=== PATIENT | female | born 1965 | race Caucasian/White ===

== ENCOUNTER 2022-10-06 09:27 | Outpatient (OUT) | payer MEDICARE, MEDICAID, SELFPAY ==
[2022-10-06 10:27] LABS: Bilirubin Urine NEGATIVE (NEGATIVE); Blood Urine NEGATIVE (NEGATIVE); Clarity Urine CLEAR (CLEAR); Color Urine LT. YELLOW (YELLOW); Glucose Urine UA >=1000 mg/dL (NEGATIVE); Ketones Urine NEGATIVE (NEGATIVE); Leukocyte Esterase Urine NEGATIVE (NEGATIVE); Nitrite Urine NEGATIVE (NEGATIVE); Protein Urine NEGATIVE (NEG/TRACE); Urobilinogen Urine 0.2 EU/dL (0.2-1.0)
[2022-10-06 11:05] LABS: RBC Urine 0-2 #/HPF (0-2); WBC Urine 0-2 #/HPF (NONE SEEN)
[2022-10-06 11:06] LABS: Bacteria Urine TRACE #/HPF (NONE SEEN); Cast Seen? NONE SEEN #/LPF (NONE SEEN); Crystals Seen? None Seen #/HPF (None Seen); Mucus Urine NONE SEEN (NONE SEEN); Squamous Epithelial Cell Urine FEW #/LPF (NONE/RARE); Urine Culture Indicated NO
[2022-10-06 11:13] LABS: Microalbumin Urine Random <1.3 mg/dL (<=30.0)
[2022-10-06 12:05] LABS: Alanine Aminotransferase 36 U/L (14-59); Albumin Globulin Ratio 0.9; Albumin Level 3.3 g/dL (3.4-5.0); Alkaline Phosphatase 181 U/L (46-116); Anion Gap 7.9; Aspartate Amino Transferase 15 U/L (15-37); BUN Creatinine Ratio 11.2; Bilirubin Total 0.3 mg/dL (0.2-1.0); Calcium 8.8 mg/dL (8.5-10.1); Carbon Dioxide 32.8 mmol/L (21.0-32.0); Chloride 97 mmol/L (98-107); Cholesterol 89 mg/dL (<=200); Estimated GFR (African America >60 (>=60); Estimated GFR (Non-African Ame 53 (>=60); Globulin 3.7 g/dL; Glucose 234 mg/dL (74-106); HDL Cholesterol 30 mg/dL (40-60); Potassium 3.7 mmol/L (3.5-5.1); Sodium 134 mmol/L (136-145); Triglycerides 194 mg/dL (<=150); VLDL CHOLESTEROL 38.8 mg/dL
[2022-10-06 12:08] LABS: Estimated Average Glucose 160 mg/dL; Glycohemoglobin A1C 7.2 % (4.5-6.2)
== END 2022-10-06 09:28 | disposition home or self-care (01) ==
LOC: LAB 09:36
PROVIDERS: PCP Nurse Practitioner; Visit Provider Nurse Practitioner
DX: E11.9 Type 2 diabetes mellitus without complications (principal)
CPT/HCPCS: 36415; 80053; 80061; 81001; 82043; 83036

== ENCOUNTER 2022-11-19 10:32 | Outpatient (OUT) | payer MEDICARE, MEDICAID, SELFPAY ==
--- NOTE | 2022-11-19 10:37 | MM_ITS ---
Patient: ELMER ELLIS Exam Date: 11/19/2022 : 1965 Gender:F Ordering : CARLO Borrego [employer] Admission #: [id number] Family : Order #: [id number] CLICK HERE TO VIEW EXAM RADIOLOGY REPORT PROCEDURE: MM TOMOSYNTHESIS SCREENING BI COMPARISON: MG MAMM SHEEBA DIAG W CAD DIG, 04/13/2013. INDICATIONS: Screening Calculator Name NCI Breast Cancer Risk Assessment Tool 5 Year Breast Cancer Risk 1.00% Lifetime Breast Cancer Risk 6.50% Personal Breast Cancer No Personal Ovarian Cancer No Treatments None Family Cancers Sister with lung cancer at age 48. LOCATION: [facility] BREAST COMPOSITION: Scattered areas fibroglandular density. FINDINGS: DIAGNOSTIC CATEGORY 2--BENIGN FINDING: RIGHT BREAST: No significant suspicious finding. Scattered benign-appearing calcifications are present. No significant change has occurred. LEFT BREAST: No significant suspicious finding. Scattered benign-appearing calcifications are present. No significant change has occurred. RECOMMENDATIONS: ROUTINE MAMMOGRAM AND CLINICAL EVALUATION IN 12 MONTHS. PLEASE NOTE: A NORMAL MAMMOGRAM DOES NOT EXCLUDE THE POSSIBILITY OF BREAST CANCER. A CLINICALLY SUSPICIOUS PALPABLE LUMP SHOULD BE BIOPSIED. Dictated by: Vishal Ashton M.D. on 11/19/2022 at 13:08 Approved by: Vishal Ashton M.D. on 11/19/2022 at 13:10
== END 2022-11-19 10:33 | disposition home or self-care (01) ==
PROVIDERS: PCP Nurse Practitioner; Visit Provider Nurse Practitioner
DX: Z12.31 Encounter for screening mammogram for malignant neoplasm of breast (principal); Z80.1 Family history of malignant neoplasm of trachea, bronchus and lung
CPT/HCPCS: 77063; 77067

== ENCOUNTER 2023-01-10 10:23 | Outpatient (OUT) | payer MEDICARE, MEDICAID, SELFPAY ==
[2023-01-10 10:56] LABS: Estimated Average Glucose 192 mg/dL; Glycohemoglobin A1C 8.3 % (4.5-6.2)
== END 2023-01-10 10:24 | disposition home or self-care (01) ==
LOC: LAB 10:25
PROVIDERS: PCP Nurse Practitioner; Visit Provider Nurse Practitioner
DX: E11.69 Type 2 diabetes mellitus with other specified complication (principal)
CPT/HCPCS: 36415; 83036

== ENCOUNTER 2023-07-10 15:52 | Emergency (ER) | payer MEDICARE, MEDICAID, SELFPAY ==
[2023-07-10 15:59] VITALS: BP 119/81; PULSE 72; TEMP 36.8; O2SAT 97; BMI 44.6
--- NOTE | 2023-07-10 16:24 | XR_ITS ---
The [address] [address] Patient Name: ELEMR ELLIS MRN: [id number] date: 1965 Sex: F Assigned Patient Location: ER Current Patient Location: ER Accession/Order Number: [id number] Exam Date: 07/10/2023 16:30 Report Date: 07/10/2023 17:32 At the request of: THEE MIKE Procedure: XR ankle RT min 3V EXAM: XR ankle RT min 3V HISTORY: pain COMPARISON: None. TECHNIQUE: AP, oblique, lateral x-ray right ankle FINDINGS: No fracture noted. Symmetric mortise. Mild degenerative spurring around the ankle, prominent posterior and plantar calcaneal spurs. Subcutaneous edema. No definite joint effusion. Multiple joint spurring in the mid foot. XR/XR ankle RT min 3V IMPRESSION: Diffuse edema. Degenerative changes. No evidence of fracture Electronically authenticated by: AFSHAN HOWARD Date: 07/10/2023 17:32
--- OUTSIDE RECORDS SUMMARY | 2023-07-10 16:29 | XMS_ITS | CCD ---
Author Organization [facility] Care Team Providers Care Compounding Scaler Name Role Phone Dawit Ba Primary Care Physician Kittanning Sr., Dawit Aviles Primary Care Provider Kittanning Sr., Dawit Stefan Primary Care Provider SWANZEY SR[facility] HOUSE SR, DAWIT [facility] Care Unavai labLILLY Lennon Attending Unavailable TONY, LILLY Attending Unavailable SWANZEY SR, DAWIT [facility] Primary Care Unavai lable SWANZEY SR, [facility] Care Unavai labLILLY Lennon Attending Unavailable MD Jluis ROBLEDO Attending Unavailable Kittanning, Dawit Hong Referring Unavail able MD Jluis ROBLEDO Attending Unavailable Kittanning Sr., Dawit Aviles Primary Care Provider Mejia, DO Pastor Primary Care Provider DO Bebo Sims Attending Provider MEJIA, DR PASTOR Attending Unavailable SWANZEY, DR PASTOR Consulting Unavailable SWANZEY, DR PASTOR Primary Care Unavailable SWANZEY, DR PASTOR Admitting Unavailable SWANZEY, DR PASTOR Attending Unavailable SWANZEY, DR DAWIT Brunner Unavailable SWANZEY, DR PASTOR Primary Care Unavailable SWANZEY, DR PASTOR Admitting Unavailable SWANZEY, DR PASTOR Primary Care Unavailable VENKAT ., DR KING Attending Unavailable VENKAT ., DR KING Consulting Unavailable VENKAT ., DR KING Admitting Unavailable MARIO, DR MICHOACANO Jcainto Consulting Unavailable SWANZEY, DR PASTRO Attending Unavailable HOUSE, DR PASTOR Primary Care Unavailable SWANZEY, DR PASTOR Admitting Unavailable MALIK NI Attending Unavailable MOSAL, MALIK Attending Unavailable Ludin Blanchard MD Primary Care Provider Salima M[place] OR GLACIER GUIDE, Jenny Unavailable DO Dawit Ba Referring Provider [phone] CJ Brown Attending Provider Jenny Borrego Primary Care Provider [phone] Jenny Borrego Attending Provider [phone] House Sr., Dawit US Primary Care Prov ider House Sr., Dawit US Primary Care Provider LEX PICKENS Attending Unavailable HOUSE SR, DAWIT Hong Primary Care Unavailable LEX PICKENS Referring Unavailable HOUSE SR, DAWIT Hong Primary Care Unavailable LEX PICKENS Attending Unavailable HOUSE SR, DAWIT Hong Primary Care Unavailable LEX PICKENS Referring Unavailable HOUSE SR, DAWIT Hong Primary Care Unavailable JENNY BORREGO Attending Unavailable APLING, WALESKA Mccray Attending Unavailable APLING, WALESKA Mccray Attending Unavailable APLING, WALESKA B Referring Unavailable APLING, WALESKA B Referring Unavailable JENNY BORREGO Attending Unavailable SALIMA, JENNY Attending Unavailable Joanne Brown Attending Unavail able Jenny Borrego Primary Care Unavailable Dawit Ba Referring Unavailable Joanne Brown Admitting Unavail able Allergies Allergy Classification Reported Allergen(s) Allergy Type Date of Onset Reaction(s) Facility (1 source) Gluten Drug allergy (disorder) [facility] (1 source) Wheat preparation Drug Allergy [facility] (1 source) Misc-Food; Translations: [Misc-Food] Food allergy (disorder) [facility] Medications Current Medications Medication Drug Class(es) Dates Sig (Normalized) Sig (Original) acetaminophen 325 mg / HYDROcodone bitartrate 5 mg oral tablet (18 sources) Opioid Agonist take 1 tablet by tyrese th every eight hours as needed HYDROcodone-Acetami nophen 5-300 mg tab Take 1 tablet by mouth every 8 hours as needed for pain. 0 Active take 1-2 tablets by mouth once daily at bedtime as needed HYDROcodone-acetaminophen (NORCO) 5-325 mg per tablet hydrocodone 5 mg-acetaminophen 325 mg tablet TAKE 1 TO 2 TABLETS BY MOUTH EVERY DAY AT BEDTIME NEEDED 0 Active Comment on above: hydrocodone 5 mg-roxanne taminophen 325 mg tablet TAKE 1 TO 2 TABLETS BY MOUTH EVERY DAY AT BEDTIME NEEDED Take 1 tablet by tyrese th every 8 hours as needed for pain. amoxicillin 875 mg / clavulanate 125 mg oral tablet (1 source) Penicillin-class Antibacterial Start: 04-05-19 End: 04-15-19 take 1 tablet by mouth in the morning amoxicillin-clavu lanate (Augmentin) 875-125 MG tablet Indications: Acute non-recurrent sinusitis of other sinus Take 1 tablet (875 mg) by mouth in the morning and 1 tablet (875 mg) before bedtime. Do all this for 10 days. Take with food. 20 tablet 0 04/05/2023 04/15/2023 Active aspirin 81 mg delayed release oral tablet (6 sources) Platelet Aggregation Inhibitor, Nonsteroidal Anti-inflammatory Drug Start: 07-28-19 take 1 mg by mouth once daily aspirin 81 mg Oral EC Tab mg tab(s), Oral, Daily, Refills(s) 0 Start Date: 07/27/21 Status: Ordered Start: 07-27-2021 take 1 mg by mouth once daily aspirin 81 mg Oral EC Tab mg tab(s), Oral, Daily, Refills(s) 0 Start Date: 07/27/21 Status: Ordered ASPIRIN 81 MG ch ewable tablet Aspir-81 0 Active atorvastatin 80 mg oral tablet (17 sources) HMG-CoA Reductase Inhibitor Start: 07-26-2021 take 1 tablet by mouth once daily atorvastatin (LIPITOR) 80 mg tablet Take 80 mg by mouth once daily. 0 07/26/2021 Active Comment on above: Take 80 mg by mouth once daily. Centrum Silver (2 sources) Start: 07-27-2021 Centrum Silver Oral, Daily, Refill(s) 0 Start Date: 07/27/21 Status: Ordered cholecalciferol 0.125 mg oral tablet (9 sources) Vitamin D Start: 07-27-2021 cholecalciferol (VITAMIN D3) 5,000 unit tab Vitamin D3 Refills(s) 0 Start Date: 07/27/21 Status: Ordered 0 07/27/2021 Active Comment on above: Vitamin D3 Refills(s ) 0 Start Date: 07/27/21 Status: Ordered cilostazol 100 mg oral tablet (4 sources) Phosphodiesterase 3 Inhibitor take 1 tablet by mouth twice daily cilostazol (Pletal) 100 MG tablet TAKE 1 TABLET BY MOUTH TWICE A DAY DIRECTED Oral for 90 0 Active clopidogrel 75 mg oral tablet (18 sources) P2Y12 Platelet Inhibitor Start: 07-27-2021 End: 06-22-2023 take 1 tablet by mouth once daily clopidogrel (PLAVIX) 75 mg tablet clopidogrel 75 mg tablet TAKE 1 TABLET BY MOUTH EVERY DAY 0 07/27/2021 Active Comment on above: clopidogrel 75 mg ta blet TAKE 1 TABLET BY MOUTH EVERY DAY Continuous Blood Gluc Sensor (FreeStyle Joelle 2 Sensor) misc (4 sources) Start: 09-23-2022 Continuous Blood Gluc Sensor (FreeStyle Joelle 2 Sensor) [facility]LOOD SUGAR 4 TIMES DAILY 0 09/23/2022 Active dapagliflozin 10 mg oral tablet (4 sources) Sodium-Glucose Cotransporter 2 Inhibitor Start: 02-25-2023 take 1 tablet by mouth in the morning dapagliflozin (Farxiga) 10 MG Indications: Type 2 diabetes mellitus with diabetic neuropathy, with long-term current use of insulin (CMS/HCC) Take 1 tablet (10 mg) by mouth in the morning. 30 tablet 2 02/25/2023 Active diclofenac potassium 50 mg oral tablet (6 sources) Nonsteroidal Anti-inflammatory Drug Start: 06-02-2022 take 50 mg by mouth twice daily Diclofenac Potassium Active 50 MG PO Twice daily June 01, 2022 11:00pm Diclofenac 18 MG capsule Diclofenac 0 Active DULoxetine 60 mg delayed release oral capsule (19 sources) Serotonin and Norepinephrine Reuptake Inhibitor Start: 03-01-2023 take 1 capsule by mouth once daily in the morning DULoxetine (Cymbalta) [address] capsule Indications: Type 2 diabetes mellitus with diabetic neuropathy, unspecified (CMS/HCC) , Diabetic neuropathy, painful (CMS/HCC) , Anxiety and depression (CMS/HCC) Take 1 capsule (30 mg) by mouth in the morning. Total dose is 90mg daily. 90 capsule 1 03/01/2023 Active Start: 07-27-2021 End: 05-30-2023 take 1 capsule by mouth once daily DULoxetine (CYMBALTA) 60 mg capsule duloxetine 60 mg capsule,delayed release TAKE 1 CAPSULE BY MOUTH EVERY DAY 0 07/27/2021 Active Comment on above: duloxetine 60 mg cap tammy,delayed release TAKE 1 CAPSULE BY MOUTH EVERY DAY duloxetine 60 mg Cap-DR (2 sources) Start: 06-06-20 22 take 1 mg by mouth once daily duloxetine 60 mg Cap-DR mg, Oral, Daily, Refills(s) 0 Start Date: 07/27/21 Status: Ordered esomeprazole mag/glycerin (ESOMEP-EZS ORAL) (9 sources) esomeprazole mag/glycerin (ESOMEP-EZS ORAL) Take by mouth. 0 Active Comment on above: Take by mouth. ferrous sulfate 325 mg oral tablet (6 sources) Start: 06-03-19 take 325 mg by mouth once daily Ferrous Sulfate Active 325 MG PO Daily June 01, 2022 11:00pm Luz (13 sources) Histamine-1 Receptor Antagonist Start: 07-28-19 Luz Oral, Refills(s) 0 Start Date: 07/27/21 Status: Ordered take 1 tablet by tyrese th once daily fexofenadine (LUZ) 180 mg tablet fexofenadine 180 mg tablet TAKE 1 TABLET BY MOUTH EVERY DAY 0 Active End: 03-24-2023 fexofenadine (Luz Allerg y) 60 MG tablet Luz 0 03/24/2023 Discontinued (Therapy completed) Comment on above: fexofenadine 180 mg tablet TAKE 1 TABLET BY MOUTH EVERY DAY furosemide 40 mg oral tablet (17 sources) Loop Diuretic Start: 2 furosemide (LASIX) 40 mg tablet furosemide 40 mg tablet TAKE 1 AND 1/2 TABLETS BY MOUTH DAILY 0 07/27/2021 Active Comment on above: furosemide 40 mg tab let TAKE 1 AND 1/2 TABLETS BY MOUTH DAILY gabapentin 800 mg oral tablet (17 sources) Anti-epileptic Agent Start: 4 End: 4 take 1 tablet by mouth every eight hours gabapentin (Neurontin) 800 MG tablet Indications: Type 2 diabetes mellitus with diabetic neuropathy, unspecified (CMS/HCC) , Diabetic neuropathy, painful (CMS/HCC) Take 1 tablet (800 mg) by mouth every 8 (eight) hours 270 tablet 1 03/01/2023 05/30/2023 Active Start: 06-02-2022 take 600 mg by mouth twice fercho ly Gabapentin Active 600 MG PO Twice daily June 01, 2022 11:00pm Start: 08-25-2021 take 2 capsules by out twice daily gabapentin (NEURONTIN) 300 mg capsule Take 600 mg by mouth twice daily. 0 08/25/2021 Active Start: 07-27-2021 take 1 capsule by mo [facility] twice daily gabapentin 300 mg Cap 300 mg = 1 cap(s), Oral, BID, # 60 cap(s), Refills(s) 0 Start Date: 07/27/21 Status: Ordered Comment on above: Take 600 mg by mouth twice daily. Humalog 75/25 Injection-Insulin (1 source) Start: 07-27-2021 Humalog 75/25 Injection-Insuli n unit(s), SubCutaneous, BIDAC, Refills(s) 0 Start Date: 07/27/21 Status: Ordered Insulin Aspart Prot & Aspart (NOVOLOG 70/30 FLEXPEN RELION SC) (4 sources) inject 75 [IU] by subcutaneous injection in the morning Insulin Aspart Prot & Aspart (NOVOLOG 70/30 FLEXPEN RELION SC) Inject 75 Units under the skin in the morning and 75 Units before bedtime. 0 Active 3 ml insulin aspart protamine, human 70 unt/ml / insulin aspart, human 30 unt/ml pen injector (2 sources) Insulin Analog Start: 06-02-2022 Insulin Asp Prt-Insulin Aspart (Novolog Mix 70-30flexpen U-100) 100 unit/mL (70-30) insulin pen Active 70 UNIT SUBCUT Twice daily June 01, 2022 11:00pm insulin lispro 25 unt/ml / insulin lispro protamine, human 75 unt/ml injectable suspension (12 sources) Insulin Analog Start: 07-27-2021 End: 03-24-2023 insulin 75/25 lispro protamine/lispro units/mL (HUMALOG MIX 75-25,U-100,INSU LN) 100 units/mL susp as directed. 0 07/27/2021 Active Start: 07-27-2021 Humalog 75/25 Injection-Insulin unit(s), SubCutaneous, BIDAC, Refills(s) 0 Start Date: 07/27/21 Status: Ordered Comment on above: as directed. metFORMIN hydrochloride 1000 mg oral tablet (11 sources) Biguanide Start: take 1 tablet by mouth twice daily metFORMIN (GLUCOPHAGE) 1,000 mg tablet Take 1,000 mg by mouth twice daily. 0 09/13/2021 Active Comment on above: Take 1,000 mg by tyrese th twice daily. methocarbamol 500 mg oral tablet (15 sources) Muscle Relaxant Start: take 500 mg by mouth twice daily Methocarbamol Active 500 MG PO Twice daily June 01, 2022 11:00pm Start: 07-27-2021 take 1 mg by mouth f our times daily Robaxin 500 mg Tab mg tab(s), Oral, QID, Refills(s) 0 Start Date: 07/27/21 Status: Ordered End: 03-24-2023 methocarbamol (Robaxin) 500 MG tablet 1 (one) time each day at the same time. 0 03/24/2023 Discontinued (Therapy completed) Comment on above: Take 500 mg by mouth four times daily. 24 hr metoprolol succinate 25 mg extended release oral tablet (20 sources) beta-Adrenergic Zhao Start: 01-19-2023 take 1 tablet by mouth every twenty-four hours in the morning metoprolol succinate XL (Toprol-XL) 25 MG 24 hr tablet Take 25 mg by mouth in the morning. 0 01/19/2023 Active Start: 07-27-2021 End: 06-16-2022 take 1 tablet by mouth once daily metoprolol succinate ER (TOPROL XL) 25 mg 24 hr tablet metoprolol succinate ER 25 mg tablet,extended release 24 hr TAKE 1 TABLET BY MOUTH DAILY (ALONG WITH THE 50MG TABLET FOR 75 MG TOTAL DAILY) 0 07/27/2021 Active Start: 07-27-2021 take 1 tablet by tyrese once daily metoprolol succinate ER (TOPROL XL) 50 mg 24 hr tablet metoprolol succinate ER 50 mg tablet,extended release 24 hr TAKE 1 TABLET BY MOUTH EVERY DAY 0 07/27/2021 Active Start: 07-27-2021 take 1 tablet by tyrese th once daily metoprolol succinate ER (TOPROL XL) 50 mg 24 hr tablet metoprolol succinate ER 50 mg tablet,extended release 24 hr TAKE 1 TABLET BY MOUTH EVERY DAY 0 07/27/2021 Active Start: 07-27-2021 take 1 tablet by tyrese th once daily metoprolol succinate ER (TOPROL XL) 25 mg 24 hr tablet metoprolol succinate ER 25 mg tablet,extended release 24 hr TAKE 1 TABLET BY MOUTH DAILY (ALONG WITH THE 50MG TABLET FOR 75 MG TOTAL DAILY) 0 07/27/2021 Active End: 03-24-2023 take 1 tablet by mouth in the morning metoprolol tartrate (Lopressor) 50 MG tablet Take 50 mg by mouth in the morning. 0 03/24/2023 Discontinued (Therapy completed) Comment on above: metoprolol succinate ER 25 mg tablet,extended release 24 hr TAKE 1 TABLET BY MOUTH DAILY (ALONG WITH THE 50MG TABLET FOR 75 MG TOTAL DAILY) metoprolol succinate ER 50 mg tablet,extended release 24 hr TAKE 1 TABLET BY MOUTH EVERY DAY Multiple Vitamins-Minerals (Centrum Silver 50+Women) tablet (4 sources) Multiple Vitamins-Minerals (Centrum Silver 50+Women) tablet Orally 0 Active odnjmcwk-tyc-aqex-FA- lutein (CENTRUM SILVER WOMEN) 8 mg iron-400 mcg-300 mcg tab (9 sources) zbtdtpfu-mmx-jgx n-FA -lutein (CENTRUM SILVER WOMEN) 8 mg iron-400 mcg-300 mcg tab MV with Tmd-Illiypzi-Onpnfl (CENTRUM SILVER) 0.4 mg-300 mcg- 250 mcg tab (9 sources) Start: 07-28-19 22 MV with Onq-Zvcnaovh-Fodsfu (CENTRUM SILVER) 0.4 mg-300 mcg- 250 mcg tab Take by mouth. 0 07/27/2021 Active Comment on above: Take by mouth. pantoprazole 40 mg delayed release oral tablet (5 sources) Proton Pump Inhibitor Start: 06-17-19 23 take 40 mg by mouth once daily Pantoprazole Active 40 MG PO Daily June 15, 2022 11:00pm rivaroxaban 10 mg oral tablet (17 sources) Factor Xa Inhibitor Start: 07-28-19 22 rivaroxaban (XARELTO) 10 mg tablet Xarelto 10 mg tablet 0 07/27/2021 Active Comment on above: Xarelto 10 mg tablet Vitamin D3 (2 sources) Start: 07-28-19 22 Vitamin D3 Refills(s) 0 Start Date: 07/27/21 Status: Ordered Completed/Discontinued Medications Medication Drug Class(es) Dates Sig (Normalized) Sig (Original) acetaminophen 300 mg / codeine phosphate 30 mg oral tablet (2 sources) Opioid Agonist End: 03-24-2023 acetaminophen-codein e (TYLENOL/CODEINE #3) 300-30 MG tablet every 6 (six) hours. 0 03/24/2023 Discontinued (Therapy completed) fluconazole 150 mg oral tablet (2 sources) Azole Antifungal Start: 02-15-2023 End: 03-24-2023 fluconazole (Diflucan) 150 MG tablet Indications: Antibiotic-induced yeast infection One time dose , then repeat again in 3 days 2 tablet 0 02/15/2023 03/24/2023 Discontinued (Therapy completed) insulin isophane, human 70 unt/ml / insulin, regular, human 30 unt/ml injectable suspension (2 sources) Insulin End: 03-24-2023 insulin NPH-insulin regular (HumuLIN 70/30) (70-30) 100 UNIT/ML injection Subcutaneous 0 03/24/2023 Discontinued (Therapy completed) iv contrast (will be provided with radiology test) (4 sources) Start: 10-16-2022 End: 10-17-2022 iv contrast (will be provided with radiology test) Indications: Renal mass, right CT kidney wow Inject, intravenously, once for 1 dose.No IV access, insert saline lock prior to the beginning of sedation, infusion, injection of imaging exam. Discontinue saline lock post exam. If Pt. has a central line or IVAD, may access for administration according to line specific nursing protocol. Once exam is complete flush line and de-access according to line specific nursing protocol in the CT contrast administration guidelines link. 1 Each 0 10/16/2022 10/17/2022 Start: 10-16-2022 End: 10-17-2022 iv contrast (will be provide d with radiology test) Indications: Renal mass, right CT kidney wow Inject, intravenously, once for 1 dose.No IV access, insert saline lock prior to the beginning of sedation, infusion, injection of imaging exam. Discontinue saline lock post exam. If Pt. has a central line or IVAD, may access for administration according to line specific nursing protocol. Once exam is complete flush line and de-access according to line specific nursing protocol in the CT contrast administration guidelines link. 1 Each 0 10/16/2022 10/17/2022 Active Start: 04-09-2022 End: 04-10-2022 iv contrast (will be provide d with radiology test) CT kidney wow Inject, intravenously, once for 1 dose.No IV access, insert saline lock prior to the beginning of sedation, infusion, injection of imaging exam. Discontinue saline lock post exam. If Pt. has a central line or IVAD, may access for administration according to line specific nursing protocol. Once exam is complete flush line and de-access according to line specific nursing protocol in the CT contrast administration guidelines link. 1 Each 0 04/09/2022 04/10/2022 Start: 03-16-2022 End: 03-17-2022 iv contrast (will be provide d with radiology test) CT kidney wow Inject, intravenously, once for 1 dose.No IV access, insert saline lock prior to the beginning of sedation, infusion, injection of imaging exam. Discontinue saline lock post exam. If Pt. has a central line or IVAD, may access for administration according to line specific nursing protocol. Once exam is complete flush line and de-access according to line specific nursing protocol in the CT contrast administration guidelines link. 1 Each 0 03/16/2022 03/17/2022 Comment on above: CT kidney wow Inject , intravenously, once for 1 dose.No IV access, insert saline lock prior to the beginning of sedation, infusion, injection of imaging exam. Discontinue saline lock post exam. If Pt. has a central line or IVAD, may access for administration according to line specific nursing protocol. Once exam is complete flush line and de-access according to line specific nursing protocol in the CT contrast administration guidelines link. sucralfate 1000 mg oral tablet (4 sources) Aluminum Complex Start: 06-03-19 23 End: 03-24-19 24 take 1 g by mouth at bedtime Sucralfate Discontinued 1 GM PO before meals and at bedtime June 01, 2022 11:00pm June 16, 2022 8:43am Problems Active Problems Problem Classification Problem Date Documented Da te Episodic/Chronic Allergic reactions (4 sources) Allergic condition; Translations: [Allergy, unspecified, initial encounter] Onset: 3 02-02-2023 Episodic Anxiety disorders (4 sources) Mixed anxiety and depressive disorder; Translations: [Anxiety disorder, unspecified] Onset: 3 02-02-2023 Chronic Biliary tract disease (6 sources) Gallstone; Translations: [Calculus of gallbladder without cholecystitis without obstruction] Onset: 3 07-27-2021 Episodic Cancer of kidney and renal pelvis (6 sources) Malignant tumor of kidney; Translations: [Malignant neoplasm of unspecified kidney, except renal pelvis] Onset: 3 03-24-2023 Chronic Chronic obstructive pulmonary disease and bronchiectasis (8 sources) Chronic bronchitis; Translations: [Unspecified chronic bronchitis] Onset: 3 02-02-2023 Chronic Coagulation and hemorrhagic disorders (11 sources) Factor V Leiden mutation; Translations: [Activated protein C resistance] Onset: 3 Chronic Coronary atherosclerosis and other heart disease (20 sources) Coronary arteriosclerosis; Translations: [Atherosclerotic heart disease of [place] coronary artery without angina pectoris] Onset: 0 Chronic Deficiency and other anemia (1 source) Iron deficiency anemia secondary to blood loss (chronic); Translations: [Iron deficiency anemia secondary to blood loss (chronic)] Onset: 4 Chronic Deficiency and other anemia (1 source) Iron deficiency anemia; Translations: [Iron deficiency anemia, unspecified] 03-09-2023 Episodic Deficiency and other anemia (2 sources) Iron deficiency anemia, unspecified; Translations: [Iron deficiency anemia, unspecified] Onset: 4 04-13-2023 Episodic Diabetes mellitus with complications (20 sources) Type 2 diabetes mellitus with diabetic neuropathy, unspecified; Translations: [Type 2 diabetes mellitus] Onset: 3 Resolved: 4 Chronic Diabetes mellitus without complication (12 sources) Diabetes mellitus; Translations: [Type 2 diabetes mellitus] Onset: 3 07-27-2021 Chronic Disorders of lipid metabolism (10 sources) Mixed hyperlipidemia; Translations: [Hypertriglyceridemia] Onset: 0 Chronic Fluid and electrolyte disorders (1 source) Other disorders of electrolyte and fluid balance, not elsewhere classified; Translations: [OTHER D/O ELECTROLYTE AND FL BAL NEC] Onset: 3 Episodic Fracture of lower limb (4 sources) Closed fracture of left ankle; Translations: [Other fracture of left lower leg, initial encounter for closed fracture] Onset: 2 Episodic Gastrointestinal hemorrhage (2 sources) Gastrointestinal hemorrhage, unspecified; Translations: [Gastrointestinal hemorrhage, unspecified] Onset: 3 Episodic Genitourinary symptoms and ill-defined conditions (8 sources) Retention of urine; Translations: [Retention of urine, unspecified] Onset: 2 Episodic Joint disorders and dislocations; trauma-related (8 sources) Chondromalacia of left patella; Translations: [Chondromalacia patellae, left knee] Onset: 3 10-05-2022 Chronic Joint disorders and dislocations; trauma-related (4 sources) Derangement of right knee; Translations: [Unspecified internal derangement of right knee] Onset: 3 10-05-2022 Chronic Mood disorders (2 sources) Depressive disorder 07-27-2021 Chronic Mycoses (4 sources) Candidiasis of vagina; Translations: [Yeast infection of the vagina] Onset: 3 02-02-2023 Episodic Noninfectious gastroenteritis (4 sources) Noninfective gastroenteritis and colitis, unspecified; Translations: [NONINFECTIVE GE AND COLITIS UNS] Onset: 3 Episodic Osteoarthritis (18 sources) Arthritis; Translations: [Arthritis of left acromioclavicular joint] Onset: 3 07-27-2021 Chronic Osteoporosis (4 sources) Osteoporosis; Translations: [Age-related osteoporosis without current pathological fracture] Onset: 3 02-02-2023 Chronic Other circulatory disease (4 sources) H/O: varicose veins; Translations: [Personal history of other diseases of the circulatory system] Onset: 3 02-02-2023 Episodic Other diseases of kidney and ureters (12 sources) Disorder of kidney and/or ureter; Translations: [Other specified disorders of kidney and ureter] Onset: 2 Chronic Other diseases of kidney and ureters (20 sources) Renal mass; Translations: [Other specified disorders of kidney and ureter] Onset: 3 03-05-2022 Chronic Other diseases of kidney and ureters (6 sources) Other specified disorders of kidney and ureter; Translations: [OTHER SPEC DISORDERS KIDNEY URETER] Onset: 2 Chronic Other gastrointestinal disorders (4 sources) Intestinal malabsorption; Translations: [Intestinal malabsorption, unspecified] Onset: 3 10-05-2022 Chronic Other lower respiratory disease (4 sources) Chronic cough; Translations: [Chronic cough] Onset: 3 02-02-2023 Episodic Other nervous system disorders (4 sources) Neuropathy; Translations: [Polyneuropathy, unspecified] Onset: 3 02-02-2023 Chronic Other nutritional; endocrine; and metabolic disorders (9 sources) Morbid obesity; Translations: [Morbid (severe) obesity due to excess calories] Onset: 3 Chronic Other nutritional; endocrine; and metabolic disorders (2 sources) Morbid (severe) obesity due to excess calories; Translations: [Morbid (severe) obesity due to excess calories] Onset: 3 Chronic Other nutritional; endocrine; and metabolic disorders (4 sources) Severe obesity; Translations: [Morbid (severe) obesity due to excess calories] Onset: 3 02-02-2023 Chronic Other screening for suspected conditions (not mental disorders or infectious disease) (9 sources) Patient encounter status; Translations: [Encounter for screening for other disorder] Onset: 3 10-15-2022 Episodic Other upper respiratory infections (2 sources) Acute sinusitis; Translations: [Other acute sinusitis] Onset: 4 04-05-2023 Episodic Peripheral and visceral atherosclerosis (6 sources) Peripheral vascular disease, unspecified; Translations: [Intermittent claudication] Onset: 0 Chronic Residual codes; unclassified (4 sources) Obstructive sleep apnea syndrome; Translations: [Obstructive sleep apnea (adult) (pediatric)] Onset: 3 02-02-2023 Chronic Residual codes; unclassified (1 source) Family history of malignant neoplasm of kidney; Translations: [Family history of malignant neoplasm of kidney] 10-16-2022 Episodic Residual codes; unclassified (4 sources) Family history of malignant neoplasm of lung; Translations: [Family history of malignant neoplasm of trachea, bronchus and lung] Onset: 3 02-02-2023 Episodic Spondylosis; intervertebral disc disorders; other back problems (1 source) Other intervertebral disc degeneration, lumbosacral region; Translations: [OTH IV DISC DEGEN LUMBOSACRAL RGN] Onset: 2 Chronic Spondylosis; intervertebral disc disorders; other back problems (4 sources) Chronic back pain ; Translations: [Dorsalgia, unspecified] Onset: 3 02-02-2023 Episodic Substance-related disorders (14 sources) Smoker; Translations: [Nicotine dependence, unspecified, uncomplicated] Onset: Resolved: 10-09-2020 Chronic Comment on above: Added secondary to d ocumentation in Social History. Past or Other Problems Problem Classification Problem Date Documented Da te Episodic/Chronic Cancer of kidney and renal pelvis (4 sources) History of malignant neoplasm of retroperitoneum; Translations: [Personal history of other malignant neoplasm of kidney] Onset: 02-02-2023 Resolved: 03-24-2023 03-24-2023 Episodic Cardiac dysrhythmias (4 sources) Intermittent palpitations; Translations: [Palpitations] Onset: 04-27-2019 02-02-2023 Episodic Deficiency and other anemia (4 sources) Anemia; Translations: [Anemia, unspecified] Onset: 10-05-2022 02-02-2023 Episodic Mood disorders (4 sources) Mood disorders Onset: 03-24-2023 03-24-2023 Other diseases of kidney and ureters (4 sources) Kidney disease; Translations: [Disorder of kidney and ureter, unspecified] Onset: 04-19-2022 02-02-2023 Episodic Other lower respiratory disease (4 sources) Dyspnea on exertion; Translations: [Other forms of dyspnea] Onset: 04-27-2019 02-02-2023 Episodic Other upper respiratory infections (4 sources) Sinusitis; Translations: [Chronic sinusitis, unspecified] Onset: 02-02-2023 Resolved: 03-24-2023 03-24-2023 Chronic Phlebitis; thrombophlebitis and thromboembolism (6 sources) Personal history of other venous thrombosis and embolism; Translations: [H/O: Deep vein thrombosis] Onset: 04-27-2019 Episodic Pneumonia (except that caused by tuberculosis or sexually transmitted disease) (4 sources) Pneumonia; Translations: [Pneumonia, unspecified organism] Onset: 02-02-2023 Resolved: 03-24-2023 03-24-2023 Episodic Residual codes; unclassified (6 sources) Tobacco user; Translations: [Tobacco use] Onset: 04-19-2022 03-24-2023 Episodic Results Test Name Value Interpretation Reference Range Facility Complete Blood Count Auto Di ffon 07-07-2023 Basophils (Bld) [#/Vol] 0.1 10*3/uL Normal 0.0-0.2 [facility] Comment on above: Result Comment: PERF ORMED BY: [place] [address] PATHOLOGIST KAIAWHINA KURA KAUPAPA MAORI YU ACOSTA M.D. Performed By: #### C MP, FE and TIBC, CBC, JAQUELINE, [id number] #### [address] #### EPO, METH #### [facility] , Basophils/100 WBC (Bld) 0.6 % Normal . [facility] Comment on above: Performed By: #### C MP, FE and TIBC, CBC, JAQUELINE, [id number] #### [address] #### EPO, METH #### [facility] , Eosinophils (Bld) [#/Vol] 0.2 10*3/uL Normal 0.0-0.45 [facility] Comment on above: Performed By: #### C MP, FE and TIBC, CBC, JAQUELINE, [id number] #### [address] #### EPO, METH #### [facility] , Eosinophils/100 WBC (Bld) 1.8 % Normal . [facility] Comment on above: Performed By: #### C MP, FE and TIBC, CBC, JAQUELINE, [id number] #### [address] #### EPO, METH #### [facility] , Erythrocyte distribution width (RBC) [Ratio] 14.8 % Normal 11.9-15.3 [facility] Comment on above: Performed By: #### C MP, FE and TIBC, CBC, JAQUELINE, [id number] #### [place] [address] [place] #### EPO, METH #### [facility] , Hematocrit (Bld) [Volume fraction] 43.6 % Normal 34.0-46.4 [facility] Comment on above: Performed By: #### C MP, FE and TIBC, CBC, JAQUELINE, [id number] #### [place] [address] [place] #### EPO, METH #### [facility] , Hemoglobin (Bld) [Mass/Vol] 14.4 g/dL Normal 11.8-15.4 [facility] Comment on above: Performed By: #### C MP, FE and TIBC, CBC, JAQUELINE, [id number] #### [address] #### EPO, METH #### [facility] , Lymphocytes (Bld) [#/Vol] 2.7 10*3/uL Normal 1.00-4.8 [facility] Comment on above: Performed By: #### C MP, FE and TIBC, CBC, JAQUELINE, [id number] #### [place] [address] [place] #### EPO, METH #### [facility] , Lymphocytes/100 WBC (Bld) 24.7 % Normal . [facility] Comment on above: Performed By: #### C MP, FE and TIBC, CBC, JAQUELINE, [id number] #### [place] [address] [place] #### EPO, METH #### [facility] , MCH (RBC) [Entitic mass] 30.5 pg Normal 24.7-34.3 [facility] Comment on above: Performed By: #### C MP, FE and TIBC, CBC, JAQUELINE, [id number] #### [place] [address] [place] #### EPO, METH #### [facility] , MCV (RBC) [Entitic vol] 92.1 fL Normal 80-100 [facility] Comment on above: Performed By: #### C MP, FE and TIBC, CBC, JAQUELINE, [id number] #### [address] #### EPO, METH #### [facility] , Mean Corpuscular HGB Conc 33.1 g/dL Normal 32.0-35.0 [facility] Comment on above: Performed By: #### C MP, FE and TIBC, CBC, JAQUELINE, [id number] #### [address] #### EPO, METH #### [facility] , Monocytes (Bld) [#/Vol] 0.6 10*3/uL Normal 0.0-0.8 [facility] Comment on above: Performed By: #### C MP, FE and TIBC, CBC, JAQUELINE, [id number] #### [place] [address] [place] #### EPO, METH #### [facility] , Monocytes/100 WBC (Bld) 5.3 % Normal . [facility] Comment on above: Performed By: #### C MP, FE and TIBC, CBC, JAQUELINE, [id number] #### [address] #### EPO, METH #### [facility] , Neutrophils (Bld) [#/Vol] 7.5 10*3/uL Normal 1.8-7.7 [facility] Comment on above: Performed By: #### C MP, FE and TIBC, CBC, JAQUELINE, [id number] #### [place] [address] [place] #### EPO, METH #### [facility] , Neutrophils/100 WBC (Bld) 67.6 % Normal . [facility] Comment on above: Performed By: #### C MP, FE and TIBC, CBC, JAQUELINE, [id number] #### [address] #### EPO, METH #### [facility] , NRBC% 0.1 /100{WBC} Normal 0-0.5 [facility] Comment on above: Performed By: #### C MP, FE and TIBC, CBC, JAQUELINE, [id number] #### [place] [address] [place] #### EPO, METH #### [facility] , Platelet mean volume (Bld) [Entitic vol] 9.7 fL Normal 6.3-10.7 [facility] Comment on above: Performed By: #### C MP, FE and TIBC, CBC, JAQUELINE, [id number] #### [address] #### EPO, METH #### [facility] , Platelets (Bld) [#/Vol] 169 10*3/uL Normal 150-450 [facility] Comment on above: Performed By: #### C MP, FE and TIBC, CBC, JAQUELINE, [id number] #### [address] #### EPO, METH #### [facility] , RBC (Bld) [#/Vol] 4.73 10*6/uL Normal 3.60-5.00 [facility] Comment on above: Performed By: #### C MP, FE and TIBC, CBC, JAQUELINE, [id number] #### [place] [address] [place] #### EPO, METH #### [facility] , WBC (Bld) [#/Vol] 11.0 10*3/uL Normal 3.8-11.6 [facility] Comment on above: Performed By: #### C MP, FE and TIBC, CBC, JAQUELINE, [id number] #### [address] #### EPO, METH #### [facility] , Comprehensive Metabolic Pane mikki 07-07-2023 Albumin [Mass/Vol] 3.8 g/dL Normal 3.5-5.7 [facility] Comment on above: Performed By: #### C MP, FE and TIBC, CBC, JAQUELINE, [id number] #### [place] [address] [place] #### EPO, METH #### [facility] , Albumin/Globulin [Mass ratio] 1.4 {ratio} Normal [facility] Comment on above: Performed By: #### C MP, FE and TIBC, CBC, JAQUELINE, [id number] #### [address] #### EPO, METH #### [facility] , ALP [Catalytic activity/Vol] 167 U/L High 34-104 [facility] Comment on above: Performed By: #### C MP, FE and TIBC, CBC, JAQUELINE, [id number] #### [address] #### EPO, METH #### [facility] , ALT [Catalytic activity/Vol] 21 U/L Normal 7-52 [facility] Comment on above: Performed By: #### C MP, FE and TIBC, CBC, JAQUELINE, [id number] #### [place] [address] [place] #### EPO, METH #### [facility] , Anion gap [Moles/Vol] 13.5 mmol/L Normal 6.0-15.0 [facility] Comment on above: Performed By: #### C MP, FE and TIBC, CBC, JAQUELINE, [id number] #### [place] [address] [place] #### EPO, METH #### [facility] , AST [Catalytic activity/Vol] 15 U/L Normal 13-39 [facility] Comment on above: Performed By: #### C MP, FE and TIBC, CBC, JAQUELINE, [id number] #### [place] [address] [place] #### EPO, METH #### [facility] , Bilirubin [Mass/Vol] 0.4 mg/dL Normal 0.3-1.0 [facility] Comment on above: Performed By: #### C MP, FE and TIBC, CBC, JAQUELINE, [id number] #### [facility] [address] [place] [address] [place] #### EPO, METH #### [facility] , Calcium [Mass/Vol] 8.6 mg/dL Normal 8.6-10.3 [facility] Comment on above: Performed By: #### C MP, FE and TIBC, CBC, JAQUELINE, [id number] #### [place] [address] [place] #### EPO, METH #### [facility] , Chloride [Moles/Vol] 102 mmol/L Normal 98-107 [facility] Comment on above: Performed By: #### C MP, FE and TIBC, CBC, JAQUELINE, [id number] #### [facility] [address] [place] [address] [place] #### EPO, METH #### [facility] , CO2 [Moles/Vol] 26.8 mmol/L Normal 21.0-31.0 [facility] Comment on above: Performed By: #### C MP, FE and TIBC, CBC, JAQUELINE, [id number] #### [place] [address] [place] #### EPO, METH #### [facility] , Creatinine [Mass/Vol] 1.18 mg/dL Normal 0.60-1.20 [facility] Comment on above: Performed By: #### C MP, FE and TIBC, CBC, JAQUELINE, [id number] #### [place] [address] [place] #### EPO, METH #### [facility] , Creatinine Clr Calc Pharmacy 65.67 Normal [facility] Comment on above: Performed By: #### C MP, FE and TIBC, CBC, JAQUELINE, [id number] #### [place] [address] [place] #### EPO, METH #### [facility] , GFR/1.73 sq M.predicted MDRD (S/P/Bld) [Vol rate/Area] 53.873 mL/min/{1.73_m2} Normal [facility] Comment on above: Performed By: #### C MP, FE and TIBC, CBC, JAQUELINE, [id number] #### [place] [address] [place] #### EPO, METH #### [facility] , Globulin (S) [Mass/Vol] 2.8 g/dL Normal [facility] Comment on above: Performed By: #### C MP, FE and TIBC, CBC, JAQUELINE, [id number] #### [place] [address] [place] #### EPO, METH #### [facility] , Glucose [Mass/Vol] 215 mg/dL High 70-100 [facility] Comment on above: Result Comment: [place] Glucose Reference Range is dependent on time and content of last meal. Glucose of more than 200 mg/dL in a nonstressed, ambulatory subject supports the diagnosis of Diabetes Mellitus. ADA recommended reference range Performed By: #### C MP, FE and TIBC, CBC, JAQUELINE, [id number] #### [place] [address] [place] #### EPO, METH #### [facility] , Potassium [Moles/Vol] 4.3 mmol/L Normal 3.5-5.1 [facility] Comment on above: Performed By: #### C MP, FE and TIBC, CBC, JAQUELINE, [id number] #### [address] #### EPO, METH #### [facility] , Protein [Mass/Vol] 6.6 g/dL Normal 6.4-8.9 [facility] Comment on above: Performed By: #### C MP, FE and TIBC, CBC, JAQUELINE, [id number] #### [place] [address] [place] #### EPO, METH #### [facility] , Sodium [Moles/Vol] 138 mmol/L Normal 136-145 [facility] Comment on above: Performed By: #### C MP, FE and TIBC, CBC, JAQUELINE, [id number] #### [place] [address] [place] #### EPO, METH #### [facility] , Urea nitrogen [Mass/Vol] 21 mg/dL Normal 7-25 [facility] Comment on above: Performed By: #### C MP, FE and TIBC, CBC, JAQUELINE, [id number] #### [place] [address] [place] #### EPO, METH #### [facility] , Ferritinon 07-07-2023 Ferritin [Mass/Vol] 154.7 ng/mL Normal 11.0-306.8 [facility] Comment on above: Performed By: #### C MP, FE and TIBC, CBC, JAQUELINE, [id number] #### [place] [address] [place] #### EPO, METH #### [facility] , Iron and TIBC Profileon 06-21 % Iron Saturation 33.9 % Normal 20-50 [facility] Comment on above: Performed By: #### C MP, FE and TIBC, CBC, JAQUELINE, [id number] #### [place] [address] [place] #### EPO, METH #### [facility] , Iron [Mass/Vol] 84 ug/dL Normal 50-212 [facility] Comment on above: Performed By: #### C MP, FE and TIBC, CBC, JAQUELINE, [id number] #### [place] [address] [place] #### EPO, METH #### [facility] , Total Iron Binding Capacity 248 ug/dL Low 255-450 [facility] Comment on above: Performed By: #### C MP, FE and TIBC, CBC, JAQUELINE, [id number] #### [place] [address] [place] #### EPO, METH #### [facility] , Transferrin [Mass/Vol] 177 mg/dL Low 203-362 [facility] Comment on above: Performed By: #### C MP, FE and TIBC, CBC, JAQUELINE, [id number] #### [place] [address] [place] #### EPO, METH #### [facility] , Vit. B12/Folate Profileon Cobalamin (Vitamin B12) [Mass/Vol] 493 pg/mL Normal 180-914 [facility] Comment on above: Performed By: #### C MP, FE and TIBC, CBC, JAQUELINE, [id number] #### [place] [address] [place] #### EPO, METH #### [facility] , Folate 30.0 ng/mL Normal >5.9 [facility] Comment on above: Result Comment: Sherry te reference range: >5.9 ng/ml The WHO technical consultation on folate and vitamin b12 deficiencies has determined that folate concentrations less than 4 ng/ml are considered deficient. PERFORMED BY: [facility] [address] [place] [address] PATHOLOGIST KAIAWHINA KURA KAUPAPA MAORI YU ACOSTA M.D. Performed By: #### C MP, FE and TIBC, CBC, JAQUELINE, [id number] #### [place] [address] [place] #### EPO, METH #### [facility] , CREATININE BLDon 05-17-2023 Creatinine [Mass/Vol] 1.19 mg/dL High 0.58-0.96 [facility] Comment on above: Order Comment: Speci men Type: BLOOD SPECIMEN Ordering Facility: [facility] Address: [address] [place] [address] Performed By: #### C RET1 #### [facility] CLIA [id number] [address] [place] [address] Creatinine and Glomerular filtration rate.predicted panel (S/P/Bld) 53 mL/min/1.73m??? Low >=60 [facility] Comment on above: Order Comment: Speci men Type: BLOOD SPECIMEN Ordering Facility: [facility] Address: [address] [place] [address] Result Comment: Terri mated Glomerular Filtration Rate (eGFR) is calculated using the 2020 CKD-EPI creatinine equation. This equation utilizes serum creatinine, sex, and age as parameters. The creatinine assay has traceable calibration to isotope dilution-mass spectrometry. Refer to KDIGO guidelines for clinical interpretation. In patients with unstable renal function, e.g. those with acute kidney injury, the eGFR may not accurately reflect actual GFR. Performed By: #### C RET1 #### [facility] CLIA [id number] [address] [place], [place] [id number] CT KIDNEY WO/W IVCONon 05-16 CT KIDNEY WO/W IVCON * * *Final Report* * * DATE OF EXAM: May 17 2023 2:01PM [facility] 0546 - CT KIDNEY WO/W IVCON / PROCEDURE REASON: multiple diagnoses * * * * Physician Interpretation * * * * RESULT: EXAMINATION: CT ABDOMEN (KIDNEY) WITHOUT AND WITH IV CONTRAST CLINICAL HISTORY: Follow-up renal mass TECHNIQUE: Spiral imaging in three phases through the kidneys and including the abdomen was performed utilizing IV contrast only. No oral contrast was given. Arterial phase MIP, and nephrographic phase oblique coronal and sagittal reformations were created from thin-slice images under physician supervision on the imaging modality workstation. MQ: [id number] Contrast: IV: 120 ml of Omnipaque 350 Oral Contrast: None CT Radiation dose: Integrated dose-length product (DLP) for this visit = 3069 mGy*cm. CT Dose Reduction Employed: Automated exposure control(AEC) and iterative recon COMPARISON: CT abdomen 10/07/2022 and 04/05/2022 RESULT: Renal findings RIGHT kidney and vasculature: Right kidney and ureter: No nephrolithiasis or hydronephrosis. Again seen is a heterogeneously enhancing solid mass arising from the medial right renal upper pole, measuring 3 x 3.7 cm on series 6, image 58 (previously 3 x 3.4 cm at a similar location). No new renal masses. Right renal vasculature: There are 3 right renal arteries, all of which are patent. There are 2 right renal veins, both which are patent. Right adrenal: Normal, no nodules or thickening LEFT kidney and vasculature: Left kidney and ureter: No nephrolithiasis or hydronephrosis. No suspicious renal mass. Left renal vasculature: There are 2 left renal arteries, both of which are patent. Single patent preaortic left renal vein. Left adrenal: Normal, no nodules or thickening Retroperitoneal lymphadenopathy and IVC involvement: No retroperitoneal lymphadenopathy. Patent inferior vena cava. Abdomen: Liver: Normal liver morphology. No suspicious hepatic mass.. Biliary: No bile duct dilation. The gallbladder is absent. Spleen: No mass. No splenomegaly. Pancreas: No mass or duct dilation. GI tract: Imaged bowel loops are normal in caliber. Lymph nodes (other): No abdominal lymphadenopathy. Mesentery/Peritoneum: No ascites or mass. Retroperitoneum: No mass. Vasculature (other): - Abdominal aorta: No aneurysm. - Celiac and SMA: Patent without stenosis. - Portal venous system (SMV, splenic vein, portal vein and branches): Patent. - Hepatic veins: Patent. - IVC: Patent IVC without thrombus. Bones/Soft Tissues: Degenerative changes involve the lumbar spine. No destructive lytic or blastic osseous abnormality. Lower thorax: Unremarkable. Airplane Mechanic Apprentice (topogram) images: No additional findings. IMPRESSION: 1. Since 10/07/2022, continued mild increase in size of a 3.7 cm right renal neoplasm (previously 3.4 cm). 2. Patent renal veins and inferior vena cava. No abdominal metastatic disease. Transcribe Date/Time: May 17 2023 2:49P Dictated by: TARSHA UTRK MD This examination was interpreted and the report reviewed and electronically signed by: TARSHA TURK MD on May 17 2023 4:15PM EST Thank you for allowing us to participate in the care of your patient. Should there be any questions regarding this interpretation, please call [phone]. If you are unable to reach us at the number above, please feel free to contact [facility] at [phone]. [id number] Normal [facility] ELMER ELLIS ([id number]) 1965 F Date Time Provider Department 04/28/23 [facility] During your visit today, we recorded the following information about you: Josie Leong RN 04/28/2023 12:16 PM Signed Please sign pended Cre for upcoming CT. Pt needs updated lab before CT can be done Thank You! Josie Leong RN Allergies As of Date: 04/28/2023 (No Known Allergies) Date Reviewed: 10/15/2022 Reviewed by: Agnie Mcclellan APRN.WIG COMBER - Fully Assessed Reason for Visit: Orders [681] Primary Visit Diagnosis:Renal mass [N28.89] Order(s):CREATININE BLD [SQCRET] Order #: [id number] FUTURE Prescriptions as of 04/28/2023 - DULoxetine (CYMBALTA) 60 mg capsule duloxetine 60 mg capsule,delayed release TAKE 1 CAPSULE BY MOUTH EVERY DAY - atorvastatin (LIPITOR) 80 mg tablet Take 80 mg by mouth once daily. - fexofenadine (LUZ) 180 mg tablet fexofenadine 180 mg tablet TAKE 1 TABLET BY MOUTH EVERY DAY - gabapentin (NEURONTIN) 300 mg capsule Take 600 mg by mouth twice daily. - MV with Tyw-Spcgzzae-Yjnbhw (CENTRUM SILVER) 0.4 mg-300 mcg- 250 mcg tab Take by mouth. - insulin 75/25 lispro protamine/lispro units/mL (HUMALOG MIX 75-25,U-100,INSULN) 100 units/mL susp as directed. - HYDROcodone-acetaminophen (NORCO) 5-325 mg per tablet hydrocodone 5 mg-acetaminophen 325 mg tablet TAKE 1 TO 2 TABLETS BY MOUTH EVERY DAY AT BEDTIME NEEDED - dqomztrl-fug-tpah-FA-lutein (CENTRUM SILVER WOMEN) 8 mg iron-400 mcg-300 mcg tab - furosemide (LASIX) 40 mg tablet furosemide 40 mg tablet TAKE 1 AND 1/2 TABLETS BY MOUTH DAILY - clopidogrel (PLAVIX) 75 mg tablet clopidogrel 75 mg tablet TAKE 1 TABLET BY MOUTH EVERY DAY - metoprolol succinate ER (TOPROL XL) 25 mg 24 hr tablet metoprolol succinate ER 25 mg tablet,extended release 24 hr TAKE 1 TABLET BY MOUTH DAILY (ALONG WITH THE 50MG TABLET FOR 75 MG TOTAL DAILY) - metoprolol succinate ER (TOPROL XL) 50 mg 24 hr tablet metoprolol succinate ER 50 mg tablet,extended release 24 hr TAKE 1 TABLET BY MOUTH EVERY DAY - rivaroxaban (XARELTO) 10 mg tablet Xarelto 10 mg tablet - metFORMIN (GLUCOPHAGE) 1,000 mg tablet Take 1,000 mg by mouth twice daily. - cholecalciferol (VITAMIN D3) 5,000 unit tab Vitamin D3 Refills(s) 0 Start Date: 07/27/21 Status: Ordered - HYDROcodone-Acetaminophen 5-300 mg tab Take 1 tablet by mouth every 8 hours as needed for pain. - methocarbamol (ROBAXIN) 500 mg tablet Take 500 mg by mouth four times daily. - esomeprazole mag/glycerin (ESOMEP-EZS ORAL) Take by mouth. Problem List As Of Date 04/28/2023 Noted Resolved Renal mass [N28.89] 04/19/2022 Renal mass, right [N28.89] 04/19/2022 Factor V Leiden (HCC) [D68.51] 04/19/2022 Coronary artery disease involving [place] [facility] *04/19/2022 Smoker [F17.200] 04/19/2022 Morbid obesity (HCC) [E66.01] 04/19/2022 Other specified disorders of kidney and ureter *04/19/2022 Encounter Status:Closed by ANGIE MCCLELLAN on 04/28/23 Normal [facility] A1C with Estimated Average Nito quintanilla 04-13-2023 Glucose [Mass/Vol] 189 mg/dL Normal [facility] Comment on above: Result Comment: PERF ORMED BY: [place] [address] PATHOLOGIST KAIAWHINA KURA [place]AUPAPA MAORI YU ACOSTA M.D. Performed By: #### C MP, FE and TIBC, CBC, JAQUELINE, [id number] #### [address] #### EPO, METH #### [facility] , HbA1c (Bld) [Mass fraction] 8.2 % High 4.3-5.6 [facility] Comment on above: Result Comment: Incr eased risk for diabetes: 5.7 - 6.4 diabetes: >6.4 glycemic control for adults with diabetes: <7.0 Performed By: #### C MP, FE and TIBC, CBC, JAQUELINE, [id number] #### [address] #### EPO, METH #### [facility] , Alanine aminotransferase [En zymatic activity/volume] in Serum or PlasmaOrdered By: Lilly Christianson on 04-13-2023 ALT [Catalytic activity/Vol] 40 U/L [facility] Albumin [Mass/volume] in Ser um or Plasma by Bromocresol green (BCG) dye binding methoOrdered By: Lilly Christianson on 04-13-2023 Albumin BCG dye [Mass/Vol] 3.9 g/dL 3.5-5.7 [facility] Alkaline phosphatase [Enzyma tic activity/volume] in Serum or PlasmaOrdered By: Lilly Christianson on 04-13-2023 ALP [Catalytic activity/Vol] 182 U/L 34-104 [facility] Aspartate aminotransferase [ Enzymatic activity/volume] in Serum or PlasmaOrdered By: Lilly Christianson on 04-13-2023 AST [Catalytic activity/Vol] 22 U/L 13-39 [facility] Basophils Auto (Bld) [#/Vol] Ordered By: Lilly Christianson on 04-13-2023 Basophils (Bld) [#/Vol] 0.1 10*3/uL 0.0-0.2 [facility] Basophils/100 WBC Auto (Bld) Ordered By: Lilly Christianson on 04-13-2023 Basophils/100 WBC (Bld) 0.9 % . [facility] Bilirubin.total [Mass/volume ] in Serum or PlasmaOrdered By: Lilly Christianson on 04-13-2023 Bilirubin [Mass/Vol] 0.3 mg/dL 0.3-1.0 [facility] Calcium [Mass/volume] in Ser um or PlasmaOrdered By: Lilly Christianson on 04-13-2023 Calcium [Mass/Vol] 8.9 mg/dL 8.6-10.3 [facility] Carbon dioxide, total [Moles /volume] in Serum or PlasmaOrdered By: Lilly Christianson on 04-13-2023 CO2 [Moles/Vol] 30.8 mmol/L 21.0-31.0 [facility] Chloride [Moles/volume] in S jigar or PlasmaOrdered By: Lilly Christianson on 04-13-2023 Chloride [Moles/Vol] 100 mmol/L 98-107 [facility] Complete Blood Count Auto Di ffon 04-13-2023 Basophils (Bld) [#/Vol] 0.1 10*3/uL Normal 0.0-0.2 [facility] Comment on above: Result Comment: PERF ORMED BY: [facility] [address] [place] [address] PATHOLOGIST KAIAWHINA KURA KAUPAPA MAORI YU ACOSTA M.D. Performed By: #### C MP, FE and TIBC, CBC, JAQUELINE, [id number] #### [address] #### EPO, METH #### [facility] , Basophils/100 WBC (Bld) 0.9 % Normal . [facility] Comment on above: Performed By: #### C MP, FE and TIBC, CBC, JAQUELINE, [id number] #### [address] #### EPO, METH #### [facility] , Eosinophils (Bld) [#/Vol] 0.3 10*3/uL Normal 0.0-0.45 [facility] Comment on above: Performed By: #### C MP, FE and TIBC, CBC, JAQUELINE, [id number] #### [address] #### EPO, METH #### [facility] , Eosinophils/100 WBC (Bld) 2.9 % Normal . [facility] Comment on above: Performed By: #### C MP, FE and TIBC, CBC, JAQUELINE, [id number] #### [address] #### EPO, METH #### [facility] , Erythrocyte distribution width (RBC) [Ratio] 15.6 % High 11.9-15.3 [facility] Comment on above: Performed By: #### C MP, FE and TIBC, CBC, JAQUELINE, [id number] #### [place] [address] [place] #### EPO, METH #### [facility] , Hematocrit (Bld) [Volume fraction] 44.7 % Normal 34.0-46.4 [facility] Comment on above: Performed By: #### C MP, FE and TIBC, CBC, JAQUELINE, [id number] #### [address] #### EPO, METH #### [facility] , Hemoglobin (Bld) [Mass/Vol] 14.8 g/dL Normal 11.8-15.4 [facility] Comment on above: Performed By: #### C MP, FE and TIBC, CBC, JAQUELINE, [id number] #### [place] [address] [place] #### EPO, METH #### [facility] , Lymphocytes (Bld) [#/Vol] 2.6 10*3/uL Normal 1.00-4.8 [facility] Comment on above: Performed By: #### C MP, FE and TIBC, CBC, JAQUELINE, [id number] #### [address] #### EPO, METH #### [facility] , Lymphocytes/100 WBC (Bld) 23.8 % Normal . [facility] Comment on above: Performed By: #### C MP, FE and TIBC, CBC, JAQUELINE, [id number] #### [address] #### EPO, METH #### [facility] , MCH (RBC) [Entitic mass] 30.1 pg Normal 24.7-34.3 [facility] Comment on above: Performed By: #### C MP, FE and TIBC, CBC, JAQUELINE, [id number] #### [place] [address] [place] #### EPO, METH #### [facility] , MCV (RBC) [Entitic vol] 90.9 fL Normal 80-100 [facility] Comment on above: Performed By: #### C MP, FE and TIBC, CBC, JAQUELINE, [id number] #### [place] [address] [place] #### EPO, METH #### [facility] , Mean Corpuscular HGB Conc 33.1 g/dL Normal 32.0-35.0 [facility] Comment on above: Performed By: #### C MP, FE and TIBC, CBC, JAQUELINE, [id number] #### [place] [address] [place] #### EPO, METH #### [facility] , Monocytes (Bld) [#/Vol] 0.8 10*3/uL Normal 0.0-0.8 [facility] Comment on above: Performed By: #### C MP, FE and TIBC, CBC, JAQUELINE, [id number] #### [address] #### EPO, METH #### [facility] , Monocytes/100 WBC (Bld) 7.4 % Normal . [facility] Comment on above: Performed By: #### C MP, FE and TIBC, CBC, JAQUELINE, [id number] #### [place] [address] [place] #### EPO, METH #### [facility] , Neutrophils (Bld) [#/Vol] 7.1 10*3/uL Normal 1.8-7.7 [facility] Comment on above: Performed By: #### C MP, FE and TIBC, CBC, JAQUELINE, [id number] #### [place] [address] [place] #### EPO, METH #### [facility] , Neutrophils/100 WBC (Bld) 65.0 % Normal . [facility] Comment on above: Performed By: #### C MP, FE and TIBC, CBC, JAQUELINE, [id number] #### [place] [address] [place] #### EPO, METH #### [facility] , NRBC% 0.1 /100{WBC} Normal 0-0.5 [facility] Comment on above: Performed By: #### C MP, FE and TIBC, CBC, JAQUELINE, [id number] #### [address] #### EPO, METH #### [facility] , Platelet mean volume (Bld) [Entitic vol] 9.4 fL Normal 6.3-10.7 [facility] Comment on above: Performed By: #### C MP, FE and TIBC, CBC, JAQUELINE, [id number] #### [address] #### EPO, METH #### [facility] , Platelets (Bld) [#/Vol] 187 10*3/uL Normal 150-450 [facility] Comment on above: Performed By: #### C MP, FE and TIBC, CBC, JAQUELINE, [id number] #### [address] #### EPO, METH #### [facility] , RBC (Bld) [#/Vol] 4.91 10*6/uL Normal 3.60-5.00 [facility] Comment on above: Performed By: #### C MP, FE and TIBC, CBC, JAQUELINE, [id number] #### [place] [address] [place] #### EPO, METH #### [facility] , WBC (Bld) [#/Vol] 10.9 10*3/uL Normal 3.8-11.6 [facility] Comment on above: Performed By: #### C MP, FE and TIBC, CBC, JAQUELINE, [id number] #### [place] [address] [place] #### EPO, METH #### [facility] , Comprehensive Metabolic Pane mikki 04-13-2023 Albumin [Mass/Vol] 3.9 g/dL Normal 3.5-5.7 [facility] Comment on above: Performed By: #### C MP, FE and TIBC, CBC, JAQUELINE, [id number] #### [address] #### EPO, METH #### [facility] , Albumin/Globulin [Mass ratio] 1.5 {ratio} Normal [facility] Comment on above: Performed By: #### C MP, FE and TIBC, CBC, JAQUELINE, [id number] #### [place] [address] [place] #### EPO, METH #### [facility] , ALP [Catalytic activity/Vol] 182 U/L High 34-104 [facility] Comment on above: Performed By: #### C MP, FE and TIBC, CBC, JAQUELINE, [id number] #### [address] #### EPO, METH #### [facility] , ALT [Catalytic activity/Vol] 40 U/L Normal 7-52 [facility] Comment on above: Performed By: #### C MP, FE and TIBC, CBC, JAQUELINE, [id number] #### [place] [address] [place] #### EPO, METH #### [facility] , Anion gap [Moles/Vol] 12.0 mmol/L Normal 6.0-15.0 [facility] Comment on above: Performed By: #### C MP, FE and TIBC, CBC, JAQUELINE, [id number] #### [place] [address] [place] #### EPO, METH #### [facility] , AST [Catalytic activity/Vol] 22 U/L Normal 13-39 [facility] Comment on above: Performed By: #### C MP, FE and TIBC, CBC, JAQUELINE, [id number] #### [address] #### EPO, METH #### [facility] , Bilirubin [Mass/Vol] 0.3 mg/dL Normal 0.3-1.0 [facility] Comment on above: Performed By: #### C MP, FE and TIBC, CBC, JAQUELINE, [id number] #### [place] [address] [place] #### EPO, METH #### [facility] , Calcium [Mass/Vol] 8.9 mg/dL Normal 8.6-10.3 [facility] Comment on above: Performed By: #### C MP, FE and TIBC, CBC, JAQUELINE, [id number] #### [address] #### EPO, METH #### [facility] , Chloride [Moles/Vol] 100 mmol/L Normal 98-107 [facility] Comment on above: Performed By: #### C MP, FE and TIBC, CBC, JAQUELINE, [id number] #### [address] #### EPO, METH #### [facility] , CO2 [Moles/Vol] 30.8 mmol/L Normal 21.0-31.0 [facility] Comment on above: Performed By: #### C MP, FE and TIBC, CBC, JAQUELINE, [id number] #### [address] #### EPO, METH #### [facility] , Creatinine [Mass/Vol] 1.32 mg/dL High 0.60-1.20 [facility] Comment on above: Performed By: #### C MP, FE and TIBC, CBC, JAQUELINE, [id number] #### [address] #### EPO, METH #### [facility] , Creatinine Clr Calc Pharmacy 58.71 Normal [facility] Comment on above: Performed By: #### C MP, FE and TIBC, CBC, JAQUELINE, [id number] #### [place] [address] [place] #### EPO, METH #### [facility] , GFR/1.73 sq M.predicted MDRD (S/P/Bld) [Vol rate/Area] 47.091 mL/min/{1.73_m2} Normal [facility] Comment on above: Performed By: #### C MP, FE and TIBC, CBC, JAQUELINE, [id number] #### [place] [address] [place] #### EPO, METH #### [facility] , Globulin (S) [Mass/Vol] 2.6 g/dL Normal [facility] Comment on above: Performed By: #### C MP, FE and TIBC, CBC, JAQUELINE, [id number] #### [place] [address] [place] #### EPO, METH #### [facility] , Glucose [Mass/Vol] 242 mg/dL High 70-100 [facility] Comment on above: Result Comment: [facility] Glucose Reference Range is dependent on time and content of last meal. Glucose of more than 200 mg/dL in a nonstressed, ambulatory subject supports the diagnosis of Diabetes Mellitus. ADA recommended reference range Performed By: #### C MP, FE and TIBC, CBC, JAQUELINE, [id number] #### [place] [address] [place] #### EPO, METH #### [facility] , Potassium [Moles/Vol] 4.8 mmol/L Normal 3.5-5.1 [facility] Comment on above: Performed By: #### C MP, FE and TIBC, CBC, JAQUELINE, [id number] #### [facility] [address] [place] [address] [place] #### EPO, METH #### [facility] , Protein [Mass/Vol] 6.5 g/dL Normal 6.4-8.9 [facility] Comment on above: Performed By: #### C MP, FE and TIBC, CBC, JAQUELINE, [id number] #### [facility] [address] [place] [address] [place] #### EPO, METH #### [facility] , Sodium [Moles/Vol] 138 mmol/L Normal 136-145 [facility] Comment on above: Performed By: #### C MP, FE and TIBC, CBC, JAQUELINE, [id number] #### [place] [address] [place] #### EPO, METH #### [facility] , Urea nitrogen [Mass/Vol] 19 mg/dL Normal 7-25 [facility] Comment on above: Performed By: #### C MP, FE and TIBC, CBC, JAQUELINE, [id number] #### [facility] [address] [place] [address] [place] #### EPO, METH #### [facility] , Creatinine [Mass/volume] in Serum or PlasmaOrdered By: Lilly Christianson on 04-13-2023 Creatinine [Mass/Vol] 1.32 mg/dL 0.60-1.20 [facility] Eosinophils Auto (Bld) [#/Vo l]Ordered By: Lilly Christianson on 04-13-2023 Eosinophils (Bld) [#/Vol] 0.3 10*3/uL 0.0-0.45 [facility] Eosinophils/100 WBC Auto (Bl d)Ordered By: Lilly Christianson on 04-13-2023 Eosinophils/100 WBC (Bld) 2.9 % . [facility] Erythrocyte distribution wid th Auto (RBC) [Ratio]Ordered By: Lilly Christianson on 04-13-2023 Erythrocyte distribution width (RBC) [Ratio] 15.6 % 11.9-15.3 [facility] Erythropoetin (EPO), Serumon 04-13-2023 Erythropoetin (EPO), Serum 29.5 m[iU]/mL High 2.6-18.5 [facility] Comment on above: Result Comment: [employer] DxI 800 Immunoassay System Values obtained with different assay methods or kits cannot be used interchangeably. Results cannot be interpreted as absolute evidence of the presence or absence of malignant disease. Performed at: [facility] [employer] [id number] Paper Colorer: Hieu Willams PhD, Phone: [phone] PERFORMED BY: [place] [address] PATHOLOGIST KAIAWHINA KURA KAUPAPA MAORI YU ACOSTA M.D. Performed By: #### C MP, FE and TIBC, CBC, JAQUELINE, [id number] #### [address] #### EPO, METH #### [facility] , Ferritinon 04-13-2023 Ferritin [Mass/Vol] 102.5 ng/mL Normal 11.0-306.8 [facility] Comment on above: Performed By: #### C MP, FE and TIBC, CBC, JAQUELINE, [id number] #### [address] #### EPO, METH #### [facility] , Ferritin [Mass/volume] in Se rum or PlasmaOrdered By: Lilly Christianson on 04-13-2023 Ferritin [Mass/Vol] 102.5 ng/mL 11.0-306.8 [facility] Folate [Mass/volume] in Seru m or PlasmaOrdered By: Lilly Christianson on 04-13-2023 Folate [Mass/Vol] 4.7 ng/mL >5.9 [facility] Comment on above: Folate reference ran ge: >5.9 ng/mlThe WHO technical consultation on folate and vitamin [id number] has determined that folate concentrations lessthan 4 ng/ml are considered deficient. Globulin Calc (S) [Mass/Vol] Ordered By: Lilly Christianson on 04-13-2023 Globulin (S) [Mass/Vol] 2.6 g/dL [facility] Glucose [Mass/volume] in Ser um or PlasmaOrdered By: Lilly Christianson on 04-13-2023 Glucose [Mass/Vol] 242 mg/dL 70-100 [facility] Comment on above: ADA recommended refe rence rangeRandom Glucose Reference Range is dependent on time and content of last meal. Glucose of more than 200 mg/dL in a nonstressed, ambulatory subject supports the diagnosis of Diabetes Mellitus. Hematocrit Auto (Bld) [Volum e fraction]Ordered By: Lilly Christianson on 04-13-2023 Hematocrit (Bld) [Volume fraction] 44.7 % 34.0-46.4 [facility] Hemoglobin [Mass/volume] in BloodOrdered By: Lilly Christianson on 04-13-2023 Hemoglobin (Bld) [Mass/Vol] 14.8 g/dL 11.8-15.4 [facility] Iron [Mass/volume] in Serum or PlasmaOrdered By: Lilly Christianson on 04-13-2023 Iron [Mass/Vol] 129 ug/dL 50-212 [facility] Iron and TIBC Profileon 03-25 % Iron Saturation 50.0 % Normal 20-50 [facility] Comment on above: Performed By: #### C MP, FE and TIBC, CBC, JAQUELINE, [id number] #### [facility] [address] [place] [address] [place] #### EPO, METH #### [facility] , Iron [Mass/Vol] 129 ug/dL Normal 50-212 [facility] Comment on above: Performed By: #### C MP, FE and TIBC, CBC, JAQUELINE, [id number] #### [facility] [address] [place] [address] [place] #### EPO, METH #### [facility] , Total Iron Binding Capacity 258 ug/dL Normal 255-450 [facility] Comment on above: Performed By: #### C MP, FE and TIBC, CBC, JAQUELINE, [id number] #### [facility] [address] [place] [address] [place] #### EPO, METH #### [facility] , Transferrin [Mass/Vol] 184 mg/dL Low 203-362 [facility] Comment on above: Performed By: #### C MP, FE and TIBC, CBC, JAQUELINE, [id number] #### [facility] [address] [place] [address] [place] #### EPO, METH #### [facility] , Iron binding capacity [Mass/ volume] in Serum or PlasmaOrdered By: Lilly Christianson on 04-13-2023 Iron binding capacity [Mass/Vol] 258 ug/dL 255-450 [facility] Iron saturation [Mass Fracti on] in Serum or PlasmaOrdered By: Lilly Christianson on 04-13-2023 Iron saturation [Mass fraction] 50.0 % 20-50 [facility] Leukocytes [#/volume] correc nikki for nucleated erythrocytes in Blood by Automated counOrdered By: Lilly Christianson on 04-13-2023 WBC corrected for nucl RBC Auto (Bld) [#/Vol] 10.9 10*3/uL 3.8-11.6 [facility] Lymphocytes Auto (Bld) [#/Vo l]Ordered By: Lilly Christianson on 04-13-2023 Lymphocytes (Bld) [#/Vol] 2.6 10*3/uL 1.00-4.8 [facility] Lymphocytes/100 WBC Auto (Bl d)Ordered By: Lilly Christianson on 04-13-2023 Lymphocytes/100 WBC (Bld) 23.8 % . [facility] MCH Auto (RBC) [Entitic mass ]Ordered By: Lilly Christianson on 04-13-2023 MCH (RBC) [Entitic mass] 30.1 pg 24.7-34.3 [facility] MCHC Auto (RBC) [Mass/Vol]Or dered By: Lilly Christianson on 04-13-2023 MCHC (RBC) [Mass/Vol] 33.1 g/dL 32.0-35.0 [facility] MCV Auto (RBC) [Entitic vol] Ordered By: Lilly Christianson on 04-13-2023 MCV (RBC) [Entitic vol] 90.9 fL 80-100 [facility] Methylmalonic Acidon 024 Methylmalonic Acid 321 Normal 0-378 [facility] Comment on above: Result Comment: This test was developed and its performance characteristics determined by [facility]. It has not been cleared or approved by the Food and Drug Administration. Performed at: [facility] [id number] Paper Colorer: Amara Coyne MD, Phone: [phone] Performed By: #### C MP, FE and TIBC, CBC, JAQUELINE, [id number] #### [address] #### EPO, METH #### [facility] , Monocytes Auto (Bld) [#/Vol] Ordered By: Lilly Christianson on 04-13-2023 Monocytes (Bld) [#/Vol] 0.8 10*3/uL 0.0-0.8 [facility] Monocytes/100 WBC Auto (Bld) Ordered By: Lilly Christianson on 04-13-2023 Monocytes/100 WBC (Bld) 7.4 % . [facility] Neutrophils Auto (Bld) [#/Vo l]Ordered By: Lilly Christianson on 04-13-2023 Neutrophils (Bld) [#/Vol] 7.1 10*3/uL 1.8-7.7 [facility] Neutrophils/100 WBC Auto (Bl d)Ordered By: Lilly Christianson on 04-13-2023 Neutrophils/100 WBC (Bld) 65.0 % . [facility] No Panel InformationOrdered By: Lilly Christianson on 04-13-2023 Estimated GFR (CKD-EPI) 47.091 mL/Min [facility] Creatinine Clearance (Chem 58.71 [facility] Nucleated erythrocytes [Pres ence] in Blood by Automated countOrdered By: Lilly Christianson on 04-13-2023 Nucleated RBC Auto Ql (Bld) 0.1 /100{WBC} 0-0.5 [facility] Platelet mean volume Auto (B ld) [Entitic vol]Ordered By: Lilly Christianson on 04-13-2023 Platelet mean volume (Bld) [Entitic vol] 9.4 fL 6.3-10.7 [facility] Platelets Auto (Bld) [#/Vol] Ordered By: Lilly Christianson on 04-13-2023 Platelets (Bld) [#/Vol] 187 10*3/uL 150-450 [facility] Potassium [Moles/volume] in Serum or PlasmaOrdered By: Lilly Christianson on 04-13-2023 Potassium [Moles/Vol] 4.8 mmol/L 3.5-5.1 [facility] Protein [Mass/volume] in Ser um or PlasmaOrdered By: Lilly Christianson on 04-13-2023 Protein [Mass/Vol] 6.5 g/dL 6.4-8.9 [facility] RBC Auto (Bld) [#/Vol]Ordere d By: Lilly Christianson on 04-13-2023 RBC (Bld) [#/Vol] 4.91 10*6/uL 3.60-5.00 [facility] Serum or plasma albumin/glob ulin mass ratioOrdered By: Lilly Christianson on 04-13-2023 Albumin/Globulin [Mass ratio] 1.5 {ratio} [facility] Serum or plasma anion gap de terminationOrdered By: Lilly Christianson on 04-13-2023 Anion gap [Moles/Vol] 12.0 mmol/L 6.0-15.0 [facility] Sodium [Moles/volume] in Ser um or PlasmaOrdered By: Lilly Christianson on 04-13-2023 Sodium [Moles/Vol] 138 mmol/L 136-145 [facility] Transferrin [Mass/volume] in Serum or PlasmaOrdered By: Lilly Christianson on 04-13-2023 Transferrin [Mass/Vol] 184 mg/dL 203-362 [facility] Urea nitrogen [Mass/volume] in Serum or PlasmaOrdered By: Lilly Christianson on 04-13-2023 Urea nitrogen [Mass/Vol] 19 mg/dL 7-25 [facility] Vit. B12/Folate Profileon Cobalamin (Vitamin B12) [Mass/Vol] pg/mL High 180-914 [facility] Comment on above: Performed By: #### C MP, FE and TIBC, CBC, JAQUELINE, [id number] #### [address] #### EPO, METH #### [facility] , Folate 4.7 ng/mL Low >5.9 [facility] Comment on above: Result Comment: Sherry te reference range: >5.9 ng/ml The WHO technical consultation on folate and vitamin b12 deficiencies has determined that folate concentrations less than 4 ng/ml are considered deficient. PERFORMED BY: [place] [address] PATHOLOGIST KAIAWHINA KURA KAUPAPA MAORI YU ACOSTA M.D. Performed By: #### C MP, FE and TIBC, CBC, JAQUELINE, [id number] #### [place] [address] [place] #### EPO, METH #### [facility] , Vitamin B12 ser/plasOrdered By: Lilly Christianson on 04-13-2023 Cobalamin (Vitamin B12) [Mass/Vol] pg/mL 180-914 [facility] WBC Auto (Bld) [#/Vol]Ordere d By: Lilly Christianson on 04-13-2023 WBC (Bld) [#/Vol] 10.9 10*3/uL 3.8-11.6 [facility] Complete Blood Count Auto Di ffon 01-17-2023 Basophils (Bld) [#/Vol] 0.1 10*3/uL Normal 0.0-0.2 [facility] Comment on above: Result Comment: PERF ORMED BY: [address] [address] PATHOLOGIST KAIAWHINA KURA KAUPAPA MAORI YU ACOSTA M.D. Performed By: #### M ETH, EPO #### [facility] , #### [id number], CBC, JAQUELINE, CMP, FE and TIBC #### [address] Basophils/100 WBC (Bld) 0.7 % Normal . [facility] Comment on above: Performed By: #### M ETH, EPO #### [facility] , #### [id number], CBC, JQAUELINE, CMP, FE and TIBC #### [address] Eosinophils (Bld) [#/Vol] 0.2 10*3/uL Normal 0.0-0.45 [facility] Comment on above: Performed By: #### M ETH, EPO #### [facility] , #### [id number], CBC, JAQUELINE, CMP, FE and TIBC #### [address] Eosinophils/100 WBC (Bld) 2.3 % Normal . [facility] Comment on above: Performed By: #### M ETH, EPO #### [facility] , #### [id number], CBC, JAQUELINE, CMP, FE and TIBC #### [address] Erythrocyte distribution width (RBC) [Ratio] 14.8 % Normal 11.9-15.3 [facility] Comment on above: Performed By: #### M ETH, EPO #### [facility] , #### [id number], CBC, JAQUELINE, CMP, FE and TIBC #### [address] Hematocrit (Bld) [Volume fraction] 42.8 % Normal 34.0-46.4 [facility] Comment on above: Performed By: #### M ETH, EPO #### [facility] , #### [id number], CBC, JAQUELINE, CMP, FE and TIBC #### [address] Hemoglobin (Bld) [Mass/Vol] 14.2 g/dL Normal 11.8-15.4 [facility] Comment on above: Performed By: #### M ETH, EPO #### [facility] , #### [id number], CBC, JAQUELINE, CMP, FE and TIBC #### [address] Lymphocytes (Bld) [#/Vol] 2.8 10*3/uL Normal 1.00-4.8 [facility] Comment on above: Performed By: #### M ETH, EPO #### [facility] , #### [id number], CBC, JAQUELINE, CMP, FE and TIBC #### [address] Lymphocytes/100 WBC (Bld) 28.0 % Normal . [facility] Comment on above: Performed By: #### M ETH, EPO #### [facility] , #### [id number], CBC, JAQUELINE, CMP, FE and TIBC #### [address] MCH (RBC) [Entitic mass] 30.3 pg Normal 24.7-34.3 [facility] Comment on above: Performed By: #### M ETH, EPO #### [facility] , #### [id number], CBC, JAQUELINE, CMP, FE and TIBC #### [address] MCV (RBC) [Entitic vol] 90.9 fL Normal 80-100 [facility] Comment on above: Performed By: #### M ETH, EPO #### [facility] , #### [id number], CBC, JAQUELINE, CMP, FE and TIBC #### [address] Mean Corpuscular HGB Conc 33.3 g/dL Normal 32.0-35.0 [facility] Comment on above: Performed By: #### M ETH, EPO #### [facility] , #### [id number], CBC, JAQUELINE, CMP, FE and TIBC #### [address] Monocytes (Bld) [#/Vol] 0.8 10*3/uL Normal 0.0-0.8 [facility] Comment on above: Performed By: #### M ETH, EPO #### [facility] , #### [id number], CBC, JAQUELINE, CMP, FE and TIBC #### [address] Monocytes/100 WBC (Bld) 8.3 % Normal . [facility] Comment on above: Performed By: #### M ETH, EPO #### [facility] , #### [id number], CBC, JAQUELINE, CMP, FE and TIBC #### [address] Neutrophils (Bld) [#/Vol] 6.1 10*3/uL Normal 1.8-7.7 [facility] Comment on above: Performed By: #### M ETH, EPO #### [facility] , #### [id number], CBC, JAQUELINE, CMP, FE and TIBC #### [place] [address] [place] Neutrophils/100 WBC (Bld) 60.7 % Normal . [facility] [facility] Comment on above: Performed By: #### M ETH, EPO #### [facility] , #### [id number], CBC, JAQUELINE, CMP, FE and TIBC #### [address] NRBC% 0.1 /100{WBC} Normal 0-0.5 [facility] Comment on above: Performed By: #### M ETH, EPO #### [facility] , #### [id number], CBC, JAQUELINE, CMP, FE and TIBC #### [address] Platelet mean volume (Bld) [Entitic vol] 9.0 fL Normal 6.3-10.7 [facility] Comment on above: Performed By: #### M ETH, EPO #### [facility] , #### [id number], CBC, JAQUELINE, CMP, FE and TIBC #### [address] Platelets (Bld) [#/Vol] 194 10*3/uL Normal 150-450 [facility] Comment on above: Performed By: #### M ETH, EPO #### [facility] , #### [id number], CBC, JAQUELINE, CMP, FE and TIBC #### [address] RBC (Bld) [#/Vol] 4.70 10*6/uL Normal 3.60-5.00 [facility] Comment on above: Performed By: #### M ETH, EPO #### [facility] , #### [id number], CBC, JAQUELINE, CMP, FE and TIBC #### [address] WBC (Bld) [#/Vol] 10.0 10*3/uL Normal 3.8-11.6 [facility] Comment on above: Performed By: #### M ETH, EPO #### [facility] , #### [id number], CBC, JAQUELINE, CMP, FE and TIBC #### [address] Comprehensive Metabolic Pane [facility] 01-17-2023 Albumin [Mass/Vol] 3.9 g/dL Normal 3.5-5.7 [facility] Comment on above: Performed By: #### M ETH, EPO #### [facility] , #### [id number], CBC, JAQUELINE, CMP, FE and TIBC #### [address] Albumin/Globulin [Mass ratio] 1.4 {ratio} Normal [facility] Comment on above: Performed By: #### M ETH, EPO #### [facility] , #### [id number], CBC, JAQUELINE, CMP, FE and TIBC #### [address] ALP [Catalytic activity/Vol] 147 U/L High 34-104 [facility] Comment on above: Performed By: #### M ETH, EPO #### [facility] , #### [id number], CBC, JAQUELINE, CMP, FE and TIBC #### [address] ALT [Catalytic activity/Vol] 19 U/L Normal 7-52 [facility] Comment on above: Performed By: #### M ETH, EPO #### [facility] , #### [id number], CBC, JAQUELINE, CMP, FE and TIBC #### [facility] [address] [place] [address] Anion gap [Moles/Vol] 11.1 mmol/L Normal 6.0-15.0 [facility] Comment on above: Performed By: #### M ETH, EPO #### [facility] , #### [id number], CBC, JAQUELINE, CMP, FE and TIBC #### [address] AST [Catalytic activity/Vol] 13 U/L Normal 13-39 [facility] Comment on above: Performed By: #### M ETH, EPO #### [facility] , #### [id number], CBC, JAQUELINE, CMP, FE and TIBC #### [address] Bilirubin [Mass/Vol] 0.4 mg/dL Normal 0.3-1.0 [facility] Comment on above: Performed By: #### M ETH, EPO #### [facility] , #### [id number], CBC, JAQUELINE, CMP, FE and TIBC #### [address] Calcium [Mass/Vol] 8.8 mg/dL Normal 8.6-10.3 [facility] Comment on above: Performed By: #### M ETH, EPO #### [facility] , #### [id number], CBC, JAQUELINE, CMP, FE and TIBC #### [address] Chloride [Moles/Vol] 102 mmol/L Normal 98-107 [facility] Comment on above: Performed By: #### M ETH, EPO #### [facility] , #### [id number], CBC, JAQUELINE, CMP, FE and TIBC #### [address] CO2 [Moles/Vol] 30.1 mmol/L Normal 21.0-31.0 [facility] Comment on above: Performed By: #### M ETH, EPO #### [facility] , #### [id number], CBC, JAQUELINE, CMP, FE and TIBC #### [facility] [address] [place] [address] Creatinine [Mass/Vol] 1.10 mg/dL Normal 0.60-1.20 [facility] Comment on above: Performed By: #### M ETH, EPO #### [facility] , #### [id number], CBC, JAQUELINE, CMP, FE and TIBC #### [facility] [address] Creatinine Clr Calc Pharmacy 70.45 Normal [facility] Comment on above: Performed By: #### M ETH, EPO #### [facility] , #### [id number], CBC, JAQUELINE, CMP, FE and TIBC #### [place] [address] [place] GFR/1.73 sq M.predicted MDRD (S/P/Bld) [Vol rate/Area] 58.608 mL/min/{1.73_m2} Normal [facility] Comment on above: Performed By: #### M ETH, EPO #### [facility] , #### [id number], CBC, JAQUELINE, CMP, FE and TIBC #### [address] Globulin (S) [Mass/Vol] 2.8 g/dL Normal [facility] Comment on above: Performed By: #### M ETH, EPO #### [facility] , #### [id number], CBC, JAQUELINE, CMP, FE and TIBC #### [address] Glucose [Mass/Vol] 132 mg/dL High 70-100 [facility] Comment on above: Result Comment: [place] Glucose Reference Range is dependent on time and content of last meal. Glucose of more than 200 mg/dL in a nonstressed, ambulatory subject supports the diagnosis of Diabetes Mellitus. ADA recommended reference range Performed By: #### M ETH, EPO #### [facility] , #### [id number], CBC, JAQUELINE, CMP, FE and TIBC #### [address] Potassium [Moles/Vol] 4.2 mmol/L Normal 3.5-5.1 [facility] Comment on above: Performed By: #### M ETH, EPO #### [facility] , #### [id number], CBC, JAQUELINE, CMP, FE and TIBC #### [address] Protein [Mass/Vol] 6.7 g/dL Normal 6.4-8.9 [facility] Comment on above: Performed By: #### M ETH, EPO #### [facility] , #### [id number], CBC, JAQUELINE, CMP, FE and TIBC #### [address] Sodium [Moles/Vol] 139 mmol/L Normal 136-145 [facility] Comment on above: Performed By: #### M ETH, EPO #### [facility] , #### [id number], CBC, JAQUELINE, CMP, FE and TIBC #### [address] Urea nitrogen [Mass/Vol] 15 mg/dL Normal 7-25 [facility] Comment on above: Performed By: #### M ETH, EPO #### [facility] , #### [id number], CBC, JAQUELINE, CMP, FE and TIBC #### [address] Erythropoetin (EPO), Serumon 01-17-2023 Erythropoetin (EPO), Serum 23.0 m[iU]/mL High 2.6-18.5 [facility] Comment on above: Result Comment: [employer] DxI 800 Immunoassay System Values obtained with different assay methods or kits cannot be used interchangeably. Results cannot be interpreted as absolute evidence of the presence or absence of malignant disease. Performed at: [address] [id number] Paper Colorer: Hieu Willams PhD, Phone: [phone] PERFORMED BY: [place] [address] PATHOLOGIST KAIAWHINA KURA [place]AUP[place] MAORI YU ACOSTA M.D. Performed By: #### C MP, FE and TIBC, CBC, JAQUELINE, [id number] #### [address] #### EPO, METH #### [facility] , Ferritinon 01-17-2023 Ferritin [Mass/Vol] 68.6 ng/mL Normal 11.0-306.8 [facility] Comment on above: Performed By: #### C MP, FE and TIBC, CBC, JAQUELINE, [id number] #### [address] #### EPO, METH #### [facility] , Iron and TIBC Profileon 12-23 % Iron Saturation 45.9 % Normal 20-50 [facility] Comment on above: Performed By: #### M ETH, EPO #### [facility] , #### [id number], CBC, JAQUELINE, CMP, FE and TIBC #### [address] Iron [Mass/Vol] 129 ug/dL Normal 50-212 [facility] Comment on above: Performed By: #### M ETH, EPO #### [facility] , #### [id number], CBC, JAQUELINE, CMP, FE and TIBC #### [address] Total Iron Binding Capacity 281 ug/dL Normal 255-450 [facility] Comment on above: Performed By: #### M ETH, EPO #### [facility] , #### [id number], CBC, JAQUELINE, CMP, FE and TIBC #### [address] Transferrin [Mass/Vol] 201 mg/dL Low 203-362 [facility] Comment on above: Performed By: #### M ETH, EPO #### [facility] , #### [id number], CBC, JAQUELINE, CMP, FE and TIBC #### [facility] [address] Methylmalonic Acidon 023 Methylmalonic Acid 224 Normal 0-378 [facility] Comment on above: Result Comment: This test was developed and its performance characteristics determined by [facility]. It has not been cleared or approved by the Food and Drug Administration. Performed at: [address] [id number] Paper Colorer: Amara Coyne MD, Phone: [phone] Performed By: #### C MP, FE and TIBC, CBC, JAQUELINE, [id number] #### [facility] [address] [place] [address] #### EPO, METH #### [facility] , Serum or plasma erythropoiet in (EPO) measurement (units/volume)Ordered By: Lilly Christianson on 01-17-2023 Erythropoietin (EPO) Qn 23.0 mIU/mL 2.6-18.5 [facility] Comment on above: [employer] DxI 800 Immunoassay SystemValues obtained with different assay methods or kits cannotbe used interchangeably. Results cannot be interpreted asabsolute evidence of the presence or absence of malignantdisease.Performed at: [address] [id number] Director: Hieu Willams PhD, Phone: [phone] Serum or plasma methylmalona te measurement (moles/volume)Ordered By: Lilly Christianson on 01-17-2023 Methylmalonate [Moles/Vol] 224 nmol/L 0-378 [facility] Comment on above: This test was develo ped and its performance characteristicsdetermined by [employer]. It has not been cleared orapproved by the Food and Drug Administration.Performed at: [address] [id number] Director: Amara Coyne MD, Phone: [phone] Vit. B12/Folate Profileon Cobalamin (Vitamin B12) [Mass/Vol] 490 pg/mL Normal 180-914 [facility] Comment on above: Performed By: #### C MP, FE and TIBC, CBC, JAQUELINE, [id number] #### [address] #### EPO, METH #### [facility] , Folate 6.8 ng/mL Normal >5.9 [facility] Comment on above: Result Comment: Sherry te reference range: >5.9 ng/ml The WHO technical consultation on folate and vitamin b12 deficiencies has determined that folate concentrations less than 4 ng/ml are considered deficient. PERFORMED BY: [place] [address] PATHOLOGIST KAIAWHINA KURA [place] MAORI YU ACOSTA M.D. Performed By: #### C MP, FE and TIBC, CBC, JAQUELINE, [id number] #### [address] #### EPO, METH #### [facility] , Complete Blood Count Auto Di ffon 10-22-2022 Basophils (Bld) [#/Vol] 0.1 10*3/uL Normal 0.0-0.2 [facility] Comment on above: Result Comment: PERF ORMED BY: [place] [address] PATHOLOGIST KAIAWHINA KURA [place] MAORI YU ACOSTA M.D. Performed By: #### C MP, FE and TIBC, CBC, JAQUELINE, [id number] #### [address] #### EPO, METH #### [facility] , Basophils/100 WBC (Bld) 0.7 % Normal . [facility] Comment on above: Performed By: #### C MP, FE and TIBC, CBC, JAQUELINE, [id number] #### [address] #### EPO, METH #### [facility] , Eosinophils (Bld) [#/Vol] 0.4 10*3/uL Normal 0.0-0.45 [facility] Comment on above: Performed By: #### C MP, FE and TIBC, CBC, JAQUELINE, [id number] #### [address] #### EPO, METH #### [facility] , Eosinophils/100 WBC (Bld) 3.4 % Normal . [facility] Comment on above: Performed By: #### C MP, FE and TIBC, CBC, JAQUELINE, [id number] #### [place] [address] [place] #### EPO, METH #### [facility] , Erythrocyte distribution width (RBC) [Ratio] 15.8 % High 11.9-15.3 [facility] Comment on above: Performed By: #### C MP, FE and TIBC, CBC, JAQUELINE, [id number] #### [address] #### EPO, METH #### [facility] , Hematocrit (Bld) [Volume fraction] 39.3 % Normal 34.0-46.4 [facility] Comment on above: Performed By: #### C MP, FE and TIBC, CBC, JAQUELINE, [id number] #### [place] [address] [place] #### EPO, METH #### [facility] , Hemoglobin (Bld) [Mass/Vol] 12.8 g/dL Normal 11.8-15.4 [facility] Comment on above: Performed By: #### C MP, FE and TIBC, CBC, JAQUELINE, [id number] #### [place] [address] [place] #### EPO, METH #### [facility] , Lymphocytes (Bld) [#/Vol] 3.2 10*3/uL Normal 1.00-4.8 [facility] Comment on above: Performed By: #### C MP, FE and TIBC, CBC, JAQUELINE, [id number] #### [address] #### EPO, METH #### [facility] , Lymphocytes/100 WBC (Bld) 25.9 % Normal . [facility] Comment on above: Performed By: #### C MP, FE and TIBC, CBC, JAQUELINE, [id number] #### [address] #### EPO, METH #### [facility] , MCH (RBC) [Entitic mass] 29.5 pg Normal 24.7-34.3 [facility] Comment on above: Performed By: #### C MP, FE and TIBC, CBC, JAQUELINE, [id number] #### [address] #### EPO, METH #### [facility] , MCV (RBC) [Entitic vol] 90.6 fL Normal 80-100 [facility] Comment on above: Performed By: #### C MP, FE and TIBC, CBC, JAQUELINE, [id number] #### [address] #### EPO, METH #### [facility] , Mean Corpuscular HGB Conc 32.6 g/dL Normal 32.0-35.0 [facility] Comment on above: Performed By: #### C MP, FE and TIBC, CBC, JAQUELINE, [id number] #### [place] [address] [place] #### EPO, METH #### [facility] , Monocytes (Bld) [#/Vol] 0.9 10*3/uL High 0.0-0.8 [facility] Comment on above: Performed By: #### C MP, FE and TIBC, CBC, JAQUELINE, [id number] #### [address] #### EPO, METH #### [facility] , Monocytes/100 WBC (Bld) 7.1 % Normal . [facility] Comment on above: Performed By: #### C MP, FE and TIBC, CBC, JAQUELINE, [id number] #### [place] [address] [place] #### EPO, METH #### [facility] , Neutrophils (Bld) [#/Vol] 7.9 10*3/uL High 1.8-7.7 [facility] Comment on above: Performed By: #### C MP, FE and TIBC, CBC, JAQUELINE, [id number] #### [address] #### EPO, METH #### [facility] , Neutrophils/100 WBC (Bld) 62.9 % Normal . [facility] Comment on above: Performed By: #### C MP, FE and TIBC, CBC, JAQUELINE, [id number] #### [address] #### EPO, METH #### [facility] , NRBC% 0.1 /100{WBC} Normal 0-0.5 [facility] Comment on above: Performed By: #### C MP, FE and TIBC, CBC, JAQUELINE, [id number] #### [address] #### EPO, METH #### [facility] , Platelet mean volume (Bld) [Entitic vol] 10.4 fL Normal 6.3-10.7 [facility] Comment on above: Performed By: #### C MP, FE and TIBC, CBC, JAQUELINE, [id number] #### [place] [address] [place] #### EPO, METH #### [facility] , Platelets (Bld) [#/Vol] 199 10*3/uL Normal 150-450 [facility] Comment on above: Performed By: #### C MP, FE and TIBC, CBC, JAQUELINE, [id number] #### [place] [address] [place] #### EPO, METH #### [facility] , RBC (Bld) [#/Vol] 4.34 10*6/uL Normal 3.60-5.00 [facility] Comment on above: Performed By: #### C MP, FE and TIBC, CBC, JAQUELINE, [id number] #### [address] #### EPO, METH #### [facility] , WBC (Bld) [#/Vol] 12.5 10*3/uL High 3.8-11.6 [facility] Comment on above: Performed By: #### C MP, FE and TIBC, CBC, JAQUELINE, [id number] #### [place] [address] [place] #### EPO, METH #### [facility] , Comprehensive Metabolic Pane mikki 10-22-2022 Albumin [Mass/Vol] 3.9 g/dL Normal 3.5-5.7 [facility] Comment on above: Performed By: #### C MP, FE and TIBC, CBC, JAQUELINE, [id number] #### [place] [address] [place] #### EPO, METH #### [facility] , Albumin/Globulin [Mass ratio] 1.5 {ratio} Normal [facility] Comment on above: Performed By: #### C MP, FE and TIBC, CBC, JAQUELINE, [id number] #### [place] [address] [place] #### EPO, METH #### [facility] , ALP [Catalytic activity/Vol] 161 U/L High 34-104 [facility] Comment on above: Performed By: #### C MP, FE and TIBC, CBC, JAQUELINE, [id number] #### [place] [address] [place] #### EPO, METH #### [facility] , ALT [Catalytic activity/Vol] 16 U/L Normal 7-52 [facility] Comment on above: Performed By: #### C MP, FE and TIBC, CBC, JAQUELINE, [id number] #### [address] #### EPO, METH #### [facility] , Anion gap [Moles/Vol] 13.9 mmol/L Normal 6.0-15.0 [facility] Comment on above: Performed By: #### C MP, FE and TIBC, CBC, JAQUELINE, [id number] #### [place] [address] [place] #### EPO, METH #### [facility] , AST [Catalytic activity/Vol] 13 U/L Normal 13-39 [facility] Comment on above: Performed By: #### C MP, FE and TIBC, CBC, JAQUELINE, [id number] #### [place] [address] [place] #### EPO, METH #### [facility] , Bilirubin [Mass/Vol] 0.3 mg/dL Normal 0.3-1.0 [facility] Comment on above: Performed By: #### C MP, FE and TIBC, CBC, JAQUELINE, [id number] #### [place] [address] [place] #### EPO, METH #### [facility] , Calcium [Mass/Vol] 8.9 mg/dL Normal 8.6-10.3 [facility] Comment on above: Performed By: #### C MP, FE and TIBC, CBC, JAQUELINE, [id number] #### [place] [address] [place] #### EPO, METH #### [facility] , Chloride [Moles/Vol] 100 mmol/L Normal 98-107 [facility] Comment on above: Performed By: #### C MP, FE and TIBC, CBC, JAQUELINE, [id number] #### [place] [address] [place] #### EPO, METH #### [facility] , CO2 [Moles/Vol] 28.4 mmol/L Normal 21.0-31.0 [facility] Comment on above: Performed By: #### C MP, FE and TIBC, CBC, JAQUELINE, [id number] #### [place] [address] [place] #### EPO, METH #### [facility] , Creatinine [Mass/Vol] 1.40 mg/dL High 0.60-1.20 [facility] Comment on above: Performed By: #### C MP, FE and TIBC, CBC, JAQUELINE, [id number] #### [place] [address] [place] #### EPO, METH #### [facility] , Creatinine Clr Calc Pharmacy 56.02 Normal [facility] Comment on above: Performed By: #### C MP, FE and TIBC, CBC, JAQUELINE, [id number] #### [place] [address] [place] #### EPO, METH #### [facility] , GFR/1.73 sq M.predicted MDRD (S/P/Bld) [Vol rate/Area] 44.155 mL/min/{1.73_m2} Normal [facility] Comment on above: Performed By: #### C MP, FE and TIBC, CBC, JAQUELINE, [id number] #### [place] [address] [place] #### EPO, METH #### [facility] , Globulin (S) [Mass/Vol] 2.6 g/dL Normal [facility] Comment on above: Performed By: #### C MP, FE and TIBC, CBC, JAQUELINE, [id number] #### [place] [address] [place] #### EPO, METH #### [facility] , Glucose [Mass/Vol] 281 mg/dL High 70-100 [facility] Comment on above: Result Comment: [facility] Glucose Reference Range is dependent on time and content of last meal. Glucose of more than 200 mg/dL in a nonstressed, ambulatory subject supports the diagnosis of Diabetes Mellitus. ADA recommended reference range Performed By: #### C MP, FE and TIBC, CBC, JAQUELINE, [id number] #### [place] [address] [place] #### EPO, METH #### [facility] , Potassium [Moles/Vol] 4.3 mmol/L Normal 3.5-5.1 [facility] Comment on above: Performed By: #### C MP, FE and TIBC, CBC, JAQUELINE, [id number] #### [place] [address] [place] #### EPO, METH #### [facility] , Protein [Mass/Vol] 6.5 g/dL Normal 6.4-8.9 [facility] Comment on above: Performed By: #### C MP, FE and TIBC, CBC, JAQUELINE, [id number] #### [place] [address] [place] #### EPO, METH #### [facility] , Sodium [Moles/Vol] 138 mmol/L Normal 136-145 [facility] Comment on above: Performed By: #### C MP, FE and TIBC, CBC, JAQUELINE, [id number] #### [place] [address] [place] #### EPO, METH #### [facility] , Urea nitrogen [Mass/Vol] 17 mg/dL Normal 7-25 [facility] Comment on above: Performed By: #### C MP, FE and TIBC, CBC, JAQUELINE, [id number] #### [address] #### EPO, METH #### [facility] , Erythropoetin (EPO), Serumon 10-22-2022 Erythropoetin (EPO), Serum 31.7 m[iU]/mL High 2.6-18.5 [facility] Comment on above: Result Comment: [employer] DxI 800 Immunoassay System Values obtained with different assay methods or kits cannot be used interchangeably. Results cannot be interpreted as absolute evidence of the presence or absence of malignant disease. Performed at: [facility] [id number] Paper Colorer: Hieu Willams PhD, Phone: [phone] PERFORMED BY: [place] [address] PATHOLOGIST KAIAWHINA KURA [place] MAORI YU ACOSTA M.D. Performed By: #### C MP, FE and TIBC, CBC, JAQUELINE, [id number] #### [address] #### EPO, METH #### [facility] , Ferritinon 10-22-2022 Ferritin [Mass/Vol] 82.9 ng/mL Normal 11.0-306.8 [facility] Comment on above: Performed By: #### C MP, FE and TIBC, CBC, JAQUELINE, [id number] #### [address] #### EPO, METH #### [facility] , Iron and TIBC Profileon 09- 1-2022 % Iron Saturation 34.3 % Normal 20-50 [facility] Comment on above: Performed By: #### C MP, FE and TIBC, CBC, JAQUELINE, [id number] #### [place] [address] [place] #### EPO, METH #### [facility] , Iron [Mass/Vol] 94 ug/dL Normal 50-212 [facility] Comment on above: Performed By: #### C MP, FE and TIBC, CBC, JAQUELINE, [id number] #### [place] [address] [place] #### EPO, METH #### [facility] , Total Iron Binding Capacity 274 ug/dL Normal 255-450 [facility] Comment on above: Performed By: #### C MP, FE and TIBC, CBC, JAQUELINE, [id number] #### [place] [address] [place] #### EPO, METH #### [facility] , Transferrin [Mass/Vol] 196 mg/dL Low 203-362 [facility] Comment on above: Performed By: #### C MP, FE and TIBC, CBC, JAQUELINE, [id number] #### [place] [address] [place] #### EPO, METH #### [facility] , Methylmalonic Acidon 023 Methylmalonic Acid 270 Normal 0-378 [facility] Comment on above: Result Comment: This test was developed and its performance characteristics determined by [employer]. It has not been cleared or approved by the Food and Drug Administration. Performed at: [address] [id number] Paper Colorer: Amara Coyne MD, Phone: [phone] Performed By: #### C MP, FE and TIBC, CBC, JAQUELINE, [id number] #### [place] [address] [place] #### EPO, METH #### [facility] , Vit. B12/Folate Profileon Cobalamin (Vitamin B12) [Mass/Vol] pg/mL High 180-914 [facility] Comment on above: Performed By: #### C MP, FE and TIBC, CBC, JAQUELINE, [id number] #### [place] [address] [place] #### EPO, METH #### [facility] , Folate 5.7 ng/mL Low >5.9 [facility] Comment on above: Result Comment: Sherry te reference range: >5.9 ng/ml The WHO technical consultation on folate and vitamin b12 deficiencies has determined that folate concentrations less than 4 ng/ml are considered deficient. PERFORMED BY: [address] [place] [address] PATHOLOGIST KAIAWHINA KURA [place]AUP[place]A MAORI YU ACOSTA M.D. Performed By: #### C MP, FE and TIBC, CBC, JAQUELINE, [id number] #### [place] [address] [place] #### EPO, METH #### [facility] , CREATININE BLDon 10-07-2022 Creatinine [Mass/Vol] 1.06 mg/dL High 0.58-0.96 [facility] Comment on above: Order Comment: Speci men Type: BLOOD SPECIMEN Ordering Facility: [facility] Address: [address] [place] [address] Performed By: #### C RET1 #### [facility] CLIA [id number] [address] [place] [address] Creatinine and Glomerular filtration rate.predicted panel (S/P/Bld) 62 mL/min/1.73m??? Normal >=60 [facility] Comment on above: Order Comment: Speci men Type: BLOOD SPECIMEN Ordering Facility: [facility] Address: [address] [place] [address] Result Comment: Terri mated Glomerular Filtration Rate (eGFR) is calculated using the 2020 CKD-EPI creatinine equation. This equation utilizes serum creatinine, sex, and age as parameters. The creatinine assay has traceable calibration to isotope dilution-mass spectrometry. Refer to KDIGO guidelines for clinical interpretation. In patients with unstable renal function, e.g. those with acute kidney injury, the eGFR may not accurately reflect actual GFR. Performed By: #### C RET1 #### [facility] CLIA [id number] [address] [place] [id number] KIDNEY WO/W IVCONon 10-07 CT KIDNEY WO/W IVCON * * *Final Report* * * DATE OF EXAM: Oct 07 2022 11:27AM [facility] 0546 - CT KIDNEY WO/W IVCON / PROCEDURE REASON: Other specified disorders of kidney and ureter * * * * Physician Interpretation * * * * RESULT: EXAMINATION: CT ABDOMEN (KIDNEY) WITHOUT AND WITH IV CONTRAST CLINICAL HISTORY: RIGHT renal mass on active surveillance. TECHNIQUE: Spiral imaging in three phases through the kidneys and including the abdomen was performed utilizing IV contrast only. No oral contrast was given. Arterial phase MIP, and nephrographic phase oblique coronal and sagittal reformations were created from thin-slice images under physician supervision on the imaging modality workstation. MQ: [id number] Contrast: IV: 120 ml of Omnipaque 300 Oral Contrast: None CT Radiation dose: Integrated dose-length product (DLP) for this visit = 3147 mGy*cm. CT Dose Reduction Employed: mAs-kVp adjusted based on patient size-age COMPARISON: 04/05/2022, 02/01/2022, 06/15/2021. RESULT: RIGHT kidney and vasculature: Right kidney and ureter: 3.3 cm (7:53) medial upper pole enhancing neoplasm, 3.0 cm on the oldest study from 06/15/2021. No other change in the appearance. No other parenchymal mass, calculus or hydronephrosis. Right renal vasculature: Patent; 2 arteries, with a small caliber upper pole polar artery arising just above the main and 2 veins in a superior inferior configuration, both without thrombus.. LEFT kidney and vasculature: Left kidney and ureter: No mass, calculus or hydronephrosis. Left renal vasculature: Patent; 2 arteries, with a small caliber upper pole polar artery arising just above the main and conventional LEFT renal vein without thrombus. Retroperitoneal lymphadenopathy and IVC involvement: A few shotty para-aortic lymphadenopathy. No lymphadenopathy. No IVC tumor thrombus. Abdomen: Liver: No mass. Biliary: No bile duct dilation. Gallbladder is absent. Spleen: No mass. No splenomegaly. Pancreas: No mass or duct dilation. Adrenal glands: No mass. GI tract: No dilation or wall thickening. Lymph nodes (other): No abdominal lymphadenopathy. Mesentery/Peritoneum: No ascites or mass. Retroperitoneum: No mass. Vasculature (other): - Abdominal aorta and iliac arteries: Atherosclerotic calcifications of the aorta. No aneurysm. - Celiac and SMA: Patent. - Portal venous system: Patent: - Hepatic veins: Patent. Bones/Soft Tissues: Degenerative changes and mild convex LEFT scoliosis. Lower thorax: No pulmonary parenchymal nodule or pleural effusion. Airplane Mechanic Apprentice (topogram) images: No additional findings. IMPRESSION: 3.3 cm RIGHT upper pole renal neoplasm minimally increased from 3.0 cm the May 2021 study. No advanced disease; no lymphadenopathy, renal vein involvement or adrenal involvement. Transcribe Date/Time: Oct 07 2022 12:15P Dictated by: ANJEL POSEY MD This examination was interpreted and the report reviewed and electronically signed by: ANJEL POSEY MD on Oct 07 2022 12:25PM EST Thank you for allowing us to participate in the care of your patient. Should there be any questions regarding this interpretation, please call [phone]. If you are unable to reach us at the number above, please feel free to contact [facility] at [phone]. [id number] Normal [facility] Office Visiton 08-04-2022 Follow-up visit [id number] Sarah Ellis 1965 F Date Provider Department Center 08/04/2022 Hans-MALIK NI Family History Problem Relation Age of Onset Diabetes Mother Heart attack Mother Other Mother Coronary artery disease Mother Diabetes Father Coronary artery disease Father Heart attack Maternal Grandfather Family Status - Relation Status Age at Mother Father Maternal Grandfather Level of Service:28771 NE OFFICE/OUTPATIENT ESTABLISHED LOW MDM 20-29 MIN Reason for Visit and Comments: Coronary Artery Disease [187] Peripheral artery disease [Other] Normal [facility] Complete Blood Count Auto Di ffon 07-28-2022 Basophils (Bld) [#/Vol] 0.0 10*3/uL Normal 0.0-0.2 [facility] Comment on above: Result Comment: PERF ORMED BY: [place] [address] PATHOLOGIST KAIAWHINA KURA KAUPAPA MAORI YU ACOSTA M.D. Performed By: #### C MP, FE and TIBC, CBC, JAQUELINE, [id number] #### [address] #### EPO, METH #### [facility] , Basophils/100 WBC (Bld) 0.5 % Normal . [facility] Comment on above: Performed By: #### C MP, FE and TIBC, CBC, JAQUELINE, [id number] #### [address] #### EPO, METH #### [facility] , Eosinophils (Bld) [#/Vol] 0.3 10*3/uL Normal 0.0-0.45 [facility] Comment on above: Performed By: #### C MP, FE and TIBC, CBC, JAQUELINE, [id number] #### [address] #### EPO, METH #### [facility] , Eosinophils/100 WBC (Bld) 3.0 % Normal . [facility] Comment on above: Performed By: #### C MP, FE and TIBC, CBC, JAQUELINE, [id number] #### [place] [address] [place] #### EPO, METH #### [facility] , Erythrocyte distribution width (RBC) [Ratio] 21.2 % High 11.9-15.3 [facility] Comment on above: Performed By: #### C MP, FE and TIBC, CBC, JAQUELINE, [id number] #### [place] [address] [place] #### EPO, METH #### [facility] , Hematocrit (Bld) [Volume fraction] 36.9 % Normal 34.0-46.4 [facility] Comment on above: Performed By: #### C MP, FE and TIBC, CBC, JAQUELINE, [id number] #### [place] [address] [place] #### EPO, METH #### [facility] , Hemoglobin (Bld) [Mass/Vol] 12.1 g/dL Normal 11.8-15.4 [facility] Comment on above: Performed By: #### C MP, FE and TIBC, CBC, JAQUELINE, [id number] #### [address] #### EPO, METH #### [facility] , Lymphocytes (Bld) [#/Vol] 2.6 10*3/uL Normal 1.00-4.8 [facility] Comment on above: Performed By: #### C MP, FE and TIBC, CBC, JAQUELINE, [id number] #### [place] [address] [place] #### EPO, METH #### [facility] , Lymphocytes/100 WBC (Bld) 29.5 % Normal . [facility] Comment on above: Performed By: #### C MP, FE and TIBC, CBC, JAQUELINE, [id number] #### [place] [address] [place] #### EPO, METH #### [facility] , MCH (RBC) [Entitic mass] 26.7 pg Normal 24.7-34.3 [facility] Comment on above: Performed By: #### C MP, FE and TIBC, CBC, JAQEULINE, [id number] #### [place] [address] [place] #### EPO, METH #### [facility] , MCV (RBC) [Entitic vol] 81.1 fL Normal 80-100 [facility] Comment on above: Performed By: #### C MP, FE and TIBC, CBC, JAQUELINE, [id number] #### [place] [address] [place] #### EPO, METH #### [facility] , Mean Corpuscular HGB Conc 32.9 g/dL Normal 32.0-35.0 [facility] Comment on above: Performed By: #### C MP, FE and TIBC, CBC, JAQUELINE, [id number] #### [address] #### EPO, METH #### [facility] , Monocytes (Bld) [#/Vol] 0.5 10*3/uL Normal 0.0-0.8 [facility] Comment on above: Performed By: #### C MP, FE and TIBC, CBC, JAQUELINE, [id number] #### [place] [address] [place] #### EPO, METH #### [facility] , Monocytes/100 WBC (Bld) 6.2 % Normal . [facility] Comment on above: Performed By: #### C MP, FE and TIBC, CBC, JAQUELINE, [id number] #### [place] [address] [place] #### EPO, METH #### [facility] , Neutrophils (Bld) [#/Vol] 5.3 10*3/uL Normal 1.8-7.7 [facility] Comment on above: Performed By: #### C MP, FE and TIBC, CBC, JAQUELINE, [id number] #### [place] [address] [place] #### EPO, METH #### [facility] , Neutrophils/100 WBC (Bld) 60.8 % Normal . [facility] Comment on above: Performed By: #### C MP, FE and TIBC, CBC, JAQUELINE, [id number] #### [address] #### EPO, METH #### [facility] , NRBC% 0.1 /100{WBC} Normal 0-0.5 [facility] Comment on above: Performed By: #### C MP, FE and TIBC, CBC, JAQUELINE, [id number] #### [place] [address] [place] #### EPO, METH #### [facility] , Platelet mean volume (Bld) [Entitic vol] 9.1 fL Normal 6.3-10.7 [facility] Comment on above: Performed By: #### C MP, FE and TIBC, CBC, JAQUELINE, [id number] #### [address] #### EPO, METH #### [facility] , Platelets (Bld) [#/Vol] 166 10*3/uL Normal 150-450 [facility] Comment on above: Performed By: #### C MP, FE and TIBC, CBC, JAQUELINE, [id number] #### [place] [address] [place] #### EPO, METH #### [facility] , RBC (Bld) [#/Vol] 4.55 10*6/uL Normal 3.60-5.00 [facility] Comment on above: Performed By: #### C MP, FE and TIBC, CBC, JAQUELINE, [id number] #### [place] [address] [place] #### EPO, METH #### [facility] , WBC (Bld) [#/Vol] 8.7 10*3/uL Normal 3.8-11.6 [facility] Comment on above: Performed By: #### C MP, FE and TIBC, CBC, JAQUELINE, [id number] #### [place] [address] [place] #### EPO, METH #### [facility] , Comprehensive Metabolic Pane mikki 07-28-2022 Albumin [Mass/Vol] 3.9 g/dL Normal 3.5-5.7 [facility] Comment on above: Performed By: #### C MP, FE and TIBC, CBC, JAQUELINE, [id number] #### [address] #### EPO, METH #### [facility] , Albumin/Globulin [Mass ratio] 1.7 {ratio} Normal [facility] Comment on above: Performed By: #### C MP, FE and TIBC, CBC, JAQUELINE, [id number] #### [place] [address] [place] #### EPO, METH #### [facility] , ALP [Catalytic activity/Vol] 116 U/L High 34-104 [facility] Comment on above: Performed By: #### C MP, FE and TIBC, CBC, JAQUELINE, [id number] #### [address] #### EPO, METH #### [facility] , ALT [Catalytic activity/Vol] 14 U/L Normal 7-52 [facility] Comment on above: Performed By: #### C MP, FE and TIBC, CBC, JAQUELINE, [id number] #### [place] [address] [place] #### EPO, METH #### [facility] , Anion gap [Moles/Vol] 12.4 mmol/L Normal 6.0-15.0 [facility] Comment on above: Performed By: #### C MP, FE and TIBC, CBC, JAQUELINE, [id number] #### [address] #### EPO, METH #### [facility] , AST [Catalytic activity/Vol] 10 U/L Low 13-39 [facility] Comment on above: Performed By: #### C MP, FE and TIBC, CBC, JAQUELINE, [id number] #### [place] [address] [place] #### EPO, METH #### [facility] , Bilirubin [Mass/Vol] 0.3 mg/dL Normal 0.3-1.0 [facility] Comment on above: Performed By: #### C MP, FE and TIBC, CBC, JAQUELINE, [id number] #### [address] #### EPO, METH #### [facility] , Calcium [Mass/Vol] 8.2 mg/dL Low 8.6-10.3 [facility] Comment on above: Performed By: #### C MP, FE and TIBC, CBC, JAQUELINE, [id number] #### [place] [address] [place] #### EPO, METH #### [facility] , Chloride [Moles/Vol] 103 mmol/L Normal 98-107 [facility] Comment on above: Performed By: #### C MP, FE and TIBC, CBC, JAQUELINE, [id number] #### [place] [address] [place] #### EPO, METH #### [facility] , CO2 [Moles/Vol] 27.6 mmol/L Normal 21.0-31.0 [facility] Comment on above: Performed By: #### C MP, FE and TIBC, CBC, JAQUELINE, [id number] #### [place] [address] [place] #### EPO, METH #### [facility] , Creatinine [Mass/Vol] 0.95 mg/dL Normal 0.60-1.20 [facility] Comment on above: Performed By: #### C MP, FE and TIBC, CBC, JAQUELINE, [id number] #### [place] [address] [place] #### EPO, METH #### [facility] , Creatinine Clr Calc Pharmacy 83.90 Normal [facility] Comment on above: Performed By: #### C MP, FE and TIBC, CBC, JAQUELINE, [id number] #### [address] #### EPO, METH #### [facility] , GFR/1.73 sq M.predicted MDRD (S/P/Bld) [Vol rate/Area] mL/min/{1.73_m2} Normal [facility] Comment on above: Performed By: #### C MP, FE and TIBC, CBC, JAQUELINE, [id number] #### [place] [address] [place] #### EPO, METH #### [facility] , Globulin (S) [Mass/Vol] 2.3 g/dL Normal [facility] Comment on above: Performed By: #### C MP, FE and TIBC, CBC, JAQUELINE, [id number] #### [place] [address] [place] #### EPO, METH #### [facility] , Glucose [Mass/Vol] 224 mg/dL High 70-100 [facility] Comment on above: Result Comment: [place] Glucose Reference Range is dependent on time and content of last meal. Glucose of more than 200 mg/dL in a nonstressed, ambulatory subject supports the diagnosis of Diabetes Mellitus. ADA recommended reference range Performed By: #### C MP, FE and TIBC, CBC, JAQUELINE, [id number] #### [place] [address] [place] #### EPO, METH #### [facility] , Potassium [Moles/Vol] 4.0 mmol/L Normal 3.5-5.1 [facility] Comment on above: Performed By: #### C MP, FE and TIBC, CBC, JAQUELINE, [id number] #### [place] [address] [place] #### EPO, METH #### [facility] , Protein [Mass/Vol] 6.2 g/dL Low 6.4-8.9 [facility] Comment on above: Performed By: #### C MP, FE and TIBC, CBC, JAQUELINE, [id number] #### [address] #### EPO, METH #### [facility] , Sodium [Moles/Vol] 139 mmol/L Normal 136-145 [facility] Comment on above: Performed By: #### C MP, FE and TIBC, CBC, JAQUELINE, [id number] #### [place] [address] [place] #### EPO, METH #### [facility] , Urea nitrogen [Mass/Vol] 15 mg/dL Normal 7-25 [facility] Comment on above: Performed By: #### C MP, FE and TIBC, CBC, JAQUELINE, [id number] #### [place] [address] [place] #### EPO, METH #### [facility] , Ferritinon 07-28-2022 Ferritin [Mass/Vol] 110.1 ng/mL Normal 11.0-306.8 [facility] Comment on above: Result Comment: PERF ORMED BY: [place] [address] PATHOLOGIST KAIAWHINA KURA KAUPAPA MAORI YU ACOSTA M.D. Performed By: #### C MP, FE and TIBC, CBC, JAQUELINE, [id number] #### [place] [address] [place] #### EPO, METH #### [facility] , Iron and TIBC Profileon % Iron Saturation 26.7 % Normal 20-50 [facility] Comment on above: Performed By: #### C MP, FE and TIBC, CBC, JAQUELINE, [id number] #### [facility] [address] [place] [address] [place] #### EPO, METH #### [facility] , Iron [Mass/Vol] 70 ug/dL Normal 50-212 [facility] Comment on above: Performed By: #### C MP, FE and TIBC, CBC, JAQUELINE, [id number] #### [place] [address] [place] #### EPO, METH #### [facility] , Total Iron Binding Capacity 262 ug/dL Normal 255-450 [facility] Comment on above: Performed By: #### C MP, FE and TIBC, CBC, JAQUELINE, [id number] #### [place] [address] [place] #### EPO, METH #### [facility] , Transferrin [Mass/Vol] 187 mg/dL Low 203-362 [facility] Comment on above: Performed By: #### C MP, FE and TIBC, CBC, JAQUELINE, [id number] #### [place] [address] [place] #### EPO, METH #### [facility] , C. DIFF PCRon 06-18-2022 C. DIFFICILE PCR Negative Normal NEGATIVE [facility] Comment on above: Performed By: #### C DIFPOC #### [facility] [address] [place] [address] [address] Naz Crouch Albumin [Mass/volume] in Ser um or PlasmaOrdered By: Joanne Brown on 06-16-2022 Albumin [Mass/Vol] 3.3 g/dL 2.9-4.4 [facility] IgA [Mass/volume] in Serum o r PlasmaOrdered By: Joanne Kevin on 06-16-2022 IgA [Mass/Vol] 224 mg/dL 87-352 [facility] IgG [Mass/volume] in Serum o r PlasmaOrdered By: Joanne Kevin on 06-16-2022 IgG [Mass/Vol] 1023 mg/dL [phone] [facility] IgM [Mass/volume] in Serum o r PlasmaOrdered By: Joanne Kevin on 06-16-2022 IgM [Mass/Vol] 50 mg/dL 26-217 [facility] Comment on above: Performed at: [facility] [place] [id number] Director: Hieu Willams PhD, Phone: [phone] Immunoglobulin light chains. kappa.free [Mass/volume] in SerumOrdered By: Joanne Brown on 06-16-2022 Immunoglobulin light chains.kappa.free (S) [Mass/Vol] 47.9 mg/L 3.3-19.4 [facility] Immunoglobulin light chains. kappa.free/Immunoglobulin light chains.lambda.free [MassOrdered By: Joanne Kevin on 06-16-2022 Immunoglobulin light chains.kappa.free/Immu noglobulin light chains.lambda.free (S) [Mass ratio] 1.89 0.26-1.65 [facility] Immunoglobulin light chains. lambda.free [Mass/volume] in Serum or PlasmaOrdered By: Joanne Kevin on 06-16-2022 Immunoglobulin light chains.lambda.free [Mass/Vol] 25.3 mg/L 5.7-26.3 [facility] No Panel InformationOrdered By: Joanne Kevin on 06-16-2022 Protein Electrophoresis M-Anam Not observed g/dL Not Observed [facility] Protein Electrophoresis Note See comment . [facility] Comment on above: Protein electrophore sis scan will follow via computer,mail, or mix house tender delivery.Performed at: [facility] [address] [id number] Director: Hieu Willams PhD, Phone: [phone] Serum Immunofixation See comment . [facility] Comment on above: No monoclonality det ected. Protein [Mass/volume] in Ser um or PlasmaOrdered By: Joanne Brown on 06-16-2022 Protein [Mass/Vol] 6.4 g/dL 6.0-8.5 [facility] Serum globulin measurement ( mass/volume)Ordered By: Joanne Brown on 06-16-2022 Globulin (S) [Mass/Vol] 3.1 g/dL 2.2-3.9 [facility] Serum or plasma albumin/glob ulin mass ratioOrdered By: Joanne Brown on 06-16-2022 Albumin/Globulin [Mass ratio] 1.1 {ratio} 0.7-1.7 [facility] Serum or plasma alpha 1 glob ulin measurement by electrophoresis (mass/volume)Ordered By: Joanne Brown on 06-16-2022 Alpha 1 globulin Elph [Mass/Vol] 0.3 g/dL 0.0-0.4 [facility] Serum or plasma alpha 2 glob ulin measurement by electrophoresis (mass/volume)Ordered By: Joanne Brown on 06-16-2022 Alpha 2 globulin Elph [Mass/Vol] 1.0 g/dL 0.4-1.0 [facility] Serum or plasma beta globuli n measurement by electrophoresis (mass/volume)Ordered By: Joanne Brown on 06-16-2022 Beta globulin Elph [Mass/Vol] 1.0 g/dL 0.7-1.3 [facility] Serum or plasma gamma globul in measurement by electrophoresis (mass/volume)Ordered By: Joanne Brown on 06-16-2022 Gamma globulin Elph [Mass/Vol] 0.9 g/dL 0.4-1.8 [facility] Glucose Glucometer (BldC) [M ass/Vol]Ordered By: Bebo Sims on 06-02-2022 Glucose [Mass/Vol] 118 mg/dL [facility] Comment on above: Random Glucose Refer ence Range is dependent on time and content of last meal. Glucose of more than 200 mg/dL in a nonstressed, ambulatory subject supports the diagnosis of Diabetes Mellitus. Office Visiton 05-31-2022 Follow-up visit [id number] Sarah Ellis 1965 F Date Provider Department Center 05/31/2022 MALIK CLAUDIO [facility] Family History Problem Relation Age of Onset Diabetes Mother Heart attack Mother Other Mother Coronary artery disease Mother Diabetes Father Coronary artery disease Father Heart attack Maternal Grandfather Family Status - Relation Status Age at Mother Father Maternal Grandfather Level of Service:[id number] NE OFFICE/OUTPATIENT ESTABLISHED MOD MDM 30-39 MIN Reason for Visit and Comments: Coronary Artery Disease [187] Peripheral Vascular Disease [458] Normal [facility] CBC AUTO DIFFon 04-22-2022 BASO # 0.1 103/ul Normal 0.0-0.1 [facility] Comment on above: Performed By: #### C BC #### [facility] [address] [address] [address] Naz Crouch Basophils/100 WBC (Bld) 0.8 % Normal 0.2-2.0 [facility] Comment on above: Performed By: #### C BC #### [facility] [address] [address] [address] Naz Crouch EO # 0.3 103/ul Normal 0.0-0.7 [facility] Comment on above: Performed By: #### C BC #### [facility] [address] [address] [address] Naz Crouch Eosinophils/100 WBC (Bld) 2.2 % Normal 0.9-7.0 [facility] Comment on above: Performed By: #### C BC #### [facility] [address] [address] [address] Naz Crouch Erythrocyte distribution width (RBC) [Ratio] 20.0 % Critically high 11.0-15.0 [facility] Comment on above: Performed By: #### C BC #### [facility] [address] [address] [address] Naz Crouch Hematocrit (Bld) [Volume fraction] 27.6 % Critically low 36.0-48.0 [facility] Comment on above: Performed By: #### C BC #### [facility] [address] [address] [address] Naz Crouch Hemoglobin (Bld) [Mass/Vol] 7.3 g/dL Critically low 12.0-16.0 [facility] Comment on above: Performed By: #### C BC #### [facility] [address] [address] [address] Naz Crouch IG # 0.09 10e3/ul Critically high 0.00-0.03 [facility] Comment on above: Performed By: #### C BC #### [facility] [address] [place] [address] Dr. Naz Crouch IG % 0.7 % Critically high 0.0-0.5 [facility] Comment on above: Performed By: #### C BC #### [facility] [address] [place] [address] Dr. Naz Crouch LYMPH # 2.3 103/ul Normal 1.2-3.8 [facility] Comment on above: Performed By: #### C BC #### [facility] [address] [place] [address] Dr. Naz Crouch Lymphocytes/100 WBC (Bld) 17.8 % Critically low 20.5-60.0 [facility] Comment on above: Performed By: #### C BC #### [facility] [address] [place] [address] Dr. Naz Crouch MANUAL DIFF REQ NO Normal [facility] Comment on above: Performed By: #### C BC #### [facility] [address] [place] [address] Dr. Naz Crouch MCH (RBC) [Entitic mass] 18.3 pg Critically low 26.7-34.0 [facility] Comment on above: Performed By: #### C BC #### [facility] [address] [place] [address] Dr. Nza Crouch MCHC (RBC) [Mass/Vol] 26.4 g/dL Critically low 29.9-35.2 [facility] Comment on above: Performed By: #### C BC #### [facility] [address] [address] [address] Naz Crouch MCV (RBC) [Entitic vol] 69.2 fL Critically low 81.0-99.0 [facility] Comment on above: Performed By: #### C BC #### [facility] [address] [address] [address] Naz Crouch MONO # 0.8 103/ul Normal 0.3-0.8 [facility] Comment on above: Performed By: #### C BC #### [facility] [address] [address] [address] Naz Crouch Monocytes/100 WBC (Bld) 6.5 % Normal 1.7-12.0 [facility] Comment on above: Performed By: #### C BC #### [facility] [address] [place] [address] Dr. Naz Crouch NEUT # 9.3 103/ul Critically high 1.4-6.5 [facility] Comment on above: Performed By: #### C BC #### [facility] [address] [place] [address] Dr. Naz Crouch Neutrophils/100 WBC (Bld) 72.0 % Normal 43.0-75.0 [facility] Comment on above: Performed By: #### C BC #### [facility] [address] [place] [address] Dr. Naz Crouch Platelet mean volume (Bld) [Entitic vol] 9.4 fL Critically low 9.5-13.5 [facility] Comment on above: Performed By: #### C BC #### [facility] [address] [place] [address] Dr. Naz Crouch PLT 318 103/ul Normal 150-450 [facility] Comment on above: Performed By: #### C BC #### [facility] [address] [place] [address] Dr. Naz Crouch RBC 3.99 106/ul Critically low 4.20-5.40 [facility] Comment on above: Performed By: #### C BC #### [facility] [address] [place] [address] Dr. Naz Crouch WBC 13.0 103/ul Critically high 4.0-11.0 [facility] Comment on above: Performed By: #### C BC #### [facility] [address] [place] [address] Dr. Naz Crouch GLYCOHEMOGLOBIN A1Con 2022 ADA RECOMMENDATION SEE BELOW Normal [facility] Comment on above: Result Comment: ADA RECOMMENDED LIMIT 4.0 - 6.0 ADA THERAPEUTIC TARGET < 7.0 ACTION SUGGESTED > 7.0 Performed By: #### A 1C #### [facility] [address] [place] [address] Dr. Naz Crouch Glucose [Mass/Vol] 192 mg/dL Normal [facility] Comment on above: Performed By: #### A 1C #### [facility] [address] [place] [address] Dr. Naz Crouch HbA1c (Bld) [Mass fraction] 8.3 % Critically high 4.5-6.2 [facility] Comment on above: Performed By: #### A 1C #### [facility] [address] [place] [address] Dr. Naz Crouch MICROALBUMIN, RAND URon mALB 4.7 mg/L Normal <=30.0 [facility] Comment on above: Performed By: #### M ALBR #### [facility] [address] [place] [address] Dr. Naz Crouch PROF 14(COMP METB)on 023 Albumin [Mass/Vol] 3.1 g/dL Critically low 3.4-5.0 [facility] Comment on above: Performed By: #### C MP, T4, TSH #### [facility] [address] [place] [address] Dr. Naz Crouch Albumin/Globulin [Mass ratio] 0.8 {ratio} Normal [facility] Comment on above: Performed By: #### C MP, T4, TSH #### [facility] [address] [place] [address] Dr. Naz Crouch ALP [Catalytic activity/Vol] 176 U/L Critically high 46-116 [facility] Comment on above: Performed By: #### C MP, T4, TSH #### [facility] [address] [place] [address] Dr. Naz Crouch ALT [Catalytic activity/Vol] 18 U/L Normal 14-59 [facility] Comment on above: Performed By: #### C MP, T4, TSH #### [facility] [address] [place] [address] Dr. Naz Crouch Anion gap [Moles/Vol] 12.9 mmol/L Normal [facility] Comment on above: Performed By: #### C MP, T4, TSH #### [facility] [address] [place] [address] Dr. Naz Crouch AST [Catalytic activity/Vol] 12 U/L Critically low 15-37 [facility] Comment on above: Performed By: #### C MP, T4, TSH #### [facility] [address] [place] [address] Dr. Naz Crouch Bilirubin [Mass/Vol] 0.2 mg/dL Normal 0.2-1.0 [facility] Comment on above: Performed By: #### C MP, T4, TSH #### [facility] [address] [place] [address] Dr. Naz Crouch Calcium [Mass/Vol] 8.8 mg/dL Normal 8.5-10.1 [facility] Comment on above: Performed By: #### C MP, T4, TSH #### [facility] [address] [place] [address] Dr. Naz Crouch Chloride [Moles/Vol] 104 mmol/L Normal 98-107 [facility] Comment on above: Performed By: #### C MP, T4, TSH #### [facility] [address] [place] [address] Dr. Naz Crouch CO2 [Moles/Vol] 27.5 mmol/L Normal 21.0-32.0 [facility] Comment on above: Performed By: #### C MP, T4, TSH #### [facility] [address] [address] [address] Naz Crouch Creatinine [Mass/Vol] 0.89 mg/dL Normal 0.55-1.02 [facility] Comment on above: Performed By: #### C MP, T4, TSH #### [facility] [address] [place] [address] Dr. Naz Crouch EGFR-AF JORDANIAN >60 Normal >=60 [facility] Comment on above: Performed By: #### C MP, T4, TSH #### [facility] [address] [place] [address] Dr. Naz Crouch EGFR-NON AF JORDANIAN >60 Normal >=60 [facility] Comment on above: Performed By: #### C MP, T4, TSH #### [facility] [address] [place] [address] Dr. Naz Crouch Globulin (S) [Mass/Vol] 3.9 g/dL Normal [facility] Comment on above: Performed By: #### C MP, T4, TSH #### [facility] [address] [place] [address] Dr. Naz Crouch Glucose [Mass/Vol] 206 mg/dL Critically high 74-106 [facility] Comment on above: Performed By: #### C MP, T4, TSH #### [facility] [address] [place] [address] Dr. Naz Crouch Potassium [Moles/Vol] 4.4 mmol/L Normal 3.5-5.1 [facility] Comment on above: Performed By: #### C MP, T4, TSH #### [facility] [address] [place] [address] Dr. Naz Crouch Protein [Mass/Vol] 7.0 g/dL Normal 6.4-8.2 [facility] Comment on above: Performed By: #### C MP, T4, TSH #### [facility] [address] [place] [address] Dr. Naz Crouch Sodium [Moles/Vol] 140 mmol/L Normal 136-145 [facility] Comment on above: Performed By: #### C MP, T4, TSH #### [facility] [address] [address] [address] Naz Crouch Urea nitrogen [Mass/Vol] 15.0 mg/dL Normal 7.0-18.0 [facility] Comment on above: Performed By: #### C MP, T4, TSH #### [facility] [address] [address] [address] Naz Crouch Urea nitrogen/Creatinine [Mass ratio] 16.9 mg/mg Normal [facility] Comment on above: Performed By: #### C MP, T4, TSH #### [facility] [address] [address] [address] Naz Crouch T4on 04-22-2022 T4 [Mass/Vol] 4.60 ug/dL Critically low 4.80-13.90 [facility] Comment on above: Performed By: #### C MP, T4, TSH #### [facility] [address] [address] [address] Naz Crouch TSHon 04-22-2022 TSH 2.208 uIU/mL Normal 0.358-3.74 0 [facility] Comment on above: Performed By: #### C MP, T4, TSH #### [facility] [address] [address] [address] KIDNEY WO/W IVCONon 04-05 [facility] XR CHEST 2V FRONTAL/LATon [facility] Ambulatory Visit Summaryon 0 03-05-2022 Ambulatory Visit Summary ELMER ELLIS :1965 Visit Date:03/05/2022 Ambulatory Visit Instructions Your Diagnosis Right renal mass Incomplete bladder emptying Tests Performed Urnls Dip Stick Auto w/o Microscopy POC 23490 Your Care Team Attending Physician - VENKAT ASWYER, Jluis Jacinto Primary Care Physician - Dawit Ba DO This Is Your Medications List Contact prescribing physician if questions or concerns aspirin (aspirin 81 mg Oral EC Tab) atorvastatin (atorvastatin 80 mg Tab) cholecalciferol (Vitamin D3) clopidogrel (Plavix 75 mg Tab) duloxetine (duloxetine 60 mg Cap-DR) fexofenadine (Luz) furosemide (furosemide 40 mg Tab) gabapentin (gabapentin 300 mg Cap) insulin lispro-insulin lispro protamine (Humalog 75/25 Injection-Insulin) methocarbamol (Robaxin 500 mg Tab) metoprolol (metoprolol 25 mg ER Tab) metoprolol (metoprolol 50 mg ER Tab) multivitamin with minerals (Centrum Silver) rivaroxaban (Xarelto 10 mg oral tablet) Procedures Performed Abdominal hysterectomy, Appendectomy, Bilateral tubal ligation, Cholecystectomy. Discharge Vitals Height 163 cm Height 64 in Weight 116 kg Weight 255.2 lb BMI 43.66 What to do next You Need to Schedule the Following Appointments Follow Up with VENKAT SAWYER, RAPHAEL Jimenez When: Where: [address] [place], [place] [address]- Someone Will Contact You Regarding These Appointments [facility] External Ambulatory Referral, Urology, [facility]. Renal mass, possible R partial nephrectomy., 03/05/22 11:07:00 EST Medications What How Much When Instructions Unchanged aspirin (aspirin 81 mg Oral EC Tab) By Mouth Every day Contact prescribing physician if questions or concerns Unchanged atorvastatin (atorvastatin 80 mg Tab) 1 Tablets By Mouth Every day Contact prescribing physician if questions or concerns Unchanged cholecalciferol (Vitamin D3) Contact prescribing physician if questions or concerns Unchanged clopidogrel (Plavix 75 mg Tab) By Mouth Every day Contact prescribing physician if questions or concerns Unchanged duloxetine (duloxetine 60 mg Cap-DR) By Mouth Every day Contact prescribing physician if questions or concerns Unchanged fexofenadine (Luz) By Mouth Contact prescribing physician if questions or concerns Unchanged furosemide (furosemide 40 mg Tab) By Mouth Every day Contact prescribing physician if questions or concerns Unchanged gabapentin (gabapentin 300 mg Cap) 1 Capsules By Mouth 2 times a day Contact prescribing physician if questions or concerns Unchanged insulin lispro-insulin lispro protamine (Humalog 75/ 25 Injection-Insulin) Subcutaneous Twice a day (before meals) Contact prescribing physician if questions or concerns Unchanged methocarbamol (Robaxin 500 mg Tab) By Mouth 4 times a day Contact prescribing physician if questions or concerns Unchanged metoprolol (metoprolol 25 mg ER Tab) By Mouth Every day Contact prescribing physician if questions or concerns Unchanged metoprolol (metoprolol 50 mg ER Tab) By Mouth Every day Contact prescribing physician if questions or concerns Unchanged multivitamin with minerals (Centrum Silver) By Mouth Every day Contact prescribing physician if questions or concerns Unchanged rivaroxaban (Xarelto 10 mg oral tablet) By Mouth Every day Contact prescribing physician if questions or concerns Test Results Urnls Dip Stick Auto w/o Microscopy POC 89900 (03/05/2022) Bilirubin Urine Dipstick - 1+ Small Blood Urine Dipstick - Negative Glucose Urine Dipstick - 2+ 500 mg/dl Ketones Urine Dipstick - Trace - 5 mg/dl Leukocytes Urine Dipstick - Negative Nitrite Urine Dipstick - Negative Protein Urine Dipstick - 2+ (100 mg/dl) Specific [place] Urine Dipstick - >=1.030 Urine Appearance Urine Dipstick - Clear Urine Color Urine Dipstick - Yellow Urobilinogen Urine Dipstick - Normal 0.2-1 EU/dl pH Urine Dipstick - 5.5 Allergies No Known Allergies Problems Ongoing - Any problem that you are currently receiving treatment for. Arthritis Depression Diabetes Gallstone Incomplete bladder emptying Right renal mass Smoker Education Materials Renal Mass A renal mass is a growth in the kidney. A renal mass may be found while performing an MRI, CT scan, or ultrasound for other problems of the abdomen. Certain types of cancers, infections, or injuries can cause a renal mass. A renal mass that is cancerous (malignant) may grow or spread quickly. Others are harmless (benign). What are common types of renal masses? Renal masses include: ? Tumors. These may be cancerous (malignant) or noncancerous (benign). ? The most common type of kidney cancer is renal cell carcinoma. ? The most common benign tumors of the kidney include renal adenomas, oncocytomas, and angiomyolipoma (AML). ? Cysts. These are fluid-filled sacs that form on or in the kidney. ? It is not always known what causes a cyst to develop in or on the (more content not included)... Normal [facility] Patient Educationon 03-05-19 23 Patient Education Urology Renal Mass A renal mass is a growth in the kidney. A renal mass may be found while performing an MRI, CT scan, or ultrasound for other problems of the abdomen. Certain types of cancers, infections, or injuries can cause a renal mass. A renal mass that is cancerous (malignant) may grow or spread quickly. Others are harmless (benign). What are common types of renal masses? Renal masses include: ? Tumors. These may be cancerous (malignant) or noncancerous (benign). ? The most common type of kidney cancer is renal cell carcinoma. ? The most common benign tumors of the kidney include renal adenomas, oncocytomas, and angiomyolipoma (AML). ? Cysts. These are fluid-filled sacs that form on or in the kidney. ? It is not always known what causes a cyst to develop in or on the kidney. ? Most kidney cysts do not cause symptoms and do not need to be treated. What type of testing might I need? Your health care provider may recommend that you have tests to diagnose the cause of your renal mass. The following tests may be done if a renal mass is found: ? Physical exam. ? Blood tests. ? Urine tests. ? Imaging tests, such as ultrasound, CT scan, or MRI. ? Biopsy. This is a small sample that is removed from the renal mass and tested in a lab. The exact tests and how often they are done will depend on: ? The size and appearance of the renal mass. ? Risk factors or medical conditions that increase your risk for problems. ? Any symptoms associated with the renal mass, or concerns that you have about it. Tests and physical exams may be done once, or they may be done regularly for a period of time. Tests and exams that are done regularly will help monitor whether the mass is growing and beginning to cause problems. What are common treatments for renal masses? Treatment is not always needed for this condition. Your health care provider may recommend careful monitoring (watchful waiting) and regular tests and exams. Treatment will depend on the cause of the mass. Follow these instructions at home: What you need to do at home will depend on the cause of the mass. Follow the instructions that your health care provider gives to you. In general: ? Take [id number] and prescription medicines only as told by your health care provider. ? If you are prescribed an antibiotic medicine, take it as told by your health care provider. Do not stop taking the antibiotic even if you start to feel better. ? Follow any restrictions that are given to you by your health care provider. ? Keep all follow-up visits as told by your health care provider. This is important. ? You may need to see your health care provider once or twice a year to have CT scans and ultrasounds done. These tests will show if your renal mass has changed or grown bigger. Contact a health care provider if you: ? Have pain in the side or back (flank pain). ? Have a fever. ? Feel full soon after eating. ? Have pain or swelling in the abdomen. ? Lose weight. Get help right away if: ? Your pain gets worse. ? There is blood in your urine. ? You cannot urinate. ? You have chest pain. ? You have trouble breathing. Summary ? A renal mass is a growth in the kidney. It may be cancerous (malignant) and grow or spread quickly, or it may be harmless (benign). ? Renal masses may be found while performing an MRI, CT scan, or ultrasound for other problems of the abdomen. ? Your health care provider may recommend that you have tests to diagnose the cause of your renal mass. This may include a physical exam, blood tests, urine tests, imaging, or a biopsy. ? Treatment is not always needed for this condition. Careful monitoring (watchful waiting) may be recommended. This information is not intended to replace advice given to you by your health care provider. Make sure you discuss any questions you have with your health care provider. Document Released: 09/04/2014 Document Revised: 03/16/2018 Document Reviewed: 03/16/2018 [facility] Patient Education ? 2020 Dónde. Normal [facility] Urology Office/Clinic Noteon 03-05-2022 Urology Office/Clinic Note Chief Complaint 6m CT HPI Staff 6m CT due to Rt Renal Mass. Additional DX: Nocturia & Incomplete Bladder Emptying. No Urology medications. CT done 02/01/22 Still having to push on stomach/squeeze it in to empty bladder. Loss of bladder control when coughing. Wears a pad. Changes a couple times during the day. Denies flank pain, Denies pain/burning and visible blood in urine. History of Present Illness Tests reviewed: reviewed UA and CT scan. I have reviewed the previous health record information and history for this patient from Dr. Robledo. I have reviewed and verified the staff HPI to be accurate for this encounter. There have been no associated fever, chills, flank pain, or blood in the urine. Denies any urinary infections since last encounter. Review of Systems PHQ Score Initial Depression Screen Score: 0 ROS - Provider Constitutional: denies weight loss, denies hot flashes. Eyes: denies eye problems. Gastrointestinal: denies nausea, denies vomiting. Cardiovascular: denies chest pain or angina. Integumentary: no dryness Musculoskeletal: denies musculoskeletal symptoms. ENMT: denies otolaryngeal symptoms. Respiratory: no shortness of breath. Heme/Lymph: denies easy bleeding tendency, denies easy bruising tendency. Psychiatric: no confusion, no anxiety. Genitourinary: denies vaginal discharge, denies incontinence, denies dysuria, denies hematuria, denies urinary frequency, denies amenorrhea, denies menorrhagia, denies abnormal bleeding, denies pelvic pain, denies genital sores, and denies decreased libido. Physical Exam Vitals & Measurements HT: 64 in HT: 163 cm WT: 116 kg WT: 255.2 lb BMI: 43.66 General Appearance: alert , no acute distress, well nourished, well developed female. Genitourinary: bladder nonpalpable, no flank pain. Assessment/Plan 1. Right renal mass (N28.89: Other specified disorders of kidney and ureter) CT scan done 04/26/21 and 06/15/21 shows 2.5 x 2.8 cm mass. Patient had presented to ER due to abdomen pain and they were checking for pancreatitis, and by doing CT scan renal mass was found incidentally. Patient had Cholecystectomy surgery in 1984 and was cut open for this surgery. Repeat CT scan done 02/01/22 - heterogeneous early enhancing right renal mass measuring 2.9 x 2.6 x 2.6 cm. Explained to the pt. that the mass has grown and I recommend a referral to tertiary care for possible R partial nephrectomy. External referral placed to [facility]. Pt. understands her use of tobacco increases her risk of cancer. Follow up with our office after surgery. All questions/concerns were discussed. Pt. to call the office if sheencounters any issues prior. Pt. acknowledges understanding. 2. Incomplete bladder emptying (R33.9: Retention of urine, unspecified) Pt. has to push on her bladder to fully empty. She was advised to lean forward and press on bladder to facilitate emptying. Denies any infections. UA today neg. #3. Proteinuria UA today shows 100mg of protein. Follow-up With When Contact Information VENKAT SAWYER, Jluis Jacinto, URL [facility] [place] [place] [address]- Additional Instructions: Referral for renal mass Patient Education Renal Mass I, Sophy Simmons, personally scribed for Dr. Robledo on 03/05/2022 11:09:15. . Documentation recorded by the isabelleibSophy gallardo, accurately reflects the services(s) I performed and decisions made by me. Authenticated by Dr. Robledo on 03/05/2022 11:17:19. Problem List/Past Medical History Ongoing Arthritis Depression Diabetes Gallstone Incomplete bladder emptying Right renal mass Smoker Historical No qualifying data Procedure/Surgical History Abdominal hysterectomy, Appendectomy, Bilateral tubal ligation, Cholecystectomy. Medications Luz, Oral aspirin 81 mg Oral EC Tab, Oral, Daily atorvastatin 80 mg Tab, 80 mg= 1 tab(s), Oral, Daily Centrum Silver, Oral, Daily duloxetine 60 mg Cap-DR, Oral, Daily furosemide 40 mg Tab, Oral, Daily gabapentin 300 mg Cap, 300 mg= 1 cap(s), Oral, BID Humalog 75/25 Injection-Insulin, SubCutaneous, BIDAC metoprolol 25 mg ER Tab, Oral, Daily metoprolol 50 mg ER Tab, Oral, Daily Plavix 75 mg Tab, Oral, Daily Robaxin 500 mg Tab, Oral, QID Vitamin D3 Xarelto 10 mg oral tablet, Oral, Daily Allergies No Known Allergies Social History Alcohol Substance Abuse Tobacco 10 or more cigarettes (1/2 pack or more)/day in last 30 days Tobacco Use:. Cigarettes, 03/05/2022 Family History Arthritis: Mother. Cancer: Sister. Diabetes clinic: Mother and Father. Hypertension: Father. Kidney stone: Sister. Immunizations Vaccine Date Status influenza virus vaccine, inactivated 12/18/2021 Recorded influenza virus vaccine, inactivated 02/25/2021 Recorded SARS-CoV-2 (COVID-19) mRNA BNT-162b2 vax 02/25/2021 Recorded influenza virus vaccine, inactivated 11/21/2020 Recorde (more content not included)... Normal [facility] Comment on above: Result Comment: Elec tronically Signed By: Jluis ROBLEDO MD\.br\Date and Time Signed: 03/05/22 11:17 EST\.br\Electronically Co-Signed By: Sophy Simmons.br\Date and Time Co-Signed: 03/05/22 11:10 EST\.br\Electronically Co-Signed By: Sophy Simmons\christie\Date and Time Co-Signed: 03/05/22 11:11 EST Lab Reportson 02-05-2022 Lab Reports [id number]#[id number]:127 Normal [facility] RAD - CT Reporton 02-05-2022 RAD - CT Report [id number]:127 Normal [facility] RAD - CT Report [id number]:127 Normal [facility] CT ABD/PELV W CONon 02-03-20 CT ABD/PELV W CON EXAMINATION: CT ABD/ PELV W CON HISTORY: Renal mass ; right renal neoplasm for 6 months COMPARISON: CT abdomen pelvis 06/15/2021 TECHNIQUE: Axial, Coronal, and Sagittal images were obtained without and/or with IV contrast as indicated by examination type. Dose reduction techniques were achieved by using automated exposure control and/or adjustment of mA and/or kV according to patient size and/or use of iterative reconstruction technique. FINDINGS: LUNG BASES: No visible pulmonary or pleural disease. LIVER: No enlargement, atrophy, suspicious density, or significant focal lesion. BILIARY: Cholecystectomy. PANCREAS: No lesion, fluid collection, or abnormal duct dilatation. SPLEEN: No enlargement or focal lesion. ADRENALS: No mass or enlargement. KIDNEYS: No mass, obstruction, or calcification. BOWEL/MESENTERY: Heterogeneous early enhancing right renal mass, 2.9 x 2.6 x 2.6 cm. AORTA/VASCULAR: No aneurysm or dissection. RETROPERITONEUM: No mass or adenopathy. LYMPH NODES: No adenopathy. URINARY BLADDER: No visible focal wall thickening, lesion, or calculus. PELVIC ORGANS: Hysterectomy. ABDOMINAL WALL: No mass or hernia. BONES: L5-S1 marked degenerative disc disease. No bony lesion or fracture. OTHER: Negative. IMPRESSION: 1. Heterogeneous, enhancing right renal mass which continues to increase increased slowly in size, now maximum 2.9 cm in diameter, favoring renal cell carcinoma. 2. No evidence of metastatic disease. 3. Marked degenerative disc disease L5-S1. Electronically authenticated by: MICHOACANO MARTIN Date: 2022-02-02 08:28 Normal [facility] Reminderson 02-02-2022 Reminders - From: Tahmina Hanson To: EU - Recalls Robledo; Sent: 07/29/2021 07:40:04 EDT Show up: 12/22/2021 07:40:00 EDT Subject: Ct scan Reminder/Recall Pt needs Ct scan ABD/Pelvis with contrast prior to Jan appt will send order to [facility]. [facility] never received her order will re fax to [facility] nothing at [facility] yet and unable to get ahold of CS pt will call to schedule she doesnt have insurance. CT done 02/01/2022 at [facility] will drop results into pt's chart has f/u 03/01/2022 Normal [facility] CREATININEon 02-01-2022 Creatinine [Mass/Vol] 1.00 mg/dL Normal 0.55-1.02 [facility] Comment on above: Performed By: #### C SERGEY #### [facility] [address] [place] [address] Dr. Naz Crouch EGFR-AF JORDANIAN >60 Normal >=60 [facility] Comment on above: Performed By: #### C SERGEY #### [facility] [address] [address] [address] Naz Crouch EGFR-NON AF JORDANIAN 57 mL/min/1.73m2 Critically low >=60 [facility] Comment on above: Performed By: #### C SERGEY #### [facility] [address] [id number] Dr. Naz Crouch Physician Orderon 01-11-2022 Physician Order [id number] Normal [facility] CNOVon 11-09-2021 CNOV Office Visit (AGPOB1 ) ELMER ELLIS ([id number]) 1965 F Date Time Provider Department 11/09/21 1:45 PM LILLY TONY During your visit today, we recorded the following information about you: Respiration Weight Height 18/minute 120.7 kg 1.626 m Lilly Tony MD 11/09/2021 2:14 PM Signed ORTHOPAEDIC OFFICE NOTE CHIEF COMPLAINT: Follow-up left ankle fracture HISTORY OF PRESENT ILLNESS: Elmer Ellis is a 56 year old female who presents for Follow-up evaluation of left ankle fracture sustained on 09/12/2021. Overall the patient is doing well. For the most part she is pain-free. She is transition her self to weightbearing as tolerated using a walker boot. She is not requiring any assistive device. She denies current fevers chills nausea vomiting weight loss fatigue or malaise. Reviewed nursing note and current pain scale. History reviewed. No pertinent past medical history. History reviewed. No pertinent surgical history. History reviewed. No pertinent family history. Social History Tobacco Use Smoking status: Every Day Types: Cigarettes Smokeless tobacco: Never Substance Use Topics Alcohol use: Not Currently Drug use: Yes Types: Marijuana MEDICATIONS: Current Outpatient Medications Medication Sig DULoxetine (CYMBALTA) 60 mg capsule duloxetine 60 mg capsule,delayed release TAKE 1 CAPSULE BY MOUTH EVERY DAY atorvastatin (LIPITOR) 80 mg tablet Take 80 mg by mouth once daily. fexofenadine (LUZ) 180 mg tablet fexofenadine 180 mg tablet TAKE 1 TABLET BY MOUTH EVERY DAY gabapentin (NEURONTIN) 300 mg capsule Take 600 mg by mouth twice daily. MV with Ply-Gfjiruim-Ybquzq (CENTRUM SILVER) 0.4 mg-300 mcg- 250 mcg tab Take by mouth. insulin 75/25 lispro protamine/lispro units/mL (HUMALOG MIX 75-25,U-100,INSULN) 100 units/mL susp as directed. HYDROcodone-acetaminophen (NORCO) 5-325 mg per tablet hydrocodone 5 mg-acetaminophen 325 mg tablet TAKE 1 TO 2 TABLETS BY MOUTH EVERY DAY AT BEDTIME NEEDED pnfhrccm-blx-xrbk-FA-lutein (CENTRUM SILVER WOMEN) 8 mg iron-400 mcg-300 mcg tab furosemide (LASIX) 40 mg tablet furosemide 40 mg tablet TAKE 1 AND 1/2 TABLETS BY MOUTH DAILY clopidogrel (PLAVIX) 75 mg tablet clopidogrel 75 mg tablet TAKE 1 TABLET BY MOUTH EVERY DAY metoprolol succinate ER (TOPROL XL) 25 mg 24 hr tablet metoprolol succinate ER 25 mg tablet,extended release 24 hr TAKE 1 TABLET BY MOUTH DAILY (ALONG WITH THE 50MG TABLET FOR 75 MG TOTAL DAILY) metoprolol succinate ER (TOPROL XL) 50 mg 24 hr tablet metoprolol succinate ER 50 mg tablet,extended release 24 hr TAKE 1 TABLET BY MOUTH EVERY DAY rivaroxaban (XARELTO) 10 mg tablet Xarelto 10 mg tablet metFORMIN (GLUCOPHAGE) 1,000 mg tablet Take 1,000 mg by mouth twice daily. cholecalciferol (VITAMIN D3) 5,000 unit tab Vitamin D3 Refills(s) 0 Start Date: 07/27/21 Status: Ordered HYDROcodone-Acetaminophen 5-300 mg tab Take 1 tablet by mouth every 8 hours as needed for pain. methocarbamol (ROBAXIN) 500 mg tablet Take 500 mg by mouth four times daily. esomeprazole mag/glycerin (ESOMEP-EZS ORAL) Take by mouth. No current facility-administered medications for this visit. ALLERGIES: ALLERGIES No Known Allergies PHYSICAL EXAMINATION: Resp 18 Ht 5' 4 (1.63m) Wt 266 lb 3.2 oz (120.7kg) BMI 45.67 kg/(m2). General Appearance: Well appearing, alert, in no acute distress, well-hydrated, well nourished. and Obese Skin: Skin color, texture, turgor normal, no suspicious rashes or lesions. Psych: Patient is alert and oriented to person, time and place. Mood and affect are normal. Respiratory: Breathing is symmetric and unlabored Gait: The patient was examined in a wheelchair today. Extremities: Left lower extremity is examined. Skin is intact without erythema or surgical scar. There is mild swelling.Tenderness is resolved. Range of motion of the ankle is relatively pain-free. Lymphatic: There is no palpable lymphadenopathy Peripheral Pulses: Normal. Neurologic: Bilateral lower extremities were examined. There is 5/5 strength with hip flexion, knee extension, dorsiflexion, EHL, plantar flexion. Sensation intact in all nerve dermatomes IMAGES: Physician office building radiographs, 11/09/2021. AP, lateral mortise views of the left ankle were obtained and reviewed. Nondisplaced fracture of the medial malleolus is difficult to appreciate on this exam. The talus is well-seated underneath the plafond. There is no destructive lesion appreciable. Soft tissues otherwise unremarkable. Plan ASSESSMENT AND PLAN: 1. Closed fracture of left ankle, initial encounter - ICD9: 824.8, ICD10: S82.892A Functional Plan: Patient is a 56-year-old female presenting for follow-up evaluation of left ankle fracture sustained on 09/12/2021. Overall she is doing well. For the most part she is pain-free. She has been ambula (more content not included)... Normal [facility]13-20[facility] ELMER ELLIS ([id number]) 1965 F Date Time Provider Department 10/13/21 LILLY TONY During your visit today, we recorded the following information about you: Filomena Madrigal 10/13/2021 11:24 AM Signed Received voicemail from patient stating she is having worsening pain in her L foot after transitioning to a walking boot yesterday. Called patient who stated that she is having 10/10 pain inside her L heel. Patient took her boot off which makes the pain even worse, it also worsens when she elevates. Patient denies any swelling or bruising, cannot bear any weight. Patient has taken 1 Van Dyne about an hour ago and said it is not helping the pain at all. Advised I would send message to and call patient once direction is received. Patient understood and had no further questions. Filomena Madrigal October 13, 2021 11:23 AM Allergies As of Date: 10/13/2021 (No Known Allergies) Date Reviewed: 10/12/2021 Reviewed by: Felicia Valle MA - Fully Assessed Reason for Visit: Patient Update [1234] Prescriptions as of 10/13/2021 - DULoxetine (CYMBALTA) 60 mg capsule duloxetine 60 mg capsule,delayed release TAKE 1 CAPSULE BY MOUTH EVERY DAY - atorvastatin (LIPITOR) 80 mg tablet Take 80 mg by mouth once daily. - fexofenadine (LUZ) 180 mg tablet fexofenadine 180 mg tablet TAKE 1 TABLET BY MOUTH EVERY DAY - gabapentin (NEURONTIN) 300 mg capsule Take 600 mg by mouth twice daily. - MV with Bdx-Pmwtxzqf-Lhqlos (CENTRUM SILVER) 0.4 mg-300 mcg- 250 mcg tab Take by mouth. - insulin 75/25 lispro protamine/lispro units/mL (HUMALOG MIX 75-25,U-100,INSULN) 100 units/mL susp as directed. - HYDROcodone-acetaminophen (NORCO) 5-325 mg per tablet hydrocodone 5 mg-acetaminophen 325 mg tablet TAKE 1 TO 2 TABLETS BY MOUTH EVERY DAY AT BEDTIME NEEDED - fepoaiox-vig-mrhh-FA-lutein (CENTRUM SILVER WOMEN) 8 mg iron-400 mcg-300 mcg tab - furosemide (LASIX) 40 mg tablet furosemide 40 mg tablet TAKE 1 AND 1/2 TABLETS BY MOUTH DAILY - clopidogrel (PLAVIX) 75 mg tablet clopidogrel 75 mg tablet TAKE 1 TABLET BY MOUTH EVERY DAY - metoprolol succinate ER (TOPROL XL) 25 mg 24 hr tablet metoprolol succinate ER 25 mg tablet,extended release 24 hr TAKE 1 TABLET BY MOUTH DAILY (ALONG WITH THE 50MG TABLET FOR 75 MG TOTAL DAILY) - metoprolol succinate ER (TOPROL XL) 50 mg 24 hr tablet metoprolol succinate ER 50 mg tablet,extended release 24 hr TAKE 1 TABLET BY MOUTH EVERY DAY - rivaroxaban (XARELTO) 10 mg tablet Xarelto 10 mg tablet - metFORMIN (GLUCOPHAGE) 1,000 mg tablet Take 1,000 mg by mouth twice daily. - cholecalciferol (VITAMIN D3) 5,000 unit tab Vitamin D3 Refills(s) 0 Start Date: 07/27/21 Status: Ordered - HYDROcodone-Acetaminophen 5-300 mg tab Take 1 tablet by mouth every 8 hours as needed for pain. - methocarbamol (ROBAXIN) 500 mg tablet Take 500 mg by mouth four times daily. - esomeprazole mag/glycerin (ESOMEP-EZS ORAL) Take by mouth. Problem List As Of Date: 10/13/2021 (None) Encounter Status:Closed by FILOMENA MADRIGAL on 10/13/21 Normal [facility] CNOVon 10-12-2021 CNOV Office Visit (AGPOB1 ) ELMER ELLIS ([id number]) 1965 F Date Time Provider Department 10/12/21 1:15 PM LILLY TONY AGPOB1 During your visit today, we recorded the following information about you: Respiration Weight Height 20/minute 117.9 kg 1.626 m Lilly Tony MD 10/19/2021 12:03 AM Signed ORTHOPAEDIC OFFICE NOTE CHIEF COMPLAINT: Follow-up left ankle fracture HISTORY OF PRESENT ILLNESS: Elmer Ellis is a 55 year old female who presents for Follow-up evaluation of left ankle fracture sustained on 09/12/2021. Overall patient is doing well. She has been compliant with nonweightbearing. She is not having any pain. She has been ambulating with the assistance of a wheelchair. She denies current fevers chills nausea vomiting weight loss fatigue or malaise. Reviewed nursing note and current pain scale. History reviewed. No pertinent past medical history. History reviewed. No pertinent surgical history. History reviewed. No pertinent family history. Social History Tobacco Use Smoking status: Every Day Types: Cigarettes Smokeless tobacco: Never Substance Use Topics Alcohol use: Not Currently Drug use: Yes Types: Marijuana MEDICATIONS: Current Outpatient Medications Medication Sig DULoxetine (CYMBALTA) 60 mg capsule duloxetine 60 mg capsule,delayed release TAKE 1 CAPSULE BY MOUTH EVERY DAY atorvastatin (LIPITOR) 80 mg tablet Take 80 mg by mouth once daily. fexofenadine (LUZ) 180 mg tablet fexofenadine 180 mg tablet TAKE 1 TABLET BY MOUTH EVERY DAY gabapentin (NEURONTIN) 300 mg capsule Take 600 mg by mouth twice daily. MV with Vdo-Ijovcifp-Fclkmy (CENTRUM SILVER) 0.4 mg-300 mcg- 250 mcg tab Take by mouth. insulin 75/25 lispro protamine/lispro units/mL (HUMALOG MIX 75-25,U-100,INSULN) 100 units/mL susp as directed. HYDROcodone-acetaminophen (NORCO) 5-325 mg per tablet hydrocodone 5 mg-acetaminophen 325 mg tablet TAKE 1 TO 2 TABLETS BY MOUTH EVERY DAY AT BEDTIME NEEDED zrycbojg-gdd-yfwg-FA-lutein (CENTRUM SILVER WOMEN) 8 mg iron-400 mcg-300 mcg tab furosemide (LASIX) 40 mg tablet furosemide 40 mg tablet TAKE 1 AND 1/2 TABLETS BY MOUTH DAILY clopidogrel (PLAVIX) 75 mg tablet clopidogrel 75 mg tablet TAKE 1 TABLET BY MOUTH EVERY DAY metoprolol succinate ER (TOPROL XL) 25 mg 24 hr tablet metoprolol succinate ER 25 mg tablet,extended release 24 hr TAKE 1 TABLET BY MOUTH DAILY (ALONG WITH THE 50MG TABLET FOR 75 MG TOTAL DAILY) metoprolol succinate ER (TOPROL XL) 50 mg 24 hr tablet metoprolol succinate ER 50 mg tablet,extended release 24 hr TAKE 1 TABLET BY MOUTH EVERY DAY rivaroxaban (XARELTO) 10 mg tablet Xarelto 10 mg tablet metFORMIN (GLUCOPHAGE) 1,000 mg tablet Take 1,000 mg by mouth twice daily. cholecalciferol (VITAMIN D3) 5,000 unit tab Vitamin D3 Refills(s) 0 Start Date: 07/27/21 Status: Ordered HYDROcodone-Acetaminophen 5-300 mg tab Take 1 tablet by mouth every 8 hours as needed for pain. methocarbamol (ROBAXIN) 500 mg tablet Take 500 mg by mouth four times daily. esomeprazole mag/glycerin (ESOMEP-EZS ORAL) Take by mouth. No current facility-administered medications for this visit. ALLERGIES: ALLERGIES No Known Allergies PHYSICAL EXAMINATION: Resp 20 Ht 5' 4 (1.63m) Wt 260 lb (117.9kg) BMI 44.61 kg/(m2). General Appearance: Well appearing, alert, in no acute distress, well-hydrated, well nourished. and Obese Skin: Skin color, texture, turgor normal, no suspicious rashes or lesions. Psych: Patient is alert and oriented to person, time and place. Mood and affect are normal. Respiratory: Breathing is symmetric and unlabored Gait: The patient was examined in a wheelchair today. Extremities: Left lower extremity is examined. Skin is intact without erythema or surgical scar. There is mild swelling and tenderness at the ankle. There is also tenderness near the knee. There is no palpable mass. Gentle range of motion of the ankle is mildly painful for the patient. Lymphatic: There is no palpable lymphadenopathy Peripheral Pulses: Normal. Neurologic: Bilateral lower extremities were examined. There is 5/5 strength with hip flexion, knee extension, dorsiflexion, EHL, plantar flexion. Sensation intact in all nerve dermatomes IMAGES: Physician office building radiographs, 10/12/2021. AP, lateral and mortise views of the left ankle were obtained and reviewed. These demonstrate nondisplaced medial malleolus fracture. Overall alignment is stable. The talus is well centered near the plafond. There is no destructive lesion appreciable. Soft tissues otherwise unremarkable. Overall stable appearing follow-up radiographs. Plan ASSESSMENT AND PLAN: 1. Closed fracture of left ankle, initial encounter - ICD9: 824.8, ICD10: S82.892A Functional Plan: Patient is a 55-year-old female present follow-up evaluation of left ankle fracture sustaine (more content not included)... Normal [facility] CNOVon 09-21-2021 CNOV Office Visit (AGPOB1 ) ELMER ELLIS ([id number]) 1965 F Date Time Provider Department 09/21/21 3:00 PM LILLY TONY During your visit today, we recorded the following information about you: Respiration Weight Height 22/minute 118.1 kg 1.626 m Lilly Tony MD 09/22/2021 11:59 AM Signed ORTHOPAEDIC OFFICE NOTE CHIEF COMPLAINT: Left ankle pain HISTORY OF PRESENT ILLNESS: Elmer M Rheacaio is a 55 year old female who presents for Evaluation of left ankle pain. Patient states that she fell 1 week ago from standing. She was unable to ambulate and presented to the emergency room. She was found to have a left ankle fracture and placed in a splint. Since that time she is had consistent pain that rates around 5/10 in intensity. She has been using a wheelchair to assist with ambulation and has been compliant with nonweightbearing status. She will occasionally take Van Dyne for pain relief which is effective. She is also supplemented with qypb-cxj-iqofjmi pain medications. Her medical history significant for Beatties, coronary artery disease, diabetes and associated lower extremity neuropathy, DVT requiring Plavix and Xarelto for anticoagulation. She does think she has a clotting disorder but does not seem a iso coordinator. She also has kidney cancer that is being monitored. She endorses smoking 1 pack of cigarettes per day. She also uses marijuana which is helpful with pain control. She is on disability for chronic back and knee pain. She denies current fevers chills nausea vomiting weight loss fatigue or malaise. Reviewed nursing note and current pain scale. History reviewed. No pertinent past medical history. History reviewed. No pertinent surgical history. History reviewed. No pertinent family history. Social History Tobacco Use - Smoking status: Current Every Day Smoker Types: Cigarettes - Smokeless tobacco: Never Used Substance Use Topics - Alcohol use: Not Currently - Drug use: Yes Types: Marijuana MEDICATIONS: Current Outpatient Medications Medication Sig - DULoxetine (CYMBALTA) 60 mg capsule duloxetine 60 mg capsule,delayed release TAKE 1 CAPSULE BY MOUTH EVERY DAY - atorvastatin (LIPITOR) 80 mg tablet Take 80 mg by mouth once daily. - fexofenadine (LUZ) 180 mg tablet fexofenadine 180 mg tablet TAKE 1 TABLET BY MOUTH EVERY DAY - gabapentin (NEURONTIN) 300 mg capsule Take 600 mg by mouth twice daily. - MV with Lxf-Rablptnh-Bvftcn (CENTRUM SILVER) 0.4 mg-300 mcg- 250 mcg tab Take by mouth. - insulin 75/25 lispro protamine/lispro units/mL (HUMALOG MIX 75-25,U-100,INSULN) 100 units/mL susp as directed. - HYDROcodone-acetaminophen (NORCO) 5-325 mg per tablet hydrocodone 5 mg-acetaminophen 325 mg tablet TAKE 1 TO 2 TABLETS BY MOUTH EVERY DAY AT BEDTIME NEEDED - jwevmblh-cye-gpaw-FA-lutein (CENTRUM SILVER WOMEN) 8 mg iron-400 mcg-300 mcg tab - furosemide (LASIX) 40 mg tablet furosemide 40 mg tablet TAKE 1 AND 1/2 TABLETS BY MOUTH DAILY - clopidogrel (PLAVIX) 75 mg tablet clopidogrel 75 mg tablet TAKE 1 TABLET BY MOUTH EVERY DAY - metoprolol succinate ER (TOPROL XL) 25 mg 24 hr tablet metoprolol succinate ER 25 mg tablet,extended release 24 hr TAKE 1 TABLET BY MOUTH DAILY (ALONG WITH THE 50MG TABLET FOR 75 MG TOTAL DAILY) - metoprolol succinate ER (TOPROL XL) 50 mg 24 hr tablet metoprolol succinate ER 50 mg tablet,extended release 24 hr TAKE 1 TABLET BY MOUTH EVERY DAY - rivaroxaban (XARELTO) 10 mg tablet Xarelto 10 mg tablet - metFORMIN (GLUCOPHAGE) 1,000 mg tablet Take 1,000 mg by mouth twice daily. - cholecalciferol (VITAMIN D-3) 5,000 unit tab Vitamin D3 Refills(s) 0 Start Date: 07/27/21 Status: Ordered - HYDROcodone-Acetaminophen 5-300 mg tab Take 1 tablet by mouth every 8 hours as needed for pain. - methocarbamol (ROBAXIN) 500 mg tablet Take 500 mg by mouth four times daily. - esomeprazole mag/glycerin (ESOMEP-EZS ORAL) Take by mouth. - HYDROcodone-acetaminophen (NORCO) 5-325 mg per tablet Take 1 tablet by mouth every 8 hours as needed for pain for up to 7 days. No current facility-administered medications for this visit. ALLERGIES: ALLERGIES No Known Allergies PHYSICAL EXAMINATION: Resp 22 Ht 5' 4 (1.63m) Wt 260 lb 6.4 oz (118.1kg) BMI 44.68 kg/(m2). General Appearance: Well appearing, alert, in no acute distress, well-hydrated, well nourished. and Obese Skin: Skin color, texture, turgor normal, no suspicious rashes or lesions. Psych: Patient is alert and oriented to person, time and place. Mood and affect are normal. Respiratory: Breathing is symmetric and unlabored Gait: The patient was examined in a wheelchair today. Extremities: Left lower extremity is examined. Skin is intact without erythema or surgical scar. There is moderate swelling present at the ankle. There is associated tenderness palpation along the lateral med (more content not included)... Normal [facility]valdo 09-16-[address] [facility] Telephone (AGPOB1) ELMER ELLIS ([id number]) 1965 F Date Time Provider Department 09/16/21 AIDEN LEDEZMA During your visit today, we recorded the following information about you: Jared Alcantar [place] [facility] 09/16/2021 9:05 AM Signed ----- Message from Peggy Saxena sent at 09/15/2021 4:27 PM EDT ----- Regarding: Orthopedics / Open Ankle: Fracture Broken / Recent ED Visit Contact: Patient has been identified by name and Date of (Y/N): y Patient: Elmer Ellis Date of : 1965 Previous Provider Seen: n/a Body Part(s) Identified: Left Ankle Diagnosis/Reason For Visit: Left Ankle /knee / Fell Pain Reason for the call/escalation: Medial malleolar fracture Closed fracture of proximal end of left fibula, unspecified fracture morphology, initial encounter If reason for call/escalation is discharge from ED/ER or Hospital, which facility was the patient seen at: [facility] / 09.12.2021 Was an appointment scheduled (Y/N): n Person calling if other than patient: n Return call to if other than patient: n Best contact number: [phone] Thank you, Peggy Saxena September 15, 2021 4:27 PM Filomena Madrigal 09/16/2021 10:18 AM Signed Called and spoke to patient regarding L ankle fracture OS 09/12/21. Patient was seen at [facility] ED after falling she fell in the shower. Patient injurred L knee and L ankle, only ankle if broken. Patient was splinted and is now using a wheelchair. Scheduled with Dr. Tony 09/21/21 3:00pm POB. Patient agreeable to appointment date, time and location. Filomena Madrigal September 16, 2021 10:18 AM Allergies As of Date: 09/16/2021 (No Known Allergies) Date Reviewed: 09/12/2021 Reviewed by: Joi Mariscal RN - Fully Assessed Reason for Visit: ER F/U [41] Problem List As Of Date: 09/16/2021 (None) Encounter Status:Closed by ERIKA PERSONAL INJURY SPECIALIST JARED GARCIA on 09/16/21 [facility] 09-12-2021 [facility] HNO ID: [id number] Author: RT Herman(R) Service: Radiology Author Type: Technologist Type: Allied Health Filed: 09/12/2021 2:39 PM Note Text: Radiology Service Progress Note PATIENT NAME: Elmer Ellis DATE OF SERVICE: September 12, 2021 TIME: 2:38 PM PATIENT IDENTITY VERIFICATION COMPLETED USING TWO (2) IDENTIFIERS: Name and Date of confirmed by patient verbally and Name and Date of confirmed by identification band. FALL SCREENING: Has the patient had 2 falls in the last year or 1 fall with injury or currently using an Ambulatory Assistive Device (Walker, Cane, Wheelchair, Crutches, etc.)? Emergency Room Patient: Screened in ED PATIENT GENDER DATA: Female. status: : No status: NO. PATIENT RELEVANT IMPLANT DATA REVIEWED: Not Applicable RADIOLOGY DEPARTMENT: General X-ray: Exam(s) Completed: Lower Extremity X-Ray(s): Ankle, Left STRESS VIEW PERIPHERAL IV DATA: Not applicable SIGNED BY: RT Herman(R) September 12, 2021 2:38 PM [facility] HNO ID: [id number] Author: RT Alexandra(R) Service: Radiology Author Type: Technologist Type: Allied Health Filed: 09/12/2021 12:21 PM Note Text: Radiology Service Progress Note PATIENT NAME: Elmer Ellis DATE OF SERVICE: September 12, 2021 TIME: 12:21 PM PATIENT IDENTITY VERIFICATION COMPLETED USING TWO (2) IDENTIFIERS: Name and Date of confirmed by patient verbally and Name and Date of confirmed by identification band. FALL SCREENING: Has the patient had 2 falls in the last year or 1 fall with injury or currently using an Ambulatory Assistive Device (Walker, Cane, Wheelchair, Crutches, etc.)? Emergency Room Patient: Screened in ED PATIENT GENDER DATA: Female. status: : No status: NO. PATIENT RELEVANT IMPLANT DATA REVIEWED: Not Applicable RADIOLOGY DEPARTMENT: General X-ray: Exam(s) Completed: Lower Extremity X-Ray(s): Knee, AP / LAT Left, Ankle, Left and Foot, Left PERIPHERAL IV DATA: Not applicable SIGNED BY: RT Alexandra(R) September 12, 2021 12:21 PM Normal [facility] CONSULTon 09-12-2021 CONSULT HNO ID: [id number] Author: Stoney Bauer MD Service: Orthopaedic Surgery Author Type: Resident Type: Consults Filed: 09/12/2021 11:43 PM Note Text: Attestation signed by Lilly Tony MD at 09/13/2021 6:54 PM Lilly Tony M.D. Attending Staff, Department of Orthopedic Surgery [facility] Orthopaedic Surgery Consultation Note Reason for Consultation: Left Maisonneuve injury Consulted Physician: Lilly Tony MD Date: September 12, 2021 Time: 2:43 PM History of Present Illness 55 year old female being evaluated today regarding left Maisonneuve injury. Patient was in her hotel room when she fell twisting her left ankle. She had immediate pain to her left ankle. She was able to get herself off the ground and drive herself to the hospital for evaluation. She endorse pain to the left ankle and left proximal fibula. She denies any numbness or tingling to her left foot. Denies any N/V/F/C. In the ED, imaging revealed a left proximal fibula fracture with medial clear space widening with gravity stress views. Ortho was consulted for evaluation. Review of Systems 10-point ROS negative except as in HPI. History No past medical history on file. No past surgical history on file. There are no preventive care reminders to display for this patient. A review of the patient's history was completed and is otherwise non-contributory to the patient's presenting condition. Medications No prescriptions on file. Allergies Patient has no known allergies. Family History No family history on file. Social History Employer And Job Title: None on file Years Of Education Completed: Not specified Marital Status: Social History Tobacco Use - Smoking status: Not on file - Smokeless tobacco: Not on file Substance Use Topics - Alcohol use: Not on file - Drug use: Not on file Physical Examination Vitals BP (!) 108/49 Pulse 87 Temp 36.6 ?C (97.9 ?F) (Oral) Resp 16 Ht 162.6 cm (5' 4 ) Wt 114.8 kg (253 lb) SpO2 96% BMI 43.43 kg/m? General AANDO. NAD. Cooperative throughout entire interview. Appropriate mood and affect. Left Lower Extremity Alignment normal. No gross deformities. Swelling about left ankle No ecchymosis or erythema. No open wounds or lacerations. TTP to proximal fibula and medial ankle. Mild TTP to lateral ankle SILT Pepper/Sa/DP/SP/T. Motor intact EHL/DF/PF. DP/PT pulses palpable; BCR all digits. Compartments soft and compressible Physical examination otherwise non-contributory to consultation. Labs No results for input(s): NA, K, CHLOR, CO2, BUN, CREAT, GLUC, ANION, CA, MG, P, ALB, AST, ALT, ALKPHOS, TBILI, DBILI, PHOSINTL, WBC, HB, HCT, PLT, LACT, INR, PH, PCO2, PO2, BE, HCO3 in the last 72 hours. Invalid input(s): LISDBC Imaging XR of left tib/fib, ankle, foot: demonstrates a short oblique proximal fibula fracture with medial clear space widening >5mm indicating an unstable Maisonneuve injury; nondisplaced fracture of the distal medial malleolus tip Assessment Elmer M Yeckley is a 55 year old female left Maisonneuve injury Plan 1. Management per ED 2. Pain control. 3. Weight-bearing status: NWB LLE 4. Dressing(s): splint to LLE - keep clean, dry, intact 5. Antibiotic(s): None 6. Imaging: stress view left ankle - completed 7. No plan for orthopedic surgery intervention at this time. Patient [place] 1[place]5 hours [place]. She asked if she can follow up with her orthopedic surgeon back home. She was told that is fine, however if she wants to follow with Dr. Tony, his contact information will be in her discharge work. 8. Follow up within 1 week 9. Discussed with Dr. Toyn who agrees with the above recommendations. Stoney Bauer MD September 12, 2021 11:43 PM [facility] ED NOTEon 09-12-2021 ED NOTE HNO ID: [id number] Author: Joi Mariscal RN Service: Emergency Medicine Author Type: Registered Nurse Type: ED Notes Filed: 09/12/2021 11:13 AM Note Text: X-ray notified pt ready for imaging. [facility] ED PROV NOTEon 09-12-2021 ED PROV NOTE HNO ID: [id number] Author: Alexander Velázquez APRN.CNP Service: Emergency Medicine Author Type: Nurse Practitioner Type: ED Provider Notes Filed: 09/13/2021 10:13 AM Note Text: ED Provider Note Patient Name: Elmer Ellis : 1965 SERVICE DATE: 09/12/21 History Patient presents with: Fall: Pt comes in through triage stating that she slipped and fell this am in the shower and is now having L ankle and L knee pain, pt denies hitting her head, -LOC, pt is on plavix and xarelto. Pt states she has had previous L knee surgery. Pt is able to bear some weight but states it is very painful. HPI 55-year-old comes in with complaints of left knee and left ankle and foot pain discomfort. States that she has had previous left knee surgery ended up slipping in the shower developing increased pain discomfort. It is painful bearing weight she is having some difficulty with ambulation. She has no other associated symptoms or concerns at this time. No past medical history on file. No past surgical history on file. No family history on file. Social History Tobacco Use - Smoking status: Not on file - Smokeless tobacco: Not on file Substance and Sexual Activity - Alcohol use: Not on file - Drug use: Not on file - Sexual activity: Not on file ALLERGIES No Known Allergies Review of Systems Constitutional: Negative for chills, fatigue and fever. HENT: Negative. Respiratory: Negative for cough, shortness of breath and wheezing. Cardiovascular: Negative for chest pain, palpitations and leg swelling. Gastrointestinal: Negative for abdominal pain, diarrhea, nausea and vomiting. Genitourinary: Negative. Musculoskeletal: Negative for back pain. Left ankle knee and foot pain Neurological: Negative. Hematological: Negative. Psychiatric/Behavioral: Negative. Physical Exam Vitals [09/12/21 1108] BP Pulse Temp Temp src Resp SpO2 Weight Height (!) 108/49 87 36.6 ?C (97.9 ?F) Oral 16 96 % 114.8 kg (253 lb) 1.626 m (5' 4 ) Physical Exam Vitals and nursing note reviewed. Constitutional: General: She is not in acute distress. Appearance: She is obese. She is not ill-appearing or toxic-appearing. HENT: Head: Normocephalic and atraumatic. Nose: Nose normal. Mouth/Throat: Mouth: Mucous membranes are moist. Eyes: Pupils: Pupils are equal, round, and reactive to light. Cardiovascular: Rate and Rhythm: Normal rate and regular rhythm. Pulses: Normal pulses. Heart sounds: Normal heart sounds. Pulmonary: Effort: Pulmonary effort is normal. Breath sounds: Normal breath sounds. Abdominal: General: Abdomen is flat. Musculoskeletal: General: Swelling and tenderness present. No deformity. Normal range of motion. Cervical back: Normal range of motion. Comments: Tenderness to foot along with medial mal and proximal fibula no crepitus no deformity Neurological: Mental Status: She is alert. Diagnostic Testing ED Labs Ordered and Reviewed - No data to display Procedures ED Course / Clinical Impression Clinical Impressions as of 09/13/21 1013 Medial malleolar fracture Closed fracture of proximal end of left fibula, unspecified fracture morphology, initial encounter MDM / Disposition / Plan MDM 55-year-old comes in with complaints of of left knee ankle and foot pain. She ended up having a fall slipped in the shower denies any her head denies any loss of consciousness. She is having increased pain discomfort on ambulation and weightbearing. She denies any other associated symptoms or concerns at this time. Physical examination of the patient does reveal tenderness to the medial malleolus with no crepitus no deformity. She also does have proximal fibula tenderness to the lateral aspect of her knee no instability no crepitus no deformity. She does have increased swelling noted to her knee and ankle. She also has tenderness to the medial aspect of her metatarsal first second on left foot no deformities are noted. X-rays were completed here in the emergency department. X-rays do reveal a proximal fibular fracture medial malleoli are fracture and proximal phalanx head fracture of the left foot. Given this patient will be splinted per protocol will need to follow-up with orthopedics. Orthopedics at bedside evaluating patient. More imaging completed they completed splinting at bedside. Patient plan will be for ambulation protocol for safety with walker since pt does not feel compfortable with crutches. If she passes will be discharged home on short term pain medication and follow up with her physical education specialist that she already has seen previous. Patient in no acute distress vitals are stable. RETURN PRECAUTIONS Patient discharged from the Emergency Department. I do not feel that the patient's evaluation reveals any acute reason for admission at this time. I instructed them to either follow up with their primary care physicia (more content not included)... [facility] XR ANKLE 1V LTon 09-12-2021 XR ANKLE 1V LT * * *Final Report* * * DATE OF EXAM: Sep 12 2021 2:38PM [id number] - XR ANKLE 1V LT / PROCEDURE REASON: Fracture, ankle * * * * Physician Interpretation * * * * EXAM TITLE: XR ANKLE 1V LT DATE: 09/12/2021 2:45 PM INDICATION: Follow-up for fracture COMPARISON: Earlier today FINDINGS: Portable stress AP view of the left ankle is obtained. Again, there is a nondisplaced fracture at the medial malleolus which appears relatively stable. Fracture fragment and joint alignment is otherwise stable. IMPRESSION: See above. Chain Carrier: LILLY Transcribe Date/Time: Sep 12 2021 2:45P Dictated by : KEN MCKEON MD This examination was interpreted and the report reviewed and electronically signed by: KEN MCKEON MD on Sep 12 2021 2:46PM EST [id number] [facility] XR ANKLE 3V AP/LAT/OBL LTon 09-12-2021 XR ANKLE 3V AP/LAT/OBL LT * * *Final Report* * * DATE OF EXAM: Sep 12 2021 12:22PM [id number] - XR ANKLE 3V AP/LAT/OBL LT / PROCEDURE REASON: Ankle pain, no prior imaging * * * * Physician Interpretation * * * * EXAMINATION: XR FOOT 3V AP/LAT/OBL LT, XR KNEE 2V AP/LAT LT, XR ANKLE 3V AP/LAT/OBL LT CLINICAL HISTORY: Pain, trauma Technique: XR FOOT 3V AP/LAT/OBL LT, XR KNEE 2V AP/LAT LT, XR ANKLE 3V AP/LAT/OBL LT --3 views of the left foot, 2 views of the left knee and 3 views of the left ankle Comparison: None RESULT: Left foot: There is an acute fracture minimally displaced fracture in the lateral aspect of the first proximal phalangeal head. There is possible intra-articular extension. No dislocation. Calcaneal spur. Left knee: There is a mildly displaced vertical fracture in the left proximal fibular. Moderate knee joint effusion. No dislocation. Mild degenerative changes. Left ankle: There is a nondisplaced medial malleolus fracture. Ankle mortise is maintained. Overlying soft tissue swelling. IMPRESSION: Left medial malleolus fracture. Left proximal fibular fracture. Left foot first proximal phalangeal head fracture. Chain Carrier: PSCB Transcribe Date/Time: Sep 12 2021 12:54P Dictated by : MOE SINGH MD This examination was interpreted and the report reviewed and electronically signed by: MOE SINGH MD on Sep 12 2021 1:00PM EST [id number] [facility] XR FOOT 3V AP/LAT/OBL LTon 0 09-12-2021 XR FOOT 3V AP/LAT/OBL LT * * *Final Report* * * DATE OF EXAM: Sep 12 2021 12:22PM [id number] - XR FOOT 3V AP/LAT/OBL LT / PROCEDURE REASON: Foot trauma, no prior imaging (Age >= 6y) * * * * Physician Interpretation * * * * EXAMINATION: XR FOOT 3V AP/LAT/OBL LT, XR KNEE 2V AP/LAT LT, XR ANKLE 3V AP/LAT/OBL LT CLINICAL HISTORY: Pain, trauma Technique: XR FOOT 3V AP/LAT/OBL LT, XR KNEE 2V AP/LAT LT, XR ANKLE 3V AP/LAT/OBL LT --3 views of the left foot, 2 views of the left knee and 3 views of the left ankle Comparison: None RESULT: Left foot: There is an acute fracture minimally displaced fracture in the lateral aspect of the first proximal phalangeal head. There is possible intra-articular extension. No dislocation. Calcaneal spur. Left knee: There is a mildly displaced vertical fracture in the left proximal fibular. Moderate knee joint effusion. No dislocation. Mild degenerative changes. Left ankle: There is a nondisplaced medial malleolus fracture. Ankle mortise is maintained. Overlying soft tissue swelling. IMPRESSION: Left medial malleolus fracture. Left proximal fibular fracture. Left foot first proximal phalangeal head fracture. Chain Carrier: LILLY Transcribe Date/Time: Sep 12 2021 12:54P Dictated by : MOE SINGH MD This examination was interpreted and the report reviewed and electronically signed by: MOE SINGH MD on Sep 12 2021 1:00PM EST [id number] [facility] XR KNEE 2V AP/LAT LTon 09-12 XR KNEE 2V AP/LAT LT * * *Final Report* * * DATE OF EXAM: Sep 12 2021 12:22PM [id number] - XR KNEE 2V AP/LAT LT / PROCEDURE REASON: Joint pain, knee * * * * Physician Interpretation * * * * EXAMINATION: XR FOOT 3V AP/LAT/OBL LT, XR KNEE 2V AP/LAT LT, XR ANKLE 3V AP/LAT/OBL LT CLINICAL HISTORY: Pain, trauma Technique: XR FOOT 3V AP/LAT/OBL LT, XR KNEE 2V AP/LAT LT, XR ANKLE 3V AP/LAT/OBL LT --3 views of the left foot, 2 views of the left knee and 3 views of the left ankle Comparison: None RESULT: Left foot: There is an acute fracture minimally displaced fracture in the lateral aspect of the first proximal phalangeal head. There is possible intra-articular extension. No dislocation. Calcaneal spur. Left knee: There is a mildly displaced vertical fracture in the left proximal fibular. Moderate knee joint effusion. No dislocation. Mild degenerative changes. Left ankle: There is a nondisplaced medial malleolus fracture. Ankle mortise is maintained. Overlying soft tissue swelling. IMPRESSION: Left medial malleolus fracture. Left proximal fibular fracture. Left foot first proximal phalangeal head fracture. Chain [facility] Transcribe Date/Time: Sep 12 2021 12:54P Dictated by : MOE SINGH MD This examination was interpreted and the report reviewed and electronically signed by: MOE SINGH MD on Sep 12 2021 1:00PM EST [id number] [facility] XR TIBIA FIBULA 2V AP/LAT LT on 09-12-2021 XR TIBIA FIBULA 2V AP/LAT LT * * *Final Report* * * DATE OF EXAM: Sep 12 2021 3:22PM [id number] - XR TIBIA FIBULA 2V AP/LAT LT / PROCEDURE REASON: Fracture, tib/fib * * * * Physician Interpretation * * * * EXAMINATION: XR TIBIA FIBULA 2V AP/LAT LT HISTORY: L ANKLE FX Fracture, tib/fib. TECHNIQUE: XR TIBIA FIBULA 2V AP/LAT LT Laterality: LEFT Number of different views (projections): 2 M: XB_1 COMPARISON: X-ray examination of the left ankle in the performed earlier today. RESULT: Examination limited, due to overlying plaster. Again demonstrated is acute minimally displaced oblique fracture involving the proximal fibula. Previously demonstrated nondisplaced medial malleolus fracture not well-visualized, likely due to technique. Again noted is diffuse a fight at Achilles tendon insertion site and prominent plantar spur. Degenerative changes involving the medial lateral tibiofemoral joint again noted. No other significant abnormality. IMPRESSION: Examination limited, due to overlying plaster. No significant interval change regarding proximal fibular fracture. No dislocation. Chain Carrier: [facility] Transcribe Date/Time: Sep 12 2021 3:23P Dictated by : NIMCO GREEN MD This examination was interpreted and the report reviewed and electronically signed by: NIMCO GREEN MD on Sep 12 2021 3:27PM EST [id number] [facility] Formson 07-29-2021 Forms [id number]:127 [facility] Physician Referralon 022 Physician Referral [id number]:127 [facility] RAD - CT Reporton 07-29-2021 RAD - CT Report [id number]:127 [facility] Ambulatory Visit Summaryon 0 07-27-2021 Ambulatory Visit Summary ELMER ELLIS Asif :1965 Visit Date:07/27/2021 Ambulatory Visit Instructions Your Diagnosis Right renal mass Nocturia Incomplete emptying of bladder Your Care Team Attending Physician - Jluis ROBLEDO MD Primary Care Physician - Dawit Ba DO Referring Physician - Dawit Ba DO This Is Your Medications List Contact prescribing physician if questions or concerns aspirin (aspirin 81 mg Oral EC Tab) atorvastatin (atorvastatin 80 mg Tab) cholecalciferol (Vitamin D3) clopidogrel (Plavix 75 mg Tab) duloxetine (duloxetine 60 mg Cap-DR) fexofenadine (Luz) furosemide (furosemide 40 mg Tab) gabapentin (gabapentin 300 mg Cap) insulin lispro-insulin lispro protamine (Humalog 75/25 Injection-Insulin) methocarbamol (Robaxin 500 mg Tab) metoprolol (metoprolol 25 mg ER Tab) metoprolol (metoprolol 50 mg ER Tab) multivitamin with minerals (Centrum Silver) rivaroxaban (Xarelto 10 mg oral tablet) Procedures Performed Abdominal hysterectomy, Appendectomy, Bilateral tubal ligation, Cholecystectomy. Discharge Vitals Heart Rate (Peripheral) 89 Blood Pressure 120/73 Height 163 cm Height 163.0 cm Weight 116.6 kg Weight 116.6 kg BMI 43.89 What to do next You Need to Schedule the Following Appointments Follow Up with VENKAT SAWYER, Jluis Jacinto, URL When: In 6 months 01/26/2022 EST Comments: [address] scan Where: [facility] [address] [place] [address] [id number] Medications What How Much When Instructions Unchanged aspirin (aspirin 81 mg Oral EC Tab) By Mouth Every day Contact prescribing physician if questions or concerns Unchanged atorvastatin (atorvastatin 80 mg Tab) 1 Tablets By Mouth Every day Contact prescribing physician if questions or concerns Unchanged cholecalciferol (Vitamin D3) Contact prescribing physician if questions or concerns Unchanged clopidogrel (Plavix 75 mg Tab) By Mouth Every day Contact prescribing physician if questions or concerns Unchanged duloxetine (duloxetine 60 mg Cap-DR) By Mouth Every day Contact prescribing physician if questions or concerns Unchanged fexofenadine (Luz) By Mouth Contact prescribing physician if questions or concerns Unchanged furosemide (furosemide 40 mg Tab) By Mouth Every day Contact prescribing physician if questions or concerns Unchanged gabapentin (gabapentin 300 mg Cap) 1 Capsules By Mouth 2 times a day Contact prescribing physician if questions or concerns Unchanged insulin lispro-insulin lispro protamine (Humalog 75/ 25 Injection-Insulin) Subcutaneous Twice a day (before meals) Contact prescribing physician if questions or concerns Unchanged methocarbamol (Robaxin 500 mg Tab) By Mouth 4 times a day Contact prescribing physician if questions or concerns Unchanged metoprolol (metoprolol 25 mg ER Tab) By Mouth Every day Contact prescribing physician if questions or concerns Unchanged metoprolol (metoprolol 50 mg ER Tab) By Mouth Every day Contact prescribing physician if questions or concerns Unchanged multivitamin with minerals (Centrum Silver) By Mouth Every day Contact prescribing physician if questions or concerns Unchanged rivaroxaban (Xarelto 10 mg oral tablet) By Mouth Every day Contact prescribing physician if questions or concerns Allergies No Known Allergies Problems Ongoing - Any problem that you are currently receiving treatment for. Arthritis Depression Diabetes Gallstone Smoker Education Materials Calorie Counting for Weight Loss Calories are units of energy. Your body needs a certain amount of calories from food to keep you going throughout the day. When you eat more calories than your body needs, your body stores the extra calories as fat. When you eat fewer calories than your body needs, your body bradley fat to get the energy it needs. Calorie counting means keeping track of how many calories you eat and drink each day. Calorie counting can be helpful if you need to lose weight. If you make sure to eat fewer calories than your body needs, you should lose weight. Ask your health care provider what a healthy weight is for you. For calorie counting to work, you will need to eat the right number of calories in a day in order to lose a healthy amount of weight per week. A dietitian can help you determine how many calories you need in a day and will give you suggestions on how to reach your calorie goal. ? A healthy amount of weight to lose per week is usually 1?2 lb (0.5?0.9 kg). This usually means that your daily calorie intake should be reduced by 500?750 calories. ? Eating 1,200 ? 1,500 calories per day can help most women lose weight. ? Eating 1,500 ? 1,800 calories per day can help most men lose weight. What is my plan? My goal is to have calories per day. If I have this many calories per day, I should lose around pounds per week. What do I need to know about calorie (more content not included)... [facility] Patient Educationon 07-28-19 Patient Education Nutrition Calorie Counting for Weight Loss Calories are units of energy. Your body needs a certain amount of calories from food to keep you going throughout the day. When you eat more calories than your body needs, your body stores the extra calories as fat. When you eat fewer calories than your body needs, your body bradley fat to get the energy it needs. Calorie counting means keeping track of how many calories you eat and drink each day. Calorie counting can be helpful if you need to lose weight. If you make sure to eat fewer calories than your body needs, you should lose weight. Ask your health care provider what a healthy weight is for you. For calorie counting to work, you will need to eat the right number of calories in a day in order to lose a healthy amount of weight per week. A dietitian can help you determine how many calories you need in a day and will give you suggestions on how to reach your calorie goal. ? A healthy amount of weight to lose per week is usually 1?2 lb (0.5?0.9 kg). This usually means that your daily calorie intake should be reduced by 500?750 calories. ? Eating 1,200 ? 1,500 calories per day can help most women lose weight. ? Eating 1,500 ? 1,800 calories per day can help most men lose weight. What is my plan? My goal is to have calories per day. If I have this many calories per day, I should lose around pounds per week. What do I need to know about calorie counting? In order to meet your daily calorie goal, you will need to: ? Find out how many calories are in each food you would like to eat. Try to do this before you eat. ? Decide how much of the food you plan to eat. ? Write down what you ate and how many calories it had. Doing this is called keeping a food log. To successfully lose weight, it is important to balance calorie counting with a healthy lifestyle that includes regular activity. Aim for 150 minutes of moderate exercise (such as walking) or 75 minutes of vigorous exercise (such as running) each week. Where do I find calorie information? The number of calories in a food can be found on a Nutrition Facts label. If a food does not have a Nutrition Facts label, try to look up the calories online or ask your dietitian for help. Remember that calories are listed per serving. If you choose to have more than one serving of a food, you will have to multiply the calories per serving by the amount of servings you plan to eat. For example, the label on a package of bread might say that a serving size is 1 slice and that there are 90 calories in a serving. If you eat 1 slice, you will have eaten 90 calories. If you eat 2 slices, you will have eaten 180 calories. How do I keep a food log? Immediately after each meal, record the following information in your food log: ? What you ate. Don't forget to include toppings, sauces, and other extras on the food. ? How much you ate. This can be measured in cups, ounces, or number of items. ? How many calories each food and drink had. ? The total number of calories in the meal. Keep your food log near you, such as in a small notebook in your pocket, or use a mobile jersey or website. Some programs will calculate calories for you and show you how many calories you have left for the day to meet your goal. What are some calorie counting tips? ? Use your calories on foods and drinks that will fill you up and not leave you hungry: ? Some examples of foods that fill you up are nuts and nut butters, vegetables, lean proteins, and high-fiber foods like whole grains. High-fiber foods are foods with more than 5 g fiber per serving. ? Drinks such as sodas, specialty coffee drinks, alcohol, and juices have a lot of calories, yet do not fill you up. ? Eat nutritious foods and avoid empty calories. Empty calories are calories you get from foods or beverages that do not have many vitamins or protein, such as candy, sweets, and soda. It is better to have a nutritious high-calorie food (such as an avocado) than a food with few nutrients (such as a bag of chips). ? Know how many calories are in the foods you eat most often. This will help you calculate calorie counts faster. ? Pay attention to calories in drinks. Low-calorie drinks include water and unsweetened drinks. ? Pay attention to nutrition labels for low fat or fat free foods. These foods sometimes have the same amount of calories or more calories than the full fat versions. They also often have added sugar, starch, or salt, to make up for flavor that was removed with the fat. ? Find a way of tracking calories that works for you. Get creative. Try different apps or programs if writing down calories does not work for you. What are some portion control tips? ? Know how many calories are in a serving. This will help you know how many servings of a certain food you can have. ? Use a measuring cup to measure serving sizes. You could (more content not included)... [facility] Urology Office/Clinic Noteon 07-27-2021 Urology Office/Clinic Note Chief Complaint new pt referred for renal mass HPI Staff Elmer is a 55yr old new pt referred for Renal mass. Pt had CT of ABD/pel done at [facility] on 06/15/21. pt says she feels like she has to push on her stomach when urinating for all of it to come out along with a hesitant stream. pt says she has no personal or family Hx of kidney stones. pt was unable to give urine sample. Dysuria: _denies Incomplete bladder emptying: _yes Hematuria: _denies visibly Frequency: _denies Urgency: _yes, has to go right away Nocturia: _1x Stream: _hesitant Leaking: _denies Post void dripping: _denies Wearing pads/ Depends: _pads, changes prn Urge incontinence: _denies Stress incontinence: _yes when coughing Incontinence without Sensory Awareness: _denies Abdominal pain: _denies Flank pain: _denies Sexual complaints: _ History of Present Illness I have reviewed and verified the staff HPI to be accurate for this encounter. Review of Systems PHQ Score Initial Depression Screen Score: 0 ROS - Provider Constitutional: denies weight loss, denies hot flashes. Eyes: mild eye problems. Wears Glasses Gastrointestinal: denies nausea, denies vomiting. Cardiovascular: denies chest pain or angina. Integumentary: no dryness Musculoskeletal: denies musculoskeletal symptoms. ENMT: denies otolaryngeal symptoms. Respiratory: no shortness of breath. Heme/Lymph: denies easy bleeding tendency, denies easy bruising tendency. Psychiatric: no confusion, no anxiety. Genitourinary: denies vaginal discharge, denies incontinence, denies dysuria, denies hematuria, denies urinary frequency, denies amenorrhea, denies menorrhagia, denies abnormal bleeding, denies pelvic pain, denies genital sores, and denies decreased libido. Physical Exam Vitals & Measurements HR: 89(Peripheral) BP: 120/73 HT: 163 cm HT: 163.0 cm WT: 116.6 kg WT: 116.6 kg BMI: 43.89 General Appearance: alert , no acute distress, well nourished, well developed female. Head: normocephalic . Eyes: normal orbit and globe. ENMT: normal examination of external ears. Chest: Lungs CTA, respirations non labored . Cardiovascular: regular rate and rhythm. Abdomen: soft, non distended, no tenderness, no mass or organomegaly, no hernia. Genitourinary: bladder nonpalpable, no flank tenderness. Lymph Nodes: unremarkable palpation of the cervical area. Skin: warm, dry, no bruising. Psychiatric: cooperative, affect appropriate for age, normal judgement, euthymic mood. Assessment/Plan 1. Right renal mass (N28.89: Other specified disorders of kidney and ureter) Ct scan done 04/26/21 and 06/15/21 shows 2.5 x 2.8 cm mass. Patient had presented to ER due to abdomen pain and they were checking for pancreatitis, and by doing Ct scan renal mass was found incidentally. Patient had Cholecystectomy surgery in 1984 and was cut open for this surgery. Patient had 2 sisters and aunt and uncles who passed from Small cell carcinoma. Ct scan is suspicious for carcinoma since it takes up the dye on Ct scan. Discussed watchful waiting, vs surgery. If renal mass gets bigger pt will be required to have surgery to remove the mass in the future. Discussed waiting [address] scan to monitor the mass. All questions and concerns were addressed and discussed. Patient to acknowledges understanding and will call with any issues prior to next appt. 2. Nocturia (R35.1: Nocturia) mild, 1 time 3. Incomplete emptying of bladder (R33.9: Retention of urine, unspecified) She has to push on her bladder to empty out. She was advised to lean forward and press on bladder to facilitate emptying. Denies any infections. I have reviewed the previous health history and record for this patient with Dr. Robledo. f/u in [address] scan w contrast Follow-up With When Contact Information VENKAT SAWEYR, RAPHAEL Jimenez In 6 months 01/26/2022 [facility] [address], [place] [address] [phone] Additional Instructions: [address] scan Patient Education Renal Mass Calorie Counting for Weight Loss Tahmina Grant, personally scribed for Dr. Robledo on 07/27/2021 10:20:46. . Documentation recorded by the scribesisi, accurately reflects the services(s) I performed and decisions made by me. Authenticated by Dr. Robledo on 07/27/2021 10:25:58. Problem List/Past Medical History Ongoing Arthritis Depression Diabetes Gallstone Smoker Historical No qualifying data Procedure/Surgical History Abdominal hysterectomy, Appendectomy, Bilateral tubal ligation, Cholecystectomy. Medications Luz, Oral aspirin 81 mg Oral EC Tab, Oral, Daily atorvastatin 80 mg Tab, 80 mg= 1 tab(s), Oral, Daily Centrum Silver, Oral, Daily duloxetine 60 mg Cap-DR, Oral, Daily furosemide 40 mg Tab, Oral, Daily gabapentin 300 mg Cap, 300 mg= 1 cap(s), Oral, BID Humalog 75/25 Injection-Insulin, SubCutaneous, BIDAC (more content not included)... Normal [facility] Comment on above: Result Comment: Elec tronically Signed By: Jluis ROBLEDO MD\.br\Date and Time Signed: 07/27/21 10:26 EDT\.br\Electronically Co-Signed By: Tahmina Hanson\.br\Date and Time Co-Signed: 07/27/21 10:21 EDT GLUCOSE METERon 12-16-2020 Glucose [Mass/Vol] 216 mg/dL High 70-99 [facility] Comment on above: Result Comment: Fast ing GLUCOSE reference range has been updated per (ADA) [place] [employer]'s recommendation. 05/16/2018 Physician notified Performed By: #### L [id number] #### Test performed at: [place] [address] Glucose [Mass/Vol] 273 mg/dL High 70-99 [facility] Comment on above: Result Comment: Fast ing GLUCOSE reference range has been updated per (ADA) [place] [employer]'s recommendation. 05/16/2018 Physician notified Performed By: #### L [id number] #### Test performed at: [place] [id number] OPERATIVE REPORTon OPERATIVE REPORT NAME: BRIAN ELLIS MR#: [id number] SURGEON: Malik Encarnacion DO DATE OF SURGERY: 12/16/2020 OPERATIVE REPORT PREOPERATIVE DIAGNOSIS: Lumbar radiculopathy. POSTOPERATIVE DIAGNOSIS: Lumbar radiculopathy. ANESTHESIA: Local. PROCEDURE PERFORMED: Left L5-S1 transforaminal epidural steroid injection under fluoroscopic guidance. DESCRIPTION OF PROCEDURE: The patient was wheeled to the OR, placed in the prone position on the OR table; and subsequently the lumbar spine was draped in a sterile fashion. Then, under fluoroscopy, the left L5-S1 level neural foramen was well visualized in the oblique view. Under live fluoroscopy, a 5- inch needle was advanced into the left L5-S1 level neural foramen. Then, in the lateral view, the 5-inch needle was advanced with no CSF or heme ascertained, followed by administration of 2 mL of lidocaine and 40 mg of Depo- Medrol administered into the left L5-S1 neural foramen with no resistance. The 5-inch needle, under fluoroscopy, was then retracted. The patient was wheeled to the recovery room in stable condition with no complications, including no lower extremity weakness or lower extremity paresthesias. The patient was discharged home and instructed to follow up in 2 weeks. MALIK ENCARNACION, [id number]/[id number] E/S: Malik Encarnacion DO 12/24/20 1255 Electronically Signed [facility] PT NAME: ELMER ELLIS MR#: [id number] [address] [place] [address] ACCT: [id number] : 65 OPERATIVE REPORT Normal [facility] MRI LUMBAR SP W & WO CONTRAS Ton 11-12-2020 MRI LUMBAR SP W & WO CONTRAST STUDY: MRI LUMBAR SP W WO CONTRAST; 11/12/2020 11:18 am INDICATION: LUMBAR POST-LAMINECTOMY SYNDROME. COMPARISON: Lumbar radiographs dated 09/02/2020 and MRI lumbar spine dated 10/31/2019. ACCESSION NUMBER(S): [id number] ORDERING CLINICIAN: Farhan Celeste TECHNIQUE: Multiplanar multisequence MR imaging of the lumbar spine performed prior to and following administration of 13 mL Gadavist intravenous contrast. Sagittal T1, T2, STIR, axial T1 and T2 weighted images of the lumbar spine were acquired. Postcontrast sagittal and axial T1 imaging obtained. FINDINGS: Segmentation: Normal. Conus: The lower thoracic cord appears unremarkable. The conus terminates at the L1-L2 interspace level. Cauda equina are unremarkable. No abnormal enhancement. Epidural fluid: None. Alignment: Unchanged rotatory levoscoliosis. Vertebral bodies: Minimal chronic anterior wedging of T12. Minimal multilevel Schmorl's node deformities. Marrow signal: No abnormal marrow edema or enhancement. Intervertebral discs: Moderate degenerative disc height loss at L5-S1. Additional mild disc height loss at L2-L3. Degenerative change: T12-L1: Unremarkable. L1-2: Mild noncompressive disc bulge. L2-3: Mild to moderate disc bulge with mild hypertrophic endplate spurring along the rightward aspect. Slightly prominent epidural fat. No spinal canal stenosis. Mild right and minimal left neural foraminal narrowing. L3-4: Mild bilateral facet arthropathy. Mild to moderate disc bulge. No spinal canal stenosis. Mild bilateral, right greater than left, neural foraminal narrowing. L4-5: Evidence of prior left hemilaminectomy and likely partial facetectomy. Component of enhancing granulation tissue overlying the laminectomy bed and dorsal left epidural space. There is also a component of enhancing granulation tissue within the left subarticular region and surrounding the left L5 nerve root inferiorly. Moderate disc bulge, eccentric to the left, with hypertrophic endplate spurring along the left lateral aspect. No spinal canal stenosis. Enhancing granulation tissue within the right L4 neural foramen with similar appearing mild to moderate left and mild right neural foraminal narrowing. L5-S1: Prior left hemilaminectomy and partial facetectomy with enhancing granulation tissue. There is a component of epidural lipomatosis with mild circumferential narrowing of the thecal sac. Small to moderate-sized central disc protrusion component. Mild right and moderate left neural foraminal narrowing. Soft tissues: Fatty atrophy of the posterior paraspinal musculature, greater on the left. IMPRESSION: Similar MR appearance of the lumbar spine. Postoperative change corresponding to left hemilaminectomy at L4-L5 and L5-S1 with enhancing granulation tissue components within the left subarticular regions. There is no significant spinal canal stenosis. Moderate left neural foraminal narrowing at L5-S1 and mild to moderate left neural foraminal narrowing at L4-L5 with enhancing granulation tissue components is again evident. Normal [facility] MRI LOW EXT ANY JNT WO CON L Ton 10-29-2020 MRI LOW EXT ANY JNT WO CON LT STUDY: MRI LOW EXT ANY JNT WO CON LT; ; 10/29/2020 11:42 am INDICATION: LEFT HIP PAIN. COMPARISON: None. ACCESSION NUMBER(S): [id number] ORDERING CLINICIAN: Farhan Celeste TECHNIQUE: MR imaging of the pelvis and left hip was obtained without administration of intravenous contrast medium. FINDINGS: There is no fracture. There is no marrow replacing lesion. Mild degenerative change the hips bilaterally with cartilage loss and osteophytosis. Mild degenerative change the pubic symphysis as well. The SI joints are unremarkable. There is no hip joint effusion, erosions or subchondral edema. There is mild hamstring tendinosis bilaterally. Otherwise the tendons origins and insertions about the hips are intact. There is no tenosynovitis. There is no muscle edema. There is no atrophy. There is no fluid collection. Limited evaluation of the internal os of the pelvis does not demonstrate a focal abnormality. Note is made that the study is not tailored for evaluation of the internal organs of the pelvis however IMPRESSION: Mild bilateral hip degenerative changes. Mild bilateral hamstring tendinosis. No acute abnormality seen Normal [facility] LUMB SP COMP W FLEX/EXT 6 VW Son 09-02-2020 LUMB SP COMP W FLEX/EXT 6 VWS STUDY: LUMB SP COMP W FLEX/EXT 6 VWS ; 09/02/2020 11:01 am INDICATION: PAIN. COMPARISON: 10/17/2019 ACCESSION NUMBER(S): [id number] ORDERING CLINICIAN: Farhan Celeste FINDINGS: No acute fracture or subluxation of the lumbar spine. Moderate levoscoliosis. Moderate multilevel disc height loss with scattered endplate sclerosis and osteophyte formation. Severe multilevel facet arthropathy with spinous process changes of Baastrup's disease. No pars defects identified. No instability on flexion or extension. There is increased disc height and vacuum phenomenon L5-S1 extension compared to flexion. Atherosclerosis is present. IMPRESSION: Severe degenerative changes of the lumbar spine without instability. Normal [facility] MRA HEAD WO CONTRASTon 07-26 MRA HEAD WO CONTRAST [facility] Department of Radiology [address] [place] [address] Patient Name: ELMER ELLIS : 1965 Sex: F Age: Race: White Pt. Location: 30 Patient Status: D Ordered Date: 06/17/2020 10:35:00 AM Completed Date: 07/26/2020 10:58 AM Requesting Provider: MALIK NI V Attending Provider: MALIK NI V Report Copy To: Signs & Symptoms: H93.A3 Pulsatile tinnitus, bilateral I10 History: [place] X1 Stent, R Leg, [facility] April 2020 [place] auth# [id number] 06/25/20-08/09/20 *ER Comments: evaluate Exam: MRA HEAD WO CONTRAST CLINICAL INFORMATION: Pulsatile tinnitus, bilateral. TECHNIQUE/PROCEDURE: MR angiography of the head was performed without intravenous contrast. In addition, MIP and/or 3-D reformatted images were constructed under concurrent physician supervision on an independent workstation for evaluation of the cerebral arteries to better define anatomy and possible pathology. COMPARISON: MRI brain same day FINDINGS: The visualized portions of the vertebral arteries are unremarkable. Dominant right vertebral artery. Inferior cerebellar arteries are patent without aneurysm. Basilar artery is patent. Posterior cerebral arteries are patent. Persistent circulation on the right. No aneurysm or filling defects in the posterior cerebral arteries. Visualized portions of the internal carotid arteries are unremarkable. Carotid terminus is within normal limits. Middle cerebral arteries are patent without aneurysm or filling defect. Anterior cerebral arteries are patent without aneurysm or filling defect. The anterior communicating artery is unremarkable. Vascular loops are seen adjacent to the internal auditory canals, but do not appear to reside within the internal auditory canals given the limitations of a large ziblc-an-xicw imaging. IMPRESSION: * No aneurysm, thrombus or hemodynamically significant stenosis in the cerebral arteries. Electronically signed: Sharona Carrillo M.D.. Transcribed by: [email or web address], User Resident: Electronically Signed by: SHARONA CARRILLO @ 07/29/2020 08:07 AM [place] [facility] Comment on above: Order Comment: evalu ate MRI BRAIN WO CONTRASTon 06-0 MRI BRAIN WO CONTRAST [facility] Department of Radiology [address] [place] [address] Patient Name: ELMER ELLIS : 1965 Sex: F Age: Race: White Pt. Location: 30 Patient Status: D Ordered Date: 06/17/2020 10:35:00 AM Completed Date: 07/26/2020 10:58 AM Requesting Provider: MALIK NI V Attending Provider: MALIK NI V Report Copy To: Signs & Symptoms: H93.A3 Pulsatile tinnitus, bilateral I10 History: Chrissy X1 Stent, R Leg, [facility] April 2020 [place] AUTH # [id number] 06/24/2020-08/08/2020 [id number] / Comments: evaluate Exam: MRI BRAIN WO CONTRAST CLINICAL INFORMATION: Pulsatile tinnitus, bilateral. TECHNIQUE/PROCEDURE: Multiplanar, multisequence MR imaging of the brain was performed without intravenous contrast. COMPARISON: No relevant prior studies available. FINDINGS: Study is compromised by motion artifact. No mass effect or midline shift. The ventricular system is normal in size and configuration. Periventricular and subcortical white matter changes, mild burden, which is nonspecific. Corpus callosum, optic chiasm and pituitary gland are unremarkable. No cerebellar tonsillar herniation. No suspicious for foci of susceptibility. No infarct. Soft tissues in the skull base and surrounding the calvarium are negative for acute or suspicious pathology. No osseous lesions are identified. Normal flow voids in the anterior and posterior circulation as well as the dural venous sinuses. Large jfawn-fw-zewp evaluation of the internal auditory canals is negative for mass. IMPRESSION: * No acute intracranial findings. * Scattered, mild burden of nonspecific T2 weighted/FLAIR hyperintensities. Differential diagnosis includes sequelae of chronic small vessel ischemic disease, Lyme disease, vasculitis, chronic migraines, among others. Electronically signed: Sharona Carrillo M.D.. Transcribed by: [email or web address], User Resident: Electronically Signed by: SHARONA CARRILLO @ 07/29/2020 07:57 AM Normal [facility] Comment on above: Order Comment: evalu ate Vital Signs Date Time Vital Sign Value Performing Clinician Facility 03-24-2023 16:45-0500 Body height 162.6 cm Jenny Marinoaries [facility] Work Phone: [facility] 03-24-2023 16:45-0500 Body mass index (BMI) [Ratio] 45.93 kg/m2 Jenny Borrego [employer] [employer] Work Phone: [facility] 03-24-2023 16:45-0500 Body temperature 97.11 [degF] Jenny Borrego [employer] [employer] Work Phone: [facility] 03-24-2023 16:45-0500 Body weight 121.38 kg Jenny Borrego [employer] [employer] Work Phone: [facility] 03-24-2023 16:45-0500 Diastolic blood pressure 70 mm[Hg] Jenny Borrego [employer] [employer] Work Phone: [facility] 03-24-2023 16:45-0500 Heart rate 76 /min Jenny Marinoernestomeron [employer] [employer] Work Phone: [facility] 03-24-2023 16:45-0500 Respiratory rate 20 /min Jenny Borrego [employer] [employer] Work Phone: [facility] 03-24-2023 16:45-0500 SaO2% (BldA) [Mass fraction] 97 % Jenny Marinoaries [employer] [employer] Work Phone: [facility] 03-24-2023 16:45-0500 Systolic blood pressure 112 mm[Hg] Jenny Mylesdanilo [facility] [employer] Work Phone: [facility] 10-15-2022 12:17-0400 Body weight 117.03 kg Lex Pickens MD Work Phone: [facility] 07-30-2022 09:06-0400 Body temperature 97.8 [degF] DO Dawit House Work Phone: [facility] 07-30-2022 09:06-0400 Body weight 115.66 kg DO Dawit House Work Phone: [facility] 07-30-2022 09:06-0400 Diastolic blood pressure 72 mm[Hg] DO Dawit House Work Phone: [facility] 07-30-2022 09:06-0400 Heart rate 82 /min DO Dawit House Work Phone: [facility] 07-30-2022 09:06-0400 Respiratory rate 16 /min DO Dawit House Work Phone: [facility] 07-30-2022 09:06-0400 SaO2% (BldA) [Mass fraction] 97 % DO Dawit House Work Phone: [facility] 07-30-2022 09:06-0400 Systolic blood pressure 128 mm[Hg] DO Dawit House Work Phone: [facility] 06-16-2022 09:38-0400 Body height 162.56 cm DO Dawit House Work Phone: [facility] 06-02-2022 15:31-0400 Diastolic blood pressure 66 mm[Hg] DO Dawit House Work Phone: [facility] 06-02-2022 15:31-0400 Heart rate 81 /min DO Dawit House Work Phone: [facility] 06-02-2022 15:31-0400 Respiratory rate 18 /min DO Dawit House Work Phone: [facility] 06-02-2022 15:31-0400 SaO2% (BldA) [Mass fraction] 96 % DO Dawit Ba Work Phone: [facility] 06-02-2022 15:31-0400 Systolic blood pressure 114 mm[Hg] DO Dawit Ba Work Phone: [facility] 06-02-2022 15:01-0400 Inhaled oxygen flow rate 8 L/min DO Dawit Ba Work Phone: [facility] 06-02-2022 12:09-0400 Body height 162.56 cm DO Dawit Ba Work Phone: [facility] 06-02-2022 12:09-0400 Body temperature 98.7 [degF] DO Dawit Ba Work Phone: [facility] 06-02-2022 12:09-0400 Body weight 117.93 kg DO Dawit Ba Work Phone: [facility] 03-16-2022 13:36-0500 Body height 162.6 cm Lex Pickens MD Work Phone: [facility] 03-16-2022 13:36-0500 Body weight 120.2 kg Lex Pickens MD Work Phone: [facility] 03-16-2022 13:36-0500 Diastolic blood pressure 80 mm[Hg] Lex Pickens MD Work Phone: [facility] 03-16-2022 13:36-0500 Heart rate 87 /min Lex Pickens MD Work Phone: [facility] 03-16-2022 13:36-0500 Systolic blood pressure 128 mm[Hg] Lex Pickens MD Work Phone: [facility] 10-12-2021 12:53-0400 Body height 162.6 cm Lilly Tony MD Work Phone: [facility] 10-12-2021 12:53-0400 Body weight 117.94 kg Lilly Tony MD Work Phone: [facility] 10-12-2021 12:53-0400 Respiratory rate 20 /min Lilly Tony MD Work Phone: [facility] 07-27-2021 09:31-0400 Blood Pressure Location Jluis ROBLEDO [facility] 07-27-2021 09:31-0400 Diastolic blood pressure 73 mm[Hg] Jluis ROBLEDO [facility] 07-27-2021 09:31-0400 Heart rate 89 /min Jluis ROBLEDO [facility] 07-27-2021 09:31-0400 Systolic blood pressure 120 mm[Hg] Jluis ROBLEDO [facility] Encounters Encounter Date Encounter Type Care Provider Facility Start: 07-07-2023 ambulatory Joanne Lopezindia Facility:[facility] Start: 06-23-2023 End: 06-23-2023 ambulatory JENNY SALIMA Not Available Start: 06-15-2023 End: 06-15-2023 [facility] Lex Pickens MD Work Phone: Urology Comment on above: Other specified diso rders of kidney and ureter (Primary Dx); Renal mass; Morbid obesity (HCC); Type 2 diabetes mellitus with diabetic neuropathy, with long-term current use of insulin (HCC) Start: 05-17-2023 End: 05-17-2023 ambulatory LEX PICKENS Facility:[facility] Start: 05-02-2023 End: 05-03-2023 ambulatory WALESKA VASQUEZ Not Available Start: 04-28-2023 Telephone encounter Angie marin APRN.CNP Work Phone: Hematology/Oncology Comment on above: Orders Start: 04-13-2023 End: 04-13-2023 ambulatory DO Dawit Ba Work Phone: [facility] Work Phone: Start: 04-13-2023 End: 04-13-2023 Patient encounter procedure DO Dawit Ba Work Phone: [facility] [place] Work Phone: Start: 04-13-2023 Registered Recurring DO Maverick s House Work Phone: [facility] Work Phone: Start: 04-05-2023 Refill Jenny Salima [employer] Work Phone: [facility] Comment on above: Acute non-recurrent sinusitis of other sinus (Primary Dx) Start: 03-24-2023 End: 03-24-2023 Assay of hemosiderin, quant Jenny Salima [employer] [employer] Work Phone: [facility] Start: 03-24-2023 End: 03-24-2023 Patient encounter procedure Jenny Shamekahernestoz [employer] [employer] Work Phone: [facility] Comment on above: Encounter for annual wellness visit (AWV) in Medicare patient (Primary Dx); Type 2 diabetes mellitus with diabetic neuropathy, with long-term current use of insulin (CMS/HCC); CAD in [place] artery (CMS/HCC); Tobacco user; Malignant neoplasm of kidney, unspecified laterality (CMS/HCC); Type 2 diabetes mellitus with insulin therapy (CMS/HCC); Routine general medical examination at health care facility Start: 03-24-2023 End: 03-24-2023 Refill Jenny Aichholz [employer] [employer] Work Phone: [facility] Comment on above: CAD in [place] artery (CMS/HCC) (Primary Dx) Start: 02-02-2023 End: 02-03-2023 ambulatory WALESKA Mccray APLING Not Available Start: 10-15-2022 End: 10-15-2022 [facility] Lex Pickens MD Work Phone: Urology Comment on above: Renal mass, right (P rimary Dx); Family history of renal cancer; Morbid obesity (HCC); Current every day smoker; Other specified disorders of kidney and ureter Start: 10-15-2022 End: 10-15-2022 ambulatory LEX PICKENS Facility:[facility] Start: 10-07-2022 End: 10-07-2022 ambulatory LXE PICKENS Facility:[facility] Start: 08-04-2022 End: 08-04-2022 ambulatory [facility] Start: 06-18-2022 End: 06-19-[address] DAWIT BA Facility: Start: 06-02-2022 End: 06-02-2022 Admission to same day surgery center DO Dawit Kittanning Work Phone: [facility] [place] Start: 06-02-2022 End: 06-02-2022 ambulatory DO Dawit Ba Work Phone: [facility] Work Phone: Start: 05-31-2022 End: 05-31-2022 ambulatory [facility] Start: 04-22-2022 End: 04-23-[address] DAWIT BA Facility: Start: 04-09-2022 End: 04-10-2022 [facility] Lex Pickens MD Work Phone: Urology Comment on above: Other specified diso rders of kidney and ureter (Primary Dx) Start: 03-19-2022 Telephone encounter Joi Austin RN R ad[facility] Comment on above: Orders (CT) Start: 03-16-2022 End: 03-16-2022 Patient encounter procedure Lex Pickens MD Work Phone: Urology Comment on above: Renal mass, right (P rimary Dx); Factor V Leiden (HCC); Coronary artery disease involving [place] heart without angina pectoris, unspecified vessel or lesion type; Smoker; Morbid obesity (HCC); Other specified disorders of kidney and ureter; Renal mass Start: 03-05-2022 End: 03-06-2022 ambulatory MD Jluis ROBLEDO Facility:[facility] Start: 03-05-2022 End: 03-05-2022 Patient encounter procedure Jluis ROBLEDO [facility] Start: 02-01-2022 End: 02-02-[address] DAWIT BA Facility: Start: 11-09-2021 End: 11-09-2021 ambulatory DAWIT BA SR Facility:[facility] Start: 10-13-2021 Telephone encounter Lilly pruitt MD Work Phone: [facility] Comment on above: Patient Update Start: 10-12-2021 End: 10-12-2021 ambulatory DAWIT BA Facility:[facility] Start: 10-12-2021 End: 10-12-2021 Patient encounter procedure Lilly Tony MD Work Phone: [facility] Comment on above: Closed fracture of l eft ankle, initial encounter (Primary Dx) Start: 09-21-2021 End: 09-21-2021 ambulatory LILLY TONY Facility:[facility] Start: 09-16-2021 Telephone encounter Ag Orth Work Phone: [facility] Comment on above: ER F/U Start: 09-12-2021 End: 09-12-2021 Emergency department patient visit DAWIT BA Facility:[facility] Start: 09-03-[address] DAWIT BA Facili ty:[facility] Start: 07-27-2021 End: 07-28-2021 ambulatory MD Jluis ROBLEDO Facility:[facility] Start: 07-27-2021 End: 07-27-2021 Patient encounter procedure Jluis ROBLEDO [facility] Start: 06-24-2021 ambulatory MD Jluis ROBLEDO Facil ity:[facility] Procedures Date Procedure Procedure Detail Performing Clinician Start: 11-19-2022 Mammography Jenny beckett [employer] Work Phone: Start: 06-02-2022 Esophagogastroduodenoscopy DO Dawit Ba Work Phone: Start: 06-02-2022 Colonoscopy Jenny beckett NP Work Phone: Abdominal hysterectomy Tatiana ROBLEDO Appendectomy Jluis ROBLEDO Bilateral tubal ligation Elayne ROBLEDO Cholecystectomy Jluis LAU Plan of Treatment Date Care Activity Detail Author Start: 06-02-2032 Screening for malign ant neoplasm of colon [facility] Start: 07-28-2025 Diabetes Screening Diabetes Screenin g [facility] Start: 03-24-2024 Medicare Annual Well ness (AWV) Medicare Annual Wellness (AWV) [facility] Start: 11-20-2023 Screening for malign ant neoplasm of breast Mammogram [facility] Start: 10-20-2023 Glaucoma screening Diabetes: R etinopathy Screening [facility] Start: 10-12-2023 Hemoglobin A1c measurement HbA1C [facility] Start: 09-28-2023 Urine screening for protein Diabetes: Urine Protein Screening [facility] Start: 06-23-2023 End: 06-23-2023 Patient encounter procedure 06/23/2023 10:30 AM EDT Office Visit [facility] [address] [place] [address] Jenny Brorego, ZELALEM [address] [place] [address] [facility] Start: 05-17-2023 End: 08-16-2023 CREATININE BLD CREATININE BLD Lab Routine Renal mass Expected: 05/17/2023 (Approximate), Expires: 08/16/2023 [facility] Work Phone: Comment on above: Expected: 05/17/2023 (Approximate), Expires: 08/16/2023 Start: 04-22-2023 End: 03-24-2024 Hemoglobin A1c measurement Hemoglobin A1c Lab Routine Type 2 diabetes mellitus with diabetic neuropathy, with long-term current use of insulin ([facility]) Expected: 04/22/2023 (Approximate), Expires: 03/24/2024 [facility] Work Phone: Comment on above: Expected: 04/22/2023 (Approximate), Expires: 03/24/2024 Start: 04-13-2023 Erythropoietin (EPO) [Units/volume] in Serum or Plasma [facility] Start: 04-13-2023 End: 04-13-2023 [facility] Start: 04-12-2023 Hemoglobin A1c measurement Diabetes: Hemoglobin A1C [facility] Start: 03-16-2023 [facility] Start: 02-21-2023 Behavioral Health Screening Behavioral Health Screening [facility] Start: 02-21-2023 Depression Assessment Depression Ass essment [facility] Start: 02-11-2023 [facility] Start: 01-26-2023 Shingrix Vaccine (2 of 2) Shingrix Vaccine (2 of 2) [facility] Start: 12-20-2022 [facility] Start: 10-22-2022 Covid-19 Vaccine ( season) Covid-19 Vaccine ( season) [facility] Start: 10-22-2022 Influenza vaccination C [facility] Start: 10-07-2022 End: 05-09-2023 Ct abdomen w/o & w/contrast material CT KIDNEY WO/W IVCON Radiology Routine Other specified disorders of kidney and ureter Expected: 10/07/2022, Expires: 05/09/2023 [facility] Work Phone: Comment on above: Expected: 10/07/2022 , Expires: 05/09/2023 Start: 07-26-2022 [facility] Start: 07-06-2022 [facility] Start: 07-01-2022 [facility] Start: 06-23-2022 End: 06-23-2022 [facility] Start: 06-23-2022 End: 06-23-2022 [facility] Start: 06-23-2022 [facility] Start: 06-02-2022 [facility] Start: 06-02-2022 [facility] Start: 04-05-2022 End: 06-05-2022 CREATININE BLD CREATININE BLD Lab Routine Renal mass Expected: 04/05/2022, Expires: 06/05/2022 [facility] Work Phone: Comment on above: Expected: 04/05/2022 , Expires: 06/05/2022 Start: 02-21-2022 DEPRESSION ASSESSMENT DEPRESSION ASS ESSMENT [facility] Start: 10-22-2021 Influenza vaccination INFLUENZA (#1) [facility] Start: 06-25-2021 COVID-19 VACCINE (4 - Booster for Pfizer series) COVID-19 VACCINE (4 - Booster for Pfizer series) [facility] Start: 04-22-2021 COVID-19 VACCINE (4 - Booster for Pfizer series) COVID-19 VACCINE (4 - Booster for Pfizer series) [facility] Start: 04-22-2021 COVID-19 VACCINE (4 - Pfizer series) COVID-19 VACCINE (4 - Pfizer series) [facility] Start: 07-23-2017 Pneumococcal vaccination Pneum ococcal Vaccine (2 of 2 - PCV) [facility] Start: 11-06-2015 SHINGRIX VACCINE (1 of 2) SHINGRIX VACCINE (1 of 2) [facility] Start: 2010 COLOGUARD (FIT-DNA) COLOGUARD (FIT-D NA) [facility] Start: 2010 Colonoscopy COLONOSCOPY [facility] Start: 2010 COLORECTAL CANCER SCREENING COLORECTAL CANCER SCREENING [facility] Start: [address] COLONOGRAPHY [facility] Start: 2010 DIABETES SCREEN DIABETES SCREEN [facility] Start: 2010 FECAL OCCULT BLOOD FECAL OCCULT BLOO D [facility] Start: 2010 Lipid panel Lipid Screening [facility] Start: 2010 LIPID SCREEN LIPID SCREEN [facility] Start: 2010 Screening for malign ant neoplasm of colon [facility] Start: 2010 SIGMOIDOSCOPY SIGMOIDOSCOPY [facility] Start: 2005 Mammography MAMMOGRAM [facility] Start: 2005 Screening for malign ant neoplasm of breast Mammogram Screening [facility] Start: 11-06-1995 HPV TESTING HPV TESTING [facility] Start: 11-06-1995 Screening for malign ant neoplasm of cervix [facility] Start: 1986 PAP TESTING PAP TESTING [facility] Start: 1986 Screening for malign ant neoplasm of cervix [facility] Start: 1984 Hepatitis B Vaccine (1 of 3 - 19+ 3-dose series) Hepatitis B Vaccine (1 of 3 - 19+ 3-dose series) [facility] Start: 1984 Urine microalbumin profile [facility] Start: 11-06-1983 ANNUAL PCP TEAM RADIO TESTER ABIOLA DISEASE VISIT ANNUAL PCP TEAM CHRONIC DISEASE VISIT [facility] Start: 11-06-1983 Hepatitis B surface antibody level LDL CHOLESTEROL [facility] Start: 11-06-1983 HEPATITIS C SCREENING HEPATITIS C [facility] Start: 11-06-1983 Hepatitis C screening Hepatitis C [facility] Start: 11-06-1983 HIV SCREENING HIV SCREENING [facility] Start: 11-06-1983 HIV screening HIV Screening [facility] Start: 1977 Adult depression screening assessment DEPRESSION SCREENING [facility] Start: 11-06-1975 Diabetic foot examination Diabetic Foot Exam [facility] Start: 11-06-1975 Glaucoma screening Dilated Retinal E xam [facility] Start: 11-06-1975 Hepatitis B screening Urine Albumin:Creatinine Ratio [facility] Start: 11-06-1971 PNEUMOCOCCAL (1 - PCV) PNEUMOCOCCAL (1 - PCV) [facility] Start: 1965 HEPATITIS B (1 of 3 - 3-dose series) HEPATITIS B (1 of 3 - 3-dose series) [facility] Start: 1965 Hepatitis B Vaccine (1 of 3 - 3-dose series) Hepatitis B Vaccine (1 of 3 - 3-dose series) [facility] Start: 1965 Screening for malign ant neoplasm of colon [facility] metabo lic 2000 panel - Serum or Plasma [facility] End: 07-14-2024 CT Abdomen W contrast IV CT ABDOMEN W IVCON Radiology Routine Other specified disorders of kidney and ureter 1 Occurrences starting 06/15/2023 until 07/14/2024 [facility] Work Phone: Comment on above: 1 Occurrences starti ng 06/15/2023 until 07/14/2024 End: 11-15-2023 Ct abdomen w/o & w/contrast material CT KIDNEY WO/W IVCON Radiology Routine Renal mass, right Other specified disorders of kidney and ureter 1 Occurrences starting 10/16/2022 until 11/15/2023 [facility] Work Phone: Comment on above: 1 Occurrences starti ng 10/16/2022 until 11/15/2023 Erythropoietin (EPO) [Units/volume] in Serum or Plasma [facility] Glucose measurement estimated from glycated hemoglobin [facility] Methylmalonate [Moles/volume] in Serum or Plasma [facility] URINALYSIS, REFLEX MICROSCOPIC URINALYSIS, REFLEX MICROSCOPIC Lab Routine Screening for genitourinary condition Ordered: 10/15/2022 [facility] Work Phone: Comment on above: Ordered: 10/15/2022 XR ANKLE GENERAL 3V AP/LAT/OBL LEFT XR ANKLE GENERAL 3V AP/LAT/OBL LEFT Radiology Routine Closed fracture of left ankle, initial encounter Ordered: 10/12/2021 [facility] Work Phone: Comment on above: Ordered: 10/12/2021 [facility] Immunizations Immunization Date Immunization Notes Care Provider [facility] 12-01-2022 influenza, injectabl e, quadrivalent, preservative free Jenny Aichholz [employer] Work Phone: [facility] 12-01-2022 zoster vaccine recombinant Jenny Aichholz [employer] Work Phone: [facility] 12-18-2021 influenza virus vacc ine, unspecified formulation Jluis ROBLEDO [facility] 12-18-2021 Influenza, injectabl e, Madin Rafaela Canine Kidney, preservative free, quadrivalent Jenny Aichholz [employer] Work Phone: [facility] 02-25-2021 influenza virus vacc ine, unspecified formulation Jluis ROBLEDO [facility] 02-25-2021 influenza, injectabl e, quadrivalent, preservative free Jenny Aichholz [employer] Work Phone: [facility] 02-25-2021 SARS-CoV-2 (COVID-19 ) mRNA [id number] vax Jluis ROBLEDO [facility] 11-21-2020 influenza virus vacc ine, unspecified formulation Jluis ROBLEDO [facility] 11-12-2020 influenza virus vacc ine, unspecified formulation Jluis ROBLEDO [facility] 06-19-2020 SARS-CoV-2 mRNA (tozinameran 5y-11y) vaccine Jluis ROBLEDO [facility] 05-29-2020 SARS-CoV-2 mRNA (tozinameran 5y-11y) vaccine Jluis ROBLEDO [facility] 10-17-2018 influenza virus vacc ine, unspecified formulation Jluis ROBLEDO [facility] 10-17-2018 influenza, injectabl e, quadrivalent, preservative free Jenny Salima [employer] Work Phone: [facility] 11-23-2017 influenza virus vacc ine, unspecified formulation Jluis ROBLEDO [facility] 11-23-2017 influenza, injectabl e, quadrivalent, preservative free Jenny Salima [employer] Work Phone: [facility] 10-20-2017 influenza virus vacc ine, unspecified formulation Jluis ROBLEDO [facility] 10-20-2017 influenza, injectabl e, quadrivalent, preservative free Jenny Aichholz [employer] Work Phone: [facility] 11-22-2016 influenza virus vacc ine, unspecified formulation Jluis ROBLEDO [facility] 11-22-2016 influenza, injectabl e, quadrivalent, preservative free Jenny Aichholz [employer] Work Phone: [facility] 11-06-2016 influenza virus vacc ine, unspecified formulation Jluis ROBLEDO [facility] 11-06-2016 influenza, injectabl e, quadrivalent, preservative free Jenny Aichholz [employer] Work Phone: [facility] 07-23-2016 pneumococcal polysaccharide vaccine, 23 valent Jluis ROBLEDO [facility] Payers Date Payer Category Payer Medicaid MEDICAID [facility] MEDICAID [id number] 2022-Present [phone] [address] [place] [address] Medicaid [id number] 2022 Private Health Insurance [id number] 2019 Medicare MEDICARE MEDICAR E A AND B [id number] 2019-Present [phone] [address] [address] [place] [address] Medicare [id number] 2019 Medicare [id number] 2019 Private Health Insurance [facility] CHOICE PLUS [id number] 2019-Present [phone] [address] [place] [address] O [id number] 2019 Private Health Insurance [facility] CHOICE PLUS [id number] 2019-Present [phone] [address] [place] [address] HMO [id number] 2019 Unknown [id number] 1965 Unknown [id number] [id number]. 727 1965 Unknown [id number] 2.16.840.1.621050.3.579.2. 727 1965 Unknown [id number] 2.16.840.1.449086.3.579.2. 727 1965 Unknown [id number] 2.16.840.1.799906.3.579.2. 593 1965 Unknown [id number] 2.16.840.1.600219.3.579.2. 593 1965 Unknown [id number] 2.16.840.1.537312.3.579.2. 593 1965 Unknown [id number] 2.16.840.1.427922.3.579.2. 593 1965 Unknown [id number] 2.16.840.1.557828.3.579.2. 1259 1965 Unknown [id number] 2.16.840.1.738603.3.579.2. 1259 1965 Unknown [id number] 2.16.840.1.176677.3.579.2. 1259 1965 Unknown [id number] 2.16.840.1.113607.3.579.2. 1259 1965 Unknown [id number] 2.16.840.1.355718.3.579.2. 1259 1965 Unknown [id number] 2.16.840.1.041236.3.579.2. 1259 1965 Unknown [id number] 2.16.840.1.301832.3.579.2. 1259 1959 Medicaid [id number] 1959 Medicare [id number] 1959 Private Health Insurance [id number] 1959 Self-pay [id number] Medicare [id number] Unknown Lj BC/BS [id number] Unknown [id number]. 531 Social History Date Type Detail Facility Start: 07-27-2021 End: 03-05-2022 Tobacco smoking status Heavy tobacco smoker (finding) [facility] Start: 10-15-2022 End: 03-24-2023 Sex Assigned At Female [facility] Tobacco smoking stat NHIS Tobacco smoking consumption unknown [facility] Start: 1965 Sex Assigned At Not on file C [facility] Start: 09-02-2021 End: 10-12-2021 Exposure to SARS-CoV-2 (event) Not sure [facility] Start: 10-12-2021 End: 01-10-2023 Tobacco smoking status KYIS Smokes tobacco daily [facility] History of tobacco use Cigarette Smoker C [facility] Start: 10-12-2021 End: 01-10-2023 Tobacco use and exposure Smokeless tobacco non-user [facility] Start: 10-12-2021 End: 10-15-2022 Alcohol intake Ex-drinker (finding) [facility] Start: 06-02-2022 End: 07-30-2022 Tobacco smoking status NHIS Smoker (finding) [facility] Start: 1965 Sex Assigned At Female F [facility] Start: 10-15-2022 End: 03-24-2023 History of Social function [facility] National Score (1-10 0), lower number is lower risk 63 [facility] Within the last year , have you been afraid of your partner or ex-partner? No [facility] Are you now , , , , never or living with a partner? [facility] How often to you hav e a drink containing alcohol? Never [facility] How hard is it for y ou to pay for the very basics like food, housing, medical care, and heating Not very hard [facility] Do you feel stress - tense, restless, nervous, or anxious, or unable to sleep at night because your mind is troubled all the time - these days [OSQ] Very much [facility] (I/We) worried wheth er (my/our) food would run out before (I/we) got money to buy more. Never true [facility] Start: 01-10-2023 Tobacco Comment 11-20 cigarettes/day [facility] Start: 02-02-2023 Alcohol Comment Caffeine: coffee,soda/pop: 10cups daily [facility] Medical Equipment Procedure Code Equipment Code Equipment Origin al Text Equipment Identifier Dates USE TWICE DAILY [id number] Start: 02-12-2023 Goals Date Patient Goal Desired Activity /State Functional Status Date Assessment Result Facility 03-05-2022 Functional Status N/A [facility] Clinical Notes 07-27-2021 to 06-15-2023 Lex Pickens MD - 06/15/2023 11:00 AM EDTTelephone Encounter - Josie Leong RN - 04/28/2023 12:15 PM Robert Borrego NP - 03/24/2023 7:10 PM Robert Borrego NP - 03/24/2023 7:07 PM EST Note Date & Type Note Facility 06-15-2023 Note HNO ID: [id number] Author: LEX PICKENS MD Service: ? Author Type: Physician Type: Progress Notes Filed: 06/15/2023 12:22 Note Text: VIRTUAL VISIT PROGRESS NOTE This is a virtual visit using [employer] Video Visit. It required patient-provider interaction for the medical decision making as documented below. I have communicated my name and active licensure. The patient's identity and physical location were verified at the time of this visit. Either the patient or their legal operations representative has been informed of the risks and benefits of -- and alternatives to -- treatment through a remote evaluation and consents to proceed with the evaluation remotely. Persons Present: patient Chief Complaint/Reason: renal mass Clinic note from 10/15/2022 copied and updated. HPI: Elmer Ellis is a 57 year old female with right renal mass who presents for follow up. Initially discovered in 05/2021 upon work up for gastritis. Last seen via virtual visit 10/15/22. Encouraged weight loss and smoking cessation. Plan for continued surveillance of mass with CT kidney in [address] KIDNEY WO/W IVCON 05/17/2023 IMPRESSION: 1. Since 10/07/2022, continued mild increase in size of a 3.7 cm right renal neoplasm (previously 3.4 cm). 2. Patent renal veins and inferior vena cava. No abdominal metastatic disease. Interval Hx: I measured R renal mass Past Surgical History: Open cholecystectomy (1984), MAURICE/BSO for endometriosis (1991), spinal surgery, knee surgery Past Medical History: DMII, Factor V Leiden with provoked DVT after knee surgery (2016), CAD, PAD; HLD, morbid obesity Radiation History: none Anticoagulation: Xarelto, plavix Social History: current smoker (I PPD x >30 years) ; no ETOH or drug use, disabled Family History: Sister x2 - Lung Cancer; she recently discovered maternal aunt and maternal had kidney cancer - both had nephrectomy Data Reviewed: Most recent labs and imaging results. Labs: Creatinine Date Value Ref Range Status 05/17/2023 1.19 (H) 0.58 - 0.96 mg/dL Final 10/07/2022 1.06 (H) 0.58 - 0.96 mg/dL Final 04/05/2022 0.91 0.58 - 0.96 mg/dL Final Creatinine 02/01/2022- 1.00 mg/dL 06/15/2021- 1.01 mg/dL 04/28/2021- 0.82 mg/dL Imaging: CT KIDNEY WO/W IVCON 10/07/2022 IMPRESSION: 3.3 cm RIGHT upper pole renal neoplasm minimally increased from 3.0 cm the May 2021 study. No advanced disease; no lymphadenopathy, renal vein involvement or adrenal involvement. CT KIDNEY WO/W IVCON 04/05/2022 IMPRESSION: 1. A 3.3 cm heterogeneously enhancing mass within the medial right renal upper pole is unchanged since 02/01/2022, and remains compatible with a solid renal neoplasm. 2. There is unchanged abutment of the right renal hilar vasculature by the aforementioned right renal mass. The right renal vein and inferior vena cava are patent. 3. No evidence of metastatic disease within the abdomen. CT ABD/PEL: 02/02/2022 1. Heterogeneous, enhancing right renal mass which continues to increase increased slowly in size, now maximum 2.9 cm in diameter, favoring renal cell carcinoma. 2. No evidence of metastatic disease. 3. Marked degenerative disc disease L5-S1. HISTORY REVIEWED (electronic chart updated): No past medical history on file. No past surgical history on file. No family history on file. Social History Tobacco Use Smoking status: Every Day Types: Cigarettes Smokeless tobacco: Never Substance Use Topics Alcohol use: Not Currently Drug use: Yes Types: Marijuana Current Outpatient Medications Medication Sig DULoxetine (CYMBALTA) 60 mg capsule duloxetine 60 mg capsule,delayed release TAKE 1 CAPSULE BY MOUTH EVERY DAY atorvastatin (LIPITOR) 80 mg tablet Take 80 mg by mouth once daily. fexofenadine (LUZ) 180 mg tablet fexofenadine 180 mg tablet TAKE 1 TABLET BY MOUTH EVERY DAY gabapentin (NEURONTIN) 300 mg capsule Take 600 mg by mouth twice daily. MV with Lve-Ntnfvdwi-Lymffu (CENTRUM SILVER) 0.4 mg-300 mcg- 250 mcg tab Take by mouth. (Patient not taking: Reported on 03/16/2022) insulin 75/25 lispro protamine/lispro units/mL (HUMALOG MIX 75-25,U-100,INSULN) 100 units/mL susp as directed. HYDROcodone-acetaminophen (NORCO) 5-325 mg per tablet hydrocodone 5 mg-acetaminophen 325 mg tablet TAKE 1 TO 2 TABLETS BY MOUTH EVERY DAY AT BEDTIME NEEDED fuedblls-ntj-oofj-FA-lutein (CENTRUM SILVER WOMEN) 8 mg iron-400 mcg-300 mcg tab furosemide (LASIX) 40 mg tablet furosemide 40 mg tablet TAKE 1 AND 1/2 TABLETS BY MOUTH DAILY clopidogrel (PLAVIX) 75 mg tablet clopidogrel 75 mg tablet TAKE 1 TABLET BY MOUTH EVERY DAY metoprolol succinate ER (TOPROL XL) 25 mg 24 hr tablet metoprolol succinate ER 25 mg tablet,extended release 24 hr TAKE 1 TABLET BY MOUTH DAILY (ALONG WITH THE 50MG TABLET FOR 75 MG TOTAL DAILY) metoprolol succinate ER (TOPROL XL) 50 mg 24 hr tablet metoprolol succinate ER 50 mg tablet,extended release 24 hr (more content not included)... [facility] 06-15-2023 History of Presen t illness Narrative VIRTUAL VISIT PROGRESS NOTE This is a virtual visit using [employer] Video Visit. It required patient-provider interaction for the medical decision making as documented below. I have communicated my name and active licensure. The patient's identity and physical location were verified at the time of this visit. Either the patient or their legal operations representative has been informed of the risks and benefits of -- and alternatives to -- treatment through a remote evaluation and consents to proceed with the evaluation remotely. Persons Present: patient Chief Complaint/Reason: renal mass Clinic note from 10/15/2022 copied and updated. HPI: Elmer Ellis is a 57 year old female with right renal mass who presents for follow up. Initially discovered in 05/2021 upon work up for gastritis. Last seen via virtual visit 10/15/22. Encouraged weight loss and smoking cessation. Plan for continued surveillance of mass with CT kidney in [address] KIDNEY WO/W IVCON 05/17/2023 IMPRESSION: 1. Since 10/07/2022, continued mild increase in size of a 3.7 cm right renal neoplasm (previously 3.4 cm). 2. Patent renal veins and inferior vena cava. No abdominal metastatic disease. Interval Hx: I measured R renal mass Past Surgical History: Open cholecystectomy (1984), MAURICE/BSO for endometriosis (1991), spinal surgery, knee surgery Past Medical History: DMII, Factor V Leiden with provoked DVT after knee surgery (2017), CAD, PAD; HLD, morbid obesity Radiation History: none Anticoagulation: Xarelto, plavix Social History: current smoker (I PPD x >30 years) ; no ETOH or drug use, disabled Family History: Sister x2 - Lung Cancer; she recently discovered maternal aunt and maternal had kidney cancer - both had nephrectomy Data Reviewed: Most recent labs and imaging results. Labs: Creatinine Date Value Ref Range Status 05/17/2023 1.19 (H) 0.58 - 0.96 mg/dL Final 10/07/2022 1.06 (H) 0.58 - 0.96 mg/dL Final 04/05/2022 0.91 0.58 - 0.96 mg/dL Final Creatinine 02/01/2022- 1.00 mg/dL 06/15/2021- 1.01 mg/dL 04/28/2021- 0.82 mg/dL Imaging: CT KIDNEY WO/W IVCON 10/07/2022 IMPRESSION: 3.3 cm RIGHT upper pole renal neoplasm minimally increased from 3.0 cm the May 2021 study. No advanced disease; no lymphadenopathy, renal vein involvement or adrenal involvement. CT KIDNEY WO/W IVCON 04/05/2022 IMPRESSION: 1. A 3.3 cm heterogeneously enhancing mass within the medial right renal upper pole is unchanged since 02/01/2022, and remains compatible with a solid renal neoplasm. 2. There is unchanged abutment of the right renal hilar vasculature by the aforementioned right renal mass. The right renal vein and inferior vena cava are patent. 3. No evidence of metastatic disease within the abdomen. CT ABD/PEL: 02/02/2022 1. Heterogeneous, enhancing right renal mass which continues to increase increased slowly in size, now maximum 2.9 cm in diameter, favoring renal cell carcinoma. 2. No evidence of metastatic disease. 3. Marked degenerative disc disease L5-S1. HISTORY REVIEWED (electronic chart updated): No past medical history on file. No past surgical history on file. No family history on file. Social History Tobacco Use Smoking status: Every Day Types: Cigarettes Smokeless tobacco: Never Substance Use Topics Alcohol use: Not Currently Drug use: Yes Types: Marijuana Current Outpatient Medications Medication Sig DULoxetine (CYMBALTA) 60 mg capsule duloxetine 60 mg capsule,delayed release TAKE 1 CAPSULE BY MOUTH EVERY DAY atorvastatin (LIPITOR) 80 mg tablet Take 80 mg by mouth once daily. fexofenadine (LUZ) 180 mg tablet fexofenadine 180 mg tablet TAKE 1 TABLET BY MOUTH EVERY DAY gabapentin (NEURONTIN) 300 mg capsule Take 600 mg by mouth twice daily. MV with Cxv-Elwnwvry-Dtjuay (CENTRUM SILVER) 0.4 mg-300 mcg- 250 mcg tab Take by mouth. (Patient not taking: Reported on 03/16/2022) insulin 75/25 lispro protamine/lispro units/mL (HUMALOG MIX 75-25,U-100,INSULN) 100 units/mL susp as directed. HYDROcodone-acetaminophen (NORCO) 5-325 mg per tablet hydrocodone 5 mg-acetaminophen 325 mg tablet TAKE 1 TO 2 TABLETS BY MOUTH EVERY DAY AT BEDTIME NEEDED rbyrrcza-qql-heha-FA-lutein (CENTRUM SILVER WOMEN) 8 mg iron-400 mcg-300 mcg tab furosemide (LASIX) 40 mg tablet furosemide 40 mg tablet TAKE 1 AND 1/2 TABLETS BY MOUTH DAILY clopidogrel (PLAVIX) 75 mg tablet clopidogrel 75 mg tablet TAKE 1 TABLET BY MOUTH EVERY DAY metoprolol succinate ER (TOPROL XL) 25 mg 24 hr tablet metoprolol succinate ER 25 mg tablet,extended release 24 hr TAKE 1 TABLET BY MOUTH DAILY (ALONG WITH THE 50MG TABLET FOR 75 MG TOTAL DAILY) metoprolol succinate ER (TOPROL XL) 50 mg 24 hr tablet metoprolol succinate ER 50 mg tablet,extended release 24 hr TAKE 1 TABLET BY MOUTH EVERY DAY rivaroxaban (XARELTO) 10 mg tablet Xarelto 10 mg tablet metFORMIN (GLUCOPHAGE) 1,000 mg tablet Take 1,000 mg by mouth twice daily. cholecalciferol (VITAMIN D3) 5,000 unit tab Vitamin D3 Refills(s) 0 Start Date: 07/27/21 Status: Ordered (Patient not taking: Reported on 03/16/2022) HYDROcodone-Acetaminophen 5-300 mg tab Take 1 tablet by mouth every 8 hours as needed for pain. methocarbamol (ROBAXIN) 500 mg tablet Take 500 mg by mouth four times daily. esomeprazole mag/glycerin (ESOMEP-EZS ORAL) Take by mouth. No current facility-administered medications for this visit. ALLERGIES No Known Allergies REVIEW OF SYSTEMS: GENERAL: feeling well without fatigue, no recent change in weight PHYSICAL EXAMINATION: VIDEO EXAM: (if completed, performed via video enabled technology) No exam performed ASSESSMENT: R renal mass essentially unchanged by my measurement in 14 mths. Still 3.5cm. Pt. with mult comorbididties PLAN: Cont. A.S. with CT abd with IV contrast in 9 months There are no Patient Instructions on file for this visit. I spent a total of 20 minutes on the date of the service which included preparing to see the patient, [id number] patient care, and counseling and educating the patient/family/caregiver Lex Pickens MD documented in this encounter [facility] 05-17-2023 Note HNO ID: [id number] Author: FRANCO LACY RT(R) Service: Radiology Author Type: Technologist Type: Progress Notes Filed: 05/17/2023 14:00 Note Text: Radiology Service Progress Note PATIENT NAME: Elmer Ellis DATE OF SERVICE: May 17, 2023 TIME: 2:00 PM PATIENT IDENTITY VERIFICATION COMPLETED USING TWO (2) IDENTIFIERS: Name and Date of confirmed by patient verbally. FALL SCREENING: Has the patient had 2 falls in the last year or 1 fall with injury or currently using an Ambulatory Assistive Device (Walker, Cane, Wheelchair, Crutches, etc.)? No PATIENT GENDER DATA: Female. status: : No status: NO. PATIENT RELEVANT IMPLANT DATA REVIEWED: Not Applicable PATIENT PRESENTS WITH AN IMPLANTABLE OR ATTACHED WOOD FLOOR REFINISHER: No RADIOLOGY DEPARTMENT: CT; Exam(s) Completed: Kidney PERIPHERAL IV DATA: Site assessment: Clean,Dry and Intact, Site disposition Discontinued 20g right forearm SIGNED BY: RT José Miguel(R) May 17, 2023 2:00 PM [facility] 05-17-2023 Note HNO ID: [id number] Author: JOI GREENE RN Service: ? Author Type: Registered Nurse Type: Progress Notes Filed: 05/17/2023 14:04 Note Text: Radiology Service Progress Note DATE OF SERVICE: May 17, 2023 TIME: 2:02 PM PATIENT WEIGHT: 266LBS PATIENT IDENTITY VERIFICATION COMPLETED USING TWO (2) STANDARD IDENTIFIERS: Name and Date of confirmed by patient verbally. FALL SCREENING: Has the patient had 2 falls in the last year or 1 fall with injury or currently using an Ambulatory Assistive Device (Walker, Cane, Wheelchair, Crutches, etc.)? No PATIENT GENDER DATA: Female. status: : No status: NO. ALLERGIES: Reviewed and unchanged CONTRAST ALLERGY: No EXAM: CT -CONTRAST INDUCED NEPHROPATHY RISK FACTORS: Not applicable CREATININE: Creatinine Date Value Ref Range Status 05/17/2023 1.19 (H) 0.58 - 0.96 mg/dL Final 10/07/2022 1.06 (H) 0.58 - 0.96 mg/dL Final 04/05/2022 0.91 0.58 - 0.96 mg/dL Final Estimated Glomerular Filtration Rate Date Value Ref Range Status 05/17/2023 53 (L) >=60 mL/min/1.73m? Final Comment: Estimated Glomerular Filtration Rate (eGFR) is calculated using the 2020 CKD-EPI creatinine equation. This equation utilizes serum creatinine, sex, and age as parameters. The creatinine assay has traceable calibration to isotope dilution-mass spectrometry. Refer to KDIGO guidelines for clinical interpretation. In patients with unstable renal function, e.g. those with acute kidney injury, the eGFR may not accurately reflect actual GFR. P.O.C.T. RESULTS: POC done: Yes, See Lab Tab May 17, 2023 TREATMENT: No Hydration needed. IV SITE: Ambulatory: A peripheral IV was started in the Right forearm with a Angio cath: 20 gauge. IV SITE APPEARANCE: Clean,Dry and Intact SIGNATURE: Joi Greene RN PATIENT NAME: Elmer Ellis DATE: May 17, 2023 TIME: 2:02 PM [facility] 04-28-2023 Miscellaneous Notes Please sign pended Cre for upcoming CT. Pt needs updated lab before CT can be done Thank You! Josie Leong RN documented in this encounter [facility] 03-24-2023 History of Presen t illness Narrative Associated Problem(s): Encounter for annual wellness visit (AWV) in Medicare patient Reviewed Ht/Wt/BMI Recommend eye exam yearly Recommend dental exams twice a year Balance work/leisure activities Exercises is recommended most days of the week (appropriate as chronic conditions allow) Follow up yearly and prn Associated Problem(s): Type 2 diabetes mellitus with insulin therapy ([facility]) Check blood sugars daily, notify if <70 or >200. Take medications (pills or insulin) as directed. Monitor for s/s of hypoglycemia (sweaty, dizziness, nausea, vomiting, or shakiness). Watch for increase in thirst, urination, or appetite. Inspect feet frequently monitoring for open wounds , and also recommend yearly eye exam. Pt should attempt to remain as physically active as chronic conditions allow, as well as trying to follow a diet low in carbohydrates, and simple sugars. Check A1c test later in March Associated Problem(s): Cancer of kidney ([facility]) Continue with specialty for monitoring Associated Problem(s): CAD in [place] artery ([facility]) No acute angina symptoms Cont current meds Goal: control BP, diabetes, lipids, and QUIT smoking Associated Problem(s): Tobacco user Recommend quitting, pt declines Refill Pletal and plavix Images from the original note were not included. Elmer Ellis is a 57 y.o. female presents with chief complaint of No chief complaint on file. HPI: Diabetes She presents for her follow-up diabetic visit. She has type 2 diabetes mellitus. Onset time: years. Her disease course has been stable. Hypoglycemia symptoms include dizziness. Pertinent negatives for hypoglycemia include no headaches, nervousness/anxiousness, seizures or tremors. Associated symptoms include foot paresthesias. Pertinent negatives for diabetes include no chest pain, no fatigue, no polydipsia, no polyphagia, no polyuria and no visual change. There are no hypoglycemic complications. Symptoms are stable. Diabetic complications include heart disease and peripheral neuropathy. Risk factors for coronary artery disease include diabetes mellitus, dyslipidemia, obesity, hypertension, sedentary lifestyle and tobacco exposure. Current diabetic treatment includes oral agent (dual therapy) and insulin injections. She is compliant with treatment all of the time. Her weight is stable. When asked about meal planning, she reported none. She has not had a previous visit with a dietitian. She rarely participates in exercise. Her overall blood glucose range is 180-200 mg/dl. An ROXANNE inhibitor/angiotensin II receptor zhao is being taken. She does not see a hi low truck driver.Eye exam is current. Hypertension This is a chronic problem. The current episode started more than 1 year ago. The problem is unchanged. The problem is controlled. Pertinent negatives include no chest pain, headaches, palpitations or shortness of breath. There are no associated agents to hypertension. Risk factors for coronary artery disease include dyslipidemia, diabetes mellitus, obesity, sedentary lifestyle and smoking/tobacco exposure. Past treatments include diuretics and beta blockers. The current treatment provides significant improvement. SUBJECTIVE: MEDICATIONS: Current Outpatient Medications Medication Instructions ASPIRIN 81 MG chewable tablet Aspir-81 atorvastatin (Lipitor) 80 MG tablet 1 tablet Orally at bedtime B-D UF III MINI PEN NEEDLES 31G X 5 MM mis USE TWICE DAILY cilostazol (Pletal) 100 MG tablet TAKE 1 TABLET BY MOUTH TWICE A DAY DIRECTED Oral for 90 clopidogrel (Plavix) 75 MG tablet Every 24 hours Continuous Blood Gluc Sensor (FreeStyle Joelle 2 Sensor) [facility] USE TO TEST BLOOD SUGAR 4 TIMES DAILY dapagliflozin (FARXIGA) 10 mg, Oral, Daily Diclofenac 18 MG capsule Diclofenac DULoxetine (CYMBALTA) 60 mg, Oral, Daily DULoxetine (CYMBALTA) 30 mg, Oral, Daily, Total dose is 90mg daily ferrous sulfate 325 (65 Fe) MG tablet Every 24 hours furosemide (Lasix) 40 MG tablet Every 24 hours gabapentin (NEURONTIN) 800 mg, Oral, Every 8 hours Insulin Aspart Prot & Aspart (NOVOLOG 70/30 FLEXPEN RELION SC) 75 Units, Subcutaneous, 2 times daily metoprolol succinate XL (Toprol-XL) 50 MG 24 hr tablet Every 24 hours metoprolol succinate XL (TOPROL-XL) 25 mg, Oral, Every morning Multiple Vitamins-Minerals (Centrum Silver 50+Women) tablet Orally pantoprazole (ProtoNix) 40 MG EC tablet Every 24 hours rivaroxaban (Xarelto) 10 MG tablet Every 24 hours ALLERGIES: No Known Allergies REVIEW OF SYMPTOMS: Review of Systems Constitutional: Negative for appetite change, chills, fatigue and fever. HENT: Negative for congestion, ear pain and sore throat. Eyes: Negative for pain, discharge, redness and visual disturbance. Respiratory: Positive for cough and wheezing. Negative for shortness of breath. Cardiovascular: Negative for chest pain, palpitations and leg swelling. Gastrointestinal: Negative for abdominal pain, blood in stool, constipation, diarrhea, nausea and vomiting. Genitourinary: Negative for difficulty urinating, dysuria and frequency. Musculoskeletal: Positive for arthralgias. Negative for back pain, joint swelling and myalgias. Skin: Negative for rash and wound. Neurological: Positive for dizziness. Negative for tremors, seizures, syncope and headaches. Psychiatric/Behavioral: Negative for behavioral problems, self-injury and suicidal ideas. The patient is not nervous/anxious. Hematological: Does not bruise/bleed easily. Endocrine: Negative for polydipsia, polyphagia and polyuria. Allergic/Immunologic: Negative for environmental allergies and food allergies. 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 ([facility]) Diabetic neuropathy, painful ([facility]) Factor V Leiden ([facility]) Factor 5 Leiden deficiency Family history of cancer High cholesterol ([facility]) History of DVT (deep vein thrombosis) history of DVT no PE History of kidney cancer History of pancreatitis History of pneumonia History of varicose veins Intermittent claudication ([facility]) Kidney problem spot on kidney Mucopurulent chronic bronchitis ([facility]) Neuropathy ELENA (obstructive sleep apnea) Osteoporosis ([facility]) Pneumonia Sinusitis Tobacco user Type 2 diabetes mellitus with insulin therapy ([facility]) 03/24/2023 Past Surgical History: Procedure Laterality Date APPENDECTOMY BACK SURGERY 2016 x3 BACK SURGERY 2018 laser BACK SURGERY 2019 CHOLECYSTECTOMY 1985 COLONOSCOPY 06/02/2022 /egd HEART CATH HYSTERECTOMY 1992 KNEE SURGERY Left 08/17/2017 medial meniscectomy and chondromal[address] cummins LEG SURGERY Right 04/2020 stent MR ANGIOGRAM HEAD WO IV CONTRAST 07/29/2020 MR ANGIOGRAM HEAD WO IV CONTRAST family history includes Cancer in her sibling; Diabetes in her father, maternal grandmother, mother, paternal grandmother, and sibling; Family HX of lung cancer in an other family member; Heart disease in her maternal grandmother, paternal grandfather, and paternal grandmother; Hypertension in her father and mother; Stroke in her father and maternal grandfather. OBJECTIVE: Visit Vitals BP 112/70 (BP Location: Right arm, Patient Position: Sitting, BP Cuff Size: Adult) Pulse 76 Temp 97.1 F (Temporal) Resp 20 Ht 5' 4 Wt 267 lb 9.6 oz SpO2 97% BMI 45.93 kg/m Smoking Status Every Day BSA 2.34 m Physical Exam Vitals reviewed. Constitutional: General: She is not in acute distress. Appearance: Normal appearance. HENT: Head: Normocephalic and atraumatic. Right Ear: External ear normal. Left Ear: External ear normal. Nose: Nose normal. Mouth/Throat: Mouth: Mucous membranes are moist. Eyes: Extraocular Movements: Extraocular movements intact. Conjunctiva/sclera: Conjunctivae normal. Neck: Vascular: No carotid bruit. Cardiovascular: Rate and Rhythm: Normal rate and regular rhythm. Pulses: Normal pulses. Heart sounds: Normal heart sounds. Pulmonary: Effort: Pulmonary effort is normal. Breath sounds: Wheezing and rhonchi present. Comments: Clears with cough, moist cough Abdominal: General: Bowel sounds are normal. There is no distension. Palpations: Abdomen is soft. There is no mass. Tenderness: There is no abdominal tenderness. Musculoskeletal: General: Normal range of motion. Cervical back: Neck supple. Lymphadenopathy: Cervical: No cervical adenopathy. Skin: General: Skin is warm and dry. Capillary Refill: Capillary refill takes 2 to 3 seconds. Findings: No rash. Neurological: General: No focal deficit present. Mental Status: She is alert and oriented to person, place, and time. Psychiatric: Mood and Affect: Mood normal. Behavior: Behavior normal. Thought Content: Thought content normal. Judgment: Judgment normal. ASSESSMENT AND PLAN: No follow-ups on file. Problem List Items Addressed This Visit CAD in [place] artery ([facility]) No acute angina symptoms Cont current meds Goal: control BP, diabetes, lipids, and QUIT smoking Tobacco user Recommend quitting, pt declines Cancer of kidney ([facility]) Continue with specialty for monitoring Type 2 diabetes mellitus with diabetic neuropathy, with long-term current use of insulin ([facility]) Relevant Orders Hemoglobin A1c Type 2 diabetes mellitus with insulin therapy ([facility]) Check blood sugars daily, notify if <70 or >200. Take medications (pills or insulin) as directed. Monitor for s/s of hypoglycemia (sweaty, dizziness, nausea, vomiting, or shakiness). Watch for increase in thirst, urination, or appetite. Inspect feet frequently monitoring for open wounds , and also recommend yearly eye exam. Pt should attempt to remain as physically active as chronic conditions allow, as well as trying to follow a diet low in carbohydrates, and simple sugars. Check A1c test later in March Encounter for annual wellness visit (AWV) in Medicare patient - Primary Reviewed Ht/Wt/BMI Recommend eye exam yearly Recommend dental exams twice a year Balance work/leisure activities Exercises is recommended most days of the week (appropriate as chronic conditions allow) Follow up yearly and prn Images from the original note were not included. Subjective : Chief Complaint: Elmer Ellis is an 57 y.o. female here for an annual wellness visit. I have reviewed and reconciled the medication list with the patient today. Current Outpatient Medications Medication Sig Dispense Refill atorvastatin (Lipitor) 80 MG tablet 1 tablet Orally at bedtime B-D UF III MINI PEN NEEDLES 31G X 5 MM misc USE TWICE DAILY cilostazol (Pletal) 100 MG tablet TAKE 1 TABLET BY MOUTH TWICE A DAY DIRECTED Oral for 90 clopidogrel (Plavix) 75 MG tablet 1 (one) time each day at the same time. Continuous Blood Gluc Sensor (FreeStyle Joelle 2 Sensor) mis USE TO TEST BLOOD SUGAR 4 TIMES DAILY dapagliflozin (Farxiga) 10 MG Take 1 tablet (10 mg) by mouth in the morning. 30 tablet 2 Diclofenac 18 MG capsule Diclofenac DULoxetine (Cymbalta) [address] capsule Take 1 capsule (30 mg) by mouth in the morning. Total dose is 90mg daily. 90 capsule 1 DULoxetine (Cymbalta) [address] capsule Take 1 capsule (60 mg) by mouth in the morning. 90 capsule 1 ferrous sulfate 325 (65 Fe) MG tablet 1 (one) time each day at the same time. furosemide (Lasix) 40 MG tablet 1 (one) time each day at the same time. gabapentin (Neurontin) 800 MG tablet Take 1 tablet (800 mg) by mouth every 8 (eight) hours 270 tablet 1 Insulin Aspart Prot & Aspart (NOVOLOG 70/30 FLEXPEN RELION SC) Inject 75 Units under the skin in the morning and 75 Units before bedtime. metoprolol succinate XL (Toprol-XL) 25 MG 24 hr tablet Take 25 mg by mouth in the morning. metoprolol succinate XL (Toprol-XL) 50 MG 24 hr tablet 1 (one) time each day at the same time. pantoprazole (ProtoNix) 40 MG EC tablet 1 (one) time each day at the same time. rivaroxaban (Xarelto) 10 MG tablet 1 (one) time each day at the same time. ASPIRIN 81 MG chewable tablet Aspir-81 Multiple Vitamins-Minerals (Centrum Silver 50+Women) tablet Orally No current facility-administered medications for this visit. Review of Systems Constitutional: Negative for appetite change, chills and fever. HENT: Negative for congestion, ear pain and sore throat. Eyes: Negative for pain, discharge, redness and visual disturbance. Respiratory: Positive for cough, shortness of breath and wheezing. Cardiovascular: Negative for chest pain, palpitations and leg swelling. Gastrointestinal: Negative for abdominal pain, blood in stool, constipation, diarrhea, nausea and vomiting. Genitourinary: Negative for difficulty urinating, dysuria and frequency. Musculoskeletal: Positive for arthralgias. Negative for back pain, joint swelling and myalgias. Skin: Negative for rash and wound. Neurological: Negative for dizziness, tremors, seizures, syncope and headaches. Psychiatric/Behavioral: Negative for behavioral problems, self-injury and suicidal ideas. The patient is not nervous/anxious. Hematological: Does not bruise/bleed easily. Endocrine: Negative for polydipsia, polyphagia and polyuria. Allergic/Immunologic: Negative for environmental allergies and food allergies. List of current healthcare providers: Patient Care Team: Ludin Blanchard MD as PCP - General (Family Medicine) Jenny Borrego NP as Nurse Practitioner (Family Medicine) Medicare Annual Visit Over the past 2 weeks, how often have you been bothered by any of the following problems? Little interest or pleasure in doing things: Several days Feeling down, depressed, or hopeless: Several days Patient Health Questionnaire-2 Score: 2 Over the past 2 weeks, how often have you been bothered by any of the following problems? Trouble falling or staying asleep, or sleeping too much: Several days Feeling tired or having little energy: Several days Poor appetite or overeating: Not at all Feeling bad about yourself - or that you are a failure or have let yourself or your family down: Not at all Trouble concentrating on things, such as reading the newspaper or watching television: Not at all Moving or speaking so slowly that other people could have noticed? Or the opposite - being so fidgety or restless that you have been moving around a lot more than usual.: Not at all Thoughts that you would be better off or hurting yourself in some way: Not at all Patient Health Questionnaire-9 Score: 4 Chavez Fall Risk History of Falling, Immediate or Within 3 Months: Yes Secondary Diagnosis: Yes Ambulatory Aid: Walks without aid/bedrest/nurse assist Intravenous Therapy/Heparin Lock: No Gait/Transferring: Normal/bedrest/immobile Mental Status: Oriented to own ability Chavez Fall Risk Score: 40 Health Risk Assessment Form Do you need help eating, bathing, using the toilet, dressing, or getting around your home?: No Can you prepare your own meals?: No Can you do your own housework without help?: No Can you shop for groceries or clothes without help?: No Do you exercise for about 20 minutes 3 or more days a week?: No How confident are you that you can control and manage most of your health problems?: Very confident Can you mange your money, credit cards and accounts, pay bills and taxes?: Yes Vision Screening: Yes, 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 Hearing Screening: Not done Cognitive Screening Self Assessment: No overt cognitive deficiency is apparent by direct observation Three Word Registration: Delmar Mays, Chair Clock Drawing: Normal Clock - 2 Three Word Recall: All 3 words correct - 3 Pain Assessment Pain Score: 0 - No pain Advance Care Planning Do you have a living will?: No Do you have a medical power of commonwealth attorney?: No Objective : BP 112/70 (BP Location: Right arm, Patient Position: Sitting, BP Cuff Size: Adult) Pulse 76 Temp 97.1 F (Temporal) Resp 20 Ht 5' 4 Wt 267 lb 9.6 oz SpO2 97% BMI 45.93 kg/m No results found. Physical Exam Constitutional: General: She is not in acute distress. Appearance: Normal appearance. HENT: Head: Normocephalic and atraumatic. Right Ear: External ear normal. Left Ear: External ear normal. Nose: Nose normal. Mouth/Throat: Mouth: Mucous membranes are moist. Eyes: Extraocular Movements: Extraocular movements intact. Conjunctiva/sclera: Conjunctivae normal. Neck: Vascular: No carotid bruit. Cardiovascular: Rate and Rhythm: Normal rate and regular rhythm. Pulses: Normal pulses. Heart sounds: Normal heart sounds. Pulmonary: Effort: Pulmonary effort is normal. Breath sounds: Wheezing and rhonchi present. Comments: Clears with cough, moist cough Abdominal: General: Bowel sounds are normal. There is no distension. Palpations: Abdomen is soft. There is no mass. Tenderness: There is no abdominal tenderness. Musculoskeletal: General: Normal range of motion. Cervical back: Normal range of motion and neck supple. Lymphadenopathy: Cervical: No cervical adenopathy. Skin: General: Skin is warm and dry. Capillary Refill: Capillary refill takes 2 to 3 seconds. Findings: No rash. Neurological: General: No focal deficit present. Mental Status: She is alert and oriented to person, place, and time. Psychiatric: Mood and Affect: Mood normal. Behavior: Behavior normal. Thought Content: Thought content normal. Judgment: Judgment normal. Assessment/Plan : The following health maintenance schedule was reviewed with the patient and provided in printed form in the after visit summary: Health Maintenance Topic Date Due Diabetes: Hemoglobin A1C 04/12/2023 Diabetes: Urine Protein Screening 09/28/2023 Diabetes: Retinopathy Screening 10/20/2023 Mammogram 11/20/2023 Medicare Annual Wellness (AWV) 03/24/2024 Colorectal Cancer Screening 06/02/2032 Influenza Vaccine Completed Cervical Cancer Screening Discontinued Advance Care Planning N/A Orders Placed This Encounter Procedures Hemoglobin A1c Standing Status: Future Standing Expiration Date: 03/24/2024 Order Specific Question: Print requisition? Answer: No Electronically signed by Jenny Borrego NP on March 24, 2023 documented in this encounter [facility] 10-15-2022 Note Patient Outreach (UR OLMN) ELMER ELLIS ([id number]) 1965 F Date Time Provider Department 10/15/22 LEX PICKENS During your visit today, we recorded the following information about you: Allergies As of Date: 10/15/2022 (No Known Allergies) Date Reviewed: 10/15/2022 Reviewed by: Angie Mcclellan APRN.WIG COMBER - Fully Assessed Visit Diagnosis:Screening for genitourinary condition [Z13.89] Order(s):URINALYSIS, REFLEX MICROSCOPIC [[id number]] Order #: [id number] Prescriptions as of 10/18/2022 - DULoxetine (CYMBALTA) 60 mg capsule duloxetine 60 mg capsule,delayed release TAKE 1 CAPSULE BY MOUTH EVERY DAY - atorvastatin (LIPITOR) 80 mg tablet Take 80 mg by mouth once daily. - fexofenadine (LUZ) 180 mg tablet fexofenadine 180 mg tablet TAKE 1 TABLET BY MOUTH EVERY DAY - gabapentin (NEURONTIN) 300 mg capsule Take 600 mg by mouth twice daily. - MV with Eiz-Qwttwwii-Wtwbpn (CENTRUM SILVER) 0.4 mg-300 mcg- 250 mcg tab Take by mouth. - insulin 75/25 lispro protamine/lispro units/mL (HUMALOG MIX 75-25,U-100,INSULN) 100 units/mL susp as directed. - HYDROcodone-acetaminophen (NORCO) 5-325 mg per tablet hydrocodone 5 mg-acetaminophen 325 mg tablet TAKE 1 TO 2 TABLETS BY MOUTH EVERY DAY AT BEDTIME NEEDED - wsvglthp-nly-kywr-FA-lutein (CENTRUM SILVER WOMEN) 8 mg iron-400 mcg-300 mcg tab - furosemide (LASIX) 40 mg tablet furosemide 40 mg tablet TAKE 1 AND 1/2 TABLETS BY MOUTH DAILY - clopidogrel (PLAVIX) 75 mg tablet clopidogrel 75 mg tablet TAKE 1 TABLET BY MOUTH EVERY DAY - metoprolol succinate ER (TOPROL XL) 25 mg 24 hr tablet metoprolol succinate ER 25 mg tablet,extended release 24 hr TAKE 1 TABLET BY MOUTH DAILY (ALONG WITH THE 50MG TABLET FOR 75 MG TOTAL DAILY) - metoprolol succinate ER (TOPROL XL) 50 mg 24 hr tablet metoprolol succinate ER 50 mg tablet,extended release 24 hr TAKE 1 TABLET BY MOUTH EVERY DAY - rivaroxaban (XARELTO) 10 mg tablet Xarelto 10 mg tablet - metFORMIN (GLUCOPHAGE) 1,000 mg tablet Take 1,000 mg by mouth twice daily. - cholecalciferol (VITAMIN D3) 5,000 unit tab Vitamin D3 Refills(s) 0 Start Date: 07/27/21 Status: Ordered - HYDROcodone-Acetaminophen 5-300 mg tab Take 1 tablet by mouth every 8 hours as needed for pain. - methocarbamol (ROBAXIN) 500 mg tablet Take 500 mg by mouth four times daily. - esomeprazole mag/glycerin (ESOMEP-EZS ORAL) Take by mouth. Problem List As Of Date 10/15/2022 Noted Resolved Renal mass [N28.89] 04/19/2022 Renal mass, right [N28.89] 04/19/2022 Factor V Leiden (HCC) [D68.51] 04/19/2022 Coronary artery disease involving [place] [facility] *04/19/2022 Smoker [F17.200] 04/19/2022 Morbid obesity (HCC) [E66.01] 04/19/2022 Other specified disorders of kidney and ureter *04/19/2022 Encounter Status:Closed by DAWNA ROSADO on 10/18/22 [facility] 10-15-2022 Note HNO ID: [id number] Author: Angie Mcclellan APRN.CARLO Service: ? Author Type: Nurse Practitioner Type: Progress Notes Filed: 10/16/2022 9:14 AM Note Text: VIRTUAL VISIT PROGRESS NOTE This is a virtual visit using Properati video visit. It required patient-provider interaction for the medical decision making as documented below. I have communicated my name and active licensure. The patient's identity and physical location were verified at the time of this visit. Either the patient or their legal operations representative has been informed of the risks and benefits of -- and alternatives to -- treatment through a remote evaluation and consents to proceed with the evaluation remotely. Persons Present: patient Chief Complaint/Reason: follow up Clinic note from 03/16/2022 copied and updated. HPI: Elmer Ellis is a 56 year old female with right renal mass who presents for follow up. Initially discovered in 05/2021 upon work up for gastritis. Mass measures 3.2cm x 3.0cm x 3.2cm on CT 02/01/22. It is located upper pole at the hilar lip. Posterior. Last seen via telephone visit 04/09/22. Given minimal growth, plan to continue with CT kidney in [address] KIDNEY WO/W IVCON 10/07/2022 IMPRESSION: 3.3 cm RIGHT upper pole renal neoplasm minimally increased from 3.0 cm the May 2021 study. No advanced disease; no lymphadenopathy, renal vein involvement or adrenal involvement. Interval Hx: Overall, doing well. Had GI bleed in 05/2031- had endoscopy and colonoscopy, unable to find bleed per patient. She states she was given IV iron and stopped her Plavix. She states her Hgb has been trending upward and is now taking daily Iron. SOB on exertion has improved since Hgb has risen. Taking daily Xarelto (10 mg at night). No flank pain or hematuria. No unintentional weight loss- has intentionally lost 7 lbs since last OV. Still smoking cigarettes- 1 PPD. Past Surgical History: Open cholecystectomy (1984), MAURICE/BSO for endometriosis (1991), spinal surgery, knee surgery Past Medical History: DMII, Factor V Leiden with provoked DVT after knee surgery (2016), CAD, PAD; HLD, morbid obesity Radiation History: none Anticoagulation: Xarelto, plavix Social History: current smoker (I PPD x >30 years) ; no ETOH or drug use, disabled Family History: Sister x2 - Lung Cancer; she recently discovered maternal aunt and maternal had kidney cancer - both had nephrectomy Data Reviewed: Most recent labs and imaging results. Labs: Creatinine Date Value Ref Range Status 10/07/2022 1.06 (H) 0.58 - 0.96 mg/dL Final 04/05/2022 0.91 0.58 - 0.96 mg/dL Final Creatinine 02/01/2022- 1.00 mg/dL 06/15/2021- 1.01 mg/dL 04/28/2021- 0.82 mg/dL Imaging: CT KIDNEY WO/W IVCON 04/05/2022 IMPRESSION: 1. A 3.3 cm heterogeneously enhancing mass within the medial right renal upper pole is unchanged since 02/01/2022, and remains compatible with a solid renal neoplasm. 2. There is unchanged abutment of the right renal hilar vasculature by the aforementioned right renal mass. The right renal vein and inferior vena cava are patent. 3. No evidence of metastatic disease within the abdomen. CT ABD/PEL: 02/02/2022 1. Heterogeneous, enhancing right renal mass which continues to increase increased slowly in size, now maximum 2.9 cm in diameter, favoring renal cell carcinoma. 2. No evidence of metastatic disease. 3. Marked degenerative disc disease L5-S1. HISTORY REVIEWED (electronic chart updated): No past medical history on file. No past surgical history on file. No family history on file. Social History Tobacco Use Smoking status: Every Day Types: Cigarettes Smokeless tobacco: Never Substance Use Topics Alcohol use: Not Currently Drug use: Yes Types: Marijuana Current Outpatient Medications Medication Sig DULoxetine (CYMBALTA) 60 mg capsule duloxetine 60 mg capsule,delayed release TAKE 1 CAPSULE BY MOUTH EVERY DAY atorvastatin (LIPITOR) 80 mg tablet Take 80 mg by mouth once daily. fexofenadine (LUZ) 180 mg tablet fexofenadine 180 mg tablet TAKE 1 TABLET BY MOUTH EVERY DAY gabapentin (NEURONTIN) 300 mg capsule Take 600 mg by mouth twice daily. MV with Kex-Qmgrivzi-Ilplyx (CENTRUM SILVER) 0.4 mg-300 mcg- 250 mcg tab Take by mouth. (Patient not taking: Reported on 03/16/2022) insulin 75/25 lispro protamine/lispro units/mL (HUMALOG MIX 75-25,U-100,INSULN) 100 units/mL susp as directed. HYDROcodone-acetaminophen (NORCO) 5-325 mg per tablet hydrocodone 5 mg-acetaminophen 325 mg tablet TAKE 1 TO 2 TABLETS BY MOUTH EVERY DAY AT BEDTIME NEEDED pwlkqsjo-voe-jvav-FA-lutein (CENTRUM SILVER WOMEN) 8 mg iron-400 mcg-300 mcg tab furosemide (LASIX) 40 mg tablet furosemide 40 mg tablet TAKE 1 AND 1/2 TABLETS BY MOUTH DAILY clopidogrel (PLAVIX) 75 mg tablet clopidogrel 75 mg tablet TAKE 1 TABLET BY MOUTH EVERY DAY metoprolol succinate ER (TOPROL XL) 25 mg 24 hr tablet met (more content not included)... [facility] 10-15-2022 History of Presen t illness Narrative VIRTUAL VISIT PROGRESS NOTE This is a virtual visit using Properati video visit. It required patient-provider interaction for the medical decision making as documented below. I have communicated my name and active licensure. The patient's identity and physical location were verified at the time of this visit. Either the patient or their legal operations representative has been informed of the risks and benefits of -- and alternatives to -- treatment through a remote evaluation and consents to proceed with the evaluation remotely. Persons Present: patient Chief Complaint/Reason: follow up Clinic note from 03/16/2022 copied and updated. HPI: Elmer Ellis is a 56 year old female with right renal mass who presents for follow up. Initially discovered in 05/2021 upon work up for gastritis. Mass measures 3.2cm x 3.0cm x 3.2cm on CT 02/01/22. It is located upper pole at the hilar lip. Posterior. Last seen via telephone visit 04/09/22. Given minimal growth, plan to continue with CT kidney in [address] KIDNEY WO/W IVCON 10/07/2022 IMPRESSION: 3.3 cm RIGHT upper pole renal neoplasm minimally increased from 3.0 cm the May 2021 study. No advanced disease; no lymphadenopathy, renal vein involvement or adrenal involvement. Interval Hx: Overall, doing well. Had GI bleed in 05/2031- had endoscopy and colonoscopy, unable to find bleed per patient. She states she was given IV iron and stopped her Plavix. She states her Hgb has been trending upward and is now taking daily Iron. SOB on exertion has improved since Hgb has risen. Taking daily Xarelto (10 mg at night). No flank pain or hematuria. No unintentional weight loss- has intentionally lost 7 lbs since last OV. Still smoking cigarettes- 1 PPD. Past Surgical History: Open cholecystectomy (1984), MAURICE/BSO for endometriosis (1991), spinal surgery, knee surgery Past Medical History: DMII, Factor V Leiden with provoked DVT after knee surgery (2016), CAD, PAD; HLD, morbid obesity Radiation History: none Anticoagulation: Xarelto, plavix Social History: current smoker (I PPD x >30 years) ; no ETOH or drug use, disabled Family History: Sister x2 - Lung Cancer; she recently discovered maternal aunt and maternal had kidney cancer - both had nephrectomy Data Reviewed: Most recent labs and imaging results. Labs: Creatinine Date Value Ref Range Status 10/07/2022 1.06 (H) 0.58 - 0.96 mg/dL Final 04/05/2022 0.91 0.58 - 0.96 mg/dL Final Creatinine 02/01/2022- 1.00 mg/dL 06/15/2021- 1.01 mg/dL 04/28/2021- 0.82 mg/dL Imaging: CT KIDNEY WO/W IVCON 04/05/2022 IMPRESSION: 1. A 3.3 cm heterogeneously enhancing mass within the medial right renal upper pole is unchanged since 02/01/2022, and remains compatible with a solid renal neoplasm. 2. There is unchanged abutment of the right renal hilar vasculature by the aforementioned right renal mass. The right renal vein and inferior vena cava are patent. 3. No evidence of metastatic disease within the abdomen. CT ABD/PEL: 02/02/2022 1. Heterogeneous, enhancing right renal mass which continues to increase increased slowly in size, now maximum 2.9 cm in diameter, favoring renal cell carcinoma. 2. No evidence of metastatic disease. 3. Marked degenerative disc disease L5-S1. HISTORY REVIEWED (electronic chart updated): No past medical history on file. No past surgical history on file. No family history on file. Social History Tobacco Use Smoking status: Every Day Types: Cigarettes Smokeless tobacco: Never Substance Use Topics Alcohol use: Not Currently Drug use: Yes Types: Marijuana Current Outpatient Medications Medication Sig DULoxetine (CYMBALTA) 60 mg capsule duloxetine 60 mg capsule,delayed release TAKE 1 CAPSULE BY MOUTH EVERY DAY atorvastatin (LIPITOR) 80 mg tablet Take 80 mg by mouth once daily. fexofenadine (LUZ) 180 mg tablet fexofenadine 180 mg tablet TAKE 1 TABLET BY MOUTH EVERY DAY gabapentin (NEURONTIN) 300 mg capsule Take 600 mg by mouth twice daily. MV with Ipd-Hzxonhgv-Rxkuvs (CENTRUM SILVER) 0.4 mg-300 mcg- 250 mcg tab Take by mouth. (Patient not taking: Reported on 03/16/2022) insulin 75/25 lispro protamine/lispro units/mL (HUMALOG MIX 75-25,U-100,INSULN) 100 units/mL susp as directed. HYDROcodone-acetaminophen (NORCO) 5-325 mg per tablet hydrocodone 5 mg-acetaminophen 325 mg tablet TAKE 1 TO 2 TABLETS BY MOUTH EVERY DAY AT BEDTIME NEEDED yixvpzzq-gnc-rtft-FA-lutein (CENTRUM SILVER WOMEN) 8 mg iron-400 mcg-300 mcg tab furosemide (LASIX) 40 mg tablet furosemide 40 mg tablet TAKE 1 AND 1/2 TABLETS BY MOUTH DAILY clopidogrel (PLAVIX) 75 mg tablet clopidogrel 75 mg tablet TAKE 1 TABLET BY MOUTH EVERY DAY metoprolol succinate ER (TOPROL XL) 25 mg 24 hr tablet metoprolol succinate ER 25 mg tablet,extended release 24 hr TAKE 1 TABLET BY MOUTH DAILY (ALONG WITH THE 50MG TABLET FOR 75 MG TOTAL DAILY) metoprolol succinate ER (TOPROL XL) 50 mg 24 hr tablet metoprolol succinate ER 50 mg tablet,extended release 24 hr TAKE 1 TABLET BY MOUTH EVERY DAY rivaroxaban (XARELTO) 10 mg tablet Xarelto 10 mg tablet metFORMIN (GLUCOPHAGE) 1,000 mg tablet Take 1,000 mg by mouth twice daily. cholecalciferol (VITAMIN D3) 5,000 unit tab Vitamin D3 Refills(s) 0 Start Date: 07/27/21 Status: Ordered (Patient not taking: Reported on 03/16/2022) HYDROcodone-Acetaminophen 5-300 mg tab Take 1 tablet by mouth every 8 hours as needed for pain. methocarbamol (ROBAXIN) 500 mg tablet Take 500 mg by mouth four times daily. esomeprazole mag/glycerin (ESOMEP-EZS ORAL) Take by mouth. No current facility-administered medications for this visit. ALLERGIES No Known Allergies REVIEW OF SYSTEMS: GENERAL: improving energy GI: no abdominal pain : no hematuria PHYSICAL EXAMINATION: VIDEO EXAM: (if completed, performed via video enabled technology) GENERAL: alert and appropriate, in no distress, well-hydrated, well nourished, and happy, smiling, interactive RESPIRATORY: breathing non-labored CHEST: equal chest rise with normal respiratory effort ASSESSMENT: (N28.89) Renal mass, right (primary encounter diagnosis) (Z80.51) Family history of renal cancer (E66.01) Morbid obesity (HCC) (F17.200) Current every day smoker 56 year old female with multiple medical co-morbidities with 3.3 cm right renal mass Stable on recent CT kidney with minimal growth since it was initially discovered- reviewed by Dr. Pickens who recommended continued surveillance at this time Hx of Factor V Leiden- on xarelto Every day smoker BMI 44.29 PLAN: -Encourage weight loss -Encourage smoking cessation -Follow up virtual visit in [address] kidney checked prior to visit Discussed with Dr. Pickens. There are no Patient Instructions on file for this visit. I spent a total of 30 minutes on the date of the service which included preparing to see the patient, [id number] patient care, completing clinical documentation, counseling and educating the patient/family/caregiver, and ordering medications, tests, or procedures Angie Mcclellan APRN.CNP documented in this encounter [facility] 10-07-2022 Note HNO ID: [id number] Author: Christel Hua RT(R) Service: ? Author Type: Technologist Type: Progress Notes Filed: 10/07/2022 10:33 AM Note Text: Radiology Service Progress Note PATIENT NAME: Elmer Ellis DATE OF SERVICE: October 07, 2022 TIME: 10:33 AM PATIENT IDENTITY VERIFICATION COMPLETED USING TWO (2) IDENTIFIERS: Name and Date of confirmed by patient verbally. FALL SCREENING: Has the patient had 2 falls in the last year or 1 fall with injury or currently using an Ambulatory Assistive Device (Walker, Cane, Wheelchair, Crutches, etc.)? No PATIENT GENDER DATA: Female. status: : No status: NO. PATIENT RELEVANT IMPLANT DATA REVIEWED: Not Applicable RADIOLOGY DEPARTMENT: CT; Exam(s) Completed: Kidney PERIPHERAL IV DATA: Not applicable SIGNED BY: Christel Hua, RT(R) October 07, 2022 10:33 AM [facility] 08-04-2022 Note [place] [facility] Subjective Elmer Ellis is a 56 y.o. year old female patient being seen for Coronary Artery Disease and Peripheral artery disease Patient Active Problem List Diagnosis Coronary atherosclerosis Dyspnea on exertion Factor V Leiden (CMS/HCC) Hypertriglyceridemia History of deep vein thrombosis Intermittent claudication (CMS/HCC) Tobacco dependence syndrome Smoker Renal mass Other specified disorders of kidney and ureter Morbid obesity (CMS/HCC) Intermittent palpitations Family History Problem Relation Name Age of Onset Diabetes Mother Heart attack Mother Other (epilepsy) Mother Coronary artery disease Mother Diabetes Father Coronary artery disease Father Heart attack Maternal Grandfather Social History Tobacco Use Smoking status: Every Day Packs/day: 1.00 Types: Cigarettes Smokeless tobacco: Never Substance Use Topics Alcohol use: Not Currently HPI Elmer is seen in follow-up. She is a 56-year-old woman with history of morbid obesity, diabetes and smoking. She has coronary artery disease. This was diagnosed when she presented with the dyspnea on exertion and underwent an outpatient stress test which showed possible anterior wall reversible ischemia. She then underwent cardiac catheterization on 01/15/2019. I have reviewed the cardiac angiography films and those showed mild left coronary system disease with moderate proximal to mid RCA disease. It was decided to manage her medically at that time. She has prior history of left DVT post knee surgery and she is on Xarelto for that. She reports that Dr. Ba told her that she will need to be on lifelong anticoagulation due to Factor V Leyden. At her prior visit with [facility] Niyah Pop on 04/27/2019 she was complaining of significant lower extremity claudication. ABIs were checked and those showed reduction in right lower extremity perfusion at rest and reduction of both lower extremity perfusion with exercise. She was started on cilostazol 100 mg twice daily but continued to have significant claudication in both legs more so on the right. After visit of 04/16/2020 I proceeded with lower extremity angiography on 04/22/2020. She was found to have high-grade stenosis in the right mid SFA to which she underwent a Zilver PTX drug-eluting stent. She was then placed on dual antiplatelet therapy with aspirin and Plavix. Pletal was stopped. She is also on Xarelto 10 mg daily due to her prior history of DVT. She reports that she has been doing much better with no claudication in the right lower extremity. recently she was discovered to have hemoglobin of 7.3 and GI bleeding [melena]. She underwent endoscopy with no significant findings. She was treated with intravenous iron. Her hemoglobin improved. After last visit with me in May 2022 I told her to stop Plavix. She continues to be on Xarelto 10 mg daily. She is taking furosemide 40 mg daily. She denies chest pain. She has no significant shortness of breath on exertion. She has mild lower extremity edema. Review of Systems Cardiovascular: Positive for leg swelling. All other systems reviewed and are negative. Objective Visit Vitals BP 114/70 (BP Location: Left arm, Patient Position: Sitting) Pulse 78 SpO2 97% Smoking Status Every Day Physical Exam Constitutional: Appearance: She is well-developed. She is obese. She is not ill-appearing. HENT: Head: Normocephalic and atraumatic. Nose: Nose normal. Eyes: General: No scleral icterus. Pupils: Pupils are equal, round, and reactive to light. Neck: Thyroid: No thyromegaly. Vascular: No JVD. Cardiovascular: Rate and Rhythm: Normal rate and regular rhythm. Pulses: Radial pulses are 2+ on the right side and 2+ on the left side. Heart sounds: Normal heart sounds. No murmur heard. No friction rub. No gallop. Pulmonary: Effort: Pulmonary effort is normal. No respiratory distress. Breath sounds: Normal breath sounds. No wheezing or rales. Chest: Chest wall: No tenderness. Abdominal: General: Bowel sounds are normal. There is no distension. Palpations: Abdomen is soft. Tenderness: There is no abdominal tenderness. Musculoskeletal: General: No swelling. Cervical back: Neck supple. Right lower le+ Pitting Edema present. Left lower le+ Pitting Edema present. Skin: General: Skin is warm and dry. Neurological: General: No focal deficit present. Mental Status: She is alert and oriented to person, place, and time. Psychiatric: Mood and Affect: Mood normal. Behavior: Behavior is cooperative. Judgment: Judgment normal. Allergies No Known Allergies Medications Current Outpatient Medications: atorvastatin (Lipitor) 80 mg tablet, TAKE 1 TABLET BY MOUTH EVERY DAY, Disp: 90 tablet, Rfl: 3 ferrous sulfate 325 (65 Fe) MG tablet, Take 1 tablet by mouth in the morning., Disp: , Rfl: furosemide (Lasix) 40 mg table (more content not included)... [facility] 05-31-2022 Note [place] [facility] Subjective Elmer Ellis is a 56 y.o. year old female patient being seen for Coronary Artery Disease and Peripheral Vascular Disease She had labs last month and HGB was 7.3. She is scheduled on Tuesday for EGD and colonoscopy. Needs to hold Plavix 5 days prior and Xarelto 2 days prior. Denies chest pain. SOB w/ exertion and LE edema remain unchanged. Patient Active Problem List Diagnosis Coronary atherosclerosis Dyspnea on exertion Factor V Leiden (CMS/HCC) Hypertriglyceridemia History of deep vein thrombosis Intermittent claudication (CMS/HCC) Tobacco dependence syndrome Smoker Renal mass Other specified disorders of kidney and ureter Morbid obesity (CMS/HCC) Intermittent palpitations Family History Problem Relation Name Age of Onset Diabetes Mother Heart attack Mother Other (epilepsy) Mother Coronary artery disease Mother Diabetes Father Coronary artery disease Father Heart attack Maternal Grandfather Social History Tobacco Use Smoking status: Every Day Packs/day: 1.00 Types: Cigarettes Smokeless tobacco: Never Substance Use Topics Alcohol use: Not Currently HPI Elmer is seen in follow-up. She is a 56-year-old woman with history of morbid obesity, diabetes and smoking. She has coronary artery disease. This was diagnosed when she presented with the dyspnea on exertion and underwent an outpatient stress test which showed possible anterior wall reversible ischemia. She then underwent cardiac catheterization on 01/15/2019. I have reviewed the cardiac angiography films and those showed mild left coronary system disease with moderate proximal to mid RCA disease. It was decided to manage her medically at that time. She has prior history of left DVT post knee surgery and she is on Xarelto for that. She reports that Dr. Ba told her that she will need to be on lifelong anticoagulation due to Factor V [place]. At her prior visit with ZELALEM Pop on 04/27/2019 she was complaining of significant lower extremity claudication. ABIs were checked and those showed reduction in right lower extremity perfusion at rest and reduction of both lower extremity perfusion with exercise. She was started on cilostazol 100 mg twice daily but continued to have significant claudication in both legs more so on the right. After visit of 04/16/2020 I proceeded with lower extremity angiography on 04/22/2020. She was found to have high-grade stenosis in the right mid SFA to which she underwent a Zilver PTX drug-eluting stent. She was then placed on dual antiplatelet therapy with aspirin and Plavix. Pletal was stopped. She is also on Xarelto 10 mg daily due to her prior history of DVT. She reports that she has been doing much better with less claudication in the right lower extremity than before. recently she was discovered to have hemoglobin of 7.3 and GI bleeding [melena]. She will be undergoing upper and lower endoscopies. She was instructed to hold Plavix 5 days prior to the procedure and Xarelto 2 days prior to the procedure. She denies chest pain. She has mild shortness of breath on exertion and bilateral lower extremity edema. Review of Systems Constitutional: Positive for malaise/fatigue. Cardiovascular: Positive for dyspnea on exertion and leg swelling. Musculoskeletal: Positive for back pain. Neurological: Positive for light-headedness. All other systems reviewed and are negative. Objective Visit Vitals BP 134/74 (BP Location: Left arm, Patient Position: Sitting) Pulse 79 Ht 1.626 m (5' 4 ) Wt 120 kg (265 lb) SpO2 97% BMI 45.49 kg/m??? Smoking Status Every Day BSA 2.33 m??? Physical Exam Constitutional: Appearance: She is well-developed. She is not ill-appearing. HENT: Head: Normocephalic and atraumatic. Nose: Nose normal. Eyes: General: No scleral icterus. Pupils: Pupils are equal, round, and reactive to light. Neck: Thyroid: No thyromegaly. Vascular: No JVD. Cardiovascular: Rate and Rhythm: Normal rate and regular rhythm. Pulses: Radial pulses are 2+ on the right side and 2+ on the left side. Heart sounds: Normal heart sounds. No murmur heard. No friction rub. No gallop. Pulmonary: Effort: Pulmonary effort is normal. No respiratory distress. Breath sounds: Normal breath sounds. No wheezing or rales. Chest: Chest wall: No tenderness. Abdominal: General: Bowel sounds are normal. There is no distension. Palpations: Abdomen is soft. Tenderness: There is no abdominal tenderness. Musculoskeletal: General: No swelling. Cervical back: Neck supple. Right lower le+ Pitting Edema present. Left lower le+ Pitting Edema present. Skin: General: Skin is warm and dry. Neurological: General: No focal deficit present. Mental Status: She is alert and oriented to person, place, and time. Psychiatric: Mood and Affect: Mood normal. 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 [facility] 04-09-2022 History of Presen t illness Narrative Images from the original note were not included. TELEPHONE VISIT PROGRESS NOTE This is a virtual visit using telephone It required patient-provider interaction for the medical decision making as documented below. Persons Present: patient Chief Complaint/Reason: Renal mass Clinic note from 03/16/2022 copied and updated. HPI: Elmer Ellis is a 56 year old who presents for right renal mass. First discovered 05/2021 on w/units for gastritis. Mass measures 3.2cm x 3.0cm x 3.2cm on CT 02/01/22. It is located upper pole at the hilar lip. Posterior. I has grown ~3mm since 05/2021. There is no specific adrenal nodule. There is no renal vein or IVC thrombus. There is no specific retroperitoneal adenopathy. There is no obvious solid organ metastasis RENAL Nephrometry Score 8p Last office visit on 03/16/2022. Plan for CT kidney to get better assessment of size. Interval Hx: No changes in her health No weight loss No hematuria Endorses intermittent mucoid diarrhea - she reports he last colonoscopy was 10 years ago, I encouraged her to follow up with her GI doctor and consider repeat surveillance colonoscopy Data Reviewed: Most recent labs and imaging results. Labs Creatinine Date Value Ref Range Status 04/05/2022 0.91 0.58 - 0.96 mg/dL Final Creatinine 02/01/2022- 1.00 mg/dL 06/15/2021- 1.01 mg/dL 04/28/2021- 0.82 mg/dL Imaging CT Kidney: 04/06/2022 IMPRESSION: 1. A 3.3 cm heterogeneously enhancing mass within the medial right renal upper pole is unchanged since 02/01/2022, and remains compatible with a solid renal neoplasm. 2. There is unchanged abutment of the right renal hilar vasculature by the aforementioned right renal mass. The right renal vein and inferior vena cava are patent. 3. No evidence of metastatic disease within the abdomen. CXR: 04/05/2022 IMPRESSION: No evidence for active cardiopulmonary disease. US kidney: 05/28/2021 HISTORY REVIEWED (electronic chart updated): No past medical history on file. No past surgical history on file. No family history on file. Social History Tobacco Use Smoking status: Every Day Types: Cigarettes Smokeless tobacco: Never Substance Use Topics Alcohol use: Not Currently Drug use: Yes Types: Marijuana Current Outpatient Medications Medication Sig DULoxetine (CYMBALTA) 60 mg capsule duloxetine 60 mg capsule,delayed release TAKE 1 CAPSULE BY MOUTH EVERY DAY atorvastatin (LIPITOR) 80 mg tablet Take 80 mg by mouth once daily. fexofenadine (LUZ) 180 mg tablet fexofenadine 180 mg tablet TAKE 1 TABLET BY MOUTH EVERY DAY gabapentin (NEURONTIN) 300 mg capsule Take 600 mg by mouth twice daily. MV with Evd-Yvepvzha-Flvdbs (CENTRUM SILVER) 0.4 mg-300 mcg- 250 mcg tab Take by mouth. (Patient not taking: Reported on 03/16/2022) insulin 75/25 lispro protamine/lispro units/mL (HUMALOG MIX 75-25,U-100,INSULN) 100 units/mL susp as directed. HYDROcodone-acetaminophen (NORCO) 5-325 mg per tablet hydrocodone 5 mg-acetaminophen 325 mg tablet TAKE 1 TO 2 TABLETS BY MOUTH EVERY DAY AT BEDTIME NEEDED nqthlgbq-aux-cyfr-FA-lutein (CENTRUM SILVER WOMEN) 8 mg iron-400 mcg-300 mcg tab furosemide (LASIX) 40 mg tablet furosemide 40 mg tablet TAKE 1 AND 1/2 TABLETS BY MOUTH DAILY clopidogrel (PLAVIX) 75 mg tablet clopidogrel 75 mg tablet TAKE 1 TABLET BY MOUTH EVERY DAY metoprolol succinate ER (TOPROL XL) 25 mg 24 hr tablet metoprolol succinate ER 25 mg tablet,extended release 24 hr TAKE 1 TABLET BY MOUTH DAILY (ALONG WITH THE 50MG TABLET FOR 75 MG TOTAL DAILY) metoprolol succinate ER (TOPROL XL) 50 mg 24 hr tablet metoprolol succinate ER 50 mg tablet,extended release 24 hr TAKE 1 TABLET BY MOUTH EVERY DAY rivaroxaban (XARELTO) 10 mg tablet Xarelto 10 mg tablet metFORMIN (GLUCOPHAGE) 1,000 mg tablet Take 1,000 mg by mouth twice daily. cholecalciferol (VITAMIN D3) 5,000 unit tab Vitamin D3 Refills(s) 0 Start Date: 07/27/21 Status: Ordered (Patient not taking: Reported on 03/16/2022) HYDROcodone-Acetaminophen 5-300 mg tab Take 1 tablet by mouth every 8 hours as needed for pain. methocarbamol (ROBAXIN) 500 mg tablet Take 500 mg by mouth four times daily. esomeprazole mag/glycerin (ESOMEP-EZS ORAL) Take by mouth. No current facility-administered medications for this visit. ALLERGIES No Known Allergies REVIEW OF SYSTEMS: GENERAL: feeling well without fatigue, no recent change in weight RESPIRATORY: no cough, no wheezing or shortness of breath CARDIOVASCULAR: no chest pain, no palpitations GI: Diarrhea : urination is normal MUSCULOSKELETAL: denies any painful or swollen joints, no muscle aches PHYSICAL EXAMINATION: VIDEO EXAM: (if completed, performed via video enabled technology) No exam performed ASSESSMENT: 56F with growing right renal mass. N28.89 Renal mass, right (primary encounter diagnosis) Comment: Discussed that treatment mainstay is partial nephrectomy vs radical nephrectomy due to complex tumor location. Pt would need to be cleared for surgery as with many comorbidities. Ablation may be an option, but proximity to hilum may preclude this as well. -Given minimal growth will continue with CT in 6 months during which she was encouraged to lose weight and begin optimizing herself for possible nephrectomy -Virtual visit with me at least one day later D68.51 Factor V Leiden (HCC) Comment: Will need to stop Xarelto. Will get approval from prescribing physician. I25.10 Coronary artery disease involving [place] heart without angina pectoris, unspecified vessel or lesion type Comment: Will need cardiology clearance. F17.200 Smoker Comment: Smoking cessation counseling done today. Discussed link between smoking and RCC. E66.01 Morbid obesity (HCC) Comment: Weight loss counseling done today. Discussed link between obesity and RCC. There are no Patient Instructions on file for this visit. I spent a total of 5 minutes on the date of the service which included preparing to see the patient, completing clinical documentation, obtaining and/or reviewing separately obtained history, and counseling and educating the patient/family/caregiver Scribe Attestation: By signing my name below, I, Jody Alcala, attest that this documentation has been prepared under the direction and in the presence of Dr. Lex Pickens MD. Electronically signed: Saad Abad, April 09, 2022 12:26 PM I, Lex Pickens MD, personally performed the services described in this documentation. All medical record entries made by the scribe were at my direction and in my presence. I have reviewed the chart and discharge instructions (if applicable) and agree that the record reflects my personal performance and is accurate and complete. Lex Pickens MD documented in this encounter [facility] 03-19-2022 Miscellaneous Notes Please sign pending Cre order for upcoming CT with contrast on 04/05/22. Thank you. Joi Austin RN documented in this encounter [facility] 03-16-2022 History of Presen t illness Narrative Referring Provider: Self Chief Complaint: right renal mass. JULIEN Ellis is a 56 year old female who presents for right renal mass. First discovered 05/2021 on w/units for gastritis. Mass measures 3.2cm x 3.0cm x 3.2cm on CT 02/01/22. It is located upper pole at the hilar lip. Posterior. I has grown ~3mm since 05/2021. There is no specific adrenal nodule. There is no renal vein or IVC thrombus. There is no specific retroperitoneal adenopathy. There is no obvious solid organ metastasis RENAL Nephrometry Score 8p Past Surgical History: Open cholecystectomy (1984), MAURICE/BSO for endometriosis (1991), spinal surgery, knee surgery Past Medical History: DMII, Factor V Leiden with provoked DVT after knee surgery (2017), CAD, HLD, morbid obesity Radiation History: none Anticoagulation: Xarelto, plavix Social History: 30 pack year smoking history, disabled Family History: Sister x2 - Lung Cancer ECO Poor functional status Renal Function: Cr 1.0 Interval Hx : Has trouble walking long distances and upstairs due to sciatica and orthopedic issues. LABS Creatinine 02/01/2022- 1.00 mg/dL 06/15/2021- 1.01 mg/dL 04/28/2021- 0.82 mg/dL IMAGING CT ABD/PEL: 02/02/2022 1. Heterogeneous, enhancing right renal mass which continues to increase increased slowly in size, now maximum 2.9 cm in diameter, favoring renal cell carcinoma. 2. No evidence of metastatic disease. 3. Marked degenerative disc disease L5-S1. CT ABD/PEL: 05/26/2021 LUNG BASES: Unremarkable. ABDOMINAL SOLID ORGANS: The liver shows no focal mass lesions. Previous lesion within the liver is not identified currently. Cholecystectomy changes are noted. Normal appearing pancreas with no inflammatory changes. Normal adrenal glands. No mass lesions are seen The pancreas shows no focal mass or inflammatory changes. No ductal dilitation. The spleen is intact. The kidneys show normal size contour and axis. No kidney stones or associated hydronephrosis. Redemonstrated is a right renal mass 2.5 x 2.8 cm. The Hounsfield units without contrast measure 54. Hounsfield units postcontrast 84 showing moderate enhancement. Persistent poorly of contrast during delayed images noted with normal ureters bilaterally. STOMACH AND BOWEL: The stomach is unremarkable. Small bowel loops visualized are normal caliber. The colon in the abdomen are unremarkable. PERITONEUM AND RETROPERITONEUM: There is no abdominal lymphadenopathy. There is no pneumoperitoneum or abdominal ascites. There are no retroperitoneal abnormalities. VASCULAR STRUCTURES: The abdominal aorta is unremarkable without aneurysm. The inferior vena cava is unremarkable. The mesenteric vessels and portal veinous structures are grossly patent. OSSEOUS STRUCTURES: There are no significant osseous abnormalities seen. IMPRESSION: 1. Stable appearing right renal mass suspicious for renal cell carcinoma.. 2. Evidence of cholecystectomy CT ABD/PEL: 04/26/2021 IMPRESSION: Suspected increase in size of a right renal cortical lesion/mass Areas of hypodensity in the right hepatic lobe. Consider nonemergent rmultiphasic pre and postcontrast CT exam for further evaluation REVIEW OF SYSTEMS: GENERAL: Negative for fevers, chills, or night sweats. HEENT: Negative for sudden vision or hearing changes. RESPIRATORY: +cough, SOB CARDIAC: Negative for chest pain, palpitations, murmurs, or syncopal episodes. GASTROINTESTINAL: Negative for diarrhea, constipation, abdominal pain and poor appetite. GENITOURINARY: See HPI. MUSCULOSKELETAL: Negative Bone Aches/pain NEUROLOGIC: Negative for dizziness, headache, weakness or numbness. HEMATOLOGIC: Negative for bleeding or easy bruising. SKIN: Negative for rashes or other skin changes. No past medical history on file. No family history on file. Social History Tobacco Use Smoking status: Every Day Types: Cigarettes Smokeless tobacco: Never Substance Use Topics Alcohol use: Not Currently Drug use: Yes Types: Marijuana PHYSICAL EXAMINATION: General appearance: Well appearing, alert, in no acute distress, and well-hydrated, well nourished Back: no pain to palpation over spine or costovertebral angles, reflexes are 2+ and symmetric, motor and sensory appear to be normal Lungs: Cough Heart: RRR Abdomen: Normal abdominal exam, Abdomen soft, non-tender. Bowel sounds normal. No masses, organomegaly, well healed incisions Extremities: WNL Musculoskeletal: Spine range of motion normal. Muscular strength intact, No joint swelling, deformity, or tenderness Assessment 56F with growing right renal mass. N28.89 Renal mass, right (primary encounter diagnosis) Comment: Discussed that treatment mainstay is partial nephrectomy vs radical nephrectomy due to complex tumor location. Pt would need to be cleared for surgery as with many comorbidities. Ablation may be an option, but proximity to hilum may preclude this as well. Will get proper renal mass protocol CT to get better assessment of size. If reliably growing, then will consider biopsy prior to surgery as pt is poor surgical candidate. D68.51 Factor V Leiden (HCC) Comment: Will need to stop Xarelto. Will get approval from prescribing physician. I25.10 Coronary artery disease involving [place] heart without angina pectoris, unspecified vessel or lesion type Comment: Will need cardiology clearance. F17.200 Smoker Comment: Smoking cessation counseling done today. Discussed link between smoking and RCC. E66.01 Morbid obesity (HCC) Comment: Weight loss counseling done today. Discussed link between obesity and RCC. Isabelleibe Attestation: By signing my name below, Jody Grant, attest that this documentation has been prepared under the direction and in the presence of Dr. Lex Pickens MD. Electronically signed: Saad Abad, March 16, 2022 3:05 PM Lex Grant MD, personally performed the services described in this documentation. All medical record entries made by the saad were at my direction and in my presence. I have reviewed the chart and discharge instructions (if applicable) and agree that the record reflects my personal performance and is accurate and complete. Lex Pickens MD documented in this encounter [facility] 03-05-2022 Hospital Discharg e instructions Patient Education 03/05/2022 11:04:20 Renal Mass Renal Mass A renal mass is a growth in the kidney. A renal mass may be found while performing an MRI, CT scan, or ultrasound for other problems of the abdomen. Certain types of cancers, infections, or injuries can cause a renal mass. A renal mass that is cancerous (malignant) may grow or spread quickly. Others are harmless (benign). What are common types of renal masses? Renal masses include: Tumors. These may be cancerous (malignant) or noncancerous (benign). ?The most common type of kidney cancer is renal cell carcinoma. ?The most common benign tumors of the kidney include renal adenomas, oncocytomas, and angiomyolipoma (AML). Cysts. These are fluid-filled sacs that form on or in the kidney. ?It is not always known what causes a cyst to develop in or on the kidney. ?Most kidney cysts do not cause symptoms and do not need to be treated. What type of testing might I need? Your health care provider may recommend that you have tests to diagnose the cause of your renal mass. The following tests may be done if a renal mass is found: Physical exam. Blood tests. Urine tests. Imaging tests, such as ultrasound, CT scan, or MRI. Biopsy. This is a small sample that is removed from the renal mass and tested in a lab. The exact tests and how often they are done will depend on: The size and appearance of the renal mass. Risk factors or medical conditions that increase your risk for problems. Any symptoms associated with the renal mass, or concerns that you have about it. Tests and physical exams may be done once, or they may be done regularly for a period of time. Tests and exams that are done regularly will help monitor whether the mass is growing and beginning to cause problems. What are common treatments for renal masses? Treatment is not always needed for this condition. Your health care provider may recommend careful monitoring (watchful waiting) and regular tests and exams. Treatment will depend on the cause of the mass. Follow these instructions at home: What you need to do at home will depend on the cause of the mass. Follow the instructions that your health care provider gives to you. In general: Take ifwm-hhu-ihblgcl and prescription medicines only as told by your health care provider. If you are prescribed an antibiotic medicine, take it as told by your health care provider. Do not stop taking the antibiotic even if you start to feel better. Follow any restrictions that are given to you by your health care provider. Keep all follow-up visits as told by your health care provider. This is important. ?You may need to see your health care provider once or twice a year to have CT scans and ultrasounds done. These tests will show if your renal mass has changed or grown bigger. Contact a health care provider if you: Have pain in the side or back (flank pain). Have a fever. Feel full soon after eating. Have pain or swelling in the abdomen. Lose weight. Get help right away if: Your pain gets worse. There is blood in your urine. You cannot urinate. You have chest pain. You have trouble breathing. Summary A renal mass is a growth in the kidney. It may be cancerous (malignant) and grow or spread quickly, or it may be harmless (benign). Renal masses may be found while performing an MRI, CT scan, or ultrasound for other problems of the abdomen. Your health care provider may recommend that you have tests to diagnose the cause of your renal mass. This may include a physical exam, blood tests, urine tests, imaging, or a biopsy. Treatment is not always needed for this condition. Careful monitoring (watchful waiting) may be recommended. This information is not intended to replace advice given to you by your health care provider. Make sure you discuss any questions you have with your health care provider. Document Released: 09/04/2014 Document Revised: 03/16/2018 Document Reviewed: 03/16/2018 [employer] Patient Education 2020 [employer] Follow Up Care 07/27/2021 10:19:10 With:VENKAT SAWYER, Jluis Jacinto, URL Address: [address] [place] [address] [place] [address]- When: Unknown [facility] 11-09-2021 Note HNO ID: [id number] Author: Lilly Tony MD Service: ? Author Type: Physician Type: Progress Notes Filed: 11/09/2021 2:14 PM Note Text: ORTHOPAEDIC OFFICE NOTE CHIEF COMPLAINT: Follow-up left ankle fracture HISTORY OF PRESENT ILLNESS: Elmer Ellis is a 56 year old female who presents for Follow-up evaluation of left ankle fracture sustained on 09/12/2021. Overall the patient is doing well. For the most part she is pain-free. She is transition her self to weightbearing as tolerated using a walker boot. She is not requiring any assistive device. She denies current fevers chills nausea vomiting weight loss fatigue or malaise. Reviewed nursing note and current pain scale. History reviewed. No pertinent past medical history. History reviewed. No pertinent surgical history. History reviewed. No pertinent family history. Social History Tobacco Use Smoking status: Every Day Types: Cigarettes Smokeless tobacco: Never Substance Use Topics Alcohol use: Not Currently Drug use: Yes Types: Marijuana MEDICATIONS: Current Outpatient Medications Medication Sig DULoxetine (CYMBALTA) 60 mg capsule duloxetine 60 mg capsule,delayed release TAKE 1 CAPSULE BY MOUTH EVERY DAY atorvastatin (LIPITOR) 80 mg tablet Take 80 mg by mouth once daily. fexofenadine (LUZ) 180 mg tablet fexofenadine 180 mg tablet TAKE 1 TABLET BY MOUTH EVERY DAY gabapentin (NEURONTIN) 300 mg capsule Take 600 mg by mouth twice daily. MV with Ubq-Hxjkjdhm-Bhproq (CENTRUM SILVER) 0.4 mg-300 mcg- 250 mcg tab Take by mouth. insulin 75/25 lispro protamine/lispro units/mL (HUMALOG MIX 75-25,U-100,INSULN) 100 units/mL susp as directed. HYDROcodone-acetaminophen (NORCO) 5-325 mg per tablet hydrocodone 5 mg-acetaminophen 325 mg tablet TAKE 1 TO 2 TABLETS BY MOUTH EVERY DAY AT BEDTIME NEEDED ikkpmdzz-mkv-qjcz-FA-lutein (CENTRUM SILVER WOMEN) 8 mg iron-400 mcg-300 mcg tab furosemide (LASIX) 40 mg tablet furosemide 40 mg tablet TAKE 1 AND 1/2 TABLETS BY MOUTH DAILY clopidogrel (PLAVIX) 75 mg tablet clopidogrel 75 mg tablet TAKE 1 TABLET BY MOUTH EVERY DAY metoprolol succinate ER (TOPROL XL) 25 mg 24 hr tablet metoprolol succinate ER 25 mg tablet,extended release 24 hr TAKE 1 TABLET BY MOUTH DAILY (ALONG WITH THE 50MG TABLET FOR 75 MG TOTAL DAILY) metoprolol succinate ER (TOPROL XL) 50 mg 24 hr tablet metoprolol succinate ER 50 mg tablet,extended release 24 hr TAKE 1 TABLET BY MOUTH EVERY DAY rivaroxaban (XARELTO) 10 mg tablet Xarelto 10 mg tablet metFORMIN (GLUCOPHAGE) 1,000 mg tablet Take 1,000 mg by mouth twice daily. cholecalciferol (VITAMIN D3) 5,000 unit tab Vitamin D3 Refills(s) 0 Start Date: 07/27/21 Status: Ordered HYDROcodone-Acetaminophen 5-300 mg tab Take 1 tablet by mouth every 8 hours as needed for pain. methocarbamol (ROBAXIN) 500 mg tablet Take 500 mg by mouth four times daily. esomeprazole mag/glycerin (ESOMEP-EZS ORAL) Take by mouth. No current facility-administered medications for this visit. ALLERGIES: ALLERGIES No Known Allergies PHYSICAL EXAMINATION: Resp 18 Ht 5' 4 (1.63m) Wt 266 lb 3.2 oz (120.7kg) BMI 45.67 kg/(m2). General Appearance: Well appearing, alert, in no acute distress, well-hydrated, well nourished. and Obese Skin: Skin color, texture, turgor normal, no suspicious rashes or lesions. Psych: Patient is alert and oriented to person, time and place. Mood and affect are normal. Respiratory: Breathing is symmetric and unlabored Gait: The patient was examined in a wheelchair today. Extremities: Left lower extremity is examined. Skin is intact without erythema or surgical scar. There is mild swelling.Tenderness is resolved. Range of motion of the ankle is relatively pain-free. Lymphatic: There is no palpable lymphadenopathy Peripheral Pulses: Normal. Neurologic: Bilateral lower extremities were examined. There is 5/5 strength with hip flexion, knee extension, dorsiflexion, EHL, plantar flexion. Sensation intact in all nerve dermatomes IMAGES: Physician office building radiographs, 11/09/2021. AP, lateral mortise views of the left ankle were obtained and reviewed. Nondisplaced fracture of the medial malleolus is difficult to appreciate on this exam. The talus is well-seated underneath the plafond. There is no destructive lesion appreciable. Soft tissues otherwise unremarkable. Plan ASSESSMENT AND PLAN: 1. Closed fracture of left ankle, initial encounter - ICD9: 824.8, ICD10: S82.892A Functional Plan: Patient is a 56-year-old female presenting for follow-up evaluation of left ankle fracture sustained on 09/12/2021. Overall she is doing well. For the most part she is pain-free. She has been ambulating independently in a walker boot without issue. Radiographs today are stable. I discussed this with her at length. She can transition her self out of the walker boot to normal supportive shoe. She can continue with activity without re (more content not included)... [facility] 10-19-2021 Note HNO ID: [id number] Author: Lilly Tony MD Service: ? Author Type: Physician Type: Progress Notes Filed: 10/19/2021 12:03 AM Note Text: ORTHOPAEDIC OFFICE NOTE CHIEF COMPLAINT: Follow-up left ankle fracture HISTORY OF PRESENT ILLNESS: Elmer Ellis is a 55 year old female who presents for Follow-up evaluation of left ankle fracture sustained on 09/12/2021. Overall patient is doing well. She has been compliant with nonweightbearing. She is not having any pain. She has been ambulating with the assistance of a wheelchair. She denies current fevers chills nausea vomiting weight loss fatigue or malaise. Reviewed nursing note and current pain scale. History reviewed. No pertinent past medical history. History reviewed. No pertinent surgical history. History reviewed. No pertinent family history. Social History Tobacco Use Smoking status: Every Day Types: Cigarettes Smokeless tobacco: Never Substance Use Topics Alcohol use: Not Currently Drug use: Yes Types: Marijuana MEDICATIONS: Current Outpatient Medications Medication Sig DULoxetine (CYMBALTA) 60 mg capsule duloxetine 60 mg capsule,delayed release TAKE 1 CAPSULE BY MOUTH EVERY DAY atorvastatin (LIPITOR) 80 mg tablet Take 80 mg by mouth once daily. fexofenadine (LUZ) 180 mg tablet fexofenadine 180 mg tablet TAKE 1 TABLET BY MOUTH EVERY DAY gabapentin (NEURONTIN) 300 mg capsule Take 600 mg by mouth twice daily. MV with Ktz-Gmqnpekf-Pmrjez (CENTRUM SILVER) 0.4 mg-300 mcg- 250 mcg tab Take by mouth. insulin 75/25 lispro protamine/lispro units/mL (HUMALOG MIX 75-25,U-100,INSULN) 100 units/mL susp as directed. HYDROcodone-acetaminophen (NORCO) 5-325 mg per tablet hydrocodone 5 mg-acetaminophen 325 mg tablet TAKE 1 TO 2 TABLETS BY MOUTH EVERY DAY AT BEDTIME NEEDED ygskeslx-yyv-csdr-FA-lutein (CENTRUM SILVER WOMEN) 8 mg iron-400 mcg-300 mcg tab furosemide (LASIX) 40 mg tablet furosemide 40 mg tablet TAKE 1 AND 1/2 TABLETS BY MOUTH DAILY clopidogrel (PLAVIX) 75 mg tablet clopidogrel 75 mg tablet TAKE 1 TABLET BY MOUTH EVERY DAY metoprolol succinate ER (TOPROL XL) 25 mg 24 hr tablet metoprolol succinate ER 25 mg tablet,extended release 24 hr TAKE 1 TABLET BY MOUTH DAILY (ALONG WITH THE 50MG TABLET FOR 75 MG TOTAL DAILY) metoprolol succinate ER (TOPROL XL) 50 mg 24 hr tablet metoprolol succinate ER 50 mg tablet,extended release 24 hr TAKE 1 TABLET BY MOUTH EVERY DAY rivaroxaban (XARELTO) 10 mg tablet Xarelto 10 mg tablet metFORMIN (GLUCOPHAGE) 1,000 mg tablet Take 1,000 mg by mouth twice daily. cholecalciferol (VITAMIN D3) 5,000 unit tab Vitamin D3 Refills(s) 0 Start Date: 07/27/21 Status: Ordered HYDROcodone-Acetaminophen 5-300 mg tab Take 1 tablet by mouth every 8 hours as needed for pain. methocarbamol (ROBAXIN) 500 mg tablet Take 500 mg by mouth four times daily. esomeprazole mag/glycerin (ESOMEP-EZS ORAL) Take by mouth. No current facility-administered medications for this visit. ALLERGIES: ALLERGIES No Known Allergies PHYSICAL EXAMINATION: Resp 20 Ht 5' 4 (1.63m) Wt 260 lb (117.9kg) BMI 44.61 kg/(m2). General Appearance: Well appearing, alert, in no acute distress, well-hydrated, well nourished. and Obese Skin: Skin color, texture, turgor normal, no suspicious rashes or lesions. Psych: Patient is alert and oriented to person, time and place. Mood and affect are normal. Respiratory: Breathing is symmetric and unlabored Gait: The patient was examined in a wheelchair today. Extremities: Left lower extremity is examined. Skin is intact without erythema or surgical scar. There is mild swelling and tenderness at the ankle. There is also tenderness near the knee. There is no palpable mass. Gentle range of motion of the ankle is mildly painful for the patient. Lymphatic: There is no palpable lymphadenopathy Peripheral Pulses: Normal. Neurologic: Bilateral lower extremities were examined. There is 5/5 strength with hip flexion, knee extension, dorsiflexion, EHL, plantar flexion. Sensation intact in all nerve dermatomes IMAGES: Physician office building radiographs, 10/12/2021. AP, lateral and mortise views of the left ankle were obtained and reviewed. These demonstrate nondisplaced medial malleolus fracture. Overall alignment is stable. The talus is well centered near the plafond. There is no destructive lesion appreciable. Soft tissues otherwise unremarkable. Overall stable appearing follow-up radiographs. Plan ASSESSMENT AND PLAN: 1. Closed fracture of left ankle, initial encounter - ICD9: 824.8, ICD10: S82.892A Functional Plan: Patient is a 55-year-old female present follow-up evaluation of left ankle fracture sustained on 09/12/2021. Overall patient is doing well. For most part she is pain-free. Radiographs are stable. I discussed this with her at length. I will transition her to a walker boot. She is to remain nonweightbearing left lower extremity. S (more content not included)... [facility] 10-18-2021 History of Presen t illness Narrative ORTHOPAEDIC OFFICE NOTE CHIEF COMPLAINT: Follow-up left ankle fracture HISTORY OF PRESENT ILLNESS: Elmer Ellis is a 55 year old female who presents for Follow-up evaluation of left ankle fracture sustained on 09/12/2021. Overall patient is doing well. She has been compliant with nonweightbearing. She is not having any pain. She has been ambulating with the assistance of a wheelchair. She denies current fevers chills nausea vomiting weight loss fatigue or malaise. Reviewed nursing note and current pain scale. History reviewed. No pertinent past medical history. History reviewed. No pertinent surgical history. History reviewed. No pertinent family history. Social History Tobacco Use Smoking status: Every Day Types: Cigarettes Smokeless tobacco: Never Substance Use Topics Alcohol use: Not Currently Drug use: Yes Types: Marijuana MEDICATIONS: Current Outpatient Medications Medication Sig DULoxetine (CYMBALTA) 60 mg capsule duloxetine 60 mg capsule,delayed release TAKE 1 CAPSULE BY MOUTH EVERY DAY atorvastatin (LIPITOR) 80 mg tablet Take 80 mg by mouth once daily. fexofenadine (LUZ) 180 mg tablet fexofenadine 180 mg tablet TAKE 1 TABLET BY MOUTH EVERY DAY gabapentin (NEURONTIN) 300 mg capsule Take 600 mg by mouth twice daily. MV with Mpx-Flniybce-Dxwqin (CENTRUM SILVER) 0.4 mg-300 mcg- 250 mcg tab Take by mouth. insulin 75/25 lispro protamine/lispro units/mL (HUMALOG MIX 75-25,U-100,INSULN) 100 units/mL susp as directed. HYDROcodone-acetaminophen (NORCO) 5-325 mg per tablet hydrocodone 5 mg-acetaminophen 325 mg tablet TAKE 1 TO 2 TABLETS BY MOUTH EVERY DAY AT BEDTIME NEEDED uniihbdj-ezw-gdhm-FA-lutein (CENTRUM SILVER WOMEN) 8 mg iron-400 mcg-300 mcg tab furosemide (LASIX) 40 mg tablet furosemide 40 mg tablet TAKE 1 AND 1/2 TABLETS BY MOUTH DAILY clopidogrel (PLAVIX) 75 mg tablet clopidogrel 75 mg tablet TAKE 1 TABLET BY MOUTH EVERY DAY metoprolol succinate ER (TOPROL XL) 25 mg 24 hr tablet metoprolol succinate ER 25 mg tablet,extended release 24 hr TAKE 1 TABLET BY MOUTH DAILY (ALONG WITH THE 50MG TABLET FOR 75 MG TOTAL DAILY) metoprolol succinate ER (TOPROL XL) 50 mg 24 hr tablet metoprolol succinate ER 50 mg tablet,extended release 24 hr TAKE 1 TABLET BY MOUTH EVERY DAY rivaroxaban (XARELTO) 10 mg tablet Xarelto 10 mg tablet metFORMIN (GLUCOPHAGE) 1,000 mg tablet Take 1,000 mg by mouth twice daily. cholecalciferol (VITAMIN D3) 5,000 unit tab Vitamin D3 Refills(s) 0 Start Date: 07/27/21 Status: Ordered HYDROcodone-Acetaminophen 5-300 mg tab Take 1 tablet by mouth every 8 hours as needed for pain. methocarbamol (ROBAXIN) 500 mg tablet Take 500 mg by mouth four times daily. esomeprazole mag/glycerin (ESOMEP-EZS ORAL) Take by mouth. No current facility-administered medications for this visit. ALLERGIES: ALLERGIES No Known Allergies PHYSICAL EXAMINATION: Resp 20 Ht 5' 4 (1.63m) Wt 260 lb (117.9kg) BMI 44.61 kg/(m^2). General Appearance: Well appearing, alert, in no acute distress, well-hydrated, well nourished. and Obese Skin: Skin color, texture, turgor normal, no suspicious rashes or lesions. Psych: Patient is alert and oriented to person, time and place. Mood and affect are normal. Respiratory: Breathing is symmetric and unlabored Gait: The patient was examined in a wheelchair today. Extremities: Left lower extremity is examined. Skin is intact without erythema or surgical scar. There is mild swelling and tenderness at the ankle. There is also tenderness near the knee. There is no palpable mass. Gentle range of motion of the ankle is mildly painful for the patient. Lymphatic: There is no palpable lymphadenopathy Peripheral Pulses: Normal. Neurologic: Bilateral lower extremities were examined. There is 5/5 strength with hip flexion, knee extension, dorsiflexion, EHL, plantar flexion. Sensation intact in all nerve dermatomes IMAGES: Physician office building radiographs, 10/12/2021. AP, lateral and mortise views of the left ankle were obtained and reviewed. These demonstrate nondisplaced medial malleolus fracture. Overall alignment is stable. The talus is well centered near the plafond. There is no destructive lesion appreciable. Soft tissues otherwise unremarkable. Overall stable appearing follow-up radiographs. Plan ASSESSMENT AND PLAN: 1. Closed fracture of left ankle, initial encounter - ICD9: 824.8, ICD10: S82.892A Functional Plan: Patient is a 55-year-old female present follow-up evaluation of left ankle fracture sustained on 09/12/2021. Overall patient is doing well. For most part she is pain-free. Radiographs are stable. I discussed this with her at length. I will transition her to a walker boot. She is to remain nonweightbearing left lower extremity. She can come out of the walker boot several times a day to begin working on gentle range of motion exercises. I will see her back in 4 weeks for repeat evaluation and radiographs less issue should arise sooner. All of her questions were answered satisfactorily. She expressed understanding of and agreement with the treatment plan. Medical Decision Making: Problems: Moderate: Acute complicated injury Data: Unique test result(s) reviewed: 1 Unique test(s) ordered: 1 Risk: Low: Low risk from testing/treatment Medical Decision Making Level: 3 - Low Return in about 4 weeks (around 11/09/2021). Lilly Tony MD documented in this encounter [facility] 10-13-2021 Miscellaneous Notes Received voicemail from patient stating she is having worsening pain in her L foot after transitioning to a walking boot yesterday. Called patient who stated that she is having 10/10 pain inside her L heel. Patient took her boot off which makes the pain even worse, it also worsens when she elevates. Patient denies any swelling or bruising, cannot bear any weight. Patient has taken 1 [employer] about an hour ago and said it is not helping the pain at all. Advised I would send message to and call patient once direction is received. Patient understood and had no further questions. Filomena Madrigal October 13, 2021 11:23 AM documented in this encounter [facility] 09-22-2021 Note HNO ID: [id number] Author: Lilly Tony MD Service: ? Author Type: Physician Type: Progress Notes Filed: 09/22/2021 11:59 AM Note Text: ORTHOPAEDIC OFFICE NOTE CHIEF COMPLAINT: Left ankle pain HISTORY OF PRESENT ILLNESS: Elmer Ellis is a 55 year old female who presents for Evaluation of left ankle pain. Patient states that she fell 1 week ago from standing. She was unable to ambulate and presented to the emergency room. She was found to have a left ankle fracture and placed in a splint. Since that time she is had consistent pain that rates around 5/10 in intensity. She has been using a wheelchair to assist with ambulation and has been compliant with nonweightbearing status. She will occasionally take [place] [employer] for pain relief which is effective. She is also supplemented with fssn-nmq-pmivvbq pain medications. Her medical history significant for Beatties, coronary artery disease, diabetes and associated lower extremity neuropathy, DVT requiring Plavix and Xarelto for anticoagulation. She does think she has a clotting disorder but does not seem a iso coordinator. She also has kidney cancer that is being monitored. She endorses smoking 1 pack of cigarettes per day. She also uses marijuana which is helpful with pain control. She is on disability for chronic back and knee pain. She denies current fevers chills nausea vomiting weight loss fatigue or malaise. Reviewed nursing note and current pain scale. History reviewed. No pertinent past medical history. History reviewed. No pertinent surgical history. History reviewed. No pertinent family history. Social History Tobacco Use - Smoking status: Current Every Day Smoker Types: Cigarettes - Smokeless tobacco: Never Used Substance Use Topics - Alcohol use: Not Currently - Drug use: Yes Types: Marijuana MEDICATIONS: Current Outpatient Medications Medication Sig - DULoxetine (CYMBALTA) 60 mg capsule duloxetine 60 mg capsule,delayed release TAKE 1 CAPSULE BY MOUTH EVERY DAY - atorvastatin (LIPITOR) 80 mg tablet Take 80 mg by mouth once daily. - fexofenadine (LUZ) 180 mg tablet fexofenadine 180 mg tablet TAKE 1 TABLET BY MOUTH EVERY DAY - gabapentin (NEURONTIN) 300 mg capsule Take 600 mg by mouth twice daily. - MV with Cyg-Vzzhhfrd-Conxor (CENTRUM SILVER) 0.4 mg-300 mcg- 250 mcg tab Take by mouth. - insulin 75/25 lispro protamine/lispro units/mL (HUMALOG MIX 75-25,U-100,INSULN) 100 units/mL susp as directed. - HYDROcodone-acetaminophen (NORCO) 5-325 mg per tablet hydrocodone 5 mg-acetaminophen 325 mg tablet TAKE 1 TO 2 TABLETS BY MOUTH EVERY DAY AT BEDTIME NEEDED - hqhbgrem-qxn-hfce-FA-lutein (CENTRUM SILVER WOMEN) 8 mg iron-400 mcg-300 mcg tab - furosemide (LASIX) 40 mg tablet furosemide 40 mg tablet TAKE 1 AND 1/2 TABLETS BY MOUTH DAILY - clopidogrel (PLAVIX) 75 mg tablet clopidogrel 75 mg tablet TAKE 1 TABLET BY MOUTH EVERY DAY - metoprolol succinate ER (TOPROL XL) 25 mg 24 hr tablet metoprolol succinate ER 25 mg tablet,extended release 24 hr TAKE 1 TABLET BY MOUTH DAILY (ALONG WITH THE 50MG TABLET FOR 75 MG TOTAL DAILY) - metoprolol succinate ER (TOPROL XL) 50 mg 24 hr tablet metoprolol succinate ER 50 mg tablet,extended release 24 hr TAKE 1 TABLET BY MOUTH EVERY DAY - rivaroxaban (XARELTO) 10 mg tablet Xarelto 10 mg tablet - metFORMIN (GLUCOPHAGE) 1,000 mg tablet Take 1,000 mg by mouth twice daily. - cholecalciferol (VITAMIN D-3) 5,000 unit tab Vitamin D3 Refills(s) 0 Start Date: 07/27/21 Status: Ordered - HYDROcodone-Acetaminophen 5-300 mg tab Take 1 tablet by mouth every 8 hours as needed for pain. - methocarbamol (ROBAXIN) 500 mg tablet Take 500 mg by mouth four times daily. - esomeprazole mag/glycerin (ESOMEP-EZS ORAL) Take by mouth. - HYDROcodone-acetaminophen (NORCO) 5-325 mg per tablet Take 1 tablet by mouth every 8 hours as needed for pain for up to 7 days. No current facility-administered medications for this visit. ALLERGIES: ALLERGIES No Known Allergies PHYSICAL EXAMINATION: Resp 22 Ht 5' 4 (1.63m) Wt 260 lb 6.4 oz (118.1kg) BMI 44.68 kg/(m2). General Appearance: Well appearing, alert, in no acute distress, well-hydrated, well nourished. and Obese Skin: Skin color, texture, turgor normal, no suspicious rashes or lesions. Psych: Patient is alert and oriented to person, time and place. Mood and affect are normal. Respiratory: Breathing is symmetric and unlabored Gait: The patient was examined in a wheelchair today. Extremities: Left lower extremity is examined. Skin is intact without erythema or surgical scar. There is moderate swelling present at the ankle. There is associated tenderness palpation along the lateral medial aspect of the ankle. There is also tenderness near the knee. There is no palpable mass. Gentle range of motion of the ankle is moderately painful for the patient. Lymphatic: There is no palpable lymphadenopathy Peripheral Pulses (more content not included)... [facility] 09-16-2021 Miscellaneous Notes Called and spoke to patient regarding L ankle fracture OS 09/12/21. Patient was seen at [facility] ED after falling she fell in the shower. Patient injurred L knee and L ankle, only ankle if broken. Patient was splinted and is now using a wheelchair. Scheduled with Dr. Tony 09/21/21 3:00pm POB. Patient agreeable to appointment date, time and location. Filomena Madrigal September 16, 2021 10:18 AM ----- Message from Peggy Saxena sent at 09/15/2021 4:27 PM EDT ----- Regarding: Orthopedics / Open Ankle: Fracture Broken / Recent ED Visit Contact: Patient has been identified by name and Date of (Y/N): y Patient: Elmer Ellis Date of : 1965 Previous Provider Seen: n/a Body Part(s) Identified: Left Ankle Diagnosis/Reason For Visit: Left Ankle /knee / Fell Pain Reason for the call/escalation: Medial malleolar fracture Closed fracture of proximal end of left fibula, unspecified fracture morphology, initial encounter If reason for call/escalation is discharge from ED/ER or Hospital, which facility was the patient seen at: [facility] / 09.12.2021 Was an appointment scheduled (Y/N): n Person calling if other than patient: n Return call to if other than patient: n Best contact number: [phone] Thank you, Peggy Saxena September 15, 2021 4:27 PM documented in this encounter [facility] 07-27-2021 Hospital Discharg e instructions Patient Education 07/27/2021 10:20:06 Renal Mass Renal Mass A renal mass is a growth in the kidney. A renal mass may be found while performing an MRI, CT scan, or ultrasound for other problems of the abdomen. Certain types of cancers, infections, or injuries can cause a renal mass. A renal mass that is cancerous (malignant) may grow or spread quickly. Others are harmless (benign). What are common types of renal masses? Renal masses include: Tumors. These may be cancerous (malignant) or noncancerous (benign). ?The most common type of kidney cancer is renal cell carcinoma. ?The most common benign tumors of the kidney include renal adenomas, oncocytomas, and angiomyolipoma (AML). Cysts. These are fluid-filled sacs that form on or in the kidney. ?It is not always known what causes a cyst to develop in or on the kidney. ?Most kidney cysts do not cause symptoms and do not need to be treated. What type of testing might I need? Your health care provider may recommend that you have tests to diagnose the cause of your renal mass. The following tests may be done if a renal mass is found: Physical exam. Blood tests. Urine tests. Imaging tests, such as ultrasound, CT scan, or MRI. Biopsy. This is a small sample that is removed from the renal mass and tested in a lab. The exact tests and how often they are done will depend on: The size and appearance of the renal mass. Risk factors or medical conditions that increase your risk for problems. Any symptoms associated with the renal mass, or concerns that you have about it. Tests and physical exams may be done once, or they may be done regularly for a period of time. Tests and exams that are done regularly will help monitor whether the mass is growing and beginning to cause problems. What are common treatments for renal masses? Treatment is not always needed for this condition. Your health care provider may recommend careful monitoring (watchful waiting) and regular tests and exams. Treatment will depend on the cause of the mass. Follow these instructions at home: What you need to do at home will depend on the cause of the mass. Follow the instructions that your health care provider gives to you. In general: Take kttw-ugi-ahueqic and prescription medicines only as told by your health care provider. If you are prescribed an antibiotic medicine, take it as told by your health care provider. Do not stop taking the antibiotic even if you start to feel better. Follow any restrictions that are given to you by your health care provider. Keep all follow-up visits as told by your health care provider. This is important. ?You may need to see your health care provider once or twice a year to have CT scans and ultrasounds done. These tests will show if your renal mass has changed or grown bigger. Contact a health care provider if you: Have pain in the side or back (flank pain). Have a fever. Feel full soon after eating. Have pain or swelling in the abdomen. Lose weight. Get help right away if: Your pain gets worse. There is blood in your urine. You cannot urinate. You have chest pain. You have trouble breathing. Summary A renal mass is a growth in the kidney. It may be cancerous (malignant) and grow or spread quickly, or it may be harmless (benign). Renal masses may be found while performing an MRI, CT scan, or ultrasound for other problems of the abdomen. Your health care provider may recommend that you have tests to diagnose the cause of your renal mass. This may include a physical exam, blood tests, urine tests, imaging, or a biopsy. Treatment is not always needed for this condition. Careful monitoring (watchful waiting) may be recommended. This information is not intended to replace advice given to you by your health care provider. Make sure you discuss any questions you have with your health care provider. Document Released: 09/04/2014 Document Revised: 03/16/2018 Document Reviewed: 03/16/2018 [employer] Patient Education 2020 [employer]. 07/27/2021 10:06:53 Calorie Counting for Weight Loss Calorie Counting for Weight Loss Calories are units of energy. Your body needs a certain amount of calories from food to keep you going throughout the day. When you eat more calories than your body needs, your body stores the extra calories as fat. When you eat fewer calories than your body needs, your body bradley fat to get the energy it needs. Calorie counting means keeping track of how many calories you eat and drink each day. Calorie counting can be helpful if you need to lose weight. If you make sure to eat fewer calories than your body needs, you should lose weight. Ask your health care provider what a healthy weight is for you. For calorie counting to work, you will need to eat the right number of calories in a day in order to lose a healthy amount of weight per week. A dietitian can help you determine how many calories you need in a day and will give you suggestions on how to reach your calorie goal. A healthy amount of weight to lose per week is usually 1 2 lb (0.5 0.9 kg). This usually means that your daily calorie intake should be reduced by 500 750 calories. Eating 1,200 1,500 calories per day can help most women lose weight. Eating 1,500 1,800 calories per day can help most men lose weight. What is my plan? My goal is to have calories per day. If I have this many calories per day, I should lose around pounds per week. What do I need to know about calorie counting? In order to meet your daily calorie goal, you will need to: Find out how many calories are in each food you would like to eat. Try to do this before you eat. Decide how much of the food you plan to eat. Write down what you ate and how many calories it had. Doing this is called keeping a food log. To successfully lose weight, it is important to balance calorie counting with a healthy lifestyle that includes regular activity. Aim for 150 minutes of moderate exercise (such as walking) or 75 minutes of vigorous exercise (such as running) each week. Where do I find calorie information? The number of calories in a food can be found on a Nutrition Facts label. If a food does not have a Nutrition Facts label, try to look up the calories online or ask your dietitian for help. Remember that calories are listed per serving. If you choose to have more than one serving of a food, you will have to multiply the calories per serving by the amount of servings you plan to eat. For example, the label on a package of bread might say that a serving size is 1 slice and that there are 90 calories in a serving. If you eat 1 slice, you will have eaten 90 calories. If you eat 2 slices, you will have eaten 180 calories. How do I keep a food log? Immediately after each meal, record the following information in your food log: What you ate. Don't forget to include toppings, sauces, and other extras on the food. How much you ate. This can be measured in cups, ounces, or number of items. How many calories each food and drink had. The total number of calories in the meal. Keep your food log near you, such as in a small notebook in your pocket, or use a mobile jersey or website. Some programs will calculate calories for you and show you how many calories you have left for the day to meet your goal. What are some calorie counting tips? Use your calories on foods and drinks that will fill you up and not leave you hungry: ?Some examples of foods that fill you up are nuts and nut butters, vegetables, lean proteins, and high-fiber foods like whole grains. High-fiber foods are foods with more than 5 g fiber per serving. ?Drinks such as sodas, specialty coffee drinks, alcohol, and juices have a lot of calories, yet do not fill you up. Eat nutritious foods and avoid empty calories. Empty calories are calories you get from foods or beverages that do not have many vitamins or protein, such as candy, sweets, and soda. It is better to have a nutritious high-calorie food (such as an avocado) than a food with few nutrients (such as a bag of chips). Know how many calories are in the foods you eat most often. This will help you calculate calorie counts faster. Pay attention to calories in drinks. Low-calorie drinks include water and unsweetened drinks. Pay attention to nutrition labels for low fat or fat free foods. These foods sometimes have the same amount of calories or more calories than the full fat versions. They also often have added sugar, starch, or salt, to make up for flavor that was removed with the fat. Find a way of tracking calories that works for you. Get creative. Try different apps or programs if writing down calories does not work for you. What are some portion control tips? Know how many calories are in a serving. This will help you know how many servings of a certain food you can have. Use a measuring cup to measure serving sizes. You could also try weighing out portions on a kitchen scale. With time, you will be able to estimate serving sizes for some foods. Take some time to put servings of different foods on your favorite plates, bowls, and cups so you know what a serving looks like. Try not to eat straight from a bag or box. Doing this can lead to overeating. Put the amount you would like to eat in a cup or on a plate to make sure you are eating the right portion. Use smaller plates, glasses, and bowls to prevent overeating. Try not to multitask (for example, watch TV or use your computer) while eating. If it is time to eat, sit down at a table and enjoy your food. This will help you to know when you are full. It will also help you to be aware of what you are eating and how much you are eating. What are tips for following this plan? Reading food labels Check the calorie count compared to the serving size. The serving size may be smaller than what you are used to eating. Check the source of the calories. Make sure the food you are eating is high in vitamins and protein and low in saturated and trans fats. Shopping Read nutrition labels while you shop. This will help you make healthy decisions before you decide to purchase your food. Make a grocery list and stick to it. Cooking Try to cook your favorite foods in a healthier way. For example, try baking instead of frying. Use low-fat dairy products. Meal planning Use more fruits and vegetables. Half of your plate should be fruits and vegetables. Include lean proteins like poultry and fish. How do I count calories when eating out? Ask for smaller portion sizes. Consider sharing an entree and sides instead of getting your own entree. If you get your own entree, eat only half. Ask for a box at the beginning of your meal and put the rest of your entree in it so you are not tempted to eat it. If calories are listed on the menu, choose the lower calorie options. Choose dishes that include vegetables, fruits, whole grains, low-fat dairy products, and lean protein. Choose items that are boiled, broiled, grilled, or steamed. Stay away from items that are buttered, battered, fried, or served with cream sauce. Items labeled crispy are usually fried, unless stated otherwise. Choose water, low-fat milk, unsweetened iced tea, or other drinks without added sugar. If you want an alcoholic beverage, choose a lower calorie option such as a glass of wine or light beer. Ask for dressings, sauces, and syrups on the side. These are usually high in calories, so you should limit the amount you eat. If you want a salad, choose a garden salad and ask for grilled meats. Avoid extra toppings like ojeda, cheese, or fried items. Ask for the dressing on the side, or ask for olive oil and vinegar or lemon to use as dressing. Estimate how many servings of a food you are given. For example, a serving of cooked rice is cup or about the size of half a baseball. Knowing serving sizes will help you be aware of how much food you are eating at restaurants. The list below tells you how big or small some common portion sizes are based on everyday objects: ?1 oz 4 stacked dice. ?3 oz 1 deck of cards. ?1 tsp 1 . ?1 Tbsp a ping-pong ball. ?2 Tbsp 1 ping-pong ball. ? cup baseball. ?1 cup 1 baseball. Summary Calorie counting means keeping track of how many calories you eat and drink each day. If you eat fewer calories than your body needs, you should lose weight. A healthy amount of weight to lose per week is usually 1 2 lb (0.5 0.9 kg). This usually means reducing your daily calorie intake by 500 750 calories. The number of calories in a food can be found on a Nutrition Facts label. If a food does not have a Nutrition Facts label, try to look up the calories online or ask your dietitian for help. Use your calories on foods and drinks that will fill you up, and not on foods and drinks that will leave you hungry. Use smaller plates, glasses, and bowls to prevent overeating. This information is not intended to replace advice given to you by your health care provider. Make sure you discuss any questions you have with your health care provider. Document Released: 02/07/2006 Document Revised: 10/27/2018 Document Reviewed: 01/07/2017 [employer] Patient Education [employer] ([employer]). Follow Up Care 06/24/2021 14:48:04 With:VENKAT SAWYER, Jluis Jacinto, URL Address: [facility] [address], [place] [address]- [phone] When:01/26/2022 Comments:[address] scan [facility] Evaluation + Plan note Future Appointments Appointment Date:02/01/2022 11:15:00 AM Scheduled Provider:Jluis ROBLEDO MD Location:[facility] Appointment Type:URO Office Visit Diagnostic Tests PendingBUN 07/27/21Creatinine 07/27/21 [facility] Evaluation + Plan note [facility] Evaluation note Diagnosis Closed fracture of left ankle, initial encounter- Primary [facility] Diagnosis Renal mass- Primary Unspecified disorder of kidney and ureter documented in this encounter [facility] note* Diagnosis Renal mass, right- Primary Unspecified disorder of kidney and ureter Factor V Leiden (HCC) Primary hypercoagulable state Coronary artery disease involving [place] heart without angina pectoris, unspecified vessel or lesion type Smoker Tobacco use disorder Morbid obesity (HCC) Morbid obesity 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 mass Unspecified disorder of kidney and ureter [facility] Diagnosis Other specified disorders of kidney and ureter- Primary [facility] Phone: Evaluation note* Diagnosis Renal mass, right- Primary Unspecified disorder of kidney and ureter Family history of renal cancer Family history of malignant neoplasm of kidney Morbid obesity (HCC) Morbid obesity Current every day smoker Tobacco use disorder Other specified disorders of kidney and ureter [facility] Diagnosis Screening for genitourinary condition Screening for other and unspecified genitourinary condition [facility] Diagnosis Encounter for annual wellness visit (AWV) in Medicare patient- Primary Type 2 diabetes mellitus with diabetic neuropathy, with long-term current use of insulin (CMS/HCC) CAD in [place] artery ([facility]/HCC) Tobacco user Tobacco use disorder Malignant neoplasm of kidney, unspecified laterality ([facility]/HCC) Type 2 diabetes mellitus with insulin therapy ([facility]/HCC) Routine general medical examination at health care facility Routine general medical examination at a health care facility [facility] CAD in [place] artery (CMS/HCC)- Primary documented in this encounter [facility]* Diagnosis Acute non-recurrent sinusitis of other sinus- Primary [facility] Diagnosis Onset Date Resolution Status Iron deficiency anemia acute [facility] Work Phone: Evaluation note* Diagnosis Renal mass- Primary Unspecified disorder of kidney and ureter [facility] Diagnosis Other specified disorders of kidney and ureter- Primary Renal mass Unspecified disorder of kidney and ureter Morbid obesity (HCC) Morbid obesity Type 2 diabetes mellitus with diabetic neuropathy, with long-term current use of insulin (HCC) [facility] Narrative No data available for this section [facility] progress note No data available for this section [facility] reason for referral (narrative)* Diagnostic Procedure Only (Routine) - Pending Review Specialty Diagnoses / Procedures Referred By Contac t Referred To Contact XR IMAGING Diagnoses Closed fracture of left ankle, initial encounter Procedures XR ANKLE GENERAL 3V AP/LAT/OBL LEFT RADEX ANKLE COMPLETE MINIMUM 3 VIEWS Lilly Tony MD [address] [address] Xr Imaging Referral ID Status Reason Start Date Expiration Date Visits Requested Visits Authorized [id number] Pending Review Auto-Generat ed Referral 10/12/2021 11/11/2022 1 1 [facility] for referral (narrative) Referred by: VENKAT SAWYER, Jluis Jacinto [facility] Summary Purpose Family History No Family History Records Found Relationship Condition Age at Onset Recorded Date/T moi Not Specified Myocardial infarction Unknown Diabetes mellitus Unknown Hypertension Unknown sister Malignant neoplasm of lung Unknown father Diabetes mellitus Unknown Transient ischemic attack Unknown Advance Directives No Advanced Directives Records FoundDocuments on File Type Date Recorded 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 Advance Directive(s) 09/12/2021 2:13 PM Advance Directive Response Recorded Date/ Time Advance Directives No October 3:55pm Advance Directive Response Recorded Date/ Time Advance Directives No October 2:55pm Reason for Referral Specialty Diagnoses / Procedures Referred By April valdez Referred To Contact CT IMAGING Diagnoses Renal mass, right Other specified disorders of kidney and ureter Procedures CT KIDNEY WO/W IVCON CT ABDOMEN W & W/O CONTRAST Lex Pickens MD [address] [address] [address] Imaging [place] [address] Referral ID Status Reason Start Date Expiration Date Visits Requested Visits Authorized [id number] Pending Review Auto-Generat ed Referral 10/16/2022 11/15/2023 1 1 Specialty Diagnoses / Procedures Referred By April valdez Referred To Contact CT IMAGING Diagnoses Other specified disorders of kidney and ureter Procedures CT KIDNEY WO/W IVCON CT ABDOMEN W & W/O CONTRAST Judson Quiroga MD [address] [place] [address] Ct Imaging Referral ID Status Reason Start Date Expiration Date V isits Requested Visits Authorized [id number] Closed Auto-Generate d Referral 03/16/2022 04/15/2023 1 1 Chief Complaint and Reason for Visit Chief Complaint Anemia, Lower Hemogl obin Chief Complaint Anemia E11.40 Z79.4 Reason for Visit Iron deficiency anem ia Additional Source Comments INFORMATION SOURCE (unrecogn ized section and content) DATE CREATED AUTHOR [place] [facility] DATE CREATED AUTHOR AUTHOR'S ORGANIZ ATION 07/25/2021 [facility] DATE CREATED AUTHOR AUTHOR'S ORGANIZ ATION 11/22/2021 [facility] DATE CREATED AUTHOR AUTHOR'S ORGANIZ ATION 03/05/2022 [facility] DATE CREATED AUTHOR AUTHOR'S ORGANIZ ATION 06/25/2022 [facility] DATE CREATED AUTHOR AUTHOR'S ORGANIZ ATION 08/05/2022 [facility] DATE CREATED AUTHOR AUTHOR'S ORGANIZ ATION 06/16/2023 [facility] DATE CREATED AUTHOR AUTHOR'S ORGANIZ ATION 06/24/2023 [facility] DATE CREATED AUTHOR AUTHOR'S ORGANIZ ATION 07/08/2023 [facility] Source Comments (unrecognize d section and content) In the event this informatio n is protected by the Federal Confidentiality of Alcohol and Drug Abuse Patient Records regulations: The Federal rules restrict any use of the information to criminally investigate or prosecute any alcohol or drug abuse patient.[facility] the event this information is protected by the Federal Confidentiality of Alcohol and Drug Abuse Patient Records regulations: The Federal rules restrict any use of the information to criminally investigate or prosecute any alcohol or drug abuse patient.[facility] Hospital[facility] the event this information is protected by the Federal Confidentiality of Alcohol and Drug Abuse Patient Records regulations: The Federal rules restrict any use of the information to criminally investigate or prosecute any alcohol or drug abuse patient.[facility] Hospital[facility] the event this information is protected by the Federal Confidentiality of Alcohol and Drug Abuse Patient Records regulations: The Federal rules restrict any use of the information to criminally investigate or prosecute any alcohol or drug abuse patient.[facility] Hospital[facility] the event this information is protected by the Federal Confidentiality of Alcohol and Drug Abuse Patient Records regulations: The Federal rules restrict any use of the information to criminally investigate or prosecute any alcohol or drug abuse patient.[facility] Hospital[facility] the event this information is protected by the Federal Confidentiality of Alcohol and Drug Abuse Patient Records regulations: The Federal rules restrict any use of the information to criminally investigate or prosecute any alcohol or drug abuse patient.[facility] HospitalIn the event this information is protected by the Federal Confidentiality of Alcohol and Drug Abuse Patient Records regulations: The Federal rules restrict any use of the information to criminally investigate or prosecute any alcohol or drug abuse patient.[facility] Hospital[facility] the event this information is protected by the Federal Confidentiality of Alcohol and Drug Abuse Patient Records regulations: The Federal rules restrict any use of the information to criminally investigate or prosecute any alcohol or drug abuse patient.[facility] Hospital[facility] the event this information is protected by the Federal Confidentiality of Alcohol and Drug Abuse Patient Records regulations: The Federal rules restrict any use of the information to criminally investigate or prosecute any alcohol or drug abuse patient.[facility] HospitalIn the event this information is protected by the Federal Confidentiality of Alcohol and Drug Abuse Patient Records regulations: The Federal rules restrict any use of the information to criminally investigate or prosecute any alcohol or drug abuse patient.[facility] Reason for Visit (unrecogniz ed section and content) Reason Comments ER F/U Reason Comments Patient Update Reason Comments Established Patient Follow Up Reason Comments Orders CT Reason Comments Consult Reason Comments Follow Up Reason Comments Orders Care Teams (unrecognized sec tion and content) Compounding Scaler Relationship Specialty Start Date End Date Dawit Ba SrDavey PCP - General Family Practice 10/24/14 Compounding Scaler Relationship Specialty Start Date End Date Dawit Ba SrDavey PCP - General Family Practice 10/24/14 Compounding Scaler Relationship Specialty Start Date End Date Dawit Ba SrDavey PCP - General Family Practice 10/24/14 Compounding Scaler Relationship Specialty Start Date End Date Dawit Ba SrDavey PCP - General Family Medicine 10/24/14 Compounding Scaler Relationship Specialty Start Date End Date Dawit Ba SrDavey PCP - General Family Medicine 10/24/14 Compounding Scaler Relationship Specialty Start Date End Date Dawit Ba SrDavey PCP - General Family Medicine 10/24/14 Team Status: Active Member Role Status Dates Dawit Ba , DO Primary Care Provider Active Team Status: Inactive Member Role Status Dates Dawit Ba , DO Primary Care Provider Active Bebo Sims , DO Attending Provider Active Compounding Scaler Relationship Specialty Start Date End Date Mejia Dawit Aviles SrDavey PCP - General Family Medicine 10/24/14 Compounding Scaler Relationship Specialty Start Date End Date Dawit Ba Sr. PCP - General Family Medicine 10/24/14 Compounding Scaler Relationship Specialty Start Date End Date Ludin Blanchard MD PCP - General Family Medicine 10/06/22 Jenny Borrego NP [address] [place] [address] Nurse Practitioner Family Medicine 12/27/22 Compounding Scaler Relationship Specialty Start Date End Date Ludin Blanchard MD PCP - General Family Medicine 10/06/22 Jenny Borrego NP [address] [place] [phone] Nurse Practitioner Family Medicine 12/27/22 Compounding Scaler Relationship Specialty Start Date End Date Ludin Blanchard MD PCP - General Family Medicine 10/06/22 Jenny Borrego NP [address] [place] [phone] Nurse Practitioner Family Medicine 12/27/22 Team Status: Active Member Role Status Dates Jenny Borrego Primary Care Provider Active Team Status: Active Member Role Status Dates Dawit Ba DO Referring Provider Active Sta rt: April 13, 2023 Joanne Brown APRN Attending Provider Active Start: March Jenny Borrego Primary Care Provider Active Sta rt: April 13, 2023 Team Status: Inactive Member Role Status Dates Jenny Ortiz Salima Primary Care Provide r, Attending Provider Active Start: April 13, 2023 End: April 13, 2023 Compounding Scaler Relationship Specialty Start Date End Date Dawit Ba Sr., DO PCP - General Family Medicine 10/24/14 Compounding Scaler Relationship Specialty Start Date End Date Dawit Ba Sr., PCP - General Family Medicine 10/24/14 FOR RECORDS PERTAINING TO PATIENTS WHO ARE OR HAVE BEEN ENROLLED IN A CHEMICAL DEPENDENCY/SUBSTANCEABUSE PROGRAM, SOME INFORMATION MAY BE OMITTED. This clinical summary was aggregated from multiple sources. Caution should be exercised in using it in the provision of clinical care. This summary normalizes information from multiple sources, and as a consequence, information in this document may materially change the coding, format and clinical context of patient data. In addition, data may be omitted in some cases. CLINICAL DECISIONS SHOULD BE BASED ON THE PRIMARY CLINICAL RECORDS. [facility] [employer], [facility]. provides no warranty or guarantee of the accuracy or completeness of information in this document.
[2023-07-10 16:36] LABS: Basophils Absolute Auto 0.1 10^3/uL (0.0-0.1); Basophils Percent Auto 0.9 % (0.2-2.0); Eosinophils Absolute Auto 0.2 10^3/uL (0.0-0.7); Hematocrit 44.9 % (36.0-48.0); Hemoglobin 14.4 g/dL (12.0-16.0); Immature Granulocytes Abs Auto 0.15 10^3/uL (0.00-0.03); Immature Granulocytes Pct Auto 1.5 % (0.0-0.5); Lymphocytes Absolute Auto 2.9 10^3/uL (1.2-3.8); Lymphocytes Percent Auto 28.6 % (20.5-60.0); Mean Corpuscular HGB Conc 32.1 g/dL (29.9-35.2); Mean Corpuscular Hemoglobin 30.1 pg (26.7-34.0); Mean Corpuscular Volume 93.7 fL (81.0-99.0); Mean Platelet Volume 11.5 fL (9.5-13.5); Monocytes Absolute Auto 0.7 10^3/uL (0.3-0.8); Monocytes Percent Auto 7.2 % (1.7-12.0); Neutrophils Percent Auto 59.8 % (43.0-75.0); Platelet Count 182 10^3/uL (150-450); Red Blood Count 4.79 10^6/uL (4.20-5.40); Red Cell Distribution Width 13.4 % (11.0-15.0)
[2023-07-10 16:46] LABS: Alanine Aminotransferase 26 U/L (14-59); Albumin Globulin Ratio 0.8; Albumin Level 3.1 g/dL (3.4-5.0); Alkaline Phosphatase 204 U/L (46-116); Aspartate Amino Transferase 9 U/L (15-37); BUN Creatinine Ratio 15.6; Bilirubin Total 0.3 mg/dL (0.2-1.0); Calcium 8.9 mg/dL (8.5-10.1); Carbon Dioxide 30.1 mmol/L (21.0-32.0); Chloride 101 mmol/L (98-107); D Dimer 0.31 mg/L FEU (<=0.59); Estimated GFR (African America 55 (>=60); Estimated GFR (Non-African Ame 45 (>=60); Glucose 256 mg/dL (74-106); Potassium 4.1 mmol/L (3.5-5.1); Sodium 139 mmol/L (136-145); Total Protein 7.1 g/dL (6.4-8.2)
[2023-07-10 16:50] LABS: INR 0.97; Prothrombin Time 10.3 sec (9.0-11.6)
[2023-07-10 17:00] VITALS: BP 101/43; PULSE 68; O2SAT 95
--- NOTE | 2023-07-10 17:49 | ED_ITS ---
HPI - Extremity Problem General Chief complaint: Extremity Injury, Lower Stated complaint: Lower Extremity Pain Time Seen by Provider: 07/10/23 16:01 Source: patient Mode of arrival: walk-in Limitations: no limitations History of Present Illness HPI Narrative: The patient presented to us with a posterior foot pain that been going on at least for the last 3 days, she mentioned that she have a history of DVT and she was concerned about the, she is actively still taking her anticoagulation, the patient also mentioned that the pain goes up to her calf area, but it feels mostly behind her right foot Related Data Home Medications ?Medication ?Instructions ?Recorded ?Confirmed atorvastatin 80 mg tablet 80 mg PO DAILY 07/10/23 07/10/23 cetirizine 10 mg tablet (Allergy 10 mg PO DAILY 07/10/23 07/10/23 Relief (cetirizine)) clopidogrel 75 mg tablet 75 mg PO DAILY 07/10/23 07/10/23 dapagliflozin propanediol 10 mg 10 mg PO DAILY 07/10/23 07/10/23 tablet (Farxiga) duloxetine 30 mg capsule,delayed 30 mg PO .hs 07/10/23 07/10/23 release duloxetine 60 mg capsule,delayed 60 mg PO .am 07/10/23 07/10/23 release ferrous sulfate 325 mg (65 mg 325 mg PO DAILY 07/10/23 07/10/23 iron) tablet fluticasone propionate 50 1 spray intranasal Q12H 07/10/23 07/10/23 mcg/actuation nasal spray,suspension folic acid 1 mg tablet 1 mg PO DAILY 07/10/23 07/10/23 furosemide 40 mg tablet 40 mg PO .am 07/10/23 07/10/23 insulin aspar prot-insulin aspart 1 unit subcut ACHS 07/10/23 07/10/23 100 unit/mL (70-30) subcutaneous pen (Novolog Mix 70-30FlexPen U-100) metformin 1,000 mg tablet mg 07/10/23 methocarbamol 500 mg tablet 500 mg PO BID 07/10/23 07/10/23 metoprolol succinate 50 mg 50 mg PO DAILY 07/10/23 07/10/23 tablet,extended release 24 hr pantoprazole 40 mg tablet,delayed 40 mg PO DAILY 07/10/23 07/10/23 release pregabalin 100 mg capsule 100 mg PO Q8H 07/10/23 07/10/23 rivaroxaban 10 mg tablet (Xarelto) 10 mg PO Q24H 07/10/23 07/10/23 Allergies Allergy/AdvReac Type Severity Reaction Status Date / Time No Known Drug Allergies Allergy Verified 07/10/23 15:59 Review of Systems ROS Status of ROS 10 or more systems reviewed and unremark able except as noted in history and below Exam Narrative Exam Narrative: Nurses notes and vital signs reviewed and patient is not hypoxic. General: Well-appearing and in no apparent distress. Skin: Warm, dry, no pallor noted. No rash. Head: Normocephalic, atraumatic. Neck: Supple, non-tender. Eye: Pupils are equal, round and EOMI. No scleral icterus. Ears, Nose, Mouth, and Throat: TM are clear, no nasal mucosal hypertrophy. Oral mucosa is moist, no posterior oropharynx erythema, uvula is mid-line Cardiovascular: Regular Rate and Rhythm without murmur, gallop or rub. Respiratory: No accessory muscle use or respiratory distress. Lungs are clear to auscultation, no wheezing, rales or rhonchi Chest Wall: no tenderness Back: No midline thoracic or lumbar vertebral tenderness. No CVA tenderness Musculoskeletal: normal ROM, no calf or popliteal tenderness, , the patient have tenderness upon palpation of the Achilles area on the right side she is still able to ambulate with pain GI: Abdomen is soft, non-distended. Normal bowel sounds. No masses appreciated. No tenderness to palpation. No rebound, guarding, or rigidity noted. Neurological: A&O x4. No cranial nerve dysfunction observed. No truncal ataxia. Moves all extremities. Sensation intact. Psychiatric: Cooperative and interactive. Normal mood and affect. Constitutional Vital Signs, click to edit/add: Last Vital Signs Temp 98.3 F 07/10/23 15:59 Pulse 68 07/10/23 17:00 Resp 18 07/10/23 17:00 BP 101/43 L 07/10/23 17:00 Pulse Ox 95 07/10/23 17:00 O2 Del Method Room Air 07/10/23 15:59 Course Vital Signs Vital signs: Vital Signs Temperature 98.3 F 07/10/23 15:59 Pulse Rate 72 07/10/23 15:59 Respiratory Rate 18 07/10/23 15:59 Blood Pressure 119/81 07/10/23 15:59 Pulse Oximetry 97 07/10/23 15:59 Oxygen Delivery Method Room Air 07/10/23 15:59 Temperature 98.3 F 07/10/23 15:59 Pulse Rate 68 07/10/23 17:00 Respiratory Rate 18 07/10/23 17:00 Blood Pressure 101/43 L 07/10/23 17:00 Pulse Oximetry 95 07/10/23 17:00 Oxygen Delivery Method Room Air 07/10/23 15:59 MDM - Extremity (Nontraumatic) MDM Narrative Medical decision making narrative: Right now the patient had a CBC chemistry as well as D-dimer to rule out DVT and the D-dimer is not positive The patient had an x-ray that shows generalized swelling Right now the patient will be provided with a walking boot and referred to podiatry as outpatient. Elevation and rest The patient is to follow up with primary care physician in next 2-3 days or to return to the emergency department should any of the signs or symptoms worsen or new symptoms develop. The patient agrees with the following Diagnosis and Treatment plan and the patient will be discharged home. Lab Data Labs: Lab Results 07/10/23 Range/Units 16:22 WBC 10.0 (4.0-11.0) 10^3/uL RBC 4.79 (4.20-5.40) 10^6/uL Hgb 14.4 (12.0-16.0) g/dL Hct 44.9 (36.0-48.0) % MCV 93.7 (81.0-99.0) fL MCH 30.1 (26.7-34.0) pg MCHC 32.1 (29.9-35.2) g/dL RDW 13.4 (11.0-15.0) % Plt Count 182 (150-450) 10^3/uL MPV 11.5 (9.5-13.5) fL Neut % (Auto) 59.8 (43.0-75.0) % Lymph % (Auto) 28.6 (20.5-60.0) % [place] % (Auto) 7.2 (1.7-12.0) % Eos % (Auto) 2.0 (0.9-7.0) % Baso % (Auto) 0.9 (0.2-2.0) % Neut # (Auto) 6.0 (1.4-6.5) 10^3/uL Lymph # (Auto) 2.9 (1.2-3.8) 10^3/uL [place] # (Auto) 0.7 (0.3-0.8) 10^3/uL Eos # (Auto) 0.2 (0.0-0.7) 10^3/uL Baso # (Auto) 0.1 (0.0-0.1) 10^3/uL Abs Immat Gran (auto) 0.15 H (0.00-0.03) 10^3/uL Imm/Tot Granulo (auto) 1.5 H (0.0-0.5) % PT 10.3 (9.0-11.6) sec INR 0.97 D-Dimer 0.31 (<=0.59) mg/L FEU Sodium 139 (136-145) mmol/L Potassium 4.1 (3.5-5.1) mmol/L Chloride 101 (98-107) mmol/L Carbon Dioxide 30.1 (21.0-32.0) mmol/L Anion Gap 12.0 BUN 19.0 H (7.0-18.0) mg/dL Creatinine 1.22 H (0.55-1.02) mg/dL Est GFR ( Amer) 55 L (>=60) Est GFR (Non-Af Amer) 45 L (>=60) BUN/Creatinine Ratio 15.6 Glucose 256 H (74-106) mg/dL Calcium 8.9 (8.5-10.1) mg/dL Total Bilirubin 0.3 (0.2-1.0) mg/dL AST 9 L (15-37) U/L ALT 26 (14-59) U/L Alkaline Phosphatase 204 H (46-116) U/L Total Protein 7.1 (6.4-8.2) g/dL Albumin 3.1 L (3.4-5.0) g/dL Globulin 4.0 g/dL Albumin/Globulin Ratio 0.8 Discharge Plan Discharge Stand Alone Forms: Portal Instructions Chief Complaint: Extremity Injury, Lower Clinical Impression: Achilles bursitis Qualifiers: Laterality: right Qualified Code(s): M76.61 - Achilles tendinitis, right leg Patient Disposition: Home, Self-Care Time of Disposition Decision: 17:50 Condition: Good Prescriptions / Home Meds: No Action atorvastatin 80 mg tablet 80 mg PO DAILY cetirizine [Allergy Relief (cetirizine)] 10 mg tablet 10 mg PO DAILY clopidogrel 75 mg tablet 75 mg PO DAILY dapagliflozin propanediol [Farxiga] 10 mg tablet 10 mg PO DAILY duloxetine 30 mg capsule,delayed release(DR/EC) 30 mg PO .hs duloxetine 60 mg capsule,delayed release(DR/EC) 60 mg PO .am ferrous sulfate 325 mg (65 mg iron) tablet 325 mg PO DAILY fluticasone propionate 50 mcg/actuation spray,suspension 1 spray INTRANASAL Q12H folic acid 1 mg tablet 1 mg PO DAILY furosemide 40 mg tablet 40 mg PO .am metformin 1,000 mg tablet insulin asp prt-insulin aspart [Novolog Mix 70-30FlexPen U-100] 100 unit/mL (70-30) insulin pen 1 unit SUBCUT ACHS Rx Instructions: sliding scale methocarbamol 500 mg tablet 500 mg PO BID pregabalin 100 mg capsule 100 mg PO Q8H Xarelto 10 mg tablet 10 mg PO Q24H pantoprazole 40 mg tablet,delayed release (DR/EC) 40 mg PO DAILY metoprolol succinate 50 mg tablet extended release 24 hr 50 mg PO DAILY Print Language: [place] Instructions: Achilles Tendinitis (ED) Referrals: Jenny Borrego NP [Primary Care Provider] - 1 week Krzysztof Galicia DPM [Physician] - 1 week
[2023-07-10 18:07] VITALS: BP 126/72; PULSE 74; O2SAT 99
== END 2023-07-10 18:08 | disposition home or self-care (01) ==
PROVIDERS: Emergency Provider Emergency Medicine; PCP Nurse Practitioner
DX: M76.61 Achilles tendinitis, right leg (principal); Z79.899 Other long term (current) drug therapy; Z79.84 Long term (current) use of oral hypoglycemic drugs; Z79.4 Long term (current) use of insulin; Z86.718 Personal history of other venous thrombosis and embolism
CPT/HCPCS: 36415; 73610; 80053; 85025; 85378; 85610; 99284

== ENCOUNTER 2023-09-08 11:30 | Outpatient (OUT) | payer MEDICARE, MEDICAID, SELFPAY ==
--- NOTE | 2023-09-08 | VEIN_ITS ---
The [address] [address] Patient Name: ELMER ELLIS MRN: [id number] date: 1965 Sex: F Assigned Patient Location: Current Patient Location: Accession/Order Number: [id number] Exam Date: 09/08/2023 11:30 Report Date: 09/12/2023 13:32 At the request of: MALIK NI Procedure: VC Ankle Brachial Index EXAM: VC Ankle Brachial Index HISTORY: I73.9 COMPARISON: None. FINDINGS: Segmental pressures presented as follows (right, left) in mmHg. Brachial: 124, 126 DPA: 100, 134 SUPERVISOR PUBLICATIONS: 85, 134 1st Toe: 57, 144 [place]: 0.79, 1.06 TBI: 0.45, 1.14 The [place] demonstrates mild arterial disease on the right, normal on the left The TBI demonstrates moderate ischemia on the right, normal on the left VEIN/VC Ankle Brachial Index IMPRESSION: [place] demonstrates mild right arterial disease, normal left Electronically authenticated by: GIL CHAN Date: 09/12/2023 13:32
--- OUTSIDE RECORDS SUMMARY | 2023-09-08 11:49 | XMS_ITS | CCD ---
Author Organization [facility] InformFormerly [facility] Care Team Providers Care Rn Cardiovascular Name Role Phone Dawit Ba Primary Care Physician [place] Sr., Dawit Aviles Primary Care Provider [place] Sr., Dawit Aviles Primary Care Provider ANDOVER SR, DAWIT AVILES Primary Care Unavai lable HOUSE SR, DAWIT MADI Primary Care Unavai lable LILLY TONY Attending Unavailable TONY, LILLY Attending Unavailable HOUSE SR, DAWIT [facility] Care Unavai lable HOUSE SR, DAWIT [facility] Care UnavaLILLY Phan Attending Unavailable MD Jluis ROBLEDO Attending Unavailable House, Dawit Hong Referring Unavail able MD Jluis ROBLEDO Attending Unavailable [place] Sr., Dawit Aviles Primary Care Provider DO Dawit Ba Primary Care Provider [phone] DO Bebo Sims Attending Provider HOUSE, DR PRITCHETT Attending Unavailable ANDOVER, DR PRITCHETT Consulting Unavailable ANDOVER, DR PRITCHETT Primary Care Unavailable ANDOVER, DR PRITCHETT Admitting Unavailable ANDOVER, DR PRITCHETT Attending Unavailable HOUSE, DR PRITCHETT Consulting Unavailable ANDOVER, DR PRITCHETT Primary Care Unavailable HOUSE, DR PRITCHETT Admitting Unavailable HOUSE, DR PRITCHETT Primary Care Unavailable VENKAT ., DR KING Attending Unavailable ROBLEDO ., DR KING Consulting Unavailable ROBLEDO ., DR KING Admitting Unavailable [facility], DR MICHOACANO Jacinto Consulting Unavailable ANDOVER, DR PRITCHETT Attending Unavailable HOUSE, DR PRITCHETT Primary Care Unavailable ANDOVER, DR PRITCHETT Admitting Unavailable Ludin Blanchard MD Primary Care Provider Salima SHEET METAL ERECTOR, Jenny Unavailable DO Dawit Ba Referring Provider [phone] CJ Brown Attending Provider Jenny Borrego Primary Care Provider [phone] Jenny Borrego Attending Provider House Sr., Dawit US Primary Care Prov [...] WALESKA Mccray Attending Unavailable APLING, WALESKA Mccray Referring Unavailable AICHHOLJuany, JENNY Attending Unavailable DATLISETTE Attending Unavailable APLING, WALESKA Mccray Referring Unavailable BELLAHHOLJuany, JENNY Attending Unavailable Joanne Brown Attending Unavail able Jenny Borrego Primary Care Unavailable Dawit Ba Referring Unavailable Joanne Brown Admitting Unavail able MALIK NI Attending Unavailable Allergies Allergy Classification Reported Allergen(s) Allergy Type Date of Onset Reaction(s) Facility (1 source) Gluten Drug allergy (disorder) [facility] (1 source) Wheat preparation Drug Allergy [facility] (1 source) Misc-Food; Translations: [Misc-Food] Food allergy (disorder) [facility] Medications Current Medications Medication Drug Class(es) [...] Gluc Sensor (FreeStyle Joelle 2 Sensor) misc USE TO TEST BLOOD SUGAR 4 TIMES [...] duloxetine 60 mg Cap-DR (2 sources) Start: 07-28-19 take 1 mg by mouth once daily duloxetine 60 mg Cap-DR mg, Oral, Daily, Refills(s) 0 Start Date: 07/27/21 Status: Ordered esomeprazole mag/glycerin (ESOMEP-EZS ORAL) (9 sources) esomeprazole mag/glycerin (ESOMEP-EZS ORAL) Take by mouth. 0 Active Comment on above: Take by mouth. ferrous sulfate 325 mg oral tablet (6 sources) Start: 06-03-19 23 take 325 mg by mouth once daily Ferrous Sulfate Active 325 MG PO Daily June 01, 2022 11:00pm Luz (13 sources) Histamine-1 Receptor Antagonist Start: 07-28-19 22 Luz Oral, Refills(s) 0 Start Date: 07/27/21 [...] 11:00pm Start: 08-25-2021 take 2 capsules by m out twice daily gabapentin (NEURONTIN) 300 mg capsule Take 600 mg by mouth twice daily. 0 08/25/2021 Active Start: 07-27-2021 take 1 capsule by mo [facility] twice daily gabapentin 300 mg Cap 300 [...] mg oral tablet (11 sources) Biguanide Start: 2 take 1 tablet by mouth twice daily metFORMIN (GLUCOPHAGE) 1,000 mg tablet Take 1,000 mg by mouth twice daily. 0 09/13/2021 Active Comment on above: Take 1,000 mg by [facility] twice daily. methocarbamol 500 mg oral tablet [...] (Centrum Silver 50+Women) tablet Orally 0 Active tezgsdax-xfn-pnfg-FA- lutein (CENTRUM SILVER WOMEN) 8 mg iron-400 mcg-300 mcg tab (9 sources) uwgbyhhc-esh-uvh n-FA -lutein (CENTRUM SILVER WOMEN) 8 mg iron-400 mcg-300 mcg tab MV with Iut-Hqlvnmsf-Sysdbi (CENTRUM SILVER) 0.4 mg-300 mcg- 250 mcg tab (9 sources) Start: 07-28-19 22 MV with Mth-Ftdscyrs-Pzczok (CENTRUM SILVER) 0.4 mg-300 mcg- 250 mcg [...] (17 sources) Factor Xa Inhibitor Start: 07-28-19 rivaroxaban (XARELTO) 10 mg tablet Xarelto 10 mg tablet 0 07/27/2021 Active Comment on above: Xarelto 10 mg tablet Vitamin D3 (2 sources) Start: 07-28-19 Vitamin D3 Refills(s) 0 Start Date: 07/27/21 [...] tablet (4 sources) Aluminum Complex Start: 06-03-19 End: 03-24-19 24 take 1 g by [...] Coronary arteriosclerosis; Translations: [Atherosclerotic heart disease of [place] coronary artery without angina pectoris] Onset: 0 Chronic Deficiency and other anemia (1 source) Iron deficiency anemia secondary to blood loss (chronic); Translations: [Iron deficiency anemia secondary to blood loss (chronic)] Onset: 4 Chronic Deficiency and other anemia (1 source) Iron deficiency anemia; Translations: [Iron deficiency anemia, unspecified] 03-09-2023 Episodic Deficiency and other anemia (1 source) Iron deficiency anemia, unspecified; Translations: [Iron deficiency anemia, unspecified] 04-13-2023 Episodic Diabetes mellitus with complications (20 sources) Type 2 diabetes mellitus with diabetic neuropathy, unspecified; Translations: [Type 2 diabetes mellitus] Onset: 3 Resolved: 4 Chronic Diabetes mellitus without complication (12 sources) Diabetes mellitus; Translations: [Type 2 diabetes mellitus] Onset: 3 07-27-2021 Chronic Disorders of lipid metabolism (10 sources) Hypertriglyceridemia; Translations: [Pure hyperglyceridemia] Onset: 0 02-02-2023 Chronic Fluid and electrolyte disorders (1 source) Other disorders of electrolyte and fluid balance, not elsewhere classified; Translations: [OTHER D/O ELECTROLYTE AND FL BAL NEC] Onset: 3 Episodic Fracture of lower limb (4 sources) Closed fracture of left ankle; Translations: [Other fracture of left lower leg, initial encounter for closed fracture] Onset: 2 Episodic Genitourinary symptoms and ill-defined conditions (8 [...] [Chronic cough] Onset: 3 02-02-2023 Episodic Other lower respiratory disease (2 sources) Shortness of breath; Translations: [Shortness of breath] Onset: 4 Episodic Other nervous system disorders (4 sources) Neuropathy; Translations: [Polyneuropathy, unspecified] Onset: 3 02-02-2023 Chronic Other nutritional; endocrine; and metabolic disorders (9 sources) Morbid obesity; Translations: [Morbid (severe) obesity due to excess calories] Onset: 3 Chronic Other nutritional; endocrine; and metabolic disorders (4 sources) Severe obesity; Translations: [Morbid (severe) obesity due to excess calories] Onset: 3 02-02-2023 Chronic Other nutritional; endocrine; and metabolic disorders (2 sources) Morbid (severe) obesity due to excess calories; Translations: [Morbid (severe) obesity due to excess calories] Onset: 3 Chronic Other screening for suspected conditions (not mental disorders or infectious disease) (9 sources) Patient encounter status; Translations: [Encounter for screening for other disorder] Onset: 3 10-15-2022 Episodic Other upper respiratory infections (2 sources) Acute sinusitis; Translations: [Other acute sinusitis] Onset: 4 04-05-2023 Episodic Peripheral and visceral atherosclerosis (6 sources) Intermittent claudication; Translations: [Peripheral vascular disease, unspecified] Onset: 0 02-02-2023 Chronic Phlebitis; thrombophlebitis and thromboembolism (6 sources) H/O: Deep vein thrombosis; Translations: [Personal history of other venous thrombosis and embolism] Onset: 0 02-02-2023 Episodic Residual codes; unclassified (4 sources) Obstructive sleep [...] bronchus and lung] Onset: 3 02-02-2023 Episodic Residual codes; unclassified (2 sources) Localized edema; Translations: [Localized edema] Onset: 4 Episodic Spondylosis; intervertebral disc disorders; other back problems (1 source) Other intervertebral disc degeneration, lumbosacral region; Translations: [OTH IV DISC DEGEN LUMBOSACRAL RGN] Onset: 2 Chronic Spondylosis; intervertebral disc disorders; other back problems (4 sources) Chronic back pain ; Translations: [Dorsalgia, unspecified] Onset: 3 02-02-2023 Episodic Substance-related disorders (14 sources) Smoker; Translations: [Nicotine dependence, unspecified, uncomplicated] Onset: 3 Resolved: 4 10-09-2020 Chronic Comment on above: Added secondary [...] unspecified] Onset: 02-02-2023 Resolved: 03-24-2023 03-24-2023 Chronic Pneumonia (except that caused by tuberculosis or sexually transmitted disease) (4 sources) Pneumonia; Translations: [Pneumonia, unspecified organism] Onset: 02-02-2023 Resolved: 03-24-2023 03-24-2023 Episodic Residual codes; unclassified (6 sources) Tobacco user; Translations: [Tobacco use] Onset: 04-19-2022 03-24-2023 Episodic Results Test Name Value Interpretation Reference Range Facility Office Visiton 08-18-2023 Follow-up visit [id number] Sarah Ellis 1965 F Date Provider Department Center 08/18/2023 MALIK CLAUDIO Family History Problem Relation Age of Onset Diabetes Mother Heart attack Mother Other Mother Coronary artery disease Mother Diabetes Father Coronary artery disease Father Heart attack Maternal Grandfather Family Status - Relation Status Age at Mother Father Maternal Grandfather Level of Service:59364 [place] OFFICE/OUTPATIENT ESTABLISHED MOD MDM 30 MIN Normal [facility] Complete Blood Count Auto Di ffon 07-07-2023 Basophils (Bld) [#/Vol] 0.1 10*3/uL Normal 0.0-0.2 [facility] Comment on above: Result Comment: PERF ORMED BY: [place] [address] PATHOLOGIST BOATBUILDER WOOD YU ACOSTA M.D. Performed By: #### C BC, CMP, FE and TIBC, JAQUELINE, [id number] #### [address] #### METH, EPO #### [facility] , Basophils/100 WBC (Bld) 0.6 % Normal . [facility] Comment on above: Performed By: #### C BC, CMP, FE and TIBC, JAQUELINE, [id number] #### [address] #### METH, EPO #### [facility] , Eosinophils (Bld) [#/Vol] 0.2 10*3/uL Normal 0.0-0.45 [facility] Comment on above: Performed By: #### C BC, CMP, FE and TIBC, JAQUELINE, [id number] #### [address] #### METH, EPO #### [facility] , Eosinophils/100 WBC (Bld) 1.8 % Normal . [facility] Comment on above: Performed By: #### C BC, CMP, FE and TIBC, JAQUELINE, [id number] #### [address] #### METH, EPO #### [facility] , Erythrocyte distribution width (RBC) [Ratio] 14.8 % Normal 11.9-15.3 [facility] Comment on above: Performed By: #### C BC, CMP, FE and TIBC, JAQUELINE, [id number] #### [address] #### METH, EPO #### [facility] , Hematocrit (Bld) [Volume fraction] 43.6 % Normal 34.0-46.4 [facility] Comment on above: Performed By: #### C BC, CMP, FE and TIBC, JAQUELINE, [id number] #### [place] [address] [place] #### METH, EPO #### [facility] , Hemoglobin (Bld) [Mass/Vol] 14.4 g/dL Normal 11.8-15.4 [facility] Comment on above: Performed By: #### C BC, CMP, FE and TIBC, JAQUELINE, [id number] #### [address] #### METH, EPO #### [facility] , Lymphocytes (Bld) [#/Vol] 2.7 10*3/uL Normal 1.00-4.8 [facility] Comment on above: Performed By: #### C BC, CMP, FE and TIBC, JAQUELINE, [id number] #### [place] [address] [place] #### METH, EPO #### [facility] , Lymphocytes/100 WBC (Bld) 24.7 % Normal . [facility] Comment on above: Performed By: #### C BC, CMP, FE and TIBC, JAQUELINE, [id number] #### [place] [address] [place] #### METH, EPO #### [facility] , MCH (RBC) [Entitic mass] 30.5 pg Normal 24.7-34.3 [facility] Comment on above: Performed By: #### C BC, CMP, FE and TIBC, JAQUELINE, [id number] #### [place] [address] [place] #### METH, EPO #### [facility] , MCV (RBC) [Entitic vol] 92.1 fL Normal 80-100 [facility] Comment on above: Performed By: #### C BC, CMP, FE and TIBC, JAQUELINE, [id number] #### [address] #### METH, EPO #### [facility] , Mean Corpuscular HGB Conc 33.1 g/dL Normal 32.0-35.0 [facility] Comment on above: Performed By: #### C BC, CMP, FE and TIBC, JAQUELINE, [id number] #### [place] [address] [place] #### METH, EPO #### [facility] , Monocytes (Bld) [#/Vol] 0.6 10*3/uL Normal 0.0-0.8 [facility] Comment on above: Performed By: #### C BC, CMP, FE and TIBC, JAQUELINE, [id number] #### [place] [address] [place] #### METH, EPO #### [facility] , Monocytes/100 WBC (Bld) 5.3 % Normal . [facility] Comment on above: Performed By: #### C BC, CMP, FE and TIBC, JAQUELINE, [id number] #### [place] [address] [place] #### METH, EPO #### [facility] , Neutrophils (Bld) [#/Vol] 7.5 10*3/uL Normal 1.8-7.7 [facility] Comment on above: Performed By: #### C BC, CMP, FE and TIBC, JAQUELINE, [id number] #### [address] #### METH, EPO #### [facility] , Neutrophils/100 WBC (Bld) 67.6 % Normal . [facility] Comment on above: Performed By: #### C BC, CMP, FE and TIBC, JAQUELINE, [id number] #### [place] [address] [place] #### METH, EPO #### [facility] , NRBC% 0.1 /100{WBC} Normal 0-0.5 [facility] Comment on above: Performed By: #### C BC, CMP, FE and TIBC, JAQUELINE, [id number] #### [address] #### METH, EPO #### [facility] , Platelet mean volume (Bld) [Entitic vol] 9.7 fL Normal 6.3-10.7 [facility] Comment on above: Performed By: #### C BC, CMP, FE and TIBC, JAQUELINE, [id number] #### [place] [address] [place] #### METH, EPO #### [facility] , Platelets (Bld) [#/Vol] 169 10*3/uL Normal 150-450 [facility] Comment on above: Performed By: #### C BC, CMP, FE and TIBC, JAQUELINE, [id number] #### [place] [address] [place] #### METH, EPO #### [facility] , RBC (Bld) [#/Vol] 4.73 10*6/uL Normal 3.60-5.00 [facility] Comment on above: Performed By: #### C BC, CMP, FE and TIBC, JAQUELINE, [id number] #### [place] [address] [place] #### METH, EPO #### [facility] , WBC (Bld) [#/Vol] 11.0 10*3/uL Normal 3.8-11.6 [facility] Comment on above: Performed By: #### C BC, CMP, FE and TIBC, JAQUELINE, [id number] #### [address] #### METH, EPO #### [facility] , Comprehensive Metabolic Pane mikki 07-07-2023 Albumin [Mass/Vol] 3.8 g/dL Normal 3.5-5.7 [facility] Comment on above: Performed By: #### C BC, CMP, FE and TIBC, JAQUELINE, [id number] #### [place] [address] [place] #### METH, EPO #### [facility] , Albumin/Globulin [Mass ratio] 1.4 {ratio} Normal [facility] Comment on above: Performed By: #### C BC, CMP, FE and TIBC, JAQUELINE, [id number] #### [place] [address] [place] #### METH, EPO #### [facility] , ALP [Catalytic activity/Vol] 167 U/L High 34-104 [facility] Comment on above: Performed By: #### C BC, CMP, FE and TIBC, JAQUELINE, [id number] #### [place] [address] [place] #### METH, EPO #### [facility] , ALT [Catalytic activity/Vol] 21 U/L Normal 7-52 [facility] Comment on above: Performed By: #### C BC, CMP, FE and TIBC, JAQUELINE, [id number] #### [place] [address] [place] #### METH, EPO #### [facility] , Anion gap [Moles/Vol] 13.5 mmol/L Normal 6.0-15.0 [facility] Comment on above: Performed By: #### C BC, CMP, FE and TIBC, JAQUELINE, [id number] #### [place] [address] [place] #### METH, EPO #### [facility] , AST [Catalytic activity/Vol] 15 U/L Normal 13-39 [facility] Comment on above: Performed By: #### C BC, CMP, FE and TIBC, JAQUELINE, [id number] #### [place] [address] [place] #### METH, EPO #### [facility] , Bilirubin [Mass/Vol] 0.4 mg/dL Normal 0.3-1.0 [facility] Comment on above: Performed By: #### C BC, CMP, FE and TIBC, JAQUELINE, [id number] #### [place] [address] [place] #### METH, EPO #### [facility] , Calcium [Mass/Vol] 8.6 mg/dL Normal 8.6-10.3 [facility] Comment on above: Performed By: #### C BC, CMP, FE and TIBC, JAQUELINE, [id number] #### [place] [address] [place] #### METH, EPO #### [facility] , Chloride [Moles/Vol] 102 mmol/L Normal 98-107 [facility] Comment on above: Performed By: #### C BC, CMP, FE and TIBC, JAQUELINE, [id number] #### [place] [address] [place] #### METH, EPO #### [facility] , CO2 [Moles/Vol] 26.8 mmol/L Normal 21.0-31.0 [facility] Comment on above: Performed By: #### C BC, CMP, FE and TIBC, JAQUELINE, [id number] #### [place] [address] [place] #### METH, EPO #### [facility] , Creatinine [Mass/Vol] 1.18 mg/dL Normal 0.60-1.20 [facility] Comment on above: Performed By: #### C BC, CMP, FE and TIBC, JAQUELINE, [id number] #### [place] [address] [place] #### METH, EPO #### [facility] , Creatinine Clr Calc Pharmacy 65.67 Normal [facility] Comment on above: Performed By: #### C BC, CMP, FE and TIBC, JAQUELINE, [id number] #### [place] [address] [place] #### METH, EPO #### [facility] , GFR/1.73 sq M.predicted MDRD (S/P/Bld) [Vol rate/Area] 53.873 mL/min/{1.73_m2} Normal [facility] Comment on above: Performed By: #### C BC, CMP, FE and TIBC, JAQUELINE, [id number] #### [place] [address] [place] #### METH, EPO #### [facility] , Globulin (S) [Mass/Vol] 2.8 g/dL Normal [facility] Comment on above: Performed By: #### C BC, CMP, FE and TIBC, JAQUELINE, [id number] #### [facility] [address] [place] [address] [place] #### METH, EPO #### [facility] , Glucose [Mass/Vol] 215 mg/dL High 70-100 [facility] Comment on above: Result Comment: [place] Glucose Reference Range is dependent on time and content of last meal. Glucose of more than 200 mg/dL in a nonstressed, ambulatory subject supports the diagnosis of Diabetes Mellitus. ADA recommended reference range Performed By: #### C BC, CMP, FE and TIBC, JAQUELINE, [id number] #### [place] [address] [place] #### METH, EPO #### [facility] , Potassium [Moles/Vol] 4.3 mmol/L Normal 3.5-5.1 [facility] Comment on above: Performed By: #### C BC, CMP, FE and TIBC, JAQUELINE, [id number] #### [place] [address] [place] #### METH, EPO #### [facility] , Protein [Mass/Vol] 6.6 g/dL Normal 6.4-8.9 [facility] Comment on above: Performed By: #### C BC, CMP, FE and TIBC, JAQUELINE, [id number] #### [place] [address] [place] #### METH, EPO #### [facility] , Sodium [Moles/Vol] 138 mmol/L Normal 136-145 [facility] Comment on above: Performed By: #### C BC, CMP, FE and TIBC, JAQUELINE, [id number] #### [place] [address] [place] #### METH, EPO #### [facility] , Urea nitrogen [Mass/Vol] 21 mg/dL Normal 7-25 [facility] Comment on above: Performed By: #### C BC, CMP, FE and TIBC, JAQUELINE, [id number] #### [place] [address] [place] #### METH, EPO #### [facility] , Erythropoetin (EPO), Serumon 07-07-2023 Erythropoetin (EPO), Serum 23.3 m[iU]/mL High 2.6-18.5 [facility] Comment on above: Result Comment: LOFTY UniCel DxI 800 Immunoassay System Values obtained with different assay methods or kits cannot be used interchangeably. Results cannot be interpreted as absolute evidence of the presence or absence of malignant disease. Performed at: [address] [id number] Microbiology Supervisor: Hieu Willams PhD, Phone: [phone] PERFORMED BY: [place] [address] PATHOLOGIST BOATBUILDER WOOD YU ACOSTA M.D. Performed By: #### C BC, CMP, FE and TIBC, JAQUELINE, [id number] #### [address] #### METH, EPO #### [facility] , Ferritinon 07-07-2023 Ferritin [Mass/Vol] 154.7 ng/mL Normal 11.0-306.8 [facility] Comment on above: Performed By: #### C BC, CMP, FE and TIBC, JAQUELINE, [id number] #### [address] #### METH, EPO #### [facility] , Iron and TIBC Profileon 06-21 % Iron Saturation 33.9 % Normal 20-50 [facility] Comment on above: Performed By: #### C BC, CMP, FE and TIBC, JAQUELINE, [id number] #### [address] #### METH, EPO #### [facility] , Iron [Mass/Vol] 84 ug/dL Normal 50-212 [facility] Comment on above: Performed By: #### C BC, CMP, FE and TIBC, JAQUELINE, [id number] #### [place] [address] [place] #### METH, EPO #### [facility] , Total Iron Binding Capacity 248 ug/dL Low 255-450 [facility] Comment on above: Performed By: #### C BC, CMP, FE and TIBC, JAQUELINE, [id number] #### [place] [address] [place] #### METH, EPO #### [facility] , Transferrin [Mass/Vol] 177 mg/dL Low 203-362 [facility] Comment on above: Performed By: #### C BC, CMP, FE and TIBC, JAQUELINE, [id number] #### [address] #### METH, EPO #### [facility] , Methylmalonic Acidon 024 Methylmalonic Acid 202 Normal 0-378 [facility] Comment on above: Result Comment: This test was developed and its performance characteristics determined by [facility]. It has not been cleared or approved by the Food and Drug Administration. Performed at: [address] [id number] Microbiology Supervisor: Amara Coyne MD, Phone: [phone] Performed By: #### C BC, CMP, FE and TIBC, JAQUELINE, [id number] #### [place] [address] [place] #### METH, EPO #### [facility] , Vit. B12/Folate Profileon Cobalamin (Vitamin B12) [Mass/Vol] 493 pg/mL Normal 180-914 [facility] Comment on above: Performed By: #### C BC, CMP, FE and TIBC, JAQUELINE, [id number] #### [place] [address] [place] #### METH, EPO #### [facility] , Folate 30.0 ng/mL Normal >5.9 [facility] Comment on above: Result Comment: Sherry te reference range: >5.9 ng/ml The WHO technical consultation on folate and vitamin b12 deficiencies has determined that folate concentrations less than 4 ng/ml are considered deficient. PERFORMED BY: [facility] [address] [place] [address] PATHOLOGIST BOATBUILDER WOOD YU ACOSTA M.D. Performed By: #### C BC, CMP, FE and TIBC, JAQUELINE, [id number] #### [facility] [address] [place] [address] [place] #### METH, EPO #### [facility] , CREATININE BLDon 05-17-2023 Creatinine [Mass/Vol] 1.19 mg/dL High 0.58-0.96 [facility] Comment on above: Order Comment: Speci men Type: BLOOD SPECIMEN Ordering Facility: [facility] Address: [address] [place] [address] Performed By: #### C RET1 #### [facility] CLIA [id number] [address] [place] [address] Creatinine and Glomerular filtration rate.predicted panel (S/P/Bld) 53 mL/min/1.73m??? Low >=60 [facility] Comment on above: Order Comment: Speci men Type: BLOOD SPECIMEN Ordering Facility: [facility] Address: [address] [place] [address] Result Comment: Terri mated Glomerular Filtration Rate [...] GFR. Performed By: #### C RET1 #### [facility] CLIA [id number] [address] [place] [address] CT KIDNEY WO/W IVCONon 05-16 CT KIDNEY WO/W IVCON * * *Final Report* * * DATE OF EXAM: May 17 2023 2:01PM [facility] 0546 - CT KIDNEY WO/W [...] or blastic osseous abnormality. Lower thorax: Unremarkable. Technical Administrative Assistant (topogram) images: No additional findings. IMPRESSION: 1. Since 10/07/2022, continued mild increase in size of a 3.7 cm right renal neoplasm (previously 3.4 cm). 2. Patent renal veins and inferior vena cava. No abdominal metastatic disease. Transcribe Date/Time: May 17 2023 2:49P Dictated by: TARSHA TURK MD This examination was interpreted and the report reviewed and electronically signed by: TARSHA TURK MD on May 17 2023 4:15PM EST Thank you for allowing us to participate in the care of your patient. Should there be any questions regarding this interpretation, please call [phone]. If you are unable to reach us at the number above, please feel free to contact [facility] eRadiology at [phone]. [id number] Normal [facility] CNPNon 04-28-2023 CNPN Telephone (HEMTSA) ELMER ELLIS ([id number]) 1965 F Date Time Provider Department 04/28/23 ANGIE MCCLELLAN HEMTSA During your visit today, we recorded the following information about you: Josie Leong RN 04/28/2023 12:16 PM Signed Please sign pended Cre for upcoming CT. Pt needs updated lab before CT can be done Thank You! Josie Leong RN Allergies As of Date: 04/28/2023 (No Known Allergies) Date Reviewed: 10/15/2022 Reviewed by: Angie Mcclellan, POWER GENERATION TURBINE ROOM OPERATOR.MARKETING PROPOSAL SPECIALIST - Fully Assessed Reason for Visit: Orders [681] Primary Visit Diagnosis:Renal mass [N28.89] Order(s):CREATININE BLD [SQCRET] Order #: [id number] FUTURE Prescriptions as of 04/28/2023 - DULoxetine [...] by mouth twice daily. - MV with Vby-Zhkcrbjk-Wacqjk (CENTRUM SILVER) 0.4 mg-300 mcg- 250 mcg tab Take by mouth. - insulin 75/25 lispro protamine/lispro units/mL (HUMALOG MIX 75-25,U-100,INSULN) 100 units/mL susp as directed. - HYDROcodone-acetaminophen (NORCO) 5-325 mg per tablet hydrocodone 5 mg-acetaminophen 325 mg tablet TAKE 1 TO 2 TABLETS BY MOUTH EVERY DAY AT BEDTIME NEEDED - mazwrkor-tgw-bkuj-FA-lutein (CENTRUM SILVER WOMEN) 8 mg iron-400 mcg-300 [...] (HCC) [D68.51] 04/19/2022 Coronary artery disease involving [place] heart *04/19/2022 Smoker [F17.200] 04/19/2022 Morbid obesity (HCC) [E66.01] 04/19/2022 Other specified disorders of kidney and ureter *04/19/2022 Encounter Status:Closed by ANGIE MCCLELLAN on 04/28/23 Normal [facility] A1C with Estimated Average G dwight 04-13-2023 Glucose [Mass/Vol] 189 mg/dL Normal [facility] Comment on above: Result Comment: PERF ORMED BY: [place] [address] PATHOLOGIST BOATBUILDER WOOD YU ACOSTA M.D. Performed By: #### C BC, CMP, FE and TIBC, JAQUELINE, [id number] #### [address] #### METH, EPO #### [facility] , HbA1c (Bld) [Mass fraction] 8.2 % High 4.3-5.6 [facility] Comment on above: Result Comment: Incr eased risk for diabetes: 5.7 - 6.4 diabetes: >6.4 glycemic control for adults with diabetes: <7.0 Performed By: #### C BC, CMP, FE and TIBC, JAQUELINE, [id number] #### [address] #### METH, EPO #### [facility] , Alanine aminotransferase [En zymatic activity/volume] in Serum or PlasmaOrdered By: Lilly Christianson on 04-13-2023 ALT [Catalytic activity/Vol] 40 U/L Normal 7- [facility] Comment on above: Performed By: #### C BC, CMP, FE and TIBC, JAQUELINE, [id number] #### [facility] [address] [place] [address] [place] #### METH, EPO #### [facility] , Albumin [Mass/volume] in Ser um or Plasma by Bromocresol green (BCG) dye binding methoOrdered By: Lilly Christianson on 04-13-2023 Albumin BCG dye [Mass/Vol] 3.9 g/dL 3.5-5.7 [facility] Alkaline phosphatase [Enzyma tic activity/volume] in Serum or PlasmaOrdered By: Lilly Christianson on 04-13-2023 ALP [Catalytic activity/Vol] 182 U/L High 34-104 [facility] Comment on above: Performed By: #### C BC, CMP, FE and TIBC, JAQUELINE, [id number] #### [facility] [address] [place] [address] [place] #### METH, EPO #### [facility] , Aspartate aminotransferase [ Enzymatic activity/volume] in Serum or PlasmaOrdered By: Lilly Christianson on 04-13-2023 AST [Catalytic activity/Vol] 22 U/L Normal 13-39 [facility] Comment on above: Performed By: #### C BC, CMP, FE and TIBC, JAQUELINE, [id number] #### [facility] [address] [place] [address] [place] #### METH, EPO #### [facility] , Automated basophil %Ordered By: Lilly Christianson on 04-13-2023 Basophils/100 WBC (Bld) 0.9 % Normal . [facility] Comment on above: Performed By: #### C BC, CMP, FE and TIBC, JAQUELINE, [id number] #### [facility] [address] [place] [address] [place] #### METH, EPO #### [facility] , Automated basophil countOrde red By: Lilly Christianson on 04-13-2023 Basophils (Bld) [#/Vol] 0.1 10*3/uL Normal 0.0-0.2 [facility] Comment on above: Result Comment: PERF ORMED BY: [place] [address] PATHOLOGIST BOATBUILDER [employer]OD YU ACOSTA M.D. Performed By: #### C BC, CMP, FE and TIBC, JAQUELINE, [id number] #### [address] #### METH, EPO #### [facility] , Automated blood monocyte cou ntOrdered By: Lilly Christianson on 04-13-2023 Monocytes (Bld) [#/Vol] 0.8 10*3/uL Normal 0.0-0.8 [facility] Comment on above: Performed By: #### C BC, CMP, FE and TIBC, JAQUELINE, [id number] #### [place] [address] [place] #### METH, EPO #### [facility] , Automated eosinophil %Ordere d By: Lilly Christianson on 04-13-2023 Eosinophils/100 WBC (Bld) 2.9 % Normal . [facility] Comment on above: Performed By: #### C BC, CMP, FE and TIBC, JAQUELINE, [id number] #### [place] [address] [place] #### METH, EPO #### [facility] , Automated eosinophil countOr dered By: Lilly Christianson on 04-13-2023 Eosinophils (Bld) [#/Vol] 0.3 10*3/uL Normal 0.0-0.45 [facility] Comment on above: Performed By: #### C BC, CMP, FE and TIBC, JAQUELINE, [id number] #### [place] [address] [place] #### METH, EPO #### [facility] , Automated monocyte %Ordered By: Lilly Christianson on 04-13-2023 Monocytes/100 WBC (Bld) 7.4 % Normal . [facility] Comment on above: Performed By: #### C BC, CMP, FE and TIBC, JAQUELINE, [id number] #### [address] #### METH, EPO #### [facility] , Automated neutrophil %Ordere d By: Lilly Christianson on 04-13-2023 Neutrophils/100 WBC (Bld) 65.0 % Normal . [facility] Comment on above: Performed By: #### C BC, CMP, FE and TIBC, JAQUELINE, [id number] #### [address] #### METH, EPO #### [facility] , Bilirubin.total [Mass/volume ] in Serum or PlasmaOrdered By: Lilly Christianson on 04-13-2023 Bilirubin [Mass/Vol] 0.3 mg/dL Normal 0.3-1.0 [facility] Comment on above: Performed By: #### C BC, CMP, FE and TIBC, JAQUELINE, [id number] #### [place] [address] [place] #### METH, EPO #### [facility] , Calcium [Mass/volume] in Ser um or PlasmaOrdered By: Lilly Christianson on 04-13-2023 Calcium [Mass/Vol] 8.9 mg/dL Normal 8.6-10.3 [facility] Comment on above: Performed By: #### C BC, CMP, FE and TIBC, JAQUELINE, [id number] #### [place] [address] [place] #### METH, EPO #### [facility] , Carbon dioxide, total [Moles /volume] in Serum or PlasmaOrdered By: Lilly Christianson on 04-13-2023 CO2 [Moles/Vol] 30.8 mmol/L Normal 21.0-31.0 [facility] Comment on above: Performed By: #### C BC, CMP, FE and TIBC, JAQUELINE, [id number] #### [place] [address] [place] #### METH, EPO #### [facility] , Chloride [Moles/volume] in S jigar or PlasmaOrdered By: Lilly Christianson on 04-13-2023 Chloride [Moles/Vol] 100 mmol/L Normal 98-107 [facility] Comment on above: Performed By: #### C BC, CMP, FE and TIBC, JAQUELINE, [id number] #### [address] #### METH, EPO #### [facility] , Complete Blood Count Auto Di ffon 04-13-2023 Mean Corpuscular HGB Conc 33.1 g/dL Normal 32.0-35.0 [facility] Comment on above: Performed By: #### C BC, CMP, FE and TIBC, JAQUELINE, [id number] #### [place] [address] [place] #### METH, EPO #### [facility] , NRBC% 0.1 /100{WBC} Normal 0-0.5 [facility] Comment on above: Performed By: #### C BC, CMP, FE and TIBC, JAQUELINE, [id number] #### [place] [address] [place] #### METH, EPO #### [facility] , Comprehensive Metabolic Pane mikki 04-13-2023 Albumin [Mass/Vol] 3.9 g/dL Normal 3.5-5.7 [facility] Comment on above: Performed By: #### C BC, CMP, FE and TIBC, JAQUELINE, [id number] #### [place] [address] [place] #### METH, EPO #### [facility] , Creatinine Clr Calc Pharmacy 58.71 Normal [facility] Comment on above: Performed By: #### C BC, CMP, FE and TIBC, JAQUELINE, [id number] #### [place] [address] [place] #### METH, EPO #### [facility] , GFR/1.73 sq M.predicted MDRD (S/P/Bld) [Vol rate/Area] 47.091 mL/min/{1.73_m2} Normal [facility] Comment on above: Performed By: #### C BC, CMP, FE and TIBC, JAQUELINE, [id number] #### [address] #### METH, EPO #### [facility] , Creatinine [Mass/volume] in Serum or PlasmaOrdered By: Lilly Christianson on 04-13-2023 Creatinine [Mass/Vol] 1.32 mg/dL High 0.60-1.20 [facility] Comment on above: Performed By: #### C BC, CMP, FE and TIBC, JAQUELINE, [id number] #### [place] [address] [place] #### METH, EPO #### [facility] , Erythrocyte distribution wid th [Ratio] by Automated countOrdered By: Lilly Christianson on 04-13-2023 Erythrocyte distribution width (RBC) [Ratio] 15.6 % High 11.9-15.3 [facility] Comment on above: Performed By: #### C BC, CMP, FE and TIBC, JAQUELINE, [id number] #### [place] [address] [place] #### METH, EPO #### [facility] , Erythrocytes [#/volume] in B lood by Automated countOrdered By: Lilly Christianson on 02-21-2024 RBC (Bld) [#/Vol] 4.91 10*6/uL Normal 3.60-5.00 [facility] Comment on above: Performed By: #### C BC, CMP, FE and TIBC, JAQUELINE, [id number] #### [address] #### METH, EPO #### [facility] , Erythropoetin (EPO), Serumon 04-13-2023 Erythropoetin (EPO), Serum 29.5 m[iU]/mL High 2.6-18.5 [facility] Comment on above: Result Comment: [employer]-Mobile DxI 800 Immunoassay System Values obtained with different assay methods or kits cannot be used interchangeably. Results cannot be interpreted as absolute evidence of the presence or absence of malignant disease. Performed at: [address] [id number] Microbiology Supervisor: Hieu Willams PhD, Phone: [phone] PERFORMED BY: [place] [address] PATHOLOGIST BOATBUILDER [employer] YU ACOSTA M.D. Performed By: #### C BC, CMP, FE and TIBC, JAQUELINE, [id number] #### [address] #### METH, EPO #### [facility] , Ferritin [Mass/volume] in Se rum or PlasmaOrdered By: Lilly Christianson on 04-13-2023 Ferritin [Mass/Vol] 102.5 ng/mL Normal 11.0-306.8 [facility] Comment on above: Performed By: #### C BC, CMP, FE and TIBC, JAQUELINE, [id number] #### [place] [address] [place] #### METH, EPO #### [facility] , Folate [Mass/volume] in Seru m or PlasmaOrdered By: Lilly Christianson on 04-13-2023 Folate [Mass/Vol] 4.7 ng/mL >5.9 [facility] Comment on above: Folate reference ran ge: >5.9 ng/mlThe WHO technical consultation on folate and vitamin [id number] has determined that folate concentrations lessthan 4 ng/ml are considered deficient. Glucose [Mass/volume] in Ser um or PlasmaOrdered By: Lilly Christianson on 04-13-2023 Glucose [Mass/Vol] 242 mg/dL High 70-100 [facility] Comment on above: ADA recommended refe rence rangeRandom Glucose Reference Range is dependent on time and content of last meal. Glucose of more than 200 mg/dL in a nonstressed, ambulatory subject supports the diagnosis of Diabetes Mellitus. Result Comment: [place] om Glucose Reference Range is dependent on time and content of last meal. Glucose of more than 200 mg/dL in a nonstressed, ambulatory subject supports the diagnosis of Diabetes Mellitus. ADA recommended reference range Performed By: #### C BC, CMP, FE and TIBC, JAQUELINE, [id number] #### [place] [address] [place] #### METH, EPO #### [facility] , Hematocrit [Volume Fraction] of Blood by Automated countOrdered By: Lilly Christianson on 04-13-2023 Hematocrit (Bld) [Volume fraction] 44.7 % Normal 34.0-46.4 [facility] Comment on above: Performed By: #### C BC, CMP, FE and TIBC, JAQUELINE, [id number] #### [place] [address] [place] #### METH, EPO #### [facility] , Hemoglobin [Mass/volume] in BloodOrdered By: Lilly Christianson on 04-13-2023 Hemoglobin (Bld) [Mass/Vol] 14.8 g/dL Normal 11.8-15.4 [facility] Comment on above: Performed By: #### C BC, CMP, FE and TIBC, JAQUELINE, [id number] #### [place] [address] [place] #### METH, EPO #### [facility] , Iron [Mass/volume] in Serum or PlasmaOrdered By: Lilly Christianson on 04-13-2023 Iron [Mass/Vol] 129 ug/dL Normal 50-212 [facility] Comment on above: Performed By: #### C BC, CMP, FE and TIBC, JAQUELINE, [id number] #### [facility] [address] [place] [address] [place] #### METH, EPO #### [facility] , Iron and TIBC Profileon 03-25 % Iron Saturation 50.0 % Normal 20-50 [facility] Comment on above: Performed By: #### C BC, CMP, FE and TIBC, JAQUELINE, [id number] #### [facility] [address] [place] [address] [place] #### METH, EPO #### [facility] , Total Iron Binding Capacity 258 ug/dL Normal 255-450 [facility] Comment on above: Performed By: #### C BC, CMP, FE and TIBC, JAQUELINE, [id number] #### [facility] [address] [place] [address] [place] #### METH, EPO #### [facility] , Iron binding capacity [Mass/ volume] in Serum or PlasmaOrdered By: Lilly Christianson on 04-13-2023 Iron binding capacity [Mass/Vol] 258 ug/dL 255-450 [facility] Iron saturation [Mass Fracti on] in Serum or PlasmaOrdered By: Lilly Christianson on 04-13-2023 Iron saturation [Mass fraction] 50.0 % 20-50 [facility] Leukocytes [#/volume] correc nikki for nucleated erythrocytes in Blood by Automated counOrdered By: Lilly Christianson on 04-13-2023 WBC corrected for nucl RBC Auto (Bld) [#/Vol] 10.9 10*3/uL 3.8-11.6 [facility] Leukocytes [#/volume] in Blo od by Automated countOrdered By: Lilly Christianson on 04-13-2023 WBC (Bld) [#/Vol] 10.9 10*3/uL Normal 3.8-11.6 [facility] Comment on above: Performed By: #### C BC, CMP, FE and TIBC, JAQUELINE, [id number] #### [place] [address] [place] #### METH, EPO #### [facility] , Lymphocytes [#/volume] in Bl ood by Automated countOrdered By: Lilly Christianson on 04-13-2023 Lymphocytes (Bld) [#/Vol] 2.6 10*3/uL Normal 1.00-4.8 [facility] Comment on above: Performed By: #### C BC, CMP, FE and TIBC, JAQUELINE, [id number] #### [place] [address] [place] #### METH, EPO #### [facility] , Lymphocytes/100 leukocytes i n Blood by Automated countOrdered By: Lilly Christianson on 04-13-2023 Lymphocytes/100 WBC (Bld) 23.8 % Normal . [facility] Comment on above: Performed By: #### C BC, CMP, FE and TIBC, JAQUELINE, [id number] #### [place] [address] [place] #### METH, EPO #### [facility] , MCH [Entitic mass] by Automa nikki countOrdered By: Lilly Christianson on 04-13-2023 MCH (RBC) [Entitic mass] 30.1 pg Normal 24.7-34.3 [facility] Comment on above: Performed By: #### C BC, CMP, FE and TIBC, JAQUELINE, [id number] #### [place] [address] [place] #### METH, EPO #### [facility] , MCHC Auto (RBC) [Mass/Vol]Or dered By: Lilly Christianson on 04-13-2023 MCHC (RBC) [Mass/Vol] 33.1 g/dL 32.0-35.0 [facility] MCV [Entitic volume] by Auto mated countOrdered By: Lilly Christianson on 04-13-2023 MCV (RBC) [Entitic vol] 90.9 fL Normal 80-100 [facility] Comment on above: Performed By: #### C BC, CMP, FE and TIBC, JAQUELINE, [id number] #### [facility] [address] [place] [address] [place] #### METH, EPO #### [facility] , Methylmalonic Acidon 024 Methylmalonic Acid 321 Normal 0-378 [facility] Comment on above: Result Comment: This test was developed and its performance characteristics determined by [employer]. It has not been cleared or approved by the Food and Drug Administration. Performed at: [address] [id number] Microbiology Supervisor: Amara Coyne MD, Phone: [phone] Performed By: #### C BC, CMP, FE and TIBC, JAQUELINE, [id number] #### [facility] [address] [place] [address] [place] #### METH, EPO #### [facility] , Neutrophils [#/volume] in Bl ood by Automated countOrdered By: Lilly Christianson on 04-13-2023 Neutrophils (Bld) [#/Vol] 7.1 10*3/uL Normal 1.8-7.7 [facility] Comment on above: Performed By: #### C BC, CMP, FE and TIBC, JAQUELINE, [id number] #### [facility] [address] [place] [address] [place] #### METH, EPO #### [facility] , No Panel InformationOrdered By: Lilly Christianson on 04-13-2023 Estimated GFR (CKD-EPI) 47.091 mL/Min [facility] Creatinine Clearance (Chem 58.71 [facility] Nucleated erythrocytes [Pres ence] in Blood by Automated countOrdered By: Lilly Christianson on 04-13-2023 Nucleated RBC Auto Ql (Bld) 0.1 /100{WBC} 0-0.5 [facility] Platelet mean volume [Entiti c volume] in Blood by Automated countOrdered By: Lilly Christianson on 04-13-2023 Platelet mean volume (Bld) [Entitic vol] 9.4 fL Normal 6.3-10.7 [facility] Comment on above: Performed By: #### C BC, CMP, FE and TIBC, JAQUELINE, [id number] #### [address] #### METH, EPO #### [facility] , Platelets [#/volume] in Bloo d by Automated countOrdered By: Lilly Christianson on 04-13-2023 Platelets (Bld) [#/Vol] 187 10*3/uL Normal 150-450 [facility] Comment on above: Performed By: #### C BC, CMP, FE and TIBC, JAQUELINE, [id number] #### [place] [address] [place] #### METH, EPO #### [facility] , Potassium [Moles/volume] in Serum or PlasmaOrdered By: Lilly Christianson on 04-13-2023 Potassium [Moles/Vol] 4.8 mmol/L Normal 3.5-5.1 [facility] Comment on above: Performed By: #### C BC, CMP, FE and TIBC, JAQUELINE, [id number] #### [place] [address] [place] #### METH, EPO #### [facility] , Protein [Mass/volume] in Ser um or PlasmaOrdered By: Lilly Christianson on 04-13-2023 Protein [Mass/Vol] 6.5 g/dL Normal 6.4-8.9 [facility] Comment on above: Performed By: #### C BC, CMP, FE and TIBC, JAQUELINE, [id number] #### [place] [address] [place] #### METH, EPO #### [facility] , Serum globulin measurement b y calculation (mass/volume)Ordered By: Lilly Christianson on 04-13-2023 Globulin (S) [Mass/Vol] 2.6 g/dL [facility] Comment on above: Performed By: #### C BC, CMP, FE and TIBC, JAQUELINE, [id number] #### [place] [address] [place] #### METH, EPO #### [facility] , Serum or plasma albumin/glob ulin mass ratioOrdered By: Lilly Christianson on 04-13-2023 Albumin/Globulin [Mass ratio] 1.5 {ratio} [facility] Comment on above: Performed By: #### C BC, CMP, FE and TIBC, JAQUELINE, [id number] #### [place] [address] [place] #### METH, EPO #### [facility] , Serum or plasma anion gap de terminationOrdered By: Lilly Christianson on 04-13-2023 Anion gap [Moles/Vol] 12.0 mmol/L Normal 6.0-15.0 [facility] Comment on above: Performed By: #### C BC, CMP, FE and TIBC, JAQUELINE, [id number] #### [place] [address] [place] #### METH, EPO #### [facility] , Sodium [Moles/volume] in Ser um or PlasmaOrdered By: Lilly Christianson on 04-13-2023 Sodium [Moles/Vol] 138 mmol/L Normal 136-145 [facility] Comment on above: Performed By: #### C BC, CMP, FE and TIBC, JAQUELINE, [id number] #### [place] [address] [place] #### METH, EPO #### [facility] , Transferrin [Mass/volume] in Serum or PlasmaOrdered By: Lilly Christianson on 04-13-2023 Transferrin [Mass/Vol] 184 mg/dL Low 203-362 [facility] Comment on above: Performed By: #### C BC, CMP, FE and TIBC, JAQUELINE, [id number] #### [facility] [address] [place] [address] [place] #### METH, EPO #### [facility] , Urea nitrogen [Mass/volume] in Serum or PlasmaOrdered By: Lilly Christianson on 04-13-2023 Urea nitrogen [Mass/Vol] 19 mg/dL Normal 7-25 [facility] Comment on above: Performed By: #### C BC, CMP, FE and TIBC, JAQUELINE, [id number] #### [facility] [address] [place] [address] #### METH, EPO #### [facility] , Vit. B12/Folate Profileon Folate 4.7 ng/mL Low >5.9 [facility] Comment on above: Result Comment: Sherry te reference range: >5.9 ng/ml The WHO technical consultation on folate and vitamin b12 deficiencies has determined that folate concentrations less than 4 ng/ml are considered deficient. PERFORMED BY: [place] [address] PATHOLOGIST BOATBUILDER [employer] YU ACOSTA M.D. Performed By: #### C BC, CMP, FE and TIBC, JAQUELINE, [id number] #### [facility] [address] [place] [address] [place] #### METH, EPO #### [facility] , Vitamin B12 ser/plasOrdered By: Lilly Christianson on 04-13-2023 Cobalamin (Vitamin B12) [Mass/Vol] pg/mL High 180-914 [facility] Comment on above: Performed By: #### C BC, CMP, FE and TIBC, JAQUELINE, [id number] #### [address] #### METH, EPO #### [facility] , Complete Blood Count Auto Di ffon 01-17-2023 Basophils (Bld) [#/Vol] 0.1 10*3/uL Normal 0.0-0.2 [facility] Comment on above: Result Comment: PERF ORMED BY: [place] [address] PATHOLOGIST BOATBUIL[employer] YU ACOSTA M.D. Performed By: #### C BC, CMP, FE and TIBC, JAQUELINE, [id number] #### [address] #### METH, EPO #### [facility] , Basophils/100 WBC (Bld) 0.7 % Normal . [facility] Comment on above: Performed By: #### C BC, CMP, FE and TIBC, JAQUELINE, [id number] #### [address] #### METH, EPO #### [facility] , Eosinophils (Bld) [#/Vol] 0.2 10*3/uL Normal 0.0-0.45 [facility] Comment on above: Performed By: #### C BC, CMP, FE and TIBC, JAQUELINE, [id number] #### [place] [address] [place] #### METH, EPO #### [facility] , Eosinophils/100 WBC (Bld) 2.3 % Normal . [facility] Comment on above: Performed By: #### C BC, CMP, FE and TIBC, JAQUELINE, [id number] #### [address] #### METH, EPO #### [facility] , Erythrocyte distribution width (RBC) [Ratio] 14.8 % Normal 11.9-15.3 [facility] Comment on above: Performed By: #### C BC, CMP, FE and TIBC, JAQUELINE, [id number] #### [place] [address] [place] #### METH, EPO #### [facility] , Hematocrit (Bld) [Volume fraction] 42.8 % Normal 34.0-46.4 [facility] Comment on above: Performed By: #### C BC, CMP, FE and TIBC, JAQUELINE, [id number] #### [address] #### METH, EPO #### [facility] , Hemoglobin (Bld) [Mass/Vol] 14.2 g/dL Normal 11.8-15.4 [facility] Comment on above: Performed By: #### C BC, CMP, FE and TIBC, JAQUELINE, [id number] #### [address] #### METH, EPO #### [facility] , Lymphocytes (Bld) [#/Vol] 2.8 10*3/uL Normal 1.00-4.8 [facility] Comment on above: Performed By: #### C BC, CMP, FE and TIBC, JAQUELINE, [id number] #### [place] [address] [place] #### METH, EPO #### [facility] , Lymphocytes/100 WBC (Bld) 28.0 % Normal . [facility] Comment on above: Performed By: #### C BC, CMP, FE and TIBC, JAQUELINE, [id number] #### [place] [address] [place] #### METH, EPO #### [facility] , MCH (RBC) [Entitic mass] 30.3 pg Normal 24.7-34.3 [facility] Comment on above: Performed By: #### C BC, CMP, FE and TIBC, JAQUELINE, [id number] #### [place] [address] [place] #### METH, EPO #### [facility] , MCV (RBC) [Entitic vol] 90.9 fL Normal 80-100 [facility] Comment on above: Performed By: #### C BC, CMP, FE and TIBC, JAQUELINE, [id number] #### [place] [address] [place] #### METH, EPO #### [facility] , Mean Corpuscular HGB Conc 33.3 g/dL Normal 32.0-35.0 [facility] Comment on above: Performed By: #### C BC, CMP, FE and TIBC, JAQUELINE, [id number] #### [place] [address] [place] #### METH, EPO #### [facility] , Monocytes (Bld) [#/Vol] 0.8 10*3/uL Normal 0.0-0.8 [facility] Comment on above: Performed By: #### C BC, CMP, FE and TIBC, JAQUELINE, [id number] #### [place] [address] [place] #### METH, EPO #### [facility] , Monocytes/100 WBC (Bld) 8.3 % Normal . [facility] Comment on above: Performed By: #### C BC, CMP, FE and TIBC, JAQUELINE, [id number] #### [place] [address] [place] #### METH, EPO #### [facility] , Neutrophils (Bld) [#/Vol] 6.1 10*3/uL Normal 1.8-7.7 [facility] Comment on above: Performed By: #### C BC, CMP, FE and TIBC, JAQUELINE, [id number] #### [place] [address] [place] #### METH, EPO #### [facility] , Neutrophils/100 WBC (Bld) 60.7 % Normal . [facility] Comment on above: Performed By: #### C BC, CMP, FE and TIBC, JAQUELINE, [id number] #### [place] [address] [place] #### METH, EPO #### [facility] , NRBC% 0.1 /100{WBC} Normal 0-0.5 [facility] Comment on above: Performed By: #### C BC, CMP, FE and TIBC, JAQUELINE, [id number] #### [address] #### METH, EPO #### [facility] , Platelet mean volume (Bld) [Entitic vol] 9.0 fL Normal 6.3-10.7 [facility] Comment on above: Performed By: #### C BC, CMP, FE and TIBC, JAQUELINE, [id number] #### [place] [address] [place] #### METH, EPO #### [facility] , Platelets (Bld) [#/Vol] 194 10*3/uL Normal 150-450 [facility] Comment on above: Performed By: #### C BC, CMP, FE and TIBC, JAQUELINE, [id number] #### [place] [address] [place] #### METH, EPO #### [facility] , RBC (Bld) [#/Vol] 4.70 10*6/uL Normal 3.60-5.00 [facility] Comment on above: Performed By: #### C BC, CMP, FE and TIBC, JAQUELINE, [id number] #### [place] [address] [place] #### METH, EPO #### [facility] , WBC (Bld) [#/Vol] 10.0 10*3/uL Normal 3.8-11.6 [facility] Comment on above: Performed By: #### C BC, CMP, FE and TIBC, JAQUELINE, [id number] #### [place] [address] [place] #### METH, EPO #### [facility] , Comprehensive Metabolic Pane mikki 01-17-2023 Albumin [Mass/Vol] 3.9 g/dL Normal 3.5-5.7 [facility] Comment on above: Performed By: #### C BC, CMP, FE and TIBC, JAQUELINE, [id number] #### [address] #### METH, EPO #### [facility] , Albumin/Globulin [Mass ratio] 1.4 {ratio} Normal [facility] Comment on above: Performed By: #### C BC, CMP, FE and TIBC, JAQUELINE, [id number] #### [place] [address] [place] #### METH, EPO #### [facility] , ALP [Catalytic activity/Vol] 147 U/L High 34-104 [facility] Comment on above: Performed By: #### C BC, CMP, FE and TIBC, JAQUELINE, [id number] #### [place] [address] [place] #### METH, EPO #### [facility] , ALT [Catalytic activity/Vol] 19 U/L Normal 7-52 [facility] Comment on above: Performed By: #### C BC, CMP, FE and TIBC, JAQUELINE, [id number] #### [place] [address] [place] #### METH, EPO #### [facility] , Anion gap [Moles/Vol] 11.1 mmol/L Normal 6.0-15.0 [facility] Comment on above: Performed By: #### C BC, CMP, FE and TIBC, JAQUELINE, [id number] #### [address] #### METH, EPO #### [facility] , AST [Catalytic activity/Vol] 13 U/L Normal 13-39 [facility] Comment on above: Performed By: #### C BC, CMP, FE and TIBC, JAQUELINE, [id number] #### [place] [address] [place] #### METH, EPO #### [facility] , Bilirubin [Mass/Vol] 0.4 mg/dL Normal 0.3-1.0 [facility] Comment on above: Performed By: #### C BC, CMP, FE and TIBC, JAQUELINE, [id number] #### [place] [address] [place] #### METH, EPO #### [facility] , Calcium [Mass/Vol] 8.8 mg/dL Normal 8.6-10.3 [facility] Comment on above: Performed By: #### C BC, CMP, FE and TIBC, JAQUELINE, [id number] #### [place] [address] [place] #### METH, EPO #### [facility] , Chloride [Moles/Vol] 102 mmol/L Normal 98-107 [facility] Comment on above: Performed By: #### C BC, CMP, FE and TIBC, JAQUELINE, [id number] #### [place] [address] [place] #### METH, EPO #### [facility] , CO2 [Moles/Vol] 30.1 mmol/L Normal 21.0-31.0 [facility] Comment on above: Performed By: #### C BC, CMP, FE and TIBC, JAQUELINE, [id number] #### [place] [address] [place] #### METH, EPO #### [facility] , Creatinine [Mass/Vol] 1.10 mg/dL Normal 0.60-1.20 [facility] Comment on above: Performed By: #### C BC, CMP, FE and TIBC, JAQUELINE, [id number] #### [place] [address] [place] #### METH, EPO #### [facility] , Creatinine Clr Calc Pharmacy 70.45 Normal [facility] Comment on above: Performed By: #### C BC, CMP, FE and TIBC, JAQUELINE, [id number] #### [place] [address] [place] #### METH, EPO #### [facility] , GFR/1.73 sq M.predicted MDRD (S/P/Bld) [Vol rate/Area] 58.608 mL/min/{1.73_m2} Normal [facility] Comment on above: Performed By: #### C BC, CMP, FE and TIBC, JAQUELINE, [id number] #### [place] [address] [place] #### METH, EPO #### [facility] , Globulin (S) [Mass/Vol] 2.8 g/dL Normal [facility] Comment on above: Performed By: #### C BC, CMP, FE and TIBC, JAQUELINE, [id number] #### [place] [address] [place] #### METH, EPO #### [facility] , Glucose [Mass/Vol] 132 mg/dL High 70-100 [facility] Comment on above: Result Comment: [place] Glucose Reference Range is dependent on time and content of last meal. Glucose of more than 200 mg/dL in a nonstressed, ambulatory subject supports the diagnosis of Diabetes Mellitus. ADA recommended reference range Performed By: #### C BC, CMP, FE and TIBC, JAQUELINE, [id number] #### [place] [address] [place] #### METH, EPO #### [facility] , Potassium [Moles/Vol] 4.2 mmol/L Normal 3.5-5.1 [facility] Comment on above: Performed By: #### C BC, CMP, FE and TIBC, JAQUELINE, [id number] #### [address] #### METH, EPO #### [facility] , Protein [Mass/Vol] 6.7 g/dL Normal 6.4-8.9 [facility] Comment on above: Performed By: #### C BC, CMP, FE and TIBC, JAQUELINE, [id number] #### [place] [address] [place] #### METH, EPO #### [facility] , Sodium [Moles/Vol] 139 mmol/L Normal 136-145 [facility] Comment on above: Performed By: #### C BC, CMP, FE and TIBC, JAQUELINE, [id number] #### [address] #### METH, EPO #### [facility] , Urea nitrogen [Mass/Vol] 15 mg/dL Normal 7-25 [facility] Comment on above: Performed By: #### C BC, CMP, FE and TIBC, JAQUELINE, [id number] #### [place] [address] [place] #### METH, EPO #### [facility] , Erythropoetin (EPO), Serumon 01-17-2023 Erythropoetin (EPO), Serum 23.0 m[iU]/mL High 2.6-18.5 [facility] Comment on above: Result Comment: [employer] Uni[employer]el DxI 800 Immunoassay System Values obtained with different assay methods or kits cannot be used interchangeably. Results cannot be interpreted as absolute evidence of the presence or absence of malignant disease. Performed at: [address] [id number] Microbiology Supervisor: Hieu Willams PhD, Phone: [phone] PERFORMED BY: [place] [address] PATHOLOGIST [employer] ACOSTA M.D. Performed By: #### C BC, CMP, FE and TIBC, JAQUELINE, [id number] #### [address] #### METH, EPO #### [facility] , Ferritinon 01-17-2023 Ferritin [Mass/Vol] 68.6 ng/mL Normal 11.0-306.8 [facility] Comment on above: Performed By: #### C BC, CMP, FE and TIBC, JAQUELINE, [id number] #### [address] #### METH, EPO #### [facility] , Iron and TIBC Profileon 12-23 % Iron Saturation 45.9 % Normal 20-50 [facility] Comment on above: Performed By: #### C BC, CMP, FE and TIBC, JAQUELINE, [id number] #### [place] [address] [place] #### METH, EPO #### [facility] , Iron [Mass/Vol] 129 ug/dL Normal 50-212 [facility] Comment on above: Performed By: #### C BC, CMP, FE and TIBC, JAQUELINE, [id number] #### [place] [address] [place] #### METH, EPO #### [facility] , Total Iron Binding Capacity 281 ug/dL Normal 255-450 [facility] Comment on above: Performed By: #### C BC, CMP, FE and TIBC, JAQUELINE, [id number] #### [facility] [address] [place] [address] [place] #### METH, EPO #### [facility] , Transferrin [Mass/Vol] 201 mg/dL Low 203-362 [facility] Comment on above: Performed By: #### C BC, CMP, FE and TIBC, JAQUELINE, [id number] #### [facility] [address] [place] [address] [place] #### METH, EPO #### [facility] , Methylmalonic Acidon 023 Methylmalonic Acid 224 Normal 0-378 [facility] Comment on above: Result Comment: This test was developed and its performance characteristics determined by [employer]. It has not been cleared or approved by the Food and Drug Administration. Performed at: [address] [id number] Microbiology Supervisor: Amara Coyne MD, Phone: [phone] Performed By: #### C BC, CMP, FE and TIBC, JAQUELINE, [id number] #### [place] [address] [place] #### METH, EPO #### [facility] , Serum or plasma erythropoiet in (EPO) measurement (units/volume)Ordered By: Lilly Christianson on 01-17-2023 Erythropoietin (EPO) Qn 23.0 mIU/mL 2.6-18.5 [facility] Comment on above: [employer] UniC el DxI 800 Immunoassay SystemValues obtained with different assay methods or kits cannotbe used interchangeably. Results cannot be interpreted asabsolute evidence of the presence or absence of malignantdisease.Performed at: [address] [id number] Director: Hieu Willams PhD, Phone: [phone] Serum or plasma methylmalona te measurement (moles/volume)Ordered By: Lilly Christianson on 01-17-2023 Methylmalonate [Moles/Vol] 224 nmol/L 0-378 [facility] Comment on above: This test was develo ped and its performance characteristicsdetermined by [facility]. It has not been cleared orapproved by the Food and Drug Administration.Performed at: [address] [id number] Director: Amara Coyne MD, Phone: [phone] Vit. B12/Folate Profileon Cobalamin (Vitamin B12) [Mass/Vol] 490 pg/mL Normal 180-914 [facility] Comment on above: Performed By: #### C BC, CMP, FE and TIBC, JAQUELINE, [id number] #### [address] #### METH, EPO #### [facility] , Folate 6.8 ng/mL Normal >5.9 [facility] Comment on above: Result Comment: Sherry te reference range: >5.9 ng/ml The WHO technical consultation on folate and vitamin b12 deficiencies has determined that folate concentrations less than 4 ng/ml are considered deficient. PERFORMED BY: [place] [address] PATHOLOGIST [employer]COSTA M.D. Performed By: #### C BC, CMP, FE and TIBC, JAQUELINE, [id number] #### [address] #### METH, EPO #### [facility] , Complete Blood Count Auto Di ffon 10-22-2022 Basophils (Bld) [#/Vol] 0.1 10*3/uL Normal 0.0-0.2 [facility] Comment on above: Result Comment: PERF ORMED BY: [place] [address] PATHOLOGIST [employer] ACOSTA M.D. Performed By: #### C BC, CMP, FE and TIBC, JAQUELINE, [id number] #### [address] [place] [address] [place] #### METH, EPO #### [facility] , Basophils/100 WBC (Bld) 0.7 % Normal . [facility] Comment on above: Performed By: #### C BC, CMP, FE and TIBC, JAQUELINE, [id number] #### [address] #### METH, EPO #### [facility] , Eosinophils (Bld) [#/Vol] 0.4 10*3/uL Normal 0.0-0.45 [facility] Comment on above: Performed By: #### C BC, CMP, FE and TIBC, JAQUELINE, [id number] #### [address] #### METH, EPO #### [facility] , Eosinophils/100 WBC (Bld) 3.4 % Normal . [facility] Comment on above: Performed By: #### C BC, CMP, FE and TIBC, JAQUELINE, [id number] #### [place] [address] [place] #### METH, EPO #### [facility] , Erythrocyte distribution width (RBC) [Ratio] 15.8 % High 11.9-15.3 [facility] Comment on above: Performed By: #### C BC, CMP, FE and TIBC, JAQUELINE, [id number] #### [place] [address] [place] #### METH, EPO #### [facility] , Hematocrit (Bld) [Volume fraction] 39.3 % Normal 34.0-46.4 [facility] Comment on above: Performed By: #### C BC, CMP, FE and TIBC, JAQUELINE, [id number] #### [place] [address] [place] #### METH, EPO #### [facility] , Hemoglobin (Bld) [Mass/Vol] 12.8 g/dL Normal 11.8-15.4 [facility] Comment on above: Performed By: #### C BC, CMP, FE and TIBC, JAQUELINE, [id number] #### [place] [address] [place] #### METH, EPO #### [facility] , Lymphocytes (Bld) [#/Vol] 3.2 10*3/uL Normal 1.00-4.8 [facility] Comment on above: Performed By: #### C BC, CMP, FE and TIBC, JAQUELINE, [id number] #### [place] [address] [place] #### METH, EPO #### [facility] , Lymphocytes/100 WBC (Bld) 25.9 % Normal . [facility] Comment on above: Performed By: #### C BC, CMP, FE and TIBC, JAQUELINE, [id number] #### [place] [address] [place] #### METH, EPO #### [facility] , MCH (RBC) [Entitic mass] 29.5 pg Normal 24.7-34.3 [facility] Comment on above: Performed By: #### C BC, CMP, FE and TIBC, JAQUELINE, [id number] #### [place] [address] [place] #### METH, EPO #### [facility] , MCV (RBC) [Entitic vol] 90.6 fL Normal 80-100 [facility] Comment on above: Performed By: #### C BC, CMP, FE and TIBC, JAQUELINE, [id number] #### [place] [address] [place] #### METH, EPO #### [facility] , Mean Corpuscular HGB Conc 32.6 g/dL Normal 32.0-35.0 [facility] Comment on above: Performed By: #### C BC, CMP, FE and TIBC, JAQUELINE, [id number] #### [address] #### METH, EPO #### [facility] , Monocytes (Bld) [#/Vol] 0.9 10*3/uL High 0.0-0.8 [facility] Comment on above: Performed By: #### C BC, CMP, FE and TIBC, JAQUELINE, [id number] #### [address] #### METH, EPO #### [facility] , Monocytes/100 WBC (Bld) 7.1 % Normal . [facility] Comment on above: Performed By: #### C BC, CMP, FE and TIBC, JAQUELINE, [id number] #### [place] [address] [place] #### METH, EPO #### [facility] , Neutrophils (Bld) [#/Vol] 7.9 10*3/uL High 1.8-7.7 [facility] Comment on above: Performed By: #### C BC, CMP, FE and TIBC, JAQUELINE, [id number] #### [address] #### METH, EPO #### [facility] , Neutrophils/100 WBC (Bld) 62.9 % Normal . [facility] Comment on above: Performed By: #### C BC, CMP, FE and TIBC, JAQUELINE, [id number] #### [place] [address] [place] #### METH, EPO #### [facility] , NRBC% 0.1 /100{WBC} Normal 0-0.5 [facility] Comment on above: Performed By: #### C BC, CMP, FE and TIBC, JAQUELINE, [id number] #### [place] [address] [place] #### METH, EPO #### [facility] , Platelet mean volume (Bld) [Entitic vol] 10.4 fL Normal 6.3-10.7 [facility] Comment on above: Performed By: #### C BC, CMP, FE and TIBC, JAQUELINE, [id number] #### [place] [address] [place] #### METH, EPO #### [facility] , Platelets (Bld) [#/Vol] 199 10*3/uL Normal 150-450 [facility] Comment on above: Performed By: #### C BC, CMP, FE and TIBC, JAQUELINE, [id number] #### [address] #### METH, EPO #### [facility] , RBC (Bld) [#/Vol] 4.34 10*6/uL Normal 3.60-5.00 [facility] Comment on above: Performed By: #### C BC, CMP, FE and TIBC, JAQUELINE, [id number] #### [address] #### METH, EPO #### [facility] , WBC (Bld) [#/Vol] 12.5 10*3/uL High 3.8-11.6 [facility] Comment on above: Performed By: #### C BC, CMP, FE and TIBC, JAQUELINE, [id number] #### [place] [address] [place] #### METH, EPO #### [facility] , Comprehensive Metabolic Pane mikki 10-22-2022 Albumin [Mass/Vol] 3.9 g/dL Normal 3.5-5.7 [facility] Comment on above: Performed By: #### C BC, CMP, FE and TIBC, JAQUELINE, [id number] #### [place] [address] [place] #### METH, EPO #### [facility] , Albumin/Globulin [Mass ratio] 1.5 {ratio} Normal [facility] Comment on above: Performed By: #### C BC, CMP, FE and TIBC, JAQUELINE, [id number] #### [facility] [address] [place] [address] [place] #### METH, EPO #### [facility] , ALP [Catalytic activity/Vol] 161 U/L High 34-104 [facility] Comment on above: Performed By: #### C BC, CMP, FE and TIBC, JAQUELINE, [id number] #### [place] [address] [place] #### METH, EPO #### [facility] , ALT [Catalytic activity/Vol] 16 U/L Normal 7-52 [facility] Comment on above: Performed By: #### C BC, CMP, FE and TIBC, JAQUELINE, [id number] #### [place] [address] [place] #### METH, EPO #### [facility] , Anion gap [Moles/Vol] 13.9 mmol/L Normal 6.0-15.0 [facility] Comment on above: Performed By: #### C BC, CMP, FE and TIBC, JAQUELINE, [id number] #### [place] [address] [place] #### METH, EPO #### [facility] , AST [Catalytic activity/Vol] 13 U/L Normal 13-39 [facility] Comment on above: Performed By: #### C BC, CMP, FE and TIBC, JAQUELINE, [id number] #### [place] [address] [place] #### METH, EPO #### [facility] , Bilirubin [Mass/Vol] 0.3 mg/dL Normal 0.3-1.0 [facility] Comment on above: Performed By: #### C BC, CMP, FE and TIBC, JAQUELINE, [id number] #### [place] [address] [place] #### METH, EPO #### [facility] , Calcium [Mass/Vol] 8.9 mg/dL Normal 8.6-10.3 [facility] Comment on above: Performed By: #### C BC, CMP, FE and TIBC, JAQUELINE, [id number] #### [place] [address] [place] #### METH, EPO #### [facility] , Chloride [Moles/Vol] 100 mmol/L Normal 98-107 [facility] Comment on above: Performed By: #### C BC, CMP, FE and TIBC, JAQUELINE, [id number] #### [place] [address] [place] #### METH, EPO #### [facility] , CO2 [Moles/Vol] 28.4 mmol/L Normal 21.0-31.0 [facility] Comment on above: Performed By: #### C BC, CMP, FE and TIBC, JAQUELINE, [id number] #### [place] [address] [place] #### METH, EPO #### [facility] , Creatinine [Mass/Vol] 1.40 mg/dL High 0.60-1.20 [facility] Comment on above: Performed By: #### C BC, CMP, FE and TIBC, JAQUELINE, [id number] #### [place] [address] [place] #### METH, EPO #### [facility] , Creatinine Clr Calc Pharmacy 56.02 Normal [facility] Comment on above: Performed By: #### C BC, CMP, FE and TIBC, JAQUELINE, [id number] #### [place] [address] [place] #### METH, EPO #### [facility] , GFR/1.73 sq M.predicted MDRD (S/P/Bld) [Vol rate/Area] 44.155 mL/min/{1.73_m2} Normal [facility] Comment on above: Performed By: #### C BC, CMP, FE and TIBC, JAQUELINE, [id number] #### [place] [address] [place] #### METH, EPO #### [facility] , Globulin (S) [Mass/Vol] 2.6 g/dL Normal [facility] Comment on above: Performed By: #### C BC, CMP, FE and TIBC, JAQUELINE, [id number] #### [place] [address] [place] #### METH, EPO #### [facility] , Glucose [Mass/Vol] 281 mg/dL High 70-100 [facility] Comment on above: Result Comment: [facility] Glucose Reference Range is dependent on time and content of last meal. Glucose of more than 200 mg/dL in a nonstressed, ambulatory subject supports the diagnosis of Diabetes Mellitus. ADA recommended reference range Performed By: #### C BC, CMP, FE and TIBC, JAQUELINE, [id number] #### [place] [address] [place] #### METH, EPO #### [facility] , Potassium [Moles/Vol] 4.3 mmol/L Normal 3.5-5.1 [facility] Comment on above: Performed By: #### C BC, CMP, FE and TIBC, JAQUELINE, [id number] #### [place] [address] [place] #### METH, EPO #### [facility] , Protein [Mass/Vol] 6.5 g/dL Normal 6.4-8.9 [facility] Comment on above: Performed By: #### C BC, CMP, FE and TIBC, JAQUELINE, [id number] #### [place] [address] [place] #### METH, EPO #### [facility] , Sodium [Moles/Vol] 138 mmol/L Normal 136-145 [facility] Comment on above: Performed By: #### C BC, CMP, FE and TIBC, JAQUELINE, [id number] #### [place] [address] [place] #### METH, EPO #### [facility] , Urea nitrogen [Mass/Vol] 17 mg/dL Normal 7-25 [facility] Comment on above: Performed By: #### C BC, CMP, FE and TIBC, JAQUELINE, [id number] #### [place] [address] [place] #### METH, EPO #### [facility] , Erythropoetin (EPO), Serumon 10-22-2022 Erythropoetin (EPO), Serum 31.7 m[iU]/mL High 2.6-18.5 [facility] Comment on above: Result Comment: [employer] DxI 800 Immunoassay System Values obtained with different assay methods or kits cannot be used interchangeably. Results cannot be interpreted as absolute evidence of the presence or absence of malignant disease. Performed at: [facility] [id number] Microbiology Supervisor: Hieu Willams PhD, Phone: [phone] PERFORMED BY: [place] [address] PATHOLOGIST BOATBUILDER WOOD YU ACOSTA M.D. Performed By: #### C BC, CMP, FE and TIBC, JAQUELINE, [id number] #### [place] [address] [place] #### METH, EPO #### [facility] , Ferritinon 10-22-2022 Ferritin [Mass/Vol] 82.9 ng/mL Normal 11.0-306.8 [facility] Comment on above: Performed By: #### C BC, CMP, FE and TIBC, JAQUELINE, [id number] #### [address] #### METH, EPO #### [facility] , Iron and TIBC Profileon % Iron Saturation 34.3 % Normal 20-50 [facility] Comment on above: Performed By: #### C BC, CMP, FE and TIBC, JAQUELINE, [id number] #### [place] [address] [place] #### METH, EPO #### [facility] , Iron [Mass/Vol] 94 ug/dL Normal 50-212 [facility] Comment on above: Performed By: #### C BC, CMP, FE and TIBC, JAQUELINE, [id number] #### [place] [address] [place] #### METH, EPO #### [facility] , Total Iron Binding Capacity 274 ug/dL Normal 255-450 [facility] Comment on above: Performed By: #### C BC, CMP, FE and TIBC, JAQUELINE, [id number] #### [place] [address] [place] #### METH, EPO #### [facility] , Transferrin [Mass/Vol] 196 mg/dL Low 203-362 [facility] Comment on above: Performed By: #### C BC, CMP, FE and TIBC, JAQUELINE, [id number] #### [place] [address] [place] #### METH, EPO #### [facility] , Methylmalonic Acidon 023 Methylmalonic Acid 270 Normal 0-378 [facility] Comment on above: Result Comment: This test was developed and its performance characteristics determined by [facility]. It has not been cleared or approved by the Food and Drug Administration. Performed at: [address] [id number] Microbiology Supervisor: Amara Coyne MD, Phone: [phone] Performed By: #### C BC, CMP, FE and TIBC, JAQUELINE, [id number] #### [place] [address] [place] #### METH, EPO #### [facility] , Vit. B12/Folate Profileon Cobalamin (Vitamin B12) [Mass/Vol] pg/mL High 180-914 [facility] Comment on above: Performed By: #### C BC, CMP, FE and TIBC, JAQUELINE, [id number] #### [address] #### METH, EPO #### [facility] , Folate 5.7 ng/mL Low >5.9 [facility] Comment on above: Result Comment: Sherry te reference range: >5.9 ng/ml The WHO technical consultation on folate and vitamin b12 deficiencies has determined that folate concentrations less than 4 ng/ml are considered deficient. PERFORMED BY: [place] [address] PATHOLOGIST [employer]ATBUILDER [employer] YU ACOSTA M.D. Performed By: #### C BC, CMP, FE and TIBC, JAQUELINE, [id number] #### [address] #### METH, EPO #### [facility] , CREATININE BLDon 10-07-2022 Creatinine [Mass/Vol] 1.06 mg/dL High 0.58-0.96 [facility] Comment on above: Order Comment: Speci men Type: BLOOD SPECIMEN Ordering Facility: [facility] Address: [address] [place] [address] [place] [address] Performed By: #### C RET1 #### [facility] CLIA [id number] [address] [place] [address] Creatinine and Glomerular filtration rate.predicted panel (S/P/Bld) 62 mL/min/1.73m??? Normal >=60 [facility] Comment on above: Order Comment: Speci men Type: BLOOD SPECIMEN Ordering Facility: [facility] Address: [address] [place] [address] [place] [address] Result Comment: Terri mated Glomerular Filtration Rate [...] GFR. Performed By: #### C RET1 #### [facility] CLIA [id number] [address] [place] [address] KIDNEY WO/W IVCONon 10-07 CT KIDNEY WO/W IVCON * * *Final Report* * * DATE OF EXAM: Oct 07 2022 11:27AM [facility] 0546 - CT KIDNEY WO/W [...] No pulmonary parenchymal nodule or pleural effusion. Technical Administrative Assistant (topogram) images: No additional findings. IMPRESSION: 3.3 [...] any questions regarding this interpretation, please call [phone]. If you are unable to reach us at the number above, please feel free to contact [facility] e[facility]iology at [phone]. [id number] Normal [facility] C. DIFF PCRon 06-18-2022 C. DIFFICILE PCR Negative Normal NEGATIVE [facility] Comment on above: Performed By: #### [facility] #### [facility] [address] [address] [address] Naz Crouch Albumin [Mass/volume] in Ser um or PlasmaOrdered By: Joanne Brown on 06-16-2022 Albumin [Mass/Vol] 3.3 g/dL 2.9-4.4 [facility] IgA [Mass/volume] in Serum o r PlasmaOrdered By: Joanne Brown on 06-16-2022 IgA [Mass/Vol] 224 mg/dL 87-352 [facility] IgG [Mass/volume] in Serum o r PlasmaOrdered By: Joanne Brown on 06-16-2022 IgG [Mass/Vol] 1023 mg/dL 586-1602 [facility] IgM [Mass/volume] in Serum o r PlasmaOrdered By: Joanne Brown on 06-16-2022 IgM [Mass/Vol] 50 mg/dL 26-217 [facility] Comment on above: Performed at: [facility] [place] [id number] Director: Hieu Willams PhD, Phone: [phone] Immunoglobulin light chains. kappa.free [Mass/volume] in SerumOrdered By: Joanne Brown on 06-16-2022 Immunoglobulin light chains.kappa.free (S) [Mass/Vol] 47.9 mg/L 3.3-19.4 [facility] Immunoglobulin light chains. kappa.free/Immunoglobulin light chains.lambda.free [MassOrdered By: Joanne Brown on 06-16-2022 Immunoglobulin light chains.kappa.free/Immu noglobulin light chains.lambda.free (S) [Mass ratio] 1.89 0.26-1.65 [facility] Immunoglobulin light chains. lambda.free [Mass/volume] in Serum or PlasmaOrdered By: Joanne Brown on 06-16-2022 Immunoglobulin light chains.lambda.free [Mass/Vol] 25.3 mg/L 5.7-26.3 [facility] No Panel InformationOrdered By: Joanne Brown on 06-16-2022 Protein Electrophoresis M-Anam Not observed g/dL Not Observed [facility] Protein Electrophoresis Note See comment . [facility] Comment on above: Protein electrophore sis scan will follow via computer,mail, or manager wellness delivery.Performed at: [facility] [id number] Director: Hieu Willams PhD, Phone: [phone] Serum Immunofixation See comment . [facility] Comment on above: No monoclonality det ected. Protein [Mass/volume] in Ser um or PlasmaOrdered By: Joanne Brown on 06-16-2022 Protein [Mass/Vol] 6.4 g/dL 6.0-8.5 [facility] Serum globulin measurement ( mass/volume)Ordered By: Joanne Brown on 06-16-2022 Globulin (S) [Mass/Vol] 3.1 g/dL 2.2-3.9 [facility] Serum or plasma albumin/glob ulin mass ratioOrdered By: Joanne Brown on 06-16-2022 Albumin/Globulin [Mass ratio] 1.1 {ratio} 0.7-1.7 [facility] Serum or plasma alpha 1 glob ulin measurement by electrophoresis (mass/volume)Ordered By: Joanne Brown on 06-16-2022 Alpha 1 globulin Elph [Mass/Vol] 0.3 g/dL 0.0-0.4 [facility] Serum or plasma alpha 2 glob ulin measurement by electrophoresis (mass/volume)Ordered By: Joanne Brown on 06-16-2022 Alpha 2 globulin Elph [Mass/Vol] 1.0 g/dL 0.4-1.0 [facility] Serum or plasma beta globuli n measurement by electrophoresis (mass/volume)Ordered By: Joanne Brown on 06-16-2022 Beta globulin Elph [Mass/Vol] 1.0 g/dL 0.7-1.3 [facility] Serum or plasma gamma globul in measurement by electrophoresis (mass/volume)Ordered By: Joanne Brown on 06-16-2022 Gamma globulin Elph [Mass/Vol] 0.9 g/dL 0.4-1.8 [facility] Glucose Glucometer (BldC) [M ass/Vol]Ordered By: Bebo Sims on 06-02-2022 Glucose [Mass/Vol] 118 mg/dL [facility] Comment on above: Random Glucose Refer ence Range is dependent on time and content of last meal. Glucose of more than 200 mg/dL in a nonstressed, ambulatory subject supports the diagnosis of Diabetes Mellitus. CBC AUTO DIFFon 04-22-2022 BASO # 0.1 103/ul Normal 0.0-0.1 [facility] Comment on above: Performed By: #### C BC #### [facility] [address] [address] [address] Naz Crouch Basophils/100 WBC (Bld) 0.8 % Normal 0.2-2.0 [facility] Comment on above: Performed By: #### C BC #### [facility] [address] [address] [address] Naz Crouch EO # 0.3 103/ul Normal 0.0-0.7 [facility] Comment on above: Performed By: #### C BC #### [facility] [address] [address] [address] Naz Crouch Eosinophils/100 WBC (Bld) 2.2 % Normal 0.9-7.0 [facility] Comment on above: Performed By: #### C BC #### [facility] [address] [address] [address] Naz Crouch Erythrocyte distribution width (RBC) [Ratio] 20.0 % Critically high 11.0-15.0 [facility] Comment on above: Performed By: #### C BC #### [facility] [address] [address] [address] Naz Crouch Hematocrit (Bld) [Volume fraction] 27.6 % Critically low 36.0-48.0 [facility] Comment on above: Performed By: #### C BC #### [facility] [address] [address] [address] Naz Crouch Hemoglobin (Bld) [Mass/Vol] 7.3 g/dL Critically low 12.0-16.0 [facility] Comment on above: Performed By: #### C BC #### [facility] [address] [address] [address] Naz Crouch IG # 0.09 10e3/ul Critically high 0.00-0.03 [facility] Comment on above: Performed By: #### C BC #### [facility] [address] [address] [address] Naz Crouch IG % 0.7 % Critically high 0.0-0.5 [facility] Comment on above: Performed By: #### C BC #### [facility] [address] [place] [address] Dr. Naz Crouch LYMPH # 2.3 103/ul Normal 1.2-3.8 [facility] Comment on above: Performed By: #### C BC #### [facility] [address] [place] [address] Dr. Naz Crouch Lymphocytes/100 WBC (Bld) 17.8 % Critically low 20.5-60.0 [facility] Comment on above: Performed By: #### C BC #### [facility] [address] [place] [address] Dr. Naz Crouch MANUAL DIFF REQ NO Normal [facility] Comment on above: Performed By: #### C BC #### [facility] [address] [place] [address] Dr. Naz Crouch MCH (RBC) [Entitic mass] 18.3 pg Critically low 26.7-34.0 [facility] Comment on above: Performed By: #### C BC #### [facility] [address] [place] [address] Dr. Naz Crouch MCHC (RBC) [Mass/Vol] 26.4 g/dL Critically low 29.9-35.2 [facility] Comment on above: Performed By: #### C BC #### [facility] [address] [place] [address] Dr. Naz Crouch MCV (RBC) [Entitic vol] 69.2 fL Critically low 81.0-99.0 [facility] Comment on above: Performed By: #### C BC #### [facility] [address] [place] [address] Dr. Naz Crouch MONO # 0.8 103/ul Normal 0.3-0.8 [facility] Comment on above: Performed By: #### C BC #### [facility] [address] [place] [address] Dr. Naz Crouch Monocytes/100 WBC (Bld) 6.5 % Normal 1.7-12.0 [facility] Comment on above: Performed By: #### C BC #### [facility] [address] [place] [address] Dr. Naz Crouch NEUT # 9.3 103/ul Critically high 1.4-6.5 [facility] Comment on above: Performed By: #### C BC #### [facility] [address] [place] [address] Dr. Naz Crouch Neutrophils/100 WBC (Bld) 72.0 % Normal 43.0-75.0 [facility] Comment on above: Performed By: #### C BC #### [facility] [address] [place] [address] Dr. Naz Crouch Platelet mean volume (Bld) [Entitic vol] 9.4 fL Critically low 9.5-13.5 [facility] Comment on above: Performed By: #### C BC #### [facility] [address] [place] [address] Dr. Naz Crouch PLT 318 103/ul Normal 150-450 [facility] Comment on above: Performed By: #### C BC #### [facility] [address] [place] [address] Dr. Naz Crouch RBC 3.99 106/ul Critically low 4.20-5.40 [facility] Comment on above: Performed By: #### C BC #### [facility] [address] [place] [address] Dr. Naz Crouch WBC 13.0 103/ul Critically high 4.0-11.0 [facility] Comment on above: Performed By: #### C BC #### [facility] [address] [place] [address] Dr. Naz Crouch GLYCOHEMOGLOBIN A1Con 2022 ADA RECOMMENDATION SEE BELOW Normal [facility] Comment on above: Result Comment: ADA RECOMMENDED LIMIT 4.0 - 6.0 ADA THERAPEUTIC TARGET < 7.0 ACTION SUGGESTED > 7.0 Performed By: #### A 1C #### [facility] [address] [place] [address] Dr. Naz Crouch Glucose [Mass/Vol] 192 mg/dL Normal [facility] Comment on above: Performed By: #### A 1C #### [facility] [address] [place] [address] Dr. Naz Crouch HbA1c (Bld) [Mass fraction] 8.3 % Critically high 4.5-6.2 [facility] Comment on above: Performed By: #### A 1C #### [facility] [address] [place] [address] Dr. Naz Crouch MICROALBUMIN, RAND URon - mALB 4.7 mg/L Normal <=30.0 [facility] Comment on above: Performed By: #### M ALBR #### [facility] [address] [place] [address] Dr. Naz Crouch PROF 14(COMP METB)on 023 Albumin [Mass/Vol] 3.1 g/dL Critically low 3.4-5.0 Th e [facility] Comment on above: Performed By: #### C MP, T4, TSH #### [facility] [address] [place] [address] Dr. Naz Crouch Albumin/Globulin [Mass ratio] 0.8 {ratio} Normal [facility] Comment on above: Performed By: #### C MP, T4, TSH #### [facility] [address] [place] [address] Dr. Naz Crouch ALP [Catalytic activity/Vol] 176 U/L Critically high 46-116 [facility] Comment on above: Performed By: #### C MP, T4, TSH #### [facility] [address] [place] [address] Dr. Naz Crouch ALT [Catalytic activity/Vol] 18 U/L Normal 14-59 [facility] Comment on above: Performed By: #### C MP, T4, TSH #### [facility] [address] [address] [address] Naz Crouch Anion gap [Moles/Vol] 12.9 mmol/L Normal Th e [facility] Comment on above: Performed By: #### C MP, T4, TSH #### [facility] [address] [address] [address] Naz Crouch AST [Catalytic activity/Vol] 12 U/L Critically low 15-37 [facility] Comment on above: Performed By: #### C MP, T4, TSH #### [facility] [address] [address] [address] Naz Crouch Bilirubin [Mass/Vol] 0.2 mg/dL Normal 0.2-1.0 [facility] Comment on above: Performed By: #### C MP, T4, TSH #### [facility] [address] [place] [address] Dr. Naz Crouch Calcium [Mass/Vol] 8.8 mg/dL Normal 8.5-10.1 [facility] Comment on above: Performed By: #### C MP, T4, TSH #### [facility] [address] [place] [address] Dr. Naz Crouch Chloride [Moles/Vol] 104 mmol/L Normal 98-107 [facility] Comment on above: Performed By: #### C MP, T4, TSH #### [facility] [address] [place] [address] Dr. Naz Crouch CO2 [Moles/Vol] 27.5 mmol/L Normal 21.0-32.0 [facility] Comment on above: Performed By: #### C MP, T4, TSH #### [facility] [address] [place] [address] Dr. Naz Crouch Creatinine [Mass/Vol] 0.89 mg/dL Normal 0.55-1.02 [facility] Comment on above: Performed By: #### C MP, T4, TSH #### [facility] [address] [place] [address] Dr. Naz Crouch EGFR-AF SUDANESE >60 Normal >=60 [facility] Comment on above: Performed By: #### C MP, T4, TSH #### [facility] [address] [place] [address] Dr. Naz Crouch EGFR-NON AF SUDANESE >60 Normal >=60 [facility] Comment on above: Performed By: #### C MP, T4, TSH #### [facility] [address] [place] [address] Dr. Naz Crouch Globulin (S) [Mass/Vol] 3.9 g/dL Normal [facility] Comment on above: Performed By: #### C MP, T4, TSH #### [facility] [address] [place] [address] Dr. Naz Crouch Glucose [Mass/Vol] 206 mg/dL Critically high 74-106 [facility] [place] Comment on above: Performed By: #### C MP, T4, TSH #### [facility] [address] [place] [address] Dr. Naz Crouch Potassium [Moles/Vol] 4.4 mmol/L Normal 3.5-5.1 [facility] Comment on above: Performed By: #### C MP, T4, TSH #### [facility] [address] [place] [address] Dr. Naz Crouch Protein [Mass/Vol] 7.0 g/dL Normal 6.4-8.2 [facility] Comment on above: Performed By: #### C MP, T4, TSH #### [facility] [address] [place] [address] Dr. Naz Crouch Sodium [Moles/Vol] 140 mmol/L Normal 136-145 [facility] Comment on above: Performed By: #### C MP, T4, TSH #### [facility] [address] [place] [address] Dr. Naz Crouch Urea nitrogen [Mass/Vol] 15.0 mg/dL Normal 7.0-18.0 [facility] Comment on above: Performed By: #### C MP, T4, TSH #### [facility] [address] [place], [place] [id number] Dr. Naz Crouch Urea nitrogen/Creatinine [Mass ratio] 16.9 mg/mg Normal [facility] Comment on above: Performed By: #### C MP, T4, TSH #### [facility] [address] [address] [address] Naz Crouch T4on 04-22-2022 T4 [Mass/Vol] 4.60 ug/dL Critically low 4.80-13.90 [facility] Comment on above: Performed By: #### C MP, T4, TSH #### [facility] [address] [address] [address] Naz Crouch TSHon 04-22-2022 TSH 2.208 uIU/mL Normal 0.358-3.74 0 [facility] Comment on above: Performed By: #### C MP, T4, TSH #### [facility] [address] [address] [address] KIDNEY WO/W IVCONon 04-05 [facility] XR CHEST 2V FRONTAL/LATon [facility] Ambulatory Visit Summaryon 0 03-05-2022 Ambulatory Visit Summary ELMER ELLIS :1965 Visit Date:03/05/2022 Ambulatory Visit Instructions Your Diagnosis Right renal mass Incomplete bladder emptying Tests Performed Urnls Dip Stick Auto w/o Microscopy POC 65941 Your Care Team Attending Physician - Jluis [...] with VENKAT SAWYER, RAPHAEL Jimenez When: Where: [address] [place] [address]- Someone Will Contact You Regarding These Appointments [facility] External Ambulatory Referral, Urology, [facility]. Renal mass, [...] Urnls Dip Stick Auto w/o Microscopy POC 05176 (03/05/2022) Bilirubin Urine Dipstick - 1+ Small Blood Urine Dipstick - Negative Glucose Urine Dipstick - 2+ 500 mg/dl Ketones Urine Dipstick - Trace - 5 mg/dl Leukocytes Urine Dipstick - Negative Nitrite Urine Dipstick - Negative Protein Urine Dipstick - 2+ (100 mg/dl) Specific [place] Urine Dipstick - >=1.030 Urine Appearance Urine [...] on the (more content not included)... Normal [facility] Patient Educationon 03-05-19 23 Patient Education Urology [...] gives to you. In general: ? Take crny-utj-ssmrsix and prescription medicines only as told by [...] 09/04/2014 Document Revised: 03/16/2018 Document Reviewed: 03/16/2018 Method Patient Education ? 2019 Strap. [facility] Urology Office/Clinic Noteon 03-05-2022 Urology Office/Clinic Note [...] R partial nephrectomy. External referral placed to [facility]. Pt. understands her use of tobacco increases [...] Contact Information VENKAT SAWYER, Jluis Jacinto, URL [address] [place] [address]- Additional Instructions: Referral for renal mass Patient Education Renal Mass I, Sophy Simmons, personally scribed for Dr. Robledo on 03/05/2022 11:09:15. . Documentation recorded by the scribe, Sophy Simmons, accurately reflects the services(s) I performed and [...] 11/21/2020 Recorde (more content not included)... Normal [facility] Comment on above: Result Comment: Elec tronically Signed By: Jluis ROBLEDO MD\.br\Date and Time Signed: 03/05/22 11:17 EST\.br\Electronically Co-Signed By: Sophy Simmons\.br\Date and Time Co-Signed: 03/05/22 11:10 EST\.br\Electronically Co-Signed By: Sophy Simmons\.br\Date and Time Co-Signed: 03/05/22 11:11 EST Lab Reportson 02-05-2022 Lab Reports [id number]:127 Normal [facility] RAD - CT Reporton 02-05-[address] - [address] Report [id number]:127 Normal [facility] RAD - CT Report [id number]:[address] [facility] [address] ABD/PELV W CONon 02-03-20 CT ABD/PELV [...] by: MICHOACANO MARTIN Date: 2022-02-02 08:28 Normal [facility] Reminderson 02-02-2022 Reminders - From: Tahmina Hanson To: EU - Recalls Venkat; Sent: 07/29/2021 07:40:04 EDT Show up: 12/22/2021 07:40:00 EDT Subject: Ct scan Reminder/Recall Pt needs Ct scan ABD/Pelvis with contrast prior to Dec appt will send order to [facility]. [facility] never received her order will re fax to [facility] nothing at [facility] yet and unable to get ahold of CS pt will call to schedule she doesnt have insurance. CT done 02/01/2022 at [facility] will drop results into pt's chart has f/u 03/01/2022 Normal [facility] CREATININEon 02-01-2022 Creatinine [Mass/Vol] 1.00 mg/dL Normal 0.55-1.02 [facility] Comment on above: Performed By: #### C SERGEY #### [facility] [address] [place] [address] Dr. Naz Crouch EGFR-AF SUDANESE >60 Normal >=60 [facility] Comment on above: Performed By: #### C SERGEY #### [facility] [address] [address] [address] Naz Crouch EGFR-NON AF SUDANESE 57 mL/min/1.73m2 Critically low >=60 [facility] Comment on above: Performed By: #### C SERGEY #### [facility] Laboratory [address] [place] [address] Dr. Naz Crouch Physician Orderon 01-11-2022 Physician Order [id number]:127 [facility] CNOVon 11-09-2021 CNOV Office Visit (AGPOB1 ) ELMER ELLIS ([id number]) 1965 F Date Time Provider Department 9/19/22 1:45 PM LILLY TONYPOB1 During your visit today, we recorded the [...] mg by mouth twice daily. MV with Tyn-Ivpghmch-Inbanj (CENTRUM SILVER) 0.4 mg-300 mcg- 250 mcg tab Take by mouth. insulin 75/25 lispro protamine/lispro units/mL (HUMALOG MIX 75-25,U-100,INSULN) 100 units/mL susp as directed. HYDROcodone-acetaminophen (NORCO) 5-325 mg per tablet hydrocodone 5 mg-acetaminophen 325 mg tablet TAKE 1 TO 2 TABLETS BY MOUTH EVERY DAY AT BEDTIME NEEDED dyfhkfzq-phj-mtji-FA-lutein (CENTRUM SILVER WOMEN) 8 mg iron-400 mcg-300 [...] been ambula (more content not included)... Normal [facility] CNPNon 10-13-2021 CNPN Telephone (AGPOB1) ELMER ELLIS ([id number]) 1965 F Date Time Provider Department 10/13/21 LILLY TONY JAZMÍNB1 During your visit today, we recorded the [...] bear any weight. Patient has taken 1 Beaumont about an hour ago and said it [...] by mouth twice daily. - MV with Hzt-Liityqbi-Lvsflk (CENTRUM SILVER) 0.4 mg-300 mcg- 250 mcg tab Take by mouth. - insulin 75/25 lispro protamine/lispro units/mL (HUMALOG MIX 75-25,U-100,INSULN) 100 units/mL susp as directed. - HYDROcodone-acetaminophen (NORCO) 5-325 mg per tablet hydrocodone 5 mg-acetaminophen 325 mg tablet TAKE 1 TO 2 TABLETS BY MOUTH EVERY DAY AT BEDTIME NEEDED - mrfpndqg-eks-ejrl-FA-lutein (CENTRUM SILVER WOMEN) 8 mg iron-400 mcg-300 [...] Encounter Status:Closed by FILOMENA MADRIGAL on 10/13/21 [facility] CNOVon 10-12-2021 CNOV Office Visit (AGPOB1 ) ELMER ELLIS ([id number]) 1965 F Date Time Provider Department 10/12/21 1:15 PM LILLY TONY During your visit today, [...] mg by mouth twice daily. MV with Cgy-Cgwfxcqo-Okwqvs (CENTRUM SILVER) 0.4 mg-300 mcg- 250 mcg tab Take by mouth. insulin 75/25 lispro protamine/lispro units/mL (HUMALOG MIX 75-25,U-100,INSULN) 100 units/mL susp as directed. HYDROcodone-acetaminophen (NORCO) 5-325 mg per tablet hydrocodone 5 mg-acetaminophen 325 mg tablet TAKE 1 TO 2 TABLETS BY MOUTH EVERY DAY AT BEDTIME NEEDED goljugkd-fda-tbqz-FA-lutein (CENTRUM SILVER WOMEN) 8 mg iron-400 mcg-300 [...] fracture sustaine (more content not included)... Normal [facility] CNOVon 09-21-2021 CNOV Office Visit (AGPOB1 ) ELMER ELLIS ([id number]) 1965 F Date Time Provider Department 09/21/21 3:00 PM LILLY TONY AGJAZMÍNB1 During your visit today, we recorded the following information about you: Respiration Weight Height 22/minute 118.1 kg 1.626 m Lilly Tony MD 09/22/2021 11:59 AM Signed ORTHOPAEDIC OFFICE NOTE CHIEF COMPLAINT: Left ankle pain HISTORY OF PRESENT ILLNESS: Elmer Gold Zaira is a 55 year old female who [...] with nonweightbearing status. She will occasionally take Beaumont for pain relief which is effective. She is also supplemented with lmok-sjb-horqbul pain medications. Her medical history significant for Beatties, coronary artery disease, diabetes and associated lower extremity neuropathy, DVT requiring Plavix and Xarelto for anticoagulation. 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 She also has kidney cancer that is [...] by mouth twice daily. - MV with Zcx-Obraiimv-Pqjydz (CENTRUM SILVER) 0.4 mg-300 mcg- 250 mcg tab Take by mouth. - insulin 75/25 lispro protamine/lispro units/mL (HUMALOG MIX 75-25,U-100,INSULN) 100 units/mL susp as directed. - HYDROcodone-acetaminophen (NORCO) 5-325 mg per tablet hydrocodone 5 mg-acetaminophen 325 mg tablet TAKE 1 TO 2 TABLETS BY MOUTH EVERY DAY AT BEDTIME NEEDED - ofmfdqge-nsb-eejc-FA-lutein (CENTRUM SILVER WOMEN) 8 mg iron-400 mcg-300 [...] lateral med (more content not included)... Normal [facility] Osvaldo 09-16-2021 CORBY Telephone (AGPOB1) YECKLEY,ELMER M ([id number]) 1965 F Date Time Provider Department 09/16/21 [place] [address] During your visit today, we recorded the following information about you: Jared Alcantar Senior Counsel [facility] 09/16/2021 9:05 AM Signed ----- Message from [...] which facility was the patient seen at: [facility] / 09.12.2021 Was an appointment scheduled (Y/N): n Person calling if other than patient: n Return call to if other than patient: n Best contact number: [phone] Thank you, Peggy Saxena September 15, 2021 4:27 PM Filomena Madrigal 09/16/2021 10:18 AM Signed Called and spoke to patient regarding L ankle fracture OS 09/12/21. Patient was seen at [facility] ED after falling she fell in [...] Date: 09/16/2021 (None) Encounter Status:Closed by ERIKA REHABILITATION TECH JARED GARCIA on 09/16/21 [facility] 09-12-20[facility] HNO ID: [id number] Author: RT Herman(R) Service: Radiology Author Type: [...] RT Herman(R) September 12, 2021 2:38 PM [facility] HNO ID: [id number] Author: RT Alexandra(R) Service: Radiology Author Type: [...] Alexandra(R) September 12, 2021 12:21 PM Normal [facility] CONSULTon 09-12-2021 CONSULT HNO ID: [id number] Author: Stoney Bauer MD Service: Orthopaedic Surgery Author Type: Resident Type: Consults Filed: 09/12/2021 11:43 PM Note Text: Attestation signed by Lilly Tony MD at 09/13/2021 6:54 PM Lilly Tony M.D. Attending Staff, Department of Orthopedic Surgery [facility] Orthopaedic Surgery Consultation Note Reason for Consultation: [...] in the last 72 hours. Invalid input(s): [facility] Imaging XR of left tib/fib, ankle, foot: demonstrates a short oblique proximal fibula fracture with medial clear space widening >5mm indicating an unstable Maisonneuve injury; nondisplaced fracture of the distal medial malleolus tip Assessment Elmer Ellis is a 55 year old female left [...] within 1 week 9. Discussed with Dr. Tony who agrees with the above recommendations. Stoney Bauer MD September 12, 2021 11:43 PM [facility] ED NOTEon 09-12-2021 ED NOTE HNO ID: [id number] Author: Joi Mariscal RN Service: Emergency Medicine Author Type: Registered Nurse Type: ED Notes Filed: 09/12/2021 11:13 AM Note Text: X-ray notified pt ready for imaging. Normal [facility] ED PROV NOTEon 09-12-2021 ED PROV NOTE HNO ID: [id number] Author: Alexander Velázquez APRN.CNP Service: Emergency Medicine [...] pain medication and follow up with her public transit specialist that she already has seen previous. Patient in no acute distress vitals are stable. RETURN PRECAUTIONS Patient discharged from the Emergency Department. I do not feel that the patient's evaluation reveals any acute reason for admission at this time. I instructed them to either follow up with their primary care physicia (more content not included)... Normal [facility] XR ANKLE 1V LTon 09-12-2021 XR ANKLE [...] alignment is otherwise stable. IMPRESSION: See above. Ammunition Components Inspector: PSCB Transcribe Date/Time: Sep 12 2021 2:45P Dictated by : KEN MCKEON MD This examination was interpreted and the report reviewed and electronically signed by: KEN MCKEON MD on Sep 12 2021 2:46PM EST [id number] Normal [facility] XR ANKLE 3V AP/LAT/OBL LTon 09-12-2021 XR [...] Left foot first proximal phalangeal head fracture. Ammunition Components Inspector: PSCB Transcribe Date/Time: Sep 12 2021 12:54P Dictated by : MOE SINGH MD This examination was interpreted and the report reviewed and electronically signed by: MOE SINGH MD on Sep 12 2021 1:00PM EST [id number] Normal [facility] XR FOOT 3V AP/LAT/OBL LTon 0 09-12-2021 [...] Left foot first proximal phalangeal head fracture. Ammunition Components Inspector: PSCB Transcribe Date/Time: Sep 12 2021 12:54P Dictated by : MOE SINGH MD This examination was interpreted and the report reviewed and electronically signed by: MOE SINGH MD on Sep 12 2021 1:00PM EST [id number] Normal [facility] XR KNEE 2V AP/LAT LTon 09-12 XR KNEE 2V AP/LAT LT * * *Final Report* * * DATE OF EXAM: Sep 12 2021 12:22PM AKX [id number] - XR KNEE 2V AP/LAT LT [...] Left foot first proximal phalangeal head fracture. Ammunition Components Inspector: LILLY Transcribe Date/Time: Sep 12 2021 12:54P Dictated by : MOE SINGH MD This examination was interpreted and the report reviewed and electronically signed by: MOE SINGH MD on Sep 12 2021 1:00PM EST [id number] Normal [facility] XR TIBIA FIBULA 2V AP/LAT LT on [...] change regarding proximal fibular fracture. No dislocation. Ammunition Components Inspector: [facility] Transcribe Date/Time: Sep 12 2021 3:23P Dictated by : NIMCO GREEN MD This examination was interpreted and the report reviewed and electronically signed by: NIMCO GREEN MD on Sep 12 2021 3:27PM EST [id number] Normal [facility] Formson 07-29-2021 Forms [id number]:127 [facility] Physician Referralon 022 Physician Referral [id number]:127 [facility] RAD - CT Reporton 07-29-2021 RAD - CT Report [id number]:127 [facility] Ambulatory Visit Summaryon 0 07-27-2021 Ambulatory Visit Summary ELMER ELLIS :1965 Visit Date:07/27/2021 Ambulatory Visit Instructions Your [...] Ct scan Where: [facility] [address] , [place] [address]- [phone] Medications What How Much When Instructions Unchanged [...] about calorie (more content not included)... [facility] Patient Educationon 07-28-19 22 Patient Education Nutrition Calorie Counting for Weight [...] You could (more content not included)... [facility] Urology Office/Clinic Noteon 07-27-2021 Urology Office/Clinic Note Chief Complaint new pt referred for renal mass HPI Staff Elmer is a 55yr old new pt referred for Renal mass. Pt had CT of ABD/pel done at [facility] on 06/15/21. pt says she feels like [...] contrast Follow-up With When Contact Information VENKAT SAWYER, Jluis Jacinto, URL In 6 months 01/26/2022 [facility] [address], [place] [phone] Additional Instructions: [address] scan Patient Education Renal Mass Calorie Counting for Weight Loss ITahmina, personally scribed for Dr. Robledo on 07/27/2021 10:20:46. . Documentation recorded by the isabelleibsisi gallardo, accurately reflects the services(s) I performed [...] SubCutaneous, BIDAC (more content not included)... [facility] Comment on above: Result Comment: Elec tronically Signed By: VENKAT SAWYER, Jluis Jacinto\.br\Date and Time Signed: 07/27/21 10:26 EDT\.br\Electronically Co-Signed By: Tahmina Hanson\.br\Date and Time Co-Signed: 07/27/21 10:21 EDT GLUCOSE METERon 12-16-2020 Glucose [Mass/Vol] 216 mg/dL High 70-99 [facility] Comment on above: Result Comment: Fast ing GLUCOSE reference range has been updated per (ADA) [place] [employer]'s recommendation. 05/16/2018 Physician notified Performed By: #### L [id number] #### Test performed at: [address] [address] Glucose [Mass/Vol] 273 mg/dL High 70-99 [facility] Comment on above: Result Comment: Fast ing GLUCOSE reference range has been updated per (ADA) [place] [employer]'s recommendation. 05/16/2018 Physician notified Performed By: #### L [id number] #### Test performed at: [place] [address] OPERATIVE REPORTon OPERATIVE REPORT NAME: BRIAN ELLIS MR#: [id number] SURGEON: Malik Encarnacion DO DATE OF SURGERY: [...] to follow up in 2 weeks. MALIK ENCARNACION DO GF/MODL/[id number] E/S: Malik Encarnacion DO 12/24/20 1255 Electronically Signed [facility] PT NAME: ELMER ELLIS MR#: [id number] [address] [place] [address] ACCT: [id number] : 65 OPERATIVE REPORT Normal [facility] MRI LUMBAR SP W & WO CONTRAS Ton 11-12-2020 MRI LUMBAR SP W & WO CONTRAST STUDY: MRI LUMBAR SP W WO CONTRAST; 11/12/2020 11:18 am INDICATION: LUMBAR POST-LAMINECTOMY SYNDROME. COMPARISON: Lumbar radiographs dated 09/02/2020 and MRI lumbar spine dated 10/31/2019. ACCESSION NUMBER(S): [id number] ORDERING CLINICIAN: Farhan Celeste TECHNIQUE: Multiplanar multisequence [...] granulation tissue components is again evident. Normal [facility] MRI LOW EXT ANY JNT WO CON L Ton 10-29-2020 MRI LOW EXT ANY JNT WO CON LT STUDY: MRI LOW EXT ANY JNT WO CON LT; ; 10/29/2020 11:42 am INDICATION: LEFT HIP PAIN. COMPARISON: None. ACCESSION NUMBER(S): [id number] ORDERING CLINICIAN: Farhan Celeste TECHNIQUE: MR imaging [...] hamstring tendinosis. No acute abnormality seen Normal [facility] LUMB SP COMP W FLEX/EXT 6 VW Son 09-02-2020 LUMB SP COMP W FLEX/EXT 6 VWS STUDY: LUMB SP COMP W FLEX/EXT 6 VWS ; 09/02/2020 11:01 am INDICATION: PAIN. COMPARISON: 10/17/2019 ACCESSION NUMBER(S): [id number] ORDERING CLINICIAN: Farhan Celeste FINDINGS: No acute [...] of the lumbar spine without instability. Normal [facility] MRA HEAD WO CONTRASTon 07-26 MRA HEAD WO CONTRAST [facility] Department of Radiology [address] [place] [id number] Patient Name: ELMER ELLIS : 1965 Sex: F Age: Race: White Pt. Location: Patient Status: D Ordered Date: 06/17/2020 10:35:00 AM Completed Date: 07/26/2020 10:58 AM Requesting Provider: MALIK NI V Attending Provider: MALIK NI V Report Copy To: Signs & Symptoms: H93.A3 Pulsatile tinnitus, bilateral I10 History: Chrissy X1 Stent, R Leg, [facility] April 2020 [facility] auth# [id number] 06/25/20-08/09/20 *ER Comments: evaluate Exam: MRA HEAD [...] canals given the limitations of a large jzdwv-wz-wujq imaging. IMPRESSION: * No aneurysm, thrombus or hemodynamically significant stenosis in the cerebral arteries. Electronically signed: Sharona Carrillo M.D.. Transcribed by: [email or web address], User Resident: Electronically Signed by: SHARONA CARRILLO @ 07/29/2020 08:07 AM Normal [facility] Comment on above: Order Comment: evalu ate MRI BRAIN WO CONTRASTon - MRI BRAIN WO CONTRAST [facility] Department of Radiology [address] [place] [id number] Patient Name: ELMER ELLIS : 1965 Sex: F Age: Race: White Pt. Location: 30 Patient Status: D Ordered Date: 06/17/2020 10:35:00 AM Completed Date: 07/26/2020 10:58 AM Requesting Provider: MALIK NI V Attending Provider: MALIK NI V Report Copy To: Signs & Symptoms: H93.A3 Pulsatile tinnitus, bilateral I10 History: [employer] X1 Stent, R Leg, [facility] April 2020 [facility] AUTH # [id number] 06/24/2020-08/08/2020 [id number] / Comments: evaluate Exam: MRI BRAIN WO [...] well as the dural venous sinuses. Large gidwf-ik-sjci evaluation of the internal auditory canals is negative for mass. IMPRESSION: * No acute intracranial findings. * Scattered, mild burden of nonspecific T2 weighted/FLAIR hyperintensities. Differential diagnosis includes sequelae of chronic small vessel ischemic disease, Lyme disease, vasculitis, chronic migraines, among others. Electronically signed: Sharona Carrillo M.D.. Transcribed by: [email or web address], User Resident: Electronically Signed by: SHARONA CARRILLO @ 07/29/2020 07:57 AM Normal [facility] Comment on above: Order Comment: evalu ate Vital Signs Date Time Vital Sign Value Performing Clinician Facility 03-24-2023 16:45-0500 Body height 162.6 cm Jenny Salima SHEET METAL ERECTOR Work Phone: [facility] 03-24-2023 16:45-0500 Body mass index (BMI) [Ratio] 45.93 kg/m2 Jenny Salima SHEET METAL ERECTOR Work Phone: [facility] 03-24-2023 16:45-0500 Body temperature 97.11 [degF] Jenny Salima SHEET METAL ERECTOR Work Phone: [facility] 03-24-2023 16:45-0500 Body weight 121.38 kg Jenny Gaylez SHEET METAL ERECTOR Work Phone: [facility] 03-24-2023 16:45-0500 Diastolic blood pressure 70 mm[Hg] Jenny Gaylez SHEET METAL ERECTOR Work Phone: [facility] 03-24-2023 16:45-0500 Heart rate 76 /min Jenny Gaylez SHEET METAL ERECTOR Work Phone: [facility] 03-24-2023 16:45-0500 Respiratory rate 20 /min Jenny Gaylez SHEET METAL ERECTOR Work Phone: [facility] 03-24-2023 16:45-0500 SaO2% (BldA) [Mass fraction] 97 % Jenny Salima SHEET METAL ERECTOR Work Phone: [facility] 03-24-2023 16:45-0500 Systolic blood pressure 112 mm[Hg] Jenny Salima SHEET METAL ERECTOR Work Phone: [facility] 10-15-2022 12:17-0400 Body weight 117.03 kg Lex Pickens MD Work Phone: [facility] 07-30-2022 09:06-0400 Body temperature 97.8 [degF] DO Dawit House Work Phone: [facility] 07-30-2022 09:06-0400 Body weight 115.66 kg DO Dawit House Work Phone: [facility] 07-30-2022 09:06-0400 Diastolic blood pressure 72 mm[Hg] DO Dawit House Work Phone: [facility] 07-30-2022 09:06-0400 Heart rate 82 /min DO Dawit House Work Phone: [facility] 07-30-2022 09:06-0400 Respiratory rate 16 /min DO Dawit House Work Phone: [facility] 07-30-2022 09:06-0400 SaO2% (BldA) [Mass fraction] 97 % DO Dawit House Work Phone: [facility] 07-30-2022 09:06-0400 Systolic blood pressure 128 mm[Hg] DO Dawit House Work Phone: [facility] 06-16-2022 09:38-0400 Body height 162.56 cm DO Dawit House Work Phone: [facility] 06-02-2022 15:31-0400 Diastolic blood pressure 66 mm[Hg] DO Dawit House Work Phone: [facility] 06-02-2022 15:31-0400 Heart rate 81 /min DO Dawit House Work Phone: [facility] 06-02-2022 15:31-0400 Respiratory rate 18 /min DO Dawit House Work Phone: [facility] 06-02-2022 15:31-0400 SaO2% (BldA) [Mass fraction] 96 % DO Dawit House Work Phone: [facility] 06-02-2022 15:31-0400 Systolic blood pressure 114 mm[Hg] DO Dawit House Work Phone: [facility] 06-02-2022 15:01-0400 Inhaled oxygen flow rate 8 L/min DO Dawit House Work Phone: [facility] 06-02-2022 12:090400 Body height 162.56 cm DO Dawit Ba Work Phone: [facility] 06-02-2022 12:09-0400 Body temperature 98.7 [degF] DO Dawit Ba Work Phone: [facility] 06-02-2022 12:09040 Body weight 117.93 kg DO Dawit Ba Work Phone: [facility] 03-16-2022 13:36-0500 Body height 162.6 cm Lex Pickens MD Work Phone: [facility] 03-16-2022 13:36-0500 Body weight 120.2 kg Lex Pickens MD Work Phone: [facility] 03-16-2022 13:36-0500 Diastolic blood pressure 80 mm[Hg] Lex Pickens MD Work Phone: [facility] 03-16-2022 13:36-0500 Heart rate 87 /min Lex Pickens MD Work Phone: [facility] 03-16-2022 13:36-0500 Systolic blood pressure 128 mm[Hg] Lex Pickens MD Work Phone: [facility] 10-12-2021 12:53-0400 Body height 162.6 cm Lilly Tony MD Work Phone: [facility] 10-12-2021 12:53-0400 Body weight 117.94 kg Lilly Tony MD Work Phone: [facility] 10-12-2021 12:53-0400 Respiratory rate 20 /min Lilly Tony MD Work Phone: [facility] 07-27-2021 09:31-0400 Blood Pressure Location Jluis VENKAT [facility] 07-27-2021 09:31-0400 Diastolic blood pressure 73 mm[Hg] Jluis ROBLEDO [facility] 07-27-2021 09:31-0400 Heart rate 89 /min Jluis ROBLEDO [facility] 07-27-2021 09:31-0400 Systolic blood pressure 120 mm[Hg] Jluis ROBLEDO [facility] Encounters Encounter Date Encounter Type Care Provider Facility Start: 08-18-2023 End: 08-18-2023 ambulatory [facility] Start: 08-08-2023 ambulatory Joanne Brown Facility:[facility] Start: 07-12-2023 End: 07-12-2023 ambulatory LISETTE CUMMINS Not Available Start: 06-23-2023 End: 06-23-2023 ambulatory JENNY BORREGO Not Available Start: 06-15-2023 End: 06-15-2023 [facility] Lex Pickens MD Work Phone: Urology Comment on above: Other specified diso rders of kidney and ureter (Primary Dx); Renal mass; Morbid obesity (HCC); Type 2 diabetes mellitus with diabetic neuropathy, with long-term current use of insulin (HCC) Start: 05-17-2023 End: 05-17-2023 ambulatory LEX PICKENS Facility:[facility] Start: 05-02-2023 End: 05-03-2023 ambulatory WALESKA VASQUEZ Not Available Start: 04-28-2023 Telephone encounter Angie marin APRN.CNP Work Phone: Hematology/Oncology Comment on above: Orders Start: 04-13-2023 End: 04-13-2023 ambulatory DO Dawit Ba Work Phone: [facility] Work Phone: Start: 04-13-2023 End: 04-13-2023 Patient encounter procedure DO Dawit Ba Work Phone: [facility] [place] Work Phone: Start: 04-13-2023 Registered Recurring DO Maverick Ba Work Phone: [facility] Work Phone: Start: 04-05-2023 Refill Jenny Aichholz SHEET METAL ERECTOR Work Phone: [facility] Comment on above: Acute non-recurrent sinusitis of other sinus (Primary Dx) Start: 03-24-2023 End: 03-24-2023 Assay of hemosiderin, quant Jenny Aichholz SHEET METAL ERECTOR Work Phone: [facility] Start: 03-24-2023 End: 03-24-2023 Patient encounter procedure Jenny Aichholz SHEET METAL ERECTOR Work Phone: [facility] Comment on above: Encounter for annual wellness visit (AWV) in Medicare patient (Primary Dx); Type 2 diabetes mellitus with diabetic neuropathy, with long-term current use of insulin (CMS/HCC); CAD in [place] artery (CMS/HCC); Tobacco user; Malignant neoplasm of kidney, unspecified laterality (CMS/HCC); Type 2 diabetes mellitus with insulin therapy (CMS/HCC); Routine general medical examination at health care facility Start: 03-24-2023 End: 03-24-2023 Refill Jenny Aichholz SHEET METAL ERECTOR Work Phone: [facility] Comment on above: CAD in [place] artery (CMS/HCC) (Primary Dx) Start: 02-02-2023 End: 02-03-2023 ambulatory WALESKA Mccray APLING Not Available Start: 10-15-2022 End: 10-15-2022 [facility] Lex Pickens MD Work Phone: Urology Comment on above: Renal mass, right (P rimary Dx); Family history of renal cancer; Morbid obesity (HCC); Current every day smoker; Other specified disorders of kidney and ureter Start: 10-15-2022 End: 10-15-2022 ambulatory LEX PICKENS Facility:[facility] Start: 10-07-2022 End: 10-07-2022 ambulatory LEX PICKENS Facility:[facility] Start: 06-18-2022 End: 06-19-[address] DAWIT BA Facility: Start: 06-02-2022 End: 06-02-2022 Admission to same day surgery center DO Dawit Ba Work Phone: [facility] [place] Start: 06-02-2022 End: 06-02-2022 ambulatory DO Dawit Ba Work Phone: [facility] Work Phone: Start: 04-22-2022 End: 04-23-[address] DAWIT BA Facility: Start: 04-09-2022 End: 04-10-2022 [facility] Lex Pickens MD Work Phone: Urology Comment [...] V Leiden (HCC); Coronary artery disease involving [place] heart without angina pectoris, unspecified vessel or lesion type; Smoker; Morbid obesity (HCC); Other specified disorders of kidney and ureter; Renal mass Start: 03-05-2022 End: 03-06-2022 ambulatory MD Jluis ROBLEDO Facility:[facility] Start: 03-05-2022 End: 03-05-2022 Patient encounter procedure Jluis ROBLEDO [facility] Start: 02-01-2022 End: 02-02-[address] DAWIT BA Facility: Start: 11-09-2021 End: 11-09-2021 ambulatory DAWIT BA SR Facility:[facility] Start: 10-13-2021 Telephone encounter Lilly pruitt MD Work Phone: [facility] Comment on above: Patient Update Start: 10-12-2021 End: 10-12-2021 ambulatory DAWIT MADI BA SR Facility:[facility] Start: 10-12-2021 End: 10-12-2021 Patient encounter procedure Lilly Tony MD Work Phone: [facility] Comment on above: Closed fracture of l eft ankle, initial encounter (Primary Dx) Start: 09-21-2021 End: 09-21-2021 ambulatory LILLY TONY Facility:[facility] Start: 09-16-2021 Telephone encounter Ag Orth Work Phone: [facility] Comment on above: ER F/U Start: 09-12-2021 End: 09-12-2021 Emergency department patient visit DAWIT BA Facility:[facility] Start: 09-03-[address] DAWIT BA Facili ty:[facility] Start: 07-27-2021 End: 07-28-2021 ambulatory MD Jluis ROBLEDO Facility:[facility] [place] Start: 07-27-2021 End: 07-27-2021 Patient encounter procedure Jluis ROBLEDO [facility] [place] Start: 06-24-2021 ambulatory MD Jluis ROBLEDO Facil ity:[facility] [place] Procedures Date Procedure Procedure Detail Performing Clinician Start: 11-19-2022 Mammography Jenny beckett SHEET [employer]OR Work Phone: Start: 06-02-2022 Esophagogastroduodenoscopy DO Dawit Ba Work Phone: Start: 06-02-2022 Colonoscopy Jenny beckett SHEET [employer] E[employer]OR Work Phone: Abdominal hysterectomy Tatiana ROBLEDO Appendectomy Jluis ROBLEDO Bilateral tubal ligation Elayne ROBLEDO Cholecystectomy Jluis COXE RS Plan of Treatment Date Care Activity Detail Author Start: 06-02-2032 Screening for malign ant neoplasm of colon [facility] Start: 07-28-2025 Diabetes Screening Diabetes Screenin g [facility] Start: 03-24-2024 Medicare Annual Well ness (AWV) Medicare Annual Wellness (AWV) [facility] Start: 11-20-2023 Screening for malign ant neoplasm of breast Mammogram [facility] Start: 10-20-2023 Glaucoma screening Diabetes: R etinopathy Screening [facility] Start: 10-12-2023 Hemoglobin A1c measurement HbA1C [facility] Start: 09-28-2023 Urine screening for protein Diabetes: Urine Protein Screening [facility] Start: 06-23-2023 End: 06-23-2023 Patient encounter procedure 06/23/2023 10:30 AM EDT Office Visit [facility] [address] [place] [address] Jenny Borrego, ZELALEM [address] [place] [address] [facility] Start: 05-17-2023 End: 08-16-2023 CREATININE BLD CREATININE BLD Lab Routine Renal mass Expected: 05/17/2023 (Approximate), Expires: 08/16/2023 [facility] Work Phone: Comment on above: Expected: 05/17/2023 (Approximate), Expires: 08/16/2023 Start: 04-22-2023 End: 03-24-2024 Hemoglobin A1c measurement Hemoglobin A1c Lab Routine Type 2 diabetes mellitus with diabetic neuropathy, with long-term current use of insulin ([facility]) Expected: 04/22/2023 (Approximate), Expires: 03/24/2024 [facility] Work Phone: Comment on above: Expected: 04/22/2023 (Approximate), Expires: 03/24/2024 Start: 04-13-2023 Erythropoietin (EPO) [Units/volume] in Serum or Plasma [facility] Start: 04-13-2023 End: 04-13-2023 [facility] Start: 04-12-2023 Hemoglobin A1c measurement Diabetes: Hemoglobin A1C [facility] Start: 03-16-2023 [facility] Start: 02-21-2023 Behavioral Health Screening Behavioral Health Screening [facility] Start: 02-21-2023 Depression Assessment Depression Ass [facility] Start: 02-11-2023 [facility] Start: 01-26-2023 Shingrix Vaccine (2 of 2) Shingrix Vaccine (2 of 2) [facility] Start: 12-20-2022 [facility] Start: 10-22-2022 Covid-19 Vaccine () Covid-19 Vaccine () [facility] Start: 10-22-2022 Influenza vaccination C [facility] Start: 10-07-2022 End: 05-09-2023 Ct abdomen w/o & w/contrast material CT KIDNEY WO/W IVCON Radiology Routine Other specified disorders of kidney and ureter Expected: 10/07/2022, Expires: 05/09/2023 [facility] Work Phone: Comment on above: Expected: 10/07/2022 , Expires: 05/09/2023 Start: 07-26-2022 [facility] Start: 07-06-2022 [facility] Start: 07-01-2022 [facility] Start: 06-23-2022 End: 06-23-2022 [facility] Start: 06-23-2022 End: 06-23-2022 [facility] Start: 06-23-2022 [facility] Start: 06-02-2022 [facility] Start: 06-02-2022 [facility] Start: 04-05-2022 End: 06-05-2022 CREATININE BLD CREATININE BLD Lab Routine Renal mass Expected: 04/05/2022, Expires: 06/05/2022 [facility] Work Phone: Comment on above: Expected: 04/05/2022 , Expires: 06/05/2022 Start: 01-01-2023 DEPRESSION ASSESSMENT DEPRESSION ASS ESSMENT [facility] Start: 10-22-2021 Influenza vaccination INFLUENZA (#1) [facility] Start: 06-25-2021 COVID-19 VACCINE (4 - Booster for Pfizer series) COVID-19 VACCINE (4 - Booster for Pfizer series) [facility] Start: 04-22-2021 COVID-19 VACCINE (4 - Booster for Pfizer series) COVID-19 VACCINE (4 - Booster for Pfizer series) [facility] Start: 04-22-2021 COVID-19 VACCINE (4 - Pfizer series) COVID-19 VACCINE (4 - Pfizer series) [facility] Start: 07-23-2017 Pneumococcal vaccination Pneum ococcal Vaccine (2 of 2 - PCV) [facility] Start: 11-06-2015 SHINGRIX VACCINE (1 of 2) SHINGRIX VACCINE (1 of 2) [facility] Start: 2010 COLOGUARD (FIT-DNA) COLOGUARD (FIT-D NA) [facility] Start: 2010 Colonoscopy COLONOSCOPY [facility] Start: 2010 COLORECTAL CANCER SCREENING COLORECTAL CANCER SCREENING [facility] Start: [address] COLONOGRAPHY [facility] Start: 2010 DIABETES SCREEN DIABETES SCREEN [facility] Start: 2010 FECAL OCCULT BLOOD FECAL OCCULT BLOO D [facility] Start: 2010 Lipid panel Lipid Screening [facility] Start: 2010 LIPID SCREEN LIPID SCREEN [facility] Start: 2010 Screening for malign ant neoplasm of colon [facility] Start: 2010 SIGMOIDOSCOPY SIGMOIDOSCOPY [facility] Start: 2005 Mammography MAMMOGRAM [facility] Start: 2005 Screening for malign ant neoplasm of breast Mammogram Screening [facility] Start: 11-06-1995 HPV TESTING HPV TESTING [facility] Start: 11-06-1995 Screening for malign ant neoplasm of cervix [facility] Start: 1986 PAP TESTING PAP TESTING [facility] Start: 1986 Screening for malign ant neoplasm of cervix [facility] Start: 1984 Hepatitis B Vaccine (1 of 3 - 19+ 3-dose series) Hepatitis B Vaccine (1 of 3 - 19+ 3-dose series) [facility] Start: 09-15-1985 Urine microalbumin profile [facility] Start: 11-06-1983 ANNUAL PCP TEAM RADIO STATION OPERATOR ABIOLA DISEASE VISIT ANNUAL PCP TEAM CHRONIC DISEASE VISIT [facility] Start: 11-06-1983 Hepatitis B surface antibody level LDL CHOLESTEROL [facility] Start: 11-06-1983 HEPATITIS C SCREENING HEPATITIS C [facility] Start: 11-06-1983 Hepatitis C screening Hepatitis C [facility] Start: 11-06-1983 HIV SCREENING HIV SCREENING [facility] Start: 11-06-1983 HIV screening HIV Screening [facility] Start: 1977 Adult depression screening assessment DEPRESSION SCREENING [facility] Start: 11-06-1975 Diabetic foot examination Diabetic Foot Exam [facility] Start: 11-06-1975 Glaucoma screening Dilated Retinal E xam [facility] Start: 11-06-1975 Hepatitis B screening Urine Albumin:Creatinine Ratio [facility] Start: 11-06-1971 PNEUMOCOCCAL (1 - PCV) PNEUMOCOCCAL (1 - PCV) [facility] Start: 1965 HEPATITIS B (1 of 3 - 3-dose series) HEPATITIS B (1 of 3 - 3-dose series) [facility] Start: 1965 Hepatitis B Vaccine (1 of 3 - 3-dose series) Hepatitis B Vaccine (1 of 3 - 3-dose series) [facility] Start: 1965 Screening for malign ant neoplasm of colon [facility] metabo lic 2000 panel - Serum or Plasma [facility] End: 07-14-2024 CT Abdomen W contrast IV CT ABDOMEN W IVCON Radiology Routine Other specified disorders of kidney and ureter 1 Occurrences starting 06/15/2023 until 07/14/2024 [facility] Work Phone: Comment on above: 1 Occurrences starti ng 06/15/2023 until 07/14/2024 End: 11-15-2023 Ct abdomen w/o & w/contrast material CT KIDNEY WO/W IVCON Radiology Routine Renal mass, right Other specified disorders of kidney and ureter 1 Occurrences starting 10/16/2022 until 11/15/2023 [facility] Work Phone: Comment on above: 1 Occurrences starti ng 10/16/2022 until 11/15/2023 Erythropoietin (EPO) [Units/volume] in Serum or Plasma [facility] Glucose measurement estimated from glycated hemoglobin [facility] Methylmalonate [Moles/volume] in Serum or Plasma [facility] URINALYSIS, REFLEX MICROSCOPIC URINALYSIS, REFLEX MICROSCOPIC Lab Routine Screening for genitourinary condition Ordered: 10/15/2022 [facility] Work Phone: Comment on above: Ordered: 10/15/2022 XR ANKLE GENERAL 3V AP/LAT/OBL LEFT XR ANKLE GENERAL 3V AP/LAT/OBL LEFT Radiology Routine Closed fracture of left ankle, initial encounter Ordered: 10/12/2021 [facility] Work Phone: Comment on above: Ordered: 10/12/2021 [facility] Immunizations Immunization Date Immunization Notes Care Provider S[facility] 12-01-2022 influenza, injectabl e, quadrivalent, preservative free Jenny Aichholz SHEET [employer] E[employer]OR Work Phone: [facility] 12-01-2022 zoster vaccine recombinant Jenny Aichholz SHEET MET[employer] ERECTOR Work Phone: [facility] 12-18-2021 influenza virus vacc ine, unspecified formulation Jluis ROBLEDO [facility] 12-18-2021 Influenza, injectabl e, Madin Sag[facility] Canine Kidney, preservative free, quadrivalent Jenny Aichholz SHEET METAL ERECTOR Work Phone: [facility] 02-25-2021 influenza virus vacc ine, unspecified formulation Jluis ROBLEDO [facility] 02-25-2021 influenza, injectabl e, quadrivalent, preservative free Jenny Aichholz SHEET METAL ERECTOR Work Phone: [facility] 02-25-2021 SARS-CoV-2 (COVID-19 ) mRNA [id number] vax Jluis ROBLEDO [facility] 11-21-2020 influenza virus vacc ine, unspecified formulation Jluis ROBLEDO [facility] 11-12-2020 influenza virus vacc ine, unspecified formulation Jluis ROBLEDO [facility] 06-19-2020 SARS-CoV-2 mRNA (tozinameran 5y-11y) vaccine Jluis ROBLEDO [facility] 05-29-2020 SARS-CoV-2 mRNA (tozinameran 5y-11y) vaccine Jluis ROBLEDO [facility] 10-17-2018 influenza virus vacc ine, unspecified formulation Jluis ROBLEDO [facility] 10-17-2018 influenza, injectabl e, quadrivalent, preservative free Jenny Aichholz SHEET METAL ERECTOR Work Phone: [facility] 11-23-2017 influenza virus vacc ine, unspecified formulation Jluis ROBLEDO [facility] 11-23-2017 influenza, injectabl e, quadrivalent, preservative free Jenny Aichholz SHEET METAL ERECTOR Work Phone: [facility] 10-20-2017 influenza virus vacc ine, unspecified formulation Jluis ROBLEDO [facility] 10-20-2017 influenza, injectabl e, quadrivalent, preservative free Jenny Aichholz SHEET METAL ERECTOR Work Phone: [facility] 11-22-2016 influenza virus vacc ine, unspecified formulation Jluis ROBLEDO [facility] 11-22-2016 influenza, injectabl e, quadrivalent, preservative free Jenny Aichholz SHEET METAL ERECTOR Work Phone: [facility] 11-06-2016 influenza virus vacc ine, unspecified formulation Jluis ROBLEDO [facility] 11-06-2016 influenza, injectabl e, quadrivalent, preservative free Jenny Aichholz SHEET METAL ERECTOR Work Phone: [facility] 07-23-2016 pneumococcal polysaccharide vaccine, 23 valent Jluis ROBLEDO [facility] Payers Date Payer Category Payer Medicaid MEDICAID [facility] MEDICAID [id number] 2022-Present [phone] [address] [place] [address] Medicaid [id number] 2022 Private Health Insurance [id number] 2019 Medicare MEDICARE MEDICAR E A AND B [id number] 2019-Present [phone] [address] [address] [place] [address] Medicare [id number] 2019 Medicare [id number] 2019 Private Health Insurance [employer] [id number] 2019-Present [phone] [address] [place] [address] O [id number] 2019 Private Health Insurance [employer] [id number] 2019-Present [phone] [address] [place] [address] O [id number] 2019 Unknown [id number] 1965 Unknown [id number] 2.16.840.1.129785.3.579.2. 727 1965 Unknown [id number] 2.16.840.1.190871.3.579.2. 727 1965 Unknown [id number] 2.16.840.1.699108.3.579.2. 727 1965 Unknown [id number] 2.16.840.1.422240.3.579.2. 593 1965 Unknown [id number] 2.16.840.1.167904.3.579.2. 593 1965 Unknown [id number] 2.16.840.1.473623.3.579.2. 593 1965 Unknown [id number] 2.16.840.1.337334.3.579.2. 593 1965 Unknown [id number] 2.16.840.1.556389.3.579.2. 1259 1965 Unknown [id number] 2.16.840.1.109738.3.579.2. 1259 1965 Unknown [id number] 2.16.840.1.186602.3.579.2. 1259 1965 Unknown [id number] 2.16.840.1.741027.3.579.2. 1259 1965 Unknown [id number] 2.16.840.1.384543.3.579.2. 1259 1965 Unknown [id number] 2.16.840.1.387172.3.579.2. 1258 1965 Unknown [id number] 2.16.840.1.834663.3.579.2. 1259 1965 Unknown [id number] 2.16.840.1.861819.3.579.2. 1259 1959 Medicaid [id number] 1959 Medicare [id number] 1959 Private Health Insurance [id number] 1959 Self-pay [id number] Medicare [id number] Unknown Lj BC/BS [id number] Unknown [id number]. 531 Social History Date Type Detail Facility Start: 07-27-2021 End: 03-05-2022 Tobacco smoking status Heavy tobacco smoker (finding) [facility] Start: 10-15-2022 End: 03-24-2023 Sex Assigned At Female [facility] Tobacco smoking stat NHIS Tobacco smoking consumption unknown [facility] Start: 1965 Sex Assigned At Not on file [facility] Start: 09-02-2021 End: 10-12-2021 Exposure to SARS-CoV-2 (event) Not sure [facility] Start: 10-12-2021 End: 01-10-2023 Tobacco smoking status NHIS Smokes tobacco daily [facility] History of tobacco use Cigarette Smoker C [facility] Start: 10-12-2021 End: 01-10-2023 Tobacco use and exposure Smokeless tobacco non-user [facility] Start: 10-12-2021 End: 10-15-2022 Alcohol intake Ex-drinker (finding) [facility] Start: 06-02-2022 End: 07-30-2022 Tobacco smoking status NHIS Smoker (finding) [facility] Start: 1965 Sex Assigned At Female F [facility] Start: 10-15-2022 End: 03-24-2023 History of Social function [facility] National Score (1-10 0), lower number is lower risk 63 [facility] Within the last year , have you [...] Text Equipment Identifier Dates USE TWICE DAILY [id number] Start: 02-12-2023 Goals Date Patient Goal Desired Activity /State Functional Status Date Assessment Result Facility 03-05-2022 Functional Status N/A [facility] Clinical Notes 07-27-2021 to 08-18-2023 Lex Pickens MD - 06/15/2023 11:00 AM EDTTelephone Encounter - Josie Leong RN - 04/28/2023 12:15 PM Robert Borrego NP - 03/24/2023 7:10 PM Robert Borrego NP - 03/24/2023 7:07 PM EST Note Date & Type Note Facility 08-18-2023 Note [facility] Subjective Elmer Ellis is a 57 y.o. year old female patient being seen for 1 year follow up CAD, PAD, hx of DVT, and hyperlipidemia. Denies chest pain and palpitations. C/o LE edema. Gets lightheaded with coughing spells, and continues to smoke 1 PPD. Says her JORDAN is unchanged. Patient Active Problem List Diagnosis Coronary atherosclerosis Dyspnea on exertion Factor V Leiden (CMS/HCC) Hypertriglyceridemia History of deep vein thrombosis Intermittent claudication ([facility]/HCC) Tobacco dependence syndrome Smoker Renal mass Other specified disorders of kidney and ureter Morbid obesity ([facility]/HCC) Intermittent palpitations Abnormal PFT Abnormal stress test Anemia Anxiety and depression Arthritis Arthritis of left acromioclavicular joint Bilateral lower extremity edema Cancer of kidney ([facility]/HCC) Chondromalacia of left patella Chronic back pain Chronic bronchitis ([facility]/HCC) Chronic cough 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 ([facility]) Diabetic neuropathy, painful ([facility]) Encounter for annual wellness visit (AWV) in Medicare patient Environmental and seasonal allergies Family history of lung cancer Gallstone Gastroesophageal reflux disease without esophagitis History of varicose veins Incomplete bladder emptying Internal derangement of left knee Internal derangement of right knee Intestinal malabsorption, unspecified Iron deficiency anemia Lumbosacral plexus lesion Mucopurulent chronic bronchitis ([facility]) Neuropathy ELENA (obstructive sleep apnea) Osteoporosis Other acute sinusitis Yeast infection of the vagina Family History Problem Relation Name Age of Onset Diabetes Mother Heart attack Mother Other (epilepsy) Mother Coronary artery disease Mother Diabetes Father Coronary artery disease Father Heart attack Maternal Grandfather Social History Tobacco Use Smoking status: Every Day Packs/day: 1 Types: Cigarettes Smokeless tobacco: Never Substance Use Topics Alcohol use: Not Currently HPI Elmer is seen in follow-up. She is a 57-year-old woman with history of morbid obesity, diabetes [...] due to her prior history of DVT. Previously she was discovered to have hemoglobin of 7.3 and GI bleeding [melena]. She underwent endoscopy with no significant findings. She was treated with intravenous iron. Her hemoglobin improved. After visit with me in May 2022 I told her to stop Plavix. She continues to be on Xarelto 10 mg daily. She is taking furosemide 40 mg daily. She denies chest pain. She has been having shortness of breath with exertion NYHA class II symptoms. In addition she has been having worsening lower extremity edema. She also complains of claudication in both legs and she feels that the calfs are very tight with walking and she has to stop. No palpitations and no dizziness or lightheadedness. Review of Systems Cardiovascular: Positive for claudication and leg swelling. Respiratory: Positive for cough. All other systems reviewed and are negative. Objective Visit Vitals BP 118/66 (BP Location: Left arm, Patient Position: Sitting) Pulse 81 Ht 1.626 m (5' 4 ) Wt 124 kg (273 lb) SpO2 94% BMI 46.86 kg/m??? Smoking Status Every Day BSA 2.37 m??? Physical Exam Constitutional: Appearance: She is well-developed. She is obese. She is not ill-appearing. HENT: Head: Normocephalic and atraumatic. Nose: Nose normal. Eyes: General: No scleral icterus. Pupils: Pupils are equal, r (more content not included)... [facility] 06-15-2023 Note HNO ID: [id number] Author: LEX PICKENS MD Service: ? Author Type: Physician Type: Progress Notes Filed: 06/15/2023 12:22 Note Text: VIRTUAL VISIT PROGRESS NOTE This is a virtual visit using [employer] Video Visit. It required patient-provider interaction for the medical decision making as documented below. I have communicated my name and active licensure. The patient's identity and physical location were verified at the time of this visit. Either the patient or their legal data entry representative has been informed of the risks [...] mg by mouth twice daily. MV with Qkc-Zvhaqrbo-Uvmnoi (CENTRUM SILVER) 0.4 mg-300 mcg- 250 mcg tab Take by mouth. (Patient not taking: Reported on 03/16/2022) insulin 75/25 lispro protamine/lispro units/mL (HUMALOG MIX 75-25,U-100,INSULN) 100 units/mL susp as directed. HYDROcodone-acetaminophen (NORCO) 5-325 mg per tablet hydrocodone 5 mg-acetaminophen 325 mg tablet TAKE 1 TO 2 TABLETS BY MOUTH EVERY DAY AT BEDTIME NEEDED jmjqqbud-ykd-cwup-FA-lutein (CENTRUM SILVER WOMEN) 8 mg iron-400 mcg-300 [...] release 24 hr (more content not included)... [facility] 06-15-2023 History of Present illness Narrative VIRTUAL VISIT PROGRESS NOTE This is a virtual visit using [employer] Video Visit. It required patient-provider interaction for the medical decision making as documented below. I have communicated my name and active licensure. The patient's identity and physical location were verified at the time of this visit. Either the patient or their legal data entry representative has been informed of the risks [...] mg by mouth twice daily. MV with Jcl-Xwoozlen-Kmohog (CENTRUM SILVER) 0.4 mg-300 mcg- 250 mcg tab Take by mouth. (Patient not taking: Reported on 03/16/2022) insulin 75/25 lispro protamine/lispro units/mL (HUMALOG MIX 75-25,U-100,INSULN) 100 units/mL susp as directed. HYDROcodone-acetaminophen (NORCO) 5-325 mg per tablet hydrocodone 5 mg-acetaminophen 325 mg tablet TAKE 1 TO 2 TABLETS BY MOUTH EVERY DAY AT BEDTIME NEEDED gadhwbwj-epm-ecoy-FA-lutein (CENTRUM SILVER WOMEN) 8 mg iron-400 mcg-300 [...] which included preparing to see the patient, nsjm-rd-vtty patient care, and counseling and educating the patient/family/caregiver Lex Pickens MD documented in this encounter [facility] 05-17-2023 Note HNO ID: [id number] Author: FRANCO LACY RT(R) Service: Radiology Author [...] PATIENT PRESENTS WITH AN IMPLANTABLE OR ATTACHED ANDROID DEVELOPER: No RADIOLOGY DEPARTMENT: CT; Exam(s) Completed: Kidney PERIPHERAL IV DATA: Site assessment: Clean,Dry and Intact, Site disposition Discontinued 20g right forearm SIGNED BY: RT José Miguel(R) May 17, 2023 2:00 PM [facility] 05-17-2023 Note HNO ID: [id number] Author: JOI GREENE RN Service: ? Author [...] DATE: May 17, 2023 TIME: 2:02 PM [facility] 04-28-2023 Miscellaneous Notes Please sign pended Cre for upcoming CT. Pt needs updated lab before CT can be done Thank You! Josie Leong RN documented in this encounter [facility] 03-24-2023 History of Present illness Narrative Associated Problem(s): Encounter for annual wellness visit (AWV) in Medicare patient Reviewed Ht/Wt/BMI Recommend eye exam yearly Recommend dental exams twice a year Balance work/leisure activities Exercises is recommended most days of the week (appropriate as chronic conditions allow) Follow up yearly and prn Associated Problem(s): Type 2 diabetes mellitus with insulin therapy ([facility]) Check blood sugars daily, notify if <70 [...] in March Associated Problem(s): Cancer of kidney ([facility]) Continue with specialty for monitoring Associated Problem(s): CAD in [place] artery ([facility]) No acute angina symptoms Cont current meds [...] being taken. She does not see a jackscrew man.Eye exam is current. Hypertension This is a [...] Blood Gluc Sensor (FreeStyle Joelle 2 Sensor) [facility] USE TO TEST BLOOD SUGAR 4 TIMES [...] stress test Allergies Anemia Anxiety and depression ([facility]) Arthritis CAD in [place] artery ([facility]) Cancer of kidney ([facility]) Chronic back pain Chronic bronchitis ([facility]) Chronic cough Cigarette nicotine dependence Cough Diabetes mellitus type 2 in obese ([facility]) 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 ([facility]) Diabetic neuropathy, painful ([facility]) Factor V Leiden ([facility]) Factor 5 Leiden deficiency Family history of cancer High cholesterol ([facility]) History of DVT (deep vein thrombosis) history of DVT no PE History of kidney cancer History of pancreatitis History of pneumonia History of varicose veins Intermittent claudication ([facility]) Kidney problem spot on kidney Mucopurulent chronic bronchitis ([facility]) Neuropathy ELENA (obstructive sleep apnea) Osteoporosis ([facility]) Pneumonia Sinusitis Tobacco user Type 2 diabetes mellitus with insulin therapy ([facility]) 03/24/2023 Past Surgical History: Procedure Laterality Date [...] List Items Addressed This Visit CAD in [place] artery (CMS/HCC) No acute angina symptoms Cont current meds Goal: control BP, diabetes, lipids, and QUIT smoking Tobacco user Recommend quitting, pt declines Cancer of kidney ([facility]) Continue with specialty for monitoring Type 2 diabetes mellitus with diabetic neuropathy, with long-term current use of insulin ([facility]) Relevant Orders Hemoglobin A1c Type 2 diabetes mellitus with insulin therapy ([facility]) Check blood sugars daily, notify if <70 [...] MINI PEN NEEDLES 31G X 5 MM [facility] USE TWICE DAILY cilostazol (Pletal) 100 MG tablet TAKE 1 TABLET BY MOUTH TWICE A DAY DIRECTED Oral for 90 clopidogrel (Plavix) 75 MG tablet 1 (one) time each day at the same time. Continuous Blood Gluc Sensor (FreeStyle Joelle 2 Sensor) [facility] USE TO TEST BLOOD SUGAR 4 TIMES [...] Yes Vision Screening: Yes, patient sees regular wharf tender/watershed coordinator Hearing Screening: Not done Cognitive Screening Self Assessment: No overt cognitive deficiency is apparent by direct observation Three Word Registration: Banana, [place], Chair Clock Drawing: Normal Clock - 2 Three Word Recall: All 3 words correct - 3 Pain Assessment Pain Score: 0 - No pain Advance Care Planning Do you have a living will?: No Do you have a medical power of real estate attorney?: No Objective : BP 112/70 (BP [...] March 24, 2023 documented in this encounter [facility] 10-15-2022 Note Patient Outreach (UR OLMN) ELMER ELLIS ([id number]) 1965 F Date Time Provider Department 10/15/22 LEX PICKENS During your visit today, we recorded the following information about you: Allergies As of Date: 10/15/2022 (No Known Allergies) Date Reviewed: 10/15/2022 Reviewed by: Angie Mcclellan APRN.MARKETING PROPOSAL SPECIALIST - Fully Assessed Visit Diagnosis:Screening for genitourinary condition [Z13.89] Order(s):URINALYSIS, REFLEX MICROSCOPIC [BCP4755] Order #: [id number] Prescriptions as of 10/18/2022 - DULoxetine (CYMBALTA) [...] by mouth twice daily. - MV with Isy-Knvnriyc-Kylrtq (CENTRUM SILVER) 0.4 mg-300 mcg- 250 mcg tab Take by mouth. - insulin 75/25 lispro protamine/lispro units/mL (HUMALOG MIX 75-25,U-100,INSULN) 100 units/mL susp as directed. - HYDROcodone-acetaminophen (NORCO) 5-325 mg per tablet hydrocodone 5 mg-acetaminophen 325 mg tablet TAKE 1 TO 2 TABLETS BY MOUTH EVERY DAY AT BEDTIME NEEDED - drfquipn-kxc-tpkz-FA-lutein (CENTRUM SILVER WOMEN) 8 mg iron-400 mcg-300 [...] (HCC) [D68.51] 04/19/2022 Coronary artery disease involving [place] heart *04/19/2022 Smoker [F17.200] 04/19/2022 Morbid obesity (HCC) [E66.01] 04/19/2022 Other specified disorders of kidney and ureter *04/19/2022 Encounter Status:Closed by [employer] ConcardUSER on 10/18/22 [facility] 10-15-2022 Note HNO ID: [id number] Author: Angie Mcclellan APRN.MARKETING PROPOSAL SPECIALIST Service: ? Author Type: Nurse Practitioner Type: Progress Notes Filed: 10/16/2022 9:14 AM Note Text: VIRTUAL VISIT PROGRESS NOTE This is a virtual visit using Rostima video visit. It required patient-provider interaction for the medical decision making as documented below. I have communicated my name and active licensure. The patient's identity and physical location were verified at the time of this visit. Either the patient or their legal data entry representative has been informed of the risks [...] mg by mouth twice daily. MV with Kni-Qgqlkufx-Dxtoel (CENTRUM SILVER) 0.4 mg-300 mcg- 250 mcg tab Take by mouth. (Patient not taking: Reported on 03/16/2022) insulin 75/25 lispro protamine/lispro units/mL (HUMALOG MIX 75-25,U-100,INSULN) 100 units/mL susp as directed. HYDROcodone-acetaminophen (NORCO) 5-325 mg per tablet hydrocodone 5 mg-acetaminophen 325 mg tablet TAKE 1 TO 2 TABLETS BY MOUTH EVERY DAY AT BEDTIME NEEDED qmcbfcps-eyt-gplq-FA-lutein (CENTRUM SILVER WOMEN) 8 mg iron-400 mcg-300 mcg tab furosemide (LASIX) 40 mg tablet furosemide 40 mg tablet TAKE 1 AND 1/2 TABLETS BY MOUTH DAILY clopidogrel (PLAVIX) 75 mg tablet clopidogrel 75 mg tablet TAKE 1 TABLET BY MOUTH EVERY DAY metoprolol succinate ER (TOPROL XL) 25 mg 24 hr tablet met (more content not included)... [facility] 10-15-2022 History of Present illness Narrative VIRTUAL VISIT PROGRESS NOTE This is a virtual visit using Rostima video visit. It required patient-provider interaction for the medical decision making as documented below. I have communicated my name and active licensure. The patient's identity and physical location were verified at the time of this visit. Either the patient or their legal data entry representative has been informed of the risks [...] mg by mouth twice daily. MV with Tlo-Eldkrtvw-Uwxhld (CENTRUM SILVER) 0.4 mg-300 mcg- 250 mcg tab Take by mouth. (Patient not taking: Reported on 03/16/2022) insulin 75/25 lispro protamine/lispro units/mL (HUMALOG MIX 75-25,U-100,INSULN) 100 units/mL susp as directed. HYDROcodone-acetaminophen (NORCO) 5-325 mg per tablet hydrocodone 5 mg-acetaminophen 325 mg tablet TAKE 1 TO 2 TABLETS BY MOUTH EVERY DAY AT BEDTIME NEEDED jhmguyny-ljs-ctdd-FA-lutein (CENTRUM SILVER WOMEN) 8 mg iron-400 mcg-300 [...] which included preparing to see the patient, enef-cq-fznj patient care, completing clinical documentation, counseling and educating the patient/family/caregiver, and ordering medications, tests, or procedures Angie Mcclellan APRN.MARKETING PROPOSAL SPECIALIST documented in this encounter [facility] 10-07-2022 Note HNO ID: [id number] Author: Christel Hua RT([place]) Service: ? Author Type: Technologist Type: Progress [...] IV DATA: Not applicable SIGNED BY: RT Luan(R) October 07, 2022 10:33 AM [facility] 04-09-2022 History of Present illness Narrative Images from the original note [...] mg by mouth twice daily. MV with Vvb-Xygematm-Udentu (CENTRUM SILVER) 0.4 mg-300 mcg- 250 mcg tab Take by mouth. (Patient not taking: Reported on 03/16/2022) insulin 75/25 lispro protamine/lispro units/mL (HUMALOG MIX 75-25,U-100,INSULN) 100 units/mL susp as directed. HYDROcodone-acetaminophen (NORCO) 5-325 mg per tablet hydrocodone 5 mg-acetaminophen 325 mg tablet TAKE 1 TO 2 TABLETS BY MOUTH EVERY DAY AT BEDTIME NEEDED jwagpwdx-wjf-zoyn-FA-lutein (CENTRUM SILVER WOMEN) 8 mg iron-400 mcg-300 [...] prescribing physician. I25.10 Coronary artery disease involving [place] heart without angina pectoris, unspecified vessel or [...] Scribe Attestation: By signing my name below, Jody Grant, attest that this documentation has been prepared under the direction and in the presence of Dr. Lex Pickens MD. Electronically signed: Saad Abad, April 09, 2022 12:26 PM Lex Grant MD, personally performed the services described in this documentation. All medical record entries made by the scribe were at my direction and in my presence. I have reviewed the chart and discharge instructions (if applicable) and agree that the record reflects my personal performance and is accurate and complete. Lex Pickens MD documented in this encounter [facility] 03-19-2022 Miscellaneous Notes Please sign pending Cre order for upcoming CT with contrast on 04/05/22. Thank you. Joi Austin RN documented in this encounter [facility] 03-16-2022 History of Present illness Narrative Referring Provider: Self Chief Complaint: [...] provoked DVT after knee surgery (2016), CAD, HLD, morbid obesity Radiation History: none [...] prescribing physician. I25.10 Coronary artery disease involving [place] heart without angina pectoris, unspecified vessel or lesion type Comment: Will need cardiology clearance. F17.200 Smoker Comment: Smoking cessation counseling done today. Discussed link between smoking and RCC. E66.01 Morbid obesity (HCC) Comment: Weight loss counseling done today. Discussed link between obesity and RCC. Isabelleibe Attestation: By signing my name below, IJody, attest that this documentation has been prepared under the direction and in the presence of Dr. Lex Pickens MD. Electronically signed: Saad Abad, March 16, 2022 3:05 PM ILex MD, personally performed the services described in this documentation. All medical record entries made by the isabelleibsami were at my direction and in my presence. I have reviewed the chart and discharge instructions (if applicable) and agree that the record reflects my personal performance and is accurate and complete. Lex Pickens MD documented in this encounter [facility] 03-05-2022 Hospital Discharge instructions Patient Education 03/05/2022 11:04:20 Renal Mass [...] provider gives to you. In general: Take idjz-zgq-bsglyvf and prescription medicines only as told by [...] 09/04/2014 Document Revised: 03/16/2018 Document Reviewed: 03/16/2018 Method Patient Education 2020 Strap. Follow Up Care 07/27/2021 10:19:10 With:VENKAT SAWYER, Jluis Jacinto, URL Address: [address] [place] [address]- When: Unknown [facility] 11-09-2021 Note HNO ID: [id number] Author: Lilly Tony MD Service: ? Author [...] mg by mouth twice daily. MV with Nmr-Bjfqwfxz-Lajqrn (CENTRUM SILVER) 0.4 mg-300 mcg- 250 mcg tab Take by mouth. insulin 75/25 lispro protamine/lispro units/mL (HUMALOG MIX 75-25,U-100,INSULN) 100 units/mL susp as directed. HYDROcodone-acetaminophen (NORCO) 5-325 mg per tablet hydrocodone 5 mg-acetaminophen 325 mg tablet TAKE 1 TO 2 TABLETS BY MOUTH EVERY DAY AT BEDTIME NEEDED xpfwktqc-scz-ccdq-FA-lutein (CENTRUM SILVER WOMEN) 8 mg iron-400 mcg-300 [...] activity without re (more content not included)... [facility] 10-19-2021 Note HNO ID: [id number] Author: Lilly Tony MD Service: ? Author [...] mg by mouth twice daily. MV with Xbf-Frekjsoy-Ppicat (CENTRUM SILVER) 0.4 mg-300 mcg- 250 mcg tab Take by mouth. insulin 75/25 lispro protamine/lispro units/mL (HUMALOG MIX 75-25,U-100,INSULN) 100 units/mL susp as directed. HYDROcodone-acetaminophen (NORCO) 5-325 mg per tablet hydrocodone 5 mg-acetaminophen 325 mg tablet TAKE 1 TO 2 TABLETS BY MOUTH EVERY DAY AT BEDTIME NEEDED jddjpqya-puz-kvwx-FA-lutein (CENTRUM SILVER WOMEN) 8 mg iron-400 mcg-300 [...] lower extremity. S (more content not included)... [facility] 10-18-2021 History of Present illness Narrative ORTHOPAEDIC OFFICE NOTE CHIEF COMPLAINT: [...] mg by mouth twice daily. MV with Mqh-Mtvarcsa-Rmwwmy (CENTRUM SILVER) 0.4 mg-300 mcg- 250 mcg tab Take by mouth. insulin 75/25 lispro protamine/lispro units/mL (HUMALOG MIX 75-25,U-100,INSULN) 100 units/mL susp as directed. HYDROcodone-acetaminophen (NORCO) 5-325 mg per tablet hydrocodone 5 mg-acetaminophen 325 mg tablet TAKE 1 TO 2 TABLETS BY MOUTH EVERY DAY AT BEDTIME NEEDED hhbdpasm-pim-zuht-FA-lutein (CENTRUM SILVER WOMEN) 8 mg iron-400 mcg-300 [...] Lilly Tony MD documented in this encounter [facility] 10-13-2021 Miscellaneous Notes Received voicemail from patient [...] bear any weight. Patient has taken 1 Beaum[place] about an hour ago and said it is not helping the pain at all. Advised I would send message to and call patient once direction is received. Patient understood and had no further questions. Filomena Madrigal October 13, 2021 11:23 AM documented in this encounter [facility] 09-22-2021 Note HNO ID: [id number] Author: Lilly Tony MD Service: ? Author [...] with nonweightbearing status. She will occasionally take [place]um[place] for pain relief which is effective. She is also supplemented with mgwc-zyr-tcofboa pain medications. Her medical history significant for Beatties, coronary artery disease, diabetes and associated lower extremity neuropathy, DVT requiring Plavix and Xarelto for anticoagulation. 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 She also has kidney cancer that is [...] by mouth twice daily. - MV with Emy-Fhtxdtlg-Obdfcf (CENTRUM SILVER) 0.4 mg-300 mcg- 250 mcg tab Take by mouth. - insulin 75/25 lispro protamine/lispro units/mL (HUMALOG MIX 75-25,U-100,INSULN) 100 units/mL susp as directed. - HYDROcodone-acetaminophen (NORCO) 5-325 mg per tablet hydrocodone 5 mg-acetaminophen 325 mg tablet TAKE 1 TO 2 TABLETS BY MOUTH EVERY DAY AT BEDTIME NEEDED - dvyzoyye-mip-fcix-FA-lutein (CENTRUM SILVER WOMEN) 8 mg iron-400 mcg-300 [...] lymphadenopathy Peripheral Pulses (more content not included)... [facility] 09-16-2021 Miscellaneous Notes Called and spoke to patient regarding L ankle fracture OS 09/12/21. Patient was seen at [facility] ED after falling she fell in [...] which facility was the patient seen at: - [facility] / 09.12.2021 Was an appointment scheduled (Y/N): n Person calling if other than patient: n Return call to if other than patient: n Best contact number: [phone] Thank you, Peggy Wigginsno September 15, 2021 4:27 PM documented in this encounter [facility] 07-27-2021 Hospital Discharge instructions Patient Education 07/27/2021 10:20:06 Renal Mass [...] provider gives to you. In general: Take lujl-jdy-overuhu and prescription medicines only as told by [...] 09/04/2014 Document Revised: 03/16/2018 Document Reviewed: 03/16/2018 Method Patient Education 2020 Strap. 07/27/2021 10:06:53 Calorie Counting for Weight Loss [...] 02/07/2006 Document Revised: 10/27/2018 Document Reviewed: 01/07/2017 Method Patient Education Tryouts. Follow Up Care 06/24/2021 14:48:04 With:VENKAT SAWYER, Jluis Jacinto, URL Address: [facility] [address], [place] [address]- [phone] When:01/26/2022 Comments:[address] scan [facility] Evaluation + Plan note Future Appointments Appointment Date:02/01/2022 11:15:00 AM Scheduled Provider:Jluis ROBLEDO MD Location:[facility] Appointment Type:URO Office Visit Diagnostic Tests PendingBUN 07/27/21Creatinine 07/27/21 [facility] Evaluation + Plan note [facility] Evaluation note Diagnosis Closed fracture of left ankle, initial encounter- Primary [facility] Diagnosis Renal mass- Primary Unspecified disorder of kidney and ureter [facility] Diagnosis Renal mass, right- Primary Unspecified disorder of kidney and ureter Factor V Leiden (HCC) Primary hypercoagulable state Coronary artery disease involving [place] heart without angina pectoris, unspecified vessel or lesion type Smoker Tobacco use disorder Morbid obesity (HCC) Morbid obesity 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 mass Unspecified disorder of kidney and ureter [facility] Diagnosis Other specified disorders of kidney and ureter- Primary [facility] noteNo assessment [facility] Work Phone: Evaluation note* Diagnosis Renal mass, right- Primary Unspecified disorder of kidney and ureter Family history of renal cancer Family history of malignant neoplasm of kidney Morbid obesity (HCC) Morbid obesity Current every day smoker Tobacco use disorder Other specified disorders of kidney and ureter [facility]* Diagnosis Screening for genitourinary condition Screening for other and unspecified genitourinary condition [facility] Diagnosis Encounter for annual wellness visit (AWV) in Medicare patient- Primary Type 2 diabetes mellitus with diabetic neuropathy, with long-term current use of insulin (CMS/HCC) CAD in [place] artery (CMS/HCC) Tobacco user Tobacco use disorder Malignant neoplasm of kidney, unspecified laterality (CMS/HCC) Type 2 diabetes mellitus with insulin therapy ([facility]/HCC) Routine general medical examination at health care facility Routine general medical examination at a health care facility documented in this encounter [facility]* Diagnosis CAD in [place] artery (CMS/HCC)- Primary documented in this encounter [facility]* Diagnosis Acute non-recurrent sinusitis of other sinus- Primary documented in this encounter [facility]* Diagnosis Onset Date Resolution Status Iron deficiency anemia acute [facility] Work Phone: Evaluation note* Diagnosis Renal mass- Primary Unspecified disorder of kidney and ureter [facility]* Diagnosis Other specified disorders of kidney and ureter- Primary Renal mass Unspecified disorder of kidney and ureter Morbid obesity (HCC) Morbid obesity Type 2 diabetes mellitus with diabetic neuropathy, with long-term current use of insulin ([facility]) [facility] Narrative No data available for this section [facility] progress note No data available for this section [facility] reason for referral (narrative)* Diagnostic Procedure Only (Routine) - Pending Review Specialty Diagnoses / Procedures Referred By Contac t Referred To Contact XR IMAGING Diagnoses Closed fracture of left ankle, initial encounter Procedures XR ANKLE GENERAL 3V AP/LAT/OBL LEFT RADEX ANKLE COMPLETE MINIMUM 3 VIEWS Lilly Tony MD [address] [address] Xr Imaging Referral ID Status Reason Start Date Expiration Date Visits Requested Visits Authorized [id number] Pending Review Auto-Generat ed Referral 10/12/2021 11/11/2022 1 1 [facility] for referral (narrative) Referred by: VENKAT SAWYER, Jluis Jacinto [facility] Summary Purpose Family History No Family History Records Found Relationship Condition Age at Onset Recorded Date/T moi Not Specified Myocardial infarction Unknown Diabetes mellitus Unknown Hypertension Unknown sister Malignant neoplasm of lung Unknown father Diabetes mellitus Unknown Transient ischemic attack Unknown Advance Directives No Advanced Directives Records FoundDocuments on File Type Date Recorded Patient [place] Rider Expl anation Advance Directive(s) 09/12/2021 2:13 PM [...] W & W/O CONTRAST Lex Pickens [facility] [address] [facility] [id number] [facility] [place] [address] Referral ID Status Reason Start Date Expiration Date Visits Requested Visits Authorized [id number] Pending Review Auto-Generat ed Referral 10/16/2022 11/15/2023 1 1 Specialty Diagnoses / Procedures Referred By April valdez Referred To Contact CT IMAGING Diagnoses Other specified disorders of kidney and ureter Procedures CT KIDNEY WO/W IVCON CT ABDOMEN W & W/O CONTRAST Judson Quiroga MD [address] [id number] Imaging Referral ID Status Reason Start Date Expiration Date V isits Requested Visits Authorized [id number] Closed Auto-Generate d Referral 03/16/2022 04/15/2023 1 1 Chief Complaint and Reason for Visit Chief Complaint Anemia, Lower Hemogl obin Chief Complaint Anemia E11.40 Z79.4 Reason for Visit Iron deficiency anem ia Additional Source Comments INFORMATION SOURCE (unrecogn ized section and content) DATE CREATED AUTHOR 12/25/2020 [facility] DATE CREATED AUTHOR AUTHOR'S ORGANIZ ATION 07/25/2021 [facility] DATE CREATED AUTHOR AUTHOR'S ORGANIZ ATION 11/22/2021 [facility] DATE CREATED AUTHOR AUTHOR'S ORGANIZ ATION 03/05/2022 [facility] DATE CREATED AUTHOR AUTHOR'S ORGANIZ ATION 06/25/2022 [facility] DATE CREATED AUTHOR AUTHOR'S ORGANIZ ATION 06/16/2023 [facility] DATE CREATED AUTHOR AUTHOR'S ORGANIZ ATION 07/14/2023 [facility] DATE CREATED AUTHOR AUTHOR'S ORGANIZ ATION 08/08/2023 [facility] DATE CREATED AUTHOR AUTHOR'S ORGANIZ ATION 08/19/2023 [facility] Source Comments (unrecognize d section and content) In the event this informatio n is protected by the Federal Confidentiality of Alcohol and Drug Abuse Patient Records regulations: The Federal rules restrict any use of the information to criminally investigate or prosecute any alcohol or drug abuse patient.[facility] Center[facility] the event this information is protected by the Federal Confidentiality of Alcohol and Drug Abuse Patient Records regulations: The Federal rules restrict any use of the information to criminally investigate or prosecute any alcohol or drug abuse patient.[facility] Center[facility] the event this information is protected by the Federal Confidentiality of Alcohol and Drug Abuse Patient Records regulations: The Federal rules restrict any use of the information to criminally investigate or prosecute any alcohol or drug abuse patient.[facility] CenterIn the event this information is protected by the Federal Confidentiality of Alcohol and Drug Abuse Patient Records regulations: The Federal rules restrict any use of the information to criminally investigate or prosecute any alcohol or drug abuse patient.[facility] Center[facility] the event this information is protected by the Federal Confidentiality of Alcohol and Drug Abuse Patient Records regulations: The Federal rules restrict any use of the information to criminally investigate or prosecute any alcohol or drug abuse patient.[facility] CenterIn the event this information is protected by the Federal Confidentiality of Alcohol and Drug Abuse Patient Records regulations: The Federal rules restrict any use of the information to criminally investigate or prosecute any alcohol or drug abuse patient.[facility] CenterIn the event this information is protected by the Federal Confidentiality of Alcohol and Drug Abuse Patient Records regulations: The Federal rules restrict any use of the information to criminally investigate or prosecute any alcohol or drug abuse patient.[facility] CenterIn the event this information is protected by the Federal Confidentiality of Alcohol and Drug Abuse Patient Records regulations: The Federal rules restrict any use of the information to criminally investigate or prosecute any alcohol or drug abuse patient.[facility] CenterIn the event this information is protected by the Federal Confidentiality of Alcohol and Drug Abuse Patient Records regulations: The Federal rules restrict any use of the information to criminally investigate or prosecute any alcohol or drug abuse patient.[facility] CenterIn the event this information is protected by the Federal Confidentiality of Alcohol and Drug Abuse Patient Records regulations: The Federal rules restrict any use of the information to criminally investigate or prosecute any alcohol or drug abuse patient.[facility] Reason for Visit (unrecogniz ed section and content) Reason Comments ER F/U Reason Comments Patient Update Reason Comments Established Patient Follow Up Reason Comments Orders CT Reason Comments Consult Reason Comments Follow Up Reason Comments Orders Care Teams (unrecognized sec tion and content) Rn Cardiovascular Relationship Specialty Start Date End Date Dawit Ba Sr. PCP - General Family Practice 10/24/14 Rn Cardiovascular Relationship Specialty Start Date End Date Dawit Ba Sr. PCP - General Family Practice 10/24/14 Rn Cardiovascular Relationship Specialty Start Date End Date Dawit Ba Sr. PCP - General Family Practice 10/24/14 Rn Cardiovascular Relationship Specialty Start Date End Date Dawit Ba Sr. PCP - General Family Medicine 10/24/14 Rn Cardiovascular Relationship Specialty Start Date End Date Dawit Ba Sr. PCP - General Family Medicine 10/24/14 Rn Cardiovascular Relationship Specialty Start Date End Date Dawit Ba Sr. PCP - General Family Medicine 10/24/14 Team Status: Active Member Role Status Dates Dawit Ba , Primary Care Provider Active Team Status: Inactive Member Role Status Dates Dawit Ba , Primary Care Provider Active Bebo Sims DO Attending Provider Active Rn Cardiovascular Relationship Specialty Start Date End Date Dawit Ba Sr. PCP - General Family Medicine 10/24/14 Rn Cardiovascular Relationship Specialty Start Date End Date Dawit Ba Sr. PCP - General Family Medicine 10/24/14 Rn Cardiovascular Relationship Specialty Start Date End Date Ludin Blanchard MD PCP - General Family Medicine 10/06/22 Jenny Borrego NP [address] [place] [phone] Nurse Practitioner [facility] Medicine 12/27/22 Rn Cardiovascular Relationship Specialty Start Date End Date Ludin Blanchard MD PCP - General Family Medicine 10/06/22 Jenny Borrego NP [address] [place] [phone] Nurse Practitioner Family Medicine 12/27/22 Rn Cardiovascular Relationship Specialty Start Date End Date Ludin Blanchard MD PCP - General Family Medicine 10/06/22 Jenny Borrego NP [address] [place] [id number] Nurse Practitioner [facility] 12/27/22 Team Status: Active Member Role Status Dates Jenny Borrego Primary Care Provider Active Team Status: Active Member Role Status Dates Dawit Ba DO Referring Provider Active Sta rt: April 13, 2023 Joanne Brown APRN Attending Provider Active Start: March Jenny Borrego Primary Care Provider Active Sta rt: April 13, 2023 Team Status: Inactive Member Role Status Dates Jenny Borrego Primary Care Provide r, Attending Provider Active Start: April 13, 2023 End: April 13, 2023 Rn Cardiovascular Relationship Specialty Start Date End Date Dawit Ba Sr., PCP - General Family Medicine 10/24/14 Rn Cardiovascular Relationship Specialty Start Date End Date Dawit Ba Sr., DO PCP - General Family Medicine 10/24/14 FOR [...] BE BASED ON THE PRIMARY CLINICAL RECORDS. [facility] [employer] [facility]. provides no warranty or guarantee of the accuracy or completeness of information in this document.
== END 2023-09-08 11:31 | disposition home or self-care (01) ==
LOC: VC 11:30
PROVIDERS: PCP Nurse Practitioner; Visit Provider Internal Medicine Interventional Cardiology
DX: I73.9 Peripheral vascular disease, unspecified (principal)
CPT/HCPCS: 93922

== ENCOUNTER 2023-09-15 07:24 | Outpatient (OUT) | payer MEDICARE, MEDICAID, SELFPAY ==
--- OUTSIDE RECORDS SUMMARY | 2023-09-15 07:28 | XMS_ITS | CCD ---
Author Organization [facility] Care Team Providers Care Mathematics Department Chair Name Role Phone Dawit Ba Primary Care Physician [place] Sr., Dawit Aviles Primary Care Provider [place] Sr., Dawit Aviles Primary Care Provider SEABECK SR, DAWIT AVILES Primary Care Unavai lable HOUSE SR, DAWIT MADI Primary Care Unavai lable LILLY TONY Attending Unavailable TONY, LILLY Attending Unavailable HOUSE SR, DAWIT [facility] Care Unavai lable HOUSE SR, DAWIT [facility] Care UnavaLILLY Phan Attending Unavailable MD Jluis ROBLEDO Attending Unavailable House, Dawit Hong Referring Unavail able MD Jluis ROBLEDO Attending Unavailable [place] Sr., Dawit Aviles Primary Care Provider DO Dawit Ba Primary Care Provider DO Bebo Sims Attending Provider HOUSE, DR PRITCHETT Attending Unavailable SEABECK, DR PRITCHETT Consulting Unavailable SEABECK, DR PRITCHETT Primary Care Unavailable SEABECK, DR PRITCHETT Admitting Unavailable SEAB[place]K, DR PRITCHETT Attending Unavailable HOUSE, DR PRITCHETT Consulting Unavailable SEABECK, DR PRITCHETT Primary Care Unavailable HOUSE, DR PRITCHETT Admitting Unavailable HOUSE, DR PRITCHETT Primary Care Unavailable VENKAT ., DR KING Attending Unavailable ROBLEDO ., DR KING Consulting Unavailable ROBLEDO ., DR KING Admitting [facility]available [facility] DR MICHOACANO Jacinto Consulting Unavailable SEABECK, DR PRITCHETT Attending Unavailable HOUSE, DR PRITCHETT Primary Care Unavailable [place]K, DR PRITCHETT Admitting Unavailable Ludin Blanchard MD Primary Care Provider Salima WINDERMAN, Jenny Unavailable DO Dawit Ba Referring Provider [phone] CJ Brown Attending Provider Jenny Borrego Primary Care Provider [phone] Jenny Borrego Attending Provider [phone] Dawit [place] Primary Care Prov [...] (1 source) Gluten Drug allergy (disorder) [facility] (1 source) Wheat preparation Drug Allergy [facility] (1 source) Misc-Food; Translations: [Misc-Food] Food allergy (disorder) [facility] Medications Current Medications Medication Drug [...] EVERY DAY Continuous Blood Gluc Sensor (FreeStyle Jeolle 2 Sensor) misc (4 sources) Start: 09-23-2022 [...] Start: 07-27-2021 take 1 capsule by mo [facility] twice daily gabapentin 300 mg Cap 300 [...] Comment on above: Take 1,[address] [facility] twice daily. methocarbamol 500 mg oral tablet [...] (Centrum Silver 50+Women) tablet Orally 0 Active safynzpb-dbl-zvlr-FA- lutein (CENTRUM SILVER WOMEN) 8 mg iron-400 mcg-300 mcg tab (9 sources) lftlnevj-rxt-esk n-FA -lutein (CENTRUM SILVER WOMEN) 8 mg iron-400 mcg-300 mcg tab MV with Zip-Lwkfztdm-Cfyijk (CENTRUM SILVER) 0.4 mg-300 mcg- 250 mcg tab (9 sources) Start: 07-28-19 22 MV with Xht-Misakdbp-Pqjshx (CENTRUM SILVER) 0.4 mg-300 mcg- 250 mcg [...] Coronary arteriosclerosis; Translations: [Atherosclerotic heart disease of hamilton coronary artery without angina pectoris] Onset: 0 [...] Range Facility Office Visiton 08-18-2023 Follow-up visit [id number] Sarah Ellis 1965 F Date Provider Department Center 08/18/2023 MALIK CLAUDIO Family History Problem Relation Age of Onset Diabetes Mother Heart attack Mother Other Mother Coronary artery disease Mother Diabetes Father Coronary artery disease Father Heart attack Maternal Grandfather Family Status - Relation Status Age at Mother Father Maternal Grandfather Level of Service:13676 [place] OFFICE/OUTPATIENT ESTABLISHED MOD MDM 30 MIN Normal [facility] Complete Blood Count Auto Di ffon 07-07-2023 Basophils (Bld) [#/Vol] 0.1 10*3/uL Normal 0.0-0.2 [facility] Comment on above: Result Comment: PERF ORMED BY: [place] [address] PATHOLOGIST SWEATBAND CUTTING MACHINE OPERATOR YU ACOSTA M.D. Performed By: #### C BC, CMP, FE and TIBC, JAQUELINE, [id number] #### [address] #### METH, EPO #### [facility] , Basophils/100 WBC (Bld) 0.6 % Normal . [facility] Comment on above: Performed By: #### C BC, CMP, FE and TIBC, JAQUELINE, [id number] #### [address] #### METH, EPO #### [facility] , Eosinophils (Bld) [#/Vol] 0.2 10*3/uL Normal 0.0-0.45 [facility] Comment on above: Performed By: #### C BC, CMP, FE and TIBC, JAQUELINE, [id number] #### [address] #### METH, EPO #### [facility] , Eosinophils/100 WBC (Bld) 1.8 % Normal . [facility] Comment on above: Performed By: #### C BC, CMP, FE and TIBC, JAQUELINE, [id number] #### [address] #### METH, EPO #### [facility] , Erythrocyte distribution width (RBC) [Ratio] 14.8 % Normal 11.9-15.3 [facility] Comment on above: Performed By: #### C BC, CMP, FE and TIBC, JAQUELINE, [id number] #### [address] #### METH, EPO #### [facility] , Hematocrit (Bld) [Volume fraction] 43.6 % Normal 34.0-46.4 [facility] Comment on above: Performed By: #### C BC, CMP, FE and TIBC, JAQUELINE, [id number] #### [place] [address] [place] #### METH, EPO #### [facility] , Hemoglobin (Bld) [Mass/Vol] 14.4 g/dL Normal 11.8-15.4 [facility] Comment on above: Performed By: #### C BC, CMP, FE and TIBC, JAQUELINE, [id number] #### [address] #### METH, EPO #### [facility] , Lymphocytes (Bld) [#/Vol] 2.7 10*3/uL Normal 1.00-4.8 [facility] Comment on above: Performed By: #### C BC, CMP, FE and TIBC, JAQUELINE, [id number] #### [place] [address] [place] #### METH, EPO #### [facility] , Lymphocytes/100 WBC (Bld) 24.7 % Normal . [facility] Comment on above: Performed By: #### C BC, CMP, FE and TIBC, JAQUELINE, [id number] #### [place] [address] [place] #### METH, EPO #### [facility] , MCH (RBC) [Entitic mass] 30.5 pg Normal 24.7-34.3 [facility] Comment on above: Performed By: #### C BC, CMP, FE and TIBC, JAQUELINE, [id number] #### [place] [address] [place] #### METH, EPO #### [facility] , MCV (RBC) [Entitic vol] 92.1 fL Normal 80-100 [facility] Comment on above: Performed By: #### C BC, CMP, FE and TIBC, JAQUELINE, [id number] #### [address] #### METH, EPO #### [facility] , Mean Corpuscular HGB Conc 33.1 g/dL Normal 32.0-35.0 [facility] Comment on above: Performed By: #### C BC, CMP, FE and TIBC, JAQUELINE, [id number] #### [place] [address] [place] #### METH, EPO #### [facility] , Monocytes (Bld) [#/Vol] 0.6 10*3/uL Normal 0.0-0.8 [facility] Comment on above: Performed By: #### C BC, CMP, FE and TIBC, JAQUELINE, [id number] #### [place] [address] [place] #### METH, EPO #### [facility] , Monocytes/100 WBC (Bld) 5.3 % Normal . [facility] Comment on above: Performed By: #### C BC, CMP, FE and TIBC, JAQUELINE, [id number] #### [place] [address] [place] #### METH, EPO #### [facility] , Neutrophils (Bld) [#/Vol] 7.5 10*3/uL Normal 1.8-7.7 [facility] Comment on above: Performed By: #### C BC, CMP, FE and TIBC, JAQUELINE, [id number] #### [address] #### METH, EPO #### [facility] , Neutrophils/100 WBC (Bld) 67.6 % Normal . [facility] Comment on above: Performed By: #### C BC, CMP, FE and TIBC, JAQUELINE, [id number] #### [place] [address] [place] #### METH, EPO #### [facility] , NRBC% 0.1 /100{WBC} Normal 0-0.5 [facility] Comment on above: Performed By: #### C BC, CMP, FE and TIBC, JAQUELINE, [id number] #### [address] #### METH, EPO #### [facility] , Platelet mean volume (Bld) [Entitic vol] 9.7 fL Normal 6.3-10.7 [facility] Comment on above: Performed By: #### C BC, CMP, FE and TIBC, JAQUELINE, [id number] #### [place] [address] [place] #### METH, EPO #### [facility] , Platelets (Bld) [#/Vol] 169 10*3/uL Normal 150-450 [facility] Comment on above: Performed By: #### C BC, CMP, FE and TIBC, JAQUELINE, [id number] #### [place] [address] [place] #### METH, EPO #### [facility] , RBC (Bld) [#/Vol] 4.73 10*6/uL Normal 3.60-5.00 [facility] Comment on above: Performed By: #### C BC, CMP, FE and TIBC, JAQUELINE, [id number] #### [place] [address] [place] #### METH, EPO #### [facility] , WBC (Bld) [#/Vol] 11.0 10*3/uL Normal 3.8-11.6 [facility] Comment on above: Performed By: #### C BC, CMP, FE and TIBC, JAQUELINE, [id number] #### [address] #### METH, EPO #### [facility] , Comprehensive Metabolic Pane mikki 07-07-2023 Albumin [Mass/Vol] 3.8 g/dL Normal 3.5-5.7 [facility] Comment on above: Performed By: #### C BC, CMP, FE and TIBC, JAQUELINE, [id number] #### [place] [address] [place] #### METH, EPO #### [facility] , Albumin/Globulin [Mass ratio] 1.4 {ratio} Normal [facility] Comment on above: Performed By: #### C BC, CMP, FE and TIBC, JAQUELINE, [id number] #### [place] [address] [place] #### METH, EPO #### [facility] , ALP [Catalytic activity/Vol] 167 U/L High 34-104 [facility] Comment on above: Performed By: #### C BC, CMP, FE and TIBC, JAQUELINE, [id number] #### [place] [address] [place] #### METH, EPO #### [facility] , ALT [Catalytic activity/Vol] 21 U/L Normal 7-52 [facility] Comment on above: Performed By: #### C BC, CMP, FE and TIBC, JAQUELINE, [id number] #### [place] [address] [place] #### METH, EPO #### [facility] , Anion gap [Moles/Vol] 13.5 mmol/L Normal 6.0-15.0 [facility] Comment on above: Performed By: #### C BC, CMP, FE and TIBC, JAQUELINE, [id number] #### [place] [address] [place] #### METH, EPO #### [facility] , AST [Catalytic activity/Vol] 15 U/L Normal 13-39 [facility] Comment on above: Performed By: #### C BC, CMP, FE and TIBC, JAQUELINE, [id number] #### [place] [address] [place] #### METH, EPO #### [facility] , Bilirubin [Mass/Vol] 0.4 mg/dL Normal 0.3-1.0 [facility] Comment on above: Performed By: #### C BC, CMP, FE and TIBC, JAQUELINE, [id number] #### [place] [address] [place] #### METH, EPO #### [facility] , Calcium [Mass/Vol] 8.6 mg/dL Normal 8.6-10.3 [facility] Comment on above: Performed By: #### C BC, CMP, FE and TIBC, JAQUELINE, [id number] #### [place] [address] [place] #### METH, EPO #### [facility] , Chloride [Moles/Vol] 102 mmol/L Normal 98-107 [facility] Comment on above: Performed By: #### C BC, CMP, FE and TIBC, JAQUELINE, [id number] #### [place] [address] [place] #### METH, EPO #### [facility] , CO2 [Moles/Vol] 26.8 mmol/L Normal 21.0-31.0 [facility] Comment on above: Performed By: #### C BC, CMP, FE and TIBC, JAQUELINE, [id number] #### [place] [address] [place] #### METH, EPO #### [facility] , Creatinine [Mass/Vol] 1.18 mg/dL Normal 0.60-1.20 [facility] Comment on above: Performed By: #### C BC, CMP, FE and TIBC, JAQUELINE, [id number] #### [place] [address] [place] #### METH, EPO #### [facility] , Creatinine Clr Calc Pharmacy 65.67 Normal [facility] Comment on above: Performed By: #### C BC, CMP, FE and TIBC, JAQUELINE, [id number] #### [place] [address] [place] #### METH, EPO #### [facility] , GFR/1.73 sq M.predicted MDRD (S/P/Bld) [Vol rate/Area] 53.873 mL/min/{1.73_m2} Normal [facility] Comment on above: Performed By: #### C BC, CMP, FE and TIBC, JAQUELINE, [id number] #### [place] [address] [place] #### METH, EPO #### [facility] , Globulin (S) [Mass/Vol] 2.8 g/dL Normal [facility] Comment on above: Performed By: #### C BC, CMP, FE and TIBC, JAQUELINE, [id number] #### [facility] [address] [place] [address] [place] #### METH, EPO #### [facility] , Glucose [Mass/Vol] 215 mg/dL High 70-100 [facility] Comment on above: Result Comment: [place] Glucose Reference Range is dependent on time and content of last meal. Glucose of more than 200 mg/dL in a nonstressed, ambulatory subject supports the diagnosis of Diabetes Mellitus. ADA recommended reference range Performed By: #### C BC, CMP, FE and TIBC, JAQUELINE, [id number] #### [place] [address] [place] #### METH, EPO #### [facility] , Potassium [Moles/Vol] 4.3 mmol/L Normal 3.5-5.1 [facility] Comment on above: Performed By: #### C BC, CMP, FE and TIBC, JAQUELINE, [id number] #### [place] [address] [place] #### METH, EPO #### [facility] , Protein [Mass/Vol] 6.6 g/dL Normal 6.4-8.9 [facility] Comment on above: Performed By: #### C BC, CMP, FE and TIBC, JAQUELINE, [id number] #### [place] [address] [place] #### METH, EPO #### [facility] , Sodium [Moles/Vol] 138 mmol/L Normal 136-145 [facility] Comment on above: Performed By: #### C BC, CMP, FE and TIBC, JAQUELINE, [id number] #### [place] [address] [place] #### METH, EPO #### [facility] , Urea nitrogen [Mass/Vol] 21 mg/dL Normal 7-25 [facility] Comment on above: Performed By: #### C BC, CMP, FE and TIBC, JAQUELINE, [id number] #### [place] [address] [place] #### METH, EPO #### [facility] , Erythropoetin (EPO), Serumon 07-07-2023 Erythropoetin (EPO), Serum 23.3 m[iU]/mL High 2.6-18.5 [facility] Comment on above: Result Comment: [employer] UniCel DxI 800 Immunoassay System Values obtained with different assay methods or kits cannot be used interchangeably. Results cannot be interpreted as absolute evidence of the presence or absence of malignant disease. Performed at: [address] [id number] [place] B[place]: Hieu Willams PhD, Phone: [phone] PERFORMED BY: [place] [address] PATHOLOGIST SWEATBAND CUTTING MACHINE OPERATOR YU ACOSTA M.D. Performed By: #### C BC, CMP, FE and TIBC, JAQUELINE, [id number] #### [address] #### METH, EPO #### [facility] , Ferritinon 07-07-2023 Ferritin [Mass/Vol] 154.7 ng/mL Normal 11.0-306.8 [facility] Comment on above: Performed By: #### C BC, CMP, FE and TIBC, JAQUELINE, [id number] #### [address] #### METH, EPO #### [facility] , Iron and TIBC Profileon 06-21 % Iron Saturation 33.9 % Normal 20-50 [facility] Comment on above: Performed By: #### C BC, CMP, FE and TIBC, JAQUELINE, [id number] #### [address] #### METH, EPO #### [facility] , Iron [Mass/Vol] 84 ug/dL Normal 50-212 [facility] Comment on above: Performed By: #### C BC, CMP, FE and TIBC, JAQUELINE, [id number] #### [place] [address] [place] #### METH, EPO #### [facility] , Total Iron Binding Capacity 248 ug/dL Low 255-450 [facility] Comment on above: Performed By: #### C BC, CMP, FE and TIBC, JAQUELINE, [id number] #### [place] [address] [place] #### METH, EPO #### [facility] , Transferrin [Mass/Vol] 177 mg/dL Low 203-362 [facility] Comment on above: Performed By: #### C BC, CMP, FE and TIBC, JAQUELINE, [id number] #### [address] #### METH, EPO #### [facility] , Methylmalonic Acidon 024 Methylmalonic Acid 202 Normal 0-378 [facility] Comment on above: Result Comment: This test was developed and its performance characteristics determined by [facility]. It has not been cleared or approved by the Food and Drug Administration. Performed at: [address] [id number] [place]: Amara Coyne MD, Phone: [phone] Performed By: #### C BC, CMP, FE and TIBC, JAQUELINE, [id number] #### [place] [address] [place] #### METH, EPO #### [facility] , Vit. B12/Folate Profileon Cobalamin (Vitamin B12) [Mass/Vol] 493 pg/mL Normal 180-914 [facility] Comment on above: Performed By: #### C BC, CMP, FE and TIBC, JAQUELINE, [id number] #### [place] [address] [place] #### METH, EPO #### [facility] , Folate 30.0 ng/mL Normal >5.9 [facility] Comment on above: Result Comment: Sherry te reference range: >5.9 ng/ml The WHO technical consultation on folate and vitamin b12 deficiencies has determined that folate concentrations less than 4 ng/ml are considered deficient. PERFORMED BY: [facility] [address] [facility] [place] [address] PATHOLOGIST SWEATBAND CUTTING MACHINE OPERATOR YU ACOSTA M.D. Performed By: #### C BC, CMP, FE and TIBC, JAQUELINE, [id number] #### [facility] [address] [place] [address] [place] #### METH, EPO #### [facility] , CREATININE BLDon 05-17-2023 Creatinine [Mass/Vol] 1.19 mg/dL High 0.58-0.96 [facility] Comment on above: Order Comment: Speci men Type: BLOOD SPECIMEN Ordering Facility: [facility] Address: [address] [place] [address] Performed By: #### C RET1 #### [facility] CLIA [id number] [address] [place] [address] Creatinine and Glomerular filtration rate.predicted panel (S/P/Bld) 53 mL/min/1.73m??? Low >=60 [facility] Comment on above: Order Comment: Speci men Type: BLOOD SPECIMEN Ordering Facility: [facility] Address: [address] [place] [address] Result Comment: Terri mated Glomerular Filtration Rate [...] GFR. Performed By: #### C RET1 #### [facility] CLIA [id number] [address] [place] [address] CT KIDNEY WO/W IVCONon 05-16 CT KIDNEY WO/W IVCON * * *Final Report* * * DATE OF EXAM: May 17 2023 2:01PM [facility] 0546 - CT KIDNEY WO/W [...] or blastic osseous abnormality. Lower thorax: Unremarkable. Equipment Installer (topogram) images: No additional findings. IMPRESSION: 1. [...] any questions regarding this interpretation, please call [phone]. If you are unable to reach us at the number above, please feel free to contact [facility] at [phone]. [id number] Normal [facility] CNPNon 04-28-2023 CNPN Telephone (HEMTSA) ELMER ELLIS ([id number]) 1965 F Date Time Provider Department 04/28/23 [...] Date Reviewed: 10/15/2022 Reviewed by: Angie Mcclellan, ELECTRICAL ENGINEERING DESIGNER.FLATWORK PRESSER - Fully Assessed Reason for Visit: Orders [681] Primary Visit Diagnosis:Renal mass [N28.89] Order(s):CREATININE BLD [SQCRET] Order #: [id number] FUTURE Prescriptions as of 04/28/2023 - DULoxetine [...] by mouth twice daily. - MV with Ieo-Boymioeg-Safbcn (CENTRUM SILVER) 0.4 mg-300 mcg- 250 mcg tab Take by mouth. - insulin 75/25 lispro protamine/lispro units/mL (HUMALOG MIX 75-25,U-100,INSULN) 100 units/mL susp as directed. - HYDROcodone-acetaminophen (NORCO) 5-325 mg per tablet hydrocodone 5 mg-acetaminophen 325 mg tablet TAKE 1 TO 2 TABLETS BY MOUTH EVERY DAY AT BEDTIME NEEDED - vgkbxael-chk-gacy-FA-lutein (CENTRUM SILVER WOMEN) 8 mg iron-400 mcg-300 [...] (HCC) [D68.51] 04/19/2022 Coronary artery disease involving hamilton heart *04/19/2022 Smoker [F17.200] 04/19/2022 Morbid obesity (HCC) [E66.01] 04/19/2022 Other specified disorders of kidney and ureter *04/19/2022 Encounter Status:Closed by ANGIE MCCLELLAN on 04/28/23 Normal [facility] A1C with Estimated Average G dwight 04-13-2023 Glucose [Mass/Vol] 189 mg/dL Normal [facility] Comment on above: Result Comment: PERF ORMED BY: [place] [address] PATHOLOGIST SWEATBAND CUTTING MACHINE OPERATOR YU ACOSTA M.D. Performed By: #### C BC, CMP, FE and TIBC, JAQUELINE, [id number] #### [address] #### METH, EPO #### [facility] , HbA1c (Bld) [Mass fraction] 8.2 % High 4.3-5.6 [facility] Comment on above: Result Comment: Incr eased risk for diabetes: 5.7 - 6.4 diabetes: >6.4 glycemic control for adults with diabetes: <7.0 Performed By: #### C BC, CMP, FE and TIBC, JAQUELINE, [id number] #### [address] #### METH, EPO #### [facility] , Alanine aminotransferase [En zymatic activity/volume] in Serum or PlasmaOrdered By: Lilly Christianson on 04-13-2023 ALT [Catalytic activity/Vol] 40 U/L Normal 7- [facility] Comment on above: Performed By: #### C BC, CMP, FE and TIBC, JAQUELINE, [id number] #### [facility] [address] [place] [address] [place] #### METH, EPO #### [facility] , Albumin [Mass/volume] in Ser um or Plasma by Bromocresol green (BCG) dye binding methoOrdered By: Lilly Christianson on 04-13-2023 Albumin BCG dye [Mass/Vol] 3.9 g/dL 3.5-5.7 [facility] Alkaline phosphatase [Enzyma tic activity/volume] in Serum or PlasmaOrdered By: Lilly Christianson on 04-13-2023 ALP [Catalytic activity/Vol] 182 U/L High 34-104 [facility] Comment on above: Performed By: #### C BC, CMP, FE and TIBC, JAQUELINE, [id number] #### [facility] [address] [place] [address] [place] #### METH, EPO #### [facility] , Aspartate aminotransferase [ Enzymatic activity/volume] in Serum or PlasmaOrdered By: Lilly Christianson on 04-13-2023 AST [Catalytic activity/Vol] 22 U/L Normal 13-39 [facility] Comment on above: Performed By: #### C BC, CMP, FE and TIBC, JAQUELINE, [id number] #### [facility] [address] [place] [address] [place] #### METH, EPO #### [facility] , Automated basophil %Ordered By: Lilly Christianson on 04-13-2023 Basophils/100 WBC (Bld) 0.9 % Normal . [facility] Comment on above: Performed By: #### C BC, CMP, FE and TIBC, JAQUELINE, [id number] #### [facility] [address] [place] [address] [place] #### METH, EPO #### [facility] , Automated basophil countOrde red By: Lilly Christianson on 04-13-2023 Basophils (Bld) [#/Vol] 0.1 10*3/uL Normal 0.0-0.2 [facility] Comment on above: Result Comment: PERF ORMED BY: [place] [address] PATHOLOGIST SWEATBAND CUTTING MACHINE OPERATOR YU ACOSTA M.D. Performed By: #### C BC, CMP, FE and TIBC, JAQUELINE, [id number] #### [address] #### METH, EPO #### [facility] , Automated blood monocyte cou ntOrdered By: Lilly Christianson on 04-13-2023 Monocytes (Bld) [#/Vol] 0.8 10*3/uL Normal 0.0-0.8 [facility] Comment on above: Performed By: #### C BC, CMP, FE and TIBC, JAQUELINE, [id number] #### [place] [address] [place] #### METH, EPO #### [facility] , Automated eosinophil %Ordere d By: Lilly Christianson on 04-13-2023 Eosinophils/100 WBC (Bld) 2.9 % Normal . [facility] Comment on above: Performed By: #### C BC, CMP, FE and TIBC, JAQUELINE, [id number] #### [place] [address] [place] #### METH, EPO #### [facility] , Automated eosinophil countOr dered By: Lilly Christianson on 04-13-2023 Eosinophils (Bld) [#/Vol] 0.3 10*3/uL Normal 0.0-0.45 [facility] Comment on above: Performed By: #### C BC, CMP, FE and TIBC, JAQUELINE, [id number] #### [place] [address] [place] #### METH, EPO #### [facility] , Automated monocyte %Ordered By: Lilly Christianson on 04-13-2023 Monocytes/100 WBC (Bld) 7.4 % Normal . [facility] Comment on above: Performed By: #### C BC, CMP, FE and TIBC, JAQUELINE, [id number] #### [address] #### METH, EPO #### [facility] , Automated neutrophil %Ordere d By: Lilly Christianson on 04-13-2023 Neutrophils/100 WBC (Bld) 65.0 % Normal . [facility] Comment on above: Performed By: #### C BC, CMP, FE and TIBC, JAQUELINE, [id number] #### [address] #### METH, EPO #### [facility] , Bilirubin.total [Mass/volume ] in Serum or PlasmaOrdered By: Lilly Christianson on 04-13-2023 Bilirubin [Mass/Vol] 0.3 mg/dL Normal 0.3-1.0 [facility] Comment on above: Performed By: #### C BC, CMP, FE and TIBC, JAQUELINE, [id number] #### [place] [address] [place] #### METH, EPO #### [facility] , Calcium [Mass/volume] in Ser um or PlasmaOrdered By: Lilly Christianson on 04-13-2023 Calcium [Mass/Vol] 8.9 mg/dL Normal 8.6-10.3 [facility] Comment on above: Performed By: #### C BC, CMP, FE and TIBC, JAQUELINE, [id number] #### [place] [address] [place] #### METH, EPO #### [facility] , Carbon dioxide, total [Moles /volume] in Serum or PlasmaOrdered By: Lilly Christianson on 04-13-2023 CO2 [Moles/Vol] 30.8 mmol/L Normal 21.0-31.0 [facility] Comment on above: Performed By: #### C BC, CMP, FE and TIBC, JAQUELINE, [id number] #### [place] [address] [place] #### METH, EPO #### [facility] , Chloride [Moles/volume] in S jigar or PlasmaOrdered By: Lilly Christianson on 04-13-2023 Chloride [Moles/Vol] 100 mmol/L Normal 98-107 [facility] Comment on above: Performed By: #### C BC, CMP, FE and TIBC, JAQUELINE, [id number] #### [address] #### METH, EPO #### [facility] , Complete Blood Count Auto Di ffon 04-13-2023 Mean Corpuscular HGB Conc 33.1 g/dL Normal 32.0-35.0 [facility] Comment on above: Performed By: #### C BC, CMP, FE and TIBC, JAQUELINE, [id number] #### [place] [address] [place] #### METH, EPO #### [facility] , NRBC% 0.1 /100{WBC} Normal 0-0.5 [facility] Comment on above: Performed By: #### C BC, CMP, FE and TIBC, JAQUELINE, [id number] #### [place] [address] [place] #### METH, EPO #### [facility] , Comprehensive Metabolic Pane mikki 04-13-2023 Albumin [Mass/Vol] 3.9 g/dL Normal 3.5-5.7 [facility] Comment on above: Performed By: #### C BC, CMP, FE and TIBC, JAQUELINE, [id number] #### [place] [address] [place] #### METH, EPO #### [facility] , Creatinine Clr Calc Pharmacy 58.71 Normal [facility] Comment on above: Performed By: #### C BC, CMP, FE and TIBC, JAQUELINE, [id number] #### [place] [address] [place] #### METH, EPO #### [facility] , GFR/1.73 sq M.predicted MDRD (S/P/Bld) [Vol rate/Area] 47.091 mL/min/{1.73_m2} Normal [facility] Comment on above: Performed By: #### C BC, CMP, FE and TIBC, JAQUELINE, [id number] #### [address] #### METH, EPO #### [facility] , Creatinine [Mass/volume] in Serum or PlasmaOrdered By: Lilly Christianson on 04-13-2023 Creatinine [Mass/Vol] 1.32 mg/dL High 0.60-1.20 [facility] Comment on above: Performed By: #### C BC, CMP, FE and TIBC, JAQUELINE, [id number] #### [place] [address] [place] #### METH, EPO #### [facility] , Erythrocyte distribution wid th [Ratio] by Automated countOrdered By: Lilly Christianson on 04-13-2023 Erythrocyte distribution width (RBC) [Ratio] 15.6 % High 11.9-15.3 [facility] Comment on above: Performed By: #### C BC, CMP, FE and TIBC, JAQUELINE, [id number] #### [place] [address] [place] #### METH, EPO #### [facility] , Erythrocytes [#/volume] in B lood by Automated countOrdered By: Lilly Christianson on 02-21-2024 RBC (Bld) [#/Vol] 4.91 10*6/uL Normal 3.60-5.[address] [facility] Comment on above: Performed By: #### C BC, CMP, FE and TIBC, JAQUELINE, [id number] #### [address] #### METH, EPO #### [facility] , Erythropoetin (EPO), Serumon 04-13-2023 Erythropoetin (EPO), Serum 29.5 m[iU]/mL High 2.6-18.5 [facility] Comment on above: Result Comment: [employer] DxI 800 Immunoassay System Values obtained with different assay methods or kits cannot be used interchangeably. Results cannot be interpreted as absolute evidence of the presence or absence of malignant disease. Performed at: [address] [id number] [place]: Hieu Willams PhD, Phone: [phone] PERFORMED BY: [place] [address] PATHOLOGIST [employer]WE[employer] CUTTING MACHINE OPERATOR YU ACOSTA M.D. Performed By: #### C BC, CMP, FE and TIBC, JAQUELINE, [id number] #### [address] #### METH, EPO #### [facility] , Ferritin [Mass/volume] in Se rum or PlasmaOrdered By: Lilly Christianson on 04-13-2023 Ferritin [Mass/Vol] 102.5 ng/mL Normal 11.0-306.8 [facility] Comment on above: Performed By: #### C BC, CMP, FE and TIBC, JAQUELINE, [id number] #### [place] [address] [place] #### METH, EPO #### [facility] , Folate [Mass/volume] in Seru m or PlasmaOrdered By: Lilly Christianson on 04-13-2023 Folate [Mass/Vol] 4.7 ng/mL >5.9 [facility] Comment on above: Folate reference ran ge: >5.9 ng/mlThe WHO technical consultation on folate and vitamin [id number] has determined that folate concentrations lessthan 4 ng/ml are considered deficient. Glucose [Mass/volume] in Ser um or PlasmaOrdered By: Lilly Christianson on 04-13-2023 Glucose [Mass/Vol] 242 mg/dL High 70-100 [facility] Comment on above: ADA recommended refe rence rangeRandom Glucose Reference Range is dependent on time and content of last meal. Glucose of more than 200 mg/dL in a nonstressed, ambulatory subject supports the diagnosis of Diabetes Mellitus. Result Comment: [place] Glucose Reference Range is dependent on time and content of last meal. Glucose of more than 200 mg/dL in a nonstressed, ambulatory subject supports the diagnosis of Diabetes Mellitus. ADA recommended reference range Performed By: #### C BC, CMP, FE and TIBC, JAQUELINE, [id number] #### [place] [address] [place] #### METH, EPO #### [facility] , Hematocrit [Volume Fraction] of Blood by Automated countOrdered By: Lilly Christianson on 04-13-2023 Hematocrit (Bld) [Volume fraction] 44.7 % Normal 34.0-46.4 [facility] Comment on above: Performed By: #### C BC, CMP, FE and TIBC, JAQUELINE, [id number] #### [place] [address] [place] #### METH, EPO #### [facility] , Hemoglobin [Mass/volume] in BloodOrdered By: Lilly Christianson on 04-13-2023 Hemoglobin (Bld) [Mass/Vol] 14.8 g/dL Normal 11.8-15.4 [facility] Comment on above: Performed By: #### C BC, CMP, FE and TIBC, JAQUELINE, [id number] #### [place] [address] [place] #### METH, EPO #### [facility] , Iron [Mass/volume] in Serum or PlasmaOrdered By: Lilly Christianson on 04-13-2023 Iron [Mass/Vol] 129 ug/dL Normal 50-212 [facility] Comment on above: Performed By: #### C BC, CMP, FE and TIBC, JAQUELINE, [id number] #### [facility] [address] [place] [address] [place] #### METH, EPO #### [facility] , Iron and TIBC Profileon 03-25 % Iron Saturation 50.0 % Normal 20-50 [facility] Comment on above: Performed By: #### C BC, CMP, FE and TIBC, JAQUELINE, [id number] #### [facility] [address] [place] [address] [place] #### METH, EPO #### [facility] , Total Iron Binding Capacity 258 ug/dL Normal 255-450 [facility] Comment on above: Performed By: #### C BC, CMP, FE and TIBC, JAQUELINE, [id number] #### [facility] [address] [place] [address] [place] #### METH, EPO #### [facility] , Iron binding capacity [Mass/ volume] in Serum or PlasmaOrdered By: Lilly Christianson on 04-13-2023 Iron binding capacity [Mass/Vol] 258 ug/dL 255-450 [facility] Iron saturation [Mass Fracti on] in Serum or PlasmaOrdered By: Lilly Christianson on 04-13-2023 Iron saturation [Mass fraction] 50.0 % 20-50 [facility] Leukocytes [#/volume] correc nikki for nucleated erythrocytes in Blood by Automated counOrdered By: Lilly Christianson on 04-13-2023 WBC corrected for nucl RBC Auto (Bld) [#/Vol] 10.9 10*3/uL 3.8-11.6 [facility] Leukocytes [#/volume] in Blo od by Automated countOrdered By: Lilly Christianson on 04-13-2023 WBC (Bld) [#/Vol] 10.9 10*3/uL Normal 3.8-11.[address] [facility] Comment on above: Performed By: #### C BC, CMP, FE and TIBC, JAQUELINE, [id number] #### [place] [address] [place] #### METH, EPO #### [facility] , Lymphocytes [#/volume] in Bl ood by Automated countOrdered By: Lilly Christianson on 04-13-2023 Lymphocytes (Bld) [#/Vol] 2.6 10*3/uL Normal 1.00-4.8 [facility] Comment on above: Performed By: #### C BC, CMP, FE and TIBC, JAQUELINE, [id number] #### [place] [address] [place] #### METH, EPO #### [facility] , Lymphocytes/100 leukocytes i n Blood by Automated countOrdered By: Lilly Christianson on 04-13-2023 Lymphocytes/100 WBC (Bld) 23.8 % Normal . [facility] Comment on above: Performed By: #### C BC, CMP, FE and TIBC, JAQUELINE, [id number] #### [place] [address] [place] #### METH, EPO #### [facility] , MCH [Entitic mass] by Automa nikki countOrdered By: Lilly Christianson on 04-13-2023 MCH (RBC) [Entitic mass] 30.1 pg Normal 24.7-34.3 [facility] Comment on above: Performed By: #### C BC, CMP, FE and TIBC, JAQUELINE, [id number] #### [place] [address] [place] #### METH, EPO #### [facility] , MCHC Auto (RBC) [Mass/Vol]Or dered By: Lilly Christianson on 04-13-2023 MCHC (RBC) [Mass/Vol] 33.1 g/dL 32.0-35.0 [facility] MCV [Entitic volume] by Auto mated countOrdered By: Lilly Christianson on 04-13-2023 MCV (RBC) [Entitic vol] 90.9 fL Normal 80-100 [facility] Comment on above: Performed By: #### C BC, CMP, FE and TIBC, JAQUELINE, [id number] #### [facility] [address] [place] [address] [place] #### METH, EPO #### [facility] , Methylmalonic Acidon 024 Methylmalonic Acid 321 Normal 0-378 [facility] Comment on above: Result Comment: This test was developed and its performance characteristics determined by [employer]. It has not been cleared or approved by the Food and Drug Administration. Performed at: [address] [id number] [place]: Amara Coyne MD, Phone: [phone] Performed By: #### C BC, CMP, FE and TIBC, JAQUELINE, [id number] #### [facility] [address] [place] [address] [place] #### METH, EPO #### [facility] , Neutrophils [#/volume] in Bl ood by Automated countOrdered By: Lilly Christianson on 04-13-2023 Neutrophils (Bld) [#/Vol] 7.1 10*3/uL Normal 1.8-7.7 [facility] Comment on above: Performed By: #### C BC, CMP, FE and TIBC, JAQUELINE, [id number] #### [facility] [address] [place] [address] [place] #### METH, EPO #### [facility] , No Panel InformationOrdered By: Lilly Christianson on 04-13-2023 Estimated GFR (CKD-EPI) 47.091 mL/Min [facility] Creatinine Clearance (Chem 58.71 [facility] Nucleated erythrocytes [Pres ence] in Blood by Automated countOrdered By: Lilly Christianson on 04-13-2023 Nucleated RBC Auto Ql (Bld) 0.1 /100{WBC} 0-0.5 [facility] Platelet mean volume [Entiti c volume] in Blood by Automated countOrdered By: Lilly Christianson on 04-13-2023 Platelet mean volume (Bld) [Entitic vol] 9.4 fL Normal 6.3-10.7 [facility] Comment on above: Performed By: #### C BC, CMP, FE and TIBC, JAQUELINE, [id number] #### [address] #### METH, EPO #### [facility] , Platelets [#/volume] in Bloo d by Automated countOrdered By: Lilly Christianson on 04-13-2023 Platelets (Bld) [#/Vol] 187 10*3/uL Normal 150-450 [facility] Comment on above: Performed By: #### C BC, CMP, FE and TIBC, JAQUELINE, [id number] #### [place] [address] [place] #### METH, EPO #### [facility] , Potassium [Moles/volume] in Serum or PlasmaOrdered By: Lilly Christianson on 04-13-2023 Potassium [Moles/Vol] 4.8 mmol/L Normal 3.5-5.1 [facility] Comment on above: Performed By: #### C BC, CMP, FE and TIBC, JAQUELINE, [id number] #### [place] [address] [place] #### METH, EPO #### [facility] , Protein [Mass/volume] in Ser um or PlasmaOrdered By: Lilly Christianson on 04-13-2023 Protein [Mass/Vol] 6.5 g/dL Normal 6.4-8.9 [facility] Comment on above: Performed By: #### C BC, CMP, FE and TIBC, JAQUELINE, [id number] #### [place] [address] [place] #### METH, EPO #### [facility] , Serum globulin measurement b y calculation (mass/volume)Ordered By: Lilly Christianson on 04-13-2023 Globulin (S) [Mass/Vol] 2.6 g/dL [facility] Comment on above: Performed By: #### C BC, CMP, FE and TIBC, JAQUELINE, [id number] #### [place] [address] [place] #### METH, EPO #### [facility] , Serum or plasma albumin/glob ulin mass ratioOrdered By: Lilly Christianson on 04-13-2023 Albumin/Globulin [Mass ratio] 1.5 {ratio} [facility] Comment on above: Performed By: #### C BC, CMP, FE and TIBC, JAQUELINE, [id number] #### [place] [address] [place] #### METH, EPO #### [facility] , Serum or plasma anion gap de terminationOrdered By: Lilly Christianson on 04-13-2023 Anion gap [Moles/Vol] 12.0 mmol/L Normal 6.0-15.0 [facility] Comment on above: Performed By: #### C BC, CMP, FE and TIBC, JAQUELINE, [id number] #### [place] [address] [place] #### METH, EPO #### [facility] , Sodium [Moles/volume] in Ser um or PlasmaOrdered By: Lilly Christianson on 04-13-2023 Sodium [Moles/Vol] 138 mmol/L Normal 136-145 [facility] Comment on above: Performed By: #### C BC, CMP, FE and TIBC, JAQUELINE, [id number] #### [place] [address] [place] #### METH, EPO #### [facility] , Transferrin [Mass/volume] in Serum or PlasmaOrdered By: Lilly Christianson on 04-13-2023 Transferrin [Mass/Vol] 184 mg/dL Low 203-362 [facility] Comment on above: Performed By: #### C BC, CMP, FE and TIBC, JAQUELINE, [id number] #### [facility] [address] [place] [address] [place] #### METH, EPO #### [facility] , Urea nitrogen [Mass/volume] in Serum or PlasmaOrdered By: Lilly Christianson on 04-13-2023 Urea nitrogen [Mass/Vol] 19 mg/dL Normal 7-25 [facility] Comment on above: Performed By: #### C BC, CMP, FE and TIBC, JAQUELINE, [id number] #### [facility] [address] [place] [address] #### METH, EPO #### [facility] , Vit. B12/Folate Profileon Folate 4.7 ng/mL Low >5.9 [facility] Comment on above: Result Comment: Sherry te reference range: >5.9 ng/ml The WHO technical consultation on folate and vitamin b12 deficiencies has determined that folate concentrations less than 4 ng/ml are considered deficient. PERFORMED BY: [place] [address] PATHOLOGIST [employer] CUTTING MACHINE OPERATOR YU ACOSTA M.D. Performed By: #### C BC, CMP, FE and TIBC, JAQUELINE, [id number] #### [facility] [address] [place] [address] [place] #### METH, EPO #### [facility] , Vitamin B12 ser/plasOrdered By: Lilly Christianson on 04-13-2023 Cobalamin (Vitamin B12) [Mass/Vol] pg/mL High 180-914 [facility] Comment on above: Performed By: #### C BC, CMP, FE and TIBC, JAQUELINE, [id number] #### [address] #### METH, EPO #### [facility] , Complete Blood Count Auto Di ffon 01-17-2023 Basophils (Bld) [#/Vol] 0.1 10*3/uL Normal 0.0-0.2 [facility] Comment on above: Result Comment: PERF ORMED BY: [place] [address] PATHOLOGIST [employer]WE[employer] CUTTING MACHINE OPERATOR YU ACOSTA M.D. Performed By: #### C BC, CMP, FE and TIBC, JAQUELINE, [id number] #### [address] #### METH, EPO #### [facility] , Basophils/100 WBC (Bld) 0.7 % Normal . [facility] Comment on above: Performed By: #### C BC, CMP, FE and TIBC, JAQUELINE, [id number] #### [address] #### METH, EPO #### [facility] , Eosinophils (Bld) [#/Vol] 0.2 10*3/uL Normal 0.0-0.45 [facility] Comment on above: Performed By: #### C BC, CMP, FE and TIBC, JAQUELINE, [id number] #### [place] [address] [place] #### METH, EPO #### [facility] , Eosinophils/100 WBC (Bld) 2.3 % Normal . [facility] Comment on above: Performed By: #### C BC, CMP, FE and TIBC, JAQUELINE, [id number] #### [address] #### METH, EPO #### [facility] , Erythrocyte distribution width (RBC) [Ratio] 14.8 % Normal 11.9-15.3 [facility] Comment on above: Performed By: #### C BC, CMP, FE and TIBC, JAQUELINE, [id number] #### [place] [address] [place] #### METH, EPO #### [facility] , Hematocrit (Bld) [Volume fraction] 42.8 % Normal 34.0-46.4 [facility] Comment on above: Performed By: #### C BC, CMP, FE and TIBC, JAQUELINE, [id number] #### [address] #### METH, EPO #### [facility] , Hemoglobin (Bld) [Mass/Vol] 14.2 g/dL Normal 11.8-15.4 [facility] Comment on above: Performed By: #### C BC, CMP, FE and TIBC, JAQUELINE, [id number] #### [address] #### METH, EPO #### [facility] , Lymphocytes (Bld) [#/Vol] 2.8 10*3/uL Normal 1.00-4.8 [facility] Comment on above: Performed By: #### C BC, CMP, FE and TIBC, JAQUELINE, [id number] #### [place] [address] [place] #### METH, EPO #### [facility] , Lymphocytes/100 WBC (Bld) 28.0 % Normal . [facility] Comment on above: Performed By: #### C BC, CMP, FE and TIBC, JAQUELINE, [id number] #### [place] [address] [place] #### METH, EPO #### [facility] , MCH (RBC) [Entitic mass] 30.3 pg Normal 24.7-34.3 [facility] Comment on above: Performed By: #### C BC, CMP, FE and TIBC, JAQUELINE, [id number] #### [place] [address] [place] #### METH, EPO #### [facility] , MCV (RBC) [Entitic vol] 90.9 fL Normal 80-100 [facility] Comment on above: Performed By: #### C BC, CMP, FE and TIBC, JAQUELINE, [id number] #### [place] [address] [place] #### METH, EPO #### [facility] , Mean Corpuscular HGB Conc 33.3 g/dL Normal 32.0-35.0 [facility] Comment on above: Performed By: #### C BC, CMP, FE and TIBC, JAQUELINE, [id number] #### [place] [address] [place] #### METH, EPO #### [facility] , Monocytes (Bld) [#/Vol] 0.8 10*3/uL Normal 0.0-0.8 [facility] Comment on above: Performed By: #### C BC, CMP, FE and TIBC, JAQUELINE, [id number] #### [place] [address] [place] #### METH, EPO #### [facility] , Monocytes/100 WBC (Bld) 8.3 % Normal . [facility] Comment on above: Performed By: #### C BC, CMP, FE and TIBC, JAQUELINE, [id number] #### [place] [address] [place] #### METH, EPO #### [facility] , Neutrophils (Bld) [#/Vol] 6.1 10*3/uL Normal 1.8-7.7 [facility] Comment on above: Performed By: #### C BC, CMP, FE and TIBC, JAQUELINE, [id number] #### [place] [address] [place] #### METH, EPO #### [facility] , Neutrophils/100 WBC (Bld) 60.7 % Normal . [facility] Comment on above: Performed By: #### C BC, CMP, FE and TIBC, JAQUELINE, [id number] #### [place] [address] [place] #### METH, EPO #### [facility] , NRBC% 0.1 /100{WBC} Normal 0-0.5 [facility] Comment on above: Performed By: #### C BC, CMP, FE and TIBC, JAQUELINE, [id number] #### [address] #### METH, EPO #### [facility] , Platelet mean volume (Bld) [Entitic vol] 9.0 fL Normal 6.3-10.7 [facility] Comment on above: Performed By: #### C BC, CMP, FE and TIBC, JAQUELINE, [id number] #### [place] [address] [place] #### METH, EPO #### [facility] , Platelets (Bld) [#/Vol] 194 10*3/uL Normal 150-450 [facility] Comment on above: Performed By: #### C BC, CMP, FE and TIBC, JAQUELINE, [id number] #### [place] [address] [place] #### METH, EPO #### [facility] , RBC (Bld) [#/Vol] 4.70 10*6/uL Normal 3.60-5.00 [facility] Comment on above: Performed By: #### C BC, CMP, FE and TIBC, JAQUELINE, [id number] #### [place] [address] [place] #### METH, EPO #### [facility] , WBC (Bld) [#/Vol] 10.0 10*3/uL Normal 3.8-11.6 [facility] Comment on above: Performed By: #### C BC, CMP, FE and TIBC, JAQUELINE, [id number] #### [place] [address] [place] #### METH, EPO #### [facility] , Comprehensive Metabolic Pane mikki 01-17-2023 Albumin [Mass/Vol] 3.9 g/dL Normal 3.5-5.7 [facility] Comment on above: Performed By: #### C BC, CMP, FE and TIBC, JAQUELINE, [id number] #### [address] #### METH, EPO #### [facility] , Albumin/Globulin [Mass ratio] 1.4 {ratio} Normal [facility] Comment on above: Performed By: #### C BC, CMP, FE and TIBC, JAQUELINE, [id number] #### [place] [address] [place] #### METH, EPO #### [facility] , ALP [Catalytic activity/Vol] 147 U/L High 34-104 [facility] Comment on above: Performed By: #### C BC, CMP, FE and TIBC, JAQUELINE, [id number] #### [place] [address] [place] #### METH, EPO #### [facility] , ALT [Catalytic activity/Vol] 19 U/L Normal 7-52 [facility] Comment on above: Performed By: #### C BC, CMP, FE and TIBC, JAQUELINE, [id number] #### [place] [address] [place] #### METH, EPO #### [facility] , Anion gap [Moles/Vol] 11.1 mmol/L Normal 6.0-15.0 [facility] Comment on above: Performed By: #### C BC, CMP, FE and TIBC, JAQUELINE, [id number] #### [address] #### METH, EPO #### [facility] , AST [Catalytic activity/Vol] 13 U/L Normal 13-39 [facility] Comment on above: Performed By: #### C BC, CMP, FE and TIBC, JAQUELINE, [id number] #### [place] [address] [place] #### METH, EPO #### [facility] , Bilirubin [Mass/Vol] 0.4 mg/dL Normal 0.3-1.0 [facility] Comment on above: Performed By: #### C BC, CMP, FE and TIBC, JAQUELINE, [id number] #### [place] [address] [place] #### METH, EPO #### [facility] , Calcium [Mass/Vol] 8.8 mg/dL Normal 8.6-10.3 [facility] Comment on above: Performed By: #### C BC, CMP, FE and TIBC, JAQUELINE, [id number] #### [place] [address] [place] #### METH, EPO #### [facility] , Chloride [Moles/Vol] 102 mmol/L Normal 98-107 [facility] Comment on above: Performed By: #### C BC, CMP, FE and TIBC, JAQUELINE, [id number] #### [place] [address] [place] #### METH, EPO #### [facility] , CO2 [Moles/Vol] 30.1 mmol/L Normal 21.0-31.0 [facility] Comment on above: Performed By: #### C BC, CMP, FE and TIBC, JAQUELINE, [id number] #### [place] [address] [place] #### METH, EPO #### [facility] , Creatinine [Mass/Vol] 1.10 mg/dL Normal 0.60-1.20 [facility] Comment on above: Performed By: #### C BC, CMP, FE and TIBC, JAQUELINE, [id number] #### [place] [address] [place] #### METH, EPO #### [facility] , Creatinine Clr Calc Pharmacy 70.45 Normal [facility] Comment on above: Performed By: #### C BC, CMP, FE and TIBC, JAQUELINE, [id number] #### [place] [address] [place] #### METH, EPO #### [facility] , GFR/1.73 sq M.predicted MDRD (S/P/Bld) [Vol rate/Area] 58.608 mL/min/{1.73_m2} Normal [facility] Comment on above: Performed By: #### C BC, CMP, FE and TIBC, JAQUELINE, [id number] #### [place] [address] [place] #### METH, EPO #### [facility] , Globulin (S) [Mass/Vol] 2.8 g/dL Normal [facility] Comment on above: Performed By: #### C BC, CMP, FE and TIBC, JAQUELINE, [id number] #### [place] [address] [place] #### METH, EPO #### [facility] , Glucose [Mass/Vol] 132 mg/dL High 70-100 [facility] Comment on above: Result Comment: [place] Glucose Reference Range is dependent on time and content of last meal. Glucose of more than 200 mg/dL in a nonstressed, ambulatory subject supports the diagnosis of Diabetes Mellitus. ADA recommended reference range Performed By: #### C BC, CMP, FE and TIBC, JQAUELINE, [id number] #### [place] [address] [place] #### METH, EPO #### [facility] , Potassium [Moles/Vol] 4.2 mmol/L Normal 3.5-5.1 [facility] Comment on above: Performed By: #### C BC, CMP, FE and TIBC, JAQUELINE, [id number] #### [address] #### METH, EPO #### [facility] , Protein [Mass/Vol] 6.7 g/dL Normal 6.4-8.9 [facility] Comment on above: Performed By: #### C BC, CMP, FE and TIBC, JAQUELINE, [id number] #### [place] [address] [place] #### METH, EPO #### [facility] , Sodium [Moles/Vol] 139 mmol/L Normal 136-145 [facility] Comment on above: Performed By: #### C BC, CMP, FE and TIBC, JAQUELINE, [id number] #### [address] #### METH, EPO #### [facility] , Urea nitrogen [Mass/Vol] 15 mg/dL Normal 7-25 [facility] Comment on above: Performed By: #### C BC, CMP, FE and TIBC, JAQUELINE, [id number] #### [place] [address] [place] #### METH, EPO #### [facility] , Erythropoetin (EPO), Serumon 01-17-2023 Erythropoetin (EPO), Serum 23.0 m[iU]/mL High 2.6-18.5 [facility] Comment on above: Result Comment: [address] Uni[employer]el DxI 800 Immunoassay System Values obtained with different assay methods or kits cannot be used interchangeably. Results cannot be interpreted as absolute evidence of the presence or absence of malignant disease. Performed at: [address] [id number] Cott[place] Blower: Hieu Willams PhD, Phone: [phone] PERFORMED BY: [place] [address] PATHOLOGIST SWEATBAND CUTTING MACHINE OPERATOR YU ACOSTA M.D. Performed By: #### C BC, CMP, FE and TIBC, JAQUELINE, [id number] #### [address] #### METH, EPO #### [facility] , Ferritinon 01-17-2023 Ferritin [Mass/Vol] 68.6 ng/mL Normal 11.0-306.8 [facility] Comment on above: Performed By: #### C BC, CMP, FE and TIBC, JAQUELINE, [id number] #### [address] #### METH, EPO #### [facility] , Iron and TIBC Profileon 12-23 % Iron Saturation 45.9 % Normal 20-50 [facility] Comment on above: Performed By: #### C BC, CMP, FE and TIBC, JAQUELINE, [id number] #### [place] [address] [place] #### METH, EPO #### [facility] , Iron [Mass/Vol] 129 ug/dL Normal 50-212 [facility] Comment on above: Performed By: #### C BC, CMP, FE and TIBC, JAQUELINE, [id number] #### [place] [address] [place] #### METH, EPO #### [facility] , Total Iron Binding Capacity 281 ug/dL Normal 255-450 [facility] Comment on above: Performed By: #### C BC, CMP, FE and TIBC, JAQUELINE, [id number] #### [facility] [address] [place] [address] [place] #### METH, EPO #### [facility] , Transferrin [Mass/Vol] 201 mg/dL Low 203-362 [facility] Comment on above: Performed By: #### C BC, CMP, FE and TIBC, JAQUELINE, [id number] #### [facility] [address] [place] [address] [place] #### METH, EPO #### [facility] , Methylmalonic Acidon 023 Methylmalonic Acid 224 Normal 0-378 [facility] Comment on above: Result Comment: This test was developed and its performance characteristics determined by [employer]. It has not been cleared or approved by the Food and Drug Administration. Performed at: [address] [id number] [place] Blower: Amara Coyne MD, Phone: [phone] Performed By: #### C BC, CMP, FE and TIBC, JAQUELINE, [id number] #### [place] [address] [place] #### METH, EPO #### [facility] , Serum or plasma erythropoiet in (EPO) measurement (units/volume)Ordered By: Lilly Christianson on 01-17-2023 Erythropoietin (EPO) Qn 23.0 mIU/mL 2.6-18.5 [facility] Comment on above: [employer] Uni[employer] el DxI 800 Immunoassay SystemValues obtained with different assay methods or kits cannotbe used interchangeably. Results cannot be interpreted asabsolute evidence of the presence or absence of malignantdisease.Performed at: [address] [id number] Director: Hieu Willams PhD, Phone: [phone] Serum or plasma methylmalona te measurement (moles/volume)Ordered By: Lilly Christianson on 01-17-2023 Methylmalonate [Moles/Vol] 224 nmol/L 0-378 [facility] Comment on above: This test was develo ped and its performance characteristicsdetermined by [facility]. It has not been cleared orapproved by the Food and Drug Administration.Performed at: [address] [id number] Director: Amara Coyne MD, Phone: [phone] Vit. B12/Folate Profileon Cobalamin (Vitamin B12) [Mass/Vol] 490 pg/mL Normal 180-914 [facility] Comment on above: Performed By: #### C BC, CMP, FE and TIBC, JAQUELINE, [id number] #### [address] #### METH, EPO #### [facility] , Folate 6.8 ng/mL Normal >5.9 [facility] Comment on above: Result Comment: Sherry te reference range: >5.9 ng/ml The WHO technical consultation on folate and vitamin b12 deficiencies has determined that folate concentrations less than 4 ng/ml are considered deficient. PERFORMED BY: [place] [address] PATHOLOGIST SWEATBAND CUTTING MACHINE OPERATOR YU ACOSTA M.D. Performed By: #### C BC, CMP, FE and TIBC, JAQUELINE, [id number] #### [address] #### METH, EPO #### [facility] , Complete Blood Count Auto Di ffon 10-22-2022 Basophils (Bld) [#/Vol] 0.1 10*3/uL Normal 0.0-0.2 [facility] Comment on above: Result Comment: PERF ORMED BY: [place] [address] PATHOLOGIST SWEATBAND CUTTING MACHINE OPERATOR YU ACOSTA M.D. Performed By: #### C BC, CMP, FE and TIBC, JAQUELINE, [id number] #### [address] [place] [address] [place] #### METH, EPO #### [facility] , Basophils/100 WBC (Bld) 0.7 % Normal . [facility] Comment on above: Performed By: #### C BC, CMP, FE and TIBC, JAQUELINE, [id number] #### [address] #### METH, EPO #### [facility] , Eosinophils (Bld) [#/Vol] 0.4 10*3/uL Normal 0.0-0.45 [facility] Comment on above: Performed By: #### C BC, CMP, FE and TIBC, JAQUELINE, [id number] #### [address] #### METH, EPO #### [facility] , Eosinophils/100 WBC (Bld) 3.4 % Normal . [facility] Comment on above: Performed By: #### C BC, CMP, FE and TIBC, JAQUELINE, [id number] #### [place] [address] [place] #### METH, EPO #### [facility] , Erythrocyte distribution width (RBC) [Ratio] 15.8 % High 11.9-15.3 [facility] Comment on above: Performed By: #### C BC, CMP, FE and TIBC, JAQUELINE, [id number] #### [place] [address] [place] #### METH, EPO #### [facility] , Hematocrit (Bld) [Volume fraction] 39.3 % Normal 34.0-46.4 [facility] Comment on above: Performed By: #### C BC, CMP, FE and TIBC, JAQUELINE, [id number] #### [place] [address] [place] #### METH, EPO #### [facility] , Hemoglobin (Bld) [Mass/Vol] 12.8 g/dL Normal 11.8-15.4 [facility] Comment on above: Performed By: #### C BC, CMP, FE and TIBC, JAQUELINE, [id number] #### [place] [address] [place] #### METH, EPO #### [facility] , Lymphocytes (Bld) [#/Vol] 3.2 10*3/uL Normal 1.00-4.8 [facility] Comment on above: Performed By: #### C BC, CMP, FE and TIBC, JAQUELINE, [id number] #### [place] [address] [place] #### METH, EPO #### [facility] , Lymphocytes/100 WBC (Bld) 25.9 % Normal . [facility] Comment on above: Performed By: #### C BC, CMP, FE and TIBC, JAQUELINE, [id number] #### [place] [address] [place] #### METH, EPO #### [facility] , MCH (RBC) [Entitic mass] 29.5 pg Normal 24.7-34.3 [facility] Comment on above: Performed By: #### C BC, CMP, FE and TIBC, JAQUELINE, [id number] #### [place] [address] [place] #### METH, EPO #### [facility] , MCV (RBC) [Entitic vol] 90.6 fL Normal 80-100 [facility] Comment on above: Performed By: #### C BC, CMP, FE and TIBC, JAQUELINE, [id number] #### [place] [address] [place] #### METH, EPO #### [facility] , Mean Corpuscular HGB Conc 32.6 g/dL Normal 32.0-35.0 [facility] Comment on above: Performed By: #### C BC, CMP, FE and TIBC, JAQUELINE, [id number] #### [address] #### METH, EPO #### [facility] , Monocytes (Bld) [#/Vol] 0.9 10*3/uL High 0.0-0.8 [facility] Comment on above: Performed By: #### C BC, CMP, FE and TIBC, JAQUELINE, [id number] #### [address] #### METH, EPO #### [facility] , Monocytes/100 WBC (Bld) 7.1 % Normal . [facility] Comment on above: Performed By: #### C BC, CMP, FE and TIBC, JAQUELINE, [id number] #### [place] [address] [place] #### METH, EPO #### [facility] , Neutrophils (Bld) [#/Vol] 7.9 10*3/uL High 1.8-7.7 [facility] Comment on above: Performed By: #### C BC, CMP, FE and TIBC, JAQUELINE, [id number] #### [address] #### METH, EPO #### [facility] , Neutrophils/100 WBC (Bld) 62.9 % Normal . [facility] Comment on above: Performed By: #### C BC, CMP, FE and TIBC, JAQUELINE, [id number] #### [place] [address] [place] #### METH, EPO #### [facility] , NRBC% 0.1 /100{WBC} Normal 0-0.5 [facility] Comment on above: Performed By: #### C BC, CMP, FE and TIBC, JAQUELINE, [id number] #### [place] [address] [place] #### METH, EPO #### [facility] , Platelet mean volume (Bld) [Entitic vol] 10.4 fL Normal 6.3-10.7 [facility] Comment on above: Performed By: #### C BC, CMP, FE and TIBC, JAQUELINE, [id number] #### [place] [address] [place] #### METH, EPO #### [facility] , Platelets (Bld) [#/Vol] 199 10*3/uL Normal 150-450 [facility] Comment on above: Performed By: #### C BC, CMP, FE and TIBC, JAQUELINE, [id number] #### [address] #### METH, EPO #### [facility] , RBC (Bld) [#/Vol] 4.34 10*6/uL Normal 3.60-5.00 [facility] Comment on above: Performed By: #### C BC, CMP, FE and TIBC, JAQUELINE, [id number] #### [address] #### METH, EPO #### [facility] , WBC (Bld) [#/Vol] 12.5 10*3/uL High 3.8-11.6 [facility] Comment on above: Performed By: #### C BC, CMP, FE and TIBC, JAQUELINE, [id number] #### [place] [address] [place] #### METH, EPO #### [facility] , Comprehensive Metabolic Pane mikki 10-22-2022 Albumin [Mass/Vol] 3.9 g/dL Normal 3.5-5.7 [facility] Comment on above: Performed By: #### C BC, CMP, FE and TIBC, JAQUELINE, [id number] #### [place] [address] [place] #### METH, EPO #### [facility] , Albumin/Globulin [Mass ratio] 1.5 {ratio} Normal [facility] Comment on above: Performed By: #### C BC, CMP, FE and TIBC, JAQUELINE, [id number] #### [facility] [address] [place] [address] [place] #### METH, EPO #### [facility] , ALP [Catalytic activity/Vol] 161 U/L High 34-104 [facility] Comment on above: Performed By: #### C BC, CMP, FE and TIBC, JAQUELINE, [id number] #### [place] [address] [place] #### METH, EPO #### [facility] , ALT [Catalytic activity/Vol] 16 U/L Normal 7-52 [facility] Comment on above: Performed By: #### C BC, CMP, FE and TIBC, JAQUELINE, [id number] #### [place] [address] [place] #### METH, EPO #### [facility] , Anion gap [Moles/Vol] 13.9 mmol/L Normal 6.0-15.0 [facility] Comment on above: Performed By: #### C BC, CMP, FE and TIBC, JAQUELINE, [id number] #### [place] [address] [place] #### METH, EPO #### [facility] , AST [Catalytic activity/Vol] 13 U/L Normal 13-39 [facility] Comment on above: Performed By: #### C BC, CMP, FE and TIBC, JAQUELINE, [id number] #### [place] [address] [place] #### METH, EPO #### [facility] , Bilirubin [Mass/Vol] 0.3 mg/dL Normal 0.3-1.0 [facility] Comment on above: Performed By: #### C BC, CMP, FE and TIBC, JAQUELINE, [id number] #### [place] [address] [place] #### METH, EPO #### [facility] , Calcium [Mass/Vol] 8.9 mg/dL Normal 8.6-10.3 [facility] Comment on above: Performed By: #### C BC, CMP, FE and TIBC, JAQUELINE, [id number] #### [place] [address] [place] #### METH, EPO #### [facility] , Chloride [Moles/Vol] 100 mmol/L Normal 98-107 [facility] Comment on above: Performed By: #### C BC, CMP, FE and TIBC, JAQUELINE, [id number] #### [place] [address] [place] #### METH, EPO #### [facility] , CO2 [Moles/Vol] 28.4 mmol/L Normal 21.0-31.0 [facility] Comment on above: Performed By: #### C BC, CMP, FE and TIBC, JAQUELINE, [id number] #### [place] [address] [place] #### METH, EPO #### [facility] , Creatinine [Mass/Vol] 1.40 mg/dL High 0.60-1.20 [facility] Comment on above: Performed By: #### C BC, CMP, FE and TIBC, JAQUELINE, [id number] #### [place] [address] [place] #### METH, EPO #### [facility] , Creatinine Clr Calc Pharmacy 56.02 Normal [facility] Comment on above: Performed By: #### C BC, CMP, FE and TIBC, JAQUELINE, [id number] #### [place] [address] [place] #### METH, EPO #### [facility] , GFR/1.73 sq M.predicted MDRD (S/P/Bld) [Vol rate/Area] 44.155 mL/min/{1.73_m2} Normal [facility] Comment on above: Performed By: #### C BC, CMP, FE and TIBC, JAQUELINE, [id number] #### [place] [address] [place] #### METH, EPO #### [facility] , Globulin (S) [Mass/Vol] 2.6 g/dL Normal [facility] Comment on above: Performed By: #### C BC, CMP, FE and TIBC, JAQUELINE, [id number] #### [place] [address] [place] #### METH, EPO #### [facility] , Glucose [Mass/Vol] 281 mg/dL High 70-100 [facility] Comment on above: Result Comment: [facility] Glucose Reference Range is dependent on time and content of last meal. Glucose of more than 200 mg/dL in a nonstressed, ambulatory subject supports the diagnosis of Diabetes Mellitus. ADA recommended reference range Performed By: #### C BC, CMP, FE and TIBC, JAQUELINE, [id number] #### [place] [address] [place] #### METH, EPO #### [facility] , Potassium [Moles/Vol] 4.3 mmol/L Normal 3.5-5.1 [facility] Comment on above: Performed By: #### C BC, CMP, FE and TIBC, JAQUELINE, [id number] #### [place] [address] [place] #### METH, EPO #### [facility] , Protein [Mass/Vol] 6.5 g/dL Normal 6.4-8.9 [facility] Comment on above: Performed By: #### C BC, CMP, FE and TIBC, JAQUELINE, [id number] #### [place] [address] [place] #### METH, EPO #### [facility] , Sodium [Moles/Vol] 138 mmol/L Normal 136-145 [facility] Comment on above: Performed By: #### C BC, CMP, FE and TIBC, JAQUELINE, [id number] #### [place] [address] [place] #### METH, EPO #### [facility] , Urea nitrogen [Mass/Vol] 17 mg/dL Normal 7-25 [facility] Comment on above: Performed By: #### C BC, CMP, FE and TIBC, JAQUELINE, [id number] #### [place] [address] [place] #### METH, EPO #### [facility] , Erythropoetin (EPO), Serumon 10-22-2022 Erythropoetin (EPO), Serum 31.7 m[iU]/mL High 2.6-18.5 [facility] Comment on above: Result Comment: [employer] Uni[employer]el DxI 800 Immunoassay System Values obtained with different assay methods or kits cannot be used interchangeably. Results cannot be interpreted as absolute evidence of the presence or absence of malignant disease. Performed at: [facility] [id number] [place] Blower: Hieu Willams PhD, Phone: [phone] PERFORMED BY: [place] [address] PATHOLOGIST SWEATBAND CUTTING MACHINE OPERATOR YU ACOSTA M.D. Performed By: #### C BC, CMP, FE and TIBC, JAQUELINE, [id number] #### [place] [address] [place] #### METH, EPO #### [facility] , Ferritinon 10-22-2022 Ferritin [Mass/Vol] 82.9 ng/mL Normal 11.0-306.8 [facility] Comment on above: Performed By: #### C BC, CMP, FE and TIBC, JAQUELINE, [id number] #### [address] #### METH, EPO #### [facility] , Iron and TIBC Profileon % Iron Saturation 34.3 % Normal 20-50 [facility] Comment on above: Performed By: #### C BC, CMP, FE and TIBC, JAQUELINE, [id number] #### [place] [address] [place] #### METH, EPO #### [facility] , Iron [Mass/Vol] 94 ug/dL Normal 50-212 [facility] Comment on above: Performed By: #### C BC, CMP, FE and TIBC, JAQUELINE, [id number] #### [place] [address] [place] #### METH, EPO #### [facility] , Total Iron Binding Capacity 274 ug/dL Normal 255-450 [facility] Comment on above: Performed By: #### C BC, CMP, FE and TIBC, JAQUELINE, [id number] #### [place] [address] [place] #### METH, EPO #### [facility] , Transferrin [Mass/Vol] 196 mg/dL Low 203-362 [facility] Comment on above: Performed By: #### C BC, CMP, FE and TIBC, JAQUELINE, [id number] #### [place] [address] [place] #### METH, EPO #### [facility] , Methylmalonic Acidon 023 Methylmalonic Acid 270 Normal 0-378 [facility] Comment on above: Result Comment: This test was developed and its performance characteristics determined by [facility]. It has not been cleared or approved by the Food and Drug Administration. Performed at: [address] [id number] [place] Blower: Amara Coyne MD, Phone: [phone] Performed By: #### C BC, CMP, FE and TIBC, JAQUELINE, [id number] #### [place] [address] [place] #### METH, EPO #### [facility] , Vit. B12/Folate Profileon Cobalamin (Vitamin B12) [Mass/Vol] pg/mL High 180-914 [facility] Comment on above: Performed By: #### C BC, CMP, FE and TIBC, JAQUELINE, [id number] #### [address] #### METH, EPO #### [facility] , Folate 5.7 ng/mL Low >5.9 [facility] Comment on above: Result Comment: Sherry te reference range: >5.9 ng/ml The WHO technical consultation on folate and vitamin b12 deficiencies has determined that folate concentrations less than 4 ng/ml are considered deficient. PERFORMED BY: [place] [address] PATHOLOGIST SWEATBAND CUTTING MACHINE OPERATOR YU ACOSTA M.D. Performed By: #### C BC, CMP, FE and TIBC, JAQUELINE, [id number] #### [address] #### METH, EPO #### [facility] , CREATININE BLDon 10-07-2022 Creatinine [Mass/Vol] 1.06 mg/dL High 0.58-0.96 [facility] Comment on above: Order Comment: Speci men Type: BLOOD SPECIMEN Ordering Facility: [facility] Address: [address] [place] [address] [place] [address] Performed By: #### C RET1 #### [facility] CLIA [id number] [address] [place] [address] Creatinine and Glomerular filtration rate.predicted panel (S/P/Bld) 62 mL/min/1.73m??? Normal >=60 [facility] Comment on above: Order Comment: Speci men Type: BLOOD SPECIMEN Ordering Facility: [facility] Address: [address] [place] [address] [place] [address] Result Comment: Terri mated Glomerular Filtration Rate [...] GFR. Performed By: #### C RET1 #### [facility] CLIA [id number] [address] [place] [id number] KIDNEY WO/W IVCONon 10-07 CT KIDNEY WO/W IVCON * * *Final Report* * * DATE OF EXAM: Oct 07 2022 11:27AM [facility] 0546 - CT KIDNEY WO/W [...] No pulmonary parenchymal nodule or pleural effusion. Equipment Installer (topogram) images: No additional findings. IMPRESSION: 3.3 [...] any questions regarding this interpretation, please call [phone]. If you are unable to reach us at the number above, please feel free to contact [facility] at [phone]. [id number] Normal [facility] C. DIFF PCRon 06-18-2022 C. DIFFICILE PCR Negative Normal NEGATIVE [facility] Comment on above: Performed By: #### [facility] #### [facility] [address] [address] [address] Naz Crouch Albumin [Mass/volume] in Ser um or PlasmaOrdered By: Joanne Brown on 06-16-2022 Albumin [Mass/Vol] 3.3 g/dL 2.9-4.4 [facility] IgA [Mass/volume] in Serum o r PlasmaOrdered By: Joanne Brown on 06-16-2022 IgA [Mass/Vol] 224 mg/dL 87-352 [facility] IgG [Mass/volume] in Serum o r PlasmaOrdered By: Joanne Brown on 06-16-2022 IgG [Mass/Vol] 1023 mg/dL [phone] [facility] IgM [Mass/volume] in Serum o r PlasmaOrdered By: Joanne Brown on 06-16-2022 IgM [Mass/Vol] 50 mg/dL 26-217 [facility] Comment on above: Performed at: [facility] [address] [id number] Director: Hieu Willams PhD, Phone: [phone] Immunoglobulin light chains. kappa.free [Mass/volume] in SerumOrdered By: Joanne Brown on 06-16-2022 Immunoglobulin light chains.kappa.free (S) [Mass/Vol] 47.9 mg/L 3.3-19.4 [facility] Immunoglobulin light chains. kappa.free/Immunoglobulin light chains.lambda.free [MassOrdered By: Joanne Brown on 06-16-2022 Immunoglobulin light chains.kappa.free/Immu noglobulin light chains.lambda.free (S) [Mass ratio] 1.89 0.26-1.65 [facility] Immunoglobulin light chains. lambda.free [Mass/volume] in Serum or PlasmaOrdered By: Joanne Brown on 06-16-2022 Immunoglobulin light chains.lambda.free [Mass/Vol] 25.3 mg/L 5.7-26.3 [facility] No Panel InformationOrdered By: Joanne Brown on 06-16-2022 Protein Electrophoresis M-Anam Not observed g/dL Not Observed [facility] Protein Electrophoresis Note See comment . [facility] Comment on above: Protein electrophore sis scan will follow via computer,mail, or board winder delivery.Performed at: [employer] [id number] Director: Hieu Willams PhD, Phone: [phone] Serum Immunofixation See comment . [facility] Comment on above: No monoclonality det ected. Protein [Mass/volume] in Ser um or PlasmaOrdered By: Joanne Brown on 06-16-2022 Protein [Mass/Vol] 6.4 g/dL 6.0-8.5 [facility] Serum globulin measurement ( mass/volume)Ordered By: Joanne Brown on 06-16-2022 Globulin (S) [Mass/Vol] 3.1 g/dL 2.2-3.9 [facility] Serum or plasma albumin/glob ulin mass ratioOrdered By: Joanne Brown on 06-16-2022 Albumin/Globulin [Mass ratio] 1.1 {ratio} 0.7-1.7 [facility] Serum or plasma alpha 1 glob ulin measurement by electrophoresis (mass/volume)Ordered By: Joanne Brown on 06-16-2022 Alpha 1 globulin Elph [Mass/Vol] 0.3 g/dL 0.0-0.4 [facility] Serum or plasma alpha 2 glob ulin measurement by electrophoresis (mass/volume)Ordered By: Joanne Brown on 06-16-2022 Alpha 2 globulin Elph [Mass/Vol] 1.0 g/dL 0.4-1.0 [facility] Serum or plasma beta globuli n measurement by electrophoresis (mass/volume)Ordered By: Joanne Brown on 06-16-2022 Beta globulin Elph [Mass/Vol] 1.0 g/dL 0.7-1.3 [facility] Serum or plasma gamma globul in measurement by electrophoresis (mass/volume)Ordered By: Joanne Brown on 06-16-2022 Gamma globulin Elph [Mass/Vol] 0.9 g/dL 0.4-1.8 [facility] Glucose Glucometer (BldC) [M ass/Vol]Ordered By: Bebo Sims on 06-02-2022 Glucose [Mass/Vol] 118 mg/dL [facility] Comment on above: Random Glucose Refer ence Range is dependent on time and content of last meal. Glucose of more than 200 mg/dL in a nonstressed, ambulatory subject supports the diagnosis of Diabetes Mellitus. CBC AUTO DIFFon 04-22-2022 BASO # 0.1 103/ul Normal 0.0-0.1 [facility] Comment on above: Performed By: #### C BC #### [facility] [address] [address] [address] Naz Crouch Basophils/100 WBC (Bld) 0.8 % Normal 0.2-2.0 [facility] Comment on above: Performed By: #### C BC #### [facility] [address] [address] [address] Naz Crouch EO # 0.3 103/ul Normal 0.0-0.7 [facility] Comment on above: Performed By: #### C BC #### [facility] [address] [address] [address] Naz Coruch Eosinophils/100 WBC (Bld) 2.2 % Normal 0.9-7.0 [facility] Comment on above: Performed By: #### C BC #### [facility] [address] [address] [address] Naz Crouch Erythrocyte distribution width (RBC) [Ratio] 20.0 % Critically high 11.0-15.0 [facility] Comment on above: Performed By: #### C BC #### [facility] [address] [address] [address] Naz Crouch Hematocrit (Bld) [Volume fraction] 27.6 % Critically low 36.0-48.0 [facility] Comment on above: Performed By: #### C BC #### [facility] [address] [address] [address] Naz Crouch Hemoglobin (Bld) [Mass/Vol] 7.3 g/dL Critically low 12.0-16.0 [facility] Comment on above: Performed By: #### C BC #### [facility] [address] [address] [address] Naz Crouch IG # 0.09 10e3/ul Critically high 0.00-0.03 [facility] Comment on above: Performed By: #### C BC #### [facility] [address] [address] [address] Naz Crouch IG % 0.7 % Critically high 0.0-0.5 [facility] Comment on above: Performed By: #### C BC #### [facility] [address] [place] [address] Dr. Naz Crouch LYMPH # 2.3 103/ul Normal 1.2-3.8 [facility] Comment on above: Performed By: #### C BC #### [facility] [address] [place] [address] Dr. Naz Crouch Lymphocytes/100 WBC (Bld) 17.8 % Critically low 20.5-60.0 [facility] Comment on above: Performed By: #### C BC #### [facility] [address] [place] [address] Dr. Naz Crouch MANUAL DIFF REQ NO Normal [facility] Comment on above: Performed By: #### C BC #### [facility] [address] [place] [address] Dr. Naz Crouch MCH (RBC) [Entitic mass] 18.3 pg Critically low 26.7-34.0 [facility] Comment on above: Performed By: #### C BC #### [facility] [address] [place] [address] Dr. Naz Crouch MCHC (RBC) [Mass/Vol] 26.4 g/dL Critically low 29.9-35.2 [facility] Comment on above: Performed By: #### C BC #### [facility] [address] [place] [address] Dr. Naz Crouch MCV (RBC) [Entitic vol] 69.2 fL Critically low 81.0-99.0 [facility] Comment on above: Performed By: #### C BC #### [facility] [address] [place] [address] Dr. Naz Crouch MONO # 0.8 103/ul Normal 0.3-0.8 [facility] Comment on above: Performed By: #### C BC #### [facility] [address] [place] [address] Dr. Naz Crouch Monocytes/100 WBC (Bld) 6.5 % Normal 1.7-12.0 [facility] Comment on above: Performed By: #### C BC #### [facility] [address] [place] [address] Dr. Naz Crouch NEUT # 9.3 103/ul Critically high 1.4-6.5 [facility] Comment on above: Performed By: #### C BC #### [facility] [address] [place] [address] Dr. Naz Crouch Neutrophils/100 WBC (Bld) 72.0 % Normal 43.0-75.0 [facility] Comment on above: Performed By: #### C BC #### [facility] [address] [place] [address] Dr. Naz Crouch Platelet mean volume (Bld) [Entitic vol] 9.4 fL Critically low 9.5-13.5 [facility] Comment on above: Performed By: #### C BC #### [facility] [address] [place] [address] Dr. Naz Crouch PLT 318 103/ul Normal 150-450 [facility] Comment on above: Performed By: #### C BC #### [facility] [address] [place] [address] Dr. Naz Crouch RBC 3.99 106/ul Critically low 4.20-5.40 [facility] Comment on above: Performed By: #### C BC #### [facility] [address] [place] [address] Dr. Naz Crouch WBC 13.0 103/ul Critically high 4.0-11.0 [facility] Comment on above: Performed By: #### C BC #### [facility] [address] [place] [address] Dr. Naz Crouch GLYCOHEMOGLOBIN A1Con 2022 ADA RECOMMENDATION SEE BELOW Normal [facility] Comment on above: Result Comment: ADA RECOMMENDED LIMIT 4.0 - 6.0 ADA THERAPEUTIC TARGET < 7.0 ACTION SUGGESTED > 7.0 Performed By: #### A 1C #### [facility] [address] [place] [address] Dr. Naz Crouch Glucose [Mass/Vol] 192 mg/dL Normal [facility] Comment on above: Performed By: #### A 1C #### [facility] [address] [place] [address] Dr. Naz Crouch HbA1c (Bld) [Mass fraction] 8.3 % Critically high 4.5-6.2 [facility] Comment on above: Performed By: #### A 1C #### [facility] [address] [place] [address] Dr. Naz Crouch MICROALBUMIN, RAND URon - mALB 4.7 mg/L Normal <=30.0 [facility] Comment on above: Performed By: #### M ALBR #### [facility] [address] [place] [address] Dr. Naz Crouch PROF 14(COMP METB)on 023 Albumin [Mass/Vol] 3.1 g/dL Critically low 3.4-5.0 Th e [facility] Comment on above: Performed By: #### C MP, T4, TSH #### [facility] [address] [place] [address] Dr. Naz Crouch Albumin/Globulin [Mass ratio] 0.8 {ratio} Normal [facility] Comment on above: Performed By: #### C MP, T4, TSH #### [facility] [address] [place] [address] Dr. Naz Crouch ALP [Catalytic activity/Vol] 176 U/L Critically high 46-116 [facility] Comment on above: Performed By: #### C MP, T4, TSH #### [facility] [address] [place] [address] Dr. Naz Crouch ALT [Catalytic activity/Vol] 18 U/L Normal 14-59 [facility] Comment on above: Performed By: #### C MP, T4, TSH #### [facility] [address] [address] [address] Naz Crouch Anion gap [Moles/Vol] 12.9 mmol/L Normal Th e [facility] Comment on above: Performed By: #### C MP, T4, TSH #### [facility] [address] [address] [address] Naz Crouch AST [Catalytic activity/Vol] 12 U/L Critically low 15-37 [facility] Comment on above: Performed By: #### C MP, T4, TSH #### [facility] [address] [address] [address] Naz Crouch Bilirubin [Mass/Vol] 0.2 mg/dL Normal 0.2-1.0 [facility] Comment on above: Performed By: #### C MP, T4, TSH #### [facility] [address] [place] [address] Dr. Naz Crouch Calcium [Mass/Vol] 8.8 mg/dL Normal 8.5-10.1 [facility] Comment on above: Performed By: #### C MP, T4, TSH #### [facility] [address] [place] [address] Dr. Naz Crouch Chloride [Moles/Vol] 104 mmol/L Normal 98-107 [facility] Comment on above: Performed By: #### C MP, T4, TSH #### [facility] [address] [place] [address] Dr. Naz Crouch CO2 [Moles/Vol] 27.5 mmol/L Normal 21.0-32.0 [facility] Comment on above: Performed By: #### C MP, T4, TSH #### [facility] [address] [place] [address] Dr. Naz Crouch Creatinine [Mass/Vol] 0.89 mg/dL Normal 0.55-1.02 [facility] Comment on above: Performed By: #### C MP, T4, TSH #### [facility] [address] [place] [address] Dr. Naz Crouch EGFR-AF NAMIBIAN >60 Normal >=60 [facility] Comment on above: Performed By: #### C MP, T4, TSH #### [facility] [address] [place] [address] Dr. Naz Crouch EGFR-NON AF NAMIBIAN >60 Normal >=60 [facility] Comment on above: Performed By: #### C MP, T4, TSH #### [facility] [address] [place] [address] Dr. Naz Crouch Globulin (S) [Mass/Vol] 3.9 g/dL Normal [facility] Comment on above: Performed By: #### C MP, T4, TSH #### [facility] [address] [place] [address] Dr. Naz Crouch Glucose [Mass/Vol] 206 mg/dL Critically high 74-106 [facility] Comment on above: Performed By: #### C MP, T4, TSH #### [facility] [address] [place] [address] Dr. Naz Crouch Potassium [Moles/Vol] 4.4 mmol/L Normal 3.5-5.1 [facility] Comment on above: Performed By: #### C MP, T4, TSH #### [facility] [address] [place] [address] Dr. Naz Crouch Protein [Mass/Vol] 7.0 g/dL Normal 6.4-8.2 [facility] Comment on above: Performed By: #### C MP, T4, TSH #### [facility] [address] [place] [address] Dr. Naz Crouch Sodium [Moles/Vol] 140 mmol/L Normal 136-145 [facility] Comment on above: Performed By: #### C MP, T4, TSH #### [facility] [address] [place] [address] Dr. Naz Crouch Urea nitrogen [Mass/Vol] 15.0 mg/dL Normal 7.0-18.0 [facility] Comment on above: Performed By: #### C MP, T4, TSH #### [facility] [address] [place], [place] [address] Dr. Naz Crouch Urea nitrogen/Creatinine [Mass ratio] 16.9 mg/mg Normal [facility] Comment on above: Performed By: #### C MP, T4, TSH #### [facility] [address] [address] [address] Naz Crouch T4on 04-22-2022 T4 [Mass/Vol] 4.60 ug/dL Critically low 4.80-13.90 [facility] Comment on above: Performed By: #### C MP, T4, TSH #### [facility] [address] [address] [address] Naz Crouch TSHon 04-22-2022 TSH 2.208 uIU/mL Normal 0.358-3.74 0 [facility] Comment on above: Performed By: #### C MP, T4, TSH #### [facility] [address] [address] [address] KIDNEY WO/W IVCONon 04-05 [facility] XR CHEST 2V FRONTAL/LATon [facility] Ambulatory Visit Summaryon 0 03-05-2022 Ambulatory Visit Summary ELMER ELLIS :1965 Visit Date:03/05/2022 Ambulatory Visit Instructions Your Diagnosis Right renal mass Incomplete bladder emptying Tests Performed Urnls Dip Stick Auto w/o Microscopy POC 59710 Your Care Team Attending Physician - Jluis [...] VENKAT SAWYER, RAPHAEL Jimenez When: Where: [address] [place] [address]- Someone Will Contact You Regarding These Appointments [facility]erral, [place], [facility]. Renal mass, [...] Urnls Dip Stick Auto w/o Microscopy POC 77816 (03/05/2022) Bilirubin Urine Dipstick - 1+ Small Blood Urine Dipstick - Negative Glucose Urine Dipstick - 2+ 500 mg/dl Ketones Urine Dipstick - Trace - 5 mg/dl Leukocytes Urine Dipstick - Negative Nitrite Urine Dipstick - Negative Protein Urine Dipstick - 2+ (100 mg/dl) Specific [place] Urine Dipstick - >=1.030 Urine Appearance Urine [...] on the (more content not included)... Normal [facility] Patient Educationon 03-05-19 23 Patient [...] gives to you. In general: ? Take rwuj-wtq-kuclfpm and prescription medicines only as told by [...] 09/04/2014 Document Revised: 03/16/2018 Document Reviewed: 03/16/2018 SMRxT Patient Education ? 2019 [place]. [facility] Urology Office/Clinic Noteon 03-05-2022 Urology [...] R partial nephrectomy. External referral placed to [facility]. Pt. understands her use of tobacco increases [...] Contact Information VENKAT SAWYER, Jluis Jacinto, URL [address] [place] [address]- Additional Instructions: Referral for renal mass Patient [...] 11/21/2020 Recorde (more content not included)... Normal [facility] Comment on above: Result Comment: Elec tronically Signed By: Jluis ROBLEDO MD\.br\Date and Time Signed: 03/05/22 11:17 EST\.br\Electronically Co-Signed By: Sophy Simmons\.br\Date and Time Co-Signed: 03/05/22 11:10 EST\.br\Electronically Co-Signed By: Sophy Simmons\.br\Date and Time Co-Signed: 03/05/22 11:11 EST Lab Reportson 02-05-2022 Lab Reports [id number]:127 Normal [facility] RAD - CT Reporton 02-05-2022 RAD - CT Report [id number]#1.00CD:127 Normal [facility] RAD - CT Report [id number]#1.00CD:127 Normal [facility] CT ABD/PELV W CONon 02-03-20 [...] by: MICHOACANO MARTIN Date: 2022-02-02 08:28 Normal [facility] Reminderson 02-02-2022 Reminders - From: Tahmina Hanson To: EU - Recalls Venkat; Sent: 07/29/2021 07:40:04 EDT Show up: 12/22/2021 07:40:00 EDT Subject: Ct scan Reminder/Recall Pt needs Ct scan ABD/Pelvis with contrast prior to Dec appt will send order to [facility]. [facility] never received her order will re fax to [facility] nothing at [facility] yet and unable to get ahold of CS pt will call to schedule she doesnt have insurance. CT done 02/01/2022 at [facility] will drop results into pt's chart has f/u 03/01/2022 Normal [facility] CREATININEon 02-01-2022 Creatinine [Mass/Vol] 1.00 mg/dL Normal 0.55-1.02 [facility] Comment on above: Performed By: #### C SERGEY #### [facility] [address] [place] [address] Dr. Naz Crouch EGFR-AF NAMIBIAN >60 Normal >=60 [facility] Comment on above: Performed By: #### C SERGEY #### [facility] [address] [address] [address] Naz Crouch EGFR-NON AF NAMIBIAN 57 mL/min/1.73m2 Critically low >=60 [facility] Comment on above: Performed By: #### C SERGEY #### [facility] [address] [place] [address] Dr. Naz Crouch Physician Orderon 01-11-2022 Physician Order [id number]:127 Normal [facility] CNOVon 11-09-2021 CNOV Office Visit (AGPOB1 ) ELMER ELLIS ([id number]) 1965 F Date Time Provider Department 9/19/22 [...] mg by mouth twice daily. MV with Fhf-Glwhxzps-Owntgb (CENTRUM SILVER) 0.4 mg-300 mcg- 250 mcg tab Take by mouth. insulin 75/25 lispro protamine/lispro units/mL (HUMALOG MIX 75-25,U-100,INSULN) 100 units/mL susp as directed. HYDROcodone-acetaminophen (NORCO) 5-325 mg per tablet hydrocodone 5 mg-acetaminophen 325 mg tablet TAKE 1 TO 2 TABLETS BY MOUTH EVERY DAY AT BEDTIME NEEDED qliaovme-rdq-kaay-FA-lutein (CENTRUM SILVER WOMEN) 8 mg iron-400 mcg-300 [...] Normal [facility] CNPNon 10-13-2021 CNPN Telephone (AGPOB1) ELMER ELLIS ([id number]) 1965 F Date Time Provider Department 10/13/21 [...] bear any weight. Patient has taken 1 [place] about an hour ago and said it [...] by mouth twice daily. - MV with Rje-Cbjztvnr-Rgypyj (CENTRUM SILVER) 0.4 mg-300 mcg- 250 mcg tab Take by mouth. - insulin 75/25 lispro protamine/lispro units/mL (HUMALOG MIX 75-25,U-100,INSULN) 100 units/mL susp as directed. - HYDROcodone-acetaminophen (NORCO) 5-325 mg per tablet hydrocodone 5 mg-acetaminophen 325 mg tablet TAKE 1 TO 2 TABLETS BY MOUTH EVERY DAY AT BEDTIME NEEDED - ywcmvcxr-hor-jffc-FA-lutein (CENTRUM SILVER WOMEN) 8 mg iron-400 mcg-300 [...] Encounter Status:Closed by FILOMENA MADRIGAL on 10/13/21 [facility] CNOVon 10-12-2021 CNOV Office Visit (AGPOB1 ) ELMER ELLIS ([id number]) 1965 F Date Time Provider Department 10/12/21 [...] mg by mouth twice daily. MV with Tsv-Tvaptqjk-Eccedf (CENTRUM SILVER) 0.4 mg-300 mcg- 250 mcg tab Take by mouth. insulin 75/25 lispro protamine/lispro units/mL (HUMALOG MIX 75-25,U-100,INSULN) 100 units/mL susp as directed. HYDROcodone-acetaminophen (NORCO) 5-325 mg per tablet hydrocodone 5 mg-acetaminophen 325 mg tablet TAKE 1 TO 2 TABLETS BY MOUTH EVERY DAY AT BEDTIME NEEDED afnguvik-ftq-kezh-FA-lutein (CENTRUM SILVER WOMEN) 8 mg iron-400 mcg-300 [...] sustaine (more content not included)... Normal [facility] CNOVon 09-21-2021 CNOV Office Visit (AGPOB1 ) ELMER ELLIS ([id number]) 1965 F Date Time Provider Department 09/21/21 [...] with nonweightbearing status. She will occasionally take Ellington for pain relief which is effective. She is also supplemented with aflr-icg-gpbunlq pain medications. Her medical history significant for Beatties, coronary artery disease, diabetes and associated lower extremity neuropathy, DVT requiring Plavix and Xarelto for anticoagulation. 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 She also has kidney cancer that is [...] by mouth twice daily. - MV with Spy-Edkpwlzj-Mucmiv (CENTRUM SILVER) 0.4 mg-300 mcg- 250 mcg tab Take by mouth. - insulin 75/25 lispro protamine/lispro units/mL (HUMALOG MIX 75-25,U-100,INSULN) 100 units/mL susp as directed. - HYDROcodone-acetaminophen (NORCO) 5-325 mg per tablet hydrocodone 5 mg-acetaminophen 325 mg tablet TAKE 1 TO 2 TABLETS BY MOUTH EVERY DAY AT BEDTIME NEEDED - nssckkyw-vmu-fvqo-FA-lutein (CENTRUM SILVER WOMEN) 8 mg iron-400 mcg-300 [...] med (more content not included)... Normal [facility] Osvaldo 09-16-2021 CORBY Telephone (AGPOB1) YECKLEY,ELMER M ([id number]) 1965 F Date Time Provider Department 09/16/21 [address] [address] During your visit today, we recorded the following information about you: Jared Alcantar [employer] [facility] 09/16/2021 9:05 AM Signed ----- Message from [...] facility was the patient seen at: [facility] / 09.12.2021 Was an appointment scheduled (Y/N): n Person calling if other than patient: n Return call to if other than patient: n Best contact number: [phone] Thank you, Peggy Saxena September 15, 2021 4:27 PM Filomena Madrigal 09/16/2021 10:18 AM Signed Called and spoke to patient regarding L ankle fracture OS 09/12/21. Patient was seen at [facility] ED after falling she fell in [...] Date: 09/16/2021 (None) Encounter Status:Closed by [facility] [employer]UC[employer] SPECIALIST JARED GARCIA on 09/16/21 [facility] HNO ID: [id number] Author: RT Herman(R) Service: Radiology Author Type: [...] RT Herman(R) September 12, 2021 2:38 PM [facility] HNO ID: [id number] Author: RT Alexandra(R) Service: Radiology Author Type: [...] September 12, 2021 12:21 PM Normal [facility] CONSULTon 09-12-2021 CONSULT HNO ID: [id number] Author: Stoney Bauer MD Service: Orthopaedic Surgery Author Type: Resident Type: Consults Filed: 09/12/2021 11:43 PM Note Text: Attestation signed by Lilly Tony MD at 09/13/2021 6:54 PM Lilly Tony M.D. Attending Staff, Department of Orthopedic Surgery [facility] Orthopaedic Surgery Consultation Note Reason for Consultation: [...] in the last 72 hours. Invalid input(s): [facility] Imaging XR of left tib/fib, ankle, foot: [...] September 12, 2021 11:43 PM Normal [facility] ED NOTEon 09-12-2021 ED NOTE HNO ID: [id number] Author: Joi Mariscal RN Service: Emergency Medicine Author Type: Registered Nurse Type: ED Notes Filed: 09/12/2021 11:13 AM Note Text: X-ray notified pt ready for imaging. Normal [facility] ED PROV NOTEon 09-12-2021 ED PROV NOTE HNO ID: [id number] Author: Alexander Velázquez APRN.CNP Service: Emergency Medicine [...] pain medication and follow up with her consumer marketing specialist that she already has seen previous. Patient in no acute distress vitals are stable. RETURN PRECAUTIONS Patient discharged from the Emergency Department. I do not feel that the patient's evaluation reveals any acute reason for admission at this time. I instructed them to either follow up with their primary care physicia (more content not included)... Normal [facility] XR ANKLE 1V LTon [...] alignment is otherwise stable. IMPRESSION: See above. Oven Roaster: PSCB Transcribe Date/Time: Sep 12 2021 2:45P Dictated by : KEN MCKEON MD This examination was interpreted and the report reviewed and electronically signed by: KEN MCKEON MD on Sep 12 2021 2:46PM EST [id number] Normal [facility] XR ANKLE 3V AP/LAT/OBL [...] Left foot first proximal phalangeal head fracture. Oven Roaster: PSCB Transcribe Date/Time: Sep 12 2021 12:54P Dictated by : MOE SINGH MD This examination was interpreted and the report reviewed and electronically signed by: MOE SINGH MD on Sep 12 2021 1:00PM EST [id number] Normal [facility] XR FOOT 3V AP/LAT/OBL [...] Left foot first proximal phalangeal head fracture. Oven Roaster: PSCB Transcribe Date/Time: Sep 12 2021 12:54P Dictated by : MOE SINGH MD This examination was interpreted and the report reviewed and electronically signed by: MOE SINGH MD on Sep 12 2021 1:00PM EST [id number] Normal [facility] XR KNEE 2V AP/LAT [...] Left foot first proximal phalangeal head fracture. Oven Roaster: LILLY Transcribe Date/Time: Sep 12 2021 12:54P Dictated by : MOE SINGH MD This examination was interpreted and the report reviewed and electronically signed by: MOE SINGH MD on Sep 12 2021 1:00PM EST [id number] Normal [facility] XR TIBIA FIBULA 2V [...] change regarding proximal fibular fracture. No dislocation. Oven Roaster: [facility] Transcribe Date/Time: Sep 12 2021 3:23P Dictated by : NIMCO GREEN MD This examination was interpreted and the report reviewed and electronically signed by: NIMCO GREEN MD on Sep 12 2021 3:27PM EST [id number] Normal [facility] Formson 07-29-2021 Forms [id number]:127 Normal [facility] Physician Referralon 022 Physician Referral [id number]:127 Normal [facility] RAD - CT Reporton 07-29-2021 RAD - CT Report [id number]:127 Normal [facility] Ambulatory Visit Summaryon 0 07-27-2021 [...] [facility] [address] , [place] [address] [phone] Medications What How Much When Instructions Unchanged [...] about calorie (more content not included)... Normal [facility] Patient Educationon 07-28-19 22 Patient [...] You could (more content not included)... Normal [facility] Urology Office/Clinic Noteon 07-27-2021 Urology Office/Clinic Note Chief Complaint new pt referred for renal mass HPI Staff Elmer is a 55yr old new pt referred for Renal mass. Pt had CT of ABD/pel done at [facility] on 06/15/21. pt says she feels [...] Jluis Jacinto, URL In 6 months 01/26/2022 [facility] [address] Dr, [place] [address]- [phone] Additional Instructions: [address] [...] SubCutaneous, BIDAC (more content not included)... Normal [facility] Comment on above: Result Comment: Elec tronically Signed By: VENKAT SAWYER, Jluis Jacinto\.br\Date and Time Signed: 07/27/21 10:26 EDT\.br\Electronically Co-Signed By: Tahmina Hanson\.br\Date and Time Co-Signed: 07/27/21 10:21 EDT GLUCOSE METERon 12-16-2020 Glucose [Mass/Vol] 216 mg/dL High 70-99 [facility] Comment on above: Result Comment: Fast ing GLUCOSE reference range has been updated per (ADA) [place] [employer]'s recommendation. 05/16/2018 Physician notified Performed By: #### L 500.83143 #### Test performed at: [address] [address] Glucose [Mass/Vol] 273 mg/dL High 70-99 [facility] Comment on above: Result Comment: Fast ing GLUCOSE reference range has been updated per (ADA) [place] [employer]'s recommendation. 05/16/2018 Physician notified Performed By: #### L 500.50539 #### Test performed at: [place] [address] OPERATIVE REPORTon OPERATIVE REPORT NAME: BRIAN ELLIS MR#: [id number] SURGEON: Malik Encarnacion DO DATE OF SURGERY: [...] up in 2 weeks. MALIK ENCARNACION DO GF/MODL/[id number] E/S: Malik Encarnacion DO 12/24/20 1255 Electronically Signed [facility] PT NAME: ELMER ELLIS MR#: [id number] [address] [place] [address] ACCT: [id number] : 65 OPERATIVE REPORT Normal [facility] MRI LUMBAR SP W & WO CONTRAS Ton 11-12-2020 MRI LUMBAR SP W & WO CONTRAST STUDY: MRI LUMBAR SP W WO CONTRAST; 11/12/2020 11:18 am INDICATION: LUMBAR POST-LAMINECTOMY SYNDROME. COMPARISON: Lumbar radiographs dated 09/02/2020 and MRI lumbar spine dated 10/31/2019. ACCESSION NUMBER(S): [id number] ORDERING CLINICIAN: Farhan Celeste TECHNIQUE: Multiplanar multisequence [...] granulation tissue components is again evident. Normal [facility] MRI LOW EXT ANY JNT WO CON L Ton 10-29-2020 MRI LOW EXT ANY JNT WO CON LT STUDY: MRI LOW EXT ANY JNT WO CON LT; ; 10/29/2020 11:42 am INDICATION: LEFT HIP PAIN. COMPARISON: None. ACCESSION NUMBER(S): [id number] ORDERING CLINICIAN: Farhan Celeste TECHNIQUE: MR imaging [...] hamstring tendinosis. No acute abnormality seen Normal [facility] LUMB SP COMP W FLEX/EXT 6 VW Son 09-02-2020 LUMB SP COMP W FLEX/EXT 6 VWS STUDY: LUMB SP COMP W FLEX/EXT 6 VWS ; 09/02/2020 11:01 am INDICATION: PAIN. COMPARISON: 10/17/2019 ACCESSION NUMBER(S): [id number] ORDERING CLINICIAN: Farhan Celeste FINDINGS: No acute [...] of the lumbar spine without instability. Normal [facility] MRA HEAD WO CONTRASTon 07-26 MRA HEAD WO CONTRAST [facility] Department of Radiology [address] [place] [id number] Patient Name: ELMER ELLIS : 1965 Sex: F Age: Race: White Pt. Location: Patient Status: D Ordered Date: 06/17/2020 10:35:00 AM Completed Date: 07/26/2020 10:58 AM Requesting Provider: MALIK NI V Attending Provider: MALIK NI V Report Copy To: Signs & Symptoms: H93.A3 Pulsatile tinnitus, bilateral I10 History: Chrissy X1 Stent, R Leg, [facility] April 2020 [facility] auth# [id number] 06/25/20-08/09/20 *ER Comments: evaluate Exam: MRA HEAD [...] canals given the limitations of a large wijiy-tt-haet imaging. IMPRESSION: * No aneurysm, thrombus or hemodynamically significant stenosis in the cerebral arteries. Electronically signed: Sharona Carrillo M.D.. Transcribed by: [email or web address], User Resident: Electronically Signed by: SHARONA CARRILLO @ 07/29/2020 08:07 AM Normal [facility] Comment on above: Order Comment: evalu ate MRI BRAIN WO CONTRASTon - MRI BRAIN WO CONTRAST [facility] Department of Radiology [address] [place] [phone] Patient Name: ELMER ELLIS : 1965 Sex: F Age: Race: White Pt. Location: 30 Patient Status: D Ordered Date: 06/17/2020 10:35:00 AM Completed Date: 07/26/2020 10:58 AM Requesting Provider: MALIK NI V Attending Provider: MALIK NI V Report Copy To: Signs & Symptoms: H93.A3 Pulsatile tinnitus, bilateral I10 History: [place] X1 Stent, R Leg, [facility] April 2020 [facility] AUTH # [id number] 06/24/2020-08/08/2020 [id number] / Comments: evaluate Exam: MRI BRAIN WO [...] well as the dural venous sinuses. Large qbmbv-sn-qavp evaluation of the internal auditory canals is negative for mass. IMPRESSION: * No acute intracranial findings. * Scattered, mild burden of nonspecific T2 weighted/FLAIR hyperintensities. Differential diagnosis includes sequelae of chronic small vessel ischemic disease, Lyme disease, vasculitis, chronic migraines, among others. Electronically signed: Sharona Carrillo M.D.. Transcribed by: [email or web address], User Resident: Electronically Signed by: SHARONA CARRILLO @ 07/29/2020 07:57 AM Normal [facility] Comment on above: Order Comment: evalu ate Vital Signs Date Time Vital Sign Value Performing Clinician Facility 03-24-2023 16:45-0500 Body height 162.6 cm Jenny Salima [place] Work Phone: [facility] 03-24-2023 16:45-0500 Body mass index (BMI) [Ratio] 45.93 kg/m2 Jenny Salima [place] Work Phone: [facility] 03-24-2023 16:45-0500 Body temperature 97.11 [degF] Jenny Salima [place] Work Phone: [facility] 03-24-2023 16:45-0500 Body weight 121.38 kg Jenny Gaylez [place] Work Phone: [facility] 03-24-2023 16:45-0500 Diastolic blood pressure 70 mm[Hg] Jenny Gaylez [place] Work Phone: [facility] 03-24-2023 16:45-0500 Heart rate 76 /min Jenny Gaylez [place] Work Phone: [facility] 03-24-2023 16:45-0500 Respiratory rate 20 /min Jenny Gaylez [place] Work Phone: [facility] 03-24-2023 16:45-0500 SaO2% (BldA) [Mass fraction] 97 % Jenny Salima [place] Work Phone: [facility] 03-24-2023 16:45-0500 Systolic blood pressure 112 mm[Hg] Jenny Salima [place] Work Phone: [facility] 10-15-2022 12:17-0400 Body weight 117.03 kg Lex Pickens MD Work Phone: [facility] 07-30-2022 09:06-0400 Body temperature 97.8 [degF] DO Dawit House Work Phone: [facility] 07-30-2022 09:06-0400 Body weight 115.66 kg DO Dawit House Work Phone: [facility] 07-30-2022 09:06-0400 Diastolic blood pressure 72 mm[Hg] DO Dawit House Work Phone: [facility] 07-30-2022 09:06-0400 Heart rate 82 /min DO Dawit House Work Phone: [facility] 07-30-2022 09:06-0400 Respiratory rate 16 /min DO Dawit House Work Phone: [facility] 07-30-2022 09:06-0400 SaO2% (BldA) [Mass fraction] 97 % DO Dawit House Work Phone: [facility] 07-30-2022 09:06-0400 Systolic blood pressure 128 mm[Hg] DO Dawit House Work Phone: [facility] 06-16-2022 09:38-0400 Body height 162.56 cm DO Dawit House Work Phone: [facility] 06-02-2022 15:31-0400 Diastolic blood pressure 66 mm[Hg] DO Dawit House Work Phone: [facility] 06-02-2022 15:31-0400 Heart rate 81 /min DO Dawit House Work Phone: [facility] 06-02-2022 15:31-0400 Respiratory rate 18 /min DO Dawit House Work Phone: [facility] 06-02-2022 15:31-0400 SaO2% (BldA) [Mass fraction] 96 % DO Dawit House Work Phone: [facility] 06-02-2022 15:31-0400 Systolic blood pressure 114 mm[Hg] DO Dawit House Work Phone: [facility] 06-02-2022 15:01-0400 Inhaled oxygen flow rate 8 L/min DO Dawit House Work Phone: [facility] 06-02-2022 12:090400 Body height 162.56 cm DO Dawit Ba Work Phone: [facility] 06-02-2022 12:09-0400 Body temperature 98.7 [degF] DO Dawit Ba Work Phone: [facility] 06-02-2022 12:09040 Body weight 117.93 kg DO Dawit Ba Work Phone: [facility] 03-16-2022 13:36-0500 Body height 162.6 cm Lex Pickens MD Work Phone: [facility] 03-16-2022 13:36-0500 Body weight 120.2 kg Lex Pickens MD Work Phone: [facility] 03-16-2022 13:36-0500 Diastolic blood pressure 80 mm[Hg] Lex Pickens MD Work Phone: [facility] 03-16-2022 13:36-0500 Heart rate 87 /min Lex Pickens MD Work Phone: [facility] 03-16-2022 13:36-0500 Systolic blood pressure 128 mm[Hg] Lex Pickens MD Work Phone: [facility] 10-12-2021 12:53-0400 Body height 162.6 cm Lilly Tony MD Work Phone: [facility] 10-12-2021 12:53-0400 Body weight 117.94 kg Lilly Tony MD Work Phone: [facility] 10-12-2021 12:53-0400 Respiratory rate 20 /min Lilly Tony MD Work Phone: [facility] 07-27-2021 09:31-0400 Blood Pressure Location Jluis VENKAT [facility] 07-27-2021 09:31-0400 Diastolic blood pressure 73 mm[Hg] Jluis ROBLEDO [facility] 07-27-2021 09:31-0400 Heart rate 89 /min Jluis ROBLEDO [facility] 07-27-2021 09:31-0400 Systolic blood pressure 120 mm[Hg] Jluis ROBLEDO [facility] Encounters Encounter Date Encounter Type Care Provider Facility Start: 08-18-2023 End: 08-18-2023 ambulatory [facility] Start: 08-08-2023 ambulatory Joanne Brown Facility:[facility] Start: 07-12-2023 End: 07-12-2023 ambulatory LISETTE CUMMINS Not Available Start: 06-23-2023 End: 06-23-2023 ambulatory JENNY BORREGO Not Available Start: 06-15-2023 End: 06-15-2023 [facility] Lex Pickens MD Work Phone: Urology Comment on above: Other specified diso rders of kidney and ureter (Primary Dx); Renal mass; Morbid obesity (HCC); Type 2 diabetes mellitus with diabetic neuropathy, with long-term current use of insulin (HCC) Start: 05-17-2023 End: 05-17-2023 ambulatory LEX PICKENS Facility:[facility] Start: 05-02-2023 End: 05-03-2023 ambulatory WALESKA VASQUEZ Not Available Start: 04-28-2023 Telephone encounter Angie marin APRN.CNP Work Phone: Hematology/Oncology Comment on above: Orders Start: 04-13-2023 End: 04-13-2023 ambulatory DO Dawit Ba Work Phone: [facility] Work Phone: Start: 04-13-2023 End: 04-13-2023 Patient encounter procedure DO Dawit Ba Work Phone: [facility] [place] Work Phone: Start: 04-13-2023 Registered Recurring DO Maverick Ba Work Phone: [facility] Work Phone: Start: 04-05-2023 Refill Jenny Aichholz [place] Work Phone: [facility] Comment on above: Acute non-recurrent sinusitis of other sinus (Primary Dx) Start: 03-24-2023 End: 03-24-2023 Assay of hemosiderin, quant Jenny Aichholz [place] Work Phone: [facility] Start: 03-24-2023 End: 03-24-2023 Patient encounter procedure Jenny Aichholz [place] Work Phone: [facility] Comment on above: Encounter for annual wellness visit (AWV) in Medicare patient (Primary Dx); Type 2 diabetes mellitus with diabetic neuropathy, with long-term current use of insulin (CMS/HCC); 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 (CMS/HCC); Tobacco user; Malignant neoplasm of kidney, unspecified laterality (CMS/HCC); Type 2 diabetes mellitus with insulin therapy (CMS/HCC); Routine general medical examination at health care facility Start: 03-24-2023 End: 03-24-2023 Refill Jenny Aichholz [place] Work Phone: [facility] Comment on above: 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 (CMS/HCC) (Primary Dx) Start: 02-02-2023 End: 02-03-2023 ambulatory WALESKA Mccray APLING Not Available Start: 10-15-2022 End: 10-15-2022 [facility] Lex Pickens MD Work Phone: Urology Comment on above: Renal mass, right (P rimary Dx); Family history of renal cancer; Morbid obesity (HCC); Current every day smoker; Other specified disorders of kidney and ureter Start: 10-15-2022 End: 10-15-2022 ambulatory LEX PICKENS Facility:[facility] Start: 10-07-2022 End: 10-07-2022 ambulatory LEX PICKENS Facility:[facility] Start: 06-18-2022 End: 06-19-[address] DAWIT BA Facility: Start: 06-02-2022 End: 06-02-2022 Admission to same day surgery center DO Dawit Ba Work Phone: [facility] [place] Start: 06-02-2022 End: 06-02-2022 ambulatory DO Dawit Ba Work Phone: [facility] Work Phone: Start: 04-22-2022 End: 04-23-[address] DAWIT BA Facility: Start: 04-09-2022 End: 04-10-2022 [facility] Lex Pickens MD Work Phone: Urology Comment [...] V Leiden (HCC); Coronary artery disease involving hamilton heart without angina pectoris, unspecified vessel or lesion type; Smoker; Morbid obesity (HCC); Other specified disorders of kidney and ureter; Renal mass Start: 03-05-2022 End: 03-06-2022 ambulatory MD Jluis ROBLEDO Facility:[facility] Start: 03-05-2022 End: 03-05-2022 Patient encounter procedure Jluis ROBLEDO [facility] Start: 02-01-2022 End: 02-02-[address] DAWIT BA Facility: Start: 11-09-2021 End: 11-09-2021 ambulatory DAWIT BA SR Facility:[facility] Start: 10-13-2021 Telephone encounter Lilly pruitt MD Work Phone: [facility] Comment on above: Patient Update Start: 10-12-2021 End: 10-12-2021 ambulatory DAWIT MADI BA SR Facility:[facility] Start: 10-12-2021 End: 10-12-2021 Patient encounter procedure Lilly Tony MD Work Phone: [facility] Comment on above: Closed fracture of l eft ankle, initial encounter (Primary Dx) Start: 09-21-2021 End: 09-21-2021 ambulatory LILLY TONY Facility:[facility] Start: 09-16-2021 Telephone encounter Ag Orth Work Phone: [facility] Comment on above: ER F/U Start: 09-12-2021 End: 09-12-2021 Emergency department patient visit DAWIT BA Facility:[facility] Start: 09-03-[address] DAWIT BA Facili ty:[facility] Start: 07-27-2021 End: 07-28-2021 ambulatory MD Jluis ROBLEDO Facility:[facility] Start: 07-27-2021 End: 07-27-2021 Patient encounter procedure Jluis ROBLEDO [facility] Start: 06-24-2021 ambulatory MD Jluis ROBLEDO Facil ity:[facility] Procedures Date Procedure Procedure Detail Performing Clinician Start: 11-19-2022 Mammography Jenny beckett [place] Work Phone: Start: 06-02-2022 Esophagogastroduodenoscopy DO Dawit Ba Work Phone: Start: 06-02-2022 Colonoscopy Jenny beckett [place] Work Phone: Abdominal hysterectomy Tatiana ROBLEDO Appendectomy Jlius ROBLEDO Bilateral tubal ligation Elayne ROBLEDO Cholecystectomy Jluis COXE RS Plan of Treatment Date Care Activity Detail Author Start: 06-02-2032 Screening for malign ant neoplasm of colon [facility] Start: 07-28-2025 Diabetes Screening Diabetes Screenin g [facility] Start: 03-24-2024 Medicare Annual Well ness (AWV) Medicare Annual Wellness (AWV) [facility] Start: 11-20-2023 Screening for malign ant neoplasm of breast Mammogram [facility] Start: 10-20-2023 Glaucoma screening Diabetes: R etinopathy Screening [facility] Start: 10-12-2023 Hemoglobin A1c measurement HbA1C [facility] Start: 09-28-2023 Urine screening for protein Diabetes: Urine Protein Screening [facility] Start: 06-23-2023 End: 06-23-2023 Patient encounter procedure 06/23/2023 10:30 AM EDT Office Visit [facility] [address] [place] [address] Jenny Borrego, ZELALEM [address] [place] [address] [facility] Start: 05-17-2023 End: 08-16-2023 CREATININE BLD CREATININE BLD Lab Routine Renal mass Expected: 05/17/2023 (Approximate), Expires: 08/16/2023 [facility] Work Phone: Comment on above: Expected: 05/17/2023 (Approximate), Expires: 08/16/2023 Start: 04-22-2023 End: 03-24-2024 Hemoglobin A1c measurement Hemoglobin A1c Lab Routine Type 2 diabetes mellitus with diabetic neuropathy, with long-term current use of insulin ([facility]) Expected: 04/22/2023 (Approximate), Expires: 03/24/2024 [facility] Work Phone: Comment on above: Expected: 04/22/2023 (Approximate), Expires: 03/24/2024 Start: 04-13-2023 Erythropoietin (EPO) [Units/volume] in Serum or Plasma [facility] Start: 04-13-2023 End: 04-13-2023 [facility] Start: 04-12-2023 Hemoglobin A1c measurement Diabetes: Hemoglobin A1C [facility] Start: 03-16-2023 [facility] Start: 02-21-2023 Behavioral Health Screening Behavioral Health Screening [facility] Start: 02-21-2023 Depression Assessment Depression Ass [facility] Start: 02-11-2023 [facility] Start: 01-26-2023 Shingrix Vaccine (2 of 2) Shingrix Vaccine (2 of 2) [facility] Start: 12-20-2022 [facility] Start: 10-22-2022 Covid-19 Vaccine () Covid-19 Vaccine () [facility] Start: 10-22-2022 Influenza vaccination C [facility] Start: 10-07-2022 End: 05-09-2023 Ct abdomen w/o & w/contrast material CT KIDNEY WO/W IVCON Radiology Routine Other specified disorders of kidney and ureter Expected: 10/07/2022, Expires: 05/09/2023 [facility] Work Phone: Comment on above: Expected: 10/07/2022 , Expires: 05/09/2023 Start: 07-26-2022 [facility] Start: 07-06-2022 [facility] Start: 07-01-2022 [facility] Start: 06-23-2022 End: 06-23-2022 [facility] Start: 06-23-2022 End: 06-23-2022 [facility] Start: 06-23-2022 [facility] Start: 06-02-2022 [facility] Start: 06-02-2022 [facility] Start: 04-05-2022 End: 06-05-2022 CREATININE BLD CREATININE BLD Lab Routine Renal mass Expected: 04/05/2022, Expires: 06/05/2022 [facility] Work Phone: Comment on above: Expected: 04/05/2022 , Expires: 06/05/2022 Start: 01-01-2023 DEPRESSION ASSESSMENT DEPRESSION ASS ESSMENT [facility] Start: 10-22-2021 Influenza vaccination INFLUENZA (#1) [facility] Start: 06-25-2021 COVID-19 VACCINE (4 - Booster for Pfizer series) COVID-19 VACCINE (4 - Booster for Pfizer series) [facility] Start: 04-22-2021 COVID-19 VACCINE (4 - Booster for Pfizer series) COVID-19 VACCINE (4 - Booster for Pfizer series) [facility] Start: 04-22-2021 COVID-19 VACCINE (4 - Pfizer series) COVID-19 VACCINE (4 - Pfizer series) [facility] Start: 07-23-2017 Pneumococcal vaccination Pneum ococcal Vaccine (2 of 2 - PCV) [facility] Start: 11-06-2015 SHINGRIX VACCINE (1 of 2) SHINGRIX VACCINE (1 of 2) [facility] Start: 2010 COLOGUARD (FIT-DNA) COLOGUARD (FIT-D NA) [facility] Start: 2010 Colonoscopy COLONOSCOPY [facility] Start: 2010 COLORECTAL CANCER SCREENING COLORECTAL CANCER SCREENING [facility] Start: [address] COLONOGRAPHY [facility] Start: 2010 DIABETES SCREEN DIABETES SCREEN [facility] Start: 2010 FECAL OCCULT BLOOD FECAL OCCULT BLOO D [facility] Start: 2010 Lipid panel Lipid Screening [facility] Start: 2010 LIPID SCREEN LIPID SCREEN [facility] Start: 2010 Screening for malign ant neoplasm of colon [facility] Start: 2010 SIGMOIDOSCOPY SIGMOIDOSCOPY [facility] Start: 2005 Mammography MAMMOGRAM [facility] Start: 2005 Screening for malign ant neoplasm of breast Mammogram Screening [facility] Start: 11-06-1995 HPV TESTING HPV TESTING [facility] Start: 11-06-1995 Screening for malign ant neoplasm of cervix [facility] Start: 1986 PAP TESTING PAP TESTING [facility] Start: 1986 Screening for malign ant neoplasm of cervix [facility] Start: 1984 Hepatitis B Vaccine (1 of 3 - 19+ 3-dose series) Hepatitis B Vaccine (1 of 3 - 19+ 3-dose series) [facility] Start: 09-15-1985 Urine microalbumin profile [facility] Start: 11-06-1983 ANNUAL PCP TEAM SUB ACUTE CARE NURSE ABIOLA DISEASE VISIT ANNUAL PCP TEAM CHRONIC DISEASE VISIT [facility] Start: 11-06-1983 Hepatitis B surface antibody level LDL CHOLESTEROL [facility] Start: 11-06-1983 HEPATITIS C SCREENING HEPATITIS C [facility] Start: 11-06-1983 Hepatitis C screening Hepatitis C [facility] Start: 11-06-1983 HIV SCREENING HIV SCREENING [facility] Start: 11-06-1983 HIV screening HIV Screening [facility] Start: 1977 Adult depression screening assessment DEPRESSION SCREENING [facility] Start: 11-06-1975 Diabetic foot examination Diabetic Foot Exam [facility] Start: 11-06-1975 Glaucoma screening Dilated Retinal E xam [facility] Start: 11-06-1975 Hepatitis B screening Urine Albumin:Creatinine Ratio [facility] Start: 11-06-1971 PNEUMOCOCCAL (1 - PCV) PNEUMOCOCCAL (1 - PCV) [facility] Start: 1965 HEPATITIS B (1 of 3 - 3-dose series) HEPATITIS B (1 of 3 - 3-dose series) [facility] Start: 1965 Hepatitis B Vaccine (1 of 3 - 3-dose series) Hepatitis B Vaccine (1 of 3 - 3-dose series) [facility] Start: 1965 Screening for malign ant neoplasm of colon [facility] metabo lic 2000 panel - Serum or Plasma [facility] End: 07-14-2024 CT Abdomen W contrast IV CT ABDOMEN W IVCON Radiology Routine Other specified disorders of kidney and ureter 1 Occurrences starting 06/15/2023 until 07/14/2024 [facility] Work Phone: Comment on above: 1 Occurrences starti ng 06/15/2023 until 07/14/2024 End: 11-15-2023 Ct abdomen w/o & w/contrast material CT KIDNEY WO/W IVCON Radiology Routine Renal mass, right Other specified disorders of kidney and ureter 1 Occurrences starting 10/16/2022 until 11/15/2023 [facility] Work Phone: Comment on above: 1 Occurrences starti ng 10/16/2022 until 11/15/2023 Erythropoietin (EPO) [Units/volume] in Serum or Plasma [facility] Glucose measurement estimated from glycated hemoglobin [facility] Methylmalonate [Moles/volume] in Serum or Plasma [facility] URINALYSIS, REFLEX MICROSCOPIC URINALYSIS, REFLEX MICROSCOPIC Lab Routine Screening for genitourinary condition Ordered: 10/15/2022 [facility] Work Phone: Comment on above: Ordered: 10/15/2022 XR ANKLE GENERAL 3V AP/LAT/OBL LEFT XR ANKLE GENERAL 3V AP/LAT/OBL LEFT Radiology Routine Closed fracture of left ankle, initial encounter Ordered: 10/12/2021 [facility] Work Phone: Comment on above: Ordered: 10/12/2021 [facility] Immunizations Immunization Date Immunization Notes Care Provider [facility] 12-01-2022 influenza, injectabl e, quadrivalent, preservative free Jenny Aichholz WINDERMAN Work Phone: [facility] 12-01-2022 zoster vaccine recombinant Jenny Aichholz WINDERMAN Work Phone: [facility] 12-18-2021 influenza virus vacc ine, unspecified formulation Jluis ROBLEDO [facility] 12-18-2021 Influenza, injectabl e, Madin [place] Canine Kidney, preservative free, quadrivalent Jenny Aichholz WINDERMAN Work Phone: [facility] 02-25-2021 influenza virus vacc ine, unspecified formulation Jluis ROBLEDO [facility] 02-25-2021 influenza, injectabl e, quadrivalent, preservative free Jenny Aichholz WINDERMAN Work Phone: [facility] 02-25-2021 SARS-CoV-2 (COVID-19 ) mRNA BNT-162b2 vax Jluis ROBLEDO [facility] 11-21-2020 influenza virus vacc ine, unspecified formulation Jluis ROBLEDO [facility] 11-12-2020 influenza virus vacc ine, unspecified formulation Jluis ROBLEDO [facility] 06-19-2020 SARS-CoV-2 mRNA (tozinameran 5y-11y) vaccine Jlius ROBLEDO [facility] 05-29-2020 SARS-CoV-2 mRNA (tozinameran 5y-11y) vaccine Jluis ROBLEDO [facility] 10-17-2018 influenza virus vacc ine, unspecified formulation Jluis ROBLEDO [facility] 10-17-2018 influenza, injectabl e, quadrivalent, preservative free Jenny Aichholz WINDERMAN Work Phone: [facility] 11-23-2017 influenza virus vacc ine, unspecified formulation Jluis ROBLEDO [facility] 11-23-2017 influenza, injectabl e, quadrivalent, preservative free Jenny Aichholz WINDERMAN Work Phone: [facility] 10-20-2017 influenza virus vacc ine, unspecified formulation Jluis ROBLEDO [facility] 10-20-2017 influenza, injectabl e, quadrivalent, preservative free Jenny Aichholz WINDERMAN Work Phone: [facility] 11-22-2016 influenza virus vacc ine, unspecified formulation Jluis ROBLEDO [facility] 11-22-2016 influenza, injectabl e, quadrivalent, preservative free Jenny Aichholz WINDERMAN Work Phone: [facility] 11-06-2016 influenza virus vacc ine, unspecified formulation Jluis ROBLEDO [facility] 11-06-2016 influenza, injectabl e, quadrivalent, preservative free Jenny Aichholz WINDERMAN Work Phone: [facility] 07-23-2016 pneumococcal polysaccharide vaccine, 23 valent Jluis ROBLEDO [facility] Payers Date Payer Category Payer Medicaid MEDICAID [facility] MEDICAID [id number] 2022-Present [phone] [address] [place] [address] Medicaid [id number] 2022 Private Health Insurance [id number] 2019 Medicare MEDICARE MEDICAR E A AND B [id number] 2019-Present [phone] [address] [address] [place] [address] Medicare [id number] 2019 Medicare [id number] 2019 Private Health Insurance [facility] CHOICE PLUS [id number] 2019-Present [phone] [address] [place] [address] O [id number] 2019 Private Health Insurance [facility] CHOICE PLUS [id number] 2019-Present [phone] [address] [place] [address] O [id number] 2019 Unknown [id number] 1965 Unknown [id number] 2.16.840.1.197419.3.579.2. 727 1965 Unknown [id number] 2.16.840.1.952483.3.579.2. 727 1965 Unknown [id number] 2.16.840.1.653854.3.579.2. 727 1965 Unknown [id number] 2.16.840.1.105478.3.579.2. 593 1965 Unknown [id number] 2.16.840.1.026393.3.579.2. 593 1965 Unknown [id number] 2.16.840.1.169564.3.579.2. 593 1965 Unknown [id number] 2.16.840.1.571171.3.579.2. 593 1965 Unknown [id number] 2.16.840.1.051169.3.579.2. 1259 1965 Unknown [id number] 2.16.840.1.857388.3.579.2. 1259 1965 Unknown [id number] 2.16.840.1.652852.3.579.2. 1259 1965 Unknown [id number] 2.16.840.1.161658.3.579.2. 1259 1965 Unknown [id number] 2.16.840.1.322518.3.579.2. 1259 1965 Unknown [id number] 2.16.840.1.339065.3.579.2. 1258 1965 Unknown [id number] 2.16.840.1.843584.3.579.2. 1259 1965 Unknown [id number] 2.16.840.1.037285.3.579.2. 1259 1959 Medicaid [id number] 1959 Medicare [id number] 1959 Private Health Insurance [id number] 1959 Self-pay [id number] Medicare [id number] Unknown Lj BC/BS [id number] Unknown [id number] [id number]. 531 Social History Date Type Detail Facility Start: 07-27-2021 End: 03-05-2022 Tobacco smoking status Heavy tobacco smoker (finding) [facility] Start: 10-15-2022 End: 03-24-2023 Sex Assigned At Female [facility] Tobacco smoking stat NHIS Tobacco smoking consumption unknown [facility] Start: 1965 Sex Assigned At Not on file [facility] Start: 09-02-2021 End: 10-12-2021 Exposure to SARS-CoV-2 (event) Not sure [facility] Start: 10-12-2021 End: 01-10-2023 Tobacco smoking status NHIS Smokes tobacco daily [facility] History of tobacco use Cigarette Smoker C [facility] Start: 10-12-2021 End: 01-10-2023 Tobacco use and exposure Smokeless tobacco non-user [facility] Start: 10-12-2021 End: 10-15-2022 Alcohol intake Ex-drinker (finding) [facility] Start: 06-02-2022 End: 07-30-2022 Tobacco smoking status NHIS Smoker (finding) [facility] Start: 1965 Sex Assigned At Female F [facility] Start: 10-15-2022 End: 03-24-2023 History of Social function [facility] National Score (1-10 0), lower number is lower risk 63 [facility] Within the last year , have you [...] Text Equipment Identifier Dates USE TWICE DAILY [id number] Start: 02-12-2023 Goals Date Patient Goal Desired Activity /State Functional Status Date Assessment Result Facility 03-05-2022 Functional Status N/A [facility] Clinical Notes 07-27-2021 to 08-18-2023 Lex Pickens MD - 06/15/2023 11:00 AM EDTTelephone Encounter - Josie Leong RN - 04/28/2023 12:15 PM Robert Borrego NP - 03/24/2023 7:10 PM Robert Borrego NP - 03/24/2023 7:07 PM EST Note Date & Type Note Facility 08-18-2023 Note [facility] Subjective Elmer Ellis is a 57 [...] History of deep vein thrombosis Intermittent claudication ([facility]/HCC) Tobacco dependence syndrome Smoker Renal mass Other specified disorders of kidney and ureter Morbid obesity ([facility]/HCC) Intermittent palpitations Abnormal PFT Abnormal stress test Anemia Anxiety and depression Arthritis Arthritis of left acromioclavicular joint Bilateral lower extremity edema Cancer of kidney ([facility]/HCC) Chondromalacia of left patella Chronic back pain Chronic bronchitis ([facility]/HCC) Chronic cough 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 ([facility]) Diabetic neuropathy, painful ([facility]) Encounter for annual wellness visit (AWV) in Medicare patient Environmental and seasonal allergies Family history of lung cancer Gallstone Gastroesophageal reflux disease without esophagitis History of varicose veins Incomplete bladder emptying Internal derangement of left knee Internal derangement of right knee Intestinal malabsorption, unspecified Iron deficiency anemia Lumbosacral plexus lesion Mucopurulent chronic bronchitis ([facility]) Neuropathy ELENA (obstructive sleep apnea) Osteoporosis Other [...] are equal, r (more content not included)... [facility] 06-15-2023 Note HNO ID: [id number] Author: LEX PICKENS MD Service: ? Author Type: Physician Type: Progress Notes Filed: 06/15/2023 12:22 Note Text: VIRTUAL VISIT PROGRESS NOTE This is a virtual visit using [employer] Video Visit. It required patient-provider interaction for the medical decision making as documented below. I have communicated my name and active licensure. The patient's identity and physical location were verified at the time of this visit. Either the patient or their legal claim representative has been informed of the risks [...] mg by mouth twice daily. MV with Vbx-Mgcsstgn-Ikqzba (CENTRUM SILVER) 0.4 mg-300 mcg- 250 mcg tab Take by mouth. (Patient not taking: Reported on 03/16/2022) insulin 75/25 lispro protamine/lispro units/mL (HUMALOG MIX 75-25,U-100,INSULN) 100 units/mL susp as directed. HYDROcodone-acetaminophen (NORCO) 5-325 mg per tablet hydrocodone 5 mg-acetaminophen 325 mg tablet TAKE 1 TO 2 TABLETS BY MOUTH EVERY DAY AT BEDTIME NEEDED nuecfzbz-rkp-fuof-FA-lutein (CENTRUM SILVER WOMEN) 8 mg iron-400 mcg-300 [...] release 24 hr (more content not included)... [facility] 06-15-2023 History of Present illness Narrative VIRTUAL VISIT PROGRESS NOTE This is a virtual visit using [employer] Video Visit. It required patient-provider interaction for the medical decision making as documented below. I have communicated my name and active licensure. The patient's identity and physical location were verified at the time of this visit. Either the patient or their legal claim representative has been informed of the risks [...] mg by mouth twice daily. MV with Kwe-Llrtgbpw-Aqlacn (CENTRUM SILVER) 0.4 mg-300 mcg- 250 mcg tab Take by mouth. (Patient not taking: Reported on 03/16/2022) insulin 75/25 lispro protamine/lispro units/mL (HUMALOG MIX 75-25,U-100,INSULN) 100 units/mL susp as directed. HYDROcodone-acetaminophen (NORCO) 5-325 mg per tablet hydrocodone 5 mg-acetaminophen 325 mg tablet TAKE 1 TO 2 TABLETS BY MOUTH EVERY DAY AT BEDTIME NEEDED zikywzhg-kau-alpn-FA-lutein (CENTRUM SILVER WOMEN) 8 mg iron-400 mcg-300 [...] which included preparing to see the patient, rmrl-lc-tctd patient care, and counseling and educating the patient/family/caregiver Lex Pickens MD documented in this encounter [facility] 05-17-2023 Note HNO ID: [id number] Author: FRANCO LACY RT(R) Service: Radiology Author [...] PATIENT PRESENTS WITH AN IMPLANTABLE OR ATTACHED VESSEL LINER: No RADIOLOGY DEPARTMENT: CT; Exam(s) Completed: Kidney PERIPHERAL IV DATA: Site assessment: Clean,Dry and Intact, Site disposition Discontinued 20g right forearm SIGNED BY: RT José Miguel(R) May 17, 2023 2:00 PM [facility] 05-17-2023 Note HNO ID: [id number] Author: JOI GREENE RN Service: ? Author [...] DATE: May 17, 2023 TIME: 2:02 PM [facility] 04-28-2023 Miscellaneous Notes Please sign pended Cre for upcoming CT. Pt needs updated lab before CT can be done Thank You! Josie Leong RN documented in this encounter [facility] 03-24-2023 History of Present illness Narrative Associated Problem(s): Encounter for annual wellness visit (AWV) in Medicare patient Reviewed Ht/Wt/BMI Recommend eye exam yearly Recommend dental exams twice a year Balance work/leisure activities Exercises is recommended most days of the week (appropriate as chronic conditions allow) Follow up yearly and prn Associated Problem(s): Type 2 diabetes mellitus with insulin therapy ([facility]) Check blood sugars daily, notify if <70 [...] in March Associated Problem(s): Cancer of kidney ([facility]) Continue with specialty for monitoring Associated Problem(s): 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 She does not see a outreach educator.Eye exam is current. 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 ([facility] Cancer of kidney ([facility]) Chronic back pain Chronic bronchitis ([facility]) Chronic cough Cigarette nicotine dependence Cough Diabetes mellitus type 2 in obese ([facility]) 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 ([facility]) Diabetic neuropathy, painful ([facility]) Factor V Leiden ([facility]) Factor 5 Leiden deficiency Family history of cancer High cholesterol ([facility]) History of DVT (deep vein thrombosis) history of DVT no PE History of kidney cancer History of pancreatitis History of pneumonia History of varicose veins Intermittent claudication ([facility]) Kidney problem spot on kidney Mucopurulent chronic bronchitis ([facility]) Neuropathy ELENA (obstructive sleep apnea) Osteoporosis ([facility]) Pneumonia Sinusitis Tobacco user Type 2 diabetes mellitus with insulin therapy ([facility]) 03/24/2023 Past Surgical History: Procedure Laterality Date [...] List Items Addressed This Visit 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 (CMS/HCC) No acute angina symptoms Cont current meds Goal: control BP, diabetes, lipids, and QUIT smoking Tobacco user Recommend quitting, pt declines Cancer of kidney ([facility]) Continue with specialty for monitoring Type 2 diabetes mellitus with diabetic neuropathy, with long-term current use of insulin ([facility]) Relevant Orders Hemoglobin A1c Type 2 diabetes mellitus with insulin therapy ([facility]) Check blood sugars daily, notify if <70 [...] MINI PEN NEEDLES 31G X 5 MM [facility] USE TWICE DAILY cilostazol (Pletal) 100 MG tablet TAKE 1 TABLET BY MOUTH TWICE A DAY DIRECTED Oral for 90 clopidogrel (Plavix) 75 MG tablet 1 (one) time each day at the same time. Continuous Blood Gluc Sensor (FreeStyle Joelle 2 Sensor) [facility] USE TO TEST BLOOD SUGAR 4 TIMES [...] Yes Vision Screening: Yes, patient sees regular instructional systems design consultant/ems instructor Hearing Screening: Not done Cognitive Screening Self Assessment: No overt cognitive deficiency is apparent by direct observation Three Word Registration: Banana, [place], Chair Clock Drawing: Normal Clock - 2 Three Word Recall: All 3 words correct - 3 Pain Assessment Pain Score: 0 - No pain Advance Care Planning Do you have a living will?: No Do you have a medical power of auto inspection specialist?: No Objective : BP 112/70 (BP Location: [...] March 24, 2023 documented in this encounter [facility] 10-15-2022 Note Patient Outreach (UR OLMN) ELMER ELLIS ([id number]) 1965 F Date Time Provider Department 10/15/22 LEX PICKENS During your visit today, we recorded the following information about you: Allergies As of Date: 10/15/2022 (No Known Allergies) Date Reviewed: 10/15/2022 Reviewed by: Angie Mcclellan APRN.FLATWORK PRESSER - Fully Assessed Visit Diagnosis:Screening for genitourinary condition [Z13.89] Order(s):URINALYSIS, REFLEX MICROSCOPIC [[id number]] Order #: [id number] Prescriptions as of 10/18/2022 - DULoxetine (CYMBALTA) [...] by mouth twice daily. - MV with Mve-Fhrinxjx-Aemttc (CENTRUM SILVER) 0.4 mg-300 mcg- 250 mcg tab Take by mouth. - insulin 75/25 lispro protamine/lispro units/mL (HUMALOG MIX 75-25,U-100,INSULN) 100 units/mL susp as directed. - HYDROcodone-acetaminophen (NORCO) 5-325 mg per tablet hydrocodone 5 mg-acetaminophen 325 mg tablet TAKE 1 TO 2 TABLETS BY MOUTH EVERY DAY AT BEDTIME NEEDED - bgtfgftq-mxp-zluc-FA-lutein (CENTRUM SILVER WOMEN) 8 mg iron-400 mcg-300 [...] (HCC) [D68.51] 04/19/2022 Coronary artery disease involving hamilton heart *04/19/2022 Smoker [F17.200] 04/19/2022 Morbid obesity (HCC) [E66.01] 04/19/2022 Other specified disorders of kidney and ureter *04/19/2022 Encounter Status:Closed by [employer] on 10/18/22 [facility] 10-15-2022 Note HNO ID: [id number] Author: Angie Mcclellan APRN.FLATWORK PRESSER Service: ? Author Type: Nurse Practitioner Type: Progress Notes Filed: 10/16/2022 9:14 AM Note Text: VIRTUAL VISIT PROGRESS NOTE This is a virtual visit using [employer] video visit. It required patient-provider interaction for the medical decision making as documented below. I have communicated my name and active licensure. The patient's identity and physical location were verified at the time of this visit. Either the patient or their legal claim representative has been informed of the risks [...] PPD. Past Surgical History: Open cholecystectomy (1984), MARUICE/BSO for endometriosis (1991), spinal surgery, knee surgery [...] mg by mouth twice daily. MV with Dcv-Dbuenbty-Bpincm (CENTRUM SILVER) 0.4 mg-300 mcg- 250 mcg tab Take by mouth. (Patient not taking: Reported on 03/16/2022) insulin 75/25 lispro protamine/lispro units/mL (HUMALOG MIX 75-25,U-100,INSULN) 100 units/mL susp as directed. HYDROcodone-acetaminophen (NORCO) 5-325 mg per tablet hydrocodone 5 mg-acetaminophen 325 mg tablet TAKE 1 TO 2 TABLETS BY MOUTH EVERY DAY AT BEDTIME NEEDED hqktptei-crr-thim-FA-lutein (CENTRUM SILVER WOMEN) 8 mg iron-400 mcg-300 mcg tab furosemide (LASIX) 40 mg tablet furosemide 40 mg tablet TAKE 1 AND 1/2 TABLETS BY MOUTH DAILY clopidogrel (PLAVIX) 75 mg tablet clopidogrel 75 mg tablet TAKE 1 TABLET BY MOUTH EVERY DAY metoprolol succinate ER (TOPROL XL) 25 mg 24 hr tablet met (more content not included)... [facility] 10-15-2022 History of Present illness Narrative VIRTUAL VISIT PROGRESS NOTE This is a virtual visit using [employer] video visit. It required patient-provider interaction for the medical decision making as documented below. I have communicated my name and active licensure. The patient's identity and physical location were verified at the time of this visit. Either the patient or their legal claim representative has been informed of the risks [...] mg by mouth twice daily. MV with Tog-Uyjyxvab-Nocmqh (CENTRUM SILVER) 0.4 mg-300 mcg- 250 mcg tab Take by mouth. (Patient not taking: Reported on 03/16/2022) insulin 75/25 lispro protamine/lispro units/mL (HUMALOG MIX 75-25,U-100,INSULN) 100 units/mL susp as directed. HYDROcodone-acetaminophen (NORCO) 5-325 mg per tablet hydrocodone 5 mg-acetaminophen 325 mg tablet TAKE 1 TO 2 TABLETS BY MOUTH EVERY DAY AT BEDTIME NEEDED blqrcihf-nuj-sxdg-FA-lutein (CENTRUM SILVER WOMEN) 8 mg iron-400 mcg-300 [...] which included preparing to see the patient, dqmo-kq-sswe patient care, completing clinical documentation, counseling and educating the patient/family/caregiver, and ordering medications, tests, or procedures Angie Mcclellan APRN.FLATWORK PRESSER documented in this encounter [facility] 10-07-2022 Note HNO ID: [id number] Author: Christel Hua RT([place]) Service: ? Author [...] RT Luan(R) October 07, 2022 10:33 AM [facility] 04-09-2022 History of Present illness Narrative Images [...] mg by mouth twice daily. MV with Eyb-Frpplhqg-Miqfxw (CENTRUM SILVER) 0.4 mg-300 mcg- 250 mcg tab Take by mouth. (Patient not taking: Reported on 03/16/2022) insulin 75/25 lispro protamine/lispro units/mL (HUMALOG MIX 75-25,U-100,INSULN) 100 units/mL susp as directed. HYDROcodone-acetaminophen (NORCO) 5-325 mg per tablet hydrocodone 5 mg-acetaminophen 325 mg tablet TAKE 1 TO 2 TABLETS BY MOUTH EVERY DAY AT BEDTIME NEEDED elmtieoe-hty-lkls-FA-lutein (CENTRUM SILVER WOMEN) 8 mg iron-400 mcg-300 [...] prescribing physician. I25.10 Coronary artery disease involving hamilton heart without angina pectoris, unspecified vessel or [...] Lex Pickens MD documented in this encounter [facility] 03-19-2022 Miscellaneous Notes Please sign pending Cre order for upcoming CT with contrast on 04/05/22. Thank you. Joi Austin RN documented in this encounter [facility] 03-16-2022 History of Present illness Narrative Referring [...] prescribing physician. I25.10 Coronary artery disease involving hamilton heart without angina pectoris, unspecified vessel or [...] Lex Pickens MD documented in this encounter [facility] 03-05-2022 Hospital Discharge instructions Patient Education 03/05/2022 [...] provider gives to you. In general: Take eoxy-qcf-vamefnd and prescription medicines only as told by [...] 09/04/2014 Document Revised: 03/16/2018 Document Reviewed: 03/16/2018 SMRxT Patient Education 2020 [employer]. Follow Up Care 07/27/2021 10:19:10 With:VENKAT SAWYER, Jluis Jacinto, URL Address: [address] [place] [address]- When: Unknown [facility] 11-09-2021 Note HNO ID: [id number] Author: Lilly Tony MD Service: ? Author [...] mg by mouth twice daily. MV with Kuo-Vvcccgiw-Dzgwxq (CENTRUM SILVER) 0.4 mg-300 mcg- 250 mcg tab Take by mouth. insulin 75/25 lispro protamine/lispro units/mL (HUMALOG MIX 75-25,U-100,INSULN) 100 units/mL susp as directed. HYDROcodone-acetaminophen (NORCO) 5-325 mg per tablet hydrocodone 5 mg-acetaminophen 325 mg tablet TAKE 1 TO 2 TABLETS BY MOUTH EVERY DAY AT BEDTIME NEEDED ujbepkdl-cmb-zlbz-FA-lutein (CENTRUM SILVER WOMEN) 8 mg iron-400 mcg-300 [...] activity without re (more content not included)... [facility] 10-19-2021 Note HNO ID: [id number] Author: Lilly Tony MD Service: ? Author [...] mg by mouth twice daily. MV with Bpu-Tqyikahx-Jzjmuq (CENTRUM SILVER) 0.4 mg-300 mcg- 250 mcg tab Take by mouth. insulin 75/25 lispro protamine/lispro units/mL (HUMALOG MIX 75-25,U-100,INSULN) 100 units/mL susp as directed. HYDROcodone-acetaminophen (NORCO) 5-325 mg per tablet hydrocodone 5 mg-acetaminophen 325 mg tablet TAKE 1 TO 2 TABLETS BY MOUTH EVERY DAY AT BEDTIME NEEDED gkleslxu-slf-eyub-FA-lutein (CENTRUM SILVER WOMEN) 8 mg iron-400 mcg-300 [...] extremity. S (more content not included)... [facility] 10-18-2021 History of Present illness Narrative ORTHOPAEDIC [...] mg by mouth twice daily. MV with Jke-Gqgbuoek-Gimhgh (CENTRUM SILVER) 0.4 mg-300 mcg- 250 mcg tab Take by mouth. insulin 75/25 lispro protamine/lispro units/mL (HUMALOG MIX 75-25,U-100,INSULN) 100 units/mL susp as directed. HYDROcodone-acetaminophen (NORCO) 5-325 mg per tablet hydrocodone 5 mg-acetaminophen 325 mg tablet TAKE 1 TO 2 TABLETS BY MOUTH EVERY DAY AT BEDTIME NEEDED hxqyepnd-pdj-kxqs-FA-lutein (CENTRUM SILVER WOMEN) 8 mg iron-400 mcg-300 [...] Lilly Tony MD documented in this encounter [facility] 10-13-2021 Miscellaneous Notes Received voicemail from patient [...] bear any weight. Patient has taken 1 Ellington about an hour ago and said it is not helping the pain at all. Advised I would send message to and call patient once direction is received. Patient understood and had no further questions. Filomena Madrigal October 13, 2021 11:23 AM documented in this encounter [facility] 09-22-2021 Note HNO ID: [id number] Author: Lilly Tony MD Service: ? Author [...] with nonweightbearing status. She will occasionally take Ellington for pain relief which is effective. She is also supplemented with fbsx-xsx-nndmutb pain medications. Her medical history significant for Beatties, coronary artery disease, diabetes and associated lower extremity neuropathy, DVT requiring Plavix and Xarelto for anticoagulation. 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 She also has kidney cancer that is [...] by mouth twice daily. - MV with Nle-Joycouab-Ixykij (CENTRUM SILVER) 0.4 mg-300 mcg- 250 mcg tab Take by mouth. - insulin 75/25 lispro protamine/lispro units/mL (HUMALOG MIX 75-25,U-100,INSULN) 100 units/mL susp as directed. - HYDROcodone-acetaminophen (NORCO) 5-325 mg per tablet hydrocodone 5 mg-acetaminophen 325 mg tablet TAKE 1 TO 2 TABLETS BY MOUTH EVERY DAY AT BEDTIME NEEDED - hjkfdggo-aqd-eekz-FA-lutein (CENTRUM SILVER WOMEN) 8 mg iron-400 mcg-300 [...] Peripheral Pulses (more content not included)... [facility] 09-16-2021 Miscellaneous Notes Called and spoke to patient regarding L ankle fracture OS 09/12/21. Patient was seen at [facility] ED after falling she fell in [...] facility was the patient seen at: - [place] / 09.12.2021 Was an appointment scheduled (Y/N): n Person calling if other than patient: n Return call to if other than patient: n Best contact number: [phone] Thank you, Peggy Wigginsno September 15, 2021 4:27 PM documented in this encounter [facility] 07-27-2021 Hospital Discharge instructions Patient Education 07/27/2021 [...] provider gives to you. In general: Take etji-ukk-rrrxzzg and prescription medicines only as told by [...] 09/04/2014 Document Revised: 03/16/2018 Document Reviewed: 03/16/2018 SMRxT Patient Education 2020 [employer]. 07/27/2021 10:06:53 Calorie Counting for Weight Loss [...] 02/07/2006 Document Revised: 10/27/2018 Document Reviewed: 01/07/2017 SMRxT Patient Education [employer]. Follow Up Care 06/24/2021 14:48:04 With:VENKAT SAWYER, Jluis Jacinto, URL Address: [facility] [address], [place] [address]- [phone] When:01/26/2022 Comments:[address] scan [facility] Evaluation + Plan note Future Appointments Appointment Date:02/01/2022 11:15:00 AM Scheduled Provider:Jluis ROBLEDO MD Location:[facility] Appointment Type:URO Office Visit Diagnostic Tests PendingBUN 07/27/21Creatinine 07/27/21 [facility] Evaluation + Plan note [facility] Evaluation note Diagnosis Closed fracture of left ankle, initial encounter- Primary [facility] Diagnosis Renal mass- Primary Unspecified disorder of kidney and ureter [facility] Diagnosis Renal mass, right- Primary Unspecified disorder of kidney and ureter Factor V Leiden (HCC) Primary hypercoagulable state Coronary artery disease involving hamilton heart without angina pectoris, unspecified vessel or lesion type Smoker Tobacco use disorder Morbid obesity (HCC) Morbid obesity 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 mass Unspecified disorder of kidney and ureter [facility] Diagnosis Other specified disorders of kidney and ureter- Primary [facility] Work Phone: Evaluation note* Diagnosis Renal mass, right- Primary Unspecified disorder of kidney and ureter Family history of renal cancer Family history of malignant neoplasm of kidney Morbid obesity (HCC) Morbid obesity Current every day smoker Tobacco use disorder Other specified disorders of kidney and ureter [facility] Diagnosis Screening for genitourinary condition Screening for other and unspecified genitourinary condition [facility] Diagnosis Encounter for annual wellness visit (AWV) in Medicare patient- Primary Type 2 diabetes mellitus with diabetic neuropathy, with long-term current use of insulin (CMS/HCC) 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 (CMS/HCC) Tobacco user Tobacco use disorder Malignant neoplasm of kidney, unspecified laterality (CMS/HCC) Type 2 diabetes mellitus with insulin therapy ([facility]/HCC) Routine general medical examination at health care facility Routine general medical examination at a health care facility documented in this encounter [facility] HealthcareEvaluation note* Diagnosis 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 (CMS/HCC)- Primary documented in this encounter [facility] HealthcareEvaluation note* Diagnosis Acute non-recurrent sinusitis of other sinus- Primary documented in this encounter [facility] HealthcareEvaluation note* Diagnosis Onset Date Resolution Status Iron deficiency anemia acute [facility] Work Phone: Evaluation note* Diagnosis Renal mass- Primary Unspecified disorder of kidney and ureter [facility]* Diagnosis Other specified disorders of kidney and ureter- Primary Renal mass Unspecified disorder of kidney and ureter Morbid obesity (HCC) Morbid obesity Type 2 diabetes mellitus with diabetic neuropathy, with long-term current use of insulin ([facility]) documented in this encounter [facility] Narrative No data available for this section [facility] progress note No data available for this section [facility] reason for referral (narrative)* Diagnostic Procedure Only (Routine) - Pending Review Specialty Diagnoses / Procedures Referred By Contac t Referred To Contact XR IMAGING Diagnoses Closed fracture of left ankle, initial encounter Procedures XR ANKLE GENERAL 3V AP/LAT/OBL LEFT RADEX ANKLE COMPLETE MINIMUM 3 VIEWS Lilly Tony MD [address] [address] Xr Imaging Referral ID Status Reason Start Date Expiration Date Visits Requested Visits Authorized [id number] Pending Review Auto-Generat ed Referral 10/12/2021 11/11/2022 1 1 [facility] for referral (narrative) Referred by: VENKAT SAWYER, Jluis Jacinto [facility] Summary Purpose Family History No Family History Records Found Relationship Condition Age at Onset Recorded Date/T moi Not Specified Myocardial infarction Unknown Diabetes mellitus Unknown Hypertension Unknown sister Malignant neoplasm of lung Unknown father Diabetes mellitus Unknown Transient ischemic attack Unknown Advance Directives No Advanced Directives Records FoundDocuments on File Type Date Recorded 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 Lead 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 anation Advance Directive(s) 09/12/2021 2:13 PM [...] W & W/O CONTRAST Lex Pickens MD [id number] [facility] [place] [address] Referral ID Status Reason Start Date Expiration Date Visits Requested Visits Authorized [id number] Pending Review Auto-Generat ed Referral 10/16/2022 11/15/2023 1 1 Specialty Diagnoses / Procedures Referred By April valdez Referred To Contact CT IMAGING Diagnoses Other specified disorders of kidney and ureter Procedures CT KIDNEY WO/W IVCON CT ABDOMEN W & W/O CONTRAST Judson Quiroga MD [id number] Referral ID Status Reason Start Date Expiration Date V isits Requested Visits Authorized [id number] Closed Auto-Generate d Referral 03/16/2022 04/15/2023 1 1 Chief Complaint and Reason for Visit Chief Complaint Anemia, Lower Hemogl obin Chief Complaint Anemia E11.40 Z79.4 Reason for Visit Iron deficiency anem ia Additional Source Comments INFORMATION SOURCE (unrecogn ized section and content) DATE CREATED AUTHOR 12/25/2020 [facility] DATE CREATED AUTHOR AUTHOR'S ORGANIZ ATION 07/25/2021 [facility] DATE CREATED AUTHOR AUTHOR'S ORGANIZ ATION 11/22/2021 [facility] DATE CREATED AUTHOR AUTHOR'S ORGANIZ ATION 03/05/2022 [facility] DATE CREATED AUTHOR AUTHOR'S ORGANIZ ATION 06/25/2022 [facility] DATE CREATED AUTHOR AUTHOR'S ORGANIZ ATION 06/16/2023 [facility] DATE CREATED AUTHOR AUTHOR'S ORGANIZ ATION 07/14/2023 [facility] DATE CREATED AUTHOR AUTHOR'S ORGANIZ ATION 08/08/2023 [facility] DATE CREATED AUTHOR AUTHOR'S ORGANIZ ATION 08/19/2023 [facility] Source Comments (unrecognize d section and content) In the event this informatio n is protected by the Federal Confidentiality of Alcohol and Drug Abuse Patient Records regulations: The Federal rules restrict any use of the information to criminally investigate or prosecute any alcohol or drug abuse patient.[facility] the event this information is protected by the Federal Confidentiality of Alcohol and Drug Abuse Patient Records regulations: The Federal rules restrict any use of the information to criminally investigate or prosecute any alcohol or drug abuse patient.[facility] the event this information is protected by the Federal Confidentiality of Alcohol and Drug Abuse Patient Records regulations: The Federal rules restrict any use of the information to criminally investigate or prosecute any alcohol or drug abuse patient.[facility] the event this information is protected by the Federal Confidentiality of Alcohol and Drug Abuse Patient Records regulations: The Federal rules restrict any use of the information to criminally investigate or prosecute any alcohol or drug abuse patient.[facility] the event this information is protected by the Federal Confidentiality of Alcohol and Drug Abuse Patient Records regulations: The Federal rules restrict any use of the information to criminally investigate or prosecute any alcohol or drug abuse patient.[facility] the event this information is protected by the Federal Confidentiality of Alcohol and Drug Abuse Patient Records regulations: The Federal rules restrict any use of the information to criminally investigate or prosecute any alcohol or drug abuse patient.[facility] the event this information is protected by the Federal Confidentiality of Alcohol and Drug Abuse Patient Records regulations: The Federal rules restrict any use of the information to criminally investigate or prosecute any alcohol or drug abuse patient.[facility] the event this information is protected by the Federal Confidentiality of Alcohol and Drug Abuse Patient Records regulations: The Federal rules restrict any use of the information to criminally investigate or prosecute any alcohol or drug abuse patient.[facility] the event this information is protected by the Federal Confidentiality of Alcohol and Drug Abuse Patient Records regulations: The Federal rules restrict any use of the information to criminally investigate or prosecute any alcohol or drug abuse patient.[facility] the event this information is protected by the Federal Confidentiality of Alcohol and Drug Abuse Patient Records regulations: The Federal rules restrict any use of the information to criminally investigate or prosecute any alcohol or drug abuse patient.[facility] Reason for Visit (unrecogniz ed section and content) Reason Comments ER F/U Reason Comments Patient Update Reason Comments Established Patient Follow Up Reason Comments Orders CT Reason Comments Consult Reason Comments Follow Up Reason Comments Orders Care Teams (unrecognized sec tion and content) Mathematics Department Chair Relationship Specialty Start Date End Date Dawit Ba Sr. PCP - General Family Practice 10/24/14 Mathematics Department Chair Relationship Specialty Start Date End Date Dawit Ba Sr. PCP - General Family Practice 10/24/14 Mathematics Department Chair Relationship Specialty Start Date End Date Dawit Ba Sr. PCP - General Family Practice 10/24/14 Mathematics Department Chair Relationship Specialty Start Date End Date Dawit Ba Sr. PCP - General Family Medicine 10/24/14 Mathematics Department Chair Relationship Specialty Start Date End Date Dawit Ba Sr. PCP - General Family Medicine 10/24/14 Mathematics Department Chair Relationship Specialty Start Date End Date Dawit Ba Sr. PCP - General Family Medicine 10/24/14 Team Status: Active Member Role Status Dates Dawit Ba , Primary Care Provider Active Team Status: Inactive Member Role Status Dates Dawit Ba , Primary Care Provider Active Bebo Sims DO Attending Provider Active Mathematics Department Chair Relationship Specialty Start Date End Date Dawit Ba Sr. PCP - General Family Medicine 10/24/14 Mathematics Department Chair Relationship Specialty Start Date End Date Dawit Ba Sr. PCP - General Family Medicine 10/24/14 Mathematics Department Chair Relationship Specialty Start Date End Date Ludin Blanchard MD PCP - General Family Medicine 10/06/22 Jenny Borrego NP [address] [place] [address] Nurse Practitioner [facility] Medicine 12/27/22 Mathematics Department Chair Relationship Specialty Start Date End Date Ludin Blanchard MD PCP - General Family Medicine 10/06/22 eJnny Borrego NP [address] [place] [address] Nurse Practitioner Family Medicine 12/27/22 Mathematics Department Chair Relationship Specialty Start Date End Date Ludin Blanchard MD PCP - General Family Medicine 10/06/22 Jenny Borrego NP [address] [place] [id number] Nurse Practitioner [facility] 12/27/22 Team Status: Active Member Role Status [...] April 13, 2023 End: April 13, 2023 Mathematics Department Chair Relationship Specialty Start Date End Date Dawit Ba Sr., PCP - General Family Medicine 10/24/14 Mathematics Department Chair Relationship Specialty Start Date End Date Dawit [...] BE BASED ON THE PRIMARY CLINICAL RECORDS. [facility] [employer] [facility]. provides no warranty or guarantee of the accuracy or completeness of information in this document.
--- NOTE | 2023-09-15 08:00 | CA_ITS ---
Patient Name: ELMER ELLIS MR#: [id number] : 1965 Exam Date: 09/15/2023 Ordering Doctor: DR MALIK NI M.D. ECHOCARDIOGRAM REPORT PROCEDURE: CA ECHO DOPPLER COMPLETE INDICATIONS: Dyspnea, edema, diabetes, smoker COMPARISON: None. DESCRIPTION: COMPLETE ECHOCARDIOGRAM Real-time transthoracic echocardiography with 2D, M-mode, spectral and color flow Doppler performed. QUALITY: Technical quality was adequate. LEFT VENTRICLE: Normal chamber size. Normal left ventricular wall thickness. LV EF: Global left ventricular systolic function is normal; visually estimated ejection fraction is 55 to 60%. Unable to assess regional wall motion abnormalities. Consider contrast study for better delineation of endocardial borders. DIASTOLIC: Normal diastolic function. ATRIAL SEPTUM: Inadequately seen. LEFT ATRIUM: Normal chamber size. RIGHT ATRIUM: Normal chamber size. RIGHT VENTRICLE: Normal chamber size. Normal right ventricular systolic function. TRICUSPID VALVE: Normal mobility and thickness. No stenosis with no regurgitation. MITRAL VALVE: Normal mobility and thickness. No evidence of mitral valve stenosis. There is no mitral annular calcification. Trivial mitral regurgitation. AORTIC VALVE: Normal trileaflet appearance. No visible sclerosis. Normal leaflet mobility. No evidence of aortic valve stenosis. No aortic regurgitation. AORTIC ROOT: Normal diameter and appearance. Ascending aorta is normal in size. PULMONIC VALVE: Normal thickness and mobility. No stenosis. No regurgitation. PERICARDIUM: Anterior free space; trivial effusion versus fat pad IVC: Not well visualized. CONCLUSION: 1. Global left ventricular systolic function is normal; visually estimated ejection fraction is 55 to 60% 2. Normal right ventricular size and systolic function 3. Normal diastolic function 4. The left atrium is normal in size 5. Valves are poorly seen; no significant valvular abnormalities 6. Anterior free space; trivial effusion versus fat pad Adult Echocardiography Procedure Report Left Ventricle LVEDD (3.7 - 5.6 cm): 4.41 cm LVESD (2.2 - 4.0 cm): 3.02 cm LVIVS thickness (0.6 - 1.2 cm): 1.01 cm LVPW thickness (0.5 - 1.0 cm): 0.98 cm E - e': 8.31 LVOT Max Gradient: 1.63 mm[Hg] LVOT Area (cm2): 0.64 m/s Peak Velocity (LVOT): 0.64 m/s Mean Velocity (LVOT): 0.41 m/s LVOT Diameter 2.12 cm Left Atrium LA Volume Index (2D A2C): 24.48 ml/m2 Left Atrium Systolic Dimension: 3.90 cm Mitral Valve MV E to A Ratio: 1.08 Mitral Valve A-Wave Peak Velocity: 0.69 m/s Mitral Valve E-Wave Peak Velocity: 0.74 m/s Right Ventricle Aorta AO Root Diam: 3.01 cm Ascending Ao Diam: 2.71 cm Aortic Valve AoV Area (Peak Chris): 1.81 cm2, 1.81 cm2 AoV Area (VTI): 2.01 cm2, 2.01 cm2 Peak Velocity(Antegrade Flow): 1.24 m/s Peak Gradient(Antegrade Flow): 6.14 mm[Hg] Mean Velocity(Antegrade Flow): 0.84 m/s Mean Gradient(Antegrade Flow): 3.15 mm[Hg] Velocity Time Integral: 27.83 cm Tricuspid Valve Pulmonic Valve Mean Gradient: 1.79 mm[Hg] Mean Velocity: 0.63 m/s Peak Velocity: 0.87 m/s, 0.95 m/s Peak Gradient: 3.62 mm[Hg], 3.05 mm[Hg] Right Atrium Right Atrium Systolic Pressure: 42.53 ml, 42.53 ml Dictated by: Jose Alberto Hyde M.D. on 09/15/2023 at 13:20 Approved by: Jose Alberto Hyde M.D. on 09/15/2023 at 13:26
--- NOTE | 2023-09-15 08:40 | NM_ITS ---
Patient Name: ELMER ELLIS MR#: [id number] : 1965 Exam Date: 09/15/2023 Ordering Doctor: DR MALIK NI M.D. RADIOLOGY REPORT PROCEDURE: NM MONIK PERF SPECT REST STR COMPARISON: None. INDICATIONS: CORONARY ARTERY DISEASE, DYSPNEA TECHNIQUE: Exam Description: Stress/Rest two day protocol gated SPECT Rest Imagin.9 mCi Tc-99m Cardiolite IV on 09/15/2023 Stress Imaging 25.8 mCi Tc-99m Cardiolite IV on 09/19/2023 Exercise Protocol: 0.4 mg Lexiscan given IV Heart Rate (bpm): Rest: 77 Max: 91 PMHR: 55 Blood Pressure: Rest: 110/62 Max: 114/60 Symptoms: Rest and peak stress ECG findings were pending and the exercise portion of the study was pending per attending physician Dr. CHAVIS . For more details please see separate cardiac stress test report. FINDINGS: QUALITY OF STUDY: Excellent. PERFUSION DEFECT: LOCATION: [place]. SIZE: Small (1-2 segments). SEVERITY: Mild. TYPE: Persistent. WALL MOTION: Normal. LV SIZE: Normal. 84 mL. TID / TCD: None; 1.0 LVEF: Normal. Calculated EF 68%. SUMMARY: Myocardial perfusion imaging study has ABNORMAL findings. CONCLUSION: 1. No acute or reversible ischemia. 2. Small fixed perfusion defect versus attenuation artifact at the apex. 3. Normal left ventricle volume, wall motion, and ejection fraction. Dictated by: Vishal Ashton M.D. on 09/19/2023 at 16:37 Approved by: Vishal Ashton M.D. on 09/19/2023 at 16:41
== END 2023-09-15 07:25 | disposition home or self-care (01) ==
PROVIDERS: PCP Nurse Practitioner; Visit Provider Internal Medicine Interventional Cardiology
DX: I25.10 Atherosclerotic heart disease of native coronary artery without angina pectoris (principal); R06.02 Shortness of breath; R60.0 Localized edema
CPT/HCPCS: 78452; 93306; A9500

== ENCOUNTER 2023-09-15 07:25 | Outpatient (OUT) | payer MEDICARE, MEDICAID, SELFPAY ==
--- OUTSIDE RECORDS SUMMARY | 2023-09-15 07:30 | XMS_ITS | CCD ---
Author Organization [facility] hospital [facility] Care Team Providers Care Principal Technologist Name Role Phone Dawit Ba Primary Care Physician [place] Sr., Dawit Aviles Primary Care Provider [place] Sr., Dawit Aviles Primary Care Provider GIVEN SR, DAWIT AVILES Primary Care Unavai lable HOUSE SR, DAWIT MADI Primary Care Unavai lable LILLY TONY Attending Unavailable TONY, LILLY Attending Unavailable HOUSE SR, DAWIT [facility] Care Unavai lable HOUSE SR, DAWIT [facility] Care UnavaLILLY Phan Attending Unavailable MD Jluis ROBLEDO Attending Unavailable House, Dawit Hong Referring Unavail able MD Jluis ROBLEDO Attending Unavailable [place] Sr., Dawit Aviles Primary Care Provider DO Dawit Ba Primary Care Provider DO Bebo Sims Attending Provider [phone] HOUSE, DR PRITCHETT Attending Unavailable GIVEN, DR PRITCHETT Consulting Unavailable GIVEN, DR PRITCHETT Primary Care Unavailable GIVEN, DR PRITCHETT Admitting Unavailable GIVEN, DR PRITCHETT Attending Unavailable HOUSE, DR PRITCHETT Consulting Unavailable GIVEN, DR PRITCHETT Primary Care Unavailable HOUSE, DR PRITCHETT Admitting Unavailable HOUSE, DR PRITCHETT Primary Care Unavailable VENKAT ., DR KING Attending Unavailable ROBLEDO ., DR KING Consulting Unavailable ROBLEDO ., DR KING Admitting Unavailable [facility] MIC[facility]ANO Jacinto Consulting Unavailable GIVEN, DR PRITCHETT Attending Unavailable HOUSE, DR PRITCHETT Primary Care Unavailable GIVEN, DR PRITCHETT Admitting Unavailable Ludin Blanchard MD Primary Care Provider Salima SET UP OPERATOR, Jenny Unavailable DO Dawit Ba Referring Provider CJ Brown Attending Provider Jenny Borrego Primary Care Provider Jenny Borrego Attending Provider House Sr., Dawit [...] SR, DAWIT Hong Primary Care Unavailable JENNY OBRREGO Attending Unavailable APLING, WALESKA Mccray Attending Unavailable [...] (1 source) Gluten Drug allergy (disorder) [facility] (1 source) Wheat preparation Drug Allergy [facility] (1 source) Misc-Food; Translations: [Misc-Food] Food allergy (disorder) [facility] Medications Current Medications Medication Drug [...] Start: 07-27-2021 take 1 capsule by [facility] twice daily gabapentin 300 mg Cap 300 [...] Comment on above: Take 1,000 mg by [facility] twice daily. methocarbamol 500 mg oral tablet [...] (Centrum Silver 50+Women) tablet Orally 0 Active gkgxonrc-xlb-eynh-FA- lutein (CENTRUM SILVER WOMEN) 8 mg iron-400 mcg-300 mcg tab (9 sources) krfolhhb-axx-vkd n-FA -lutein (CENTRUM SILVER WOMEN) 8 mg iron-400 mcg-300 mcg tab MV with Isk-Uhgbcrnm-Fcqlhs (CENTRUM SILVER) 0.4 mg-300 mcg- 250 mcg tab (9 sources) Start: 07-28-19 22 MV with Itw-Orfngkcu-Jfenim (CENTRUM SILVER) 0.4 mg-300 mcg- 250 mcg [...] Coronary arteriosclerosis; Translations: [Atherosclerotic heart disease of [place] coronary artery without angina pectoris] Onset: 0 [...] Range Facility Office Visiton 08-18-2023 Follow-up visit [id number] Sarah Ellis 1965 F Date Provider Department Center 08/18/2023 MALIK CLAUDIO Family History Problem Relation Age of Onset Diabetes Mother Heart attack Mother Other Mother Coronary artery disease Mother Diabetes Father Coronary artery disease Father Heart attack Maternal Grandfather Family Status - Relation Status Age at Mother Father Maternal Grandfather Level of Service:97204 ID OFFICE/OUTPATIENT ESTABLISHED MOD MDM 30 MIN Normal [facility] Complete Blood Count Auto Di ffon 07-07-2023 Basophils (Bld) [#/Vol] 0.1 10*3/uL Normal 0.0-0.2 [facility] Comment on above: Result Comment: PERF ORMED BY: [place] [address] PATHOLOGIST FOOD CONSULTANT YU ACOSTA M.D. Performed By: #### C BC, CMP, FE and TIBC, JAQUELINE, [id number] #### [address] #### METH, EPO #### [facility] , Basophils/100 WBC (Bld) 0.6 % Normal . [facility] Comment on above: Performed By: #### C BC, CMP, FE and TIBC, JAQUELINE, [id number] #### [address] #### METH, EPO #### [facility] , Eosinophils (Bld) [#/Vol] 0.2 10*3/uL Normal 0.0-0.45 [facility] Comment on above: Performed By: #### C BC, CMP, FE and TIBC, JAQUELINE, [id number] #### [address] #### METH, EPO #### [facility] , Eosinophils/100 WBC (Bld) 1.8 % Normal . [facility] Comment on above: Performed By: #### C BC, CMP, FE and TIBC, JAQUELINE, [id number] #### [address] #### METH, EPO #### [facility] , Erythrocyte distribution width (RBC) [Ratio] 14.8 % Normal 11.9-15.3 [facility] Comment on above: Performed By: #### C BC, CMP, FE and TIBC, JAQUELINE, [id number] #### [address] #### METH, EPO #### [facility] , Hematocrit (Bld) [Volume fraction] 43.6 % Normal 34.0-46.4 [facility] Comment on above: Performed By: #### C BC, CMP, FE and TIBC, JAQUELINE, [id number] #### [place] [address] [place] #### METH, EPO #### [facility] , Hemoglobin (Bld) [Mass/Vol] 14.4 g/dL Normal 11.8-15.4 [facility] Comment on above: Performed By: #### C BC, CMP, FE and TIBC, JAQUELINE, [id number] #### [address] #### METH, EPO #### [facility] , Lymphocytes (Bld) [#/Vol] 2.7 10*3/uL Normal 1.00-4.8 [facility] Comment on above: Performed By: #### C BC, CMP, FE and TIBC, JAQUELINE, [id number] #### [place] [address] [place] #### METH, EPO #### [facility] , Lymphocytes/100 WBC (Bld) 24.7 % Normal . [facility] Comment on above: Performed By: #### C BC, CMP, FE and TIBC, JAQULEINE, [id number] #### [place] [address] [place] #### METH, EPO #### [facility] , MCH (RBC) [Entitic mass] 30.5 pg Normal 24.7-34.3 [facility] Comment on above: Performed By: #### C BC, CMP, FE and TIBC, JAQUELINE, [id number] #### [place] [address] [place] #### METH, EPO #### [facility] , MCV (RBC) [Entitic vol] 92.1 fL Normal 80-100 [facility] Comment on above: Performed By: #### C BC, CMP, FE and TIBC, JAQUELINE, [id number] #### [address] #### METH, EPO #### [facility] , Mean Corpuscular HGB Conc 33.1 g/dL Normal 32.0-35.0 [facility] Comment on above: Performed By: #### C BC, CMP, FE and TIBC, JAQUELINE, [id number] #### [place] [address] [place] #### METH, EPO #### [facility] , Monocytes (Bld) [#/Vol] 0.6 10*3/uL Normal 0.0-0.8 [facility] Comment on above: Performed By: #### C BC, CMP, FE and TIBC, JAQUELINE, [id number] #### [place] [address] [place] #### METH, EPO #### [facility] , Monocytes/100 WBC (Bld) 5.3 % Normal . [facility] Comment on above: Performed By: #### C BC, CMP, FE and TIBC, JAQUELINE, [id number] #### [place] [address] [place] #### METH, EPO #### [facility] , Neutrophils (Bld) [#/Vol] 7.5 10*3/uL Normal 1.8-7.7 [facility] Comment on above: Performed By: #### C BC, CMP, FE and TIBC, JAQUELINE, [id number] #### [address] #### METH, EPO #### [facility] , Neutrophils/100 WBC (Bld) 67.6 % Normal . [facility] Comment on above: Performed By: #### C BC, CMP, FE and TIBC, JAQUELINE, [id number] #### [place] [address] [place] #### METH, EPO #### [facility] , NRBC% 0.1 /100{WBC} Normal 0-0.5 [facility] Comment on above: Performed By: #### C BC, CMP, FE and TIBC, JAQUELNIE, [id number] #### [address] #### METH, EPO #### [facility] , Platelet mean volume (Bld) [Entitic vol] 9.7 fL Normal 6.3-10.7 [facility] Comment on above: Performed By: #### C BC, CMP, FE and TIBC, JAQUELINE, [id number] #### [place] [address] [place] #### METH, EPO #### [facility] , Platelets (Bld) [#/Vol] 169 10*3/uL Normal 150-450 [facility] Comment on above: Performed By: #### C BC, CMP, FE and TIBC, JAQUELINE, [id number] #### [place] [address] [place] #### METH, EPO #### [facility] , RBC (Bld) [#/Vol] 4.73 10*6/uL Normal 3.60-5.00 [facility] Comment on above: Performed By: #### C BC, CMP, FE and TIBC, JAQUELINE, [id number] #### [place] [address] [place] #### METH, EPO #### [facility] , WBC (Bld) [#/Vol] 11.0 10*3/uL Normal 3.8-11.6 [facility] Comment on above: Performed By: #### C BC, CMP, FE and TIBC, JAQUELINE, [id number] #### [address] #### METH, EPO #### [facility] , Comprehensive Metabolic Pane mikki 07-07-2023 Albumin [Mass/Vol] 3.8 g/dL Normal 3.5-5.7 [facility] Comment on above: Performed By: #### C BC, CMP, FE and TIBC, JAQUELINE, [id number] #### [place] [address] [place] #### METH, EPO #### [facility] , Albumin/Globulin [Mass ratio] 1.4 {ratio} Normal [facility] Comment on above: Performed By: #### C BC, CMP, FE and TIBC, JAQUELINE, [id number] #### [place] [address] [place] #### METH, EPO #### [facility] , ALP [Catalytic activity/Vol] 167 U/L High 34-104 [facility] Comment on above: Performed By: #### C BC, CMP, FE and TIBC, JAQUELINE, [id number] #### [place] [address] [place] #### METH, EPO #### [facility] , ALT [Catalytic activity/Vol] 21 U/L Normal 7-52 [facility] Comment on above: Performed By: #### C BC, CMP, FE and TIBC, JAQUELINE, [id number] #### [place] [address] [place] #### METH, EPO #### [facility] , Anion gap [Moles/Vol] 13.5 mmol/L Normal 6.0-15.0 [facility] Comment on above: Performed By: #### C BC, CMP, FE and TIBC, JAQUELINE, [id number] #### [place] [address] [place] #### METH, EPO #### [facility] , AST [Catalytic activity/Vol] 15 U/L Normal 13-39 [facility] Comment on above: Performed By: #### C BC, CMP, FE and TIBC, JAQUELINE, [id number] #### [place] [address] [place] #### METH, EPO #### [facility] , Bilirubin [Mass/Vol] 0.4 mg/dL Normal 0.3-1.0 [facility] Comment on above: Performed By: #### C BC, CMP, FE and TIBC, JAQUELINE, [id number] #### [place] [address] [place] #### METH, EPO #### [facility] , Calcium [Mass/Vol] 8.6 mg/dL Normal 8.6-10.3 [facility] Comment on above: Performed By: #### C BC, CMP, FE and TIBC, JAQUELINE, [id number] #### [place] [address] [place] #### METH, EPO #### [facility] , Chloride [Moles/Vol] 102 mmol/L Normal 98-107 [facility] Comment on above: Performed By: #### C BC, CMP, FE and TIBC, JAQUELINE, [id number] #### [place] [address] [place] #### METH, EPO #### [facility] , CO2 [Moles/Vol] 26.8 mmol/L Normal 21.0-31.0 [facility] Comment on above: Performed By: #### C BC, CMP, FE and TIBC, JAQUELINE, [id number] #### [place] [address] [place] #### METH, EPO #### [facility] , Creatinine [Mass/Vol] 1.18 mg/dL Normal 0.60-1.20 [facility] Comment on above: Performed By: #### C BC, CMP, FE and TIBC, JAQUELINE, [id number] #### [place] [address] [place] #### METH, EPO #### [facility] , Creatinine Clr Calc Pharmacy 65.67 Normal [facility] Comment on above: Performed By: #### C BC, CMP, FE and TIBC, JAQUELINE, [id number] #### [place] [address] [place] #### METH, EPO #### [facility] , GFR/1.73 sq M.predicted MDRD (S/P/Bld) [Vol rate/Area] 53.873 mL/min/{1.73_m2} Normal [facility] Comment on above: Performed By: #### C BC, CMP, FE and TIBC, JAQUELINE, [id number] #### [place] [address] [place] #### METH, EPO #### [facility] , Globulin (S) [Mass/Vol] 2.8 g/dL Normal [facility] Comment on above: Performed By: #### C BC, CMP, FE and TIBC, JAQUELINE, [id number] #### [facility] [address] [place] [address] [place] #### METH, EPO #### [facility] , Glucose [Mass/Vol] 215 mg/dL High 70-100 [facility] Comment on above: Result Comment: [place] Glucose Reference Range is dependent on time and content of last meal. Glucose of more than 200 mg/dL in a nonstressed, ambulatory subject supports the diagnosis of Diabetes Mellitus. ADA recommended reference range Performed By: #### C BC, CMP, FE and TIBC, JAQUELINE, [id number] #### [place] [address] [place] #### METH, EPO #### [facility] , Potassium [Moles/Vol] 4.3 mmol/L Normal 3.5-5.1 [facility] Comment on above: Performed By: #### C BC, CMP, FE and TIBC, JAQUELINE, [id number] #### [place] [address] [place] #### METH, EPO #### [facility] , Protein [Mass/Vol] 6.6 g/dL Normal 6.4-8.9 [facility] Comment on above: Performed By: #### C BC, CMP, FE and TIBC, JAQUELINE, [id number] #### [place] [address] [place] #### METH, EPO #### [facility] , Sodium [Moles/Vol] 138 mmol/L Normal 136-145 [facility] Comment on above: Performed By: #### C BC, CMP, FE and TIBC, JAQUELINE, [id number] #### [place] [address] [place] #### METH, EPO #### [facility] , Urea nitrogen [Mass/Vol] 21 mg/dL Normal 7-25 [facility] Comment on above: Performed By: #### C BC, CMP, FE and TIBC, JAQUELINE, [id number] #### [place] [address] [place] #### METH, EPO #### [facility] , Erythropoetin (EPO), Serumon 07-07-2023 Erythropoetin (EPO), Serum 23.3 m[iU]/mL High 2.6-18.5 [facility] Comment on above: Result Comment: Andela UniCel DxI 800 Immunoassay System Values obtained with different assay methods or kits cannot be used interchangeably. Results cannot be interpreted as absolute evidence of the presence or absence of malignant disease. Performed at: [address] [id number] Osteopathic Neurologist: Hieu Willams PhD, Phone: [phone] PERFORMED BY: [place] [address] PATHOLOGIST FOOD CONSULTANT YU ACOSTA M.D. Performed By: #### C BC, CMP, FE and TIBC, JAQUELINE, [id number] #### [address] #### METH, EPO #### [facility] , Ferritinon 07-07-2023 Ferritin [Mass/Vol] 154.7 ng/mL Normal 11.0-306.8 [facility] Comment on above: Performed By: #### C BC, CMP, FE and TIBC, JAQUELINE, [id number] #### [address] #### METH, EPO #### [facility] , Iron and TIBC Profileon 06-21 % Iron Saturation 33.9 % Normal 20-50 [facility] Comment on above: Performed By: #### C BC, CMP, FE and TIBC, JAQUELINE, [id number] #### [address] #### METH, EPO #### [facility] , Iron [Mass/Vol] 84 ug/dL Normal 50-212 [facility] Comment on above: Performed By: #### C BC, CMP, FE and TIBC, JAQUELINE, [id number] #### [place] [address] [place] #### METH, EPO #### [facility] , Total Iron Binding Capacity 248 ug/dL Low 255-450 [facility] Comment on above: Performed By: #### C BC, CMP, FE and TIBC, JAQUELINE, [id number] #### [place] [address] [place] #### METH, EPO #### [facility] , Transferrin [Mass/Vol] 177 mg/dL Low 203-362 [facility] Comment on above: Performed By: #### C BC, CMP, FE and TIBC, JAQUELINE, [id number] #### [address] #### METH, EPO #### [facility] , Methylmalonic Acidon 024 Methylmalonic Acid 202 Normal 0-378 [facility] Comment on above: Result Comment: This test was developed and its performance characteristics determined by [facility]. It has not been cleared or approved by the Food and Drug Administration. Performed at: [address] [id number] Osteopathic Neurologist: Amara Coyne MD, Phone: [phone] Performed By: #### C BC, CMP, FE and TIBC, JAQUELINE, [id number] #### [place] [address] [place] #### METH, EPO #### [facility] , Vit. B12/Folate Profileon Cobalamin (Vitamin B12) [Mass/Vol] 493 pg/mL Normal 180-914 [facility] Comment on above: Performed By: #### C BC, CMP, FE and TIBC, JAQUELINE, [id number] #### [place] [address] [place] #### METH, EPO #### [facility] , Folate 30.0 ng/mL Normal >5.9 [facility] Comment on above: Result Comment: Sherry te reference range: >5.9 ng/ml The WHO technical consultation on folate and vitamin b12 deficiencies has determined that folate concentrations less than 4 ng/ml are considered deficient. PERFORMED BY: [facility] [address] [facility] [place] [address] PATHOLOGIST FOOD CONSULTANT YU ACOSTA M.D. Performed By: #### C BC, CMP, FE and TIBC, JAQUELINE, [id number] #### [facility] [address] [place] [address] [place] #### METH, EPO #### [facility] , CREATININE BLDon 05-17-2023 Creatinine [Mass/Vol] 1.19 mg/dL High 0.58-0.96 [facility] Comment on above: Order Comment: Speci men Type: BLOOD SPECIMEN Ordering Facility: [facility] Address: [address] [place] [address] Performed By: #### C RET1 #### [facility] CLIA [id number] [address] [place] [address] Creatinine and Glomerular filtration rate.predicted panel (S/P/Bld) 53 mL/min/1.73m??? Low >=60 [facility] Comment on above: Order Comment: Speci men Type: BLOOD SPECIMEN Ordering Facility: [facility] Address: [address] [place] [address] Result Comment: Terri mated Glomerular Filtration Rate [...] GFR. Performed By: #### C RET1 #### [facility] CLIA [id number] [address] [place] [address] CT KIDNEY WO/W IVCONon 05-16 CT KIDNEY WO/W IVCON * * *Final Report* * * DATE OF EXAM: May 17 2023 2:01PM [facility] 0546 - CT KIDNEY WO/W [...] or blastic osseous abnormality. Lower thorax: Unremarkable. Dental Amalgam Processor (topogram) images: No additional findings. IMPRESSION: 1. [...] any questions regarding this interpretation, please call [phone]. If you are unable to reach us at the number above, please feel free to contact [facility] at [phone]. [id number] Normal [facility] CNPNon 04-28-2023 CNPN Telephone (HEMTSA) ELMER ELLIS ([id number]) 1965 F Date Time Provider Department 04/28/23 [...] Date Reviewed: 10/15/2022 Reviewed by: Angie Mcclellan, ASSOCIATE PROFESSOR OF BIOSTATISTICS.PLATE CUTTER - Fully Assessed Reason for Visit: Orders [681] Primary Visit Diagnosis:Renal mass [N28.89] Order(s):CREATININE BLD [SQCRET] Order #: [id number] FUTURE Prescriptions as of 04/28/2023 - DULoxetine [...] by mouth twice daily. - MV with Yod-Poxffzem-Rxewoi (CENTRUM SILVER) 0.4 mg-300 mcg- 250 mcg tab Take by mouth. - insulin 75/25 lispro protamine/lispro units/mL (HUMALOG MIX 75-25,U-100,INSULN) 100 units/mL susp as directed. - HYDROcodone-acetaminophen (NORCO) 5-325 mg per tablet hydrocodone 5 mg-acetaminophen 325 mg tablet TAKE 1 TO 2 TABLETS BY MOUTH EVERY DAY AT BEDTIME NEEDED - xtdykoco-yzq-famk-FA-lutein (CENTRUM SILVER WOMEN) 8 mg iron-400 mcg-300 [...] (HCC) [D68.51] 04/19/2022 Coronary artery disease involving [place] heart *04/19/2022 Smoker [F17.200] 04/19/2022 Morbid obesity (HCC) [E66.01] 04/19/2022 Other specified disorders of kidney and ureter *04/19/2022 Encounter Status:Closed by ANGIE MCCLELLAN on 04/28/23 Normal [facility] A1C with Estimated Average G dwight 04-13-2023 Glucose [Mass/Vol] 189 mg/dL Normal [facility] Comment on above: Result Comment: PERF ORMED BY: [place] [address] PATHOLOGIST FOOD CONSULTANT YU ACOSTA M.D. Performed By: #### C BC, CMP, FE and TIBC, JAQUELINE, [id number] #### [address] #### METH, EPO #### [facility] , HbA1c (Bld) [Mass fraction] 8.2 % High 4.3-5.6 [facility] Comment on above: Result Comment: Incr eased risk for diabetes: 5.7 - 6.4 diabetes: >6.4 glycemic control for adults with diabetes: <7.0 Performed By: #### C BC, CMP, FE and TIBC, JAQUELINE, [id number] #### [address] #### METH, EPO #### [facility] , Alanine aminotransferase [En zymatic activity/volume] in Serum or PlasmaOrdered By: Lilly Christianson on 04-13-2023 ALT [Catalytic activity/Vol] 40 U/L Normal 7- [facility] Comment on above: Performed By: #### C BC, CMP, FE and TIBC, JAQUELINE, [id number] #### [facility] [address] [place] [address] [place] #### METH, EPO #### [facility] , Albumin [Mass/volume] in Ser um or Plasma by Bromocresol green (BCG) dye binding methoOrdered By: Lilly Christianson on 04-13-2023 Albumin BCG dye [Mass/Vol] 3.9 g/dL 3.5-5.7 [facility] Alkaline phosphatase [Enzyma tic activity/volume] in Serum or PlasmaOrdered By: Lilly Christianson on 04-13-2023 ALP [Catalytic activity/Vol] 182 U/L High 34-104 [facility] Comment on above: Performed By: #### C BC, CMP, FE and TIBC, JAQUELINE, [id number] #### [facility] [address] [place] [address] [place] #### METH, EPO #### [facility] , Aspartate aminotransferase [ Enzymatic activity/volume] in Serum or PlasmaOrdered By: Lilly Christianson on 04-13-2023 AST [Catalytic activity/Vol] 22 U/L Normal 13-39 [facility] Comment on above: Performed By: #### C BC, CMP, FE and TIBC, JAQUELINE, [id number] #### [facility] [address] [place] [address] [place] #### METH, EPO #### [facility] , Automated basophil %Ordered By: Lilly Christianson on 04-13-2023 Basophils/100 WBC (Bld) 0.9 % Normal . [facility] Comment on above: Performed By: #### C BC, CMP, FE and TIBC, JAQUELINE, [id number] #### [facility] [address] [place] [address] [place] #### METH, EPO #### [facility] , Automated basophil countOrde red By: Lilly Christianson on 04-13-2023 Basophils (Bld) [#/Vol] 0.1 10*3/uL Normal 0.0-0.2 [facility] Comment on above: Result Comment: PERF ORMED BY: [place] [address] PATHOLOGIST FOOD CONSULTANT YU ACOSTA M.D. Performed By: #### C BC, CMP, FE and TIBC, JAQUELINE, [id number] #### [address] #### METH, EPO #### [facility] , Automated blood monocyte cou ntOrdered By: Lilly Christianson on 04-13-2023 Monocytes (Bld) [#/Vol] 0.8 10*3/uL Normal 0.0-0.8 [facility] Comment on above: Performed By: #### C BC, CMP, FE and TIBC, JAQUELINE, [id number] #### [place] [address] [place] #### METH, EPO #### [facility] , Automated eosinophil %Ordere d By: Lilly Christianson on 04-13-2023 Eosinophils/100 WBC (Bld) 2.9 % Normal . [facility] Comment on above: Performed By: #### C BC, CMP, FE and TIBC, JAQUELINE, [id number] #### [place] [address] [place] #### METH, EPO #### [facility] , Automated eosinophil countOr dered By: Lilly Christianson on 04-13-2023 Eosinophils (Bld) [#/Vol] 0.3 10*3/uL Normal 0.0-0.45 [facility] Comment on above: Performed By: #### C BC, CMP, FE and TIBC, JAQUELINE, [id number] #### [place] [address] [place] #### METH, EPO #### [facility] , Automated monocyte %Ordered By: Lilly Christianson on 04-13-2023 Monocytes/100 WBC (Bld) 7.4 % Normal . [facility] Comment on above: Performed By: #### C BC, CMP, FE and TIBC, JAQUELINE, [id number] #### [address] #### METH, EPO #### [facility] , Automated neutrophil %Ordere d By: Lilly Christianson on 04-13-2023 Neutrophils/100 WBC (Bld) 65.0 % Normal . [facility] Comment on above: Performed By: #### C BC, CMP, FE and TIBC, JAQUELINE, [id number] #### [address] #### METH, EPO #### [facility] , Bilirubin.total [Mass/volume ] in Serum or PlasmaOrdered By: Lilly Christianson on 04-13-2023 Bilirubin [Mass/Vol] 0.3 mg/dL Normal 0.3-1.0 [facility] Comment on above: Performed By: #### C BC, CMP, FE and TIBC, JAQUELINE, [id number] #### [place] [address] [place] #### METH, EPO #### [facility] , Calcium [Mass/volume] in Ser um or PlasmaOrdered By: Lilly Christianson on 04-13-2023 Calcium [Mass/Vol] 8.9 mg/dL Normal 8.6-10.3 [facility] Comment on above: Performed By: #### C BC, CMP, FE and TIBC, JAQUELINE, [id number] #### [place] [address] [place] #### METH, EPO #### [facility] , Carbon dioxide, total [Moles /volume] in Serum or PlasmaOrdered By: Lilly Christianson on 04-13-2023 CO2 [Moles/Vol] 30.8 mmol/L Normal 21.0-31.0 [facility] Comment on above: Performed By: #### C BC, CMP, FE and TIBC, JAQUELINE, [id number] #### [place] [address] [place] #### METH, EPO #### [facility] , Chloride [Moles/volume] in S jigar or PlasmaOrdered By: Lilly Christianson on 04-13-2023 Chloride [Moles/Vol] 100 mmol/L Normal 98-107 [facility] Comment on above: Performed By: #### C BC, CMP, FE and TIBC, JAQUELINE, [id number] #### [address] #### METH, EPO #### [facility] , Complete Blood Count Auto Di ffon 04-13-2023 Mean Corpuscular HGB Conc 33.1 g/dL Normal 32.0-35.0 [facility] Comment on above: Performed By: #### C BC, CMP, FE and TIBC, JAQUELINE, [id number] #### [place] [address] [place] #### METH, EPO #### [facility] , NRBC% 0.1 /100{WBC} Normal 0-0.5 [facility] Comment on above: Performed By: #### C BC, CMP, FE and TIBC, JAQUELINE, [id number] #### [place] [address] [place] #### METH, EPO #### [facility] , Comprehensive Metabolic Pane mikki 04-13-2023 Albumin [Mass/Vol] 3.9 g/dL Normal 3.5-5.7 [facility] Comment on above: Performed By: #### C BC, CMP, FE and TIBC, JAQUELINE, [id number] #### [place] [address] [place] #### METH, EPO #### [facility] , Creatinine Clr Calc Pharmacy 58.71 Normal [facility] Comment on above: Performed By: #### C BC, CMP, FE and TIBC, JAQUELINE, [id number] #### [place] [address] [place] #### METH, EPO #### [facility] , GFR/1.73 sq M.predicted MDRD (S/P/Bld) [Vol rate/Area] 47.091 mL/min/{1.73_m2} Normal [facility] Comment on above: Performed By: #### C BC, CMP, FE and TIBC, JAQUELINE, [id number] #### [address] #### METH, EPO #### [facility] , Creatinine [Mass/volume] in Serum or PlasmaOrdered By: Lilly Christianson on 04-13-2023 Creatinine [Mass/Vol] 1.32 mg/dL High 0.60-1.20 [facility] Comment on above: Performed By: #### C BC, CMP, FE and TIBC, JAQUELINE, [id number] #### [place] [address] [place] #### METH, EPO #### [facility] , Erythrocyte distribution wid th [Ratio] by Automated countOrdered By: Lilly Christianson on 04-13-2023 Erythrocyte distribution width (RBC) [Ratio] 15.6 % High 11.9-15.3 [facility] Comment on above: Performed By: #### C BC, CMP, FE and TIBC, JAQUELINE, [id number] #### [place] [address] [place] #### METH, EPO #### [facility] , Erythrocytes [#/volume] in B lood by Automated countOrdered By: Lilly Christianson on 02-21-2024 RBC (Bld) [#/Vol] 4.91 10*6/uL Normal 3.60-5.00 [facility] Comment on above: Performed By: #### C BC, CMP, FE and TIBC, JAQUELINE, [id number] #### [address] #### METH, EPO #### [facility] , Erythropoetin (EPO), Serumon 04-13-2023 Erythropoetin (EPO), Serum 29.5 m[iU]/mL High 2.6-18.5 [facility] Comment on above: Result Comment: [employer]I 800 Immunoassay System Values obtained with different assay methods or kits cannot be used interchangeably. Results cannot be interpreted as absolute evidence of the presence or absence of malignant disease. Performed at: [address] [id number] Osteopathic Neurologist: Hieu Willams PhD, Phone: [phone] PERFORMED BY: [place] [address] PATHOLOGIST FOOD CONSULTANT YU ACOSTA M.D. Performed By: #### C BC, CMP, FE and TIBC, JAQUELINE, [id number] #### [address] #### METH, EPO #### [facility] , Ferritin [Mass/volume] in Se rum or PlasmaOrdered By: Lilly Christianson on 04-13-2023 Ferritin [Mass/Vol] 102.5 ng/mL Normal 11.0-306.8 [facility] Comment on above: Performed By: #### C BC, CMP, FE and TIBC, JAQUELINE, [id number] #### [place] [address] [place] #### METH, EPO #### [facility] , Folate [Mass/volume] in Seru m or PlasmaOrdered By: Lilly Christianson on 04-13-2023 Folate [Mass/Vol] 4.7 ng/mL >5.9 [facility] Comment on above: Folate reference ran ge: >5.9 ng/mlThe WHO technical consultation on folate and vitamin [id number] has determined that folate concentrations lessthan 4 ng/ml are considered deficient. Glucose [Mass/volume] in Ser um or PlasmaOrdered By: Lilly Christianson on 04-13-2023 Glucose [Mass/Vol] 242 mg/dL High 70-100 [facility] Comment on above: ADA recommended refe rence rangeRandom Glucose Reference Range is dependent on time and content of last meal. Glucose of more than 200 mg/dL in a nonstressed, ambulatory subject supports the diagnosis of Diabetes Mellitus. Result Comment: [place] om Glucose Reference Range is dependent on time and content of last meal. Glucose of more than 200 mg/dL in a nonstressed, ambulatory subject supports the diagnosis of Diabetes Mellitus. ADA recommended reference range Performed By: #### C BC, CMP, FE and TIBC, JAQUELINE, [id number] #### [place] [address] [place] #### METH, EPO #### [facility] , Hematocrit [Volume Fraction] of Blood by Automated countOrdered By: Lilly Christianson on 04-13-2023 Hematocrit (Bld) [Volume fraction] 44.7 % Normal 34.0-46.4 [facility] Comment on above: Performed By: #### C BC, CMP, FE and TIBC, JAQUELINE, [id number] #### [place] [address] [place] #### METH, EPO #### [facility] , Hemoglobin [Mass/volume] in BloodOrdered By: Lilly Christianson on 04-13-2023 Hemoglobin (Bld) [Mass/Vol] 14.8 g/dL Normal 11.8-15.4 [facility] Comment on above: Performed By: #### C BC, CMP, FE and TIBC, JAQUELINE, [id number] #### [place] [address] [place] #### METH, EPO #### [facility] , Iron [Mass/volume] in Serum or PlasmaOrdered By: Lilly Christianson on 04-13-2023 Iron [Mass/Vol] 129 ug/dL Normal 50-212 [facility] Comment on above: Performed By: #### C BC, CMP, FE and TIBC, JAQUELINE, [id number] #### [facility] [address] [place] [address] [place] #### METH, EPO #### [facility] , Iron and TIBC Profileon 03-25 % Iron Saturation 50.0 % Normal 20-50 [facility] Comment on above: Performed By: #### C BC, CMP, FE and TIBC, JAQUELINE, [id number] #### [facility] [address] [place] [address] [place] #### METH, EPO #### [facility] , Total Iron Binding Capacity 258 ug/dL Normal 255-450 [facility] Comment on above: Performed By: #### C BC, CMP, FE and TIBC, JAQUELINE, [id number] #### [facility] [address] [place] [address] [place] #### METH, EPO #### [facility] , Iron binding capacity [Mass/ volume] in Serum or PlasmaOrdered By: Lilly Christianson on 04-13-2023 Iron binding capacity [Mass/Vol] 258 ug/dL 255-450 [facility] Iron saturation [Mass Fracti on] in Serum or PlasmaOrdered By: Lilly Christianson on 04-13-2023 Iron saturation [Mass fraction] 50.0 % 20-50 [facility] Leukocytes [#/volume] correc nikki for nucleated erythrocytes in Blood by Automated counOrdered By: Lilly Christianson on 04-13-2023 WBC corrected for nucl RBC Auto (Bld) [#/Vol] 10.9 10*3/uL 3.8-11.6 [facility] Leukocytes [#/volume] in Blo od by Automated countOrdered By: Lilly Christianson on 04-13-2023 WBC (Bld) [#/Vol] 10.9 10*3/uL Normal 3.8-11.6 [facility] Comment on above: Performed By: #### C BC, CMP, FE and TIBC, JAQUELINE, [id number] #### [place] [address] [place] #### METH, EPO #### [facility] , Lymphocytes [#/volume] in Bl ood by Automated countOrdered By: Lilly Christianson on 04-13-2023 Lymphocytes (Bld) [#/Vol] 2.6 10*3/uL Normal 1.00-4.8 [facility] Comment on above: Performed By: #### C BC, CMP, FE and TIBC, JAQUELINE, [id number] #### [place] [address] [place] #### METH, EPO #### [facility] , Lymphocytes/100 leukocytes i n Blood by Automated countOrdered By: Lilly Christianson on 04-13-2023 Lymphocytes/100 WBC (Bld) 23.8 % Normal . [facility] Comment on above: Performed By: #### C BC, CMP, FE and TIBC, JAQUELINE, [id number] #### [place] [address] [place] #### METH, EPO #### [facility] , MCH [Entitic mass] by Automa nikki countOrdered By: Lilly Christianson on 04-13-2023 MCH (RBC) [Entitic mass] 30.1 pg Normal 24.7-34.3 [facility] Comment on above: Performed By: #### C BC, CMP, FE and TIBC, JAQUELINE, [id number] #### [place] [address] [place] #### METH, EPO #### [facility] , MCHC Auto (RBC) [Mass/Vol]Or dered By: Lilly Christianson on 04-13-2023 MCHC (RBC) [Mass/Vol] 33.1 g/dL 32.0-35.0 [facility] MCV [Entitic volume] by Auto mated countOrdered By: Lilly Christianson on 04-13-2023 MCV (RBC) [Entitic vol] 90.9 fL Normal 80-100 [facility] Comment on above: Performed By: #### C BC, CMP, FE and TIBC, JAQUELINE, [id number] #### [facility] [address] [place] [address] [place] #### METH, EPO #### [facility] , Methylmalonic Acidon 024 Methylmalonic Acid 321 Normal 0-378 [facility] Comment on above: Result Comment: This test was developed and its performance characteristics determined by [facility]. It has not been cleared or approved by the Food and Drug Administration. Performed at: [address] [id number] Osteopathic Neurologist: Amara Coyne MD, Phone: [phone] Performed By: #### C BC, CMP, FE and TIBC, JAQUELINE, [id number] #### [facility] [address] [place] [address] [place] #### METH, EPO #### [facility] , Neutrophils [#/volume] in Bl ood by Automated countOrdered By: Lilly Christianson on 04-13-2023 Neutrophils (Bld) [#/Vol] 7.1 10*3/uL Normal 1.8-7.7 [facility] Comment on above: Performed By: #### C BC, CMP, FE and TIBC, JAQUELINE, [id number] #### [facility] [address] [place] [address] [place] #### METH, EPO #### [facility] , No Panel InformationOrdered By: Lilly Christianson on 04-13-2023 Estimated GFR (CKD-EPI) 47.091 mL/Min [facility] Creatinine Clearance (Chem 58.71 [facility] Nucleated erythrocytes [Pres ence] in Blood by Automated countOrdered By: Lilly Christianson on 04-13-2023 Nucleated RBC Auto Ql (Bld) 0.1 /100{WBC} 0-0.5 [facility] Platelet mean volume [Entiti c volume] in Blood by Automated countOrdered By: Lilly Christianson on 04-13-2023 Platelet mean volume (Bld) [Entitic vol] 9.4 fL Normal 6.3-10.7 [facility] Comment on above: Performed By: #### C BC, CMP, FE and TIBC, JAQUELINE, [id number] #### [address] #### METH, EPO #### [facility] , Platelets [#/volume] in Bloo d by Automated countOrdered By: Lilly Christianson on 04-13-2023 Platelets (Bld) [#/Vol] 187 10*3/uL Normal 150-450 [facility] Comment on above: Performed By: #### C BC, CMP, FE and TIBC, JAQUELINE, [id number] #### [place] [address] [place] #### METH, EPO #### [facility] , Potassium [Moles/volume] in Serum or PlasmaOrdered By: Lilly Christianson on 04-13-2023 Potassium [Moles/Vol] 4.8 mmol/L Normal 3.5-5.1 [facility] Comment on above: Performed By: #### C BC, CMP, FE and TIBC, JAQUELINE, [id number] #### [place] [address] [place] #### METH, EPO #### [facility] , Protein [Mass/volume] in Ser um or PlasmaOrdered By: Lilly Christianson on 04-13-2023 Protein [Mass/Vol] 6.5 g/dL Normal 6.4-8.9 [facility] Comment on above: Performed By: #### C BC, CMP, FE and TIBC, JAQUELINE, [id number] #### [place] [address] [place] #### METH, EPO #### [facility] , Serum globulin measurement b y calculation (mass/volume)Ordered By: Lilly Christianson on 04-13-2023 Globulin (S) [Mass/Vol] 2.6 g/dL [facility] Comment on above: Performed By: #### C BC, CMP, FE and TIBC, JAQUELINE, [id number] #### [place] [address] [place] #### METH, EPO #### [facility] , Serum or plasma albumin/glob ulin mass ratioOrdered By: Lilly Christianson on 04-13-2023 Albumin/Globulin [Mass ratio] 1.5 {ratio} [facility] Comment on above: Performed By: #### C BC, CMP, FE and TIBC, JAQUELINE, [id number] #### [place] [address] [place] #### METH, EPO #### [facility] , Serum or plasma anion gap de terminationOrdered By: Lilly Christianson on 04-13-2023 Anion gap [Moles/Vol] 12.0 mmol/L Normal 6.0-15.0 [facility] Comment on above: Performed By: #### C BC, CMP, FE and TIBC, JAQUELINE, [id number] #### [place] [address] [place] #### METH, EPO #### [facility] , Sodium [Moles/volume] in Ser um or PlasmaOrdered By: Lilly Christianson on 04-13-2023 Sodium [Moles/Vol] 138 mmol/L Normal 136-145 [facility] Comment on above: Performed By: #### C BC, CMP, FE and TIBC, JAQUELINE, [id number] #### [place] [address] [place] #### METH, EPO #### [facility] , Transferrin [Mass/volume] in Serum or PlasmaOrdered By: Lilly Christianson on 04-13-2023 Transferrin [Mass/Vol] 184 mg/dL Low 203-362 [facility] Comment on above: Performed By: #### C BC, CMP, FE and TIBC, JAQUELINE, [id number] #### [facility] [address] [place] [address] [place] #### METH, EPO #### [facility] , Urea nitrogen [Mass/volume] in Serum or PlasmaOrdered By: Lilly Christianson on 04-13-2023 Urea nitrogen [Mass/Vol] 19 mg/dL Normal 7-25 [facility] Comment on above: Performed By: #### C BC, CMP, FE and TIBC, JAQUELINE, [id number] #### [facility] [address] [place] [address] #### METH, EPO #### [facility] , Vit. B12/Folate Profileon Folate 4.7 ng/mL Low >5.9 [facility] Comment on above: Result Comment: [place] reference range: >5.9 ng/ml The WHO technical consultation on folate and vitamin b12 deficiencies has determined that folate concentrations less than 4 ng/ml are considered deficient. PERFORMED BY: [place] [address] PATHOLOGIST FOOD CONSULTANT YU ACOSTA M.D. Performed By: #### C BC, CMP, FE and TIBC, JAQUELINE, [id number] #### [facility] [address] [place] [address] [place] #### METH, EPO #### [facility] , Vitamin B12 ser/plasOrdered By: Lilly Christianson on 04-13-2023 Cobalamin (Vitamin B12) [Mass/Vol] pg/mL High 180-914 [facility] Comment on above: Performed By: #### C BC, CMP, FE and TIBC, JAQUELINE, [id number] #### [address] #### METH, EPO #### [facility] , Complete Blood Count Auto Di ffon 01-17-2023 Basophils (Bld) [#/Vol] 0.1 10*3/uL Normal 0.0-0.2 [facility] Comment on above: Result Comment: PERF ORMED BY: [place] [address] PATHOLOGIST FOOD CONSULTANT YU ACOSTA M.D. Performed By: #### C BC, CMP, FE and TIBC, JAQUELINE, [id number] #### [address] #### METH, EPO #### [facility] , Basophils/100 WBC (Bld) 0.7 % Normal . [facility] Comment on above: Performed By: #### C BC, CMP, FE and TIBC, JAQUELINE, [id number] #### [address] #### METH, EPO #### [facility] , Eosinophils (Bld) [#/Vol] 0.2 10*3/uL Normal 0.0-0.45 [facility] Comment on above: Performed By: #### C BC, CMP, FE and TIBC, JAQUELINE, [id number] #### [place] [address] [place] #### METH, EPO #### [facility] , Eosinophils/100 WBC (Bld) 2.3 % Normal . [facility] Comment on above: Performed By: #### C BC, CMP, FE and TIBC, JAQUELINE, [id number] #### [address] #### METH, EPO #### [facility] , Erythrocyte distribution width (RBC) [Ratio] 14.8 % Normal 11.9-15.3 [facility] Comment on above: Performed By: #### C BC, CMP, FE and TIBC, JAQUELINE, [id number] #### [place] [address] [place] #### METH, EPO #### [facility] , Hematocrit (Bld) [Volume fraction] 42.8 % Normal 34.0-46.4 [facility] Comment on above: Performed By: #### C BC, CMP, FE and TIBC, JAQUELINE, [id number] #### [address] #### METH, EPO #### [facility] , Hemoglobin (Bld) [Mass/Vol] 14.2 g/dL Normal 11.8-15.4 [facility] Comment on above: Performed By: #### C BC, CMP, FE and TIBC, JAQUELINE, [id number] #### [address] #### METH, EPO #### [facility] , Lymphocytes (Bld) [#/Vol] 2.8 10*3/uL Normal 1.00-4.8 [facility] Comment on above: Performed By: #### C BC, CMP, FE and TIBC, JAQUELINE, [id number] #### [place] [address] [place] #### METH, EPO #### [facility] , Lymphocytes/100 WBC (Bld) 28.0 % Normal . [facility] Comment on above: Performed By: #### C BC, CMP, FE and TIBC, JAQUELINE, [id number] #### [place] [address] [place] #### METH, EPO #### [facility] , MCH (RBC) [Entitic mass] 30.3 pg Normal 24.7-34.3 [facility] Comment on above: Performed By: #### C BC, CMP, FE and TIBC, JAQUELINE, [id number] #### [place] [address] [place] #### METH, EPO #### [facility] , MCV (RBC) [Entitic vol] 90.9 fL Normal 80-100 [facility] Comment on above: Performed By: #### C BC, CMP, FE and TIBC, JAQUELINE, [id number] #### [place] [address] [place] #### METH, EPO #### [facility] , Mean Corpuscular HGB Conc 33.3 g/dL Normal 32.0-35.0 [facility] Comment on above: Performed By: #### C BC, CMP, FE and TIBC, JAQUELINE, [id number] #### [place] [address] [place] #### METH, EPO #### [facility] , Monocytes (Bld) [#/Vol] 0.8 10*3/uL Normal 0.0-0.8 [facility] Comment on above: Performed By: #### C BC, CMP, FE and TIBC, JAQUELINE, [id number] #### [place] [address] [place] #### METH, EPO #### [facility] , Monocytes/100 WBC (Bld) 8.3 % Normal . [facility] Comment on above: Performed By: #### C BC, CMP, FE and TIBC, JAQUELINE, [id number] #### [place] [address] [place] #### METH, EPO #### [facility] , Neutrophils (Bld) [#/Vol] 6.1 10*3/uL Normal 1.8-7.7 [facility] Comment on above: Performed By: #### C BC, CMP, FE and TIBC, JAQUELINE, [id number] #### [place] [address] [place] #### METH, EPO #### [facility] , Neutrophils/100 WBC (Bld) 60.7 % Normal . [facility] Comment on above: Performed By: #### C BC, CMP, FE and TIBC, JAQUELINE, [id number] #### [place] [address] [place] #### METH, EPO #### [facility] , NRBC% 0.1 /100{WBC} Normal 0-0.5 [facility] Comment on above: Performed By: #### C BC, CMP, FE and TIBC, JAQUELINE, [id number] #### [address] #### METH, EPO #### [facility] , Platelet mean volume (Bld) [Entitic vol] 9.0 fL Normal 6.3-10.7 [facility] Comment on above: Performed By: #### C BC, CMP, FE and TIBC, JAQUELINE, [id number] #### [place] [address] [place] #### METH, EPO #### [facility] , Platelets (Bld) [#/Vol] 194 10*3/uL Normal 150-450 [facility] Comment on above: Performed By: #### C BC, CMP, FE and TIBC, JAQUELINE, [id number] #### [place] [address] [place] #### METH, EPO #### [facility] , RBC (Bld) [#/Vol] 4.70 10*6/uL Normal 3.60-5.00 [facility] Comment on above: Performed By: #### C BC, CMP, FE and TIBC, JAQUELINE, [id number] #### [place] [address] [place] #### METH, EPO #### [facility] , WBC (Bld) [#/Vol] 10.0 10*3/uL Normal 3.8-11.6 [facility] Comment on above: Performed By: #### C BC, CMP, FE and TIBC, JAQUELINE, [id number] #### [place] [address] [place] #### METH, EPO #### [facility] , Comprehensive Metabolic Pane mikki 01-17-2023 Albumin [Mass/Vol] 3.9 g/dL Normal 3.5-5.7 [facility] Comment on above: Performed By: #### C BC, CMP, FE and TIBC, JAQUELINE, [id number] #### [address] #### METH, EPO #### [facility] , Albumin/Globulin [Mass ratio] 1.4 {ratio} Normal [facility] Comment on above: Performed By: #### C BC, CMP, FE and TIBC, JAQUELINE, [id number] #### [place] [address] [place] #### METH, EPO #### [facility] , ALP [Catalytic activity/Vol] 147 U/L High 34-104 [facility] Comment on above: Performed By: #### C BC, CMP, FE and TIBC, JAQUELINE, [id number] #### [place] [address] [place] #### METH, EPO #### [facility] , ALT [Catalytic activity/Vol] 19 U/L Normal 7-52 [facility] Comment on above: Performed By: #### C BC, CMP, FE and TIBC, JAQUELINE, [id number] #### [place] [address] [place] #### METH, EPO #### [facility] , Anion gap [Moles/Vol] 11.1 mmol/L Normal 6.0-15.0 [facility] Comment on above: Performed By: #### C BC, CMP, FE and TIBC, JAQUELINE, [id number] #### [address] #### METH, EPO #### [facility] , AST [Catalytic activity/Vol] 13 U/L Normal 13-39 [facility] Comment on above: Performed By: #### C BC, CMP, FE and TIBC, JAQUELINE, [id number] #### [place] [address] [place] #### METH, EPO #### [facility] , Bilirubin [Mass/Vol] 0.4 mg/dL Normal 0.3-1.0 [facility] Comment on above: Performed By: #### C BC, CMP, FE and TIBC, JAQUELINE, [id number] #### [place] [address] [place] #### METH, EPO #### [facility] , Calcium [Mass/Vol] 8.8 mg/dL Normal 8.6-10.3 [facility] Comment on above: Performed By: #### C BC, CMP, FE and TIBC, JAQUELINE, [id number] #### [place] [address] [place] #### METH, EPO #### [facility] , Chloride [Moles/Vol] 102 mmol/L Normal 98-107 [facility] Comment on above: Performed By: #### C BC, CMP, FE and TIBC, JAQUELINE, [id number] #### [place] [address] [place] #### METH, EPO #### [facility] , CO2 [Moles/Vol] 30.1 mmol/L Normal 21.0-31.0 [facility] Comment on above: Performed By: #### C BC, CMP, FE and TIBC, JAQUELINE, [id number] #### [place] [address] [place] #### METH, EPO #### [facility] , Creatinine [Mass/Vol] 1.10 mg/dL Normal 0.60-1.20 [facility] Comment on above: Performed By: #### C BC, CMP, FE and TIBC, JAQUELINE, [id number] #### [place] [address] [place] #### METH, EPO #### [facility] , Creatinine Clr Calc Pharmacy 70.45 Normal [facility] Comment on above: Performed By: #### C BC, CMP, FE and TIBC, JAQUELINE, [id number] #### [place] [address] [place] #### METH, EPO #### [facility] , GFR/1.73 sq M.predicted MDRD (S/P/Bld) [Vol rate/Area] 58.608 mL/min/{1.73_m2} Normal [facility] Comment on above: Performed By: #### C BC, CMP, FE and TIBC, JAQUELINE, [id number] #### [place] [address] [place] #### METH, EPO #### [facility] , Globulin (S) [Mass/Vol] 2.8 g/dL Normal [facility] Comment on above: Performed By: #### C BC, CMP, FE and TIBC, JAQUELINE, [id number] #### [place] [address] [place] #### METH, EPO #### [facility] , Glucose [Mass/Vol] 132 mg/dL High 70-100 [facility] Comment on above: Result Comment: [place] Glucose Reference Range is dependent on time and content of last meal. Glucose of more than 200 mg/dL in a nonstressed, ambulatory subject supports the diagnosis of Diabetes Mellitus. ADA recommended reference range Performed By: #### C BC, CMP, FE and TIBC, JAQUELINE, [id number] #### [place] [address] [place] #### METH, EPO #### [facility] , Potassium [Moles/Vol] 4.2 mmol/L Normal 3.5-5.1 [facility] Comment on above: Performed By: #### C BC, CMP, FE and TIBC, JAQUELINE, [id number] #### [address] #### METH, EPO #### [facility] , Protein [Mass/Vol] 6.7 g/dL Normal 6.4-8.9 [facility] Comment on above: Performed By: #### C BC, CMP, FE and TIBC, JAQUELINE, [id number] #### [place] [address] [place] #### METH, EPO #### [facility] , Sodium [Moles/Vol] 139 mmol/L Normal 136-145 [facility] Comment on above: Performed By: #### C BC, CMP, FE and TIBC, JAQUELINE, [id number] #### [address] #### METH, EPO #### [facility] , Urea nitrogen [Mass/Vol] 15 mg/dL Normal 7-25 [facility] Comment on above: Performed By: #### C BC, CMP, FE and TIBC, JAQUELINE, [id number] #### [place] [address] [place] #### METH, EPO #### [facility] , Erythropoetin (EPO), Serumon 01-17-2023 Erythropoetin (EPO), Serum 23.0 m[iU]/mL High 2.6-18.5 [facility] Comment on above: Result Comment: [employer] UniCel DxI 800 Immunoassay System Values obtained with different assay methods or kits cannot be used interchangeably. Results cannot be interpreted as absolute evidence of the presence or absence of malignant disease. Performed at: [address] [id number] Osteopathic Neurologist: Hieu Willams PhD, Phone: [phone] PERFORMED BY: [place] [address] PATHOLOGIST FOOD CONSULTANT YU ACOSTA M.D. Performed By: #### C BC, CMP, FE and TIBC, JAQUELINE, [id number] #### [address] #### METH, EPO #### [facility] , Ferritinon 01-17-2023 Ferritin [Mass/Vol] 68.6 ng/mL Normal 11.0-306.8 [facility] Comment on above: Performed By: #### C BC, CMP, FE and TIBC, JAQUELINE, [id number] #### [address] #### METH, EPO #### [facility] , Iron and TIBC Profileon 12-23 % Iron Saturation 45.9 % Normal 20-50 [facility] Comment on above: Performed By: #### C BC, CMP, FE and TIBC, JAQUELINE, [id number] #### [place] [address] [place] #### METH, EPO #### [facility] , Iron [Mass/Vol] 129 ug/dL Normal 50-212 [facility] Comment on above: Performed By: #### C BC, CMP, FE and TIBC, JAQUELINE, [id number] #### [place] [address] [place] #### METH, EPO #### [facility] , Total Iron Binding Capacity 281 ug/dL Normal 255-450 [facility] Comment on above: Performed By: #### C BC, CMP, FE and TIBC, JAQUELINE, [id number] #### [facility] [address] [place] [address] [place] #### METH, EPO #### [facility] , Transferrin [Mass/Vol] 201 mg/dL Low 203-362 [facility] Comment on above: Performed By: #### C BC, CMP, FE and TIBC, JAQUELINE, [id number] #### [facility] [address] [place] [address] [place] #### METH, EPO #### [facility] , Methylmalonic Acidon 023 Methylmalonic Acid 224 Normal 0-378 [facility] Comment on above: Result Comment: This test was developed and its performance characteristics determined by [facility]. It has not been cleared or approved by the Food and Drug Administration. Performed at: [address] [id number] Osteopathic Neurologist: Amara Coyne MD, Phone: [phone] Performed By: #### C BC, CMP, FE and TIBC, JAQUELINE, [id number] #### [place] [address] [place] #### METH, EPO #### [facility] , Serum or plasma erythropoiet in (EPO) measurement (units/volume)Ordered By: Lilly Christianson on 01-17-2023 Erythropoietin (EPO) Qn 23.0 mIU/mL 2.6-18.5 [facility] Comment on above: [employer] UniC el DxI 800 Immunoassay SystemValues obtained with different assay methods or kits cannotbe used interchangeably. Results cannot be interpreted asabsolute evidence of the presence or absence of malignantdisease.Performed at: [address] [id number] Director: Hieu Willams PhD, Phone: [phone] Serum or plasma methylmalona te measurement (moles/volume)Ordered By: Lilly Christianson on 01-17-2023 Methylmalonate [Moles/Vol] 224 nmol/L 0-378 [facility] Comment on above: This test was develo ped and its performance characteristicsdetermined by [facility]. It has not been cleared orapproved by the Food and Drug Administration.Performed at: [address] [id number] Director: Amara Coyne MD, Phone: [phone] Vit. B12/Folate Profileon Cobalamin (Vitamin B12) [Mass/Vol] 490 pg/mL Normal 180-914 [facility] Comment on above: Performed By: #### C BC, CMP, FE and TIBC, JAQUELINE, [id number] #### [address] #### METH, EPO #### [facility] , Folate 6.8 ng/mL Normal >5.9 [facility] Comment on above: Result Comment: Sherry te reference range: >5.9 ng/ml The WHO technical consultation on folate and vitamin b12 deficiencies has determined that folate concentrations less than 4 ng/ml are considered deficient. PERFORMED BY: [place] [address] PATHOLOGIST FOOD CONSULTANT YU ACOSTA M.D. Performed By: #### C BC, CMP, FE and TIBC, JAQUELINE, [id number] #### [address] #### METH, EPO #### [facility] , Complete Blood Count Auto Di ffon 10-22-2022 Basophils (Bld) [#/Vol] 0.1 10*3/uL Normal 0.0-0.2 [facility] Comment on above: Result Comment: PERF ORMED BY: [place] [address] PATHOLOGIST FOOD CONSULTANT YU ACOSTA M.D. Performed By: #### C BC, CMP, FE and TIBC, JAQUELINE, [id number] #### [address] [place] [address] [place] #### METH, EPO #### [facility] , Basophils/100 WBC (Bld) 0.7 % Normal . [facility] Comment on above: Performed By: #### C BC, CMP, FE and TIBC, JAQUELINE, [id number] #### [address] #### METH, EPO #### [facility] , Eosinophils (Bld) [#/Vol] 0.4 10*3/uL Normal 0.0-0.45 [facility] Comment on above: Performed By: #### C BC, CMP, FE and TIBC, JAQUELINE, [id number] #### [address] #### METH, EPO #### [facility] , Eosinophils/100 WBC (Bld) 3.4 % Normal . [facility] Comment on above: Performed By: #### C BC, CMP, FE and TIBC, JAQUELINE, [id number] #### [place] [address] [place] #### METH, EPO #### [facility] , Erythrocyte distribution width (RBC) [Ratio] 15.8 % High 11.9-15.3 [facility] Comment on above: Performed By: #### C BC, CMP, FE and TIBC, JAQUELINE, [id number] #### [place] [address] [place] #### METH, EPO #### [facility] , Hematocrit (Bld) [Volume fraction] 39.3 % Normal 34.0-46.4 [facility] Comment on above: Performed By: #### C BC, CMP, FE and TIBC, JAQUELINE, [id number] #### [place] [address] [place] #### METH, EPO #### [facility] , Hemoglobin (Bld) [Mass/Vol] 12.8 g/dL Normal 11.8-15.4 [facility] Comment on above: Performed By: #### C BC, CMP, FE and TIBC, JAQUELINE, [id number] #### [place] [address] [place] #### METH, EPO #### [facility] , Lymphocytes (Bld) [#/Vol] 3.2 10*3/uL Normal 1.00-4.8 [facility] Comment on above: Performed By: #### C BC, CMP, FE and TIBC, JAQUELINE, [id number] #### [place] [address] [place] #### METH, EPO #### [facility] , Lymphocytes/100 WBC (Bld) 25.9 % Normal . [facility] Comment on above: Performed By: #### C BC, CMP, FE and TIBC, JAQUELINE, [id number] #### [place] [address] [place] #### METH, EPO #### [facility] , MCH (RBC) [Entitic mass] 29.5 pg Normal 24.7-34.3 [facility] Comment on above: Performed By: #### C BC, CMP, FE and TIBC, JAQUELINE, [id number] #### [place] [address] [place] #### METH, EPO #### [facility] , MCV (RBC) [Entitic vol] 90.6 fL Normal 80-100 [facility] Comment on above: Performed By: #### C BC, CMP, FE and TIBC, JAQUELINE, [id number] #### [place] [address] [place] #### METH, EPO #### [facility] , Mean Corpuscular HGB Conc 32.6 g/dL Normal 32.0-35.0 [facility] Comment on above: Performed By: #### C BC, CMP, FE and TIBC, JAQUELINE, [id number] #### [address] #### METH, EPO #### [facility] , Monocytes (Bld) [#/Vol] 0.9 10*3/uL High 0.0-0.8 [facility] Comment on above: Performed By: #### C BC, CMP, FE and TIBC, JAQUELINE, [id number] #### [address] #### METH, EPO #### [facility] , Monocytes/100 WBC (Bld) 7.1 % Normal . [facility] Comment on above: Performed By: #### C BC, CMP, FE and TIBC, JAQUELINE, [id number] #### [place] [address] [place] #### METH, EPO #### [facility] , Neutrophils (Bld) [#/Vol] 7.9 10*3/uL High 1.8-7.7 [facility] Comment on above: Performed By: #### C BC, CMP, FE and TIBC, JAQUELINE, [id number] #### [address] #### METH, EPO #### [facility] , Neutrophils/100 WBC (Bld) 62.9 % Normal . [facility] Comment on above: Performed By: #### C BC, CMP, FE and TIBC, JAQUELINE, [id number] #### [place] [address] [place] #### METH, EPO #### [facility] , NRBC% 0.1 /100{WBC} Normal 0-0.5 [facility] Comment on above: Performed By: #### C BC, CMP, FE and TIBC, JAQUELINE, [id number] #### [place] [address] [place] #### METH, EPO #### [facility] , Platelet mean volume (Bld) [Entitic vol] 10.4 fL Normal 6.3-10.7 [facility] Comment on above: Performed By: #### C BC, CMP, FE and TIBC, JAQUELINE, [id number] #### [place] [address] [place] #### METH, EPO #### [facility] , Platelets (Bld) [#/Vol] 199 10*3/uL Normal 150-450 [facility] Comment on above: Performed By: #### C BC, CMP, FE and TIBC, JAQUELINE, [id number] #### [address] #### METH, EPO #### [facility] , RBC (Bld) [#/Vol] 4.34 10*6/uL Normal 3.60-5.00 [facility] Comment on above: Performed By: #### C BC, CMP, FE and TIBC, JAQUELINE, [id number] #### [address] #### METH, EPO #### [facility] , WBC (Bld) [#/Vol] 12.5 10*3/uL High 3.8-11.6 [facility] Comment on above: Performed By: #### C BC, CMP, FE and TIBC, JAQUELINE, [id number] #### [place] [address] [place] #### METH, EPO #### [facility] , Comprehensive Metabolic Pane mikki 10-22-2022 Albumin [Mass/Vol] 3.9 g/dL Normal 3.5-5.7 [facility] Comment on above: Performed By: #### C BC, CMP, FE and TIBC, JAQUELINE, [id number] #### [place] [address] [place] #### METH, EPO #### [facility] , Albumin/Globulin [Mass ratio] 1.5 {ratio} Normal [facility] Comment on above: Performed By: #### C BC, CMP, FE and TIBC, JAQUELINE, [id number] #### [facility] [address] [place] [address] [place] #### METH, EPO #### [facility] , ALP [Catalytic activity/Vol] 161 U/L High 34-104 [facility] Comment on above: Performed By: #### C BC, CMP, FE and TIBC, JAQUELINE, [id number] #### [place] [address] [place] #### METH, EPO #### [facility] , ALT [Catalytic activity/Vol] 16 U/L Normal 7-52 [facility] Comment on above: Performed By: #### C BC, CMP, FE and TIBC, JAQUELINE, [id number] #### [place] [address] [place] #### METH, EPO #### [facility] , Anion gap [Moles/Vol] 13.9 mmol/L Normal 6.0-15.0 [facility] Comment on above: Performed By: #### C BC, CMP, FE and TIBC, JAQUELINE, [id number] #### [place] [address] [place] #### METH, EPO #### [facility] , AST [Catalytic activity/Vol] 13 U/L Normal 13-39 [facility] Comment on above: Performed By: #### C BC, CMP, FE and TIBC, JAQUELINE, [id number] #### [place] [address] [place] #### METH, EPO #### [facility] , Bilirubin [Mass/Vol] 0.3 mg/dL Normal 0.3-1.0 [facility] Comment on above: Performed By: #### C BC, CMP, FE and TIBC, JAQUELINE, [id number] #### [place] [address] [place] #### METH, EPO #### [facility] , Calcium [Mass/Vol] 8.9 mg/dL Normal 8.6-10.3 [facility] Comment on above: Performed By: #### C BC, CMP, FE and TIBC, JAQUELINE, [id number] #### [place] [address] [place] #### METH, EPO #### [facility] , Chloride [Moles/Vol] 100 mmol/L Normal 98-107 [facility] Comment on above: Performed By: #### C BC, CMP, FE and TIBC, JAQUELINE, [id number] #### [place] [address] [place] #### METH, EPO #### [facility] , CO2 [Moles/Vol] 28.4 mmol/L Normal 21.0-31.0 [facility] Comment on above: Performed By: #### C BC, CMP, FE and TIBC, JAQUELINE, [id number] #### [place] [address] [place] #### METH, EPO #### [facility] , Creatinine [Mass/Vol] 1.40 mg/dL High 0.60-1.20 [facility] Comment on above: Performed By: #### C BC, CMP, FE and TIBC, JAQUELINE, [id number] #### [place] [address] [place] #### METH, EPO #### [facility] , Creatinine Clr Calc Pharmacy 56.02 Normal [facility] Comment on above: Performed By: #### C BC, CMP, FE and TIBC, JAQUELINE, [id number] #### [place] [address] [place] #### METH, EPO #### [facility] , GFR/1.73 sq M.predicted MDRD (S/P/Bld) [Vol rate/Area] 44.155 mL/min/{1.73_m2} Normal [facility] Comment on above: Performed By: #### C BC, CMP, FE and TIBC, JAQUELINE, [id number] #### [place] [address] [place] #### METH, EPO #### [facility] , Globulin (S) [Mass/Vol] 2.6 g/dL Normal [facility] Comment on above: Performed By: #### C BC, CMP, FE and TIBC, JAQUELINE, [id number] #### [place] [address] [place] #### METH, EPO #### [facility] , Glucose [Mass/Vol] 281 mg/dL High 70-100 [facility] Comment on above: Result Comment: [facility] Glucose Reference Range is dependent on time and content of last meal. Glucose of more than 200 mg/dL in a nonstressed, ambulatory subject supports the diagnosis of Diabetes Mellitus. ADA recommended reference range Performed By: #### C BC, CMP, FE and TIBC, JAQUELINE, [id number] #### [place] [address] [place] #### METH, EPO #### [facility] , Potassium [Moles/Vol] 4.3 mmol/L Normal 3.5-5.1 [facility] Comment on above: Performed By: #### C BC, CMP, FE and TIBC, JAQUELINE, [id number] #### [place] [address] [place] #### METH, EPO #### [facility] , Protein [Mass/Vol] 6.5 g/dL Normal 6.4-8.9 [facility] Comment on above: Performed By: #### C BC, CMP, FE and TIBC, JAQUELINE, [id number] #### [place] [address] [place] #### METH, EPO #### [facility] , Sodium [Moles/Vol] 138 mmol/L Normal 136-145 [facility] Comment on above: Performed By: #### C BC, CMP, FE and TIBC, JAQUELINE, [id number] #### [place] [address] [place] #### METH, EPO #### [facility] , Urea nitrogen [Mass/Vol] 17 mg/dL Normal 7-25 [facility] Comment on above: Performed By: #### C BC, CMP, FE and TIBC, JAQUELINE, [id number] #### [place] [address] [place] #### METH, EPO #### [facility] , Erythropoetin (EPO), Serumon 10-22-2022 Erythropoetin (EPO), Serum 31.7 m[iU]/mL High 2.6-18.5 [facility] Comment on above: Result Comment: [employer] UniCel DxI 800 Immunoassay System Values obtained with different assay methods or kits cannot be used interchangeably. Results cannot be interpreted as absolute evidence of the presence or absence of malignant disease. Performed at: [facility] [id number] Osteopathic Neurologist: Hieu Willams PhD, Phone: [phone] PERFORMED BY: [place] [address] PATHOLOGIST FOOD CONSULTANT YU ACOSTA M.D. Performed By: #### C BC, CMP, FE and TIBC, JAQUELINE, [id number] #### [place] [address] [place] #### METH, EPO #### [facility] , Ferritinon 10-22-2022 Ferritin [Mass/Vol] 82.9 ng/mL Normal 11.0-306.8 [facility] Comment on above: Performed By: #### C BC, CMP, FE and TIBC, JAQUELINE, [id number] #### [address] #### METH, EPO #### [facility] , Iron and TIBC Profileon % Iron Saturation 34.3 % Normal 20-50 [facility] Comment on above: Performed By: #### C BC, CMP, FE and TIBC, JAQUELINE, [id number] #### [place] [address] [place] #### METH, EPO #### [facility] , Iron [Mass/Vol] 94 ug/dL Normal 50-212 [facility] Comment on above: Performed By: #### C BC, CMP, FE and TIBC, JAQUELINE, [id number] #### [place] [address] [place] #### METH, EPO #### [facility] , Total Iron Binding Capacity 274 ug/dL Normal 255-450 [facility] Comment on above: Performed By: #### C BC, CMP, FE and TIBC, JAQUELINE, [id number] #### [place] [address] [place] #### METH, EPO #### [facility] , Transferrin [Mass/Vol] 196 mg/dL Low 203-362 [facility] Comment on above: Performed By: #### C BC, CMP, FE and TIBC, JAQUELINE, [id number] #### [place] [address] [place] #### METH, EPO #### [facility] , Methylmalonic Acidon 023 Methylmalonic Acid 270 Normal 0-378 [facility] Comment on above: Result Comment: This test was developed and its performance characteristics determined by [facility]. It has not been cleared or approved by the Food and Drug Administration. Performed at: [address] [id number] Osteopathic Neurologist: Amara Coyne MD, Phone: [phone] Performed By: #### C BC, CMP, FE and TIBC, JAQUELINE, [id number] #### [place] [address] [place] #### METH, EPO #### [facility] , Vit. B12/Folate Profileon Cobalamin (Vitamin B12) [Mass/Vol] pg/mL High 180-914 [facility] Comment on above: Performed By: #### C BC, CMP, FE and TIBC, JAQUELINE, [id number] #### [address] #### METH, EPO #### [facility] , Folate 5.7 ng/mL Low >5.9 [facility] Comment on above: Result Comment: Sherry te reference range: >5.9 ng/ml The WHO technical consultation on folate and vitamin b12 deficiencies has determined that folate concentrations less than 4 ng/ml are considered deficient. PERFORMED BY: [place] [address] PATHOLOGIST FOOD CONSULTANT YU ACOSTA M.D. Performed By: #### C BC, CMP, FE and TIBC, JAQUELINE, [id number] #### [address] #### METH, EPO #### [facility] , CREATININE BLDon 10-07-2022 Creatinine [Mass/Vol] 1.06 mg/dL High 0.58-0.96 [facility] Comment on above: Order Comment: Speci men Type: BLOOD SPECIMEN Ordering Facility: [facility] Address: [address] [place] [address] [place] [address] Performed By: #### C RET1 #### [facility] CLIA [id number] [address] [place] [address] Creatinine and Glomerular filtration rate.predicted panel (S/P/Bld) 62 mL/min/1.73m??? Normal >=60 [facility] Comment on above: Order Comment: Speci men Type: BLOOD SPECIMEN Ordering Facility: [facility] Address: [address] [place] [address] [place] [address] Result Comment: Terri mated Glomerular Filtration Rate [...] GFR. Performed By: #### C RET1 #### [facility] CLIA [id number] [address] [place] [address] KIDNEY WO/W IVCONon 10-07 CT KIDNEY WO/W IVCON * * *Final Report* * * DATE OF EXAM: Oct 07 2022 11:27AM [facility] 0546 - CT KIDNEY WO/W [...] No pulmonary parenchymal nodule or pleural effusion. Dental [employer] (topogram) images: No additional findings. IMPRESSION: 3.3 [...] any questions regarding this interpretation, please call [phone]. If you are unable to reach us at the number above, please feel free to contact [facility] at [phone]. [id number] Normal [facility] C. DIFF PCRon 06-18-2022 C. DIFFICILE PCR Negative Normal NEGATIVE [facility] Comment on above: Performed By: #### [facility] #### [facility] [address] [address] [address] Naz Crouch Albumin [Mass/volume] in Ser um or PlasmaOrdered By: Joanne Brown on 06-16-2022 Albumin [Mass/Vol] 3.3 g/dL 2.9-4.4 [facility] IgA [Mass/volume] in Serum o r PlasmaOrdered By: Joanne Brown on 06-16-2022 IgA [Mass/Vol] 224 mg/dL 87-352 [facility] IgG [Mass/volume] in Serum o r PlasmaOrdered By: Joanne Brown on 06-16-2022 IgG [Mass/Vol] 1023 mg/dL [phone] [facility] IgM [Mass/volume] in Serum o r PlasmaOrdered By: Joanne Brown on 06-16-2022 IgM [Mass/Vol] 50 mg/dL 26-217 [facility] Comment on above: Performed at: [facility] [employer] [place] [id number] Director: Hieu Willams PhD, Phone: [phone] Immunoglobulin light chains. kappa.free [Mass/volume] in SerumOrdered By: Joanne Brown on 06-16-2022 Immunoglobulin light chains.kappa.free (S) [Mass/Vol] 47.9 mg/L 3.3-19.4 [facility] Immunoglobulin light chains. kappa.free/Immunoglobulin light chains.lambda.free [MassOrdered By: Joanne Brown on 06-16-2022 Immunoglobulin light chains.kappa.free/Immu noglobulin light chains.lambda.free (S) [Mass ratio] 1.89 0.26-1.65 [facility] Immunoglobulin light chains. lambda.free [Mass/volume] in Serum or PlasmaOrdered By: Joanne Brown on 06-16-2022 Immunoglobulin light chains.lambda.free [Mass/Vol] 25.3 mg/L 5.7-26.3 [facility] No Panel InformationOrdered By: Joanne Brown on 06-16-2022 Protein Electrophoresis M-Anam Not observed g/dL Not Observed [facility] Protein Electrophoresis Note See comment . [facility] Comment on above: Protein electrophore sis scan will follow via computer,mail, or babcock tester delivery.Performed at: [facility] [id number] Director: Hieu Willams PhD, Phone: [phone] Serum Immunofixation See comment . [facility] Comment on above: No monoclonality det ected. Protein [Mass/volume] in Ser um or PlasmaOrdered By: Joanne Brown on 06-16-2022 Protein [Mass/Vol] 6.4 g/dL 6.0-8.5 [facility] Serum globulin measurement ( mass/volume)Ordered By: Joanne Brown on 06-16-2022 Globulin (S) [Mass/Vol] 3.1 g/dL 2.2-3.9 [facility] Serum or plasma albumin/glob ulin mass ratioOrdered By: Joanne Brown on 06-16-2022 Albumin/Globulin [Mass ratio] 1.1 {ratio} 0.7-1.7 [facility] Serum or plasma alpha 1 glob ulin measurement by electrophoresis (mass/volume)Ordered By: Joanne Brown on 06-16-2022 Alpha 1 globulin Elph [Mass/Vol] 0.3 g/dL 0.0-0.4 [facility] Serum or plasma alpha 2 glob ulin measurement by electrophoresis (mass/volume)Ordered By: Joanne Brown on 06-16-2022 Alpha 2 globulin Elph [Mass/Vol] 1.0 g/dL 0.4-1.0 [facility] Serum or plasma beta globuli n measurement by electrophoresis (mass/volume)Ordered By: Joanne Brown on 06-16-2022 Beta globulin Elph [Mass/Vol] 1.0 g/dL 0.7-1.3 [facility] Serum or plasma gamma globul in measurement by electrophoresis (mass/volume)Ordered By: Joanne Brown on 06-16-2022 Gamma globulin Elph [Mass/Vol] 0.9 g/dL 0.4-1.8 [facility] Glucose Glucometer (BldC) [M ass/Vol]Ordered By: Bebo Sims on 06-02-2022 Glucose [Mass/Vol] 118 mg/dL [facility] Comment on above: Random Glucose Refer ence Range is dependent on time and content of last meal. Glucose of more than 200 mg/dL in a nonstressed, ambulatory subject supports the diagnosis of Diabetes Mellitus. CBC AUTO DIFFon 04-22-2022 BASO # 0.1 103/ul Normal 0.0-0.1 [facility] Comment on above: Performed By: #### C BC #### [facility] [address] [address] [address] Naz Crouch Basophils/100 WBC (Bld) 0.8 % Normal 0.2-2.0 [facility] Comment on above: Performed By: #### C BC #### [facility] [address] [address] [address] Naz Crouch EO # 0.3 103/ul Normal 0.0-0.7 [facility] Comment on above: Performed By: #### C BC #### [facility] [address] [address] [address] Naz Crouch Eosinophils/100 WBC (Bld) 2.2 % Normal 0.9-7.0 [facility] Comment on above: Performed By: #### C BC #### [facility] [address] [address] [address] Naz Crouch Erythrocyte distribution width (RBC) [Ratio] 20.0 % Critically high 11.0-15.0 [facility] Comment on above: Performed By: #### C BC #### [facility] [address] [place] [address] Dr. Naz Crouch Hematocrit (Bld) [Volume fraction] 27.6 % Critically low 36.0-48.0 [facility] Comment on above: Performed By: #### C BC #### [facility] [address] [address] [address] Naz Crouch Hemoglobin (Bld) [Mass/Vol] 7.3 g/dL Critically low 12.0-16.0 [facility] Comment on above: Performed By: #### C BC #### [facility] [address] [address] [address] Naz Crouch IG # 0.09 10e3/ul Critically high 0.00-0.03 [facility] Comment on above: Performed By: #### C BC #### [facility] [address] [address] [address] Nza Crouch IG % 0.7 % Critically high 0.0-0.5 [facility] Comment on above: Performed By: #### C BC #### [facility] [address] [place] [address] Dr. Naz Crouch LYMPH # 2.3 103/ul Normal 1.2-3.8 [facility] Comment on above: Performed By: #### C BC #### [facility] [address] [place] [address] Dr. Naz Crouch Lymphocytes/100 WBC (Bld) 17.8 % Critically low 20.5-60.0 [facility] Comment on above: Performed By: #### C BC #### [facility] [address] [place] [address] Dr. Naz Crouch MANUAL DIFF REQ NO Normal [facility] Comment on above: Performed By: #### C BC #### [facility] [address] [place] [address] Dr. Naz Crouch MCH (RBC) [Entitic mass] 18.3 pg Critically low 26.7-34.0 [facility] Comment on above: Performed By: #### C BC #### [facility] [address] [place] [address] Dr. Nza Crouch MCHC (RBC) [Mass/Vol] 26.4 g/dL Critically low 29.9-35.2 [facility] Comment on above: Performed By: #### C BC #### [facility] [address] [place] [address] Dr. Naz Crouch MCV (RBC) [Entitic vol] 69.2 fL Critically low 81.0-99.0 [facility] Comment on above: Performed By: #### C BC #### [facility] [address] [place] [address] Dr. Naz Crouch MONO # 0.8 103/ul Normal 0.3-0.8 [facility] Comment on above: Performed By: #### C BC #### [facility] [address] [place] [address] Dr. Naz Crouch Monocytes/100 WBC (Bld) 6.5 % Normal 1.7-12.0 [facility] Comment on above: Performed By: #### C BC #### [facility] [address] [place] [address] Dr. Naz Crouch NEUT # 9.3 103/ul Critically high 1.4-6.5 [facility] Comment on above: Performed By: #### C BC #### [facility] [address] [place] [address] Dr. Naz Crouch Neutrophils/100 WBC (Bld) 72.0 % Normal 43.0-75.0 [facility] Comment on above: Performed By: #### C BC #### [facility] [address] [place] [address] Dr. Naz Crouch Platelet mean volume (Bld) [Entitic vol] 9.4 fL Critically low 9.5-13.5 [facility] Comment on above: Performed By: #### C BC #### [facility] [address] [place] [address] Dr. Naz Crouch PLT 318 103/ul Normal 150-450 [facility] Comment on above: Performed By: #### C BC #### [facility] [address] [place] [address] Dr. Naz Crouch RBC 3.99 106/ul Critically low 4.20-5.40 [facility] Comment on above: Performed By: #### C BC #### [facility] [address] [place] [address] Dr. Naz Crouch WBC 13.0 103/ul Critically high 4.0-11.0 [facility] Comment on above: Performed By: #### C BC #### [facility] [address] [place] [address] Dr. Naz Crouch GLYCOHEMOGLOBIN A1Con 2022 ADA RECOMMENDATION SEE BELOW Normal [facility] Comment on above: Result Comment: ADA RECOMMENDED LIMIT 4.0 - 6.0 ADA THERAPEUTIC TARGET < 7.0 ACTION SUGGESTED > 7.0 Performed By: #### A 1C #### [facility] [address] [place] [address] Dr. Naz Crouch Glucose [Mass/Vol] 192 mg/dL Normal [facility] Comment on above: Performed By: #### A 1C #### [facility] [address] [place] [address] Dr. Naz Crouch HbA1c (Bld) [Mass fraction] 8.3 % Critically high 4.5-6.2 [facility] Comment on above: Performed By: #### A 1C #### [facility] [address] [place] [address] Dr. Naz Crouch MICROALBUMIN, RAND URon - mALB 4.7 mg/L Normal <=30.0 [facility] Comment on above: Performed By: #### M ALBR #### [facility] [address] [place] [address] Dr. Naz Crouch PROF 14(COMP METB)on 023 Albumin [Mass/Vol] 3.1 g/dL Critically low 3.4-5.0 [facility] Comment on above: Performed By: #### C MP, T4, TSH #### [facility] [address] [place] [address] Dr. Naz Crouch Albumin/Globulin [Mass ratio] 0.8 {ratio} Normal [facility] Comment on above: Performed By: #### C MP, T4, TSH #### [facility] [address] [place] [address] Dr. Naz Crouch ALP [Catalytic activity/Vol] 176 U/L Critically high 46-116 [facility] Comment on above: Performed By: #### C MP, T4, TSH #### [facility] [address] [place] [address] Dr. Naz Crouch ALT [Catalytic activity/Vol] 18 U/L Normal 14-59 [facility] Comment on above: Performed By: #### C MP, T4, TSH #### [facility] [address] [address] [address] Naz Crouch Anion gap [Moles/Vol] 12.9 mmol/L Normal [facility] Comment on above: Performed By: #### C MP, T4, TSH #### [facility] [address] [address] [address] Naz Crouch AST [Catalytic activity/Vol] 12 U/L Critically low 15-37 [facility] Comment on above: Performed By: #### C MP, T4, TSH #### [facility] [address] [address] [address] Naz Crouch Bilirubin [Mass/Vol] 0.2 mg/dL Normal 0.2-1.0 [facility] Comment on above: Performed By: #### C MP, T4, TSH #### [facility] [address] [place] [address] Dr. Naz Crouch Calcium [Mass/Vol] 8.8 mg/dL Normal 8.5-10.1 [facility] Comment on above: Performed By: #### C MP, T4, TSH #### [facility] [address] [place] [address] Dr. Naz Crouch Chloride [Moles/Vol] 104 mmol/L Normal 98-107 [facility] Comment on above: Performed By: #### C MP, T4, TSH #### [facility] [address] [place] [address] Dr. Naz Crouch CO2 [Moles/Vol] 27.5 mmol/L Normal 21.0-32.0 [facility] Comment on above: Performed By: #### C MP, T4, TSH #### [facility] [address] [place] [address] Dr. Naz Crouch Creatinine [Mass/Vol] 0.89 mg/dL Normal 0.55-1.02 [facility] Comment on above: Performed By: #### C MP, T4, TSH #### [facility] [address] [place] [address] Dr. Naz Crouch EGFR-AF SAUDI ARABIAN >60 Normal >=60 [facility] Comment on above: Performed By: #### C MP, T4, TSH #### [facility] [address] [place] [address] Dr. Naz Crouch EGFR-NON AF SAUDI ARABIAN >60 Normal >=60 [facility] Comment on above: Performed By: #### C MP, T4, TSH #### [facility] [address] [place] [address] Dr. Naz Crouch Globulin (S) [Mass/Vol] 3.9 g/dL Normal [facility] Comment on above: Performed By: #### C MP, T4, TSH #### [facility] [address] [place] [address] Dr. Naz Crouch Glucose [Mass/Vol] 206 mg/dL Critically high 74-106 T [facility] Comment on above: Performed By: #### C MP, T4, TSH #### [facility] [address] [place] [address] Dr. Naz Crouch Potassium [Moles/Vol] 4.4 mmol/L Normal 3.5-5.1 [facility] Comment on above: Performed By: #### C MP, T4, TSH #### [facility] [address] [place] [address] Dr. Naz Crouch Protein [Mass/Vol] 7.0 g/dL Normal 6.4-8.2 [facility] Comment on above: Performed By: #### C MP, T4, TSH #### [facility] [address] [place] [address] Dr. Naz Crouch Sodium [Moles/Vol] 140 mmol/L Normal 136-145 [facility] Comment on above: Performed By: #### C MP, T4, TSH #### [facility] [address] [place] [address] Dr. Naz Crouch Urea nitrogen [Mass/Vol] 15.0 mg/dL Normal 7.0-18.0 [facility] Comment on above: Performed By: #### C MP, T4, TSH #### [facility] [address] [place], [place] [address] Dr. Naz Crouch Urea nitrogen/Creatinine [Mass ratio] 16.9 mg/mg Normal [facility] Comment on above: Performed By: #### C MP, T4, TSH #### [facility] [address] [address] [address] Naz Crouch T4on 04-22-2022 T4 [Mass/Vol] 4.60 ug/dL Critically low 4.80-13.90 [facility] Comment on above: Performed By: #### C MP, T4, TSH #### [facility] [address] [address] [address] Naz Crouch TSHon 04-22-2022 TSH 2.208 uIU/mL Normal 0.358-3.74 0 [facility] Comment on above: Performed By: #### C MP, T4, TSH #### [facility] [address] [address] [address] KIDNEY WO/W IVCONon 04-05 [facility] XR CHEST 2V FRONTAL/LATon [facility] Ambulatory Visit Summaryon 0 03-05-2022 Ambulatory Visit Summary ELMER ELLIS :1965 Visit Date:03/05/2022 Ambulatory Visit Instructions Your Diagnosis Right renal mass Incomplete bladder emptying Tests Performed Urnls Dip Stick Auto w/o Microscopy POC 68573 Your Care Team Attending Physician - Jluis [...] VENKAT SAWYER, RAPHAEL Jimenez When: Where: [address] [place] [address]- Someone Will Contact You Regarding These Appointments [...] Urnls Dip Stick Auto w/o Microscopy POC 33028 (03/05/2022) Bilirubin Urine Dipstick - 1+ Small Blood Urine Dipstick - Negative Glucose Urine Dipstick - 2+ 500 mg/dl Ketones Urine Dipstick - Trace - 5 mg/dl Leukocytes Urine Dipstick - Negative Nitrite Urine Dipstick - Negative Protein Urine Dipstick - 2+ (100 mg/dl) Specific [place] Urine Dipstick - >=1.030 Urine Appearance Urine [...] on the (more content not included)... Normal [facility] Patient Educationon 03-05-19 23 Patient [...] gives to you. In general: ? Take yiqn-acl-fvhszse and prescription medicines only as told by [...] 09/04/2014 Document Revised: 03/16/2018 Document Reviewed: 03/16/2018 [email or web address] Patient Education ? 2019 [employer]. [facility] Urology Office/Clinic Noteon 03-05-2022 Urology Office/Clinic Note [...] placed to [facility]. Pt. understands her use of tobacco increases [...] Contact Information VENKAT SAWYER, Jluis Jacinto, URL [address] [place] [address]- Additional Instructions: Referral for renal mass Patient [...] 11/21/2020 Recorde (more content not included)... Normal [facility] Comment on above: Result Comment: Elec tronically Signed By: Jluis ROBLEDO MD\.br\Date and Time Signed: 03/05/22 11:17 EST\.br\Electronically Co-Signed By: Sophy Simmons\.br\Date and Time Co-Signed: 03/05/22 11:10 EST\.br\Electronically Co-Signed By: Sophy Simmons\.br\Date and Time Co-Signed: 03/05/22 11:11 EST Lab Reportson 02-05-2022 Lab Reports [id number]#1.00CD:127 Normal [facility] RAD - CT Reporton 02-05-2022 RAD - CT Report [id number]#1.00CD:127 Normal [facility] RAD - CT Report [id number]#1.00CD:127 Normal [facility] CT ABD/PELV W CONon 02-03-20 [...] by: MICHOACANO MARTIN Date: 2022-02-02 08:28 Normal [facility] Reminderson 02-02-2022 Reminders - From: Tahmina Hanson To: EU - Recalls Venkat; Sent: 07/29/2021 07:40:04 EDT Show up: 12/22/2021 07:40:00 EDT Subject: Ct scan Reminder/Recall Pt needs Ct scan ABD/Pelvis with contrast prior to Dec appt will send order to [facility] never received her order will re fax to [facility] nothing at [facility] yet and unable to get ahold of CS pt will call to schedule she doesnt have insurance. CT done 02/01/2022 at [facility] will drop results into pt's chart has f/u 03/01/2022 Normal [facility] CREATININEon 02-01-2022 Creatinine [Mass/Vol] 1.00 mg/dL Normal 0.55-1.02 [facility] Comment on above: Performed By: #### C SERGEY #### [facility] [address] [place] [address] Dr. aNz Crouch EGFR-AF SAUDI ARABIAN >60 Normal >=60 [facility] Comment on above: Performed By: #### C SERGEY #### [facility] [address] [address] [address] Naz Crouch EGFR-NON AF SAUDI ARABIAN 57 mL/min/1.73m2 Critically low >=60 [facility] Comment on above: Performed By: #### C SERGEY #### [facility] [address] [place] [address] Dr. Naz Crouch Physician Orderon 01-11-2022 Physician Order [id number]#1.00CD:127 Normal [facility] CNOVon 11-09-2021 CNOV Office Visit (AGPOB1 ) ELMER ELLIS ([id number]) 1965 F Date Time Provider Department 9/19/22 [...] mg by mouth twice daily. MV with Qvs-Kqmlwozf-Iezomo (CENTRUM SILVER) 0.4 mg-300 mcg- 250 mcg tab Take by mouth. insulin 75/25 lispro protamine/lispro units/mL (HUMALOG MIX 75-25,U-100,INSULN) 100 units/mL susp as directed. HYDROcodone-acetaminophen (NORCO) 5-325 mg per tablet hydrocodone 5 mg-acetaminophen 325 mg tablet TAKE 1 TO 2 TABLETS BY MOUTH EVERY DAY AT BEDTIME NEEDED vzbfyimd-lpw-ikml-FA-lutein (CENTRUM SILVER WOMEN) 8 mg iron-400 mcg-300 [...] been ambula (more content not included)... Normal [facility] CNPNon 10-13-2021 CNPN Telephone (AGPOB1) ELMER ELLIS ([id number]) 1965 F Date Time Provider Department 10/13/21 [...] bear any weight. Patient has taken 1 [place] about an hour ago and said it [...] by mouth twice daily. - MV with Ajg-Kqrunngn-Nqxtwq (CENTRUM SILVER) 0.4 mg-300 mcg- 250 mcg tab Take by mouth. - insulin 75/25 lispro protamine/lispro units/mL (HUMALOG MIX 75-25,U-100,INSULN) 100 units/mL susp as directed. - HYDROcodone-acetaminophen (NORCO) 5-325 mg per tablet hydrocodone 5 mg-acetaminophen 325 mg tablet TAKE 1 TO 2 TABLETS BY MOUTH EVERY DAY AT BEDTIME NEEDED - zegchzhl-uxu-vucr-FA-lutein (CENTRUM SILVER WOMEN) 8 mg iron-400 mcg-300 [...] Encounter Status:Closed by FILOMENA MADRIGAL on 10/13/21 [facility] CNOVon 10-12-2021 CNOV Office Visit (AGPOB1 ) ELMER ELLIS ([id number]) 1965 F Date Time Provider Department 10/12/21 [...] mg by mouth twice daily. MV with Tah-Kokncryu-Gkhbhm (CENTRUM SILVER) 0.4 mg-300 mcg- 250 mcg tab Take by mouth. insulin 75/25 lispro protamine/lispro units/mL (HUMALOG MIX 75-25,U-100,INSULN) 100 units/mL susp as directed. HYDROcodone-acetaminophen (NORCO) 5-325 mg per tablet hydrocodone 5 mg-acetaminophen 325 mg tablet TAKE 1 TO 2 TABLETS BY MOUTH EVERY DAY AT BEDTIME NEEDED uoivfimb-kbx-vlca-FA-lutein (CENTRUM SILVER WOMEN) 8 mg iron-400 mcg-300 [...] fracture sustaine (more content not included)... Normal [facility] CNOVon 09-21-2021 CNOV Office Visit (AGPOB1 ) ELMER ELLIS ([id number]) 1965 F Date Time Provider Department 09/21/21 [...] with nonweightbearing status. She will occasionally take [place] for pain relief which is effective. She is also supplemented with nggu-skb-eiqklqo pain medications. Her medical history significant for Beatties, coronary artery disease, diabetes and associated lower extremity neuropathy, DVT requiring Plavix and Xarelto for anticoagulation. She does think she has a clotting disorder but does not seem a rib knitter. She also has kidney cancer that is [...] by mouth twice daily. - MV with Sbi-Ouzceiyh-Fvbrcb (CENTRUM SILVER) 0.4 mg-300 mcg- 250 mcg tab Take by mouth. - insulin 75/25 lispro protamine/lispro units/mL (HUMALOG MIX 75-25,U-100,INSULN) 100 units/mL susp as directed. - HYDROcodone-acetaminophen (NORCO) 5-325 mg per tablet hydrocodone 5 mg-acetaminophen 325 mg tablet TAKE 1 TO 2 TABLETS BY MOUTH EVERY DAY AT BEDTIME NEEDED - yetanlxg-iwb-qzhr-FA-lutein (CENTRUM SILVER WOMEN) 8 mg iron-400 mcg-300 [...] lateral med (more content not included)... Normal [facility] Osvaldo 09-16-2021 CORBY Telephone (AGPOB1) YECKLEY,ELMER M ([id number]) 1965 F Date Time Provider Department 09/16/21 [address] [place] [address] During your visit today, we recorded the following information about you: Jared Alcantar [place] [facility] 09/16/2021 9:05 AM Signed ----- [...] which facility was the patient seen at: [facility] / 09.12.2021 Was an appointment scheduled (Y/N): n Person calling if other than patient: n Return call to if other than patient: n Best contact number: [phone] Thank you, Peggy Saxena September 15, 2021 4:27 PM Filomen[facility] Madrigal 09/16/2021 10:18 AM Signed Called and spoke to patient regarding L ankle fracture OS 09/12/21. Patient was seen at [facility] ED after falling she fell in [...] Date: 09/16/2021 (None) Encounter Status:Closed by ERIKA HVAC DESIGN MECHANICAL ENGINEER JARED GARCIA on 09[facility]16/21 [facility] HNO ID: [id number] Author: RT Herman(R) Service: Radiology Author Type: [...] RT Herman(R) September 12, 2021 2:38 PM [facility] HNO ID: [id number] Author: RT Alexandra(R) Service: Radiology Author Type: [...] Alexandra(R) September 12, 2021 12:[address] [facility] CONSULTon 09-12-2021 CONSULT HNO ID: [id number] Author: Stoney Bauer MD Service: Orthopaedic Surgery Author Type: Resident Type: Consults Filed: 09/12/2021 11:43 PM Note Text: Attestation signed by Lilly Tony MD at 09/13/2021 6:54 PM Lilly Tony M.D. Attending Staff, Department of Orthopedic Surgery [facility] Orthopaedic Surgery Consultation Note Reason for [...] in the last 72 hours. Invalid input(s): [facility] Imaging XR of left tib/fib, ankle, foot: [...] MD September 12, 2021 11:[address] [facility] ED NOTEon 09-12-2021 ED NOTE HNO ID: [id number] Author: Joi Mariscal RN Service: Emergency Medicine Author Type: Registered Nurse Type: ED Notes Filed: 09/12/2021 11:13 AM Note Text: X-ray notified pt ready for imaging. Normal [facility] ED PROV NOTEon 09-12-2021 ED PROV NOTE HNO ID: [id number] Author: Alexander Velázquez APRN.CNP Service: Emergency Medicine [...] pain medication and follow up with her retail specialist that she already has seen previous. Patient in no acute distress vitals are stable. RETURN PRECAUTIONS Patient discharged from the Emergency Department. I do not feel that the patient's evaluation reveals any acute reason for admission at this time. I instructed them to either follow up with their primary care physicia (more content not included)... Normal [facility] XR ANKLE 1V LTon 09-12-2021 [...] alignment is otherwise stable. IMPRESSION: See above. Farm Rancher: PSCB Transcribe Date/Time: Sep 12 2021 2:45P Dictated by : KEN MCKEON MD This examination was interpreted and the report reviewed and electronically signed by: KEN MCKEON MD on Sep 12 2021 2:46PM EST [id number] Normal [facility] XR ANKLE 3V AP/LAT/OBL LTon [...] Left foot first proximal phalangeal head fracture. Farm Rancher: PSCB Transcribe Date/Time: Sep 12 2021 12:54P Dictated by : MOE SINGH MD This examination was interpreted and the report reviewed and electronically signed by: MOE SINGH MD on Sep 12 2021 1:00PM EST [id number] Normal [facility] XR FOOT 3V AP/LAT/OBL LTon [...] Left foot first proximal phalangeal head fracture. Farm Rancher: PSCB Transcribe Date/Time: Sep 12 2021 12:54P Dictated by : MOE SINGH MD This examination was interpreted and the report reviewed and electronically signed by: MOE SINGH MD on Sep 12 2021 1:00PM EST [id number] Normal [facility] XR KNEE 2V AP/LAT LTon [...] Left foot first proximal phalangeal head fracture. Farm Rancher: LILLY Transcribe Date/Time: Sep 12 2021 12:54P Dictated by : MOE SINGH MD This examination was interpreted and the report reviewed and electronically signed by: MOE SINGH MD on Sep 12 2021 1:00PM EST [id number] Normal [facility] XR TIBIA FIBULA 2V AP/LAT [...] change regarding proximal fibular fracture. No dislocation. Farm Rancher: [facility] Transcribe Date/Time: Sep 12 2021 3:23P Dictated by : NIMCO GREEN MD This examination was interpreted and the report reviewed and electronically signed by: NIMCO GREEN MD on Sep 12 2021 3:27PM EST [id number] Normal [facility] Formson 07-29-2021 Forms [id number]#[id number]:127 Normal [facility] Physician Referralon 022 Physician Referral [id number]#[id number]:127 Normal [facility] RAD - CT Reporton 07-29-2021 RAD - CT Report [id number]#[id number]:127 Normal [facility] Ambulatory Visit Summaryon 0 07-27-2021 [...] [facility] [address] , [place] [address]- [phone] Medications What How Much When Instructions Unchanged [...] about calorie (more content not included)... Normal [facility] Patient Educationon 07-28-19 22 Patient Education Nutrition [...] You could (more content not included)... Normal [facility] Urology Office/Clinic Noteon 07-27-2021 Urology Office/Clinic Note Chief Complaint new pt referred for renal mass HPI Staff Elmer is a 55yr old new pt referred for Renal mass. Pt had CT of ABD/pel done at [facility] on 06/15/21. pt says she feels like [...] Jluis Jacinto, URL In 6 months 01/26/2022 [facility] [address], [place] [address] [phone] Additional Instructions: [address] [...] SubCutaneous, BIDAC (more content not included)... Normal [facility] Comment on above: Result Comment: Elec tronically Signed By: VENKAT SAWYER, Jluis Jacinto\.br\Date and Time Signed: 07/27/21 10:26 EDT\.br\Electronically Co-Signed By: Tahmina Hanson\.br\Date and Time Co-Signed: 07/27/21 10:21 EDT GLUCOSE METERon 12-16-2020 Glucose [Mass/Vol] 216 mg/dL High 70-99 [facility] Comment on above: Result Comment: Fast ing GLUCOSE reference range has been updated per (ADA) [place] [employer]'s recommendation. 05/16/2018 Physician notified Performed By: #### L 500.34204 #### Test performed at: [address] [address] Glucose [Mass/Vol] 273 mg/dL High 70-99 [facility] Comment on above: Result Comment: Fast ing GLUCOSE reference range has been updated per (ADA) [place] [employer]'s recommendation. 05/16/2018 Physician notified Performed By: #### L 500.96053 #### Test performed at: [place] [address] OPERATIVE REPORTon OPERATIVE REPORT NAME: BRIAN ELLIS MR#: [id number] SURGEON: Malik Encarnacion DO DATE OF SURGERY: [...] up in 2 weeks. MALIK ENCARNACION DO GF/MODL/[id number] E/S: Malik Encarnacion DO 12/24/20 1255 Electronically Signed [facility] PT NAME: ELMER ELLIS MR#: [id number] [place] [address] ACCT: [id number] : 65 OPERATIVE REPORT Normal [facility] MRI LUMBAR SP W & WO CONTRAS Ton 11-12-2020 MRI LUMBAR SP W & WO CONTRAST STUDY: MRI LUMBAR SP W WO CONTRAST; 11/12/2020 11:18 am INDICATION: LUMBAR POST-LAMINECTOMY SYNDROME. COMPARISON: Lumbar radiographs dated 09/02/2020 and MRI lumbar spine dated 10/31/2019. ACCESSION NUMBER(S): [id number] ORDERING CLINICIAN: Farhan Celeste TECHNIQUE: Multiplanar multisequence [...] granulation tissue components is again evident. Normal [facility] MRI LOW EXT ANY JNT WO CON L Ton 10-29-2020 MRI LOW EXT ANY JNT WO CON LT STUDY: MRI LOW EXT ANY JNT WO CON LT; ; 10/29/2020 11:42 am INDICATION: LEFT HIP PAIN. COMPARISON: None. ACCESSION NUMBER(S): [id number] ORDERING CLINICIAN: Farhan Celeste TECHNIQUE: MR imaging [...] hamstring tendinosis. No acute abnormality seen Normal [facility] LUMB SP COMP W FLEX/EXT 6 VW Son 09-02-2020 LUMB SP COMP W FLEX/EXT 6 VWS STUDY: LUMB SP COMP W FLEX/EXT 6 VWS ; 09/02/2020 11:01 am INDICATION: PAIN. COMPARISON: 10/17/2019 ACCESSION NUMBER(S): [id number] ORDERING CLINICIAN: Farhan Celeste FINDINGS: No acute [...] of the lumbar spine without instability. Normal [facility] MRA HEAD WO CONTRASTon 07-26 MRA HEAD WO CONTRAST [facility] Department of Radiology [address] [place] [id number] Patient Name: ELMER ELLIS : 1965 Sex: F Age: Race: White Pt. Location: Patient Status: D Ordered Date: 06/17/2020 10:35:00 AM Completed Date: 07/26/2020 10:58 AM Requesting Provider: MALIK NI V Attending Provider: MALIK NI V Report Copy To: Signs & Symptoms: H93.A3 Pulsatile tinnitus, bilateral I10 History: Chriss[place] X1 Stent, R Leg, [facility] April 2020 [facility] auth# [id number] 06/25/20-08/09/20 *ER Comments: evaluate Exam: MRA HEAD [...] canals given the limitations of a large sewgk-rk-ffoj imaging. IMPRESSION: * No aneurysm, thrombus or hemodynamically significant stenosis in the cerebral arteries. Electronically signed: Sharona Carrillo M.D.. Transcribed by: [email or web address], User Resident: Electronically Signed by: SHARONA CARRILLO @ 07/29/2020 08:07 AM Normal [facility] Comment on above: Order Comment: evalu ate MRI BRAIN WO CONTRASTon - MRI BRAIN WO CONTRAST [facility] Department of Radiology [address] [place] [phone] Patient Name: ELMER ELLIS : 1965 Sex: F Age: Race: White Pt. Location: 30 Patient Status: D Ordered Date: 06/17/2020 10:35:00 AM Completed Date: 07/26/2020 10:58 AM Requesting Provider: MALIK NI V Attending Provider: MALIK NI V Report Copy To: Signs & Symptoms: H93.A3 Pulsatile tinnitus, bilateral I10 History: [place] X1 Stent, R Leg, [facility] April 2020 [facility] AUTH # [id number] 06/24/2020-08/08/2020 [id number] / Comments: evaluate Exam: MRI BRAIN WO [...] well as the dural venous sinuses. Large acaku-lb-wzwv evaluation of the internal auditory canals is negative for mass. IMPRESSION: * No acute intracranial findings. * Scattered, mild burden of nonspecific T2 weighted/FLAIR hyperintensities. Differential diagnosis includes sequelae of chronic small vessel ischemic disease, Lyme disease, vasculitis, chronic migraines, among others. Electronically signed: Sharona Carrillo M.D.. Transcribed by: [email or web address], User Resident: Electronically Signed by: SHARONA CARRILLO @ 07/29/2020 07:57 AM Normal [facility] Comment on above: Order Comment: evalu ate Vital Signs Date Time Vital Sign Value Performing Clinician Facility 03-24-2023 16:45-0500 Body height 162.6 cm Jenny Salima SET UP OPERATOR Work Phone: [facility] 03-24-2023 16:45-0500 Body mass index (BMI) [Ratio] 45.93 kg/m2 Jenny Salima SET UP OPERATOR Work Phone: [facility] 03-24-2023 16:45-0500 Body temperature 97.11 [degF] Jenny Salima SET UP OPERATOR Work Phone: [facility] 03-24-2023 16:45-0500 Body weight 121.38 kg Jenny Gaylez SET UP OPERATOR Work Phone: [facility] 03-24-2023 16:45-0500 Diastolic blood pressure 70 mm[Hg] Jenny Gaylez SET UP OPERATOR Work Phone: [facility] 03-24-2023 16:45-0500 Heart rate 76 /min Jenny Gaylez SET UP OPERATOR Work Phone: [facility] 03-24-2023 16:45-0500 Respiratory rate 20 /min Jenny Gaylez SET UP OPERATOR Work Phone: [facility] 03-24-2023 16:45-0500 SaO2% (BldA) [Mass fraction] 97 % Jenny Salima SET UP OPERATOR Work Phone: [facility] 03-24-2023 16:45-0500 Systolic blood pressure 112 mm[Hg] Jenny Salima SET UP OPERATOR Work Phone: [facility] 10-15-2022 12:17-0400 Body weight 117.03 kg Lex Pickens MD Work Phone: [facility] 07-30-2022 09:06-0400 Body temperature 97.8 [degF] DO Dawit House Work Phone: [facility] 07-30-2022 09:06-0400 Body weight 115.66 kg DO Dawit House Work Phone: [facility] 07-30-2022 09:06-0400 Diastolic blood pressure 72 mm[Hg] DO Dawit House Work Phone: [facility] 07-30-2022 09:06-0400 Heart rate 82 /min DO Dawit House Work Phone: [facility] 07-30-2022 09:06-0400 Respiratory rate 16 /min DO Dawit House Work Phone: [facility] 07-30-2022 09:06-0400 SaO2% (BldA) [Mass fraction] 97 % DO Dawit House Work Phone: [facility] 07-30-2022 09:06-0400 Systolic blood pressure 128 mm[Hg] DO Dawit House Work Phone: [facility] 06-16-2022 09:38-0400 Body height 162.56 cm DO Dawit House Work Phone: [facility] 06-02-2022 15:31-0400 Diastolic blood pressure 66 mm[Hg] DO Dawit House Work Phone: [facility] 06-02-2022 15:31-0400 Heart rate 81 /min DO Dawit House Work Phone: [facility] 06-02-2022 15:31-0400 Respiratory rate 18 /min DO Dawit House Work Phone: [facility] 06-02-2022 15:31-0400 SaO2% (BldA) [Mass fraction] 96 % DO Dawit House Work Phone: [facility] 06-02-2022 15:31-0400 Systolic blood pressure 114 mm[Hg] DO Dawit House Work Phone: [facility] 06-02-2022 15:01-0400 Inhaled oxygen flow rate 8 L/min DO Dawit House Work Phone: [facility] 06-02-2022 12:090400 Body height 162.56 cm DO Dawit Ba Work Phone: [facility] 06-02-2022 12:09-0400 Body temperature 98.7 [degF] DO Dawit Ba Work Phone: [facility] 06-02-2022 12:09040 Body weight 117.93 kg DO Dawit Ba Work Phone: [facility] 03-16-2022 13:36-0500 Body height 162.6 cm Lex Pickens MD Work Phone: [facility] 03-16-2022 13:36-0500 Body weight 120.2 kg Lex Pickens MD Work Phone: [facility] 03-16-2022 13:36-0500 Diastolic blood pressure 80 mm[Hg] Lex Pickens MD Work Phone: [facility] 03-16-2022 13:36-0500 Heart rate 87 /min Lex Pickens MD Work Phone: [facility] 03-16-2022 13:36-0500 Systolic blood pressure 128 mm[Hg] Lex Pickens MD Work Phone: [facility] 10-12-2021 12:53-0400 Body height 162.6 cm Lilly Tony MD Work Phone: [facility] 10-12-2021 12:53-0400 Body weight 117.94 kg Lilly Tony MD Work Phone: [facility] 10-12-2021 12:53-0400 Respiratory rate 20 /min Lilly Tony MD Work Phone: [facility] 07-27-2021 09:31-0400 Blood Pressure Location Jluis VENKAT [facility] 07-27-2021 09:31-0400 Diastolic blood pressure 73 mm[Hg] Jluis ROBLEDO [facility] 07-27-2021 09:31-0400 Heart rate 89 /min Jluis ROBLEDO [facility] 07-27-2021 09:31-0400 Systolic blood pressure 120 mm[Hg] Jluis ROBLEDO [facility] Encounters Encounter Date Encounter Type Care Provider Facility Start: 08-18-2023 End: 08-18-2023 ambulatory [facility] Start: 08-08-2023 ambulatory Joanne Brown Facility:[facility] Start: 07-12-2023 End: 07-12-2023 ambulatory LISETTE CUMMINS Not Available Start: 06-23-2023 End: 06-23-2023 ambulatory JENNY BORREGO Not Available Start: 06-15-2023 End: 06-15-2023 [facility] Lex Pickens MD Work Phone: Urology Comment on above: Other specified diso rders of kidney and ureter (Primary Dx); Renal mass; Morbid obesity (HCC); Type 2 diabetes mellitus with diabetic neuropathy, with long-term current use of insulin (HCC) Start: 05-17-2023 End: 05-17-2023 ambulatory LEX PICKENS Facility:[facility] Start: 05-02-2023 End: 05-03-2023 ambulatory WALESKA VASQUEZ Not Available Start: 04-28-2023 Telephone encounter Angie marin APRN.CNP Work Phone: Hematology/Oncology Comment on above: Orders Start: 04-13-2023 End: 04-13-2023 ambulatory DO Dawit Ba Work Phone: [facility] Work Phone: Start: 04-13-2023 End: 04-13-2023 Patient encounter procedure DO Dawit Ba Work Phone: [facility] [place] Work Phone: Start: 04-13-2023 Registered Recurring DO Maverick Ba Work Phone: [facility] Work Phone: Start: 04-05-2023 Refill Jenny Aichholz SET UP OPERATOR Work Phone: [facility] Comment on above: Acute non-recurrent sinusitis of other sinus (Primary Dx) Start: 03-24-2023 End: 03-24-2023 Assay of hemosiderin, quant Jenny Aichholz SET UP OPERATOR Work Phone: [facility] Start: 03-24-2023 End: 03-24-2023 Patient encounter procedure Jenny Aichholz SET UP OPERATOR Work Phone: [facility] Comment on above: Encounter for annual wellness visit (AWV) in Medicare patient (Primary Dx); Type 2 diabetes mellitus with diabetic neuropathy, with long-term current use of insulin (CMS/HCC); CAD in [place] artery (CMS/HCC); Tobacco user; Malignant neoplasm of kidney, unspecified laterality (CMS/HCC); Type 2 diabetes mellitus with insulin therapy (CMS/HCC); Routine general medical examination at health care facility Start: 03-24-2023 End: 03-24-2023 Refill Jenny Aichholz SET UP OPERATOR Work Phone: [facility] Comment on above: CAD in [place] artery (CMS/HCC) (Primary Dx) Start: 02-02-2023 End: 02-03-2023 ambulatory WALESKA Mccray APLING Not Available Start: 10-15-2022 End: 10-15-2022 [facility] Lxe Pickens MD Work Phone: Urology Comment on above: Renal mass, right (P rimary Dx); Family history of renal cancer; Morbid obesity (HCC); Current every day smoker; Other specified disorders of kidney and ureter Start: 10-15-2022 End: 10-15-2022 ambulatory LEX PICKENS Facility:[facility] Start: 10-07-2022 End: 10-07-2022 ambulatory LEX PICKENS Facility:[facility] Start: 06-18-2022 End: 06-19-[address] DAWIT BA Facility: Start: 06-02-2022 End: 06-02-2022 Admission to same day surgery center DO Dawit Ba Work Phone: [facility] [place] Start: 06-02-2022 End: 06-02-2022 ambulatory DO Dawit Ba Work Phone: [facility] Work Phone: Start: 04-22-2022 End: 04-23-[address] DAWIT BA Facility: Start: 04-09-2022 End: 04-10-2022 [facility] Lex Pickens MD Work Phone: Urology Comment on above: Other specified diso rders of kidney and ureter (Primary Dx) Start: 03-19-2022 Telephone encounter Joi uAstin RN R adiology Pet CT Comment on above: Orders (CT) Start: 03-16-2022 End: 03-16-2022 Patient encounter procedure Lex Pickens MD Work Phone: Urology Comment on above: Renal mass, right (P rimary Dx); Factor V Leiden (HCC); Coronary artery disease involving [place] heart without angina pectoris, unspecified vessel or lesion type; Smoker; Morbid obesity (HCC); Other specified disorders of kidney and ureter; Renal mass Start: 03-05-2022 End: 03-06-2022 ambulatory MD Jluis ROBLEDO Facility:[facility] Start: 03-05-2022 End: 03-05-2022 Patient encounter procedure Jluis ROBLEDO [facility] Start: 02-01-2022 End: 02-02-[address] DAWIT BA Facility: Start: 11-09-2021 End: 11-09-2021 ambulatory DAWIT BA SR Facility:[facility] Start: 10-13-2021 Telephone encounter Lilly pruitt MD Work Phone: [facility] Comment on above: Patient Update Start: 10-12-2021 End: 10-12-2021 ambulatory DAWIT MADI BA SR Facility:[facility] Start: 10-12-2021 End: 10-12-2021 Patient encounter procedure Lilly Tony MD Work Phone: [facility] Comment on above: Closed fracture of l eft ankle, initial encounter (Primary Dx) Start: 09-21-2021 End: 09-21-2021 ambulatory LILLY TONY Facility:[facility] Start: 09-16-2021 Telephone encounter Ag Orth Work Phone: [facility] Comment on above: ER F/U Start: 09-12-2021 End: 09-12-2021 Emergency department patient visit DAWIT BA Facility:[facility] Start: 09-03-[address] DAWIT BA Facili ty:[facility] Start: 07-27-2021 End: 07-28-2021 ambulatory MD Jluis ROBLEDO Facility:[facility] Start: 07-27-2021 End: 07-27-2021 Patient encounter procedure Jluis ROBLEDO [facility] Start: 06-24-2021 ambulatory MD Jluis ROBLEDO Facil ity:[facility] Procedures Date Procedure Procedure Detail Performing Clinician Start: 11-19-2022 Mammography Jenny beckett SET UP OPERATOR Work Phone: Start: 06-02-2022 Esophagogastroduodenoscopy DO Dawit Ba Work Phone: Start: 06-02-2022 Colonoscopy Jenny beckett SET UP OPERATOR Work Phone: Abdominal hysterectomy Tatiana ROBLEDO Appendectomy Jluis ROBLEDO Bilateral tubal ligation Elayne ROBLEDO Cholecystectomy Jluis COXE RS Plan of Treatment Date Care Activity Detail Author Start: 06-02-2032 Screening for malign ant neoplasm of colon [facility] Start: 07-28-2025 Diabetes Screening Diabetes Screenin g [facility] Start: 03-24-2024 Medicare Annual Well ness (AWV) Medicare Annual Wellness (AWV) [facility] Start: 11-20-2023 Screening for malign ant neoplasm of breast Mammogram [facility] Start: 10-20-2023 Glaucoma screening Diabetes: R etinopathy Screening [facility] Start: 10-12-2023 Hemoglobin A1c measurement HbA1C [facility] Start: 09-28-2023 Urine screening for protein Diabetes: Urine Protein Screening [facility] Start: 06-23-2023 End: 06-23-2023 Patient encounter procedure 06/23/2023 10:30 AM EDT Office Visit [facility] [address] [place] [address] Jenny Borrego, ZELALEM [address] [place] [address] [facility] Start: 05-17-2023 End: 08-16-2023 CREATININE BLD CREATININE BLD Lab Routine Renal mass Expected: 05/17/2023 (Approximate), Expires: 08/16/2023 [facility] Work Phone: Comment on above: Expected: 05/17/2023 (Approximate), Expires: 08/16/2023 Start: 04-22-2023 End: 03-24-2024 Hemoglobin A1c measurement Hemoglobin A1c Lab Routine Type 2 diabetes mellitus with diabetic neuropathy, with long-term current use of insulin ([facility]) Expected: 04/22/2023 (Approximate), Expires: 03/24/2024 [facility] Work Phone: Comment on above: Expected: 04/22/2023 (Approximate), Expires: 03/24/2024 Start: 04-13-2023 Erythropoietin (EPO) [Units/volume] in Serum or Plasma [facility] Start: 04-13-2023 End: 04-13-2023 [facility] Start: 04-12-2023 Hemoglobin A1c measurement Diabetes: Hemoglobin A1C [facility] Start: 03-16-2023 [facility] Start: 02-21-2023 Behavioral Health Screening Behavioral Health Screening [facility] Start: 02-21-2023 Depression Assessment Depression Ass [facility] Start: 02-11-2023 [facility] Start: 01-26-2023 Shingrix Vaccine (2 of 2) Shingrix Vaccine (2 of 2) [facility] Start: 12-20-2022 [facility] Start: 10-22-2022 Covid-19 Vaccine () Covid-19 Vaccine () [facility] Start: 10-22-2022 Influenza vaccination C [facility] Start: 10-07-2022 End: 05-09-2023 Ct abdomen w/o & w/contrast material CT KIDNEY WO/W IVCON Radiology Routine Other specified disorders of kidney and ureter Expected: 10/07/2022, Expires: 05/09/2023 [facility] Work Phone: Comment on above: Expected: 10/07/2022 , Expires: 05/09/2023 Start: 07-26-2022 [facility] Start: 07-06-2022 [facility] Start: 07-01-2022 [facility] Start: 06-23-2022 End: 06-23-2022 [facility] Start: 06-23-2022 End: 06-23-2022 [facility] Start: 06-23-2022 [facility] Start: 06-02-2022 [facility] Start: 06-02-2022 [facility] Start: 04-05-2022 End: 06-05-2022 CREATININE BLD CREATININE BLD Lab Routine Renal mass Expected: 04/05/2022, Expires: 06/05/2022 [facility] Work Phone: Comment on above: Expected: 04/05/2022 , Expires: 06/05/2022 Start: 01-01-2023 DEPRESSION ASSESSMENT DEPRESSION ASS ESSMENT [facility] Start: 10-22-2021 Influenza vaccination INFLUENZA (#1) [facility] Start: 06-25-2021 COVID-19 VACCINE (4 - Booster for Pfizer series) COVID-19 VACCINE (4 - Booster for Pfizer series) [facility] Start: 04-22-2021 COVID-19 VACCINE (4 - Booster for Pfizer series) COVID-19 VACCINE (4 - Booster for Pfizer series) [facility] Start: 04-22-2021 COVID-19 VACCINE (4 - Pfizer series) COVID-19 VACCINE (4 - Pfizer series) [facility] Start: 07-23-2017 Pneumococcal vaccination Pneum ococcal Vaccine (2 of 2 - PCV) [facility] Start: 11-06-2015 SHINGRIX VACCINE (1 of 2) SHINGRIX VACCINE (1 of 2) [facility] Start: 2010 COLOGUARD (FIT-DNA) COLOGUARD (FIT-D NA) [facility] Start: 2010 Colonoscopy COLONOSCOPY [facility] Start: 2010 COLORECTAL CANCER SCREENING COLORECTAL CANCER SCREENING [facility] Start: [address] COLONOGRAPHY [facility] Start: 2010 DIABETES SCREEN DIABETES SCREEN [facility] Start: 2010 FECAL OCCULT BLOOD FECAL OCCULT BLOO D [facility] Start: 2010 Lipid panel Lipid Screening [facility] Start: 2010 LIPID SCREEN LIPID SCREEN [facility] Start: 2010 Screening for malign ant neoplasm of colon [facility] Start: [address] [facility] Start: 2005 Mammography MAMMOGRAM [facility] Start: 2005 Screening for malign ant neoplasm of breast Mammogram Screening [facility] Start: 11-06-1995 HPV TESTING HPV TESTING [facility] Start: 11-06-1995 Screening for malign ant neoplasm of cervix [facility] Start: 1986 PAP TESTING PAP TESTING [facility] Start: 1986 Screening for malign ant neoplasm of cervix [facility] Start: 1984 Hepatitis B Vaccine (1 of 3 - 19+ 3-dose series) Hepatitis B Vaccine (1 of 3 - 19+ 3-dose series) [facility] Start: 09-15-1985 Urine microalbumin profile [facility] Start: 11-06-1983 ANNUAL PCP TEAM GEOLOGIST ABIOLA DISEASE VISIT ANNUAL PCP TEAM CHRONIC DISEASE VISIT [facility] Start: 11-06-1983 Hepatitis B surface antibody level LDL CHOLESTEROL [facility] Start: 11-06-1983 HEPATITIS C SCREENING HEPATITIS C [facility] Start: 11-06-1983 Hepatitis C screening Hepatitis C [facility] Start: 11-06-1983 HIV SCREENING HIV SCREENING [facility] Start: 11-06-1983 HIV screening HIV Screening [facility] Start: 1977 Adult depression screening assessment DEPRESSION SCREENING [facility] Start: 11-06-1975 Diabetic foot examination Diabetic Foot Exam [facility] Start: 11-06-1975 Glaucoma screening Dilated Retinal E xam [facility] Start: 11-06-1975 Hepatitis B screening Urine Albumin:Creatinine Ratio [facility] Start: 11-06-1971 PNEUMOCOCCAL (1 - PCV) PNEUMOCOCCAL (1 - PCV) [facility] Start: 1965 HEPATITIS B (1 of 3 - 3-dose series) HEPATITIS B (1 of 3 - 3-dose series) [facility] Start: 1965 Hepatitis B Vaccine (1 of 3 - 3-dose series) Hepatitis B Vaccine (1 of 3 - 3-dose series) [facility] Start: 1965 Screening for malign ant neoplasm of colon [facility] metabo lic 2000 panel - Serum or Plasma [facility] End: 07-14-2024 CT Abdomen W contrast [...] Erythropoietin (EPO) [Units/volume] in Serum or Plasma [facility] Glucose measurement estimated from glycated hemoglobin [facility] Methylmalonate [Moles/volume] in Serum or Plasma [facility] URINALYSIS, REFLEX MICROSCOPIC URINALYSIS, REFLEX MICROSCOPIC Lab Routine Screening for genitourinary condition Ordered: 10/15/2022 [facility] Work Phone: Comment on above: Ordered: 10/15/2022 XR ANKLE GENERAL 3V AP/LAT/OBL LEFT XR ANKLE GENERAL 3V AP/LAT/OBL LEFT Radiology Routine Closed fracture of left ankle, initial encounter Ordered: 10/12/2021 [facility] Work Phone: Comment on above: Ordered: 10/12/2021 [facility] Immunizations Immunization Date Immunization Notes Care Provider Suki [facility] 12-01-2022 influenza, injectabl e, quadrivalent, preservative free Jenny Aichholz SET UP OPERATOR Work Phone: [facility] 12-01-2022 zoster vaccine recombinant Jenny Aichholz SET UP OPERATOR Work Phone: [facility] 12-18-2021 influenza virus vacc ine, unspecified formulation Jluis ROBLEDO [facility] 12-18-2021 Influenza, injectabl e, [place] Canine Kidney, preservative free, quadrivalent Jenny Aichholz SET UP OPERATOR Work Phone: [facility] 02-25-2021 influenza virus vacc ine, unspecified formulation Jluis ROBLEDO [facility] 02-25-2021 influenza, injectabl e, quadrivalent, preservative free Jenny Aichholz SET UP OPERATOR Work Phone: [facility] 02-25-2021 SARS-CoV-2 (COVID-19 ) mRNA BNT-162b2 vax Jluis ROBLEDO [facility] 11-21-2020 influenza virus vacc ine, unspecified formulation Jluis ROBLEDO [facility] 11-12-2020 influenza virus vacc ine, unspecified formulation Jluis ROBLEDO [facility] 06-19-2020 SARS-CoV-2 mRNA (tozinameran 5y-11y) vaccine Jluis ROBLEDO [facility] 05-29-2020 SARS-CoV-2 mRNA (tozinameran 5y-11y) vaccine Jluis ROBLEDO [facility] 10-17-2018 influenza virus vacc ine, unspecified formulation Jluis ROBLEDO [facility] 10-17-2018 influenza, injectabl e, quadrivalent, preservative free Jenny Aichholz SET UP OPERATOR Work Phone: [facility] 11-23-2017 influenza virus vacc ine, unspecified formulation Jluis ROBLEDO [facility] 11-23-2017 influenza, injectabl e, quadrivalent, preservative free Jenny Aichholz SET UP OPERATOR Work Phone: [facility] 10-20-2017 influenza virus vacc ine, unspecified formulation Jluis ROBLEDO [facility] 10-20-2017 influenza, injectabl e, quadrivalent, preservative free Jenny Aichholz SET UP OPERATOR Work Phone: [facility] 11-22-2016 influenza virus vacc ine, unspecified formulation Jluis ROBLEDO [facility] 11-22-2016 influenza, injectabl e, quadrivalent, preservative free Jenny Aichholz SET UP OPERATOR Work Phone: [facility] 11-06-2016 influenza virus vacc ine, unspecified formulation Jluis ROBLEDO [facility] 11-06-2016 influenza, injectabl e, quadrivalent, preservative free Jenny Aichholz SET UP OPERATOR Work Phone: [facility] 07-23-2016 pneumococcal polysaccharide vaccine, 23 valent Jluis ROBLEDO [facility] Payers Date Payer Category Payer Medicaid MEDICAID [facility] MEDICAID [id number] 2022-Present [phone] [address] [place] [address] Medicaid [id number] 2022 Private Health Insurance [id number] 2019 Medicare MEDICARE MEDICAR E A AND B [id number] 2019-Present [phone] [address] [address] [place] [address] Medicare [id number] 2019 Medicare [id number] 2019 Private Health Insurance [facility] CHOICE PLUS [id number] 2019-Present [phone] [address] [place] [address] O [id number]. [id number] 2019 Private Health Insurance [facility] CHOICE PLUS [id number] 2019-Present [phone] [address] [place] [address] O [id number]. [id number] 2019 Unknown [id number] 1965 Unknown [id number] 2.16.840.1.794390.3.579.2. 727 1965 Unknown [id number] 2.16.840.1.768518.3.579.2. 727 1965 Unknown [id number] 2.16.840.1.363394.3.579.2. 727 1965 Unknown [id number] 2.16.840.1.475483.3.579.2. 593 1965 Unknown [id number] 2.16.840.1.483385.3.579.2. 593 1965 Unknown [id number] 2.16.840.1.999685.3.579.2. 593 1965 Unknown [id number] 2.16.840.1.258808.3.579.2. 593 1965 Unknown [id number] 2.16.840.1.362326.3.579.2. 1259 1965 Unknown [id number] 2.16.840.1.852682.3.579.2. 1259 1965 Unknown [id number] 2.16.840.1.327726.3.579.2. 1259 1965 Unknown [id number] 2.16.840.1.272368.3.579.2. 1259 1965 Unknown [id number] 2.16.840.1.726138.3.579.2. 1259 1965 Unknown [id number] 2.16.840.1.206073.3.579.2. 1258 1965 Unknown [id number] 2.16.840.1.169093.3.579.2. 1259 1965 Unknown [id number] 2.16.840.1.714034.3.579.2. 1259 1959 Medicaid [id number] 1959 Medicare [id number] 1959 Private Health Insurance [id number] 1959 Self-pay [id number] Medicare [id number] Unknown Lj BC/BS [id number] Unknown [id number] [id number]. 531 Social History Date Type Detail Facility Start: 07-27-2021 End: 03-05-2022 Tobacco smoking status Heavy tobacco smoker (finding) [facility] Start: 10-15-2022 End: 03-24-2023 Sex Assigned At Female [facility] Tobacco smoking stat NHIS Tobacco smoking consumption unknown [facility] Start: 1965 Sex Assigned At Not on file C [facility] Start: 09-02-2021 End: 10-12-2021 Exposure to SARS-CoV-2 (event) Not sure [facility] Start: 10-12-2021 End: 01-10-2023 Tobacco smoking status NHIS Smokes tobacco daily [facility] History of tobacco use Cigarette Smoker C [facility] Start: 10-12-2021 End: 01-10-2023 Tobacco use and exposure Smokeless tobacco non-user [facility] Start: 10-12-2021 End: 10-15-2022 Alcohol intake Ex-drinker (finding) [facility] Start: 06-02-2022 End: 07-30-2022 Tobacco smoking status NHIS Smoker (finding) [facility] Start: 1965 Sex Assigned At Female F [facility] Start: 10-15-2022 End: 03-24-2023 History of Social function [facility] National Score (1-10 0), lower number is lower risk 63 [facility] Within the last year , have you [...] Text Equipment Identifier Dates USE TWICE DAILY [id number] Start: 02-12-2023 Goals Date Patient Goal Desired Activity /State Functional Status Date Assessment Result Facility 03-05-2022 Functional Status N/A [facility] Clinical Notes 07-27-2021 to 08-18-2023 Lex Pickens MD - 06/15/2023 11:00 AM EDTTelephone Encounter - Josie Leong RN - 04/28/2023 12:15 PM Robert Borrego NP - 03/24/2023 7:10 PM Robert Borrego NP - 03/24/2023 7:07 PM EST Note Date & Type Note Facility 08-18-2023 Note [facility] Subjective Elmer Ellis is a [...] with retinopathy of both eyes ([facility]) Diabetic neuropathy, painful ([facility]) Encounter for annual wellness visit (AWV) in Medicare patient Environmental and seasonal allergies Family history of lung cancer Gallstone Gastroesophageal reflux disease without esophagitis History of varicose veins Incomplete bladder emptying Internal derangement of left knee Internal derangement of right knee Intestinal malabsorption, unspecified Iron deficiency anemia Lumbosacral plexus lesion Mucopurulent chronic bronchitis ([facility]) Neuropathy ELENA (obstructive sleep apnea) Osteoporosis Other [...] are equal, r (more content not included)... [facility] 06-15-2023 Note HNO ID: [id number] Author: LEX PICKENS MD Service: ? Author Type: Physician Type: Progress Notes Filed: 06/15/2023 12:22 Note Text: VIRTUAL VISIT PROGRESS NOTE This is a virtual visit using Arcariosom Video Visit. It required patient-provider interaction for the medical decision making as documented below. I have communicated my name and active licensure. The patient's identity and physical location were verified at the time of this visit. Either the patient or their legal customer service representative teller has been informed of the risks and [...] mg by mouth twice daily. MV with Yst-Mpumhmml-Cuelwb (CENTRUM SILVER) 0.4 mg-300 mcg- 250 mcg tab Take by mouth. (Patient not taking: Reported on 03/16/2022) insulin 75/25 lispro protamine/lispro units/mL (HUMALOG MIX 75-25,U-100,INSULN) 100 units/mL susp as directed. HYDROcodone-acetaminophen (NORCO) 5-325 mg per tablet hydrocodone 5 mg-acetaminophen 325 mg tablet TAKE 1 TO 2 TABLETS BY MOUTH EVERY DAY AT BEDTIME NEEDED bsnwkgzu-elq-pdfi-FA-lutein (CENTRUM SILVER WOMEN) 8 mg iron-400 mcg-300 [...] release 24 hr (more content not included)... [facility] 06-15-2023 History of Present illness Narrative VIRTUAL VISIT PROGRESS NOTE This is a virtual visit using Arcariosom Video Visit. It required patient-provider interaction for the medical decision making as documented below. I have communicated my name and active licensure. The patient's identity and physical location were verified at the time of this visit. Either the patient or their legal customer service representative teller has been informed of the risks and [...] mg by mouth twice daily. MV with Fwo-Crdcocje-Fzfwxh (CENTRUM SILVER) 0.4 mg-300 mcg- 250 mcg tab Take by mouth. (Patient not taking: Reported on 03/16/2022) insulin 75/25 lispro protamine/lispro units/mL (HUMALOG MIX 75-25,U-100,INSULN) 100 units/mL susp as directed. HYDROcodone-acetaminophen (NORCO) 5-325 mg per tablet hydrocodone 5 mg-acetaminophen 325 mg tablet TAKE 1 TO 2 TABLETS BY MOUTH EVERY DAY AT BEDTIME NEEDED ttgblvny-nto-bqmd-FA-lutein (CENTRUM SILVER WOMEN) 8 mg iron-400 mcg-300 [...] which included preparing to see the patient, ufnv-tz-chlt patient care, and counseling and educating the patient/family/caregiver Lex Pickens MD documented in this encounter [facility] 05-17-2023 Note HNO ID: [id number] Author: FRANCO LACY RT(R) Service: Radiology Author [...] PATIENT PRESENTS WITH AN IMPLANTABLE OR ATTACHED EMERY GRINDER: No RADIOLOGY DEPARTMENT: CT; Exam(s) Completed: Kidney PERIPHERAL IV DATA: Site assessment: Clean,Dry and Intact, Site disposition Discontinued 20g right forearm SIGNED BY: RT José Miguel(R) May 17, 2023 2:00 PM [facility] 05-17-2023 Note HNO ID: [id number] Author: JOI GREENE RN Service: ? Author [...] DATE: May 17, 2023 TIME: 2:02 PM [facility] 04-28-2023 Miscellaneous Notes Please sign pended Cre for upcoming CT. Pt needs updated lab before CT can be done Thank You! Josie Leong RN documented in this encounter [facility] 03-24-2023 History of Present illness Narrative Associated Problem(s): Encounter for annual wellness visit (AWV) in Medicare patient Reviewed Ht/Wt/BMI Recommend eye exam yearly Recommend dental exams twice a year Balance work/leisure activities Exercises is recommended most days of the week (appropriate as chronic conditions allow) Follow up yearly and prn Associated Problem(s): Type 2 diabetes mellitus with insulin therapy ([facility]) Check blood sugars daily, notify if <70 [...] Associated Problem(s): Cancer of kidney ([facility]) Continue with specialty for monitoring Associated Problem(s): CAD in [place] artery ([facility]) No acute angina symptoms Cont current meds [...] being taken. She does not see a material control supervisor.Eye exam is current. Hypertension This is a [...] Blood Gluc Sensor (FreeStyle Joelle 2 Sensor) [facility] USE TO TEST BLOOD SUGAR 4 TIMES [...] Allergies Anemia Anxiety and depression ([facility]) Arthritis CAD in [place] artery ([facility]) Cancer of kidney ([facility]) Chronic back pain Chronic bronchitis ([facility]) Chronic cough Cigarette nicotine dependence Cough Diabetes mellitus type 2 in obese ([facility]) 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 ([facility]) Diabetic neuropathy, painful ([facility]) Factor V Leiden ([facility]) Factor 5 Leiden deficiency Family history of cancer High cholesterol ([facility]) History of DVT (deep vein thrombosis) history of DVT no PE History of kidney cancer History of pancreatitis History of pneumonia History of varicose veins Intermittent claudication ([facility]) Kidney problem spot on kidney Mucopurulent chronic bronchitis ([facility]) Neuropathy ELENA (obstructive sleep apnea) Osteoporosis ([facility]) Pneumonia Sinusitis Tobacco user Type 2 diabetes mellitus with insulin therapy ([facility]) 03/24/2023 Past Surgical History: Procedure Laterality Date [...] List Items Addressed This Visit CAD in [place] artery (CMS/HCC) No acute angina symptoms Cont current meds Goal: control BP, diabetes, lipids, and QUIT smoking Tobacco user Recommend quitting, pt declines Cancer of kidney ([facility]) Continue with specialty for monitoring Type 2 diabetes mellitus with diabetic neuropathy, with long-term current use of insulin ([facility]) Relevant Orders Hemoglobin A1c Type 2 diabetes mellitus with insulin therapy ([facility]) Check blood sugars daily, notify if <70 [...] MINI PEN NEEDLES 31G X 5 MM [facility] USE TWICE DAILY cilostazol (Pletal) 100 MG tablet TAKE 1 TABLET BY MOUTH TWICE A DAY DIRECTED Oral for 90 clopidogrel (Plavix) 75 MG tablet 1 (one) time each day at the same time. Continuous Blood Gluc Sensor (FreeStyle Joelle 2 Sensor) [facility] USE TO TEST BLOOD SUGAR 4 TIMES [...] Yes Vision Screening: Yes, patient sees regular veterinarian laboratory animal care/web search evaluator Hearing Screening: Not done Cognitive Screening Self Assessment: No overt cognitive deficiency is apparent by direct observation Three Word Registration: Banana, [place], Chair Clock Drawing: Normal Clock - 2 Three Word Recall: All 3 words correct - 3 Pain Assessment Pain Score: 0 - No pain Advance Care Planning Do you have a living will?: No Do you have a medical power of community health advisor?: No Objective : BP 112/70 (BP Location: [...] March 24, 2023 documented in this encounter [facility] 10-15-2022 Note Patient Outreach (UR OLMN) ELMER ELLIS ([id number]) 1965 F Date Time Provider Department 10/15/22 LEX PICKENS During your visit today, we recorded the following information about you: Allergies As of Date: 10/15/2022 (No Known Allergies) Date Reviewed: 10/15/2022 Reviewed by: Angie Mcclellan APRN.PLATE CUTTER - Fully Assessed Visit Diagnosis:Screening for genitourinary condition [Z13.89] Order(s):URINALYSIS, REFLEX MICROSCOPIC [YTP0971] Order #: [id number] Prescriptions as of 10/18/2022 - DULoxetine (CYMBALTA) [...] by mouth twice daily. - MV with Nrl-Jrdfhzmu-Hbicfq (CENTRUM SILVER) 0.4 mg-300 mcg- 250 mcg tab Take by mouth. - insulin 75/25 lispro protamine/lispro units/mL (HUMALOG MIX 75-25,U-100,INSULN) 100 units/mL susp as directed. - HYDROcodone-acetaminophen (NORCO) 5-325 mg per tablet hydrocodone 5 mg-acetaminophen 325 mg tablet TAKE 1 TO 2 TABLETS BY MOUTH EVERY DAY AT BEDTIME NEEDED - uabyazuc-wju-omuh-FA-lutein (CENTRUM SILVER WOMEN) 8 mg iron-400 mcg-300 [...] (HCC) [D68.51] 04/19/2022 Coronary artery disease involving [place] heart *04/19/2022 Smoker [F17.200] 04/19/2022 Morbid obesity (HCC) [E66.01] 04/19/2022 Other specified disorders of kidney and ureter *04/19/2022 Encounter Status:Closed by LanternCRM LetaoUSER on 10/18/22 [facility] 10-15-2022 Note HNO ID: [id number] Author: Angie Mcclellan APRN.PLATE CUTTER Service: ? Author Type: Nurse Practitioner Type: Progress Notes Filed: 10/16/2022 9:14 AM Note Text: VIRTUAL VISIT PROGRESS NOTE This is a virtual visit using PsomasFMG video visit. It required patient-provider interaction for the medical decision making as documented below. I have communicated my name and active licensure. The patient's identity and physical location were verified at the time of this visit. Either the patient or their legal customer service representative teller has been informed of the risks and [...] mg by mouth twice daily. MV with Ima-Xzicvtlk-Zpbiny (CENTRUM SILVER) 0.4 mg-300 mcg- 250 mcg tab Take by mouth. (Patient not taking: Reported on 03/16/2022) insulin 75/25 lispro protamine/lispro units/mL (HUMALOG MIX 75-25,U-100,INSULN) 100 units/mL susp as directed. HYDROcodone-acetaminophen (NORCO) 5-325 mg per tablet hydrocodone 5 mg-acetaminophen 325 mg tablet TAKE 1 TO 2 TABLETS BY MOUTH EVERY DAY AT BEDTIME NEEDED sbtvamar-qpn-pdfu-FA-lutein (CENTRUM SILVER WOMEN) 8 mg iron-400 mcg-300 mcg tab furosemide (LASIX) 40 mg tablet furosemide 40 mg tablet TAKE 1 AND 1/2 TABLETS BY MOUTH DAILY clopidogrel (PLAVIX) 75 mg tablet clopidogrel 75 mg tablet TAKE 1 TABLET BY MOUTH EVERY DAY metoprolol succinate ER (TOPROL XL) 25 mg 24 hr tablet met (more content not included)... [facility] 10-15-2022 History of Present illness Narrative VIRTUAL VISIT PROGRESS NOTE This is a virtual visit using PsomasFMG video visit. It required patient-provider interaction for the medical decision making as documented below. I have communicated my name and active licensure. The patient's identity and physical location were verified at the time of this visit. Either the patient or their legal customer service representative teller has been informed of the risks and [...] mg by mouth twice daily. MV with Yxi-Wztfdavk-Uvziru (CENTRUM SILVER) 0.4 mg-300 mcg- 250 mcg tab Take by mouth. (Patient not taking: Reported on 03/16/2022) insulin 75/25 lispro protamine/lispro units/mL (HUMALOG MIX 75-25,U-100,INSULN) 100 units/mL susp as directed. HYDROcodone-acetaminophen (NORCO) 5-325 mg per tablet hydrocodone 5 mg-acetaminophen 325 mg tablet TAKE 1 TO 2 TABLETS BY MOUTH EVERY DAY AT BEDTIME NEEDED fbprvhme-uym-qcpl-FA-lutein (CENTRUM SILVER WOMEN) 8 mg iron-400 mcg-300 [...] which included preparing to see the patient, rqya-dg-drdr patient care, completing clinical documentation, counseling and educating the patient/family/caregiver, and ordering medications, tests, or procedures Angie Mcclellan APRN.PLATE CUTTER documented in this encounter [facility] 10-07-2022 Note HNO ID: [id number] Author: Christel Hua RT([place]) Service: ? Author [...] RT Luan(R) October 07, 2022 10:33 AM [facility] 04-09-2022 History of Present illness Narrative [...] mg by mouth twice daily. MV with Qnu-Wnhpugjf-Jflimf (CENTRUM SILVER) 0.4 mg-300 mcg- 250 mcg tab Take by mouth. (Patient not taking: Reported on 03/16/2022) insulin 75/25 lispro protamine/lispro units/mL (HUMALOG MIX 75-25,U-100,INSULN) 100 units/mL susp as directed. HYDROcodone-acetaminophen (NORCO) 5-325 mg per tablet hydrocodone 5 mg-acetaminophen 325 mg tablet TAKE 1 TO 2 TABLETS BY MOUTH EVERY DAY AT BEDTIME NEEDED qfuidvva-tsx-onyh-FA-lutein (CENTRUM SILVER WOMEN) 8 mg iron-400 mcg-300 [...] prescribing physician. I25.10 Coronary artery disease involving [place] heart without angina pectoris, unspecified vessel or [...] this encounter [facility] 03-19-2022 Miscellaneous Notes Please sign pending Cre order for upcoming CT with contrast on 04/05/22. Thank you. Joi Austin RN documented in this encounter [facility] 03-16-2022 History of Present illness Narrative Referring [...] prescribing physician. I25.10 Coronary artery disease involving [place] heart without angina pectoris, unspecified vessel or [...] this encounter [facility] 03-05-2022 Hospital Discharge instructions Patient Education 03/05/2022 [...] provider gives to you. In general: Take noap-lws-ywybqzr and prescription medicines only as told by [...] 09/04/2014 Document Revised: 03/16/2018 Document Reviewed: 03/16/2018 [email or web address] Patient Education 2020 [employer]. Follow Up Care 07/27/2021 10:19:10 With:VENKAT SAWYER, Jluis Jacinto, URL Address: [address] [place] [address]- When: Unknown [facility] 11-09-2021 Note HNO ID: [id number] Author: Lilly Tony MD Service: ? Author [...] mg by mouth twice daily. MV with Itf-Mandjegi-Qylihj (CENTRUM SILVER) 0.4 mg-300 mcg- 250 mcg tab Take by mouth. insulin 75/25 lispro protamine/lispro units/mL (HUMALOG MIX 75-25,U-100,INSULN) 100 units/mL susp as directed. HYDROcodone-acetaminophen (NORCO) 5-325 mg per tablet hydrocodone 5 mg-acetaminophen 325 mg tablet TAKE 1 TO 2 TABLETS BY MOUTH EVERY DAY AT BEDTIME NEEDED qopqiuqx-zta-onfj-FA-lutein (CENTRUM SILVER WOMEN) 8 mg iron-400 mcg-300 [...] activity without re (more content not included)... [facility] 10-19-2021 Note HNO ID: [id number] Author: Lilly Tony MD Service: ? Author [...] mg by mouth twice daily. MV with Csk-Ofxdtoaf-Vpuctq (CENTRUM SILVER) 0.4 mg-300 mcg- 250 mcg tab Take by mouth. insulin 75/25 lispro protamine/lispro units/mL (HUMALOG MIX 75-25,U-100,INSULN) 100 units/mL susp as directed. HYDROcodone-acetaminophen (NORCO) 5-325 mg per tablet hydrocodone 5 mg-acetaminophen 325 mg tablet TAKE 1 TO 2 TABLETS BY MOUTH EVERY DAY AT BEDTIME NEEDED uwdskykw-oeq-cffp-FA-lutein (CENTRUM SILVER WOMEN) 8 mg iron-400 mcg-300 [...] lower extremity. S (more content not included)... [facility] 10-18-2021 History of Present illness [...] mg by mouth twice daily. MV with Wpt-Sfxeoozn-Cscgrt (CENTRUM SILVER) 0.4 mg-300 mcg- 250 mcg tab Take by mouth. insulin 75/25 lispro protamine/lispro units/mL (HUMALOG MIX 75-25,U-100,INSULN) 100 units/mL susp as directed. HYDROcodone-acetaminophen (NORCO) 5-325 mg per tablet hydrocodone 5 mg-acetaminophen 325 mg tablet TAKE 1 TO 2 TABLETS BY MOUTH EVERY DAY AT BEDTIME NEEDED ykbpehgn-dix-bxdx-FA-lutein (CENTRUM SILVER WOMEN) 8 mg iron-400 mcg-300 [...] this encounter [facility] 10-13-2021 Miscellaneous Notes Received voicemail from patient [...] bear any weight. Patient has taken 1 [place] about an hour ago and said it is not helping the pain at all. Advised I would send message to and call patient once direction is received. Patient understood and had no further questions. Filomena Madrigal October 13, 2021 11:23 AM documented in this encounter [facility] 09-22-2021 Note HNO ID: [id number] Author: Lilly Tony MD Service: ? Author [...] with nonweightbearing status. She will occasionally take [place] for pain relief which is effective. She is also supplemented with yvxe-xvz-bopmjej pain medications. Her medical history significant for [place], coronary artery disease, diabetes and associated lower extremity neuropathy, DVT requiring Plavix and Xarelto for anticoagulation. She does think she has a clotting disorder but does not seem a rib knitter. She also has kidney cancer that is [...] by mouth twice daily. - MV with Kdt-Grkenocm-Frtqgw (CENTRUM SILVER) 0.4 mg-300 mcg- 250 mcg tab Take by mouth. - insulin 75/25 lispro protamine/lispro units/mL (HUMALOG MIX 75-25,U-100,INSULN) 100 units/mL susp as directed. - HYDROcodone-acetaminophen (NORCO) 5-325 mg per tablet hydrocodone 5 mg-acetaminophen 325 mg tablet TAKE 1 TO 2 TABLETS BY MOUTH EVERY DAY AT BEDTIME NEEDED - hhqfemap-tww-czwl-FA-lutein (CENTRUM SILVER WOMEN) 8 mg iron-400 mcg-300 [...] lymphadenopathy Peripheral Pulses (more content not included)... [facility] 09-16-2021 Miscellaneous Notes Called and spoke to patient regarding L ankle fracture OS 09/12/21. Patient was seen at [facility] ED after falling she fell in [...] facility was the patient seen at: - [facility] / 09.12.2021 Was an appointment scheduled (Y/N): n Person calling if other than patient: n Return call to if other than patient: n Best contact number: [phone] Thank you, Peggy Wigginsno September 15, 2021 4:27 PM documented in this encounter [facility] 07-27-2021 Hospital Discharge instructions Patient Education 07/27/2021 [...] provider gives to you. In general: Take dzss-ruj-gbnbzcc and prescription medicines only as told by [...] 09/04/2014 Document Revised: 03/16/2018 Document Reviewed: 03/16/2018 [email or web address] Patient Education 2020 [employer]. 07/27/2021 10:06:53 Calorie Counting for Weight Loss [...] 02/07/2006 Document Revised: 10/27/2018 Document Reviewed: 01/07/2017 [email or web address] Patient Education [employer]™. Follow Up Care 06/24/2021 14:48:04 With:VENKAT SAWYER, Jluis Jacinto, URL Address: [facility] [address] [address], [place] [address]- [phone] When:01/26/2022 Comments:[address] scan [facility] Evaluation + Plan note Future Appointments Appointment Date:02/01/2022 11:15:00 AM Scheduled Provider:Jluis ROBLEDO MD Location:[facility] Appointment Type:URO Office Visit Diagnostic Tests PendingBUN 07/27/21Creatinine 07/27/21 [facility] Evaluation + Plan note [facility] Evaluation note Diagnosis Closed fracture of left ankle, initial encounter- Primary [facility] Diagnosis Renal mass- Primary Unspecified disorder of kidney and ureter [facility] Diagnosis Renal mass, right- Primary Unspecified disorder of kidney and ureter Factor V Leiden (HCC) Primary hypercoagulable state Coronary artery disease involving [place] heart without angina pectoris, unspecified vessel or lesion type Smoker Tobacco use disorder Morbid obesity (HCC) Morbid obesity 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 mass Unspecified disorder of kidney and ureter [facility] Diagnosis Other specified disorders of kidney and ureter- Primary [facility] this [facility] noteNo assessment information [facility] Work Phone: Evaluation note* Diagnosis Renal mass, right- Primary Unspecified disorder of kidney and ureter Family history of renal cancer Family history of malignant neoplasm of kidney Morbid obesity (HCC) Morbid obesity Current every day smoker Tobacco use disorder Other specified disorders of kidney and ureter [facility] [place]* Diagnosis Screening for genitourinary condition Screening for other and unspecified genitourinary condition documented [facility]* Diagnosis Encounter for annual wellness visit (AWV) in Medicare patient- Primary Type 2 diabetes mellitus with diabetic neuropathy, with long-term current use of insulin (CMS/HCC) CAD in [place] artery (CMS/HCC) Tobacco user Tobacco use disorder Malignant neoplasm of kidney, unspecified laterality (CMS/HCC) Type 2 diabetes mellitus with insulin therapy ([facility]/HCC) Routine general medical examination at health care facility Routine general medical examination at a health care facility documented in this encounter [facility] Healthcare[facility]* Diagnosis CAD in [place] artery (CMS/HCC)- Primary documented in this encounter [facility] HealthcareEvaluation note* Diagnosis Acute non-recurrent sinusitis of other sinus- Primary documented in this encounter [facility] HealthcareEvaluation note* Diagnosis Onset Date Resolution Status Iron deficiency anemia acute [facility] Work Phone: Evaluation note* Diagnosis Renal mass- Primary Unspecified disorder of kidney and ureter documented [facility] this encounter [facility] [place] [facility]* Diagnosis Other specified disorders of kidney and ureter- Primary Renal mass Unspecified disorder of kidney and ureter Morbid obesity (HCC) Morbid obesity Type 2 diabetes mellitus with diabetic neuropathy, with long-term current use of insulin ([facility]) [facility] Narrative No data available for this section [facility] progress note No data available for this section [facility] reason for referral (narrative)* Diagnostic Procedure Only (Routine) - Pending Review Specialty Diagnoses / Procedures Referred By Contac t Referred To Contact XR IMAGING Diagnoses Closed fracture of left ankle, initial encounter Procedures XR ANKLE GENERAL 3V AP/LAT/OBL LEFT RADEX ANKLE COMPLETE MINIMUM 3 VIEWS Lilly Tony MD [address] [address] Xr Imaging Referral ID Status Reason Start Date Expiration Date Visits Requested Visits Authorized [id number] Pending Review Auto-Generat ed Referral 10/12/2021 11/11/2022 1 1 [facility] for referral (narrative) Referred by: VENKAT SAWYER, Jluis Jacinto [facility] [place] Summary Purpose Family History No Family History Records Found Relationship Condition Age at Onset Recorded Date/T moi Not Specified Myocardial infarction Unknown Diabetes mellitus Unknown Hypertension Unknown sister Malignant neoplasm of lung Unknown father Diabetes mellitus Unknown Transient ischemic attack Unknown Advance Directives No Advanced Directives Records FoundDocuments on File Type Date Recorded 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 Advance Directive(s) 09/12/2021 2:13 PM [...] W & W/O CONTRAST Lex Pickens MD [id number] [facility] [place] [address] Referral ID Status Reason Start Date Expiration Date Visits Requested Visits Authorized [id number] Pending Review Auto-Generat ed Referral 10/16/2022 11/15/2023 1 1 Specialty Diagnoses / Procedures Referred By April valdez Referred To Contact CT IMAGING Diagnoses Other specified disorders of kidney and ureter Procedures CT KIDNEY WO/W IVCON CT ABDOMEN W & W/O CONTRAST Judson Quiroga MD [id number] [facility] Referral ID Status Reason Start Date Expiration Date V isits Requested Visits Authorized [id number] Closed Auto-Generate d Referral 03/16/2022 04/15/2023 1 1 Chief Complaint and Reason for Visit Chief Complaint Anemia, Lower Hemogl obin Chief Complaint Anemia E11.40 Z79.4 Reason for Visit Iron deficiency anem ia Additional Source Comments INFORMATION SOURCE (unrecogn ized section and content) DATE CREATED AUTHOR 12/25/2020 [facility] DATE CREATED AUTHOR AUTHOR'S ORGANIZ ATION 07/25/2021 [facility] DATE CREATED AUTHOR AUTHOR'S ORGANIZ ATION 11/22/2021 [facility] DATE CREATED AUTHOR AUTHOR'S ORGANIZ ATION 03/05/2022 [facility] DATE CREATED AUTHOR AUTHOR'S ORGANIZ ATION 06/25/2022 [facility] DATE CREATED AUTHOR AUTHOR'S ORGANIZ ATION 06/16/2023 [facility] DATE CREATED AUTHOR AUTHOR'S ORGANIZ ATION 07/14/2023 [facility] DATE CREATED AUTHOR AUTHOR'S ORGANIZ ATION 08/08/2023 [facility] DATE CREATED AUTHOR AUTHOR'S ORGANIZ ATION 08/19/2023 [facility] Source Comments (unrecognize d section and content) In the event this informatio n is protected by the Federal Confidentiality of Alcohol and Drug Abuse Patient Records regulations: The Federal rules restrict any use of the information to criminally investigate or prosecute any alcohol or drug abuse patient.[facility] the event this information is protected by the Federal Confidentiality of Alcohol and Drug Abuse Patient Records regulations: The Federal rules restrict any use of the information to criminally investigate or prosecute any alcohol or drug abuse patient.[facility] the event this information is protected by the Federal Confidentiality of Alcohol and Drug Abuse Patient Records regulations: The Federal rules restrict any use of the information to criminally investigate or prosecute any alcohol or drug abuse patient.[facility] the event this information is protected by the Federal Confidentiality of Alcohol and Drug Abuse Patient Records regulations: The Federal rules restrict any use of the information to criminally investigate or prosecute any alcohol or drug abuse patient.[facility] the event this information is protected by the Federal Confidentiality of Alcohol and Drug Abuse Patient Records regulations: The Federal rules restrict any use of the information to criminally investigate or prosecute any alcohol or drug abuse patient.[facility] the event this information is protected by the Federal Confidentiality of Alcohol and Drug Abuse Patient Records regulations: The Federal rules restrict any use of the information to criminally investigate or prosecute any alcohol or drug abuse patient.[facility] the event this information is protected by the Federal Confidentiality of Alcohol and Drug Abuse Patient Records regulations: The Federal rules restrict any use of the information to criminally investigate or prosecute any alcohol or drug abuse patient.[facility] the event this information is protected by the Federal Confidentiality of Alcohol and Drug Abuse Patient Records regulations: The Federal rules restrict any use of the information to criminally investigate or prosecute any alcohol or drug abuse patient.[facility] the event this information is protected by the Federal Confidentiality of Alcohol and Drug Abuse Patient Records regulations: The Federal rules restrict any use of the information to criminally investigate or prosecute any alcohol or drug abuse patient.[facility] the event this information is protected by the Federal Confidentiality of Alcohol and Drug Abuse Patient Records regulations: The Federal rules restrict any use of the information to criminally investigate or prosecute any alcohol or drug abuse patient.[facility] Reason for Visit (unrecogniz ed section and content) Reason Comments ER F/U Reason Comments Patient Update Reason Comments Established Patient Follow Up Reason Comments Orders CT Reason Comments Consult Reason Comments Follow Up Reason Comments Orders Care Teams (unrecognized sec tion and content) Principal Technologist Relationship Specialty Start Date End Date Dawit Ba Sr. PCP - General Family Practice 10/24/14 Principal Technologist Relationship Specialty Start Date End Date Dawit Ba Sr. PCP - General Family Practice 10/24/14 Principal Technologist Relationship Specialty Start Date End Date Dawit Ba Sr. PCP - General Family Practice 10/24/14 Principal Technologist Relationship Specialty Start Date End Date Dawit Ba Sr. PCP - General Family Medicine 10/24/14 Principal Technologist Relationship Specialty Start Date End Date Dawit Ba Sr. PCP - General Family Medicine 10/24/14 Principal Technologist Relationship Specialty Start Date End Date Dawit Ba Sr. PCP - General Family Medicine 10/24/14 Team Status: Active Member Role Status Dates Dawit Ba , Primary Care Provider Active Team Status: Inactive Member Role Status Dates Dawit Ba , Primary Care Provider Active Bebo Sims DO Attending Provider Active Principal Technologist Relationship Specialty Start Date End Date Dawit Ba Sr. PCP - General Family Medicine 10/24/14 Principal Technologist Relationship Specialty Start Date End Date Dawit Ba Sr. PCP - General Family Medicine 10/24/14 Principal Technologist Relationship Specialty Start Date End Date Ludin Blanchard MD PCP - General Family Medicine 10/06/22 Jenny Borrego NP [address] [place] [address] Nurse Practitioner [facility] Medicine 12/27/22 Principal Technologist Relationship Specialty Start Date End Date Ludin Blanchard MD PCP - General Family Medicine 10/06/22 Jenny Borrego NP [address] [place] [address] Nurse Practitioner Family Medicine 12/27/22 Principal Technologist Relationship Specialty Start Date End Date Ludin Blanchard MD PCP - General Family Medicine 10/06/22 Jenny Borrego NP [address] [place] [phone] Nurse Practitioner [facility] 12/27/22 Team Status: Active Member Role Status [...] April 13, 2023 End: April 13, 2023 Principal Technologist Relationship Specialty Start Date End Date Dawit Ba Sr., PCP - General Family Medicine 10/24/14 Principal Technologist Relationship Specialty Start Date End Date Dawit [...] BE BASED ON THE PRIMARY CLINICAL RECORDS. [facility] [employer] [facility]. provides no warranty or guarantee of the accuracy or completeness of information in this document.
[2023-09-15 08:44] LABS: Estimated Average Glucose 183 mg/dL
[2023-09-15 09:21] LABS: Alanine Aminotransferase 28 U/L (14-59); Albumin Globulin Ratio 0.9; Albumin Level 3.3 g/dL (3.4-5.0); Alkaline Phosphatase 208 U/L (46-116); Anion Gap 12.8; Aspartate Amino Transferase 13 U/L (15-37); BUN Creatinine Ratio 12.4; Bilirubin Total 0.3 mg/dL (0.2-1.0); Calcium 8.8 mg/dL (8.5-10.1); Carbon Dioxide 27.7 mmol/L (21.0-32.0); Chloride 104 mmol/L (98-107); Chol HDL Ratio 3.2; Cholesterol 93 mg/dL (<=200); Estimated GFR (African America 52 (>=60); Estimated GFR (Non-African Ame 43 (>=60); Globulin 3.8 g/dL; Glucose 262 mg/dL (74-106); HDL Cholesterol 29 mg/dL (40-60); Potassium 4.5 mmol/L (3.5-5.1); Sodium 140 mmol/L (136-145); Total Protein 7.1 g/dL (6.4-8.2); Triglycerides 238 mg/dL (<=150); VLDL CHOLESTEROL 47.6 mg/dL
[2023-09-15 10:53] LABS: Bilirubin Urine NEGATIVE (NEGATIVE); Blood Urine NEGATIVE (NEGATIVE); Clarity Urine CLEAR (CLEAR); Color Urine LT. YELLOW (YELLOW); Glucose Urine UA >=1000 mg/dL (NEGATIVE); Ketones Urine NEGATIVE (NEGATIVE); Leukocyte Esterase Urine NEGATIVE (NEGATIVE); Nitrite Urine NEGATIVE (NEGATIVE); Protein Urine NEGATIVE (NEG/TRACE); Urobilinogen Urine 0.2 EU/dL (0.2-1.0)
[2023-09-15 10:56] LABS: Urine Microscopic Indicated NO
[2023-09-15 11:26] LABS: Creatinine Urine Random 55.42 mg/dL (20.00-300.00); Microalbumin Urine Random <1.3 mg/dL (<=30.0)
[2023-09-15 18:39] LABS: Gamma Glutamyl Transpeptidase 65 U/L (8-55)
== END 2023-09-15 07:26 | disposition home or self-care (01) ==
LOC: LAB 07:27
PROVIDERS: PCP Nurse Practitioner; Visit Provider Nurse Practitioner
DX: I25.10 Atherosclerotic heart disease of native coronary artery without angina pectoris (principal); E11.40 Type 2 diabetes mellitus with diabetic neuropathy, unspecified; Z79.4 Long term (current) use of insulin; K21.9 Gastro-esophageal reflux disease without esophagitis; E78.1 Pure hyperglyceridemia; R74.8 Abnormal levels of other serum enzymes
CPT/HCPCS: 36415; 80053; 80061; 81003; 82043; 82570; 82977; 83036

== ENCOUNTER 2023-09-19 11:53 | Outpatient (OUT) | payer MEDICARE, SELFPAY ==
--- NOTE | 2023-09-19 | PCN_ITS ---
CARDIAC STRESS TEST Requesting Physician: Elvis Benavides M.D. Procedure Date: 09/19/2023 PERFORMING PROVIDER: Jose Crowell M.D. INDICATION: Dyspnea, dyspnea on exertion, atherosclerotic heart disease. STRESS TEST PROTOCOL: Lexiscan myocardial perfusion imaging. Resting heart rate: 77 Max heart rate: 91 Resting blood pressure: 110/62 Max blood pressure: 114/60 CONCLUSION: 1. Resting EKG demonstrates normal sinus rhythm with low voltage QRS. 2. There were no definite EKG changes meeting the criteria of ischemia post Lexiscan infusion. 3. Please refer to separately interpreted and reported myocardial perfusion imaging report. [facility]
--- OUTSIDE RECORDS SUMMARY | 2023-09-19 12:03 | XMS_ITS | CCD ---
Author Organization [facility] Care Team Providers Care Loom Changeover Operator Name Role Phone Dawit Ba Primary Care Physician Morris Sr., Dawit Aviles Primary Care Provider Morris Sr., Dawit Aviles Primary Care Provider GOODFIELD SR, DAWIT AVILES Primary Care Unavai lable HOUSE SR, DAWIT MADI Primary Care Unavai lable LILLY TONY Attending Unavailable TONY, LILLY Attending Unavailable HOUSE SR, DAWIT [facility] Care Unavai lable HOUSE SR, DAWIT [facility] Care UnavaLILLY Phan Attending Unavailable MD Jluis ROBLEDO Attending Unavailable House, Dawit Hong Referring Unavail able MD Jluis ROBLEDO Attending Unavailable Morris Sr., Dawit Aviles Primary Care Provider DO Dawit Ba Primary Care Provider [phone] DO Bebo Sims Attending Provider HOUSE, DR PRITCHETT Attending Unavailable GOODFIELD, DR PRITCHETT Consulting Unavailable GOODFIELD, DR PRITCHETT Primary Care Unavailable GOODFIELD, DR PRITCHETT Admitting Unavailable GOODFIELD, DR PRITCHETT Attending Unavailable HOUSE, DR PRITCHETT Consulting Unavailable GOODFIELD, DR PRITCHETT Primary Care Unavailable HOUSE, DR PRITCHETT Admitting Unavailable HOUSE, DR PRITCHETT Primary Care Unavailable VENKAT ., DR KING Attending Unavailable ROBLEDO ., DR KING Consulting Unavailable ROBLEDO ., DR KING Admitting [facility]available [facility] MICHOACANO Jacinto Consulting Unavailable GOODFIELD, DR PRITCHETT Attending Unavailable HOUSE, DR PRITCHETT Primary Care Unavailable GOODFIELD, DR PRITCHETT Admitting Unavailable Ludin Blanchard MD Primary Care Provider Salima TAX ADVISOR, Jenny Unavailable DO Dawit Ba Referring Provider CJ Brown Attending Provider Jenny Borrego Primary Care Provider [phone] Jenny Borrego Attending Provider House Sr., Dawit [...] (1 source) Gluten Drug allergy (disorder) [facility] Rep[facility] (1 source) Wheat preparation Drug Allergy [facility] (1 source) Misc-Food; Translations: [Misc-Food] Food allergy (disorder) [facility] Medications Current Medications Medication Drug Class(es) [...] Start: 07-27-2021 take 1 capsule by mo [facility] twice daily gabapentin 300 mg Cap [...] Comment on above: Take 1,000 mg by [facility] twice daily. methocarbamol 500 mg oral tablet [...] (Centrum Silver 50+Women) tablet Orally 0 Active etzlbdqr-jar-xrqq-FA- lutein (CENTRUM SILVER WOMEN) 8 mg iron-400 mcg-300 mcg tab (9 sources) epbghovj-szv-nxy n-FA -lutein (CENTRUM SILVER WOMEN) 8 mg iron-400 mcg-300 mcg tab MV with Tff-Tkabtzkg-Lhvmpo (CENTRUM SILVER) 0.4 mg-300 mcg- 250 mcg tab (9 sources) Start: 07-28-19 22 MV with Tsm-Abebitwo-Wdefyt (CENTRUM SILVER) 0.4 mg-300 mcg- 250 mcg [...] Coronary arteriosclerosis; Translations: [Atherosclerotic heart disease of douglas coronary artery without angina pectoris] Onset: 0 [...] Range Facility Office Visiton 08-18-2023 Follow-up visit [id number] Sarah Ellis 1965 F Date Provider Department Center 08/18/2023 MALIK CLAUDIO Family History Problem Relation Age of Onset Diabetes Mother Heart attack Mother Other Mother Coronary artery disease Mother Diabetes Father Coronary artery disease Father Heart attack Maternal Grandfather Family Status - Relation Status Age at Mother Father Maternal Grandfather Level of Service:26560 UT OFFICE/OUTPATIENT ESTABLISHED MOD MDM 30 MIN Normal [facility] Complete Blood Count Auto Di ffon 07-07-2023 Basophils (Bld) [#/Vol] 0.1 10*3/uL Normal 0.0-0.2 [facility] Comment on above: Result Comment: PERF ORMED BY: [place] [address] PATHOLOGIST EDITORIAL SPECIALIST YU ACOSTA M.D. Performed By: #### C BC, CMP, FE and TIBC, JAQUELINE, [id number] #### [address] #### METH, EPO #### [facility] , Basophils/100 WBC (Bld) 0.6 % Normal . [facility] Comment on above: Performed By: #### C BC, CMP, FE and TIBC, JAQUELINE, [id number] #### [address] #### METH, EPO #### [facility] , Eosinophils (Bld) [#/Vol] 0.2 10*3/uL Normal 0.0-0.45 [facility] Comment on above: Performed By: #### C BC, CMP, FE and TIBC, JAQUELINE, [id number] #### [address] #### METH, EPO #### [facility] , Eosinophils/100 WBC (Bld) 1.8 % Normal . [facility] Comment on above: Performed By: #### C BC, CMP, FE and TIBC, JAQUELINE, [id number] #### [address] #### METH, EPO #### [facility] , Erythrocyte distribution width (RBC) [Ratio] 14.8 % Normal 11.9-15.3 [facility] Comment on above: Performed By: #### C BC, CMP, FE and TIBC, JAQUELINE, [id number] #### [address] #### METH, EPO #### [facility] , Hematocrit (Bld) [Volume fraction] 43.6 % Normal 34.0-46.4 [facility] Comment on above: Performed By: #### C BC, CMP, FE and TIBC, JAQUELINE, [id number] #### [place] [address] [place] #### METH, EPO #### [facility] , Hemoglobin (Bld) [Mass/Vol] 14.4 g/dL Normal 11.8-15.4 [facility] Comment on above: Performed By: #### C BC, CMP, FE and TIBC, JAQUELINE, [id number] #### [address] #### METH, EPO #### [facility] , Lymphocytes (Bld) [#/Vol] 2.7 10*3/uL Normal 1.00-4.8 [facility] Comment on above: Performed By: #### C BC, CMP, FE and TIBC, JAQUELINE, [id number] #### [place] [address] [place] #### METH, EPO #### [facility] , Lymphocytes/100 WBC (Bld) 24.7 % Normal . [facility] Comment on above: Performed By: #### C BC, CMP, FE and TIBC, JAQUELINE, [id number] #### [place] [address] [place] #### METH, EPO #### [facility] , MCH (RBC) [Entitic mass] 30.5 pg Normal 24.7-34.3 [facility] Comment on above: Performed By: #### C BC, CMP, FE and TIBC, JAQUELINE, [id number] #### [place] [address] [place] #### METH, EPO #### [facility] , MCV (RBC) [Entitic vol] 92.1 fL Normal 80-100 [facility] Comment on above: Performed By: #### C BC, CMP, FE and TIBC, JAQUELINE, [id number] #### [address] #### METH, EPO #### [facility] , Mean Corpuscular HGB Conc 33.1 g/dL Normal 32.0-35.0 [facility] Comment on above: Performed By: #### C BC, CMP, FE and TIBC, JAQUELINE, [id number] #### [place] [address] [place] #### METH, EPO #### [facility] , Monocytes (Bld) [#/Vol] 0.6 10*3/uL Normal 0.0-0.8 [facility] Comment on above: Performed By: #### C BC, CMP, FE and TIBC, JAQUELINE, [id number] #### [place] [address] [place] #### METH, EPO #### [facility] , Monocytes/100 WBC (Bld) 5.3 % Normal . [facility] Comment on above: Performed By: #### C BC, CMP, FE and TIBC, JAQUELINE, [id number] #### [place] [address] [place] #### METH, EPO #### [facility] , Neutrophils (Bld) [#/Vol] 7.5 10*3/uL Normal 1.8-7.7 [facility] Comment on above: Performed By: #### C BC, CMP, FE and TIBC, JAQUELINE, [id number] #### [address] #### METH, EPO #### [facility] , Neutrophils/100 WBC (Bld) 67.6 % Normal . [facility] Comment on above: Performed By: #### C BC, CMP, FE and TIBC, JAQUELINE, [id number] #### [place] [address] [place] #### METH, EPO #### [facility] , NRBC% 0.1 /100{WBC} Normal 0-0.5 [facility] Comment on above: Performed By: #### C BC, CMP, FE and TIBC, JAQUELINE, [id number] #### [address] #### METH, EPO #### [facility] , Platelet mean volume (Bld) [Entitic vol] 9.7 fL Normal 6.3-10.7 [facility] Comment on above: Performed By: #### C BC, CMP, FE and TIBC, JAQUELINE, [id number] #### [place] [address] [place] #### METH, EPO #### [facility] , Platelets (Bld) [#/Vol] 169 10*3/uL Normal 150-450 [facility] Comment on above: Performed By: #### C BC, CMP, FE and TIBC, JAQUELINE, [id number] #### [place] [address] [place] #### METH, EPO #### [facility] , RBC (Bld) [#/Vol] 4.73 10*6/uL Normal 3.60-5.00 [facility] Comment on above: Performed By: #### C BC, CMP, FE and TIBC, JAQUELINE, [id number] #### [place] [address] [place] #### METH, EPO #### [facility] , WBC (Bld) [#/Vol] 11.0 10*3/uL Normal 3.8-11.6 [facility] Comment on above: Performed By: #### C BC, CMP, FE and TIBC, JAQUELINE, [id number] #### [address] #### METH, EPO #### [facility] , Comprehensive Metabolic Pane mikki 07-07-2023 Albumin [Mass/Vol] 3.8 g/dL Normal 3.5-5.7 [facility] Comment on above: Performed By: #### C BC, CMP, FE and TIBC, JAQUELINE, [id number] #### [place] [address] [place] #### METH, EPO #### [facility] , Albumin/Globulin [Mass ratio] 1.4 {ratio} Normal [facility] Comment on above: Performed By: #### C BC, CMP, FE and TIBC, JAQUELINE, [id number] #### [place] [address] [place] #### METH, EPO #### [facility] , ALP [Catalytic activity/Vol] 167 U/L High 34-104 [facility] Comment on above: Performed By: #### C BC, CMP, FE and TIBC, JAQUELINE, [id number] #### [place] [address] [place] #### METH, EPO #### [facility] , ALT [Catalytic activity/Vol] 21 U/L Normal 7-52 [facility] Comment on above: Performed By: #### C BC, CMP, FE and TIBC, JAQUELINE, [id number] #### [place] [address] [place] #### METH, EPO #### [facility] , Anion gap [Moles/Vol] 13.5 mmol/L Normal 6.0-15.0 [facility] Comment on above: Performed By: #### C BC, CMP, FE and TIBC, JAQUELINE, [id number] #### [place] [address] [place] #### METH, EPO #### [facility] , AST [Catalytic activity/Vol] 15 U/L Normal 13-39 [facility] Comment on above: Performed By: #### C BC, CMP, FE and TIBC, JAQUELINE, [id number] #### [place] [address] [place] #### METH, EPO #### [facility] , Bilirubin [Mass/Vol] 0.4 mg/dL Normal 0.3-1.0 [facility] Comment on above: Performed By: #### C BC, CMP, FE and TIBC, JAQUELINE, [id number] #### [place] [address] [place] #### METH, EPO #### [facility] , Calcium [Mass/Vol] 8.6 mg/dL Normal 8.6-10.3 [facility] Comment on above: Performed By: #### C BC, CMP, FE and TIBC, JAQUELINE, [id number] #### [place] [address] [place] #### METH, EPO #### [facility] , Chloride [Moles/Vol] 102 mmol/L Normal 98-107 [facility] Comment on above: Performed By: #### C BC, CMP, FE and TIBC, JAQUELINE, [id number] #### [place] [address] [place] #### METH, EPO #### [facility] , CO2 [Moles/Vol] 26.8 mmol/L Normal 21.0-31.0 [facility] Comment on above: Performed By: #### C BC, CMP, FE and TIBC, JAQUELINE, [id number] #### [place] [address] [place] #### METH, EPO #### [facility] , Creatinine [Mass/Vol] 1.18 mg/dL Normal 0.60-1.20 [facility] Comment on above: Performed By: #### C BC, CMP, FE and TIBC, JAQUELINE, [id number] #### [place] [address] [place] #### METH, EPO #### [facility] , Creatinine Clr Calc Pharmacy 65.67 Normal [facility] Comment on above: Performed By: #### C BC, CMP, FE and TIBC, JAQUELINE, [id number] #### [place] [address] [place] #### METH, EPO #### [facility] , GFR/1.73 sq M.predicted MDRD (S/P/Bld) [Vol rate/Area] 53.873 mL/min/{1.73_m2} Normal [facility] Comment on above: Performed By: #### C BC, CMP, FE and TIBC, JAQUELINE, [id number] #### [place] [address] [place] #### METH, EPO #### [facility] , Globulin (S) [Mass/Vol] 2.8 g/dL Normal [facility] Comment on above: Performed By: #### C BC, CMP, FE and TIBC, JAQUELINE, [id number] #### [facility] [address] [place] [address] [place] #### METH, EPO #### [facility] , Glucose [Mass/Vol] 215 mg/dL High 70-100 [facility] Comment on above: Result Comment: [place] Glucose Reference Range is dependent on time and content of last meal. Glucose of more than 200 mg/dL in a nonstressed, ambulatory subject supports the diagnosis of Diabetes Mellitus. ADA recommended reference range Performed By: #### C BC, CMP, FE and TIBC, JAQUELINE, [id number] #### [place] [address] [place] #### METH, EPO #### [facility] , Potassium [Moles/Vol] 4.3 mmol/L Normal 3.5-5.1 [facility] Comment on above: Performed By: #### C BC, CMP, FE and TIBC, JAQUELINE, [id number] #### [place] [address] [place] #### METH, EPO #### [facility] , Protein [Mass/Vol] 6.6 g/dL Normal 6.4-8.9 [facility] Comment on above: Performed By: #### C BC, CMP, FE and TIBC, JAQUELINE, [id number] #### [place] [address] [place] #### METH, EPO #### [facility] , Sodium [Moles/Vol] 138 mmol/L Normal 136-145 [facility] Comment on above: Performed By: #### C BC, CMP, FE and TIBC, JAQUELINE, [id number] #### [place] [address] [place] #### METH, EPO #### [facility] , Urea nitrogen [Mass/Vol] 21 mg/dL Normal 7-25 [facility] Comment on above: Performed By: #### C BC, CMP, FE and TIBC, JAQUELINE, [id number] #### [place] [address] [place] #### METH, EPO #### [facility] , Erythropoetin (EPO), Serumon 07-07-2023 Erythropoetin (EPO), Serum 23.3 m[iU]/mL High 2.6-18.5 [facility] Comment on above: Result Comment: [place] UniCel DxI 800 Immunoassay System Values obtained with different assay methods or kits cannot be used interchangeably. Results cannot be interpreted as absolute evidence of the presence or absence of malignant disease. Performed at: [address] [id number] Weights And Measures Sealer: Hieu Willams PhD, Phone: [phone] PERFORMED BY: [place] [address] PATHOLOGIST EDITORIAL SPECIALIST YU ACOSTA M.D. Performed By: #### C BC, CMP, FE and TIBC, JAQUELINE, [id number] #### [address] #### METH, EPO #### [facility] , Ferritinon 07-07-2023 Ferritin [Mass/Vol] 154.7 ng/mL Normal 11.0-306.8 [facility] Comment on above: Performed By: #### C BC, CMP, FE and TIBC, JAQUELINE, [id number] #### [address] #### METH, EPO #### [facility] , Iron and TIBC Profileon 06-21 % Iron Saturation 33.9 % Normal 20-50 [facility] Comment on above: Performed By: #### C BC, CMP, FE and TIBC, JAQUELINE, [id number] #### [address] #### METH, EPO #### [facility] , Iron [Mass/Vol] 84 ug/dL Normal 50-212 [facility] Comment on above: Performed By: #### C BC, CMP, FE and TIBC, JAQUELINE, [id number] #### [place] [address] [place] #### METH, EPO #### [facility] , Total Iron Binding Capacity 248 ug/dL Low 255-450 [facility] Comment on above: Performed By: #### C BC, CMP, FE and TIBC, JAQUELINE, [id number] #### [place] [address] [place] #### METH, EPO #### [facility] , Transferrin [Mass/Vol] 177 mg/dL Low 203-362 [facility] Comment on above: Performed By: #### C BC, CMP, FE and TIBC, JAQUELINE, [id number] #### [address] #### METH, EPO #### [facility] , Methylmalonic Acidon 024 Methylmalonic Acid 202 Normal 0-378 [facility] Comment on above: Result Comment: This test was developed and its performance characteristics determined by [facility]. It has not been cleared or approved by the Food and Drug Administration. Performed at: [address] [id number] Weights And Measures Sealer: Amara Coyne MD, Phone: [phone] Performed By: #### C BC, CMP, FE and TIBC, JAQUELINE, [id number] #### [place] [address] [place] #### METH, EPO #### [facility] , Vit. B12/Folate Profileon Cobalamin (Vitamin B12) [Mass/Vol] 493 pg/mL Normal 180-914 [facility] Comment on above: Performed By: #### C BC, CMP, FE and TIBC, JAQUELINE, [id number] #### [place] [address] [place] #### METH, EPO #### [facility] , Folate 30.0 ng/mL Normal >5.9 [facility] Comment on above: Result Comment: Sherry te reference range: >5.9 ng/ml The WHO technical consultation on folate and vitamin b12 deficiencies has determined that folate concentrations less than 4 ng/ml are considered deficient. PERFORMED BY: [facility] [address] [place] [address] PATHOLOGIST EDITORIAL SPECIALIST YU ACOSTA M.D. Performed By: #### C BC, CMP, FE and TIBC, JAQUELINE, [id number] #### [facility] [address] [place] [address] [place] #### METH, EPO #### [facility] , CREATININE BLDon 05-17-2023 Creatinine [Mass/Vol] 1.19 mg/dL High 0.58-0.96 [facility] Comment on above: Order Comment: Speci men Type: BLOOD SPECIMEN Ordering Facility: [facility] Address: [address] [place] [address] Performed By: #### C RET1 #### [facility] CLIA [id number] [address] [place] [address] Creatinine and Glomerular filtration rate.predicted panel (S/P/Bld) 53 mL/min/1.73m??? Low >=60 [facility] Comment on above: Order Comment: Speci men Type: BLOOD SPECIMEN Ordering Facility: [facility] Address: [address] [place] [address] Result Comment: Terri mated Glomerular Filtration Rate [...] GFR. Performed By: #### C RET1 #### [facility] CLIA [id number] [address] [place] [address] CT KIDNEY WO/W IVCONon 05-16 CT KIDNEY WO/W IVCON * * *Final Report* * * DATE OF EXAM: May 17 2023 2:01PM [facility] 0546 - CT KIDNEY WO/W [...] or blastic osseous abnormality. Lower thorax: Unremarkable. Regional Sales Manager (topogram) images: No additional findings. IMPRESSION: 1. [...] any questions regarding this interpretation, please call [phone]. If you are unable to reach us at the number above, please feel free to contact [facility] at [phone]. [id number] Normal [facility] CNPNon 04-28-2023 CNPN Telephone (HEMTSA) ELMER ELLIS ([id number]) 1965 F Date Time Provider Department 04/28/23 [...] Date Reviewed: 10/15/2022 Reviewed by: Angie Mcclellan, UI APPLICATION DEVELOPER.SENIOR CARE PROVIDER - Fully Assessed Reason for Visit: Orders [681] Primary Visit Diagnosis:Renal mass [N28.89] Order(s):CREATININE BLD [SQCRET] Order #: [id number] FUTURE Prescriptions as of 04/28/2023 - DULoxetine [...] by mouth twice daily. - MV with Sks-Kxljcudu-Vwahlz (CENTRUM SILVER) 0.4 mg-300 mcg- 250 mcg tab Take by mouth. - insulin 75/25 lispro protamine/lispro units/mL (HUMALOG MIX 75-25,U-100,INSULN) 100 units/mL susp as directed. - HYDROcodone-acetaminophen (NORCO) 5-325 mg per tablet hydrocodone 5 mg-acetaminophen 325 mg tablet TAKE 1 TO 2 TABLETS BY MOUTH EVERY DAY AT BEDTIME NEEDED - pjtugxnu-sdm-hrki-FA-lutein (CENTRUM SILVER WOMEN) 8 mg iron-400 mcg-300 [...] (HCC) [D68.51] 04/19/2022 Coronary artery disease involving douglas heart *04/19/2022 Smoker [F17.200] 04/19/2022 Morbid obesity (HCC) [E66.01] 04/19/2022 Other specified disorders of kidney and ureter *04/19/2022 Encounter Status:Closed by ANGIE MCCLELLAN on 04/28/23 Normal [facility] A1C with Estimated Average G dwight 04-13-2023 Glucose [Mass/Vol] 189 mg/dL Normal [facility] Comment on above: Result Comment: PERF ORMED BY: [place] [address] PATHOLOGIST EDITORIAL SPECIALIST YU ACOSTA M.D. Performed By: #### C BC, CMP, FE and TIBC, JAQUELINE, [id number] #### [address] #### METH, EPO #### [facility] , HbA1c (Bld) [Mass fraction] 8.2 % High 4.3-5.6 [facility] Comment on above: Result Comment: Incr eased risk for diabetes: 5.7 - 6.4 diabetes: >6.4 glycemic control for adults with diabetes: <7.0 Performed By: #### C BC, CMP, FE and TIBC, JAQUELINE, [id number] #### [address] #### METH, EPO #### [facility] , Alanine aminotransferase [En zymatic activity/volume] in Serum or PlasmaOrdered By: Lilly Christianson on 04-13-2023 ALT [Catalytic activity/Vol] 40 U/L Normal 7- [facility] Comment on above: Performed By: #### C BC, CMP, FE and TIBC, JAQUELINE, [id number] #### [facility] [address] [place] [address] [place] #### METH, EPO #### [facility] , Albumin [Mass/volume] in Ser um or Plasma by Bromocresol green (BCG) dye binding methoOrdered By: Lilly Christianson on 04-13-2023 Albumin BCG dye [Mass/Vol] 3.9 g/dL 3.5-5.7 [facility] Alkaline phosphatase [Enzyma tic activity/volume] in Serum or PlasmaOrdered By: Lilly Christianson on 04-13-2023 ALP [Catalytic activity/Vol] 182 U/L High 34-104 [facility] Comment on above: Performed By: #### C BC, CMP, FE and TIBC, JAQUELINE, [id number] #### [facility] [address] [place] [address] [place] #### METH, EPO #### [facility] , Aspartate aminotransferase [ Enzymatic activity/volume] in Serum or PlasmaOrdered By: Lilly Christianson on 04-13-2023 AST [Catalytic activity/Vol] 22 U/L Normal 13-39 [facility] Comment on above: Performed By: #### C BC, CMP, FE and TIBC, JAQUELINE, [id number] #### [facility] [address] [place] [address] [place] #### METH, EPO #### [facility] , Automated basophil %Ordered By: Lilly Christianson on 04-13-2023 Basophils/100 WBC (Bld) 0.9 % Normal . [facility] Comment on above: Performed By: #### C BC, CMP, FE and TIBC, JAQUELINE, [id number] #### [facility] [address] [place] [address] [place] #### METH, EPO #### [facility] , Automated basophil countOrde red By: Lilly Christianson on 04-13-2023 Basophils (Bld) [#/Vol] 0.1 10*3/uL Normal 0.0-0.2 [facility] Comment on above: Result Comment: PERF ORMED BY: [place] [address] PATHOLOGIST EDITORIAL SPECIALIST YU ACOSTA M.D. Performed By: #### C BC, CMP, FE and TIBC, JAQUELINE, [id number] #### [address] #### METH, EPO #### [facility] , Automated blood monocyte cou ntOrdered By: Lilly Christianson on 04-13-2023 Monocytes (Bld) [#/Vol] 0.8 10*3/uL Normal 0.0-0.8 [facility] Comment on above: Performed By: #### C BC, CMP, FE and TIBC, JAQUELINE, [id number] #### [place] [address] [place] #### METH, EPO #### [facility] , Automated eosinophil %Ordere d By: Lilly Christianson on 04-13-2023 Eosinophils/100 WBC (Bld) 2.9 % Normal . [facility] Comment on above: Performed By: #### C BC, CMP, FE and TIBC, JAQUELINE, [id number] #### [place] [address] [place] #### METH, EPO #### [facility] , Automated eosinophil countOr dered By: Lilly Christianson on 04-13-2023 Eosinophils (Bld) [#/Vol] 0.3 10*3/uL Normal 0.0-0.45 [facility] Comment on above: Performed By: #### C BC, CMP, FE and TIBC, JAQUELINE, [id number] #### [place] [address] [place] #### METH, EPO #### [facility] , Automated monocyte %Ordered By: Lilly Christianson on 04-13-2023 Monocytes/100 WBC (Bld) 7.4 % Normal . [facility] Comment on above: Performed By: #### C BC, CMP, FE and TIBC, JAQUELINE, [id number] #### [address] #### METH, EPO #### [facility] , Automated neutrophil %Ordere d By: Lilly Christianson on 04-13-2023 Neutrophils/100 WBC (Bld) 65.0 % Normal . [facility] Comment on above: Performed By: #### C BC, CMP, FE and TIBC, JAQUELINE, [id number] #### [address] #### METH, EPO #### [facility] , Bilirubin.total [Mass/volume ] in Serum or PlasmaOrdered By: Lilly Christianson on 04-13-2023 Bilirubin [Mass/Vol] 0.3 mg/dL Normal 0.3-1.0 [facility] Comment on above: Performed By: #### C BC, CMP, FE and TIBC, JAQUELINE, [id number] #### [place] [address] [place] #### METH, EPO #### [facility] , Calcium [Mass/volume] in Ser um or PlasmaOrdered By: Lilly Christianson on 04-13-2023 Calcium [Mass/Vol] 8.9 mg/dL Normal 8.6-10.3 [facility] Comment on above: Performed By: #### C BC, CMP, FE and TIBC, JAQUELINE, [id number] #### [place] [address] [place] #### METH, EPO #### [facility] , Carbon dioxide, total [Moles /volume] in Serum or PlasmaOrdered By: Lilly Christianson on 04-13-2023 CO2 [Moles/Vol] 30.8 mmol/L Normal 21.0-31.0 [facility] Comment on above: Performed By: #### C BC, CMP, FE and TIBC, JAQUELINE, [id number] #### [place] [address] [place] #### METH, EPO #### [facility] , Chloride [Moles/volume] in S jigar or PlasmaOrdered By: Lilly Christianson on 04-13-2023 Chloride [Moles/Vol] 100 mmol/L Normal 98-107 [facility] Comment on above: Performed By: #### C BC, CMP, FE and TIBC, JAQUELINE, [id number] #### [address] #### METH, EPO #### [facility] , Complete Blood Count Auto Di ffon 04-13-2023 Mean Corpuscular HGB Conc 33.1 g/dL Normal 32.0-35.0 [facility] Comment on above: Performed By: #### C BC, CMP, FE and TIBC, JAQUELINE, [id number] #### [place] [address] [place] #### METH, EPO #### [facility] , NRBC% 0.1 /100{WBC} Normal 0-0.5 [facility] Comment on above: Performed By: #### C BC, CMP, FE and TIBC, JAQUELINE, [id number] #### [place] [address] [place] #### METH, EPO #### [facility] , Comprehensive Metabolic Pane mikki 04-13-2023 Albumin [Mass/Vol] 3.9 g/dL Normal 3.5-5.7 [facility] Comment on above: Performed By: #### C BC, CMP, FE and TIBC, JAQUELINE, [id number] #### [place] [address] [place] #### METH, EPO #### [facility] , Creatinine Clr Calc Pharmacy 58.71 Normal [facility] Comment on above: Performed By: #### C BC, CMP, FE and TIBC, JAQUELINE, [id number] #### [place] [address] [place] #### METH, EPO #### [facility] , GFR/1.73 sq M.predicted MDRD (S/P/Bld) [Vol rate/Area] 47.091 mL/min/{1.73_m2} Normal [facility] Comment on above: Performed By: #### C BC, CMP, FE and TIBC, JAQUELINE, [id number] #### [address] #### METH, EPO #### [facility] , Creatinine [Mass/volume] in Serum or PlasmaOrdered By: Lilly Christianson on 04-13-2023 Creatinine [Mass/Vol] 1.32 mg/dL High 0.60-1.20 [facility] Comment on above: Performed By: #### C BC, CMP, FE and TIBC, JAQUELINE, [id number] #### [place] [address] [place] #### METH, EPO #### [facility] , Erythrocyte distribution wid th [Ratio] by Automated countOrdered By: Lilly Christianson on 04-13-2023 Erythrocyte distribution width (RBC) [Ratio] 15.6 % High 11.9-15.3 [facility] Comment on above: Performed By: #### C BC, CMP, FE and TIBC, JAQUELINE, [id number] #### [place] [address] [place] #### METH, EPO #### [facility] , Erythrocytes [#/volume] in B lood by Automated countOrdered By: Lilly Christianson on 02-21-2024 RBC (Bld) [#/Vol] 4.91 10*6/uL Normal 3.60-5.00 [facility] Comment on above: Performed By: #### C BC, CMP, FE and TIBC, JAQUELINE, [id number] #### [address] #### METH, EPO #### [facility] , Erythropoetin (EPO), Serumon 04-13-2023 Erythropoetin (EPO), Serum 29.5 m[iU]/mL High 2.6-18.5 [facility] Comment on above: Result Comment: [employer] DxI 800 Immunoassay System Values obtained with different assay methods or kits cannot be used interchangeably. Results cannot be interpreted as absolute evidence of the presence or absence of malignant disease. Performed at: [address] [id number] [employer]ights And Measures Sealer: Hieu Willams PhD, Phone: [phone] PERFORMED BY: [place] [address] PATHOLOGIST EDITORIAL SPECIALIST YU ACOSTA M.D. Performed By: #### C BC, CMP, FE and TIBC, JAQUELINE, [id number] #### [address] #### METH, EPO #### [facility] , Ferritin [Mass/volume] in Se rum or PlasmaOrdered By: Lilly Christianson on 04-13-2023 Ferritin [Mass/Vol] 102.5 ng/mL Normal 11.0-306.8 [facility] Comment on above: Performed By: #### C BC, CMP, FE and TIBC, JAQUELINE, [id number] #### [place] [address] [place] #### METH, EPO #### [facility] , Folate [Mass/volume] in Seru m or PlasmaOrdered By: Lilly Christianson on 04-13-2023 Folate [Mass/Vol] 4.7 ng/mL >5.9 [place] Comment on above: Folate reference ran ge: >5.9 ng/mlThe WHO technical consultation on folate and vitamin [id number] has determined that folate concentrations lessthan 4 ng/ml are considered deficient. Glucose [Mass/volume] in Ser um or PlasmaOrdered By: iLlly Christianson on 04-13-2023 Glucose [Mass/Vol] 242 mg/dL High 70-100 [facility] Comment on above: ADA recommended refe rence rangeRandom Glucose Reference Range is dependent on time and content of last meal. Glucose of more than 200 mg/dL in a nonstressed, ambulatory subject supports the diagnosis of Diabetes Mellitus. Result Comment: [place] om Glucose Reference Range is dependent on time and content of last meal. Glucose of more than 200 mg/dL in a nonstressed, ambulatory subject supports the diagnosis of Diabetes Mellitus. ADA recommended reference range Performed By: #### C BC, CMP, FE and TIBC, JAQUELINE, [id number] #### [place] [address] [place] #### METH, EPO #### [facility] , Hematocrit [Volume Fraction] of Blood by Automated countOrdered By: Lilly Christianson on 04-13-2023 Hematocrit (Bld) [Volume fraction] 44.7 % Normal 34.0-46.4 [facility] Comment on above: Performed By: #### C BC, CMP, FE and TIBC, JAQUELINE, [id number] #### [place] [address] [place] #### METH, EPO #### [facility] , Hemoglobin [Mass/volume] in BloodOrdered By: Lilyl Christianson on 04-13-2023 Hemoglobin (Bld) [Mass/Vol] 14.8 g/dL Normal 11.8-15.4 [facility] Comment on above: Performed By: #### C BC, CMP, FE and TIBC, JAQUELINE, [id number] #### [place] [address] [place] #### METH, EPO #### [facility] , Iron [Mass/volume] in Serum or PlasmaOrdered By: Lilly Christianson on 04-13-2023 Iron [Mass/Vol] 129 ug/dL Normal 50-212 [facility] Comment on above: Performed By: #### C BC, CMP, FE and TIBC, JAQUELINE, [id number] #### [facility] [address] [place] [address] [place] #### METH, EPO #### [facility] , Iron and TIBC Profileon 03-25 % Iron Saturation 50.0 % Normal 20-50 [facility] Comment on above: Performed By: #### C BC, CMP, FE and TIBC, JAQUELINE, [id number] #### [facility] [address] [place] [address] [place] #### METH, EPO #### [facility] , Total Iron Binding Capacity 258 ug/dL Normal 255-450 [facility] Comment on above: Performed By: #### C BC, CMP, FE and TIBC, JAQUELINE, [id number] #### [facility] [address] [place] [address] [place] #### METH, EPO #### [facility] , Iron binding capacity [Mass/ volume] in Serum or PlasmaOrdered By: Lilly Christianson on 04-13-2023 Iron binding capacity [Mass/Vol] 258 ug/dL 255-450 [facility] Iron saturation [Mass Fracti on] in Serum or PlasmaOrdered By: Lilly Christianson on 04-13-2023 Iron saturation [Mass fraction] 50.0 % 20-50 [facility] Leukocytes [#/volume] correc nikki for nucleated erythrocytes in Blood by Automated counOrdered By: Lilly Christianson on 04-13-2023 WBC corrected for nucl RBC Auto (Bld) [#/Vol] 10.9 10*3/uL 3.8-11.6 [facility] Leukocytes [#/volume] in Blo od by Automated countOrdered By: Lilly Christianson on 04-13-2023 WBC (Bld) [#/Vol] 10.9 10*3/uL Normal 3.8-11.6 [facility] Comment on above: Performed By: #### C BC, CMP, FE and TIBC, JAQUELINE, [id number] #### [place] [address] [place] #### METH, EPO #### [facility] , Lymphocytes [#/volume] in Bl ood by Automated countOrdered By: Lilly Christianson on 04-13-2023 Lymphocytes (Bld) [#/Vol] 2.6 10*3/uL Normal 1.00-4.8 [facility] Comment on above: Performed By: #### C BC, CMP, FE and TIBC, JAQUELINE, [id number] #### [place] [address] [place] #### METH, EPO #### [facility] , Lymphocytes/100 leukocytes i n Blood by Automated countOrdered By: Lilly Christianson on 04-13-2023 Lymphocytes/100 WBC (Bld) 23.8 % Normal . [facility] Comment on above: Performed By: #### C BC, CMP, FE and TIBC, JAQUELINE, [id number] #### [place] [address] [place] #### METH, EPO #### [facility] , MCH [Entitic mass] by Automa nikki countOrdered By: Lilly Christianson on 04-13-2023 MCH (RBC) [Entitic mass] 30.1 pg Normal 24.7-34.3 [facility] Comment on above: Performed By: #### C BC, CMP, FE and TIBC, JAQUELINE, [id number] #### [place] [address] [place] #### METH, EPO #### [facility] , MCHC Auto (RBC) [Mass/Vol]Or dered By: Lilly Christianson on 04-13-2023 MCHC (RBC) [Mass/Vol] 33.1 g/dL 32.0-35.0 [facility] MCV [Entitic volume] by Auto mated countOrdered By: Lilly Christianson on 04-13-2023 MCV (RBC) [Entitic vol] 90.9 fL Normal 80-100 [facility] Comment on above: Performed By: #### C BC, CMP, FE and TIBC, JAQUELINE, [id number] #### [facility] [address] [place] [address] [place] #### METH, EPO #### [facility] , Methylmalonic Acidon 024 Methylmalonic Acid 321 Normal 0-378 [facility] Comment on above: Result Comment: This test was developed and its performance characteristics determined by [facility]. It has not been cleared or approved by the Food and Drug Administration. Performed at: [address] [id number] Weights And Measures Sealer: Amara Coyne MD, Phone: [phone] Performed By: #### C BC, CMP, FE and TIBC, JAQUELINE, [id number] #### [facility] [address] [place] [address] [place] #### METH, EPO #### [facility] , Neutrophils [#/volume] in Bl ood by Automated countOrdered By: Lilly Christianson on 04-13-2023 Neutrophils (Bld) [#/Vol] 7.1 10*3/uL Normal 1.8-7.7 [facility] Comment on above: Performed By: #### C BC, CMP, FE and TIBC, JAQUELINE, [id number] #### [facility] [address] [place] [address] [place] #### METH, EPO #### [facility] , No Panel InformationOrdered By: Lilly Christianson on 04-13-2023 Estimated GFR (CKD-EPI) 47.091 mL/Min [facility] Creatinine Clearance (Chem 58.71 [facility] Nucleated erythrocytes [Pres ence] in Blood by Automated countOrdered By: Lilly Christianson on 04-13-2023 Nucleated RBC Auto Ql (Bld) 0.1 /100{WBC} 0-0.5 [facility] Platelet mean volume [Entiti c volume] in Blood by Automated countOrdered By: Lilly Christianson on 04-13-2023 Platelet mean volume (Bld) [Entitic vol] 9.4 fL Normal 6.3-10.7 [facility] Comment on above: Performed By: #### C BC, CMP, FE and TIBC, JAQUELINE, [id number] #### [address] #### METH, EPO #### [facility] , Platelets [#/volume] in Bloo d by Automated countOrdered By: Lilly Christianson on 04-13-2023 Platelets (Bld) [#/Vol] 187 10*3/uL Normal 150-450 [facility] Comment on above: Performed By: #### C BC, CMP, FE and TIBC, JAQUELINE, [id number] #### [place] [address] [place] #### METH, EPO #### [facility] , Potassium [Moles/volume] in Serum or PlasmaOrdered By: Lilly Christianson on 04-13-2023 Potassium [Moles/Vol] 4.8 mmol/L Normal 3.5-5.1 [facility] Comment on above: Performed By: #### C BC, CMP, FE and TIBC, JAQUELINE, [id number] #### [place] [address] [place] #### METH, EPO #### [facility] , Protein [Mass/volume] in Ser um or PlasmaOrdered By: Lilly Christianson on 04-13-2023 Protein [Mass/Vol] 6.5 g/dL Normal 6.4-8.9 [facility] Comment on above: Performed By: #### C BC, CMP, FE and TIBC, JAQUELINE, [id number] #### [place] [address] [place] #### METH, EPO #### [facility] , Serum globulin measurement b y calculation (mass/volume)Ordered By: Lilly Christianson on 04-13-2023 Globulin (S) [Mass/Vol] 2.6 g/dL [facility] Comment on above: Performed By: #### C BC, CMP, FE and TIBC, JAQUELINE, [id number] #### [place] [address] [place] #### METH, EPO #### [facility] , Serum or plasma albumin/glob ulin mass ratioOrdered By: Lilly Christianson on 04-13-2023 Albumin/Globulin [Mass ratio] 1.5 {ratio} [facility] Comment on above: Performed By: #### C BC, CMP, FE and TIBC, JAQUELINE, [id number] #### [place] [address] [place] #### METH, EPO #### [facility] , Serum or plasma anion gap de terminationOrdered By: Lilly Christianson on 04-13-2023 Anion gap [Moles/Vol] 12.0 mmol/L Normal 6.0-15.0 [facility] Comment on above: Performed By: #### C BC, CMP, FE and TIBC, JAQUELINE, [id number] #### [place] [address] [place] #### METH, EPO #### [facility] , Sodium [Moles/volume] in Ser um or PlasmaOrdered By: Lilly Christianson on 04-13-2023 Sodium [Moles/Vol] 138 mmol/L Normal 136-145 [facility] Comment on above: Performed By: #### C BC, CMP, FE and TIBC, JAQUELINE, [id number] #### [place] [address] [place] #### METH, EPO #### [facility] , Transferrin [Mass/volume] in Serum or PlasmaOrdered By: Lilly Christianson on 04-13-2023 Transferrin [Mass/Vol] 184 mg/dL Low 203-362 [facility] Comment on above: Performed By: #### C BC, CMP, FE and TIBC, JAQUELINE, [id number] #### [facility] [address] [place] [address] [place] #### METH, EPO #### [facility] , Urea nitrogen [Mass/volume] in Serum or PlasmaOrdered By: Lilly Christianson on 04-13-2023 Urea nitrogen [Mass/Vol] 19 mg/dL Normal 7-25 [facility] Comment on above: Performed By: #### C BC, CMP, FE and TIBC, JAQUELINE, [id number] #### [facility] [address] [place] [address] #### METH, EPO #### [facility] , Vit. B12/Folate Profileon Folate 4.7 ng/mL Low >5.9 [facility] Comment on above: Result Comment: Sherry te reference range: >5.9 ng/ml The WHO technical consultation on folate and vitamin b12 deficiencies has determined that folate concentrations less than 4 ng/ml are considered deficient. PERFORMED BY: [place] [address] PATHOLOGIST EDITORIAL SPECIALIST YU ACOSTA M.D. Performed By: #### C BC, CMP, FE and TIBC, JAQUELINE, [id number] #### [facility] [address] [place] [address] [place] #### METH, EPO #### [facility] , Vitamin B12 ser/plasOrdered By: Lilly Christianson on 04-13-2023 Cobalamin (Vitamin B12) [Mass/Vol] pg/mL High 180-914 [facility] Comment on above: Performed By: #### C BC, CMP, FE and TIBC, JAQUELINE, [id number] #### [address] #### METH, EPO #### [facility] , Complete Blood Count Auto Di ffon 01-17-2023 Basophils (Bld) [#/Vol] 0.1 10*3/uL Normal 0.0-0.2 [facility] Comment on above: Result Comment: PERF ORMED BY: [place] [address] PATHOLOGIST EDITORIAL SPECIALIST YU ACOSTA M.D. Performed By: #### C BC, CMP, FE and TIBC, JAQUELINE, [id number] #### [address] #### METH, EPO #### [facility] , Basophils/100 WBC (Bld) 0.7 % Normal . [facility] Comment on above: Performed By: #### C BC, CMP, FE and TIBC, JAQUELINE, [id number] #### [address] #### METH, EPO #### [facility] , Eosinophils (Bld) [#/Vol] 0.2 10*3/uL Normal 0.0-0.45 [facility] Comment on above: Performed By: #### C BC, CMP, FE and TIBC, JAQUELINE, [id number] #### [place] [address] [place] #### METH, EPO #### [facility] , Eosinophils/100 WBC (Bld) 2.3 % Normal . [facility] Comment on above: Performed By: #### C BC, CMP, FE and TIBC, JAQUELINE, [id number] #### [address] #### METH, EPO #### [facility] , Erythrocyte distribution width (RBC) [Ratio] 14.8 % Normal 11.9-15.3 [facility] Comment on above: Performed By: #### C BC, CMP, FE and TIBC, JAQUELINE, [id number] #### [place] [address] [place] #### METH, EPO #### [facility] , Hematocrit (Bld) [Volume fraction] 42.8 % Normal 34.0-46.4 [facility] Comment on above: Performed By: #### C BC, CMP, FE and TIBC, JAQUELINE, [id number] #### [address] #### METH, EPO #### [facility] , Hemoglobin (Bld) [Mass/Vol] 14.2 g/dL Normal 11.8-15.4 [facility] Comment on above: Performed By: #### C BC, CMP, FE and TIBC, JAQUELINE, [id number] #### [address] #### METH, EPO #### [facility] , Lymphocytes (Bld) [#/Vol] 2.8 10*3/uL Normal 1.00-4.8 [facility] Comment on above: Performed By: #### C BC, CMP, FE and TIBC, JAQUELINE, [id number] #### [place] [address] [place] #### METH, EPO #### [facility] , Lymphocytes/100 WBC (Bld) 28.0 % Normal . [facility] Comment on above: Performed By: #### C BC, CMP, FE and TIBC, JAQUELINE, [id number] #### [place] [address] [place] #### METH, EPO #### [facility] , MCH (RBC) [Entitic mass] 30.3 pg Normal 24.7-34.3 [facility] Comment on above: Performed By: #### C BC, CMP, FE and TIBC, JAQUELINE, [id number] #### [place] [address] [place] #### METH, EPO #### [facility] , MCV (RBC) [Entitic vol] 90.9 fL Normal 80-100 [facility] Comment on above: Performed By: #### C BC, CMP, FE and TIBC, JAQUELINE, [id number] #### [place] [address] [place] #### METH, EPO #### [facility] , Mean Corpuscular HGB Conc 33.3 g/dL Normal 32.0-35.0 [facility] Comment on above: Performed By: #### C BC, CMP, FE and TIBC, JAQUELINE, [id number] #### [place] [address] [place] #### METH, EPO #### [facility] , Monocytes (Bld) [#/Vol] 0.8 10*3/uL Normal 0.0-0.8 [facility] Comment on above: Performed By: #### C BC, CMP, FE and TIBC, JAQUELINE, [id number] #### [place] [address] [place] #### METH, EPO #### [facility] , Monocytes/100 WBC (Bld) 8.3 % Normal . [facility] Comment on above: Performed By: #### C BC, CMP, FE and TIBC, JAQUELINE, [id number] #### [place] [address] [place] #### METH, EPO #### [facility] , Neutrophils (Bld) [#/Vol] 6.1 10*3/uL Normal 1.8-7.7 [facility] Comment on above: Performed By: #### C BC, CMP, FE and TIBC, JAQUELINE, [id number] #### [place] [address] [place] #### METH, EPO #### [facility] , Neutrophils/100 WBC (Bld) 60.7 % Normal . [facility] Comment on above: Performed By: #### C BC, CMP, FE and TIBC, JAQUELINE, [id number] #### [place] [address] [place] #### METH, EPO #### [facility] , NRBC% 0.1 /100{WBC} Normal 0-0.5 [facility] Comment on above: Performed By: #### C BC, CMP, FE and TIBC, JAQUELINE, [id number] #### [address] #### METH, EPO #### [facility] , Platelet mean volume (Bld) [Entitic vol] 9.0 fL Normal 6.3-10.7 [facility] Comment on above: Performed By: #### C BC, CMP, FE and TIBC, JAQUELINE, [id number] #### [place] [address] [place] #### METH, EPO #### [facility] , Platelets (Bld) [#/Vol] 194 10*3/uL Normal 150-450 [facility] Comment on above: Performed By: #### C BC, CMP, FE and TIBC, JAQUELINE, [id number] #### [place] [address] [place] #### METH, EPO #### [facility] , RBC (Bld) [#/Vol] 4.70 10*6/uL Normal 3.60-5.00 [facility] Comment on above: Performed By: #### C BC, CMP, FE and TIBC, JAQUELINE, [id number] #### [place] [address] [place] #### METH, EPO #### [facility] , WBC (Bld) [#/Vol] 10.0 10*3/uL Normal 3.8-11.6 [facility] Comment on above: Performed By: #### C BC, CMP, FE and TIBC, JAQUELINE, [id number] #### [place] [address] [place] #### METH, EPO #### [facility] , Comprehensive Metabolic Pane mikki 01-17-2023 Albumin [Mass/Vol] 3.9 g/dL Normal 3.5-5.7 [facility] Comment on above: Performed By: #### C BC, CMP, FE and TIBC, JAUQELINE, [id number] #### [address] #### METH, EPO #### [facility] , Albumin/Globulin [Mass ratio] 1.4 {ratio} Normal [facility] Comment on above: Performed By: #### C BC, CMP, FE and TIBC, JAQUELINE, [id number] #### [place] [address] [place] #### METH, EPO #### [facility] , ALP [Catalytic activity/Vol] 147 U/L High 34-104 [facility] Comment on above: Performed By: #### C BC, CMP, FE and TIBC, JAQUELINE, [id number] #### [place] [address] [place] #### METH, EPO #### [facility] , ALT [Catalytic activity/Vol] 19 U/L Normal 7-52 [facility] Comment on above: Performed By: #### C BC, CMP, FE and TIBC, JAQUELINE, [id number] #### [place] [address] [place] #### METH, EPO #### [facility] , Anion gap [Moles/Vol] 11.1 mmol/L Normal 6.0-15.0 [facility] Comment on above: Performed By: #### C BC, CMP, FE and TIBC, JAQUELINE, [id number] #### [address] #### METH, EPO #### [facility] , AST [Catalytic activity/Vol] 13 U/L Normal 13-39 [facility] Comment on above: Performed By: #### C BC, CMP, FE and TIBC, JAQUELINE, [id number] #### [place] [address] [place] #### METH, EPO #### [facility] , Bilirubin [Mass/Vol] 0.4 mg/dL Normal 0.3-1.0 [facility] Comment on above: Performed By: #### C BC, CMP, FE and TIBC, JAQUELINE, [id number] #### [place] [address] [place] #### METH, EPO #### [facility] , Calcium [Mass/Vol] 8.8 mg/dL Normal 8.6-10.3 [facility] Comment on above: Performed By: #### C BC, CMP, FE and TIBC, JAQUELINE, [id number] #### [place] [address] [place] #### METH, EPO #### [facility] , Chloride [Moles/Vol] 102 mmol/L Normal 98-107 [facility] Comment on above: Performed By: #### C BC, CMP, FE and TIBC, JAQUELINE, [id number] #### [place] [address] [place] #### METH, EPO #### [facility] , CO2 [Moles/Vol] 30.1 mmol/L Normal 21.0-31.0 [facility] Comment on above: Performed By: #### C BC, CMP, FE and TIBC, JAQUELINE, [id number] #### [place] [address] [place] #### METH, EPO #### [facility] , Creatinine [Mass/Vol] 1.10 mg/dL Normal 0.60-1.20 [facility] Comment on above: Performed By: #### C BC, CMP, FE and TIBC, JAQUELINE, [id number] #### [place] [address] [place] #### METH, EPO #### [facility] , Creatinine Clr Calc Pharmacy 70.45 Normal [facility] Comment on above: Performed By: #### C BC, CMP, FE and TIBC, JAQUELINE, [id number] #### [place] [address] [place] #### METH, EPO #### [facility] , GFR/1.73 sq M.predicted MDRD (S/P/Bld) [Vol rate/Area] 58.608 mL/min/{1.73_m2} Normal [facility] Comment on above: Performed By: #### C BC, CMP, FE and TIBC, JAQUELINE, [id number] #### [place] [address] [place] #### METH, EPO #### [facility] , Globulin (S) [Mass/Vol] 2.8 g/dL Normal [facility] Comment on above: Performed By: #### C BC, CMP, FE and TIBC, JAQUELINE, [id number] #### [place] [address] [place] #### METH, EPO #### [facility] , Glucose [Mass/Vol] 132 mg/dL High 70-100 [facility] Comment on above: Result Comment: [place] Glucose Reference Range is dependent on time and content of last meal. Glucose of more than 200 mg/dL in a nonstressed, ambulatory subject supports the diagnosis of Diabetes Mellitus. ADA recommended reference range Performed By: #### C BC, CMP, FE and TIBC, JAQUELINE, [id number] #### [place] [address] [place] #### METH, EPO #### [facility] , Potassium [Moles/Vol] 4.2 mmol/L Normal 3.5-5.1 [facility] Comment on above: Performed By: #### C BC, CMP, FE and TIBC, JAQUELINE, [id number] #### [address] #### METH, EPO #### [facility] , Protein [Mass/Vol] 6.7 g/dL Normal 6.4-8.9 [facility] Comment on above: Performed By: #### C BC, CMP, FE and TIBC, JAQUELINE, [id number] #### [place] [address] [place] #### METH, EPO #### [facility] , Sodium [Moles/Vol] 139 mmol/L Normal 136-145 [facility] Comment on above: Performed By: #### C BC, CMP, FE and TIBC, JAQUELINE, [id number] #### [address] #### METH, EPO #### [facility] , Urea nitrogen [Mass/Vol] 15 mg/dL Normal 7-25 [facility] Comment on above: Performed By: #### C BC, CMP, FE and TIBC, JAQUELINE, [id number] #### [place] [address] [place] #### METH, EPO #### [facility] , Erythropoetin (EPO), Serumon 01-17-2023 Erythropoetin (EPO), Serum 23.0 m[iU]/mL High 2.6-18.5 [facility] Comment on above: Result Comment: [employer] UniCel DxI 800 Immunoassay System Values obtained with different assay methods or kits cannot be used interchangeably. Results cannot be interpreted as absolute evidence of the presence or absence of malignant disease. Performed at: [address] [id number] Weights And Measures Sealer: Hieu Willams PhD, Phone: [phone] PERFORMED BY: [place] [address] PATHOLOGIST EDITORIAL SPECIALIST YU ACOSTA M.D. Performed By: #### C BC, CMP, FE and TIBC, JAQUELINE, [id number] #### [address] #### METH, EPO #### [facility] , Ferritinon 01-17-2023 Ferritin [Mass/Vol] 68.6 ng/mL Normal 11.0-306.8 [facility] Comment on above: Performed By: #### C BC, CMP, FE and TIBC, JAQUELINE, [id number] #### [address] #### METH, EPO #### [facility] , Iron and TIBC Profileon 12-23 % Iron Saturation 45.9 % Normal 20-50 [facility] Comment on above: Performed By: #### C BC, CMP, FE and TIBC, JAQUELINE, [id number] #### [place] [address] [place] #### METH, EPO #### [facility] , Iron [Mass/Vol] 129 ug/dL Normal 50-212 [facility] Comment on above: Performed By: #### C BC, CMP, FE and TIBC, JAQUELINE, [id number] #### [place] [address] [place] #### METH, EPO #### [facility] , Total Iron Binding Capacity 281 ug/dL Normal 255-450 [facility] Comment on above: Performed By: #### C BC, CMP, FE and TIBC, JAQUELINE, [id number] #### [facility] [address] [place] [address] [place] #### METH, EPO #### [facility] , Transferrin [Mass/Vol] 201 mg/dL Low 203-362 [facility] Comment on above: Performed By: #### C BC, CMP, FE and TIBC, JAQUELINE, [id number] #### [facility] [address] [place] [address] [place] #### METH, EPO #### [facility] , Methylmalonic Acidon 023 Methylmalonic Acid 224 Normal 0-378 [facility] Comment on above: Result Comment: This test was developed and its performance characteristics determined by [facility]. It has not been cleared or approved by the Food and Drug Administration. Performed at: [address] [id number] Weights And Measures Sealer: Amara Coyne MD, Phone: [phone] Performed By: #### C BC, CMP, FE and TIBC, JAQUELINE, [id number] #### [place] [address] [place] #### METH, EPO #### [facility] , Serum or plasma erythropoiet in (EPO) measurement (units/volume)Ordered By: Lilly Christianson on 01-17-2023 Erythropoietin (EPO) Qn 23.0 mIU/mL 2.6-18.5 [facility] Comment on above: [employer] UniC el DxI 800 Immunoassay SystemValues obtained with different assay methods or kits cannotbe used interchangeably. Results cannot be interpreted asabsolute evidence of the presence or absence of malignantdisease.Performed at: [address] [id number] Director: Hieu Willams PhD, Phone: [phone] Serum or plasma methylmalona te measurement (moles/volume)Ordered By: Lilly Christianson on 01-17-2023 Methylmalonate [Moles/Vol] 224 nmol/L 0-378 [facility] Comment on above: This test was develo ped and its performance characteristicsdetermined by [facility]. It has not been cleared orapproved by the Food and Drug Administration.Performed at: [address] [id number] Director: Amara Coyne MD, Phone: [phone] Vit. B12/Folate Profileon Cobalamin (Vitamin B12) [Mass/Vol] 490 pg/mL Normal 180-914 [facility] Comment on above: Performed By: #### C BC, CMP, FE and TIBC, JAQUELINE, [id number] #### [address] #### METH, EPO #### [facility] , Folate 6.8 ng/mL Normal >5.9 [facility] Comment on above: Result Comment: Sherry te reference range: >5.9 ng/ml The WHO technical consultation on folate and vitamin b12 deficiencies has determined that folate concentrations less than 4 ng/ml are considered deficient. PERFORMED BY: [place] [address] PATHOLOGIST EDITORIAL SPECIALIST YU ACOSTA M.D. Performed By: #### C BC, CMP, FE and TIBC, JAQUELINE, [id number] #### [address] #### METH, EPO #### [facility] , Complete Blood Count Auto Di ffon 10-22-2022 Basophils (Bld) [#/Vol] 0.1 10*3/uL Normal 0.0-0.2 [facility] Comment on above: Result Comment: PERF ORMED BY: [place] [address] PATHOLOGIST EDITORIAL SPECIALIST YU ACOSTA M.D. Performed By: #### C BC, CMP, FE and TIBC, JAQUELINE, [id number] #### [address] [place] [address] [place] #### METH, EPO #### [facility] , Basophils/100 WBC (Bld) 0.7 % Normal . [facility] Comment on above: Performed By: #### C BC, CMP, FE and TIBC, JAQUELINE, [id number] #### [address] #### METH, EPO #### [facility] , Eosinophils (Bld) [#/Vol] 0.4 10*3/uL Normal 0.0-0.45 [facility] Comment on above: Performed By: #### C BC, CMP, FE and TIBC, JAQUELINE, [id number] #### [address] #### METH, EPO #### [facility] , Eosinophils/100 WBC (Bld) 3.4 % Normal . [facility] Comment on above: Performed By: #### C BC, CMP, FE and TIBC, JAQUELINE, [id number] #### [place] [address] [place] #### METH, EPO #### [facility] , Erythrocyte distribution width (RBC) [Ratio] 15.8 % High 11.9-15.3 [facility] Comment on above: Performed By: #### C BC, CMP, FE and TIBC, JAQUELINE, [id number] #### [place] [address] [place] #### METH, EPO #### [facility] , Hematocrit (Bld) [Volume fraction] 39.3 % Normal 34.0-46.4 [facility] Comment on above: Performed By: #### C BC, CMP, FE and TIBC, JAQUELINE, [id number] #### [place] [address] [place] #### METH, EPO #### [facility] , Hemoglobin (Bld) [Mass/Vol] 12.8 g/dL Normal 11.8-15.4 [facility] Comment on above: Performed By: #### C BC, CMP, FE and TIBC, JAQUELINE, [id number] #### [place] [address] [place] #### METH, EPO #### [facility] , Lymphocytes (Bld) [#/Vol] 3.2 10*3/uL Normal 1.00-4.8 [facility] Comment on above: Performed By: #### C BC, CMP, FE and TIBC, JAQUELINE, [id number] #### [place] [address] [place] #### METH, EPO #### [facility] , Lymphocytes/100 WBC (Bld) 25.9 % Normal . [facility] Comment on above: Performed By: #### C BC, CMP, FE and TIBC, JAQUELINE, [id number] #### [place] [address] [place] #### METH, EPO #### [facility] , MCH (RBC) [Entitic mass] 29.5 pg Normal 24.7-34.3 [facility] Comment on above: Performed By: #### C BC, CMP, FE and TIBC, JAQUELINE, [id number] #### [place] [address] [place] #### METH, EPO #### [facility] , MCV (RBC) [Entitic vol] 90.6 fL Normal 80-100 [facility] Comment on above: Performed By: #### C BC, CMP, FE and TIBC, JAQUELINE, [id number] #### [place] [address] [place] #### METH, EPO #### [facility] , Mean Corpuscular HGB Conc 32.6 g/dL Normal 32.0-35.0 [facility] Comment on above: Performed By: #### C BC, CMP, FE and TIBC, JAQUELINE, [id number] #### [address] #### METH, EPO #### [facility] , Monocytes (Bld) [#/Vol] 0.9 10*3/uL High 0.0-0.8 [facility] Comment on above: Performed By: #### C BC, CMP, FE and TIBC, JAQUELINE, [id number] #### [address] #### METH, EPO #### [facility] , Monocytes/100 WBC (Bld) 7.1 % Normal . [facility] Comment on above: Performed By: #### C BC, CMP, FE and TIBC, JAQUELINE, [id number] #### [place] [address] [place] #### METH, EPO #### [facility] , Neutrophils (Bld) [#/Vol] 7.9 10*3/uL High 1.8-7.7 [facility] Comment on above: Performed By: #### C BC, CMP, FE and TIBC, JAQUELINE, [id number] #### [address] #### METH, EPO #### [facility] , Neutrophils/100 WBC (Bld) 62.9 % Normal . [facility] Comment on above: Performed By: #### C BC, CMP, FE and TIBC, JAQUELINE, [id number] #### [place] [address] [place] #### METH, EPO #### [facility] , NRBC% 0.1 /100{WBC} Normal 0-0.5 [facility] Comment on above: Performed By: #### C BC, CMP, FE and TIBC, JAQUELINE, [id number] #### [place] [address] [place] #### METH, EPO #### [facility] , Platelet mean volume (Bld) [Entitic vol] 10.4 fL Normal 6.3-10.7 [facility] Comment on above: Performed By: #### C BC, CMP, FE and TIBC, JAQUELINE, [id number] #### [place] [address] [place] #### METH, EPO #### [facility] , Platelets (Bld) [#/Vol] 199 10*3/uL Normal 150-450 [facility] Comment on above: Performed By: #### C BC, CMP, FE and TIBC, JAQUELINE, [id number] #### [address] #### METH, EPO #### [facility] , RBC (Bld) [#/Vol] 4.34 10*6/uL Normal 3.60-5.00 [facility] Comment on above: Performed By: #### C BC, CMP, FE and TIBC, JAQUELINE, [id number] #### [address] #### METH, EPO #### [facility] , WBC (Bld) [#/Vol] 12.5 10*3/uL High 3.8-11.6 [facility] Comment on above: Performed By: #### C BC, CMP, FE and TIBC, JAQUELINE, [id number] #### [place] [address] [place] #### METH, EPO #### [facility] , Comprehensive Metabolic Pane mikki 10-22-2022 Albumin [Mass/Vol] 3.9 g/dL Normal 3.5-5.7 [facility] Comment on above: Performed By: #### C BC, CMP, FE and TIBC, JAQUELINE, [id number] #### [place] [address] [place] #### METH, EPO #### [facility] , Albumin/Globulin [Mass ratio] 1.5 {ratio} Normal [facility] Comment on above: Performed By: #### C BC, CMP, FE and TIBC, JAQUELINE, [id number] #### [facility] [address] [place] [address] [place] #### METH, EPO #### [facility] , ALP [Catalytic activity/Vol] 161 U/L High 34-104 [facility] Comment on above: Performed By: #### C BC, CMP, FE and TIBC, JAQUELINE, [id number] #### [place] [address] [place] #### METH, EPO #### [facility] , ALT [Catalytic activity/Vol] 16 U/L Normal 7-52 [facility] Comment on above: Performed By: #### C BC, CMP, FE and TIBC, JAQUELINE, [id number] #### [place] [address] [place] #### METH, EPO #### [facility] , Anion gap [Moles/Vol] 13.9 mmol/L Normal 6.0-15.0 [facility] Comment on above: Performed By: #### C BC, CMP, FE and TIBC, JAQUELINE, [id number] #### [place] [address] [place] #### METH, EPO #### [facility] , AST [Catalytic activity/Vol] 13 U/L Normal 13-39 [facility] Comment on above: Performed By: #### C BC, CMP, FE and TIBC, JAQUELINE, [id number] #### [place] [address] [place] #### METH, EPO #### [facility] , Bilirubin [Mass/Vol] 0.3 mg/dL Normal 0.3-1.0 [facility] Comment on above: Performed By: #### C BC, CMP, FE and TIBC, JAQUELINE, [id number] #### [place] [address] [place] #### METH, EPO #### [facility] , Calcium [Mass/Vol] 8.9 mg/dL Normal 8.6-10.3 [facility] Comment on above: Performed By: #### C BC, CMP, FE and TIBC, JAQUELINE, [id number] #### [place] [address] [place] #### METH, EPO #### [facility] , Chloride [Moles/Vol] 100 mmol/L Normal 98-107 [facility] Comment on above: Performed By: #### C BC, CMP, FE and TIBC, JAQUELINE, [id number] #### [place] [address] [place] #### METH, EPO #### [facility] , CO2 [Moles/Vol] 28.4 mmol/L Normal 21.0-31.0 [facility] Comment on above: Performed By: #### C BC, CMP, FE and TIBC, JAQUELINE, [id number] #### [place] [address] [place] #### METH, EPO #### [facility] , Creatinine [Mass/Vol] 1.40 mg/dL High 0.60-1.20 [facility] Comment on above: Performed By: #### C BC, CMP, FE and TIBC, JAQUELINE, [id number] #### [place] [address] [place] #### METH, EPO #### [facility] , Creatinine Clr Calc Pharmacy 56.02 Normal [facility] Comment on above: Performed By: #### C BC, CMP, FE and TIBC, JAQUELINE, [id number] #### [place] [address] [place] #### METH, EPO #### [facility] , GFR/1.73 sq M.predicted MDRD (S/P/Bld) [Vol rate/Area] 44.155 mL/min/{1.73_m2} Normal [facility] Comment on above: Performed By: #### C BC, CMP, FE and TIBC, JAQUELINE, [id number] #### [place] [address] [place] #### METH, EPO #### [facility] , Globulin (S) [Mass/Vol] 2.6 g/dL Normal [facility] Comment on above: Performed By: #### C BC, CMP, FE and TIBC, JAQUELINE, [id number] #### [place] [address] [place] #### METH, EPO #### [facility] , Glucose [Mass/Vol] 281 mg/dL High 70-100 [facility] Comment on above: Result Comment: [place] Glucose Reference Range is dependent on time and content of last meal. Glucose of more than 200 mg/dL in a nonstressed, ambulatory subject supports the diagnosis of Diabetes Mellitus. ADA recommended reference range Performed By: #### C BC, CMP, FE and TIBC, JAQUELINE, [id number] #### [place] [address] [place] #### METH, EPO #### [facility] , Potassium [Moles/Vol] 4.3 mmol/L Normal 3.5-5.1 [facility] Comment on above: Performed By: #### C BC, CMP, FE and TIBC, JAQUELINE, [id number] #### [place] [address] [place] #### METH, EPO #### [facility] , Protein [Mass/Vol] 6.5 g/dL Normal 6.4-8.9 [facility] Comment on above: Performed By: #### C BC, CMP, FE and TIBC, JAQUELINE, [id number] #### [place] [address] [place] #### METH, EPO #### [facility] , Sodium [Moles/Vol] 138 mmol/L Normal 136-145 [facility] Comment on above: Performed By: #### C BC, CMP, FE and TIBC, JAQUELINE, [id number] #### [place] [address] [place] #### METH, EPO #### [facility] , Urea nitrogen [Mass/Vol] 17 mg/dL Normal 7-25 [facility] Comment on above: Performed By: #### C BC, CMP, FE and TIBC, JAQUELINE, [id number] #### [place] [address] [place] #### METH, EPO #### [facility] , Erythropoetin (EPO), Serumon 10-22-2022 Erythropoetin (EPO), Serum 31.7 m[iU]/mL High 2.6-18.5 [facility] Comment on above: Result Comment: [place] UniCel DxI 800 Immunoassay System Values obtained with different assay methods or kits cannot be used interchangeably. Results cannot be interpreted as absolute evidence of the presence or absence of malignant disease. Performed at: [facility] [id number] Weights And Measures Sealer: Hieu Willams PhD, Phone: [phone] PERFORMED BY: [place] [address] PATHOLOGIST EDITORIAL SPECIALIST YU ACOSTA M.D. Performed By: #### C BC, CMP, FE and TIBC, JAQUELINE, [id number] #### [place] [address] [place] #### METH, EPO #### [facility] , Ferritinon 10-22-2022 Ferritin [Mass/Vol] 82.9 ng/mL Normal 11.0-306.8 [facility] Comment on above: Performed By: #### C BC, CMP, FE and TIBC, JAQUELINE, [id number] #### [address] #### METH, EPO #### [facility] , Iron and TIBC Profileon % Iron Saturation 34.3 % Normal 20-50 [facility] Comment on above: Performed By: #### C BC, CMP, FE and TIBC, JAQUELINE, [id number] #### [place] [address] [place] #### METH, EPO #### [facility] , Iron [Mass/Vol] 94 ug/dL Normal 50-212 [facility] Comment on above: Performed By: #### C BC, CMP, FE and TIBC, JAQUELINE, [id number] #### [place] [address] [place] #### METH, EPO #### [facility] , Total Iron Binding Capacity 274 ug/dL Normal 255-450 [facility] Comment on above: Performed By: #### C BC, CMP, FE and TIBC, JAQUELINE, [id number] #### [place] [address] [place] #### METH, EPO #### [facility] , Transferrin [Mass/Vol] 196 mg/dL Low 203-362 [facility] Comment on above: Performed By: #### C BC, CMP, FE and TIBC, JAQUELINE, [id number] #### [place] [address] [place] #### METH, EPO #### [facility] , Methylmalonic Acidon 023 Methylmalonic Acid 270 Normal 0-378 [facility] Comment on above: Result Comment: This test was developed and its performance characteristics determined by [facility]. It has not been cleared or approved by the Food and Drug Administration. Performed at: [address] [id number] Weights And Measures Sealer: Amara Coyne MD, Phone: [phone] Performed By: #### C BC, CMP, FE and TIBC, JAQUELINE, [id number] #### [place] [address] [place] #### METH, EPO #### [facility] , Vit. B12/Folate Profileon Cobalamin (Vitamin B12) [Mass/Vol] pg/mL High 180-914 [facility] Comment on above: Performed By: #### C BC, CMP, FE and TIBC, JAQUELINE, [id number] #### [address] #### METH, EPO #### [facility] , Folate 5.7 ng/mL Low >5.9 [facility] Comment on above: Result Comment: Sherry te reference range: >5.9 ng/ml The WHO technical consultation on folate and vitamin b12 deficiencies has determined that folate concentrations less than 4 ng/ml are considered deficient. PERFORMED BY: [place] [address] PATHOLOGIST EDITORIAL SPECIALIST YU ACOSTA M.D. Performed By: #### C BC, CMP, FE and TIBC, JAQUELINE, [id number] #### [address] #### METH, EPO #### [facility] , CREATININE BLDon 10-07-2022 Creatinine [Mass/Vol] 1.06 mg/dL High 0.58-0.96 [facility] Comment on above: Order Comment: Speci men Type: BLOOD SPECIMEN Ordering Facility: [facility] Address: [address] [place] [address] [place] [address] Performed By: #### C RET1 #### [facility] CLIA [id number] [address] [place] [address] Creatinine and Glomerular filtration rate.predicted panel (S/P/Bld) 62 mL/min/1.73m??? Normal >=60 [facility] Comment on above: Order Comment: Speci men Type: BLOOD SPECIMEN Ordering Facility: [facility] Address: [address] [place] [address] [place] [address] Result Comment: Terri mated Glomerular Filtration Rate [...] GFR. Performed By: #### C RET1 #### [facility] CLIA [id number] [address] [place] [address] KIDNEY WO/W IVCONon 10-07 CT KIDNEY WO/W IVCON * * *Final Report* * * DATE OF EXAM: Oct 07 2022 11:27AM [facility] 0546 - CT KIDNEY WO/W [...] No pulmonary parenchymal nodule or pleural effusion. Regional Sales Manager (topogram) images: No additional findings. IMPRESSION: 3.3 [...] any questions regarding this interpretation, please call [phone]. If you are unable to reach us at the number above, please feel free to contact [facility] at [phone]. [id number] Normal [facility] C. DIFF PCRon 06-18-2022 C. DIFFICILE PCR Negative Normal NEGATIVE [facility] Comment on above: Performed By: #### [facility] #### [facility] [address] [address] [address] Naz Crouch Albumin [Mass/volume] in Ser um or PlasmaOrdered By: Joanne Brown on 06-16-2022 Albumin [Mass/Vol] 3.3 g/dL 2.9-4.4 [facility] IgA [Mass/volume] in Serum o r PlasmaOrdered By: Joanne Brown on 06-16-2022 IgA [Mass/Vol] 224 mg/dL 87-352 [facility] IgG [Mass/volume] in Serum o r PlasmaOrdered By: Joanne Brown on 06-16-2022 IgG [Mass/Vol] 1023 mg/dL [phone] [facility] IgM [Mass/volume] in Serum o r PlasmaOrdered By: Joanne Brown on 06-16-2022 IgM [Mass/Vol] 50 mg/dL 26-217 [facility] Comment on above: Performed at: [facility] [employer] [place] [id number] Director: Hieu Willams PhD, Phone: [phone] Immunoglobulin light chains. kappa.free [Mass/volume] in SerumOrdered By: Joanne Brown on 06-16-2022 Immunoglobulin light chains.kappa.free (S) [Mass/Vol] 47.9 mg/L 3.3-19.4 [facility] Immunoglobulin light chains. kappa.free/Immunoglobulin light chains.lambda.free [MassOrdered By: Joanne Brown on 06-16-2022 Immunoglobulin light chains.kappa.free/Immu noglobulin light chains.lambda.free (S) [Mass ratio] 1.89 0.26-1.65 [facility] Immunoglobulin light chains. lambda.free [Mass/volume] in Serum or PlasmaOrdered By: Joanne Brown on 06-16-2022 Immunoglobulin light chains.lambda.free [Mass/Vol] 25.3 mg/L 5.7-26.3 [facility] No Panel InformationOrdered By: Joanne Brown on 06-16-2022 Protein Electrophoresis M-Anam Not observed g/dL Not Observed [facility] Protein Electrophoresis Note See comment . [facility] Comment on above: Protein electrophore sis scan will follow via computer,mail, or ballistics tester delivery.Performed at: [facility] [id number] Director: Hieu Willams PhD, Phone: [phone] Serum Immunofixation See comment . [facility] Comment on above: No monoclonality det ected. Protein [Mass/volume] in Ser um or PlasmaOrdered By: Joanne Brown on 06-16-2022 Protein [Mass/Vol] 6.4 g/dL 6.0-8.5 [facility] Serum globulin measurement ( mass/volume)Ordered By: Joanne Brown on 06-16-2022 Globulin (S) [Mass/Vol] 3.1 g/dL 2.2-3.9 [facility] Serum or plasma albumin/glob ulin mass ratioOrdered By: Joanne Brown on 06-16-2022 Albumin/Globulin [Mass ratio] 1.1 {ratio} 0.7-1.7 [facility] Serum or plasma alpha 1 glob ulin measurement by electrophoresis (mass/volume)Ordered By: Joanne Brown on 06-16-2022 Alpha 1 globulin Elph [Mass/Vol] 0.3 g/dL 0.0-0.4 [facility] Serum or plasma alpha 2 glob ulin measurement by electrophoresis (mass/volume)Ordered By: Joanne Brown on 06-16-2022 Alpha 2 globulin Elph [Mass/Vol] 1.0 g/dL 0.4-1.0 [facility] Serum or plasma beta globuli n measurement by electrophoresis (mass/volume)Ordered By: Joanne Brown on 06-16-2022 Beta globulin Elph [Mass/Vol] 1.0 g/dL 0.7-1.3 [facility] Serum or plasma gamma globul in measurement by electrophoresis (mass/volume)Ordered By: Joanne Brown on 06-16-2022 Gamma globulin Elph [Mass/Vol] 0.9 g/dL 0.4-1.8 [facility] Glucose Glucometer (BldC) [M ass/Vol]Ordered By: Bebo Sims on 06-02-2022 Glucose [Mass/Vol] 118 mg/dL [facility] Comment on above: Random Glucose Refer ence Range is dependent on time and content of last meal. Glucose of more than 200 mg/dL in a nonstressed, ambulatory subject supports the diagnosis of Diabetes Mellitus. CBC AUTO DIFFon 04-22-2022 BASO # 0.1 103/ul Normal 0.0-0.1 [facility] Comment on above: Performed By: #### C BC #### [facility] [address] [address] [address] Naz Cruoch Basophils/100 WBC (Bld) 0.8 % Normal 0.2-2.0 [facility] Comment on above: Performed By: #### C BC #### [facility] [address] [address] [address] Naz Crouch EO # 0.3 103/ul Normal 0.0-0.7 [facility] Comment on above: Performed By: #### C BC #### [facility] [address] [address] [address] Naz Crouch Eosinophils/100 WBC (Bld) 2.2 % Normal 0.9-7.0 [facility] Comment on above: Performed By: #### C BC #### [facility] [address] [address] [address] Naz Crouch Erythrocyte distribution width (RBC) [Ratio] 20.0 % Critically high 11.0-15.0 [facility] Comment on above: Performed By: #### C BC #### [facility] [address] [address] [address] Naz Crouch Hematocrit (Bld) [Volume fraction] 27.6 % Critically low 36.0-48.0 [facility] Comment on above: Performed By: #### C BC #### [facility] [address] [address] [address] Naz Crouch Hemoglobin (Bld) [Mass/Vol] 7.3 g/dL Critically low 12.0-16.0 [facility] Comment on above: Performed By: #### C BC #### [facility] [address] [address] [address] Naz Crouch IG # 0.09 10e3/ul Critically high 0.00-0.03 [facility] Comment on above: Performed By: #### C BC #### [facility] [address] [address] [address] Naz Crouch IG % 0.7 % Critically high 0.0-0.5 [facility] Comment on above: Performed By: #### C BC #### [facility] [address] [place] [address] Dr. Naz Crouch LYMPH # 2.3 103/ul Normal 1.2-3.8 [facility] Comment on above: Performed By: #### C BC #### [facility] [address] [place] [address] Dr. Naz Crouch Lymphocytes/100 WBC (Bld) 17.8 % Critically low 20.5-60.0 [facility] Comment on above: Performed By: #### C BC #### [facility] [address] [place] [address] Dr. Naz Crouch MANUAL DIFF REQ NO Normal [facility] Comment on above: Performed By: #### C BC #### [facility] [address] [place] [address] Dr. Naz Crouch MCH (RBC) [Entitic mass] 18.3 pg Critically low 26.7-34.0 [facility] Comment on above: Performed By: #### C BC #### [facility] [address] [place] [address] Dr. Naz Crouch MCHC (RBC) [Mass/Vol] 26.4 g/dL Critically low 29.9-35.2 [facility] Comment on above: Performed By: #### C BC #### [facility] [address] [place] [address] Dr. Naz Crouch MCV (RBC) [Entitic vol] 69.2 fL Critically low 81.0-99.0 [facility] Comment on above: Performed By: #### C BC #### [facility] [address] [place] [address] Dr. Naz Crouch MONO # 0.8 103/ul Normal 0.3-0.8 [facility] Comment on above: Performed By: #### C BC #### [facility] [address] [place] [address] Dr. Naz Crouch Monocytes/100 WBC (Bld) 6.5 % Normal 1.7-12.0 [facility] Comment on above: Performed By: #### C BC #### [facility] [address] [place] [address] Dr. Naz Crouch NEUT # 9.3 103/ul Critically high 1.4-6.5 [facility] Comment on above: Performed By: #### C BC #### [facility] [address] [place] [address] Dr. Naz Crouch Neutrophils/100 WBC (Bld) 72.0 % Normal 43.0-75.0 [facility] Comment on above: Performed By: #### C BC #### [facility] [address] [place] [address] Dr. Naz Crouch Platelet mean volume (Bld) [Entitic vol] 9.4 fL Critically low 9.5-13.5 [facility] Comment on above: Performed By: #### C BC #### [facility] [address] [place] [address] Dr. Naz Crouch PLT 318 103/ul Normal 150-450 [facility] Comment on above: Performed By: #### C BC #### [facility] [address] [place] [address] Dr. Naz Crouch RBC 3.99 106/ul Critically low 4.20-5.40 [facility] Comment on above: Performed By: #### C BC #### [facility] [address] [place] [address] Dr. Naz Crouch WBC 13.0 103/ul Critically high 4.0-11.0 [facility] Comment on above: Performed By: #### C BC #### [facility] [address] [place] [address] Dr. Naz Crouch GLYCOHEMOGLOBIN A1Con 2022 ADA RECOMMENDATION SEE BELOW Normal [facility] Comment on above: Result Comment: ADA RECOMMENDED LIMIT 4.0 - 6.0 ADA THERAPEUTIC TARGET < 7.0 ACTION SUGGESTED > 7.0 Performed By: #### A 1C #### [facility] [address] [place] [address] Dr. Naz Crouch Glucose [Mass/Vol] 192 mg/dL Normal [facility] Comment on above: Performed By: #### A 1C #### [facility] [address] [place] [address] Dr. Naz Crouch HbA1c (Bld) [Mass fraction] 8.3 % Critically high 4.5-6.2 [facility] Comment on above: Performed By: #### A 1C #### [facility] [address] [place] [address] Dr. Naz Crouch MICROALBUMIN, RAND URon - mALB 4.7 mg/L Normal <=30.0 [facility] Comment on above: Performed By: #### M ALBR #### [facility] [address] [place] [address] Dr. Naz Crouch PROF 14(COMP METB)on 023 Albumin [Mass/Vol] 3.1 g/dL Critically low 3.4-5.0 [facility] Comment on above: Performed By: #### C MP, T4, TSH #### [facility] [address] [place] [address] Dr. Naz Crouch Albumin/Globulin [Mass ratio] 0.8 {ratio} Normal [facility] Comment on above: Performed By: #### C MP, T4, TSH #### [facility] [address] [place] [address] Dr. Naz Crouch ALP [Catalytic activity/Vol] 176 U/L Critically high 46-116 [facility] Comment on above: Performed By: #### C MP, T4, TSH #### [facility] [address] [place] [address] Dr. Naz Crouch ALT [Catalytic activity/Vol] 18 U/L Normal 14-59 [facility] Comment on above: Performed By: #### C MP, T4, TSH #### [facility] [address] [address] [address] Naz Crouch Anion gap [Moles/Vol] 12.9 mmol/L Normal [facility] Comment on above: Performed By: #### C MP, T4, TSH #### [facility] [address] [address] [address] Naz Crouch AST [Catalytic activity/Vol] 12 U/L Critically low 15-37 [facility] Comment on above: Performed By: #### C MP, T4, TSH #### [facility] [address] [address] [address] Naz Crouch Bilirubin [Mass/Vol] 0.2 mg/dL Normal 0.2-1.0 [facility] Comment on above: Performed By: #### C MP, T4, TSH #### [facility] [address] [place] [address] Dr. Naz Crouch Calcium [Mass/Vol] 8.8 mg/dL Normal 8.5-10.1 [facility] Comment on above: Performed By: #### C MP, T4, TSH #### [facility] [address] [place] [address] Dr. Naz Crouch Chloride [Moles/Vol] 104 mmol/L Normal 98-107 [facility] Comment on above: Performed By: #### C MP, T4, TSH #### [facility] [address] [place] [address] Dr. Naz Crouch CO2 [Moles/Vol] 27.5 mmol/L Normal 21.0-32.0 [facility] Comment on above: Performed By: #### C MP, T4, TSH #### [facility] [address] [place] [address] Dr. Naz Crouch Creatinine [Mass/Vol] 0.89 mg/dL Normal 0.55-1.02 [facility] Comment on above: Performed By: #### C MP, T4, TSH #### [facility] [address] [place] [address] Dr. Naz Crouch EGFR-AF CITIZEN [place] >60 Normal >=60 [facility] Comment on above: Performed By: #### C MP, T4, TSH #### [facility] [address] [place] [address] Dr. Naz Crouch EGFR-NON AF CITIZEN OF [place] >60 Normal >=60 [facility] Comment on above: Performed By: #### C MP, T4, TSH #### [facility] [address] [place] [address] Dr. Naz Crouch Globulin (S) [Mass/Vol] 3.9 g/dL Normal [facility] Comment on above: Performed By: #### C MP, T4, TSH #### [facility] [address] [place] [address] Dr. Naz Crouch Glucose [Mass/Vol] 206 mg/dL Critically high 74-106 T [facility] Comment on above: Performed By: #### C MP, T4, TSH #### [facility] [address] [place] [address] Dr. Naz Crouch Potassium [Moles/Vol] 4.4 mmol/L Normal 3.5-5.1 [facility] Comment on above: Performed By: #### C MP, T4, TSH #### [facility] [address] [place] [address] Dr. Naz Crouch Protein [Mass/Vol] 7.0 g/dL Normal 6.4-8.2 [facility] Comment on above: Performed By: #### C MP, T4, TSH #### [facility] [address] [place] [address] Dr. Naz Crouch Sodium [Moles/Vol] 140 mmol/L Normal 136-145 [facility] Comment on above: Performed By: #### C MP, T4, TSH #### [facility] [address] [place] [address] Dr. Naz Crouch Urea nitrogen [Mass/Vol] 15.0 mg/dL Normal 7.0-18.0 [facility] Comment on above: Performed By: #### C MP, T4, TSH #### [facility] [address] [place], [place] [address] Dr. Naz Crouch Urea nitrogen/Creatinine [Mass ratio] 16.9 mg/mg Normal [facility] Comment on above: Performed By: #### C MP, T4, TSH #### [facility] [address] [address] [address] Naz Crouch T4on 04-22-2022 T4 [Mass/Vol] 4.60 ug/dL Critically low 4.80-13.90 [facility] Comment on above: Performed By: #### C MP, T4, TSH #### [facility] [address] [address] [address] Naz Crouch TSHon 04-22-2022 TSH 2.208 uIU/mL Normal 0.358-3.74 0 [facility] Comment on above: Performed By: #### C MP, T4, TSH #### [facility] [address] [address] [address] KIDNEY WO/W IVCONon 04-05 [facility] XR CHEST 2V FRONTAL/LATon [facility] Ambulatory Visit Summaryon 0 03-05-2022 Ambulatory Visit Summary ELMER ELLIS :1965 Visit Date:03/05/2022 Ambulatory Visit Instructions Your Diagnosis Right renal mass Incomplete bladder emptying Tests Performed Urnls Dip Stick Auto w/o Microscopy POC 12986 Your Care Team Attending Physician - Jluis [...] VENKAT SAWYER, RAPHAEL Jimenez When: Where: [address] [place] [address]- Someone Will Contact You Regarding These Appointments [facility] External Ambulatory Referral, Urology, [facility]. Renal mass, [...] Urnls Dip Stick Auto w/o Microscopy POC 49513 (03/05/2022) Bilirubin Urine Dipstick - 1+ Small Blood Urine Dipstick - Negative Glucose Urine Dipstick - 2+ 500 mg/dl Ketones Urine Dipstick - Trace - 5 mg/dl Leukocytes Urine Dipstick - Negative Nitrite Urine Dipstick - Negative Protein Urine Dipstick - 2+ (100 mg/dl) Specific Worth Urine Dipstick - >=1.030 Urine Appearance Urine [...] on the (more content not included)... Normal [facility] Patient Educationon 03-05-19 23 Patient Education [...] gives to you. In general: ? Take rdbc-xvo-xozuxgj and prescription medicines only as told by [...] 09/04/2014 Document Revised: 03/16/2018 Document Reviewed: 03/16/2018 [employer] Patient Education ? 2019 [employer]. [facility] Urology Office/Clinic Noteon 03-05-2022 Urology Office/Clinic [...] R partial nephrectomy. External referral placed to [facility]. Pt. understands her use of tobacco [...] Contact Information VENKAT SAWYER, Jluis Jacinto, URL [address] [place] [address]- Additional Instructions: Referral for renal mass Patient Education Renal Mass I, Sophy Simmons, personally scribed for Dr. Robledo on 03/05/2022 11:09:15. . Documentation recorded by the scribe, Sohpy Simmons, accurately reflects the services(s) I performed [...] 11/21/2020 Recorde (more content not included)... Normal [facility] Comment on above: Result Comment: Elec tronically Signed By: Jluis ROBLEDO MD\.br\Date and Time Signed: 03/05/22 11:17 EST\.br\Electronically Co-Signed By: Sophy Simmons\.br\Date and Time Co-Signed: 03/05/22 11:10 EST\.br\Electronically Co-Signed By: Sophy Simmons\.br\Date and Time Co-Signed: 03/05/22 11:11 EST Lab Reportson 02-05-2022 Lab Reports [id number]:127 Normal [facility] RAD - CT Reporton 02-05-2022 RAD - CT Report [id number]#1.00CD:127 Normal [facility] RAD - CT Report [id number]#1.00CD:[address] [facility] [address] ABD/PELV W CONon 02-03-20 CT [...] by: MICHOACANO MARTIN Date: 2022-02-02 08:28 Normal [facility] Reminderson 02-02-2022 Reminders - From: Tahmina Hanson To: EU - Recalls Venkat; Sent: 07/29/2021 07:40:04 EDT Show up: 12/22/2021 07:40:00 EDT Subject: Ct scan Reminder/Recall Pt needs Ct scan ABD/Pelvis with contrast prior to Dec appt will send order to [facility]. [facility] never received her order will re fax to [facility] nothing at [facility] yet and unable to get ahold of CS pt will call to schedule she doesnt have insurance. CT done 02/01/2022 at [facility] will drop results into pt's chart has f/u 03/01/2022 Normal [facility] CREATININEon 02-01-2022 Creatinine [Mass/Vol] 1.00 mg/dL Normal 0.55-1.02 [facility] Comment on above: Performed By: #### C SERGEY #### [facility] [address] [place] [address] Dr. Naz Crouch EGFR-AF [place]IZ[place] >60 Normal >=60 [facility] Comment on above: Performed By: #### C SERGEY #### [facility] [address] [address] [address] Naz Crouch EGFR-NON AF CITIZEN [place] 57 mL/min/1.73m2 Critically low >=60 [facility] Comment on above: Performed By: #### C SERGEY #### [facility] [address] [place] [address] Dr. Naz Crouch Physician Orderon 01-11-2022 Physician Order [id number]:127 [facility] CNOVon 11-09-2021 CNOV Office Visit (AGPOB1 ) ELMER ELLIS ([id number]) 1965 F Date Time Provider Department 9/19/22 [...] mg by mouth twice daily. MV with Wjw-Ylikokpy-Supppt (CENTRUM SILVER) 0.4 mg-300 mcg- 250 mcg tab Take by mouth. insulin 75/25 lispro protamine/lispro units/mL (HUMALOG MIX 75-25,U-100,INSULN) 100 units/mL susp as directed. HYDROcodone-acetaminophen (NORCO) 5-325 mg per tablet hydrocodone 5 mg-acetaminophen 325 mg tablet TAKE 1 TO 2 TABLETS BY MOUTH EVERY DAY AT BEDTIME NEEDED qpqncchz-sgj-jvnc-FA-lutein (CENTRUM SILVER WOMEN) 8 mg iron-400 mcg-300 [...] been ambula (more content not included)... Normal [facility] CNPNon 10-13-2021 CNPN Telephone (AGPOB1) ELMER ELLIS ([id number]) 1965 F Date Time Provider Department 10/13/21 [...] bear any weight. Patient has taken 1 Berlin about an hour ago and said it [...] by mouth twice daily. - MV with Cgg-Ljeuyaut-Rtkmkq (CENTRUM SILVER) 0.4 mg-300 mcg- 250 mcg tab Take by mouth. - insulin 75/25 lispro protamine/lispro units/mL (HUMALOG MIX 75-25,U-100,INSULN) 100 units/mL susp as directed. - HYDROcodone-acetaminophen (NORCO) 5-325 mg per tablet hydrocodone 5 mg-acetaminophen 325 mg tablet TAKE 1 TO 2 TABLETS BY MOUTH EVERY DAY AT BEDTIME NEEDED - wodurjmt-mqj-sogs-FA-lutein (CENTRUM SILVER WOMEN) 8 mg iron-400 mcg-300 [...] Encounter Status:Closed by FILOMENA MADRIGAL on 10/13/21 [facility] CNOVon 10-12-2021 CNOV Office Visit (AGPOB1 ) ELMER ELLIS ([id number]) 1965 F Date Time Provider Department 10/12/21 [...] mg by mouth twice daily. MV with Djz-Mazxbqjb-Cwfjwd (CENTRUM SILVER) 0.4 mg-300 mcg- 250 mcg tab Take by mouth. insulin 75/25 lispro protamine/lispro units/mL (HUMALOG MIX 75-25,U-100,INSULN) 100 units/mL susp as directed. HYDROcodone-acetaminophen (NORCO) 5-325 mg per tablet hydrocodone 5 mg-acetaminophen 325 mg tablet TAKE 1 TO 2 TABLETS BY MOUTH EVERY DAY AT BEDTIME NEEDED uiaecihp-ecm-xrzw-FA-lutein (CENTRUM SILVER WOMEN) 8 mg iron-400 mcg-300 [...] fracture sustaine (more content not included)... Normal [facility] CNOVon 09-21-2021 CNOV Office Visit (AGPOB1 ) ELMER ELLSI ([id number]) 1965 F Date Time Provider Department 09/21/21 [...] with nonweightbearing status. She will occasionally take Berlin for pain relief which is effective. She is also supplemented with cxve-ope-vvclass pain medications. Her medical history significant for Beatties, coronary artery disease, diabetes and associated lower extremity neuropathy, DVT requiring Plavix and Xarelto for anticoagulation. 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 She also has kidney cancer that is [...] by mouth twice daily. - MV with Acm-Pavtxalm-Adlgkw (CENTRUM SILVER) 0.4 mg-300 mcg- 250 mcg tab Take by mouth. - insulin 75/25 lispro protamine/lispro units/mL (HUMALOG MIX 75-25,U-100,INSULN) 100 units/mL susp as directed. - HYDROcodone-acetaminophen (NORCO) 5-325 mg per tablet hydrocodone 5 mg-acetaminophen 325 mg tablet TAKE 1 TO 2 TABLETS BY MOUTH EVERY DAY AT BEDTIME NEEDED - lkalsvcw-mve-hhwj-FA-lutein (CENTRUM SILVER WOMEN) 8 mg iron-400 mcg-300 [...] lateral med (more content not included)... Normal [facility] Osvaldo 09-16-2021 CORBY Telephone (AGPOB1) YECKLEY,ELMER M ([id number]) 1965 F Date Time Provider Department 09/16/21 [address] [address] During your visit today, we recorded the following information about you: Jared Alcantar J2Ee Engineer [facility] 09/16/2021 9:05 AM Signed ----- [...] which facility was the patient seen at: [facility] / 09.12.2021 Was an appointment scheduled (Y/N): n Person calling if other than patient: n Return call to if other than patient: n Best contact number: [phone] Thank you, Peggy Saxena September 15, 2021 4:27 PM Filomena Madrigal 09/16/2021 10:18 AM Signed Called and spoke to patient regarding L ankle fracture OS 09/12/21. Patient was seen at [facility] ED after falling she fell in the [...] Date: 09/16/2021 (None) Encounter Status:Closed by ERIKA PEANUT ROASTER JARED GARCIA on 09/16/21 [facility] HNO ID: [id number] Author: RT Herman(R) Service: Radiology Author Type: [...] RT Herman(R) September 12, 2021 2:38 PM [facility] HNO ID: [id number] Author: RT Alexandra(R) Service: Radiology Author Type: [...] Alexandra(R) September 12, 2021 12:21 PM [facility] CONSULTon 09-12-2021 CONSULT HNO ID: [id number] Author: Stoney Bauer MD Service: Orthopaedic Surgery Author Type: Resident Type: Consults Filed: 09/12/2021 11:43 PM Note Text: Attestation signed by Lilly Tony MD at 09/13/2021 6:54 PM Lilly Tony M.D. Attending Staff, Department of Orthopedic Surgery [facility] Orthopaedic Surgery Consultation Note Reason for [...] in the last 72 hours. Invalid input(s): [facility] Imaging XR of left tib/fib, ankle, foot: [...] MD September 12, 2021 11:43 PM [facility] ED NOTEon 09-12-2021 ED NOTE HNO ID: [id number] Author: Joi Mariscal RN Service: Emergency Medicine Author Type: Registered Nurse Type: ED Notes Filed: 09/12/2021 11:13 AM Note Text: X-ray notified pt ready for imaging. Normal [facility] ED PROV NOTEon 09-12-2021 ED PROV NOTE HNO ID: [id number] Author: Alexander Velázquez APRN.CNP Service: Emergency Medicine [...] pain medication and follow up with her aquarium specialist that she already has seen previous. Patient in no acute distress vitals are stable. RETURN PRECAUTIONS Patient discharged from the Emergency Department. I do not feel that the patient's evaluation reveals any acute reason for admission at this time. I instructed them to either follow up with their primary care physicia (more content not included)... [facility] XR ANKLE 1V LTon 09-12-2021 [...] alignment is otherwise stable. IMPRESSION: See above. Echo Tech: PSCB Transcribe Date/Time: Sep 12 2021 2:45P Dictated by : KEN MCKEON MD This examination was interpreted and the report reviewed and electronically signed by: KEN MCKEON MD on Sep 12 2021 2:46PM EST [id number] Normal [facility] XR ANKLE 3V AP/LAT/OBL LTon [...] Left foot first proximal phalangeal head fracture. Echo Tech: PSCB Transcribe Date/Time: Sep 12 2021 12:54P Dictated by : MOE SINGH MD This examination was interpreted and the report reviewed and electronically signed by: MOE SINGH MD on Sep 12 2021 1:00PM EST [id number] [facility] XR FOOT 3V AP/LAT/OBL LTon [...] Left foot first proximal phalangeal head fracture. Echo Tech: PSCB Transcribe Date/Time: Sep 12 2021 12:54P Dictated by : MOE SINGH MD This examination was interpreted and the report reviewed and electronically signed by: MOE SINGH MD on Sep 12 2021 1:00PM EST [id number] Normal [facility] XR KNEE 2V AP/LAT LTon [...] Left foot first proximal phalangeal head fracture. Echo Tech: LILLY Transcribe Date/Time: Sep 12 2021 12:54P Dictated by : MOE SINGH MD This examination was interpreted and the report reviewed and electronically signed by: MOE SINGH MD on Sep 12 2021 1:00PM EST [id number] Normal [facility] XR TIBIA FIBULA 2V AP/LAT [...] change regarding proximal fibular fracture. No dislocation. Echo Tech: [facility] Transcribe Date/Time: Sep 12 2021 3:23P Dictated by : NIMCO GREEN MD This examination was interpreted and the report reviewed and electronically signed by: NIMCO GREEN MD on Sep 12 2021 3:27PM EST [id number] Normal [facility] Formson 07-29-2021 Forms [id number]:127 [facility] Physician Referralon 022 Physician Referral [id number]:127 [facility] RAD - CT Reporton 07-29-2021 RAD - CT Report [id number]:127 [facility] Ambulatory Visit Summaryon 0 07-27-2021 Ambulatory Visit Summary ELMER ELLIS :1965 Visit Date:07/27/2021 Ambulatory Visit Instructions Your Diagnosis Right renal mass Nocturia Incomplete emptying of bladder Your Care Team Attending Physician - Jluis ROBLEDO MD Primary Care Physician - Dawit aB DO Referring Physician - Dawit Ba DO [...] [facility] [address] , [place] [phone] Medications What How Much When Instructions Unchanged [...] about calorie (more content not included)... Normal [facility] Patient Educationon 07-28-19 22 Patient Education [...] You could (more content not included)... Normal [facility] Urology Office/Clinic Noteon 07-27-2021 Urology Office/Clinic Note Chief Complaint new pt referred for renal mass HPI Staff Elmer is a 55yr old new pt referred for Renal mass. Pt had CT of ABD/pel done at [facility] on 06/15/21. pt says she feels [...] Jluis Jacinto, URL In 6 months 01/26/2022 [facility] [address], [place] [address]- [phone] Additional Instructions: [address] [...] SubCutaneous, BIDAC (more content not included)... [facility] Comment on above: Result Comment: Elec tronically Signed By: VENKAT SAWYER, Jluis Jacinto\.br\Date and Time Signed: 07/27/21 10:26 EDT\.br\Electronically Co-Signed By: Tahmina Hanson\.br\Date and Time Co-Signed: 07/27/21 10:21 EDT GLUCOSE METERon 12-16-2020 Glucose [Mass/Vol] 216 mg/dL High 70-99 [facility] Comment on above: Result Comment: Fast ing GLUCOSE reference range has been updated per (ADA) [place] [employer]'s recommendation. 05/16/2018 Physician notified Performed By: #### L 500.97080 #### Test performed at: [address] [address] Glucose [Mass/Vol] 273 mg/dL High 70-99 [facility] Comment on above: Result Comment: Fast ing GLUCOSE reference range has been updated per (ADA) [place] [employer]'s recommendation. 05/16/2018 Physician notified Performed By: #### L 500.10969 #### Test performed at: [place] [address] OPERATIVE REPORTon OPERATIVE REPORT NAME: BRIAN ELLIS MR#: [id number] SURGEON: Malik Encarnacion DO DATE OF SURGERY: [...] up in 2 weeks. MALIK ENCARNACION DO GF/MODL/[id number] E/S: Malik Encarnacion DO 12/24/[address] [facility] PT NAME: ELMER ELLIS MR#: [id number] [address] [place] [address] ACCT: [id number] : 65 OPERATIVE REPORT Normal [facility] MRI LUMBAR SP W & WO CONTRAS Ton 11-12-2020 MRI LUMBAR SP W & WO CONTRAST STUDY: MRI LUMBAR SP W WO CONTRAST; 11/12/2020 11:18 am INDICATION: LUMBAR POST-LAMINECTOMY SYNDROME. COMPARISON: Lumbar radiographs dated 09/02/2020 and MRI lumbar spine dated 10/31/2019. ACCESSION NUMBER(S): [id number] ORDERING CLINICIAN: Farhan Celeste TECHNIQUE: Multiplanar multisequence [...] granulation tissue components is again evident. Normal [facility] MRI LOW EXT ANY JNT WO CON L Ton 10-29-2020 MRI LOW EXT ANY JNT WO CON LT STUDY: MRI LOW EXT ANY JNT WO CON LT; ; 10/29/2020 11:42 am INDICATION: LEFT HIP PAIN. COMPARISON: None. ACCESSION NUMBER(S): [id number] ORDERING CLINICIAN: Farhan Celeste TECHNIQUE: MR imaging [...] hamstring tendinosis. No acute abnormality seen Normal [facility] LUMB SP COMP W FLEX/EXT 6 VW Son 09-02-2020 LUMB SP COMP W FLEX/EXT 6 VWS STUDY: LUMB SP COMP W FLEX/EXT 6 VWS ; 09/02/2020 11:01 am INDICATION: PAIN. COMPARISON: 10/17/2019 ACCESSION NUMBER(S): [id number] ORDERING CLINICIAN: Farhan Celeste FINDINGS: No acute [...] of the lumbar spine without instability. Normal [facility] MRA HEAD WO CONTRASTon 07-26 MRA HEAD WO CONTRAST [facility] Department of Radiology [address] [place] [id number] Patient Name: ELMER ELLIS : 1965 Sex: F Age: Race: White Pt. Location: Patient Status: D Ordered Date: 06/17/2020 10:35:00 AM Completed Date: 07/26/2020 10:58 AM Requesting Provider: MALIK NI V Attending Provider: MALIK NI V Report Copy To: Signs & Symptoms: H93.A3 Pulsatile tinnitus, bilateral I10 History: Chrissy X1 Stent, R Leg, [facility] April [address] [facility] auth# [id number] 06/25/20-08/09/20 *ER Comments: evaluate Exam: MRA HEAD [...] canals given the limitations of a large lpnmi-px-hrut imaging. IMPRESSION: * No aneurysm, thrombus or hemodynamically significant stenosis in the cerebral arteries. Electronically signed: Sharona Carrillo M.D.. Transcribed by: [email or web address], User Resident: Electronically Signed by: SHARONA CARRILLO @ 07/29/2020 08:07 AM Normal [facility] Comment on above: Order Comment: evalu ate MRI BRAIN WO CONTRASTon - MRI BRAIN WO CONTRAST [facility] Department of Radiology [address] [place] [id number] Patient Name: ELMER ELLIS : 1965 Sex: F Age: Race: White Pt. Location: 30 Patient Status: D Ordered Date: 06/17/2020 10:35:00 AM Completed Date: 07/26/2020 10:58 AM Requesting Provider: MALIK NI V Attending Provider: MALIK NI V Report Copy To: Signs & Symptoms: H93.A3 Pulsatile tinnitus, bilateral I10 History: [place] X1 Stent, R Leg, [facility] April [address] [facility] AUTH # [id number] 06/24/2020-08/08/2020 [id number] / Comments: evaluate Exam: MRI BRAIN WO [...] well as the dural venous sinuses. Large whyrh-sw-izlx evaluation of the internal auditory canals is negative for mass. IMPRESSION: * No acute intracranial findings. * Scattered, mild burden of nonspecific T2 weighted/FLAIR hyperintensities. Differential diagnosis includes sequelae of chronic small vessel ischemic disease, Lyme disease, vasculitis, chronic migraines, among others. Electronically signed: Sharona Carrillo M.D.. Transcribed by: [email or web address], User Resident: Electronically Signed by: SHARONA CARRILLO @ 07/29/2020 07:57 AM Normal [facility] Comment on above: Order Comment: evalu ate Vital Signs Date Time Vital Sign Value Performing Clinician Facility 03-24-2023 16:45-0500 Body height 162.6 cm Jenny Salima TAX ADVISOR Work Phone: [facility] 03-24-2023 16:45-0500 Body mass index (BMI) [Ratio] 45.93 kg/m2 Jenny Salima TAX ADVISOR Work Phone: [facility] 03-24-2023 16:45-0500 Body temperature 97.11 [degF] Jenny Salima TAX ADVISOR Work Phone: [facility] 03-24-2023 16:45-0500 Body weight 121.38 kg Jenny Gaylez TAX ADVISOR Work Phone: [facility] 03-24-2023 16:45-0500 Diastolic blood pressure 70 mm[Hg] Jenny Gaylez TAX ADVISOR Work Phone: [facility] 03-24-2023 16:45-0500 Heart rate 76 /min Jenny Gaylez TAX ADVISOR Work Phone: [facility] 03-24-2023 16:45-0500 Respiratory rate 20 /min Jenny Gaylez TAX ADVISOR Work Phone: [facility] 03-24-2023 16:45-0500 SaO2% (BldA) [Mass fraction] 97 % Jenny Salima TAX ADVISOR Work Phone: [facility] 03-24-2023 16:45-0500 Systolic blood pressure 112 mm[Hg] Jenny Salima TAX ADVISOR Work Phone: [facility] 10-15-2022 12:17-0400 Body weight 117.03 kg Lex Pickens MD Work Phone: [facility] 07-30-2022 09:06-0400 Body temperature 97.8 [degF] DO Dawit House Work Phone: [facility] 07-30-2022 09:06-0400 Body weight 115.66 kg DO Dawit House Work Phone: [facility] 07-30-2022 09:06-0400 Diastolic blood pressure 72 mm[Hg] DO Dawit House Work Phone: [facility] 07-30-2022 09:06-0400 Heart rate 82 /min DO Dawit House Work Phone: [facility] 07-30-2022 09:06-0400 Respiratory rate 16 /min DO Dawit House Work Phone: [facility] 07-30-2022 09:06-0400 SaO2% (BldA) [Mass fraction] 97 % DO Dawit House Work Phone: [facility] 07-30-2022 09:06-0400 Systolic blood pressure 128 mm[Hg] DO Dawit House Work Phone: [facility] 06-16-2022 09:38-0400 Body height 162.56 cm DO Dawit House Work Phone: [facility] 06-02-2022 15:31-0400 Diastolic blood pressure 66 mm[Hg] DO Dawit House Work Phone: [facility] 06-02-2022 15:31-0400 Heart rate 81 /min DO Dawit House Work Phone: [facility] 06-02-2022 15:31-0400 Respiratory rate 18 /min DO Dawit House Work Phone: [facility] 06-02-2022 15:31-0400 SaO2% (BldA) [Mass fraction] 96 % DO Dawit House Work Phone: [facility] 06-02-2022 15:31-0400 Systolic blood pressure 114 mm[Hg] DO Dawit House Work Phone: [facility] 06-02-2022 15:01-0400 Inhaled oxygen flow rate 8 L/min DO Dawit House Work Phone: [facility] 06-02-2022 12:090400 Body height 162.56 cm DO Dawit Ba Work Phone: [facility] 06-02-2022 12:09-0400 Body temperature 98.7 [degF] DO Dawit Ba Work Phone: [facility] 06-02-2022 12:09040 Body weight 117.93 kg DO Dawit Ba Work Phone: [facility] 03-16-2022 13:36-0500 Body height 162.6 cm Lex Pickens MD Work Phone: [facility] 03-16-2022 13:36-0500 Body weight 120.2 kg Lex Pickens MD Work Phone: [facility] 03-16-2022 13:36-0500 Diastolic blood pressure 80 mm[Hg] Lex Pickens MD Work Phone: [facility] 03-16-2022 13:36-0500 Heart rate 87 /min Lex Pickens MD Work Phone: [facility] 03-16-2022 13:36-0500 Systolic blood pressure 128 mm[Hg] Lex Pickens MD Work Phone: [facility] 10-12-2021 12:53-0400 Body height 162.6 cm Lilly Tony MD Work Phone: [facility] 10-12-2021 12:53-0400 Body weight 117.94 kg Lilly Tony MD Work Phone: [facility] 10-12-2021 12:53-0400 Respiratory rate 20 /min Lilly Tony MD Work Phone: [facility] 07-27-2021 09:31-0400 Blood Pressure Location Jluis VENKAT [facility] 07-27-2021 09:31-0400 Diastolic blood pressure 73 mm[Hg] Jluis ROBLEDO [facility] 07-27-2021 09:31-0400 Heart rate 89 /min Jluis ROBLEDO [facility] 07-27-2021 09:31-0400 Systolic blood pressure 120 mm[Hg] Jluis ROBLEDO [facility] Encounters Encounter Date Encounter Type Care Provider Facility Start: 08-18-2023 End: 08-18-2023 ambulatory [facility] Start: 08-08-2023 ambulatory Joanne Brown Facility:[facility] Start: 07-12-2023 End: 07-12-2023 ambulatory LISETTE CUMMINS Not Available Start: 06-23-2023 End: 06-23-2023 ambulatory JENNY BORREGO Not Available Start: 06-15-2023 End: 06-15-2023 [facility] Lex Pickens MD Work Phone: Urology Comment on above: Other specified diso rders of kidney and ureter (Primary Dx); Renal mass; Morbid obesity (HCC); Type 2 diabetes mellitus with diabetic neuropathy, with long-term current use of insulin (HCC) Start: 05-17-2023 End: 05-17-2023 ambulatory LEX PICKENS Facility:[facility] Start: 05-02-2023 End: 05-03-2023 ambulatory WALESKA VASQUEZ Not Available Start: 04-28-2023 Telephone encounter Angie marin APRN.CNP Work Phone: Hematology/Oncology Comment on above: Orders Start: 04-13-2023 End: 04-13-2023 ambulatory DO Dawit Ba Work Phone: [facility] Work Phone: Start: 04-13-2023 End: 04-13-2023 Patient encounter procedure DO Dawit Ba Work Phone: [facility] Work Phone: Start: 04-13-2023 Registered Recurring DO Maverick Ba Work Phone: [facility] Work Phone: Start: 04-05-2023 Refill Jenny Aichholz TAX ADVISOR Work Phone: [facility] Comment on above: Acute non-recurrent sinusitis of other sinus (Primary Dx) Start: 03-24-2023 End: 03-24-2023 Assay of hemosiderin, quant Jenny Aichholz TAX ADVISOR Work Phone: [facility] Start: 03-24-2023 End: 03-24-2023 Patient encounter procedure Jenny Aichholz TAX ADVISOR Work Phone: [facility] Comment on above: Encounter for annual wellness visit (AWV) in Medicare patient (Primary Dx); Type 2 diabetes mellitus with diabetic neuropathy, with long-term current use of insulin (CMS/HCC); 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 (CMS/HCC); Tobacco user; Malignant neoplasm of kidney, unspecified laterality (CMS/HCC); Type 2 diabetes mellitus with insulin therapy (CMS/HCC); Routine general medical examination at health care facility Start: 03-24-2023 End: 03-24-2023 Refill Jenny Aichholz TAX ADVISOR Work Phone: [facility] Comment on above: 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 (CMS/HCC) (Primary Dx) Start: 02-02-2023 End: 02-03-2023 ambulatory WALESKA Mccray APLING Not Available Start: 10-15-2022 End: 10-15-2022 [facility] Lex Pickens MD Work Phone: Urology Comment on above: Renal mass, right (P rimary Dx); Family history of renal cancer; Morbid obesity (HCC); Current every day smoker; Other specified disorders of kidney and ureter Start: 10-15-2022 End: 10-15-2022 ambulatory LEX PICKENS Facility:[facility] Start: 10-07-2022 End: 10-07-2022 ambulatory LEX PICKENS Facility:[facility] Start: 06-18-2022 End: 06-19-[address] DAWIT BA Facility: Start: 06-02-2022 End: 06-02-2022 Admission to same day surgery center DO Dawit Ba Work Phone: [facility] Start: 06-02-2022 End: 06-02-2022 ambulatory DO Dawit Ba Work Phone: [facility] Work Phone: Start: 04-22-2022 End: 04-23-[address] DAWIT BA Facility: Start: 04-09-2022 End: 04-10-2022 [facility] Lex Pickens MD Work Phone: Urology [...] V Leiden (HCC); Coronary artery disease involving douglas heart without angina pectoris, unspecified vessel or lesion type; Smoker; Morbid obesity (HCC); Other specified disorders of kidney and ureter; Renal mass Start: 03-05-2022 End: 03-06-2022 ambulatory MD Jluis ROBLEDO Facility:[facility] Start: 03-05-2022 End: 03-05-2022 Patient encounter procedure Jluis ROBLEDO [facility] Start: 02-01-2022 End: 02-02-[address] DAWIT BA Facility: Start: 11-09-2021 End: 11-09-2021 ambulatory DAWIT BA SR Facility:[facility] Start: 10-13-2021 Telephone encounter Lilly pruitt MD Work Phone: [facility] Comment on above: Patient Update Start: 10-12-2021 End: 10-12-2021 ambulatory DAWIT MADI BA SR Facility:[facility] Start: 10-12-2021 End: 10-12-2021 Patient encounter procedure Lilly Tony MD Work Phone: [facility] Comment on above: Closed fracture of l eft ankle, initial encounter (Primary Dx) Start: 09-21-2021 End: 09-21-2021 ambulatory LILLY TONY Facility:[facility] Start: 09-16-2021 Telephone encounter Ag Orth Work Phone: [facility] Comment on above: ER F/U Start: 09-12-2021 End: 09-12-2021 Emergency department patient visit DAWIT BA Facility:[facility] Start: 09-03-[address] DAWIT BA Facili ty:[facility] Start: 07-27-2021 End: 07-28-2021 ambulatory MD Jluis ROBLEDO Facility:[facility] Start: 07-27-2021 End: 07-27-2021 Patient encounter procedure Jluis ROBLEDO [facility] Start: 06-24-2021 ambulatory MD Jluis ROBLEDO Facil ity:[facility] Procedures Date Procedure Procedure Detail Performing Clinician Start: 11-19-2022 Mammography Jenny beckett TAX ADVISOR Work Phone: Start: 06-02-2022 Esophagogastroduodenoscopy DO Dawit Ba Work Phone: Start: 06-02-2022 Colonoscopy Jenny beckett TAX ADVISOR Work Phone: Abdominal hysterectomy Tatiana ROBLEDO Appendectomy Jluis ROBLEDO Bilateral tubal ligation Elayne ROBLEDO Cholecystectomy Jluis COXE RS Plan of Treatment Date Care Activity Detail Author Start: 06-02-2032 Screening for malign ant neoplasm of colon [facility] Start: 07-28-2025 Diabetes Screening Diabetes Screenin g [facility] Start: 03-24-2024 Medicare Annual Well ness (AWV) Medicare Annual Wellness (AWV) [facility] Start: 11-20-2023 Screening for malign ant neoplasm of breast Mammogram [facility] Start: 10-20-2023 Glaucoma screening Diabetes: R etinopathy Screening [facility] Start: 10-12-2023 Hemoglobin A1c measurement HbA1C [facility] Start: 09-28-2023 Urine screening for protein Diabetes: Urine Protein Screening [facility] Start: 06-23-2023 End: 06-23-2023 Patient encounter procedure 06/23/2023 10:30 AM EDT Office Visit [facility] [address] [place] [address] Jenny Borrego, ZELALEM [address] [place] [address] [facility] Start: 05-17-2023 End: 08-16-2023 CREATININE BLD CREATININE BLD Lab Routine Renal mass Expected: 05/17/2023 (Approximate), Expires: 08/16/2023 [facility] Work Phone: Comment on above: Expected: 05/17/2023 (Approximate), Expires: 08/16/2023 Start: 04-22-2023 End: 03-24-2024 Hemoglobin A1c measurement Hemoglobin A1c Lab Routine Type 2 diabetes mellitus with diabetic neuropathy, with long-term current use of insulin ([facility]) Expected: 04/22/2023 (Approximate), Expires: 03/24/2024 [facility] Work Phone: Comment on above: Expected: 04/22/2023 (Approximate), Expires: 03/24/2024 Start: 04-13-2023 Erythropoietin (EPO) [Units/volume] in Serum or Plasma [facility] Start: 04-13-2023 End: 04-13-2023 [facility] Start: 04-12-2023 Hemoglobin A1c measurement Diabetes: Hemoglobin A1C [facility] Start: 03-16-2023 [facility] Start: 02-21-2023 Behavioral Health Screening Behavioral Health Screening [facility] Start: 02-21-2023 Depression Assessment Depression Ass [facility] Start: 02-11-2023 [facility] Start: 01-26-2023 Shingrix Vaccine (2 of 2) Shingrix Vaccine (2 of 2) [facility] Start: 12-20-2022 [facility] Start: 10-22-2022 Covid-19 Vaccine () Covid-19 Vaccine () [facility] Start: 10-22-2022 Influenza vaccination C [facility] Start: 10-07-2022 End: 05-09-2023 Ct abdomen w/o & w/contrast material CT KIDNEY WO/W IVCON Radiology Routine Other specified disorders of kidney and ureter Expected: 10/07/2022, Expires: 05/09/2023 [facility] Work Phone: Comment on above: Expected: 10/07/2022 , Expires: 05/09/2023 Start: 07-26-2022 [facility] Start: 07-06-2022 [facility] Start: 07-01-2022 [facility] Start: 06-23-2022 End: 06-23-2022 [facility] Start: 06-23-2022 End: 06-23-2022 [facility] Start: 06-23-2022 [facility] Start: 06-02-2022 [facility] Start: 06-02-2022 [facility] Start: 04-05-2022 End: 06-05-2022 CREATININE BLD CREATININE BLD Lab Routine Renal mass Expected: 04/05/2022, Expires: 06/05/2022 [facility] Work Phone: Comment on above: Expected: 04/05/2022 , Expires: 06/05/2022 Start: 01-01-2023 DEPRESSION ASSESSMENT DEPRESSION ASS ESSMENT [facility] Start: 10-22-2021 Influenza vaccination INFLUENZA (#1) [facility] Start: 06-25-2021 COVID-19 VACCINE (4 - Booster for Pfizer series) COVID-19 VACCINE (4 - Booster for Pfizer series) [facility] Start: 04-22-2021 COVID-19 VACCINE (4 - Booster for Pfizer series) COVID-19 VACCINE (4 - Booster for Pfizer series) [facility] Start: 04-22-2021 COVID-19 VACCINE (4 - Pfizer series) COVID-19 VACCINE (4 - Pfizer series) [facility] Start: 07-23-2017 Pneumococcal vaccination Pneum ococcal Vaccine (2 of 2 - PCV) [facility] Start: 11-06-2015 SHINGRIX VACCINE (1 of 2) SHINGRIX VACCINE (1 of 2) [facility] Start: 2010 COLOGUARD (FIT-DNA) COLOGUARD (FIT-D NA) [facility] Start: 2010 Colonoscopy COLONOSCOPY [facility] Start: 2010 COLORECTAL CANCER SCREENING COLORECTAL CANCER SCREENING [facility] Start: [address] COLONOGRAPHY [facility] Start: 2010 DIABETES SCREEN DIABETES SCREEN [facility] Start: 2010 FECAL OCCULT BLOOD FECAL OCCULT BLOO D [facility] Start: 2010 Lipid panel Lipid Screening [facility] Start: 2010 LIPID SCREEN LIPID SCREEN [facility] Start: 2010 Screening for malign ant neoplasm of colon [facility] Start: 2010 SIGMOIDOSCOPY SIGMOIDOSCOPY [facility] Start: 2005 Mammography MAMMOGRAM [facility] Start: 2005 Screening for malign ant neoplasm of breast Mammogram Screening [facility] Start: 11-06-1995 HPV TESTING HPV TESTING [facility] Start: 11-06-1995 Screening for malign ant neoplasm of cervix [facility] Start: 1986 PAP TESTING PAP TESTING [facility] Start: 1986 Screening for malign ant neoplasm of cervix [facility] Start: 1984 Hepatitis B Vaccine (1 of 3 - 19+ 3-dose series) Hepatitis B Vaccine (1 of 3 - 19+ 3-dose series) [facility] Start: 09-15-1985 Urine microalbumin profile [facility] Start: 11-06-1983 ANNUAL PCP TEAM MOLD CAR PUSHER ABIOLA DISEASE VISIT ANNUAL PCP TEAM CHRONIC DISEASE VISIT [facility] Start: 11-06-1983 Hepatitis B surface antibody level LDL CHOLESTEROL [facility] Start: 11-06-1983 HEPATITIS C SCREENING HEPATITIS C [facility] Start: 11-06-1983 Hepatitis C screening Hepatitis C [facility] Start: 11-06-1983 HIV SCREENING HIV SCREENING [facility] Start: 11-06-1983 HIV screening HIV Screening [facility] Start: 1977 Adult depression screening assessment DEPRESSION SCREENING [facility] Start: 11-06-1975 Diabetic foot examination Diabetic Foot Exam [facility] Start: 11-06-1975 Glaucoma screening Dilated Retinal E xam [facility] Start: 11-06-1975 Hepatitis B screening Urine Albumin:Creatinine Ratio [facility] Start: 11-06-1971 PNEUMOCOCCAL (1 - PCV) PNEUMOCOCCAL (1 - PCV) [facility] Start: 1965 HEPATITIS B (1 of 3 - 3-dose series) HEPATITIS B (1 of 3 - 3-dose series) [facility] Start: 1965 Hepatitis B Vaccine (1 of 3 - 3-dose series) Hepatitis B Vaccine (1 of 3 - 3-dose series) [facility] Start: 1965 Screening for malign ant neoplasm of colon [facility] metabo lic 2000 panel - Serum or Plasma [facility] End: 07-14-2024 CT Abdomen W contrast IV CT ABDOMEN W IVCON Radiology Routine Other specified disorders of kidney and ureter 1 Occurrences starting 06/15/2023 until 07/14/2024 [facility] Work Phone: Comment on above: 1 Occurrences starti ng 06/15/2023 until 07/14/2024 End: 11-15-2023 Ct abdomen w/o & w/contrast material CT KIDNEY WO/W IVCON Radiology Routine Renal mass, right Other specified disorders of kidney and ureter 1 Occurrences starting 10/16/2022 until 11/15/2023 [facility] Work Phone: Comment on above: 1 Occurrences starti ng 10/16/2022 until 11/15/2023 Erythropoietin (EPO) [Units/volume] in Serum or Plasma [facility] Glucose measurement estimated from glycated hemoglobin [facility] Methylmalonate [Moles/volume] in Serum or Plasma [facility] URINALYSIS, REFLEX MICROSCOPIC URINALYSIS, REFLEX MICROSCOPIC Lab Routine Screening for genitourinary condition Ordered: 10/15/2022 [facility] Work Phone: Comment on above: Ordered: 10/15/2022 XR ANKLE GENERAL 3V AP/LAT/OBL LEFT XR ANKLE GENERAL 3V AP/LAT/OBL LEFT Radiology Routine Closed fracture of left ankle, initial encounter Ordered: 10/12/2021 [facility] Work Phone: Comment on above: Ordered: 10/12/2021 [facility] Immun[facility] Immunization Date Immunization Notes Care Provider [facility] 12-01-2022 influenza, injectabl e, quadrivalent, preservative free Jenny Aichholz TAX ADVISOR Work Phone: [facility] 12-01-2022 zoster vaccine recombinant Jenny Aichholz TAX ADVISOR Work Phone: [facility] 12-18-2021 influenza virus vacc ine, unspecified formulation Jluis ROBLEDO [facility] 12-18-2021 Influenza, injectabl e, Madin Harrington Canine Kidney, preservative free, quadrivalent Jenny Aichholz TAX ADVISOR Work Phone: [facility] 02-25-2021 influenza virus vacc ine, unspecified formulation Jluis ROBLEDO [facility] 02-25-2021 influenza, injectabl e, quadrivalent, preservative free Jenny Aichholz TAX ADVISOR Work Phone: [facility] 02-25-2021 SARS-CoV-2 (COVID-19 ) mRNA [id number]-[id number] vax Jluis ROBLEDO [facility] 11-21-2020 influenza virus vacc ine, unspecified formulation Jluis ROBLEDO [facility] 11-12-2020 influenza virus vacc ine, unspecified formulation Jluis ROBLEDO [facility] 06-19-2020 SARS-CoV-2 mRNA (tozinameran 5y-11y) vaccine Jluis ROBLEDO [facility] 05-29-2020 SARS-CoV-2 mRNA (tozinameran 5y-11y) vaccine Jluis ROBLEDO [facility] 10-17-2018 influenza virus vacc ine, unspecified formulation Jluis ROBLEDO [facility] 10-17-2018 influenza, injectabl e, quadrivalent, preservative free Jenny Aichholz TAX ADVISOR Work Phone: [facility] 11-23-2017 influenza virus vacc ine, unspecified formulation Jluis ROBLEDO [facility] 11-23-2017 influenza, injectabl e, quadrivalent, preservative free Jenny Aichholz TAX ADVISOR Work Phone: [facility] 10-20-2017 influenza virus vacc ine, unspecified formulation Jluis ROBLEDO [facility] 10-20-2017 influenza, injectabl e, quadrivalent, preservative free Jenny Aichholz TAX ADVISOR Work Phone: [facility] 11-22-2016 influenza virus vacc ine, unspecified formulation Jluis ROBLEDO [facility] 11-22-2016 influenza, injectabl e, quadrivalent, preservative free Jenny Aichholz TAX ADVISOR Work Phone: [facility] 11-06-2016 influenza virus vacc ine, unspecified formulation Jluis ROBLEDO [facility] 11-06-2016 influenza, injectabl e, quadrivalent, preservative free Jenny Aichholz TAX ADVISOR Work Phone: [facility] 07-23-2016 pneumococcal polysaccharide vaccine, 23 valent Jluis ROBLEDO [facility] Payers Date Payer Category Payer Medicaid MEDICAID [facility] MEDICAID [id number] 2022-Present [phone] [address] [place] [address] Medicaid [id number] 2022 Private Health Insurance [id number] 2019 Medicare MEDICARE MEDICAR E A AND B [id number] 2019-Present [phone] [address] [address] [place] [address] Medicare [id number] 2019 Medicare [id number] 2019 Private Health Insurance [facility] CHOICE PLUS [id number] 2019-Present [phone] [address] [place] [address] O [id number] 2019 Private Health Insurance [facility] CHOICE PLUS [id number] 2019-Present [phone] [address] [place] [address] O [id number] 2019 Unknown [id number] 1965 Unknown [id number] 2.16.840.1.099899.3.579.2. 727 1965 Unknown [id number] 2.16.840.1.277846.3.579.2. 727 1965 Unknown [id number] 2.16.840.1.311218.3.579.2. 727 1965 Unknown [id number] 2.16.840.1.757999.3.579.2. 593 1965 Unknown [id number] 2.16.840.1.861758.3.579.2. 593 1965 Unknown [id number] 2.16.840.1.651819.3.579.2. 593 1965 Unknown [id number] 2.16.840.1.158613.3.579.2. 593 1965 Unknown [id number] 2.16.840.1.549783.3.579.2. 1259 1965 Unknown [id number] 2.16.840.1.659463.3.579.2. 1259 1965 Unknown [id number] 2.16.840.1.894183.3.579.2. 1259 1965 Unknown [id number] 2.16.840.1.554758.3.579.2. 1259 1965 Unknown [id number] 2.16.840.1.563950.3.579.2. 1259 1965 Unknown [id number] 2.16.840.1.695046.3.579.2. 1258 1965 Unknown [id number] 2.16.840.1.301473.3.579.2. 1259 1965 Unknown [id number] 2.16.840.1.952770.3.579.2. 1259 1959 Medicaid [id number] 1959 Medicare [id number] 1959 Private Health Insurance [id number] 1959 Self-pay [id number] Medicare [id number] Unknown Lj BC/BS [id number] Unknown [id number] 2.16.840.1.213099.3.579.2. 531 Social History Date Type Detail Facility Start: 07-27-2021 End: 03-05-2022 Tobacco smoking status Heavy tobacco smoker (finding) [facility] Start: 10-15-2022 End: 03-24-2023 Sex Assigned At Female [facility] Tobacco smoking stat NHIS Tobacco smoking consumption unknown [facility] Start: 1965 Sex Assigned At Not on file C [facility] Start: 09-02-2021 End: 10-12-2021 Exposure to SARS-CoV-2 (event) Not sure [facility] Start: 10-12-2021 End: 01-10-2023 Tobacco smoking status NHIS Smokes tobacco daily [facility] History of tobacco use Cigarette Smoker C [facility] Start: 10-12-2021 End: 01-10-2023 Tobacco use and exposure Smokeless tobacco non-user [facility] Start: 10-12-2021 End: 10-15-2022 Alcohol intake Ex-drinker (finding) [facility] Start: 06-02-2022 End: 07-30-2022 Tobacco smoking status NHIS Smoker (finding) [facility] Start: 1965 Sex Assigned At Female F [facility] Start: 10-15-2022 End: 03-24-2023 History of Social function [facility] National Score (1-10 0), lower number is lower risk 63 [facility] Within the last year , have [...] Text Equipment Identifier Dates USE TWICE DAILY [id number] Start: 02-12-2023 Goals Date Patient Goal Desired Activity /State Functional Status Date Assessment Result Facility 03-05-2022 Functional Status N/A [facility] Clinical Notes 07-27-2021 to 08-18-2023 Lex Pickens MD - 06/15/2023 11:00 AM EDTTelephone Encounter - Josie Leong RN - 04/28/2023 12:15 PM Robert Borrego NP - 03/24/2023 7:10 PM Robert Borrego NP - 03/24/2023 7:07 PM EST Note Date & Type Note Facility 08-18-2023 Note [facility] Subjective Elmer Ellis is a 57 [...] History of deep vein thrombosis Intermittent claudication ([facility]/HCC) Tobacco dependence syndrome Smoker Renal mass Other specified disorders of kidney and ureter Morbid obesity ([facility]/HCC) Intermittent palpitations Abnormal PFT Abnormal stress test Anemia Anxiety and depression Arthritis Arthritis of left acromioclavicular joint Bilateral lower extremity edema Cancer of kidney ([facility]/HCC) Chondromalacia of left patella Chronic back pain Chronic bronchitis ([facility]/HCC) Chronic cough 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 ([facility]) Diabetic neuropathy, painful ([facility]) Encounter for annual wellness visit (AWV) in Medicare patient Environmental and seasonal allergies Family history of lung cancer Gallstone Gastroesophageal reflux disease without esophagitis History of varicose veins Incomplete bladder emptying Internal derangement of left knee Internal derangement of right knee Intestinal malabsorption, unspecified Iron deficiency anemia Lumbosacral plexus lesion Mucopurulent chronic bronchitis ([facility]) Neuropathy ELENA (obstructive sleep apnea) Osteoporosis Other [...] Xarelto for that. She reports that Dr. aB told her that she will need to [...] are equal, r (more content not included)... [facility] 06-15-2023 Note HNO ID: [id number] Author: LEX PICKENS MD Service: ? Author Type: Physician Type: Progress Notes Filed: 06/15/2023 12:22 Note Text: VIRTUAL VISIT PROGRESS NOTE This is a virtual visit using [employer]irmed[employer] Video Visit. It required patient-provider interaction for the medical decision making as documented below. I have communicated my name and active licensure. The patient's identity and physical location were verified at the time of this visit. Either the patient or their legal bilingual inside sales representative has been informed of the risks [...] mg by mouth twice daily. MV with Snl-Sgxgkpxf-Wghxlo (CENTRUM SILVER) 0.4 mg-300 mcg- 250 mcg tab Take by mouth. (Patient not taking: Reported on 03/16/2022) insulin 75/25 lispro protamine/lispro units/mL (HUMALOG MIX 75-25,U-100,INSULN) 100 units/mL susp as directed. HYDROcodone-acetaminophen (NORCO) 5-325 mg per tablet hydrocodone 5 mg-acetaminophen 325 mg tablet TAKE 1 TO 2 TABLETS BY MOUTH EVERY DAY AT BEDTIME NEEDED mwedpzqf-gey-gwks-FA-lutein (CENTRUM SILVER WOMEN) 8 mg iron-400 mcg-300 [...] release 24 hr (more content not included)... [facility] 06-15-2023 History of Present illness Narrative VIRTUAL VISIT PROGRESS NOTE This is a virtual visit using [employer]irmed[employer] Video Visit. It required patient-provider interaction for the medical decision making as documented below. I have communicated my name and active licensure. The patient's identity and physical location were verified at the time of this visit. Either the patient or their legal bilingual inside sales representative has been informed of the risks [...] mg by mouth twice daily. MV with Fko-Edsrmlkt-Ivjdal (CENTRUM SILVER) 0.4 mg-300 mcg- 250 mcg tab Take by mouth. (Patient not taking: Reported on 03/16/2022) insulin 75/25 lispro protamine/lispro units/mL (HUMALOG MIX 75-25,U-100,INSULN) 100 units/mL susp as directed. HYDROcodone-acetaminophen (NORCO) 5-325 mg per tablet hydrocodone 5 mg-acetaminophen 325 mg tablet TAKE 1 TO 2 TABLETS BY MOUTH EVERY DAY AT BEDTIME NEEDED bnxrqzxl-osl-ewpq-FA-lutein (CENTRUM SILVER WOMEN) 8 mg iron-400 mcg-300 [...] which included preparing to see the patient, jpuf-dd-hyor patient care, and counseling and educating the patient/family/caregiver Lex Pickens MD documented in this encounter [facility] 05-17-2023 Note HNO ID: [id number] Author: FRANCO LACY RT(R) Service: Radiology Author [...] PATIENT PRESENTS WITH AN IMPLANTABLE OR ATTACHED CUPBOARD BUILDER: No RADIOLOGY DEPARTMENT: CT; Exam(s) Completed: Kidney PERIPHERAL IV DATA: Site assessment: Clean,Dry and Intact, Site disposition Discontinued 20g right forearm SIGNED BY: RT José Miguel(R) May 17, 2023 2:00 PM [facility] 05-17-2023 Note HNO ID: [id number] Author: JOI GREENE RN Service: ? Author [...] SIGNATURE: Joi Greene RN PATIENT NAME: Elmer lElis DATE: May 17, 2023 TIME: 2:02 PM [facility] 04-28-2023 Miscellaneous Notes Please sign pended Cre for upcoming CT. Pt needs updated lab before CT can be done Thank You! Josie Leong RN documented in this encounter [facility] 03-24-2023 History of Present illness Narrative Associated Problem(s): Encounter for annual wellness visit (AWV) in Medicare patient Reviewed Ht/Wt/BMI Recommend eye exam yearly Recommend dental exams twice a year Balance work/leisure activities Exercises is recommended most days of the week (appropriate as chronic conditions allow) Follow up yearly and prn Associated Problem(s): Type 2 diabetes mellitus with insulin therapy ([facility]) Check blood sugars daily, notify if <70 [...] in March Associated Problem(s): Cancer of kidney ([facility]) Continue with specialty for monitoring Associated Problem(s): 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 She does not see a ecd.Eye exam is current. 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 ([facility] Cancer of kidney ([facility]) Chronic back pain Chronic bronchitis ([facility]) Chronic cough Cigarette nicotine dependence Cough Diabetes mellitus type 2 in obese ([facility]) 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 ([facility]) Diabetic neuropathy, painful ([facility]) Factor V Leiden ([facility]) Factor 5 Leiden deficiency Family history of cancer High cholesterol ([facility]) History of DVT (deep vein thrombosis) history of DVT no PE History of kidney cancer History of pancreatitis History of pneumonia History of varicose veins Intermittent claudication ([facility]) Kidney problem spot on kidney Mucopurulent chronic bronchitis ([facility]) Neuropathy ELENA (obstructive sleep apnea) Osteoporosis ([facility]) Pneumonia Sinusitis Tobacco user Type 2 diabetes mellitus with insulin therapy ([facility]) 03/24/2023 Past Surgical History: Procedure Laterality Date [...] List Items Addressed This Visit 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 (CMS/HCC) No acute angina symptoms Cont current meds Goal: control BP, diabetes, lipids, and QUIT smoking Tobacco user Recommend quitting, pt declines Cancer of kidney ([facility]) Continue with specialty for monitoring Type 2 diabetes mellitus with diabetic neuropathy, with long-term current use of insulin ([facility]) Relevant Orders Hemoglobin A1c Type 2 diabetes mellitus with insulin therapy ([facility]) Check blood sugars daily, notify if <70 [...] MINI PEN NEEDLES 31G X 5 MM [facility] [employer] USE TWICE DAILY cilostazol (Pletal) 100 MG tablet TAKE 1 TABLET BY MOUTH TWICE A DAY DIRECTED Oral for 90 clopidogrel (Plavix) 75 MG tablet 1 (one) time each day at the same time. Continuous Blood Gluc Sensor (FreeStyle Joelle 2 Sensor) [facility] USE TO TEST BLOOD SUGAR 4 TIMES [...] Yes Vision Screening: Yes, patient sees regular bobbin cleaner/stacker driver Hearing Screening: Not done Cognitive Screening Self Assessment: No overt cognitive deficiency is apparent by direct observation Three Word Registration: Banana, [place], Chair Clock Drawing: Normal Clock - 2 Three Word Recall: All 3 words correct - 3 Pain Assessment Pain Score: 0 - No pain Advance Care Planning Do you have a living will?: No Do you have a medical power of gastrointestinal technician?: No Objective : BP 112/70 (BP Location: [...] March 24, 2023 documented in this encounter [facility] 10-15-2022 Note Patient Outreach (UR OLMN) ELMER ELLIS ([id number]) 1965 F Date Time Provider Department 10/15/22 LEX PICKENS During your visit today, we recorded the following information about you: Allergies As of Date: 10/15/2022 (No Known Allergies) Date Reviewed: 10/15/2022 Reviewed by: Angie Mcclellan APRN.SENIOR CARE PROVIDER - Fully Assessed Visit Diagnosis:Screening for genitourinary condition [Z13.89] Order(s):URINALYSIS, REFLEX MICROSCOPIC [KPN1980] Order #: [id number] Prescriptions as of 10/18/2022 - DULoxetine (CYMBALTA) [...] by mouth twice daily. - MV with Xqv-Hsbruetr-Bwktek (CENTRUM SILVER) 0.4 mg-300 mcg- 250 mcg tab Take by mouth. - insulin 75/25 lispro protamine/lispro units/mL (HUMALOG MIX 75-25,U-100,INSULN) 100 units/mL susp as directed. - HYDROcodone-acetaminophen (NORCO) 5-325 mg per tablet hydrocodone 5 mg-acetaminophen 325 mg tablet TAKE 1 TO 2 TABLETS BY MOUTH EVERY DAY AT BEDTIME NEEDED - jljnnbai-hrr-ymuz-FA-lutein (CENTRUM SILVER WOMEN) 8 mg iron-400 mcg-300 [...] (HCC) [D68.51] 04/19/2022 Coronary artery disease involving douglas heart *04/19/2022 Smoker [F17.200] 04/19/2022 Morbid obesity (HCC) [E66.01] 04/19/2022 Other specified disorders of kidney and ureter *04/19/2022 Encounter Status:Closed by [employer] GroupUSER on 10/18/22 [facility] 10-15-2022 Note HNO ID: [id number] Author: Angie Mcclellan APRN.SENIOR CARE PROVIDER Service: ? Author Type: Nurse Practitioner Type: Progress Notes Filed: 10/16/2022 9:14 AM Note Text: VIRTUAL VISIT PROGRESS NOTE This is a virtual visit using Return Path video visit. It required patient-provider interaction for the medical decision making as documented below. I have communicated my name and active licensure. The patient's identity and physical location were verified at the time of this visit. Either the patient or their legal bilingual inside sales representative has been informed of the risks [...] mg by mouth twice daily. MV with Wjd-Vlueflzf-Lmpjbm (CENTRUM SILVER) 0.4 mg-300 mcg- 250 mcg tab Take by mouth. (Patient not taking: Reported on 03/16/2022) insulin 75/25 lispro protamine/lispro units/mL (HUMALOG MIX 75-25,U-100,INSULN) 100 units/mL susp as directed. HYDROcodone-acetaminophen (NORCO) 5-325 mg per tablet hydrocodone 5 mg-acetaminophen 325 mg tablet TAKE 1 TO 2 TABLETS BY MOUTH EVERY DAY AT BEDTIME NEEDED galrdnrs-qij-vtpk-FA-lutein (CENTRUM SILVER WOMEN) 8 mg iron-400 mcg-300 mcg tab furosemide (LASIX) 40 mg tablet furosemide 40 mg tablet TAKE 1 AND 1/2 TABLETS BY MOUTH DAILY clopidogrel (PLAVIX) 75 mg tablet clopidogrel 75 mg tablet TAKE 1 TABLET BY MOUTH EVERY DAY metoprolol succinate ER (TOPROL XL) 25 mg 24 hr tablet met (more content not included)... [facility] 10-15-2022 History of Present illness Narrative VIRTUAL VISIT PROGRESS NOTE This is a virtual visit using Return Path video visit. It required patient-provider interaction for the medical decision making as documented below. I have communicated my name and active licensure. The patient's identity and physical location were verified at the time of this visit. Either the patient or their legal bilingual inside sales representative has been informed of the risks [...] mg by mouth twice daily. MV with Lpt-Mdwhapqh-Sreluk (CENTRUM SILVER) 0.4 mg-300 mcg- 250 mcg tab Take by mouth. (Patient not taking: Reported on 03/16/2022) insulin 75/25 lispro protamine/lispro units/mL (HUMALOG MIX 75-25,U-100,INSULN) 100 units/mL susp as directed. HYDROcodone-acetaminophen (NORCO) 5-325 mg per tablet hydrocodone 5 mg-acetaminophen 325 mg tablet TAKE 1 TO 2 TABLETS BY MOUTH EVERY DAY AT BEDTIME NEEDED zpmfvfly-mrz-qioh-FA-lutein (CENTRUM SILVER WOMEN) 8 mg iron-400 mcg-300 [...] which included preparing to see the patient, sjxm-gw-fchs patient care, completing clinical documentation, counseling and educating the patient/family/caregiver, and ordering medications, tests, or procedures Angie Mcclellan APRN.SENIOR CARE PROVIDER documented in this encounter [facility] 10-07-2022 Note HNO ID: [id number] Author: Christel Hua RT([place]) Service: ? Author [...] RT Luan(R) October 07, 2022 10:33 AM [facility] 04-09-2022 History of Present illness Narrative [...] mg by mouth twice daily. MV with Lcc-Pziazyyq-Onqwmn (CENTRUM SILVER) 0.4 mg-300 mcg- 250 mcg tab Take by mouth. (Patient not taking: Reported on 03/16/2022) insulin 75/25 lispro protamine/lispro units/mL (HUMALOG MIX 75-25,U-100,INSULN) 100 units/mL susp as directed. HYDROcodone-acetaminophen (NORCO) 5-325 mg per tablet hydrocodone 5 mg-acetaminophen 325 mg tablet TAKE 1 TO 2 TABLETS BY MOUTH EVERY DAY AT BEDTIME NEEDED kvpatult-hxx-fzbx-FA-lutein (CENTRUM SILVER WOMEN) 8 mg iron-400 mcg-300 [...] prescribing physician. I25.10 Coronary artery disease involving douglas heart without angina pectoris, unspecified vessel or [...] Lex Pickens MD documented in this encounter [facility] 03-19-2022 Miscellaneous Notes Please sign pending Cre order for upcoming CT with contrast on 04/05/22. Thank you. Joi Austin RN documented in this encounter [facility] 03-16-2022 History of Present illness Narrative Referring [...] prescribing physician. I25.10 Coronary artery disease involving douglas heart without angina pectoris, unspecified vessel or [...] Lex Pickens MD documented in this encounter [facility] 03-05-2022 Hospital Discharge instructions Patient Education 03/05/2022 [...] provider gives to you. In general: Take pnpi-njf-vtxrptm and prescription medicines only as told by [...] 09/04/2014 Document Revised: 03/16/2018 Document Reviewed: 03/16/2018 [employer] Patient Education 2020 [employer]. Follow Up Care 07/27/2021 10:19:10 With:VENKAT SAWYER, Jluis Jacinto, URL Address: [address] [place] [address]- When: Unknown [facility] 11-09-2021 Note HNO ID: [id number] Author: Lilly Tony MD Service: ? Author [...] mg by mouth twice daily. MV with Dqm-Sbwyykob-Umymul (CENTRUM SILVER) 0.4 mg-300 mcg- 250 mcg tab Take by mouth. insulin 75/25 lispro protamine/lispro units/mL (HUMALOG MIX 75-25,U-100,INSULN) 100 units/mL susp as directed. HYDROcodone-acetaminophen (NORCO) 5-325 mg per tablet hydrocodone 5 mg-acetaminophen 325 mg tablet TAKE 1 TO 2 TABLETS BY MOUTH EVERY DAY AT BEDTIME NEEDED vrademws-zjn-chmf-FA-lutein (CENTRUM SILVER WOMEN) 8 mg iron-400 mcg-300 [...] activity without re (more content not included)... [facility] 10-19-2021 Note HNO ID: [id number] Author: Lilly Tony MD Service: ? Author [...] mg by mouth twice daily. MV with Cqg-Vaowidcv-Pumtkz (CENTRUM SILVER) 0.4 mg-300 mcg- 250 mcg tab Take by mouth. insulin 75/25 lispro protamine/lispro units/mL (HUMALOG MIX 75-25,U-100,INSULN) 100 units/mL susp as directed. HYDROcodone-acetaminophen (NORCO) 5-325 mg per tablet hydrocodone 5 mg-acetaminophen 325 mg tablet TAKE 1 TO 2 TABLETS BY MOUTH EVERY DAY AT BEDTIME NEEDED ryhdewxe-gpa-riky-FA-lutein (CENTRUM SILVER WOMEN) 8 mg iron-400 mcg-300 [...] lower extremity. S (more content not included)... [facility] 10-18-2021 History of Present illness [...] mg by mouth twice daily. MV with Rte-Crkpczsf-Qqwhpl (CENTRUM SILVER) 0.4 mg-300 mcg- 250 mcg tab Take by mouth. insulin 75/25 lispro protamine/lispro units/mL (HUMALOG MIX 75-25,U-100,INSULN) 100 units/mL susp as directed. HYDROcodone-acetaminophen (NORCO) 5-325 mg per tablet hydrocodone 5 mg-acetaminophen 325 mg tablet TAKE 1 TO 2 TABLETS BY MOUTH EVERY DAY AT BEDTIME NEEDED ohrnelhd-pym-ooha-FA-lutein (CENTRUM SILVER WOMEN) 8 mg iron-400 mcg-300 [...] Lilly Tony MD documented in this encounter [facility] 10-13-2021 Miscellaneous Notes Received voicemail from [...] bear any weight. Patient has taken 1 Berlin about an hour ago and said it is not helping the pain at all. Advised I would send message to and call patient once direction is received. Patient understood and had no further questions. Filomena Madrigal October 13, 2021 11:23 AM documented in this encounter [facility] 09-22-2021 Note HNO ID: [id number] Author: Lilly Tony MD Service: ? Author [...] with nonweightbearing status. She will occasionally take Berlin for pain relief which is effective. She is also supplemented with gkxd-zzr-jdgswpt pain medications. Her medical history significant for Beatties, coronary artery disease, diabetes and associated lower extremity neuropathy, DVT requiring Plavix and Xarelto for anticoagulation. 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 She also has kidney cancer that is [...] by mouth twice daily. - MV with Utj-Mnlmijnd-Homyaf (CENTRUM SILVER) 0.4 mg-300 mcg- 250 mcg tab Take by mouth. - insulin 75/25 lispro protamine/lispro units/mL (HUMALOG MIX 75-25,U-100,INSULN) 100 units/mL susp as directed. - HYDROcodone-acetaminophen (NORCO) 5-325 mg per tablet hydrocodone 5 mg-acetaminophen 325 mg tablet TAKE 1 TO 2 TABLETS BY MOUTH EVERY DAY AT BEDTIME NEEDED - nvkgpdjn-uil-tuzs-FA-lutein (CENTRUM SILVER WOMEN) 8 mg iron-400 mcg-300 [...] lymphadenopathy Peripheral Pulses (more content not included)... [facility] 09-16-2021 Miscellaneous Notes Called and spoke to patient regarding L ankle fracture OS 09/12/21. Patient was seen at [facility] ED after falling she fell in the [...] facility was the patient seen at: - [facility] / 09.12.2021 Was an appointment scheduled (Y/N): n Person calling if other than patient: n Return call to if other than patient: n Best contact number: [phone] Thank you, Peggy Wigginsno September 15, 2021 4:27 PM documented in this encounter [facility] 07-27-2021 Hospital Discharge instructions Patient Education 07/27/2021 [...] provider gives to you. In general: Take wskb-lal-qkwdpro and prescription medicines only as told by [...] 09/04/2014 Document Revised: 03/16/2018 Document Reviewed: 03/16/2018 [employer] Patient Education 2020 [employer]. 07/27/2021 10:06:53 Calorie Counting for Weight Loss [...] 02/07/2006 Document Revised: 10/27/2018 Document Reviewed: 01/07/2017 [employer] Patient Education [employer]. Follow Up Care 06/24/2021 14:48:04 With:VENKAT SAWYER, Jluis Jacinto, URL Address: [facility] [address], [place] [address]- [phone] When:01/26/2022 Comments:[address] scan [facility] Evaluation + Plan note Future Appointments Appointment Date:02/01/2022 11:15:00 AM Scheduled Provider:Jluis ROBLEDO MD Location:[facility] Appointment Type:URO Office Visit Diagnostic Tests PendingBUN 07/27/21Creatinine 07/27/21 [facility] Evaluation + Plan note [facility] Evaluation note Diagnosis Closed fracture of left ankle, initial encounter- Primary [facility] Diagnosis Renal mass- Primary Unspecified disorder of kidney and ureter [facility] Diagnosis Renal mass, right- Primary Unspecified disorder of kidney and ureter Factor V Leiden (HCC) Primary hypercoagulable state Coronary artery disease involving douglas heart without angina pectoris, unspecified vessel or lesion type Smoker Tobacco use disorder Morbid obesity (HCC) Morbid obesity 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 mass Unspecified disorder of kidney and ureter [facility] Diagnosis Other specified disorders of kidney and ureter- Primary [facility] Work Phone: Evaluation note* Diagnosis Renal mass, right- Primary Unspecified disorder of kidney and ureter Family history of renal cancer Family history of malignant neoplasm of kidney Morbid obesity (HCC) Morbid obesity Current every day smoker Tobacco use disorder Other specified disorders of kidney and ureter [facility]* Diagnosis Screening for genitourinary condition Screening for other and unspecified genitourinary condition [facility] Diagnosis Encounter for annual wellness visit (AWV) in Medicare patient- Primary Type 2 diabetes mellitus with diabetic neuropathy, with long-term current use of insulin (CMS/HCC) 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 (CMS/HCC) Tobacco user Tobacco use disorder Malignant neoplasm of kidney, unspecified laterality (CMS/HCC) Type 2 diabetes mellitus with insulin therapy ([facility]/HCC) Routine general medical examination at health care facility Routine general medical examination at a health care facility documented in this encounter [facility]* Diagnosis 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 (CMS/HCC)- Primary documented in this encounter [facility]* Diagnosis Acute non-recurrent sinusitis of other sinus- Primary documented in this encounter [facility]* Diagnosis Onset Date Resolution Status Iron deficiency anemia acute [facility] Work Phone: Evaluation note* Diagnosis Renal mass- Primary Unspecified disorder of kidney and ureter [facility]* Diagnosis Other specified disorders of kidney and ureter- Primary Renal mass Unspecified disorder of kidney and ureter Morbid obesity (HCC) Morbid obesity Type 2 diabetes mellitus with diabetic neuropathy, with long-term current use of insulin ([facility]) [facility] Narrative No data available for this section [facility] progress note No data available for this section [facility] reason for referral (narrative)* Diagnostic Procedure Only (Routine) - Pending Review Specialty Diagnoses / Procedures Referred By Contac t Referred To Contact XR IMAGING Diagnoses Closed fracture of left ankle, initial encounter Procedures XR ANKLE GENERAL 3V AP/LAT/OBL LEFT RADEX ANKLE COMPLETE MINIMUM 3 VIEWS Lilly Tony MD [address] [address] Xr Imaging Referral ID Status Reason Start Date Expiration Date Visits Requested Visits Authorized [id number] Pending Review Auto-Generat ed Referral 10/12/2021 11/11/2022 1 1 [facility] for referral (narrative) Referred by: VENKAT SAWYER, Jluis Jacinto [facility] [place] Summary Purpose Family History No Family History Records Found Relationship Condition Age at Onset Recorded Date/T moi Not Specified Myocardial infarction Unknown Diabetes mellitus Unknown Hypertension Unknown sister Malignant neoplasm of lung Unknown father Diabetes mellitus Unknown Transient ischemic attack Unknown Advance Directives No Advanced Directives Records FoundDocuments on File Type Date Recorded 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 Advance Directive(s) 09/12/2021 2:13 PM [...] W & W/O CONTRAST Lex Pickens MD [id number] [facility] [place] [address] Referral ID Status Reason Start Date Expiration Date Visits Requested Visits Authorized [id number] Pending Review Auto-Generat ed Referral 10/16/2022 11/15/2023 1 1 Specialty Diagnoses / Procedures Referred By April valdez Referred To Contact CT IMAGING Diagnoses Other specified disorders of kidney and ureter Procedures CT KIDNEY WO/W IVCON CT ABDOMEN W & W/O CONTRAST Judson Quiroga MD [id number] Referral ID Status Reason Start Date Expiration Date V isits Requested Visits Authorized [id number] Closed Auto-Generate d Referral 03/16/2022 04/15/2023 1 1 Chief Complaint and Reason for Visit Chief Complaint Anemia, Lower Hemogl obin Chief Complaint Anemia E11.40 Z79.4 Reason for Visit Iron deficiency anem ia Additional Source Comments INFORMATION SOURCE (unrecogn ized section and content) DATE CREATED AUTHOR 12/25/2020 [facility] DATE CREATED AUTHOR AUTHOR'S ORGANIZ ATION 07/25/2021 [facility] DATE CREATED AUTHOR AUTHOR'S ORGANIZ ATION 11/22/2021 [facility] DATE CREATED AUTHOR AUTHOR'S ORGANIZ ATION 03/05/2022 [facility] DATE CREATED AUTHOR AUTHOR'S ORGANIZ ATION 06/25/2022 [facility] DATE CREATED AUTHOR AUTHOR'S ORGANIZ ATION 06/16/2023 [facility] DATE CREATED AUTHOR AUTHOR'S ORGANIZ ATION 07/14/2023 [facility] EP[facility] DATE CREATED AUTHOR AUTHOR'S ORGANIZ ATION 08/08/2023 [facility] DATE CREATED AUTHOR AUTHOR'S ORGANIZ ATION 08/19/2023 [facility] Source Comments (unrecognize d section and content) In the event this informatio n is protected by the Federal Confidentiality of Alcohol and Drug Abuse Patient Records regulations: The Federal rules restrict any use of the information to criminally investigate or prosecute any alcohol or drug abuse patient.[facility] the event this information is protected by the Federal Confidentiality of Alcohol and Drug Abuse Patient Records regulations: The Federal rules restrict any use of the information to criminally investigate or prosecute any alcohol or drug abuse patient.[facility] the event this information is protected by the Federal Confidentiality of Alcohol and Drug Abuse Patient Records regulations: The Federal rules restrict any use of the information to criminally investigate or prosecute any alcohol or drug abuse patient.[facility] the event this information is protected by the Federal Confidentiality of Alcohol and Drug Abuse Patient Records regulations: The Federal rules restrict any use of the information to criminally investigate or prosecute any alcohol or drug abuse patient.[facility] the event this information is protected by the Federal Confidentiality of Alcohol and Drug Abuse Patient Records regulations: The Federal rules restrict any use of the information to criminally investigate or prosecute any alcohol or drug abuse patient.[facility] the event this information is protected by the Federal Confidentiality of Alcohol and Drug Abuse Patient Records regulations: The Federal rules restrict any use of the information to criminally investigate or prosecute any alcohol or drug abuse patient.[facility] the event this information is protected by the Federal Confidentiality of Alcohol and Drug Abuse Patient Records regulations: The Federal rules restrict any use of the information to criminally investigate or prosecute any alcohol or drug abuse patient.[facility] the event this information is protected by the Federal Confidentiality of Alcohol and Drug Abuse Patient Records regulations: The Federal rules restrict any use of the information to criminally investigate or prosecute any alcohol or drug abuse patient.[facility] the event this information is protected by the Federal Confidentiality of Alcohol and Drug Abuse Patient Records regulations: The Federal rules restrict any use of the information to criminally investigate or prosecute any alcohol or drug abuse patient.[facility] the event this information is protected by the Federal Confidentiality of Alcohol and Drug Abuse Patient Records regulations: The Federal rules restrict any use of the information to criminally investigate or prosecute any alcohol or drug abuse patient.[facility] Reason for Visit (unrecogniz ed section and content) Reason Comments ER F/U Reason Comments Patient Update Reason Comments Established Patient Follow Up Reason Comments Orders CT Reason Comments Consult Reason Comments Follow Up Reason Comments Orders Care Teams (unrecognized sec tion and content) Loom Changeover Operator Relationship Specialty Start Date End Date Dawit Ba Sr. PCP - General Family Practice 10/24/14 Loom Changeover Operator Relationship Specialty Start Date End Date Dawit Ba Sr. PCP - General Family Practice 10/24/14 Loom Changeover Operator Relationship Specialty Start Date End Date Dawit Ba Sr. PCP - General Family Practice 10/24/14 Loom Changeover Operator Relationship Specialty Start Date End Date Dawit Ba Sr. PCP - General Family Medicine 10/24/14 Loom Changeover Operator Relationship Specialty Start Date End Date Dawit Ba Sr. PCP - General Family Medicine 10/24/14 Loom Changeover Operator Relationship Specialty Start Date End Date Dawit Ba Sr. PCP - General Family Medicine 10/24/14 Team Status: Active Member Role Status Dates Dawit Ba , Primary Care Provider Active Team Status: Inactive Member Role Status Dates Dawit Ba , Primary Care Provider Active Bebo Sims DO Attending Provider Active Loom Changeover Operator Relationship Specialty Start Date End Date Dawit Ba Sr. PCP - General Family Medicine 10/24/14 Loom Changeover Operator Relationship Specialty Start Date End Date Dawit Ba Sr. PCP - General Family Medicine 10/24/14 Loom Changeover Operator Relationship Specialty Start Date End Date Ludin Blanchard MD PCP - General Family Medicine 10/06/22 Jenny Borrego NP [address] [place] [address] Nurse Practitioner [facility] Medicine 12/27/22 Loom Changeover Operator Relationship Specialty Start Date End Date Ludin Blanchard MD PCP - General Family Medicine 10/06/22 Jenny Borrego NP [address] [place] [address] Nurse Practitioner Family Medicine 12/27/22 Loom Changeover Operator Relationship Specialty Start Date End Date Ludin Blanchard MD PCP - General Family Medicine 10/06/22 Jenny Borrego NP [address] [place] [phone] Nurse Practitioner [facility] 12/27/22 Team Status: Active Member Role Status [...] April 13, 2023 End: April 13, 2023 Loom Changeover Operator Relationship Specialty Start Date End Date Dawit Ba Sr., PCP - General Family Medicine 10/24/14 Loom Changeover Operator Relationship Specialty Start Date End Date Dawit [...] BE BASED ON THE PRIMARY CLINICAL RECORDS. [facility]. provides no warranty or guarantee of the accuracy or completeness of information in this document.
[2023-09-19] MEDS: REGADENOSON 0.4 MG/5 ML SYRINGE IV (12:37)
--- NOTE | 2023-09-19 12:40 | PC.NURSE ---
Nursing Note Cardiac Stress Test Reviewed: Medication, allergies and patient history reviewed. Stress Test: [ x] Patient tolerated stress test well. [ ] Patient unable to tolerate walking on treadmill. Switched to Lexiscan stress test. [ x] No chest pain noted per patient [ ] Chest pain that resolved prior to leaving stress lab. [ ] No dyspnea noted. [x ] Dyspnea that resolved prior to leaving stress lab. [ x] Patient left stress lab asymptomatic and hemodynamically stable. [ ] Patient taken to the Emergency Room due to non-resolving symptoms following stress test. [ ] Patient achieved target heart rate. [ ] Patient unable to achieve target heart rate. [ ] Aminophylline administered as reversal agent to Lexiscan (Regadenoson). [ ] Nitro administered. Nursing Comments: Patient complained of some shortness of breath directly after the administration of the lexiscan but it was resolved prior to leaving the stress lab. Patient did have some dizziness with position change following the test. Patient stated it was not abnormal and this occurs following lexiscan for her and she is a diabetic who was NPO for the test. Patient was taken to the cafeteria by wheelchair but reported feeling improved prior to leaving the stress lab.
== END 2023-09-19 11:54 | disposition home or self-care (01) ==
LOC: CARD 11:53
PROVIDERS: PCP Nurse Practitioner; Visit Provider Internal Medicine Interventional Cardiology
DX: I25.10 Atherosclerotic heart disease of native coronary artery without angina pectoris (principal); R06.02 Shortness of breath
CPT/HCPCS: 93017; J2785

== ENCOUNTER 2023-09-26 09:58 | Outpatient (OUT) | payer MEDICARE, SELFPAY ==
--- NOTE | 2023-09-26 10:08 | US_ITS ---
The [address] [address] Patient Name: ELMER ELLIS MRN: [id number] date: 1965 Sex: F Assigned Patient Location: Current Patient Location: Accession/Order Number: [id number] Exam Date: 09/26/2023 10:10 Report Date: 09/27/2023 08:40 At the request of: BILLIE MURILLO Procedure: US right upper quadrant EXAM: US right upper quadrant HISTORY: . Elevated Alkaline Phosphatase Level R74.8 . COMPARISON: None. TECHNIQUE: Grayscale and color imaging was performed FINDINGS: The body of pancreas appears normal. The head and tail was obscured due to overlying bowel gas. Scanning of the liver demonstrates diffuse increased echogenicity of liver consistent with fatty infiltration of liver. Portions of the liver were obscured due to overlying bowel gas. Color-flow is noted in the portal and hepatic veins. Common bile duct measures 5 mm. Right kidney measures 10.2 x 5.7 x 5.1 cm. Color-flow is noted. No solid renal cortical masses or hydronephrosis was noted. The gallbladder is absent. No fluid is noted in the right upper quadrant US/US right upper quadrant IMPRESSION: 1. Limited exam due to patient's body habitus and overlying bowel gas. 2. The body of the pancreas appears normal. The head and tail was obscured due to overlying bowel gas. 3. Portions of the liver were obscured due to overlying bowel gas. Visualized portions of liver demonstrate increased echogenicity consistent with fatty infiltration of liver. 4. The gallbladder is absent. 5. The remainder the right upper quadrant was unremarkable. Electronically authenticated by: GIL ESQUIVEL Date: 09/27/2023 08:40
== END 2023-09-26 09:59 | disposition home or self-care (01) ==
LOC: US 09:58
PROVIDERS: PCP Nurse Practitioner; Visit Provider Nurse Practitioner
DX: R74.8 Abnormal levels of other serum enzymes (principal)
CPT/HCPCS: 76705

== ENCOUNTER 2023-11-19 19:40 | Emergency (ER) | payer MEDICARE, SELFPAY ==
[2023-11-19 19:43] VITALS: BP 114/40; PULSE 88; TEMP 36.9; O2SAT 98; BMI 46.3
--- OUTSIDE RECORDS SUMMARY | 2023-11-19 19:47 | XMS_ITS | CCD ---
Author Organization [facility] access hospital [facility] Care Team Providers Care Chief Clerk Shelter Name Role Phone Dawit Ba Primary Care Physician [place] Sr., Dawit Aviles Primary Care Provider [place] Sr., Dawit Aviles Primary Care Provider KITTITAS SR, DAWIT AVILES Primary Care Unavai lable HOUSE SR, DAWIT MADI Primary Care Unavai lable LILLY TONY Attending Unavailable TONY, LILLY Attending Unavailable HOUSE SR, DAWIT [facility] Care Unavai lable HOUSE SR, DAWIT [facility] Care UnavaLILLY Phan Attending Unavailable MD Jluis ROBLEDO Attending Unavailable House, Dawit Hong Referring Unavail able MD Jluis ROBLEDO Attending Unavailable [place] Sr., Dawit Aviles Primary Care Provider DO Dawit Ba Primary Care Provider DO Bebo Sims Attending Provider [phone] HOUSE, DR PRITCHETT Attending Unavailable KITTITAS, DR PRITCHETT Consulting Unavailable KITTITAS, DR PRITCHETT Primary Care Unavailable KITTITAS, DR PRITCHETT Admitting Unavailable KITTITAS, DR PRITCHETT Attending Unavailable HOUSE, DR PRITCHETT Consulting Unavailable KITTITAS, DR PRITCHETT Primary Care Unavailable HOUSE, DR PRITCHETT Admitting Unavailable HOUSE, DR PRITCHETT Primary Care Unavailable VENKAT ., DR KING Attending Unavailable ROBLEDO ., DR KING Consulting Unavailable ROBLEDO ., DR KING Admitting [facility]available [facility] DR MICHOACANO Jacinto Consulting Unavailable KITTITAS, DR PRITCHETT Attending Unavailable HOUSE, DR PRITCHETT Primary Care Unavailable KITTITAS, DR PRITCHETT Admitting Unavailable Ludin Blanchard MD Primary Care Provider Salima MICROFILM CLERK, Jenny Unavailable DO Dawit Ba Referring Provider CJ Brown Attending Provider Jenny Borrego Primary Care Provider Jenny Borrego Attending Provider [phone] House Sr., Dawit US Primary Care Prov ider House Sr., Dawit US Primary Care Provider LEX PICKENS Attending Unavailable HOUSE SR, DAWIT Hong Primary Care Unavailable LEX PICKENS Referring Unavailable HOUSE SR, DAWIT Hong Primary Care Unavailable FRIDA, LEX Ortiz Attending Unavailable HOUSE SR, DAWIT Hong Primary Care Unavailable FRIDA, LEX Ortiz Referring Unavailable HOUSE SR, DAWIT Hong Primary Care Unavailable AICHHOLJuany, JENNY Attending Unavailable APLING, WALESKA Mccray Attending Unavailable APLING, WALESKA Mccray Attending Unavailable APLING, WALESKA Mccray Referring Unavailable AICHHOLZ, JENNY Attending Unavailable DATLISETTE Attending Unavailable APLING, WALESKA Mccray Referring Unavailable AICHHOLZ, JENNY Attending Unavailable Dembosrubén, Joanne Crespo Attending Unavail able AicJenny carrasco Primary Care Unavailable Dawit Ba Referring Unavailable DemJoanne osborne Admitting Unavail able MOUKAMALIK COMER Attending Unavailable MOUKARBEL, MALIK Attending Unavailable MOUKARBEL, MALIK Admitting Unavailable MOUKARBEL, MALIK Attending Unavailable Allergies Allergy Classification Reported Allergen(s) Allergy Type Date of Onset Reaction(s) Facility (1 source) Gluten Drug allergy (disorder) [facility] (1 source) Wheat preparation Drug Allergy [facility] (1 source) Misc-Food; Translations: [Misc-Food] Food allergy (disorder) [facility] Medications Current Medications Medication Drug Class(es) Dates Sig (Normalized) Sig (Original) acetaminophen 325 mg / HYDROcodone bitartrate 5 mg oral tablet (20 sources) Opioid Agonist take 1 tablet by tyrese th every eight hours as needed HYDROcodone-Acetami nophen 5-300 mg tab Take 1 tablet by mouth every 8 hours as needed for pain. Active take 1-2 tablets by mouth once daily at bedtime as needed HYDROcodone-acetaminophen (NORCO) 5-325 mg per tablet hydrocodone 5 mg-acetaminophen 325 mg tablet TAKE 1 TO 2 TABLETS BY MOUTH EVERY DAY AT BEDTIME NEEDED Active Comment on above: hydrocodone 5 mg-roxanne [...] 0 Active atorvastatin 80 mg oral tablet (20 sources) HMG-CoA Reductase Inhibitor Start: 07-26-2021 take 1 tablet by mouth once daily atorvastatin (LIPITOR) 80 mg tablet Take 80 mg by mouth once daily. 07/26/2021 Active Comment on above: Take 80 mg by mouth once daily. Centrum Silver (2 sources) Start: 07-27-2021 Centrum Silver Oral, Daily, Refill(s) 0 Start Date: 07/27/21 Status: Ordered cholecalciferol 0.125 mg oral tablet (13 sources) Vitamin D Start: 07-27-2021 cholecalciferol (VITAMIN D3) 5,000 unit tab Vitamin D3 Refills(s) 0 Start Date: 07/27/21 Status: Ordered 07/27/2021 Active Comment on above: Vitamin D3 Refills(s ) 0 Start Date: 07/27/21 Status: Ordered cilostazol 100 mg oral tablet (4 sources) Phosphodiesterase 3 Inhibitor take 1 tablet by mouth twice daily cilostazol (Pletal) 100 MG tablet TAKE 1 TABLET BY MOUTH TWICE A DAY DIRECTED Oral for 90 0 Active clopidogrel 75 mg oral tablet (20 sources) P2Y12 Platelet Inhibitor Start: 07-27-2021 End: 06-22-2023 take 1 tablet by mouth once daily clopidogrel (PLAVIX) 75 mg tablet clopidogrel 75 mg tablet TAKE 1 TABLET BY MOUTH EVERY DAY 07/27/2021 Active Comment on above: clopidogrel 75 [...] DULoxetine 60 mg delayed release oral capsule (20 sources) Serotonin and Norepinephrine Reuptake Inhibitor Start: [...] TAKE 1 CAPSULE BY MOUTH EVERY DAY 07/27/2021 Active Comment on above: duloxetine 60 mg cap tammy,delayed release TAKE 1 CAPSULE BY MOUTH EVERY DAY duloxetine 60 mg Cap-DR (2 sources) Start: 07-28-19 take 1 mg by mouth once daily duloxetine 60 mg Cap-DR mg, Oral, Daily, Refills(s) 0 Start Date: 07/27/21 Status: Ordered esomeprazole mag/glycerin (ESOMEP-EZS ORAL) (13 sources) esomeprazole mag/glycerin (ESOMEP-EZS ORAL) Take by mouth. Active esomeprazole mag /glycerin (ESOMEP-EZS ORAL) Take by mouth. 0 Active Comment on above: Take by mouth. ferrous sulfate 325 mg oral tablet (6 sources) Start: 06-02-2022 take 325 mg by mouth once daily Ferrous Sulfate Active 325 MG PO Daily June 01, 2022 11:00pm Luz (17 sources) Histamine-1 Receptor Antagonist Start: 07-27-2021 Luz Oral, Refills(s) 0 Start Date: 07/27/21 Status: Ordered take 1 tablet by tyrese once daily fexofenadine (LUZ) 180 mg tablet fexofenadine 180 mg tablet TAKE 1 TABLET BY MOUTH EVERY DAY Active End: 03-24-2023 fexofenadine (Luz Allerg y) 60 MG tablet Luz 0 03/24/2023 Discontinued (Therapy completed) Comment on above: fexofenadine 180 mg tablet TAKE 1 TABLET BY MOUTH EVERY DAY furosemide 40 mg oral tablet (20 sources) Loop Diuretic Start: 2 furosemide (LASIX) 40 mg tablet furosemide 40 mg tablet TAKE 1 AND 1/2 TABLETS BY MOUTH DAILY 07/27/2021 Active Comment on above: furosemide 40 mg tab let TAKE 1 AND 1/2 TABLETS BY MOUTH DAILY gabapentin 800 mg oral tablet (20 sources) Anti-epileptic Agent Start: 4 End: 4 [...] Start: 08-25-2021 take 2 capsules by m [facility] twice daily gabapentin (NEURONTIN) 300 mg capsule Take 600 mg by mouth twice daily. 08/25/2021 Active Start: 07-27-2021 take 1 capsule by mo [facility] twice daily gabapentin 300 mg Cap 300 [...] lispro protamine, human 75 unt/ml injectable suspension (16 sources) Insulin Analog Start: 07-27-2021 End: 03-24-2023 insulin 75/25 lispro protamine/lispro units/mL (HUMALOG MIX 75-25,U-100,INSU LN) 100 units/mL susp as directed. 07/27/2021 Active Start: 07-27-2021 Humalog 75/25 Injection-Insulin unit(s), SubCutaneous, BIDAC, Refills(s) 0 Start Date: 07/27/21 Status: Ordered Comment on above: as directed. metFORMIN hydrochloride 1000 mg oral tablet (15 sources) Biguanide Start: take 1 tablet by mouth twice daily metFORMIN (GLUCOPHAGE) 1,000 mg tablet Take 1,000 mg by mouth twice daily. 09/13/2021 Active Comment on above: Take 1,000 mg by tyrese th twice daily. methocarbamol 500 mg oral tablet (19 sources) Muscle Relaxant Start: take 500 mg [...] 50MG TABLET FOR 75 MG TOTAL DAILY) 07/27/2021 Active Start: 07-27-2021 take 1 tablet by tyrese th once daily metoprolol succinate ER (TOPROL XL) 50 mg 24 hr tablet metoprolol succinate ER 50 mg tablet,extended release 24 hr TAKE 1 TABLET BY MOUTH EVERY DAY 07/27/2021 Active Start: 07-27-2021 take 1 tablet [...] (Centrum Silver 50+Women) tablet Orally 0 Active jcxiudyw-bbf-cpjd-FA-lute in (CENTRUM SILVER WOMEN) 8 mg iron-400 mcg-300 mcg tab (13 sources) uxstecbv-qac-svy n-FA-lut ein (CENTRUM SILVER WOMEN) 8 mg iron-400 mcg-300 mcg tab Active oxvuwnyy-fpm-pfe n-FA-lutein (CENTRUM SILVER WOMEN) 8 mg iron-400 mcg-300 mcg tab MV with Lst-Tnhwtlgo-Tulnyv (CENTRUM SILVER) 0.4 mg-300 mcg- 250 mcg tab (13 sources) Start: 07-27-2021 take 1 tablet by mouth once MV with Zsb-Gycxysep-Ypcgot (CENTRUM SILVER) 0.4 mg-300 mcg- 250 mcg tab Take by mouth. 07/27/2021 Active Start: 07-27-2021 MV with Min-Ly copene-Lutein (CENTRUM SILVER) 0.4 mg-300 mcg- 250 mcg tab Take by mouth. 0 07/27/2021 Active Comment on above: Take by mouth. pantoprazole 40 mg delayed release oral tablet (5 sources) Proton Pump Inhibitor Start: 3 take 40 mg by mouth once daily Pantoprazole Active 40 MG PO Daily June 15, 2022 11:00pm rivaroxaban 10 mg oral tablet (20 sources) Factor Xa Inhibitor Start: 2 rivaroxaban (XARELTO) 10 mg tablet Xarelto 10 mg tablet 07/27/2021 Active Comment on above: Xarelto 10 mg tablet Vitamin D3 (2 sources) Start: 2 Vitamin D3 Refills(s) 0 Start Date: 07/27/21 [...] 3 02-02-2023 Chronic Coagulation and hemorrhagic disorders (13 sources) Factor V Leiden mutation; Translations: [Activated protein C resistance] Onset: 3 Chronic Coronary atherosclerosis and other heart disease (20 sources) Coronary arteriosclerosis; Translations: [Atherosclerotic heart disease of [place] coronary artery without angina pectoris] Onset: [...] Episodic Other diseases of kidney and ureters (17 sources) Disorder of kidney and/or ureter; Translations: [...] Chronic Other nutritional; endocrine; and metabolic disorders (11 sources) Morbid obesity; Translations: [Morbid (severe) obesity [...] unspecified] Onset: 3 02-02-2023 Episodic Substance-related disorders (16 sources) Smoker; Translations: [Nicotine dependence, unspecified, uncomplicated] [...] Test Name Value Interpretation Reference Range Facility BASIC METABOLIC PANELon 08 Anion gap [Moles/Vol] 11 mmol/L Normal 7-20 [facility] Comment on above: Performed By: #### L [id number] #### [facility] ([facility]) [address] [place] [address] Calcium [Mass/Vol] 8.8 mg/dL Normal 8.6-10.3 [facility] Comment on above: Performed By: #### L [id number] #### [facility] ([facility]) [address] [place] [address] Chloride [Moles/Vol] 103 mmol/L Normal 98-107 [facility] Comment on above: Performed By: #### L [id number] #### [facility] ([facility]) [address] [place] [address] CO2 [Moles/Vol] 28 mmol/L Normal 21-31 [facility] Comment on above: Performed By: #### L [id number] #### [facility] ([facility]) [address] [place] [address] Creatinine [Mass/Vol] 1.17 mg/dL Normal 0.60-1.20 [facility] Comment on above: Performed By: #### L [id number] #### [facility] ([facility]) [address] [place] [address] GLOMERULAR FILTRATION RATE ML/MIN/1.73 SQ M.PREDICTED 54.4 mL/min/1.73m*2 Low >60.0 [facility] Comment on above: Result Comment: The [facility]???s estimated glomerular filtration rate (eGFR) will no longer include consideration of race in its calculation. The National Kidney Foundation???s eGFR Task Force developed new recommendations for the estimation of the glomerular filtration rate in the [place] They recommend immediate implementation of the new equation refit without the race variable in all laboratories because the calculation does not include race. In addition to not including race in the calculation and reporting, it included diversity in its development, and has acceptable performance characteristics and potential consequences that do not disproportionately affect any one group of individuals. Performed By: #### L [id number] #### [facility] ([facility]) [address] [place] [address] Glucose [Mass/Vol] 169 mg/dL High 70-100 [facility] Comment on above: Performed By: #### L [id number] #### [facility] ([facility]) [address] [place] [address] Potassium [Moles/Vol] 4.4 mmol/L Normal 3.5-5.1 [facility] Comment on above: Performed By: #### L [id number] #### [facility] ([facility]) [address] [place] [address] Sodium [Moles/Vol] 138 mmol/L Normal 136-145 [facility] Comment on above: Performed By: #### L [id number] #### [facility] ([facility]) [address] [place] [address] Urea nitrogen [Mass/Vol] 24 mg/dL Normal 7-25 [facility] Comment on above: Performed By: #### L [id number] #### [facility] ([facility]) [address] [place] [address] UREA NITROGEN/CREATININE (MASS RATIO) IN SER/PLAS 20.5 Normal [facility] Comment on above: Performed By: #### L [id number] #### [facility] ([facility]) [address] [place] [address] CBC WITH AUTO DIFFERENTIALon 10-19-2023 Basophils (Bld) [#/Vol] 0.09 10*3/uL Normal 0.00-0.20 [facility] Comment on above: Performed By: #### L [id number] #### [facility] ([facility]) [address] [place] [address] Basophils/100 WBC (Bld) 0.8 % Normal 0.0-1.0 [facility] Comment on above: Performed By: #### L [id number] #### [facility] ([facility]) [address] [place] [address] Eosinophils (Bld) [#/Vol] 0.25 10*3/uL Normal 0.00-0.50 [facility] Comment on above: Performed By: #### L [id number] #### [facility] ([facility]) [address] [place] [address] Eosinophils/100 WBC (Bld) 2.2 % Normal 0.0-6.0 [facility] Comment on above: Performed By: #### L [id number] #### [facility] ([facility]) [address] [place] [address] Erythrocyte distribution width (RBC) [Ratio] 14.6 % Normal 11.5-15.0 [facility] Comment on above: Performed By: #### L [id number] #### [facility] ([facility]) [address] [place] [address] ERYTHROCYTE MEAN CORPUSCULAR HEMOGLOBIN CONCENTRATION (G/DL) BY AUTOMATED 32.1 g/dL Normal 32.0-35.0 [facility] Comment on above: Performed By: #### L [id number] #### [facility] ([facility]) [address] [place] [address] Hematocrit (Bld) [Volume fraction] 44.2 % Normal 36.0-48.0 [facility] Comment on above: Performed By: #### L [id number] #### [facility] ([facility]) [address] [place] [address] Hemoglobin (Bld) [Mass/Vol] 14.2 g/dL Normal 12.0-15.0 [facility] Comment on above: Performed By: #### L [id number] #### [facility] ([facility]) [address] [place] [address] Immature granulocytes (Bld) [#/Vol] 0.15 10*3/uL Normal 0.00-0.20 [facility] Comment on above: Performed By: #### L [id number] #### [facility] ([facility]) [address] [place] [address] Immature granulocytes/100 WBC (Bld) 1.3 % High 0.0-1.0 [facility] Comment on above: Performed By: #### L [id number] #### [facility] ([facility]) [address] [place] [address] Lymphocytes (Bld) [#/Vol] 2.65 10*3/uL Normal 1.20-4.00 [facility] Comment on above: Performed By: #### L [id number] #### [facility] ([facility]) [address] [place] [address] Lymphocytes/100 WBC (Bld) 22.8 % Normal 20.0-45.0 [facility] Comment on above: Performed By: #### L [id number] #### [facility] ([facility]) [address] [place] [address] MCH (RBC) [Entitic mass] 30.3 pg Normal 27.0-33.0 [facility] Comment on above: Performed By: #### L [id number] #### [facility] ([facility]) [address] [place] [address] MCV (RBC) [Entitic vol] 94.4 fL Normal 82.0-98.0 [facility] Comment on above: Performed By: #### L [id number] #### [facility] ([facility]) [address] [place] [address] Monocytes (Bld) [#/Vol] 0.79 10*3/uL Normal 0.10-1.00 [facility] Comment on above: Performed By: #### L [id number] #### [facility] ([facility]) [address] [place] [address] Monocytes/100 WBC (Bld) 6.8 % Normal 5.0-12.0 [facility] Comment on above: Performed By: #### L [id number] #### [facility] ([facility]) [address] [place] [address] Neutrophils (Bld) [#/Vol] 7.67 10*3/uL High 1.60-7.60 [facility] Comment on above: Performed By: #### L [id number] #### [facility] ([facility]) [address] [place] [address] Neutrophils/100 WBC (Bld) 66.1 % Normal 40.0-72.0 [facility] Comment on above: Performed By: #### L [id number] #### [facility] ([facility]) [address] [place] [address] NRBC (PER 100 WBCS) BY AUTOMATED COUNT 0.0 % Normal 0 [facility] Comment on above: Performed By: #### L [id number] #### [facility] ([facility]) [address] [place] [address] PLATELETS (10*3/UL) IN BLOOD AUTOMATED COUNT 190 10*3/uL Normal 150-400 [facility] Comment on above: Performed By: #### L [id number] #### [facility] ([facility]) [address] [place] [address] RBC (Bld) [#/Vol] 4.68 10*6/uL Normal 3.80-5.00 [facility] Comment on above: Performed By: #### L [id number] #### [facility] ([facility]) [address] [place] [address] WBC (Bld) [#/Vol] 11.60 10*3/uL High 4.00-10.60 [facility] Comment on above: Performed By: #### L [id number] #### [facility]) [address] [place] [address] on 10-19-2023 H&P reviewed. The pa kain was examined and there are no changes to the H&P. Discussed risks, benefits, and alternative therapies with the patient, she understands and willing to proceed with peripheral angiogram and possible intervention. Randy Lala MD PGY-7 Inter[address]ic [facility] NURSNOTEon 10-19-2023 NURSNOTE RN educated pt on d/ c instructions. RN encouraged pt to voice any questions or concerns. Pt verbalizes no questions or concerns at this time. [facility] 09-21-2023 [facility] Cardiology - [facility] Subjective Elmer Ellis is a 57 y.o. year old female patient being seen for follow up stress test, echo, and ALEXANDRIA's. Denies chest pain and SOB, but c/o a lot of lightheadedness/dizziness lately. Denies syncope. Continues to have claudication. Patient Active Problem List Diagnosis Coronary atherosclerosis Dyspnea on exertion Factor V Leiden (CMS/HCC) Hypertriglyceridemia History of deep vein thrombosis Intermittent claudication (CMS/HCC) Tobacco dependence syndrome Smoker Renal mass Other specified disorders of kidney and ureter Morbid obesity (CMS/HCC) Intermittent palpitations Abnormal PFT Abnormal stress test Anemia Anxiety and depression Arthritis Arthritis of left acromioclavicular joint Bilateral lower extremity edema Cancer of kidney (CMS/HCC) Chondromalacia of left patella Chronic back pain Chronic bronchitis (CMS/HCC) Chronic cough 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) Diabetic neuropathy, painful (CMS/HCC) Encounter for annual wellness visit (AWV) in Medicare patient Environmental and seasonal allergies Family history of lung cancer Gallstone Gastroesophageal reflux disease without esophagitis History of varicose veins Incomplete bladder emptying Internal derangement of left knee Internal derangement of right knee Intestinal malabsorption, unspecified Iron deficiency anemia Lumbosacral plexus lesion Mucopurulent chronic bronchitis (CMS/HCC) Neuropathy ELENA (obstructive sleep apnea) Osteoporosis Other acute sinusitis Yeast infection of the vagina Elevated alkaline phosphatase level Family History Problem Relation Name Age of [...] She is taking furosemide 40 mg daily. At most recent visit of 08/18/2023 and to investigate her symptoms of claudication I checked an ALEX[place]RIA. I also investigated shortness of breath with an echo and a stress test. Her echocardiogram and stress test were within normal limits. The ABIs were reduced on the right. Today she reports that she continues to have symptoms of lifestyle limiting claudication both legs but mostly in the right leg. She denies chest pain. She has no significant shortness of breath with exertion. No palpitations and no dizziness or lightheadedness. Review of Systems Cardiovascular: Positive for claudication and leg swelling. Respiratory: Positive for cough. Neurological: Positive for dizziness and light-headedness. All other systems reviewed and are negative. Objective Visit Vitals BP 120/66 (BP Location: Right arm, Patient Position: Sitting) Pulse 76 Ht 1.626 m (5' 4 ) Wt 126 kg (277 lb) SpO2 92% BMI 47.55 kg/m??? Smoking Status Every Day BSA (more content not included)... Normal [facility] Office Visiton 09-21-2023 Follow-up visit [id number] Sarah Ellis 1965 F Date Provider Department Center 09/21/2023 MALIK CLAUDIO SRUTHI Matt Family History Problem Relation Age of Onset Diabetes Mother Heart attack Mother Other Mother Coronary artery disease Mother Diabetes Father Coronary artery disease Father Heart attack Maternal Grandfather Family Status - Relation Status Age at Mother Father Maternal Grandfather Level of Service:85169 [place] OFFICE/OUTPATIENT ESTABLISHED HIGH MDM 40 MIN Normal [facility] Office Visiton 08-18-2023 Follow-up visit [id number] Sarah Ellis 1965 F Date Provider Department Center 08/18/2023 MALIK CLAUDIO SRUTHI Matt Family History Problem Relation Age of Onset Diabetes Mother Heart attack Mother Other Mother Coronary artery disease Mother Diabetes Father Coronary artery disease Father Heart attack Maternal Grandfather Family Status - Relation Status Age at Mother Father Maternal Grandfather Level of Service:54178 [place] OFFICE/OUTPATIENT ESTABLISHED MOD MDM 30 MIN Normal [facility] Complete Blood Count Auto Di ffon 07-07-2023 Basophils (Bld) [#/Vol] 0.1 10*3/uL Normal 0.0-0.2 [facility] Comment on above: Result Comment: PERF ORMED BY: [facility] [address] [place] [address] PATHOLOGIST GAUGE AND WEIGH MACHINE OPERATOR YU ACOSTA M.D. Performed By: #### C BC, CMP, FE and TIBC, JAQUELINE, [id number] #### [address] #### METH, EPO #### [facility] , Basophils/100 WBC (Bld) 0.6 % Normal . [facility] Comment on above: Performed By: #### C BC, CMP, FE and TIBC, JAQUELINE, [id number] #### [place] [address] [place] #### METH, EPO #### [facility] , Eosinophils (Bld) [#/Vol] 0.2 10*3/uL Normal 0.0-0.45 [facility] Comment on above: Performed By: #### C BC, CMP, FE and TIBC, JAQUELINE, [id number] #### [address] #### METH, EPO #### [facility] , Eosinophils/100 WBC (Bld) 1.8 % Normal . [facility] Comment on above: Performed By: #### C BC, CMP, FE and TIBC, JAQUELINE, [id number] #### [address] #### METH, EPO #### [facility] , Erythrocyte distribution width (RBC) [Ratio] 14.8 % Normal 11.9-15.3 [facility] Comment on above: Performed By: #### C BC, CMP, FE and TIBC, JAQUELINE, [id number] #### [address] #### METH, EPO #### [facility] , Hematocrit (Bld) [Volume fraction] 43.6 % Normal 34.0-46.4 [facility] Comment on above: Performed By: #### C BC, CMP, FE and TIBC, JAQUELINE, [id number] #### [place] [address] [place] #### METH, EPO #### [facility] , Hemoglobin (Bld) [Mass/Vol] 14.4 g/dL Normal 11.8-15.4 [facility] Comment on above: Performed By: #### C BC, CMP, FE and TIBC, JAQUELINE, [id number] #### [place] [address] [place] #### METH, EPO #### [facility] , Lymphocytes (Bld) [#/Vol] 2.7 10*3/uL Normal 1.00-4.8 [facility] Comment on above: Performed By: #### C BC, CMP, FE and TIBC, JAQUELINE, [id number] #### [address] #### METH, EPO #### [facility] , Lymphocytes/100 WBC (Bld) 24.7 % Normal . [facility] Comment on above: Performed By: #### C BC, CMP, FE and TIBC, JAQUELINE, [id number] #### [place] [address] [place] #### METH, EPO #### [facility] , MCH (RBC) [Entitic mass] 30.5 pg Normal 24.7-34.3 [facility] Comment on above: Performed By: #### C BC, CMP, FE and TIBC, JAQUELINE, [id number] #### [place] [address] [place] #### METH, EPO #### [facility] , MCV (RBC) [Entitic vol] 92.1 fL Normal 80-100 [facility] Comment on above: Performed By: #### C BC, CMP, FE and TIBC, JAQUELINE, [id number] #### [place] [address] [place] #### METH, EPO #### [facility] , Mean Corpuscular HGB Conc 33.1 g/dL Normal 32.0-35.0 [facility] Comment on above: Performed By: #### C BC, CMP, FE and TIBC, JAQUELINE, [id number] #### [place] [address] [place] #### METH, EPO #### [facility] , Monocytes (Bld) [#/Vol] 0.6 10*3/uL Normal 0.0-0.8 [facility] Comment on above: Performed By: #### C BC, CMP, FE and TIBC, JAQUELINE, [id number] #### [place] [address] [place] #### METH, EPO #### [facility] , Monocytes/100 WBC (Bld) 5.3 % Normal . [facility] Comment on above: Performed By: #### C BC, CMP, FE and TIBC, JAQUELINE, [id number] #### [place] [address] [place] #### METH, EPO #### [facility] , Neutrophils (Bld) [#/Vol] 7.5 10*3/uL Normal 1.8-7.7 [facility] Comment on above: Performed By: #### C BC, CMP, FE and TIBC, JAQUELINE, [id number] #### [place] [address] [place] #### METH, EPO #### [facility] , Neutrophils/100 WBC (Bld) 67.6 % Normal . [facility] Comment on above: Performed By: #### C BC, CMP, FE and TIBC, JAQUELINE, [id number] #### [place] [address] [place] #### METH, EPO #### [facility] , NRBC% 0.1 /100{WBC} Normal 0-0.5 [facility] Comment on above: Performed By: #### C BC, CMP, FE and TIBC, JAQUELINE, [id number] #### [address] #### METH, EPO #### [facility] , Platelet mean volume (Bld) [Entitic vol] 9.7 fL Normal 6.3-10.7 [facility] Comment on above: Performed By: #### C BC, CMP, FE and TIBC, JAQUELINE, [id number] #### [address] #### METH, EPO #### [facility] , Platelets (Bld) [#/Vol] 169 10*3/uL Normal 150-450 [facility] Comment on above: Performed By: #### C BC, CMP, FE and TIBC, JAQUELINE, [id number] #### [place] [address] [place] #### METH, EPO #### [facility] , RBC (Bld) [#/Vol] 4.73 10*6/uL Normal 3.60-5.00 [facility] Comment on above: Performed By: #### C BC, CMP, FE and TIBC, JAQUELINE, [id number] #### [address] #### METH, EPO #### [facility] , WBC (Bld) [#/Vol] 11.0 10*3/uL Normal 3.8-11.6 [facility] Comment on above: Performed By: #### C BC, CMP, FE and TIBC, JAQUELINE, [id number] #### [place] [address] [place] #### METH, EPO #### [facility] , Comprehensive Metabolic Pane mikki 07-07-2023 Albumin [Mass/Vol] 3.8 g/dL Normal 3.5-5.7 [facility] Comment on above: Performed By: #### C BC, CMP, FE and TIBC, JAQUELINE, [id number] #### [address] #### METH, EPO #### [facility] , Albumin/Globulin [Mass ratio] 1.4 {ratio} Normal [facility] Comment on above: Performed By: #### C BC, CMP, FE and TIBC, JAQUELINE, [id number] #### [place] [address] [place] #### METH, EPO #### [facility] , ALP [Catalytic activity/Vol] 167 U/L High 34-104 [facility] Comment on above: Performed By: #### C BC, CMP, FE and TIBC, JAQUELINE, [id number] #### [place] [address] [place] #### METH, EPO #### [facility] , ALT [Catalytic activity/Vol] 21 U/L Normal 7-52 [facility] Comment on above: Performed By: #### C BC, CMP, FE and TIBC, AJQUELINE, [id number] #### [address] #### METH, EPO #### [facility] , Anion gap [Moles/Vol] 13.5 mmol/L Normal 6.0-15.0 [facility] Comment on above: Performed By: #### C BC, CMP, FE and TIBC, JAQUELINE, [id number] #### [place] [address] [place] #### METH, EPO #### [facility] , AST [Catalytic activity/Vol] 15 U/L Normal 13-39 [facility] Comment on above: Performed By: #### C BC, CMP, FE and TIBC, JAQUELINE, [id number] #### [place] [address] [place] #### METH, EPO #### [facility] , Bilirubin [Mass/Vol] 0.4 mg/dL Normal 0.3-1.0 [facility] Comment on above: Performed By: #### C BC, CMP, FE and TIBC, JAQUELINE, [id number] #### [place] [address] [place] #### METH, EPO #### [facility] , Calcium [Mass/Vol] 8.6 mg/dL Normal 8.6-10.3 [facility] Comment on above: Performed By: #### C BC, CMP, FE and TIBC, JAQUELINE, [id number] #### [address] #### METH, EPO #### [facility] , Chloride [Moles/Vol] 102 mmol/L Normal 98-107 [facility] Comment on above: Performed By: #### C BC, CMP, FE and TIBC, JAQUELINE, [id number] #### [place] [address] [place] #### METH, EPO #### [facility] , CO2 [Moles/Vol] 26.8 mmol/L Normal 21.0-31.0 [facility] Comment on above: Performed By: #### C BC, CMP, FE and TIBC, JAQUELINE, [id number] #### [place] [address] [place] #### METH, EPO #### [facility] , Creatinine [Mass/Vol] 1.18 mg/dL Normal 0.60-1.20 [facility] Comment on above: Performed By: #### C BC, CMP, FE and TIBC, JAQUELINE, [id number] #### [place] [address] [place] #### METH, EPO #### [facility] , Creatinine Clr Calc Pharmacy 65.67 Normal [facility] Comment on above: Performed By: #### C BC, CMP, FE and TIBC, JAQUELINE, [id number] #### [place] [address] [place] #### METH, EPO #### [facility] , GFR/1.73 sq M.predicted MDRD (S/P/Bld) [Vol rate/Area] 53.873 mL/min/{1.73_m2} Normal [facility] Comment on above: Performed By: #### C BC, CMP, FE and TIBC, JAQUELINE, [id number] #### [place] [address] [place] #### METH, EPO #### [facility] , Globulin (S) [Mass/Vol] 2.8 g/dL Normal [facility] Comment on above: Performed By: #### C BC, CMP, FE and TIBC, JAQUELINE, [id number] #### [place] [address] [place] #### METH, EPO #### [facility] , Glucose [Mass/Vol] 215 mg/dL High 70-100 [facility] Comment on above: Result Comment: [place] Glucose Reference Range is dependent on time and content of last meal. Glucose of more than 200 mg/dL in a nonstressed, ambulatory subject supports the diagnosis of Diabetes Mellitus. ADA recommended reference range Performed By: #### C BC, CMP, FE and TIBC, JAQUELINE, [id number] #### [place] [address] [place] #### METH, EPO #### [facility] , Potassium [Moles/Vol] 4.3 mmol/L Normal 3.5-5.1 [facility] Comment on above: Performed By: #### C BC, CMP, FE and TIBC, JAQUELINE, [id number] #### [place] [address] [place] #### METH, EPO #### [facility] , Protein [Mass/Vol] 6.6 g/dL Normal 6.4-8.9 [facility] Comment on above: Performed By: #### C BC, CMP, FE and TIBC, JAQUELINE, [id number] #### [address] #### METH, EPO #### [facility] , Sodium [Moles/Vol] 138 mmol/L Normal 136-145 [facility] Comment on above: Performed By: #### C BC, CMP, FE and TIBC, JAQUELINE, [id number] #### [address] #### METH, EPO #### [facility] , Urea nitrogen [Mass/Vol] 21 mg/dL Normal 7-25 [facility] Comment on above: Performed By: #### C BC, CMP, FE and TIBC, JAQUELINE, [id number] #### [address] #### METH, EPO #### [facility] , Erythropoetin (EPO), Serumon 07-07-2023 Erythropoetin (EPO), Serum 23.3 m[iU]/mL High 2.6-18.5 [facility] Comment on above: Result Comment: [employer]ixel DxI 800 Immunoassay System Values obtained with different assay methods or kits cannot be used interchangeably. Results cannot be interpreted as absolute evidence of the presence or absence of malignant disease. Performed at: [facility] [employer] [id number] Virologist: Hieu Willams PhD, Phone: [phone] PERFORMED BY: [place] [address] PATHOLOGIST [employer] WE[employer] MACHINE OPERATOR YU ACOSTA M.D. Performed By: #### C BC, CMP, FE and TIBC, JAQUELINE, [id number] #### [place] [address] [place] #### METH, EPO #### [facility] , Ferritinon 07-07-2023 Ferritin [Mass/Vol] 154.7 ng/mL Normal 11.0-306.8 [facility] Comment on above: Performed By: #### C BC, CMP, FE and TIBC, JAQUELINE, [id number] #### [place] [address] [place] #### METH, EPO #### [facility] , Iron and TIBC Profileon 06-21 % Iron Saturation 33.9 % Normal 20-50 [facility] Comment on above: Performed By: #### C BC, CMP, FE and TIBC, JAQUELINE, [id number] #### [address] #### METH, EPO #### [facility] , Iron [Mass/Vol] 84 ug/dL Normal 50-212 [facility] Comment on above: Performed By: #### C BC, CMP, FE and TIBC, JAQUELINE, [id number] #### [place] [address] [place] #### METH, EPO #### [facility] , Total Iron Binding Capacity 248 ug/dL Low 255-450 [facility] Comment on above: Performed By: #### C BC, CMP, FE and TIBC, JAQUELINE, [id number] #### [place] [address] [place] #### METH, EPO #### [facility] , Transferrin [Mass/Vol] 177 mg/dL Low 203-362 [facility] Comment on above: Performed By: #### C BC, CMP, FE and TIBC, JAQUELINE, [id number] #### [place] [address] [place] #### METH, EPO #### [facility] , Methylmalonic Acidon 024 Methylmalonic Acid 202 Normal 0-378 [facility] Comment on above: Result Comment: This test was developed and its performance characteristics determined by [facility]. It has not been cleared or approved by the Food and Drug Administration. Performed at: [address] [id number] Virologist: Amara Coyne MD, Phone: [phone] Performed By: #### C BC, CMP, FE and TIBC, JAQUELINE, [id number] #### [address] #### METH, EPO #### [facility] , Vit. B12/Folate Profileon Cobalamin (Vitamin B12) [Mass/Vol] 493 pg/mL Normal 180-914 [facility] Comment on above: Performed By: #### C BC, CMP, FE and TIBC, JAQUELINE, [id number] #### [address] #### METH, EPO #### [facility] , Folate 30.0 ng/mL Normal >5.9 [facility] Comment on above: Result Comment: Sherry te reference range: >5.9 ng/ml The WHO technical consultation on folate and vitamin b12 deficiencies has determined that folate concentrations less than 4 ng/ml are considered deficient. PERFORMED BY: [place] [address] PATHOLOGIST [employer] MACHINE OPERATOR YU ACOSTA M.D. Performed By: #### C BC, CMP, FE and TIBC, JAQUELINE, [id number] #### [place] [address] [place] #### METH, EPO #### [facility] , CREATININE BLDon 05-17-2023 Creatinine [Mass/Vol] 1.19 mg/dL High 0.58-0.96 [facility] Comment on above: Order Comment: Speci men Type: BLOOD SPECIMEN Ordering Facility: [facility] Address: [address] [place] [address] Performed By: #### C RET1 #### [facility] CLIA [id number] [address] [place] [address] Creatinine and Glomerular filtration rate.predicted panel (S/P/Bld) 53 mL/min/1.73m??? Low >=60 [facility] Comment on above: Order Comment: Speci men Type: BLOOD SPECIMEN Ordering Facility: [facility] Address: [address] [place] [id number] Result Comment: Terri mated Glomerular Filtration Rate [...] GFR. Performed By: #### C RET1 #### [facility] CLIA [id number] [address] [place] [address] CREATININE BLDOrdered By: Shantelle Mock on 05-17-2023 Creatinine [Mass/Vol] 1.19 mg/dL High 0.58 - 0.96 mg/dL [facility] GFR/1.73 sq M.predicted among non-blacks MDRD (S/P/Bld) [Vol rate/Area] 53 mL/min/{1.73_m2} Low - PINF [facility] Comment on above: Estimated Glomerular Filtration Rate (eGFR) is calculated using the 2020 CKD-EPI creatinine equation. This equation utilizes serum creatinine, sex, and age as parameters. The creatinine assay has traceable calibration to isotope dilution-mass spectrometry. Refer to KDIGO guidelines for clinical interpretation. In patients with unstable renal function, e.g. those with acute kidney injury, the eGFR may not accurately reflect actual GFR. Interpretation and review of laboratory results Abnormal [facility] CT KIDNEY WO/W IVCONon 05-16 CT KIDNEY WO/W IVCON * * *Final Report* * * DATE OF EXAM: May 17 2023 2:01PM [facility] 0546 - CT KIDNEY WO/W IVCON / [...] or blastic osseous abnormality. Lower thorax: Unremarkable. Play Reader (topogram) images: No additional findings. IMPRESSION: 1. [...] any questions regarding this interpretation, please call [phone]. If you are unable to reach us at the number above, please feel free to contact [facility] at [phone]. [id number] Normal [facility] CT Kidney WO and W contrast Gabriela 05-17-2023 IMPRESSION: 1. Since 10/07/2022, continued mild increase [...] any questions regarding this interpretation, please call [phone]. If you are unable to reach us at the number above, please feel free to contact [facility] at [phone]. DIVISION OF RADIOLOGY * * *Final Report* * * DATE OF EXAM: May 17 2023 2:01PM [facility] 0546 - CT KIDNEY WO/W IVCON / [...] or blastic osseous abnormality. Lower thorax: Unremarkable. Play Reader (topogram) images: No additional findings. DIVISION OF RADIOLOGY Provider, [facility] - 05/17/2023 * * *Final Report* * * DATE OF EXAM: May 17 2023 2:01PM [facility] 0546 - CT KIDNEY WO/W IVCON / [...] or blastic osseous abnormality. Lower thorax: Unremarkable. Play Reader (topogram) images: No additional findings. IMPRESSION IMPRESSION: 1. Since 10/07/2022, continued mild increase [...] any questions regarding this interpretation, please call [phone]. If you are unable to reach us at the number above, please feel free to contact [facility] at [phone]. [facility] Radiology Study observation (narrative) [facility] CT Kidney WO and W contrast IVOrdered By: [facility]cf Provider on 05-17-2023 [facility] Osvaldo 04-28-2023 CNPN Telephone (HEMTSA) ELMER ELLIS ([id number]) 1965 F Date Time Provider Department 04/28/23 ANGIE MCCLELLAN During your visit today, we recorded the following information about you: Josie Leong RN 04/28/2023 12:16 PM Signed Please sign pended Cre for upcoming CT. Pt needs updated lab before CT can be done Thank You! Josie Leong RN Allergies As of Date: 04/28/2023 (No Known Allergies) Date Reviewed: 10/15/2022 Reviewed by: Angie Mcclellan APRN.PR SPECIALIST - Fully Assessed Reason for Visit: Orders [681] Primary Visit Diagnosis:Renal mass [N28.89] Order(s):CREATININE BLD [SQCRET] Order #: [id number] FUTURE Prescriptions as of 04/28/2023 - DULoxetine [...] by mouth twice daily. - MV with Zlv-Deyzpzef-Mefeyp (CENTRUM SILVER) 0.4 mg-300 mcg- 250 mcg tab Take by mouth. - insulin 75/25 lispro protamine/lispro units/mL (HUMALOG MIX 75-25,U-100,INSULN) 100 units/mL susp as directed. - HYDROcodone-acetaminophen (NORCO) 5-325 mg per tablet hydrocodone 5 mg-acetaminophen 325 mg tablet TAKE 1 TO 2 TABLETS BY MOUTH EVERY DAY AT BEDTIME NEEDED - qupibkvf-nfr-csms-FA-lutein (CENTRUM SILVER WOMEN) 8 mg iron-400 mcg-300 [...] (HCC) [D68.51] 04/19/2022 Coronary artery disease involving [place] heart *04/19/2022 Smoker [F17.200] 04/19/2022 Morbid obesity (HCC) [E66.01] 04/19/2022 Other specified disorders of kidney and ureter *04/19/2022 Encounter Status:Closed by ANGIE MCCLELLAN on 04/28/23 Normal [facility] A1C with Estimated Average G dwight 04-13-2023 Glucose [Mass/Vol] 189 mg/dL Normal [facility] Comment on above: Result Comment: PERF ORMED BY: [place] [address] PATHOLOGIST GAUGE AND WEIGH MACHINE OPERATOR YU ACOSTA M.D. Performed By: #### C BC, CMP, FE and TIBC, JAQUELINE, [id number] #### [address] #### METH, EPO #### [facility] , HbA1c (Bld) [Mass fraction] 8.2 % High 4.3-5.6 [facility] Comment on above: Result Comment: Incr eased risk for diabetes: 5.7 - 6.4 diabetes: >6.4 glycemic control for adults with diabetes: <7.0 Performed By: #### C BC, CMP, FE and TIBC, JAQUELINE, [id number] #### [address] #### METH, EPO #### [facility] , Alanine aminotransferase [En zymatic activity/volume] in Serum or PlasmaOrdered By: Lilly Christianson on 04-13-2023 ALT [Catalytic activity/Vol] 40 U/L Normal 7-52 [facility] Comment on above: Performed By: #### C BC, CMP, FE and TIBC, JAQUELINE, [id number] #### [facility] [address] [place] [address] [place] #### METH, EPO #### [facility] , Albumin [Mass/volume] in Ser um or Plasma by Bromocresol green (BCG) dye binding methoOrdered By: Lilly Christianson on 04-13-2023 Albumin BCG dye [Mass/Vol] 3.9 g/dL 3.5-5.7 [facility] Alkaline phosphatase [Enzyma tic activity/volume] in Serum or PlasmaOrdered By: Lilly Christianson on 04-13-2023 ALP [Catalytic activity/Vol] 182 U/L High 34-104 [facility] Comment on above: Performed By: #### C BC, CMP, FE and TIBC, JAQUELINE, [id number] #### [place] [address] [place] #### METH, EPO #### [facility] , Aspartate aminotransferase [ Enzymatic activity/volume] in Serum or PlasmaOrdered By: Lilly Christianson on 04-13-2023 AST [Catalytic activity/Vol] 22 U/L Normal 13-39 [facility] Comment on above: Performed By: #### C BC, CMP, FE and TIBC, JAQUELINE, [id number] #### [place] [address] [place] #### METH, EPO #### [facility] , Automated basophil %Ordered By: Lilly Christianson on 04-13-2023 Basophils/100 WBC (Bld) 0.9 % Normal . [facility] Comment on above: Performed By: #### C BC, CMP, FE and TIBC, JAQUELINE, [id number] #### [facility] [address] [place] [address] [place] #### METH, EPO #### [facility] , Automated basophil countOrde red By: Lilly Christianson on 04-13-2023 Basophils (Bld) [#/Vol] 0.1 10*3/uL Normal 0.0-0.2 [facility] Comment on above: Result Comment: PERF ORMED BY: [place] [address] PATHOLOGIST G[employer] AND WEIGH MACHINE OPERATOR YU ACOSTA M.D. Performed By: #### C BC, CMP, FE and TIBC, JAQUELINE, [id number] #### [facility] [address] [place] [address] #### METH, EPO #### [facility] , Automated blood monocyte cou ntOrdered By: Lilly Christianson on 04-13-2023 Monocytes (Bld) [#/Vol] 0.8 10*3/uL Normal 0.0-0.8 [facility] Comment on above: Performed By: #### C BC, CMP, FE and TIBC, JAQUELINE, [id number] #### [facility] [address] [place] [address] #### METH, EPO #### [facility] , Automated eosinophil %Ordere d By: Lilly Christianson on 04-13-2023 Eosinophils/100 WBC (Bld) 2.9 % Normal . [facility] Comment on above: Performed By: #### C BC, CMP, FE and TIBC, JAQUELINE, [id number] #### [facility] [address] [place] [address] [place] #### METH, EPO #### [facility] , Automated eosinophil countOr dered By: Lilly Christianson on 04-13-2023 Eosinophils (Bld) [#/Vol] 0.3 10*3/uL Normal 0.0-0.45 [facility] Comment on above: Performed By: #### C BC, CMP, FE and TIBC, JAQUELINE, [id number] #### [place] [address] [place] #### METH, EPO #### [facility] , Automated monocyte %Ordered By: Lilly Christianson on 04-13-2023 Monocytes/100 WBC (Bld) 7.4 % Normal . [facility] Comment on above: Performed By: #### C BC, CMP, FE and TIBC, JAQUELINE, [id number] #### [place] [address] [place] #### METH, EPO #### [facility] , Automated neutrophil %Ordere d By: Lilly Christianson on 04-13-2023 Neutrophils/100 WBC (Bld) 65.0 % Normal . [facility] Comment on above: Performed By: #### C BC, CMP, FE and TIBC, JAQUELINE, [id number] #### [place] [address] [place] #### METH, EPO #### [facility] , Bilirubin.total [Mass/volume ] in Serum or PlasmaOrdered By: Lilly Christianson on 04-13-2023 Bilirubin [Mass/Vol] 0.3 mg/dL Normal 0.3-1.0 [facility] Comment on above: Performed By: #### C BC, CMP, FE and TIBC, JAQUELINE, [id number] #### [place] [address] [place] #### METH, EPO #### [facility] , Calcium [Mass/volume] in Ser um or PlasmaOrdered By: Lilly Christianson on 04-13-2023 Calcium [Mass/Vol] 8.9 mg/dL Normal 8.6-10.3 [facility] Comment on above: Performed By: #### C BC, CMP, FE and TIBC, JAQUELINE, [id number] #### [place] [address] [place] #### METH, EPO #### [facility] , Carbon dioxide, total [Moles /volume] in Serum or PlasmaOrdered By: Lilly Christianson on 04-13-2023 CO2 [Moles/Vol] 30.8 mmol/L Normal 21.0-31.0 [facility] Comment on above: Performed By: #### C BC, CMP, FE and TIBC, JAQUELINE, [id number] #### [facility] [address] [place] [address] [place] #### METH, EPO #### [facility] , Chloride [Moles/volume] in S jigar or PlasmaOrdered By: Lilly Christianson on 04-13-2023 Chloride [Moles/Vol] 100 mmol/L Normal 98-107 [facility] Comment on above: Performed By: #### C BC, CMP, FE and TIBC, JAQUELINE, [id number] #### [place] [address] [place] #### METH, EPO #### [facility] , Complete Blood Count Auto Di ffon 04-13-2023 Mean Corpuscular HGB Conc 33.1 g/dL Normal 32.0-35.0 [facility] Comment on above: Performed By: #### C BC, CMP, FE and TIBC, JAQUELINE, [id number] #### [place] [address] [place] #### METH, EPO #### [facility] , NRBC% 0.1 /100{WBC} Normal 0-0.5 [facility] Comment on above: Performed By: #### C BC, CMP, FE and TIBC, JAQUELINE, [id number] #### [facility] [address] [place] [address] [place] #### METH, EPO #### [facility] , Comprehensive Metabolic Pane mikki 04-13-2023 Albumin [Mass/Vol] 3.9 g/dL Normal 3.5-5.7 [facility] Comment on above: Performed By: #### C BC, CMP, FE and TIBC, JAQUELINE, [id number] #### [place] [address] [place] #### METH, EPO #### [facility] , Creatinine Clr Calc Pharmacy 58.71 Normal [facility] Comment on above: Performed By: #### C BC, CMP, FE and TIBC, JAQUELINE, [id number] #### [place] [address] [place] #### METH, EPO #### [facility] , GFR/1.73 sq M.predicted MDRD (S/P/Bld) [Vol rate/Area] 47.091 mL/min/{1.73_m2} Normal [facility] Comment on above: Performed By: #### C BC, CMP, FE and TIBC, JAQUELINE, [id number] #### [place] [address] [place] #### METH, EPO #### [facility] , Creatinine [Mass/volume] in Serum or PlasmaOrdered By: Lilly Christianson on 04-13-2023 Creatinine [Mass/Vol] 1.32 mg/dL High 0.60-1.20 [facility] Comment on above: Performed By: #### C BC, CMP, FE and TIBC, JAQUELINE, [id number] #### [place] [address] [place] #### METH, EPO #### [facility] , Erythrocyte distribution wid th [Ratio] by Automated countOrdered By: Lilly Christianson on 04-13-2023 Erythrocyte distribution width (RBC) [Ratio] 15.6 % High 11.9-15.3 [facility] Comment on above: Performed By: #### C BC, CMP, FE and TIBC, JAQUELINE, [id number] #### [place] [address] [place] #### METH, EPO #### [facility] , Erythrocytes [#/volume] in B lood by Automated countOrdered By: Lilly Christianson on 04-13-2023 RBC (Bld) [#/Vol] 4.91 10*6/uL Normal 3.60-5.00 [facility] Comment on above: Performed By: #### C BC, CMP, FE and TIBC, JAQUELINE, [id number] #### [address] #### METH, EPO #### [facility] , Erythropoetin (EPO), Serumon 04-13-2023 Erythropoetin (EPO), Serum 29.5 m[iU]/mL High 2.6-18.5 [facility] Comment on above: Result Comment: Qbixel DxI 800 Immunoassay System Values obtained with different assay methods or kits cannot be used interchangeably. Results cannot be interpreted as absolute evidence of the presence or absence of malignant disease. Performed at: [address] [id number] Virologist: Hieu Willams PhD, Phone: [phone] PERFORMED BY: [place] [address] PATHOLOGIST [employer] WEIGH MACHINE OPERATOR YU ACOSTA M.D. Performed By: #### C BC, CMP, FE and TIBC, JAQUELINE, [id number] #### [place] [address] [place] #### METH, EPO #### [facility] , Ferritin [Mass/volume] in Se rum or PlasmaOrdered By: Lilly Christianson on 04-13-2023 Ferritin [Mass/Vol] 102.5 ng/mL Normal 11.0-306.8 [facility] Comment on above: Performed By: #### C BC, CMP, FE and TIBC, JAQUELINE, [id number] #### [address] #### METH, EPO #### [facility] , Folate [Mass/volume] in Seru m or PlasmaOrdered By: Lilly Christianson on 04-13-2023 Folate [Mass/Vol] 4.7 ng/mL >5.9 [facility] Comment on above: Folate reference ran ge: >5.9 ng/mlThe WHO technical consultation on folate and vitamin [id number] has determined that folate concentrations lessthan 4 ng/ml are considered deficient. Glucose [Mass/volume] in Ser um or PlasmaOrdered By: Lilly Christianson on 04-13-2023 Glucose [Mass/Vol] 242 mg/dL High 70-100 [facility] Comment on above: ADA recommended refe rence rangeRandom Glucose Reference Range is dependent on time and content of last meal. Glucose of more than 200 mg/dL in a nonstressed, ambulatory subject supports the diagnosis of Diabetes Mellitus. Result Comment: [place] om Glucose Reference Range is dependent on time and content of last meal. Glucose of more than 200 mg/dL in a nonstressed, ambulatory subject supports the diagnosis of Diabetes Mellitus. ADA recommended reference range Performed By: #### C BC, CMP, FE and TIBC, JAQUELINE, [id number] #### [facility] [address] [place] [address] [place] #### METH, EPO #### [facility] , Hematocrit [Volume Fraction] of Blood by Automated countOrdered By: Lilly Christianson on 04-13-2023 Hematocrit (Bld) [Volume fraction] 44.7 % Normal 34.0-46.4 [facility] Comment on above: Performed By: #### C BC, CMP, FE and TIBC, JAQUELINE, [id number] #### [facility] [address] [place] [address] [place] #### METH, EPO #### [facility] , Hemoglobin [Mass/volume] in BloodOrdered By: Lilly Christianson on 04-13-2023 Hemoglobin (Bld) [Mass/Vol] 14.8 g/dL Normal 11.8-15.4 [facility] Comment on above: Performed By: #### C BC, CMP, FE and TIBC, JAQUELINE, [id number] #### [facility] [address] [place] [address] [place] #### METH, EPO #### [facility] , Iron [Mass/volume] in Serum or PlasmaOrdered By: Lilly Christianson on 04-13-2023 Iron [Mass/Vol] 129 ug/dL Normal 50-212 [facility] Comment on above: Performed By: #### C BC, CMP, FE and TIBC, JAQUELINE, [id number] #### [facility] [address] [place] [address] [place] #### METH, EPO #### [facility] , Iron and TIBC Profileon 03-25 % Iron Saturation 50.0 % Normal 20-50 [facility] Comment on above: Performed By: #### C BC, CMP, FE and TIBC, JAQUELINE, [id number] #### [facility] [address] [place] [address] [place] #### METH, EPO #### [facility] , Total Iron Binding Capacity 258 ug/dL Normal 255-450 [facility] Comment on above: Performed By: #### C BC, CMP, FE and TIBC, JAQUELINE, [id number] #### [place] [address] [place] #### METH, EPO #### [facility] , Iron binding capacity [Mass/ volume] in Serum or PlasmaOrdered By: Lilly Christianson on 04-13-2023 Iron binding capacity [Mass/Vol] 258 ug/dL 255-450 [facility] Iron saturation [Mass Fracti on] in Serum or PlasmaOrdered By: Lilly Christianson on 04-13-2023 Iron saturation [Mass fraction] 50.0 % 20-50 [facility] Leukocytes [#/volume] correc nikki for nucleated erythrocytes in Blood by Automated counOrdered By: Lilly Christianson on 04-13-2023 WBC corrected for nucl RBC Auto (Bld) [#/Vol] 10.9 10*3/uL 3.8-11.6 [facility] Leukocytes [#/volume] in Blo od by Automated countOrdered By: Lilly Christianson on 04-13-2023 WBC (Bld) [#/Vol] 10.9 10*3/uL Normal 3.8-11.6 [facility] Comment on above: Performed By: #### C BC, CMP, FE and TIBC, JAQUELINE, [id number] #### [place] [address] [place] #### METH, EPO #### [facility] , Lymphocytes [#/volume] in Bl ood by Automated countOrdered By: Lilly Christianson on 04-13-2023 Lymphocytes (Bld) [#/Vol] 2.6 10*3/uL Normal 1.00-4.8 [facility] Comment on above: Performed By: #### C BC, CMP, FE and TIBC, JAQUELINE, [id number] #### [place] [address] [place] #### METH, EPO #### [facility] , Lymphocytes/100 leukocytes i n Blood by Automated countOrdered By: Lilly Christianson on 04-13-2023 Lymphocytes/100 WBC (Bld) 23.8 % Normal . [facility] Comment on above: Performed By: #### C BC, CMP, FE and TIBC, JAQUELINE, [id number] #### [place] [address] [place] #### METH, EPO #### [facility] , MCH [Entitic mass] by Automa nikki countOrdered By: Lilly Christianson on 04-13-2023 MCH (RBC) [Entitic mass] 30.1 pg Normal 24.7-34.3 [facility] Comment on above: Performed By: #### C BC, CMP, FE and TIBC, JAQUELINE, [id number] #### [place] [address] [place] #### METH, EPO #### [facility] , MCHC Auto (RBC) [Mass/Vol]Or dered By: Lilly Christianson on 04-13-2023 MCHC (RBC) [Mass/Vol] 33.1 g/dL 32.0-35.0 [facility] MCV [Entitic volume] by Auto mated countOrdered By: Lilly Christianson on 04-13-2023 MCV (RBC) [Entitic vol] 90.9 fL Normal 80-100 [facility] Comment on above: Performed By: #### C BC, CMP, FE and TIBC, JAQUELINE, [id number] #### [address] #### METH, EPO #### [facility] , Methylmalonic Acidon 024 Methylmalonic Acid 321 Normal 0-378 [facility] Comment on above: Result Comment: This test was developed and its performance characteristics determined by [employer]. It has not been cleared or approved by the Food and Drug Administration. Performed at: [address] [id number] Virologist: Amara Coyne MD, Phone: [phone] Performed By: #### C BC, CMP, FE and TIBC, JAQUELINE, [id number] #### [place] [address] [place] #### METH, EPO #### [facility] , Neutrophils [#/volume] in Bl ood by Automated countOrdered By: Lilly Christianson on 04-13-2023 Neutrophils (Bld) [#/Vol] 7.1 10*3/uL Normal 1.8-7.7 [facility] Comment on above: Performed By: #### C BC, CMP, FE and TIBC, JAQUELINE, [id number] #### [place] [address] [place] #### METH, EPO #### [facility] , No Panel InformationOrdered By: Lilly Christianson on 04-13-2023 Estimated GFR (CKD-EPI) 47.091 mL/Min [facility] Creatinine Clearance (Chem 58.71 [facility] Nucleated erythrocytes [Pres ence] in Blood by Automated countOrdered By: Lilly Christianson on 04-13-2023 Nucleated RBC Auto Ql (Bld) 0.1 /100{WBC} 0-0.5 [facility] Platelet mean volume [Entiti c volume] in Blood by Automated countOrdered By: Lilly Christianson on 04-13-2023 Platelet mean volume (Bld) [Entitic vol] 9.4 fL Normal 6.3-10.7 [facility] Comment on above: Performed By: #### C BC, CMP, FE and TIBC, JAQUELINE, [id number] #### [place] [address] [place] #### METH, EPO #### [facility] , Platelets [#/volume] in Bloo d by Automated countOrdered By: Lilly Christianson on 04-13-2023 Platelets (Bld) [#/Vol] 187 10*3/uL Normal 150-450 [facility] Comment on above: Performed By: #### C BC, CMP, FE and TIBC, JAQUELINE, [id number] #### [facility] [address] [place] [address] [place] #### METH, EPO #### [facility] , Potassium [Moles/volume] in Serum or PlasmaOrdered By: Lilly Christianson on 04-13-2023 Potassium [Moles/Vol] 4.8 mmol/L Normal 3.5-5.1 [facility] Comment on above: Performed By: #### C BC, CMP, FE and TIBC, JAQUELINE, [id number] #### [facility] [address] [place] [address] [place] #### METH, EPO #### [facility] , Protein [Mass/volume] in Ser um or PlasmaOrdered By: Lilly Christianson on 04-13-2023 Protein [Mass/Vol] 6.5 g/dL Normal 6.4-8.9 [facility] Comment on above: Performed By: #### C BC, CMP, FE and TIBC, JAQUELINE, [id number] #### [place] [address] [place] #### METH, EPO #### [facility] , Serum globulin measurement b y calculation (mass/volume)Ordered By: Lilly Christianson on 04-13-2023 Globulin (S) [Mass/Vol] 2.6 g/dL [facility] Comment on above: Performed By: #### C BC, CMP, FE and TIBC, JAQUELINE, [id number] #### [address] #### METH, EPO #### [facility] , Serum or plasma albumin/glob ulin mass ratioOrdered By: Lilly Christianson on 04-13-2023 Albumin/Globulin [Mass ratio] 1.5 {ratio} [facility] Comment on above: Performed By: #### C BC, CMP, FE and TIBC, JAQUELINE, [id number] #### [address] #### METH, EPO #### [facility] , Serum or plasma anion gap de terminationOrdered By: Lilly Christianson on 04-13-2023 Anion gap [Moles/Vol] 12.0 mmol/L Normal 6.0-15.0 [facility] Comment on above: Performed By: #### C BC, CMP, FE and TIBC, JAQUELINE, [id number] #### [place] [address] [place] #### METH, EPO #### [facility] , Sodium [Moles/volume] in Ser um or PlasmaOrdered By: Lilly Christianson on 04-13-2023 Sodium [Moles/Vol] 138 mmol/L Normal 136-145 [facility] Comment on above: Performed By: #### C BC, CMP, FE and TIBC, JAQUELINE, [id number] #### [facility] [address] [place] [address] [place] #### METH, EPO #### [facility] , Transferrin [Mass/volume] in Serum or PlasmaOrdered By: Lilly Christianson on 04-13-2023 Transferrin [Mass/Vol] 184 mg/dL Low 203-362 [facility] Comment on above: Performed By: #### C BC, CMP, FE and TIBC, JAQUELINE, [id number] #### [facility] [address] [place] [address] #### METH, EPO #### [facility] , Urea nitrogen [Mass/volume] in Serum or PlasmaOrdered By: Lilly Christianson on 04-13-2023 Urea nitrogen [Mass/Vol] 19 mg/dL Normal 7-25 [facility] Comment on above: Performed By: #### C BC, CMP, FE and TIBC, JAQUELINE, [id number] #### [address] #### METH, EPO #### [facility] , Vit. B12/Folate Profileon Folate 4.7 ng/mL Low >5.9 [facility] Comment on above: Result Comment: [place]ry te reference range: >5.9 ng/ml The WHO technical consultation on folate and vitamin b12 deficiencies has determined that folate concentrations less than 4 ng/ml are considered deficient. PERFORMED BY: [place] [address] PATHOLOGIST [employer] MACHINE OPERATOR YU ACOSTA M.D. Performed By: #### C BC, CMP, FE and TIBC, JAQUELINE, [id number] #### [place] [address] [place] #### METH, EPO #### [facility] , Vitamin B12 ser/plasOrdered By: Lilly Christianson on 04-13-2023 Cobalamin (Vitamin B12) [Mass/Vol] pg/mL High 180-914 [facility] Comment on above: Performed By: #### C BC, CMP, FE and TIBC, JAQUELINE, [id number] #### [address] #### METH, EPO #### [facility] , Complete Blood Count Auto Di ffon 01-17-2023 Basophils (Bld) [#/Vol] 0.1 10*3/uL Normal 0.0-0.2 [facility] Comment on above: Result Comment: PERF ORMED BY: [place] [address] PATHOLOGIST [employer] WEIGH MACHINE OPERATOR YU ACOSTA M.D. Performed By: #### C BC, CMP, FE and TIBC, JAQUELINE, [id number] #### [address] #### METH, EPO #### [facility] , Basophils/100 WBC (Bld) 0.7 % Normal . [facility] Comment on above: Performed By: #### C BC, CMP, FE and TIBC, JAQUELINE, [id number] #### [address] #### METH, EPO #### [facility] , Eosinophils (Bld) [#/Vol] 0.2 10*3/uL Normal 0.0-0.45 [facility] Comment on above: Performed By: #### C BC, CMP, FE and TIBC, JAQUELINE, [id number] #### [place] [address] [place] #### METH, EPO #### [facility] , Eosinophils/100 WBC (Bld) 2.3 % Normal . [facility] Comment on above: Performed By: #### C BC, CMP, FE and TIBC, JAQUELINE, [id number] #### [facility] [address] [place] [address] [place] #### METH, EPO #### [facility] , Erythrocyte distribution width (RBC) [Ratio] 14.8 % Normal 11.9-15.3 [facility] Comment on above: Performed By: #### C BC, CMP, FE and TIBC, JAQUELINE, [id number] #### [place] [address] [place] #### METH, EPO #### [facility] , Hematocrit (Bld) [Volume fraction] 42.8 % Normal 34.0-46.4 [facility] Comment on above: Performed By: #### C BC, CMP, FE and TIBC, JAQUELINE, [id number] #### [place] [address] [place] #### METH, EPO #### [facility] , Hemoglobin (Bld) [Mass/Vol] 14.2 g/dL Normal 11.8-15.4 [facility] Comment on above: Performed By: #### C BC, CMP, FE and TIBC, JAQUELINE, [id number] #### [place] [address] [place] #### METH, EPO #### [facility] , Lymphocytes (Bld) [#/Vol] 2.8 10*3/uL Normal 1.00-4.8 [facility] Comment on above: Performed By: #### C BC, CMP, FE and TIBC, JAQUELINE, [id number] #### [place] [address] [place] #### METH, EPO #### [facility] , Lymphocytes/100 WBC (Bld) 28.0 % Normal . [facility] Comment on above: Performed By: #### C BC, CMP, FE and TIBC, JAQUELINE, [id number] #### [place] [address] [place] #### METH, EPO #### [facility] , MCH (RBC) [Entitic mass] 30.3 pg Normal 24.7-34.3 [facility] Comment on above: Performed By: #### C BC, CMP, FE and TIBC, JAQUELINE, [id number] #### [place] [address] [place] #### METH, EPO #### [facility] , MCV (RBC) [Entitic vol] 90.9 fL Normal 80-100 [facility] Comment on above: Performed By: #### C BC, CMP, FE and TIBC, JAQUELINE, [id number] #### [place] [address] [place] #### METH, EPO #### [facility] , Mean Corpuscular HGB Conc 33.3 g/dL Normal 32.0-35.0 [facility] Comment on above: Performed By: #### C BC, CMP, FE and TIBC, JAQUELINE, [id number] #### [place] [address] [place] #### METH, EPO #### [facility] , Monocytes (Bld) [#/Vol] 0.8 10*3/uL Normal 0.0-0.8 [facility] Comment on above: Performed By: #### C BC, CMP, FE and TIBC, JAQUELINE, [id number] #### [place] [address] [place] #### METH, EPO #### [facility] , Monocytes/100 WBC (Bld) 8.3 % Normal . [facility] Comment on above: Performed By: #### C BC, CMP, FE and TIBC, JAQUELINE, [id number] #### [place] [address] [place] #### METH, EPO #### [facility] , Neutrophils (Bld) [#/Vol] 6.1 10*3/uL Normal 1.8-7.7 [facility] Comment on above: Performed By: #### C BC, CMP, FE and TIBC, JAQUELINE, [id number] #### [place] [address] [place] #### METH, EPO #### [facility] , Neutrophils/100 WBC (Bld) 60.7 % Normal . [facility] Comment on above: Performed By: #### C BC, CMP, FE and TIBC, JAQUELINE, [id number] #### [place] [address] [place] #### METH, EPO #### [facility] , NRBC% 0.1 /100{WBC} Normal 0-0.5 [facility] Comment on above: Performed By: #### C BC, CMP, FE and TIBC, JAQUELINE, [id number] #### [place] [address] [place] #### METH, EPO #### [facility] , Platelet mean volume (Bld) [Entitic vol] 9.0 fL Normal 6.3-10.7 [facility] Comment on above: Performed By: #### C BC, CMP, FE and TIBC, JAQUELINE, [id number] #### [address] #### METH, EPO #### [facility] , Platelets (Bld) [#/Vol] 194 10*3/uL Normal 150-450 [facility] Comment on above: Performed By: #### C BC, CMP, FE and TIBC, JAQUELINE, [id number] #### [place] [address] [place] #### METH, EPO #### [facility] , RBC (Bld) [#/Vol] 4.70 10*6/uL Normal 3.60-5.00 [facility] Comment on above: Performed By: #### C BC, CMP, FE and TIBC, JAQUELINE, [id number] #### [place] [address] [place] #### METH, EPO #### [facility] , WBC (Bld) [#/Vol] 10.0 10*3/uL Normal 3.8-11.6 [facility] Comment on above: Performed By: #### C BC, CMP, FE and TIBC, JAQUELINE, [id number] #### [place] [address] [place] #### METH, EPO #### [facility] , Comprehensive Metabolic Pane mikki 01-17-2023 Albumin [Mass/Vol] 3.9 g/dL Normal 3.5-5.7 [facility] Comment on above: Performed By: #### C BC, CMP, FE and TIBC, JAQUELINE, [id number] #### [place] [address] [place] #### METH, EPO #### [facility] , Albumin/Globulin [Mass ratio] 1.4 {ratio} Normal [facility] Comment on above: Performed By: #### C BC, CMP, FE and TIBC, JAQUELINE, [id number] #### [place] [address] [place] #### METH, EPO #### [facility] , ALP [Catalytic activity/Vol] 147 U/L High 34-104 [facility] Comment on above: Performed By: #### C BC, CMP, FE and TIBC, JAQUELINE, [id number] #### [place] [address] [place] #### METH, EPO #### [facility] , ALT [Catalytic activity/Vol] 19 U/L Normal 7-52 [facility] Comment on above: Performed By: #### C BC, CMP, FE and TIBC, JAQUELINE, [id number] #### [place] [address] [place] #### METH, EPO #### [facility] , Anion gap [Moles/Vol] 11.1 mmol/L Normal 6.0-15.0 [facility] Comment on above: Performed By: #### C BC, CMP, FE and TIBC, JAQUELINE, [id number] #### [place] [address] [place] #### METH, EPO #### [facility] , AST [Catalytic activity/Vol] 13 U/L Normal 13-39 [facility] Comment on above: Performed By: #### C BC, CMP, FE and TIBC, JAQUELINE, [id number] #### [address] #### METH, EPO #### [facility] , Bilirubin [Mass/Vol] 0.4 mg/dL Normal 0.3-1.0 [facility] Comment on above: Performed By: #### C BC, CMP, FE and TIBC, JAQUELINE, [id number] #### [place] [address] [place] #### METH, EPO #### [facility] , Calcium [Mass/Vol] 8.8 mg/dL Normal 8.6-10.3 [facility] Comment on above: Performed By: #### C BC, CMP, FE and TIBC, JAQUELINE, [id number] #### [place] [address] [place] #### METH, EPO #### [facility] , Chloride [Moles/Vol] 102 mmol/L Normal 98-107 [facility] Comment on above: Performed By: #### C BC, CMP, FE and TIBC, JAQUELINE, [id number] #### [place] [address] [place] #### METH, EPO #### [facility] , CO2 [Moles/Vol] 30.1 mmol/L Normal 21.0-31.0 [facility] Comment on above: Performed By: #### C BC, CMP, FE and TIBC, JAQUELINE, [id number] #### [place] [address] [place] #### METH, EPO #### [facility] , Creatinine [Mass/Vol] 1.10 mg/dL Normal 0.60-1.20 [facility] Comment on above: Performed By: #### C BC, CMP, FE and TIBC, JAQUELINE, [id number] #### [place] [address] [place] #### METH, EPO #### [facility] , Creatinine Clr Calc Pharmacy 70.45 Normal [facility] Comment on above: Performed By: #### C BC, CMP, FE and TIBC, JAQUELINE, [id number] #### [place] [address] [place] #### METH, EPO #### [facility] , GFR/1.73 sq M.predicted MDRD (S/P/Bld) [Vol rate/Area] 58.608 mL/min/{1.73_m2} Normal [facility] Comment on above: Performed By: #### C BC, CMP, FE and TIBC, JAQUELINE, [id number] #### [place] [address] [place] #### METH, EPO #### [facility] , Globulin (S) [Mass/Vol] 2.8 g/dL Normal [facility] Comment on above: Performed By: #### C BC, CMP, FE and TIBC, JAQUELINE, [id number] #### [place] [address] [place] #### METH, EPO #### [facility] , Glucose [Mass/Vol] 132 mg/dL High 70-100 [facility] Comment on above: Result Comment: [place] Glucose Reference Range is dependent on time and content of last meal. Glucose of more than 200 mg/dL in a nonstressed, ambulatory subject supports the diagnosis of Diabetes Mellitus. ADA recommended reference range Performed By: #### C BC, CMP, FE and TIBC, AJQUELINE, [id number] #### [address] #### METH, EPO #### [facility] , Potassium [Moles/Vol] 4.2 mmol/L Normal 3.5-5.1 [facility] Comment on above: Performed By: #### C BC, CMP, FE and TIBC, JAQUELINE, [id number] #### [address] #### METH, EPO #### [facility] , Protein [Mass/Vol] 6.7 g/dL Normal 6.4-8.9 [facility] Comment on above: Performed By: #### C BC, CMP, FE and TIBC, JAQUELINE, [id number] #### [place] [address] [place] #### METH, EPO #### [facility] , Sodium [Moles/Vol] 139 mmol/L Normal 136-145 [facility] Comment on above: Performed By: #### C BC, CMP, FE and TIBC, JAQUELINE, [id number] #### [place] [address] [place] #### METH, EPO #### [facility] , Urea nitrogen [Mass/Vol] 15 mg/dL Normal 7-25 [facility] Comment on above: Performed By: #### C BC, CMP, FE and TIBC, JAQUELINE, [id number] #### [place] [address] [place] #### METH, EPO #### [facility] , Erythropoetin (EPO), Serumon 01-17-2023 Erythropoetin (EPO), Serum 23.0 m[iU]/mL High 2.6-18.5 [facility] Comment on above: Result Comment: [employer] DxI 800 Immunoassay System Values obtained with different assay methods or kits cannot be used interchangeably. Results cannot be interpreted as absolute evidence of the presence or absence of malignant disease. Performed at: [address] [id number] Virologist: Hieu Willams PhD, Phone: [phone] PERFORMED BY: [place] [address] PATHOLOGIST [employer] AND WEIGH MACHINE OPERATOR YU ACOSTA M.D. Performed By: #### C BC, CMP, FE and TIBC, JAQUELINE, [id number] #### [address] #### METH, EPO #### [facility] , Ferritinon 01-17-2023 Ferritin [Mass/Vol] 68.6 ng/mL Normal 11.0-306.8 [facility] Comment on above: Performed By: #### C BC, CMP, FE and TIBC, JAQUELINE, [id number] #### [place] [address] [place] #### METH, EPO #### [facility] , Iron and TIBC Profileon 12-23 % Iron Saturation 45.9 % Normal 20-50 [facility] Comment on above: Performed By: #### C BC, CMP, FE and TIBC, JAQUELINE, [id number] #### [place] [address] [place] #### METH, EPO #### [facility] , Iron [Mass/Vol] 129 ug/dL Normal 50-212 [facility] Comment on above: Performed By: #### C BC, CMP, FE and TIBC, JAQUELINE, [id number] #### [place], [place] [address] [place] #### METH, EPO #### [facility] , Total Iron Binding Capacity 281 ug/dL Normal 255-450 [facility] Comment on above: Performed By: #### C BC, CMP, FE and TIBC, JAQUELINE, [id number] #### [facility] [address] [place] [address] [place] #### METH, EPO #### [facility] , Transferrin [Mass/Vol] 201 mg/dL Low 203-362 [facility] Comment on above: Performed By: #### C BC, CMP, FE and TIBC, JAQUELINE, [id number] #### [facility] [address] [place] [address] [place] #### METH, EPO #### [facility] , Methylmalonic Acidon 023 Methylmalonic Acid 224 Normal 0-378 [facility] Comment on above: Result Comment: This test was developed and its performance characteristics determined by [employer]. It has not been cleared or approved by the Food and Drug Administration. Performed at: [address] [id number] Virologist: Amara Coyne MD, Phone: [phone] Performed By: #### C BC, CMP, FE and TIBC, JAQUELINE, [id number] #### [place] [address] [place] #### METH, EPO #### [facility] , Serum or plasma erythropoiet in (EPO) measurement (units/volume)Ordered By: Lilly Christianson on 01-17-2023 Erythropoietin (EPO) Qn 23.0 mIU/mL 2.6-18.5 [facility] Comment on above: Yaniv Idibon UniC el DxI 800 Immunoassay SystemValues obtained with different assay methods or kits cannotbe used interchangeably. Results cannot be interpreted asabsolute evidence of the presence or absence of malignantdisease.Performed at: [address] [id number] Director: Hieu Willams PhD, Phone: [phone] Serum or plasma methylmalona te measurement (moles/volume)Ordered By: Lilly Christianson on 01-17-2023 Methylmalonate [Moles/Vol] 224 nmol/L 0-378 [facility] Comment on above: This test was develo ped and its performance characteristicsdetermined by [facility]. It has not been cleared orapproved by the Food and Drug Administration.Performed at: [address] [id number] Director: Amara Coyne MD, Phone: [phone] Vit. B12/Folate Profileon Cobalamin (Vitamin B12) [Mass/Vol] 490 pg/mL Normal 180-914 [facility] Comment on above: Performed By: #### C BC, CMP, FE and TIBC, JAQUELINE, [id number] #### [address] #### METH, EPO #### [facility] , Folate 6.8 ng/mL Normal >5.9 [facility] Comment on above: Result Comment: Sherry te reference range: >5.9 ng/ml The WHO technical consultation on folate and vitamin b12 deficiencies has determined that folate concentrations less than 4 ng/ml are considered deficient. PERFORMED BY: [place] [address] PATHOLOGIST GAUGE AND WEIGH MACHINE OPERATOR YU ACOSTA M.D. Performed By: #### C BC, CMP, FE and TIBC, JAQUELINE, [id number] #### [address] #### METH, EPO #### [facility] , Complete Blood Count Auto Di ffon 10-22-2022 Basophils (Bld) [#/Vol] 0.1 10*3/uL Normal 0.0-0.2 [facility] Comment on above: Result Comment: PERF ORMED BY: [place] [address] PATHOLOGIST GAUGE AND WEIGH MACHINE OPERATOR YU ACOSTA M.D. Performed By: #### C BC, CMP, FE and TIBC, JAQUELINE, [id number] #### [place] [address] [place] #### METH, EPO #### [facility] , Basophils/100 WBC (Bld) 0.7 % Normal . [facility] Comment on above: Performed By: #### C BC, CMP, FE and TIBC, JAQUELINE, [id number] #### [place] [address] [place] #### METH, EPO #### [facility] , Eosinophils (Bld) [#/Vol] 0.4 10*3/uL Normal 0.0-0.45 [facility] Comment on above: Performed By: #### C BC, CMP, FE and TIBC, JAQUELINE, [id number] #### [place] [address] [place] #### METH, EPO #### [facility] , Eosinophils/100 WBC (Bld) 3.4 % Normal . [facility] Comment on above: Performed By: #### C BC, CMP, FE and TIBC, JAQUELINE, [id number] #### [place] [address] [place] #### METH, EPO #### [facility] , Erythrocyte distribution width (RBC) [Ratio] 15.8 % High 11.9-15.3 [facility] Comment on above: Performed By: #### C BC, CMP, FE and TIBC, JAQUELINE, [id number] #### [place] [address] [place] #### METH, EPO #### [facility] , Hematocrit (Bld) [Volume fraction] 39.3 % Normal 34.0-46.4 [facility] Comment on above: Performed By: #### C BC, CMP, FE and TIBC, JAQUELINE, [id number] #### [place] [address] [place] #### METH, EPO #### [facility] , Hemoglobin (Bld) [Mass/Vol] 12.8 g/dL Normal 11.8-15.4 [facility] Comment on above: Performed By: #### C BC, CMP, FE and TIBC, JAQUELINE, [id number] #### [place] [address] [place] #### METH, EPO #### [facility] , Lymphocytes (Bld) [#/Vol] 3.2 10*3/uL Normal 1.00-4.8 [facility] Comment on above: Performed By: #### C BC, CMP, FE and TIBC, JAQUELINE, [id number] #### [address] #### METH, EPO #### [facility] , Lymphocytes/100 WBC (Bld) 25.9 % Normal . [facility] Comment on above: Performed By: #### C BC, CMP, FE and TIBC, JAQUELINE, [id number] #### [place] [address] [place] #### METH, EPO #### [facility] , MCH (RBC) [Entitic mass] 29.5 pg Normal 24.7-34.3 [facility] Comment on above: Performed By: #### C BC, CMP, FE and TIBC, JAQUELINE, [id number] #### [place] [address] [place] #### METH, EPO #### [facility] , MCV (RBC) [Entitic vol] 90.6 fL Normal 80-100 [facility] Comment on above: Performed By: #### C BC, CMP, FE and TIBC, JAQUELINE, [id number] #### [place] [address] [place] #### METH, EPO #### [facility] , Mean Corpuscular HGB Conc 32.6 g/dL Normal 32.0-35.0 [facility] Comment on above: Performed By: #### C BC, CMP, FE and TIBC, JAQUELINE, [id number] #### [address] #### METH, EPO #### [facility] , Monocytes (Bld) [#/Vol] 0.9 10*3/uL High 0.0-0.8 [facility] Comment on above: Performed By: #### C BC, CMP, FE and TIBC, JAQUELINE, [id number] #### [place] [address] [place] #### METH, EPO #### [facility] , Monocytes/100 WBC (Bld) 7.1 % Normal . [facility] Comment on above: Performed By: #### C BC, CMP, FE and TIBC, JAQUELINE, [id number] #### [address] #### METH, EPO #### [facility] , Neutrophils (Bld) [#/Vol] 7.9 10*3/uL High 1.8-7.7 [facility] Comment on above: Performed By: #### C BC, CMP, FE and TIBC, JAQUELINE, [id number] #### [place] [address] [place] #### METH, EPO #### [facility] , Neutrophils/100 WBC (Bld) 62.9 % Normal . [facility] Comment on above: Performed By: #### C BC, CMP, FE and TIBC, JAQUELINE, [id number] #### [place] [address] [place] #### METH, EPO #### [facility] , NRBC% 0.1 /100{WBC} Normal 0-0.5 [facility] Comment on above: Performed By: #### C BC, CMP, FE and TIBC, JAQUELINE, [id number] #### [place] [address] [place] #### METH, EPO #### [facility] , Platelet mean volume (Bld) [Entitic vol] 10.4 fL Normal 6.3-10.7 [facility] Comment on above: Performed By: #### C BC, CMP, FE and TIBC, JAQUELINE, [id number] #### [address] #### METH, EPO #### [facility] , Platelets (Bld) [#/Vol] 199 10*3/uL Normal 150-450 [facility] Comment on above: Performed By: #### C BC, CMP, FE and TIBC, JAQUELINE, [id number] #### [address] #### METH, EPO #### [facility] , RBC (Bld) [#/Vol] 4.34 10*6/uL Normal 3.60-5.00 [facility] Comment on above: Performed By: #### C BC, CMP, FE and TIBC, JAQUELINE, [id number] #### [place] [address] [place] #### METH, EPO #### [facility] , WBC (Bld) [#/Vol] 12.5 10*3/uL High 3.8-11.6 [facility] Comment on above: Performed By: #### C BC, CMP, FE and TIBC, JAQUELINE, [id number] #### [address] #### METH, EPO #### [facility] , Comprehensive Metabolic Pane mikki 10-22-2022 Albumin [Mass/Vol] 3.9 g/dL Normal 3.5-5.7 [facility] Comment on above: Performed By: #### C BC, CMP, FE and TIBC, JAQUELINE, [id number] #### [place] [address] [place] #### METH, EPO #### [facility] , Albumin/Globulin [Mass ratio] 1.5 {ratio} Normal [facility] Comment on above: Performed By: #### C BC, CMP, FE and TIBC, JAQUELINE, [id number] #### [place] [address] [place] #### METH, EPO #### [facility] , ALP [Catalytic activity/Vol] 161 U/L High 34-104 [facility] Comment on above: Performed By: #### C BC, CMP, FE and TIBC, JAQUELINE, [id number] #### [place] [address] [place] #### METH, EPO #### [facility] , ALT [Catalytic activity/Vol] 16 U/L Normal 7-52 [facility] Comment on above: Performed By: #### C BC, CMP, FE and TIBC, JAQUELINE, [id number] #### [address] #### METH, EPO #### [facility] , Anion gap [Moles/Vol] 13.9 mmol/L Normal 6.0-15.0 Th e [facility] Comment on above: Performed By: #### C BC, CMP, FE and TIBC, JAQUELINE, [id number] #### [place] [address] [place] #### METH, EPO #### [facility] , AST [Catalytic activity/Vol] 13 U/L Normal 13-39 [facility] Comment on above: Performed By: #### C BC, CMP, FE and TIBC, JAQUELINE, [id number] #### [facility] [address] [place] [address] [place] #### METH, EPO #### [facility] , Bilirubin [Mass/Vol] 0.3 mg/dL Normal 0.3-1.0 [facility] Comment on above: Performed By: #### C BC, CMP, FE and TIBC, JAQUELINE, [id number] #### [facility] [address] [place] [address] [place] #### METH, EPO #### [facility] , Calcium [Mass/Vol] 8.9 mg/dL Normal 8.6-10.3 [facility] Comment on above: Performed By: #### C BC, CMP, FE and TIBC, JAQUELINE, [id number] #### [place] [address] [place] #### METH, EPO #### [facility] , Chloride [Moles/Vol] 100 mmol/L Normal 98-107 [facility] Comment on above: Performed By: #### C BC, CMP, FE and TIBC, JAQUELINE, [id number] #### [place] [address] [place] #### METH, EPO #### [facility] , CO2 [Moles/Vol] 28.4 mmol/L Normal 21.0-31.0 [facility] Comment on above: Performed By: #### C BC, CMP, FE and TIBC, JAQUELINE, [id number] #### [place] [address] [place] #### METH, EPO #### [facility] , Creatinine [Mass/Vol] 1.40 mg/dL High 0.60-1.20 [facility] Comment on above: Performed By: #### C BC, CMP, FE and TIBC, JAQUELINE, [id number] #### [place] [address] [place] #### METH, EPO #### [facility] , Creatinine Clr Calc Pharmacy 56.02 Normal [facility] Comment on above: Performed By: #### C BC, CMP, FE and TIBC, JAQUELINE, [id number] #### [place] [address] [place] #### METH, EPO #### [facility] , GFR/1.73 sq M.predicted MDRD (S/P/Bld) [Vol rate/Area] 44.155 mL/min/{1.73_m2} Normal [facility] Comment on above: Performed By: #### C BC, CMP, FE and TIBC, JAQUELINE, [id number] #### [place] [address] [place] #### METH, EPO #### [facility] , Globulin (S) [Mass/Vol] 2.6 g/dL Normal [facility] Comment on above: Performed By: #### C BC, CMP, FE and TIBC, JAQUELINE, [id number] #### [place] [address] [place] #### METH, EPO #### [facility] , Glucose [Mass/Vol] 281 mg/dL High 70-100 [facility] Comment on above: Result Comment: [place] Glucose Reference Range is dependent on time and content of last meal. Glucose of more than 200 mg/dL in a nonstressed, ambulatory subject supports the diagnosis of Diabetes Mellitus. ADA recommended reference range Performed By: #### C BC, CMP, FE and TIBC, JAQUELINE, [id number] #### [place] [address] [place] #### METH, EPO #### [facility] , Potassium [Moles/Vol] 4.3 mmol/L Normal 3.5-5.1 [facility] Comment on above: Performed By: #### C BC, CMP, FE and TIBC, JAQUELINE, [id number] #### [place] [address] [place] #### METH, EPO #### [facility] , Protein [Mass/Vol] 6.5 g/dL Normal 6.4-8.9 [facility] Comment on above: Performed By: #### C BC, CMP, FE and TIBC, JAQUELINE, [id number] #### [place] [address] [place] #### METH, EPO #### [facility] , Sodium [Moles/Vol] 138 mmol/L Normal 136-145 [facility] Comment on above: Performed By: #### C BC, CMP, FE and TIBC, JAQUELINE, [id number] #### [place] [address] [place] #### METH, EPO #### [facility] , Urea nitrogen [Mass/Vol] 17 mg/dL Normal 7-25 [facility] Comment on above: Performed By: #### C BC, CMP, FE and TIBC, JAQUELINE, [id number] #### [address] #### METH, EPO #### [facility] , Erythropoetin (EPO), Serumon 10-22-2022 Erythropoetin (EPO), Serum 31.7 m[iU]/mL High 2.6-18.5 [facility] Comment on above: Result Comment: [employer] DxI 800 Immunoassay System Values obtained with different assay methods or kits cannot be used interchangeably. Results cannot be interpreted as absolute evidence of the presence or absence of malignant disease. Performed at: [address] [id number] Virologist: Hieu Willams PhD, Phone: [phone] PERFORMED BY: [place] [address] PATHOLOGIST GAUGE AND WEIGH MACHINE OPERATOR YU ACOSTA M.D. Performed By: #### C BC, CMP, FE and TIBC, JAQUELINE, [id number] #### [place] [address] [place] #### METH, EPO #### [facility] , Ferritinon 10-22-2022 Ferritin [Mass/Vol] 82.9 ng/mL Normal 11.0-306.8 [facility] Comment on above: Performed By: #### C BC, CMP, FE and TIBC, JAQUELINE, [id number] #### [place] [address] [place] #### METH, EPO #### [facility] , Iron and TIBC Profileon % Iron Saturation 34.3 % Normal 20-50 [facility] Comment on above: Performed By: #### C BC, CMP, FE and TIBC, JAQUELINE, [id number] #### [place] [address] [place] #### METH, EPO #### [facility] , Iron [Mass/Vol] 94 ug/dL Normal 50-212 [facility] Comment on above: Performed By: #### C BC, CMP, FE and TIBC, JAQUELINE, [id number] #### [address] #### METH, EPO #### [facility] , Total Iron Binding Capacity 274 ug/dL Normal 255-450 [facility] Comment on above: Performed By: #### C BC, CMP, FE and TIBC, JAQUELINE, [id number] #### [place] [address] [place] #### METH, EPO #### [facility] , Transferrin [Mass/Vol] 196 mg/dL Low 203-362 [facility] Comment on above: Performed By: #### C BC, CMP, FE and TIBC, JAQUELINE, [id number] #### [place] [address] [place] #### METH, EPO #### [facility] , Methylmalonic Acidon 023 Methylmalonic Acid 270 Normal 0-378 [facility] Comment on above: Result Comment: This test was developed and its performance characteristics determined by [facility]. It has not been cleared or approved by the Food and Drug Administration. Performed at: [address] [id number] Virologist: Amara Coyne MD, Phone: [phone] Performed By: #### C BC, CMP, FE and TIBC, JAQUELINE, [id number] #### [address] #### METH, EPO #### [facility] , Vit. B12/Folate Profileon Cobalamin (Vitamin B12) [Mass/Vol] pg/mL High 180-914 [facility] Comment on above: Performed By: #### C BC, CMP, FE and TIBC, JAQUELINE, [id number] #### [address] #### METH, EPO #### [facility] , Folate 5.7 ng/mL Low >5.9 [facility] Comment on above: Result Comment: Sherry te reference range: >5.9 ng/ml The WHO technical consultation on folate and vitamin b12 deficiencies has determined that folate concentrations less than 4 ng/ml are considered deficient. PERFORMED BY: [place] [address] PATHOLOGIST GAUGE AND WEIGH MACHINE OPERATOR YU ACOSTA M.D. Performed By: #### C BC, CMP, FE and TIBC, JAQUELINE, [id number] #### [place] [address] [place] #### METH, EPO #### [facility] , CREATININE BLDon 10-07-2022 Creatinine [Mass/Vol] 1.06 mg/dL High 0.58-0.96 [facility] Comment on above: Order Comment: Speci men Type: BLOOD SPECIMEN Ordering Facility: [facility] Address: [address] [place] [address] Performed By: #### C RET1 #### [facility] CLIA [id number] [address] [place] [address] Creatinine and Glomerular filtration rate.predicted panel (S/P/Bld) 62 mL/min/1.73m??? Normal >=60 [facility] Comment on above: Order Comment: Speci men Type: BLOOD SPECIMEN Ordering Facility: [facility] Address: [address] [place] [address] Result Comment: Terri mated Glomerular Filtration Rate [...] GFR. Performed By: #### C RET1 #### [facility] CLIA [id number] [address] [place] [address] CREATININE BLDOrdered By: David Chavis on 10-07-2022 Creatinine [Mass/Vol] 1.06 mg/dL High 0.58 - 0.96 mg/dL [facility] GFR/1.73 sq M.predicted among non-blacks MDRD (S/P/Bld) [Vol rate/Area] 62 mL/min/{1.73_m2} - PINF [facility] Comment on above: Estimated Glomerular Filtration Rate (eGFR) is calculated using the 2020 CKD-EPI creatinine equation. This equation utilizes serum creatinine, sex, and age as parameters. The creatinine assay has traceable calibration to isotope dilution-mass spectrometry. Refer to KDIGO guidelines for clinical interpretation. In patients with unstable renal function, e.g. those with acute kidney injury, the eGFR may not accurately reflect actual GFR. Interpretation and review of laboratory results Abnormal [facility] CT KIDNEY WO/W IVCONon 10-07 CT KIDNEY WO/W IVCON * * *Final Report* * * DATE OF EXAM: Oct 07 2022 11:27AM [facility] 0546 - CT KIDNEY WO/W IVCON / [...] No pulmonary parenchymal nodule or pleural effusion. Play Reader (topogram) images: No additional findings. IMPRESSION: 3.3 [...] any questions regarding this interpretation, please call [phone]. If you are unable to reach us at the number above, please feel free to contact [facility] at [phone]. [id number] Normal [facility] CT Kidney WO and W contrast Gabriela 10-07-2022 IMPRESSION: 3.3 cm RIGHT upper pole renal [...] any questions regarding this interpretation, please call [phone]. If you are unable to reach us at the number above, please feel free to contact [facility] at [phone]. DIVISION OF RADIOLOGY * * *Final Report* * * DATE OF EXAM: Oct 07 2022 11:27AM [facility] 0546 - CT KIDNEY WO/W IVCON / [...] No pulmonary parenchymal nodule or pleural effusion. Play Reader (topogram) images: No additional findings. DIVISION OF RADIOLOGY Provider, [facility] - 10/07/2022 * * *Final Report* * * DATE OF EXAM: Oct 07 2022 11:27AM [facility] 0546 - CT KIDNEY WO/W IVCON / [...] No pulmonary parenchymal nodule or pleural effusion. Play Reader (topogram) images: No additional findings. IMPRESSION IMPRESSION: 3.3 cm RIGHT upper pole renal [...] any questions regarding this interpretation, please call [phone]. If you are unable to reach us at the number above, please feel free to contact [facility] at [phone]. [facility] Rad[facility] Study observation (narrative) [facility] CT Kidney WO and W contrast IVOrdered By: [facility]cf Provider on 10-07-2022 [facility] C. DIFF PCRon 06-18-2022 C. DIFFICILE PCR Negative Normal NEGATIVE [facility] Comment on above: Performed By: #### C DIFPOC #### [facility] [address] [address] [address] Naz Crouch Albumin [Mass/volume] in Ser um or PlasmaOrdered By: Joanne Brown on 06-16-2022 Albumin [Mass/Vol] 3.3 g/dL 2.9-4.4 [facility] IgA [Mass/volume] in Serum o r PlasmaOrdered By: Joanne rBown on 06-16-2022 IgA [Mass/Vol] 224 mg/dL 87-352 [facility] IgG [Mass/volume] in Serum o r PlasmaOrdered By: Joanne Brown on 06-16-2022 IgG [Mass/Vol] 1023 mg/dL [phone] [facility] IgM [Mass/volume] in Serum o r PlasmaOrdered By: Joanne Brown on 06-16-2022 IgM [Mass/Vol] 50 mg/dL 26-217 [facility] Comment on above: Performed at: [facility] [address] [id number] Director: Hieu Willams PhD, Phone: [phone] Immunoglobulin light chains. kappa.free [Mass/volume] in SerumOrdered By: Joanne Brown on 06-16-2022 Immunoglobulin light chains.kappa.free (S) [Mass/Vol] 47.9 mg/L 3.3-19.4 [facility] Immunoglobulin light chains. kappa.free/Immunoglobulin light chains.lambda.free [MassOrdered By: Joanne Brown on 06-16-2022 Immunoglobulin light chains.kappa.free/Immu noglobulin light chains.lambda.free (S) [Mass ratio] 1.89 0.26-1.65 [facility] Immunoglobulin light chains. lambda.free [Mass/volume] in Serum or PlasmaOrdered By: Joanne Brown on 06-16-2022 Immunoglobulin light chains.lambda.free [Mass/Vol] 25.3 mg/L 5.7-26.3 [facility] No Panel InformationOrdered By: Joanne Brown on 06-16-2022 Protein Electrophoresis M-Anam Not observed g/dL Not Observed [facility] Protein Electrophoresis Note See comment . [facility] Comment on above: Protein electrophore sis scan will follow via computer,mail, or cow tester delivery.Performed at: [facility] [facility] [address] [id number] Director: Hieu Willams PhD, Phone: [phone] Serum Immunofixation See comment . [facility] Comment on above: No monoclonality det ected. Protein [Mass/volume] in Ser um or PlasmaOrdered By: Joanne Brown on 06-16-2022 Protein [Mass/Vol] 6.4 g/dL 6.0-8.5 [facility] Serum globulin measurement ( mass/volume)Ordered By: Joanne Brown 06-16-2022 Globulin (S) [Mass/Vol] 3.1 g/dL 2.2-3.9 [facility] Serum or plasma albumin/glob ulin mass ratioOrdered By: Joanne Brown 06-16-2022 Albumin/Globulin [Mass ratio] 1.1 {ratio} 0.7-1.7 [facility] Serum or plasma alpha 1 glob ulin measurement by electrophoresis (mass/volume)Ordered By: Joanne Kevin on 06-16-2022 Alpha 1 globulin Elph [Mass/Vol] 0.3 g/dL 0.0-0.4 [facility] Serum or plasma alpha 2 glob ulin measurement by electrophoresis (mass/volume)Ordered By: Joanne Kevin on 06-16-2022 Alpha 2 globulin Elph [Mass/Vol] 1.0 g/dL 0.4-1.0 [facility] Serum or plasma beta globuli n measurement by electrophoresis (mass/volume)Ordered By: Joanne Kevin on 06-16-2022 Beta globulin Elph [Mass/Vol] 1.0 g/dL 0.7-1.3 [facility] Serum or plasma gamma globul in measurement by electrophoresis (mass/volume)Ordered By: Joanne Kevin on 06-16-2022 Gamma globulin Elph [Mass/Vol] 0.9 g/dL 0.4-1.8 [facility] Glucose Glucometer (BldC) [M ass/Vol]Ordered By: Bebo Sims on 06-02-2022 Glucose [Mass/Vol] 118 mg/dL [facility] Comment on above: Random Glucose Refer ence Range is dependent on time and content of last meal. Glucose of more than 200 mg/dL in a nonstressed, ambulatory subject supports the diagnosis of Diabetes Mellitus. CBC AUTO DIFFon 04-22-2022 BASO # 0.1 103/ul Normal 0.0-0.1 [facility] Comment on above: Performed By: #### C BC #### [facility] [address] [place] [address] Dr. Naz Crouch Basophils/100 WBC (Bld) 0.8 % Normal 0.2-2.0 [facility] Comment on above: Performed By: #### C BC #### [facility] [address] [address] [address] Naz Crouch EO # 0.3 103/ul Normal 0.0-0.7 [facility] Comment on above: Performed By: #### C BC #### [facility] [address] [address] [address] Naz Crouch Eosinophils/100 WBC (Bld) 2.2 % Normal 0.9-7.0 [facility] Comment on above: Performed By: #### C BC #### [facility] [address] [place] [address] Dr. Naz Crouch Erythrocyte distribution width (RBC) [Ratio] 20.0 % Critically high 11.0-15.0 [facility] Comment on above: Performed By: #### C BC #### [facility] [address] [place] [address] Dr. Naz Crouch Hematocrit (Bld) [Volume fraction] 27.6 % Critically low 36.0-48.0 [facility] Comment on above: Performed By: #### C BC #### [facility] [address] [place] [address] Dr. Naz Crouch Hemoglobin (Bld) [Mass/Vol] 7.3 g/dL Critically low 12.0-16.0 [facility] Comment on above: Performed By: #### C BC #### [facility] [address] [place] [address] Dr. Naz Crouch IG # 0.09 10e3/ul Critically high 0.00-0.03 [facility] Comment on above: Performed By: #### C BC #### [facility] [address] [place] [address] Dr. Naz Crouch IG % 0.7 % Critically high 0.0-0.5 [facility] Comment on above: Performed By: #### C BC #### [facility] [address] [place] [address] Dr. Naz Crouch LYMPH # 2.3 103/ul Normal 1.2-3.8 [facility] Comment on above: Performed By: #### C BC #### [facility] [address] [place] [address] Dr. Naz Crouch Lymphocytes/100 WBC (Bld) 17.8 % Critically low 20.5-60.0 [facility] Comment on above: Performed By: #### C BC #### [facility] [address] [place] [address] Dr. Naz Crouch MANUAL DIFF REQ NO Normal [facility] Comment on above: Performed By: #### C BC #### [facility] [address] [place] [address] Dr. Naz Crouch MCH (RBC) [Entitic mass] 18.3 pg Critically low 26.7-34.0 [facility] Comment on above: Performed By: #### C BC #### [facility] [address] [place] [address] Dr. Naz Crouch MCHC (RBC) [Mass/Vol] 26.4 g/dL Critically low 29.9-35.2 [facility] Comment on above: Performed By: #### C BC #### [facility] [address] [place] [address] Dr. Naz Crouch MCV (RBC) [Entitic vol] 69.2 fL Critically low 81.0-99.0 [facility] Comment on above: Performed By: #### C BC #### [facility] [address] [place] [address] Dr. Naz Crouch MONO # 0.8 103/ul Normal 0.3-0.8 [facility] Comment on above: Performed By: #### C BC #### [facility] [address] [place] [address] Dr. Naz Crouch Monocytes/100 WBC (Bld) 6.5 % Normal 1.7-12.0 [facility] Comment on above: Performed By: #### C BC #### [facility] [address] [place] [address] Dr. Naz Crouch NEUT # 9.3 103/ul Critically high 1.4-6.5 [facility] Comment on above: Performed By: #### C BC #### [facility] [address] [place] [address] Dr. Naz Crouch Neutrophils/100 WBC (Bld) 72.0 % Normal 43.0-75.0 [facility] Comment on above: Performed By: #### C BC #### [facility] [address] [place] [address] Dr. Naz Crouch Platelet mean volume (Bld) [Entitic vol] 9.4 fL Critically low 9.5-13.5 [facility] Comment on above: Performed By: #### C BC #### [facility] [address] [place] [address] Dr. Naz Crouch PLT 318 103/ul Normal 150-450 [facility] Comment on above: Performed By: #### C BC #### [facility] [address] [place] [address] Dr. Naz Crouch RBC 3.99 106/ul Critically low 4.20-5.40 [facility] Comment on above: Performed By: #### C BC #### [facility] [address] [place] [address] Dr. Naz Crouch WBC 13.0 103/ul Critically high 4.0-11.0 [facility] Comment on above: Performed By: #### C BC #### [facility] [address] [place] [address] Dr. Naz Crouch GLYCOHEMOGLOBIN A1Con 2022 ADA RECOMMENDATION SEE BELOW Normal [facility] Comment on above: Result Comment: ADA RECOMMENDED LIMIT 4.0 - 6.0 ADA THERAPEUTIC TARGET < 7.0 ACTION SUGGESTED > 7.0 Performed By: #### A 1C #### [facility] [address] [place] [address] Dr. Naz Crouch Glucose [Mass/Vol] 192 mg/dL Normal [facility] Comment on above: Performed By: #### A 1C #### [facility] [address] [place] [address] Dr. Naz Crouch HbA1c (Bld) [Mass fraction] 8.3 % Critically high 4.5-6.2 [facility] Comment on above: Performed By: #### A 1C #### [facility] [address] [place] [address] Dr. Naz Crouch MICROALBUMIN, RAND URon 03- mALB 4.7 mg/L Normal <=30.0 [facility] Comment on above: Performed By: #### M ALBR #### [facility] [address] [address] [address] Naz Crouch PROF 14(COMP METB)on 023 Albumin [Mass/Vol] 3.1 g/dL Critically low 3.4-5.0 [facility] Comment on above: Performed By: #### C MP, T4, TSH #### [facility] [address] [address] [address] Naz Crouch Albumin/Globulin [Mass ratio] 0.8 {ratio} Normal [facility] Comment on above: Performed By: #### C MP, T4, TSH #### [facility] [address] [address] [address] Nza Crouch ALP [Catalytic activity/Vol] 176 U/L Critically high 46-116 [facility] Comment on above: Performed By: #### C MP, T4, TSH #### [facility] [address] [address] [address] Naz Crouch ALT [Catalytic activity/Vol] 18 U/L Normal 14-59 [facility] Comment on above: Performed By: #### C MP, T4, TSH #### [facility] [address] [address] [address] Naz Crouch Anion gap [Moles/Vol] 12.9 mmol/L Normal [facility] Comment on above: Performed By: #### C MP, T4, TSH #### [facility] [address] [address] [address] Naz Crouch AST [Catalytic activity/Vol] 12 U/L Critically low 15-37 [facility] Comment on above: Performed By: #### C MP, T4, TSH #### [facility] [address] [address] [address] Naz Crouch Bilirubin [Mass/Vol] 0.2 mg/dL Normal 0.2-1.0 [facility] Comment on above: Performed By: #### C MP, T4, TSH #### [facility] [address] [address] [address] Naz Crouch Calcium [Mass/Vol] 8.8 mg/dL Normal 8.5-10.1 [facility] Comment on above: Performed By: #### C MP, T4, TSH #### [facility] [address] [address] [address] Naz Crouch Chloride [Moles/Vol] 104 mmol/L Normal 98-107 [facility] Comment on above: Performed By: #### C MP, T4, TSH #### [facility] [address] [address] [address] Naz Crouch CO2 [Moles/Vol] 27.5 mmol/L Normal 21.0-32.0 [facility] Comment on above: Performed By: #### C MP, T4, TSH #### [facility] [address] [place] [address] Dr. Naz Crouch Creatinine [Mass/Vol] 0.89 mg/dL Normal 0.55-1.02 [facility] Comment on above: Performed By: #### C MP, T4, TSH #### [facility] [address] [place] [address] Dr. Naz Crouch EGFR-AF ZAMBIAN >60 Normal >=60 [facility] Comment on above: Performed By: #### C MP, T4, TSH #### [facility] [address] [place] [address] Dr. Naz Crouch EGFR-NON AF ZAMBIAN >60 Normal >=60 [facility] Comment on above: Performed By: #### C MP, T4, TSH #### [facility] [address] [place] [address] Dr. Naz Crouch Globulin (S) [Mass/Vol] 3.9 g/dL Normal [facility] Comment on above: Performed By: #### C MP, T4, TSH #### [facility] [address] [place] [address] Dr. Naz Crouch Glucose [Mass/Vol] 206 mg/dL Critically high 74-106 [facility] Comment on above: Performed By: #### C MP, T4, TSH #### [facility] [address] [place] [address] Dr. Naz Crouch Potassium [Moles/Vol] 4.4 mmol/L Normal 3.5-5.1 [facility] Comment on above: Performed By: #### C MP, T4, TSH #### [facility] [address] [place] [address] Dr. Naz Crouch Protein [Mass/Vol] 7.0 g/dL Normal 6.4-8.2 [facility] Comment on above: Performed By: #### C MP, T4, TSH #### [facility] [address] [place] [address] Dr. Naz Crouch Sodium [Moles/Vol] 140 mmol/L Normal 136-145 [facility] Comment on above: Performed By: #### C MP, T4, TSH #### [facility] [address] [place] [address] Dr. Naz Crouch Urea nitrogen [Mass/Vol] 15.0 mg/dL Normal 7.0-18.0 [facility] Comment on above: Performed By: #### C MP, T4, TSH #### [facility] [address] [place] [address] Dr. Naz Crouch Urea nitrogen/Creatinine [Mass ratio] 16.9 mg/mg Normal [facility] Comment on above: Performed By: #### C MP, T4, TSH #### [facility] [address] [place] [address] Dr. Naz Crouch T4on 04-22-2022 T4 [Mass/Vol] 4.60 ug/dL Critically low 4.80-13.90 [facility] Comment on above: Performed By: #### C MP, T4, TSH #### [facility] [address] [place] [address] Dr. Naz Crouch TSHon 04-22-2022 TSH 2.208 uIU/mL Normal 0.358-3.74 0 [facility] Comment on above: Performed By: #### C MP, T4, TSH #### [facility] [address] [place] [address] Kidney WO and W contrast Gabriela 04-06-2022 IMPRESSION: 1. A 3.3 cm heterogeneously enhancing mass within the medial right renal upper pole is unchanged since 02/01/2022, and remains compatible with a solid renal neoplasm. 2. There is unchanged abutment of the right renal hilar vasculature by the aforementioned right renal mass. The right renal vein and inferior vena cava are patent. 3. No evidence of metastatic disease within the abdomen. Transcribe Date/Time: Apr 06 2022 10:00A Dictated by: TARSHA TURK MD This examination was interpreted and the report reviewed and electronically signed by: TARSHA TURK MD on Apr 06 2022 11:32AM EST Thank you for allowing us to participate in the care of your patient. Should there be any questions regarding this interpretation, please call [phone]. If you are unable to reach us at the number above, please feel free to contact [facility] at [phone]. DIVISION OF RADIOLOGY * * *Final Report* * * DATE OF EXAM: Apr 05 2022 2:16PM [facility] 0546 - CT KIDNEY WO/W IVCON / PROCEDURE REASON: Other specified disorders of kidney and ureter * * * * Physician Interpretation * * * * RESULT: EXAMINATION: CT ABDOMEN (KIDNEY) WITHOUT AND WITH IV CONTRAST CLINICAL HISTORY: Renal mass characterization. TECHNIQUE: Spiral imaging in three phases through [...] dose-length product (DLP) for this visit = 3088 mGy*cm. CT Dose Reduction Employed: mAs-kVp adjusted based on patient size-age COMPARISON: CT abdomen and pelvis 02/01/2022 and 06/15/2021 RESULT: Renal findings RIGHT kidney and vasculature: Right kidney and ureter: Again seen is a 2.6 x 3.3 cm heterogeneously enhancing mass along the medial right renal upper pole (series 11, image 53) (previously 2.6 x 3.3 cm on 02/01/2022). There is unchanged associated abutment of the adjacent renal hilar vasculature. No new or enlarging renal mass is identified. No hydronephrosis. Right renal vasculature: Patent artery and vein. Right adrenal: Normal, no nodules or thickening LEFT kidney and vasculature: Left kidney and ureter: No mass, calculus or hydronephrosis. Left renal vasculature: Patent artery and vein Left adrenal: Normal, no nodules or thickening Retroperitoneal lymphadenopathy and IVC involvement: No retroperitoneal lymphadenopathy. No IVC tumor thrombus. Abdomen: Liver: No mass. Biliary: No bile duct dilation. Gallbladder is absent. Spleen: No mass. No splenomegaly. Pancreas: No mass or duct dilation. GI tract: Imaged bowel loops are normal in caliber. Lymph nodes (other): No abdominal lymphadenopathy. Subcentimeter short axis gastrohepatic ligament and retroperitoneal lymph nodes are unchanged and nonspecific. Mesentery/Peritoneum: No ascites or mass. Retroperitoneum: No mass. Vasculature (other): Vasculature: - Abdominal aorta: Atherosclerotic calcifications without aneurysm. - Celiac and SMA: Patent without stenosis. - Portal venous system (SMV, splenic vein, portal vein and branches): Patent. - Hepatic veins: Patent. - IVC: Patent IVC without thrombus. Bones/Soft Tissues: Degenerative changes involve the lumbar spine. No destructive lytic or blastic osseous abnormality. Lower thorax: Unremarkable. Play Reader (topogram) images: No additional findings. DIVISION OF RADIOLOGY Provider, [facility] - 04/06/2022 * * *Final Report* * * DATE OF EXAM: Apr 05 2022 2:16PM [facility] 0546 - CT KIDNEY WO/W IVCON / PROCEDURE REASON: Other specified disorders of kidney and ureter * * * * Physician Interpretation * * * * RESULT: EXAMINATION: CT ABDOMEN (KIDNEY) WITHOUT AND WITH IV CONTRAST CLINICAL HISTORY: Renal mass characterization. TECHNIQUE: Spiral imaging in three phases through [...] dose-length product (DLP) for this visit = 3088 mGy*cm. CT Dose Reduction Employed: mAs-kVp adjusted based on patient size-age COMPARISON: CT abdomen and pelvis 02/01/2022 and 06/15/2021 RESULT: Renal findings RIGHT kidney and vasculature: Right kidney and ureter: Again seen is a 2.6 x 3.3 cm heterogeneously enhancing mass along the medial right renal upper pole (series 11, image 53) (previously 2.6 x 3.3 cm on 02/01/2022). There is unchanged associated abutment of the adjacent renal hilar vasculature. No new or enlarging renal mass is identified. No hydronephrosis. Right renal vasculature: Patent artery and vein. Right adrenal: Normal, no nodules or thickening LEFT kidney and vasculature: Left kidney and ureter: No mass, calculus or hydronephrosis. Left renal vasculature: Patent artery and vein Left adrenal: Normal, no nodules or thickening Retroperitoneal lymphadenopathy and IVC involvement: No retroperitoneal lymphadenopathy. No IVC tumor thrombus. Abdomen: Liver: No mass. Biliary: No bile duct dilation. Gallbladder is absent. Spleen: No mass. No splenomegaly. Pancreas: No mass or duct dilation. GI tract: Imaged bowel loops are normal in caliber. Lymph nodes (other): No abdominal lymphadenopathy. Subcentimeter short axis gastrohepatic ligament and retroperitoneal lymph nodes are unchanged and nonspecific. Mesentery/Peritoneum: No ascites or mass. Retroperitoneum: No mass. Vasculature (other): Vasculature: - Abdominal aorta: Atherosclerotic calcifications without aneurysm. - Celiac and SMA: Patent without stenosis. - Portal venous system (SMV, splenic vein, portal vein and branches): Patent. - Hepatic veins: Patent. - IVC: Patent IVC without thrombus. Bones/Soft Tissues: Degenerative changes involve the lumbar spine. No destructive lytic or blastic osseous abnormality. Lower thorax: Unremarkable. Play Reader (topogram) images: No additional findings. IMPRESSION IMPRESSION: 1. A 3.3 cm heterogeneously enhancing mass within the medial right renal upper pole is unchanged since 02/01/2022, and remains compatible with a solid renal neoplasm. 2. There is unchanged abutment of the right renal hilar vasculature by the aforementioned right renal mass. The right renal vein and inferior vena cava are patent. 3. No evidence of metastatic disease within the abdomen. Transcribe Date/Time: Apr 06 2022 10:00A Dictated by: TARSHA TURK MD This examination was interpreted and the report reviewed and electronically signed by: TARSHA TURK MD on Apr 06 2022 11:32AM EST Thank you for allowing us to participate in the care of your patient. Should there be any questions regarding this interpretation, please call [phone]. If you are unable to reach us at the number above, please feel free to contact [facility] eRadiology at [phone]. [facility] CT Kidney WO and W contrast IVOrdered By: [facility] Provider on 04-06-2022 [facility] CREATININE BLDOrdered By: Am y White on 04-05-2022 Creatinine [Mass/Vol] 0.91 mg/dL 0.58 - 0.96 mg/dL [facility] GFR/1.73 sq M.predicted among non-blacks MDRD (S/P/Bld) [Vol rate/Area] 74 mL/min/{1.73_m2} - PINF [facility] Comment on above: Estimated Glomerular Filtration Rate (eGFR) is calculated using the 2020 CKD-EPI creatinine equation. This equation utilizes serum creatinine, sex, and age as parameters. The creatinine assay has traceable calibration to isotope dilution-mass spectrometry. Refer to KDIGO guidelines for clinical interpretation. In patients with unstable renal function, e.g. those with acute kidney injury, the eGFR may not accurately reflect actual GFR. Interpretation and review of laboratory results Normal [facility] CT KIDNEY WO/W IVCONon 04-[address] [facility] [address] Kidney WO and W contrast Gabriela 04-05-2022 Radiology Study observation (narrative) [facility] XR CHEST 2V FRONTAL/LATon [facility] XR Chest PA and Lateralon IMPRESSION: No evidence for active cardiopulmonary disease. Transcribe Date/Time: Apr 05 2022 3:39P Dictated by: RAOUL GARNER MD This examination was interpreted and the report reviewed and electronically signed by: RAOUL GARNER MD on Apr 05 2022 3:40PM EST Thank you for allowing us to participate in the care of your patient. Should there be any questions regarding this interpretation, please call [phone]. If you are unable to reach us at the number above, please feel free to contact [facility] at [phone]. DIVISION OF RADIOLOGY * * *Final Report* * * DATE OF EXAM: Apr 05 2022 2:15PM [id number] - XR CHEST 2V FRONTAL/LAT / PROCEDURE REASON: Renal mass, right * * * * Physician Interpretation * * * * RESULT: EXAMINATION: CHEST RADIOGRAPH (2 VIEW FRONTAL & LATERAL) CLINICAL HISTORY: Renal mass, right MQ: XC2_6 EXAM DATE/TIME: 04/05/2022 2:15 PM COMPARISON: No relevant prior studies available. RESULT: Lines, tubes, and devices: None. Lungs and pleura: No consolidation. No lung mass. No pleural effusion. No pneumothorax. Cardiomediastinal silhouette: Normal cardiomediastinal silhouette. Bones and soft tissues: Mild-moderate degenerative change, mild dextroscoliotic curvature of the lumbar spine is appreciated. Surgical clips within the right upper quadrant are noted. DIVISION OF RADIOLOGY Provider, [facility] - 04/05/2022 * * *Final Report* * * DATE OF EXAM: Apr 05 2022 2:15PM [id number] - XR CHEST 2V FRONTAL/LAT / PROCEDURE REASON: Renal mass, right * * * * Physician Interpretation * * * * RESULT: EXAMINATION: CHEST RADIOGRAPH (2 VIEW FRONTAL & LATERAL) CLINICAL HISTORY: Renal mass, right MQ: XC2_6 EXAM DATE/TIME: 04/05/2022 2:15 PM COMPARISON: No relevant prior studies available. RESULT: Lines, tubes, and devices: None. Lungs and pleura: No consolidation. No lung mass. No pleural effusion. No pneumothorax. Cardiomediastinal silhouette: Normal cardiomediastinal silhouette. Bones and soft tissues: Mild-moderate degenerative change, mild dextroscoliotic curvature of the lumbar spine is appreciated. Surgical clips within the right upper quadrant are noted. IMPRESSION IMPRESSION: No evidence for active cardiopulmonary disease. Transcribe Date/Time: Apr 05 2022 3:39P Dictated by: RAOUL GARNER MD This examination was interpreted and the report reviewed and electronically signed by: RAOUL GARNER MD on Apr 05 2022 3:40PM EST Thank you for allowing us to participate in the care of your patient. Should there be any questions regarding this interpretation, please call [phone]. If you are unable to reach us at the number above, please feel free to contact [facility] at [phone]. [facility] Radiology Study observation (narrative) [facility] XR Chest PA and LateralOrder ed By: [facility] Provider on 04-05-2022 [facility] Ambulatory Visit Summaryon 0 03-05-2022 Ambulatory Visit Summary ELMER ELLIS :1965 Visit Date:03/05/2022 Ambulatory Visit Instructions Your Diagnosis Right renal mass Incomplete bladder emptying Tests Performed Urnls Dip Stick Auto w/o Microscopy POC 16916 Your Care Team Attending Physician - Jluis [...] with VENKAT SAWYER, Jluis Jacinto, URL When: Where: [address] [place] [address]- Someone Will Contact You Regarding These Appointments [facility] External Ambulatory Referral, Urology, [facility]. Renal mass, [...] Urnls Dip Stick Auto w/o Microscopy POC 48289 (03/05/2022) Bilirubin Urine Dipstick - 1+ Small Blood Urine Dipstick - Negative Glucose Urine Dipstick - 2+ 500 mg/dl Ketones Urine Dipstick - Trace - 5 mg/dl Leukocytes Urine Dipstick - Negative Nitrite Urine Dipstick - Negative Protein Urine Dipstick - 2+ (100 mg/dl) Specific [place] Urine Dipstick - >=1.030 Urine Appearance Urine [...] on the (more content not included)... Normal [facility] Patient Educationon 03-05-19 Patient Education Urology Renal Mass A renal [...] gives to you. In general: ? Take [id number] and prescription medicines only as told by [...] 09/04/2014 Document Revised: 03/16/2018 Document Reviewed: 03/16/2018 [employer] Patient Education ? 2020 [employer] Normal [facility] Urology Office/Clinic Noteon 01-13-2023 Urology Office/Clinic Note Chief Complaint 6m CT [...] R partial nephrectomy. External referral placed to [facility]. Pt. understands her use of [...] Contact Information VENKAT SAWYER, Jluis Jacinto, URL [address] [place], [place] [id number]- Additional Instructions: Referral for renal mass Patient [...] inactivated 11/21/2020 Recorde (more content not included)... [facility] Comment on above: Result Comment: Elec tronically Signed By: Jluis ROBLEDO MD\.br\Date and Time Signed: 03/05/22 11:17 EST\.br\Electronically Co-Signed By: Sophy Simmons\.br\Date and Time Co-Signed: 03/05/22 11:10 EST\.br\Electronically Co-Signed By: Sophy Simmons\.br\Date and Time Co-Signed: 03/05/22 11:11 EST Lab Reportson 02-05-2022 Lab Reports [id number]:127 [facility] RAD - CT Reporton 02-05-2022 RAD - CT Report [id number]:127 [facility] RAD - CT Report [id number]:[address] [facility] [address] ABD/PELV W CONon 02-03-20 CT [...] by: MICHOACANO MARTIN Date: 2022-02-02 08:28 Normal [facility] Reminderson 02-02-2022 Reminders - From: Tahmina Hanson To: GIOVANNI Robledo; Sent: 07/29/2021 07:40:04 EDT Show up: 12/22/2021 07:40:00 EDT Subject: Ct scan Reminder/Recall Pt needs Ct scan ABD/Pelvis with contrast prior to Jan appt will send order to [facility]. [facility] never received her order will re fax to [facility] nothing at [facility] yet and unable to get ahold of CS pt will call to schedule she doesnt have insurance. CT done 02/01/2022 at [facility] will drop results into pt's chart has f/u 03/01/2022 Normal [facility] CREATININEon 02-01-2022 Creatinine [Mass/Vol] 1.00 mg/dL Normal 0.55-1.02 [facility] Comment on above: Performed By: #### C SERGEY #### [facility] [address] [place] [address] Dr. Naz Crouch EGFR-AF ZAMBIAN >60 Normal >=60 [facility] Comment on above: Performed By: #### C SERGEY #### [facility] [address] [place], [place] [address] Dr. Naz Crouch EGFR-NON AF ZAMBIAN 57 mL/min/1.73m2 Critically low >=60 [facility] Comment on above: Performed By: #### C SERGEY #### [facility] [address] [place], [place] [address] Dr. Naz Crouch Physician Orderon 01-11-2022 Physician Order [id number]:127 Normal [facility] CNOVon 11-09-2021 CNOV Office Visit (AGPOB1 ) ELMER ELLIS ([id number]) 1965 F Date Time Provider Department 11/09/21 [...] mg by mouth twice daily. MV with Evl-Txqlumqb-Ruclhw (CENTRUM SILVER) 0.4 mg-300 mcg- 250 mcg tab Take by mouth. insulin 75/25 lispro protamine/lispro units/mL (HUMALOG MIX 75-25,U-100,INSULN) 100 units/mL susp as directed. HYDROcodone-acetaminophen (NORCO) 5-325 mg per tablet hydrocodone 5 mg-acetaminophen 325 mg tablet TAKE 1 TO 2 TABLETS BY MOUTH EVERY DAY AT BEDTIME NEEDED nrohffxn-fcz-qxsf-FA-lutein (CENTRUM SILVER WOMEN) 8 mg iron-400 mcg-300 [...] been ambula (more content not included)... Normal [facility] Osvaldo 10-13-2021 CNPN Telephone (AGPOB1) ELMER ELLIS ([id number]) 1965 F Date Time Provider Department 10/13/21 LILLY TONY AGPOB1 During your visit today, [...] bear any weight. Patient has taken 1 Junction about an hour ago and said it [...] by mouth twice daily. - MV with Bwp-Xabnioeq-Dvfvod (CENTRUM SILVER) 0.4 mg-300 mcg- 250 mcg tab Take by mouth. - insulin 75/25 lispro protamine/lispro units/mL (HUMALOG MIX 75-25,U-100,INSULN) 100 units/mL susp as directed. - HYDROcodone-acetaminophen (NORCO) 5-325 mg per tablet hydrocodone 5 mg-acetaminophen 325 mg tablet TAKE 1 TO 2 TABLETS BY MOUTH EVERY DAY AT BEDTIME NEEDED - mnbtyywh-arm-jamf-FA-lutein (CENTRUM SILVER WOMEN) 8 mg iron-400 mcg-300 [...] Of Date: 10/13/2021 (None) Encounter Status:Closed by FILOEMNA MADRIGAL on 10/13/21 [facility] CNOVon 10-12-2021 CNOV Office Visit (AGPOB1 ) LEMER ELLIS ([id number]) 1965 F Date Time Provider Department 10/12/21 [...] mg by mouth twice daily. MV with Hkh-Twpgfjzq-Zymisf (CENTRUM SILVER) 0.4 mg-300 mcg- 250 mcg tab Take by mouth. insulin 75/25 lispro protamine/lispro units/mL (HUMALOG MIX 75-25,U-100,INSULN) 100 units/mL susp as directed. HYDROcodone-acetaminophen (NORCO) 5-325 mg per tablet hydrocodone 5 mg-acetaminophen 325 mg tablet TAKE 1 TO 2 TABLETS BY MOUTH EVERY DAY AT BEDTIME NEEDED qvwbxqcy-dbx-kzzc-FA-lutein (CENTRUM SILVER WOMEN) 8 mg iron-400 mcg-300 [...] fracture sustaine (more content not included)... Normal [facility] CNOVon 09-21-2021 CNOV Office Visit (AGPOB1 ) ELMER ELLIS ([id number]) 1965 F Date Time Provider Department 09/21/21 3:00 PM LILLY TONY AGPOB1 During your visit [...] with nonweightbearing status. She will occasionally take Junction for pain relief which is effective. She is also supplemented with tjkm-oqd-ddthwci pain medications. Her medical history significant for Beatties, coronary artery disease, diabetes and associated lower extremity neuropathy, DVT requiring Plavix and Xarelto for anticoagulation. 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 She also has kidney cancer that is [...] by mouth twice daily. - MV with Jkl-Dlgcuswf-Bsguwh (CENTRUM SILVER) 0.4 mg-300 mcg- 250 mcg tab Take by mouth. - insulin 75/25 lispro protamine/lispro units/mL (HUMALOG MIX 75-25,U-100,INSULN) 100 units/mL susp as directed. - HYDROcodone-acetaminophen (NORCO) 5-325 mg per tablet hydrocodone 5 mg-acetaminophen 325 mg tablet TAKE 1 TO 2 TABLETS BY MOUTH EVERY DAY AT BEDTIME NEEDED - rhbwlgzd-dgi-tvhe-FA-lutein (CENTRUM SILVER WOMEN) 8 mg iron-400 mcg-300 [...] lateral med (more content not included)... Normal [facility]20[facility] JOSHUAELMER BALBUENA ([id number]) 1965 F Date Time Provider Department 09/16/21 [facility] AGPOB1 During your visit today, we recorded the following information about you: Jared Alcantar Celestine [facility] 09/16/2021 9:05 AM Signed ----- [...] which facility was the patient seen at: [facility] / 09.12.2021 Was an appointment scheduled (Y/N): n Person calling if other than patient: n Return call to if other than patient: n Best contact number: [phone] Thank you, Peggy Wigginsno September 15, 2021 4:27 PM [facility] 09/16/2021 10:18 AM Signed Called and spoke to patient regarding L ankle fracture OS 09/12/21. Patient was seen at [facility] ED after falling she fell in the shower. Patient injurred L knee and L ankle, only ankle if broken. Patient was splinted and is now using a wheelchair. Scheduled with Dr. Tony 09/21/21 3:00pm POB. Patient agreeable to appointment date, time and location. [facility] September 16, 2021 10:18 AM Allergies As of Date: 09/16/2021 (No Known Allergies) Date Reviewed: 09/12/2021 Reviewed by: Joi Mariscal RN - Fully Assessed Reason for Visit: ER F/U [41] Problem List As Of Date: 09/16/2021 (None) Encounter Status:Closed by [facility] CERTIFIED NURSING ASSISTANT JARED GARCIA on 09/16/21 [facility] 09-12-2021 ALLIED HEALTH HNO ID: [id number] Author: RT Herman([place]) Service: Radiology Author Type: Technologist Type: Allied [...] RT Herman(R) September 12, 2021 2:38 PM [facility] HNO ID: [id number] Author: RT Alexandra(R) Service: Radiology Author Type: [...] RT Alexandra(R) September 12, 2021 12:21 PM [facility] CONSULTon 09-12-2021 CONSULT HNO ID: [id number] Author: Stoney Bauer MD Service: Orthopaedic Surgery Author Type: Resident Type: Consults Filed: 09/12/2021 11:43 PM Note Text: Attestation signed by Lilly Tony MD at 09/13/2021 6:54 PM Lilly Tony M.D. Attending Staff, Department of Orthopedic Surgery [facility] Orthopaedic Surgery Consultation Note Reason for [...] in the last 72 hours. Invalid input(s): [facility] Imaging XR of left tib/fib, ankle, [...] MD September 12, 2021 11:43 PM Normal [facility] ED NOTEon 09-12-2021 ED NOTE HNO ID: [id number] Author: Joi Mariscal RN Service: Emergency Medicine Author Type: Registered Nurse Type: ED Notes Filed: 09/12/2021 11:13 AM Note Text: X-ray notified pt ready for imaging. Normal [facility] ED PROV NOTEon 09-12-2021 ED PROV NOTE HNO ID: [id number] Author: Alexander Velázquez APRN.CARLO Service: Emergency Medicine Author Type: Nurse Practitioner [...] pain medication and follow up with her regional telecommunications specialist that she already has seen previous. Patient in no acute distress vitals are stable. RETURN PRECAUTIONS Patient discharged from the Emergency Department. I do not feel that the patient's evaluation reveals any acute reason for admission at this time. I instructed them to either follow up with their primary care physicia (more content not included)... Normal [facility] XR ANKLE 1V LTon 09-12-2021 XR [...] alignment is otherwise stable. IMPRESSION: See above. Entry Level Drafter: LILLY Transcribe Date/Time: Sep 12 2021 2:45P Dictated by : KEN MCKEON MD This examination was interpreted and the report reviewed and electronically signed by: KEN MCKEON MD on Sep 12 2021 2:46PM EST [id number] Normal [facility] XR ANKLE 3V AP/LAT/OBL LTon 09-12-2021 [...] Left foot first proximal phalangeal head fracture. Entry Level Drafter: LILLY Transcribe Date/Time: Sep 12 2021 12:54P Dictated by : MOE SINGH MD This examination was interpreted and the report reviewed and electronically signed by: MOE SINGH MD on Sep 12 2021 1:00PM EST [id number] Normal [facility] XR FOOT 3V AP/LAT/OBL LTon 0 [...] Left foot first proximal phalangeal head fracture. Entry Level Drafter: LILLY Transcribe Date/Time: Sep 12 2021 12:54P Dictated by : MOE SINGH MD This examination was interpreted and the report reviewed and electronically signed by: MOE SINGH MD on Sep 12 2021 1:00PM EST [id number] Normal [facility] XR KNEE 2V AP/LAT LTon 09-12 [...] Left foot first proximal phalangeal head fracture. Entry Level Drafter: PSCB Transcribe Date/Time: Sep 12 2021 12:54P Dictated by : MOE SINGH MD This examination was interpreted and the report reviewed and electronically signed by: MOE SINGH MD on Sep 12 2021 1:00PM EST [id number] Normal [facility] XR TIBIA FIBULA 2V AP/LAT LT [...] change regarding proximal fibular fracture. No dislocation. Entry Level Drafter: PSCB Transcribe Date/Time: Sep 12 2021 3:23P Dictated by : NIMCO GREEN MD This examination was interpreted and the report reviewed and electronically signed by: NIMCO GREEN MD on Sep 12 2021 3:27PM EST [id number] Normal [facility] Formson 07-29-2021 Forms [id number]:127 Normal [facility] Physician Referralon 022 Physician Referral [id number]:127 Normal [facility] RAD - CT Reporton 07-29-2021 RAD - CT Report [id number]:127 Normal [facility] Ambulatory Visit Summaryon 0 07-27-2021 Ambulatory Visit Summary ELMER ELLIS Asif :1965 Visit Date:07/27/2021 Ambulatory Visit Instructions Your Diagnosis Right renal mass Nocturia Incomplete emptying of bladder Your Care Team Attending Physician - VENKAT SAWYER, Jluis Jacinto Primary Care Physician - Dawit [...] Up with VENKAT SAWYER, RAPHAEL Jimenez When: In 6 months 01/26/2022 EST Comments: [address] scan Where: [facility] [address], [place] [address]- [phone] Medications What How Much When Instructions Unchanged [...] about calorie (more content not included)... Normal [facility] Patient Educationon 07-28-19 Patient Education Nutrition Calorie [...] could (more content not included)... Normal [facility] Urology Office/Clinic Noteon 07-27-2021 Urology Office/Clinic Note Chief Complaint new pt referred for renal mass HPI Staff Elmer is a 55yr old new pt referred for Renal mass. Pt had CT of ABD/pel done at [facility] on 06/15/21. pt says she feels [...] When Contact Information VENKAT SAWYER, Jluis Jacinto, RAPHAEL In 6 months 01/26/2022 EST [facility] [address], [place] [address]- [phone] Additional Instructions: [address] scan Patient Education Renal Mass Calorie Counting for Weight Loss Tahmina Grant, personally scribed for Dr. Robledo on 07/27/2021 10:20:46. . Documentation recorded by the scribe, sisi Hanson, accurately reflects the services(s) I performed and [...] SubCutaneous, BIDAC (more content not included)... Normal [facility] Comment on above: Result Comment: Elec tronically Signed By: VENKAT SAWYER, Jluis Jacinto\.br\Date and Time Signed: 07/27/21 10:26 EDT\.br\Electronically Co-Signed By: Tahmina Hanson\.br\Date and Time Co-Signed: 07/27/21 10:21 EDT GLUCOSE METERon 12-16-2020 Glucose [Mass/Vol] 216 mg/dL High 70-99 [facility] Comment on above: Result Comment: Fast ing GLUCOSE reference range has been updated per (ADA) [employer]'s recommendation. 05/16/2018 Physician notified Performed By: #### L 500.61052 #### Test performed at: [address] [address] Glucose [Mass/Vol] 273 mg/dL High 70-99 [facility] Comment on above: Result Comment: Fast ing GLUCOSE reference range has been updated per (ADA) [employer]'s recommendation. 05/16/2018 Physician notified Performed By: #### L 500.87582 #### Test performed at: [place] [address] OPERATIVE REPORTon OPERATIVE REPORT NAME: BRIAN ELLIS MR#: [id number] SURGEON: Malik Encarnacion DO DATE OF SURGERY: [...] up in 2 weeks. MALIK ENCARNACION DO GF/MODL/[id number] E/S: Malik Encarnacion DO 12/24/20 1255 Electronically Signed [facility] PT NAME: ELMER ELLIS MR#: [id number] [address] [place] [address] ACCT: [id number] : 65 OPERATIVE REPORT Normal [facility] MRI LUMBAR SP W & WO CONTRAS Ton 11-12-2020 MRI LUMBAR SP W & WO CONTRAST STUDY: MRI LUMBAR SP W WO CONTRAST; 11/12/2020 11:18 am INDICATION: LUMBAR POST-LAMINECTOMY SYNDROME. COMPARISON: Lumbar radiographs dated 09/02/2020 and MRI lumbar spine dated 10/31/2019. ACCESSION NUMBER(S): [id number] ORDERING CLINICIAN: Farhan Celeste TECHNIQUE: Multiplanar multisequence [...] granulation tissue components is again evident. Normal [facility] MRI LOW EXT ANY JNT WO CON L Ton 10-29-2020 MRI LOW EXT ANY JNT WO CON LT STUDY: MRI LOW EXT ANY JNT WO CON LT; ; 10/29/2020 11:42 am INDICATION: LEFT HIP PAIN. COMPARISON: None. ACCESSION NUMBER(S): [id number] ORDERING CLINICIAN: Farhan Celeste TECHNIQUE: MR imaging [...] hamstring tendinosis. No acute abnormality seen Normal [facility] LUMB SP COMP W FLEX/EXT 6 VW Son 09-02-2020 LUMB SP COMP W FLEX/EXT 6 VWS STUDY: LUMB SP COMP W FLEX/EXT 6 VWS ; 09/02/2020 11:01 am INDICATION: PAIN. COMPARISON: 10/17/2019 ACCESSION NUMBER(S): [id number] ORDERING CLINICIAN: Farhan Celeste FINDINGS: No acute [...] of the lumbar spine without instability. Normal [facility] MRA HEAD WO CONTRASTon 07-26 MRA HEAD WO CONTRAST [facility] Department of Radiology [address] [place] [phone] Patient Name: ELMER ELLIS : 1965 Sex: F Age: Race: White Pt. Location: 30 Patient Status: D Ordered Date: 06/17/2020 10:35:00 AM Completed Date: 07/26/2020 10:58 AM Requesting Provider: MALIK BENAVIDES V Attending Provider: MALIK BENAVIDES V Report Copy To: Signs & Symptoms: H93.A3 Pulsatile tinnitus, bilateral I10 History: Rupert X1 Stent, R Leg, [facility] April 2020 [facility] auth# [id number] 06/25/20-08/09/20 *ER Comments: evaluate Exam: MRA HEAD [...] canals given the limitations of a large dpbcw-bp-qwck imaging. IMPRESSION: * No aneurysm, thrombus or hemodynamically significant stenosis in the cerebral arteries. Electronically signed: Sharona Carrillo M.D.. Transcribed by: [email or web address], User Resident: Electronically Signed by: SHARONA CARRILLO @ 07/29/2020 08:07 AM Normal [facility] Comment on above: Order Comment: evalu ate MRI BRAIN WO CONTRASTon MRI BRAIN WO CONTRAST [facility] Department of Radiology [address] [place] [phone] Patient Name: ELMER ELLIS : 1965 Sex: F Age: Race: White Pt. Location: Patient Status: D Ordered Date: 06/17/2020 10:35:00 AM Completed Date: 07/26/2020 10:58 AM Requesting Provider: MALIK BENAVIDES V Attending Provider: MALIK BENAVIDES V Report Copy To: Signs & Symptoms: H93.A3 Pulsatile tinnitus, bilateral I10 History: Rupert X1 Stent, R Leg, [facility] April 2020 [facility] AUTH # [id number] 06/24/2020-08/08/2020 [id number] / Comments: evaluate Exam: MRI BRAIN WO [...] well as the dural venous sinuses. Large itqbh-gl-mdpu evaluation of the internal auditory canals is negative for mass. IMPRESSION: * No acute intracranial findings. * Scattered, mild burden of nonspecific T2 weighted/FLAIR hyperintensities. Differential diagnosis includes sequelae of chronic small vessel ischemic disease, Lyme disease, vasculitis, chronic migraines, among others. Electronically signed: Sharona Carrillo M.D.. Transcribed by: [email or web address], User Resident: Electronically Signed by: SHARONA CARRILLO @ 07/29/2020 07:57 AM Normal [facility] Comment on above: Order Comment: evalu ate Vital Signs Date Time Vital Sign Value Performing Clinician Facility 03-24-2023 16:45-0500 Body height 162.6 cm Jenny Borrego MICROFILM CLERK Work Phone: [facility] 03-24-2023 16:45-0500 Body mass index (BMI) [Ratio] 45.93 kg/m2 Jenny Borrego MICROFILM CLERK Work Phone: [facility] 03-24-2023 16:45-0500 Body temperature 97.11 [degF] Jenny Myleshholz MICROFILM CLERK Work Phone: [facility] 03-24-2023 16:45-0500 Body weight 121.38 kg Jenny Shamekahholz MICROFILM CLERK Work Phone: [facility] 03-24-2023 16:45-0500 Diastolic blood pressure 70 mm[Hg] Jenny Aichholz MICROFILM CLERK Work Phone: [facility] 03-24-2023 16:45-0500 Heart rate 76 /min Jenny Aichholz MICROFILM CLERK Work Phone: [facility] 03-24-2023 16:45-0500 Respiratory rate 20 /min Jenny Aichholz MICROFILM CLERK Work Phone: [facility] 03-24-2023 16:45-0500 SaO2% (BldA) [Mass fraction] 97 % Jenny Shamekahernestoz MICROFILM CLERK Work Phone: [facility] 03-24-2023 16:45-0500 Systolic blood pressure 112 mm[Hg] Jenny Shamekascarlettholz MICROFILM CLERK Work Phone: [facility] 10-15-2022 12:17-0400 Body weight 117.03 kg Lex Pickens MD Work Phone: [facility] 07-30-2022 09:06-0400 Body temperature 97.8 [degF] DO Dawit House Work Phone: [facility] 07-30-2022 09:06-0400 Body weight 115.66 kg DO Dawit [facility] Work Phone: [facility] 07-30-2022 09:06-0400 Diastolic blood pressure 72 mm[Hg] DO [facility] Work Phone: [facility] 07-30-2022 09:06-0400 Heart rate 82 /min DO [facility] Work Phone: [facility] 07-30-2022 09:06-0400 Respiratory rate 16 /min DO [facility] Work Phone: [facility] 07-30-2022 09:06-0400 SaO2% (BldA) [Mass fraction] 97 % DO Dawit [facility] Work Phone: [facility] 07-30-2022 09:06-0400 Systolic blood pressure 128 mm[Hg] DO [facility] Work Phone: [facility] 06-16-2022 09:38-0400 Body height 162.56 cm DO [facility] Work Phone: [facility] 06-02-2022 15:31-0400 Diastolic blood pressure 66 mm[Hg] DO [facility] Work Phone: [facility] 06-02-2022 15:31-0400 Heart rate 81 /min DO [facility] Work Phone: [facility] 06-02-2022 15:31-0400 Respiratory rate 18 /min DO Dawit Ba Work Phone: [facility] 06-02-2022 15:31-0400 SaO2% (BldA) [Mass fraction] 96 % DO Dawit Ba Work Phone: [facility] 06-02-2022 15:31-0400 Systolic blood pressure 114 mm[Hg] DO [facility] Work Phone: [facility] 06-02-2022 15:01-0400 Inhaled oxygen flow rate 8 L/min DO Dawit Ba Work Phone: [facility] 06-02-2022 12:09-0400 Body height 162.56 cm DO [facility] Work Phone: [facility] 06-02-2022 12:09-0400 Body temperature 98.7 [degF] DO [facility] Work Phone: [facility] 06-02-2022 12:09-0400 Body weight 117.93 kg DO Dawit [facility] Work Phone: [facility] 03-16-2022 13:36-0500 Body height 162.6 cm Lex Pickens MD Work Phone: [facility] 03-16-2022 13:36-0500 Body weight 120.2 kg Lex Pickens MD Work Phone: [facility] 03-16-2022 13:36-0500 Diastolic blood pressure 80 mm[Hg] Lex Pickens MD Work Phone: [facility] 03-16-2022 13:36-0500 Heart rate 87 /min Lex Pickens MD Work Phone: [facility] 03-16-2022 13:36-0500 Systolic blood pressure 128 mm[Hg] Lex Pickens MD Work Phone: [facility] 10-12-2021 12:53-0400 Body height 162.6 cm Lilly Tony MD Work Phone: [facility] 10-12-2021 12:53-0400 Body weight 117.94 kg Lilly Tony MD Work Phone: [facility] 10-12-2021 12:53-0400 Respiratory rate 20 /min Lilly Tony MD Work Phone: [facility] 07-27-2021 09:31-0400 Blood Pressure Location Jluis ROBLEDO [facility] 07-27-2021 09:31-0400 Diastolic blood pressure 73 mm[Hg] Jluis ORBLEDO [facility] 07-27-2021 09:31-0400 Heart rate 89 /min Jluis ROBLEDO [facility] 07-27-2021 09:31-0400 Systolic blood pressure 120 mm[Hg] Jluis ROBLEDO [facility] Encounters Encounter Date Encounter Type Care Provider Facility Start: 10-19-2023 End: 10-19-2023 ambulatory [facility] Start: 09-21-2023 End: 09-21-2023 ambulatory [facility] Start: 08-18-2023 End: 08-18-2023 ambulatory [facility] Start: 08-08-2023 ambulatory Joanne Brown Facility:[facility] Start: 07-12-2023 End: 07-12-2023 ambulatory LISETTE CUMMINS Not Available Start: 06-23-2023 End: 06-23-2023 ambulatory JENNY BORREGO Not Available Start: 06-15-2023 End: 06-15-2023 [facility] Lex Pickens MD Work Phone: Urology Comment on above: Other specified diso rders of kidney and ureter (Primary Dx); Renal mass; Morbid obesity (HCC); Type 2 diabetes mellitus with diabetic neuropathy, with long-term current use of insulin (HCC) Start: 05-17-2023 End: 05-17-2023 ambulatory LEX PICKENS Facility:[facility] Start: 05-17-2023 End: 05-17-2023 Subsequent hospital visit by physician Arrival Time Radiology Work Phone: Radiology [facility] Comment on above: Renal mass, right [N 28.89] Start: 05-02-2023 End: 05-03-2023 ambulatory WALESKA Mccray APLING Not Available Start: 04-28-2023 Telephone encounter Angie marin APRN.PR SPECIALIST Work Phone: Hematology/Oncology Comment on above: Orders Start: 04-13-2023 End: 04-13-2023 ambulatory DO [facility] Work Phone: [facility] Work Phone: Start: 04-13-2023 End: 04-13-2023 Patient encounter procedure DO Dawit House Work Phone: [facility] [place] Work Phone: Start: 04-13-2023 Registered Recurring DO Ma[facility]ick [facility] Work Phone: [facility] Work Phone: Start: 04-05-2023 Refill Jenny Borrego MICROFILM CLERK Work Phone: [facility] Comment on above: Acute non-recurrent sinusitis of other sinus (Primary Dx) Start: 03-24-2023 End: 03-24-2023 Assay of hemosiderin, quant Jenny Borrego NP Work Phone: [facility] Start: 03-24-2023 End: 03-24-2023 Patient encounter procedure Jenny Borrego NP Work Phone: [facility] Comment on above: Encounter for annual wellness visit (AWV) in Medicare patient (Primary Dx); Type 2 diabetes mellitus with diabetic neuropathy, with long-term current use of insulin (CMS/HCC); CAD in [place] artery (CMS/HCC); Tobacco user; Malignant neoplasm of kidney, unspecified laterality (CMS/HCC); Type 2 diabetes mellitus with insulin therapy (CMS/HCC); Routine general medical examination at health care facility Start: 03-24-2023 End: 03-24-2023 Refill Jenny Borrego MICROFILM CLERK Work Phone: [facility] Comment on above: CAD in [place] artery (CMS/HCC) (Primary Dx) Start: 02-02-2023 End: 02-03-2023 ambulatory WALESKA Mccray APLING Not Available Start: 10-15-2022 End: 10-15-2022 [facility] Lex Pickens MD Work Phone: Urology Comment on above: Renal mass, right (P rimary Dx); Family history of renal cancer; Morbid obesity (HCC); Current every day smoker; Other specified disorders of kidney and ureter Start: 10-15-2022 End: 10-15-2022 ambulatory LEX PICKENS Facility:[facility] Start: 10-07-2022 End: 10-07-2022 ambulatory LEX PICKENS Facility:[facility] Start: 10-07-2022 End: 10-07-2022 Subsequent hospital visit by physician Arrival Time Radiology Work Phone: Radiology Pet CT Comment on above: Other specified diso rders of kidney and ureter [N28.89] Start: 06-18-2022 End: 06-19-[address] DAWIT BA Facility: Start: 06-02-2022 End: 06-02-2022 Admission to same day surgery center DO Dawit Ba Work Phone: [facility] [place] Start: 06-02-2022 End: 06-02-2022 ambulatory Dawit Ba Work Phone: [facility] Work Phone: Start: 04-22-2022 End: 04-23-[address] DAWIT BA Facility: Start: 04-09-2022 End: 04-10-2022 [facility] Lex Pickens MD Work Phone: Urology Comment on above: Other specified diso rders of kidney and ureter (Primary Dx) Start: 04-05-2022 End: 04-05-2022 Subsequent hospital visit by physician Arrival Time Radiology Work Phone: Radiology Pet CT Comment on above: Other specified diso rders of kidney and ureter [N28.89] Renal mass, right [N 28.89] Start: 03-19-2022 Telephone encounter Joi Austin RN R adiology Pet CT Comment on above: Orders (CT) Start: 03-16-2022 End: 03-16-2022 Patient encounter procedure Lex Pickens MD Work Phone: Urology Comment on above: Renal mass, right (P rimary Dx); Factor V Leiden (HCC); Coronary artery disease involving [place] heart without angina pectoris, unspecified vessel or lesion type; Smoker; Morbid obesity (HCC); Other specified disorders of kidney and ureter; Renal mass Start: 03-05-2022 End: 03-06-2022 ambulatory MD Jluis ROBLEDO Facility:[facility] Start: 03-05-2022 End: 03-05-2022 Patient encounter procedure Jluis ROBLEDO [facility] Start: 02-01-2022 End: 02-02-[address] DAWIT BA Facility:[facility] Start: 11-09-2021 End: 11-09-2021 ambulatory DAWIT BA SR Facility:[facility] Start: 10-13-2021 Telephone encounter Lilly pruitt MD Work Phone: [facility] Comment on above: Patient Update Start: 10-12-2021 End: 10-12-2021 ambulatory DAWIT BA SR Facility:[facility] Start: 10-12-2021 End: 10-12-2021 Patient encounter procedure Lilly Tony MD Work Phone: [facility] Comment on above: Closed fracture of l eft ankle, initial encounter (Primary Dx) Start: 09-21-2021 End: 09-21-2021 ambulatory LILLY TONY Facility[facility] Start: 09-16-2021 Telephone encounter Ag Orth Work Phone: [facility] Comment on above: ER F/U Start: 09-12-2021 End: 09-12-2021 Emergency department patient visit DAWIT BA SR Facility:[facility] Start: 09-03-[address] DAWIT BA Facili ty:[facility] Start: 07-27-2021 End: 07-28-2021 ambulatory MD Jluis ROBLEDO Facility:[facility] Start: 07-27-2021 End: 07-27-2021 Patient encounter procedure Jluis ROBLEDO [facility] Start: 06-24-2021 ambulatory MD Jluis ROBLEDO Facil ity:[facility] Procedures Date Procedure Procedure Detail Performing Clinician Start: 05-17-2023 Ct abdomen w/o & w/contrast material Lex Pickens MD Work Phone: Start: 05-17-2023 CREATININE MICHAELD Angie Mcclellan VP CLINICAL RESEARCH.PR SPECIALIST Work Phone: Start: 11-19-2022 Mammography Jenny Borrego MICROFILM CLERK Work Phone: Start: 10-07-2022 Ct abdomen w/o & w/contrast material Lex Pickens MD Work Phone: Start: 10-07-2022 CREATININE BLD Christel Mendoza MD Work Phone: Start: 06-02-2022 Esophagogastroduodenoscopy DO Dawit Nugent use Work Phone: Start: 06-02-2022 Colonoscopy Jenny Salima MICROFILM CLERK Work Phone: Start: 04-05-2022 Ct abdomen w/o & w/contrast material Judson Quiroga MD Work Phone: Start: 04-05-2022 Radiologic exam chest 2 views Judson russell MD Work Phone: Start: 04-05-2022 CREATININE BLD Judson Quiroga MD Work Phone: Abdominal hysterectomy Tatiana ROBLEDO Appendectomy Jluis ROBLEDO Bilateral tubal ligation Elayne ROBLEDO Cholecystectomy Jluis LAU Plan of Treatment Date Care Activity Detail Author Start: 06-02-2032 Screening for malign ant neoplasm of colon [facility] Start: 07-28-2025 Diabetes Screening Diabetes Screenin g [facility] Start: 03-24-2024 Medicare Annual Well ness (AWV) Medicare Annual Wellness (AWV) [facility] Start: 11-20-2023 Screening for malign ant neoplasm of breast Mammogram [facility] Start: 10-23-2023 Covid-19 Vaccine ( season) Covid-19 Vaccine () [facility] Start: 10-23-2023 Covid-19 Vaccine ( season) Covid-19 Vaccine () [facility] Start: 10-23-2023 Influenza vaccination Influenza Vacc ine (#1) [facility] Start: 10-20-2023 Glaucoma screening Diabetes: R etinopathy Screening [facility] Start: 10-12-2023 Hemoglobin A1c measurement HbA1C [facility] Start: 09-28-2023 Urine screening for protein Diabetes: Urine Protein Screening [facility] Start: 06-23-2023 End: 06-23-2023 Patient encounter procedure 06/23/2023 10:30 AM EDT Office Visit [facility] [address] [place] [address] Jenny Borrego, ZELALEM [address] [place] [address] [facility] Start: 05-17-2023 End: 08-16-2023 CREATININE BLD CREATININE BLD Lab Routine Renal mass Expected: 05/17/2023 (Approximate), Expires: 08/16/2023 [facility] Work Phone: Comment on above: Expected: 05/17/2023 (Approximate), Expires: 08/16/2023 Start: 04-22-2023 End: 03-24-2024 Hemoglobin A1c measurement Hemoglobin A1c Lab Routine Type 2 diabetes mellitus with diabetic neuropathy, with long-term current use of insulin ([facility]) Expected: 04/22/2023 (Approximate), Expires: 03/24/2024 [facility] Work Phone: Comment on above: Expected: 04/22/2023 (Approximate), Expires: 03/24/2024 Start: 04-13-2023 Erythropoietin (EPO) [Units/volume] in Serum or Plasma [facility] Start: 04-13-2023 End: 04-13-2023 [facility] Start: 04-12-2023 Hemoglobin A1c measurement Diabetes: Hemoglobin A1C [facility] Start: 03-16-2023 [facility] Start: 02-21-2023 Behavioral Health Screening Behavioral Health Screening [facility] Start: 02-21-2023 Depression Assessment Depression Ass essment [facility] Start: 02-11-2023 [facility] Start: 01-26-2023 Shingrix Vaccine (2 of 2) Shingrix Vaccine (2 of 2) [facility] Start: 12-20-2022 [facility] Start: 10-22-2022 Covid-19 Vaccine ( season) Covid-19 Vaccine ( season) [facility] Start: 10-22-2022 Influenza vaccination C [facility] Start: 10-07-2022 End: 05-09-2023 Ct abdomen w/o & w/contrast material CT KIDNEY WO/W IVCON Radiology Routine Other specified disorders of kidney and ureter Expected: 10/07/2022, Expires: 05/09/2023 [facility] Work Phone: Comment on above: Expected: 10/07/2022 , Expires: 05/09/2023 Start: 07-26-2022 [facility] Start: 07-06-2022 [facility] Start: 07-01-2022 [facility] Start: 06-23-2022 End: 06-23-2022 [facility] Start: 06-23-2022 End: 06-23-2022 [facility] Start: 06-23-2022 [facility] Start: 06-02-2022 [facility] Start: 06-02-2022 [facility] Start: 04-05-2022 End: 06-05-2022 CREATININE BLD CREATININE BLD Lab Routine Renal mass Expected: 04/05/2022, Expires: 06/05/2022 [facility] Work Phone: Comment on above: Expected: 04/05/2022 , Expires: 06/05/2022 Start: 02-21-2022 DEPRESSION ASSESSMENT DEPRESSION ASS ESSMENT [facility] Start: 10-22-2021 Influenza vaccination INFLUENZA (#1) [facility] Start: 06-25-2021 COVID-19 VACCINE (4 - Booster for Pfizer series) COVID-19 VACCINE (4 - Booster for Pfizer series) [facility] Start: 04-22-2021 COVID-19 VACCINE (4 - Booster for Pfizer series) COVID-19 VACCINE (4 - Booster for Pfizer series) [facility] Start: 04-22-2021 COVID-19 VACCINE (4 - Pfizer series) COVID-19 VACCINE (4 - Pfizer series) [facility] Start: 07-23-2017 Pneumococcal vaccination Pneum ococcal Vaccine (2 of 2 - PCV) [facility] Start: 11-06-2015 SHINGRIX VACCINE (1 of 2) SHINGRIX VACCINE (1 of 2) [facility] Start: 2010 COLOGUARD (FIT-DNA) COLOGUARD (FIT-D NA) [facility] Start: 2010 Colonoscopy COLONOSCOPY [facility] Start: 2010 COLORECTAL CANCER SCREENING COLORECTAL CANCER SCREENING [facility] Start: [address] COLONOGRAPHY [facility] Start: 2010 DIABETES SCREEN DIABETES SCREEN [facility] Start: 2010 FECAL OCCULT BLOOD FECAL OCCULT BLOO D [facility] Start: 2010 Lipid panel Lipid Screening [facility] Start: 2010 LIPID SCREEN LIPID SCREEN [facility] Start: 2010 Screening for malign ant neoplasm of colon [facility] Start: 2010 SIGMOIDOSCOPY SIGMOIDOSCOPY [facility] Start: 2005 Mammography MAMMOGRAM [facility] Start: 2005 Screening for malign ant neoplasm of breast Mammogram Screening [facility] Start: 11-06-1995 HPV TESTING HPV TESTING [facility] Start: 11-06-1995 Screening for malign ant neoplasm of cervix [facility] Start: 1986 PAP TESTING PAP TESTING [facility] Start: 1986 Screening for malign ant neoplasm of cervix [facility] Start: 1984 Hepatitis B Vaccine (1 of 3 - 19+ 3-dose series) Hepatitis B Vaccine (1 of 3 - 19+ 3-dose series) [facility] Start: 1984 Urine microalbumin profile [facility] Start: 11-06-1983 ANNUAL PCP TEAM STUCCO PLASTERER ABIOLA DISEASE VISIT ANNUAL PCP TEAM CHRONIC DISEASE VISIT [facility] Start: 11-06-1983 Anxiety Screening Anxiety Screening [facility] Start: 11-06-1983 Depression Screening Depression Scre ening [facility] Start: 11-06-1983 Hepatitis B surface antibody level LDL CHOLESTEROL [facility] Start: 11-06-1983 HEPATITIS C SCREENING HEPATITIS C [facility] Start: 11-06-1983 Hepatitis C screening Hepatitis C [facility] Start: 11-06-1983 HIV SCREENING HIV SCREENING [facility] Start: 11-06-1983 HIV screening HIV Screening [facility] Start: 1977 Adult depression screening assessment DEPRESSION SCREENING [facility] Start: 11-06-1975 Diabetic foot examination Diabetic Foot Exam [facility] Start: 11-06-1975 Glaucoma screening Dilated Retinal E xam [facility] Start: 11-06-1975 Hepatitis B screening Urine Albumin:Creatinine Ratio [facility] Start: 11-06-1971 PNEUMOCOCCAL (1 - PCV) PNEUMOCOCCAL (1 - PCV) [facility] Start: 1965 HEPATITIS B (1 of 3 - 3-dose series) HEPATITIS B (1 of 3 - 3-dose series) [facility] Start: 1965 Hepatitis B Vaccine (1 of 3 - 3-dose series) Hepatitis B Vaccine (1 of 3 - 3-dose series) [facility] Start: 1965 [facility] - [facility] or Plasma [facility] End: 07-14-2024 CT Abdomen W contrast IV CT ABDOMEN W IVCON Radiology Routine Other specified disorders of kidney and ureter 1 Occurrences starting 06/15/2023 until 07/14/2024 [facility] Work Phone: Comment on above: 1 Occurrences starti ng 06/15/2023 until 07/14/2024 End: 11-15-2023 Ct abdomen w/o & w/contrast material CT KIDNEY WO/W IVCON Radiology Routine Renal mass, right Other specified disorders of kidney and ureter 1 Occurrences starting 10/16/2022 until 11/15/2023 [facility] Work Phone: Comment on above: 1 Occurrences starti ng 10/16/2022 until 11/15/2023 Erythropoietin (EPO) [Units/volume] in Serum or Plasma [facility] Glucose measurement estimated from glycated hemoglobin [facility] Methylmalonate [Moles/volume] in Serum or Plasma [facility] URINALYSIS, REFLEX MICROSCOPIC URINALYSIS, REFLEX MICROSCOPIC Lab Routine Screening for genitourinary condition Ordered: 10/15/2022 [facility] Work Phone: Comment on above: Ordered: 10/15/2022 XR ANKLE GENERAL 3V AP/LAT/OBL LEFT XR ANKLE GENERAL 3V AP/LAT/OBL LEFT Radiology Routine Closed fracture of left ankle, initial encounter Ordered: 10/12/2021 [facility] Work Phone: Comment on above: Ordered: 10/12/2021 [facility] Immunizations Immunization Date Immunization Notes Care Provider Suki martin 12-01-2022 influenza, injectabl e, quadrivalent, preservative free Jenny Aichholz MICROFILM CLERK Work Phone: [facility] 12-01-2022 zoster vaccine recombinant Jenny Aichholz MICROFILM CLERK Work Phone: [facility] 12-01-2022 influenza virus vacc ine, unspecified formulation [facility]iology Work Phone: [facility] 12-18-2021 influenza virus vacc ine, unspecified formulation Jluis ROBLEDO [facility] 12-18-2021 Influenza, injectabl e, Madin Rafaela Canine Kidney, preservative free, quadrivalent Jenny Aichholz MICROFILM CLERK Work Phone: [facility] 02-25-2021 influenza virus vacc ine, unspecified formulation Jluis ROBLEDO [facility] 02-25-2021 influenza, injectabl e, quadrivalent, preservative free Jenny Aichholz MICROFILM CLERK Work Phone: [facility] 02-25-2021 SARS-CoV-2 (COVID-19 ) mRNA BNT-162b2 vax Jluis ROBLEDO [facility] 11-21-2020 influenza virus vacc ine, unspecified formulation Jluis ROBLEDO [facility] 11-12-2020 influenza virus vacc ine, unspecified formulation Jluis ROBLEDO [facility] 06-19-2020 SARS-CoV-2 mRNA (tozinameran 5y-11y) vaccine Jluis ROBLEDO [facility] 05-29-2020 SARS-CoV-2 mRNA (tozinameran 5y-11y) vaccine Jluis ROBLEDO [facility] 10-17-2018 influenza virus vacc ine, unspecified formulation Jluis ROBLEDO [facility] 10-17-2018 influenza, injectabl e, quadrivalent, preservative free Jenny Aichholz MICROFILM CLERK Work Phone: [facility] 11-23-2017 influenza virus vacc ine, unspecified formulation Jluiskatarzyna ROBLEDO [facility] 11-23-2017 influenza, injectabl e, quadrivalent, preservative free Jenny Aichholz MICROFILM CLERK Work Phone: [facility] 10-20-2017 influenza virus vacc ine, unspecified formulation Jluis ROBLEDO [facility] 10-20-2017 influenza, injectabl e, quadrivalent, preservative free Jenny Aichholz MICROFILM CLERK Work Phone: [facility] 11-22-2016 influenza virus vacc ine, unspecified formulation Jluiskatarzyna ROBLEDO [facility] 11-22-2016 influenza, injectabl e, quadrivalent, preservative free Jenny Aichholz MICROFILM CLERK Work Phone: [facility] 11-06-2016 influenza virus vacc ine, unspecified formulation Jluiskatarzyna ROBLEDO [facility] 11-06-2016 influenza, injectabl e, quadrivalent, preservative free Jenny Aichholz MICROFILM CLERK Work Phone: [facility] 07-23-2016 pneumococcal polysaccharide vaccine, 23 valent Jluis ROBLEDO [facility] Payers Date Payer Category Payer Medicaid [id number] 2022 Private Health Insurance [id number] 2019 Medicare MEDICARE MEDICAR E A AND B [id number] 2019-Present [phone] [address] [address] [place] [address] Medicare [id number] 2019 Medicare [id number] 2019 Private Health Insurance [facility] PL[facility] [id number] 2019-Present [phone] [address] [place] [address] HMO [id number] 2019 Private Health Insurance [facility] PL[facility] [id number] 2019-Present [phone] [address] [place] [address] HMO [id number] 2019 Unknown [id number] 1965 Unknown [id number] 2.16.840.1.937332.3.579.2. 727 1965 Unknown [id number] 2.16.840.1.727120.3.579.2. 727 1965 Unknown [id number] 2.16.840.1.089922.3.579.2. 727 1965 Unknown [id number] 2.16.840.1.228555.3.579.2. 593 1965 Unknown [id number] 2.16.840.1.330370.3.579.2. 593 1965 Unknown [id number] 2.16.840.1.882336.3.579.2. 593 1965 Unknown [id number] 2.16.840.1.967035.3.579.2. 593 1965 Unknown [id number] 2.16.840.1.178167.3.579.2. 1259 1965 Unknown [id number] 2.16.840.1.201120.3.579.2. 1259 1965 Unknown [id number] 2.16.840.1.071474.3.579.2. 1259 1965 Unknown [id number] 2.16.840.1.668896.3.579.2. 1259 1965 Unknown [id number] 2.16.840.1.573477.3.579.2. 1259 1965 Unknown [id number] 2.16.840.1.143345.3.579.2. 1258 1965 Unknown [id number] 2.16.840.1.922385.3.579.2. 9 1965 Unknown [id number] 2.16.840.1.734162.3.579.2. 1259 1959 Medicaid [id number] 1959 Medicare [id number] 1959 Private Health Insurance [id number] 1959 Self-pay [id number] Medicare [id number] Unknown [place] BC/BS [id number] Unknown [id number]. 531 Social History Date Type Detail Facility Start: 07-27-2021 End: 03-05-2022 Tobacco smoking status Heavy tobacco smoker (finding) [facility] Start: 03-08-2022 End: 10-15-2022 Sex Assigned At Female [facility] Tobacco smoking stat us NHIS Tobacco smoking consumption unknown [facility] Start: 1965 Sex Assigned At Not on file [facility] Start: 09-02-2021 End: 10-12-2021 Exposure to SARS-CoV-2 (event) Not sure [facility] Start: 10-12-2021 End: 01-10-2023 Tobacco smoking status LAIS Smokes tobacco daily [facility] History of tobacco use Cigarette Smoker [facility] Start: 10-12-2021 End: 01-10-2023 Tobacco use and exposure Smokeless tobacco non-user [facility] Start: 10-12-2021 End: 11-09-2021 Alcohol intake Ex-drinker (finding) [facility] Start: 06-02-2022 End: 07-30-2022 Tobacco smoking status NHIS Smoker (finding) [facility] Start: 1965 Sex Assigned At Female [facility] Start: 03-08-2022 End: 10-15-2022 History of Social function [facility] National Score (1-10 0), lower number is lower risk 63 [facility] Within the last year , [...] Text Equipment Identifier Dates USE TWICE DAILY [id number] Start: 02-12-2023 Goals Date Patient Goal Desired Activity /State Functional Status Date Assessment Result Facility 03-05-2022 Functional Status N/A [facility] Clinical Notes 07-27-2021 to 10-19-2023 Lex Pickens MD - 06/15/2023 11:00 AM Brigette Weeks RT(R) - 05/17/2023 1:00 PM Joi Patel RN - 05/17/2023 1:00 PM Otf Borrego NP - 03/24/2023 7:10 PM EST Note Date & Type Note Facility 10-19-2023 Note Patient: Elmer guy Procedure Information Date/Time: 10/19/23 1100 Procedure: Lower extremity angiogram - PC APPROVED Location: [facility] SOCIAL MEDIA EXECUTIVE 2 [facility] / [facility] (Cath) Providers: Malik Benavides MD Clinical information reviewed: Allergies Meds OB Status Physical Exam Airway Mallampati: III TM distance: >3 FB Neck ROM: full Cardiovascular Rhythm: regular Rate: normal Dental Pulmonary Breath sounds clear to auscultation Abdominal Abdomen: soft Bowel sounds: normal Other findings: DP and PT pulses doppler only Anesthesia Plan ASA 3 other (Conscious ) Anesthetic plan and risks discussed with patient. Use of blood products discussed with patient who consented to blood products. Plan discussed with attending. Additional Equipment Requests [facility] 09-21-2023 Note [place] [facility] - [facility] Subjective Elmer Ellis is a 57 y.o. year old female patient being seen for follow up stress test, echo, and ALEXANDRIA's. Denies chest pain and SOB, but c/o a lot of lightheadedness/dizziness lately. Denies syncope. Continues to have claudication. Patient Active Problem List Diagnosis Coronary atherosclerosis Dyspnea on exertion Factor V Leiden (CMS/HCC) Hypertriglyceridemia History of deep vein thrombosis Intermittent claudication (CMS/HCC) Tobacco dependence syndrome Smoker Renal mass Other specified disorders of kidney and ureter Morbid obesity (CMS/HCC) Intermittent palpitations Abnormal PFT Abnormal stress test Anemia Anxiety and depression Arthritis Arthritis of left acromioclavicular joint Bilateral lower extremity edema Cancer of kidney (CMS/HCC) Chondromalacia of left patella Chronic back pain Chronic bronchitis (CMS/HCC) Chronic cough 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) Diabetic neuropathy, painful ([facility]/HCC) Encounter for annual wellness visit (AWV) in Medicare patient Environmental and seasonal allergies Family history of lung cancer Gallstone Gastroesophageal reflux disease without esophagitis History of varicose veins Incomplete bladder emptying Internal derangement of left knee Internal derangement of right knee Intestinal malabsorption, unspecified Iron deficiency anemia Lumbosacral plexus lesion Mucopurulent chronic bronchitis (CMS/HCC) Neuropathy ELENA (obstructive sleep apnea) Osteoporosis Other acute sinusitis Yeast infection of the vagina Elevated alkaline phosphatase level Family History Problem Relation Name Age of [...] V [place]. At her prior visit with MICROFILM CLERK Niyah Pop on 04/27/2019 she was complaining [...] She is taking furosemide 40 mg daily. At most recent visit of 08/18/2023 and to investigate her symptoms of claudication I checked an ALEX[place]RIA. I also investigated shortness of breath with an echo and a stress test. Her echocardiogram and stress test were within normal limits. The ABIs were reduced on the right. Today she reports that she continues to have symptoms of lifestyle limiting claudication both legs but mostly in the right leg. She denies chest pain. She has no significant shortness of breath with exertion. No palpitations and no dizziness or lightheadedness. Review of Systems Cardiovascular: Positive for claudication and leg swelling. Respiratory: Positive for cough. Neurological: Positive for dizziness and light-headedness. All other systems reviewed and are negative. Objective Visit Vitals BP 120/66 (BP Location: Right arm, Patient Position: Sitting) Pulse 76 Ht 1.626 m (5' 4 ) Wt 126 kg (277 lb) SpO2 92% BMI 47.55 kg/m??? Smoking Status Every Day BSA (more content not included)... [facility] 08-18-2023 Note [place] [facility] Subjective Elmer Ellis is a 57 y.o. year old female patient being seen for 1 year follow up CAD, PAD, hx of DVT, and hyperlipidemia. Denies chest pain and palpitations. C/o LE edema. Gets lightheaded with coughing spells, and continues to smoke 1 PPD. Says her JORDAN is unchanged. Patient Active Problem List Diagnosis Coronary atherosclerosis Dyspnea on exertion Factor V Leiden ([facility]/HCC) Hypertriglyceridemia History of deep vein thrombosis Intermittent claudication (CMS/HCC) Tobacco dependence syndrome Smoker Renal mass Other specified disorders of kidney and ureter Morbid obesity (CMS/HCC) Intermittent palpitations Abnormal PFT Abnormal stress test Anemia Anxiety and depression Arthritis Arthritis of left acromioclavicular joint Bilateral lower extremity edema Cancer of kidney (CMS/HCC) Chondromalacia of left patella Chronic back pain Chronic bronchitis (CMS/HCC) Chronic cough 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) Diabetic neuropathy, painful ([facility]/HCC) Encounter for annual wellness visit (AWV) in Medicare patient Environmental and seasonal allergies Family history of lung cancer Gallstone Gastroesophageal reflux disease without esophagitis History of varicose veins Incomplete bladder emptying Internal derangement of left knee Internal derangement of right knee Intestinal malabsorption, unspecified Iron deficiency anemia Lumbosacral plexus lesion Mucopurulent chronic bronchitis (CMS/HCC) Neuropathy ELENA (obstructive sleep apnea) Osteoporosis Other [...] are equal, r (more content not included)... [facility] 06-15-2023 Note HNO ID: [id number] Author: LEX PICKENS MD Service: ? Author Type: Physician Type: Progress Notes Filed: 06/15/2023 12:22 Note Text: VIRTUAL VISIT PROGRESS NOTE This is a virtual visit using [employer] Video Visit. It required patient-provider interaction for the medical decision making as documented below. I have communicated my name and active licensure. The patient's identity and physical location were verified at the time of this visit. Either the patient or their legal bank representative has been informed of the risks [...] mg by mouth twice daily. MV with Nzr-Isgeeeng-Tzinxp (CENTRUM SILVER) 0.4 mg-300 mcg- 250 mcg tab Take by mouth. (Patient not taking: Reported on 03/16/2022) insulin 75/25 lispro protamine/lispro units/mL (HUMALOG MIX 75-25,U-100,INSULN) 100 units/mL susp as directed. HYDROcodone-acetaminophen (NORCO) 5-325 mg per tablet hydrocodone 5 mg-acetaminophen 325 mg tablet TAKE 1 TO 2 TABLETS BY MOUTH EVERY DAY AT BEDTIME NEEDED eurwyyvw-blg-amcj-FA-lutein (CENTRUM SILVER WOMEN) 8 mg iron-400 mcg-300 [...] release 24 hr (more content not included)... [facility] 06-15-2023 History of Present illness Narrative VIRTUAL VISIT PROGRESS NOTE This is a virtual visit using [employer] Video Visit. It required patient-provider interaction for the medical decision making as documented below. I have communicated my name and active licensure. The patient's identity and physical location were verified at the time of this visit. Either the patient or their legal bank representative has been informed of the risks [...] mg by mouth twice daily. MV with Iyv-Qrzrdrnt-Emjteg (CENTRUM SILVER) 0.4 mg-300 mcg- 250 mcg tab Take by mouth. (Patient not taking: Reported on 03/16/2022) insulin 75/25 lispro protamine/lispro units/mL (HUMALOG MIX 75-25,U-100,INSULN) 100 units/mL susp as directed. HYDROcodone-acetaminophen (NORCO) 5-325 mg per tablet hydrocodone 5 mg-acetaminophen 325 mg tablet TAKE 1 TO 2 TABLETS BY MOUTH EVERY DAY AT BEDTIME NEEDED tplydwsb-yox-cjlq-FA-lutein (CENTRUM SILVER WOMEN) 8 mg iron-400 mcg-300 [...] which included preparing to see the patient, xxyv-hx-gfse patient care, and counseling and educating the patient/family/caregiver Lex Pcikens MD documented in this encounter [facility] 05-17-2023 Note HNO ID: [id number] Author: BRIGETTE FORMAN RT(R) Service: Radiology Author Type: Technologist Type: [...] PATIENT PRESENTS WITH AN IMPLANTABLE OR ATTACHED CHEMICAL MACHINE TENDER: No RADIOLOGY DEPARTMENT: CT; Exam(s) Completed: Kidney PERIPHERAL IV DATA: Site assessment: Clean,Dry and Intact, Site disposition Discontinued 20g right forearm SIGNED BY: RT José Miguel(R) May 17, 2023 2:00 PM [facility] 05-17-2023 Note HNO ID: [id number] Author: JOI GREENE RN Service: ? Author [...] DATE: May 17, 2023 TIME: 2:02 PM [facility] 05-17-2023 History of Present illness Narrative Radiology Service Progress Note PATIENT NAME: Elmer [...] PATIENT PRESENTS WITH AN IMPLANTABLE OR ATTACHED CHEMICAL MACHINE TENDER: No RADIOLOGY DEPARTMENT: CT; Exam(s) Completed: Kidney PERIPHERAL IV DATA: Site assessment: Clean,Dry and Intact, Site disposition Discontinued 20g right forearm SIGNED BY: RT José Miguel(R) May 17, 2023 2:00 PM Radiology Service Progress Note DATE OF SERVICE: [...] Ref Range Status 05/17/2023 53 (L) >=60 mL/min/1.73m Final Comment: Estimated Glomerular Filtration Rate (eGFR) [...] DATE: May 17, 2023 TIME: 2:02 PM documented in this encounter [facility] 04-28-2023 Miscellaneous Notes Please sign pended Cre for upcoming CT. Pt needs updated lab before CT can be done Thank You! Josie Leong, RN documented in this encounter [facility] 03-24-2023 History of Present illness Narrative Associated Problem(s): Encounter for annual wellness visit (AWV) in Medicare patient Reviewed Ht/Wt/BMI Recommend eye exam yearly Recommend dental exams twice a year Balance work/leisure activities Exercises is recommended most days of the week (appropriate as chronic conditions allow) Follow up yearly and prn Associated Problem(s): Type 2 diabetes mellitus with insulin therapy ([facility]) Check blood sugars daily, notify if [...] in March Associated Problem(s): Cancer of kidney ([facility]) Continue with specialty for monitoring Associated Problem(s): CAD in [place] artery ([facility]) No acute angina symptoms Cont current [...] being taken. She does not see a pallet assembler.Eye exam is current. 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) Diabetic neuropathy, painful (CMS/HCC) Factor V Leiden (CMS/HCC) Factor 5 Leiden deficiency Family history of cancer High cholesterol (CMS/HCC) History of DVT (deep vein thrombosis) history of DVT no PE History of kidney cancer History of pancreatitis History of pneumonia History of varicose veins Intermittent claudication (CMS/HCC) Kidney problem spot on kidney Mucopurulent chronic bronchitis (CMS/HCC) Neuropathy ELENA (obstructive sleep apnea) Osteoporosis (CMS/HCC) Pneumonia Sinusitis Tobacco user Type 2 diabetes mellitus with insulin therapy (CMS/HCC) 03/24/2023 Past Surgical History: Procedure Laterality Date [...] List Items Addressed This Visit CAD in [place] artery ([facility]) No acute angina symptoms Cont current meds Goal: control BP, diabetes, lipids, and QUIT smoking Tobacco user Recommend quitting, pt declines Cancer of kidney ([facility]) Continue with specialty for monitoring Type 2 diabetes mellitus with diabetic neuropathy, with long-term current use of insulin ([facility]) Relevant Orders Hemoglobin A1c Type 2 diabetes mellitus with insulin therapy ([facility]) Check blood sugars daily, notify if [...] Blood Gluc Sensor (FreeStyle Joelle 2 Sensor) [facility] [place] USE TO TEST BLOOD SUGAR 4 TIMES [...] Yes Vision Screening: Yes, 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 Hearing Screening: Not done Cognitive Screening Self Assessment: No overt cognitive deficiency is apparent by direct observation Three Word Registration: Banana, [place], Chair Clock Drawing: Normal Clock - 2 Three Word Recall: All 3 words correct - 3 Pain Assessment Pain Score: 0 - No pain Advance Care Planning Do you have a living will?: No Do you have a medical power of senior attorney?: No Objective : BP 112/70 (BP [...] March 24, 2023 documented in this encounter [facility] 10-15-2022 Note Patient Outreach (UR OLMN) ELMER ELLIS ([id number]) 1965 F Date Time Provider Department 10/15/22 LEX PICKENS During your visit today, we recorded the following information about you: Allergies As of Date: 10/15/2022 (No Known Allergies) Date Reviewed: 10/15/2022 Reviewed by: Angie Mcclellan APRN.PR SPECIALIST - Fully Assessed Visit Diagnosis:Screening for genitourinary condition [Z13.89] Order(s):URINALYSIS, REFLEX MICROSCOPIC [[id number]] Order #: [id number] Prescriptions as of 10/18/2022 - DULoxetine (CYMBALTA) [...] by mouth twice daily. - MV with Qgz-Fnusifci-Hcnvze (CENTRUM SILVER) 0.4 mg-300 mcg- 250 mcg tab Take by mouth. - insulin 75/25 lispro protamine/lispro units/mL (HUMALOG MIX 75-25,U-100,INSULN) 100 units/mL susp as directed. - HYDROcodone-acetaminophen (NORCO) 5-325 mg per tablet hydrocodone 5 mg-acetaminophen 325 mg tablet TAKE 1 TO 2 TABLETS BY MOUTH EVERY DAY AT BEDTIME NEEDED - syojnafg-oyn-mbbn-FA-lutein (CENTRUM SILVER WOMEN) 8 mg iron-400 mcg-300 [...] (HCC) [D68.51] 04/19/2022 Coronary artery disease involving [place] tribe heart *04/19/2022 Smoker [F17.200] 04/19/2022 Morbid obesity (HCC) [E66.01] 04/19/2022 Other specified disorders of kidney and ureter *04/19/2022 Encounter Status:Closed by [employer] on 10/18/22 [facility] 10-15-2022 Note HNO ID: [id number] Author: Angie Mcclellan APRN.PR SPECIALIST Service: ? Author Type: Nurse Practitioner Type: Progress Notes Filed: 10/16/2022 9:14 AM Note Text: VIRTUAL VISIT PROGRESS NOTE This is a virtual visit using [employer] video visit. It required patient-provider interaction for the medical decision making as documented below. I have communicated my name and active licensure. The patient's identity and physical location were verified at the time of this visit. Either the patient or their legal bank representative has been informed of the risks [...] mg by mouth twice daily. MV with Xad-Ehmkorjb-Rjcrjm (CENTRUM SILVER) 0.4 mg-300 mcg- 250 mcg tab Take by mouth. (Patient not taking: Reported on 03/16/2022) insulin 75/25 lispro protamine/lispro units/mL (HUMALOG MIX 75-25,U-100,INSULN) 100 units/mL susp as directed. HYDROcodone-acetaminophen (NORCO) 5-325 mg per tablet hydrocodone 5 mg-acetaminophen 325 mg tablet TAKE 1 TO 2 TABLETS BY MOUTH EVERY DAY AT BEDTIME NEEDED wpeuofby-rkp-zzys-FA-lutein (CENTRUM SILVER WOMEN) 8 mg iron-400 mcg-300 mcg tab furosemide (LASIX) 40 mg tablet furosemide 40 mg tablet TAKE 1 AND 1/2 TABLETS BY MOUTH DAILY clopidogrel (PLAVIX) 75 mg tablet clopidogrel 75 mg tablet TAKE 1 TABLET BY MOUTH EVERY DAY metoprolol succinate ER (TOPROL XL) 25 mg 24 hr tablet met (more content not included)... [facility] 10-15-2022 History of Present illness Narrative VIRTUAL VISIT PROGRESS NOTE This is a virtual visit using [employer] video visit. It required patient-provider interaction for the medical decision making as documented below. I have communicated my name and active licensure. The patient's identity and physical location were verified at the time of this visit. Either the patient or their legal bank representative has been informed of the risks [...] mg by mouth twice daily. MV with Sig-Fmghsjdv-Vfojac (CENTRUM SILVER) 0.4 mg-300 mcg- 250 mcg tab Take by mouth. (Patient not taking: Reported on 03/16/2022) insulin 75/25 lispro protamine/lispro units/mL (HUMALOG MIX 75-25,U-100,INSULN) 100 units/mL susp as directed. HYDROcodone-acetaminophen (NORCO) 5-325 mg per tablet hydrocodone 5 mg-acetaminophen 325 mg tablet TAKE 1 TO 2 TABLETS BY MOUTH EVERY DAY AT BEDTIME NEEDED atnguxbl-qxy-ximz-FA-lutein (CENTRUM SILVER WOMEN) 8 mg iron-400 mcg-300 [...] which included preparing to see the patient, vigf-va-nmab patient care, completing clinical documentation, counseling and educating the patient/family/caregiver, and ordering medications, tests, or procedures Angie Mcclellan APRN.CARLO documented in this encounter [facility] 10-07-2022 Note HNO ID: [id number] Author: Christel Hua RT([place]) Service: ? Author [...] RT Luan(R) October 07, 2022 10:33 AM [facility] 10-07-2022 History of Present illness Narrative Radiology Service Progress Note PATIENT NAME: Elmer [...] IV DATA: Not applicable SIGNED BY: RT Luan([place]) October 07, 2022 10:33 AM documented in this encounter [facility] 04-09-2022 History of Present illness [...] 80 mg by mouth once daily. fexofenadine (ULZ) 180 mg tablet fexofenadine 180 mg tablet TAKE 1 TABLET BY MOUTH EVERY DAY gabapentin (NEURONTIN) 300 mg capsule Take 600 mg by mouth twice daily. MV with Jgf-Tcnyqbzv-Fvdmwv (CENTRUM SILVER) 0.4 mg-300 mcg- 250 mcg tab Take by mouth. (Patient not taking: Reported on 03/16/2022) insulin 75/25 lispro protamine/lispro units/mL (HUMALOG MIX 75-25,U-100,INSULN) 100 units/mL susp as directed. HYDROcodone-acetaminophen (NORCO) 5-325 mg per tablet hydrocodone 5 mg-acetaminophen 325 mg tablet TAKE 1 TO 2 TABLETS BY MOUTH EVERY DAY AT BEDTIME NEEDED lxyhrzja-rjz-nyjr-FA-lutein (CENTRUM SILVER WOMEN) 8 mg iron-400 mcg-300 [...] prescribing physician. I25.10 Coronary artery disease involving [place] heart without angina pectoris, unspecified vessel [...] Scribe Attestation: By signing my name below, IJody, [...] Lex Pickens MD documented in this encounter [facility] 04-05-2022 History of Present illness Narrative Radiology Service Progress Note PATIENT NAME: Elmer Ellis DATE OF SERVICE: April 05, 2022 TIME: 2:35 PM PATIENT IDENTITY VERIFICATION COMPLETED USING TWO [...] Applicable RADIOLOGY DEPARTMENT: General X-ray: Exam(s) Completed: Chest X-Ray PERIPHERAL IV DATA: Not applicable SIGNED BY: RT Luan(R) April 05, 2022 2:35 PM documented in this encounter [facility] 04-05-2022 History of Present illness Narrative Radiology Service Progress Note DATE OF SERVICE: April 05, 2022 TIME: 1:40 PM PATIENT WEIGHT: 260 LBS PATIENT IDENTITY VERIFICATION COMPLETED USING TWO (2) [...] EXAM: CT -CONTRAST INDUCED NEPHROPATHY RISK FACTORS: Diabetic: Yes. Current medication(s): Metformin. Patient currently has insulin pump?: No. and Known Chronic Kidney Disease (CKD) CREATININE: Creatinine Date Value Ref Range Status 04/05/2022 0.91 0.58 - 0.96 mg/dL Final Estimated Glomerular Filtration Rate Date Value Ref Range Status 04/05/2022 74 >=60 mL/min/1.73m Final Comment: Estimated Glomerular Filtration Rate (eGFR) [...] RESULTS: POC done: Yes, See Lab Tab April 05, 2022 TREATMENT: No Hydration needed. IV SITE: Ambulatory: A peripheral IV was started in the Right antecubital site with a Angio cath: 20 gauge. IV SITE APPEARANCE: Clean,Dry and Intact SIGNATURE: Marbella Trevino RN PATIENT NAME: Elmer Ellis DATE: April 05, 2022 TIME: 1:40 PM Radiology Service Progress Note PATIENT NAME: Elmer Ellis DATE OF SERVICE: April 05, 2022 TIME: 2:32 PM PATIENT IDENTITY VERIFICATION COMPLETED USING TWO [...] assessment: Clean,Dry and Intact, Site disposition Discontinued SIGNED BY: RT Luan(R) April 05, 2022 2:32 PM documented in this encounter [facility] 03-19-2022 Miscellaneous Notes Please sign pending Cre order for upcoming CT with contrast on 04/05/22. Thank you. Joi Austin RN documented in this encounter [facility] 03-16-2022 History of Present illness Narrative Referring Provider: Self Chief Complaint: right renal mass. HPI Elmer Ellis is a 56 year old [...] prescribing physician. I25.10 Coronary artery disease involving [place] heart without angina pectoris, unspecified vessel or lesion type Comment: Will need cardiology clearance. F17.200 Smoker Comment: Smoking cessation counseling done today. Discussed link between smoking and RCC. E66.01 Morbid obesity (HCC) Comment: Weight loss counseling done today. Discussed link between obesity and RCC. Scribe Attestation: By signing my name below, I, Jody Alcala, attest that this documentation has been prepared under the direction and in the presence of Dr. Lex Pickens MD. Electronically signed: Saad Abad, March 16, 2022 3:05 PM I, Lex Pickens MD, personally performed the services described in this documentation. All medical record entries made by the scribe were at my direction and in my presence. I have reviewed the chart and discharge instructions (if applicable) and agree that the record reflects my personal performance and is accurate and complete. Lex Pickens MD documented in this encounter [facility] 03-05-2022 Hospital Discharge instructions Patient [...] provider gives to you. In general: Take elsn-ohw-ghmzwvt and prescription medicines only as told by [...] 09/04/2014 Document Revised: 03/16/2018 Document Reviewed: 03/16/2018 [employer] Patient Education 2020 [employer]. Follow Up Care 07/27/2021 10:19:10 With:VENKAT SAWYER, Jluis Jacinto, URL Address: [address] [place] [id number]- When: Unknown [facility] 11-09-2021 Note HNO ID: [id number] Author: Lilly Tony MD Service: ? Author [...] mg by mouth twice daily. MV with Hre-Bnietcll-Fshnkn (CENTRUM SILVER) 0.4 mg-300 mcg- 250 mcg tab Take by mouth. insulin 75/25 lispro protamine/lispro units/mL (HUMALOG MIX 75-25,U-100,INSULN) 100 units/mL susp as directed. HYDROcodone-acetaminophen (NORCO) 5-325 mg per tablet hydrocodone 5 mg-acetaminophen 325 mg tablet TAKE 1 TO 2 TABLETS BY MOUTH EVERY DAY AT BEDTIME NEEDED snabdcro-hcn-ittj-FA-lutein (CENTRUM SILVER WOMEN) 8 mg iron-400 mcg-300 [...] activity without re (more content not included)... [facility] 10-19-2021 Note HNO ID: [id number] Author: Lilly Tony MD Service: ? Author [...] mg by mouth twice daily. MV with Pdr-Swwfpwvs-Rjpsbx (CENTRUM SILVER) 0.4 mg-300 mcg- 250 mcg tab Take by mouth. insulin 75/25 lispro protamine/lispro units/mL (HUMALOG MIX 75-25,U-100,INSULN) 100 units/mL susp as directed. HYDROcodone-acetaminophen (NORCO) 5-325 mg per tablet hydrocodone 5 mg-acetaminophen 325 mg tablet TAKE 1 TO 2 TABLETS BY MOUTH EVERY DAY AT BEDTIME NEEDED zrbazmuo-tpx-xqmt-FA-lutein (CENTRUM SILVER WOMEN) 8 mg iron-400 mcg-300 [...] lower extremity. S (more content not included)... [facility] 10-18-2021 History of Present illness Narrative [...] mg by mouth twice daily. MV with Qpd-Cflkhlew-Igkoif (CENTRUM SILVER) 0.4 mg-300 mcg- 250 mcg tab Take by mouth. insulin 75/25 lispro protamine/lispro units/mL (HUMALOG MIX 75-25,U-100,INSULN) 100 units/mL susp as directed. HYDROcodone-acetaminophen (NORCO) 5-325 mg per tablet hydrocodone 5 mg-acetaminophen 325 mg tablet TAKE 1 TO 2 TABLETS BY MOUTH EVERY DAY AT BEDTIME NEEDED icklwzhz-ohs-nklr-FA-lutein (CENTRUM SILVER WOMEN) 8 mg iron-400 mcg-300 [...] Lilly Tony MD documented in this encounter [facility] 10-13-2021 Miscellaneous Notes Received voicemail [...] bear any weight. Patient has taken 1 Junction about an hour ago and said it is not helping the pain at all. Advised I would send message to and call patient once direction is received. Patient understood and had no further questions. Filomena Madrigal October 13, 2021 11:23 AM documented in this encounter [facility] 09-22-2021 Note HNO ID: [id number] Author: Lilly Tony MD Service: ? Author [...] with nonweightbearing status. She will occasionally take Junction for pain relief which is effective. She is also supplemented with wedg-fnw-mcmdhwr pain medications. Her medical history significant for Beatties, coronary artery disease, diabetes and associated lower extremity neuropathy, DVT requiring Plavix and Xarelto for anticoagulation. 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 She also has kidney cancer that is [...] by mouth twice daily. - MV with Vsd-Qsdpllnx-Aogkor (CENTRUM SILVER) 0.4 mg-300 mcg- 250 mcg tab Take by mouth. - insulin 75/25 lispro protamine/lispro units/mL (HUMALOG MIX 75-25,U-100,INSULN) 100 units/mL susp as directed. - HYDROcodone-acetaminophen (NORCO) 5-325 mg per tablet hydrocodone 5 mg-acetaminophen 325 mg tablet TAKE 1 TO 2 TABLETS BY MOUTH EVERY DAY AT BEDTIME NEEDED - rawytrzv-arv-pvws-FA-lutein (CENTRUM SILVER WOMEN) 8 mg iron-400 mcg-300 [...] lymphadenopathy Peripheral Pulses (more content not included)... [facility] 09-16-2021 Miscellaneous Notes Called and spoke to patient regarding L ankle fracture OS 09/12/21. Patient was seen at [facility] ED after falling she fell in [...] which facility was the patient seen at: [facility] / 09.12.2021 Was an appointment scheduled (Y/N): n Person calling if other than patient: n Return call to if other than patient: n Best contact number: [phone] Thank you, Peggy Saxena September 15, 2021 4:27 PM documented in this encounter [facility] 07-27-2021 Hospital Discharge instructions Patient [...] provider gives to you. In general: Take tguk-iyu-sigcqhu and prescription medicines only as told by [...] 09/04/2014 Document Revised: 03/16/2018 Document Reviewed: 03/16/2018 [employer] Patient Education 2020 [employer]. 07/27/2021 10:06:53 Calorie Counting for Weight Loss [...] 02/07/2006 Document Revised: 10/27/2018 Document Reviewed: 01/07/2017 [employer] Patient Education 2020 [employer] Follow Up Care 06/24/2021 14:48:04 With:VENKAT SAWYER, Jluis Jacinto, URL Address: [facility] [address] , [place] [phone] When:01/26/2022 Comments:[address] scan [facility] Evaluation + Plan note Future Appointments Appointment Date:02/01/2022 11:15:00 AM Scheduled Provider:Jluis ROBLEDO MD Location:[facility] Appointment Type:URO Office Visit Diagnostic Tests PendingBUN 07/27/21Creatinine 07/27/21 [facility] Evaluation + Plan note [facility] Evaluation note Diagnosis Closed fracture of left ankle, initial encounter- [facility] Renal [facility]- Primary Unspecified disorder of kidney and ureter [facility] Renal mass, right- Primary Unspecified disorder of kidney and ureter Factor V Leiden (HCC) Primary hypercoagulable state Coronary artery disease involving [place] tribe heart without angina pectoris, unspecified vessel or lesion type Smoker Tobacco use disorder Morbid obesity (HCC) Morbid obesity 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 mass Unspecified disorder of kidney and ureter [facility] Other specified disorders of kidney and ureter- Primary [facility] Work Phone: Evaluation note* Diagnosis Renal mass, right- Primary Unspecified disorder of kidney and ureter Family history of renal cancer Family history of malignant neoplasm of kidney Morbid obesity (HCC) Morbid obesity Current every day smoker Tobacco use disorder Other specified disorders of kidney and ureter [facility] Screening for genitourinary condition Screening for other and unspecified genitourinary condition [facility] Diagnosis Encounter for annual wellness visit (AWV) in Medicare patient- Primary Type 2 diabetes mellitus with diabetic neuropathy, with long-term current use of insulin (CMS/HCC) CAD in [place] artery (CMS/HCC) Tobacco user Tobacco use disorder Malignant neoplasm of kidney, unspecified laterality (CMS/HCC) Type 2 diabetes mellitus with insulin therapy (CMS/HCC) Routine general medical examination at health care facility Routine general medical examination at a health care facility documented in this encounter [facility]* Diagnosis CAD in [place] artery (CMS/HCC)- Primary documented in this encounter [facility]* Diagnosis Acute non-recurrent sinusitis of other sinus- Primary documented in this encounter [facility]* Diagnosis Onset Date Resolution Status Iron deficiency anemia acute [facility] Work Phone: Evaluation note* Diagnosis Renal mass- Primary Unspecified disorder of kidney and ureter [facility] Diagnosis Other specified disorders of kidney and ureter- Primary Renal mass Unspecified disorder of kidney and ureter Morbid obesity (HCC) Morbid obesity Type 2 diabetes mellitus with diabetic neuropathy, with long-term current use of insulin (HCC) [facility] Diagnosis Renal mass, right Unspecified disorder of kidney and ureter 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 mass Unspecified disorder of kidney and ureter [facility] Diagnosis 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 mass Unspecified disorder of kidney and ureter [facility] Diagnosis 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 mass Unspecified disorder of kidney and ureter documented in this encounter [facility] note* Diagnosis Renal mass, right Unspecified disorder of kidney and ureter [facility] Narrative No data available for this section [facility] progress note No data available for this section [facility] reason for referral (narrative)* Diagnostic Procedure Only (Routine) - Pending Review Specialty Diagnoses / Procedures Referred By April valdez Referred To Contact XR IMAGING Diagnoses Closed fracture of left ankle, initial encounter Procedures XR ANKLE GENERAL 3V AP/LAT/OBL LEFT RADEX ANKLE COMPLETE MINIMUM 3 VIEWS Lilly Tony MD [address] [address] Xr Imaging Referral ID Status Reason Start Date Expiration Date Visits Requested Visits Authorized [id number] Pending Review Auto-Generat ed Referral 10/12/2021 11/11/2022 1 1 [facility] for referral (narrative) Referred by: Jluis ROBLEDO MD [facility] Michael Summary Purpose Family History Relationship Condition Age at Onset Recorded Date/T moi Not Specified Myocardial infarction Unknown Diabetes mellitus Unknown Hypertension Unknown sister Malignant neoplasm of lung Unknown father Diabetes mellitus Unknown Transient ischemic attack Unknown Advance Directives Documents on File Type Date Recorded 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 Advance Directive(s) 09/12/2021 2:13 PM Advance Directive Response Recorded Date/ Time Advance Directives No October 3:55pm Advance Directive Response Recorded Date/ Time Advance Directives No October 2:55pm Reason for Referral Specialty Diagnoses / Procedures Referred By April t Referred To Contact CT IMAGING Diagnoses Renal mass, right Other specified disorders of kidney and ureter Procedures CT KIDNEY WO/W IVCON CT ABDOMEN W & W/O CONTRAST Lex Pickens MD [address] [place] [address] Ct Imaging [place] [address] Referral ID Status Reason Start Date Expiration Date Visits Requested Visits Authorized [id number] Pending Review Auto-Generat ed Referral 10/16/2022 11/15/2023 1 1 Specialty Diagnoses / Procedures Referred By April valdez Referred To Contact CT IMAGING Diagnoses Other specified disorders of kidney and ureter Procedures CT KIDNEY WO/W IVCON CT ABDOMEN W & W/O CONTRAST Judson Quiroga MD [address] [place] [address] Ct Imaging Referral ID Status Reason Start Date Expiration Date V isits Requested Visits Authorized [id number] Closed Auto-Generate d Referral 03/16/2022 04/15/2023 1 1 Chief Complaint and Reason for Visit Chief Complaint Anemia, Lower Hemogl obin Chief Complaint Anemia E11.40 Z79.4 Reason for Visit Iron deficiency anem ia Additional Source Comments INFORMATION SOURCE (unrecogn ized section and content) DATE CREATED AUTHOR 12/25/2020 [facility] DATE CREATED AUTHOR AUTHOR'S ORGANIZ ATION 07/25/2021 [facility] DATE CREATED AUTHOR AUTHOR'S ORGANIZ ATION 11/22/2021 [facility] DATE CREATED AUTHOR AUTHOR'S ORGANIZ ATION 03/05/2022 [facility] DATE CREATED AUTHOR AUTHOR'S ORGANIZ ATION 06/25/2022 [facility] DATE CREATED AUTHOR AUTHOR'S ORGANIZ ATION 06/16/2023 [facility] DATE CREATED AUTHOR AUTHOR'S ORGANIZ ATION 07/14/2023 [facility] DATE CREATED AUTHOR AUTHOR'S ORGANIZ ATION 08/08/2023 [facility] DATE CREATED AUTHOR AUTHOR'S ORGANIZ ATION 10/21/2023 [facility] Source Comments (unrecognize d section and content) In the event this informatio n is protected by the Federal Confidentiality of Alcohol and Drug Abuse Patient Records regulations: The Federal rules restrict any use of the information to criminally investigate or prosecute any alcohol or drug abuse patient.[facility] the event this information is protected by the Federal Confidentiality of Alcohol and Drug Abuse Patient Records regulations: The Federal rules restrict any use of the information to criminally investigate or prosecute any alcohol or drug abuse patient.[facility] the event this information is protected by the Federal Confidentiality of Alcohol and Drug Abuse Patient Records regulations: The Federal rules restrict any use of the information to criminally investigate or prosecute any alcohol or drug abuse patient.[facility] the event this information is protected by the Federal Confidentiality of Alcohol and Drug Abuse Patient Records regulations: The Federal rules restrict any use of the information to criminally investigate or prosecute any alcohol or drug abuse patient.[facility] the event this information is protected by the Federal Confidentiality of Alcohol and Drug Abuse Patient Records regulations: The Federal rules restrict any use of the information to criminally investigate or prosecute any alcohol or drug abuse patient.[facility] the event this information is protected by the Federal Confidentiality of Alcohol and Drug Abuse Patient Records regulations: The Federal rules restrict any use of the information to criminally investigate or prosecute any alcohol or drug abuse patient.[facility] the event this information is protected by the Federal Confidentiality of Alcohol and Drug Abuse Patient Records regulations: The Federal rules restrict any use of the information to criminally investigate or prosecute any alcohol or drug abuse patient.[facility] the event this information is protected by the Federal Confidentiality of Alcohol and Drug Abuse Patient Records regulations: The Federal rules restrict any use of the information to criminally investigate or prosecute any alcohol or drug abuse patient.[facility] the event this information is protected by the Federal Confidentiality of Alcohol and Drug Abuse Patient Records regulations: The Federal rules restrict any use of the information to criminally investigate or prosecute any alcohol or drug abuse patient.[facility] the event this information is protected by the Federal Confidentiality of Alcohol and Drug Abuse Patient Records regulations: The Federal rules restrict any use of the information to criminally investigate or prosecute any alcohol or drug abuse patient.[facility] the event this information is protected by the Federal Confidentiality of Alcohol and Drug Abuse Patient Records regulations: The Federal rules restrict any use of the information to criminally investigate or prosecute any alcohol or drug abuse patient.[facility] the event this information is protected by the Federal Confidentiality of Alcohol and Drug Abuse Patient Records regulations: The Federal rules restrict any use of the information to criminally investigate or prosecute any alcohol or drug abuse patient.[facility] the event this information is protected by the Federal Confidentiality of Alcohol and Drug Abuse Patient Records regulations: The Federal rules restrict any use of the information to criminally investigate or prosecute any alcohol or drug abuse patient.[facility] the event this information is protected by the Federal Confidentiality of Alcohol and Drug Abuse Patient Records regulations: The Federal rules restrict any use of the information to criminally investigate or prosecute any alcohol or drug abuse patient.[facility] Reason for Visit (unrecogniz ed section and content) Reason Comments ER F/U Reason Comments Patient Update Reason Comments Established Patient Follow Up Reason Comments Orders CT Reason Comments Consult Reason Comments Follow Up Reason Comments Orders Specialty Diagnoses / Procedures Referred By Contac t Referred To Contact CT IMAGING Diagnoses Renal mass, right Other specified disorders of kidney and ureter Procedures CT KIDNEY WO/W IVCON CT ABDOMEN W & W/O CONTRAST Lex Pickens MD [address] [place] [address] Ct Imaging [place] [address] Referral ID Status Reason Start Date Expiration Date V isits Requested Visits Authorized [id number] Closed Auto-Generate d Referral 10/16/2022 11/15/2023 [address] Specialty Diagnoses / Procedures Referred By Contac t Referred To Contact CT IMAGING Diagnoses Other specified disorders of kidney and ureter Procedures CT KIDNEY WO/W IVCON CT ABDOMEN W & W/O CONTRAST Lex Pickens MD [address] [place] [address] Ct Imaging [place] [address] Referral ID Status Reason Start Date Expiration Date V isits Requested Visits Authorized [id number] Closed Auto-Generate d Referral 10/07/2022 05/09/2023 1 1 Specialty Diagnoses / Procedures Referred By Contac t Referred To Contact CT IMAGING Diagnoses Other specified disorders of kidney and ureter Procedures CT KIDNEY WO/W IVCON CT ABDOMEN W & W/O CONTRAST Judson Quiroga MD [address] [place] [address] Ct Imaging [place] [address] Referral ID Status Reason Start Date Expiration Date V isits Requested Visits Authorized [id number] Closed Auto-Generate d Referral 03/16/2022 04/15/2023 1 1 Reason Comments Radio Gen RMP Care Teams (unrecognized sec tion and content) Chief Clerk Shelter Relationship Specialty Start Date End Date Dawit Ba Sr. PCP - General Family Practice 10/24/14 Chief Clerk Shelter Relationship Specialty Start Date End Date Dawit Ba Sr. PCP - General Family Practice 10/24/14 Chief Clerk Shelter Relationship Specialty Start Date End Date Dawit Ba Sr. PCP - General Family Practice 10/24/14 Chief Clerk Shelter Relationship Specialty Start Date End Date Dawit Ba Sr. PCP - General Family Medicine 10/24/14 Chief Clerk Shelter Relationship Specialty Start Date End Date Dawit Ba Sr. PCP - General Family Medicine 10/24/14 Chief Clerk Shelter Relationship Specialty Start Date End Date Dawit Ba Sr. PCP - General Family Medicine 10/24/14 Team Status: Active Member Role Status Dates Dawit Ba , DO Primary Care Provider Active Team Status: Inactive Member Role Status Dates Dawit Ba , DO Primary Care Provider Active Bebo Sims , DO Attending Provider Active Chief Clerk Shelter Relationship Specialty Start Date End Date Dawit Ba Sr. PCP - General Family Medicine 10/24/14 Chief Clerk Shelter Relationship Specialty Start Date End Date Dawit Ba Sr. PCP - General Family Medicine 10/24/14 Chief Clerk Shelter Relationship Specialty Start Date End Date Ludin Blanchard MD PCP - General Family Medicine 10/06/22 Jenny Borrego, MICROFILM CLERK [address] [place] [address] Nurse Practitioner Family Medicine 12/27/22 Chief Clerk Shelter Relationship Specialty Start Date End Date Ludin Blanchard MD PCP - General Family Medicine 10/06/22 Jenny Borrego NP [address] [place] [address] Nurse Practitioner Family Medicine 12/27/22 Chief Clerk Shelter Relationship Specialty Start Date End Date Ludin Blanchard MD PCP - General Family Medicine 10/06/22 Jenny Borrego NP [address] [place] [id number] Nurse Practitioner Family Medicine 12/27/22 Team Status: [...] April 13, 2023 End: April 13, 2023 Chief Clerk Shelter Relationship Specialty Start Date End Date Dawit Ba Sr., PCP - General Family Medicine 10/24/14 Chief Clerk Shelter Relationship Specialty Start Date End Date Dawit Ba Sr., DO PCP - General Family Medicine 10/24/14 Chief Clerk Shelter Relationship Specialty Start Date End Date Dawit Ba Sr., DO PCP - General Family Medicine 10/24/14 Chief Clerk Shelter Relationship Specialty Start Date End Date Dawit Ba Sr., DO PCP - General Family Medicine 10/24/14 Chief Clerk Shelter Relationship Specialty Start Date End Date Dawit Ba Sr., DO PCP - General Family Medicine 10/24/14 Chief Clerk Shelter Relationship Specialty Start Date End Date Dawit [...] BE BASED ON THE PRIMARY CLINICAL RECORDS. [facility]. provides no warranty or guarantee of the accuracy or completeness of information in this document.
--- NOTE | 2023-11-19 19:51 | XR_ITS ---
The [address] [address] Patient Name: ELMER ELLIS MRN: [id number] date: 1965 Sex: F Assigned Patient Location: ER Current Patient Location: ER Accession/Order Number: [id number] Exam Date: 11/19/2023 20:11 Report Date: 11/19/2023 20:49 At the request of: SUNSHINE ORTIZ Procedure: XR ankle RT min 3V EXAM: XR ankle RT min 3V HISTORY: injury COMPARISON: 07/10/2023 TECHNIQUE: AP lateral oblique right ankle x-ray. FINDINGS: No increasing soft tissue edema or swelling. No fracture or healing fracture. Mild degenerative changes around the ankle, normal symmetric mortise. Thick prominent posterior and plantar calcaneal spurs unchanged. Degenerative changes midfoot. XR/XR ankle RT min 3V IMPRESSION: No fracture or healing fracture or other acute abnormality. Degenerative changes. Electronically authenticated by: AFSHAN HOWARD Date: 11/19/2023 20:49
--- NOTE | 2023-11-19 20:04 | ED.GENADUL1 ---
HPI HPI - General Adult General Chief complaint: Extremity Injury, Lower Stated complaint: LOWER RIGHT EXTREMITY PAIN Time Seen by Provider: 11/19/23 19:43 Source: patient Mode of arrival: Wheelchair Limitations: no limitations History of Present Illness HPI narrative: 58-year-old female to the emergency department with recent injury to her right ankle. Patient reports that she went to step up a stair felt a pop and had immediate pain and weakness in her ankle/foot. She reports she has difficulty lifting up and putting down her foot. It is painful whenever she moves. She had an old walking boot which she has been wearing. No other injuries. Related Data Home Medications ?Medication ?Instructions ?Recorded ?Confirmed atorvastatin 80 mg tablet 80 mg PO DAILY 07/10/23 07/10/23 cetirizine 10 mg tablet (Allergy 10 mg PO DAILY 07/10/23 07/10/23 Relief (cetirizine)) clopidogrel 75 mg tablet 75 mg PO DAILY 07/10/23 07/10/23 dapagliflozin propanediol 10 mg 10 mg PO DAILY 07/10/23 07/10/23 tablet (Farxiga) duloxetine 30 mg capsule,delayed 30 mg PO .hs 07/10/23 07/10/23 release duloxetine 60 mg capsule,delayed 60 mg PO .am 07/10/23 07/10/23 release ferrous sulfate 325 mg (65 mg 325 mg PO DAILY 07/10/23 07/10/23 iron) tablet fluticasone propionate 50 1 spray intranasal Q12H 07/10/23 07/10/23 mcg/actuation nasal spray,suspension folic acid 1 mg tablet 1 mg PO DAILY 07/10/23 07/10/23 furosemide 40 mg tablet 40 mg PO .am 07/10/23 07/10/23 insulin aspar prot-insulin aspart 1 unit subcut ACHS 07/10/23 07/10/23 100 unit/mL (70-30) subcutaneous pen (Novolog Mix 70-30FlexPen U-100) metformin 1,000 mg tablet mg 07/10/23 methocarbamol 500 mg tablet 500 mg PO BID 07/10/23 07/10/23 metoprolol succinate 50 mg 50 mg PO DAILY 07/10/23 07/10/23 tablet,extended release 24 hr pantoprazole 40 mg tablet,delayed 40 mg PO DAILY 07/10/23 07/10/23 release pregabalin 100 mg capsule 100 mg PO Q8H 07/10/23 07/10/23 rivaroxaban 10 mg tablet (Xarelto) 10 mg PO Q24H 07/10/23 07/10/23 Previous Rx's ?Medication ?Instructions ?Recorded oxycodone-acetaminophen 5 mg-325 1 tab PO Q6H PRN pain 3 days #12 11/19/23 mg tablet (Percocet) tabs Allergies Allergy/AdvReac Type Severity Reaction Status Date / Time No Known Drug Allergies Allergy Verified 11/19/23 19:47 Opioid HPI Opioid Management Most Recent Opioid Data: Last Pain Scale 6 11/19/23 20:24 Review of Systems ROS Status of ROS 10 or more systems reviewed and unremarkable except as noted in history and below PFSH PFSH Social History Little interest or pleasure in doing things: not at all Feeling down, depressed, or hopeless: not at all Exam Narrative Exam Narrative: VITALS: I have reviewed the triage vital signs. GENERAL: Morbidly obese adult female in no distress NEURO: Alert and oriented. Moves all extremities. Face is symmetric and expressive. EYES: PERRL. No scleral icterus or conjunctival injection. No discharge. HENT: Normocephalic, atraumatic. Hearing is grossly intact. Nares grossly patent and without discharge. Mucous membranes moist. NECK: No JVD. Patient moves neck without restriction. Right lower extremity: DP and PT pulse are intact. Sensation is intact over the lower extremity. Limb is similar color and temperature the contralateral extremity. No edema. There is tenderness over the Achilles on the right. She has increased pain with plantarflexion dorsiflexion weakness with such. Knee and hip within normal limits, no pain with range of motion. SKIN: Warm and dry. Normal turgor. No rash or lesions appreciated. PSYCH: Mood, affect, and interaction is appropriate to the setting. Constitutional Vital Signs, click to edit/add: Last Vital Signs Temp 98.5 F 11/19/23 19:43 Pulse 88 11/19/23 19:43 Resp 20 11/19/23 19:43 BP 114/40 L 11/19/23 19:43 Pulse Ox 98 11/19/23 19:43 O2 Del Method Room Air 11/19/23 19:43 Course Vital Signs Vital signs: Vital Signs Temperature 98.5 F 11/19/23 19:43 Pulse Rate 88 11/19/23 19:43 Respiratory Rate 20 11/19/23 19:43 Blood Pressure 114/40 L 11/19/23 19:43 Pulse Oximetry 98 11/19/23 19:43 Oxygen Delivery Method Room Air 11/19/23 19:43 Temperature 98.5 F 11/19/23 19:43 Pulse Rate 88 11/19/23 19:43 Respiratory Rate 20 11/19/23 19:43 Blood Pressure 114/40 L 11/19/23 19:43 Pulse Oximetry 98 11/19/23 19:43 Oxygen Delivery Method Room Air 11/19/23 19:43 Medical Decision Making MDM Narrative Medical decision making narrative: 58-year-old female to the emergency department chief complaint of injury to right ankle. Vital stable, the patient is afebrile. The right lower extremity is neurovascularly intact. Suspect Achilles tendon injury based on the history and clinical exam. X-rays initiated. Percocet for pain. X-ray negative. Findings were discussed with the patient. High clinical suspicion for Achilles tendon injury. Walking boot. Orthopedic follow-up. Short course of Percocet for her pain. Return precautions were discussed. All questions were answered. The patient was discharged home Medical Records Medical records reviewed: Yes I reviewed the patient's medical records Imaging Data Ankle pain: Radiologist's impression: ITS Impressions Ankle X-Ray 11/19/23 19:51 IMPRESSION: No fracture or healing fracture or other acute abnormality. Degenerative changes. Electronically authenticated by: AFSHAN HOWARD Date: 11/19/2023 20:49 Discharge Plan Discharge Chief Complaint: Extremity Injury, Lower Clinical Impression: Ankle pain Patient Disposition: Home, Self-Care Time of Disposition Decision: 20:07 Condition: Good Mode of Transportation: Private Vehicle Prescriptions / Home Meds: New oxycodone-acetaminophen [Percocet] 5-325 mg tablet 1 tab PO Q6H PRN (Reason: pain) 3 Days Qty: 12 0RF No Action atorvastatin 80 mg tablet 80 mg PO DAILY cetirizine [Allergy Relief (cetirizine)] 10 mg tablet 10 mg PO DAILY clopidogrel 75 mg tablet 75 mg PO DAILY dapagliflozin propanediol [Farxiga] 10 mg tablet 10 mg PO DAILY duloxetine 30 mg capsule,delayed release(DR/EC) 30 mg PO .hs duloxetine 60 mg capsule,delayed release(DR/EC) 60 mg PO .am ferrous sulfate 325 mg (65 mg iron) tablet 325 mg PO DAILY fluticasone propionate 50 mcg/actuation spray,suspension 1 spray INTRANASAL Q12H folic acid 1 mg tablet 1 mg PO DAILY furosemide 40 mg tablet 40 mg PO .am metformin 1,000 mg tablet insulin asp prt-insulin aspart [Novolog Mix 70-30FlexPen U-100] 100 unit/mL (70-30) insulin pen 1 unit SUBCUT ACHS Rx Instructions: sliding scale methocarbamol 500 mg tablet 500 mg PO BID pregabalin 100 mg capsule 100 mg PO Q8H Xarelto 10 mg tablet 10 mg PO Q24H pantoprazole 40 mg tablet,delayed release (DR/EC) 40 mg PO DAILY metoprolol succinate 50 mg tablet extended release 24 hr 50 mg PO DAILY Print Language: Arabic Referrals: Jenny Borrego NP [Primary Care Provider] - 1 week Vishal Yin MD [Physician] - 11/21/23 (Call the office and ask for appointment [facility]. )
[2023-11-19] MEDS: OXYCODONE HCL/ACETAMINOPHEN 5MG/325MG 1 TAB PO (20:24)
== END 2023-11-19 21:15 | disposition home or self-care (01) ==
PROVIDERS: Emergency Provider Student in an Organized Health Care Education/Training Program; PCP Nurse Practitioner
DX: M25.571 Pain in right ankle and joints of right foot (principal); E66.01 Morbid (severe) obesity due to excess calories; Z68.42 Body mass index [BMI] 45.0-49.9, adult
CPT/HCPCS: 73610; 99283

== ENCOUNTER 2024-03-15 10:42 | Outpatient (RCR) | payer MEDICARE, SELFPAY | END 2024-04-14 09:29 | disposition home or self-care (01) | LOC: PT 10:42 | PROVIDERS: PCP Nurse Practitioner; Visit Provider Orthopaedic Surgery | DX: S86.011D Strain of right Achilles tendon, subsequent encounter (principal); M25.561 Pain in right knee | CPT/HCPCS: 97110; 97140; 97161 ==

== ENCOUNTER 2024-05-03 09:45 | Outpatient (OUT) | payer MEDICARE, SELFPAY ==
--- NOTE | 2024-05-03 10:01 | MM_ITS ---
Patient Name: ELMER ELLIS MR#: [id number] : 1965 Exam Date: 05/03/2024 Ordering Doctor: CARLO Borrego CNP RADIOLOGY REPORT PROCEDURE: MM TOMOSYNTHESIS SCREENING BI COMPARISON: MM TOMOSYNTHESIS SCREENING BI, 11/19/2022. MG MAMM SHEEBA DIAG W CAD DIG, 04/13/2013. INDICATIONS: Screening Calculator Name NCI Breast Cancer Risk Assessment Tool 5 Year Breast Cancer Risk 1.10% Lifetime Breast Cancer Risk 6.30% Personal Breast Cancer No Personal Ovarian Cancer No Treatments None Family Cancers Sister with lung cancer at age 48. LOCATION: [facility] BREAST COMPOSITION: There are scattered areas of fibroglandular density. FINDINGS: DIAGNOSTIC CATEGORY 1--NEGATIVE. RIGHT BREAST: No significant suspicious finding. LEFT BREAST: No significant suspicious finding. RECOMMENDATIONS: ROUTINE MAMMOGRAM AND CLINICAL EVALUATION IN 12 MONTHS. PLEASE NOTE: A NORMAL MAMMOGRAM DOES NOT EXCLUDE THE POSSIBILITY OF BREAST CANCER. A CLINICALLY SUSPICIOUS PALPABLE LUMP SHOULD BE BIOPSIED. Dictated by: Vinnie Woody DO on 05/03/2024 at 12:30 Approved by: Vinnie Woody DO on 05/03/2024 at 12:32
--- OUTSIDE RECORDS SUMMARY | 2024-05-03 10:05 | XMS_ITS | CCD ---
Author Organization [facility] Care Team Providers Care 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 Name Role Phone Dawit Ba Primary Care Physician [phone] [place] Sr., Dawit Aviles Primary Care Provider [place] Sr., Dawit Aviles Primary Care Provider [place] SR, DAWIT AVILES Primary Care Unavai lable HOUSE SR, DAWIT STEFAN Primary Care Unavamir lable LILLY TONY Attending Unavailable TONY, LILLY Attending Unavailable HOUSE SR, DAWIT [facility] Care Unavai lable HOUSE SR, DAWIT [facility] Primary Care UnavaLILLY Phan Attending Unavailable MD Jluis ROBLEDO Attending Unavailable House, Dawit Hong Referring Unavail able MD Jluis ROBLEDO Attending Unavailable [place] Sr., Dawit Aviles Primary Care Provider DO Dawit Ba Primary Care Provider [phone] DO Bebo Sims Attending Provider [phone] HOUSE, DR PRITCHETT Attending Unavailable [place], DR PRITCHETT Consulting Unavailable [place], DR PRITCHETT Primary Care Unavailable [place], DR PRITCHETT Admitting Unavailable [place], DR PRITCHETT Attending Unavailable HOUSE, DR PRITCHETT Consulting Unavailable [place], DR PRITCHETT Primary Care Unavailable HOUSE, DR PRITCHETT Admitting Unavailable HOUSE, DR PRITCHETT Primary Care Unavailable VENKAT ., DR KING Attending Unavailable ROBLEDO ., DR KING Consulting Unavailable ROBLEDO ., DR KING Admitting [facility] MICHOACANO Jacinto Consulting Unavailable [place], DR PRITCHETT Attending Unavailable HOUSE, DR PRITCHETT Primary Care Unavailable [place], DR PRITCHETT Admitting Unavailable Ludin Blanchard MD Primary Care Provider Salima CARVING MACHINE OPERATOR, Jenny Unavailable DO Dawit Ba Referring Provider CJ Brown Attending Provider Jenny Borrego Primary Care Provider [phone] Jenny Borrego Attending Provider House Sr., Dawit US Primary Care Prov ider House Sr., DO Dawit Gely Primary Care Provider LEX PICKENS Attending Unavailable HOUSE SR, DAWIT Gely Primary Care Unavailable LEX PICKENS Referring Unavailable HOUSE SR, DAWIT P Primary Care Unavailable FRIDA, LEX Ortiz Attending Unavailable HOUSE SR, DAWIT P Primary Care Unavailable FRIDA, LEX Ortiz Referring Unavailable HOUSE SR, DAWIT Hong Primary Care Unavailable Kevin, Joanne Crespo Attending Unavail able Jenny Borrego Primary Care Unavailable Mejia, Dawit Referring Unavailable Dembosrubén, Joanne Crespo Admitting Unavail able Aichholz CARVING MACHINE OPERATOR, Jenny Unavailable Ludin Blanchard MD Primary Care Provider Dawit Ba DO Primary Care Provider MALIK BENAVIDES Admitting Unavailable MOUKARBEL, MALIK Attending Unavailable MOUKARBEL, MALIK Attending Unavailable MOUKARBEL, MALIK Attending Unavailable MOUKARBEL, MALIK Attending Unavailable JR. ISHAN, MALIK Schultz Attending Unavaila ble AICHHOLJuany, JENNY Attending Unavailable DORI WESLEY Attending Unavailable AICHHOLJuany, JENNY Attending Unavailable SONAM, LISETTE Tijerina Attending Unavailable AICHHOLZ, JENNY Attending Unavailable SONAM, LISETTE Tijerina Attending Unavailable KENDELL VIDES Attending Unavailable AICHHOLJuany, JENNY Referring Unavailable SONAM, LISETTE Tijerina Attending Unavailable AICHHOLZ, JENNY Attending Unavailable MAHOGANYKENDELL Referring Unavailable APLINGDEONNA Attending Unavailable APLING, DEONNA B Referring Unavailable APLING, DEONNA Mccray Referring Unavailable DORI WESLEY Attending Unavailable DORI WESLEY Referring Unavailable JR. BEAL GEORGE C Attending Unavaila DORI Graves Referring Unavailable AICHJENNY AMATO Primary Care Unavailable Allergies Allergy Classification Reported Allergen(s) Allergy Type Date of Onset Reaction(s) Facility (1 source) Gluten Drug allergy (disorder) [facility] (1 source) Wheat preparation Drug Allergy [facility] (1 source) [facility]; Translations: [Brainlike-Food] Food allergy (disorder) [facility] Medications Current Medications Medication Drug [...] food. 20 tablet 0 04/05/2023 04/15/2023 Active apixaban 2.5 mg oral tablet (5 sources) Factor Xa Inhibitor Start: 04-17-19 End: 07-17-19 take 1 tablet by mouth in the morning apixaban (Eliquis) 2.5 MG tablet Indications: Factor V Leiden ([facility]) Take 1 tablet (2.5 mg) by mouth in the morning and 1 tablet (2.5 mg) before bedtime. 180 tablet 1 04/17/2024 07/16/2024 Active aspirin 81 mg delayed release oral tablet (20 sources) Platelet Aggregation Inhibitor, Nonsteroidal Anti-inflammatory Drug [...] Ordered ASPIRIN 81 MG ch ewable tablet - Active atorvastatin 80 mg oral tablet (20 sources) HMG-CoA Reductase Inhibitor Start: 02-21-2024 End: 05-21-2024 take 1 tablet by mouth at bedtime atorvastatin (Lipitor) 80 MG tablet Indications: Hypertriglyceridemia (CMS/HCC) Take 1 tablet (80 mg) by mouth at bedtime 90 tablet 1 02/21/2024 05/21/2024 Active Start: 07-26-2021 End: 02-12-2024 take 1 tablet by mouth at bedtime atorvastatin (Lipitor) 80 MG tablet Indications: Hypertriglyceridemia (CMS/HCC) Take 1 tablet (80 mg) by mouth at bedtime 90 tablet 1 11/14/2023 Active Comment on above: Take 80 mg by mouth once daily. Centrum Silver (2 sources) Start: Centrum Silver Oral, Daily, Refill(s) 0 Start Date: 07/27/21 Status: Ordered cetirizine hydrochloride 10 mg oral tablet (20 sources) Histamine-1 Receptor Antagonist Start: End: take 1 tablet by mouth once daily cetirizine (ZyrTEC) 10 MG tablet Indications: Environmental and seasonal allergies Take 1 tablet (10 mg) by mouth Daily 90 tablet 1 04/17/2024 07/16/2024 Active Start: 10-02-2023 End: 12-31-2023 take 1 tablet by mouth once daily cetirizine (ZyrTEC) 10 MG tablet Indications: Environmental and seasonal allergies TAKE 1 TABLET (10 MG) BY MOUTH DAILY. 90 tablet 1 10/02/2023 12/31/2023 Active cholecalciferol 0.125 mg oral tablet (13 sources) Vitamin D Start: 07-27-2021 cholecalcifero l (VITAMIN D3) 5,000 unit tab Vitamin D3 Refills(s) 0 Start Date: 07/27/21 Status: Ordered 07/27/2021 Active Comment on above: Vitamin D3 Refills(s ) 0 Start Date: 07/27/21 Status: Ordered Continuous Blood Gluc Sensor (FreeStyle Joelle 2 Sensor) misc (20 sources) Start: 09-23-2022 Continuous Blo od Gluc Sensor (FreeStyle Joelle 2 Sensor) misc USE TO TEST BLOOD SUGAR 4 TIMES DAILY 09/23/2022 Active Start: 09-23-2022 Continuous Blo od Gluc Sensor (FreeStyle Joelle 2 Sensor) misc USE TO TEST BLOOD SUGAR 4 TIMES DAILY 0 09/23/2022 Active dapagliflozin 10 mg oral tablet (20 sources) Sodium-Glucose Cotransporter 2 Inhibitor Start: 01-11-2024 End: 07-16-2024 take 1 tablet by mouth in the morning dapagliflozin (Farxiga) 10 MG Indications: Type 2 diabetes mellitus with diabetic neuropathy, with long-term current use of insulin (CMS/HCC) Take 1 tablet (10 mg) by mouth in the morning. 90 tablet 1 04/17/2024 07/16/2024 Active Start: 06-23-2023 take 1 tablet by tyrese th in the morning dapagliflozin (Farxiga) 10 MG Indications: Type 2 diabetes mellitus with diabetic neuropathy, with long-term current use of insulin (CMS/HCC) Take 1 tablet (10 mg) by mouth in the morning. 90 tablet 1 06/23/2023 Active Start: 02-25-2023 take 1 tablet by tyrese th in the morning dapagliflozin (Farxiga) 10 MG Indications: Type 2 diabetes mellitus with diabetic neuropathy, with long-term current use of insulin (CMS/HCC) Take 1 tablet (10 mg) by mouth in the morning. 30 tablet 2 02/25/2023 Active diclofenac potassium 50 mg oral tablet (20 sources) Nonsteroidal Anti-inflammatory Drug Start: 06-02-2022 take 50 mg by mouth twice daily Diclofenac Potassium Active 50 MG PO Twice daily June 01, 2022 11:00pm take 1 tablet by tyrese th three times daily diclofenac (CATAFLAM) 50 mg tablet Take 50 mg by mouth 3 (three) times a day. Active End: 12-14-2023 Diclofenac 18 MG capsule Dic lofenac 12/14/2023 Discontinued (Med list cleanup) DULoxetine 30 mg delayed release oral capsule (20 sources) Serotonin and Norepinephrine Reuptake Inhibitor Start: 06-23-2023 End: 11-23-2023 take 1 capsule by mouth once daily DULoxetine (Cymbalta) [address] capsule Indications: Type 2 diabetes mellitus with diabetic neuropathy, unspecified (CMS/HCC) , Diabetic neuropathy, painful (CMS/HCC) , Anxiety and depression (CMS/HCC) Take 1 capsule (30 mg) by mouth Daily Total dose is 90mg daily 90 capsule 1 11/23/2023 Active Start: 06-23-2023 End: 04-06-2024 take 1 capsule by mouth once daily DULoxetine (Cymbalta) [address] capsule Indications: Type 2 diabetes mellitus with diabetic neuropathy, unspecified (CMS/HCC) , Anxiety and depression (CMS/HCC) Take 1 capsule (60 mg) by mouth Daily 90 capsule 1 11/23/2023 04/06/2024 Discontinued () Start: 03-01-2023 take 1 capsule by [facility] once daily in the morning DULoxetine (Cymbalta) [...] mouth. ferrous sulfate 325 mg oral tablet (20 sources) Start: 08-21-2023 End: 06-09-2024 take 1 tablet by mouth at mealtime ferrous sulfate 325 (65 Fe) MG tablet Indications: Anemia, unspecified Take 1 tablet (325 mg) by mouth in the morning. Take with meals. 90 tablet 1 03/11/2024 06/09/2024 Active Start: 06-02-2022 take 325 mg by mouth once ganesh y Ferrous Sulfate Active 325 MG PO Daily June 01, 2022 11:00pm Luz (17 sources) Histamine-1 Receptor Antagonist Start: 07-27-2021 Luz Oral, Refill s(s) 0 Start Date: 07/27/21 Status: Ordered take 1 tablet by tyrese th once daily fexofenadine (LUZ) 180 mg tablet fexofenadine 180 mg tablet TAKE 1 TABLET BY MOUTH EVERY DAY Active End: 03-24-2023 fexofenadine (Luz Allerg y) 60 MG tablet Luz 0 03/24/2023 Discontinued (Therapy completed) Comment on above: fexofenadine 180 mg tablet TAKE 1 TABLET BY MOUTH EVERY DAY fluticasone propionate 0.05 mg/actuat metered dose nasal spray (20 sources) Corticosteroid Start: 07-19-19 End: 07-17-19 take 2 spray(s) nasal route once daily fluticasone (Flonase) 50 MCG/ACT nasal spray Indications: Environmental and seasonal allergies Administer 2 sprays into each nostril Daily Shake gently. Before first use, prime pump. After use, clean tip and replace cap. 48 g 1 04/17/2024 07/16/2024 Active fluticasone / vilanterol (2 sources) Corticosteroid, beta2-Adrenergic Agonist fluticasone/vilanter o l (BREO ELLIPTA INHL) Inhale. Active folic acid 1 mg oral tablet (20 sources) Start: 06-08-19 take 1 tablet by mouth once daily folic acid (Folvite) 1 MG tablet Take 1,000 mcg by mouth Daily 06/08/2023 Active furosemide 40 mg oral tablet (20 sources) Loop Diuretic Start: 07-28-19 End: 02-18-20 24 take 1 tablet by mouth once daily furosemide (Lasix) 40 MG tablet Indications: Bilateral lower extremity edema Take 1 tablet (40 mg) by mouth Daily 90 tablet 1 11/20/2023 Active Comment on above: furosemide 40 mg tab let TAKE 1 AND 1/2 TABLETS BY MOUTH DAILY gabapentin 800 mg oral tablet (20 sources) Anti-epileptic Agent Start: 03-01-19 End: 05-30-19 take 1 tablet by mouth every eight [...] Start: 08-25-2021 take 2 capsules by m outh twice daily gabapentin (NEURONTIN) 300 mg capsule Take 600 mg by mouth twice daily. 08/25/2021 Active Start: 07-27-2021 take 1 capsule by mo [facility] twice daily gabapentin 300 mg Cap 300 mg = 1 cap(s), Oral, BID, # 60 cap(s), Refills(s) 0 Start Date: 07/27/21 Status: Ordered Comment on above: Take 600 mg by mouth twice daily. Humalog 75/25 Injection-Insulin (1 source) Start: 07-27-2021 Humalog 75/25 Injection-Insulin unit(s), SubCutaneous, BIDAC, Refills(s) 0 Start Date: 07/27/21 Status: Ordered 3 ml insulin aspart protamine, human 70 unt/ml / insulin aspart, human 30 unt/ml pen injector (20 sources) Insulin Analog Start: 05-17-2023 End: 06-09-2024 insulin aspart protamine-insulin aspart (NovoLOG MIX 70/30 FLEXPEN) (70-30) 100 UNIT/ML injection Indications: Type 2 diabetes mellitus without complications (CMS/HCC) Inject 75 Units under the skin in the morning and 75 Units in the evening. Inject with meals. 135 mL 1 03/11/2024 06/09/2024 Active Start: 06-02-2022 Insulin Asp Pr t-Insulin Aspart (Novolog Mix 70-30flexpen U- 100) 100 unit/mL (70-30) insulin pen Active 70 UNIT SUBCUT Twice daily June 01, 2022 11:00pm insulin isophane, human 70 unt/ml / insulin, regular, human 30 unt/ml injectable suspension (4 sources) Insulin End: 03-24-2023 insulin NPH and regular human (HumuLIN 70-30,NovoLIN 70-30) 100 unit/mL (70-30) injection Inject 50 Units under the skin 2 (two) times a day before meals. Active insulin lispro 25 unt/ml / insulin lispro protamine, human 75 unt/ml injectable suspension (16 sources) Insulin Analog Start: 07-27-2021 End: 03-24-2023 insulin 75/25 lispro protamine/lispro units/mL (HUMALOG MIX 75-25,U-100,INSULN) 100 units/mL susp as directed. 07/27/2021 Active Start: 07-27-2021 Humalog 75/25 Injection-Insulin unit(s), SubCutaneous, BIDAC, Refills(s) 0 Start Date: 07/27/21 Status: Ordered Comment on above: as directed. metFORMIN hydrochloride 1000 mg oral tablet (15 sources) Biguanide Start: 2 take 1 tablet by mouth twice daily metFORMIN (GLUCOPHAGE) 1,000 mg tablet Take 1,000 mg by mouth twice daily. 09/13/2021 Active Comment on above: Take 1,000 mg by tyrese th twice daily. methocarbamol 500 mg oral tablet (20 sources) Muscle Relaxant Start: 4 End: 4 take 1 tablet by mouth once methocarbamol (Robaxin) 500 MG tablet Indications: Chronic back pain, unspecified back location, unspecified back pain laterality Take 1 tablet (500 mg) by mouth every 12 (twelve) hours if needed for muscle spasms 60 tablet 3 01/11/2024 Active Start: 09-06-2023 take 1 tablet by mouth once me thocarbamol (Robaxin) 500 MG tablet Indications: Chronic back pain, unspecified back location, unspecified back pain laterality Take 1 tablet (500 mg) by mouth every 12 (twelve) hours if needed for muscle spasms 60 tablet 3 09/06/2023 Active Start: 06-02-2022 take 500 mg by mouth twice daily [...] 25 mg by mouth in the morning. 01/19/2023 Active Start: 07-27-2021 End: 06-16-2022 take [...] TAKE 1 TABLET BY MOUTH EVERY DAY vadfcrru-mncj-SF-calcium &mins (THERAGRAN-M) 9 mg iron-400 mcg tablet (2 sources) asenookr-xxxd-RM -calciu m &mins (THERAGRAN-M) 9 mg iron-400 mcg tablet Take 1 tablet by mouth daily. Active ynjezjgw-xaq-kctr-FA-lute in (CENTRUM SILVER WOMEN) 8 mg iron-400 mcg-300 mcg tab (13 sources) ejsngkan-bfk-rnf n-FA-annel tein (CENTRUM SILVER WOMEN) 8 mg iron-400 mcg-300 mcg tab Active mwnbblny-xkh-hlm n-FA-lutein (CENTRUM SILVER WOMEN) 8 mg iron-400 mcg-300 mcg tab MV with Svp-Dycthrvh-Slvxol (CENTRUM SILVER) 0.4 mg-300 mcg- 250 mcg tab (13 sources) Start: 07-27-2021 take 1 tablet by mouth once MV with Rie-Sesggasx-Nfvgyr (CENTRUM SILVER) 0.4 mg-300 mcg- 250 mcg tab Take by mouth. 07/27/2021 Active Start: 07-27-2021 MV with Min-Ly copene-Lutein (CENTRUM SILVER) 0.4 mg-300 mcg- 250 mcg tab Take by mouth. 0 07/27/2021 Active Comment on above: Take by mouth. omeprazole 20 mg delayed release oral capsule (2 sources) Proton Pump Inhibitor take 1 capsule by mouth once daily omeprazole (PriLOSEC) 20 mg capsule Take 20 mg by mouth daily. Active pantoprazole 40 mg delayed release oral tablet (20 sources) Proton Pump Inhibitor Start: 06-23-19 End: 07-17-19 take 1 tablet by mouth before mealtime pantoprazole (ProtoNix) 40 MG EC tablet Indications: Gastroesophageal reflux disease without esophagitis Take 1 tablet (40 mg) by mouth in the morning. Take before meals. 90 tablet 1 04/17/2024 07/16/2024 Active Start: 06-16-2022 take 40 mg by mouth once daily Pantoprazole Active 40 MG PO Daily June 15, 2022 11:00pm pregabalin 100 mg oral capsule (20 sources) Start: 03-20-2024 End: 06-18-2024 take 1 capsule by mouth every eight hours pregabalin (Lyrica) 100 MG capsule Indications: Type 2 diabetes mellitus with diabetic neuropathy, with long-term current use of insulin (CMS/HCC) Take 1 capsule (100 mg) by mouth every 8 (eight) hours 90 capsule 1 03/20/2024 06/18/2024 Active Start: 06-23-2023 End: 12-10-2023 take 1 capsule by mouth every eight hours pregabalin (Lyrica) 100 MG capsule Indications: Type 2 diabetes mellitus with diabetic neuropathy, with long-term current use of insulin (CMS/HCC) Take 1 capsule (100 mg) by mouth every 8 (eight) hours 90 capsule 2 11/10/2023 Active UNABLE TO FIND (2 sources) UNABLE TO FIND M ed Name: black seed oil BID Active vitamin b12 0.05 mg oral tablet (20 sources) Vitamin B12 take 1 tablet by mouth once daily in the morning cyanocobalamin (Vitamin B-12) 50 MCG tablet Take 50 mcg by mouth in the morning. Pt takes 1000 mg daily. Active Vitamin D3 (2 sources) Start: 07-27-2021 Vitamin D3 Refills(s) 0 Start Date: 07/27/21 Status: Ordered Completed/Discontinued Medications Medication Drug Class(es) Dates Sig (Normalized) Sig (Original) acetaminophen 300 mg / codeine phosphate 30 mg oral tablet (2 sources) Opioid Agonist End: 03-24-2023 acetaminophen-codei ne (TYLENOL/CODEINE #3) 300-30 MG tablet every 6 (six) hours. 0 03/24/2023 Discontinued (Therapy completed) cilostazol 100 mg oral tablet (20 sources) Phosphodiesterase 3 Inhibitor End: 01-16-2024 take 1 tablet by mouth twice daily cilostazol (Pletal) 100 MG tablet TAKE 1 TABLET BY MOUTH TWICE A DAY DIRECTED Oral for 90 01/16/2024 Discontinued (Therapy completed) clopidogrel 75 mg oral tablet (20 sources) P2Y12 Platelet Inhibitor Start: 09-25-2023 End: 06-13-2024 take 1 tablet by mouth once daily clopidogrel (Plavix) 75 MG tablet Indications: Atherosclerotic heart disease of [place] coronary artery without angina pectoris (CMS/HCC) Take 1 tablet (75 mg) by mouth Daily 90 tablet 1 03/15/2024 04/30/2024 Discontinued (Therapy completed) Start: 07-27-2021 End: 06-22-2023 take 1 tablet by mouth once daily clopidogrel (PLAVIX) 75 mg tablet clopidogrel 75 mg tablet TAKE 1 TABLET BY MOUTH EVERY DAY 07/27/2021 Active Comment on above: clopidogrel 75 mg ta blet TAKE 1 TABLET BY MOUTH EVERY DAY fluconazole 150 mg oral tablet (2 sources) Azole Antifungal Start: 02-16-20 End: 03-24-19 fluconazole (Diflucan) 150 MG tablet Indications: Antibiotic-induced yeast infection One time dose , then repeat again in 3 days 2 tablet 0 02/15/2023 03/24/2023 Discontinued (Therapy completed) Insulin Aspart Prot & Aspart (NOVOLOG 70/30 FLEXPEN RELION SC) (20 sources) End: 01-16-20 inject 75 [IU] by subcutaneous injection in the morning Insulin Aspart Prot & Aspart (NOVOLOG 70/30 FLEXPEN RELION SC) Inject 75 Units under the skin in the morning and 75 Units before bedtime. 01/16/2024 Discontinued (Therapy completed) inject 75 [IU] by pepper bcutaneous injection in the morning Insulin Aspart Prot & Aspart (NOVOLOG 70/30 FLEXPEN RELION SC) Inject 75 Units under the skin in the morning and 75 Units before bedtime. Active inject 75 [IU] by pepper bcutaneous injection in the morning Insulin Aspart Prot & Aspart (NOVOLOG 70/30 FLEXPEN RELION SC) Inject 75 Units under the skin in the morning and 75 Units before bedtime. 0 Active iv contrast (will be provide d with radiology test) (4 sources) Start: 10-16-2022 [...] in the CT contrast administration guidelines link. methylPREDNISolone (19 sources) Corticosteroid Start: 02-27-2024 End: 04-17-2024 methylPREDNISolone (Medrol Dospak) 4 MG tablets Indications: Primary osteoarthritis of right knee Follow schedule on package instructions 21 tablet 02/27/2024 04/17/2024 Discontinued (Therapy completed) Start: 02-27-2024 methylPREDNISo lone (Medrol Dospak) 4 MG tablets Indications: Primary osteoarthritis of right knee Follow schedule on package instructions 21 tablet 02/27/2024 Active Start: 12-20-2023 End: 12-20-2023 methylPREDNISolone acetate ( DEPO-Medrol) injection 40 mg Start: 12-20-2023 End: 12-20-2023 40 mg, Intra-articular, Once PRN Procedure, Starting on Tue12/20/23 at 1150, For 1 dose Multiple Vitamins-Minerals (Centrum Silver 50+Women) tablet (20 sources) End: 01-16-2024 Multiple Vitamins-Minerals (Centrum Silver 50+Women) tablet Orally 01/16/2024 Discontinued (Therapy completed) Multiple Vitamin s-Minerals (Centrum Silver 50+Women) tablet Orally Active Multiple Vitamin s-Minerals (Centrum Silver 50+Women) tablet Orally 0 Active rivaroxaban 10 mg oral tablet (20 sources) Factor Xa Inhibitor Start: 02-21-2024 End: 05-21-2024 take 1 tablet by mouth once daily rivaroxaban (Xarelto) 10 MG tablet Indications: Factor V Leiden (CMS/HCC) Take 1 tablet (10 mg) by mouth Daily 90 tablet 1 02/21/2024 04/17/2024 Discontinued (Cost of medication) Start: 07-27-2021 End: 12-11-2023 take 1 tablet by mouth once daily rivaroxaban (Xarelto) 10 MG tablet Indications: Factor V Leiden (CMS/HCC) Take 1 tablet (10 mg) by mouth Daily 90 tablet 1 09/12/2023 Active Comment on above: Xarelto 10 mg tablet sucralfate 1000 mg oral tablet (4 sources) Aluminum Complex Start: 06-02-2022 End: 03-24-2023 take 1 g by mouth at bedtime Sucralfate Discontinued 1 GM PO before meals and at bedtime June 01, 2022 11:00pm June 16, 2022 8:43am Problems Active Problems Problem Classification Problem Date Documented Da te Episodic/Chronic Anxiety disorders (20 sources) Mixed anxiety and depressive disorder; Translations: [Anxiety disorder, unspecified] Onset: 3 02-02-2023 Chronic Cancer of kidney and renal pelvis (20 sources) Malignant tumor of kidney; Translations: [Malignant neoplasm of unspecified kidney, except renal pelvis] Onset: 3 03-24-2023 Chronic Chronic kidney disease (20 sources) Chronic kidney disease stage 3A ; Translations: [Chronic kidney disease, stage 3a (HCC)] Onset: 4 01-16-2024 Chronic Chronic obstructive pulmonary disease and bronchiectasis (20 sources) Chronic bronchitis; Translations: [Unspecified chronic bronchitis] Onset: 3 Resolved: 5 02-02-2023 Chronic Coagulation and hemorrhagic disorders (20 sources) Factor V Leiden mutation; Translations: [Activated protein C resistance] Onset: 3 Chronic Coronary atherosclerosis and other heart disease (20 sources) Coronary arteriosclerosis; Translations: [Atherosclerotic heart disease of [place] coronary artery without angina pectoris] Onset: 0 Resolved: 4 Chronic Deficiency and other anemia (1 [...] Resolved: 4 Chronic Diabetes mellitus without complication (20 sources) Diabetes mellitus; Translations: [Type 2 diabetes mellitus] Onset: 3 07-27-2021 Chronic Disorders of lipid metabolism (20 sources) Hypertriglyceridemia; Translations: [Pure hyperglyceridemia] Onset: 0 Resolved: 5 02-02-2023 Chronic Esophageal disorders (20 sources) Gastroesophageal reflux disease without esophagitis; Translations: [Gastro-esophageal reflux disease without esophagitis] Onset: 4 05-23-2023 Chronic Essential hypertension (20 sources) Essential hypertension; Translations: [Essential (primary) hypertension] Onset: 4 01-16-2024 Chronic Fluid and electrolyte disorders (1 source) Other disorders of electrolyte and fluid balance, not elsewhere classified; Translations: [OTHER D/O ELECTROLYTE AND FL BAL NEC] Onset: 3 Episodic Fracture of lower limb (4 sources) Closed fracture of left ankle; Translations: [Other fracture of left lower leg, initial encounter for closed fracture] Onset: 2 Episodic Joint disorders and dislocations; trauma-related (20 sources) Chondromalacia of left patella; Translations: [Chondromalacia patellae, left knee] Onset: 3 10-05-2022 Chronic Joint disorders and dislocations; trauma-related (20 sources) Derangement of right knee; Translations: [Unspecified internal derangement of right knee] Onset: 3 10-05-2022 Chronic Joint disorders and dislocations; trauma-related (8 sources) Tear of medial meniscus of knee; Translations: [Complex tear of medial meniscus, current injury, right knee, initial encounter] 02-27-2024 Episodic Mood disorders (2 sources) Depressive disorder 07-27-2021 Chronic Noninfectious gastroenteritis (4 sources) Noninfective gastroenteritis and colitis, unspecified; Translations: [NONINFECTIVE GE AND COLITIS UNS] Onset: 3 Episodic Osteoarthritis (20 sources) Arthritis; Translations: [Arthritis of left acromioclavicular joint] Onset: 3 Resolved: 4 07-27-2021 Chronic Osteoporosis (20 sources) Osteoporosis; Translations: [Age-related osteoporosis without current pathological fracture] Onset: 3 02-02-2023 Chronic Other diseases of kidney and ureters (17 [...] URETER] Onset: 2 Chronic Other gastrointestinal disorders (20 sources) Intestinal malabsorption; Translations: [Intestinal malabsorption, unspecified] Onset: 3 10-05-2022 Chronic Other non-traumatic joint disorders (2 sources) Arthritis of right knee 12-20-2023 Chronic Other non-traumatic joint disorders (2 sources) Acute ankle pain; Translations: [Pain in right ankle and joints of right foot] 11-22-2023 Episodic Other non-traumatic joint disorders (8 sources) Pain in right knee; Translations: [Pain in joint, lower leg] 12-20-2023 Episodic Other nutritional; endocrine; and metabolic disorders (11 sources) Morbid obesity; Translations: [Morbid (severe) obesity due to excess calories] Onset: 3 Chronic Other nutritional; endocrine; and metabolic disorders (20 sources) Severe obesity; Translations: [Morbid (severe) obesity due to excess calories] Onset: 3 02-02-2023 Chronic Other nutritional; endocrine; and metabolic disorders (8 sources) Body mass index 40+ - severely obese; Translations: [Body mass index (BMI) 45.0-49.9, adult] Onset: 5 04-17-2024 Chronic Other nutritional; endocrine; and metabolic disorders (2 sources) Morbid (severe) obesity due to excess calories; Translations: [Morbid (severe) obesity due to excess calories] Onset: 3 Chronic Other upper respiratory disease (20 sources) Allergic disposition; Translations: [Other allergic rhinitis] Onset: 4 06-23-2023 Chronic Peripheral and visceral atherosclerosis (20 sources) Intermittent claudication; Translations: [Peripheral vascular disease, unspecified] Onset: 0 Resolved: 4 02-02-2023 Chronic Residual codes; unclassified (20 sources) Obstructive sleep apnea syndrome; Translations: [Obstructive sleep apnea (adult) (pediatric)] Onset: 3 02-02-2023 Chronic Residual codes; unclassified (2 sources) Hypersomnia; Translations: [Hypersomnia, unspecified] 12-14-2023 Chronic Residual codes; unclassified (1 source) Family history of malignant neoplasm of kidney; Translations: [Family history of malignant neoplasm of kidney] 08-26-2023 Episodic Spondylosis; intervertebral disc disorders; other back problems (1 source) Other intervertebral disc degeneration, lumbosacral region; Translations: [OTH IV DISC DEGEN LUMBOSACRAL RGN] Onset: Chronic Sprains and strains (10 sources) Rupture of right Achilles tendon; Translations: [Strain of right Achilles tendon, initial encounter] 11-22-2023 Episodic Past or Other Problems Problem Classification Problem Date Documented Da te Episodic/Chronic Allergic reactions (20 sources) Allergic condition; Translations: [Allergy, unspecified, initial encounter] Onset: 02-02-2023 Resolved: 06-23-2023 02-02-2023 Episodic Biliary tract disease (20 sources) Gallstone; Translations: [Calculus of gallbladder without cholecystitis without obstruction] Onset: 02-02-2023 07-27-2021 Episodic Cancer of kidney and renal pelvis (20 sources) History of malignant neoplasm of retroperitoneum; Translations: [Personal history of other malignant neoplasm of kidney] Onset: 02-02-2023 Resolved: 03-24-2023 03-24-2023 Episodic Cardiac dysrhythmias (20 sources) Intermittent palpitations; Translations: [Palpitations] Onset: 04-27-2019 02-02-2023 Episodic Conditions associated with dizziness or vertigo (20 sources) Dizziness and giddiness; Translations: [Dizziness and giddiness] Onset: 11-24-2023 11-24-2023 Episodic Deficiency and other anemia (20 sources) Anemia; Translations: [Anemia, unspecified] Onset: 10-05-2022 02-02-2023 Episodic Genitourinary symptoms and ill-defined conditions (20 sources) Retention of urine; Translations: [Retention of urine, unspecified] Onset: 07-27-2021 Episodic Mood disorders (20 sources) Mood disorders Onset: 03-24-2023 Resolved: 04-17-2024 03-24-2023 Mycoses (20 sources) Candidiasis of vagina; Translations: [Yeast infection of the vagina] Onset: 02-02-2023 Resolved: 10-20-2023 02-02-2023 Episodic Other circulatory disease (20 sources) H/O: varicose veins; Translations: [Personal history of other diseases of the circulatory system] Onset: 02-02-2023 02-02-2023 Episodic Other diseases of kidney and ureters (20 sources) Kidney disease; Translations: [Disorder of kidney and ureter, unspecified] Onset: 04-19-2022 02-02-2023 Episodic Other liver diseases (20 sources) Alkaline phosphatase raised; Translations: [Abnormal levels of other serum enzymes] Onset: 09-15-2023 09-15-2023 Episodic Other lower respiratory disease (20 sources) Dyspnea on exertion; Translations: [Other forms of dyspnea] Onset: 04-27-2019 02-02-2023 Episodic Other lower respiratory disease (20 sources) Chronic cough; Translations: [Chronic cough] Onset: 02-02-2023 02-02-2023 Episodic Other lower respiratory disease (2 sources) Shortness of breath; Translations: [Shortness of breath] Onset: 08-18-2023 Episodic Other nervous system disorders (20 sources) Neuropathy; Translations: [Polyneuropathy, unspecified] Onset: 02-02-2023 Resolved: 01-16-2024 02-02-2023 Chronic Other nutritional; endocrine; and metabolic disorders (8 sources) Obesity caused by energy imbalance; Translations: [Morbid (severe) obesity due to excess calories] Onset: 04-17-2024 Resolved: 04-17-2024 04-17-2024 Chronic Other screening for suspected conditions (not mental disorders or infectious disease) (20 sources) Patient encounter status; Translations: [Encounter for screening for other disorder] Onset: 02-02-2023 Resolved: 10-20-2023 10-15-2022 Episodic Other upper respiratory infections (20 sources) Sinusitis; Translations: [Chronic sinusitis, unspecified] Onset: 02-02-2023 Resolved: 03-24-2023 03-24-2023 Chronic Other upper respiratory infections (20 sources) Acute sinusitis; Translations: [Other acute sinusitis] Onset: 04-05-2023 04-05-2023 Episodic Phlebitis; thrombophlebitis and thromboembolism (20 sources) H/O: Deep vein thrombosis; Translations: [Personal history of other venous thrombosis and embolism] Onset: 04-27-2019 02-02-2023 Episodic Pneumonia (except that caused by tuberculosis or sexually transmitted disease) (20 sources) Pneumonia; Translations: [Pneumonia, unspecified organism] Onset: 02-02-2023 Resolved: 03-24-2023 03-24-2023 Episodic Residual codes; unclassified (20 sources) Tobacco user; Translations: [Tobacco use] Onset: 04-19-2022 03-24-2023 Episodic Residual codes; unclassified (20 sources) Family history of malignant neoplasm of lung; Translations: [Family history of malignant neoplasm of trachea, bronchus and lung] Onset: 02-02-2023 02-02-2023 Episodic Residual codes; unclassified (20 sources) Bilateral lower limb edema; Translations: [Localized edema] Onset: 06-23-2023 06-23-2023 Episodic Residual codes; unclassified (2 sources) Localized edema; Translations: [Localized edema] Onset: 08-18-2023 Episodic Skin and subcutaneous tissue infections (20 sources) Abscess; Translations: [Cutaneous abscess, unspecified] Onset: 07-22-2023 Resolved: 10-20-2023 10-20-2023 Episodic Spondylosis; intervertebral disc disorders; other back problems (20 sources) Chronic back pain ; Translations: [Dorsalgia, unspecified] Onset: 02-02-2023 02-02-2023 Episodic Substance-related disorders (20 sources) Smoker; Translations: [Nicotine dependence, unspecified, uncomplicated] Onset: 04-19-2022 Resolved: 03-24-2023 10-09-2020 Chronic Comment on above: Added secondary to d ocumentation in Social History. Unclassified (6 sources) Rupture of right Achilles tendon 01-30-2024 Results Test Name Value Interpretation Reference Range Facility CBC AND AUTO DIFFon 20 25 ABSOLUTE BASOPHIL 0.1 X10E9/L Normal 0.0-0.2 [facility] Comment on above: Performed By: #### C BCA #### [facility] ([id number]) [address], [address] [place] [address] ABSOLUTE NEUTROPHIL 7.2 X10E9/L High 1.5-6.6 [facility] Comment on above: Performed By: #### C BCA #### [facility] ([id number]) [address], [address] [place] [address] Basophils/100 WBC (Bld) 0.9 % Normal [facility] Comment on above: Performed By: #### C BCA #### [facility] ([id number]) [address], [address] [place] [address] Eosinophils (Bld) [#/Vol] 0.2 10*3/uL Normal 0.0-0.4 [facility] Comment on above: Performed By: #### C BCA #### [facility] ([id number]) [address], [address] [place] [address] Eosinophils/100 WBC (Bld) 1.6 % Normal [facility] Comment on above: Performed By: #### C BCA #### [facility] ([id number]) [address], [address] [place] [address] Erythrocyte distribution width (RBC) [Ratio] 16.2 % High 11.5-15.0 [facility] Comment on above: Performed By: #### C BCA #### [facility] ([id number]) [address], [address] [place] [address] Hematocrit (Bld) [Volume fraction] 42.6 % Normal 35-47 [facility] Comment on above: Performed By: #### C BCA #### [facility] ([id number]) [address] [address] [place] [address] Hemoglobin (Bld) [Mass/Vol] 14.2 g/dL Normal 11.7-15.5 [facility] Comment on above: Performed By: #### C BCA #### [facility] ([id number]) [address], [address] [place] [address] Lymphocytes (Bld) [#/Vol] 2.3 10*3/uL Normal 1.0-3.5 [facility] Comment on above: Performed By: #### C BCA #### [facility] ([id number]) [address] [place] [address] Lymphocytes/100 WBC (Bld) 22.1 % Normal [facility] Comment on above: Performed By: #### C BCA #### [facility] ([id number]) [address], [address] [place] [address] MCH (RBC) [Entitic mass] 30.1 pg Normal 27-34 [facility] Comment on above: Performed By: #### C BCA #### [facility] ([id number]) [address] [place] [address] MCHC (RBC) [Mass/Vol] 33.4 g/dL Normal 32-36 [facility] Comment on above: Performed By: #### C BCA #### [facility] ([id number]) [address], [address] [place] [address] MCV (RBC) [Entitic vol] 90 fL Normal 80-100 [facility] Comment on above: Performed By: #### C BCA #### [facility] ([id number]) [address] [place] [address] Monocytes (Bld) [#/Vol] 0.8 10*3/uL Normal 0-0.9 [facility] Comment on above: Performed By: #### C BCA #### [facility] ([id number]) [address], [address] [place] [address] Monocytes/100 WBC (Bld) 7.2 % Normal [facility] Comment on above: Performed By: #### C BCA #### [facility] ([id number]) [address], [address] [place] [address] Neutrophils/100 WBC (Bld) 68.2 % Normal [facility] Comment on above: Performed By: #### C BCA #### [facility] ([id number]) [address], [address] [place] [address] Platelet mean volume (Bld) [Entitic vol] 9.7 fL Normal 7-12 [facility] Comment on above: Performed By: #### C BCA #### [facility] ([id number]) [address] [address] Platelets (Bld) [#/Vol] 207 10*3/uL Normal 150-450 [facility] Comment on above: Performed By: #### C BCA #### [facility] ([id number]) [address] [address] RBC COUNT 4.72 X10E12/L Normal 3.80-5.20 [facility] Comment on above: Performed By: #### C BCA #### [facility] ([id number]) [address] [address] WBC (Bld) [#/Vol] 10.6 10*3/uL Normal 4.0-11.0 [facility] Comment on above: Performed By: #### C BCA #### [facility] ([id number]) [address] [address] CBC W Auto Differential pane l (Bld)on 04-30-2024 ABSOLUTE BASOPHIL 0.1 [facility] Comment on above: PERFORMED AT [facility] [address] [place] [address],[place] [address] Basophils/100 WBC (Bld) 0.9 % [facility] Eosinophils (Bld) [#/Vol] 0.2 10*3/uL [facility] Eosinophils/100 WBC (Bld) 1.6 % [facility] Erythrocyte distribution width (RBC) [Ratio] 16.2 % High 11.5 - 15.0 % [facility] Hematocrit (Bld) [Volume fraction] 42.6 % 35 - 47 % [facility] Hemoglobin (Bld) [Mass/Vol] 14.2 g/dL 11.7 - 15.5 g/dL [facility] Interpretation and review of laboratory results Abnormal [facility] Lymphocytes (Bld) [#/Vol] 2.3 10*3/uL [facility] Lymphocytes/100 WBC (Bld) 22.1 % [facility] MCH (RBC) [Entitic mass] 30.1 pg 27 - 34 pg [facility] MCHC (RBC) [Mass/Vol] 33.4 g/dL 32 - 3 6 g/dL [facility] MCV (RBC) [Entitic vol] 90 fL 80 - 100 fL [facility] Monocytes (Bld) [#/Vol] 0.8 10*3/uL [facility] Monocytes/100 WBC (Bld) 7.2 % [facility] Neutrophils (Bld) [#/Vol] 7.2 10*3/uL High [facility] Neutrophils/100 WBC (Bld) 68.2 % [facility] Platelet mean volume (Bld) [Entitic vol] 9.7 fL 7 - 12 fL [facility] Platelets (Bld) [#/Vol] 207 10*3/uL [facility] RBC (Bld) [#/Vol] 4.72 10*6/uL [facility] WBC corrected for nucl RBC Auto (Bld) [#/Vol] 10.6 [facility] COMPREHENSIVE METABOLIC PANE Philipp 04-30-2024 Albumin [Mass/Vol] 3.8 g/dL Normal 3.2-5.3 [facility] Comment on above: Performed By: #### C MP #### [facility] ([id number]) [address], [address] [place] [address] ALP [Catalytic activity/Vol] 137 U/L High 39-130 [facility] Comment on above: Performed By: #### C MP #### [facility] ([id number]) [address] [place] [address] ALT [Catalytic activity/Vol] 16 U/L Normal 0-31 [facility] Comment on above: Performed By: #### C MP #### [facility] ([id number]) [address] [place] [address] Anion gap [Moles/Vol] 7 mmol/L Normal 5-15 [facility] Comment on above: Performed By: #### C MP #### [facility] ([id number]) [address] [place] [address] AST [Catalytic activity/Vol] 12 U/L Normal 0-41 [facility] Comment on above: Performed By: #### C MP #### [facility] ([id number]) [address] [place] [address] Bilirubin [Mass/Vol] 0.3 mg/dL Normal 0.3-1.2 [facility] Comment on above: Performed By: #### C MP #### [facility] ([id number]) [address], [address] [place] [address] Calcium [Mass/Vol] 9.0 mg/dL Normal 8.5-10.5 [facility] Comment on above: Performed By: #### C MP #### [facility] ([id number]) [address] [place] [address] Chloride [Moles/Vol] 103 mmol/L Normal 98-109 [facility] Comment on above: Performed By: #### C MP #### [facility] ([id number]) [address] [place] [address] CO2 [Moles/Vol] 28 mmol/L Normal 22-32 [facility] Comment on above: Performed By: #### C MP #### [facility] ([id number]) [address] [place] [address] Creatinine [Mass/Vol] 1.26 mg/dL High 0.40-1.00 [facility] Comment on above: Result Comment: METH OD TRACEABLE TO IDMS STANDARD Performed By: #### C MP #### [facility] ([id number]) [address] [place] [address] GFR/1.73 sq M.predicted among non-blacks MDRD (S/P/Bld) [Vol rate/Area] 49 mL/min/{1.73_m2} Low >59 [facility] Comment on above: Result Comment: Reported eGFR is based on the CKD-EPI 2020 equation that does not use a race coefficient. Performed By: #### C MP #### [facility] ([id number]) [address] [place] [address] Glucose [Mass/Vol] 88 mg/dL Normal 65-99 [facility] Comment on above: Performed By: #### C MP #### [facility] ([id number]) [address] [address] [place] [address] Potassium [Moles/Vol] 4.7 mmol/L Normal 3.5-5.0 [facility] Comment on above: Performed By: #### C MP #### [facility] ([id number]) [address] [address] [place] [address] Protein [Mass/Vol] 6.9 g/dL Normal 6.0-8.0 [facility] Comment on above: Performed By: #### C MP #### [facility] ([id number]) [address] [place] [address] Sodium [Moles/Vol] 138 mmol/L Normal 134-146 [facility] Comment on above: Performed By: #### C MP #### [facility] ([id number]) [address] [address] [place] [address] Urea nitrogen [Mass/Vol] 18 mg/dL Normal 5-23 [facility] Comment on above: Performed By: #### C MP #### [facility] ([id number]) [address] [address] [place] [address] Office Visiton 04-27-2024 Follow-up visit [id number] Sarah Ellis 1965 F Date Provider Department Center 04/27/2024 MALIK CLAUDIO [facility] Family History Problem Relation Age of Onset Diabetes Mother Heart attack Mother Other Mother Coronary artery disease Mother Diabetes Father Coronary artery disease Father Heart attack Maternal Grandfather Family Status - Relation Status Age at Mother Father Maternal Grandfather Level of Service:[address]142 [place] OFFICE/OUTPATIENT ESTABLISHED MOD MDM 30 MIN Normal [facility] HbA1c (Bld) [Mass fraction]o n 04-17-2024 Interpretation and review of laboratory results Abnormal [facility] Hematology [facility] Cell countson 04-17-2024 HbA1c (Bld) [Mass fraction] 7.40 % [facility] XR Knee - right 1 or 2 Views on 02-27-2024 Imaging Result: 02/27/2024: X-rays AP and lateral of right knee showed varus deformity with medial joint space. There is flattening of the articular surfaces medially to the tibia plateau and femoral condyle. There is marginal osteophytic formation and subchondral sclerosis noted medially and the patellofemoral joint. There is no evidence of fracture or dislocation. Bony structures viewed showed appropriate ossification Impression: Osteoarthritis of the right knee with varus alignment Dori Wesley [employer] [facility] Study observation (narrative) [facility] MR KNEE RIGHT WO IV CONTRAST on 02-21-2024 MR KNEE RIGHT WO IV CONTRAST Exam: MR KNEE RIGHT WO IV CONTRAST History: Knee pain Technique: Multiplanar multisequence MRI of the knee was performed without contrast. Comparison: MRI December 21, 2017 Findings: The examination is significantly degraded secondary to motion artifact. Quadriceps and patellar tendons are intact. Small joint effusion. Anterior and posterior cruciate ligaments are intact. No definitive tear of the medial collateral ligament. Edema is present along the medial collateral ligament. The lateral collateral ligament and popliteus appear intact. There appears to be complex tearing of the body through posterior horn of the medial meniscus. There appears to be complex tearing of the body through anterior horn of the lateral meniscus. These findings are incompletely evaluated secondary to motion degradation. Evaluation of the articular cartilage is precluded secondary to motion artifact. Suspect full-thickness cartilage defects of the patella given subcortical foci of bone marrow edema. Bone marrow edema of the medial femoral condyle and medial tibial plateau also likely secondary to full-thickness cartilage defects. Popliteal fossa structures are intact. No Junior cyst. IMPRESSION: Suspect complex tearing of the body through posterior horn of the medial meniscus and body through anterior horn of the lateral meniscus. Edema along the medial collateral ligament may be reactive to of the medial meniscus tear or due to MCL sprain. ELECTRONICALLY SIGNED BY: Lex Feng DO Normal Not Available MR ANKLE RIGHT WO IV CONTRAS Ton 02-09-2024 MR ANKLE RIGHT WO IV CONTRAST EXAM/TECHNIQUE: MR ANKLE RIGHT WO IV CONTRAST HISTORY: Posterior ankle pain after climbing stairs 3 months ago. Concern for Achilles tendon injury. COMPARISON: Radiographs 11/19/2023. RESULT: Limitations from motion. Cartilage: Mild degenerative changes involving the tibiotalar joint. Mild degenerative changes of the subtalar joint. Degenerative changes in the partially imaged midfoot. Ligaments: Distal tibiofibular limits appear grossly intact. Anterior talofibular ligament appears grossly intact with mild thickening, probably sequela from remote injury. Calcaneofibular ligament and posterior talofibular ligament appear grossly intact. Deltoid ligament and spring ligament grossly intact. Tendons: Severe Achilles tendinosis with diffuse thickening and fairly extensive increased interstitial signal throughout the tendon otherwise appears intact. Enthesophyte at the Achilles insertion. Extensor tendons appear grossly intact. Medial flexor tendons appear grossly intact with fluid at the knot of Eugenio which may be tenosynovitis or physiologic. There appears to be split type tearing involving peroneus brevis in the retromalleolar groove, without significant tendon retraction. Peroneus longus appears intact. Joint Fluid: Physiologic quantity of joint fluid. Bone Marrow: Within limits of motion, no evidence for fracture, marrow replacing process, or osteomyelitis. Areas of probably reactive/degenerative edema signal. Plantar Aponeurosis: Mild thickening at origin, without tear. Sinus Tarsi: Sinus tarsi is within normal limits. Muscle: Mild diffuse fatty infiltration/atrophy. Tarsal Tunnel: Tarsal tunnel is within normal limits. Other: Diffuse subcutaneous edema. IMPRESSION: Severe Achilles tendinosis with diffuse thickening and areas of increased interstitial signal/tearing, otherwise appears intact. Apparent split type tearing involving peroneus brevis. Degenerative changes as discussed. Possible tenosynovitis at the knot of Eugenio. ELECTRONICALLY SIGNED BY: Royal Machado MD Normal Not Available HbA1c (Bld) [Mass fraction]o n 01-16-2024 Interpretation and review of laboratory results Abnormal [facility] 01-16-2024 HbA1c (Bld) [Mass fraction] 8.30 % [facility] No Panel Informationon 12-19 Lisette Cummins, DO 12/20/2023 12:08 PM L Inj/Asp: R knee on 12/20/2023 11:50 AM Indications: pain Details: 21 G needle, anterolateral approach Medications: 40 mg methylPREDNISolone acetate 40 MG/ML Outcome: tolerated well, no immediate complications Procedure, treatment alternatives, risks and benefits explained, specific risks discussed. Consent was given by the patient. [facility] BASIC METABOLIC PANELon 09-22 Anion gap [Moles/Vol] 11 mmol/L Normal 7-20 [facility] Comment on above: Performed By: #### L [id number] #### [facility] ([facility]ER) [address] [place] [address] Calcium [Mass/Vol] 8.8 mg/dL Normal 8.6-10.3 [facility] Comment on above: Performed By: #### L [id number] #### [facility] (BEAKER) [address] [place] [address] Chloride [Moles/Vol] 103 mmol/L Normal 98-[address] [facility] Comment on above: Performed By: #### L [id number] #### [facility] (BEAKER) [address] [place] [address] CO2 [Moles/Vol] 28 mmol/L Normal 21-31 [facility] Comment on above: Performed By: #### L [id number] #### [facility] (BEAKER) [address] [place] [address] Creatinine [Mass/Vol] 1.17 mg/dL Normal 0.60-1.20 [facility] Comment on above: Performed By: #### L [id number] #### [facility] (BEAKER) [address] [place] [address] GLOMERULAR FILTRATION RATE ML/MIN/1.73 SQ M.PREDICTED 54.4 mL/min/1.73m*2 Low >60.0 [facility] Comment on above: Result Comment: [facility]???s estimated glomerular filtration rate (eGFR) will no [...] group of individuals. Performed By: #### L [id number] #### [facility] ([facility]) [address] [place] [address] Glucose [Mass/Vol] 169 mg/dL High 70-100 [facility] Comment on above: Performed By: #### L [id number] #### [facility] ([facility]) [address] [place] [address] Potassium [Moles/Vol] 4.4 mmol/L Normal 3.5-5.1 [facility] Comment on above: Performed By: #### L [id number] #### [facility] ([facility]) [address] [place] [address] Sodium [Moles/Vol] 138 mmol/L Normal 136-145 [facility] Comment on above: Performed By: #### L [id number] #### [facility] ([facility]) [address] [place] [address] Urea nitrogen [Mass/Vol] 24 mg/dL Normal 7-25 [facility] Comment on above: Performed By: #### L [id number] #### [facility] ([facility]) [address] [place] [address] UREA NITROGEN/CREATININE (MASS RATIO) IN SER/PLAS 20.5 Normal [facility] Comment on above: Performed By: #### L [id number] #### [facility] ([facility]) [address] [place] [address] CBC WITH AUTO DIFFERENTIALon 10-19-2023 Basophils (Bld) [#/Vol] 0.09 10*3/uL Normal 0.00-0.20 [facility] Comment on above: Performed By: #### L [id number] #### [facility] (BEAKER) [address] [place] [address] Basophils/100 WBC (Bld) 0.8 % Normal 0.0-1.0 [facility] Comment on above: Performed By: #### L [id number] #### [facility] ([facility]) [address] [place] [address] Eosinophils (Bld) [#/Vol] 0.25 10*3/uL Normal 0.00-0.50 [facility] Comment on above: Performed By: #### L [id number] #### [facility] [address] [place] [address] Eosinophils/100 WBC (Bld) 2.2 % Normal 0.0-6.0 [facility] Comment on above: Performed By: #### L [id number] #### [facility] ([facility]) [address] [place] [address] Erythrocyte distribution width (RBC) [Ratio] 14.6 % Normal 11.5-15.0 [facility] Comment on above: Performed By: #### L [id number] #### [facility] ([facility]) [address] [place] [address] ERYTHROCYTE MEAN CORPUSCULAR HEMOGLOBIN CONCENTRATION (G/DL) BY AUTOMATED 32.1 g/dL Normal 32.0-35.0 [facility] Comment on above: Performed By: #### L [id number] #### [facility] ([facility]) [address] [place] [address] Hematocrit (Bld) [Volume fraction] 44.2 % Normal 36.0-48.0 [facility] Comment on above: Performed By: #### L [id number] #### [facility] (BEAKER) [address] [place] [address] Hemoglobin (Bld) [Mass/Vol] 14.2 g/dL Normal 12.0-15.0 [facility] Comment on above: Performed By: #### L [id number] #### [facility] [address] [place] [address] Immature granulocytes (Bld) [#/Vol] 0.15 10*3/uL Normal 0.00-0.20 [facility] Comment on above: Performed By: #### L [id number] #### [facility] ([facility]) [address] [place] [address] Immature granulocytes/100 WBC (Bld) 1.3 % High 0.0-1.0 [facility] Comment on above: Performed By: #### L [id number] #### [facility] ([facility]) [address] [address] Lymphocytes (Bld) [#/Vol] 2.65 10*3/uL Normal 1.20-4.00 [facility] Comment on above: Performed By: #### L [id number] #### [facility] ([facility]) [address] [place] [address] Lymphocytes/100 WBC (Bld) 22.8 % Normal 20.0-45.0 [facility] Comment on above: Performed By: #### L [id number] #### [facility] [address] [place] [address] MCH (RBC) [Entitic mass] 30.3 pg Normal 27.0-33.0 [facility] Comment on above: Performed By: #### L [id number] #### [facility] (BEAKER) [address] [place] [address] MCV (RBC) [Entitic vol] 94.4 fL Normal 82.0-98.0 [facility] Comment on above: Performed By: #### L [id number] #### [facility] ([facility]AKER) [address] [place] [address] Monocytes (Bld) [#/Vol] 0.79 10*3/uL Normal 0.10-1.00 [facility] Comment on above: Performed By: #### L [id number] #### [facility] [address] [place] [address] Monocytes/100 WBC (Bld) 6.8 % Normal 5.0-12.0 [facility] Comment on above: Performed By: #### L [id number] #### [facility] ([facility]) [address] [place] [address] Neutrophils (Bld) [#/Vol] 7.67 10*3/uL High 1.60-7.60 [facility] Comment on above: Performed By: #### L [id number] #### [facility] ([facility]) [address] [place] [address] Neutrophils/100 WBC (Bld) 66.1 % Normal 40.0-72.0 [facility] Comment on above: Performed By: #### L [id number] #### [facility] ([facility]) [address] [place] [address] NRBC (PER 100 WBCS) BY AUTOMATED COUNT 0.0 % Normal 0 [facility] Comment on above: Performed By: #### L [id number] #### [facility] ([facility]) [address] [place] [address] PLATELETS (10*3/UL) IN BLOOD AUTOMATED COUNT 190 10*3/uL Normal 150-400 [facility] Comment on above: Performed By: #### L [id number] #### [facility] ([facility]) [address] [place] [address] RBC (Bld) [#/Vol] 4.68 10*6/uL Normal 3.80-5.00 [facility] Comment on above: Performed By: #### L [id number] #### [facility] [address] [place] [address] WBC (Bld) [#/Vol] 11.60 10*3/uL High 4.00-10.[address] [facility] Comment on above: Performed By: #### L [id number] #### [facility] ([facility]) [address] [place] [address] on 10-19-2023 H&P reviewed. The pa kain was examined and there are no changes to the H&P. Discussed risks, benefits, and alternative therapies with the patient, she understands and willing to proceed with peripheral angiogram and possible intervention. Randy Lala MD PGY-7 Interventional Marketing Sales Consultant [facility] NURSNOTEon 10-19-2023 NURSNOTE RN educated pt on d/ c instructions. RN encouraged pt to voice any questions or concerns. Pt verbalizes no questions or concerns at this time. [facility] - [facility] Subjective Elmer Ellis is a 57 y.o. year old female patient being seen for follow up stress test, echo, and [place]'s. Denies chest pain and SOB, but c/o a lot of lightheadedness/dizziness lately. Denies syncope. Continues to have claudication. Patient Active Problem List Diagnosis Coronary atherosclerosis Dyspnea on exertion Factor V Leiden ([facility]/HCC) Hypertriglyceridemia History of deep vein thrombosis Intermittent claudication ([facility]/HCC) Tobacco dependence syndrome Smoker Renal mass Other [...] of both eyes (CMS/HCC) Diabetic neuropathy, painful ([facility]) Encounter for annual wellness visit [...] V [place]. At her prior visit with CARVING MACHINE OPERATOR Niyah Pop on 04/27/2019 she was complaining [...] Day BSA (more content not included)... Normal [facility] Office Visiton 09-21-2023 Follow-up visit [id number] Sraah Ellis 1965 F Date Provider Department Center 09/21/2023 MALIK CLAUDIO SRUTHI Matt Family History Problem Relation Age of Onset Diabetes Mother Heart attack Mother Other Mother Coronary artery disease Mother Diabetes Father Coronary artery disease Father Heart attack Maternal Grandfather Family Status - Relation Status Age at Mother Father Maternal Grandfather Level of Service:79826 [place] OFFICE/OUTPATIENT ESTABLISHED HIGH MDM 40 MIN Normal [facility] Office Visiton 08-18-2023 Follow-up visit [id number] Sarah Ellis 1965 F Date Provider Department Center 08/18/2023 MALIK CLAUDIO SRUTHI Matt Family History Problem Relation Age of Onset Diabetes Mother Heart attack Mother Other Mother Coronary artery disease Mother Diabetes Father Coronary artery disease Father Heart attack Maternal Grandfather Family Status - Relation Status Age at Mother Father Maternal Grandfather Level of Service:80930 [place] OFFICE/OUTPATIENT ESTABLISHED MOD MDM 30 MIN Normal [facility] Complete Blood Count Auto Di ffon 07-07-2023 Basophils (Bld) [#/Vol] 0.1 10*3/uL Normal 0.0-0.2 [facility] Comment on above: Result Comment: PERF ORMED BY: [facility] [address] [place] [address] PATHOLOGIST ACADEMIC ADVISOR YU ACOSTA M.D. Performed By: #### C BC, CMP, FE and TIBC, JAQUELINE, [id number] #### [address] #### METH, EPO #### [facility] , Basophils/100 WBC (Bld) 0.6 % Normal . [facility] Comment on above: Performed By: #### C BC, CMP, FE and TIBC, JAQUELINE, [id number] #### [address] #### METH, EPO #### [facility] , Eosinophils (Bld) [#/Vol] 0.2 10*3/uL Normal 0.0-0.45 [facility] Comment on above: Performed By: #### C BC, CMP, FE and TIBC, JAQUELINE, [id number] #### [place] [address] [place] #### METH, EPO #### [facility] , Eosinophils/100 WBC (Bld) 1.8 % Normal . [facility] Comment on above: Performed By: #### C BC, CMP, FE and TIBC, JAQUELINE, [id number] #### [address] #### METH, EPO #### [facility] , Erythrocyte distribution width (RBC) [Ratio] 14.8 % Normal 11.9-15.3 [facility] Comment on above: Performed By: #### C BC, CMP, FE and TIBC, JAQUELINE, [id number] #### [place] [address] [place] #### METH, EPO #### [facility] , Hematocrit (Bld) [Volume fraction] 43.6 % Normal 34.0-46.4 [facility] Comment on above: Performed By: #### C BC, CMP, FE and TIBC, JAQUELINE, [id number] #### [place] [address] [place] #### METH, EPO #### [facility] , Hemoglobin (Bld) [Mass/Vol] 14.4 g/dL Normal 11.8-15.4 [facility] Comment on above: Performed By: #### C BC, CMP, FE and TIBC, JAQUELINE, [id number] #### [place] [address] [place] #### METH, EPO #### [facility] , Lymphocytes (Bld) [#/Vol] 2.7 10*3/uL Normal 1.00-4.8 [facility] Comment on above: Performed By: #### C BC, CMP, FE and TIBC, JAQUELINE, [id number] #### [address] #### METH, EPO #### [facility] , Lymphocytes/100 WBC (Bld) 24.7 % Normal . [facility] Comment on above: Performed By: #### C BC, CMP, FE and TIBC, JAQUELINE, [id number] #### [place] [address] [place] #### METH, EPO #### [facility] , MCH (RBC) [Entitic mass] 30.5 pg Normal 24.7-34.3 [facility] Comment on above: Performed By: #### C BC, CMP, FE and TIBC, JAQUELINE, [id number] #### [place] [address] [place] #### METH, EPO #### [facility] , MCV (RBC) [Entitic vol] 92.1 fL Normal 80-100 [facility] Comment on above: Performed By: #### C BC, CMP, FE and TIBC, JAQUELINE, [id number] #### [place] [address] [place] #### METH, EPO #### [facility] , Mean Corpuscular HGB Conc 33.1 g/dL Normal 32.0-35.0 [facility] Comment on above: Performed By: #### C BC, CMP, FE and TIBC, JAQUELINE, [id number] #### [place] [address] [place] #### METH, EPO #### [facility] , Monocytes (Bld) [#/Vol] 0.6 10*3/uL Normal 0.0-0.8 [facility] Comment on above: Performed By: #### C BC, CMP, FE and TIBC, JAQUELINE, [id number] #### [place] [address] [place] #### METH, EPO #### [facility] , Monocytes/100 WBC (Bld) 5.3 % Normal . [facility] Comment on above: Performed By: #### C BC, CMP, FE and TIBC, JAQUELINE, [id number] #### [place] [address] [place] #### METH, EPO #### [facility] , Neutrophils (Bld) [#/Vol] 7.5 10*3/uL Normal 1.8-7.7 [facility] Comment on above: Performed By: #### C BC, CMP, FE and TIBC, JAQUELINE, [id number] #### [place] [address] [place] #### METH, EPO #### [facility] , Neutrophils/100 WBC (Bld) 67.6 % Normal . [facility] Comment on above: Performed By: #### C BC, CMP, FE and TIBC, JAQUELINE, [id number] #### [place] [address] [place] #### METH, EPO #### [facility] , NRBC% 0.1 /100{WBC} Normal 0-0.5 [facility] Comment on above: Performed By: #### C BC, CMP, FE and TIBC, JAQUELINE, [id number] #### [address] #### METH, EPO #### [facility] , Platelet mean volume (Bld) [Entitic vol] 9.7 fL Normal 6.3-10.7 [facility] Comment on above: Performed By: #### C BC, CMP, FE and TIBC, JAQUELINE, [id number] #### [place] [address] [place] #### METH, EPO #### [facility] , Platelets (Bld) [#/Vol] 169 10*3/uL Normal 150-450 [facility] Comment on above: Performed By: #### C BC, CMP, FE and TIBC, JAQUELINE, [id number] #### [address] #### METH, EPO #### [facility] , RBC (Bld) [#/Vol] 4.73 10*6/uL Normal 3.60-5.00 [facility] Comment on above: Performed By: #### C BC, CMP, FE and TIBC, JAQUELINE, [id number] #### [place] [address] [place] #### METH, EPO #### [facility] , WBC (Bld) [#/Vol] 11.0 10*3/uL Normal 3.8-11.6 [facility] Comment on above: Performed By: #### C BC, CMP, FE and TIBC, JAQUELINE, [id number] #### [place] [address] [place] #### METH, EPO #### [facility] , Comprehensive Metabolic Pane philipp 07-07-2023 Albumin [Mass/Vol] 3.8 g/dL Normal 3.5-5.7 [facility] Comment on above: Performed By: #### C BC, CMP, FE and TIBC, JAQUELINE, [id number] #### [address] #### METH, EPO #### [facility] , Albumin/Globulin [Mass ratio] 1.4 {ratio} Normal [facility] Comment on above: Performed By: #### C BC, CMP, FE and TIBC, JAQUELINE, [id number] #### [place] [address] [place] #### METH, EPO #### [facility] , ALP [Catalytic activity/Vol] 167 U/L High 34-104 [facility] Comment on above: Performed By: #### C BC, CMP, FE and TIBC, JAQUELINE, [id number] #### [place] [address] [place] #### METH, EPO #### [facility] , ALT [Catalytic activity/Vol] 21 U/L Normal 7-52 [facility] Comment on above: Performed By: #### C BC, CMP, FE and TIBC, JAQUELINE, [id number] #### [address] #### METH, EPO #### [facility] , Anion gap [Moles/Vol] 13.5 mmol/L Normal 6.0-15.0 [facility] Comment on above: Performed By: #### C BC, CMP, FE and TIBC, JAQUELINE, [id number] #### [place] [address] [place] #### METH, EPO #### [facility] , AST [Catalytic activity/Vol] 15 U/L Normal 13-39 [facility] Comment on above: Performed By: #### C BC, CMP, FE and TIBC, JAQUELINE, [id number] #### [place] [address] [place] #### METH, EPO #### [facility] , Bilirubin [Mass/Vol] 0.4 mg/dL Normal 0.3-1.0 [facility] Comment on above: Performed By: #### C BC, CMP, FE and TIBC, JAQUELINE, [id number] #### [place] [address] [place] #### METH, EPO #### [facility] , Calcium [Mass/Vol] 8.6 mg/dL Normal 8.6-10.3 [facility] Comment on above: Performed By: #### C BC, CMP, FE and TIBC, JAQUELINE, [id number] #### [place] [address] [place] #### METH, EPO #### [facility] , Chloride [Moles/Vol] 102 mmol/L Normal 98-107 [facility] Comment on above: Performed By: #### C BC, CMP, FE and TIBC, JAQUELINE, [id number] #### [place] [address] [place] #### METH, EPO #### [facility] , CO2 [Moles/Vol] 26.8 mmol/L Normal 21.0-31.0 [facility] Comment on above: Performed By: #### C BC, CMP, FE and TIBC, JAQUELINE, [id number] #### [place] [address] [place] #### METH, EPO #### [facility] , Creatinine [Mass/Vol] 1.18 mg/dL Normal 0.60-1.20 [facility] Comment on above: Performed By: #### C BC, CMP, FE and TIBC, JAQUELINE, [id number] #### [place] [address] [place] #### METH, EPO #### [facility] , Creatinine Clr Calc Pharmacy 65.67 Normal [facility] Comment on above: Performed By: #### C BC, CMP, FE and TIBC, JAQUELINE, [id number] #### [place] [address] [place] #### METH, EPO #### [facility] , GFR/1.73 sq M.predicted MDRD (S/P/Bld) [Vol rate/Area] 53.873 mL/min/{1.73_m2} Normal [facility] Comment on above: Performed By: #### C BC, CMP, FE and TIBC, JAQUELINE, [id number] #### [place] [address] [place] #### METH, EPO #### [facility] , Globulin (S) [Mass/Vol] 2.8 g/dL Normal [facility] Comment on above: Performed By: #### C BC, CMP, FE and TIBC, JAQUELINE, [id number] #### [place] [address] [place] #### METH, EPO #### [facility] , Glucose [Mass/Vol] 215 mg/dL High 70-100 [facility] Comment on above: Result Comment: [place] Glucose Reference Range is dependent on time and content of last meal. Glucose of more than 200 mg/dL in a nonstressed, ambulatory subject supports the diagnosis of Diabetes Mellitus. ADA recommended reference range Performed By: #### C BC, CMP, FE and TIBC, JAQUELINE, [id number] #### [place] [address] [place] #### METH, EPO #### [facility] , Potassium [Moles/Vol] 4.3 mmol/L Normal 3.5-5.1 [facility] Comment on above: Performed By: #### C BC, CMP, FE and TIBC, JAQUELINE, [id number] #### [facility] [address] [place] [address] [place] #### METH, EPO #### [facility] , Protein [Mass/Vol] 6.6 g/dL Normal 6.4-8.9 [facility] Comment on above: Performed By: #### C BC, CMP, FE and TIBC, JAQUELINE, [id number] #### [place] [address] [place] #### METH, EPO #### [facility] , Sodium [Moles/Vol] 138 mmol/L Normal 136-145 [facility] Comment on above: Performed By: #### C BC, CMP, FE and TIBC, JAQUELINE, [id number] #### [place] [address] [place] #### METH, EPO #### [facility] , Urea nitrogen [Mass/Vol] 21 mg/dL Normal 7-25 [facility] Comment on above: Performed By: #### C BC, CMP, FE and TIBC, JAQUELINE, [id number] #### [place] [address] [place] #### METH, EPO #### [facility] , Erythropoetin (EPO), Serumon 07-07-2023 Erythropoetin (EPO), Serum 23.3 m[iU]/mL High 2.6-18.5 [facility] Comment on above: Result Comment: [employer] DxI 800 Immunoassay System Values obtained with different assay methods or kits cannot be used interchangeably. Results cannot be interpreted as absolute evidence of the presence or absence of malignant disease. Performed at: [address] [id number] Poultry Cleaner: Hieu Willams PhD, Phone: [phone] PERFORMED BY: [place] [address] PATHOLOGIST ACADEMIC ADVISOR YU ACOSTA M.D. Performed By: #### C BC, CMP, FE and TIBC, JAQUELINE, [id number] #### [place] [address] [place] #### METH, EPO #### [facility] , Ferritinon 07-07-2023 Ferritin [Mass/Vol] 154.7 ng/mL Normal 11.0-306.8 [facility] Comment on above: Performed By: #### C BC, CMP, FE and TIBC, JAQUELINE, [id number] #### [place] [address] [place] #### METH, EPO #### [facility] , Iron and TIBC Profileon 06-21 % Iron Saturation 33.9 % Normal 20-50 [facility] Comment on above: Performed By: #### C BC, CMP, FE and TIBC, JAQUELINE, [id number] #### [place] [address] [place] #### METH, EPO #### [facility] , Iron [Mass/Vol] 84 ug/dL Normal 50-212 [facility] Comment on above: Performed By: #### C BC, CMP, FE and TIBC, JAQUELINE, [id number] #### [place] [address] [place] #### METH, EPO #### [facility] , Total Iron Binding Capacity 248 ug/dL Low 255-450 [facility] Comment on above: Performed By: #### C BC, CMP, FE and TIBC, JAQUELINE, [id number] #### [place] [address] [place] #### METH, EPO #### [facility] , Transferrin [Mass/Vol] 177 mg/dL Low 203-362 [facility] Comment on above: Performed By: #### C BC, CMP, FE and TIBC, JAQUELINE, [id number] #### [place] [address] [place] #### METH, EPO #### [facility] , Methylmalonic Acidon 024 Methylmalonic Acid 202 Normal 0-378 [facility] Comment on above: Result Comment: This test was developed and its performance characteristics determined by [facility]. It has not been cleared or approved by the Food and Drug Administration. Performed at: [address] [id number] Poultry Cleaner: Amara Coyne MD, Phone: [phone] Performed By: #### C BC, CMP, FE and TIBC, JAQUELINE, [id number] #### [place] [address] [place] #### METH, EPO #### [facility] , Vit. B12/Folate Profileon Cobalamin (Vitamin B12) [Mass/Vol] 493 pg/mL Normal 180-914 [facility] Comment on above: Performed By: #### C BC, CMP, FE and TIBC, JAQUELINE, [id number] #### [address] #### METH, EPO #### [facility] , Folate 30.0 ng/mL Normal >5.9 [facility] Comment on above: Result Comment: Sherry te reference range: >5.9 ng/ml The WHO technical consultation on folate and vitamin b12 deficiencies has determined that folate concentrations less than 4 ng/ml are considered deficient. PERFORMED BY: [place] [address] PATHOLOGIST ACADEMIC ADVISOR YU ACOSTA M.D. Performed By: #### C BC, CMP, FE and TIBC, JAQUELINE, [id number] #### [address] #### METH, EPO #### [facility] , CREATININE BLDon 05-17-2023 Creatinine [Mass/Vol] 1.19 mg/dL High 0.58-0.96 [facility] Comment on above: Order Comment: Speci men Type: BLOOD SPECIMEN Ordering Facility: [facility] Address: [address] [place] [address] Performed By: #### C RET1 #### [facility] CLIA [id number] [address] [place] [address] Creatinine and Glomerular filtration rate.predicted panel (S/P/Bld) 53 mL/min/1.73m??? Low >=60 [facility] Comment on above: Order Comment: Speci men Type: BLOOD SPECIMEN Ordering Facility: [facility] Address: [address] [place] [address] Result Comment: Terri mated Glomerular Filtration Rate [...] GFR. Performed By: #### C RET1 #### [facility] CLIA [id number] [address] [place] [id number] CREATININE BLDOrdered By: Shantelle Mock on 05-17-2023 Creatinine [Mass/Vol] 1.19 mg/dL High 0.58 - 0.96 mg/dL [facility] GFR/1.73 sq M.predicted among non-blacks MDRD (S/P/Bld) [Vol rate/Area] 53 mL/min/{1.73_m2} Low - PINF [facility] Comment on above: Estimated Glomerular Filtration Rate [...] Interpretation and review of laboratory results Abnormal [facility] CT KIDNEY WO/W IVCONon 05-16 CT KIDNEY WO/W IVCON * * *Final Report* * * DATE OF EXAM: May 17 2023 2:01PM [facility] 0546 - CT KIDNEY WO/W [...] or blastic osseous abnormality. Lower thorax: Unremarkable. Assistant Product Manager (topogram) images: No additional findings. IMPRESSION: [...] any questions regarding this interpretation, please call [phone]. If you are unable to reach us at the number above, please feel free to contact [facility] at [phone]. [id number] Normal [facility] CT Kidney WO and W [...] any questions regarding this interpretation, please call [phone]. If you are unable to reach us at the number above, please feel free to contact [facility] eRadiology at [phone]. DIVISION OF RADIOLOGY * * *Final Report* * * DATE OF EXAM: May 17 2023 2:01PM [facility] 0546 - CT KIDNEY WO/W [...] or blastic osseous abnormality. Lower thorax: Unremarkable. Assistant Product Manager (topogram) images: No additional findings. DIVISION OF RADIOLOGY Provider, [facility] 05/17/2023 * * *Final Report* * * DATE OF EXAM: May 17 2023 2:01PM [facility] 0546 - CT KIDNEY WO/W [...] or blastic osseous abnormality. Lower thorax: Unremarkable. Assistant Product Manager (topogram) images: No additional findings. IMPRESSION IMPRESSION: [...] any questions regarding this interpretation, please call [phone]. If you are unable to reach us at the number above, please feel free to contact [facility] eRadiology at [phone]. [facility] Radiology Study observation (narrative) [facility] CT Kidney WO and W contrast IVOrdered By: [facility]cf Provider on 05-17-2023 [facility] Osvaldo 04-28-2023 CORBY Telephone (HEMTSA) ELMER ELLIS ([id number]) 1965 F Date Time Provider Department 04/28/23 ANGIE MCCLELLAN During your visit today, we recorded the following information about you: Josie Leong RN 04/28/2023 12:16 PM Signed Please sign pended Cre for upcoming CT. Pt needs updated lab before CT can be done Thank You! Josie Leong RN Allergies As of Date: 04/28/2023 (No Known Allergies) Date Reviewed: 10/15/2022 Reviewed by: Angie Mcclellan APRN.WEB PROJECT MANAGER - Fully Assessed Reason for Visit: Orders [681] Primary Visit Diagnosis:Renal mass [N28.89] Order(s):CREATININE BLD [SQCRET] Order #: [id number] FUTURE Prescriptions as of 04/28/2023 - DULoxetine [...] by mouth twice daily. - MV with Czd-Zgeaxymc-Nugexq (CENTRUM SILVER) 0.4 mg-300 mcg- 250 mcg tab Take by mouth. - insulin 75/25 lispro protamine/lispro units/mL (HUMALOG MIX 75-25,U-100,INSULN) 100 units/mL susp as directed. - HYDROcodone-acetaminophen (NORCO) 5-325 mg per tablet hydrocodone 5 mg-acetaminophen 325 mg tablet TAKE 1 TO 2 TABLETS BY MOUTH EVERY DAY AT BEDTIME NEEDED - ggfitkow-rrd-qazs-FA-lutein (CENTRUM SILVER WOMEN) 8 mg iron-400 mcg-300 [...] (HCC) [D68.51] 04/19/2022 Coronary artery disease involving [place] heart *04/19/2022 Smoker [F17.200] 04/19/2022 Morbid obesity (HCC) [E66.01] 04/19/2022 Other specified disorders of kidney and ureter *04/19/2022 Encounter Status:Closed by ANGIE MCCLELLAN on 04/28/23 Normal [facility] A1C with Estimated Average G dwight 04-13-2023 Glucose [Mass/Vol] 189 mg/dL Normal [facility] Comment on above: Result Comment: PERF ORMED BY: [place] [address] PATHOLOGIST ACADEMIC ADVISOR YU ACOSTA M.D. Performed By: #### C BC, CMP, FE and TIBC, JAQUELINE, [id number] #### [address] #### METH, EPO #### [facility] , HbA1c (Bld) [Mass fraction] 8.2 % High 4.3-5.6 [facility] Comment on above: Result Comment: Incr eased risk for diabetes: 5.7 - 6.4 diabetes: >6.4 glycemic control for adults with diabetes: <7.0 Performed By: #### C BC, CMP, FE and TIBC, JAQUELINE, [id number] #### [place] [address] [place] #### METH, EPO #### [facility] , Alanine aminotransferase [En zymatic activity/volume] in Serum or PlasmaOrdered By: Lilly Christianson on 04-13-2023 ALT [Catalytic activity/Vol] 40 U/L Normal 7-52 [facility] Comment on above: Performed By: #### C BC, CMP, FE and TIBC, JAQUELINE, [id number] #### [facility] [address] [place] [address] [place] #### METH, EPO #### [facility] , Albumin [Mass/volume] in Ser um or Plasma by Bromocresol green (BCG) dye binding methoOrdered By: Lilly Christianson on 04-13-2023 Albumin BCG dye [Mass/Vol] 3.9 g/dL 3.5-5.7 [facility] Alkaline phosphatase [Enzyma tic activity/volume] in Serum or PlasmaOrdered By: Lilly Christianson on 04-13-2023 ALP [Catalytic activity/Vol] 182 U/L High 34-104 [facility] Comment on above: Performed By: #### C BC, CMP, FE and TIBC, JAQUELINE, [id number] #### [facility] [address] [place] [address] [place] #### METH, EPO #### [facility] , Aspartate aminotransferase [ Enzymatic activity/volume] in Serum or PlasmaOrdered By: Lilly Christianson on 04-13-2023 AST [Catalytic activity/Vol] 22 U/L Normal 13-39 [facility] Comment on above: Performed By: #### C BC, CMP, FE and TIBC, JAQUELINE, [id number] #### [facility] [address] [place] [address] [place] #### METH, EPO #### [facility] , Automated basophil %Ordered By: Lilly Christianson on 04-13-2023 Basophils/100 WBC (Bld) 0.9 % Normal . [facility] Comment on above: Performed By: #### C BC, CMP, FE and TIBC, JAQUELINE, [id number] #### [address] #### METH, EPO #### [facility] , Automated basophil countOrde red By: Lilly Christianson on 04-13-2023 Basophils (Bld) [#/Vol] 0.1 10*3/uL Normal 0.0-0.2 [facility] Comment on above: Result Comment: PERF ORMED BY: [place] [address] PATHOLOGIST ACADEMIC ADVISOR YU ACOSTA M.D. Performed By: #### C BC, CMP, FE and TIBC, JAQUELINE, [id number] #### [address] #### METH, EPO #### [facility] , Automated blood monocyte cou ntOrdered By: Lilly Christianson on 04-13-2023 Monocytes (Bld) [#/Vol] 0.8 10*3/uL Normal 0.0-0.8 [facility] Comment on above: Performed By: #### C BC, CMP, FE and TIBC, JAQUELINE, [id number] #### [address] #### METH, EPO #### [facility] , Automated eosinophil %Ordere d By: Lilly Christianson on 04-13-2023 Eosinophils/100 WBC (Bld) 2.9 % Normal . [facility] Comment on above: Performed By: #### C BC, CMP, FE and TIBC, JAQUELINE, [id number] #### [place] [address] [place] #### METH, EPO #### [facility] , Automated eosinophil countOr dered By: Lilly Christianson on 04-13-2023 Eosinophils (Bld) [#/Vol] 0.3 10*3/uL Normal 0.0-0.45 [facility] Comment on above: Performed By: #### C BC, CMP, FE and TIBC, JAQUELINE, [id number] #### [place] [address] [place] #### METH, EPO #### [facility] , Automated monocyte %Ordered By: Lilly Christianson on 04-13-2023 Monocytes/100 WBC (Bld) 7.4 % Normal . [facility] Comment on above: Performed By: #### C BC, CMP, FE and TIBC, JAQUELINE, [id number] #### [place] [address] [place] #### METH, EPO #### [facility] , Automated neutrophil %Ordere d By: Lilly Christianson on 04-13-2023 Neutrophils/100 WBC (Bld) 65.0 % Normal . [facility] Comment on above: Performed By: #### C BC, CMP, FE and TIBC, JAQUELINE, [id number] #### [place] [address] [place] #### METH, EPO #### [facility] , Bilirubin.total [Mass/volume ] in Serum or PlasmaOrdered By: Lilly Christianson on 04-13-2023 Bilirubin [Mass/Vol] 0.3 mg/dL Normal 0.3-1.0 [facility] Comment on above: Performed By: #### C BC, CMP, FE and TIBC, JAQUELINE, [id number] #### [place] [address] [place] #### METH, EPO #### [facility] , Calcium [Mass/volume] in Ser um or PlasmaOrdered By: Lilly Christianson on 04-13-2023 Calcium [Mass/Vol] 8.9 mg/dL Normal 8.6-10.3 [facility] Comment on above: Performed By: #### C BC, CMP, FE and TIBC, JAQUELINE, [id number] #### [place] [address] [place] #### METH, EPO #### [facility] , Carbon dioxide, total [Moles /volume] in Serum or PlasmaOrdered By: Lilly Christianson on 04-13-2023 CO2 [Moles/Vol] 30.8 mmol/L Normal 21.0-31.0 [facility] Comment on above: Performed By: #### C BC, CMP, FE and TIBC, JAQUELINE, [id number] #### [place] [address] [place] #### METH, EPO #### [facility] , Chloride [Moles/volume] in S jigar or PlasmaOrdered By: Lilly Christianson on 04-13-2023 Chloride [Moles/Vol] 100 mmol/L Normal 98-107 [facility] Comment on above: Performed By: #### C BC, CMP, FE and TIBC, JAQUELINE, [id number] #### [place] [address] [place] #### METH, EPO #### [facility] , Complete Blood Count Auto Di ffon 04-13-2023 Mean Corpuscular HGB Conc 33.1 g/dL Normal 32.0-35.0 [facility] Comment on above: Performed By: #### C BC, CMP, FE and TIBC, JAQUELINE, [id number] #### [place] [address] [place] #### METH, EPO #### [facility] , NRBC% 0.1 /100{WBC} Normal 0-0.5 [facility] Comment on above: Performed By: #### C BC, CMP, FE and TIBC, JAQUELINE, [id number] #### [place] [address] [place] #### METH, EPO #### [facility] , Comprehensive Metabolic Pane philipp 04-13-2023 Albumin [Mass/Vol] 3.9 g/dL Normal 3.5-5.7 [facility] Comment on above: Performed By: #### C BC, CMP, FE and TIBC, JAQUELINE, [id number] #### [place] [address] [place] #### METH, EPO #### [facility] , Creatinine Clr Calc Pharmacy 58.71 Normal [facility] Comment on above: Performed By: #### C BC, CMP, FE and TIBC, JAQUELINE, [id number] #### [place] [address] [place] #### METH, EPO #### [facility] , GFR/1.73 sq M.predicted MDRD (S/P/Bld) [Vol rate/Area] 47.091 mL/min/{1.73_m2} Normal [facility] Comment on above: Performed By: #### C BC, CMP, FE and TIBC, JAQUELINE, [id number] #### [place] [address] [place] #### METH, EPO #### [facility] , Creatinine [Mass/volume] in Serum or PlasmaOrdered By: Lilly Christianson on 04-13-2023 Creatinine [Mass/Vol] 1.32 mg/dL High 0.60-1.20 [facility] Comment on above: Performed By: #### C BC, CMP, FE and TIBC, JAQUELINE, [id number] #### [place] [address] [place] #### METH, EPO #### [facility] , Erythrocyte distribution wid th [Ratio] by Automated countOrdered By: Lilly Christianson on 04-13-2023 Erythrocyte distribution width (RBC) [Ratio] 15.6 % High 11.9-15.3 [facility] Comment on above: Performed By: #### C BC, CMP, FE and TIBC, JAQUELINE, [id number] #### [place] [address] [place] #### METH, EPO #### [facility] , Erythrocytes [#/volume] in B lood by Automated countOrdered By: Lilly Christianson on 04-13-2023 RBC (Bld) [#/Vol] 4.91 10*6/uL Normal 3.60-5.00 [facility] Comment on above: Performed By: #### C BC, CMP, FE and TIBC, JAQUELINE, [id number] #### [address] #### METH, EPO #### [facility] , Erythropoetin (EPO), Serumon 04-13-2023 Erythropoetin (EPO), Serum 29.5 m[iU]/mL High 2.6-18.5 [facility] Comment on above: Result Comment: GlycoVaxyn DxI 800 Immunoassay System Values obtained with different assay methods or kits cannot be used interchangeably. Results cannot be interpreted as absolute evidence of the presence or absence of malignant disease. Performed at: [facility] [id number] Poultry Cleaner: Hieu Willams PhD, Phone: [phone] PERFORMED BY: [place] [address] PATHOLOGIST ACADEMIC ADVISOR YU ACOSTA M.D. Performed By: #### C BC, CMP, FE and TIBC, JAQUELINE, [id number] #### [address] #### METH, EPO #### [facility] , Ferritin [Mass/volume] in Se rum or PlasmaOrdered By: Lilly Christianson on 04-13-2023 Ferritin [Mass/Vol] 102.5 ng/mL Normal 11.0-306.8 [facility] Comment on above: Performed By: #### C BC, CMP, FE and TIBC, JAQUELINE, [id number] #### [address] #### METH, EPO #### [facility] , Folate [Mass/volume] in Seru m or PlasmaOrdered By: Lilly Christianson on 04-13-2023 Folate [Mass/Vol] 4.7 ng/mL >5.9 [facility] Comment on above: Folate reference ran ge: >5.9 ng/mlThe WHO technical consultation on folate and vitamin [id number] has determined that folate concentrations lessthan 4 ng/ml are considered deficient. Glucose [Mass/volume] in Ser um or PlasmaOrdered By: Lilly Christianson on 04-13-2023 Glucose [Mass/Vol] 242 mg/dL High 70-100 [facility] Comment on above: ADA recommended refe rence rangeRandom Glucose Reference Range is dependent on time and content of last meal. Glucose of more than 200 mg/dL in a nonstressed, ambulatory subject supports the diagnosis of Diabetes Mellitus. Result Comment: [place] om Glucose Reference Range is dependent on time and content of last meal. Glucose of more than 200 mg/dL in a nonstressed, ambulatory subject supports the diagnosis of Diabetes Mellitus. ADA recommended reference range Performed By: #### C BC, CMP, FE and TIBC, JAQUELINE, [id number] #### [facility] [address] [place] [address] #### METH, EPO #### [facility] , Hematocrit [Volume Fraction] of Blood by Automated countOrdered By: Lilly Christianson on 04-13-2023 Hematocrit (Bld) [Volume fraction] 44.7 % Normal 34.0-46.4 [facility] Comment on above: Performed By: #### C BC, CMP, FE and TIBC, JAQUELINE, [id number] #### [facility] [address] [place] [address] [place] #### METH, EPO #### [facility] , Hemoglobin [Mass/volume] in BloodOrdered By: Lilly Christianson on 04-13-2023 Hemoglobin (Bld) [Mass/Vol] 14.8 g/dL Normal 11.8-15.4 [facility] Comment on above: Performed By: #### C BC, CMP, FE and TIBC, JAQUELINE, [id number] #### [facility] [address] [place] [address] [place] #### METH, EPO #### [facility] , Iron [Mass/volume] in Serum or PlasmaOrdered By: Lilly Christianson on 04-13-2023 Iron [Mass/Vol] 129 ug/dL Normal 50-212 [facility] Comment on above: Performed By: #### C BC, CMP, FE and TIBC, JAQUELINE, [id number] #### [place] [address] [place] #### METH, EPO #### [facility] , Iron and TIBC Profileon 03-25 % Iron Saturation 50.0 % Normal 20-50 [facility] Comment on above: Performed By: #### C BC, CMP, FE and TIBC, JAQUELINE, [id number] #### [place] [address] [place] #### METH, EPO #### [facility] , Total Iron Binding Capacity 258 ug/dL Normal 255-450 [facility] Comment on above: Performed By: #### C BC, CMP, FE and TIBC, JAQUELINE, [id number] #### [place] [address] [place] #### METH, EPO #### [facility] , Iron binding capacity [Mass/ volume] in Serum or PlasmaOrdered By: Lilly Christianson on 04-13-2023 Iron binding capacity [Mass/Vol] 258 ug/dL 255-450 [facility] Iron saturation [Mass Fracti on] in Serum or PlasmaOrdered By: Lilly Christianson on 04-13-2023 Iron saturation [Mass fraction] 50.0 % 20-50 [facility] Leukocytes [#/volume] correc nikki for nucleated erythrocytes in Blood by Automated counOrdered By: Lilly Christianson on 04-13-2023 WBC corrected for nucl RBC Auto (Bld) [#/Vol] 10.9 10*3/uL 3.8-11.6 [facility] Leukocytes [#/volume] in Blo od by Automated countOrdered By: Lilly Christianson on 04-13-2023 WBC (Bld) [#/Vol] 10.9 10*3/uL Normal 3.8-11.6 [facility] Comment on above: Performed By: #### C BC, CMP, FE and TIBC, JAQUELINE, [id number] #### [address] #### METH, EPO #### [facility] , Lymphocytes [#/volume] in Bl ood by Automated countOrdered By: Lilly Christianson on 04-13-2023 Lymphocytes (Bld) [#/Vol] 2.6 10*3/uL Normal 1.00-4.8 [facility] Comment on above: Performed By: #### C BC, CMP, FE and TIBC, JAQUELINE, [id number] #### [place] [address] [place] #### METH, EPO #### [facility] , Lymphocytes/100 leukocytes i n Blood by Automated countOrdered By: Lilly Christianson on 04-13-2023 Lymphocytes/100 WBC (Bld) 23.8 % Normal . [facility] Comment on above: Performed By: #### C BC, CMP, FE and TIBC, JAQUELINE, [id number] #### [place] [address] [place] #### METH, EPO #### [facility] , MCH [Entitic mass] by Automa nikki countOrdered By: Lilly Christianson on 04-13-2023 MCH (RBC) [Entitic mass] 30.1 pg Normal 24.7-34.3 [facility] Comment on above: Performed By: #### C BC, CMP, FE and TIBC, JAQUELINE, [id number] #### [address] #### METH, EPO #### [facility] , MCHC Auto (RBC) [Mass/Vol]Or dered By: Lilly Christianson on 04-13-2023 MCHC (RBC) [Mass/Vol] 33.1 g/dL 32.0-35.0 [facility] MCV [Entitic volume] by Auto mated countOrdered By: Lilly Christianson on 04-13-2023 MCV (RBC) [Entitic vol] 90.9 fL Normal 80-100 [facility] Comment on above: Performed By: #### C BC, CMP, FE and TIBC, JAQUELINE, [id number] #### [address] #### METH, EPO #### [facility] , Methylmalonic Acidon 024 Methylmalonic Acid 321 Normal 0-378 [facility] Comment on above: Result Comment: This test was developed and its performance characteristics determined by [employer]. It has not been cleared or approved by the Food and Drug Administration. Performed at: [address] [id number] Poultry Cleaner: Amara Coyne MD, Phone: [phone] Performed By: #### C BC, CMP, FE and TIBC, JAQUELINE, [id number] #### [place] [address] [place] #### METH, EPO #### [facility] , Neutrophils [#/volume] in Bl ood by Automated countOrdered By: Lilly Christianson on 04-13-2023 Neutrophils (Bld) [#/Vol] 7.1 10*3/uL Normal 1.8-7.7 [facility] Comment on above: Performed By: #### C BC, CMP, FE and TIBC, JAQUELINE, [id number] #### [address] #### METH, EPO #### [facility] , No Panel InformationOrdered By: Lilly Christianson on 04-13-2023 Estimated GFR (CKD-EPI) 47.091 mL/Min [facility] Creatinine Clearance (Chem 58.71 [facility] Nucleated erythrocytes [Pres ence] in Blood by Automated countOrdered By: Lilly Christianson on 04-13-2023 Nucleated RBC Auto Ql (Bld) 0.1 /100{WBC} 0-0.5 [facility] Platelet mean volume [Entiti c volume] in Blood by Automated countOrdered By: Lilly Christianson on 04-13-2023 Platelet mean volume (Bld) [Entitic vol] 9.4 fL Normal 6.3-10.7 [facility] Comment on above: Performed By: #### C BC, CMP, FE and TIBC, JAQUELINE, [id number] #### [place] [address] [place] #### METH, EPO #### [facility] , Platelets [#/volume] in Bloo d by Automated countOrdered By: Lilly Christianson on 04-13-2023 Platelets (Bld) [#/Vol] 187 10*3/uL Normal 150-450 [facility] Comment on above: Performed By: #### C BC, CMP, FE and TIBC, JAQUELINE, [id number] #### [facility] [address] [place] [address] [place] #### METH, EPO #### [facility] , Potassium [Moles/volume] in Serum or PlasmaOrdered By: Lilly Christianson on 04-13-2023 Potassium [Moles/Vol] 4.8 mmol/L Normal 3.5-5.1 [facility] Comment on above: Performed By: #### C BC, CMP, FE and TIBC, JAQUELINE, [id number] #### [place] [address] [place] #### METH, EPO #### [facility] , Protein [Mass/volume] in Ser um or PlasmaOrdered By: Lilly Christianson on 04-13-2023 Protein [Mass/Vol] 6.5 g/dL Normal 6.4-8.9 [facility] Comment on above: Performed By: #### C BC, CMP, FE and TIBC, JAQUELINE, [id number] #### [place] [address] [place] #### METH, EPO #### [facility] , Serum globulin measurement b y calculation (mass/volume)Ordered By: Lilly Christianson on 04-13-2023 Globulin (S) [Mass/Vol] 2.6 g/dL Normal [facility] Comment on above: Performed By: #### C BC, CMP, FE and TIBC, JAQUELINE, [id number] #### [address] #### METH, EPO #### [facility] , Serum or plasma albumin/glob ulin mass ratioOrdered By: Lilly Christianson on 04-13-2023 Albumin/Globulin [Mass ratio] 1.5 {ratio} [facility] Comment on above: Performed By: #### C BC, CMP, FE and TIBC, JAQUELINE, [id number] #### [place] [address] [place] #### METH, EPO #### [facility] , Serum or plasma anion gap de terminationOrdered By: Lilly Christianson on 04-13-2023 Anion gap [Moles/Vol] 12.0 mmol/L Normal 6.0-15.0 [facility] Comment on above: Performed By: #### C BC, CMP, FE and TIBC, JAQUELINE, [id number] #### [facility] [address] [place] [address] [place] #### METH, EPO #### [facility] , Sodium [Moles/volume] in Ser um or PlasmaOrdered By: Lilly Christianson on 04-13-2023 Sodium [Moles/Vol] 138 mmol/L Normal 136-145 [facility] Comment on above: Performed By: #### C BC, CMP, FE and TIBC, JAQUELINE, [id number] #### [facility] [address] [place] [address] [place] #### METH, EPO #### [facility] , Transferrin [Mass/volume] in Serum or PlasmaOrdered By: Lilly Christianson on 04-13-2023 Transferrin [Mass/Vol] 184 mg/dL Low 203-362 [facility] Comment on above: Performed By: #### C BC, CMP, FE and TIBC, JAQUELINE, [id number] #### [address] #### METH, EPO #### [facility] , Urea nitrogen [Mass/volume] in Serum or PlasmaOrdered By: Lilly Christianson on 04-13-2023 Urea nitrogen [Mass/Vol] 19 mg/dL Normal 7-25 [facility] Comment on above: Performed By: #### C BC, CMP, FE and TIBC, JAQUELINE, [id number] #### [address] #### METH, EPO #### [facility] , Vit. B12/Folate Profileon Folate 4.7 ng/mL Low >5.9 [facility] Comment on above: Result Comment: Sherry te reference range: >5.9 ng/ml The WHO technical consultation on folate and vitamin b12 deficiencies has determined that folate concentrations less than 4 ng/ml are considered deficient. PERFORMED BY: [place] [address] PATHOLOGIST ACADEMIC ADVISOR YU ACOSTA M.D. Performed By: #### C BC, CMP, FE and TIBC, JAQUELINE, [id number] #### [place] [address] [place] #### METH, EPO #### [facility] , Vitamin B12 ser/plasOrdered By: Lilly Christianson on 04-13-2023 Cobalamin (Vitamin B12) [Mass/Vol] pg/mL High 180-914 [facility] Comment on above: Performed By: #### C BC, CMP, FE and TIBC, JAQUELINE, [id number] #### [address] #### METH, EPO #### [facility] , Complete Blood Count Auto Di ffon 01-17-2023 Basophils (Bld) [#/Vol] 0.1 10*3/uL Normal 0.0-0.2 [facility] Comment on above: Result Comment: PERF ORMED BY: [place] [address] PATHOLOGIST ACADEMIC ADVISOR YU ACOSTA M.D. Performed By: #### C BC, CMP, FE and TIBC, JAQUELINE, [id number] #### [address] #### METH, EPO #### [facility] , Basophils/100 WBC (Bld) 0.7 % Normal . [facility] Comment on above: Performed By: #### C BC, CMP, FE and TIBC, JAQUELINE, [id number] #### [address] #### METH, EPO #### [facility] , Eosinophils (Bld) [#/Vol] 0.2 10*3/uL Normal 0.0-0.45 [facility] Comment on above: Performed By: #### C BC, CMP, FE and TIBC, JAQUELINE, [id number] #### [place] [address] [place] #### METH, EPO #### [facility] , Eosinophils/100 WBC (Bld) 2.3 % Normal . [facility] Comment on above: Performed By: #### C BC, CMP, FE and TIBC, JAQUELINE, [id number] #### [place] [address] [place] #### METH, EPO #### [facility] , Erythrocyte distribution width (RBC) [Ratio] 14.8 % Normal 11.9-15.3 [facility] Comment on above: Performed By: #### C BC, CMP, FE and TIBC, JAQUELINE, [id number] #### [place] [address] [place] #### METH, EPO #### [facility] , Hematocrit (Bld) [Volume fraction] 42.8 % Normal 34.0-46.4 [facility] Comment on above: Performed By: #### C BC, CMP, FE and TIBC, JAQUELINE, [id number] #### [address] #### METH, EPO #### [facility] , Hemoglobin (Bld) [Mass/Vol] 14.2 g/dL Normal 11.8-15.4 [facility] Comment on above: Performed By: #### C BC, CMP, FE and TIBC, JAQUELINE, [id number] #### [place] [address] [place] #### METH, EPO #### [facility] , Lymphocytes (Bld) [#/Vol] 2.8 10*3/uL Normal 1.00-4.8 [facility] Comment on above: Performed By: #### C BC, CMP, FE and TIBC, JAQUELINE, [id number] #### [place] [address] [place] #### METH, EPO #### [facility] , Lymphocytes/100 WBC (Bld) 28.0 % Normal . [facility] Comment on above: Performed By: #### C BC, CMP, FE and TIBC, JAQUELINE, [id number] #### [place] [address] [place] #### METH, EPO #### [facility] , MCH (RBC) [Entitic mass] 30.3 pg Normal 24.7-34.3 [facility] Comment on above: Performed By: #### C BC, CMP, FE and TIBC, JAQUELINE, [id number] #### [place] [address] [place] #### METH, EPO #### [facility] , MCV (RBC) [Entitic vol] 90.9 fL Normal 80-100 [facility] Comment on above: Performed By: #### C BC, CMP, FE and TIBC, JAQUELINE, [id number] #### [address] #### METH, EPO #### [facility] , Mean Corpuscular HGB Conc 33.3 g/dL Normal 32.0-35.0 [facility] Comment on above: Performed By: #### C BC, CMP, FE and TIBC, JAQUELINE, [id number] #### [address] #### METH, EPO #### [facility] , Monocytes (Bld) [#/Vol] 0.8 10*3/uL Normal 0.0-0.8 [facility] Comment on above: Performed By: #### C BC, CMP, FE and TIBC, JAQUELINE, [id number] #### [place] [address] [place] #### METH, EPO #### [facility] , Monocytes/100 WBC (Bld) 8.3 % Normal . [facility] Comment on above: Performed By: #### C BC, CMP, FE and TIBC, JAQUELINE, [id number] #### [place] [address] [place] #### METH, EPO #### [facility] , Neutrophils (Bld) [#/Vol] 6.1 10*3/uL Normal 1.8-7.7 [facility] Comment on above: Performed By: #### C BC, CMP, FE and TIBC, JAQUELINE, [id number] #### [place] [address] [place] #### METH, EPO #### [facility] , Neutrophils/100 WBC (Bld) 60.7 % Normal . [facility] Comment on above: Performed By: #### C BC, CMP, FE and TIBC, JAQUELINE, [id number] #### [place] [address] [place] #### METH, EPO #### [facility] , NRBC% 0.1 /100{WBC} Normal 0-0.5 [facility] Comment on above: Performed By: #### C BC, CMP, FE and TIBC, JAQUELINE, [id number] #### [place] [address] [place] #### METH, EPO #### [facility] , Platelet mean volume (Bld) [Entitic vol] 9.0 fL Normal 6.3-10.7 [facility] Comment on above: Performed By: #### C BC, CMP, FE and TIBC, JAQUELINE, [id number] #### [place] [address] [place] #### METH, EPO #### [facility] , Platelets (Bld) [#/Vol] 194 10*3/uL Normal 150-450 [facility] Comment on above: Performed By: #### C BC, CMP, FE and TIBC, JAQUELINE, [id number] #### [place] [address] [place] #### METH, EPO #### [facility] , RBC (Bld) [#/Vol] 4.70 10*6/uL Normal 3.60-5.00 [facility] Comment on above: Performed By: #### C BC, CMP, FE and TIBC, JAQUELINE, [id number] #### [address] #### METH, EPO #### [facility] , WBC (Bld) [#/Vol] 10.0 10*3/uL Normal 3.8-11.6 [facility] Comment on above: Performed By: #### C BC, CMP, FE and TIBC, JAQUELINE, [id number] #### [address] #### METH, EPO #### [facility] , Comprehensive Metabolic Pane [facility] 01-17-2023 Albumin [Mass/Vol] 3.9 g/dL Normal 3.5-5.7 [facility] Comment on above: Performed By: #### C BC, CMP, FE and TIBC, JAQUELINE, [id number] #### [place] [address] [place] #### METH, EPO #### [facility] , Albumin/Globulin [Mass ratio] 1.4 {ratio} Normal [facility] Comment on above: Performed By: #### C BC, CMP, FE and TIBC, JAQUELINE, [id number] #### [place] [address] [place] #### METH, EPO #### [facility] , ALP [Catalytic activity/Vol] 147 U/L High 34-104 [facility] Comment on above: Performed By: #### C BC, CMP, FE and TIBC, JAQUELINE, [id number] #### [place] [address] [place] #### METH, EPO #### [facility] , ALT [Catalytic activity/Vol] 19 U/L Normal 7-52 [facility] Comment on above: Performed By: #### C BC, CMP, FE and TIBC, JAQUELINE, [id number] #### [place] [address] [place] #### METH, EPO #### [facility] , Anion gap [Moles/Vol] 11.1 mmol/L Normal 6.0-15.0 [facility] Comment on above: Performed By: #### C BC, CMP, FE and TIBC, JAQUELINE, [id number] #### [place] [address] [place] #### METH, EPO #### [facility] , AST [Catalytic activity/Vol] 13 U/L Normal 13-39 [facility] Comment on above: Performed By: #### C BC, CMP, FE and TIBC, JAQUELINE, [id number] #### [address] #### METH, EPO #### [facility] , Bilirubin [Mass/Vol] 0.4 mg/dL Normal 0.3-1.0 [facility] Comment on above: Performed By: #### C BC, CMP, FE and TIBC, JAQUELINE, [id number] #### [place] [address] [place] #### METH, EPO #### [facility] , Calcium [Mass/Vol] 8.8 mg/dL Normal 8.6-10.3 [facility] Comment on above: Performed By: #### C BC, CMP, FE and TIBC, JAQUELINE, [id number] #### [place] [address] [place] #### METH, EPO #### [facility] , Chloride [Moles/Vol] 102 mmol/L Normal 98-107 [facility] Comment on above: Performed By: #### C BC, CMP, FE and TIBC, JAQUELINE, [id number] #### [place] [address] [place] #### METH, EPO #### [facility] , CO2 [Moles/Vol] 30.1 mmol/L Normal 21.0-31.0 [facility] Comment on above: Performed By: #### C BC, CMP, FE and TIBC, JAQUELINE, [id number] #### [place] [address] [place] #### METH, EPO #### [facility] , Creatinine [Mass/Vol] 1.10 mg/dL Normal 0.60-1.20 [facility] Comment on above: Performed By: #### C BC, CMP, FE and TIBC, JAQUELINE, [id number] #### [place] [address] [place] #### METH, EPO #### [facility] , Creatinine Clr Calc Pharmacy 70.45 Normal [facility] Comment on above: Performed By: #### C BC, CMP, FE and TIBC, JAQUELINE, [id number] #### [place] [address] [place] #### METH, EPO #### [facility] , GFR/1.73 sq M.predicted MDRD (S/P/Bld) [Vol rate/Area] 58.608 mL/min/{1.73_m2} Normal [facility] Comment on above: Performed By: #### C BC, CMP, FE and TIBC, JAQUELINE, [id number] #### [place] [address] [place] #### METH, EPO #### [facility] , Globulin (S) [Mass/Vol] 2.8 g/dL Normal [facility] Comment on above: Performed By: #### C BC, CMP, FE and TIBC, JAQUELINE, [id number] #### [place] [address] [place] #### METH, EPO #### [facility] , Glucose [Mass/Vol] 132 mg/dL High 70-100 [facility] Comment on above: Result Comment: [facility] Glucose Reference Range is dependent on time and content of last meal. Glucose of more than 200 mg/dL in a nonstressed, ambulatory subject supports the diagnosis of Diabetes Mellitus. ADA recommended reference range Performed By: #### C BC, CMP, FE and TIBC, JAQUELINE, [id number] #### [place] [address] [place] #### METH, EPO #### [facility] , Potassium [Moles/Vol] 4.2 mmol/L Normal 3.5-5.1 [facility] Comment on above: Performed By: #### C BC, CMP, FE and TIBC, JAQUELINE, [id number] #### [place] [address] [place] #### METH, EPO #### [facility] , Protein [Mass/Vol] 6.7 g/dL Normal 6.4-8.9 [facility] Comment on above: Performed By: #### C BC, CMP, FE and TIBC, JAQUELINE, [id number] #### [place] [address] [place] #### METH, EPO #### [facility] , Sodium [Moles/Vol] 139 mmol/L Normal 136-145 [facility] Comment on above: Performed By: #### C BC, CMP, FE and TIBC, JAQUELINE, [id number] #### [place] [address] [place] #### METH, EPO #### [facility] , Urea nitrogen [Mass/Vol] 15 mg/dL Normal 7-25 [facility] Comment on above: Performed By: #### C BC, CMP, FE and TIBC, JAQUELINE, [id number] #### [place] [address] [place] #### METH, EPO #### [facility] , Erythropoetin (EPO), Serumon 01-17-2023 Erythropoetin (EPO), Serum 23.0 m[iU]/mL High 2.6-18.5 [facility] Comment on above: Result Comment: [employer] DxI 800 Immunoassay System Values obtained with different assay methods or kits cannot be used interchangeably. Results cannot be interpreted as absolute evidence of the presence or absence of malignant disease. Performed at: [address] [id number] Poultry Cleaner: Hieu Willams PhD, Phone: [phone] PERFORMED BY: [place] [address] PATHOLOGIST ACADEMIC ADVISOR YU ACOSTA M.D. Performed By: #### C BC, CMP, FE and TIBC, JAQUELINE, [id number] #### [address] #### METH, EPO #### [facility] , Ferritinon 01-17-2023 Ferritin [Mass/Vol] 68.6 ng/mL Normal 11.0-306.8 [facility] Comment on above: Performed By: #### C BC, CMP, FE and TIBC, JAQUELINE, [id number] #### [address] #### METH, EPO #### [facility] , Iron and TIBC Profileon 12-23 % Iron Saturation 45.9 % Normal 20-50 [facility] Comment on above: Performed By: #### C BC, CMP, FE and TIBC, JAQUELINE, [id number] #### [place] [address] [place] #### METH, EPO #### [facility] , Iron [Mass/Vol] 129 ug/dL Normal 50-212 [facility] Comment on above: Performed By: #### C BC, CMP, FE and TIBC, JAQUELINE, [id number] #### [address] [place] [address] [place] #### METH, EPO #### [facility] , Total Iron Binding Capacity 281 ug/dL Normal 255-450 [facility] Comment on above: Performed By: #### C BC, CMP, FE and TIBC, JAQUELINE, [id number] #### [place] [address] [place] #### METH, EPO #### [facility] , Transferrin [Mass/Vol] 201 mg/dL Low 203-362 [facility] Comment on above: Performed By: #### C BC, CMP, FE and TIBC, JAQUELINE, [id number] #### [facility] [address] [place] [address] [place] #### METH, EPO #### [facility] , Methylmalonic Acidon 023 Methylmalonic Acid 224 Normal 0-378 [facility] Comment on above: Result Comment: This test was developed and its performance characteristics determined by [employer]. It has not been cleared or approved by the Food and Drug Administration. Performed at: [address] [id number] Poultry Cleaner: Amara Coyne MD, Phone: [phone] Performed By: #### C BC, CMP, FE and TIBC, JAQUELINE, [id number] #### [place] [address] [place] #### METH, EPO #### [facility] , Serum or plasma erythropoiet in (EPO) measurement (units/volume)Ordered By: Lilly Christianson on 01-17-2023 Erythropoietin (EPO) Qn 23.0 mIU/mL 2.6-18.5 [facility] Comment on above: [employer] Uni[employer] DxI 800 Immunoassay SystemValues obtained with different assay methods or kits cannotbe used interchangeably. Results cannot be interpreted asabsolute evidence of the presence or absence of malignantdisease.Performed at: [facility] [employer] [id number] Director: Hieu Willams PhD, Phone: [phone] Serum or plasma methylmalona te measurement (moles/volume)Ordered By: Lilly Christianson on 01-17-2023 Methylmalonate [Moles/Vol] 224 nmol/L 0-378 [facility] Comment on above: This test was develo ped and its performance characteristicsdetermined by [facility]. It has not been cleared orapproved by the Food and Drug Administration.Performed at: [address] [id number] Director: Amara Cyone MD, Phone: [phone] Vit. B12/Folate Profileon Cobalamin (Vitamin B12) [Mass/Vol] 490 pg/mL Normal 180-914 [facility] Comment on above: Performed By: #### C BC, CMP, FE and TIBC, JAQUELINE, [id number] #### [address] #### METH, EPO #### [facility] , Folate 6.8 ng/mL Normal >5.9 [facility] Comment on above: Result Comment: Sherry te reference range: >5.9 ng/ml The WHO technical consultation on folate and vitamin b12 deficiencies has determined that folate concentrations less than 4 ng/ml are considered deficient. PERFORMED BY: [place] [address] PATHOLOGIST ACADEMIC ADVISOR YU ACOSTA M.D. Performed By: #### C BC, CMP, FE and TIBC, JAQUELINE, [id number] #### [address] #### METH, EPO #### [facility] , Complete Blood Count Auto Di ffon 10-22-2022 Basophils (Bld) [#/Vol] 0.1 10*3/uL Normal 0.0-0.2 [facility] Comment on above: Result Comment: PERF ORMED BY: [place] [address] PATHOLOGIST ACADEMIC ADVISOR YU ACOSTA M.D. Performed By: #### C BC, CMP, FE and TIBC, JAQUELINE, [id number] #### [address] #### METH, EPO #### [facility] , Basophils/100 WBC (Bld) 0.7 % Normal . [facility] Comment on above: Performed By: #### C BC, CMP, FE and TIBC, JAQUELINE, [id number] #### [address] #### METH, EPO #### [facility] , Eosinophils (Bld) [#/Vol] 0.4 10*3/uL Normal 0.0-0.45 [facility] Comment on above: Performed By: #### C BC, CMP, FE and TIBC, JAQUELINE, [id number] #### [place] [address] [place] #### METH, EPO #### [facility] , Eosinophils/100 WBC (Bld) 3.4 % Normal . [facility] Comment on above: Performed By: #### C BC, CMP, FE and TIBC, JAQUELINE, [id number] #### [address] #### METH, EPO #### [facility] , Erythrocyte distribution width (RBC) [Ratio] 15.8 % High 11.9-15.3 [facility] Comment on above: Performed By: #### C BC, CMP, FE and TIBC, JAQUELINE, [id number] #### [place] [address] [place] #### METH, EPO #### [facility] , Hematocrit (Bld) [Volume fraction] 39.3 % Normal 34.0-46.4 [facility] Comment on above: Performed By: #### C BC, CMP, FE and TIBC, JAQUELINE, [id number] #### [address] #### METH, EPO #### [facility] , Hemoglobin (Bld) [Mass/Vol] 12.8 g/dL Normal 11.8-15.4 [facility] Comment on above: Performed By: #### C BC, CMP, FE and TIBC, JAQUELINE, [id number] #### [place] [address] [place] #### METH, EPO #### [facility] , Lymphocytes (Bld) [#/Vol] 3.2 10*3/uL Normal 1.00-4.8 [facility] Comment on above: Performed By: #### C BC, CMP, FE and TIBC, JAQUELINE, [id number] #### [place] [address] [place] #### METH, EPO #### [facility] , Lymphocytes/100 WBC (Bld) 25.9 % Normal . [facility] Comment on above: Performed By: #### C BC, CMP, FE and TIBC, JAQUELINE, [id number] #### [address] #### METH, EPO #### [facility] , MCH (RBC) [Entitic mass] 29.5 pg Normal 24.7-34.3 [facility] Comment on above: Performed By: #### C BC, CMP, FE and TIBC, JAQUELINE, [id number] #### [place] [address] [place] #### METH, EPO #### [facility] , MCV (RBC) [Entitic vol] 90.6 fL Normal 80-100 [facility] Comment on above: Performed By: #### C BC, CMP, FE and TIBC, JAQUELINE, [id number] #### [place] [address] [place] #### METH, EPO #### [facility] , Mean Corpuscular HGB Conc 32.6 g/dL Normal 32.0-35.0 [facility] Comment on above: Performed By: #### C BC, CMP, FE and TIBC, JAQUELINE, [id number] #### [place] [address] [place] #### METH, EPO #### [facility] , Monocytes (Bld) [#/Vol] 0.9 10*3/uL High 0.0-0.8 [facility] Comment on above: Performed By: #### C BC, CMP, FE and TIBC, JAQUELINE, [id number] #### [address] #### METH, EPO #### [facility] , Monocytes/100 WBC (Bld) 7.1 % Normal . [facility] Comment on above: Performed By: #### C BC, CMP, FE and TIBC, JAQUELINE, [id number] #### [place] [address] [place] #### METH, EPO #### [facility] , Neutrophils (Bld) [#/Vol] 7.9 10*3/uL High 1.8-7.7 [facility] Comment on above: Performed By: #### C BC, CMP, FE and TIBC, JAQUELINE, [id number] #### [place] [address] [place] #### METH, EPO #### [facility] , Neutrophils/100 WBC (Bld) 62.9 % Normal . [facility] Comment on above: Performed By: #### C BC, CMP, FE and TIBC, JAQUELINE, [id number] #### [place] [address] [place] #### METH, EPO #### [facility] , NRBC% 0.1 /100{WBC} Normal 0-0.5 [facility] Comment on above: Performed By: #### C BC, CMP, FE and TIBC, JAQUELINE, [id number] #### [address] #### METH, EPO #### [facility] , Platelet mean volume (Bld) [Entitic vol] 10.4 fL Normal 6.3-10.7 [facility] Comment on above: Performed By: #### C BC, CMP, FE and TIBC, JAQUELINE, [id number] #### [address] #### METH, EPO #### [facility] , Platelets (Bld) [#/Vol] 199 10*3/uL Normal 150-450 [facility] Comment on above: Performed By: #### C BC, CMP, FE and TIBC, JAQUELINE, [id number] #### [address] #### METH, EPO #### [facility] , RBC (Bld) [#/Vol] 4.34 10*6/uL Normal 3.60-5.00 [facility] Comment on above: Performed By: #### C BC, CMP, FE and TIBC, JAQUELINE, [id number] #### [place] [address] [place] #### METH, EPO #### [facility] , WBC (Bld) [#/Vol] 12.5 10*3/uL High 3.8-11.6 [facility] Comment on above: Performed By: #### C BC, CMP, FE and TIBC, JAQUELINE, [id number] #### [place] [address] [place] #### METH, EPO #### [facility] , Comprehensive Metabolic Pane philipp 10-22-2022 Albumin [Mass/Vol] 3.9 g/dL Normal 3.5-5.7 [facility] Comment on above: Performed By: #### C BC, CMP, FE and TIBC, JAQUELINE, [id number] #### [address] #### METH, EPO #### [facility] , Albumin/Globulin [Mass ratio] 1.5 {ratio} Normal [facility] Comment on above: Performed By: #### C BC, CMP, FE and TIBC, JAQUELINE, [id number] #### [place] [address] [place] #### METH, EPO #### [facility] , ALP [Catalytic activity/Vol] 161 U/L High 34-104 [facility] Comment on above: Performed By: #### C BC, CMP, FE and TIBC, JAQUELINE, [id number] #### [place] [address] [place] #### METH, EPO #### [facility] , ALT [Catalytic activity/Vol] 16 U/L Normal 7-52 [facility] Comment on above: Performed By: #### C BC, CMP, FE and TIBC, JAQUELINE, [id number] #### [place] [address] [place] #### METH, EPO #### [facility] , Anion gap [Moles/Vol] 13.9 mmol/L Normal 6.0-15.0 [facility] Comment on above: Performed By: #### C BC, CMP, FE and TIBC, JAQUELINE, [id number] #### [place] [address] [place] #### METH, EPO #### [facility] , AST [Catalytic activity/Vol] 13 U/L Normal 13-39 [facility] Comment on above: Performed By: #### C BC, CMP, FE and TIBC, JAQUELINE, [id number] #### [place] [address] [place] #### METH, EPO #### [facility] , Bilirubin [Mass/Vol] 0.3 mg/dL Normal 0.3-1.0 [facility] Comment on above: Performed By: #### C BC, CMP, FE and TIBC, JAQUELINE, [id number] #### [place] [address] [place] #### METH, EPO #### [facility] , Calcium [Mass/Vol] 8.9 mg/dL Normal 8.6-10.3 [facility] Comment on above: Performed By: #### C BC, CMP, FE and TIBC, JAQUELINE, [id number] #### [place] [address] [place] #### METH, EPO #### [facility] , Chloride [Moles/Vol] 100 mmol/L Normal 98-107 [facility] Comment on above: Performed By: #### C BC, CMP, FE and TIBC, JAQUELINE, [id number] #### [place] [address] [place] #### METH, EPO #### [facility] , CO2 [Moles/Vol] 28.4 mmol/L Normal 21.0-31.0 [facility] Comment on above: Performed By: #### C BC, CMP, FE and TIBC, JAQUELINE, [id number] #### [place] [address] [place] #### METH, EPO #### [facility] , Creatinine [Mass/Vol] 1.40 mg/dL High 0.60-1.20 [facility] Comment on above: Performed By: #### C BC, CMP, FE and TIBC, JAQUELINE, [id number] #### [place] [address] #### METH, EPO #### [facility] , Creatinine Clr Calc Pharmacy 56.02 Normal [facility] Comment on above: Performed By: #### C BC, CMP, FE and TIBC, JAQUELINE, [id number] #### [place] [address] [place] #### METH, EPO #### [facility] , GFR/1.73 sq M.predicted MDRD (S/P/Bld) [Vol rate/Area] 44.155 mL/min/{1.73_m2} Normal [facility] Comment on above: Performed By: #### C BC, CMP, FE and TIBC, JAQUELINE, [id number] #### [address] #### METH, EPO #### [facility] , Globulin (S) [Mass/Vol] 2.6 g/dL Normal [facility] Comment on above: Performed By: #### C BC, CMP, FE and TIBC, JAQUELINE, [id number] #### [place] [address] [place] #### METH, EPO #### [facility] , Glucose [Mass/Vol] 281 mg/dL High 70-100 [facility] Comment on above: Result Comment: [facility] Glucose Reference Range is dependent on time and content of last meal. Glucose of more than 200 mg/dL in a nonstressed, ambulatory subject supports the diagnosis of Diabetes Mellitus. ADA recommended reference range Performed By: #### C BC, CMP, FE and TIBC, JAQUELINE, [id number] #### [place] [address] [place] #### METH, EPO #### [facility] , Potassium [Moles/Vol] 4.3 mmol/L Normal 3.5-5.1 [facility] Comment on above: Performed By: #### C BC, CMP, FE and TIBC, JAQUELINE, [id number] #### [place] [address] [place] #### METH, EPO #### [facility] , Protein [Mass/Vol] 6.5 g/dL Normal 6.4-8.9 [facility] Comment on above: Performed By: #### C BC, CMP, FE and TIBC, JAQUELINE, [id number] #### [place] [address] [place] #### METH, EPO #### [facility] , Sodium [Moles/Vol] 138 mmol/L Normal 136-145 [facility] Comment on above: Performed By: #### C BC, CMP, FE and TIBC, JAQUELINE, [id number] #### [place] [address] [place] #### METH, EPO #### [facility] , Urea nitrogen [Mass/Vol] 17 mg/dL Normal 7-25 [facility] Comment on above: Performed By: #### C BC, CMP, FE and TIBC, JAQUELINE, [id number] #### [place] [address] [place] #### METH, EPO #### [facility] , Erythropoetin (EPO), Serumon 10-22-2022 Erythropoetin (EPO), Serum 31.7 m[iU]/mL High 2.6-18.5 [facility] Comment on above: Result Comment: [employer] DxI 800 Immunoassay System Values obtained with different assay methods or kits cannot be used interchangeably. Results cannot be interpreted as absolute evidence of the presence or absence of malignant disease. Performed at: [address] [id number] Poultry Cleaner: Hieu Willams PhD, Phone: [phone] PERFORMED BY: [place] [address] PATHOLOGIST ACADEMIC ADVISOR JIANLAN SUN M.D. Performed By: #### C BC, CMP, FE and TIBC, JAQUELINE, [id number] #### [place] [address] [place] #### METH, EPO #### [facility] , Ferritinon 10-22-2022 Ferritin [Mass/Vol] 82.9 ng/mL Normal 11.0-306.8 [facility] Comment on above: Performed By: #### C BC, CMP, FE and TIBC, JAQUELINE, [id number] #### [place] [address] [place] #### METH, EPO #### [facility] , Iron and TIBC Profileon % Iron Saturation 34.3 % Normal 20-50 [facility] Comment on above: Performed By: #### C BC, CMP, FE and TIBC, JAQUELINE, [id number] #### [place] [address] [place] #### METH, EPO #### [facility] , Iron [Mass/Vol] 94 ug/dL Normal 50-212 [facility] Comment on above: Performed By: #### C BC, CMP, FE and TIBC, JAQUELINE, [id number] #### [place] [address] [place] #### METH, EPO #### [facility] , Total Iron Binding Capacity 274 ug/dL Normal 255-450 [facility] Comment on above: Performed By: #### C BC, CMP, FE and TIBC, JAQUELINE, [id number] #### [place] [address] [place] #### METH, EPO #### [facility] , Transferrin [Mass/Vol] 196 mg/dL Low 203-362 [facility] Comment on above: Performed By: #### C BC, CMP, FE and TIBC, JAQUELINE, [id number] #### [address] #### METH, EPO #### [facility] , Methylmalonic Acidon 023 Methylmalonic Acid 270 Normal 0-378 [facility] Comment on above: Result Comment: This test was developed and its performance characteristics determined by [facility]. It has not been cleared or approved by the Food and Drug Administration. Performed at: [address] [id number] Poultry Cleaner: Amara Coyne MD, Phone: [phone] Performed By: #### C BC, CMP, FE and TIBC, JAQUELINE, [id number] #### [address] #### METH, EPO #### [facility] , Vit. B12/Folate Profileon Cobalamin (Vitamin B12) [Mass/Vol] pg/mL High 180-914 [facility] Comment on above: Performed By: #### C BC, CMP, FE and TIBC, JAQUELINE, [id number] #### [address] #### METH, EPO #### [facility] , Folate 5.7 ng/mL Low >5.9 [facility] Comment on above: Result Comment: Sherry te reference range: >5.9 ng/ml The WHO technical consultation on folate and vitamin b12 deficiencies has determined that folate concentrations less than 4 ng/ml are considered deficient. PERFORMED BY: [place] [address] PATHOLOGIST ACADEMIC ADVISOR YU ACOSTA M.D. Performed By: #### C BC, CMP, FE and TIBC, JAQUELINE, [id number] #### [address] #### METH, EPO #### [facility] , CREATININE BLDon 10-07-2022 Creatinine [Mass/Vol] 1.06 mg/dL High 0.58-0.96 [facility] Comment on above: Order Comment: Speci men Type: BLOOD SPECIMEN Ordering Facility: [facility] Address: [address] [place] [id number] Performed By: #### C RET1 #### [facility] CLIA [id number] [address] [place] [id number] Creatinine and Glomerular filtration rate.predicted panel (S/P/Bld) 62 mL/min/1.73m??? Normal >=60 [facility] Comment on above: Order Comment: Speci men Type: BLOOD SPECIMEN Ordering Facility: [facility] Address: [address] [id number] Result Comment: Terri mated Glomerular Filtration Rate [...] GFR. Performed By: #### C RET1 #### [facility] CLIA [id number] [place] [id number] CREATININE BLDOrdered By: David Chavis on 10-07-2022 Creatinine [Mass/Vol] 1.06 mg/dL High 0.58 - 0.96 mg/dL [facility] GFR/1.73 sq M.predicted among non-blacks MDRD (S/P/Bld) [Vol rate/Area] 62 mL/min/{1.73_m2} - PINF [facility] Comment on above: Estimated Glomerular Filtration Rate [...] Interpretation and review of laboratory results Abnormal [facility] CT KIDNEY WO/W IVCONon 10-07 CT KIDNEY WO/W IVCON * * *Final Report* * * DATE OF EXAM: Oct 07 2022 11:27AM [facility] 0546 - CT KIDNEY WO/W [...] No pulmonary parenchymal nodule or pleural effusion. Assistant Product Manager (topogram) images: No additional findings. IMPRESSION: [...] any questions regarding this interpretation, please call [phone]. If you are unable to reach us at the number above, please feel free to contact [facility] eRadiology at [phone]. [id number] Normal [facility] CT Kidney WO and W [...] any questions regarding this interpretation, please call [phone]. If you are unable to reach us at the number above, please feel free to contact [facility]Radiology at [phone]. DIVISION OF RADIOLOGY * * *Final Report* * * DATE OF EXAM: Oct 07 2022 11:27AM [facility] 0546 - CT KIDNEY WO/W [...] No pulmonary parenchymal nodule or pleural effusion. Assistant Product Manager (topogram) images: No additional findings. DIVISION OF RADIOLOGY Provider, [facility] - 10/07/2022 * * *Final Report* * * DATE OF EXAM: Oct 07 2022 11:27AM [facility] 0546 - CT KIDNEY WO/W [...] No pulmonary parenchymal nodule or pleural effusion. Assistant Product Manager (topogram) images: No additional findings. IMPRESSION IMPRESSION: [...] any questions regarding this interpretation, please call [phone]. If you are unable to reach us at the number above, please feel free to contact [facility] eRadiology at [phone]. [facility] Radiology Study observation (narrative) [facility] CT Kidney WO and W contrast IVOrdered By: Ccf Provider on 10-07-2022 [facility] C. DIFF PCRon 06-18-2022 C. DIFFICILE PCR Negative Normal NEGATIVE [facility] Comment on above: Performed By: #### C DIFPOC #### [facility] [address] [place] [address] Dr. Naz Crouch Albumin [Mass/volume] in Ser um or PlasmaOrdered By: Joanne Brown on 06-16-2022 Albumin [Mass/Vol] 3.3 g/dL 2.9-4.4 [facility] IgA [Mass/volume] in Serum o r PlasmaOrdered By: Joanne Brown on 06-16-2022 IgA [Mass/Vol] 224 mg/dL 87-352 [facility] IgG [Mass/volume] in Serum o r PlasmaOrdered By: Joanne Brown on 06-16-2022 IgG [Mass/Vol] 1023 mg/dL [phone] [facility] IgM [Mass/volume] in Serum o r PlasmaOrdered By: Joanne Brown on 06-16-2022 IgM [Mass/Vol] 50 mg/dL 26-217 [facility] Comment on above: Performed at: [facility] [address] [id number] Director: Hieu Willams PhD, Phone: [phone] Immunoglobulin light chains. kappa.free [Mass/volume] in SerumOrdered By: Joanne Brown on 06-16-2022 Immunoglobulin light chains.kappa.free (S) [Mass/Vol] 47.9 mg/L 3.3-19.4 [facility] Immunoglobulin light chains. kappa.free/Immunoglobulin light chains.lambda.free [MassOrdered By: Joanne Brown on 06-16-2022 Immunoglobulin light chains.kappa.free/Immu noglobulin light chains.lambda.free (S) [Mass ratio] 1.89 0.26-1.65 [facility] Immunoglobulin light chains. lambda.free [Mass/volume] in Serum or PlasmaOrdered By: Joanne Brown on 06-16-2022 Immunoglobulin light chains.lambda.free [Mass/Vol] 25.3 mg/L 5.7-26.3 [facility] No Panel InformationOrdered By: Joanne Brown on 06-16-2022 Protein Electrophoresis M-Anam Not observed g/dL Not Observed [facility] Protein Electrophoresis Note See comment . [facility] Comment on above: Protein electrophore sis scan will follow via computer,mail, or band aid machine operator delivery.Performed at: [place] [facility] [address] [id number] Director: Hieu Willams PhD, Phone: [phone] Serum Immunofixation See comment . [facility] Comment on above: No monoclonality det ected. Protein [Mass/volume] in Ser um or PlasmaOrdered By: Joanne Brown on 06-16-2022 Protein [Mass/Vol] 6.4 g/dL 6.0-8.5 [facility] Serum globulin measurement ( mass/volume)Ordered By: Joanne Brown on 06-16-2022 Globulin (S) [Mass/Vol] 3.1 g/dL 2.2-3.9 [facility] Serum or plasma albumin/glob ulin mass ratioOrdered By: Joanne Brown on 06-16-2022 Albumin/Globulin [Mass ratio] 1.1 {ratio} 0.7-1.7 [facility] Serum or plasma alpha 1 glob ulin measurement by electrophoresis (mass/volume)Ordered By: Joanne Kevin on 06-16-2022 Alpha 1 globulin Elph [Mass/Vol] 0.3 g/dL 0.0-0.4 [facility] Serum or plasma alpha 2 glob ulin measurement by electrophoresis (mass/volume)Ordered By: Joanne Lopezindia on 06-16-2022 Alpha 2 globulin Elph [Mass/Vol] 1.0 g/dL 0.4-1.0 [facility] Serum or plasma beta globuli n measurement by electrophoresis (mass/volume)Ordered By: Joanne Kevin on 06-16-2022 Beta globulin Elph [Mass/Vol] 1.0 g/dL 0.7-1.3 [facility] Serum or plasma gamma globul in measurement by electrophoresis (mass/volume)Ordered By: Joanne Kevin on 06-16-2022 Gamma globulin Elph [Mass/Vol] 0.9 g/dL 0.4-1.8 [facility] Glucose Glucometer (BldC) [M ass/Vol]Ordered By: Bebo Sims on 06-02-2022 Glucose [Mass/Vol] 118 mg/dL [facility] Comment on above: Random Glucose Refer ence Range is dependent on time and content of last meal. Glucose of more than 200 mg/dL in a nonstressed, ambulatory subject supports the diagnosis of Diabetes Mellitus. CBC AUTO DIFFon 04-22-2022 BASO # 0.1 103/ul Normal 0.0-0.1 [facility] Comment on above: Performed By: #### C BC #### [facility] [address] [address] [address] Naz Crouch Basophils/100 WBC (Bld) 0.8 % Normal 0.2-2.0 [facility] Comment on above: Performed By: #### C BC #### [facility] [address] [address] [address] Naz Crouch EO # 0.3 103/ul Normal 0.0-0.7 [facility] Comment on above: Performed By: #### C BC #### [facility] [address] [place] [address] Dr. Naz Crouch Eosinophils/100 WBC (Bld) 2.2 % Normal 0.9-7.0 [facility] Comment on above: Performed By: #### C BC #### [facility] [address] [place] [address] Dr. Naz Crouch Erythrocyte distribution width (RBC) [Ratio] 20.0 % Critically high 11.0-15.0 [facility] Comment on above: Performed By: #### C BC #### [facility] [address] [place] [address] Dr. Naz Crouch Hematocrit (Bld) [Volume fraction] 27.6 % Critically low 36.0-48.0 [facility] Comment on above: Performed By: #### C BC #### [facility] [address] [place] [address] Dr. Naz Crouch Hemoglobin (Bld) [Mass/Vol] 7.3 g/dL Critically low 12.0-16.0 [facility] Comment on above: Performed By: #### C BC #### [facility] [address] [place] [address] Dr. Naz Crouch IG # 0.09 10e3/ul Critically high 0.00-0.03 [facility] Comment on above: Performed By: #### C BC #### [facility] [address] [place] [address] Dr. Naz Crouch IG % 0.7 % Critically high 0.0-0.5 [facility] Comment on above: Performed By: #### C BC #### [facility] [address] [place] [address] Dr. Naz Crouch LYMPH # 2.3 103/ul Normal 1.2-3.8 [facility] Comment on above: Performed By: #### C BC #### [facility] [address] [place] [address] Dr. Naz Crouch Lymphocytes/100 WBC (Bld) 17.8 % Critically low 20.5-60.0 [facility] Comment on above: Performed By: #### C BC #### [facility] [address] [place] [address] Dr. Naz Crouch MANUAL DIFF REQ NO Normal [facility] Comment on above: Performed By: #### C BC #### [facility] [address] [place] [address] Dr. Naz Crouch MCH (RBC) [Entitic mass] 18.3 pg Critically low 26.7-34.0 [facility] Comment on above: Performed By: #### C BC #### [facility] [address] [place] [address] Dr. Naz Crouch MCHC (RBC) [Mass/Vol] 26.4 g/dL Critically low 29.9-35.2 [facility] Comment on above: Performed By: #### C BC #### [facility] [address] [place] [address] Dr. Naz Crouch MCV (RBC) [Entitic vol] 69.2 fL Critically low 81.0-99.0 [facility] Comment on above: Performed By: #### C BC #### [facility] [address] [place] [address] Dr. Naz Crouch MONO # 0.8 103/ul Normal 0.3-0.8 [facility] Comment on above: Performed By: #### C BC #### [facility] [address] [place] [address] Dr. Naz Crouch Monocytes/100 WBC (Bld) 6.5 % Normal 1.7-12.0 [facility] Comment on above: Performed By: #### C BC #### [facility] [address] [place] [address] Dr. Naz Crouch NEUT # 9.3 103/ul Critically high 1.4-6.5 [facility] Comment on above: Performed By: #### C BC #### [facility] [address] [place] [address] Dr. Naz Crouch Neutrophils/100 WBC (Bld) 72.0 % Normal 43.0-75.0 [facility] Comment on above: Performed By: #### C BC #### [facility] [address] [place] [address] Dr. Naz Crouch Platelet mean volume (Bld) [Entitic vol] 9.4 fL Critically low 9.5-13.5 [facility] Comment on above: Performed By: #### C BC #### [facility] [address] [place] [address] Dr. Naz Crouch PLT 318 103/ul Normal 150-450 [facility] Comment on above: Performed By: #### C BC #### [facility] [address] [place] [address] Dr. Naz Crouch RBC 3.99 106/ul Critically low 4.20-5.40 [facility] Comment on above: Performed By: #### C BC #### [facility] [address] [place] [address] Dr. Naz Crouch WBC 13.0 103/ul Critically high 4.0-11.0 [facility] Comment on above: Performed By: #### C BC #### [facility] [address] [place] [address] Dr. Naz Crouch GLYCOHEMOGLOBIN A1Con 2022 ADA RECOMMENDATION SEE BELOW Normal [facility] Comment on above: Result Comment: ADA RECOMMENDED LIMIT 4.0 - 6.0 ADA THERAPEUTIC TARGET < 7.0 ACTION SUGGESTED > 7.0 Performed By: #### A 1C #### [facility] [address] [place] [address] Dr. Naz Crouch Glucose [Mass/Vol] 192 mg/dL Normal [facility] Comment on above: Performed By: #### A 1C #### [facility] [address] [place] [address] Dr. Naz Crouch HbA1c (Bld) [Mass fraction] 8.3 % Critically high 4.5-6.2 [facility] Comment on above: Performed By: #### A 1C #### [facility] [address] [place] [address] Dr. Naz Crouch MICROALBUMIN, RAND URon 03-0 mALB 4.7 mg/L Normal <=30.0 [facility] Comment on above: Performed By: #### M ALBR #### [facility] [address] [place] [address] Dr. Naz Crouch PROF 14(COMP METB)on 023 Albumin [Mass/Vol] 3.1 g/dL Critically low 3.4-5.0 [facility] Comment on above: Performed By: #### C MP, T4, TSH #### [facility] [address] [place] [address] Dr. Naz Crouch Albumin/Globulin [Mass ratio] 0.8 {ratio} Normal [facility] Comment on above: Performed By: #### C MP, T4, TSH #### [facility] [address] [place] [address] Dr. Naz Crouch ALP [Catalytic activity/Vol] 176 U/L Critically high 46-116 [facility] Comment on above: Performed By: #### C MP, T4, TSH #### [facility] [address] [place] [address] Dr. Naz Crouch ALT [Catalytic activity/Vol] 18 U/L Normal 14-59 [facility] Comment on above: Performed By: #### C MP, T4, TSH #### [facility] [address] [place] [address] Dr. Naz Crouch Anion gap [Moles/Vol] 12.9 mmol/L Normal [facility] Comment on above: Performed By: #### C MP, T4, TSH #### [facility] [address] [place] [address] Dr. Naz Crouch AST [Catalytic activity/Vol] 12 U/L Critically low 15-37 [facility] Comment on above: Performed By: #### C MP, T4, TSH #### [facility] [address] [place] [address] Dr. Naz Crouch Bilirubin [Mass/Vol] 0.2 mg/dL Normal 0.2-1.0 [facility] Comment on above: Performed By: #### C MP, T4, TSH #### [facility] [address] [place] [address] Dr. Naz Crouch Calcium [Mass/Vol] 8.8 mg/dL Normal 8.5-10.1 [facility] Comment on above: Performed By: #### C MP, T4, TSH #### [facility] [address] [place] [address] Dr. Naz Crouch Chloride [Moles/Vol] 104 mmol/L Normal 98-107 [facility] Comment on above: Performed By: #### C MP, T4, TSH #### [facility] [address] [address] [address] Naz Crouch CO2 [Moles/Vol] 27.5 mmol/L Normal 21.0-32.0 [facility] Comment on above: Performed By: #### C MP, T4, TSH #### [facility] [address] [place] [address] Dr. Naz Crouch Creatinine [Mass/Vol] 0.89 mg/dL Normal 0.55-1.02 [facility] Comment on above: Performed By: #### C MP, T4, TSH #### [facility] [address] [place] [address] Dr. Naz Crouch EGFR-AF MALAWIAN >60 Normal >=60 [facility] Comment on above: Performed By: #### C MP, T4, TSH #### [facility] [address] [place] [address] Dr. Naz Crouch EGFR-NON AF MALAWIAN >60 Normal >=60 [facility] Comment on above: Performed By: #### C MP, T4, TSH #### [facility] [address] [place] [address] Dr. Naz Crouch Globulin (S) [Mass/Vol] 3.9 g/dL Normal [facility] Comment on above: Performed By: #### C MP, T4, TSH #### [facility] [address] [place] [address] Dr. Naz Crouch Glucose [Mass/Vol] 206 mg/dL Critically high 74-106 [facility] Comment on above: Performed By: #### C MP, T4, TSH #### [facility] [address] [place] [address] Dr. Naz Crouch Potassium [Moles/Vol] 4.4 mmol/L Normal 3.5-5.1 [facility] Comment on above: Performed By: #### C MP, T4, TSH #### [facility] [address] [place] [address] Dr. Naz Crouch Protein [Mass/Vol] 7.0 g/dL Normal 6.4-8.2 [facility] Comment on above: Performed By: #### C MP, T4, TSH #### [facility] [address] [place] [address] Dr. Naz Crouch Sodium [Moles/Vol] 140 mmol/L Normal 136-145 [facility] Comment on above: Performed By: #### C MP, T4, TSH #### [facility] [address] [place] [address] Dr. Naz Crouch Urea nitrogen [Mass/Vol] 15.0 mg/dL Normal 7.0-18.0 [facility] Comment on above: Performed By: #### C MP, T4, TSH #### [facility] [address] [place] [address] Dr. Naz Crouch Urea nitrogen/Creatinine [Mass ratio] 16.9 mg/mg Normal [facility] Comment on above: Performed By: #### C MP, T4, TSH #### [facility] [address] [place] [address] Dr. Naz Crouch T4on 04-22-2022 T4 [Mass/Vol] 4.60 ug/dL Critically low 4.80-13.90 [facility] Comment on above: Performed By: #### C MP, T4, TSH #### [facility] [address] [place] [address] Dr. Naz Crouch TSHon 04-22-2022 TSH 2.208 uIU/mL Normal 0.358-3.74 0 [facility] Comment on above: Performed By: #### C MP, T4, TSH #### [facility] [address] [place] [address] Kidney WO and [...] Apr 06 2022 10:00A Dictated by: TARSHA TUKR MD This examination was interpreted and the report reviewed and electronically signed by: TARSHA TURK MD on Apr 06 2022 11:32AM EST Thank you for allowing us to participate in the care of your patient. Should there be any questions regarding this interpretation, please call [phone]. If you are unable to reach us at the number above, please feel free to contact [facility] at [phone]. DIVISION OF RADIOLOGY * * *Final Report* * * DATE OF EXAM: Apr 05 2022 2:16PM [facility] 0546 - CT KIDNEY WO/W [...] or blastic osseous abnormality. Lower thorax: Unremarkable. Assistant Product Manager (topogram) images: No additional findings. DIVISION OF RADIOLOGY Provider, [facility] - 04/06/2022 * * *Final Report* * * DATE OF EXAM: Apr 05 2022 2:16PM [facility] 0546 - CT KIDNEY WO/W [...] or blastic osseous abnormality. Lower thorax: Unremarkable. Assistant Product Manager (topogram) images: No additional findings. IMPRESSION IMPRESSION: [...] any questions regarding this interpretation, please call [phone]. If you are unable to reach us at the number above, please feel free to contact [facility] e[facility]iology at [phone]. [facility] CT Kidney WO and W contrast IVOrdered By: Ccf Provider on 04-06-2022 [facility] CREATININE BLDOrdered By: Am y White on 04-05-2022 Creatinine [Mass/Vol] 0.91 mg/dL 0.58 - 0.96 mg/dL [facility] GFR/1.73 sq M.predicted among non-blacks MDRD (S/P/Bld) [Vol rate/Area] 74 mL/min/{1.73_m2} - PINF [facility] Comment on above: Estimated Glomerular Filtration Rate [...] Interpretation and review of laboratory results Normal [facility] CT KIDNEY WO/W IVCONon 04-05 [facility] CT Kidney WO and W contrast Gabriela 04-05-2022 Radiology Study observation (narrative) [facility] XR CHEST 2V FRONTAL/LATon [facility] XR Chest PA and Lateralon IMPRESSION: No [...] any questions regarding this interpretation, please call [phone]. If you are unable to reach us at the number above, please feel free to contact [facility] eRadiology at [phone]. DIVISION OF RADIOLOGY * * *Final Report* [...] quadrant are noted. DIVISION OF RADIOLOGY Provider, [facility] - 04/05/2022 * * *Final Report* * [...] any questions regarding this interpretation, please call [phone]. If you are unable to reach us at the number above, please feel free to contact [facility] at [phone]. [facility] Radiology Study observation (narrative) [facility] XR Chest PA and LateralOrder ed By: [facility]cf Provider on 04-05-2022 [facility] Ambulatory Visit Summaryon 0 03-05-2022 Ambulatory Visit Summary ELMER ELLIS :1965 Visit Date:03/05/2022 Ambulatory Visit Instructions Your Diagnosis Right renal mass Incomplete bladder emptying Tests Performed Urnls Dip Stick Auto w/o Microscopy POC 63732 Your Care Team Attending Physician - Jluis [...] VENKAT SAWYER, Jluis Jacinto, URL When: Where: [address] [place] [id number]- Someone Will Contact You Regarding These Appointments [facility] [place] External Ambulatory Referral, Urology, [facility]. Renal mass, [...] Urnls Dip Stick Auto w/o Microscopy POC 71203 (03/05/2022) Bilirubin Urine Dipstick - 1+ Small Blood Urine Dipstick - Negative Glucose Urine Dipstick - 2+ 500 mg/dl Ketones Urine Dipstick - Trace - 5 mg/dl Leukocytes Urine Dipstick - Negative Nitrite Urine Dipstick - Negative Protein Urine Dipstick - 2+ (100 mg/dl) Specific [place] Urine Dipstick - >=1.030 Urine Appearance Urine [...] on the (more content not included)... Normal [facility] Patient Educationon 03-05-19 Patient Education Urology Renal [...] gives to you. In general: ? Take kuqx-evl-gajmgsk and prescription medicines only as told by [...] 09/04/2014 Document Revised: 03/16/2018 Document Reviewed: 03/16/2018 [employer] are family too Patient Education ? 2020 [place]. [facility] Urology Office/Clinic Noteon 03-05-2022 Urology Office/Clinic [...] R partial nephrectomy. External referral placed to [facility]. Pt. understands her use of [...] When Contact Information VENKAT SAWYER, Jluis Jacinto, [place] [address]- Additional Instructions: Referral for renal mass Patient [...] inactivated 11/21/2020 Recorde (more content not included)... [facility] Comment on above: Result Comment: Elec tronically Signed By: Jluis ROBLEDO MD\.br\Date and Time Signed: 03/05/22 11:17 EST\.br\Electronically Co-Signed By: Sophy Simmons\.br\Date and Time Co-Signed: 03/05/22 11:10 EST\.br\Electronically Co-Signed By: Sophy Simmons\.br\Date and Time Co-Signed: 03/05/22 11:11 EST Lab Reportson 02-05-2022 Lab Reports [id number]:127 [facility] RAD - CT Reporton 02-05-2022 RAD - CT Report [id number]#1.00CD:127 [facility] RAD - CT Report [id number]#1.00CD:[address] [facility] [address] ABD/PELV W CONon 02-03-20 CT [...] by: MICHOACANO MARTIN Date: 2022-02-02 08:28 Normal [facility] Reminderson 02-02-2022 Reminders - From: Tahmina Hanson To: EU - Recalls [place]; Sent: 07/29/2021 07:40:04 EDT Show up: 12/22/2021 07:40:00 EDT Subject: Ct scan Reminder/Recall Pt needs Ct scan ABD/Pelvis with contrast prior to Jan appt will send order to [facility]. [facility] never received her order will re fax to [facility] nothing at [facility] yet and unable to get ahold of CS pt will call to schedule she doesnt have insurance. CT done 02/01/2022 at [facility] will drop results into pt's chart has f/u 03/01/2022 Normal [facility] CREATININEon 02-01-2022 Creatinine [Mass/Vol] 1.00 mg/dL Normal 0.55-1.02 [facility] Comment on above: Performed By: #### C SERGEY #### [facility] [address] [address] [address] Naz Crouch EGFR-AF MALAWIAN >60 Normal >=60 [facility] Comment on above: Performed By: #### C SERGEY #### [facility] [id number] Naz Crouch EGFR-NON AF MALAWIAN 57 mL/min/1.73m2 Critically low >=60 [facility] Comment on above: Performed By: #### C SERGEY #### [facility] [id number] Naz Crouch Physician Orderon 01-11-2022 Physician Order [id number]:127 Normal [facility] CNOVon 11-09-2021 CNOV Office Visit (AGPOB1 ) ELMER ELLIS ([id number]) 1965 F Date Time Provider Department 11/09/21 [...] mg by mouth twice daily. MV with Frp-Iymrycpa-Dyuhfz (CENTRUM SILVER) 0.4 mg-300 mcg- 250 mcg tab Take by mouth. insulin 75/25 lispro protamine/lispro units/mL (HUMALOG MIX 75-25,U-100,INSULN) 100 units/mL susp as directed. HYDROcodone-acetaminophen (NORCO) 5-325 mg per tablet hydrocodone 5 mg-acetaminophen 325 mg tablet TAKE 1 TO 2 TABLETS BY MOUTH EVERY DAY AT BEDTIME NEEDED cqemaxdl-jgd-ziju-FA-lutein (CENTRUM SILVER WOMEN) 8 mg iron-400 mcg-300 [...] been ambula (more content not included)... Normal [facility] Osvaldo 10-13-2021 [place] Telephone (AGPOB1) RHONDAELMER Asif ([id number]) 1965 F Date Time Provider Department 10/13/21 LILLY TONY During your visit today, we recorded the following information about you: Filomena John 10/13/2021 11:24 AM Signed Received voicemail from [...] bear any weight. Patient has taken 1 Jenkinjones about an hour ago and said it [...] by mouth twice daily. - MV with Bsd-Ptgjbdfn-Hoezij (CENTRUM SILVER) 0.4 mg-300 mcg- 250 mcg tab Take by mouth. - insulin 75/25 lispro protamine/lispro units/mL (HUMALOG MIX 75-25,U-100,INSULN) 100 units/mL susp as directed. - HYDROcodone-acetaminophen (NORCO) 5-325 mg per tablet hydrocodone 5 mg-acetaminophen 325 mg tablet TAKE 1 TO 2 TABLETS BY MOUTH EVERY DAY AT BEDTIME NEEDED - hxonxvnj-ffh-oiri-FA-lutein (CENTRUM SILVER WOMEN) 8 mg iron-400 mcg-300 [...] by FILOMENA MADRIGAL [facility] Office Visit (AGPOB1 ) ELMER ELLIS ([id number]) 1965 F Date Time Provider Department 10/12/21 [...] mg by mouth twice daily. MV with Nhc-Sehrimhc-Uafdzg (CENTRUM SILVER) 0.4 mg-300 mcg- 250 mcg tab Take by mouth. insulin 75/25 lispro protamine/lispro units/mL (HUMALOG MIX 75-25,U-100,INSULN) 100 units/mL susp as directed. HYDROcodone-acetaminophen (NORCO) 5-325 mg per tablet hydrocodone 5 mg-acetaminophen 325 mg tablet TAKE 1 TO 2 TABLETS BY MOUTH EVERY DAY AT BEDTIME NEEDED vflalfwg-ale-fpgt-FA-lutein (CENTRUM SILVER WOMEN) 8 mg iron-400 mcg-300 [...] fracture sustaine (more content not included)... Normal [facility] CNOVon 09-21-2021 CNOV Office Visit (AGPOB1 ) ELMER ELLIS ([id number]) 1965 F Date Time Provider Department 09/21/21 [...] with nonweightbearing status. She will occasionally take Jenkinjones for pain relief which is effective. She is also supplemented with wurv-qcm-vysdzfb pain medications. Her medical history significant for Beatties, coronary artery disease, diabetes and associated lower extremity neuropathy, DVT requiring Plavix and Xarelto for anticoagulation. 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 She also has kidney cancer that is [...] by mouth twice daily. - MV with Khk-Ytdfkzmi-Oghmnn (CENTRUM SILVER) 0.4 mg-300 mcg- 250 mcg tab Take by mouth. - insulin 75/25 lispro protamine/lispro units/mL (HUMALOG MIX 75-25,U-100,INSULN) 100 units/mL susp as directed. - HYDROcodone-acetaminophen (NORCO) 5-325 mg per tablet hydrocodone 5 mg-acetaminophen 325 mg tablet TAKE 1 TO 2 TABLETS BY MOUTH EVERY DAY AT BEDTIME NEEDED - fybewixp-akq-mqwa-FA-lutein (CENTRUM SILVER WOMEN) 8 mg iron-400 mcg-300 [...] lateral med (more content not included)... [facility] RHONDAELMER Asif ([id number]) 1965 F Date Time Provider Department 09/16/21 [facility] AGB1 During your visit today, we recorded the following information about you: Jared Alcantar Pouncer [facility] 09/16/2021 9:05 AM Signed ----- Message from Peggy Saxena sent at 09/15/2021 4:27 PM EDT ----- Regarding: Orthopedics / Open Ankle: Fracture Broken / Recent ED Visit Contact: Patient has been identified by name and Date of (Y/N): y Patient: Elmer Ordoñezmalena Date of : 1965 Previous Provider Seen: n/a Body Part(s) Identified: Left Ankle Diagnosis/Reason For Visit: Left Ankle /knee / Fell Pain Reason for the call/escalation: Medial malleolar fracture Closed fracture of proximal end of left fibula, unspecified fracture morphology, initial encounter If reason for call/escalation is discharge from ED/ER or Hospital, which facility was the patient seen at: [facility] / 09.12.2021 Was an appointment scheduled (Y/N): n Person calling if other than patient: n Return call to if other than patient: n Best contact number: [phone] Thank you, Peggy Saxena September 15, 2021 4:27 PM [facility] 09/16/2021 10:18 AM Signed Called and spoke [...] agreeable to appointment date, time and location. [facility] September 16, 2021 10:18 AM Allergies As of Date: 09/16/2021 (No Known Allergies) Date Reviewed: 09/12/2021 Reviewed by: Joi Mariscal RN - Fully Assessed Reason for Visit: ER F/U [41] Problem List As Of Date: 09/16/2021 (None) Encounter Status:Closed by ERIKA METAL TREATER JARED GARCIA on 09/16/21 [facility] 09-12-2021 [facility] HNO ID: [id number] Author: RT Herman(Orville) Service: Radiology Author Type: [...] RT Herman(R) September 12, 2021 2:38 PM [facility] HNO ID: [id number] Author: RT Alexandra(R) Service: Radiology Author Type: [...] RT Alexandra(R) September 12, 2021 12:21 PM [facility] CONSULTon 09-12-2021 CONSULT HNO ID: [id number] Author: Stoney Bauer MD Service: Orthopaedic Surgery Author Type: Resident Type: Consults Filed: 09/12/2021 11:43 PM Note Text: Attestation signed by Lilly Tony MD at 09/13/2021 6:54 PM Lilly Tony M.D. Attending Staff, Department of Orthopedic Surgery [facility] Orthopaedic Surgery Consultation Note Reason for [...] in the last 72 hours. Invalid input(s): [facility] Imaging XR of left tib/fib, ankle, [...] MD September 12, 2021 11:43 PM Normal [facility] ED NOTEon 09-12-2021 ED NOTE HNO ID: [id number] Author: Joi Mariscal RN Service: Emergency Medicine Author Type: Registered Nurse Type: ED Notes Filed: 09/12/2021 11:13 AM Note Text: X-ray notified pt ready for imaging. Normal [facility] ED PROV NOTEon 09-12-2021 ED PROV NOTE HNO ID: [id number] Author: Alexander Velázquez APRN.CARLO Service: Emergency Medicine [...] pain medication and follow up with her orthopedic coder that she already has seen previous. Patient in no acute distress vitals are stable. RETURN PRECAUTIONS Patient discharged from the Emergency Department. I do not feel that the patient's evaluation reveals any acute reason for admission at this time. I instructed them to either follow up with their primary care physicia (more content not included)... Normal [facility] XR ANKLE 1V LTon 09-12-2021 [...] alignment is otherwise stable. IMPRESSION: See above. Splicing Technician: LILLY Transcribe Date/Time: Sep 12 2021 2:45P Dictated by : KEN MCKEON MD This examination was interpreted and the report reviewed and electronically signed by: KEN MCKEON MD on Sep 12 2021 2:46PM EST [id number] Normal [facility] XR ANKLE 3V AP/LAT/OBL LTon [...] Left foot first proximal phalangeal head fracture. Splicing Technician: LILLY Transcribe Date/Time: Sep 12 2021 12:54P Dictated by : MOE SINGH MD This examination was interpreted and the report reviewed and electronically signed by: MOE SINGH MD on Sep 12 2021 1:00PM EST [id number] Normal [facility] XR FOOT 3V AP/LAT/OBL LTon [...] Left foot first proximal phalangeal head fracture. Splicing Technician: LILLY Transcribe Date/Time: Sep 12 2021 12:54P Dictated by : MOE SINGH MD This examination was interpreted and the report reviewed and electronically signed by: MOE SINGH MD on Sep 12 2021 1:00PM EST [id number] Normal [facility] XR KNEE 2V AP/LAT LTon [...] Left foot first proximal phalangeal head fracture. Splicing Technician: PSCB Transcribe Date/Time: Sep 12 2021 12:54P Dictated by : MOE SINGH MD This examination was interpreted and the report reviewed and electronically signed by: MOE SINGH MD on Sep 12 2021 1:00PM EST [id number] Normal [facility] XR TIBIA FIBULA 2V AP/LAT [...] change regarding proximal fibular fracture. No dislocation. Splicing Technician: LILLY Transcribe Date/Time: Sep 12 2021 3:23P Dictated by : NIMCO GREEN MD This examination was interpreted and the report reviewed and electronically signed by: NIMCO GREEN MD on Sep 12 2021 3:27PM EST [id number] Normal [facility] Formson 07-29-2021 Forms [id number]:127 Normal [facility] Physician Referralon 022 Physician Referral [id number]:127 Normal [facility] RAD - CT Reporton 07-29-2021 RAD - CT Report [id number]:127 Normal [facility] Ambulatory Visit Summaryon 0 07-27-2021 Ambulatory [...] Schedule the Following Appointments Follow Up with EVNKAT SAWYER, RAPHAEL Jimenez When: In 6 months 01/26/2022 EST Comments: [address] scan Where: [facility] [address], [place] [address]- [phone] Medications What How Much When Instructions Unchanged [...] about calorie (more content not included)... Normal [facility] Patient Educationon 07-28-19 Patient Education Nutrition Calorie [...] could (more content not included)... Normal [facility] Urology Office/Clinic Noteon 07-27-2021 Urology Office/Clinic Note Chief Complaint new pt referred for renal mass HPI Staff Elmer is a 55yr old new pt referred for Renal mass. Pt had CT of ABD/pel done at [facility] on 06/15/21. pt says she feels [...] months 01/26/2022 EST [facility] [address] , [place] [address]- [phone] Additional Instructions: [address] scan Patient Education Renal Mass Calorie Counting for Weight Loss I, Tahmina Hanson, personally scribed for Dr. Robledo on 07/27/2021 [...] SubCutaneous, BIDAC (more content not included)... Normal [facility] Comment on above: Result Comment: Elec tronically Signed By: VENKAT SAWYER, Jluis Jacinto\.br\Date and Time Signed: 07/27/21 10:26 EDT\.br\Electronically Co-Signed By: Tahmina Hanson.br\Date and Time Co-Signed: 07/27/21 10:21 EDT GLUCOSE METERon 12-16-2020 Glucose [Mass/Vol] 216 mg/dL High 70-99 [facility] Comment on above: Result Comment: Fast ing GLUCOSE reference range has been updated per (ADA) [place] [employer]'s recommendation. 05/16/2018 Physician notified Performed By: #### L 500.17772 #### Test performed at: [place] [id number] [place] [address] Glucose [Mass/Vol] 273 mg/dL High 70-99 [facility] Comment on above: Result Comment: Fast ing GLUCOSE reference range has been updated per (ADA) [place] [employer]'s recommendation. 05/16/2018 Physician notified Performed By: #### L 500.60867 #### Test performed at: [place] [address] OPERATIVE REPORTon OPERATIVE REPORT NAME: BRIAN ELLIS MR#: [id number] SURGEON: Malik Encarnacion DO DATE OF SURGERY: [...] up in 2 weeks. MALIK ENCARNACION DO GF/MODL/[id number] E/S: Malik Encarnacion DO 12/24/20 1255 Electronically Signed [facility] PT NAME: ELMER ELLIS MR#: [id number] [address] [place] [address] ACCT: [id number] : 65 OPERATIVE REPORT Normal [facility] MRI LUMBAR SP W & WO CONTRAS Ton 11-12-2020 MRI LUMBAR SP W & WO CONTRAST STUDY: MRI LUMBAR SP W WO CONTRAST; 11/12/2020 11:18 am INDICATION: LUMBAR POST-LAMINECTOMY SYNDROME. COMPARISON: Lumbar radiographs dated 09/02/2020 and MRI lumbar spine dated 10/31/2019. ACCESSION NUMBER(S): [id number] ORDERING CLINICIAN: Farhan Celeste TECHNIQUE: Multiplanar multisequence [...] granulation tissue components is again evident. Normal [facility] MRI LOW EXT ANY JNT WO CON L Ton 10-29-2020 MRI LOW EXT ANY JNT WO CON LT STUDY: MRI LOW EXT ANY JNT WO CON LT; ; 10/29/2020 11:42 am INDICATION: LEFT HIP PAIN. COMPARISON: None. ACCESSION NUMBER(S): [id number] ORDERING CLINICIAN: Farhan Celeste TECHNIQUE: MR imaging [...] hamstring tendinosis. No acute abnormality seen Normal [facility] LUMB SP COMP W FLEX/EXT 6 VW Son 09-02-2020 LUMB SP COMP W FLEX/EXT 6 VWS STUDY: LUMB SP COMP W FLEX/EXT 6 VWS ; 09/02/2020 11:01 am INDICATION: PAIN. COMPARISON: 10/17/2019 ACCESSION NUMBER(S): [id number] ORDERING CLINICIAN: Farhan Celeste FINDINGS: No acute [...] of the lumbar spine without instability. Normal [facility] MRA HEAD WO CONTRASTon 07-26 MRA HEAD WO CONTRAST [facility] Department of Radiology [address] [place] [id number] Patient Name: ELMER ELLIS : 1965 Sex: F Age: Race: White Pt. Location: 30 Patient Status: D Ordered Date: 06/17/2020 10:35:00 AM Completed Date: 07/26/2020 10:58 AM Requesting Provider: MALIK BENAVIDES V Attending Provider: MALIK BENAVIDES V Report Copy To: Signs & Symptoms: H93.A3 Pulsatile tinnitus, bilateral I10 History: [place] X1 Stent, R Leg, [facility] April 2020 [facility] auth# [id number] 06/25/20-08/09/20 *ER Comments: evaluate Exam: MRA HEAD [...] canals given the limitations of a large xcvkc-jy-smwi imaging. IMPRESSION: * No aneurysm, thrombus or hemodynamically significant stenosis in the cerebral arteries. Electronically signed: Sharona Carrillo M.D.. Transcribed by: [email or web address], User Resident: Electronically Signed by: SHARONA CARRILLO @ 07/29/2020 08:07 AM Normal [facility] Comment on above: Order Comment: evalu ate MRI BRAIN WO CONTRASTon 06-0 MRI BRAIN WO CONTRAST [facility] Department of Radiology [address] [place] [address] Patient Name: ELMER ELLIS : 1965 Sex: F Age: Race: White Pt. Location: 30 Patient Status: D Ordered Date: 06/17/2020 10:35:00 AM Completed Date: 07/26/2020 10:58 AM Requesting Provider: MALIK BENAVIDES V Attending Provider: MALIK BENAVIDES V Report Copy To: Signs & Symptoms: H93.A3 Pulsatile tinnitus, bilateral I10 History: [place] X1 Stent, R Leg, [facility] April 2020 [facility] AUTH # [id number] 06/24/2020-08/08/2020 [id number] / Comments: evaluate Exam: MRI BRAIN WO [...] well as the dural venous sinuses. Large qzpeu-ib-wzia evaluation of the internal auditory canals is negative for mass. IMPRESSION: * No acute intracranial findings. * Scattered, mild burden of nonspecific T2 weighted/FLAIR hyperintensities. Differential diagnosis includes sequelae of chronic small vessel ischemic disease, Lyme disease, vasculitis, chronic migraines, among others. Electronically signed: Sharona Carrillo M.D.. Transcribed by: [email or web address], User Resident: Electronically Signed by: SHARONA CARRILLO @ 07/29/2020 07:57 AM Normal [facility] Comment on above: Order Comment: evalu ate Vital Signs Date Time Vital Sign Value Performing Clinician Facility 04-30-2024 13:05-0400 Body height 162.6 cm Dori Wesley NP Work Phone: [facility] 04-30-2024 13:05-0400 Body mass index (BMI) [Ratio] 27.12 kg/m2 Dori Wesley NP Work Phone: [facility] 04-30-2024 13:05-0400 Body weight 71.67 kg Dori Wesley CARVING MACHINE OPERATOR Work Phone: [facility] 04-17-2024 13:05-0500 Body mass index (BMI) [Ratio] 48.78 kg/m2 Jenny Borrego CARVING MACHINE OPERATOR Work Phone: [facility] 04-17-2024 13:05-0500 Body temperature 98.71 [degF] Jenny Araujojuany CARVING MACHINE OPERATOR Work Phone: [facility] 04-17-2024 13:05-0500 Body weight 128.91 kg Jenny Borrego CARVING MACHINE OPERATOR Work Phone: [facility] 04-17-2024 13:05-0500 Diastolic blood pressure 72 mm[Hg] Jenny Araujojuany CARVING MACHINE OPERATOR Work Phone: [facility] 04-17-2024 13:05-0500 Heart rate 76 /min Jenny Mylesscarletternestojuany CARVING MACHINE OPERATOR Work Phone: [facility] 04-17-2024 13:05-0500 Respiratory rate 20 /min Jenny Borrego CARVING MACHINE OPERATOR Work Phone: [facility] 04-17-2024 13:05-0500 SaO2% (BldA) [Mass fraction] 97 % Jenny Borrego CARVING MACHINE OPERATOR Work Phone: [facility] 04-17-2024 13:05-0500 Systolic blood pressure 120 mm[Hg] Jenny Marinoaries CARVING MACHINE OPERATOR Work Phone: [facility] 01-16-2024 13:50-0500 Body height 162.6 cm Jenny Borrego CARVING MACHINE OPERATOR Work Phone: [facility] 01-16-2024 13:50-0500 Body mass index (BMI) [Ratio] 47.82 kg/m2 Jenny Borrego CARVING MACHINE OPERATOR Work Phone: [facility] 01-16-2024 13:50-0500 Body temperature 98.1 [degF] Jenny Salima CARVING MACHINE OPERATOR Work Phone: [facility] 01-16-2024 13:50-0500 Body weight 126.37 kg Jenny Borrego CARVING MACHINE OPERATOR Work Phone: [facility] Comment on above: with right boot 01-16-2024 13:50-0500 Diastolic blood pressure 76 mm[Hg] Jenny Araujoz CARVING MACHINE OPERATOR Work Phone: [facility] 01-16-2024 13:50-0500 Heart rate 69 /min Jennymagalis Araujoz CARVING MACHINE OPERATOR Work Phone: [facility] 01-16-2024 13:50-0500 Respiratory rate 19 /min Jenny Shamekahholz CARVING MACHINE OPERATOR Work Phone: [facility] 01-16-2024 13:50-0500 SaO2% (BldA) [Mass fraction] 97 % Jennymagalis Araujoz CARVING MACHINE OPERATOR Work Phone: [facility] 01-16-2024 13:50-0500 Systolic blood pressure 110 mm[Hg] Jenny Marinoholz CARVING MACHINE OPERATOR Work Phone: [facility] 12-14-2023 14:50-0400 Body height 162.6 cm Kendell Mahogany DO Work Phone: [facility] 12-14-2023 14:50-0400 Body mass index (BMI) [Ratio] 46.86 kg/m2 Kendell Mahogany DO Work Phone: [facility] 12-14-2023 14:50-0400 Body weight 123.83 kg Kendell Mahogany DO Work Phone: [facility] 12-14-2023 14:50-0400 Diastolic blood pressure 78 mm[Hg] Kendell Mahogany DO Work Phone: [facility] 12-14-2023 14:50-0400 Heart rate 74 /min Kendell Mahogany DO Work Phone: [facility] 12-14-2023 14:50-0400 SaO2% (BldA) [Mass fraction] 94 % Kendell Mahogany DO Work Phone: [facility] 12-14-2023 14:50-0400 Systolic blood pressure 104 mm[Hg] Kendell Vides DO Work Phone: [facility] 10-20-2023 14:07-0400 Body height 162.6 cm Jenny Borrego CARVING MACHINE OPERATOR Work Phone: [facility] 10-20-2023 14:07-0400 Body mass index (BMI) [Ratio] 47.68 kg/m2 Jennymagalis Mylesjennyz CARVING MACHINE OPERATOR Work Phone: [facility] 10-20-2023 14:07-0400 Body temperature 98.01 [degF] Jenny Jamilaholz CARVING MACHINE OPERATOR Work Phone: [facility] 10-20-2023 14:07-0400 Body weight 126.01 kg Jennymagalis Marinoernestoz CARVING MACHINE OPERATOR Work Phone: [facility] 10-20-2023 14:07-0400 Diastolic blood pressure 78 mm[Hg] Jennymagalis Marinoholz CARVING MACHINE OPERATOR Work Phone: [facility] 10-20-2023 14:07-0400 Heart rate 74 /min Jenny Shamekahholz CARVING MACHINE OPERATOR Work Phone: [facility] 10-20-2023 14:07-0400 Respiratory rate 19 /min Jennymagalis Marinoholz CARVING MACHINE OPERATOR Work Phone: [facility] 10-20-2023 14:07-0400 SaO2% (BldA) [Mass fraction] 97 % Jennymagalis Mylesscarlettholz CARVING MACHINE OPERATOR Work Phone: [facility] 10-20-2023 14:07-0400 Systolic blood pressure 118 mm[Hg] Jenny Shamekahholz CARVING MACHINE OPERATOR Work Phone: [facility] 03-24-2023 16:45-0500 Body height 162.6 cm Jennymagalis Mylesscarlettholz CARVING MACHINE OPERATOR Work Phone: [facility] 03-24-2023 16:45-0500 Body mass index (BMI) [Ratio] 45.93 kg/m2 Jenny Shamekascarlettholz CARVING MACHINE OPERATOR Work Phone: [facility] 03-24-2023 16:45-0500 Body temperature 97.11 [degF] Jenny Shamekajennyz CARVING MACHINE OPERATOR Work Phone: [facility] 03-24-2023 16:45-0500 Body weight 121.38 kg Jenny Aichholz CARVING MACHINE OPERATOR Work Phone: [facility] 03-24-2023 16:45-0500 Diastolic blood pressure 70 mm[Hg] Jenny Aichholz CARVING MACHINE OPERATOR Work Phone: [facility] 03-24-2023 16:45-0500 Heart rate 76 /min Jenny Aichholz CARVING MACHINE OPERATOR Work Phone: [facility] 03-24-2023 16:45-0500 Respiratory rate 20 /min Jenny Aichholz CARVING MACHINE OPERATOR Work Phone: [facility] 03-24-2023 16:45-0500 SaO2% (BldA) [Mass fraction] 97 % Jenny Gaylez CARVING MACHINE OPERATOR Work Phone: [facility] 03-24-2023 16:45-0500 Systolic blood pressure 112 mm[Hg] Jenny Aichholz CARVING MACHINE OPERATOR Work Phone: [facility] 10-15-2022 12:17-0400 Body weight 117.03 kg Lex Pickens MD Work Phone: [facility] 07-30-2022 09:06-0400 Body temperature 97.8 [degF] DO Dawit House Work Phone: [facility] 07-30-2022 09:06-0400 Body weight 115.66 kg DO [facility] Work Phone: [facility] 07-30-2022 09:06-0400 Diastolic blood pressure 72 mm[Hg] DO [facility] Work Phone: [facility] 07-30-2022 09:06-0400 Heart rate 82 /min DO [facility] Work Phone: [facility] 07-30-2022 09:06-0400 Respiratory rate 16 /min DO [facility] Work Phone: [facility] 07-30-2022 09:06-0400 SaO2% (BldA) [Mass fraction] 97 % DO [facility] Work Phone: [facility] 07-30-2022 09:06-0400 Systolic blood pressure 128 mm[Hg] DO [facility] Work Phone: [facility] 06-16-2022 09:38-0400 Body height 162.56 cm DO [facility] Work Phone: [facility] 06-02-2022 15:31-0400 Diastolic blood pressure 66 mm[Hg] DO [facility] Work Phone: [facility] 06-02-2022 15:31-0400 Heart rate 81 /min DO [facility] Work Phone: [facility] 06-02-2022 15:31-0400 Respiratory rate 18 /min DO Dawit Synchris Work Phone: [facility] 06-02-2022 15:31-0400 SaO2% (BldA) [Mass fraction] 96 % DO Dawit Ba Work Phone: [facility] 06-02-2022 15:31-0400 Systolic blood pressure 114 mm[Hg] DO [facility] Work Phone: [facility] 06-02-2022 15:01-0400 Inhaled oxygen flow rate 8 L/min DO Dawit Synchris Work Phone: [facility] 06-02-2022 12:09-0400 Body height 162.56 cm DO [facility] Work Phone: [facility] 06-02-2022 12:09-0400 Body temperature 98.7 [degF] DO [facility] Work Phone: [facility] 06-02-2022 12:09-0400 Body weight 117.93 kg DO [facility] Work Phone: [facility] 03-16-2022 13:36-0500 Body height 162.6 cm Lex Pickens MD Work Phone: [facility] 03-16-2022 13:36-0500 Body weight 120.2 kg Lex Pickens MD Work Phone: [facility] 03-16-2022 13:36-0500 Diastolic blood pressure 80 mm[Hg] Lex Pickens MD Work Phone: [facility] 03-16-2022 13:36-0500 Heart rate 87 /min Lex Pickens MD Work Phone: [facility] 03-16-2022 13:36-0500 Systolic blood pressure 128 mm[Hg] Lex Pickens MD Work Phone: [facility] 10-12-2021 12:53-0400 Body height 162.6 cm Lilly Tony MD Work Phone: [facility] 10-12-2021 12:53-0400 Body weight 117.94 kg Lilly Tony MD Work Phone: [facility] 10-12-2021 12:53-0400 Respiratory rate 20 /min Lilly Tony MD Work Phone: [facility] 07-27-2021 09:31-0400 Blood Pressure Location Jluis ROBLEDO [facility] 07-27-2021 09:31-0400 Diastolic blood pressure 73 mm[Hg] Jluis ROBLEDO [facility] 07-27-2021 09:31-0400 Heart rate 89 /min Jluis ROBLEDO [facility] 07-27-2021 09:31-0400 Systolic blood pressure 120 mm[Hg] Jluis ROBLEDO [facility] Encounters Encounter Date Encounter Type Care Provider Facility Start: 04-30-2024 Encounter for other preprocedural examination DORI WESLEY [facility] Start: 04-30-2024 End: 04-30-2024 External Result Encounter Dori Wesley CARVING MACHINE OPERATOR Work Phone: [facility] External Department Unsolicited Start: 04-30-2024 End: 04-30-2024 External Result Encounter Dori Wesley CARVING MACHINE OPERATOR Work Phone: [facility] External Department Unsolicited Start: 04-30-2024 End: 04-30-2024 Patient encounter procedure Dori Wesley CARVING MACHINE OPERATOR Work Phone: [facility] Comment on above: Preop examination (P rimary Dx); Complex tear of medial meniscus of right knee, unspecified whether old or current tear, subsequent encounter Start: 04-30-2024 End: 04-30-2024 Preprocedural examination done Dori Wesley CARVING MACHINE OPERATOR Work Phone: [facility] Work Phone: Start: 04-30-2024 End: 04-30-2024 ambulatory DORI WESLEY Not Available Start: 04-27-2024 End: 04-27-2024 ambulatory [facility] Start: 04-27-2024 End: 04-27-2024 Encounter for other preprocedural examination [facility] Start: 04-25-2024 End: 04-25-2024 Orders Only oDri Wesley NEW AUTOS DELIVERY DRIVER-WEB PROJECT MANAGER Work Phone: [facility] Comment on above: Encounter for other preprocedural examination Start: 04-25-2024 End: 04-25-2024 Patient encounter status Dori Wesley NEW AUTOS DELIVERY DRIVER-WEB PROJECT MANAGER Work Phone: [facility] Start: 04-18-2024 Preoperative state Dori Wesley CARVING MACHINE OPERATOR Work Phone: [facility] Start: 04-17-2024 End: 04-17-2024 ambulatory JENNY BORREGO Not Available Start: 04-17-2024 End: 04-17-2024 Patient encounter procedure Jenny Salima CARVING MACHINE OPERATOR Work Phone: [facility] Comment on above: Encounter for annual wellness visit (AWV) in Medicare patient (Primary Dx); Malignant neoplasm of unspecified kidney, except renal pelvis ([facility]/HCC); Type 2 diabetes mellitus with diabetic chronic kidney disease ([facility]); Chronic kidney disease, stage 3a (HCC) ([facility]); Morbid (severe) obesity due to excess calories ([facility]); Body mass index (BMI) 45.0-49.9, adult ([facility]); Type 2 diabetes mellitus with diabetic neuropathy, with long-term current use of insulin ([facility]); Unspecified chronic bronchitis ([facility]); CAD in [place] artery ([facility] PAD (peripheral artery disease) ([facility]); Primary hypertension ([facility]); Bilateral lower extremity edema; Age-related osteoporosis without current pathological fracture ([facility]); Class 3 severe obesity due to excess calories with serious comorbidity and body mass index (BMI) of 45.0 to 49.9 in adult ([facility]); Type 2 diabetes mellitus with retinopathy of both eyes, with long-term current use of insulin, macular edema presence unspecified, unspecified retinopathy severity ([facility]); Type 2 diabetes mellitus with insulin therapy ([facility]); Anxiety and depression ([facility]); Encounter for screening mammogram for malignant neoplasm of breast; Tobacco user; Mixed hyperlipidemia ([facility]); Environmental and seasonal allergies; Gastroesophageal reflux disease without esophagitis; Factor V Leiden ([facility]) Start: 04-13-2024 End: 04-18-2024 Telephone encounter Jr. Malik Beal DO Work Phone: [facility] Start: 04-06-2024 End: 04-06-2024 Bambomirna Satori Brandsruth Beal DO Work Phone: [facility] Start: 04-06-2024 End: 04-06-2024 BamUni-Pixelo Satori Brandsruth Beal DO Work Phone: [facility] Start: 04-06-2024 End: 04-06-2024 Office outpatient visit 40 minutes Jr. Malik Beal DO Work Phone: [facility] Comment on above: Acute pain of right knee (Primary Dx); Complex tear of medial meniscus of right knee, unspecified whether old or current tear, initial encounter Start: 04-06-2024 End: 04-06-2024 ambulatory MALIK PEREZ Not Available Start: 03-24-2024 End: 03-24-2024 Refill Jenny Aichholz CARVING MACHINE OPERATOR Work Phone: [facility] Comment on above: Type 2 diabetes netta itus with insulin therapy ([facility]) (Primary Dx) Start: 03-19-2024 End: 03-20-2024 Refill Jenny Aichholz CARVING MACHINE OPERATOR Work Phone: [facility] Comment on above: Type 2 diabetes netta itus with diabetic neuropathy, with long- term current use of insulin ([facility]) Start: 03-15-2024 End: 03-15-2024 Refill Jenny Aichholz CARVING MACHINE OPERATOR Work Phone: [facility] Comment on above: Atherosclerotic hear t disease of [place] coronary artery without angina pectoris ([facility]) Start: 03-11-2024 End: 03-11-2024 Refill Jenny Aichholz CARVING MACHINE OPERATOR Work Phone: [facility] Comment on above: Anemia, unspecified; Type 2 diabetes mellitus without complications ([facility]) Start: 03-09-2024 End: 03-09-2024 Bamboo flowsheet Malik Beal DO Work Phone: [facility] Start: 03-09-2024 End: 03-09-2024 Bamboo flowsheet Davey Malik Beal DO Work Phone: [facility] Start: 03-09-2024 End: 03-09-2024 Office outpatient visit 25 minutes Jr. Malik Beal DO Work Phone: [facility] Comment on above: Acute pain of right knee (Primary Dx); Ruptured, tendon, Achilles, right, subsequent encounter; Primary osteoarthritis of right knee Start: 03-09-2024 End: 03-09-2024 ambulatory ., MALIK BEAL Not Available Start: 02-28-2024 End: 03-05-2024 Telephone encounter Ben Raymond PT Work Phone: [facility] Comment on above: PT Initial Eval; fu (Tried patient, tried , and was only able to lm w/ daughter. 3rd attempt); No responce Start: 02-27-2024 End: 02-27-2024 Bamboo flowsheet Dori Wesley CARVING MACHINE OPERATOR Work Phone: [facility] Start: 02-27-2024 End: 02-27-2024 Bamboo flowsheet Dori Wesley CARVING MACHINE OPERATOR Work Phone: [facility] Start: 02-27-2024 End: 02-27-2024 Office outpatient visit 25 minutes Dori Wesley CARVING MACHINE OPERATOR Work Phone: [facility] Comment on above: Primary osteoarthrit is of right knee (Primary Dx); Acute pain of right knee; Ruptured, tendon, Achilles, right, subsequent encounter; Complex tear of medial meniscus of right knee, unspecified whether old or current tear, initial encounter; Complex tear of lateral meniscus of right knee, unspecified whether old or current tear, initial encounter Start: 02-27-2024 End: 02-27-2024 ambulatory DORI WESLEY Not Available Start: 02-21-2024 End: 02-21-2024 ambulatory DEONNA Mccray APLING Not Available Start: 02-20-2024 End: 02-21-2024 Refill Jenny Borrego CARVING MACHINE OPERATOR Work Phone: [facility] Comment on above: Factor V Leiden (CMS /HCC); Hypertriglyceridemia (CMS/HCC) Start: 02-09-2024 End: 02-09-2024 ambulatory DEONNA B APLING Not Available Start: 02-08-2024 End: 02-13-2024 Telephone encounter Deonna Finn CARVING MACHINE OPERATOR Work Phone: [facility] Start: 01-30-2024 End: 01-30-2024 Bamboo flowsheet Deonna Finn CARVING MACHINE OPERATOR Work Phone: [facility] Start: 01-30-2024 End: 01-30-2024 Bamboo flowsheet Deonna Mccray Christieyinka CARVING MACHINE OPERATOR Work Phone: [facility] Start: 01-30-2024 End: 01-30-2024 Office outpatient visit 15 minutes Deonna Mccray Christieyinka CARVING MACHINE OPERATOR Work Phone: [facility] Comment on above: Ruptured, tendon, Ac hilles, right, subsequent encounter (Primary Dx) Start: 01-30-2024 End: 01-30-2024 ambulatory DEONNA FINN Not Available Start: 01-25-2024 End: 01-25-2024 ambulatory KENDELL VIDES Not Available Start: 01-16-2024 End: 01-16-2024 Bamboo flowsheet Jennymagalis Borrego CARVING MACHINE OPERATOR Work Phone: [facility] Start: 01-16-2024 End: 01-16-2024 Bamboo flowsheet Jenny Aicharies CARVING MACHINE OPERATOR Work Phone: [facility] Start: 01-16-2024 End: 01-16-2024 ambulatory JENNY AICHHOLZ Not Available Start: 01-16-2024 End: 01-16-2024 Office outpatient visit 25 minutes Jenny Salima CARVING MACHINE OPERATOR Work Phone: [facility] Comment on above: Type 2 diabetes netta itus with diabetic neuropathy, with long- term current use of insulin ([facility]) (Primary Dx); Type 2 diabetes mellitus with diabetic chronic kidney disease ([facility]); Chronic kidney disease, stage 3a ([facility]) ([facility]); ELENA (obstructive sleep apnea); PAD (peripheral artery disease) ([facility]); CAD in [place] artery ([facility]); Gastroesophageal reflux disease without esophagitis; Primary hypertension ([facility]); Type 2 diabetes mellitus with insulin therapy ([facility]); Class 3 severe obesity with serious comorbidity and body mass index (BMI) of 45.0 to 49.9 in adult, unspecified obesity type ([facility]); Type 2 diabetes mellitus with retinopathy of both eyes, with long-term current use of insulin, macular edema presence unspecified, unspecified retinopathy severity ([facility]); Factor V Leiden ([facility]); Encounter for screening mammogram for malignant neoplasm of breast Start: 01-10-2024 End: 01-11-2024 Refill eJnny Borrego CARVING MACHINE OPERATOR Work Phone: [facility] Comment on above: Chronic back pain, u nspecified back location, unspecified back pain laterality; Environmental and seasonal allergies; Type 2 diabetes mellitus with diabetic neuropathy, with long-term current use of insulin ([facility]) Start: 12-20-2023 End: 12-20-2023 Bamboo flowsheet Lisette Cummins DO Work Phone: [facility] Start: 12-20-2023 End: 12-20-2023 Bamboo flowsheet Lisette Cummins DO Work Phone: [facility] Start: 12-20-2023 End: 12-20-2023 ambulatory LISETTE CUMMINS Not Available Start: 12-20-2023 End: 12-20-2023 Office outpatient visit 15 minutes Lisette Cummins DO Work Phone: [facility] Comment on above: Rupture of right Ach illes tendon, subsequent encounter (Primary Dx); Right knee pain, unspecified chronicity; Arthritis of right knee Start: 12-14-2023 End: 12-14-2023 Office outpatient new 45 minutes Kendell Vides DO Work Phone: [facility] Comment on above: Benign paroxysmal po sitional vertigo, unspecified laterality (Primary Dx); ELENA (obstructive sleep apnea); Class 3 severe obesity with serious comorbidity and body mass index (BMI) of 45.0 to 49.9 in adult, unspecified obesity type ([facility]); Diabetic peripheral neuropathy associated with type 2 diabetes mellitus ([facility]); Hypersomnia; Dizziness and giddiness Start: 12-14-2023 End: 12-14-2023 ambulatory KENDELL MAHOGANY Not Available Start: 12-14-2023 End: 12-14-2023 Bamboo flowsheet Kendell Mahogany DO [facility] [address] Start: 12-14-2023 End: 12-14-2023 Bamboo flowsheet Kendell Vides DO [facility] [address] Start: 12-11-2023 End: 12-11-2023 Refill Jenny Aichholz CARVING MACHINE OPERATOR Work Phone: [facility] Comment on above: Environmental and se asonal allergies Start: 11-24-2023 End: 11-24-2023 Refill Jenny Aichholz CARVING MACHINE OPERATOR Work Phone: [facility] Comment on above: Dizziness and giddin ess (Primary Dx) Start: 11-23-2023 End: 11-23-2023 Refill Jenny Aichholz CARVING MACHINE OPERATOR Work Phone: [facility] Comment on above: Type 2 diabetes netta itus with diabetic neuropathy, unspecified (CMS/HCC); Diabetic neuropathy, painful (CMS/HCC); Anxiety and depression (CMS/HCC) Start: 11-22-2023 End: 11-22-2023 Bamboo flowsheet Lisette Cummins DO Work Phone: [facility] Start: 11-22-2023 End: 11-22-2023 Bamboo flowsheet Lisette Cummins DO Work Phone: [facility] Start: 11-22-2023 End: 11-22-2023 ambulatory LISETTE CUMMINS Not Available Start: 11-22-2023 End: 11-22-2023 Office outpatient visit 25 minutes Lisette Cummins DO Work Phone: [facility] Comment on above: Acute right ankle pa in (Primary Dx); Achilles tendon rupture, right, initial encounter Start: 11-21-2023 End: 11-22-2023 Refill Jenny Aichholz CARVING MACHINE OPERATOR Work Phone: [facility] Comment on above: Anemia, unspecified Start: 11-20-2023 End: 11-20-2023 Refill Jenny Aichholz CARVING MACHINE OPERATOR Work Phone: [facility] Comment on above: Bilateral lower extr emity edema; Gastroesophageal reflux disease without esophagitis Start: 11-12-2023 End: 11-14-2023 Refill Jenny Aichholz CARVING MACHINE OPERATOR Work Phone: [facility] Comment on above: Hypertriglyceridemia (CMS/HCC) Start: 11-10-2023 End: 11-10-2023 Refill Jenny Aichholz CARVING MACHINE OPERATOR Work Phone: [facility] Comment on above: Type 2 diabetes netta itus with diabetic neuropathy, with long- term current use of insulin (CMS/HCC); Type 2 diabetes mellitus without complications (CMS/HCC) Start: 10-20-2023 End: 10-20-2023 Bamboo flowsheet Jenny Aichholz CARVING MACHINE OPERATOR Work Phone: [facility] Start: 10-20-2023 End: 10-20-2023 Bamboo flowsheet Jenny Aichholz CARVING MACHINE OPERATOR Work Phone: [facility] Start: 10-20-2023 End: 10-20-2023 Office outpatient visit 25 minutes Jenny Salima CARVING MACHINE OPERATOR Work Phone: [facility] Comment on above: Type 2 diabetes netta itus with insulin therapy (CMS/HCC) (Primary Dx); Peripheral vascular disease, unspecified (CMS/HCC); Atherosclerosis of aorta (CMS/HCC); Diabetic neuropathy, painful (CMS/HCC); Type 2 diabetes mellitus with diabetic neuropathy, with long-term current use of insulin (CMS/HCC); CAD in [place] artery (CMS/HCC); Bilateral lower extremity edema; Class 3 severe obesity with serious comorbidity and body mass index (BMI) of 45.0 to 49.9 in adult, unspecified obesity type (CMS/HCC) Start: 10-20-2023 End: 10-20-2023 ambulatory JENNY AICHHOLZ Not Available Start: 10-19-2023 End: 10-19-2023 ambulatory [facility] Start: 09-21-2023 End: 09-21-2023 ambulatory [facility] Start: 08-18-2023 End: 08-18-2023 ambulatory [facility] Start: 08-08-2023 ambulatory Joanne Brown Facility:[facility] Start: 07-12-2023 End: 07-12-2023 ambulatory LISETTE Tijerina OSNAM Not Available Start: 06-23-2023 End: 06-23-2023 ambulatory JENNY BORREGO Not Available Start: 06-15-2023 End: 06-15-2023 [facility] Lex Pickens MD Work Phone: Urology Comment on above: Other specified diso rders of kidney and ureter (Primary Dx); Renal mass; Morbid obesity (HCC); Type 2 diabetes mellitus with diabetic neuropathy, with long-term current use of insulin (HCC) Start: 05-17-2023 End: 05-17-2023 ambulatory LEX PICKENS Facility:[facility] Start: 05-17-2023 End: 05-17-2023 Subsequent hospital visit by physician Arrival Time Radiology Work Phone: [facility] Comment on above: Renal mass, right [N 28.89] Start: 04-28-2023 Telephone encounter Angie marin APRN.CNP Work Phone: Hematology/Oncology Comment on above: Orders Start: 04-13-2023 End: 04-13-2023 ambulatory DO Dawit House Work Phone: [facility] Work Phone: Start: 04-13-2023 End: 04-13-2023 Patient encounter procedure DO Dawit House Work Phone: [facility] [place] Work Phone: Start: 04-13-2023 Registered Recurring DO Maverick s House Work Phone: [facility] Work Phone: Start: 04-05-2023 Refill Jenny Borrego CARVING MACHINE OPERATOR Work Phone: [facility] Comment on above: Acute non-recurrent sinusitis of other sinus (Primary Dx) Start: 03-24-2023 End: 03-24-2023 Assay of hemosiderin, quant Jenny Borrego NP Work Phone: [facility] Start: 03-24-2023 End: 03-24-2023 Patient encounter procedure Jenny Borrego NP Work Phone: [facility] Comment on above: Encounter for annual wellness visit (AWV) in Medicare patient (Primary Dx); Type 2 diabetes mellitus with diabetic neuropathy, with long-term current use of insulin ([facility]/HCC); CAD in [place] artery ([facility]/HCC); Tobacco user; Malignant neoplasm of kidney, unspecified laterality (CMS/HCC); Type 2 diabetes mellitus with insulin therapy ([facility]/HCC); Routine general medical examination at health care facility Start: 03-24-2023 Refill Jenny Borrego NP Work Phone: [facility] Comment on above: CAD in [place] artery (CMS/HCC) (Primary Dx) Start: 10-15-2022 End: 10-15-2022 [facility] Lex Pickens MD Work Phone: Urology Comment on above: Renal mass, right (P rimary Dx); Family history of renal cancer; Morbid obesity (HCC); Current every day smoker; Other specified disorders of kidney and ureter Start: 10-15-2022 End: 10-15-2022 ambulatory LEX PICKENS Facility:[facility] Start: 10-07-2022 End: 10-07-2022 ambulatory LEX PICKENS Facility:[facility] Start: 10-07-2022 End: 10-07-2022 Subsequent hospital visit by physician Arrival Time Radiology Work Phone: [facility]iology [facility] Comment on above: Other specified diso rders of kidney and ureter [N28.89] Start: 06-18-2022 End: 06-19-[address] DAWIT BA Facility: Start: 06-02-2022 End: 06-02-2022 Admission to same day surgery center DO Dawit Ba Work Phone: [facility] [place] Start: 06-02-2022 End: 06-02-2022 ambulatory DO Dawit Ba Work Phone: [facility] Work Phone: Start: 04-22-2022 End: 04-23-[address] DAWIT BA Facility:[facility] Start: 04-09-2022 End: 04-10-2022 [facility] Lex Pickens MD Work Phone: Urology [...] V Leiden (HCC); Coronary artery disease involving [place] heart without angina pectoris, unspecified vessel or lesion type; Smoker; Morbid obesity (HCC); Other specified disorders of kidney and ureter; Renal mass Start: 03-05-2022 End: 03-06-2022 ambulatory MD Jluis ROBLEDO Facility:[facility] Start: 03-05-2022 End: 03-05-2022 Patient encounter procedure Jluis ROBLEDO [facility] Start: 02-01-2022 End: 02-02-[address] DAWIT BA Facility:[facility] Start: 11-09-2021 End: 11-09-2021 ambulatory DAWIT BA Facility:[facility] Start: 10-13-2021 Telephone encounter Lilly pruitt MD Work Phone: [facility] Orth[facility] Comment on above: Patient Update Start: 10-12-2021 End: 10-12-2021 ambulatory DAWIT VARGASIP MEJIA SR Facility:[facility] Start: 10-12-2021 End: 10-12-2021 Patient encounter procedure Lilly Tony MD Work Phone: [facility] Comment on above: Closed fracture of l eft ankle, initial encounter (Primary Dx) Start: 09-21-2021 End: 09-21-2021 ambulatory LILLY TONY Facility:[facility] Start: 09-16-2021 Telephone encounter Ag Orth Work Phone: [facility] Comment on above: ER F/U Start: 09-12-2021 End: 09-12-2021 Emergency department patient visit DAWIT STEFAN BA SR Facility:[facility] Start: 09-03-[address] DAWIT BA Facili ty:[facility] Start: 07-27-2021 End: 07-28-2021 ambulatory MD Jluis ROBLEDO Facility:[facility] Start: 07-27-2021 End: 07-27-2021 Patient encounter procedure Jluis ROBLEDO [facility] Start: 06-24-2021 ambulatory MD Jluis ROBLEDO Facil ity:[facility] Procedures Date Procedure Procedure Detail Performing Clinician Start: 04-30-2024 Complete blood count with white cell differential, automated Dori Wesley CARVING MACHINE OPERATOR Work Phone: Start: 04-17-2024 Hemoglobin glycosylated a1c Jenny chance CARVING MACHINE OPERATOR Work Phone: Start: 02-27-2024 Radiologic examination knee 1/2 views Dori Wesley CARVING MACHINE OPERATOR Work Phone: Start: 01-16-2024 Hemoglobin glycosylated a1c Jenny chance CARVING MACHINE OPERATOR Work Phone: Start: 12-20-2023 Arthrocentesis aspir&/inj major jt/bursa w/o us Lisette Cummins DO Work Phone: Start: 05-17-2023 Ct abdomen w/o & w/contrast material Lex Pickens MD Work Phone: Start: 05-17-2023 CREATININE BLD Angie Mcclellan NEW AUTOS DELIVERY DRIVER.WEB PROJECT MANAGER Work Phone: Start: 11-19-2022 Mammography Jenny Borrego CARVING MACHINE OPERATOR Work Phone: Start: 10-07-2022 Ct abdomen w/o & w/contrast material Lex Pickens MD Work Phone: Start: 10-07-2022 CREATININE BLD Christel Mendoza MD Work Phone: Start: 06-02-2022 Esophagogastroduodenoscopy DO Dawit Ho use Work Phone: Start: 06-02-2022 Colonoscopy Jenny Borrego CARVING MACHINE OPERATOR Work Phone: Start: 04-05-2022 Ct abdomen w/o & w/contrast material Judson Quiroga MD Work Phone: Start: 04-05-2022 Radiologic exam chest 2 views Judson russell MD Work Phone: Start: 04-05-2022 CREATININE BLD Judson Quiroga MD Work Phone: Abdominal hysterectomy Tatiana ROBLEDO Appendectomy Jluis ROBLEDO Bilateral tubal ligation Elayne RBOLEDO Cholecystectomy Jluis LAU Plan of Treatment Date Care Activity Detail Author Start: 06-02-2032 Screening for malign ant neoplasm of colon [facility] Start: 07-28-2025 Diabetes Screening Diabetes Screenin g [facility] Start: 04-18-2025 End: 04-18-2025 Patient encounter procedure 04/18/2025 11:00 AM EST Office Visit [facility] [address] [place] [phone] Jenny Borrego NP [address] [place] [phone] [facility] Start: 04-17-2025 Medicare Annual Wellness (AWV) Medicare Annual Wellness (AWV) [facility] Start: 10-18-2024 Urine screening for protein Diabetes: Urine Protein Screening [facility] Start: 09-14-2024 Urine screening for protein Diabetes: Urine Protein Screening [facility] Start: 07-17-2024 End: 07-17-2024 Patient encounter procedure 07/17/2024 1:00 PM EDT Office Visit [facility] [address] [place] [address] Jenny Borrego NP [address] [place] [address] [facility] Start: 07-15-2024 Hemoglobin A1c measurement Diabetes: Hemoglobin A1C [facility] Start: 05-30-2024 End: 05-30-2024 Patient encounter procedure 05/30/2024 9:30 AM EDT Office Visit [facility] [address] [place] [phone] Nimco Varela, [place] [address] [place] [address] [place] [address] [facility] Start: 04-30-2024 End: 04-30-2024 Patient encounter procedure 04/30/2024 1:00 PM EDT Office Visit [facility] [address] [place] [id number] Dori Wesley, CARVING MACHINE OPERATOR [address] [place] [address] [facility] Start: 04-25-2024 End: 04-25-2025 Basic metabolic 1998 panel - Serum or Plasma Basic metabolic panel Lab Routine Preop examination Expected: 04/25/2024 (Approximate), Expires: 04/25/2025 [facility] Comment on above: Expected: 04/25/2024 (Approximate), Expires: 04/25/2025 Start: 04-25-2024 End: 04-25-2025 Basic metabolic 2000 panel - Serum or Plasma Basic Metabolic Panel Lab Routine Encounter for other preprocedural examination Expected: 04/25/2024, Expires: 04/25/2025 [facility] Work Phone: Comment on above: Expected: 04/25/2024 , Expires: 04/25/2025 Start: 04-25-2024 End: 04-25-2025 CBC W Auto Differential panel - Blood CBC and differential Lab Routine Preop examination Expected: 04/25/2024 (Approximate), Expires: 04/25/2025 [facility] [place] Work Phone: Comment on above: Expected: 04/25/2024 (Approximate), Expires: 04/25/2025 Start: 04-25-2024 End: 04-25-2025 Comprehensive metabolic 2000 panel - Serum or Plasma [facility] Work Phone: Comment on above: Expected: 04/25/2024 , Expires: 04/25/2025 Expected: 04/25/2024 (Approximate), Expires: 04/25/2025 Start: 04-25-2024 End: 04-25-2025 ECG 12 lead ECG 12 lead ECG Routine Preop examination Expected: 04/25/2024 (Approximate), Expires: 04/25/2025 [facility] [place] Comment on above: Expected: 04/25/2024 (Approximate), Expires: 04/25/2025 Start: 04-17-2024 End: 04-17-2025 Basic metabolic 1997 panel - Serum or Plasma Basic metabolic panel Lab Routine Primary hypertension (CMS/HCC) Type 2 diabetes mellitus with insulin therapy (CMS/HCC) Expected: 04/17/2024 (Approximate), Expires: 04/17/2025 [facility] [place] Work Phone: Comment on above: Expected: 04/17/2024 (Approximate), Expires: 04/17/2025 Start: 04-17-2024 End: 04-17-2025 DXA Skeletal system Views for bone density DEXA bone density Imaging Routine Age-related osteoporosis without current pathological fracture (CMS/HCC) Expected: 04/17/2024 (Approximate), Expires: 04/17/2025 [facility] Comment on above: Expected: 04/17/2024 (Approximate), Expires: 04/17/2025 Start: 04-17-2024 Hemoglobin A1c measurement Diabetes: Hemoglobin A1C [facility] Start: 04-17-2024 End: 04-17-2024 Patient encounter procedure 04/17/2024 1:00 PM EST Office Visit [facility] [address] [place] [address] Jenny Borrego, ZELALEM [address] [place] [address] [facility] Start: 04-06-2024 End: 04-06-2024 Patient encounter procedure [facility] Comment on above: Arrived Start: 04-02-2024 End: 04-02-2024 Patient encounter procedure [facility] [address] Start: 03-24-2024 Medicare Annual Wellness (AWV) Medicare Annual Wellness (AWV) [facility] Start: 03-09-2024 End: 03-09-2024 Patient encounter procedure [facility] Comment on above: Acute pain of right knee (Primary Dx); Ruptured, tendon, Achilles, right, subsequent encounter; Primary osteoarthritis of right knee Start: 02-28-2024 End: 02-28-2024 Clinical Support 02/28/2024 8:15 AM EST [facility] [address] [facility] [place] [address] [facility] Start: 02-27-2024 End: 02-27-2024 Clinical Support [facility] Comment on above: Arrived Start: 02-21-2024 End: 02-21-2024 Professional / ancillary services management 02/21/2024 10:45 AM EST Ancillary Procedure [facility] [address] [facility] [place] [address] [facility] Start: 02-08-2024 End: 02-07-2025 MR Knee - right WO contrast MR knee right wo IV contrast Imaging Routine Internal derangement of right knee Expected: 02/08/2024 (Approximate), Expires: 02/07/2025 [facility] Work Phone: Comment on above: Expected: 02/08/2024 (Approximate), Expires: 02/07/2025 Start: 02-06-2024 End: 02-06-2024 Patient encounter procedure 02/06/2024 10:00 AM EST Office Visit [facility] [address] [place] [address] Kelley Luis NP [address] [place], [place] [facility] [address] Start: 02-01-2024 End: 02-01-2024 Patient encounter procedure 02/01/2024 8:45 AM EST Office Visit [facility] [address] [place] [id number] Deonna Finn CARVING MACHINE OPERATOR [address] [place] [address] [facility] Start: 01-30-2024 End: 01-29-2025 MR Ankle - right WO contrast MR ankle right wo IV contrast Imaging Routine Ruptured, tendon, Achilles, right, subsequent encounter Expected: 01/30/2024 (Approximate), Expires: 01/29/2025 [facility] Work Phone: Comment on above: Expected: 01/30/2024 (Approximate), Expires: 01/29/2025 Start: 01-30-2024 End: 01-30-2024 Patient encounter procedure 01/30/2024 1:15 PM EST Office Visit [facility] [address] [place] [address] Deonna Finn CARVING MACHINE OPERATOR [address] [place] [address] Arrived [facility] Comment on above: Arrived Start: 01-16-2024 End: 03-17-2025 MG Breast - bilateral Screening Bilateral screening mammogram Imaging Routine Encounter for screening mammogram for malignant neoplasm of breast Expected: 01/16/2024 (Approximate), Expires: 03/17/2025 [facility] Work Phone: Comment on above: Expected: 01/16/2024 (Approximate), Expires: 03/17/2025 Start: 01-16-2024 End: 01-16-2024 Patient encounter procedure 01/16/2024 1:40 PM EST Office Visit [facility] [address] [place] [address] Jenny Borrego, ZELALEM [address] [place] [address] [facility] Start: 01-09-2024 End: 01-09-2024 Professional / ancillary services management 01/09/2024 10:45 AM EST Ancillary Procedure [facility] [address] [place] [phone] [facility] Start: 12-20-2023 End: 12-20-2023 Patient encounter procedure 12/20/2023 10:45 AM EDT Office Visit [facility] [address] [place] [phone] Lisette Cummins DO [address] [place] [address] [facility] Start: 12-16-2023 Hemoglobin A1c measurement Diabetes: Hemoglobin A1C [facility] Start: 12-14-2023 End: 12-14-2023 Patient encounter procedure [facility] [address] Comment on above: Dizziness and giddin ess Start: 12-14-2023 End: 12-13-2024 Home sleep test Home sleep test Sleep Center Routine ELENA (obstructive sleep apnea) Expected: 12/14/2023 (Approximate), Expires: 12/13/2024 [facility] Work Phone: Comment on above: Expected: 12/14/2023 (Approximate), Expires: 12/13/2024 Start: 12-14-2023 End: 12-13-2024 Vestibular test (VNG) Vestibular test (VNG) Neurology Routine Benign paroxysmal positional vertigo, unspecified laterality Expected: 12/14/2023 (Approximate), Expires: 12/13/2024 [facility] Comment on above: Expected: 12/14/2023 (Approximate), Expires: 12/13/2024 Start: 11-20-2023 Screening for malign ant neoplasm of breast Mammogram [facility] Start: 10-23-2023 Covid-19 Vaccine () Covid-19 Vaccine () [facility] Start: 10-23-2023 Covid-19 Vaccine () Covid-19 Vaccine () [facility] Start: 10-23-2023 Influenza vaccination [facility] Start: 10-20-2023 Glaucoma screening Diabetes: R etinopathy Screening [facility] Start: 10-20-2023 End: 10-20-2023 Patient encounter procedure 10/20/2023 2:00 PM EDT Office Visit [facility] [address] [place] [address] Jenny Borrego NP [address] [place] [phone] Peripheral vascular disease, unspecified (CMS/HCC); Atherosclerosis of aorta (CMS/HCC) [facility] Comment on above: Peripheral vascular disease, unspecified (CMS/HCC); Atherosclerosis of aorta (CMS/HCC) Start: 10-12-2023 Hemoglobin A1c measurement HbA1C [facility] Start: 09-28-2023 Urine screening for protein Diabetes: Urine Protein Screening [facility] Start: 06-23-2023 End: 06-23-2023 Patient encounter procedure 06/23/2023 10:30 AM EDT Office Visit [facility] [address] [place] [address] Jenny Borrego, ZELALEM [address] [place] [phone] [facility] Start: 05-17-2023 End: 08-16-2023 CREATININE BLD CREATININE BLD Lab Routine Renal mass Expected: 05/17/2023 (Approximate), Expires: 08/16/2023 [facility] Work Phone: Comment on above: Expected: 05/17/2023 (Approximate), Expires: 08/16/2023 Start: 04-22-2023 End: 03-24-2024 Hemoglobin A1c measurement Hemoglobin A1c Lab Routine Type 2 diabetes mellitus with diabetic neuropathy, with long-term current use of insulin ([facility]) Expected: 04/22/2023 (Approximate), Expires: 03/24/2024 [facility] Work Phone: Comment on above: Expected: 04/22/2023 (Approximate), Expires: 03/24/2024 Start: 04-13-2023 Erythropoietin (EPO) [Units/volume] in Serum or Plasma [facility] Start: 04-13-2023 End: 04-13-2023 [facility] Start: 04-12-2023 Hemoglobin A1c measurement Diabetes: Hemoglobin A1C [facility] Start: 03-16-2023 [facility] Start: 02-21-2023 Behavioral Health Screening Behavioral Health Screening [facility] Start: 02-21-2023 Depression Assessment Depression Ass essment [facility] Start: 02-11-2023 [facility] Start: 01-26-2023 Shingrix Vaccine (2 of 2) Shingrix Vaccine (2 of 2) [facility] Start: 12-20-2022 [facility] Start: 10-22-2022 Covid-19 Vaccine ( season) Covid-19 Vaccine ( season) [facility] Start: 10-22-2022 Influenza vaccination [facility] Start: 10-07-2022 End: 05-09-2023 Ct abdomen w/o & w/contrast material CT KIDNEY WO/W IVCON Radiology Routine Other specified disorders of kidney and ureter Expected: 10/07/2022, Expires: 05/09/2023 [facility] Work Phone: Comment on above: Expected: 10/07/2022 , Expires: 05/09/2023 Start: 07-26-2022 [facility] Start: 07-06-2022 [facility] Start: 07-01-2022 [facility] Start: 06-23-2022 End: 06-23-2022 [facility] Start: 06-23-2022 End: 06-23-2022 [facility] Start: 06-23-2022 [facility] Start: 06-02-2022 [facility] Start: 06-02-2022 [facility] Start: 04-05-2022 End: 06-05-2022 CREATININE BLD CREATININE BLD Lab Routine Renal mass Expected: 04/05/2022, Expires: 06/05/2022 [facility] Work Phone: Comment on above: Expected: 04/05/2022 , Expires: 06/05/2022 Start: 02-21-2022 DEPRESSION ASSESSMENT DEPRESSION ASS ESSMENT [facility] Start: 10-22-2021 Influenza vaccination INFLUENZA (#1) [facility] Start: 06-25-2021 COVID-19 VACCINE (4 - Booster for Pfizer series) COVID-19 VACCINE (4 - Booster for Pfizer series) [facility] Start: 04-22-2021 COVID-19 VACCINE (4 - Booster for Pfizer series) COVID-19 VACCINE (4 - Booster for Pfizer series) [facility] Start: 04-22-2021 COVID-19 VACCINE (4 - Pfizer series) COVID-19 VACCINE (4 - Pfizer series) [facility] Start: 07-23-2017 Pneumococcal vaccination Pneumococcal Vaccine (2 of 2 - PCV) [facility] Start: 11-06-2015 Administration of varicella zoster vaccine Zoster (Shingles) Vaccine (1 of 2) [facility] Start: 11-06-2015 SHINGRIX VACCINE (1 of 2) SHINGRIX VACCINE (1 of 2) [facility] Start: 2010 COLOGUARD (FIT-DNA) COLOGUARD (FIT-D NA) [facility] Start: 2010 Colonoscopy COLONOSCOPY [facility] Start: 2010 COLORECTAL CANCER SCREENING COLORECTAL CANCER SCREENING [facility] Start: [address] COLONOGRAPHY [facility] Start: 2010 DIABETES SCREEN DIABETES SCREEN [facility] Start: 2010 FECAL OCCULT BLOOD FECAL OCCULT BLOO D [facility] Start: 2010 Lipid panel Lipid Screening [facility] Start: 2010 LIPID SCREEN LIPID SCREEN [facility] Start: 2010 Screening for malign ant neoplasm of colon [facility] Start: 2010 SIGMOIDOSCOPY SIGMOIDOSCOPY [facility] Start: 2005 Mammography MAMMOGRAM [facility] Start: 2005 Screening for malign ant neoplasm of breast Mammogram Screening [facility] Start: 11-06-1995 HPV TESTING HPV TESTING [facility] Start: 11-06-1995 Screening for malign ant neoplasm of cervix [facility] Start: 1986 PAP TESTING PAP TESTING [facility] Start: 1986 Screening for malign ant neoplasm of cervix [facility] Start: 1984 DTaP,Tdap and Td Vaccines (1 - Tdap) DTaP,Tdap and Td Vaccines (1 - Tdap) [facility] Start: 1984 Hepatitis B Vaccine (1 of 3 - 19+ 3-dose series) Hepatitis B Vaccine (1 of 3 - 19+ 3-dose series) [facility] Start: 1984 Urine microalbumin profile [facility] Start: 11-06-1983 Adult BMI Screening Adult BMI Screen ing [facility] Start: 11-06-1983 ANNUAL PCP TEAM CUSTOMS CONSULTANT ABIOLA DISEASE VISIT ANNUAL PCP TEAM CHRONIC DISEASE VISIT [facility] Start: 11-06-1983 Anxiety Screening Anxiety Screening [facility] Start: 11-06-1983 Depression Screening Depression Scre ening [facility] Start: 11-06-1983 Hepatitis B surface antibody level LDL CHOLESTEROL [facility] Start: 11-06-1983 HEPATITIS C SCREENING HEPATITIS C [facility] Start: 11-06-1983 Hepatitis C screening Hepatitis C [facility] Start: 11-06-1983 HIV SCREENING HIV SCREENING [facility] Start: 11-06-1983 HIV screening HIV Screening [facility] Start: 1977 Adult depression screening assessment DEPRESSION SCREENING [facility] Start: 1977 Tobacco Screening Tobacco Screening [facility] Start: 11-06-1975 Diabetic foot examination Diabetic Foot Exam [facility] Start: 11-06-1975 Glaucoma screening Dilated Retinal E xam [facility] Start: 11-06-1975 Hepatitis B screening Urine Al bumin:Creatinine Ratio [facility] Start: 11-06-1971 PNEUMOCOCCAL (1 - PCV) PNEUMOCOCCAL (1 - PCV) [facility] Start: 1965 HEPATITIS B (1 of 3 - 3-dose series) HEPATITIS B (1 of 3 - 3-dose series) [facility] Start: 1965 Hepatitis B Vaccine (1 of 3 - 3-dose series) Hepatitis B Vaccine (1 of 3 - 3-dose series) [facility] Start: 1965 Screening for malign ant neoplasm of colon [facility] metabo lic 2000 panel - Serum or Plasma [facility] End: 07-14-2024 CT Abdomen W contrast IV CT ABDOMEN W IVCON Radiology Routine Other specified disorders of kidney and ureter 1 Occurrences starting 06/15/2023 until 07/14/2024 [facility] Work Phone: Comment on above: 1 Occurrences starti ng 06/15/2023 until 07/14/2024 End: 11-15-2023 Ct abdomen w/o & w/contrast material CT KIDNEY WO/W IVCON Radiology Routine Renal mass, right Other specified disorders of kidney and ureter 1 Occurrences starting 10/16/2022 until 11/15/2023 [facility] Work Phone: Comment on above: 1 Occurrences starti ng 10/16/2022 until 11/15/2023 Erythropoietin (EPO) [Units/volume] in Serum or Plasma [facility] Glucose measurement estimated from glycated hemoglobin [facility] Methylmalonate [Moles/volume] in Serum or Plasma [facility] URINALYSIS, REFLEX MICROSCOPIC URINALYSIS, REFLEX MICROSCOPIC Lab Routine Screening for genitourinary condition Ordered: 10/15/2022 [facility] Work Phone: Comment on above: Ordered: 10/15/2022 XR ANKLE GENERAL 3V AP/LAT/OBL LEFT XR ANKLE GENERAL 3V AP/LAT/OBL LEFT Radiology Routine Closed fracture of left ankle, initial encounter Ordered: 10/12/2021 [facility] Work Phone: Comment on above: Ordered: 10/12/2021 [facility] Immunizations Immunization Date Immunization Notes Care Provider Suki martin 12-20-2023 influenza, injectabl e, madin sushant canine kidney, preservative free Jenny Aichholz CARVING MACHINE OPERATOR Work Phone: [facility] 12-20-2023 tetanus toxoid, redu russell diphtheria toxoid, and acellular pertussis vaccine, adsorbed Jenny Aichholz CARVING MACHINE OPERATOR Work Phone: [facility] 02-17-2023 zoster vaccine recombinant Lisette Sonam DO Work Phone: [facility] 12-01-2022 influenza, injectabl e, quadrivalent, preservative free Jenny Aichholz CARVING MACHINE OPERATOR Work Phone: [facility] 12-01-2022 zoster vaccine recombinant Jenny Aichholz CARVING MACHINE OPERATOR Work Phone: [facility] 12-01-2022 influenza virus vaccine, unspecified formulation Jenny Aichholz CARVING MACHINE OPERATOR Work Phone: [facility] 12-18-2021 influenza virus vaccine, unspecified formulation Jluis ROBLEDO [facility] 12-18-2021 Influenza, injectabl e, Madin Echola Canine Kidney, preservative free, quadrivalent Jenny Aichholz CARVING MACHINE OPERATOR Work Phone: [facility] 02-25-2021 influenza virus vaccine, unspecified formulation Jluis ROBLEDO [facility] 02-25-2021 influenza, injectabl e, quadrivalent, preservative free Jenny Aichholz CARVING MACHINE OPERATOR Work Phone: [facility] 02-25-2021 SARS-CoV-2 (COVID-19 ) mRNA BNT-162b2 vax Jluis ROBLEDO [facility] 02-25-2021 SARS-CoV-2, Unspecified Alexi Cummins DO Work Phone: [facility] 11-21-2020 influenza virus vaccine, unspecified formulation Jluis ROBLEDO [facility] 11-21-2020 influenza, seasonal, injectable Lisette Cummins DO Work Phone: [facility] 11-12-2020 influenza virus vaccine, unspecified formulation Jluis ROBLEDO [facility] 06-19-2020 SARS-CoV-2 mRNA (tozinameran 5y-11y) vaccine Jluiskatarzyna ROBLEDO [facility] 05-29-2020 SARS-CoV-2 mRNA (tozinameran 5y-11y) vaccine Jluis ROBLEDO [facility] 10-17-2018 influenza virus vaccine, unspecified formulation Jluiskatarzyna ROBLEDO [facility] 10-17-2018 influenza, injectabl e, quadrivalent, preservative free Jenny Aichholz CARVING MACHINE OPERATOR Work Phone: [facility] 11-23-2017 influenza virus vaccine, unspecified formulation Jluiskatarzyna ROBLEDO [facility] 11-23-2017 influenza, injectabl e, quadrivalent, preservative free Jenny Aichholz CARVING MACHINE OPERATOR Work Phone: [facility] 10-20-2017 influenza virus vaccine, unspecified formulation Jluis ROBLEDO [facility] 10-20-2017 influenza, injectabl e, quadrivalent, preservative free Jenny Aichholz CARVING MACHINE OPERATOR Work Phone: [facility] 11-22-2016 influenza virus vaccine, unspecified formulation Jluis ROBLEDO [facility] 11-22-2016 influenza, injectabl e, quadrivalent, preservative free Jenyn Aichholz CARVING MACHINE OPERATOR Work Phone: [facility] 11-06-2016 influenza virus vaccine, unspecified formulation Jluis ROBLEDO [facility] 11-06-2016 influenza, injectabl e, quadrivalent, preservative free Jenny Aichholz CARVING MACHINE OPERATOR Work Phone: [facility] 07-23-2016 pneumococcal polysaccharide vaccine, 23 valent Jluis ROBLEDO [facility] Payers Date Payer Category Payer Medicaid [id number] 2022 Medicare (Managed Care) [employer] ADVANTAGE [id number] 2022 Private Health Insurance [id number] 2019 Medicare MEDICARE MEDICAR E A AND B [id number] 2019-Present [phone] [place] [address] Medicare [id number] 2019 Medicare [id number] 2019 Managed Care Other (unspecified) [facility] [id number] 2019 Private Health Insurance [facility] CHOICE PLUS [id number] 2019-Present [phone] [id number] [place] [address] HMO [id number] 2019 Private Health Insurance [facility] CHOICE PLUS [id number] 2019-Present [id number] [place] [address] HMO [id number] 2019 Unknown [id number] 1965 Unknown [id number] 2.16.840.1.777039.3.579.2. 72 1965 Unknown [id number] 2.16.840.1.822169.3.579.2. 727 1965 Unknown [id number] 2.16.840.1.183650.3.579.2. 727 1965 Unknown [id number] 2.16.840.1.500736.3.579.2. 593 1965 Unknown [id number] 2.16.840.1.044166.3.579.2. 593 1965 Unknown [id number] 2.16.840.1.481704.3.579.2. 593 1965 Unknown [id number] 2.16.840.1.902219.3.579.2. 59 1965 Unknown [id number] 2.16.840.1.662194.3.579.2. 125 1965 Unknown [id number] 2.16.840.1.150741.3.579.2. 1258 1965 Unknown [id number] 2.16.840.1.901354.3.579.2. 1258 1965 Unknown [id number] 2.16.840.1.356749.3.579.2. 1258 1965 Unknown [id number] 2.16.840.1.932240.3.579.2. 1258 1965 Unknown [id number] 2.16.840.1.574054.3.579.2. 1258 1965 Unknown [id number] 2.16.840.1.380097.3.579.2. 1258 1965 Unknown [id number] 2.16.840.1.905239.3.579.2. 125 1965 Unknown [id number] 2.16.840.1.603385.3.579.2. 1258 1965 Unknown [id number] 2.16.840.1.320218.3.579.2. 1258 1965 Unknown [id number] 2.16.840.1.353674.3.579.2. 125 1965 Unknown [id number] 2.16.840.1.359922.3.579.2. 9 1965 Unknown [id number] 2.16.840.1.870846.3.579.2. 1258 1965 Unknown [id number] 2.16.840.1.112761.3.579.2. 9 1965 Unknown [id number] 2.16.840.1.712619.3.579.2. 1258 1965 Unknown [id number] 2.16.840.1.032496.3.579.2. 1258 1965 Unknown [id number] 2.16.840.1.322600.3.579.2. 1258 1965 Unknown [id number] 2.16.840.1.242907.3.579.2. 1286 1959 Medicaid [id number] 1959 Medicare [id number] 1959 Private Health Insurance [id number] 1959 Self-pay [id number] Medicare [id number] Unknown Lj HOLGUIN/BS [id number] Unknown [id number] 2.16.840.1.566599.3.579.2. 531 Social History Date Type Detail Facility Start: 07-27-2021 End: 03-05-2022 Tobacco smoking status Heavy tobacco smoker (finding) [facility] Start: 10-15-2022 End: 03-24-2023 Sex Assigned At Female [facility] smoking consumption unknown [facility] Start: 1965 Sex Assigned At Not on file [facility] Start: 09-02-2021 End: 10-12-2021 Exposure to SARS-CoV-2 (event) Not sure [facility] Start: 10-12-2021 End: 12-14-2023 Tobacco smoking status AZIS Smokes tobacco daily [facility] History of tobacco use Cigarette Smoker [facility] Start: 10-12-2021 End: 12-14-2023 Tobacco use and exposure Smokeless tobacco non-user [facility] [facility] Start: 10-12-2021 End: 04-30-2024 Alcohol intake Ex-drinker (finding) [facility] Start: 06-02-2022 End: 07-30-2022 Tobacco smoking status NHIS Smoker (finding) [facility] Start: 1965 Sex Assigned At Female F [facility] Start: 10-15-2022 End: 03-24-2023 History of Social function [facility] National Score (1-10 0), lower number is lower risk 63 [facility] Within the last year , [...] [OSQ] Very much [facility] (I/We) worried naye er (my/our) food would run out before (I/we) got money to buy more. Never true [facility] Start: 01-10-2023 Tobacco Comment 11-20 cigarettes/day [facility] Start: 02-02-2023 Alcohol Comment Caffeine: coffee,soda/pop: 10cups daily [facility] Start: 08-18-2017 Alcoholic beverage intake Current non-drinker of alcohol (finding) [facility] Start: 08-10-2017 Sex Female (finding) [facility] Medical Equipment Procedure Code Equipment Code Equipment Origin al Text Equipment Identifier Dates USE TWICE DAILY [id number] Start: 02-12-2023 End: 03-24-2024 Twice a day use [id number] Start: 03-24-2024 Goals Date Patient Goal Desired Activity /State Functional Status Date Assessment Result Facility 03-05-2022 Functional Status N/A [facility] Clinical Notes 07-27-2021 to 04-30-2024 Dori Wesley, CARVING MACHINE OPERATOR - 04/30/2024 1:00 PM EDTTelephone Encounter - DENISE SpenceT - 04/17/2024 4:08 PM ESTTelephone Encounter - Yesenia Justice, [facility] - 04/17/2024 4:08 PM ESTPatient Instructions Note Date & Type Note Facility 04-30-2024 History of Present illness Narrative Images from the original note were not included. GENERAL HISTORY AND PHYSICAL: NAME: Elmer Ellis : 1965 HISTORY OF PRESENT ILLNESS: Elmer Ellis is an 58 y.o. @ female. Here for surgery instructions H&P RT KNEE SCOPE 05/16/24 @ [facility] PAST MEDICAL HISTORY: Past Medical History: Diagnosis Date Abnormal PFT Abnormal stress test Allergies Anemia Anxiety and depression ([facility]/HCC) Arthritis CAD in [place] artery ([facility]/HCC) Cancer of kidney ([facility]/HCC) Chronic back pain Chronic bronchitis ([facility]/HCC) Chronic cough Cigarette nicotine dependence Cough Diabetes mellitus type 2 in obese ([facility]/HCC) 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 ([facility]/HCC) Diabetic neuropathy, painful ([facility]/HCC) Factor V Leiden ([facility]/HCC) Factor 5 Leiden deficiency Family history of cancer High cholesterol ([facility]/HCC) History of DVT (deep vein thrombosis) history of DVT no PE History of kidney cancer History of pancreatitis History of pneumonia History of varicose veins Intermittent claudication ([facility]/HCC) Kidney problem spot on kidney Mucopurulent chronic bronchitis (CMS/HCC) Neuropathy ELENA (obstructive sleep apnea) Osteoporosis ([facility]/HCC) Pneumonia Sinusitis Tobacco user Type 2 diabetes mellitus with insulin therapy ([facility]/HCC) 03/24/2023 PAST SURGICAL HISTORY: Past Surgical History: Procedure Laterality Date APPENDECTOMY BACK SURGERY 2016 x3 BACK SURGERY 2018 laser BACK SURGERY 2019 CHOLECYSTECTOMY 1985 COLONOSCOPY 06/02/2022 /egd HEART CATH HYSTERECTOMY 1992 KNEE SURGERY Left 08/17/2017 [address]ctomy and chond[address] cummins LEG SURGERY Right 04/2020 stent MR ANGIOGRAM HEAD WO IV CONTRAST 07/29/2020 MR ANGIOGRAM HEAD WO IV CONTRAST SOCIAL HISTORY: Social History Occupational History Not on file Tobacco Use Smoking status: Every Day Current packs/day: 1.00 Average packs/day: 1 pack/day for 30.0 years (30.0 ttl pk-yrs) Types: Cigarettes Smokeless tobacco: Never Tobacco comments: 11-20 cigarettes/day Vaping Use Vaping status: Never Used Substance and Sexual Activity Alcohol use: Not Currently Comment: Caffeine: coffee,soda/pop: 10cups daily Drug use: Yes Types: Marijuana Sexual activity: Not Currently Partners: Male ALLERGIES: No Known Allergies MEDICATIONS: Current Outpatient Medications Medication Instructions apixaban (ELIQUIS) 2.5 mg, Oral, 2 times daily ASPIRIN 81 MG chewable tablet Aspir-81 atorvastatin (LIPITOR) 80 mg, Oral, Nightly cetirizine (ZYRTEC) 10 mg, Oral, Daily Continuous Blood Gluc Sensor (CelsiasStyle Joelle 2 Sensor) [facility] [place] USE TO TEST BLOOD SUGAR 4 TIMES DAILY cyanocobalamin (VITAMIN B-12) 50 mcg, Daily RT dapagliflozin (FARXIGA) 10 mg, Oral, Every morning DULoxetine (CYMBALTA) 30 mg, Oral, Daily, Total dose is 90mg daily ferrous sulfate 325 mg, Oral, Daily with breakfast fluticasone (Flonase) 50 MCG/ACT nasal spray 2 sprays, Each Nostril, Daily, Shake gently. Before first use, prime pump. After use, clean tip and replace cap. folic acid (FOLVITE) 1,000 mcg, Daily furosemide (LASIX) 40 mg, Oral, Daily insulin aspart protamine-insulin aspart (NovoLOG MIX 70/30 FLEXPEN) (70-30) 100 UNIT/ML injection 75 Units, Subcutaneous, 2 times daily with meals insulin pen needle (B-D UF III MINI PEN NEEDLES) 31G x 5 mm [facility] Twice a day use methocarbamol (ROBAXIN) 500 mg, Oral, Every 12 hours PRN metoprolol succinate XL (Toprol-XL) 50 MG 24 hr tablet Every 24 hours metoprolol succinate XL (TOPROL-XL) 25 mg, Every morning pantoprazole (PROTONIX) 40 mg, Oral, Daily before breakfast pregabalin (LYRICA) 100 mg, Oral, Every 8 hours REVIEW OF SYSTEMS: Review of Systems Constitutional: Negative for fatigue, fever and unexpected weight change. Eyes: Negative for redness and visual disturbance. Gastrointestinal: Negative for abdominal pain. Denies Indigestion Musculoskeletal: See note: Skin: Negative for color change and rash. Neurological: Negative for light-headedness and numbness. Vitals: Body mass index is 27.12 kg/m . PHYSICAL EXAM: Physical Exam Constitutional: General: She is not in acute distress. Appearance: Normal appearance. HENT: Head: Normocephalic and atraumatic. Right Ear: External ear normal. Left Ear: External ear normal. Nose: Nose normal. No rhinorrhea. Mouth/Throat: Mouth: Mucous membranes are moist. Pharynx: No posterior oropharyngeal erythema. Eyes: Extraocular Movements: Extraocular movements intact. Conjunctiva/sclera: Conjunctivae normal. Cardiovascular: Rate and Rhythm: Normal rate and regular rhythm. Pulses: Normal pulses. Heart sounds: No murmur heard. Pulmonary: Effort: Pulmonary effort is normal. No respiratory distress. Breath sounds: Normal breath sounds. Comments: Wheezes were cleared with cough Abdominal: Palpations: Abdomen is soft. Tenderness: There is no abdominal tenderness. Musculoskeletal: Cervical back: Normal range of motion and neck supple. Lymphadenopathy: Cervical: No cervical adenopathy. Skin: General: Skin is warm and dry. Findings: No erythema or rash. Neurological: General: No focal deficit present. Mental Status: She is alert and oriented to person, place, and time. Psychiatric: Mood and Affect: Mood normal. Behavior: Behavior normal. Orders Placed This Encounter Procedures CBC and differential Standing Status: Future Number of Occurrences: 1 Standing Expiration Date: 04/25/2025 Order Specific Question: Print requisition? Answer: No Basic metabolic panel Standing Status: Future Number of Occurrences: 1 Standing Expiration Date: 04/25/2025 Order Specific Question: Print requisition? Answer: No Comprehensive metabolic panel Standing Status: Future Number of Occurrences: 1 Standing Expiration Date: 04/25/2025 Order Specific Question: Print requisition? Answer: No ECG 12 lead Standing Status: Future Standing Expiration Date: 04/25/2025 ASSESSMENT: ICD-10-CM 1. Preop examination Z01.818 CBC and differential Basic metabolic panel Comprehensive metabolic panel ECG 12 lead CBC and differential Basic metabolic panel Comprehensive metabolic panel 2. Complex tear of medial meniscus of right knee, unspecified whether old or current tear, subsequent encounter S83.649C PLAN: This patient presents for preadmission testing for upcoming surgery. Complete history with medical, surgery, and current allergy and medication list obtained. Consent for surgery signed and witnessed after verbal consent to perform surgery received. All questions answered and proposed surgery scheduled. 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 documented in this encounter [facility] 04-27-2024 Note [place] [facility] Subjective Elmer Ellis is a 58 y.o. year old female patient being seen for pre-op clearance. She is scheduled for knee scope with Dr. Beal on 05/16/2024. She was switched from Xarelto to Eliquis. She hasn't been taking furosemide due to frequent urination. LE edema is no worse than normal. Denies chest pain. She will have routine labs soon for PCP. 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 ([facility]) Diabetic neuropathy, painful ([facility]) Encounter for annual wellness visit [...] of the vagina Elevated alkaline phosphatase level PAD (peripheral artery disease) Claudication Chronic kidney disease, stage 3a (CMS/HCC) Diabetes (CMS/HCC) Type 2 diabetes mellitus with insulin therapy (CMS/HCC) Dizziness and giddiness Pre-operative clearance Primary hypertension Type 2 diabetes mellitus with diabetic chronic kidney disease (CMS/HCC) Family History Problem Relation Name Age of Onset Diabetes Mother Heart attack Mother Other (epilepsy) Mother Coronary artery disease Mother Diabetes Father Coronary artery disease Father Heart attack Maternal Grandfather Social History Tobacco Use Smoking status: Every Day Current packs/day: 1.00 Types: Cigarettes Smokeless tobacco: Never Substance Use Topics Alcohol use: Not Currently HPI Elmer is seen in follow-up. She is a 58-year-old woman with history of morbid obesity, diabetes [...] left DVT post knee surgery and she was on Xarelto for that. She reports that Dr. Ba told her that she will need to be on lifelong anticoagulation due to Factor V Ley[place]. Xarelto was recently switched to Eliquis. At her prior visit with CARVING MACHINE OPERATOR Niyah Pop on 04/27/2019 she was complaining [...] with aspirin and Plavix. Pletal was stopped. Previously she was discovered to have hemoglobin of 7.3 and GI bleeding [melena]. She underwent endoscopy with no significant findings. She was treated with intravenous iron. Her hemoglobin improved. After visit with me in May 2022 I told her to stop Plavix. At most recent visit of 08/18/2023 and to investigate her symptoms of claudication I checked an [place]. I also investigated shortness of breath with an echo and a stress test. Her echocardiogram and stress test were within normal limits. The ABIs were reduced on the right. On 10/19/2023 I proceeded with lower extremity angiography and intervention. There was a 90% in-stent restenosis in the right SFA that was treated by drug-coated balloon angioplasty. Today she is seen in follow-up. She needs to undergo a right knee scope and needs clearance for that. She denies chest pain. She has no significant shortness of breath with exertion. No p (more content not included)... [facility] 04-17-2024 Telephone encounter Note Spoke to pt and explained that she was unfortunately not on the surgery schedule for April 23. I scheduled her for May 16 @ [facility]. I faxed over a clearance request/plavix/eliquis protocol to cardiology. She was grateful for call. [facility] 04-17-2024 Miscellaneous Notes Spoke to pt and explained that she was unfortunately not on the surgery schedule for April 23. I scheduled her for May 16 @ [facility]. I faxed over a clearance request/plavix/eliquis protocol to cardiology. She was grateful for call. Patient called stating 04/23/24 works for her surgery as discussed. Please call patient to confirm so her can request the day off. Elmer called and was inquiring about her surgery date, she said that her needs to request off at his job for the date. Please advise [phone] documented in this encounter [facility] 04-17-2024 History of Present illness Narrative April 23 surgery Connor and connor called pt this morning- and wants her to sign onto social security to get medicare part D however she has tried. Pt is asking if we can try just continuing the elequis Images from the original note were not included. Elmer Ellis is a 58 y.o. female presents with chief complaint of Medicare Annual Wellness Visit Initial HPI: Diet:variety Activity: limited d/t knee pain upcoming surgery Mental Health Concerns: depression/anxiety more related to knee pain Falls in the last year: no Still driving: yes Do you pay your bills:yes Any hearing problems: no Any Vision problems: no Any Hospitalizations in the last year:none Specialist: cardiology, oncology, orthopedics, urology, HCPOA/Living Will: no Concerns: Diabetes She presents for her follow-up diabetic visit. She has type 2 diabetes mellitus. Hypoglycemia symptoms include sweats. Pertinent negatives for hypoglycemia include no dizziness, headaches, nervousness/anxiousness, seizures or tremors. Associated symptoms include fatigue and foot paresthesias. Pertinent negatives for diabetes include no blurred vision, no chest pain, no polydipsia, no polyphagia, no polyuria, no visual change and no weakness. There are no hypoglycemic complications. Symptoms are stable. Diabetic complications include a CVA, heart disease, peripheral neuropathy and PVD. Risk factors for coronary artery disease include diabetes mellitus, dyslipidemia, hypertension, obesity, sedentary lifestyle and tobacco exposure. Current diabetic treatment includes insulin injections. When asked about meal planning, she reported none. She never participates in exercise. Her overall blood glucose range is 180-200 mg/dl. An ROXANNE inhibitor/angiotensin II receptor zhao is not being taken. She does not see a career placement services counselor.Eye exam is not current. Hypertension This is a chronic problem. The current episode started more than 1 year ago. The problem is unchanged. The problem is controlled. Associated symptoms include sweats. Pertinent negatives include no blurred vision, chest pain, headaches, palpitations, peripheral edema or shortness of breath. Risk factors for coronary artery disease include diabetes mellitus, dyslipidemia, obesity, sedentary lifestyle and smoking/tobacco exposure. Hypertensive end-organ damage includes kidney disease, CAD/VT, CVA and PVD. SUBJECTIVE: MEDICATIONS: Current Outpatient Medications Medication Instructions ASPIRIN 81 MG chewable tablet -81 atorvastatin (LIPITOR) 80 mg, Oral, Nightly cetirizine (ZYRTEC) 10 mg, Oral, Daily clopidogrel (PLAVIX) 75 mg, Oral, Daily Continuous Blood Gluc Sensor (FreeStyle Joelle 2 Sensor) [facility] USE TO TEST BLOOD SUGAR 4 TIMES DAILY cyanocobalamin (VITAMIN B-12) 50 mcg, Daily RT dapagliflozin (FARXIGA) 10 mg, Oral, Every morning DULoxetine (CYMBALTA) 30 mg, Oral, Daily, Total dose is 90mg daily ferrous sulfate 325 mg, Oral, Daily with breakfast fluticasone (Flonase) 50 MCG/ACT nasal spray 2 sprays, Each Nostril, Daily, Shake gently. Before first use, prime pump. After use, clean tip and replace cap. folic acid (FOLVITE) 1,000 mcg, Daily furosemide (LASIX) 40 mg, Oral, Daily insulin aspart protamine-insulin aspart (NovoLOG MIX 70/30 FLEXPEN) (70-30) 100 UNIT/ML injection 75 Units, Subcutaneous, 2 times daily with meals insulin pen needle (B-D UF III MINI PEN NEEDLES) 31G x 5 mm [facility] Twice a day use methocarbamol (ROBAXIN) 500 mg, Oral, Every 12 hours PRN metoprolol succinate XL (Toprol-XL) 50 MG 24 hr tablet Every 24 hours metoprolol succinate XL (TOPROL-XL) 25 mg, Every morning pantoprazole (PROTONIX) 40 mg, Oral, Daily before breakfast pregabalin (LYRICA) 100 mg, Oral, Every 8 hours rivaroxaban (XARELTO) 10 mg, Oral, Daily ALLERGIES: No Known Allergies REVIEW OF SYMPTOMS: Review of Systems Constitutional: Positive for fatigue. Negative for appetite change, chills and fever. HENT: Negative for congestion, ear pain and sore throat. Eyes: Negative for blurred vision, pain, discharge, redness and visual disturbance. Respiratory: Positive for cough. Negative for shortness of breath and wheezing. Cardiovascular: Negative for chest pain, palpitations and leg swelling. Gastrointestinal: Negative for abdominal pain, blood in stool, constipation, diarrhea, nausea and vomiting. Genitourinary: Negative for difficulty urinating, dysuria and frequency. Musculoskeletal: Positive for arthralgias. Negative for back pain, joint swelling and myalgias. Skin: Negative for rash and wound. Neurological: Negative for dizziness, tremors, seizures, syncope, weakness and headaches. Psychiatric/Behavioral: Negative for behavioral problems, self-injury and suicidal ideas. The patient is not nervous/anxious. Hematological: Does not bruise/bleed easily. Endocrine: Negative for polydipsia, polyphagia and polyuria. Allergic/Immunologic: Negative for environmental allergies and food allergies. PAST MEDICAL HISTORY Past Medical History: Diagnosis Date Abnormal PFT Abnormal stress test Allergies Anemia Anxiety and depression ([facility]) Arthritis CAD in [place] artery ([facility]) Cancer of kidney ([facility]) Chronic back pain Chronic bronchitis ([facility]) Chronic cough Cigarette nicotine dependence Cough Diabetes mellitus type 2 in obese ([facility]) 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 [place] Diabetic neuropathy, painful ([facility]) Factor V Leiden ([facility]) Factor 5 Leiden deficiency Family history of cancer High cholesterol ([facility]) History of DVT (deep vein thrombosis) history of DVT no PE History of kidney cancer History of pancreatitis History of pneumonia History of varicose veins Intermittent claudication ([facility]) Kidney problem spot on kidney Mucopurulent chronic bronchitis ([facility]) Neuropathy ELENA (obstructive sleep apnea) Osteoporosis ([facility]) Pneumonia Sinusitis Tobacco user Type 2 diabetes mellitus with insulin therapy ([facility]) 03/24/2023 Past Surgical History: Procedure Laterality Date [...] and maternal grandfather. OBJECTIVE: Visit Vitals BP 120/72 (BP Location: Left arm, Patient Position: Sitting, BP Cuff Size: Large adult) Pulse 76 Temp 98.7 F (Temporal) Resp 20 Wt 284 lb 3.2 oz SpO2 97% BMI 48.78 kg/m OB Status Unknown Smoking Status Every Day BSA 2.41 m Physical Exam Vitals and nursing note reviewed. Constitutional: General: She is not in acute distress. Appearance: Normal appearance. She is obese. She is not ill-appearing or diaphoretic. HENT: Head: Normocephalic and atraumatic. Right Ear: [...] is normal. Breath sounds: Normal breath sounds. No wheezing or rales. Abdominal: General: Bowel sounds are normal. There is no distension. Palpations: Abdomen is soft. There is no mass. Tenderness: There is no abdominal tenderness. Musculoskeletal: General: Normal range of motion. Cervical back: Normal range of motion and neck supple. Right lower leg: Edema present. Left lower leg: Edema present. Comments: Trace edema bilat pre tibial Lymphadenopathy: Cervical: No cervical adenopathy. Skin: General: Skin is warm and dry. Capillary Refill: Capillary refill takes 2 to 3 seconds. Findings: No rash. Neurological: General: No focal deficit present. Mental Status: She is alert and oriented to person, place, and time. Psychiatric: Mood and Affect: Mood normal. Behavior: Behavior normal. Thought Content: Thought content normal. Judgment: Judgment normal. ASSESSMENT AND PLAN: Follow up in about 3 months (around 07/15/2024) for Recheck. Problem List Items Addressed This Visit Class 3 severe obesity with serious comorbidity and body mass index (BMI) of 45.0 to 49.9 in adult (CMS/[facility]) Discussed with patient their BMI (actual, verses recommended). We have also discussed lifestyle modifications: attempts to perform physical activity as chronic conditions allow, also to monitor dietary intake: increasing protein/fruits/veggies and lowering carb intake (unless contraindicated). Limit sodas, juices, and sugary drinks. 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 Options for quitting smoking include: cold turkey, hypnosis, acupuncture, nicotine replacement meds (gum, lozenges, and patches), Buproprion, and Varenicline. At this time pt is encouraged to evaluate their goals for wanting to quit smoking, and reach out to provider when ready to start this process Malignant neoplasm of unspecified kidney, except renal pelvis ([facility]) - Primary Continue with specialty for monitoring Unspecified chronic bronchitis ([facility]) Recommend quitting smoking Osteoporosis ([facility]) DEXA scan will order Relevant Orders DEXA bone density Type 2 diabetes mellitus with diabetic neuropathy, with long-term current use of insulin ([facility]) Freq foot checks for wounds, callouses, or s/s infection Continue with pregabalin and adequate blood sugar control OARRS reviewed Relevant Medications dapagliflozin (Farxiga) 10 MG Type 2 diabetes mellitus with insulin therapy ([facility]) Discussion with pt about her current insulin therapy Consider change to basal and bolus insulin for possible better coverage Check blood sugars daily, notify if <70 [...] diet low in carbohydrates, and simple sugars. Metfromin too severe diarrhea, cannot take GLP 1's d/t pancreatitis Current med: insulin, statin, and asa A1c 7.4% 2/25/25 (prior was 8.3%) Low blood sugars 2-3 times week, takes evening insulin prior to bed, will have her change that to breakfast and supper time Relevant Orders POCT glycosylated hemoglobin (Hb A1C) docked device (Completed) Basic metabolic panel Encounter for annual wellness visit (AWV) in Medicare patient Reviewed Ht/Wt/BMI Recommend eye exam yearly Recommend dental exams twice a year Balance work/leisure activities Exercises is recommended most days of the week (appropriate as chronic conditions allow) Follow up yearly and prn Gastroesophageal reflux disease without esophagitis Relevant Medications pantoprazole (ProtoNix) 40 MG EC tablet Bilateral lower extremity edema Limit sodium intake, elevate legs as much as possible Current meds: lasix Environmental and seasonal allergies Relevant Medications cetirizine (ZyrTEC) 10 MG tablet fluticasone (Flonase) 50 MCG/ACT nasal spray PAD (peripheral artery disease) ([facility]) Continue anti coagulation, statin therapy Type 2 diabetes mellitus with diabetic chronic kidney disease ([facility]) Lab monitoring and goal of adequate blood sugar and blood pressure control Chronic kidney disease, stage 3a (HCC) (CMS/[facility]) Risk factor modification Keep DM and HTN near goal Primary hypertension ([facility]/HCC) Please check blood pressure daily and record DASH diet Limit caffeine Take medication as directed Contact office if chest pain, pressure, dizziness, shortness of breath, swelling legs Recommend slow position changes Current meds: b zhao, Relevant Orders Basic metabolic panel Encounter for screening mammogram for malignant neoplasm of breast Mammogram was ordered 01/14, still not completed Would recommend getting this done and will order DEXA too RESOLVED: Morbid (severe) obesity due to excess calories (CMS/[facility]) Body mass index (BMI) 45.0-49.9, adult (CMS/HCC) Mixed hyperlipidemia (CMS/HCC) On statin therapy Check labs yearly and prn dose changes Associated Problem(s): Mixed hyperlipidemia (CMS/HCC) On statin therapy Check labs yearly and prn dose changes Associated Problem(s): Tobacco user The patient has been advised of the risks of continued smoking: stroke, VT, all forms of cancer, lung disease, and . Options for quitting smoking include: cold turkey, hypnosis, acupuncture, nicotine replacement meds (gum, lozenges, and patches), Buproprion, and Varenicline. At this time pt is encouraged to evaluate their goals for wanting to quit smoking, and reach out to provider when ready to start this process Associated Problem(s): Encounter for screening mammogram for malignant neoplasm of breast Mammogram was ordered 01/14, still not completed Would recommend getting this done and will order DEXA too Associated Problem(s): Encounter for annual wellness visit (AWV) in Medicare patient Reviewed Ht/Wt/BMI Recommend eye exam yearly Recommend dental exams twice a year Balance work/leisure activities Exercises is recommended most days of the week (appropriate as chronic conditions allow) Hand out on Living Will and HCPOA Follow up yearly and prn Associated Problem(s): Anxiety and depression (CMS/HCC) Current meds: duloxetine PHQ 9=13 JUAN 7=11 Does not feel dose needs adjusted, her mood and anxiety are worsened as she has been having ongoing knee pain and following with Ortho, and is to have surgery next week for meniscus repair Associated Problem(s): Factor V Leiden (CMS/HCC) Is on xarelto normally, temporary change to eliqus until we can possibly get Xarelto through Pt Assistance Forms have been completed, received a denial they want her to apply for Part D medicare, she has been denied this We will try to see about eliquis then Associated Problem(s): Type 2 diabetes mellitus with insulin therapy ([facility]) Discussion with pt about her current insulin therapy Consider change to basal and bolus insulin for possible better coverage Check blood sugars daily, notify if <70 [...] diet low in carbohydrates, and simple sugars. 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 We have also discussed lifestyle modifications: attempts to perform physical activity as chronic conditions allow, also to monitor dietary intake: increasing protein/fruits/veggies and lowering carb intake (unless contraindicated). Limit sodas, juices, and sugary drinks. Chronic conditions and PMH limit many options for med treatment, and also physical activity Associated Problem(s): Osteoporosis (CMS/HCC) DEXA scan will order Associated Problem(s): Bilateral lower extremity edema Limit sodium intake, elevate legs as much as possible Current meds: lasix Associated Problem(s): Malignant neoplasm of unspecified kidney, except renal pelvis (CMS/HCC) Continue with specialty for monitoring Associated Problem(s): Chronic kidney disease, stage 3a (HCC) (CMS/HCC) Risk factor modification Keep DM and HTN near goal Associated Problem(s): Primary hypertension (CMS/HCC) Please check blood pressure daily and record DASH diet Limit caffeine Take medication as directed Contact office if chest pain, pressure, dizziness, shortness of breath, swelling legs Recommend slow position changes Current meds: b zhao, Associated Problem(s): PAD (peripheral artery disease) ([facility]) Continue anti coagulation, statin therapy Associated Problem(s): CAD in [place] artery ([facility]) Cont statin, b zhao, asa, cardiology Aggressive risk factor modification Associated Problem(s): Unspecified chronic bronchitis ([facility]) Recommend quitting smoking Associated Problem(s): Type 2 diabetes mellitus with diabetic neuropathy, with long-term current use of insulin ([facility]) Freq foot checks for wounds, callouses, or s/s infection Continue with pregabalin and adequate blood sugar control OARRS reviewed Associated Problem(s): ELENA (obstructive sleep apnea) .PASHTO documented in this encounter [facility] 04-17-2024 Instructions Jenny Borrego NP - 04/17/2024 1:00 PM EST Mammogram and bone density: will fax to yun ext [phone] Get labs Change times on insulin to breakfast and supper documented in this encounter [facility] 04-16-2024 Telephone encounter Note Patient called stating 04/23/24 works for her surgery as discussed. Please call patient to confirm so her can request the day off. [facility] 04-13-2024 Telephone encounter Note Elmer called and was inquiring about her surgery date, she said that her needs to request off at his job for the date. Please advise [phone] [facility] 04-06-2024 History of Present illness Narrative Images from the original note were not included. HISTORY OF PRESENT ILLNESS: EST PT Elmer Ellis is an 58 y.o. @ female. EST PT-PREVIOUSLY SAW DORI WESLEY ON 02/27/24; RECHECK (R) ANKLE ACHILLES INJURY, RECHECK (R) KNEE PAIN; DISCUSS POSSIBLE (R) KNEE SURGERY. --(R) ACHILLES INJURY, DOI 11/18/23 (16 WEEKS). HUAN: SHE WAS STEPPING UP ON A STEP AND FELT A POP . PAIN AND WEAKNESS IN ANKLE, WENT TO [facility] 11/19/23 AND HAD XRAY, TREATED W/ PERCOCET AND ORTHO REFERRAL. XRAY (R) ANKLE 07/10/23 @ [facility] VENOUS DOPPLER 07/10/23 @ [facility] XRAY (R) ANKLE 11/19/23 @ [facility] MDP 02/27/24 MRI (R) ANKLE 02/09/24 IN [facility] P.T- ORDERED BY DORI WESLEY 02/27/24 ( PATIENT HAS NOT GONE, WANTED TO SEE DR. BEAL FIRST. CAM BOOT 11/22/23 PRESENTS IN W/C TODAY WEARING CAM BOOT, ONLY TAKES OFF TO SHOWER. PAIN IS POSTERIOR ANKLE, INTERMITTENT. DENIES TOPICALS. ADMITS CONSTANT SWELLING, NOTING IMPROVEMENT. TAKING MARIJUANA GUMMIES FOR PAIN, NOTES TAKES THE EDGE OFF. ALSO TAKES IBU PRN. + N/T B/L FEET DUE TO NEUROPATHY. --(R) KNEE PAIN; S/P MDP 02/27/24 (1 WEEK, 4 DAYS); HERE TO DISCUSS SURGERY. XRAY (R) KNEE 02/27/24 IN [facility] MRI (R) KNEE 02/21/24 IN [facility] DEPO MEDROL INJ 02/07/18, 12/20/23 MDP 02/26. W/ SOME RELIEF NO P.T NO PAIN MGMT PAIN ANTERIOR/MEDIAL KNEE, CAN BE SHARP AND STABBING. WORSE W/ WB ACTIVITIES. AVOIDS STAIRS. PT NOTES THAT THE PAIN IS CONTINUE AND GETTING WORSE. TAKING MARIJUANA GUMMIES (HS) AND TAKING IBU. USING ICE AND ELEVATION. + GIVING OUT SENSATION. DENIES N/T. + SWELLING. WARM TO TOUCH. + GRINDING. PAIN WAKES HER AT NIGHT. 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 CUMMINS. ALLERGIES: No Known Allergies HOME MEDICATIONS: Current Outpatient Medications Medication Instructions ASPIRIN 81 MG chewable tablet Aspir-81 atorvastatin (LIPITOR) 80 mg, Oral, Nightly cetirizine (ZYRTEC) 10 mg, Oral, Daily clopidogrel (PLAVIX) 75 mg, Oral, Daily Continuous Blood Gluc Sensor (FreeStyle Joelle 2 Sensor) [facility] USE TO TEST BLOOD SUGAR 4 TIMES DAILY cyanocobalamin (VITAMIN B-12) 50 mcg, Daily RT dapagliflozin (FARXIGA) 10 mg, Oral, Every morning DULoxetine (CYMBALTA) 30 mg, Oral, Daily, Total dose is 90mg daily ferrous sulfate 325 mg, Oral, Daily with breakfast fluticasone (Flonase) 50 MCG/ACT nasal spray 2 sprays, Each Nostril, Daily, Shake gently. Before first use, prime pump. After use, clean tip and replace cap. folic acid (FOLVITE) 1,000 mcg, Daily furosemide (LASIX) 40 mg, Oral, Daily insulin aspart protamine-insulin aspart (NovoLOG MIX 70/30 FLEXPEN) (70-30) 100 UNIT/ML injection 75 Units, Subcutaneous, 2 times daily with meals insulin pen needle (B-D UF III MINI PEN NEEDLES) 31G x 5 mm [facility] Twice a day use methocarbamol (ROBAXIN) 500 mg, Oral, Every 12 hours PRN methylPREDNISolone (Medrol Dospak) 4 MG tablets Follow schedule on package instructions metoprolol succinate XL (Toprol-XL) 50 MG 24 hr tablet Every 24 hours metoprolol succinate XL (TOPROL-XL) 25 mg, Every morning pantoprazole (PROTONIX) 40 mg, Oral, Daily before breakfast pregabalin (LYRICA) 100 mg, Oral, Every 8 hours rivaroxaban (XARELTO) 10 mg, Oral, Daily PHYSICAL EXAM: Knee Musculoskeletal Exam Gait Gait is normal. Antalgic: right Limp: right Gait additional comments: FWB in cam boot Inspection Leg length disparity: no discrepancy Right Erythema: none Effusion: none Edema: mild Ecchymosis: none Deformity: none Alignment: normal Palpation Right Increased warmth: none Masses: none Tenderness: present Tenderness comment: over the achilles Lateral joint line: moderate Medial joint line: moderate Patella: moderate Range of Motion Right Right knee range of motion is normal and full. Active extension: 10 Passive extension: 0 Active flexion: 90 Passive flexion: 125 Range of motion additional comments: + PAIN ON TERMINAL FLEXION AND EXTENSION Strength Right Right knee strength is normal. Extension: 5/5. Extension is affected by pain. Flexion: 5/5. Flexion is affected by pain. Instability Right Instability signs: none - stable Varus stress grade: normal Valgus stress grade: normal Anterior drawer: normal Medial Aron test: positive Neurovascular Right Right knee neurovascular exam is normal. Pulses - PT: normal Posterior tibial: 2+ Capillary refill: warm and well-perfused Special Signs Right Right knee special signs are normal. Patellar apprehension: none Special signs additional comments: negative church sign General Constitutional: appears stated age Labored breathing: no Psychiatric: normal mood and affect Neurological: alert Skin: intact Lymphadenopathy: none Vitals: There is no height or weight on file to calculate BMI. Tobacco Use: High Risk (04/06/2024) Patient History Smoking Tobacco Use: Every Day Smokeless Tobacco Use: Never Passive Exposure: Not on file Alcohol Use: Not At Risk (03/24/2023) AUDIT-C Frequency of Alcohol Consumption: Never Average Number of Drinks: Patient does not drink Frequency of Binge Drinking: Never IMAGING: Procedures No orders of the defined types were placed in this encounter. ASSESSMENT: ICD-10-CM 1. Acute pain of right knee M25.561 2. Complex tear of medial meniscus of right knee, unspecified whether old or current tear, initial encounter S83.231A PLAN:We discussed her case with her at length. She is on Xarelto and Plavix for factor V Leiden. We discussed her restrictions and home exercise program with her at length. We have discussed both surgical and nonsurgical treatment options with her. We recommended a diagnostic and operative arthroscopy for medial meniscus tear. We'll see her back on the day of surgery pending medical clearance. Patient understands the risks and benefits of said treatment. We have discussed both surgical and nonsurgical treatment options with the patient at length and the risks and benefits associated with both. The patient is requesting surgical intervention because they have not responded to outpatient treatment options including but not limited to rest ice, and home exercise program. Pain and decreased range of motion are affecting the patient's ability to sleep and activities of daily living and we have recommended surgical intervention. Questions answered in laymen terms at the bedside. The diagnosis, home exercise plan and any ongoing restrictions/ recommendations reviewed. If unable to be reached in office, I recommend evaluation at nearest Emergency Room if any symptoms worsened or new symptoms develop for requiring urgent evaluation. documented in this encounter [facility] 03-09-2024 History of Present illness Narrative Images from the original note were not included. HISTORY OF PRESENT ILLNESS: EST PT Elmer Ellis is an 58 y.o. @ female. EST PT-PREVIOUSLY SAW DORI WESLEY ON 02/27/24; RECHECK (R) ANKLE ACHILLES INJURY, RECHECK (R) KNEE PAIN; DISCUSS POSSIBLE (R) KNEE SURGERY. (R) ACHILLES INJURY, DOI 11/18/23 (16 WEEKS). HUAN: SHE WAS STEPPING UP ON A STEP AND FELT A POP . PAIN AND WEAKNESS IN ANKLE, WENT TO [facility] 11/19/23 AND HAD XRAY, TREATED W/ PERCOCET AND ORTHO REFERRAL. XRAY (R) ANKLE 07/10/23 @ [facility] VENOUS DOPPLER 07/10/23 @ [facility] XRAY (R) ANKLE 11/19/23 @ [facility] MDP 02/27/24 MRI (R) ANKLE 02/09/24 IN [facility] P.T- ORDERED BY DORI WESLEY 02/27/24 ( PATIENT HAS NOT GONE, WANTED TO SEE DR. BEAL FIRST. CAM BOOT 11/22/23 PRESENTS IN W/C TODAY WEARING CAM BOOT, ONLY TAKES OFF TO SHOWER. PAIN IS POSTERIOR ANKLE, INTERMITTENT. DENIES TOPICALS. ADMITS CONSTANT SWELLING, NOTING IMPROVEMENT. TAKING MARIJUANA GUMMIES FOR PAIN, NOTES TAKES THE EDGE OFF. ALSO TAKES IBU PRN. + N/T B/L FEET DUE TO NEUROPATHY. (R) KNEE PAIN; S/P MDP 02/27/24 (1 WEEK, 4 DAYS); HERE TO DISCUSS SURGERY. XRAY (R) KNEE 02/27/24 IN [facility] MRI (R) KNEE 02/21/24 IN [facility] DEPO MEDROL INJ 02/07/18, 12/20/23 MDP 02/26. W/ SOME RELIEF NO P.T NO PAIN MGMT PAIN ANTERIOR/MEDIAL KNEE, CAN BE SHARP AND STABBING. WORSE W/ WB ACTIVITIES. AVOIDS STAIRS. TAKING MARIJUANA GUMMIES AND TAKING IBU. USING ICE AND ELEVATION. + GIVING OUT SENSATION. DENIES N/T. + SWELLING. + GRINDING. PAIN WAKES HER AT NIGHT. 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 CUMMNIS. ALLERGIES: No Known Allergies HOME MEDICATIONS: Current Outpatient Medications Medication Instructions ASPIRIN 81 MG chewable tablet Aspir-81 atorvastatin (LIPITOR) 80 mg, Oral, Nightly B-D UF III MINI PEN NEEDLES 31G X 5 MM [facility] USE TWICE DAILY cetirizine (ZYRTEC) 10 mg, Oral, Daily clopidogrel (PLAVIX) 75 mg, Daily Continuous Blood Gluc Sensor (FreeStyle Joelle 2 Sensor) [facility] USE TO TEST BLOOD SUGAR 4 TIMES DAILY cyanocobalamin (VITAMIN B-12) 50 mcg, Daily RT dapagliflozin (FARXIGA) 10 mg, Oral, Every morning DULoxetine (CYMBALTA) 30 mg, Oral, Daily, Total dose is 90mg daily DULoxetine (CYMBALTA) 60 mg, Oral, Daily ferrous sulfate 325 (65 Fe) MG tablet TAKE 1 TABLET (325 MG) BY MOUTH IN THE MORNING. TAKE WITH MEALS. fluticasone (Flonase) 50 MCG/ACT nasal spray 2 sprays, Each Nostril, Daily, Shake gently. Before first use, prime pump. After use, clean tip and replace cap. folic acid (FOLVITE) 1,000 mcg, Daily furosemide (LASIX) 40 mg, Oral, Daily insulin aspart protamine-insulin aspart (NovoLOG MIX 70/30 FLEXPEN) (70-30) 100 UNIT/ML injection 75 Units, Subcutaneous, 2 times daily with meals methocarbamol (ROBAXIN) 500 mg, Oral, Every 12 hours PRN methylPREDNISolone (Medrol Dospak) 4 MG tablets Follow schedule on package instructions metoprolol succinate XL (Toprol-XL) 50 MG 24 hr tablet Every 24 hours metoprolol succinate XL (TOPROL-XL) 25 mg, Every morning pantoprazole (PROTONIX) 40 mg, Oral, Daily before breakfast pregabalin (LYRICA) 100 mg, Oral, Every 8 hours rivaroxaban (XARELTO) 10 mg, Oral, Daily PHYSICAL EXAM: Knee Musculoskeletal Exam Gait Antalgic: right Limp: right Gait additional comments: FWB in cam boot Inspection Right Erythema: none Effusion: none Edema: mild Ecchymosis: none Deformity: none Palpation Right Tenderness: present Tenderness comment: over the achilles Lateral joint line: moderate Medial joint line: moderate Patella: moderate Range of Motion Right Active extension: 10 Passive extension: 0 Active flexion: 90 Passive flexion: 125 Neurovascular Right Posterior tibial: 2+ Special Signs Special signs additional comments: negative church sign Vitals: There is no height or weight on file to calculate BMI. Tobacco Use: High Risk (03/09/2024) Patient History Smoking Tobacco Use: Every Day Smokeless Tobacco Use: Never Passive Exposure: Not on file Alcohol Use: Not At Risk (03/24/2023) AUDIT-C Frequency of Alcohol Consumption: Never Average Number of Drinks: Patient does not drink Frequency of Binge Drinking: Never IMAGING: Procedures Orders Placed This Encounter Procedures Ambulatory referral to Physical Therapy PER PROVIDER 3 TIMES A WEEK AND TAPER DOWN. WOULD LIKE TO HAVE PATIENT TRANSITION OUT OF WALKING BOOT TO WEIGHT BARING TOLERATED. THIS IS TO STRENGTHEN AND IMPROVE ROM OF THE (R) ANKLE. Standing Status: Future Standing Expiration Date: 09/06/2024 Referral Priority: Routine Referral Type: Consultation Referral Reason: Specialty Services Required Referral Location: [facility] Scheduling Requested Specialty: Physical Therapy Number of Visits Requested: 1 ASSESSMENT: ICD-10-CM 1. Acute pain of right knee M25.561 2. Ruptured, tendon, Achilles, right, subsequent encounter S86.011D Ambulatory referral to Physical Therapy 3. Primary osteoarthritis of right knee M17.11 PLAN:We discussed her case with her at length. She is on Xarelto and Plavix for factor V Leiden . According to her. We have discussed her case with her at length. We need her walking better, we will gradually wean her from her [employer] boot and physical therapy. To weight-bear as tolerated and increase strength and range of motion of right ankle. If her symptoms persist or worsen for her knee, we may have to decide if were going to proceed with an arthroscopy for cartilage tears documented on MRI versus total knee arthroplasty at a tertiary care center. Questions answered in laymen terms at the bedside. The diagnosis, home exercise plan and any ongoing restrictions/ recommendations reviewed. If unable to be reached in office, I recommend evaluation at nearest Emergency Room if any symptoms worsened or new symptoms develop for requiring urgent evaluation. documented in this encounter [facility] 03-05-2024 Telephone encounter Note Noted. Thank you. [facility] 03-05-2024 Miscellaneous Notes Noted. Thank you. Also tried to call and was unable to leave . If patient calls back let me know as we will need to re-send PT order if she is willing to go. Received no attempt if being contacted following 4 trials. LM w/ daughter asking her if she could relay message to mother to contact so we can schedule PT Eval for treatment of ruptured achillis tendon. Tried to contact to offer scheduling for PT Eval; voicemail is full. Will try again. referral needs to be sent back for auth documented in this encounter [facility] 03-05-2024 Telephone encounter Note Also tried to call and was unable to leave . If patient calls back let me know as we will need to re-send PT order if she is willing to go. [facility] 03-02-2024 Telephone encounter Note Received no attempt if being contacted following 4 trials. [facility] 03-01-2024 Telephone encounter Note LM w/ daughter asking her if she could relay message to mother to contact so we can schedule PT Eval for treatment of ruptured achillis tendon. [facility] 02-28-2024 Telephone encounter Note Tried to contact to offer scheduling for PT Eval; voicemail is full. Will try again. referral needs to be sent back for auth [facility] 02-27-2024 History of Present illness Narrative Images from the original note were not included. HISTORY OF PRESENT ILLNESS: EST PT Elmer Ellis is an 58 y.o. @ female. RT ankle: here for MRI results [facility] 02/09/24 RT achilles injury x 14 weeks 3 days, (doi 11/18/23) Pt was stepping up a step and felt pop and pain/weakness in ankle. Went to [facility] 11/18 with XR, percocet RX and ortho referral. Presents in W/C today wearing CAM boot, only takes off to shower. Denies topicals. Admits constant swelling. Admits N/T in B/L feet due to neuropathy. Prior history of RT ankle pain (07/02/23) Went to [facility] ER 07/10/23, followed up with Dr Cummins 07/12/23, voltaren gel and heel lifts recommended. Prior treatment: [facility] ER with XR 07/10/23 and venous doppler, CAM boot, gummies, [facility] ER 11/19/23 with XR, MRI [facility] 02/09/24 RT knee: here for MRI results [facility] 02/21/24 Had a flare up 12/17/23 (10 weeks 2 days). Was tx by Dr Cummins 12/19 with injection with 0% improvement. Pain anterior-medial knee, can be sharp and stabbing. Worse with WB activities, avoids stairs. Pain 10/31 with WB. Taking marijuana gummies and taking IBU. Using ice and elevation. Admits giving out sensation. Denies N/T. Admits swelling. Admits grinding. Wakes pt at HS. Tx: depo inj 02/07/18, marijuana gummies, IBU, ice, elevating, depo injx 12/20/23, MRI [facility] 02/21/24 *On plavix and xarelto for blood clotting disorder* ALLERGIES: No Known Allergies HOME MEDICATIONS: Current Outpatient Medications Medication Instructions ASPIRIN 81 MG chewable tablet Aspir-81 atorvastatin (LIPITOR) 80 mg, Oral, Nightly B-D UF III MINI PEN NEEDLES 31G X 5 MM misc USE TWICE DAILY cetirizine (ZYRTEC) 10 mg, Oral, Daily clopidogrel (PLAVIX) 75 mg, Daily Continuous Blood Gluc Sensor (FreeStyle Joelle 2 Sensor) bone and [facility] USE TO TEST BLOOD SUGAR 4 TIMES DAILY cyanocobalamin (VITAMIN B-12) 50 mcg, Daily RT dapagliflozin (FARXIGA) 10 mg, Oral, Every morning DULoxetine (CYMBALTA) 30 mg, Oral, Daily, Total dose is 90mg daily DULoxetine (CYMBALTA) 60 mg, Oral, Daily fluticasone (Flonase) 50 MCG/ACT nasal spray 2 sprays, Each Nostril, Daily, Shake gently. Before first use, prime pump. After use, clean tip and replace cap. folic acid (FOLVITE) 1,000 mcg, Daily furosemide (LASIX) 40 mg, Oral, Daily insulin aspart protamine-insulin aspart (NovoLOG MIX 70/30 FLEXPEN) (70-30) 100 UNIT/ML injection 75 Units, Subcutaneous, 2 times daily with meals methocarbamol (ROBAXIN) 500 mg, Oral, Every 12 hours PRN methylPREDNISolone (Medrol Dospak) 4 MG tablets Follow schedule on package instructions metoprolol succinate XL (Toprol-XL) 50 MG 24 hr tablet Every 24 hours metoprolol succinate XL (TOPROL-XL) 25 mg, Every morning pantoprazole (PROTONIX) 40 mg, Oral, Daily before breakfast pregabalin (LYRICA) 100 mg, Oral, Every 8 hours rivaroxaban (XARELTO) 10 mg, Oral, Daily PHYSICAL EXAM: Right Ankle Exam Tenderness Right ankle tenderness location: achilles. Swelling: mild Range of Motion Right ankle dorsiflexion: decreased. Right ankle plantar flexion: decreased. Muscle Strength Right ankle normal muscle strength: not stressed due to injury. Other Sensation: decreased (numbness) Comments: Presents in CAM boot. Right Knee Exam Tenderness The patient is experiencing tenderness in the medial joint line and lateral joint line. Range of Motion Extension: 0 Flexion: 90 Tests Aron: Medial - positive Lateral - positive Other Sensation: decreased Pulse: present Swelling: mild Vitals: There is no height or weight on file to calculate BMI. Tobacco Use: High Risk (01/30/2024) Patient History Smoking Tobacco Use: Every Day Smokeless Tobacco Use: Never Passive Exposure: Not on file Alcohol Use: Not At Risk (03/24/2023) AUDIT-C Frequency of Alcohol Consumption: Never Average Number of Drinks: Patient does not drink Frequency of Binge Drinking: Never IMAGING: I reviewed MRI of the right ankle dated 02/09/2024 at [facility] imaging which demonstrated severe Achilles tendinosis with diffuse thickening and areas of increased interstitial signal/tearing, otherwise appears intact. Apparent split tearing involving peroneus brevis I reviewed MRI of the right knee dated at [facility] imaging which demonstrated suspected complex tearing of the body through posterior horn of the medial meniscus and body through anterior horn of the lateral meniscus. There is also edema along the medial collateral ligament may be reactive to of the medial meniscus tear or due to MCL sprain. Procedures Orders Placed This Encounter Procedures XR knee 1 or 2 views right Order Specific Question: Is the patient ? Answer: No Order Specific Question: Reason for exam: Answer: pain Ambulatory referral to Physical Therapy Also being seen at our office for right medial/lateral meniscus tear but referral is for achilles tendon. Standing Status: Future Standing Expiration Date: 08/26/2024 Referral Priority: Routine Referral Type: Rehabilitation - Outpatient Referral Reason: Specialty Services Required Referred to Provider: Ben Raymond, PT Requested Specialty: Physical Therapy Number of Visits Requested: 1 ASSESSMENT: ICD-10-CM 1. Primary osteoarthritis of right knee M17.11 methylPREDNISolone (Medrol Dospak) 4 MG tablets 2. Acute pain of right knee M25.561 XR knee 1 or 2 views right 3. Ruptured, tendon, Achilles, right, subsequent encounter S86.011D Ambulatory referral to Physical Therapy 4. Complex tear of medial meniscus of right knee, unspecified whether old or current tear, initial encounter S83.231A 5. Complex tear of lateral meniscus of right knee, unspecified whether old or current tear, initial encounter S83.271A PLAN: RIGHT ANKLE: I reviewed Mri findings with patient and discussed treatment options. She states that her ankle is improving and that most of her pain is knee related. I recommend that patient start PT to work on ankle ROM and strengthening. She may gradually transition out of CAM boot and into ASO brace and shoes but should still wear CAM boot with increased pain and when ambulating for long period of time. RIGHT KNEE: I reviewed xray and MRI findings with patient. I educated patient that she does have osteoarthritis of the right knee and that her meniscus tears could be degenerative. She would like to discuss knee scope with Dr. Beal as she had knee scope on previous knee with good success. I will give MDP to help decreased inflammation and pain as last injection was only 9 weeks ago. Questions answered in laymen terms at the bedside. The diagnosis, home exercise plan and any ongoing restrictions/ recommendations reviewed. If unable to be reached in office, I recommend evaluation at nearest Emergency Room if any symptoms worsened or new symptoms develop for requiring urgent evaluation. Dori Wesley APRN-CARLO documented in this encounter [facility] 02-08-2024 Telephone encounter Note Attempted to call patient twice. Unable to leave , says it is full. She is having her MRI ankle done at [facility] so I put in the referral for her RT knee MRI to be done at [facility] also. Pending insurance. If approved, imaging will call patient to schedule. [facility] 02-08-2024 Miscellaneous Notes Attempted to call patient twice. Unable to leave VM, says it is full. She is having her MRI ankle done at [facility] so I put in the referral for her RT knee MRI to be done at [facility] also. Pending insurance. If approved, imaging will call patient to schedule. Patient called stating she has an MRI tomorrow for her ankle. She called requesting an MRI on her RT knee too. She stated she has talked to you and about her RT knee. I did let patient know we would not be able to do MRI that is already scheduled for her ankle tomorrow. Patient is requesting something for her RT Knee. She uses [facility] in [place]. Please advise. documented in this encounter [facility] 02-08-2024 Telephone encounter Note Patient called stating she has an MRI tomorrow for her ankle. She called requesting an MRI on her RT knee too. She stated she has talked to you and about her RT knee. I did let patient know we would not be able to do MRI that is already scheduled for her ankle tomorrow. Patient is requesting something for her RT Knee. She uses [facility] in [place]. Please advise. [facility] 01-30-2024 History of Present illness Narrative Images from the original note were not included. Subjective Patient ID: Elmer Ellis is a 58 y.o. female. RT ankle. RT achilles injury x 10 weeks 3 days, (doi 11/18/23) Pt was stepping up a step and felt pop and pain/weakness in ankle. Went to [facility] 11/18 with XR, percocet RX and ortho referral. She wore CAM boot until 12/16 when her RT knee flared up. Then she began wearing it again. FWB in CAM boot, only takes off to shower. Denies pain in ankle. Has been getting spasms in calf. Denies topicals. Admits constant swelling. Admits N/T in B/L feet due to neuropathy. Wakes pt at [facility]. Prior history of RT ankle pain (07/02/23) Went to [facility] ER 07/10/23, followed up with Dr Cummins 07/12/23, voltaren gel and heel lifts recommended. Prior treatment: [facility] ER with XR 07/10/23 the XR and venous doppler, CAM boot, gummies, [facility] ER 11/19/23 with XR RT knee 5 weeks and 6 days s/p RT knee depo injection 12/20/23 with 0% improvement. Had relief for only a few days. Had a flare up 12/17/23 (6 weeks 2 days). Was tx by Dr Cummins 12/19 with injection. Pain anterior-medial knee. Taking marijuana gummies and taking IBU. Using ice. Admits giving out sensation. Denies N/T. Admits swelling. Admits grinding. Wakes pt at [facility]. Elevating. Tx: depo inj 02/07/18, marijuana gummies, IBU, ice, elevating Objective This exam pertains to the right ankle Ortho Exam Knee Musculoskeletal Exam Gait Gait additional comments: FWB in cam boot Inspection Right Erythema: none Effusion: none Edema: mild Ecchymosis: none Deformity: none Palpation Right Tenderness: present Tenderness comment: over the achilles Neurovascular Right Posterior tibial: 2+ Special Signs Special signs additional comments: Positive church sign Assessment/Plan Encounter Diagnoses: ICD-10-CM 1. 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 We have also discussed lifestyle modifications: attempts to perform physical activity as chronic conditions allow, also to monitor dietary intake: increasing protein/fruits/veggies and lowering carb intake (unless contraindicated). Limit sodas, juices, and sugary drinks. Pt states she should have about 2 more months left with wearing her boot Right knee pain Images from the original note were not included. Elmer Ellis is a 58 y.o. female presents with chief complaint of No chief complaint on file. HPI: Low sugars below 70 couple times a week-if does not snack after dinner Am dose 10am, and evening dose 6pm Hypertension This is a chronic problem. The current episode started more than 1 year ago. The problem is unchanged. The problem is controlled. Pertinent negatives include no blurred vision, chest pain, headaches, orthopnea, palpitations, peripheral edema or shortness of breath. There are no associated agents to hypertension. Risk factors for coronary artery disease include diabetes mellitus, dyslipidemia, obesity, sedentary lifestyle, smoking/tobacco exposure and post-menopausal state. Past treatments include beta blockers. The current treatment provides significant improvement. There are no compliance problems. Hypertensive end-organ damage includes CAD/VT and PVD. There is no history of CVA. Diabetes She presents for her follow-up diabetic visit. She has type 2 diabetes mellitus. Her disease course has been stable. There are no hypoglycemic associated symptoms. Pertinent negatives for hypoglycemia include no dizziness, headaches, nervousness/anxiousness, seizures or tremors. Associated symptoms include fatigue and foot paresthesias. Pertinent negatives for diabetes include no blurred vision, no chest pain, no polydipsia, no polyphagia, no polyuria and no visual change. There are no hypoglycemic complications. Symptoms are stable. Diabetic complications include heart disease, peripheral neuropathy and PVD. Pertinent negatives for diabetic complications include no CVA. Risk factors for coronary artery disease include diabetes mellitus, dyslipidemia, hypertension, obesity, sedentary lifestyle and tobacco exposure. Current diabetic treatment includes insulin injections and oral agent (dual therapy). She is compliant with treatment all of the time. She has not had a previous visit with a dietitian. She never participates in exercise. Her breakfast blood glucose is taken after 10 am. Her breakfast blood glucose range is generally 140-180 mg/dl. Her bedtime blood glucose is taken after 11 pm. Her bedtime blood glucose range is generally <70 mg/dl. An ROXANNE inhibitor/angiotensin II receptor zhao is not being taken. Eye exam is not current. GERD She reports no abdominal pain, no belching, no chest pain, no coughing, no early satiety, no nausea, no sore throat, no water brash or no wheezing. This is a chronic problem. The problem occurs occasionally. Nothing aggravates the symptoms. Associated symptoms include fatigue. Pertinent negatives include no melena. Risk factors include obesity, NSAIDs and caffeine use. She has tried a PPI for the symptoms. The treatment provided significant relief. Past procedures include an EGD. SUBJECTIVE: MEDICATIONS: Current Outpatient Medications Medication Instructions ASPIRIN 81 MG chewable tablet Aspir-81 atorvastatin (LIPITOR) 80 mg, Oral, Nightly B-D UF III MINI PEN NEEDLES 31G X 5 MM [facility] USE TWICE DAILY cetirizine (ZYRTEC) 10 mg, Oral, Daily clopidogrel (PLAVIX) 75 mg, Daily Continuous Blood Gluc Sensor (FreeStyle Joelle 2 Sensor) [facility] USE TO TEST BLOOD SUGAR 4 TIMES DAILY cyanocobalamin (VITAMIN B-12) 50 mcg, Daily RT dapagliflozin (FARXIGA) 10 mg, Oral, Every morning DULoxetine (CYMBALTA) 30 mg, Oral, Daily, Total dose is 90mg daily DULoxetine (CYMBALTA) 60 mg, Oral, Daily ferrous sulfate 325 mg, Oral, Daily with breakfast fluticasone (Flonase) 50 MCG/ACT nasal spray 2 sprays, Each Nostril, Daily, Shake gently. Before first use, prime pump. After use, clean tip and replace cap. folic acid (FOLVITE) 1,000 mcg, Daily furosemide (LASIX) 40 mg, Oral, Daily insulin aspart protamine-insulin aspart (NovoLOG MIX 70/30 FLEXPEN) (70-30) 100 UNIT/ML injection 75 Units, Subcutaneous, 2 times daily with meals methocarbamol (ROBAXIN) 500 mg, Oral, Every 12 hours PRN metoprolol succinate XL (Toprol-XL) 50 MG 24 hr tablet Every 24 hours metoprolol succinate XL (TOPROL-XL) 25 mg, Every morning pantoprazole (PROTONIX) 40 mg, Oral, Daily before breakfast pregabalin (LYRICA) 100 mg, Oral, Every 8 hours rivaroxaban (XARELTO) 10 mg, Oral, Daily ALLERGIES: No Known Allergies REVIEW OF SYMPTOMS: Review of Systems Constitutional: Positive for fatigue. Negative for appetite change, chills and fever. HENT: Negative for congestion, ear pain and sore throat. Eyes: Negative for blurred vision, pain, discharge, redness and visual disturbance. Respiratory: Negative for cough, shortness of breath and wheezing. Cardiovascular: Negative for chest pain, palpitations, orthopnea and leg swelling. Gastrointestinal: Negative for abdominal pain, blood in stool, constipation, diarrhea, melena, nausea and vomiting. Genitourinary: Negative for difficulty urinating, dysuria and frequency. Musculoskeletal: Positive for arthralgias. Negative for back pain, joint swelling and myalgias. Skin: Negative for rash and wound. Neurological: Positive for numbness. Negative for dizziness, tremors, seizures, syncope and headaches. Psychiatric/Behavioral: Negative for behavioral problems, self-injury and suicidal ideas. The patient is not nervous/anxious. Hematological: Does not bruise/bleed easily. Endocrine: Negative for polydipsia, polyphagia and polyuria. Allergic/Immunologic: Negative for environmental allergies and food allergies. PAST MEDICAL HISTORY Past Medical History: Diagnosis Date Abnormal PFT Abnormal stress test Allergies Anemia Anxiety and depression (CMS/HCC) Arthritis CAD in [place] artery (CMS/HCC) Cancer of kidney (CMS/HCC) Chronic back pain [...] Type 2 diabetes mellitus with insulin therapy ([facility]/H[facility]) 03/24/2023 Past Surgical History: Procedure Laterality Date [...] and maternal grandfather. OBJECTIVE: Visit Vitals BP 110/76 (BP Location: Left arm, Patient Position: Sitting, BP Cuff Size: Adult long) Pulse 69 Temp 98.1 F (Temporal) Resp 19 Ht 5' 4 Wt 278 lb 9.6 oz Comment: with right boot SpO2 97% BMI 47.82 kg/m Smoking Status Every Day BSA 2.39 m Physical Exam Vitals and nursing note reviewed. [...] Normal pulses. Heart sounds: Normal heart sounds. No murmur heard. Pulmonary: Effort: Pulmonary effort is normal. Breath sounds: Normal breath sounds. No wheezing or rales. Abdominal: General: Bowel sounds are normal. There is no distension. Palpations: Abdomen is soft. There is no mass. Tenderness: There is no abdominal tenderness. Musculoskeletal: General: Swelling present. Normal range of motion. Cervical back: Normal range of motion and neck supple. Left lower leg: Edema present. Comments: Boot RLE d/t fracture Lymphadenopathy: Cervical: No cervical adenopathy. Skin: General: Skin is warm and dry. Capillary Refill: Capillary refill takes 2 to 3 seconds. Findings: No rash. Neurological: General: No focal deficit present. Mental Status: She is alert and oriented to person, place, and time. Psychiatric: Mood and Affect: Mood normal. Behavior: Behavior normal. Thought Content: Thought content normal. Judgment: Judgment normal. ASSESSMENT AND PLAN: Follow up in about 3 months (around 04/17/2024) for Recheck. Problem List Items Addressed This Visit Class 3 severe obesity with serious comorbidity and body mass index (BMI) of 45.0 to 49.9 in adult ([facility]) Discussed with patient their BMI (actual, verses recommended). We have also discussed lifestyle modifications: attempts to perform physical activity as chronic conditions allow, also to monitor dietary intake: increasing protein/fruits/veggies and lowering carb intake (unless contraindicated). Limit sodas, juices, and sugary drinks. 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 ([facility]) Recommend tight blood sugar control Needs eye exam Factor V Leiden ([facility]) Is on xarelto Relevant Medications clopidogrel (Plavix) 75 MG tablet ELENA (obstructive sleep apnea) Is working with dr vides for testing Type 2 diabetes mellitus with diabetic neuropathy, with long-term current use of insulin ([facility]) - Primary Continue with pregabalin OARRS reviewed Type 2 diabetes mellitus with insulin therapy ([facility]) Discussion with pt about her current insulin therapy Consider change to basal and bolus insulin for possible better coverage Check blood sugars daily, notify if <70 [...] diet low in carbohydrates, and simple sugars. A1c 8.3% Metfromin too severe diarrhea, cannot take GLP 1's d/t pancreatitis No dose changes Relevant Orders POCT glycosylated hemoglobin (Hb A1C) docked device (Completed) Gastroesophageal reflux disease without esophagitis Recommendations: freq small meals, nothing to eat or drink at least 2 hours prior to bed, limit caffeine, alcohol, as well as spicy foods Meds to limit or avoid if possible: NSAIDS Elevate HOB if possible Continue PPI therapy PAD (peripheral artery disease) ([facility]) Continue anti coagulation, statin therapy Type 2 diabetes mellitus with diabetic chronic kidney disease ([facility]) Chronic kidney disease, stage 3a (HCC) ([facility]) Risk factor modification Keep DM and HTN near goal Primary hypertension ([facility]) Please check blood pressure daily and record DASH diet Limit caffeine Take medication as directed Contact office if chest pain, pressure, dizziness, shortness of breath, swelling legs Recommend slow position changes Encounter for screening mammogram for malignant neoplasm of breast Relevant Orders Bilateral screening mammogram Associated Problem(s): Factor V Leiden ([facility]) Is on xarelto Associated Problem(s): Type 2 diabetes mellitus with insulin therapy ([facility]) Discussion with pt about her current insulin therapy Consider change to basal and bolus insulin for possible better coverage Check blood sugars daily, notify if <70 [...] diet low in carbohydrates, and simple sugars. A1c 8.3% Metfromin too severe diarrhea, cannot take GLP 1's d/t pancreatitis No dose changes Associated Problem(s): Chronic kidney disease, stage 3a (HCC) ([facility]) Risk factor modification Keep DM and HTN near goal Associated Problem(s): Primary hypertension ([facility]) Please check blood pressure daily and record DASH diet Limit caffeine Take medication as directed Contact office if chest pain, pressure, dizziness, shortness of breath, swelling legs Recommend slow position changes Associated Problem(s): Gastroesophageal reflux disease without esophagitis Recommendations: freq small meals, nothing to eat or drink at least 2 hours prior to bed, limit caffeine, alcohol, as well as spicy foods Meds to limit or avoid if possible: NSAIDS Elevate HOB if possible Continue PPI therapy Associated Problem(s): CAD in [place] artery ([facility]) Cont statin, b zhao, asa, cardiology Aggressive risk factor modification Associated Problem(s): PAD (peripheral artery disease) ([facility]) Continue anti coagulation, statin therapy Associated Problem(s): ELENA (obstructive sleep apnea) Is working with dr vides for testing Associated Problem(s): Type 2 diabetes mellitus with diabetic neuropathy, with long-term current use of insulin ([facility]) Continue with pregabalin OARRS reviewed documented in this encounter [facility] 01-16-2024 Instructions Jenny Borrego NP - 01/16/2024 1:40 PM EST No dose changes in insulin doses, A1c was 8.3% Mammogram at [facility] will call mammogram Eye exam documented in this encounter [facility] 12-20-2023 History of Present illness Narrative Associated Order(s): L Inj/Asp: R knee Post-Procedure Diagnose(s): Arthritis of right knee Images from the original note were not included. HISTORY OF PRESENT ILLNESS: Elmer Ellis is an 58 y.o. @ female. Follow up RT achilles injury RT ankle. RT achilles injury x 4 1/2 weeks, doi 11/18/23) Pt was stepping up a step and felt pop and pain/weakness in ankle. Went to [facility] 11/18 with XR, percocet RX and ortho referral. She wore CAM boot until 12/16 when her RT knee flared up. She is limping in regular shoe. Pain over medial knee that is sharp, worse with walking and standing and laying down. Not sleeping well. Pain over achilles, she admits to numbness in ankle that started after she felt the pop. She has been resting and is careful how she walks. Tried percocet without relief. Taking marijuana gummies and elevating. Admits swelling has improving. Prior history of RT ankle pain (07/02/23) Went to [facility] ER 07/10/23, followed up with Dr Cummins 07/12/23, voltaren gel and heel lifts recommended. Prior treatment: [facility] ER with XR 07/10/23 the XR and venous doppler, CAM boot, gummies, [facility] ER 11/19/23 with XR Admits N/T in B/L feet due to neuropathy MEDICATION: Current Outpatient Medications on File Prior to Visit Medication Sig Dispense Refill atorvastatin (Lipitor) 80 MG tablet Take 1 tablet (80 mg) by mouth at bedtime 90 tablet 1 ferrous sulfate 325 (65 Fe) MG tablet Take 1 tablet (325 mg) by mouth in the morning. Take with meals. 90 tablet 1 fluticasone (Flonase) 50 MCG/ACT nasal spray Administer 2 sprays into each nostril Daily Shake gently. Before first use, prime pump. After use, clean tip and replace cap. 48 g 1 insulin aspart protamine-insulin aspart (NovoLOG MIX 70/30 FLEXPEN) (70-30) 100 UNIT/ML injection Inject 75 Units under the skin in the morning and 75 Units in the evening. Inject with meals. 135 mL 1 pregabalin (Lyrica) 100 MG capsule Take 1 capsule (100 mg) by mouth every 8 (eight) hours 90 capsule 2 ASPIRIN 81 MG chewable tablet Aspir-81 B-D UF III MINI PEN NEEDLES 31G X 5 MM mis USE TWICE DAILY cetirizine (ZyrTEC) 10 MG tablet TAKE 1 TABLET (10 MG) BY MOUTH DAILY. 90 tablet 1 cilostazol (Pletal) 100 MG tablet TAKE 1 TABLET BY MOUTH TWICE A DAY DIRECTED Oral for 90 (Patient not taking: Reported on 12/14/2023) clopidogrel (Plavix) 75 MG tablet Take 1 tablet (75 mg) by mouth Daily 90 tablet 1 Continuous Blood Gluc Sensor (FreeStyle Joelle 2 Sensor) [facility] [place] USE TO TEST BLOOD SUGAR 4 TIMES DAILY cyanocobalamin (Vitamin B-12) 50 MCG tablet Take 50 mcg by mouth in the morning. Pt takes 1000 mg daily. dapagliflozin (Farxiga) 10 MG Take 1 tablet (10 mg) by mouth in the morning. 90 tablet 1 DULoxetine (Cymbalta) [address] capsule Take 1 capsule (30 mg) by mouth Daily Total dose is 90mg daily 90 capsule 1 DULoxetine (Cymbalta) [address] capsule Take 1 capsule (60 mg) by mouth Daily 90 capsule 1 folic acid (Folvite) 1 MG tablet Take 1,000 mcg by mouth Daily furosemide (Lasix) 40 MG tablet Take 1 tablet (40 mg) by mouth Daily 90 tablet 1 Insulin Aspart Prot & Aspart (NOVOLOG 70/30 FLEXPEN RELION SC) Inject 75 Units under the skin in the morning and 75 Units before bedtime. methocarbamol (Robaxin) 500 MG tablet Take 1 tablet (500 mg) by mouth every 12 (twelve) hours if needed for muscle spasms 60 tablet 3 metoprolol succinate XL (Toprol-XL) 25 MG 24 hr tablet Take 25 mg by mouth in the morning. metoprolol succinate XL (Toprol-XL) 50 MG 24 hr tablet 1 (one) time each day at the same time. Multiple Vitamins-Minerals (Centrum Silver 50+Women) tablet Orally pantoprazole (ProtoNix) 40 MG EC tablet Take 1 tablet (40 mg) by mouth in the morning. Take before meals. 90 tablet 1 rivaroxaban (Xarelto) 10 MG tablet Take 1 tablet (10 mg) by mouth Daily 90 tablet 1 [DISCONTINUED] Diclofenac 18 MG capsule Diclofenac (Patient not taking: Reported on 12/14/2023) No current facility-administered medications on file prior to visit. MEDICAL HISTORY: Past Medical History: Diagnosis Date Abnormal PFT Abnormal stress test Allergies Anemia Anxiety and depression (CMS/HCC) Arthritis CAD in [place] artery (CMS/HCC) Cancer of kidney (CMS/HCC) Chronic back pain [...] diabetes mellitus with insulin therapy (CMS/HCC) 03/24/2023 ALLERGIES: No Known Allergies VITALS: Visit Vitals Smoking Status Every Day PHYSICAL EXAM: Ortho Exam RIGHT ANKLE Full WB, without boot due to knee pain Palpable defect Achilles Diffuse swelling Active DF and PF Decreased sensation anterior foot and leg RIGHT KNEE Tenderness Medial joint line tenderness Limited ROM IMAGING: x-rays of the right ankle dated November 11, 2023. From the [facility]. There are no fractures detected. There is calcification near the insertion of the Achilles tendon. There is also a heel spur. The ankle mortise is symmetric and there are no definitive fractures. ASSESSMENT: ICD-10-CM 1. Rupture of right Achilles tendon, subsequent encounter S86.011D 2. Right knee pain, unspecified chronicity M25.561 3. Arthritis of right knee M17.11 L Inj/Asp: R knee . L Inj/Asp: R knee on 12/20/2023 11:50 AM Indications: pain Details: 21 G needle, anterolateral approach Medications: 40 mg methylPREDNISolone acetate 40 MG/ML Outcome: tolerated well, no immediate complications Procedure, treatment alternatives, risks and benefits explained, specific risks discussed. Consent was given by the patient. PLAN: RIGHT KNEE I discussed with the patient the option of an injection. I advised the patient of risks associated with an injection including a reaction to medication, infection, failure to improve and possible worsening. The patient demonstrated understanding. Patient requesting injection. Skin Cleansed with alcohol swab. Utilizing aseptic technique patient given 40mg Depomedrol was injected. Patient tolerated this well. Neurovasc intact s/p injection. Post injection care instructions discussed. RIGHT ANKLE I recommend continue with boot and explained that is could take up to [address] Cummins obtained history and examined the patient, I am acting as scribe for Dr. Cummins/ez Cummins D.O. documented in this encounter [facility] 12-14-2023 History of Present illness Narrative Images from the original note were not included. 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 Dizziness started a couple of months ago. The dizziness is described as the room spinning and sometime she is spinning. She denies falls. The patient admits to postural lightheadedness. She states that when she gets up in the morning she will have to sit for a minute before she gets up. She states that even if she sits for a minute she will still feel off balance. When she is laying down, if she lays on the right side of her head everything will spin. She cause not get nauseated. She will spin for a few minutes and then it goes away. If she is laying down if she changes position it will go away. NO blurred or double vision. She has some floaters in her eyes. NO numbness tingling or weakness focal from this. She has neuropathy from her diabetes. She will drink diet Mt Dew and coffee all day not much water. She is was walking for execise prior to tearing her achilles. T She had a stent in her RLE for vascular dz and had to have it ballooned opened. 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 ([facility]/HCC) Diabetic neuropathy, painful ([facility]/HCC) Factor V Leiden ([facility]/HCC) Factor 5 Leiden deficiency Family history of cancer High cholesterol ([facility]/HCC) History of DVT (deep vein thrombosis) history of DVT no PE History of kidney cancer History of pancreatitis History of pneumonia History of varicose veins Intermittent claudication ([facility]/HCC) Kidney problem spot on kidney Mucopurulent chronic bronchitis (CMS/HCC) Neuropathy ELENA (obstructive sleep apnea) Osteoporosis (CMS/HCC) Pneumonia Sinusitis Tobacco user Type 2 diabetes mellitus with insulin therapy ([facility]) 03/24/2023 Past Surgical History: Procedure Laterality Date APPENDECTOMY BACK SURGERY 2016 x3 BACK SURGERY 2018 laser BACK SURGERY 2019 CHOLECYSTECTOMY 1985 COLONOSCOPY 06/02/2022 /egd HEART CATH HYSTERECTOMY 1992 KNEE SURGERY Left 08/17/2017 medial meniscectomy and chondrom[address] cummins LEG SURGERY Right 04/2020 stent MR ANGIOGRAM HEAD WO IV CONTRAST 07/29/2020 MR ANGIOGRAM HEAD WO IV CONTRAST Family History Problem Relation Name Age of Onset Hypertension Mother Diabetes Mother Diabetes Father Hypertension Father Stroke Father Diabetes Sibling Cancer Sibling Heart disease Maternal Grandmother Diabetes Maternal Grandmother Stroke Maternal Grandfather Heart disease Paternal Grandmother Diabetes Paternal Grandmother Heart disease Paternal Grandfather Other (Family HX of lung cancer) Other Social History Tobacco Use Smoking status: Every Day Current packs/day: 1.00 Average packs/day: 1 pack/day for 30.0 years (30.0 ttl pk-yrs) Types: Cigarettes Smokeless tobacco: Never Tobacco comments: 11-20 cigarettes/day Substance Use Topics Alcohol use: Not Currently Comment: Caffeine: coffee,soda/pop: 10cups daily Allergies: Patient has no known allergies. General: No fever or chills HEENT: No nasal congestion or runny nose Pulmonary: No shortness of breath or cough Cardiovascular: No chest pain or palpitations GI: No nausea or vomiting : No dysuria or hematuria Musculoskeletal: No new aches or pains or muscle weakness Infectious: no recurrent fevers or infections Dermatologic: No rashes or skin lesions Neurologic: No new headaches or dizziness Vitals: 12/14/23 1450 BP: 104/78 Pulse: 74 SpO2: 94% Body mass index is 46.86 kg/m . weight: 273 lb Neurologic exam: General: Normal body habitus, cooperative, pleasant Mental status: Awake, alert to person, place and time. Recent and remote memory are intact. Attention and concentration are normal. Fund of knowledge is appropriate for level of education. HEENT: NC/AT Cranial nerves: CN II: Visual ashley full to confrontation. No loss of vision CN III, IV, : pupils equal round and reactive to light. Extraocular movements intact. No ptosis present. CN V: Facial sensation is normal. CN VII: Full and symmetric facial movement. CN VIII: Hearing is normal CN IX and X: Palate elevates symmetrically. CN XI: Shoulder shrug is normal bilaterally. CN XII: Tongue is midline without atrophy or fasciculation. Speech: Clear and fluent no aphasia or dysarthria Pronator drift: Negative bilateral upper extremity Coordination: Intact, no signs of dysmetria Good finger to nose and rapid alternating movements Sensory: Sensation is intact to light, temperature touch throughout four extremities. Pinprick intact in all four extremities decreased in a stocking Vibratory decreased in a stocking distribution. Motor: LUE 5/5 RUE 5/5 LLE 5/5 RLE proximally 5/5 in a boot Tone: Physiologic, no tremor, bradykinesia or rigidity DTR: Bilateral Biceps 2/4 Bilateral BR 2/4 Bilateral Patellar 2-/4 No spasticity Gait: Normal to casual gait except for RLE in boot Romberg's x Review and summary of old records: Assessment/Plan Diagnoses and all orders for this visit: Benign paroxysmal positional vertigo, unspecified laterality - Ambulatory referral to Physical Therapy; Future - Vestibular test (VNG); Future ELENA (obstructive sleep apnea) - Home sleep test; Future Class 3 severe obesity with serious comorbidity and body mass index (BMI) of 45.0 to 49.9 in adult, unspecified obesity type (CMS/HCC) Diabetic peripheral neuropathy associated with type 2 diabetes mellitus (CMS/HCC) Hypersomnia Dizziness and giddiness - Ambulatory referral to Neurology 58 year old With dizziness that is most consistent with a benign positional paroxysmal vertigo. She also has a lightheaded sensation that I suspect is orthostatic hypotension. She does have a low systolic blood pressure in the office today and is on antihypertensive medicines. She also had what looks like a peripheral neuropathy which can cause some balance issues and dysautonomia. She also has a history of obstructive sleep apnea and obesity. She had her machine taken away and needs retested to get her machine back and get treated. She has some daytime hypersomnia. Plan VNG Vestibular rehab Monitor the blood pressure Stopped drinking so much pop and coffee and add in water and its place Regular exercises We will do an EMG once her right leg is healed from her Achilles tear to assess severity of peripheral neuropathy Get up slowly If her blood pressure stays low may need to consider coming off of blood pressure medicine Home sleep study The patient was counseled on the need for aggressive diet, exercise, and weight loss. The patient was counseled on proper sleep hygiene and adequate hours of sleep. The patient was counseled on the risks of stroke, VT, and sudden with ELENA, along with the need for compliance with the CPAP/BiPAP treatment. The diagnosis was all discussed with the patient. All questions were answered and they agreed with the treatment plan. Patient will call if there are any new issues or questions. Pt has been fully educated on their diagnosis, treatment options, follow up plan, and return instructions Return to clinic: 2 months documented in this encounter [facility] 11-22-2023 History of Present illness Narrative Images from the original note were not included. HISTORY OF PRESENT ILLNESS: Elmer Ellis is an 58 y.o. @ female. Chief complaint RT ankle/RT leg pain Established pt: RT ankle. Last visit 07/12/23 RT ankle injury x 4 days ago (doi 11/18/23) Pt was stepping up a step and felt pop and pain/weakness in ankle. Went to [facility] 11/18 with XR, percocet RX and ortho referral. Pain over achilles, she admits to numbness in ankle that started after she felt the pop. She is FWB with boot. Admits throbbing at rest and with WB. Tried percocet without relief. Taking marijuana gummies and elevating. Wears the boot at all times. Admits swelling. Prior history of RT ankle pain (07/02/23) Went to [facility] ER 07/10/23, followed up with Dr Cummins 07/12/23, voltaren gel and heel lifts recommended Prior treatment: [facility] ER with XR 07/10/23 the XR and venous doppler, CAM boot, gummies, [facility] ER 11/19/23 with XR Admits N/T in B/L feet due to neuropathy I reviewed notes from the [facility] Emergency Department dated November 19, 2023. The patient presented with an injury to the right lower extremity. And the history and exam at the time were consistent with a Achilles tendon injury. X-rays were done at the time which did not reveal a fracture of the ankle MEDICATION: Current Outpatient Medications on File Prior to Visit Medication Sig Dispense Refill atorvastatin (Lipitor) 80 MG tablet Take 1 tablet (80 mg) by mouth at bedtime 90 tablet 1 insulin aspart protamine-insulin aspart (NovoLOG MIX 70/30 FLEXPEN) (70-30) 100 UNIT/ML injection Inject 75 Units under the skin in the morning and 75 Units in the evening. Inject with meals. 135 mL 1 pregabalin (Lyrica) 100 MG capsule Take 1 capsule (100 mg) by mouth every 8 (eight) hours 90 capsule 2 ASPIRIN 81 MG chewable tablet Aspir-81 B-D UF III MINI PEN NEEDLES 31G X 5 MM misc USE TWICE DAILY cetirizine (ZyrTEC) 10 MG tablet TAKE 1 TABLET (10 MG) BY MOUTH DAILY. 90 tablet 1 cilostazol (Pletal) 100 MG tablet TAKE 1 TABLET BY MOUTH TWICE A DAY DIRECTED Oral for 90 clopidogrel (Plavix) 75 MG tablet Take 1 tablet (75 mg) by mouth Daily 90 tablet 1 Continuous Blood Gluc Sensor (FreeStyle Joelle 2 Sensor) [facility] [place] USE TO TEST BLOOD SUGAR 4 TIMES DAILY cyanocobalamin (Vitamin B-12) 50 MCG tablet Take 50 mcg by mouth in the morning. Pt takes 1000 mg daily. dapagliflozin (Farxiga) 10 MG Take 1 tablet (10 mg) by mouth in the morning. 90 tablet 1 Diclofenac 18 MG capsule Diclofenac DULoxetine (Cymbalta) [address] capsule Take 1 capsule (30 mg) by mouth Daily Total dose is 90mg daily 90 capsule 1 DULoxetine (Cymbalta) [address] capsule Take 1 capsule (60 mg) by mouth Daily 90 capsule 1 ferrous sulfate 325 (65 Fe) MG tablet Take 325 mg by mouth in the morning. Take with meals. fluticasone (Flonase) 50 MCG/ACT nasal spray Administer 2 sprays into each nostril Daily Shake gently. Before first use, prime pump. After use, clean tip and replace cap. 16 g 5 folic acid (Folvite) 1 MG tablet Take 1,000 mcg by mouth Daily furosemide (Lasix) 40 MG tablet Take 1 tablet (40 mg) by mouth Daily 90 tablet 1 Insulin Aspart Prot & Aspart (NOVOLOG 70/30 FLEXPEN RELION SC) Inject 75 Units under the skin in the morning and 75 Units before bedtime. methocarbamol (Robaxin) 500 MG tablet Take 1 tablet (500 mg) by mouth every 12 (twelve) hours if needed for muscle spasms 60 tablet 3 metoprolol succinate XL (Toprol-XL) 25 MG 24 hr tablet Take 25 mg by mouth in the morning. metoprolol succinate XL (Toprol-XL) 50 MG 24 hr tablet 1 (one) time each day at the same time. Multiple Vitamins-Minerals (Centrum Silver 50+Women) tablet Orally pantoprazole (ProtoNix) 40 MG EC tablet Take 1 tablet (40 mg) by mouth in the morning. Take before meals. 90 tablet 1 rivaroxaban (Xarelto) 10 MG tablet Take 1 tablet (10 mg) by mouth Daily 90 tablet 1 [DISCONTINUED] furosemide (Lasix) 40 MG tablet Take 1 tablet (40 mg) by mouth Daily 90 tablet 1 [DISCONTINUED] pantoprazole (ProtoNix) 40 MG EC tablet Take 1 tablet (40 mg) by mouth 1 (one) time each day at the same time 90 tablet 1 No current facility-administered medications on file prior to visit. MEDICAL HISTORY: Past Medical History: Diagnosis Date Abnormal PFT Abnormal stress test Allergies Anemia Anxiety and depression ([facility]/HCC) Arthritis CAD in [place] artery ([facility]) Cancer of kidney ([facility]) Chronic back pain Chronic bronchitis ([facility]) Chronic cough Cigarette nicotine dependence Cough Diabetes mellitus type 2 in obese ([facility]/HCC) 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 ([facility]) Diabetic neuropathy, painful ([facility]) Factor V Leiden ([facility]) Factor 5 Leiden deficiency Family history of cancer High cholesterol ([facility]) History of DVT (deep vein thrombosis) history of DVT no PE History of kidney cancer History of pancreatitis History of pneumonia History of varicose veins Intermittent claudication ([facility]) Kidney problem spot on kidney Mucopurulent chronic bronchitis ([facility]/HCC) Neuropathy ELENA (obstructive sleep apnea) Osteoporosis ([facility]) Pneumonia Sinusitis Tobacco user Type 2 diabetes mellitus with insulin therapy ([facility]) 03/24/2023 ALLERGIES: No Known Allergies VITALS: Visit Vitals Smoking Status Every Day PHYSICAL EXAM: Ortho Exam RIGHT ANKLE Wearing CAM boot, full WB Palpable defect Achilles Diffuse swelling Active DF and PF Marked tenderness around Achilles proximal to insertion Decreased sensation anterior foot and leg IMAGING: I reviewed x-rays of the right ankle dated November 11, 2023. From the [facility]. There are no fractures detected. There is calcification near the insertion of the Achilles tendon. There is also a heel spur. The ankle mortise is symmetric and there are no definitive fractures. ASSESSMENT: ICD-10-CM 1. Acute right ankle pain M25.571 2. Achilles tendon rupture, right, initial encounter S86.011A PLAN: I explained the diagnosis and reviewed treatment options including non operative and operative. I discussed risks/benefits of each and chances for success/ failure. Discussion included but was not limited to the risk of infection, blood clot, failure to improve and need for additional surgery. The patient is at risk for infection if we would do surgery due to her A1C, BMI and smoker. I thus recommend treatment with immobilization for at least 3 months with boot. I answered all of the patient's questions. Follow up in one month, any issues/concerns follow up sooner. Dr. Cummins obtained history and examined the patient, I am acting as scribe for Dr. Cummins/ez Cummins D.O. documented in this encounter [facility] 10-20-2023 History of Present illness Narrative Associated Problem(s): Bilateral lower extremity edema stable Associated Problem(s): CAD in [place] artery ([facility]) Continue statin, anti coagulation Cont with cardiology Associated Problem(s): Type 2 diabetes mellitus with insulin therapy (CMS/[facility]) Discussion with pt about her current insulin therapy Consider change to basal and bolus insulin for possible better coverage Check blood sugars daily, notify if <70 [...] diet low in carbohydrates, and simple sugars. Pt has been having a lot of dizziness for a while now, starting about a few months ago. She states that it wasn't bad at first but now every morning she has to sit up for a while on her bed collect her self so she doesn't fall over. Pt is still having a lot depression. Pt does not take xarelto til sat Images from the original note were not included. Elmer Ellis is a 57 y.o. female presents with chief complaint of No chief complaint on file. HPI: Diabetes She presents for her follow-up diabetic visit. She has type 2 diabetes mellitus. Her disease course has been improving. Pertinent negatives for hypoglycemia include no dizziness, headaches, nervousness/anxiousness, seizures or tremors. (Occ blood sugar in 60's no symptoms) Associated symptoms include foot paresthesias. Pertinent negatives for diabetes include no chest pain, no foot ulcerations, no polydipsia, no polyphagia, no polyuria and no weight loss. There are no hypoglycemic complications. Symptoms are stable. Diabetic complications include a CVA, heart disease, peripheral neuropathy and PVD. Risk factors for coronary artery disease include post-menopausal, diabetes mellitus, dyslipidemia, hypertension, obesity and tobacco exposure. Current diabetic treatment includes oral agent (dual therapy) and insulin injections. She is compliant with treatment all of the time. Her weight is stable. Her overall blood glucose range is 180-200 mg/dl. An ROXANNE inhibitor/angiotensin II receptor zhao is being taken. She does not see a career placement services counselor.Eye exam is current. Hypertension Pertinent negatives include no chest pain, headaches, palpitations or shortness of breath. Hypertensive end-organ damage includes CVA and PVD. SUBJECTIVE: MEDICATIONS: Current Outpatient Medications Medication Instructions ASPIRIN 81 MG chewable tablet Aspir-81 atorvastatin (LIPITOR) 80 mg, Oral, Nightly B-D UF III MINI PEN NEEDLES 31G X 5 MM misc USE TWICE DAILY cetirizine (ZYRTEC) 10 mg, Oral, Daily cilostazol (Pletal) 100 MG tablet TAKE 1 TABLET BY MOUTH TWICE A DAY DIRECTED Oral for 90 clopidogrel (PLAVIX) 75 mg, Oral, Daily Continuous Blood Gluc Sensor (FreeStyle Joelle 2 Sensor) [facility] [place] USE TO TEST BLOOD SUGAR 4 TIMES DAILY cyanocobalamin (VITAMIN B-12) 50 mcg, Oral, Daily RT, Pt takes 1000 mg daily dapagliflozin (FARXIGA) 10 mg, Oral, Every morning Diclofenac 18 MG capsule Diclofenac DULoxetine (CYMBALTA) 30 mg, Oral, Daily, Total dose is 90mg daily DULoxetine (CYMBALTA) 60 mg, Oral, Daily ferrous sulfate 325 mg, Oral, Daily with breakfast fluticasone (Flonase) 50 MCG/ACT nasal spray 2 sprays, Each Nostril, Daily, Shake gently. Before first use, prime pump. After use, clean tip and replace cap. folic acid (FOLVITE) 1,000 mcg, Oral, Daily furosemide (LASIX) 40 mg, Oral, Daily Insulin Aspart Prot & Aspart (NOVOLOG 70/30 FLEXPEN RELION SC) 75 Units, Subcutaneous, 2 times daily insulin aspart protamine-insulin aspart (NovoLOG MIX 70/30 FLEXPEN) (70-30) 100 UNIT/ML injection 75 Units, Subcutaneous, 2 times daily with meals methocarbamol (ROBAXIN) 500 mg, Oral, Every 12 hours PRN metoprolol succinate XL (Toprol-XL) 50 MG 24 hr tablet Every 24 hours metoprolol succinate XL (TOPROL-XL) 25 mg, Oral, Every morning Multiple Vitamins-Minerals (Centrum Silver 50+Women) tablet Orally pantoprazole (PROTONIX) 40 mg, Oral, Every 24 hours pregabalin (LYRICA) 100 mg, Oral, Every 8 hours rivaroxaban (XARELTO) 10 mg, Oral, Daily ALLERGIES: No Known Allergies REVIEW OF SYMPTOMS: Review of Systems Constitutional: Negative for appetite change, chills, fever and weight loss. HENT: Negative for congestion, ear pain and sore throat. Eyes: Negative for pain, discharge, redness and visual disturbance. Respiratory: Negative for cough, shortness of breath and wheezing. Cardiovascular: Negative for chest pain, palpitations and leg swelling. Gastrointestinal: Negative for abdominal pain, blood in stool, constipation, diarrhea, nausea and vomiting. Genitourinary: Negative for difficulty urinating, dysuria and frequency. Musculoskeletal: Positive for back pain. Negative for arthralgias, joint swelling and myalgias. Skin: Negative for rash and wound. Neurological: Positive for numbness. Negative for dizziness, tremors, seizures, syncope and headaches. Psychiatric/Behavioral: Negative for behavioral problems, self-injury and suicidal ideas. The patient is not nervous/anxious. Depression Hematological: Does not bruise/bleed easily. Endocrine: Negative for polydipsia, polyphagia and polyuria. Allergic/Immunologic: Negative for environmental allergies and food allergies. PAST MEDICAL HISTORY Past Medical History: Diagnosis Date Abnormal PFT Abnormal stress test Allergies Anemia Anxiety and depression ([facility]) Arthritis CAD in [place] artery ([facility]) Cancer of kidney ([facility]) Chronic back pain Chronic bronchitis ([facility]) Chronic cough Cigarette nicotine dependence Cough Diabetes mellitus type 2 in obese ([facility]) 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 ([facility]) Diabetic neuropathy, painful ([facility]) Factor V Leiden [place] Factor 5 Leiden deficiency Family history of cancer High cholesterol ([facility]) History of DVT (deep vein thrombosis) history of DVT no PE History of kidney cancer History of pancreatitis History of pneumonia History of varicose veins Intermittent claudication ([facility]) Kidney problem spot on kidney Mucopurulent chronic bronchitis ([facility]) Neuropathy ELENA (obstructive sleep apnea) Osteoporosis ([facility]) Pneumonia Sinusitis Tobacco user Type 2 diabetes mellitus with insulin therapy ([facility]) 03/24/2023 Past Surgical History: Procedure [...] and maternal grandfather. OBJECTIVE: Visit Vitals BP 118/78 (BP Location: Left arm, Patient Position: Sitting, BP Cuff Size: Adult long) Pulse 74 Temp 98 F (Temporal) Resp 19 Ht 5' 4 Wt 277 lb 12.8 oz SpO2 97% BMI 47.68 kg/m Smoking Status Every Day BSA 2.39 m Physical Exam Vitals and nursing note reviewed. [...] is normal. Breath sounds: Normal breath sounds. No wheezing or rales. Abdominal: General: Bowel sounds are normal. There is no distension. Palpations: Abdomen is soft. There is no mass. Tenderness: There is no abdominal tenderness. Musculoskeletal: General: Normal range of motion. Cervical back: Normal range of motion and neck supple. Right lower leg: Edema present. Left lower leg: Edema present. Comments: Trace-1+ bilat LE Skin: General: Skin is warm and dry. [...] file. Problem List Items Addressed This Visit Class 3 severe obesity with serious comorbidity and body mass index (BMI) of 45.0 to 49.9 in adult ([facility]/HCC) CAD in [place] artery ([facility]/HCC) Continue statin, anti coagulation Cont with cardiology Peripheral vascular disease, unspecified ([facility]) Recent stent placement Diabetic neuropathy, painful ([facility]) - Primary Type 2 diabetes mellitus with diabetic neuropathy, with long-term current use of insulin ([facility]) Type 2 diabetes mellitus with insulin therapy ([facility]) Discussion with pt about her current insulin therapy Consider change to basal and bolus insulin for possible better coverage Check blood sugars daily, notify if <70 [...] diet low in carbohydrates, and simple sugars. Bilateral lower extremity edema stable Atherosclerosis of aorta (CMS/HCC) Continue aggressive CV risk factor mgmt Associated Problem(s): Peripheral vascular disease, unspecified (CMS/HCC) Recent stent placement Associated Problem(s): Atherosclerosis of aorta (CMS/HCC) Continue aggressive CV risk factor mgmt documented in this encounter [facility] 10-19-2023 Note Patient: Elmer guy Procedure Information Date/Time: 10/19/23 1100 Procedure: Lower extremity angiogram - PC APPROVED Location: [facility] [address] / [facility] (Cath) Providers: Malik Benavides MD [...] Plan discussed with attending. Additional Equipment Requests [facility] 09-21-2023 Note [place] [facility] Subjective Elmer Ellis is a 57 y.o. year old female patient being seen for follow up stress test, echo, and [place]'s. Denies chest pain and SOB, but c/o a lot of lightheadedness/dizziness lately. Denies syncope. Continues to have claudication. Patient Active Problem List Diagnosis Coronary atherosclerosis Dyspnea on exertion Factor V Leiden ([facility]/HCC) Hypertriglyceridemia History of deep vein thrombosis Intermittent [...] of both eyes (CMS/HCC) Diabetic neuropathy, painful ([facility]/HCC) Encounter for annual wellness visit (AWV) in [...] V [place]. At her prior visit with CARVING MACHINE OPERATOR Niyah Pop on 04/27/2019 she was complaining [...] Every Day BSA (more content not included)... [facility] 08-18-2023 Note [facility] Subjective Elmer Ellis is a [...] atherosclerosis Dyspnea on exertion Factor V Leiden ([facility]/HCC) Hypertriglyceridemia History of deep vein thrombosis Intermittent [...] of both eyes (CMS/HCC) Diabetic neuropathy, painful ([facility]/HCC) Encounter for annual wellness visit (AWV) in [...] are equal, r (more content not included)... [facility] 06-15-2023 Note HNO ID: [id number] Author: LEX PICKENS MD Service: ? Author Type: Physician Type: Progress Notes Filed: 06/15/2023 12:22 Note Text: VIRTUAL VISIT PROGRESS NOTE This is a virtual visit using AppGratisom Video Visit. It required patient-provider interaction for the medical decision making as documented below. I have communicated my name and active licensure. The patient's identity and physical location were verified at the time of this visit. Either the patient or their legal sales representative womens health has been informed of the risks and [...] mg by mouth twice daily. MV with Cbp-Ufpadwcl-Tcezzi (CENTRUM SILVER) 0.4 mg-300 mcg- 250 mcg tab Take by mouth. (Patient not taking: Reported on 03/16/2022) insulin 75/25 lispro protamine/lispro units/mL (HUMALOG MIX 75-25,U-100,INSULN) 100 units/mL susp as directed. HYDROcodone-acetaminophen (NORCO) 5-325 mg per tablet hydrocodone 5 mg-acetaminophen 325 mg tablet TAKE 1 TO 2 TABLETS BY MOUTH EVERY DAY AT BEDTIME NEEDED gwmgtxpw-cug-zqjl-FA-lutein (CENTRUM SILVER WOMEN) 8 mg iron-400 mcg-300 [...] hr (more content not included)... [facility] 06-15-2023 History of Present illness Narrative VIRTUAL VISIT PROGRESS NOTE This is a virtual visit using AppGratisom Video Visit. It required patient-provider interaction for the medical decision making as documented below. I have communicated my name and active licensure. The patient's identity and physical location were verified at the time of this visit. Either the patient or their legal sales representative womens health has been informed of the risks and [...] mg by mouth twice daily. MV with Uyu-Dahorpts-Bzhwjw (CENTRUM SILVER) 0.4 mg-300 mcg- 250 mcg tab Take by mouth. (Patient not taking: Reported on 03/16/2022) insulin 75/25 lispro protamine/lispro units/mL (HUMALOG MIX 75-25,U-100,INSULN) 100 units/mL susp as directed. HYDROcodone-acetaminophen (NORCO) 5-325 mg per tablet hydrocodone 5 mg-acetaminophen 325 mg tablet TAKE 1 TO 2 TABLETS BY MOUTH EVERY DAY AT BEDTIME NEEDED pladdzvq-omu-lfrw-FA-lutein (CENTRUM SILVER WOMEN) 8 mg iron-400 mcg-300 [...] which included preparing to see the patient, hddj-zd-yyrf patient care, and counseling and educating the patient/family/caregiver Lex Pickens MD documented in this encounter [facility] 05-17-2023 Note HNO ID: [id number] Author: BRIGETTE FORMAN RT(R) Service: Radiology Author [...] PATIENT PRESENTS WITH AN IMPLANTABLE OR ATTACHED TOBACCO BUYER: No RADIOLOGY DEPARTMENT: CT; Exam(s) Completed: Kidney PERIPHERAL IV DATA: Site assessment: Clean,Dry and Intact, Site disposition Discontinued 20g right forearm SIGNED BY: RT José Miguel(R) May 17, 2023 2:00 PM [facility] 05-17-2023 Note HNO ID: [id number] Author: JOI GREENE RN Service: ? Author [...] IV SITE APPEARANCE: Clean,Dry and Intact SIGNATURE: Jio Greene RN PATIENT NAME: Elmer Ellis DATE: May 17, 2023 TIME: 2:02 PM [facility] 05-17-2023 History of Present illness [...] PATIENT PRESENTS WITH AN IMPLANTABLE OR ATTACHED TOBACCO BUYER: No RADIOLOGY DEPARTMENT: CT; Exam(s) Completed: Kidney [...] TIME: 2:02 PM documented in this encounter [facility] 04-28-2023 Miscellaneous Notes Please sign pended Cre for upcoming CT. Pt needs updated lab before CT can be done Thank You! Josie Leong, RN documented in this encounter [facility] 03-24-2023 History of Present illness Narrative Associated Problem(s): Encounter for annual wellness visit (AWV) in Medicare patient Reviewed Ht/Wt/BMI Recommend eye exam yearly Recommend dental exams twice a year Balance work/leisure activities Exercises is recommended most days of the week (appropriate as chronic conditions allow) Follow up yearly and prn Associated Problem(s): Type 2 diabetes mellitus with insulin therapy ([facility]) Check blood sugars daily, notify [...] in March Associated Problem(s): Cancer of kidney ([facility]/HCC) Continue with specialty for monitoring Associated Problem(s): CAD in [place] artery ([facility]) No acute angina symptoms Cont [...] being taken. She does not see a career placement services counselor.Eye exam is current. Hypertension This is a [...] Blood Gluc Sensor (FreeStyle Joelle 2 Sensor) [facility] [place] USE TO TEST [...] stress test Allergies Anemia Anxiety and depression (CMS/HCC) Arthritis CAD in [place] artery (CMS/HCC) Cancer of kidney (CMS/HCC) Chronic back pain [...] pneumonia History of varicose veins Intermittent claudication ([facility]/HCC) Kidney problem spot on kidney Mucopurulent chronic bronchitis (CMS/HCC) Neuropathy ELENA (obstructive sleep apnea) Osteoporosis (CMS/HCC) Pneumonia Sinusitis Tobacco user Type 2 diabetes mellitus with insulin therapy ([facility]/HCC) 03/24/2023 Past Surgical History: Procedure Laterality Date [...] List Items Addressed This Visit CAD in [place] artery ([facility]) No acute angina symptoms Cont current meds Goal: control BP, diabetes, lipids, and QUIT smoking Tobacco user Recommend quitting, pt declines Cancer of kidney ([facility]) Continue with specialty for monitoring Type 2 diabetes mellitus with diabetic neuropathy, with long-term current use of insulin ([facility]) Relevant Orders Hemoglobin A1c Type 2 diabetes mellitus with insulin therapy ([facility]) Check blood sugars daily, notify [...] Blood Gluc Sensor (FreeStyle Joelle 2 Sensor) [facility] [place] [place] USE TO TEST [...] Yes Vision Screening: Yes, 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 sees regular chemist helper/advertising sales agent Hearing Screening: Not done Cognitive Screening Self Assessment: No overt cognitive deficiency is apparent by direct observation Three Word Registration: Banana, Barnum, Chair Clock Drawing: Normal Clock - 2 Three Word Recall: All 3 words correct - 3 Pain Assessment Pain Score: 0 - No pain Advance Care Planning Do you have a living will?: No Do you have a medical power of managing attorney?: No Objective : BP 112/70 (BP [...] March 24, 2023 documented in this encounter [facility] 10-15-2022 Note Patient Outreach (UR OLMN) ELMER ELLIS ([id number]) 1965 F Date Time Provider Department 10/15/22 LEX PICKENS During your visit today, we recorded the following information about you: Allergies As of Date: 10/15/2022 (No Known Allergies) Date Reviewed: 10/15/2022 Reviewed by: Angie Mcclellan APRN.WEB PROJECT MANAGER - Fully Assessed Visit Diagnosis:Screening for genitourinary condition [Z13.89] Order(s):URINALYSIS, REFLEX MICROSCOPIC [SLD5392] Order #: [id number] Prescriptions as of 10/18/2022 - DULoxetine (CYMBALTA) [...] by mouth twice daily. - MV with Xoc-Xjpazpmc-Tbiubl (CENTRUM SILVER) 0.4 mg-300 mcg- 250 mcg tab Take by mouth. - insulin 75/25 lispro protamine/lispro units/mL (HUMALOG MIX 75-25,U-100,INSULN) 100 units/mL susp as directed. - HYDROcodone-acetaminophen (NORCO) 5-325 mg per tablet hydrocodone 5 mg-acetaminophen 325 mg tablet TAKE 1 TO 2 TABLETS BY MOUTH EVERY DAY AT BEDTIME NEEDED - nqypmbwg-hem-ykfm-FA-lutein (CENTRUM SILVER WOMEN) 8 mg iron-400 mcg-300 [...] (HCC) [D68.51] 04/19/2022 Coronary artery disease involving [place] heart *04/19/2022 Smoker [F17.200] 04/19/2022 Morbid obesity (HCC) [E66.01] 04/19/2022 Other specified disorders of kidney and ureter *04/19/2022 Encounter Status:Closed by [employer], PRODUSER on 10/18/22 [facility] 10-15-2022 Note HNO ID: [id number] Author: Angie Mcclellan APRN.WEB PROJECT MANAGER Service: ? Author Type: Nurse Practitioner Type: Progress Notes Filed: 10/16/2022 9:14 AM Note Text: VIRTUAL VISIT PROGRESS NOTE This is a virtual visit using BlueTalon video visit. It required patient-provider interaction for the medical decision making as documented below. I have communicated my name and active licensure. The patient's identity and physical location were verified at the time of this visit. Either the patient or their legal sales representative womens health has been informed of the risks and [...] mg by mouth twice daily. MV with Qsw-Ljwbkend-Uayqvo (CENTRUM SILVER) 0.4 mg-300 mcg- 250 mcg tab Take by mouth. (Patient not taking: Reported on 03/16/2022) insulin 75/25 lispro protamine/lispro units/mL (HUMALOG MIX 75-25,U-100,INSULN) 100 units/mL susp as directed. HYDROcodone-acetaminophen (NORCO) 5-325 mg per tablet hydrocodone 5 mg-acetaminophen 325 mg tablet TAKE 1 TO 2 TABLETS BY MOUTH EVERY DAY AT BEDTIME NEEDED azzshbjb-kic-rtrn-FA-lutein (CENTRUM SILVER WOMEN) 8 mg iron-400 mcg-300 mcg tab furosemide (LASIX) 40 mg tablet furosemide 40 mg tablet TAKE 1 AND 1/2 TABLETS BY MOUTH DAILY clopidogrel (PLAVIX) 75 mg tablet clopidogrel 75 mg tablet TAKE 1 TABLET BY MOUTH EVERY DAY metoprolol succinate ER (TOPROL XL) 25 mg 24 hr tablet met (more content not included)... [facility] 10-15-2022 History of Present illness Narrative VIRTUAL VISIT PROGRESS NOTE This is a virtual visit using BlueTalon video visit. It required patient-provider interaction for the medical decision making as documented below. I have communicated my name and active licensure. The patient's identity and physical location were verified at the time of this visit. Either the patient or their legal sales representative womens health has been informed of the risks and [...] 3.2cm x 3.0cm x 3.2cm on CT 12/12/22. It is located upper pole at the [...] mg by mouth twice daily. MV with Hdv-Zzfuyode-Cgnoeb (CENTRUM SILVER) 0.4 mg-300 mcg- 250 mcg tab Take by mouth. (Patient not taking: Reported on 03/16/2022) insulin 75/25 lispro protamine/lispro units/mL (HUMALOG MIX 75-25,U-100,INSULN) 100 units/mL susp as directed. HYDROcodone-acetaminophen (NORCO) 5-325 mg per tablet hydrocodone 5 mg-acetaminophen 325 mg tablet TAKE 1 TO 2 TABLETS BY MOUTH EVERY DAY AT BEDTIME NEEDED laiognta-hao-giuw-FA-lutein (CENTRUM SILVER WOMEN) 8 mg iron-400 mcg-300 [...] which included preparing to see the patient, xugz-lb-jjdz patient care, completing clinical documentation, counseling and educating the patient/family/caregiver, and ordering medications, tests, or procedures Angie Mcclellan APRN.CARLO documented in this encounter [facility] 10-07-2022 Note HNO ID: [id number] Author: Christel Hua RT([place]) Service: ? Author [...] October 07, 2022 10:33 AM [facility] 10-07-2022 History of Present illness [...] 2022 10:33 AM documented in this encounter [facility] 04-09-2022 History of Present illness Narrative [...] mg by mouth twice daily. MV with Gfu-Nfobthnx-Tahtwk (CENTRUM SILVER) 0.4 mg-300 mcg- 250 mcg tab Take by mouth. (Patient not taking: Reported on 03/16/2022) insulin 75/25 lispro protamine/lispro units/mL (HUMALOG MIX 75-25,U-100,INSULN) 100 units/mL susp as directed. HYDROcodone-acetaminophen (NORCO) 5-325 mg per tablet hydrocodone 5 mg-acetaminophen 325 mg tablet TAKE 1 TO 2 TABLETS BY MOUTH EVERY DAY AT BEDTIME NEEDED zhuswtjk-hey-sxds-FA-lutein (CENTRUM SILVER WOMEN) 8 mg iron-400 mcg-300 [...] prescribing physician. I25.10 Coronary artery disease involving [place] heart without angina pectoris, unspecified vessel or [...] Lex Pickens MD documented in this encounter [facility] 04-05-2022 History of Present illness Narrative Radiology [...] 2022 2:35 PM documented in this encounter [facility] 04-05-2022 History of Present illness Narrative Radiology [...] Intact, Site disposition Discontinued SIGNED BY: RT uLan(R) April 05, 2022 2:32 PM documented in this encounter [facility] 03-19-2022 Miscellaneous Notes Please sign pending Cre order for upcoming CT with contrast on 04/05/22. Thank you. Joi Austin RN documented in this encounter [facility] 03-16-2022 History of Present illness [...] prescribing physician. I25.10 Coronary artery disease involving [place] heart without angina pectoris, unspecified vessel or [...] All medical record entries made by the isabelleibe were at my direction and in my presence. I have reviewed the chart and discharge instructions (if applicable) and agree that the record reflects my personal performance and is accurate and complete. Lex Pickens MD documented in this encounter [facility] 03-05-2022 Hospital Discharge instructions Patient [...] provider gives to you. In general: Take zkfi-eoe-eoetxmn and prescription medicines only as told by [...] 09/04/2014 Document Revised: 03/16/2018 Document Reviewed: 03/16/2018 [employer] Patient Education 2020 [place]. Follow Up Care 07/27/2021 10:19:10 With:VENKAT SAWYER, Jluis Jacinto, URL Address: [address] [place] [id number] When: Unknown [facility] 11-09-2021 Note HNO ID: [id number] Author: Lilly Tony MD Service: ? Author [...] mg by mouth twice daily. MV with Lsp-Gsvnachs-Ljdaxc (CENTRUM SILVER) 0.4 mg-300 mcg- 250 mcg tab Take by mouth. insulin 75/25 lispro protamine/lispro units/mL (HUMALOG MIX 75-25,U-100,INSULN) 100 units/mL susp as directed. HYDROcodone-acetaminophen (NORCO) 5-325 mg per tablet hydrocodone 5 mg-acetaminophen 325 mg tablet TAKE 1 TO 2 TABLETS BY MOUTH EVERY DAY AT BEDTIME NEEDED eqysxicq-mio-qplm-FA-lutein (CENTRUM SILVER WOMEN) 8 mg iron-400 mcg-300 [...] activity without re (more content not included)... [facility] 10-19-2021 Note HNO ID: [id number] Author: Lilly Tony MD Service: ? Author [...] mg by mouth twice daily. MV with Lzy-Gaebaibt-Jzgpff (CENTRUM SILVER) 0.4 mg-300 mcg- 250 mcg tab Take by mouth. insulin 75/25 lispro protamine/lispro units/mL (HUMALOG MIX 75-25,U-100,INSULN) 100 units/mL susp as directed. HYDROcodone-acetaminophen (NORCO) 5-325 mg per tablet hydrocodone 5 mg-acetaminophen 325 mg tablet TAKE 1 TO 2 TABLETS BY MOUTH EVERY DAY AT BEDTIME NEEDED xataddud-ohb-xmav-FA-lutein (CENTRUM SILVER WOMEN) 8 mg iron-400 mcg-300 [...] lower extremity. S (more content not included)... [facility] 10-18-2021 History of Present illness [...] mg by mouth twice daily. MV with Nmz-Jlkyndnd-Awiwne (CENTRUM SILVER) 0.4 mg-300 mcg- 250 mcg tab Take by mouth. insulin 75/25 lispro protamine/lispro units/mL (HUMALOG MIX 75-25,U-100,INSULN) 100 units/mL susp as directed. HYDROcodone-acetaminophen (NORCO) 5-325 mg per tablet hydrocodone 5 mg-acetaminophen 325 mg tablet TAKE 1 TO 2 TABLETS BY MOUTH EVERY DAY AT BEDTIME NEEDED ufdrfail-rrz-lkvr-FA-lutein (CENTRUM SILVER WOMEN) 8 mg iron-400 mcg-300 [...] Lilly Tony MD documented in this encounter [facility] 10-13-2021 Miscellaneous Notes Received voicemail [...] bear any weight. Patient has taken 1 Jenkinjones about an hour ago and said it is not helping the pain at all. Advised I would send message to and call patient once direction is received. Patient understood and had no further questions. Filomena Madrigal October 13, 2021 11:23 AM documented in this encounter [facility] 09-22-2021 Note HNO ID: [id number] Author: Lilly Tony MD Service: ? Author [...] with nonweightbearing status. She will occasionally take Jenkinjones for pain relief which is effective. She is also supplemented with jdry-pkw-jqrhoaj pain medications. Her medical history significant for Beatties, coronary artery disease, diabetes and associated lower extremity neuropathy, DVT requiring Plavix and Xarelto for anticoagulation. 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 She also has kidney cancer that is [...] by mouth twice daily. - MV with Hev-Bhztaoxp-Ujpjwl (CENTRUM SILVER) 0.4 mg-300 mcg- 250 mcg tab Take by mouth. - insulin 75/25 lispro protamine/lispro units/mL (HUMALOG MIX 75-25,U-100,INSULN) 100 units/mL susp as directed. - HYDROcodone-acetaminophen (NORCO) 5-325 mg per tablet hydrocodone 5 mg-acetaminophen 325 mg tablet TAKE 1 TO 2 TABLETS BY MOUTH EVERY DAY AT BEDTIME NEEDED - xggafmjz-oyk-boso-FA-lutein (CENTRUM SILVER WOMEN) 8 mg iron-400 mcg-300 [...] lymphadenopathy Peripheral Pulses (more content not included)... [facility] 09-16-2021 Miscellaneous Notes Called and [...] which facility was the patient seen at: [facility] / 09.12.2021 Was an appointment scheduled (Y/N): n Person calling if other than patient: n Return call to if other than patient: n Best contact number: [phone] Thank you, Peggy Saxena September 15, 2021 4:27 PM [facility] [facility] 07-27-2021 Hospital Discharge instructions Patient [...] provider gives to you. In general: Take [id number] and prescription medicines only as told by [...] 09/04/2014 Document Revised: 03/16/2018 Document Reviewed: 03/16/2018 [employer] Patient Education 2020 [employer]. 07/27/2021 10:06:53 Calorie Counting for Weight Loss [...] 02/07/2006 Document Revised: 10/27/2018 Document Reviewed: 01/07/2017 [employer] Patient Education 2020 [employer]. Follow Up Care 06/24/2021 14:48:04 With:VENKAT SAWYER, Jluis Jacinto, URL Address: [facility] [address] , [place] [address]- [phone] When:01/26/2022 Comments:[address] scan [facility] Evaluation + Plan note Future Appointments Appointment Date:02/01/2022 11:15:00 AM Scheduled Provider:Jluis ROBLEDO MD Location:[facility] Appointment Type:URO Office Visit Diagnostic Tests PendingBUN 07/27/21Creatinine 07/27/21 [facility] Evaluation + Plan note [facility] Evaluation note Diagnosis Closed fracture of left ankle, initial encounter- Primary [facility] Diagnosis Renal mass- Primary Unspecified disorder of kidney and ureter [facility] Diagnosis Renal mass, right- Primary Unspecified disorder of kidney and ureter Factor V Leiden (HCC) Primary hypercoagulable state Coronary artery disease involving [place] heart without angina pectoris, unspecified vessel or lesion type Smoker Tobacco use disorder Morbid obesity (HCC) Morbid obesity 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 mass Unspecified disorder of kidney and ureter [facility] Diagnosis Other specified disorders of kidney and ureter- Primary [facility]* Diagnosis Renal mass, right- Primary Unspecified disorder of kidney and ureter Family history of renal cancer Family history of malignant neoplasm of kidney Morbid obesity (HCC) Morbid obesity Current every day smoker Tobacco use disorder Other specified disorders of kidney and ureter [facility] Diagnosis Screening for genitourinary condition Screening for other and unspecified genitourinary condition [facility]* Diagnosis Encounter for annual wellness visit (AWV) in Medicare patient- Primary Type 2 diabetes mellitus with diabetic neuropathy, with long-term current use of insulin (CMS/HCC) CAD in [place] artery (CMS/HCC) Tobacco user Tobacco use disorder Malignant neoplasm of kidney, unspecified laterality (CMS/HCC) Type 2 diabetes mellitus with insulin therapy (CMS/HCC) Routine general medical examination at health care facility Routine general medical examination at a health care facility documented in this encounter [facility]* Diagnosis CAD in [place] artery (CMS/HCC)- Primary documented in this encounter [facility]* Diagnosis Acute non-recurrent sinusitis of other sinus- Primary documented in this encounter [facility]* Diagnosis Onset Date Resolution Status Iron deficiency anemia acute [facility] Work Phone: Evaluation note* Diagnosis Renal mass- Primary Unspecified disorder of kidney and ureter [facility] Diagnosis Other specified disorders of kidney and ureter- Primary Renal mass Unspecified disorder of kidney and ureter Morbid obesity (HCC) Morbid obesity Type 2 diabetes mellitus with diabetic neuropathy, with long-term current use of insulin ([facility]) [facility] Diagnosis Renal mass, right Unspecified disorder of kidney and ureter 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 mass Unspecified disorder of kidney and ureter [facility] Diagnosis 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 mass Unspecified disorder of kidney and ureter [facility] Diagnosis 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 mass Unspecified disorder of kidney and ureter [facility] Diagnosis Renal mass, right Unspecified disorder of kidney and ureter [facility] Diagnosis Acute right ankle pain- Primary Achilles tendon rupture, right, initial encounter documented in this encounter [facility]* Diagnosis Anemia, unspecified documented in this encounter [facility]* Diagnosis Type 2 diabetes mellitus with diabetic neuropathy, unspecified ([facility]) Diabetic neuropathy, painful ([facility]) Type II or unspecified type diabetes mellitus with neurological manifestations, not stated as uncontrolled Anxiety and depression ([facility]) documented in this encounter [facility]* Diagnosis Dizziness and giddiness- Primary documented in this encounter [facility]* Diagnosis Encounter for annual wellness visit (AWV) in Medicare patient- Primary Type 2 diabetes mellitus with diabetic neuropathy, with long-term current use of insulin ([facility]) CAD in [place] artery ([facility]) Tobacco user Tobacco use disorder Malignant neoplasm of kidney, unspecified laterality ([facility]) Type 2 diabetes mellitus with insulin therapy ([facility]) Routine general medical examination at health care facility Routine general medical examination at a [place] healthcare care facility Type 2 diabetes mellitus with insulin therapy ([facility])- Primary CAD in [place] artery ([facility]) Type 2 diabetes mellitus with diabetic neuropathy, with long-term current use of insulin ([facility]) Type 2 diabetes mellitus with diabetic neuropathy, unspecified ([facility]/HCC) Diabetic neuropathy, painful (CMS/HCC) Type II or unspecified type diabetes mellitus with neurological manifestations, not stated as uncontrolled Anxiety and depression ([facility]) Anemia, unspecified type Gastroesophageal reflux disease without esophagitis Esophageal reflux Hypertriglyceridemia ([facility]) Pure hyperglyceridemia Bilateral lower extremity edema Chronic bronchitis, unspecified chronic bronchitis type ([facility]) Class 3 severe obesity with serious comorbidity and body mass index (BMI) of 45.0 to 49.9 in adult, unspecified obesity type (CMS/[facility]) Factor V Leiden ([facility]) Primary hypercoagulable state Tobacco user Tobacco use disorder ELENA (obstructive sleep apnea) Obstructive sleep apnea (adult) (pediatric) Environmental and seasonal allergies Type 2 diabetes mellitus with insulin therapy ([facility])- Primary Peripheral vascular disease, unspecified ([facility]) Peripheral vascular disease, unspecified Atherosclerosis of aorta ([facility]) Atherosclerosis of aorta Diabetic neuropathy, painful ([facility]) Type II or unspecified type diabetes mellitus with neurological manifestations, not stated as uncontrolled Type 2 diabetes mellitus with diabetic neuropathy, with long-term current use of insulin ([facility]) CAD in [place] artery ([facility]) Bilateral lower extremity edema Class 3 severe obesity with serious comorbidity and body mass index (BMI) of 45.0 to 49.9 in adult, unspecified obesity type ([facility]) Environmental and seasonal allergies documented in this encounter [facility]* Diagnosis Encounter for annual wellness visit (AWV) in Medicare patient- Primary Type 2 diabetes mellitus with diabetic neuropathy, with long-term current use of insulin ([facility]) CAD in [place] artery ([facility]) Tobacco user Tobacco use disorder Malignant neoplasm of kidney, unspecified laterality ([facility]) Type 2 diabetes mellitus with insulin therapy ([facility]) Routine general medical examination at health care facility Routine general medical examination at a health care facility Type 2 diabetes mellitus with insulin therapy ([facility])- Primary CAD in [place] artery ([facility]) Type 2 diabetes mellitus with diabetic neuropathy, with long-term current use of insulin ([facility]) Type 2 diabetes mellitus with diabetic neuropathy, unspecified ([facility]) Diabetic neuropathy, painful ([facility]) Type II or unspecified type diabetes mellitus with neurological manifestations, not stated as uncontrolled Anxiety and depression ([facility]) Anemia, unspecified type Gastroesophageal reflux disease without esophagitis Esophageal reflux Hypertriglyceridemia ([facility]) Pure hyperglyceridemia Bilateral lower extremity edema Chronic bronchitis, unspecified chronic bronchitis type ([facility]/HCC) Class 3 severe obesity with serious comorbidity and body mass index (BMI) of 45.0 to 49.9 in adult, unspecified obesity type ([facility]) Factor V Leiden ([facility]) Primary hypercoagulable state Tobacco user Tobacco use disorder ELENA (obstructive sleep apnea) Obstructive sleep apnea (adult) (pediatric) Environmental and seasonal allergies Type 2 diabetes mellitus with insulin therapy ([facility])- Primary Peripheral vascular disease, unspecified ([facility]) Peripheral vascular disease, unspecified Atherosclerosis of aorta ([facility]) Atherosclerosis of aorta Diabetic neuropathy, painful ([facility]) Type II or unspecified type diabetes mellitus with neurological manifestations, not stated as uncontrolled Type 2 diabetes mellitus with diabetic neuropathy, with long-term current use of insulin ([facility]) CAD in [place] artery ([facility]) Bilateral lower extremity edema Class 3 severe obesity with serious comorbidity and body mass index (BMI) of 45.0 to 49.9 in adult, unspecified obesity type ([facility]) Benign paroxysmal positional vertigo, unspecified laterality- Primary ELENA (obstructive sleep apnea) Obstructive sleep apnea (adult) (pediatric) Class 3 severe obesity with serious comorbidity and body mass index (BMI) of 45.0 to 49.9 in adult, unspecified obesity type ([facility]) Diabetic peripheral neuropathy associated with type 2 diabetes mellitus ([facility]) Hypersomnia Hypersomnia, unspecified Dizziness and giddiness documented in this encounter [facility]* Diagnosis Encounter for annual wellness visit (AWV) in Medicare patient- Primary Type 2 diabetes mellitus with diabetic neuropathy, with long-term current use of insulin ([facility]) CAD in [place] artery ([facility]) Tobacco user Tobacco use disorder Malignant neoplasm of kidney, unspecified laterality ([facility]) Type 2 diabetes mellitus with insulin therapy ([facility]) Routine general medical examination at health care facility Routine general medical examination at a health care facility Type 2 diabetes mellitus with insulin therapy ([facility])- Primary CAD in [place] artery ([facility]) Type 2 diabetes mellitus with diabetic neuropathy, with long-term current use of insulin ([facility]) Type 2 diabetes mellitus with diabetic neuropathy, unspecified ([facility]) Diabetic neuropathy, painful ([facility]) Type II or unspecified type diabetes mellitus with neurological manifestations, not stated as uncontrolled Anxiety and depression ([facility]) Anemia, unspecified type Gastroesophageal reflux disease without esophagitis Esophageal reflux Hypertriglyceridemia ([facility]) Pure hyperglyceridemia Bilateral lower extremity edema Chronic bronchitis, unspecified chronic bronchitis type ([facility]) Class 3 severe obesity with serious comorbidity and body mass index (BMI) of 45.0 to 49.9 in adult, unspecified obesity type (CMS/HCC) Factor V Leiden ([facility]) Primary hypercoagulable state Tobacco user Tobacco use disorder ELENA (obstructive sleep apnea) Obstructive sleep apnea (adult) (pediatric) Environmental and seasonal allergies Type 2 diabetes mellitus with insulin therapy ([facility])- Primary Peripheral vascular disease, unspecified ([facility]) Peripheral vascular disease, unspecified Atherosclerosis of aorta ([facility]) Atherosclerosis of aorta Diabetic neuropathy, painful ([facility]) Type II or unspecified type diabetes mellitus with neurological manifestations, not stated as uncontrolled Type 2 diabetes mellitus with diabetic neuropathy, with long-term current use of insulin ([facility]) CAD in [place] artery ([facility]) Bilateral lower extremity edema Class 3 severe obesity with serious comorbidity and body mass index (BMI) of 45.0 to 49.9 in adult, unspecified obesity type ([facility]) Rupture of right Achilles tendon, subsequent encounter- Primary Right knee pain, unspecified chronicity Arthritis of right knee documented in this encounter [facility]* Diagnosis Encounter for annual wellness visit (AWV) in Medicare patient- Primary Type 2 diabetes mellitus with diabetic neuropathy, with long-term current use of insulin ([facility]) CAD in [place] artery ([facility]) Tobacco user Tobacco use disorder Malignant neoplasm of kidney, unspecified laterality ([facility]) Type 2 diabetes mellitus with insulin therapy ([facility]) Routine general medical examination at health care facility Routine general medical examination at a health care facility Type 2 diabetes mellitus with insulin therapy ([facility])- Primary CAD in [place] artery ([facility]) Type 2 diabetes mellitus with diabetic neuropathy, with long-term current use of insulin ([facility]) Type 2 diabetes mellitus with diabetic neuropathy, unspecified ([facility]) Diabetic neuropathy, painful ([facility]) Type II or unspecified type diabetes mellitus with neurological manifestations, not stated as uncontrolled Anxiety and depression (CMS/[facility]) Anemia, unspecified type Gastroesophageal reflux disease without esophagitis Esophageal reflux Hypertriglyceridemia ([facility]) Pure hyperglyceridemia Bilateral lower extremity edema Chronic bronchitis, unspecified chronic bronchitis type (CMS/HCC) Class 3 severe obesity with serious comorbidity and body mass index (BMI) of 45.0 to 49.9 in adult, unspecified obesity type (CMS/HCC) Factor V Leiden ([facility]) Primary hypercoagulable state Tobacco user Tobacco use disorder ELENA (obstructive sleep apnea) Obstructive sleep apnea (adult) (pediatric) Environmental and seasonal allergies Type 2 diabetes mellitus with insulin therapy ([facility])- Primary Peripheral vascular disease, unspecified ([facility]) Peripheral vascular disease, unspecified Atherosclerosis of aorta ([facility]) Atherosclerosis of aorta Diabetic neuropathy, painful ([facility]) Type II or unspecified type diabetes mellitus with neurological manifestations, not stated as uncontrolled Type 2 diabetes mellitus with diabetic neuropathy, with long-term current use of insulin ([facility]) CAD in [place] artery ([facility]) Bilateral lower extremity edema Class 3 severe obesity with serious comorbidity and body mass index (BMI) of 45.0 to 49.9 in adult, unspecified obesity type ([facility]) Chronic back pain, unspecified back location, unspecified back pain laterality Environmental and seasonal allergies Type 2 diabetes mellitus with diabetic neuropathy, with long-term current use of insulin ([facility]) documented in this encounter [facility]* Diagnosis Encounter for annual wellness visit (AWV) in Medicare patient- Primary Type 2 diabetes mellitus with diabetic neuropathy, with long-term current use of insulin ([facility]) CAD in [place] artery ([facility]) Tobacco user Tobacco use disorder Malignant neoplasm of kidney, unspecified laterality (CMS/[facility]) Type 2 diabetes mellitus with insulin therapy ([facility]) Routine general medical examination at health care facility Routine general medical examination at a health care facility Type 2 diabetes mellitus with insulin therapy ([facility])- Primary CAD in [place] artery ([facility]) Type 2 diabetes mellitus with diabetic neuropathy, with long-term current use of insulin ([facility]) Type 2 diabetes mellitus with diabetic neuropathy, unspecified (CMS/[facility]) Diabetic neuropathy, painful (CMS/[facility]) Type II or unspecified type diabetes mellitus with neurological manifestations, not stated as uncontrolled Anxiety and depression (CMS/[facility]) Anemia, unspecified type Gastroesophageal reflux disease without esophagitis Esophageal reflux Hypertriglyceridemia ([facility]) Pure hyperglyceridemia Bilateral lower extremity edema Chronic bronchitis, unspecified chronic bronchitis type ([facility]) Class 3 severe obesity with serious comorbidity and body mass index (BMI) of 45.0 to 49.9 in adult, unspecified obesity type ([facility]) Factor V Leiden ([facility]) Primary hypercoagulable state Tobacco user Tobacco use disorder ELENA (obstructive sleep apnea) Obstructive sleep apnea (adult) (pediatric) Environmental and seasonal allergies Type 2 diabetes mellitus with insulin therapy ([facility])- Primary Peripheral vascular disease, unspecified ([facility]) Peripheral vascular disease, unspecified Atherosclerosis of aorta ([facility]) Atherosclerosis of aorta Diabetic neuropathy, painful ([facility]) Type II or unspecified type diabetes mellitus with neurological manifestations, not stated as uncontrolled Type 2 diabetes mellitus with diabetic neuropathy, with long-term current use of insulin ([facility]) CAD in [place] artery ([facility]) Bilateral lower extremity edema Class 3 severe obesity with serious comorbidity and body mass index (BMI) of 45.0 to 49.9 in adult, unspecified obesity type ([facility] [facility] Type 2 diabetes mellitus with diabetic neuropathy, with long-term current use of insulin ([facility] Primary Type 2 diabetes mellitus with diabetic chronic kidney disease ([facility]) Chronic kidney disease, stage 3a ([facility]) ([facility]) ELENA (obstructive sleep apnea) Obstructive sleep apnea (adult) (pediatric) PAD (peripheral artery disease) ([facility]) Unspecified peripheral vascular disease CAD in [place] ([facility] Gastroesophageal reflux disease without esophagitis Esophageal reflux Primary hypertension ([facility]) Unspecified essential hypertension Type 2 diabetes mellitus with insulin therapy ([facility]) Class 3 severe obesity with serious comorbidity and body mass index (BMI) of 45.0 to 49.9 in adult, unspecified obesity type ([facility]) Type 2 diabetes mellitus with retinopathy of both eyes, with long-term current use of insulin, macular edema presence unspecified, unspecified retinopathy severity ([facility]) Factor V Leiden ([facility]) Primary hypercoagulable state Encounter for screening mammogram for malignant neoplasm of breast documented in this encounter [facility] HealthcareEvaluation note* Diagnosis Encounter for annual wellness visit (AWV) in Medicare patient- Primary Type 2 diabetes mellitus with diabetic neuropathy, with long-term current use of insulin ([facility]) CAD in [place] ([facility]) Tobacco user Tobacco use disorder Malignant neoplasm of kidney, unspecified laterality ([facility]) Type 2 diabetes mellitus with insulin therapy ([facility]) Routine general medical examination at health care facility Routine general medical examination at a health care facility Type 2 diabetes mellitus with insulin therapy ([facility])- Primary CAD in [place] ([facility]) Type 2 diabetes mellitus with diabetic neuropathy, with long-term current use of insulin ([facility]) Type 2 diabetes mellitus with diabetic neuropathy, unspecified ([facility]) Diabetic neuropathy, painful ([facility]) Type II or unspecified type diabetes mellitus with neurological manifestations, not stated as uncontrolled Anxiety and depression ([facility]) Anemia, unspecified type Gastroesophageal reflux disease without esophagitis Esophageal reflux Hypertriglyceridemia ([facility]) Pure hyperglyceridemia Bilateral lower extremity edema Chronic bronchitis, unspecified chronic bronchitis type ([facility]) Class 3 severe obesity with serious comorbidity and body mass index (BMI) of 45.0 to 49.9 in adult, unspecified obesity type ([facility]) Factor V Leiden ([facility]) Primary hypercoagulable state Tobacco user Tobacco use disorder ELENA (obstructive sleep apnea) Obstructive sleep apnea (adult) (pediatric) Environmental and seasonal allergies Type 2 diabetes mellitus with insulin therapy ([facility])- Primary Peripheral vascular disease, unspecified ([facility]) Peripheral vascular disease, unspecified Atherosclerosis of aorta ([facility]) Atherosclerosis of aorta Diabetic neuropathy, painful ([facility]) Type II or unspecified type diabetes mellitus with neurological manifestations, not stated as uncontrolled Type 2 diabetes mellitus with diabetic neuropathy, with long-term current use of insulin ([facility]) CAD in [place] ([facility]) Bilateral lower extremity edema Class 3 severe obesity with serious comorbidity and body mass index (BMI) of 45.0 to 49.9 in adult, unspecified obesity type ([facility]) Type 2 diabetes mellitus with diabetic neuropathy, with long-term current use of insulin ([facility])- Primary Type 2 diabetes mellitus with diabetic chronic kidney disease ([facility]) Chronic kidney disease, stage 3a ([facility]) ([facility]) ELENA (obstructive sleep apnea) Obstructive sleep apnea (adult) (pediatric) PAD (peripheral artery disease) ([facility] Unspecified peripheral vascular disease CAD in [place] ([facility] Gastroesophageal reflux disease without esophagitis Esophageal reflux Primary hypertension ([facility]) Unspecified essential hypertension Type 2 diabetes mellitus with insulin therapy ([facility]) Class 3 severe obesity with serious comorbidity and body mass index (BMI) of 45.0 to 49.9 in adult, unspecified obesity type ([facility]) Type 2 diabetes mellitus with retinopathy of both eyes, with long-term current use of insulin, macular edema presence unspecified, unspecified retinopathy severity ([facility]) Factor V Leiden ([facility]) Primary hypercoagulable state Encounter for screening mammogram for malignant neoplasm of breast Ruptured, tendon, Achilles, right, subsequent encounter- Primary documented in this encounter [facility] note* Diagnosis Type 2 diabetes mellitus with insulin therapy ([facility])- Primary Peripheral vascular disease, unspecified ([facility]) Peripheral vascular disease, unspecified Atherosclerosis of aorta ([facility]) Atherosclerosis of aorta Diabetic neuropathy, painful ([facility]) Type II or unspecified type diabetes mellitus with neurological manifestations, not stated as uncontrolled Type 2 diabetes mellitus with diabetic neuropathy, with long-term current use of insulin ([facility]) CAD in [place] ([facility]) Bilateral lower extremity edema Class 3 severe obesity with serious comorbidity and body mass index (BMI) of 45.0 to 49.9 in adult, unspecified obesity type ([facility]) documented in this encounter [facility]* Diagnosis Type 2 diabetes mellitus with diabetic neuropathy, with long-term current use of insulin ([facility]) Type 2 diabetes mellitus without complications ([facility]) documented in this encounter [facility]* Diagnosis Bilateral lower extremity edema Gastroesophageal reflux disease without esophagitis Esophageal reflux documented in this encounter [facility]* Diagnosis Hypertriglyceridemia ([facility]) Pure hyperglyceridemia documented in this encounter [facility]* Diagnosis Encounter for annual wellness visit (AWV) in Medicare patient- Primary Type 2 diabetes mellitus with diabetic neuropathy, with long-term current use of insulin ([facility]) CAD in [place] ([facility]) Tobacco user Tobacco use disorder Malignant neoplasm of kidney, unspecified laterality ([facility]) Type 2 diabetes mellitus with insulin therapy ([facility]) Routine general medical examination at health care facility Routine general medical examination at a health care facility Type 2 diabetes mellitus with insulin therapy ([facility])- Primary CAD in [place] ([facility]) Type 2 diabetes mellitus with diabetic neuropathy, with long-term current use of insulin ([facility]) Type 2 diabetes mellitus with diabetic neuropathy, unspecified ([facility]) Diabetic neuropathy, painful ([facility]) Type II or unspecified type diabetes mellitus with neurological manifestations, not stated as uncontrolled Anxiety and depression ([facility]) Anemia, unspecified type Gastroesophageal reflux disease without esophagitis Esophageal reflux Hypertriglyceridemia ([facility]) Pure hyperglyceridemia Bilateral lower extremity edema Chronic bronchitis, unspecified chronic bronchitis type ([facility]) Class 3 severe obesity with serious comorbidity and body mass index (BMI) of 45.0 to 49.9 in adult, unspecified obesity type ([facility]) Factor V Leiden ([facility]) Primary hypercoagulable state Tobacco user Tobacco use disorder ELENA (obstructive sleep apnea) Obstructive sleep apnea (adult) (pediatric) Environmental and seasonal allergies Type 2 diabetes mellitus with insulin therapy [place] Primary Peripheral vascular disease, unspecified ([facility] Peripheral vascular disease, unspecified Atherosclerosis of aorta ([facility] Atherosclerosis of aorta Diabetic neuropathy, painful ([facility]) Type II or unspecified type diabetes mellitus with neurological manifestations, not stated as uncontrolled Type 2 diabetes mellitus with diabetic neuropathy, with long-term current use of insulin ([facility]) CAD in [place] ([facility]) Bilateral lower extremity edema Class 3 severe obesity with serious comorbidity and body mass index (BMI) of 45.0 to 49.9 in adult, unspecified obesity type ([facility]) Type 2 diabetes mellitus with diabetic neuropathy, with long-term current use of insulin ([facility] Primary Type 2 diabetes mellitus with diabetic chronic kidney disease ([facility]) Chronic kidney disease, stage 3a ([facility]) ([facility] ELENA (obstructive sleep apnea) Obstructive sleep apnea (adult) (pediatric) PAD (peripheral artery disease) ([facility]) Unspecified peripheral vascular disease CAD in [place] ([facility] Gastroesophageal reflux disease without esophagitis Esophageal reflux Primary hypertension ([facility]) Unspecified essential hypertension Type 2 diabetes mellitus with insulin therapy ([facility] Class 3 severe obesity with serious comorbidity and body mass index (BMI) of 45.0 to 49.9 in adult, unspecified obesity type ([facility]) Type 2 diabetes mellitus with retinopathy of both eyes, with long-term current use of insulin, macular edema presence unspecified, unspecified retinopathy severity ([facility]) Factor V Leiden ([facility]) Primary hypercoagulable state Encounter for screening mammogram for malignant neoplasm of breast Internal derangement of right knee- Primary documented in this encounter [facility]* Diagnosis Encounter for annual wellness visit (AWV) in Medicare patient- Primary Type 2 diabetes mellitus with diabetic neuropathy, with long-term current use of insulin ([facility]) CAD in [place] ([facility]) Tobacco user Tobacco use disorder Malignant neoplasm of kidney, unspecified laterality ([facility]) Type 2 diabetes mellitus with insulin therapy ([facility]) Routine general medical examination at [place] [facility] Routine general medical examination at a [place] [facility] Type 2 diabetes mellitus with insulin therapy ([facility])- Primary CAD in [place] ([facility]) Type 2 diabetes mellitus with diabetic neuropathy, with long-term current use of insulin ([facility]) Type 2 diabetes mellitus with diabetic neuropathy, unspecified ([facility]) Diabetic neuropathy, painful ([facility]) Type II or unspecified type diabetes mellitus with neurological manifestations, not stated as uncontrolled Anxiety and depression ([facility]) Anemia, unspecified type Gastroesophageal reflux disease without esophagitis Esophageal reflux Hypertriglyceridemia ([facility]) Pure hyperglyceridemia Bilateral lower extremity edema Chronic bronchitis, unspecified chronic bronchitis type ([facility]) Class 3 severe obesity with serious comorbidity and body mass index (BMI) of 45.0 to 49.9 in adult, unspecified obesity type ([facility]) Factor V Leiden ([facility]) Primary hypercoagulable state Tobacco user Tobacco use disorder ELENA (obstructive sleep apnea) Obstructive sleep apnea (adult) (pediatric) Environmental and seasonal allergies Type 2 diabetes mellitus with insulin therapy ([facility])- Primary Peripheral vascular disease, unspecified ([facility]) Peripheral vascular disease, unspecified Atherosclerosis of aorta ([facility]) Atherosclerosis of aorta Diabetic neuropathy, painful ([facility]) Type II or unspecified type diabetes mellitus with neurological manifestations, not stated as uncontrolled Type 2 diabetes mellitus with diabetic neuropathy, with long-term current use of insulin ([facility]) CAD in [place] ([facility]) Bilateral lower extremity edema Class 3 severe obesity with serious comorbidity and body mass index (BMI) of 45.0 to 49.9 in adult, unspecified obesity type ([facility]) Type 2 diabetes mellitus with diabetic neuropathy, with long-term current use of insulin ([facility])- Primary Type 2 diabetes mellitus with diabetic chronic kidney disease ([facility]) Chronic kidney disease, stage 3a (HCC) ([facility]) ELENA (obstructive sleep apnea) Obstructive sleep apnea (adult) (pediatric) PAD (peripheral artery disease) ([facility] Unspecified peripheral vascular disease CAD in [place] ([facility] Gastroesophageal reflux disease without esophagitis Esophageal reflux Primary hypertension ([facility]) Unspecified essential hypertension Type 2 diabetes mellitus with insulin therapy ([facility]) Class 3 severe obesity with serious comorbidity and body mass index (BMI) of 45.0 to 49.9 in adult, unspecified obesity type ([facility]) Type 2 diabetes mellitus with retinopathy of both eyes, with long-term current use of insulin, macular edema presence unspecified, unspecified retinopathy severity ([facility]) Factor V Leiden ([facility]) Primary hypercoagulable state Encounter for screening mammogram for malignant neoplasm of breast Factor V Leiden ([facility]) Primary hypercoagulable state Hypertriglyceridemia ([facility]) Pure hyperglyceridemia documented in this encounter [facility] HealthcareEvaluation note* Diagnosis Encounter for annual wellness visit (AWV) in Medicare patient- Primary Type 2 diabetes mellitus with diabetic neuropathy, with long-term current use of insulin ([facility]) CAD in [place] ([facility]) Tobacco user Tobacco use disorder Malignant neoplasm of kidney, unspecified laterality ([facility]) Type 2 diabetes mellitus with insulin therapy ([facility]) Routine general medical examination at health care facility Routine general medical examination at a health care facility Type 2 diabetes mellitus with insulin therapy ([facility])- Primary CAD in [place] ([facility]) Type 2 diabetes mellitus with diabetic neuropathy, with long-term current use of insulin ([facility]) Type 2 diabetes mellitus with diabetic neuropathy, unspecified ([facility]) Diabetic neuropathy, painful ([facility]) Type II or unspecified type diabetes mellitus with neurological manifestations, not stated as uncontrolled Anxiety and depression ([facility]) Anemia, unspecified type Gastroesophageal reflux disease without esophagitis Esophageal reflux Hypertriglyceridemia ([facility]) Pure hyperglyceridemia Bilateral lower extremity edema Chronic bronchitis, unspecified chronic bronchitis type ([facility]) Class 3 severe obesity with serious comorbidity and body mass index (BMI) of 45.0 to 49.9 in adult, unspecified obesity type ([facility]) Factor V Leiden ([facility]) Primary hypercoagulable state Tobacco user Tobacco use disorder ELENA (obstructive sleep apnea) Obstructive sleep apnea (adult) (pediatric) Environmental and seasonal allergies Type 2 diabetes mellitus with insulin therapy ([facility])- Primary Peripheral vascular disease, unspecified ([facility]) Peripheral vascular disease, unspecified Atherosclerosis of aorta ([facility]) Atherosclerosis of aorta Diabetic neuropathy, painful ([facility]) Type II or unspecified type diabetes mellitus with neurological manifestations, not stated as uncontrolled Type 2 diabetes mellitus with diabetic neuropathy, with long-term current use of insulin ([facility]) CAD in [place] ([facility]) Bilateral lower extremity edema Class 3 severe obesity with serious comorbidity and body mass index (BMI) of 45.0 to 49.9 in adult, unspecified obesity type ([facility]) Type 2 diabetes mellitus with diabetic neuropathy, with long-term current use of insulin ([facility])- Primary Type 2 diabetes mellitus with diabetic chronic kidney disease ([facility]) Chronic kidney disease, stage 3a (HCC) ([facility]) ELENA (obstructive sleep apnea) Obstructive sleep apnea (adult) (pediatric) PAD (peripheral artery disease) ([facility]) Unspecified peripheral vascular disease CAD in [place] ([facility] Gastroesophageal reflux disease without esophagitis Esophageal reflux Primary hypertension ([facility] Unspecified essential hypertension Type 2 diabetes mellitus with insulin therapy ([facility]) Class 3 severe obesity with serious comorbidity and body mass index (BMI) of 45.0 to 49.9 in adult, unspecified obesity type ([facility]) Type 2 diabetes mellitus with retinopathy of both eyes, with long-term current use of insulin, macular edema presence unspecified, unspecified retinopathy severity ([facility]) Factor V Leiden ([facility]) Primary hypercoagulable state Encounter for screening mammogram for malignant neoplasm of breast Primary osteoarthritis of right knee- Primary Acute pain of right knee Ruptured, tendon, Achilles, right, subsequent encounter Complex tear of medial meniscus of right knee, unspecified whether old or current tear, initial encounter Complex tear of lateral meniscus of right knee, unspecified whether old or current tear, initial encounter documented in this encounter [facility]* Diagnosis Encounter for annual wellness visit (AWV) in Medicare patient- Primary Type 2 diabetes mellitus with diabetic neuropathy, with long-term current use of insulin ([facility]) CAD in [place] artery ([facility]) Tobacco user Tobacco use disorder Malignant neoplasm of kidney, unspecified laterality ([facility]) Type 2 diabetes mellitus with insulin therapy ([facility]) Routine general medical examination at health care facility Routine general medical examination at a [place] [facility] [place] Type 2 diabetes mellitus with insulin therapy ([facility])- Primary CAD in [place] artery ([facility]) Type 2 diabetes mellitus with diabetic neuropathy, with long-term current use of insulin ([facility]) Type 2 diabetes mellitus with diabetic neuropathy, unspecified ([facility]) Diabetic neuropathy, painful ([facility]) Type II or unspecified type diabetes mellitus with neurological manifestations, not stated as uncontrolled Anxiety and depression ([facility]) Anemia, unspecified type Gastroesophageal reflux disease without esophagitis Esophageal reflux Hypertriglyceridemia ([facility]) Pure hyperglyceridemia Bilateral lower extremity edema Chronic bronchitis, unspecified chronic bronchitis type ([facility]) Class 3 severe obesity with serious comorbidity and body mass index (BMI) of 45.0 to 49.9 in adult, unspecified obesity type ([facility]) Factor V Leiden ([facility]) Primary hypercoagulable state Tobacco user Tobacco use disorder ELENA (obstructive sleep apnea) Obstructive sleep apnea (adult) (pediatric) Environmental and seasonal allergies Type 2 diabetes mellitus with insulin therapy ([facility])- Primary Peripheral vascular disease, unspecified ([facility]) Peripheral vascular disease, unspecified Atherosclerosis of aorta ([facility]) Atherosclerosis of aorta Diabetic neuropathy, painful ([facility]) Type II or unspecified type diabetes mellitus with neurological manifestations, not stated as uncontrolled Type 2 diabetes mellitus with diabetic neuropathy, with long-term current use of insulin ([facility]) CAD in [place] artery ([facility]) Bilateral lower extremity edema Class 3 severe obesity with serious comorbidity and body mass index (BMI) of 45.0 to 49.9 in adult, unspecified obesity type ([facility]) Type 2 diabetes mellitus with diabetic neuropathy, with long-term current use of insulin ([facility])- Primary Type 2 diabetes mellitus with diabetic chronic kidney disease ([facility]) Chronic kidney disease, stage 3a (HCC) ([facility]) ELENA (obstructive sleep apnea) Obstructive sleep apnea (adult) (pediatric) PAD (peripheral artery disease) ([facility]) Unspecified peripheral vascular disease CAD in [place] artery ([facility]) Gastroesophageal reflux disease without esophagitis Esophageal reflux Primary hypertension ([facility]) Unspecified essential hypertension Type 2 diabetes mellitus with insulin therapy ([facility]) Class 3 severe obesity with serious comorbidity and body mass index (BMI) of 45.0 to 49.9 in adult, unspecified obesity type ([facility]/HCC) Type 2 diabetes mellitus with retinopathy of both eyes, with long-term current use of insulin, macular edema presence unspecified, unspecified retinopathy severity ([facility]) Factor V Leiden ([facility]) Primary hypercoagulable state Encounter for screening mammogram for malignant neoplasm of breast Acute pain of right knee- Primary Ruptured, tendon, Achilles, right, subsequent encounter Primary osteoarthritis of right knee documented in this encounter [facility] HealthcareEvaluation note* Diagnosis Encounter for annual wellness visit (AWV) in Medicare patient- Primary Type 2 diabetes mellitus with diabetic neuropathy, with long-term current use of insulin ([facility]) CAD in [place] artery ([facility]) Tobacco user Tobacco use disorder Malignant neoplasm of kidney, unspecified laterality ([facility]) Type 2 diabetes mellitus with insulin therapy ([facility]) Routine general medical examination at health care facility Routine general medical examination at a health care facility Type 2 diabetes mellitus with insulin therapy ([facility])- Primary CAD in [place] artery ([facility]) Type 2 diabetes mellitus with diabetic neuropathy, with long-term current use of insulin ([facility]) Type 2 diabetes mellitus with diabetic neuropathy, unspecified ([facility]) Diabetic neuropathy, painful ([facility]) Type II or unspecified type diabetes mellitus with neurological manifestations, not stated as uncontrolled Anxiety and depression ([facility]) Anemia, unspecified type Gastroesophageal reflux disease without esophagitis Esophageal reflux Hypertriglyceridemia ([facility]) Pure hyperglyceridemia Bilateral lower extremity edema Chronic bronchitis, unspecified chronic bronchitis type ([facility]) Class 3 severe obesity with serious comorbidity and body mass index (BMI) of 45.0 to 49.9 in adult, unspecified obesity type ([facility]) Factor V Leiden ([facility]) Primary hypercoagulable state Tobacco user Tobacco use disorder ELENA (obstructive sleep apnea) Obstructive sleep apnea (adult) (pediatric) Environmental and seasonal allergies Type 2 diabetes mellitus with insulin therapy ([facility])- Primary Peripheral vascular disease, unspecified (CMS/[facility]) Peripheral vascular disease, unspecified Atherosclerosis of aorta ([facility]) Atherosclerosis of aorta Diabetic neuropathy, painful (CMS/HCC) Type II or unspecified type diabetes mellitus with neurological manifestations, not stated as uncontrolled Type 2 diabetes mellitus with diabetic neuropathy, with long-term current use of insulin ([facility]) CAD in [place] artery ([facility]) Bilateral lower extremity edema Class 3 severe obesity with serious comorbidity and body mass index (BMI) of 45.0 to 49.9 in adult, unspecified obesity type ([facility]) Type 2 diabetes mellitus with diabetic neuropathy, with long-term current use of insulin ([facility])- Primary Type 2 diabetes mellitus with diabetic chronic kidney disease ([facility]) Chronic kidney disease, stage 3a (HCC) ([facility]) ELENA (obstructive sleep apnea) Obstructive sleep apnea (adult) (pediatric) PAD (peripheral artery disease) ([facility]) Unspecified peripheral vascular disease CAD in [place] artery ([facility] Gastroesophageal reflux disease without esophagitis Esophageal reflux Primary hypertension ([facility]) Unspecified essential hypertension Type 2 diabetes mellitus with insulin therapy ([facility]) Class 3 severe obesity with serious comorbidity and body mass index (BMI) of 45.0 to 49.9 in adult, unspecified obesity type ([facility]) Type 2 diabetes mellitus with retinopathy of both eyes, with long-term current use of insulin, macular edema presence unspecified, unspecified retinopathy severity ([facility]) Factor V Leiden ([facility]) Primary hypercoagulable state Encounter for screening mammogram for malignant neoplasm of breast Anemia, unspecified Type 2 diabetes mellitus without complications ([facility]) documented in this encounter [facility] HealthcareEvaluation note* Diagnosis Encounter for annual wellness visit (AWV) in [place] patient- Primary Type 2 diabetes mellitus with diabetic neuropathy, with long-term current use of insulin ([facility]) CAD in [place] artery ([facility]) Tobacco user Tobacco use disorder Malignant neoplasm of kidney, unspecified laterality ([facility]) Type 2 diabetes mellitus with insulin therapy ([facility]) Routine general medical examination at health care facility Routine general medical examination at a health care facility Type 2 diabetes mellitus with insulin therapy ([facility])- Primary CAD in [place] artery ([facility]) Type 2 diabetes mellitus with diabetic neuropathy, with long-term current use of insulin ([facility]) Type 2 diabetes mellitus with diabetic neuropathy, unspecified ([facility]) Diabetic neuropathy, painful ([facility]) Type II or unspecified type diabetes mellitus with neurological manifestations, not stated as uncontrolled Anxiety and depression (CMS/HCC) Anemia, unspecified type Gastroesophageal reflux disease without esophagitis Esophageal reflux Hypertriglyceridemia (CMS/HCC) Pure hyperglyceridemia Bilateral lower extremity edema Chronic bronchitis, unspecified chronic bronchitis type (CMS/HCC) Class 3 severe obesity with serious comorbidity and body mass index (BMI) of 45.0 to 49.9 in adult, unspecified obesity type (CMS/HCC) Factor V Leiden (CMS/HCC) Primary hypercoagulable state Tobacco user Tobacco use disorder ELENA (obstructive sleep apnea) Obstructive sleep apnea (adult) (pediatric) Environmental and seasonal allergies Type 2 diabetes mellitus with insulin therapy (CMS/HCC)- Primary Peripheral vascular disease, unspecified (CMS/HCC) Peripheral vascular disease, unspecified Atherosclerosis of aorta (CMS/HCC) Atherosclerosis of aorta Diabetic neuropathy, painful (CMS/HCC) Type II or unspecified type diabetes mellitus with neurological manifestations, not stated as uncontrolled Type 2 diabetes mellitus with diabetic neuropathy, with long-term current use of insulin (CMS/HCC) CAD in [place] artery (CMS/HCC) Bilateral lower extremity edema Class 3 severe obesity with serious comorbidity and body mass index (BMI) of 45.0 to 49.9 in adult, unspecified obesity type (CMS/HCC) Type 2 diabetes mellitus with diabetic neuropathy, with long-term current use of insulin ([facility]/HCC)- Primary Type 2 diabetes mellitus with diabetic chronic kidney disease ([facility]/HCC) Chronic kidney disease, stage 3a ([facility]) (CMS/HCC) ELENA (obstructive sleep apnea) Obstructive sleep apnea (adult) (pediatric) PAD (peripheral artery disease) ([facility]/HCC) Unspecified peripheral vascular disease CAD in [place] artery ([facility]/HCC) Gastroesophageal reflux disease without esophagitis Esophageal reflux Primary hypertension (CMS/HCC) Unspecified essential hypertension Type 2 diabetes mellitus with insulin therapy (CMS/HCC) Class 3 severe obesity with serious comorbidity and body mass index (BMI) of 45.0 to 49.9 in adult, unspecified obesity type (CMS/HCC) Type 2 diabetes mellitus with retinopathy of both eyes, with long-term current use of insulin, macular edema presence unspecified, unspecified retinopathy severity (CMS/HCC) Factor V Leiden (CMS/HCC) Primary hypercoagulable state Encounter for screening mammogram for malignant neoplasm of breast Atherosclerotic heart disease of [place] coronary artery without angina pectoris (CMS/HCC) documented in this encounter [facility] HealthcareEvaluation note* Diagnosis Encounter for annual wellness visit (AWV) in [place] patient- Primary Type 2 diabetes mellitus with diabetic neuropathy, with long-term current use of insulin ([facility]) CAD in [place] artery ([facility]) Tobacco user Tobacco use disorder Malignant neoplasm of kidney, unspecified laterality ([facility]) Type 2 diabetes mellitus with insulin therapy ([facility]) Rout[place] [facility] medical examination at [place] [facility] Routine general medical examination at a [place] [facility] Type 2 diabetes mellitus with insulin therapy ([facility])- Primary CAD in [place] artery ([facility]) Type 2 diabetes mellitus with diabetic neuropathy, with long-term current use of insulin ([facility]) Type 2 diabetes mellitus with diabetic neuropathy, unspecified ([facility]) Diabetic neuropathy, painful ([facility]) Type II or unspecified type diabetes mellitus with neurological manifestations, not stated as uncontrolled Anxiety and depression ([facility]) Anemia, unspecified type Gastroesophageal reflux disease without esophagitis Esophageal reflux Hypertriglyceridemia ([facility]) Pure hyperglyceridemia Bilateral lower extremity edema Chronic bronchitis, unspecified chronic bronchitis type ([facility]) Class 3 severe obesity with serious comorbidity and body mass index (BMI) of 45.0 to 49.9 in adult, unspecified obesity type ([facility]) Factor V Leiden ([facility]) Primary hypercoagulable state Tobacco user Tobacco use disorder ELENA (obstructive sleep apnea) Obstructive sleep apnea (adult) (pediatric) Environmental and seasonal allergies Type 2 diabetes mellitus with insulin therapy ([facility])- Primary Peripheral vascular disease, unspecified ([facility]) Peripheral vascular disease, unspecified Atherosclerosis of aorta ([facility]) Atherosclerosis of aorta Diabetic neuropathy, painful ([facility]) Type II or unspecified type diabetes mellitus with neurological manifestations, not stated as uncontrolled Type 2 diabetes mellitus with diabetic neuropathy, with long-term current use of insulin ([facility]) CAD in [place] artery ([facility]) Bilateral lower extremity edema Class 3 severe obesity with serious comorbidity and body mass index (BMI) of 45.0 to 49.9 in adult, unspecified obesity type ([facility]) Type 2 diabetes mellitus with diabetic neuropathy, with long-term current use of insulin ([facility])- Primary Type 2 diabetes mellitus with diabetic chronic kidney disease ([facility]) Chronic kidney disease, stage 3a (HCC) ([facility]) ELENA (obstructive sleep apnea) Obstructive sleep apnea (adult) (pediatric) PAD (peripheral artery disease) (CMS/HCC) Unspecified peripheral vascular disease CAD in [place] artery (CMS/[facility]) Gastroesophageal reflux disease without esophagitis Esophageal reflux Primary hypertension ([facility]) Unspecified essential hypertension Type 2 diabetes mellitus with insulin therapy ([facility]) Class 3 severe obesity with serious comorbidity and body mass index (BMI) of 45.0 to 49.9 in adult, unspecified obesity type (CMS/HCC) Type 2 diabetes mellitus with retinopathy of both eyes, with long-term current use of insulin, macular edema presence unspecified, unspecified retinopathy severity (CMS/[facility]) Factor V Leiden (CMS/[facility]) Primary hypercoagulable state Encounter for screening mammogram for malignant neoplasm of breast Type 2 diabetes mellitus with diabetic neuropathy, with long-term current use of insulin ([facility]) documented in this encounter [facility] HealthcareEvaluation note* Diagnosis Encounter for annual wellness visit (AWV) in Medicare patient- Primary Type 2 diabetes mellitus with diabetic neuropathy, with long-term current use of insulin ([facility]) CAD in [place] artery (CMS/[facility]) Tobacco user Tobacco use disorder Malignant neoplasm of kidney, unspecified laterality (CMS/[facility]) Type 2 diabetes mellitus with insulin therapy ([facility]) Routine general medical examination at health care facility Routine general medical examination at a health care facility Type 2 diabetes mellitus with insulin therapy ([facility])- Primary CAD in [place] artery ([facility]) Type 2 diabetes mellitus with diabetic neuropathy, with long-term current use of insulin ([facility]) Type 2 diabetes mellitus with diabetic neuropathy, unspecified ([facility]) Diabetic neuropathy, painful ([facility]) Type II or unspecified type diabetes mellitus with neurological manifestations, not stated as uncontrolled Anxiety and depression ([facility]) Anemia, unspecified type Gastroesophageal reflux disease without esophagitis Esophageal reflux Hypertriglyceridemia ([facility]) Pure hyperglyceridemia Bilateral lower extremity edema Chronic bronchitis, unspecified chronic bronchitis type ([facility]/HCC) Class 3 severe obesity with serious comorbidity and body mass index (BMI) of 45.0 to 49.9 in adult, unspecified obesity type (CMS/HCC) Factor V Leiden ([facility]) Primary hypercoagulable state Tobacco user Tobacco use disorder ELENA (obstructive sleep apnea) Obstructive sleep apnea (adult) (pediatric) Environmental and seasonal allergies Type 2 diabetes mellitus with insulin therapy (CMS/[facility])- Primary Peripheral vascular disease, unspecified (CMS/HCC) Peripheral vascular disease, unspecified Atherosclerosis of aorta ([facility]) Atherosclerosis of aorta Diabetic neuropathy, painful ([facility]) Type II or unspecified type diabetes mellitus with neurological manifestations, not stated as uncontrolled Type 2 diabetes mellitus with diabetic neuropathy, with long-term current use of insulin ([facility] [facility] CAD in [place] ([facility]) Bilateral lower extremity edema Class 3 severe obesity with serious comorbidity and body mass index (BMI) of 45.0 to 49.9 in adult, unspecified obesity type ([facility]) Type 2 diabetes mellitus with diabetic neuropathy, with long-term current use of insulin ([facility])- Primary Type 2 diabetes mellitus with diabetic chronic kidney disease ([facility]) Chronic kidney disease, stage 3a (HCC) ([facility]) ELENA (obstructive sleep apnea) Obstructive sleep apnea (adult) (pediatric) PAD (peripheral artery disease) ([facility]) Unspecified peripheral vascular disease CAD in [place] ([facility] Gastroesophageal reflux disease without esophagitis Esophageal reflux Primary hypertension ([facility]) Unspecified essential hypertension Type 2 diabetes mellitus with insulin therapy ([facility]) Class 3 severe obesity with serious comorbidity and body mass index (BMI) of 45.0 to 49.9 in adult, unspecified obesity type ([facility]) Type 2 diabetes mellitus with retinopathy of both eyes, with long-term current use of insulin, macular edema presence unspecified, unspecified retinopathy severity ([facility]) Factor V Leiden ([facility]) Primary hypercoagulable state Encounter for screening mammogram for malignant neoplasm of breast Type 2 diabetes mellitus with insulin therapy ([facility])- Primary documented in this encounter [facility]* Diagnosis Encounter for annual wellness visit (AWV) in Medicare patient- Primary Type 2 diabetes mellitus with diabetic neuropathy, with long-term current use of insulin ([facility]) CAD in [place] ([facility]) Tobacco user Tobacco use disorder Malignant neoplasm of kidney, unspecified laterality ([facility]) Type 2 diabetes mellitus with insulin therapy ([facility]) Routine general medical examination at health care facility Routine general medical examination at a health care facility Type 2 diabetes mellitus with insulin therapy ([facility])- Primary CAD in [place] ([facility]) Type 2 diabetes mellitus with diabetic neuropathy, with long-term current use of insulin ([facility]) Type 2 diabetes mellitus with diabetic neuropathy, unspecified ([facility]) Diabetic neuropathy, painful ([facility]) Type II or unspecified type diabetes mellitus with neurological manifestations, not stated as uncontrolled Anxiety and depression ([facility]) Anemia, unspecified type Gastroesophageal reflux disease without esophagitis Esophageal reflux Hypertriglyceridemia ([facility]) Pure hyperglyceridemia Bilateral lower extremity edema Chronic bronchitis, unspecified chronic bronchitis type ([facility]) Class 3 severe obesity with serious comorbidity and body mass index (BMI) of 45.0 to 49.9 in adult, unspecified obesity type ([facility]) Factor V Leiden ([facility]) Primary hypercoagulable state Tobacco user Tobacco use disorder ELENA (obstructive sleep apnea) Obstructive sleep apnea (adult) (pediatric) Environmental and seasonal allergies Type 2 diabetes mellitus with insulin therapy ([facility])- Primary Peripheral vascular disease, unspecified ([facility]) Peripheral vascular disease, unspecified Atherosclerosis of aorta ([facility]) Atherosclerosis of aorta Diabetic neuropathy, painful ([facility]) Type II or unspecified type diabetes mellitus with neurological manifestations, not stated as uncontrolled Type 2 diabetes mellitus with diabetic neuropathy, with long-term current use of insulin ([facility]) CAD in [place] ([facility]) Bilateral lower extremity edema Class 3 severe obesity with serious comorbidity and body mass index (BMI) of 45.0 to 49.9 in adult, unspecified obesity type ([facility]) Type 2 diabetes mellitus with diabetic neuropathy, with long-term current use of insulin ([facility])- Primary Type 2 diabetes mellitus with diabetic chronic kidney disease ([facility]) Chronic kidney disease, stage 3a ([facility]) ([facility]) ELENA (obstructive sleep apnea) Obstructive sleep apnea (adult) (pediatric) PAD (peripheral artery disease) ([facility]) Unspecified peripheral vascular disease CAD in [place] ([facility] Gastroesophageal reflux disease without esophagitis Esophageal reflux Primary hypertension ([facility]) Unspecified essential hypertension Type 2 diabetes mellitus with insulin therapy ([facility]) Class 3 severe obesity with serious comorbidity and body mass index (BMI) of 45.0 to 49.9 in adult, unspecified obesity type ([facility]) Type 2 diabetes mellitus with retinopathy of both eyes, with long-term current use of insulin, macular edema presence unspecified, unspecified retinopathy severity ([facility]) Factor V Leiden ([facility]) Primary hypercoagulable state Encounter for screening mammogram for malignant neoplasm of breast Acute pain of right knee- Primary Complex tear of medial meniscus of right knee, unspecified whether old or current tear, initial encounter documented in this encounter [facility] HealthcareEvaluation note* Diagnosis Encounter for annual wellness visit (AWV) in Medicare patient- Primary Type 2 diabetes mellitus with diabetic neuropathy, with long-term current use of insulin ([facility]) CAD in [place] ([facility]) Tobacco user Tobacco use disorder Malignant neoplasm of kidney, unspecified laterality ([facility]) Type 2 diabetes mellitus with insulin therapy ([facility]) Routine general medical examination at health care facility Routine general medical examination at a [place] healthcare care facility Type 2 diabetes mellitus with insulin therapy ([facility])- Primary CAD in [place] ([facility]) Type 2 diabetes mellitus with diabetic neuropathy, with long-term current use of insulin ([facility]) Type 2 diabetes mellitus with diabetic neuropathy, unspecified ([facility]) Diabetic neuropathy, painful ([facility]) Type II or unspecified type diabetes mellitus with neurological manifestations, not stated as uncontrolled Anxiety and depression ([facility]) Anemia, unspecified type Gastroesophageal reflux disease without esophagitis Esophageal reflux Hypertriglyceridemia ([facility]) Pure hyperglyceridemia Bilateral lower extremity edema Chronic bronchitis, unspecified chronic bronchitis type ([facility]) Class 3 severe obesity with serious comorbidity and body mass index (BMI) of 45.0 to 49.9 in adult, unspecified obesity type ([facility]) Factor V Leiden ([facility]) Primary hypercoagulable state Tobacco user Tobacco use disorder ELENA (obstructive sleep apnea) Obstructive sleep apnea (adult) (pediatric) Environmental and seasonal allergies Type 2 diabetes mellitus with insulin therapy ([facility])- Primary Peripheral vascular disease, unspecified ([facility]) Peripheral vascular disease, unspecified Atherosclerosis of aorta ([facility]) Atherosclerosis of aorta Diabetic neuropathy, painful ([facility]) Type II or unspecified type diabetes mellitus with neurological manifestations, not stated as uncontrolled Type 2 diabetes mellitus with diabetic neuropathy, with long-term current use of insulin ([facility]) CAD in [place] ([facility]) Bilateral lower extremity edema Class 3 severe obesity with serious comorbidity and body mass index (BMI) of 45.0 to 49.9 in adult, unspecified obesity type ([facility]) Type 2 diabetes mellitus with diabetic neuropathy, with long-term current use of insulin ([facility])- Primary Type 2 diabetes mellitus with diabetic chronic kidney disease ([facility]) Chronic kidney disease, stage 3a (HCC) ([facility]) ELENA (obstructive sleep apnea) Obstructive sleep apnea (adult) (pediatric) PAD (peripheral artery disease) ([facility]) Unspecified peripheral vascular disease CAD in [place] ([facility] Gastroesophageal reflux disease without esophagitis Esophageal reflux Primary hypertension ([facility]) Unspecified essential hypertension Type 2 diabetes mellitus with insulin therapy ([facility]) Class 3 severe obesity with serious comorbidity and body mass index (BMI) of 45.0 to 49.9 in adult, unspecified obesity type ([facility]) Type 2 diabetes mellitus with retinopathy of both eyes, with long-term current use of insulin, macular edema presence unspecified, unspecified retinopathy severity ([facility]) Factor V Leiden ([facility]) Primary hypercoagulable state Encounter for screening mammogram for malignant neoplasm of breast Encounter for annual wellness visit (AWV) in Medicare patient- Primary Malignant neoplasm of unspecified kidney, except renal pelvis ([facility]) Type 2 diabetes mellitus with diabetic chronic kidney disease ([facility]) Chronic kidney disease, stage 3a (HCC) ([facility]) Morbid (severe) obesity due to excess calories ([facility]) Body mass index (BMI) 45.0-49.9, adult ([facility]) Type 2 diabetes mellitus with diabetic neuropathy, with long-term current use of insulin ([facility]) Unspecified chronic bronchitis ([facility]) Unspecified chronic bronchitis CAD in [place] ([facility]) PAD (peripheral artery disease) ([facility]) Unspecified peripheral vascular disease Primary hypertension ([facility]) Unspecified essential hypertension Bilateral lower extremity edema Age-related osteoporosis without current pathological fracture ([facility]) Class 3 severe obesity due to excess calories with serious comorbidity and body mass index (BMI) of 45.0 to 49.9 in adult ([facility]) Type 2 diabetes mellitus with retinopathy of both eyes, with long-term current use of insulin, macular edema presence unspecified, unspecified retinopathy severity ([facility]) Type 2 diabetes mellitus with insulin therapy ([facility] Anxiety and depression ([facility]) Encounter for screening mammogram for malignant neoplasm of breast Tobacco user Tobacco use disorder Mixed hyperlipidemia ([facility]) Mixed hyperlipidemia Environmental and seasonal allergies Gastroesophageal reflux disease without esophagitis Esophageal reflux Factor V Leiden ([facility] Primary hypercoagulable state documented in this encounter [facility] HealthcareEvaluation note* Diagnosis Encounter for other preprocedural examination [facility]* Diagnosis Encounter for annual wellness visit (AWV) in Medicare patient- Primary Type 2 diabetes mellitus with diabetic neuropathy, with long-term current use of insulin ([facility]) CAD in [place] ([facility]) Tobacco user Tobacco use disorder Malignant neoplasm of kidney, unspecified laterality ([facility]) Type 2 diabetes mellitus with insulin therapy ([facility]) Routine general medical examination at [place] [facility] facility Routine general medical examination at a [place] [facility] care [place] Type 2 diabetes mellitus with insulin therapy ([facility])- Primary CAD in [place] ([facility]) Type 2 diabetes mellitus with diabetic neuropathy, with long-term current use of insulin ([facility]) Type 2 diabetes mellitus with diabetic neuropathy, unspecified ([facility]) Diabetic neuropathy, painful ([facility]) Type II or unspecified type diabetes mellitus with neurological manifestations, not stated as uncontrolled Anxiety and depression ([facility]) Anemia, unspecified type Gastroesophageal reflux disease without esophagitis Esophageal reflux Hypertriglyceridemia ([facility]) Pure hyperglyceridemia Bilateral lower extremity edema Chronic bronchitis, unspecified chronic bronchitis type ([facility]) Class 3 severe obesity with serious comorbidity and body mass index (BMI) of 45.0 to 49.9 in adult, unspecified obesity type ([facility]) Factor V Leiden ([facility]) Primary hypercoagulable state Tobacco user Tobacco use disorder ELENA (obstructive sleep apnea) Obstructive sleep apnea (adult) (pediatric) Environmental and seasonal allergies Type 2 diabetes mellitus with insulin therapy ([facility])- Primary Peripheral vascular disease, unspecified ([facility]) Peripheral vascular disease, unspecified Atherosclerosis of aorta ([facility]) Atherosclerosis of aorta Diabetic neuropathy, painful ([facility]) Type II or unspecified type diabetes mellitus with neurological manifestations, not stated as uncontrolled Type 2 diabetes mellitus with diabetic neuropathy, with long-term current use of insulin ([facility]) CAD in [place] ([facility]) Bilateral lower extremity edema Class 3 severe obesity with serious comorbidity and body mass index (BMI) of 45.0 to 49.9 in adult, unspecified obesity type ([facility]) Type 2 diabetes mellitus with diabetic neuropathy, with long-term current use of insulin ([facility])- Primary Type 2 diabetes mellitus with diabetic chronic kidney disease ([facility]) Chronic kidney disease, stage 3a (HCC) ([facility]) ELENA (obstructive sleep apnea) Obstructive sleep apnea (adult) (pediatric) PAD (peripheral artery disease) ([facility]) Unspecified peripheral vascular disease CAD in [place] ([facility] Gastroesophageal reflux disease without esophagitis Esophageal reflux Primary hypertension ([facility]) Unspecified essential hypertension Type 2 diabetes mellitus with insulin therapy ([facility]) Class 3 severe obesity with serious comorbidity and body mass index (BMI) of 45.0 to 49.9 in adult, unspecified obesity type ([facility]) Type 2 diabetes mellitus with retinopathy of both eyes, with long-term current use of insulin, macular edema presence unspecified, unspecified retinopathy severity ([facility]) Factor V Leiden ([facility] Primary hypercoagulable state Encounter for screening mammogram for malignant neoplasm of breast Encounter for annual wellness visit (AWV) in Medicare patient- Primary Malignant neoplasm of unspecified kidney, except renal pelvis ([facility]) Type 2 diabetes mellitus with diabetic chronic kidney disease ([facility]) Chronic kidney disease, stage 3a (HCC) ([facility]) Morbid (severe) obesity due to excess calories ([facility]) Body mass index (BMI) 45.0-49.9, adult ([facility]) Type 2 diabetes mellitus with diabetic neuropathy, with long-term current use of insulin ([facility]) Unspecified chronic bronchitis ([facility]) Unspecified chronic bronchitis CAD in [place] ([facility]) PAD (peripheral artery disease) ([facility]) Unspecified peripheral vascular disease Primary hypertension ([facility]) Unspecified essential hypertension Bilateral lower extremity edema Age-related osteoporosis without current pathological fracture ([facility]) Class 3 severe obesity due to excess calories with serious comorbidity and body mass index (BMI) of 45.0 to 49.9 in adult ([facility]) Type 2 diabetes mellitus with retinopathy of both eyes, with long-term current use of insulin, macular edema presence unspecified, unspecified retinopathy severity ([facility]) Type 2 diabetes mellitus with insulin therapy ([facility] Anxiety and depression ([facility]) Encounter for screening mammogram for malignant neoplasm of breast Tobacco user Tobacco use disorder Mixed hyperlipidemia ([facility]) Mixed hyperlipidemia Environmental and seasonal allergies Gastroesophageal reflux disease without esophagitis Esophageal reflux Factor V Leiden ([facility]) Primary hypercoagulable state Pre-operative clearance Unspecified pre-operative examination Preop examination- Primary Unspecified pre-operative examination Complex tear of medial meniscus of right knee, unspecified whether old or current tear, subsequent encounter documented [facility] this encounter [facility] Narrative No data available for this section [facility] InstructionsNot on filedocumented in this encounter [facility] No data available for this section [facility] reason for referral (narrative)* Diagnostic Procedure Only (Routine) - Pending Review Specialty Diagnoses / Procedures Referred By April valdez Referred To Contact XR IMAGING Diagnoses Closed fracture of left ankle, initial encounter Procedures XR ANKLE GENERAL 3V AP/LAT/OBL LEFT RADEX ANKLE COMPLETE MINIMUM 3 VIEWS Lilly Tony MD [address] [place] [address] Xr Imaging Referral ID Status Reason Start Date Expiration Date Visits Requested Visits Authorized [id number] Pending Review Auto-Generat ed Referral 10/12/2021 11/11/2022 1 1 [facility] for referral (narrative) Referred by: Jluis ROBLEDO MD [facility] reason for referral (narrative)* Consultation (Routine) - Pending Review Specialty Diagnoses / Procedures Referred By April valdez Referred To Contact Neurology Diagnoses Dizziness and giddiness Procedures [place] OFFICE/OUTPATIENT NEW HIGH MDM 60 MINUTES Jenny Borrego NP [address] [place] [address] Yas Trujillo NP [address] [place] [address] Referral ID Status Reason Start Date Expiration Date Visits Requested Visits Authorized [id number] Pending Review Specialty Services Required 11/24/2023 05/22/2024 1 1 [facility] Summary Purpose Family History No Family History Records Found Relationship Condition Age at Onset Recorded Date/T moi Not Specified Myocardial infarction Unknown Diabetes mellitus Unknown Hypertension Unknown sister Malignant neoplasm of lung Unknown father Diabetes mellitus Unknown Transient ischemic attack Unknown Advance Directives No Advanced Directives Records FoundDocuments on File Type Date Recorded 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 Advance Directive(s) 09/12/2021 2:13 PM [...] W & W/O CONTRAST Lex Pickens MD [address] [place] [address] [facility] [place] [address] Referral ID Status Reason Start Date Expiration Date Visits Requested Visits Authorized [id number] Pending Review Auto-Generat ed Referral 10/16/2022 11/15/2023 1 1 Specialty Diagnoses / Procedures Referred By April valdez Referred To Contact CT IMAGING Diagnoses Other specified disorders of kidney and ureter Procedures CT KIDNEY WO/W IVCON CT ABDOMEN W & W/O CONTRAST Judson Quiroga MD [address] [place] [address] Ct Imaging Referral ID Status Reason Start Date Expiration Date V isits Requested Visits Authorized [id number] Closed Auto-Generate d Referral 03/16/2022 04/15/2023 1 1 Chief Complaint and Reason for Visit Chief Complaint Anemia, Lower Hemogl obin Chief Complaint Anemia E11.40 Z79.4 Reason for Visit Iron deficiency anem ia Additional Source Comments INFORMATION SOURCE (unrecogn ized section and content) DATE CREATED AUTHOR 12/25/2020 [facility] DATE CREATED AUTHOR AUTHOR'S ORGANIZ ATION 07/25/2021 [facility] DATE CREATED AUTHOR AUTHOR'S ORGANIZ ATION 11/22/2021 [facility] DATE CREATED AUTHOR AUTHOR'S ORGANIZ ATION 03/05/2022 [facility] DATE CREATED AUTHOR AUTHOR'S ORGANIZ ATION 06/25/2022 [facility] DATE CREATED AUTHOR AUTHOR'S ORGANIZ ATION 06/16/2023 [facility] DATE CREATED AUTHOR AUTHOR'S ORGANIZ ATION 08/08/2023 [facility] DATE CREATED AUTHOR AUTHOR'S ORGANIZ ATION 04/29/2024 [facility] DATE CREATED AUTHOR AUTHOR'S ORGANIZ ATION 05/02/2024 [facility] DATE CREATED AUTHOR AUTHOR'S ORGANIZ ATION 05/02/2024 [facility] Source Comments (unrecognize d section and content) In the event this informatio n is protected by the Federal Confidentiality of Alcohol and Drug Abuse Patient Records regulations: The Federal rules restrict any use of the information to criminally investigate or prosecute any alcohol or drug abuse patient.[facility] the event this information is protected by the Federal Confidentiality of Alcohol and Drug Abuse Patient Records regulations: The Federal rules restrict any use of the information to criminally investigate or prosecute any alcohol or drug abuse patient.[facility] the event this information is protected by the Federal Confidentiality of Alcohol and Drug Abuse Patient Records regulations: The Federal rules restrict any use of the information to criminally investigate or prosecute any alcohol or drug abuse patient.[facility] the event this information is protected by the Federal Confidentiality of Alcohol and Drug Abuse Patient Records regulations: The Federal rules restrict any use of the information to criminally investigate or prosecute any alcohol or drug abuse patient.[facility] the event this information is protected by the Federal Confidentiality of Alcohol and Drug Abuse Patient Records regulations: The Federal rules restrict any use of the information to criminally investigate or prosecute any alcohol or drug abuse patient.[facility] the event this information is protected by the Federal Confidentiality of Alcohol and Drug Abuse Patient Records regulations: The Federal rules restrict any use of the information to criminally investigate or prosecute any alcohol or drug abuse patient.[facility] the event this information is protected by the Federal Confidentiality of Alcohol and Drug Abuse Patient Records regulations: The Federal rules restrict any use of the information to criminally investigate or prosecute any alcohol or drug abuse patient.[facility] the event this information is protected by the Federal Confidentiality of Alcohol and Drug Abuse Patient Records regulations: The Federal rules restrict any use of the information to criminally investigate or prosecute any alcohol or drug abuse patient.[facility] the event this information is protected by the Federal Confidentiality of Alcohol and Drug Abuse Patient Records regulations: The Federal rules restrict any use of the information to criminally investigate or prosecute any alcohol or drug abuse patient.[facility] the event this information is protected by the Federal Confidentiality of Alcohol and Drug Abuse Patient Records regulations: The Federal rules restrict any use of the information to criminally investigate or prosecute any alcohol or drug abuse patient.[facility] the event this information is protected by the Federal Confidentiality of Alcohol and Drug Abuse Patient Records regulations: The Federal rules restrict any use of the information to criminally investigate or prosecute any alcohol or drug abuse patient.[facility] the event this information is protected by the Federal Confidentiality of Alcohol and Drug Abuse Patient Records regulations: The Federal rules restrict any use of the information to criminally investigate or prosecute any alcohol or drug abuse patient.[facility] Hospital[facility] the event this information is protected by the Federal Confidentiality of Alcohol and Drug Abuse Patient Records regulations: The Federal rules restrict any use of the information to criminally investigate or prosecute any alcohol or drug abuse patient.[facility] the event this information is protected by the Federal Confidentiality of Alcohol and Drug Abuse Patient Records regulations: The Federal rules restrict any use of the information to criminally investigate or prosecute any alcohol or drug abuse patient.[facility] Reason for Visit (unrecogniz ed [...] W & W/O CONTRAST Lex Pickens MD [address] [place] [address] Ct [facility] [place] [address] Referral ID Status Reason Start Date Expiration Date V isits Requested Visits Authorized [id number] Closed Auto-Generate d Referral 10/16/2022 11/15/2023 [address] Specialty Diagnoses / Procedures Referred By Contac t Referred To Contact CT IMAGING Diagnoses Other specified disorders of kidney and ureter Procedures CT KIDNEY WO/W IVCON CT ABDOMEN W & W/O CONTRAST Lex Pickens MD [address] [place] [address] Ct Imaging [place] [address] Referral ID Status Reason Start Date Expiration Date V isits Requested Visits Authorized [id number] Closed Auto-Generate d Referral 10/07/2022 05/09/2023 1 1 Specialty Diagnoses / Procedures Referred By Contac t Referred To Contact CT IMAGING Diagnoses Other specified disorders of kidney and ureter Procedures CT KIDNEY WO/W IVCON CT ABDOMEN W & W/O CONTRAST Judson Quiroga MD [address] [place] [address] Ct Imaging [place] [address] Referral ID Status Reason Start Date Expiration Date V isits Requested Visits Authorized [id number] Closed Auto-Generate d Referral 03/16/2022 04/15/2023 1 1 Reason Comments Radio Gen RMP Reason Comments Pain Reason Comments Med Refill Reason Comments Dizziness Specialty Diagnoses / Procedures Referred By Contac t Referred To Contact Neurology Diagnoses Dizziness and giddiness Procedures [place] OFFICE/OUTPATIENT NEW HIGH MDM 60 MINUTES Jenny Borrego NP [address] [place] [address] Phone: tel: fax: Michoacano Joseph MD [address] [place] [address] Phone: tel: fax: Referral ID Status Reason Start Date Expiration Date V isits Requested Visits Authorized [id number] Closed Consult and Treat 11/24/2023 05/22/2024 1 1 Reason Comments Follow-up Reason Comments Pain Reason Onset Date Comments PT Initial Eval 02/27/2024 fu 03/01/2024 Tried patient, t ried , and was only able to lm w/ daughter. 3rd attempt No responce 03/02/2024 Reason Comments Medicare Annual Wellness Visit Initial Reason Comments Pre-op Exam Care Teams (unrecognized sec tion and content) 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 Relationship Specialty Start Date End Date Mejia Dawit Vargasmarquise Roth PCP - General Family Practice 10/24/14 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 Relationship Specialty Start Date End Date Mejia Dawit Vargasmarquise Roth PCP - General Family Practice 10/24/14 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 Relationship Specialty Start Date End Date Mejia Dawit Vargasmarquise Roth PCP - General Family Practice 10/24/14 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 Relationship Specialty Start Date End Date Mejia Dawit Vargasmarquise Roth PCP - General Family Medicine 10/24/14 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 Relationship Specialty Start Date End Date Mejia Dawit Vargasmarquise Roth PCP - General Family Medicine 10/24/14 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 Relationship Specialty Start Date End Date Mejia Dawit Vargasmarquise Roth PCP - General Family Medicine 10/24/14 Team Status: Active Member Role Status Dates Dawit Ba , Primary Care Provider Active Team Status: Inactive Member Role Status Dates Dawit Ba , Primary Care Provider Active Bebo Sims DO Attending Provider Active 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 Relationship Specialty Start Date End Date Dawit Ba Sr. PCP - General Family Medicine 10/24/14 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 Relationship Specialty Start Date End Date Dawit Ba Sr. PCP - General Family Medicine 10/24/14 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 Relationship Specialty Start Date End Date Ludin Blanchard MD PCP - General Family Medicine 10/06/22 Jenny Borrego NP [address] [place] [address] Nurse Practitioner Family Medicine 12/27/22 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 Relationship Specialty Start Date End Date Ludin Blanchard MD PCP - General Family Medicine 10/06/22 Jenny Borrego NP [address] [place] [address] Nurse Practitioner Family Medicine 12/27/22 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 Relationship Specialty Start Date End Date Ludin Blanchard MD PCP - General Family Medicine 10/06/22 Jenny Borrego NP [address] [place] [address] Nurse Practitioner Family Medicine 12/27/22 Team Status: [...] April 13, 2023 End: April 13, 2023 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 Relationship Specialty Start Date End Date Dawit Ba Sr., DO PCP - General Family Medicine 10/24/14 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 Relationship Specialty Start Date End Date Dawit Ba Sr., DO PCP - General Family Medicine 10/24/14 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 Relationship Specialty Start Date End Date Dawit Ba Sr., DO PCP - General Family Medicine 10/24/14 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 Relationship Specialty Start Date End Date Dawit Ba Sr., DO PCP - General Family Medicine 10/24/14 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 Relationship Specialty Start Date End Date Dawit Ba Sr., DO PCP - General Family Medicine 10/24/14 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 Relationship Specialty Start Date End Date Dawit Ba Sr., DO PCP - General Family Medicine 10/24/14 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 Relationship Specialty Start Date End Date Ludin Blanchard MD [address] [place] [address] PCP - General Family Medicine 04/28/23 Jenny Borrego NP [address] [place] [address] Nurse Practitioner Family Medicine 12/27/22 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 Relationship Specialty Start Date End Date Ludin Blanchard MD [address] [place] [address] PCP - General Family Medicine 04/28/23 Jenny Borrego NP [address] [place] [address] Nurse Practitioner Family Medicine 12/27/22 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 Relationship Specialty Start Date End Date Ludin Blanchard MD [address] [place] [address] PCP - General Family Medicine 04/28/23 Jenny Borrego NP [address] [place] [address] Nurse Practitioner Family Medicine 12/27/22 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 Relationship Specialty Start Date End Date Ludin Blanchard MD [address] [place] [address] PCP - General Family Medicine 04/28/23 Jenny Borrego NP [address] [place] [address] Nurse Practitioner Family Medicine 12/27/22 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 Relationship Specialty Start Date End Date Luidn Blanchard MD [address] [place] [address] PCP - General Family Medicine 04/28/23 Jenny Borrego NP [address] [place] [address] Nurse Practitioner Family Medicine 12/27/22 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 Relationship Specialty Start Date End Date Ludin Blanchard MD [address] [place] [address] PCP - General Family Medicine 04/28/23 Jenny Borrego NP [address] [place] [address] Nurse Practitioner Family Medicine 12/27/22 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 Relationship Specialty Start Date End Date Ludin Blanchard MD [address] [place] [address] PCP - General Family Medicine 04/28/23 Jenny Borrego NP [address] [place] [address] Nurse Practitioner Family Medicine 12/27/22 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 Relationship Specialty Start Date End Date Ludin Blanchard MD [address] [place] [address] PCP - General Family Medicine 04/28/23 Jenny Borrego NP [address] [place] [address] Nurse Practitioner Family Medicine 12/27/22 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 Relationship Specialty Start Date End Date Ludin Blanchard MD [address] [place] [address] PCP - General Family Medicine 04/28/23 Jenny Borrego NP [address] [place] [address] Nurse Practitioner Family Medicine 12/27/22 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 Relationship Specialty Start Date End Date Ludin Blanchard MD [address] [place] [address] PCP - General Family Medicine 04/28/23 Jenny Borrego NP [address] [place] [address] Nurse Practitioner Family Medicine 12/27/22 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 Relationship Specialty Start Date End Date Ludin Blanchard MD [address] [place] [address] PCP - General Family Medicine 04/28/23 Jenny Borrego NP [address] [place] [address] Nurse Practitioner Family Medicine 12/27/22 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 Relationship Specialty Start Date End Date Ludin Blanchard MD [address] [place] [address] PCP - General Family Medicine 04/28/23 Jenny Borrego NP [address] [place] [address] Nurse Practitioner Family Medicine 12/27/22 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 Relationship Specialty Start Date End Date Ludin Blanchard MD [address] [place] [address] PCP - General Family Medicine 04/28/23 Jenny Borrego NP [address] [place] [address] Nurse Practitioner Family Medicine 12/27/22 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 Relationship Specialty Start Date End Date Ludin Blanchard MD [address] [place] [address] PCP - General Family Medicine 04/28/23 Jenny Borrego NP [address] [place] [address] Nurse Practitioner Family Medicine 12/27/22 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 Relationship Specialty Start Date End Date Ludin Blanchard MD [address] [place] [address] PCP - General Family Medicine 04/28/23 Jenny Borrego NP [address] [place] [address] Nurse Practitioner Family Medicine 12/27/22 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 Relationship Specialty Start Date End Date Ludin Blanchard MD [address] [place] [address] PCP - General Family Medicine 04/28/23 Jenny Borrego NP [address] [place] [address] Nurse Practitioner Family Medicine 12/27/22 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 Relationship Specialty Start Date End Date Ludin Blanchard MD [address] [place] [address] PCP - General Family Medicine 04/28/23 Jenny Borrego NP [address] [place] [address] Nurse Practitioner Family Medicine 12/27/22 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 Relationship Specialty Start Date End Date Ludin Blanchard MD [address] [place] [address] PCP - General Family Medicine 04/28/23 Jenny Borrego NP [address] [place] [address] Nurse Practitioner Family Medicine 12/27/22 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 Relationship Specialty Start Date End Date Ludin Blanchard MD [address] [place] [address] PCP - General Family Medicine 04/28/23 Jenny Borrego NP [address] [place] [address] Nurse Practitioner Family Medicine 12/27/22 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 Relationship Specialty Start Date End Date Ludin Blanchard MD [address] [place] [address] PCP - General Family Medicine 04/28/23 Jenny Borrego NP [address] [place] [address] Nurse Practitioner Family Medicine 12/27/22 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 Relationship Specialty Start Date End Date Ludin Blanchard MD [address] [place] [address] PCP - General Family Medicine 04/28/23 Jenny Borrego NP [address] [place] [address] Nurse Practitioner Family Medicine 12/27/22 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 Relationship Specialty Start Date End Date Ludin Blanchard MD [address] [place] [address] PCP - General Family Medicine 04/28/23 Jenny Borrego NP [address] [place] [address] Nurse Practitioner Family Medicine 12/27/22 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 Relationship Specialty Start Date End Date Ludin Blanchard MD [address] [place] [address] PCP - General Family Medicine 04/28/23 Jenny Borrego NP [address] [place] [address] Nurse Practitioner Family Medicine 12/27/22 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 Relationship Specialty Start Date End Date Ludin Blanchard MD [address] [place] [address] PCP - General Family Medicine 04/28/23 Jenny Borrego NP [address] [place] [address] Nurse Practitioner Family Medicine 12/27/22 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 Relationship Specialty Start Date End Date Ludin Blanchard MD [address] [place] [address] PCP - General Family Medicine 04/28/23 Jenny Borrego NP [address] [place] [address] Nurse Practitioner Family Medicine 12/27/22 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 Relationship Specialty Start Date End Date Ludin Blanchard MD [address] [place] [address] PCP - General Family Medicine 04/28/23 Jenny Borrego NP [address] [place] [address] Nurse Practitioner Family Medicine 12/27/22 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 Relationship Specialty Start Date End Date Ludin Blanchard MD [address] [place] [address] PCP - General Family Medicine 04/28/23 Jenny Borrego NP [address] [place] [address] Nurse Practitioner Family Medicine 12/27/22 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 Relationship Specialty Start Date End Date Ludin Blanchard MD [address] [place] [address] PCP - General Family Medicine 04/28/23 Jenny Borrego NP [address] [place] [address] Nurse Practitioner Family Medicine 12/27/22 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 Relationship 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 Start Date End Date Ludin Blanchard MD [address] [place] [address] PCP - General Family Medicine 04/28/23 Jenny Borrego NP [address] [place] [address] Nurse Practitioner Family Medicine 12/27/22 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 Relationship 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 Start Date End Date Ludin Blanchard MD [address] [place] [address] PCP - General Family Medicine 04/28/23 Jenny Borrego NP [address] [place] [address] Nurse Practitioner Family Medicine 12/27/22 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 Relationship 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 Start Date End Date Ludin Blanchard MD [address] [place] [address] PCP - General Family Medicine 04/28/23 Jenny Borrego NP [address] [place] [address] Nurse Practitioner Family Medicine 12/27/22 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 Relationship 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 Start Date End Date Dawit Ba DO PCP - General 08/11/17 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 Relationship Specialty Start Date End Date Ludin Blanchard MD [address] [place] [address] PCP - General Family Medicine 04/28/23 Jenny Borrego NP [address] [place] [address] Nurse Practitioner Family Medicine 12/27/22 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 [facility]. provides no warranty or guarantee of the accuracy or completeness of information in this document.
[2024-05-03 10:25] LABS: Anion Gap 13.6; BUN Creatinine Ratio 11.3; Calcium 8.9 mg/dL (8.5-10.1); Carbon Dioxide 27.8 mmol/L (21.0-32.0); Chloride 103 mmol/L (98-107); Estimated GFR (African America 50 (>=60 mL/min/1.73m^2); Estimated GFR (Non-African Ame 41 (>=60 mL/min/1.73m^2); Glucose 269 mg/dL (74-106); Potassium 5.4 mmol/L (3.5-5.1); Sodium 139 mmol/L (136-145)
== END 2024-05-03 09:46 | disposition home or self-care (01) ==
LOC: MAMMO 09:46
PROVIDERS: PCP Nurse Practitioner; Visit Provider Nurse Practitioner
DX: Z12.31 Encounter for screening mammogram for malignant neoplasm of breast (principal); M81.0 Age-related osteoporosis without current pathological fracture; I10 Essential (primary) hypertension; E11.9 Type 2 diabetes mellitus without complications; Z79.4 Long term (current) use of insulin; Z80.1 Family history of malignant neoplasm of trachea, bronchus and lung; M85.80 Other specified disorders of bone density and structure, unspecified site
CPT/HCPCS: 36415; 77063; 77067; 77080; 80048

== ENCOUNTER 2024-05-07 11:22 | Outpatient (OUT) | payer MEDICARE, SELFPAY ==
--- OUTSIDE RECORDS SUMMARY | 2024-05-07 11:43 | XMS_ITS | CCD ---
Author Organization [facility] Care Team Providers Care Director Of Food And Nutrition Name Role Phone Dawit Ba Primary Care Physician Hobbs Sr., Dawit Aviles Primary Care Provider Hobbs Sr., Dawit Aviles Primary Care Provider [place] SR, DAWIT AVILES Primary Care Unavai lable HOUSE SR, DAWIT MADI Primary Care Unavamir lable LILLY TONY Attending Unavailable TONY, LILLY Attending Unavailable HOUSE SR, DAWIT [facility] Care Unavai lable HOUSE SR, DAWIT [facility] [place] Primary Care UnavaLILLY Phan Attending Unavailable MD Jluis ROBLEDO Attending Unavailable House, Dawit Hong Referring Unavail able MD Jluis ROBLEDO Attending Unavailable Hobbs Sr., Dawit Aviles Primary Care Provider DO Dawit Ba Primary Care Provider DO Bebo iSms Attending Provider [phone] HOUSE, DR PRITCHETT Attending Unavailable [place], DR PRITCHETT Consulting Unavailable [place], DR PRITCHETT Primary Care Unavailable [place], DR PRITCHETT Admitting Unavailable [place], DR PRITCHETT Attending Unavailable HOUSE, DR PRITCHETT Consulting Unavailable [place], DR PRITCHETT Primary Care Unavailable HOUSE, DR PRITCHETT Admitting Unavailable HOUSE, DR PRITCHETT Primary Care Unavailable VENKAT ., DR KING Attending Unavailable ROBLEDO ., DR KING Consulting Unavailable ROBLEDO ., DR KING Admitting [facility]available [facility]O Jacinto Consulting Unavailable [place], DR PRITCHETT Attending Unavailable HOUSE, DR PRITCHETT Primary Care Unavailable [place], DR PRITCHETT Admitting Unavailable Ludin Blanchard MD Primary Care Provider Salima APRON CLEANER, Jenny Unavailable DO Dawit Ba Referring Provider CJ Brown Attending Provider Jenny Borrego Primary Care Provider [phone] Jenny Borrego Attending Provider Hobbs Sr., Dawit US Primary Care Prov ider Hobbs Sr., DO Dawit Gely Primary Care Provider LEX PICKENS Attending Unavailable HOUSE SR, DAWIT Hong Primary Care Unavailable LEX PICKENS Referring Unavailable HOUSE SR, DAWIT Gely Primary Care Unavailable FRIDA, LEX Ortiz Attending Unavailable HOUSE SR, DAWIT Gely Primary Care Unavailable LEX PICKENS Referring Unavailable HOUSE SR, DAWIT Hong Primary Care Unavailable Joanne Brown Attending Unavail able Jenny Borrego Primary Care Unavailable Dawit Ba Referring Unavailable Joanne Brown Admitting Unavail able Aichholmeron APRON CLEANER, Jenny Unavailable Ludin Blanchard MD Primary Care Provider Hobbs Dawit US Primary Care Provider MALIK BENAVIDES Admitting Unavailable MOUKARBEL, MALIK Attending Unavailable MOUKARBEL, MALIK Attending Unavailable MOUKARBEL, MALIK Attending Unavailable MOUKARBELMALIK Attending Unavailable JR. BEAL GEORGE C Attending Unavaila ble AICHHOLZ, JENNY Attending Unavailable DORI WESLEY Attending Unavailable AICHHOLJENNY Harrington Attending Unavailable SONAMLISETTE Attending Unavailable AICHHOLZ, JENNY Attending Unavailable SONAMLISETTE Attending Unavailable KENDELL VIDES Attending Unavailable AICHHOLZ, JENNY Referring Unavailable SONAM, LISETTE Tijerina Attending Unavailable AICHHOLZ, JENNY Attending Unavailable KENDELL VIDES Referring Unavailable APLINGDEONNA Attending Unavailable APLING, DEONNA Mccray Referring Unavailable APLING, DEONNA Mccray Referring Unavailable DORI WESLEY Attending Unavailable DORI WESLEY Referring Unavailable JR. BEAL GEORGE C Attending Unavaila ble Aichholmeron STEEL MANAGER-Jenny MATOS Primary Care Provider DORI WESLEY Referring Unavailable JENNY BORREGO Primary Care Unavailable GIL RUSSO Referring Unavailable AICHHOLZ, JENNY Ortiz Primary Care Unavailable GIL RUSSO Referring Unavailable AICHHOLZZACKARYA J Primary Care Unavailable GIL RUSSO Attending Unavailable GIL RUSSO Referring Unavailable JENNY BORREGO Primary Care Unavailable Allergies Allergy Classification Reported Allergen(s) Allergy Type Date of Onset Reaction(s) Facility (1 source) Gluten Drug allergy (disorder) [facility] Repository (1 source) Wheat preparation Drug Allergy [facility] Repository (1 source) Misc-Food; Translations: [Misc-Food] Food allergy (disorder) [facility] Rep[facility] Medications Current Medications Medication Drug [...] 04/15/2023 Active apixaban 2.5 mg oral tablet (9 sources) Factor Xa Inhibitor Start: 04-17-19 End: 07-17-19 take 1 tablet by mouth in the morning, then take 1 tablet by mouth at bedtime apixaban (ELIQUIS) 2.5 mg tablet Take 1 tablet (2.5 mg total) by mouth in the morning and 1 tablet (2.5 mg total) before bedtime. 04/17/2024 07/16/2024 Active aspirin 81 mg chewable tablet (20 sources) Platelet Aggregation Inhibitor, Nonsteroidal Anti-inflammatory Drug Start: 09-21-19 aspirin 81 mg chewable tablet Chew 1 tablet (81 mg total) and swallow in the morning. 09/21/2023 Active Start: 07-27-2021 take 1 mg by mouth once daily aspirin 81 mg Oral EC Tab mg tab(s), Oral, Daily, Refills(s) 0 Start Date: 07/27/21 Status: Ordered Start: 07-27-2021 take 1 mg by mouth once daily aspirin 81 mg Oral EC Tab mg tab(s), Oral, Daily, Refills(s) 0 Start Date: 07/27/21 Status: Ordered atorvastatin 80 mg oral tablet (20 sources) [...] once daily. Centrum Silver (2 sources) Start: 2 Centrum Silver Oral, Daily, Refill(s) 0 Start Date: 07/27/21 Status: Ordered cetirizine hydrochloride 10 mg oral tablet (20 sources) Histamine-1 Receptor Antagonist Start: End: 5 take 1 tablet by mouth once daily [...] tablet by mouth in the morning dapagliflozin propanediol (FARXIGA) 10 mg tablet Take 1 tablet (10 mg total) by mouth in the morning. 04/17/2024 07/16/2024 Active Start: 06-23-2023 take 1 [...] PO Twice daily June 01, 2022 11:00pm End: 05-03-2024 take 1 tablet by mouth three times daily diclofenac (CATAFLAM) 50 mg tablet Take 1 tablet (50 mg total) by mouth 3 (three) times a day. 05/03/2024 Discontinued End: 12-14-2023 Diclofenac 18 MG capsule Dic [...] () Start: 03-01-2023 take 1 capsule by [facility] once daily in the morning DULoxetine (Cymbalta) [...] End: 06-09-2024 take 1 tablet by mouth in the morning ferrous sulfate 325 (65 FE) MG tablet Take 1 tablet (325 mg total) by mouth in the morning. 03/11/2024 06/09/2024 Active Start: 06-02-2022 take 325 mg by mouth once ganesh y Ferrous Sulfate Active 325 MG PO Daily June 01, 2022 11:00pm Luz (18 sources) Histamine-1 Receptor Antagonist Start: 07-27-2021 Luz Oral, Refill s(s) 0 Start Date: 07/27/21 Status: Ordered take 1 tablet by tyrese th in the morning fexofenadine (LUZ) 180 mg tablet Take 1 tablet (180 mg total) by mouth in the morning. Active End: 03-24-2023 fexofenadine (Luz Allerg y) [...] cap. 48 g 1 04/17/2024 07/16/2024 Active folic acid 1 mg oral tablet (20 sources) Start: 06-08-19 take 1 tablet by mouth in the morning folic acid (FOLVITE) 1 mg tablet Take 1 tablet (1 mg total) by mouth in the morning. 06/08/2023 Active furosemide 40 mg oral tablet (20 sources) Loop Diuretic Start: 07-28-19 End: 08-02-19 take 1 tablet by mouth once daily furosemide (Lasix) 40 MG tablet Indications: Bilateral lower extremity edema Take 1 tablet (40 mg) by mouth Daily 90 tablet 1 05/03/2024 08/01/2024 Active Comment on above: furosemide 40 mg [...] Start: 07-27-2021 take 1 capsule by mo uth twice daily gabapentin 300 mg Cap 300 [...] sources) Insulin Analog Start: 05-17-2023 End: 06-09-2024 NovoLOG Mix 70-30FlexPen U-100 100 unit/mL (70-30) insulin pen Inject 75 Units under the skin in the morning and 75 Units in the evening. Inject before meals. 03/11/2024 06/09/2024 Active Start: 06-02-2022 Insulin Asp [...] four times daily. 24 hr metoprolol succinate 50 mg extended release oral tablet (20 sources) beta-Adrenergic Zhao Start: 12-12-2023 take 1 tablet by mouth every twenty-four hours in the morning metoprolol succinate XL (TOPROL XL) 50 mg 24 hr tablet Take 1 tablet (50 mg total) by mouth in the morning. 12/12/2023 Active Start: 01-19-2023 take 1 tablet by tyrese th every twenty-four hours in the morning metoprolol [...] Active Start: 07-27-2021 take 1 tablet by mouth once da master metoprolol succinate ER (TOPROL XL) 50 mg 24 hr tablet metoprolol succinate ER 50 mg tablet,extended release 24 hr TAKE 1 TABLET BY MOUTH EVERY DAY 07/27/2021 Active Start: 07-27-2021 take 1 tablet by mouth once da master metoprolol succinate ER (TOPROL XL) 50 mg 24 hr tablet metoprolol succinate ER 50 mg tablet,extended release 24 hr TAKE 1 TABLET BY MOUTH EVERY DAY 0 07/27/2021 Active Start: 07-27-2021 take 1 tablet by mouth once da master metoprolol succinate ER (TOPROL XL) 25 mg [...] TAKE 1 TABLET BY MOUTH EVERY DAY gaewkbpa-ltd-hhto-FA-lute in (CENTRUM SILVER WOMEN) 8 mg iron-400 mcg-300 mcg tab (13 sources) glerkiuv-gel-ehn n-FA-annel tein (CENTRUM SILVER WOMEN) 8 mg iron-400 mcg-300 mcg tab Active bxtdkazs-nyl-kuc n-FA-lutein (CENTRUM SILVER WOMEN) 8 mg iron-400 mcg-300 mcg tab MV with Bwf-Sgoihucp-Zpxpmm (CENTRUM SILVER) 0.4 mg-300 mcg- 250 mcg tab (13 sources) Start: 07-27-2021 take 1 tablet by mouth once MV with Tkf-Yzfhhahz-Moaiwm (CENTRUM SILVER) 0.4 mg-300 mcg- 250 mcg [...] End: 06-18-2024 take 1 capsule by mouth in the morning, then take 1 capsule by mouth at bedtime pregabalin (LYRICA) 100 mg capsule Take 1 capsule (100 mg total) by mouth in the morning and 1 capsule (100 mg total) before bedtime. 05/01/2024 Active Start: 06-23-2023 End: 12-10-2023 take 1 capsule by mouth every eight hours pregabalin (Lyrica) 100 MG capsule Indications: Type 2 diabetes mellitus with diabetic neuropathy, with long-term current use of insulin ([facility]) Take 1 capsule (100 mg) by mouth every 8 (eight) hours 90 capsule 2 11/10/2023 Active vitamin b12 0.05 mg oral tablet [...] MG tablet Indications: Atherosclerotic heart disease of [place] coronary artery without angina pectoris ([facility]) Take 1 tablet (75 mg) by mouth [...] tablet 0 02/15/2023 03/24/2023 Discontinued (Therapy completed) fluticasone / vilanterol (3 sources) Corticosteroid, beta2-Adrenergic Agonist End: 05-03-2024 fluticasone/vilanterol (BREO ELLIPTA INHL) Inhale. 05/03/2024 Discontinued fluticasone/raza nterol (BREO ELLIPTA INHL) Inhale. Active Insulin Aspart Prot & Aspart (NOVOLOG 70/30 FLEXPEN RELION SC) (20 sources) End: 01-16-2024 inject 75 [IU] by subcutaneous injection in [...] and 75 Units before bedtime. 0 Active insulin isophane, human 70 unt/ml / insulin, regular, human 30 unt/ml injectable suspension (5 sources) Insulin End: 05-03-2024 inject 0.5 mL by subcutaneous injection in the morning insulin NPH and regular human (HumuLIN 70-30,NovoLIN 70-30) 100 unit/mL (70-30) injection Inject 0.5 mL (50 Units total) under the skin in the morning and 0.5 mL (50 Units total) in the evening. Inject before meals. 75 units am/pm. 05/03/2024 Discontinued End: 03-24-2023 insulin NPH and regular danny n (HumuLIN 70-30,NovoLIN 70-30) 100 unit/mL (70-30) injection Inject 50 Units under the skin 2 (two) times a day before meals. Active iv contrast (will be provide d [...] (Centrum Silver 50+Women) tablet Orally 0 Active axmlkkbx-lnmk-YS-calcium &mi ns (THERAGRAN-M) 9 mg iron-400 mcg tablet (3 sources) End: 05-03-2024 qugpsoud-eeho-WE-calcium &mi ns (THERAGRAN-M) 9 mg iron-400 mcg tablet Take 1 tablet by mouth daily. 05/03/2024 Discontinued dtqemlmk-abom-SL -calcium &mins (THERAGRAN-M) 9 mg iron-400 mcg tablet Take 1 tablet by mouth daily. Active omeprazole 20 mg delayed release oral capsule (3 sources) Proton Pump Inhibitor End: 05-03-2024 take 1 capsule by mouth once daily omeprazole (PriLOSEC) 20 mg capsule Take 20 mg by mouth daily. 05/03/2024 Discontinued rivaroxaban 10 mg oral tablet (20 sources) [...] 01, 2022 11:00pm June 16, 2022 8:43am UNABLE TO FIND (3 sources) End: 05-03-2024 UNABLE TO FIND Med Name: black seed oil BID 05/03/2024 Discontinued UNABLE TO FIND M ed Name: black seed oil BID Active Problems Active Problems Problem Classification Problem Date Documented Da te Episodic/Chronic Anxiety disorders (20 sources) Mixed anxiety and depressive disorder; Translations: [Anxiety disorder, unspecified] Onset: 3 02-02-2023 Chronic Asthma (2 sources) Asthma; Translations: [Unspecified asthma, uncomplicated] Onset: 5 05-02-2024 Chronic Cancer of kidney and renal pelvis (20 sources) Malignant tumor of kidney; Translations: [Malignant neoplasm of unspecified kidney, except renal pelvis] Onset: 3 03-24-2023 Chronic Chronic kidney disease (20 sources) Chronic kidney disease stage 3A ; Translations: [Chronic kidney disease, stage 3a (HCC)] Onset: 4 01-16-2024 Chronic Chronic kidney disease (1 source) Chronic kidney disease; Translations: [Chronic kidney disease, stage 3a] Onset: 5 Chronic obstructive pulmonary disease and bronchiectasis (20 sources) Chronic bronchitis; Translations: [Unspecified chronic bronchitis] Onset: 3 Resolved: 5 02-02-2023 Chronic Coagulation and hemorrhagic disorders (20 sources) Factor V Leiden mutation; Translations: [Activated protein C resistance] Onset: 3 Chronic Coronary atherosclerosis and other heart disease (20 sources) Coronary arteriosclerosis; Translations: [Atherosclerotic heart disease of [place] coronary artery without angina pectoris] Onset: 0 [...] 4 01-16-2024 Chronic Fluid and electrolyte disorders (3 sources) Other disorders of electrolyte and fluid balance, not elsewhere classified; Translations: [Hyperkalemia] Onset: 3 05-03-2024 Episodic Fracture of lower limb (4 sources) [...] nutritional; endocrine; and metabolic disorders (11 sources) Body mass index 40+ - severely [...] of kidney] 10-16-2022 Episodic Residual codes; unclassified (20 sources) Bilateral lower limb edema; Translations: [Localized edema] Onset: 4 06-23-2023 Episodic Spondylosis; intervertebral disc disorders; other back problems (1 source) Other intervertebral disc degeneration, lumbosacral region; Translations: [OTH IV DISC DEGEN LUMBOSACRAL RGN] Onset: 2 Chronic Sprains and strains (10 sources) Rupture [...] nutritional; endocrine; and metabolic disorders (11 sources) Obesity caused by energy imbalance; Translations: [...] Onset: 02-02-2023 02-02-2023 Episodic Residual codes; unclassified (2 sources) [...] Test Name Value Interpretation Reference Range Facility ALL BASIC METABOLIC PANELon 05-03-2024 Anion gap [Moles/Vol] 13.6 mmol/L [facility] Calcium [Mass/Vol] 8.9 mg/dL 8.5 - 10. 1 mg/dL [facility] Chloride [Moles/Vol] 103 mmol/L 98 - 10 7 mmol/L [facility] CO2 [Moles/Vol] 27.8 mmol/L 21.0 - 32.0 mmol/L [facility] Creatinine [Mass/Vol] 1.33 mg/dL High 0.55 - 1.02 mg/dL [facility] GFR/1.73 sq M.predicted CKD-EPI (S/P/Bld) [Vol rate/Area] 50 Low >=60 mL/min/1.7 3m 2 [facility] Glucose [Mass/Vol] 269 mg/dL High 74 - 106 mg/dL [facility] Interpretation and review of laboratory results Abnormal [facility] Potassium [Moles/Vol] 5.4 mmol/L High 3.5 - 5.1 mmol/L [facility] Sodium [Moles/Vol] 139 mmol/L 136 - 145 mmol/L [facility] TBH EGFR-NON AF BHUTANESE 41 Low >=60 mL/min/1.7 3m 2 [facility] Urea nitrogen [Mass/Vol] 15 mg/dL 7.0 - 18.0 mg/dL [facility] Urea nitrogen/Creatinine [Mass ratio] 11.3 mg/mg [facility] APTTon 05-03-2024 aPTT Coag (PPP) [Time] 34 s [facility] Comment on above: NEW REFERENCE RANGE MM TOMOSYNTHESIS SCREENING B Ion 05-03-2024 [place] [address] Mammography Report Signed Patient: ELMER ELLIS MR#: [id number] : 1965 Acct:[id number] Age/Sex: 58 / F ADM Date: 05/03/24 Loc: MAMMO Attending Dr: Jenny Borrego NP Ordering Physician: Jenny Borrego NP Results: Date of Service: 05/03/24 Follow Up: Procedure(s): MM tomosynthesis screening BI Accession Number(s): [id number] cc: Jenny Borrego NP Patient Name: ELMER ELLIS MR#: [id number] : 1965 Exam Date: 05/03/2024 Ordering Doctor: CARLO Borrego CNP RADIOLOGY REPORT PROCEDURE: MM TOMOSYNTHESIS SCREENING BI COMPARISON: MM TOMOSYNTHESIS SCREENING BI, 11/19/2022. MG MAMM SHEEBA DIAG W CAD DIG, 04/13/2013. INDICATIONS: Screening Calculator Name NCI Breast Cancer Risk Assessment Tool 5 Year Breast Cancer Risk 1.10% Lifetime Breast Cancer Risk 6.30% Personal Breast Cancer No Personal Ovarian Cancer No Treatments None Family Cancers Sister with lung cancer at age 48. LOCATION: [facility] BREAST COMPOSITION: There are scattered areas of fibroglandular density. FINDINGS: DIAGNOSTIC CATEGORY 1--NEGATIVE. RIGHT BREAST: No significant suspicious finding. LEFT BREAST: No significant suspicious finding. RECOMMENDATIONS: ROUTINE MAMMOGRAM AND CLINICAL EVALUATION IN 12 MONTHS. PLEASE NOTE: A NORMAL MAMMOGRAM DOES NOT EXCLUDE THE POSSIBILITY OF BREAST CANCER. A CLINICALLY SUSPICIOUS PALPABLE LUMP SHOULD BE BIOPSIED. Dictated by: Vinnie Woody DO on 05/03/2024 at 12:30 Approved by: Vinnie Woody DO on 05/03/2024 at 12:32 Dictated By: Vinnie Woody M.D. Signed By: 05/03/24 1233 DD/ 1232 TD/TT: Systems Architect: [facility] Radiology, Junior mclean MD - 05/03/2024 [place] [address] Mammography Report Signed Patient: ELMER ELLIS MR#: [id number] : 1965 Acct:[id number] Age/Sex: 58 / F ADM Date: 05/03/24 Loc: MAMMO Attending Dr: Jenny Borrego NP Ordering Physician: Jenny Borrego NP Results: Date of Service: 05/03/24 Follow Up: Procedure(s): MM tomosynthesis screening BI Accession Number(s): [id number] cc: Jenny Borrego NP Patient Name: ELMER ELLIS MR#: [id number] : 1965 Exam Date: 05/03/2024 Ordering Doctor: CARLO Borrego CNP RADIOLOGY REPORT PROCEDURE: MM TOMOSYNTHESIS SCREENING BI COMPARISON: MM TOMOSYNTHESIS SCREENING BI, 11/19/2022. MG MAMM SHEEBA DIAG W CAD DIG, 04/13/2013. INDICATIONS: Screening Calculator Name NCI Breast Cancer Risk Assessment Tool 5 Year Breast Cancer Risk 1.10% Lifetime Breast Cancer Risk 6.30% Personal Breast Cancer No Personal Ovarian Cancer No Treatments None Family Cancers Sister with lung cancer at age 48. LOCATION: [facility] BREAST COMPOSITION: There are scattered areas of fibroglandular density. FINDINGS: DIAGNOSTIC CATEGORY 1--NEGATIVE. RIGHT BREAST: No significant suspicious finding. LEFT BREAST: No significant suspicious finding. RECOMMENDATIONS: ROUTINE MAMMOGRAM AND CLINICAL EVALUATION IN 12 MONTHS. PLEASE NOTE: A NORMAL MAMMOGRAM DOES NOT EXCLUDE THE POSSIBILITY OF BREAST CANCER. A CLINICALLY SUSPICIOUS PALPABLE LUMP SHOULD BE BIOPSIED. Dictated by: Vinnie Woody DO on 05/03/2024 at 12:30 Approved by: Vinnie Woody DO on 05/03/2024 at 12:32 Dictated By: Vinnie Woody M.D. Signed By: 05/03/24 1233 DD/ 1232 TD/TT: Systems Architect: [facility] Radiology Study observation (narrative) [facility] MM TOMOSYNTHESIS SCREENING B IOrdered By: Radiologist Radiology on 05-03-2024 [facility] Work Phone: PROTIME AND INRon 05-03-2024 INR Coag (PPP) [Relative time] 1.1 {INR} Normal 0.9-1.2 [facility] Comment on above: Performed By: #### 1 4979-9 #### [facility] ([id number]) [address] [place] [id number] #### PINR #### [facility] ([id number]) [address], [address] [place] [address] PT Coag (PPP) [Time] 12.5 s Normal 9.8-13.2 [facility] Comment on above: Performed By: #### 1 4979-9 #### [facility] ([id number]) [address] [place] [id number] #### PINR #### [facility] ([id number]) [address], [address] [place] [address] Protime & INRon 05-03-2024 INR Coag (PPP) [Relative time] 1.1 {INR} [facility] PT Coag (PPP) [Time] 12.5 s [facility] XR Chest PA and Lateralon Sekou Garcia MD - 05/03/2024 CHEST 2 VIEWS HISTORY: Smoker, preoperative evaluation COMPARISON: None FINDINGS: No focal airspace disease, pulmonary edema, pleural effusions, or pneumothorax. Normal cardiomediastinal silhouette. IMPRESSION: No acute cardiopulmonary disease. Finalized by Sekou Garcia MD on 05/03/2024 3:17 PM [facility] Radiology Study observation (narrative) [facility] XR Chest PA and LateralOrder ed By: Sekou Garcia on 05-03-2024 [facility] Work Phone: aPTT Coag (PPP) [Time]on [facility] aPTT Coag (Bld) [Time] 34 s Normal 26-37 Pr [facility] Comment on above: Result Comment: NEW REFERENCE RANGE Performed By: #### 1 4979-9 #### [facility] ([id number]) [address] [place] [address], [place] [address] #### PINR #### [facility] ([id number]) [address], [address] [place] [address] CBC AND AUTO DIFFon 05-01-19 25 ABSOLUTE BASOPHIL 0.1 X10E9/L Normal 0.0-0.2 [facility] Comment on above: Performed By: #### C BCA #### [facility] ([id number]) [address], [address] [place] [address] ABSOLUTE NEUTROPHIL 7.2 X10E9/L High 1.5-6.6 [facility] Comment on above: Performed By: #### C BCA #### [facility] ([id number]) [address], [address] [place] [address] Basophils/100 WBC (Bld) 0.9 % Normal [facility] Comment on above: Performed By: #### C BCA #### [facility] ([id number]) [address], [address] [place] [address] Eosinophils (Bld) [#/Vol] 0.2 10*3/uL Normal 0.0-0.4 [facility] Comment on above: Performed By: #### C BCA #### [facility] ([id number]) [address], [address] [place] [address] Eosinophils/100 WBC (Bld) 1.6 % Normal [facility] Comment on above: Performed By: #### C BCA #### [facility] ([id number]) [address], [address] [place] [address] Erythrocyte distribution width (RBC) [Ratio] 16.2 % High 11.5-15.0 [facility] Comment on above: Performed By: #### C BCA #### [facility] ([id number]) [address], [address] [place] [address] Hematocrit (Bld) [Volume fraction] 42.6 % Normal 35-47 [facility] Comment on above: Performed By: #### C BCA #### [facility] ([id number]) [address] [address] [place] [address] Hemoglobin (Bld) [Mass/Vol] 14.2 g/dL Normal 11.7-15.5 [facility] Comment on above: Performed By: #### C BCA #### [facility] ([id number]) [address], [address] [place] [address] Lymphocytes (Bld) [#/Vol] 2.3 10*3/uL Normal 1.0-3.5 [facility] Comment on above: Performed By: #### C BCA #### [facility] ([id number]) [address], [address] [place] [address] Lymphocytes/100 WBC (Bld) 22.1 % Normal [facility] Comment on above: Performed By: #### C BCA #### [facility] ([id number]) [address], [address] [place] [address] MCH (RBC) [Entitic mass] 30.1 pg Normal 27-34 [facility] Comment on above: Performed By: #### C BCA #### [facility] ([id number]) [address] [place] [address] MCHC (RBC) [Mass/Vol] 33.4 g/dL Normal 32-36 [facility] Comment on above: Performed By: #### C BCA #### [facility] ([id number]) [address], [address] [place] [address] MCV (RBC) [Entitic vol] 90 fL Normal 80-100 [facility] Comment on above: Performed By: #### C BCA #### [facility] ([id number]) [address], [address] [place] [address] Monocytes (Bld) [#/Vol] 0.8 10*3/uL Normal 0-0.9 [facility] Comment on above: Performed By: #### C BCA #### [facility] ([id number]) [address], [address] [place] [address] Monocytes/100 WBC (Bld) 7.2 % Normal [facility] Comment on above: Performed By: #### C BCA #### [facility] ([id number]) [address], [address] [place] [address] Neutrophils/100 WBC (Bld) 68.2 % Normal [facility] Comment on above: Performed By: #### C BCA #### [facility] ([id number]) [address] [address], [address] [place] [address] Platelet mean volume (Bld) [Entitic vol] 9.7 fL Normal 7-12 [facility] Comment on above: Performed By: #### C BCA #### [facility] ([id number]) [address], [address] [place] [address] Platelets (Bld) [#/Vol] 207 10*3/uL Normal 150-450 [facility] Comment on above: Performed By: #### C BCA #### [facility] ([id number]) [address], [address] [place] [address] RBC COUNT 4.72 X10E12/L Normal 3.80-5.20 [facility] Comment on above: Performed By: #### C BCA #### [facility] ([id number]) [address], [address] [place] [address] WBC (Bld) [#/Vol] 10.6 10*3/uL Normal 4.0-11.0 [facility] Comment on above: Performed By: #### C BCA #### [facility] ([id number]) [address], [address] [place] [address] CBC W Auto Differential pane l (Bld)on 04-30-2024 ABSOLUTE BASOPHIL 0.1 [facility] Comment on above: PERFORMED AT [facility] [address],[place] [address] Basophils/100 WBC (Bld) 0.9 % [facility] Eosinophils (Bld) [#/Vol] 0.2 10*3/uL [facility] Eosinophils/100 WBC (Bld) 1.6 % [facility] Erythrocyte distribution width (RBC) [Ratio] 16.2 % High 11.5 - 15.0 % [facility] Hematocrit (Bld) [Volume fraction] 42.6 % 35 - 47 % [facility] Hemoglobin (Bld) [Mass/Vol] 14.2 g/dL 11.7 - 15.5 g/dL [facility] Interpretation and review of laboratory results Abnormal [facility] Lymphocytes (Bld) [#/Vol] 2.3 10*3/uL [facility] Lymphocytes/100 WBC (Bld) 22.1 % [facility] MCH (RBC) [Entitic mass] 30.1 pg 27 - 34 pg [facility] MCHC (RBC) [Mass/Vol] 33.4 g/dL 32 - 3 6 g/dL [facility] MCV (RBC) [Entitic vol] 90 fL 80 - 100 fL [facility] Monocytes (Bld) [#/Vol] 0.8 10*3/uL [facility] Monocytes/100 WBC (Bld) 7.2 % [facility] Neutrophils (Bld) [#/Vol] 7.2 10*3/uL High [facility] Neutrophils/100 WBC (Bld) 68.2 % [facility] Platelet mean volume (Bld) [Entitic vol] 9.7 fL 7 - 12 fL [facility] Platelets (Bld) [#/Vol] 207 10*3/uL [facility] RBC (Bld) [#/Vol] 4.72 10*6/uL [facility] WBC corrected for nucl RBC Auto (Bld) [#/Vol] 10.6 [facility] COMPREHENSIVE METABOLIC PANE Philipp 04-30-2024 Albumin [Mass/Vol] 3.8 g/dL Normal 3.2-5.3 [facility] Comment on above: Performed By: #### C MP #### [facility] ([id number]) [address], [address] [place] [address] ALP [Catalytic activity/Vol] 137 U/L High 39-130 [facility] Comment on above: Performed By: #### C MP #### [facility] ([id number]) [address], [address] [place] [address] ALT [Catalytic activity/Vol] 16 U/L Normal 0-31 [facility] Comment on above: Performed By: #### C MP #### [facility] ([id number]) [address], [address] [place] [address] Anion gap [Moles/Vol] 7 mmol/L Normal 5-15 [facility] Comment on above: Performed By: #### C MP #### [facility] ([id number]) [address], [address] [place] [address] AST [Catalytic activity/Vol] 12 U/L Normal 0-41 [facility] Comment on above: Performed By: #### C MP #### [facility] ([id number]) [address], [address] [place] [address] Bilirubin [Mass/Vol] 0.3 mg/dL Normal 0.3-1.2 [facility] Comment on above: Performed By: #### C MP #### [facility] ([id number]) [address], [address] [place] [address] Calcium [Mass/Vol] 9.0 mg/dL Normal 8.5-10.5 [facility] Comment on above: Performed By: #### C MP #### [facility] ([id number]) [address], [address] [place] [address] Chloride [Moles/Vol] 103 mmol/L Normal 98-109 [facility] Comment on above: Performed By: #### C MP #### [facility] ([id number]) [address], [address] [place] [address] CO2 [Moles/Vol] 28 mmol/L Normal 22-32 [facility] Comment on above: Performed By: #### C MP #### [facility] ([id number]) [address], [address] [place] [address] Creatinine [Mass/Vol] 1.26 mg/dL High 0.40-1.00 [facility] Comment on above: Result Comment: METH OD TRACEABLE TO IDMS STANDARD Performed By: #### C MP #### [facility] ([id number]) [address], [address] [place] [address] GFR/1.73 sq M.predicted among non-blacks MDRD (S/P/Bld) [Vol rate/Area] 49 mL/min/{1.73_m2} Low >59 [facility] Comment on above: Result Comment: Reported eGFR is based on the CKD-EPI 1 equation that does not use a race coefficient. Performed By: #### C MP #### [facility] ([id number]) [address], [address] [place] [address] Glucose [Mass/Vol] 88 mg/dL Normal 65-99 [facility] Comment on above: Performed By: #### C MP #### [facility] ([id number]) [address], [address] [place] [address] Potassium [Moles/Vol] 4.7 mmol/L Normal 3.5-5.0 [facility] Comment on above: Performed By: #### C MP #### [facility] ([id number]) [address], [address] [place] [address] Protein [Mass/Vol] 6.9 g/dL Normal 6.0-8.0 [facility] Comment on above: Performed By: #### C MP #### [facility] ([id number]) [address], [address] [place] [address] Sodium [Moles/Vol] 138 mmol/L Normal 134-146 [facility] Comment on above: Performed By: #### C MP #### [facility] ([id number]) [address], [address] [place] [address] Urea nitrogen [Mass/Vol] 18 mg/dL Normal 5-23 [facility] Comment on above: Performed By: #### C MP #### [facility] ([id number]) [address], [address] [place] [address] Office Visiton 04-27-2024 Follow-up visit [id number] Sarah Ellis 1965 F Date Provider Department Center 04/27/2024 MALIK CLAUDIO [facility] Family History Problem Relation Age of Onset Diabetes Mother Heart attack Mother Other Mother Coronary artery disease Mother Diabetes Father Coronary artery disease Father Heart attack Maternal Grandfather Family Status - Relation Status Age at Mother Father Maternal Grandfather Level of Service:[address] [place] OFFICE/OUTPATIENT ESTABLISHED MOD MDM 30 MIN Normal [facility] HbA1c (Bld) [Mass fraction]o n 04-17-2024 Interpretation and review of laboratory results Abnormal [facility] - Hematology and Cell countson 04-17-2024 HbA1c (Bld) [Mass fraction] 7.40 % [facility] XR Knee - right 1 or [...] right knee with varus alignment Dori Wesley STEEL MANAGER-MEDICAL BILLING AND CODING SPECIALIST [facility] Radiology Study observation (narrative) [facility] MR KNEE RIGHT WO IV CONTRAST [...] to MCL sprain. ELECTRONICALLY SIGNED BY: Lex Feng, DO Normal Not Available MR ANKLE RIGHT [...] Interpretation and review of laboratory results Abnormal [facility] - Hematology and Cell countson 01-16-2024 HbA1c (Bld) [Mass fraction] 8.30 % [facility] No Panel Informationon 12-19 Lisette Cummins, 12/20/2023 12:08 PM L Inj/Asp: R knee on 12/20/2023 11:50 AM Indications: pain Details: 21 G needle, anterolateral approach Medications: 40 mg methylPREDNISolone acetate 40 MG/ML Outcome: tolerated well, no immediate complications Procedure, treatment alternatives, risks and benefits explained, specific risks discussed. Consent was given by the patient. [facility] BASIC METABOLIC PANELon 09-22 Anion gap [Moles/Vol] 11 mmol/L Normal 7-20 [facility] Comment on above: Performed By: #### L [id number] #### [facility] ([facility]) [address] [place] [address] Calcium [Mass/Vol] 8.8 mg/dL Normal 8.6-10.3 [facility] Comment on above: Performed By: #### L [id number] #### [facility] ([facility]) [address] [place] [address] Chloride [Moles/Vol] 103 mmol/L Normal 98-107 [facility] Comment on above: Performed By: #### L [id number] #### [facility] ([facility]) [address] [place] [address] CO2 [Moles/Vol] 28 mmol/L Normal 21-31 [facility] Comment on above: Performed By: #### L [id number] #### [facility] ([facility]) [address] [place] [address] Creatinine [Mass/Vol] 1.17 mg/dL Normal 0.60-1.20 [facility] Comment on above: Performed By: #### L [id number] #### [facility] ([facility]) [address] [place] [address] GLOMERULAR FILTRATION RATE ML/MIN/1.73 SQ M.PREDICTED 54.4 mL/min/1.73m*2 Low >60.0 [facility] Comment on above: Result Comment: [facility]???s estimated glomerular filtration rate (eGFR) will [...] group of individuals. Performed By: #### L [id number] #### [facility] ([facility]) [address] [place] [address] Glucose [Mass/Vol] 169 mg/dL High 70-100 [facility] Comment on above: Performed By: #### L [id number] #### [facility] ([facility]) [address] [place] [address] Potassium [Moles/Vol] 4.4 mmol/L Normal 3.5-5.1 [facility] Comment on above: Performed By: #### L [id number] #### [facility] ([facility]) [address] [place] [address] Sodium [Moles/Vol] 138 mmol/L Normal 136-145 [facility] Comment on above: Performed By: #### L [id number] #### [facility] ([facility]) [address] [place] [address] Urea nitrogen [Mass/Vol] 24 mg/dL Normal 7-25 [facility] Comment on above: Performed By: #### L [id number] #### [facility] ([facility]) [address] [place] [address] UREA NITROGEN/CREATININE (MASS RATIO) IN SER/PLAS 20.5 Normal [facility] Comment on above: Performed By: #### L [id number] #### [facility] ([facility]) [address] [place] [address] CBC WITH AUTO DIFFERENTIALon 10-19-2023 Basophils (Bld) [#/Vol] 0.09 10*3/uL Normal 0.00-0.20 [facility] Comment on above: Performed By: #### L [id number] #### [facility] ([facility]) [address] [place] [address] Basophils/100 WBC (Bld) 0.8 % Normal 0.0-1.0 [facility] Comment on above: Performed By: #### L [id number] #### [facility] ([facility]) [address] [place] [address] Eosinophils (Bld) [#/Vol] 0.25 10*3/uL Normal 0.00-0.50 [facility] Comment on above: Performed By: #### L [id number] #### [facility] ([facility]) [address] [place] [address] Eosinophils/100 WBC (Bld) 2.2 % Normal 0.0-6.0 [facility] Comment on above: Performed By: #### L [id number] #### [facility] ([facility]) [address] [place] [address] Erythrocyte distribution width (RBC) [Ratio] 14.6 % Normal 11.5-15.0 [facility] Comment on above: Performed By: #### L [id number] #### [facility] ([facility]) [address] [place] [address] ERYTHROCYTE MEAN CORPUSCULAR HEMOGLOBIN CONCENTRATION (G/DL) BY AUTOMATED 32.1 g/dL Normal 32.0-35.0 [facility] Comment on above: Performed By: #### L [id number] #### [facility] ([facility]) [address] [place] [address] Hematocrit (Bld) [Volume fraction] 44.2 % Normal 36.0-48.0 [facility] Comment on above: Performed By: #### L [id number] #### [facility] ([facility]) [address] [place] [address] Hemoglobin (Bld) [Mass/Vol] 14.2 g/dL Normal 12.0-15.0 [facility] Comment on above: Performed By: #### L [id number] #### [facility] ([facility]) [address] [place] [address] Immature granulocytes (Bld) [#/Vol] 0.15 10*3/uL Normal 0.00-0.20 [facility] Comment on above: Performed By: #### L [id number] #### [facility] ([facility]) [address] [place] [address] Immature granulocytes/100 WBC (Bld) 1.3 % High 0.0-1.0 [facility] Comment on above: Performed By: #### L [id number] #### [facility] ([facility]) [address] [place] [address] Lymphocytes (Bld) [#/Vol] 2.65 10*3/uL Normal 1.20-4.00 [facility] Comment on above: Performed By: #### L [id number] #### [facility] ([facility]) [address] [place] [address] Lymphocytes/100 WBC (Bld) 22.8 % Normal 20.0-45.0 [facility] Comment on above: Performed By: #### L [id number] #### [facility] ([facility]) [address] [place] [address] MCH (RBC) [Entitic mass] 30.3 pg Normal 27.0-33.0 [facility] Comment on above: Performed By: #### L [id number] #### [facility] ([facility]) [address] [place] [address] MCV (RBC) [Entitic vol] 94.4 fL Normal 82.0-98.0 [facility] Comment on above: Performed By: #### L [id number] #### [facility] ([facility]) [address] [place] [address] Monocytes (Bld) [#/Vol] 0.79 10*3/uL Normal 0.10-1.00 [facility] Comment on above: Performed By: #### L [id number] #### [facility] ([facility]) [address] [place] [address] Monocytes/100 WBC (Bld) 6.8 % Normal 5.0-12.0 [facility] Comment on above: Performed By: #### L [id number] #### [facility] ([facility]) [address] [place] [address] Neutrophils (Bld) [#/Vol] 7.67 10*3/uL High 1.60-7.60 [facility] Comment on above: Performed By: #### L [id number] #### [facility] ([facility]) [address] [place] [address] Neutrophils/100 WBC (Bld) 66.1 % Normal 40.0-72.0 [facility] Comment on above: Performed By: #### L [id number] #### [facility] ([facility]) [address] [place] [address] NRBC (PER 100 WBCS) BY AUTOMATED COUNT 0.0 % Normal 0 [facility] Comment on above: Performed By: #### L [id number] #### [facility] ([facility]) [address] [place] [address] PLATELETS (10*3/UL) IN BLOOD AUTOMATED COUNT 190 10*3/uL Normal 150-400 [facility] Comment on above: Performed By: #### L [id number] #### [facility] ([facility]) [address] [place] [address] RBC (Bld) [#/Vol] 4.68 10*6/uL Normal 3.80-5.00 [facility] Comment on above: Performed By: #### L [id number] #### [facility] ([facility]) [address] [place] [address] WBC (Bld) [#/Vol] 11.60 10*3/uL High 4.00-10.60 [facility] Comment on above: Performed By: #### L [id number] #### [facility] ([facility]) [address] [place] [address] HPon 10-19-2023 HP H&P reviewed. The pa larryisidra was examined and there are no changes to the H&P. Discussed risks, benefits, and alternative therapies with the patient, she understands and willing to proceed with peripheral angiogram and possible intervention. Randy Lala MD PGY-7 Interventional Consulting Business Developer Normal [facility] Diana 10-19-2023 NURSNOTE RN educated pt on d/ c instructions. RN encouraged pt to voice any questions or concerns. Pt verbalizes no questions or concerns at this time. Normal [facility] HPon 09-21-2023 [facility] Cardiology - [facility] Subjective Elmer Ellis is [...] V [place]. At her prior visit with APRON CLEANER Niyah Pop on 04/27/2019 she was complaining [...] Day BSA (more content not included)... Normal [facility] Office Visiton 09-21-2023 Follow-up visit [id number] Sarah Ellis 1965 Provider Department Center 09/21/2023 MALIK CLAUDIO Family History Problem Relation Age of Onset Diabetes Mother Heart attack Mother Other Mother Coronary artery disease Mother Diabetes Father Coronary artery disease Father Heart attack Maternal Grandfather Family Status - Relation Status Age at Mother Father Maternal Grandfather Level of Service:[address]113 [place] OFFICE/OUTPATIENT ESTABLISHED HIGH MDM 40 MIN Normal [facility] Office Visiton 08-18-2023 Follow-up visit [id number] Sarah Ellis 1965 Provider Department Center 08/18/2023 MALIK CLAUDIO Family History Problem Relation Age of Onset Diabetes Mother Heart attack Mother Other Mother Coronary artery disease Mother Diabetes Father Coronary artery disease Father Heart attack Maternal Grandfather Family Status - Relation Status Age at Mother Father Maternal Grandfather Level of Service:[address] [place] OFFICE/OUTPATIENT ESTABLISHED MOD MDM 30 MIN Normal [facility] Complete Blood Count Auto Di ffon 07-07-2023 Basophils (Bld) [#/Vol] 0.1 10*3/uL Normal 0.0-0.2 [facility] Comment on above: Result Comment: PERF ORMED BY: [place] [address] PATHOLOGIST COURTESY BOOTH CASHIER YU ACOSTA M.D. Performed By: #### C BC, CMP, FE and TIBC, JAQUELINE, [id number] #### [facility] [address] [place] [address] #### METH, EPO #### [facility] , Basophils/100 WBC (Bld) 0.6 % Normal . [facility] Comment on above: Performed By: #### C BC, CMP, FE and TIBC, JAQUELINE, [id number] #### [facility] [address] [place] [address] [place] #### METH, EPO #### [facility] , Eosinophils (Bld) [#/Vol] 0.2 10*3/uL Normal 0.0-0.45 [facility] Comment on above: Performed By: #### C BC, CMP, FE and TIBC, JAQUELINE, [id number] #### [place] [address] [place] #### METH, EPO #### [facility] , Eosinophils/100 WBC (Bld) 1.8 % Normal . [facility] Comment on above: Performed By: #### C BC, CMP, FE and TIBC, JAQUELINE, [id number] #### [address] #### METH, EPO #### [facility] , Erythrocyte distribution width (RBC) [Ratio] 14.8 % Normal 11.9-15.3 [facility] Comment on above: Performed By: #### C BC, CMP, FE and TIBC, JAQUELINE, [id number] #### [place] [address] [place] #### METH, EPO #### [facility] , Hematocrit (Bld) [Volume fraction] 43.6 % Normal 34.0-46.4 [facility] Comment on above: Performed By: #### C BC, CMP, FE and TIBC, JAQUELINE, [id number] #### [place] [address] [place] #### METH, EPO #### [facility] , Hemoglobin (Bld) [Mass/Vol] 14.4 g/dL Normal 11.8-15.4 [facility] Comment on above: Performed By: #### C BC, CMP, FE and TIBC, JAQUELINE, [id number] #### [place] [address] [place] #### METH, EPO #### [facility] , Lymphocytes (Bld) [#/Vol] 2.7 10*3/uL Normal 1.00-4.8 [facility] Comment on above: Performed By: #### C BC, CMP, FE and TIBC, JAQUELINE, [id number] #### [address] #### METH, EPO #### [facility] , Lymphocytes/100 WBC (Bld) 24.7 % Normal . [facility] Comment on above: Performed By: #### C BC, CMP, FE and TIBC, JAQUELINE, [id number] #### [place] [address] [place] #### METH, EPO #### [facility] , MCH (RBC) [Entitic mass] 30.5 pg Normal 24.7-34.3 [facility] Comment on above: Performed By: #### C BC, CMP, FE and TIBC, JAQUELINE, [id number] #### [address] #### METH, EPO #### [facility] , MCV (RBC) [Entitic vol] 92.1 fL Normal 80-100 [facility] Comment on above: Performed By: #### C BC, CMP, FE and TIBC, JAQUELINE, [id number] #### [place] [address] [place] #### METH, EPO #### [facility] , Mean Corpuscular HGB Conc 33.1 g/dL Normal 32.0-35.0 [facility] Comment on above: Performed By: #### C BC, CMP, FE and TIBC, JAQUELINE, [id number] #### [place] [address] [place] #### METH, EPO #### [facility] , Monocytes (Bld) [#/Vol] 0.6 10*3/uL Normal 0.0-0.8 [facility] Comment on above: Performed By: #### C BC, CMP, FE and TIBC, JAQUELINE, [id number] #### [address] #### METH, EPO #### [facility] , Monocytes/100 WBC (Bld) 5.3 % Normal . [facility] Comment on above: Performed By: #### C BC, CMP, FE and TIBC, JAQUELINE, [id number] #### [address] #### METH, EPO #### [facility] , Neutrophils (Bld) [#/Vol] 7.5 10*3/uL Normal 1.8-7.7 [facility] Comment on above: Performed By: #### C BC, CMP, FE and TIBC, JAQUELINE, [id number] #### [place] [address] [place] #### METH, EPO #### [facility] , Neutrophils/100 WBC (Bld) 67.6 % Normal . [facility] Comment on above: Performed By: #### C BC, CMP, FE and TIBC, JAQUELINE, [id number] #### [address] #### METH, EPO #### [facility] , NRBC% 0.1 /100{WBC} Normal 0-0.5 [facility] Comment on above: Performed By: #### C BC, CMP, FE and TIBC, JAQUELINE, [id number] #### [place] [address] [place] #### METH, EPO #### [facility] , Platelet mean volume (Bld) [Entitic vol] 9.7 fL Normal 6.3-10.7 [facility] Comment on above: Performed By: #### C BC, CMP, FE and TIBC, JAQUELINE, [id number] #### [address] #### METH, EPO #### [facility] , Platelets (Bld) [#/Vol] 169 10*3/uL Normal 150-450 [facility] Comment on above: Performed By: #### C BC, CMP, FE and TIBC, JAQUELINE, [id number] #### [place] [address] [place] #### METH, EPO #### [facility] , RBC (Bld) [#/Vol] 4.73 10*6/uL Normal 3.60-5.00 [facility] Comment on above: Performed By: #### C BC, CMP, FE and TIBC, JAQUELINE, [id number] #### [address] #### METH, EPO #### [facility] , WBC (Bld) [#/Vol] 11.0 10*3/uL Normal 3.8-11.6 [facility] Comment on above: Performed By: #### C BC, CMP, FE and TIBC, JAQUELINE, [id number] #### [address] #### METH, EPO #### [facility] , Comprehensive Metabolic Pane philipp 07-07-2023 Albumin [Mass/Vol] 3.8 g/dL Normal 3.5-5.7 [facility] Comment on above: Performed By: #### C BC, CMP, FE and TIBC, JAQUELINE, [id number] #### [place] [address] [place] #### METH, EPO #### [facility] , Albumin/Globulin [Mass ratio] 1.4 {ratio} Normal [facility] Comment on above: Performed By: #### C BC, CMP, FE and TIBC, JAQUELINE, [id number] #### [place] [address] [place] #### METH, EPO #### [facility] , ALP [Catalytic activity/Vol] 167 U/L High 34-104 [facility] Comment on above: Performed By: #### C BC, CMP, FE and TIBC, JAQUELINE, [id number] #### [facility] [address] [place] [address] [place] #### METH, EPO #### [facility] , ALT [Catalytic activity/Vol] 21 U/L Normal 7-52 [facility] Comment on above: Performed By: #### C BC, CMP, FE and TIBC, JAQUELINE, [id number] #### [address] #### METH, EPO #### [facility] , Anion gap [Moles/Vol] 13.5 mmol/L Normal 6.0-15.0 [facility] Comment on above: Performed By: #### C BC, CMP, FE and TIBC, JAQUELINE, [id number] #### [place] [address] [place] #### METH, EPO #### [facility] , AST [Catalytic activity/Vol] 15 U/L Normal 13-39 [facility] Comment on above: Performed By: #### C BC, CMP, FE and TIBC, JAQUELINE, [id number] #### [place] [address] [place] #### METH, EPO #### [facility] , Bilirubin [Mass/Vol] 0.4 mg/dL Normal 0.3-1.0 [facility] Comment on above: Performed By: #### C BC, CMP, FE and TIBC, JAQUELINE, [id number] #### [place] [address] [place] #### METH, EPO #### [facility] , Calcium [Mass/Vol] 8.6 mg/dL Normal 8.6-10.3 [facility] Comment on above: Performed By: #### C BC, CMP, FE and TIBC, JAQUELINE, [id number] #### [place] [address] [place] #### METH, EPO #### [facility] , Chloride [Moles/Vol] 102 mmol/L Normal 98-107 [facility] Comment on above: Performed By: #### C BC, CMP, FE and TIBC, JAQUELINE, [id number] #### [place] [address] [place] #### METH, EPO #### [facility] , CO2 [Moles/Vol] 26.8 mmol/L Normal 21.0-31.0 [facility] Comment on above: Performed By: #### C BC, CMP, FE and TIBC, JAQUELINE, [id number] #### [place] [address] [place] #### METH, EPO #### [facility] , Creatinine [Mass/Vol] 1.18 mg/dL Normal 0.60-1.20 [facility] Comment on above: Performed By: #### C BC, CMP, FE and TIBC, JAQUELINE, [id number] #### [place] [address] [place] #### METH, EPO #### [facility] , Creatinine Clr Calc Pharmacy 65.67 Normal [facility] Comment on above: Performed By: #### C BC, CMP, FE and TIBC, JAQUELINE, [id number] #### [place] [address] [place] #### METH, EPO #### [facility] , GFR/1.73 sq M.predicted MDRD (S/P/Bld) [Vol rate/Area] 53.873 mL/min/{1.73_m2} Normal [facility] Comment on above: Performed By: #### C BC, CMP, FE and TIBC, JAQUELINE, [id number] #### [place] [address] [place] #### METH, EPO #### [facility] , Globulin (S) [Mass/Vol] 2.8 g/dL Normal [facility] Comment on above: Performed By: #### C BC, CMP, FE and TIBC, JAQUELINE, [id number] #### [place] [address] [place] #### METH, EPO #### [facility] , Glucose [Mass/Vol] 215 mg/dL High 70-100 [facility] Comment on above: Result Comment: [facility] Glucose Reference Range is dependent on time and content of last meal. Glucose of more than 200 mg/dL in a nonstressed, ambulatory subject supports the diagnosis of Diabetes Mellitus. ADA recommended reference range Performed By: #### C BC, CMP, FE and TIBC, JAQUELINE, [id number] #### [place] [address] [place] #### METH, EPO #### [facility] , Potassium [Moles/Vol] 4.3 mmol/L Normal 3.5-5.1 [facility] Comment on above: Performed By: #### C BC, CMP, FE and TIBC, JAQUELINE, [id number] #### [place] [address] [place] #### METH, EPO #### [facility] , Protein [Mass/Vol] 6.6 g/dL Normal 6.4-8.9 [facility] Comment on above: Performed By: #### C BC, CMP, FE and TIBC, JAQUELINE, [id number] #### [place] [address] [place] #### METH, EPO #### [facility] , Sodium [Moles/Vol] 138 mmol/L Normal 136-145 [facility] Comment on above: Performed By: #### C BC, CMP, FE and TIBC, JAQUELINE, [id number] #### [place] [address] [place] #### METH, EPO #### [facility] , Urea nitrogen [Mass/Vol] 21 mg/dL Normal 7-25 [facility] Comment on above: Performed By: #### C BC, CMP, FE and TIBC, JAQUELINE, [id number] #### [address] #### METH, EPO #### [facility] , Erythropoetin (EPO), Serumon 07-07-2023 Erythropoetin (EPO), Serum 23.3 m[iU]/mL High 2.6-18.5 [facility] Comment on above: Result Comment: [employer] DxI 800 Immunoassay System Values obtained with different assay methods or kits cannot be used interchangeably. Results cannot be interpreted as absolute evidence of the presence or absence of malignant disease. Performed at: [address] [id number] Tube Former Operator: Hieu Willams PhD, Phone: [phone] PERFORMED BY: [place] [address] PATHOLOGIST COURTESY BOOTH CASHIER YU ACOSTA M.D. Performed By: #### C BC, CMP, FE and TIBC, JAQUELINE, [id number] #### [address] #### METH, EPO #### [facility] , Ferritinon 07-07-2023 Ferritin [Mass/Vol] 154.7 ng/mL Normal 11.0-306.8 [facility] Comment on above: Performed By: #### C BC, CMP, FE and TIBC, JAQUELINE, [id number] #### [address] #### METH, EPO #### [facility] , Iron and TIBC Profileon 06-21 6-2024 % Iron Saturation 33.9 % Normal 20-50 [facility] Comment on above: Performed By: #### C BC, CMP, FE and TIBC, JAQUELINE, [id number] #### [place] [address] [place] #### METH, EPO #### [facility] , Iron [Mass/Vol] 84 ug/dL Normal 50-212 [facility] Comment on above: Performed By: #### C BC, CMP, FE and TIBC, JAQUELINE, [id number] #### [place] [address] [place] #### METH, EPO #### [facility] , Total Iron Binding Capacity 248 ug/dL Low 255-450 [facility] Comment on above: Performed By: #### C BC, CMP, FE and TIBC, JAQUELINE, [id number] #### [place] [address] [place] #### METH, EPO #### [facility] , Transferrin [Mass/Vol] 177 mg/dL Low 203-362 [facility] Comment on above: Performed By: #### C BC, CMP, FE and TIBC, JAQUELINE, [id number] #### [place] [address] [place] #### METH, EPO #### [facility] , Methylmalonic Acidon 16-2 024 Methylmalonic Acid 202 Normal 0-378 [facility] Comment on above: Result Comment: This test was developed and its performance characteristics determined by [employer]. It has not been cleared or approved by the Food and Drug Administration. Performed at: [address] [id number] Tube Former Operator: Amara Coyne MD, Phone: [phone] Performed By: #### C BC, CMP, FE and TIBC, JAQUELINE, [id number] #### [place] [address] [place] #### METH, EPO #### [facility] , Vit. B12/Folate Profileon Cobalamin (Vitamin B12) [Mass/Vol] 493 pg/mL Normal 180-914 [facility] Comment on above: Performed By: #### C BC, CMP, FE and TIBC, JAQUELINE, [id number] #### [place] [address] [place] #### METH, EPO #### [facility] , Folate 30.0 ng/mL Normal >5.9 [facility] Comment on above: Result Comment: Sherry te reference range: >5.9 ng/ml The WHO technical consultation on folate and vitamin b12 deficiencies has determined that folate concentrations less than 4 ng/ml are considered deficient. PERFORMED BY: [address] [place] [address] PATHOLOGIST COURTESY BOOTH CASHIER YU ACOSTA M.D. Performed By: #### C BC, CMP, FE and TIBC, JAQUELINE, [id number] #### [address] #### METH, EPO #### [facility] , CREATININE BLDon 05-17-2023 Creatinine [Mass/Vol] 1.19 mg/dL High 0.58-0.96 [facility] Comment on above: Order Comment: Speci men Type: BLOOD SPECIMEN Ordering Facility: [facility] Address: [address] [place] [address] Performed By: #### C RET1 #### [facility] CLIA [id number] [address] [place] [address] Creatinine and Glomerular filtration rate.predicted panel (S/P/Bld) 53 mL/min/1.73m??? Low >=60 [facility] Comment on above: Order Comment: Speci men Type: BLOOD SPECIMEN Ordering Facility: [facility] Address: [address] [place] [address] [place] [address] Result Comment: Terri mated Glomerular Filtration Rate [...] GFR. Performed By: #### C RET1 #### [facility] CLIA [id number] [address] [place] [address] CREATININE BLDOrdered By: Shantelle Mock on 05-17-2023 Creatinine [Mass/Vol] 1.19 mg/dL High 0.58 - 0.96 mg/dL [facility] GFR/1.73 sq M.predicted among non-blacks MDRD (S/P/Bld) [Vol rate/Area] 53 mL/min/{1.73_m2} Low - PINF [facility] Comment on above: Estimated Glomerular Filtration [...] Interpretation and review of laboratory results Abnormal [facility] CT KIDNEY WO/W IVCONon 05-16 CT KIDNEY WO/W IVCON * * *Final Report* * * DATE OF EXAM: May 17 2023 2:01PM [facility] 0546 - CT KIDNEY WO/W IVCON [...] or blastic osseous abnormality. Lower thorax: Unremarkable. [employer] Systems Administrator (topogram) images: No additional findings. IMPRESSION: 1. [...] any questions regarding this interpretation, please call [phone]. If you are unable to reach us at the number above, please feel free to contact [facility]iology at [phone]. [id number] Normal [facility] CT Kidney WO and W contrast [...] any questions regarding this interpretation, please call [phone]. If you are unable to reach us at the number above, please feel free to contact [facility] at [phone]. DIVISION OF RADIOLOGY * * *Final Report* * * DATE OF EXAM: May 17 2023 2:01PM [facility] 0546 - CT KIDNEY WO/W IVCON [...] or blastic osseous abnormality. Lower thorax: Unremarkable. [employer] Systems Administrator (topogram) images: No additional findings. DIVISION OF RADIOLOGY Provider, [facility] - 05/17/2023 * * *Final Report* * * DATE OF EXAM: May 17 2023 2:01PM [facility] 0546 - CT KIDNEY WO/W IVCON [...] or blastic osseous abnormality. Lower thorax: Unremarkable. [employer] Systems Administrator (topogram) images: No additional findings. IMPRESSION IMPRESSION: [...] any questions regarding this interpretation, please call [phone]. If you are unable to reach us at the number above, please feel free to contact [facility] at [phone]. [facility] Radiology Study observation (narrative) [facility] CT Kidney WO and W contrast IVOrdered By: [facility] Provider on 05-17-2023 [facility] CNPNon 04-28-2023 CNPN Telephone (HEMTSA) ELMER ELLIS ([id number]) 1965 F Date Time Provider Department 04/28/23 ANGIE MCCLELLAN During your visit today, we recorded the following information about you: Josie Leong RN 04/28/2023 12:16 PM Signed Please sign pended Cre for upcoming CT. Pt needs updated lab before CT can be done Thank You! Josie Leong RN Allergies As of Date: 04/28/2023 (No Known Allergies) Date Reviewed: 10/15/2022 Reviewed by: Angie Mcclellan APRN.MEDICAL BILLING AND CODING SPECIALIST - Fully Assessed Reason for Visit: Orders [681] Primary Visit Diagnosis:Renal mass [N28.89] Order(s):CREATININE BLD [SQCRET] Order #: [id number] FUTURE Prescriptions as of 04/28/2023 - DULoxetine [...] by mouth twice daily. - MV with Tat-Cxmppdrq-Alxlgn (CENTRUM SILVER) 0.4 mg-300 mcg- 250 mcg tab Take by mouth. - insulin 75/25 lispro protamine/lispro units/mL (HUMALOG MIX 75-25,U-100,INSULN) 100 units/mL susp as directed. - HYDROcodone-acetaminophen (NORCO) 5-325 mg per tablet hydrocodone 5 mg-acetaminophen 325 mg tablet TAKE 1 TO 2 TABLETS BY MOUTH EVERY DAY AT BEDTIME NEEDED - nmslizml-jca-pfpc-FA-lutein (CENTRUM SILVER WOMEN) 8 mg iron-400 mcg-300 [...] (HCC) [D68.51] 04/19/2022 Coronary artery disease involving [place] heart *04/19/2022 Smoker [F17.200] 04/19/2022 Morbid obesity ([facility]) [E66.01] 04/19/2022 Other specified disorders of kidney and ureter *04/19/2022 Encounter Status:Closed by ANGIE MCCLELLAN on 04/28/23 Normal [facility] A1C with Estimated Average G dwight 04-13-2023 Glucose [Mass/Vol] 189 mg/dL Normal [facility] Comment on above: Result Comment: PERF ORMED BY: [place] [address] PATHOLOGIST COURTESY BOOTH CASHIER YU ACOSTA M.D. Performed By: #### C BC, CMP, FE and TIBC, JAQUELINE, [id number] #### [address] #### METH, EPO #### [facility] , HbA1c (Bld) [Mass fraction] 8.2 % High 4.3-5.6 [facility] Comment on above: Result Comment: Incr eased risk for diabetes: 5.7 - 6.4 diabetes: >6.4 glycemic control for adults with diabetes: <7.0 Performed By: #### C BC, CMP, FE and TIBC, JAQUELINE, [id number] #### [facility] [address] [place] [address] [place] #### METH, EPO #### [facility] , Alanine aminotransferase [En zymatic activity/volume] in Serum or PlasmaOrdered By: Lilly Christianson on 04-13-2023 ALT [Catalytic activity/Vol] 40 U/L Normal 7-52 [facility] Comment on above: Performed By: #### C BC, CMP, FE and TIBC, JAQUELINE, [id number] #### [facility] [address] [place] [address] [place] #### METH, EPO #### [facility] , Albumin [Mass/volume] in Ser um or Plasma by Bromocresol green (BCG) dye binding methoOrdered By: Lilly Christianson on 04-13-2023 Albumin BCG dye [Mass/Vol] 3.9 g/dL 3.5-5.7 [facility] Alkaline phosphatase [Enzyma tic activity/volume] in Serum or PlasmaOrdered By: Lilly Christianson on 04-13-2023 ALP [Catalytic activity/Vol] 182 U/L High 34-104 [facility] Comment on above: Performed By: #### C BC, CMP, FE and TIBC, JAQUELINE, [id number] #### [facility] [address] [place] [address] #### METH, EPO #### [facility] , Aspartate aminotransferase [ Enzymatic activity/volume] in Serum or PlasmaOrdered By: Lilly Christianson on 04-13-2023 AST [Catalytic activity/Vol] 22 U/L Normal 13-39 [facility] Comment on above: Performed By: #### C BC, CMP, FE and TIBC, JAQUELINE, [id number] #### [facility] [address] [place] [address] #### METH, EPO #### [facility] , Automated basophil %Ordered By: Lilly Christianson on 04-13-2023 Basophils/100 WBC (Bld) 0.9 % Normal . [facility] Comment on above: Performed By: #### C BC, CMP, FE and TIBC, JAQUELINE, [id number] #### [facility] [address] [place] [address] [place] #### METH, EPO #### [facility] , Automated basophil countOrde red By: Lilly Christianson on 04-13-2023 Basophils (Bld) [#/Vol] 0.1 10*3/uL Normal 0.0-0.2 [facility] Comment on above: Result Comment: PERF ORMED BY: [place] [address] PATHOLOGIST COURTESY BOOTH CASHIER YU ACOSTA M.D. Performed By: #### C BC, CMP, FE and TIBC, JAQUELINE, [id number] #### [place] [address] [place] #### METH, EPO #### [facility] , Automated blood monocyte cou ntOrdered By: Lilly Christianson on 04-13-2023 Monocytes (Bld) [#/Vol] 0.8 10*3/uL Normal 0.0-0.8 [facility] Comment on above: Performed By: #### C BC, CMP, FE and TIBC, JAQUELINE, [id number] #### [place] [address] [place] #### METH, EPO #### [facility] , Automated eosinophil %Ordere d By: Lilly Christianson on 04-13-2023 Eosinophils/100 WBC (Bld) 2.9 % Normal . [facility] Comment on above: Performed By: #### C BC, CMP, FE and TIBC, JAQUELINE, [id number] #### [place] [address] [place] #### METH, EPO #### [facility] , Automated eosinophil countOr dered By: Lilly Christianson on 04-13-2023 Eosinophils (Bld) [#/Vol] 0.3 10*3/uL Normal 0.0-0.45 [facility] Comment on above: Performed By: #### C BC, CMP, FE and TIBC, JAQUELINE, [id number] #### [place] [address] [place] #### METH, EPO #### [facility] , Automated monocyte %Ordered By: Lilly Christianson on 04-13-2023 Monocytes/100 WBC (Bld) 7.4 % Normal . [facility] Comment on above: Performed By: #### C BC, CMP, FE and TIBC, JAQUELINE, [id number] #### [place] [address] [place] #### METH, EPO #### [facility] , Automated neutrophil %Ordere d By: Lilly Christianson on 04-13-2023 Neutrophils/100 WBC (Bld) 65.0 % Normal . [facility] Comment on above: Performed By: #### C BC, CMP, FE and TIBC, JAQUELINE, [id number] #### [place] [address] [place] #### METH, EPO #### [facility] , Bilirubin.total [Mass/volume ] in Serum or PlasmaOrdered By: Lilly Christianson on 04-13-2023 Bilirubin [Mass/Vol] 0.3 mg/dL Normal 0.3-1.0 [facility] Comment on above: Performed By: #### C BC, CMP, FE and TIBC, JAQUELINE, [id number] #### [place] [address] [place] #### METH, EPO #### [facility] , Calcium [Mass/volume] in Ser um or PlasmaOrdered By: Lilly Christianson on 04-13-2023 Calcium [Mass/Vol] 8.9 mg/dL Normal 8.6-10.3 [facility] Comment on above: Performed By: #### C BC, CMP, FE and TIBC, JAQUELINE, [id number] #### [place] [address] [place] #### METH, EPO #### [facility] , Carbon dioxide, total [Moles /volume] in Serum or PlasmaOrdered By: Lilly Christianson on 04-13-2023 CO2 [Moles/Vol] 30.8 mmol/L Normal 21.0-31.0 [facility] Comment on above: Performed By: #### C BC, CMP, FE and TIBC, JAQUELINE, [id number] #### [place] [address] [place] #### METH, EPO #### [facility] , Chloride [Moles/volume] in S jigar or PlasmaOrdered By: Lilly Christianson on 04-13-2023 Chloride [Moles/Vol] 100 mmol/L Normal 98-107 [facility] Comment on above: Performed By: #### C BC, CMP, FE and TIBC, JAQUELINE, [id number] #### [facility] [address] [place] [address] [place] #### METH, EPO #### [facility] , Complete Blood Count Auto Di ffon 04-13-2023 Mean Corpuscular HGB Conc 33.1 g/dL Normal 32.0-35.0 [facility] Comment on above: Performed By: #### C BC, CMP, FE and TIBC, JAQUELINE, [id number] #### [place] [address] [place] #### METH, EPO #### [facility] , NRBC% 0.1 /100{WBC} Normal 0-0.5 [facility] Comment on above: Performed By: #### C BC, CMP, FE and TIBC, JAQUELINE, [id number] #### [facility] [address] [place] [address] [place] #### METH, EPO #### [facility] , Comprehensive Metabolic Pane philipp 04-13-2023 Albumin [Mass/Vol] 3.9 g/dL Normal 3.5-5.7 [facility] Comment on above: Performed By: #### C BC, CMP, FE and TIBC, JAQUELINE, [id number] #### [facility] [address] [place] [address] [place] #### METH, EPO #### [facility] , Creatinine Clr Calc Pharmacy 58.71 Normal [facility] Comment on above: Performed By: #### C BC, CMP, FE and TIBC, JAQUELINE, [id number] #### [facility] [address] [place] [address] [place] #### METH, EPO #### [facility] , GFR/1.73 sq M.predicted MDRD (S/P/Bld) [Vol rate/Area] 47.091 mL/min/{1.73_m2} Normal [facility] Comment on above: Performed By: #### C BC, CMP, FE and TIBC, JAQUELINE, [id number] #### [place] [address] [place] #### METH, EPO #### [facility] , Creatinine [Mass/volume] in Serum or PlasmaOrdered By: Lilly Christianson on 04-13-2023 Creatinine [Mass/Vol] 1.32 mg/dL High 0.60-1.20 [facility] Comment on above: Performed By: #### C BC, CMP, FE and TIBC, JAQUELINE, [id number] #### [place] [address] [place] #### METH, EPO #### [facility] , Erythrocyte distribution wid th [Ratio] by Automated countOrdered By: Lilly Christianson on 04-13-2023 Erythrocyte distribution width (RBC) [Ratio] 15.6 % High 11.9-15.3 [facility] Comment on above: Performed By: #### C BC, CMP, FE and TIBC, JAQUELINE, [id number] #### [place] [address] [place] #### METH, EPO #### [facility] , Erythrocytes [#/volume] in B lood by Automated countOrdered By: Lilly Christianson on 04-13-2023 RBC (Bld) [#/Vol] 4.91 10*6/uL Normal 3.60-5.00 [facility] Comment on above: Performed By: #### C BC, CMP, FE and TIBC, JAQUELINE, [id number] #### [place] [address] [place] #### METH, EPO #### [facility] , Erythropoetin (EPO), Serumon 04-13-2023 Erythropoetin (EPO), Serum 29.5 m[iU]/mL High 2.6-18.5 [facility] Comment on above: Result Comment: [employer] DxI 800 Immunoassay System Values obtained with different assay methods or kits cannot be used interchangeably. Results cannot be interpreted as absolute evidence of the presence or absence of malignant disease. Performed at: [address] [id number] Tube Former Operator: Hieu Willams PhD, Phone: [phone] PERFORMED BY: [place] [address] PATHOLOGIST COURTESY BOOTH CASHIER YU ACOSTA M.D. Performed By: #### C BC, CMP, FE and TIBC, JAQUELINE, [id number] #### [address] #### METH, EPO #### [facility] , Ferritin [Mass/volume] in Se rum or PlasmaOrdered By: Lilly Christianson on 04-13-2023 Ferritin [Mass/Vol] 102.5 ng/mL Normal 11.0-306.8 [facility] Comment on above: Performed By: #### C BC, CMP, FE and TIBC, JAQUELINE, [id number] #### [facility] [address] [place] [address] #### METH, EPO #### [facility] , Folate [Mass/volume] in Seru m or PlasmaOrdered By: Lilly Christianson on 04-13-2023 Folate [Mass/Vol] 4.7 ng/mL >5.9 [facility] Comment on above: Folate reference ran ge: >5.9 ng/mlThe WHO technical consultation on folate and vitamin [id number] has determined that folate concentrations lessthan 4 ng/ml are considered deficient. Glucose [Mass/volume] in Ser um or PlasmaOrdered By: Lilly Christianson on 04-13-2023 Glucose [Mass/Vol] 242 mg/dL High 70-100 [facility] Comment on above: ADA recommended refe rence rangeRandom Glucose Reference Range is dependent on time and content of last meal. Glucose of more than 200 mg/dL in a nonstressed, ambulatory subject supports the diagnosis of Diabetes Mellitus. Result Comment: [place] om Glucose Reference Range is dependent on time and content of last meal. Glucose of more than 200 mg/dL in a nonstressed, ambulatory subject supports the diagnosis of Diabetes Mellitus. ADA recommended reference range Performed By: #### C BC, CMP, FE and TIBC, JAQUELINE, [id number] #### [facility] [address] [place] [address] [place] #### METH, EPO #### [facility] , Hematocrit [Volume Fraction] of Blood by Automated countOrdered By: Lilly Christianson on 04-13-2023 Hematocrit (Bld) [Volume fraction] 44.7 % Normal 34.0-46.4 [facility] Comment on above: Performed By: #### C BC, CMP, FE and TIBC, JAQUELINE, [id number] #### [facility] [address] [place] [address] [place] #### METH, EPO #### [facility] , Hemoglobin [Mass/volume] in BloodOrdered By: Lilly Christianson on 04-13-2023 Hemoglobin (Bld) [Mass/Vol] 14.8 g/dL Normal 11.8-15.4 [facility] Comment on above: Performed By: #### C BC, CMP, FE and TIBC, JAQUELINE, [id number] #### [facility] [address] [place] [address] [place] #### METH, EPO #### [facility] , Iron [Mass/volume] in Serum or PlasmaOrdered By: Lilly Christianson on 04-13-2023 Iron [Mass/Vol] 129 ug/dL Normal 50-212 [facility] Comment on above: Performed By: #### C BC, CMP, FE and TIBC, JAQUELINE, [id number] #### [place] [address] [place] #### METH, EPO #### [facility] , Iron and TIBC Profileon 03-25 % Iron Saturation 50.0 % Normal 20-50 [facility] Comment on above: Performed By: #### C BC, CMP, FE and TIBC, JAQUELINE, [id number] #### [facility] [address] [place] [address] [place] #### METH, EPO #### [facility] , Total Iron Binding Capacity 258 ug/dL Normal 255-450 [facility] Comment on above: Performed By: #### C BC, CMP, FE and TIBC, JAQUELINE, [id number] #### [place] [address] [place] #### METH, EPO #### [facility] , Iron binding capacity [Mass/ volume] in Serum or PlasmaOrdered By: Lilly Christianson on 04-13-2023 Iron binding capacity [Mass/Vol] 258 ug/dL 255-450 [facility] Iron saturation [Mass Fracti on] in Serum or PlasmaOrdered By: Lilly Christianson on 04-13-2023 Iron saturation [Mass fraction] 50.0 % 20-50 [facility] Leukocytes [#/volume] correc nikki for nucleated erythrocytes in Blood by Automated counOrdered By: Lilly Christianson on 04-13-2023 WBC corrected for nucl RBC Auto (Bld) [#/Vol] 10.9 10*3/uL 3.8-11.6 [facility] Leukocytes [#/volume] in Blo od by Automated countOrdered By: Lilly Christianson on 04-13-2023 WBC (Bld) [#/Vol] 10.9 10*3/uL Normal 3.8-11.6 [facility] Comment on above: Performed By: #### C BC, CMP, FE and TIBC, JAQUELINE, [id number] #### [facility] [address] [place] [address] [place] #### METH, EPO #### [facility] , Lymphocytes [#/volume] in Bl ood by Automated countOrdered By: Lilly Christianson on 04-13-2023 Lymphocytes (Bld) [#/Vol] 2.6 10*3/uL Normal 1.00-4.8 [facility] Comment on above: Performed By: #### C BC, CMP, FE and TIBC, JAQUELINE, [id number] #### [place] [address] [place] #### METH, EPO #### [facility] , Lymphocytes/100 leukocytes i n Blood by Automated countOrdered By: Lilly Christianson on 04-13-2023 Lymphocytes/100 WBC (Bld) 23.8 % Normal . [facility] Comment on above: Performed By: #### C BC, CMP, FE and TIBC, JAQUELINE, [id number] #### [place] [address] [place] #### METH, EPO #### [facility] , MCH [Entitic mass] by Automa nikki countOrdered By: Lilly Christianson on 04-13-2023 MCH (RBC) [Entitic mass] 30.1 pg Normal 24.7-34.3 [facility] Comment on above: Performed By: #### C BC, CMP, FE and TIBC, JAQUELINE, [id number] #### [place] [address] [place] #### METH, EPO #### [facility] , MCHC Auto (RBC) [Mass/Vol]Or dered By: Lilly Christianson on 04-13-2023 MCHC (RBC) [Mass/Vol] 33.1 g/dL 32.0-35.0 [facility] MCV [Entitic volume] by Auto mated countOrdered By: Lilly Christianson on 04-13-2023 MCV (RBC) [Entitic vol] 90.9 fL Normal 80-100 [facility] Comment on above: Performed By: #### C BC, CMP, FE and TIBC, JAQUELINE, [id number] #### [place] [address] [place] #### METH, EPO #### [facility] , Methylmalonic Acidon 024 Methylmalonic Acid 321 Normal 0-378 [facility] Comment on above: Result Comment: This test was developed and its performance characteristics determined by [employer]. It has not been cleared or approved by the Food and Drug Administration. Performed at: [address] [id number] Tube Former Operator: Amara Coyne MD, Phone: [phone] Performed By: #### C BC, CMP, FE and TIBC, JAQUELINE, [id number] #### [address] #### METH, EPO #### [facility] , Neutrophils [#/volume] in Bl ood by Automated countOrdered By: Lilly Christianson on 04-13-2023 Neutrophils (Bld) [#/Vol] 7.1 10*3/uL Normal 1.8-7.7 [facility] Comment on above: Performed By: #### C BC, CMP, FE and TIBC, JAQUELINE, [id number] #### [address] #### METH, EPO #### [facility] , No Panel InformationOrdered By: Lilly Christianson on 04-13-2023 Estimated GFR (CKD-EPI) 47.091 mL/Min [facility] Creatinine Clearance (Chem 58.71 [facility] Nucleated erythrocytes [Pres ence] in Blood by Automated countOrdered By: Lilly Christianson on 04-13-2023 Nucleated RBC Auto Ql (Bld) 0.1 /100{WBC} 0-0.5 [facility] Platelet mean volume [Entiti c volume] in Blood by Automated countOrdered By: Lilly Christianson on 04-13-2023 Platelet mean volume (Bld) [Entitic vol] 9.4 fL Normal 6.3-10.7 [facility] Comment on above: Performed By: #### C BC, CMP, FE and TIBC, JAQUELINE, [id number] #### [place] [address] [place] #### METH, EPO #### [facility] , Platelets [#/volume] in Bloo d by Automated countOrdered By: Lilly Christianson on 04-13-2023 Platelets (Bld) [#/Vol] 187 10*3/uL Normal 150-450 [facility] Comment on above: Performed By: #### C BC, CMP, FE and TIBC, JAQUELINE, [id number] #### [address] #### METH, EPO #### [facility] , Potassium [Moles/volume] in Serum or PlasmaOrdered By: Lilly Christianson on 04-13-2023 Potassium [Moles/Vol] 4.8 mmol/L Normal 3.5-5.1 [facility] Comment on above: Performed By: #### C BC, CMP, FE and TIBC, JAQUELINE, [id number] #### [place] [address] [place] #### METH, EPO #### [facility] , Protein [Mass/volume] in Ser um or PlasmaOrdered By: Lilly Christianson on 04-13-2023 Protein [Mass/Vol] 6.5 g/dL Normal 6.4-8.9 [facility] Comment on above: Performed By: #### C BC, CMP, FE and TIBC, JAQUELINE, [id number] #### [facility] [address] [place] [address] [place] #### METH, EPO #### [facility] , Serum globulin measurement b y calculation (mass/volume)Ordered By: Lilly Christianson on 04-13-2023 Globulin (S) [Mass/Vol] 2.6 g/dL [facility] Comment on above: Performed By: #### C BC, CMP, FE and TIBC, JAQUELINE, [id number] #### [place] [address] [place] #### METH, EPO #### [facility] , Serum or plasma albumin/glob ulin mass ratioOrdered By: Lilly Christianson on 04-13-2023 Albumin/Globulin [Mass ratio] 1.5 {ratio} [facility] Comment on above: Performed By: #### C BC, CMP, FE and TIBC, JAQUELINE, [id number] #### [facility] [address] [place] [address] [place] #### METH, EPO #### [facility] , Serum or plasma anion gap de terminationOrdered By: Lilly Christianson on 04-13-2023 Anion gap [Moles/Vol] 12.0 mmol/L Normal 6.0-15.0 [facility] Comment on above: Performed By: #### C BC, CMP, FE and TIBC, JAQUELINE, [id number] #### [place] [address] [place] #### METH, EPO #### [facility] , Sodium [Moles/volume] in Ser um or PlasmaOrdered By: Lilly Christianson on 04-13-2023 Sodium [Moles/Vol] 138 mmol/L Normal 136-145 [facility] Comment on above: Performed By: #### C BC, CMP, FE and TIBC, JAQUELINE, [id number] #### [place] [address] [place] #### METH, EPO #### [facility] , Transferrin [Mass/volume] in Serum or PlasmaOrdered By: Lilly Christianson on 04-13-2023 Transferrin [Mass/Vol] 184 mg/dL Low 203-362 [facility] Comment on above: Performed By: #### C BC, CMP, FE and TIBC, JAQUELINE, [id number] #### [facility] [address] [place] [address] #### METH, EPO #### [facility] , Urea nitrogen [Mass/volume] in Serum or PlasmaOrdered By: Lilly Christianson on 04-13-2023 Urea nitrogen [Mass/Vol] 19 mg/dL Normal 7-25 [facility] Comment on above: Performed By: #### C BC, CMP, FE and TIBC, JAQUELINE, [id number] #### [address] #### METH, EPO #### [facility] , Vit. B12/Folate Profileon Folate 4.7 ng/mL Low >5.9 [facility] Comment on above: Result Comment: Sherry te reference range: >5.9 ng/ml The WHO technical consultation on folate and vitamin b12 deficiencies has determined that folate concentrations less than 4 ng/ml are considered deficient. PERFORMED BY: [place] [address] PATHOLOGIST COURTESY BOOTH CASHIER YU ACOSTA M.D. Performed By: #### C BC, CMP, FE and TIBC, JAQUELINE, [id number] #### [address] #### METH, EPO #### [facility] , Vitamin B12 ser/plasOrdered By: Lilly Christianson on 04-13-2023 Cobalamin (Vitamin B12) [Mass/Vol] pg/mL High 180-914 [facility] Comment on above: Performed By: #### C BC, CMP, FE and TIBC, JAQUELINE, [id number] #### [place] [address] [place] #### METH, EPO #### [facility] , Complete Blood Count Auto Di ffon 01-17-2023 Basophils (Bld) [#/Vol] 0.1 10*3/uL Normal 0.0-0.2 [facility] Comment on above: Result Comment: PERF ORMED BY: [place] [address] PATHOLOGIST COURTESY BOOTH CASHIER YU ACOSTA M.D. Performed By: #### C BC, CMP, FE and TIBC, JAQUELINE, [id number] #### [address] #### METH, EPO #### [facility] , Basophils/100 WBC (Bld) 0.7 % Normal . [facility] Comment on above: Performed By: #### C BC, CMP, FE and TIBC, JAQUELINE, [id number] #### [address] #### METH, EPO #### [facility] , Eosinophils (Bld) [#/Vol] 0.2 10*3/uL Normal 0.0-0.45 [facility] Comment on above: Performed By: #### C BC, CMP, FE and TIBC, JAQUELINE, [id number] #### [address] #### METH, EPO #### [facility] , Eosinophils/100 WBC (Bld) 2.3 % Normal . [facility] Comment on above: Performed By: #### C BC, CMP, FE and TIBC, JAQUELINE, [id number] #### [address] #### METH, EPO #### [facility] , Erythrocyte distribution width (RBC) [Ratio] 14.8 % Normal 11.9-15.3 [facility] Comment on above: Performed By: #### C BC, CMP, FE and TIBC, JAQUELINE, [id number] #### [address] #### METH, EPO #### [facility] , Hematocrit (Bld) [Volume fraction] 42.8 % Normal 34.0-46.4 [facility] Comment on above: Performed By: #### C BC, CMP, FE and TIBC, JAQUELINE, [id number] #### [address] #### METH, EPO #### [facility] , Hemoglobin (Bld) [Mass/Vol] 14.2 g/dL Normal 11.8-15.4 [facility] Comment on above: Performed By: #### C BC, CMP, FE and TIBC, JAQUELINE, [id number] #### [place] [address] [place] #### METH, EPO #### [facility] , Lymphocytes (Bld) [#/Vol] 2.8 10*3/uL Normal 1.00-4.8 [facility] Comment on above: Performed By: #### C BC, CMP, FE and TIBC, JAQUELINE, [id number] #### [place] [address] [place] #### METH, EPO #### [facility] , Lymphocytes/100 WBC (Bld) 28.0 % Normal . [facility] Comment on above: Performed By: #### C BC, CMP, FE and TIBC, JAQUELINE, [id number] #### [place] [address] [place] #### METH, EPO #### [facility] , MCH (RBC) [Entitic mass] 30.3 pg Normal 24.7-34.3 [facility] Comment on above: Performed By: #### C BC, CMP, FE and TIBC, JAQUELINE, [id number] #### [place] [address] [place] #### METH, EPO #### [facility] , MCV (RBC) [Entitic vol] 90.9 fL Normal 80-100 [facility] Comment on above: Performed By: #### C BC, CMP, FE and TIBC, JAQUELINE, [id number] #### [place] [address] [place] #### METH, EPO #### [facility] , Mean Corpuscular HGB Conc 33.3 g/dL Normal 32.0-35.0 [facility] Comment on above: Performed By: #### C BC, CMP, FE and TIBC, JAQUELINE, [id number] #### [place] [address] [place] #### METH, EPO #### [facility] , Monocytes (Bld) [#/Vol] 0.8 10*3/uL Normal 0.0-0.8 [facility] Comment on above: Performed By: #### C BC, CMP, FE and TIBC, JAQUELINE, [id number] #### [place] [address] [place] #### METH, EPO #### [facility] , Monocytes/100 WBC (Bld) 8.3 % Normal . [facility] Comment on above: Performed By: #### C BC, CMP, FE and TIBC, JAQUELINE, [id number] #### [place] [address] [place] #### METH, EPO #### [facility] , Neutrophils (Bld) [#/Vol] 6.1 10*3/uL Normal 1.8-7.7 [facility] Comment on above: Performed By: #### C BC, CMP, FE and TIBC, JAQUELINE, [id number] #### [place] [address] [place] #### METH, EPO #### [facility] , Neutrophils/100 WBC (Bld) 60.7 % Normal . [facility] Comment on above: Performed By: #### C BC, CMP, FE and TIBC, JAQUELINE, [id number] #### [place] [address] [place] #### METH, EPO #### [facility] , NRBC% 0.1 /100{WBC} Normal 0-0.5 [facility] Comment on above: Performed By: #### C BC, CMP, FE and TIBC, JAQUELINE, [id number] #### [place] [address] [place] #### METH, EPO #### [facility] , Platelet mean volume (Bld) [Entitic vol] 9.0 fL Normal 6.3-10.7 [facility] Comment on above: Performed By: #### C BC, CMP, FE and TIBC, JAQUELINE, [id number] #### [address] #### METH, EPO #### [facility] , Platelets (Bld) [#/Vol] 194 10*3/uL Normal 150-450 [facility] Comment on above: Performed By: #### C BC, CMP, FE and TIBC, JAQUELINE, [id number] #### [place] [address] [place] #### METH, EPO #### [facility] , RBC (Bld) [#/Vol] 4.70 10*6/uL Normal 3.60-5.00 [facility] Comment on above: Performed By: #### C BC, CMP, FE and TIBC, JAQUELINE, [id number] #### [place] [address] [place] #### METH, EPO #### [facility] , WBC (Bld) [#/Vol] 10.0 10*3/uL Normal 3.8-11.6 [facility] Comment on above: Performed By: #### C BC, CMP, FE and TIBC, JAQUELINE, [id number] #### [address] #### METH, EPO #### [facility] , Comprehensive Metabolic Pane philipp 01-17-2023 Albumin [Mass/Vol] 3.9 g/dL Normal 3.5-5.7 [facility] Comment on above: Performed By: #### C BC, CMP, FE and TIBC, JAQUELINE, [id number] #### [place] [address] [place] #### METH, EPO #### [facility] , Albumin/Globulin [Mass ratio] 1.4 {ratio} Normal [facility] Comment on above: Performed By: #### C BC, CMP, FE and TIBC, JAQUELINE, [id number] #### [address] #### METH, EPO #### [facility] , ALP [Catalytic activity/Vol] 147 U/L High 34-104 [facility] Comment on above: Performed By: #### C BC, CMP, FE and TIBC, JAQUELINE, [id number] #### [address] #### METH, EPO #### [facility] , ALT [Catalytic activity/Vol] 19 U/L Normal 7-52 [facility] Comment on above: Performed By: #### C BC, CMP, FE and TIBC, JAQUELINE, [id number] #### [place] [address] [place] #### METH, EPO #### [facility] , Anion gap [Moles/Vol] 11.1 mmol/L Normal 6.0-15.0 [facility] Comment on above: Performed By: #### C BC, CMP, FE and TIBC, JAQUELINE, [id number] #### [place] [address] [place] #### METH, EPO #### [facility] , AST [Catalytic activity/Vol] 13 U/L Normal 13-39 [facility] Comment on above: Performed By: #### C BC, CMP, FE and TIBC, JAQUELINE, [id number] #### [place] [address] [place] #### METH, EPO #### [facility] , Bilirubin [Mass/Vol] 0.4 mg/dL Normal 0.3-1.0 [facility] Comment on above: Performed By: #### C BC, CMP, FE and TIBC, JAQUELINE, [id number] #### [place] [address] [place] #### METH, EPO #### [facility] , Calcium [Mass/Vol] 8.8 mg/dL Normal 8.6-10.3 [facility] Comment on above: Performed By: #### C BC, CMP, FE and TIBC, JAQUELINE, [id number] #### [place] [address] [place] #### METH, EPO #### [facility] , Chloride [Moles/Vol] 102 mmol/L Normal 98-107 [facility] Comment on above: Performed By: #### C BC, CMP, FE and TIBC, JAQUELINE, [id number] #### [place] [address] [place] #### METH, EPO #### [facility] , CO2 [Moles/Vol] 30.1 mmol/L Normal 21.0-31.0 [facility] Comment on above: Performed By: #### C BC, CMP, FE and TIBC, JAQUELINE, [id number] #### [place] [address] [place] #### METH, EPO #### [facility] , Creatinine [Mass/Vol] 1.10 mg/dL Normal 0.60-1.20 [facility] Comment on above: Performed By: #### C BC, CMP, FE and TIBC, JAQUELINE, [id number] #### [place] [address] [place] #### METH, EPO #### [facility] , Creatinine Clr Calc Pharmacy 70.45 Normal [facility] Comment on above: Performed By: #### C BC, CMP, FE and TIBC, JAQUELINE, [id number] #### [place] [address] [place] #### METH, EPO #### [facility] , GFR/1.73 sq M.predicted MDRD (S/P/Bld) [Vol rate/Area] 58.608 mL/min/{1.73_m2} Normal [facility] Comment on above: Performed By: #### C BC, CMP, FE and TIBC, JAQUELINE, [id number] #### [place] [address] [place] #### METH, EPO #### [facility] , Globulin (S) [Mass/Vol] 2.8 g/dL Normal [facility] Comment on above: Performed By: #### C BC, CMP, FE and TIBC, JAQUELINE, [id number] #### [address] #### METH, EPO #### [facility] , Glucose [Mass/Vol] 132 mg/dL High 70-100 [facility] Comment on above: Result Comment: [place] Glucose Reference Range is dependent on time and content of last meal. Glucose of more than 200 mg/dL in a nonstressed, ambulatory subject supports the diagnosis of Diabetes Mellitus. ADA recommended reference range Performed By: #### C BC, CMP, FE and TIBC, JAQUELINE, [id number] #### [place] [address] [place] #### METH, EPO #### [facility] , Potassium [Moles/Vol] 4.2 mmol/L Normal 3.5-5.1 [facility] Comment on above: Performed By: #### C BC, CMP, FE and TIBC, JAQUELINE, [id number] #### [place] [address] [place] #### METH, EPO #### [facility] , Protein [Mass/Vol] 6.7 g/dL Normal 6.4-8.9 [facility] Comment on above: Performed By: #### C BC, CMP, FE and TIBC, JAQUELINE, [id number] #### [place] [address] [place] #### METH, EPO #### [facility] , Sodium [Moles/Vol] 139 mmol/L Normal 136-145 [facility] Comment on above: Performed By: #### C BC, CMP, FE and TIBC, JAQUELINE, [id number] #### [place] [address] [place] #### METH, EPO #### [facility] , Urea nitrogen [Mass/Vol] 15 mg/dL Normal 7-25 [facility] Comment on above: Performed By: #### C BC, CMP, FE and TIBC, JAQUELINE, [id number] #### [place] [address] [place] #### METH, EPO #### [facility] , Erythropoetin (EPO), Serumon 01-17-2023 Erythropoetin (EPO), Serum 23.0 m[iU]/mL High 2.6-18.5 [facility] Comment on above: Result Comment: [employer] DxI 800 Immunoassay System Values obtained with different assay methods or kits cannot be used interchangeably. Results cannot be interpreted as absolute evidence of the presence or absence of malignant disease. Performed at: [address] [id number] Tube Former Operator: Hieu Willams PhD, Phone: [phone] PERFORMED BY: [place] [address] PATHOLOGIST COURTESY BOOTH CASHIER YU ACOSTA M.D. Performed By: #### C BC, CMP, FE and TIBC, JAQUELINE, [id number] #### [address] #### METH, EPO #### [facility] , Ferritinon 01-17-2023 Ferritin [Mass/Vol] 68.6 ng/mL Normal 11.0-306.8 [facility] Comment on above: Performed By: #### C BC, CMP, FE and TIBC, JAQUELINE, [id number] #### [address] #### METH, EPO #### [facility] , Iron and TIBC Profileon 12-23 % Iron Saturation 45.9 % Normal 20-50 [facility] Comment on above: Performed By: #### C BC, CMP, FE and TIBC, JAQUELINE, [id number] #### [place] [address] [place] #### METH, EPO #### [facility] , Iron [Mass/Vol] 129 ug/dL Normal 50-212 [facility] Comment on above: Performed By: #### C BC, CMP, FE and TIBC, JAQUELINE, [id number] #### [place] [address] [place] #### METH, EPO #### [facility] , Total Iron Binding Capacity 281 ug/dL Normal 255-450 [facility] Comment on above: Performed By: #### C BC, CMP, FE and TIBC, JAQUELINE, [id number] #### [place] [address] [place] #### METH, EPO #### [facility] , Transferrin [Mass/Vol] 201 mg/dL Low 203-362 [facility] Comment on above: Performed By: #### C BC, CMP, FE and TIBC, JAQUELINE, [id number] #### [facility] [address] [place] [address] #### METH, EPO #### [facility] , Methylmalonic Acidon 023 Methylmalonic Acid 224 Normal 0-378 [facility] Comment on above: Result Comment: This test was developed and its performance characteristics determined by [facility]. It has not been cleared or approved by the Food and Drug Administration. Performed at: [address] [id number] Tube Former Operator: Amara Coyne MD, Phone: [phone] Performed By: #### C BC, CMP, FE and TIBC, JAQUELINE, [id number] #### [address] #### METH, EPO #### [facility] , Serum or plasma erythropoiet in (EPO) measurement (units/volume)Ordered By: Lilly Christianson on 01-17-2023 Erythropoietin (EPO) Qn 23.0 mIU/mL 2.6-18.5 [facility] Comment on above: [employer] DxI 800 Immunoassay SystemValues obtained with different assay methods or kits cannotbe used interchangeably. Results cannot be interpreted asabsolute evidence of the presence or absence of malignantdisease.Performed at: [address] [id number] Director: Hieu Willams PhD, Phone: [phone] Serum or plasma methylmalona te measurement (moles/volume)Ordered By: Lilly Christianson on 01-17-2023 Methylmalonate [Moles/Vol] 224 nmol/L 0-378 [facility] Comment on above: This test was develo ped and its performance characteristicsdetermined by [employer]. It has not been cleared orapproved by the Food and Drug Administration.Performed at: [address] [id number] Director: Amara Coyne MD, Phone: [phone] Vit. B12/Folate Profileon Cobalamin (Vitamin B12) [Mass/Vol] 490 pg/mL Normal 180-914 [facility] Comment on above: Performed By: #### C BC, CMP, FE and TIBC, JAQUELINE, [id number] #### [address] #### METH, EPO #### [facility] , Folate 6.8 ng/mL Normal >5.9 [facility] Comment on above: Result Comment: Sherry te reference range: >5.9 ng/ml The WHO technical consultation on folate and vitamin b12 deficiencies has determined that folate concentrations less than 4 ng/ml are considered deficient. PERFORMED BY: [place] [address] PATHOLOGIST COURTESY BOOTH CASHIER YU ACOSTA M.D. Performed By: #### C BC, CMP, FE and TIBC, JAQUELINE, [id number] #### [address] #### METH, EPO #### [facility] , Complete Blood Count Auto Di ffon 10-22-2022 Basophils (Bld) [#/Vol] 0.1 10*3/uL Normal 0.0-0.2 [facility] Comment on above: Result Comment: PERF ORMED BY: [place] [address] PATHOLOGIST COURTESY BOOTH CASHIER YU ACOSTA M.D. Performed By: #### C BC, CMP, FE and TIBC, JAQUELINE, [id number] #### [address] #### METH, EPO #### [facility] , Basophils/100 WBC (Bld) 0.7 % Normal . [facility] Comment on above: Performed By: #### C BC, CMP, FE and TIBC, JAQUELINE, [id number] #### [place] [address] [place] #### METH, EPO #### [facility] , Eosinophils (Bld) [#/Vol] 0.4 10*3/uL Normal 0.0-0.45 [facility] Comment on above: Performed By: #### C BC, CMP, FE and TIBC, JAQUELINE, [id number] #### [place] [address] [place] #### METH, EPO #### [facility] , Eosinophils/100 WBC (Bld) 3.4 % Normal . [facility] Comment on above: Performed By: #### C BC, CMP, FE and TIBC, JAQUELINE, [id number] #### [address] #### METH, EPO #### [facility] , Erythrocyte distribution width (RBC) [Ratio] 15.8 % High 11.9-15.3 [facility] Comment on above: Performed By: #### C BC, CMP, FE and TIBC, JAQUELINE, [id number] #### [place] [address] [place] #### METH, EPO #### [facility] , Hematocrit (Bld) [Volume fraction] 39.3 % Normal 34.0-46.4 [facility] Comment on above: Performed By: #### C BC, CMP, FE and TIBC, JAQUELINE, [id number] #### [place] [address] [place] #### METH, EPO #### [facility] , Hemoglobin (Bld) [Mass/Vol] 12.8 g/dL Normal 11.8-15.4 [facility] Comment on above: Performed By: #### C BC, CMP, FE and TIBC, JAQUELINE, [id number] #### [place] [address] [place] #### METH, EPO #### [facility] , Lymphocytes (Bld) [#/Vol] 3.2 10*3/uL Normal 1.00-4.8 [facility] Comment on above: Performed By: #### C BC, CMP, FE and TIBC, JAQUELINE, [id number] #### [address] #### METH, EPO #### [facility] , Lymphocytes/100 WBC (Bld) 25.9 % Normal . [facility] Comment on above: Performed By: #### C BC, CMP, FE and TIBC, JAQUELINE, [id number] #### [place], [place] [address] [place] #### METH, EPO #### [facility] , MCH (RBC) [Entitic mass] 29.5 pg Normal 24.7-34.3 [facility] Comment on above: Performed By: #### C BC, CMP, FE and TIBC, JAQUELINE, [id number] #### [address] #### METH, EPO #### [facility] , MCV (RBC) [Entitic vol] 90.6 fL Normal 80-100 [facility] Comment on above: Performed By: #### C BC, CMP, FE and TIBC, JAQUELINE, [id number] #### [place] [address] [place] #### METH, EPO #### [facility] , Mean Corpuscular HGB Conc 32.6 g/dL Normal 32.0-35.0 [facility] Comment on above: Performed By: #### C BC, CMP, FE and TIBC, JAQUELINE, [id number] #### [place] [address] [place] #### METH, EPO #### [facility] , Monocytes (Bld) [#/Vol] 0.9 10*3/uL High 0.0-0.8 [facility] Comment on above: Performed By: #### C BC, CMP, FE and TIBC, JAQUELINE, [id number] #### [address] #### METH, EPO #### [facility] , Monocytes/100 WBC (Bld) 7.1 % Normal . [facility] Comment on above: Performed By: #### C BC, CMP, FE and TIBC, JAQUELINE, [id number] #### [address] #### METH, EPO #### [facility] , Neutrophils (Bld) [#/Vol] 7.9 10*3/uL High 1.8-7.7 [facility] Comment on above: Performed By: #### C BC, CMP, FE and TIBC, JAQUELINE, [id number] #### [place] [address] [place] #### METH, EPO #### [facility] , Neutrophils/100 WBC (Bld) 62.9 % Normal . [facility] Comment on above: Performed By: #### C BC, CMP, FE and TIBC, JAQUELINE, [id number] #### [place] [address] [place] #### METH, EPO #### [facility] , NRBC% 0.1 /100{WBC} Normal 0-0.5 [facility] Comment on above: Performed By: #### C BC, CMP, FE and TIBC, JAQUELINE, [id number] #### [place] [address] [place] #### METH, EPO #### [facility] , Platelet mean volume (Bld) [Entitic vol] 10.4 fL Normal 6.3-10.7 [facility] Comment on above: Performed By: #### C BC, CMP, FE and TIBC, JAQUELINE, [id number] #### [place] [address] [place] #### METH, EPO #### [facility] , Platelets (Bld) [#/Vol] 199 10*3/uL Normal 150-450 [facility] Comment on above: Performed By: #### C BC, CMP, FE and TIBC, JAQUELINE, [id number] #### [address] #### METH, EPO #### [facility] , RBC (Bld) [#/Vol] 4.34 10*6/uL Normal 3.60-5.00 [facility] Comment on above: Performed By: #### C BC, CMP, FE and TIBC, JAQUELINE, [id number] #### [place] [address] [place] #### METH, EPO #### [facility] , WBC (Bld) [#/Vol] 12.5 10*3/uL High 3.8-11.6 [facility] Comment on above: Performed By: #### C BC, CMP, FE and TIBC, JAQUELINE, [id number] #### [address] #### METH, EPO #### [facility] , Comprehensive Metabolic Pane philipp 10-22-2022 Albumin [Mass/Vol] 3.9 g/dL Normal 3.5-5.7 [facility] Comment on above: Performed By: #### C BC, CMP, FE and TIBC, JAQUELINE, [id number] #### [place] [address] [place] #### METH, EPO #### [facility] , Albumin/Globulin [Mass ratio] 1.5 {ratio} Normal [facility] Comment on above: Performed By: #### C BC, CMP, FE and TIBC, JAQUELINE, [id number] #### [facility] [address] [place] [address] [place] #### METH, EPO #### [facility] , ALP [Catalytic activity/Vol] 161 U/L High 34-104 [facility] Comment on above: Performed By: #### C BC, CMP, FE and TIBC, JAQUELINE, [id number] #### [facility] [address] [place] [address] [place] #### METH, EPO #### [facility] , ALT [Catalytic activity/Vol] 16 U/L Normal 7-52 [facility] Comment on above: Performed By: #### C BC, CMP, FE and TIBC, JAQUELINE, [id number] #### [place] [address] [place] #### METH, EPO #### [facility] , Anion gap [Moles/Vol] 13.9 mmol/L Normal 6.0-15.0 [facility] Comment on above: Performed By: #### C BC, CMP, FE and TIBC, JAQUELINE, [id number] #### [place] [address] [place] #### METH, EPO #### [facility] , AST [Catalytic activity/Vol] 13 U/L Normal 13-39 [facility] Comment on above: Performed By: #### C BC, CMP, FE and TIBC, JAQUELINE, [id number] #### [place] [address] [place] #### METH, EPO #### [facility] , Bilirubin [Mass/Vol] 0.3 mg/dL Normal 0.3-1.0 [facility] Comment on above: Performed By: #### C BC, CMP, FE and TIBC, JAQUELINE, [id number] #### [place] [address] [place] #### METH, EPO #### [facility] , Calcium [Mass/Vol] 8.9 mg/dL Normal 8.6-10.3 [facility] Comment on above: Performed By: #### C BC, CMP, FE and TIBC, JAQUELINE, [id number] #### [place] [address] [place] #### METH, EPO #### [facility] , Chloride [Moles/Vol] 100 mmol/L Normal 98-107 [facility] Comment on above: Performed By: #### C BC, CMP, FE and TIBC, JAQUELINE, [id number] #### [address] #### METH, EPO #### [facility] , CO2 [Moles/Vol] 28.4 mmol/L Normal 21.0-31.0 [facility] Comment on above: Performed By: #### C BC, CMP, FE and TIBC, JAQUELINE, [id number] #### [address] #### METH, EPO #### [facility] , Creatinine [Mass/Vol] 1.40 mg/dL High 0.60-1.20 [facility] Comment on above: Performed By: #### C BC, CMP, FE and TIBC, JAQUELINE, [id number] #### [place] [address] [place] #### METH, EPO #### [facility] , Creatinine Clr Calc Pharmacy 56.02 Normal [facility] Comment on above: Performed By: #### C BC, CMP, FE and TIBC, JAQUELINE, [id number] #### [place] [address] [place] #### METH, EPO #### [facility] , GFR/1.73 sq M.predicted MDRD (S/P/Bld) [Vol rate/Area] 44.155 mL/min/{1.73_m2} Normal [facility] Comment on above: Performed By: #### C BC, CMP, FE and TIBC, JAQUELINE, [id number] #### [place] [address] [place] #### METH, EPO #### [facility] , Globulin (S) [Mass/Vol] 2.6 g/dL Normal [facility] Comment on above: Performed By: #### C BC, CMP, FE and TIBC, JAQUELINE, [id number] #### [place] [address] [place] #### METH, EPO #### [facility] , Glucose [Mass/Vol] 281 mg/dL High 70-100 [facility] Comment on above: Result Comment: [place] Glucose Reference Range is dependent on time and content of last meal. Glucose of more than 200 mg/dL in a nonstressed, ambulatory subject supports the diagnosis of Diabetes Mellitus. ADA recommended reference range Performed By: #### C BC, CMP, FE and TIBC, JAQUELINE, [id number] #### [place] [address] [place] #### METH, EPO #### [facility] , Potassium [Moles/Vol] 4.3 mmol/L Normal 3.5-5.1 [facility] Comment on above: Performed By: #### C BC, CMP, FE and TIBC, JAQUELINE, [id number] #### [place] [address] [place] #### METH, EPO #### [facility] , Protein [Mass/Vol] 6.5 g/dL Normal 6.4-8.9 [facility] Comment on above: Performed By: #### C BC, CMP, FE and TIBC, JAQUELINE, [id number] #### [place] [address] [place] #### METH, EPO #### [facility] , Sodium [Moles/Vol] 138 mmol/L Normal 136-145 [facility] Comment on above: Performed By: #### C BC, CMP, FE and TIBC, JAQUELINE, [id number] #### [address] #### METH, EPO #### [facility] , Urea nitrogen [Mass/Vol] 17 mg/dL Normal 7-25 [facility] Comment on above: Performed By: #### C BC, CMP, FE and TIBC, JAQUELINE, [id number] #### [address] #### METH, EPO #### [facility] , Erythropoetin (EPO), Serumon 10-22-2022 Erythropoetin (EPO), Serum 31.7 m[iU]/mL High 2.6-18.5 [facility] Comment on above: Result Comment: [employer]om[employer] DxI 800 Immunoassay System Values obtained with different assay methods or kits cannot be used interchangeably. Results cannot be interpreted as absolute evidence of the presence or absence of malignant disease. Performed at: [address] [id number] Tube Former Operator: iHeu Willams PhD, Phone: [phone] PERFORMED BY: [place] [address] PATHOLOGIST COURTESY BOOTH CASHIER YU ACOSTA M.D. Performed By: #### C BC, CMP, FE and TIBC, JAQUELINE, [id number] #### [address] #### METH, EPO #### [facility] , Ferritinon 10-22-2022 Ferritin [Mass/Vol] 82.9 ng/mL Normal 11.0-306.8 [facility] Comment on above: Performed By: #### C BC, CMP, FE and TIBC, JAQUELINE, [id number] #### [address] #### METH, EPO #### [facility] , Iron and TIBC Profileon 1-2022 % Iron Saturation 34.3 % Normal 20-50 [facility] Comment on above: Performed By: #### C BC, CMP, FE and TIBC, JAQUELINE, [id number] #### [place] [address] [place] #### METH, EPO #### [facility] , Iron [Mass/Vol] 94 ug/dL Normal 50-212 [facility] Comment on above: Performed By: #### C BC, CMP, FE and TIBC, JAQUELINE, [id number] #### [place] [address] [place] #### METH, EPO #### [facility] , Total Iron Binding Capacity 274 ug/dL Normal 255-450 [facility] Comment on above: Performed By: #### C BC, CMP, FE and TIBC, JAQUELINE, [id number] #### [place] [address] [place] #### METH, EPO #### [facility] , Transferrin [Mass/Vol] 196 mg/dL Low 203-362 [facility] Comment on above: Performed By: #### C BC, CMP, FE and TIBC, JAQUELINE, [id number] #### [place] [address] [place] #### METH, EPO #### [facility] , Methylmalonic Acidon 023 Methylmalonic Acid 270 Normal 0-378 [facility] Comment on above: Result Comment: This test was developed and its performance characteristics determined by [facility] [facility]. It has not been cleared or approved by the Food and Drug Administration. Performed at: [address] [id number] Tube Former Operator: Amara Coyne MD, Phone: [phone] Performed By: #### C BC, CMP, FE and TIBC, JAQUELINE, [id number] #### [address] #### METH, EPO #### [facility] , Vit. B12/Folate Profileon Cobalamin (Vitamin B12) [Mass/Vol] pg/mL High 180-914 [facility] Comment on above: Performed By: #### C BC, CMP, FE and TIBC, JAQUELINE, [id number] #### [place] [address] [place] #### METH, EPO #### [facility] , Folate 5.7 ng/mL Low >5.9 [facility] Comment on above: Result Comment: Sherry te reference range: >5.9 ng/ml The WHO technical consultation on folate and vitamin b12 deficiencies has determined that folate concentrations less than 4 ng/ml are considered deficient. PERFORMED BY: [address] [place] [address] PATHOLOGIST COURTESY BOOTH CASHIER YU ACOSTA M.D. Performed By: #### C BC, CMP, FE and TIBC, JAQUELINE, [id number] #### [address] #### METH, EPO #### [facility] , CREATININE BLDon 10-07-2022 Creatinine [Mass/Vol] 1.06 mg/dL High 0.58-0.96 [facility] Comment on above: Order Comment: Speci men Type: BLOOD SPECIMEN Ordering Facility: [facility] Address: [address] [place] [address] Performed By: #### C RET1 #### [facility] CLIA [id number] [address] [place] [address] Creatinine and Glomerular filtration rate.predicted panel (S/P/Bld) 62 mL/min/1.73m??? Normal >=60 [facility] Comment on above: Order Comment: Speci men Type: BLOOD SPECIMEN Ordering Facility: [facility] Address: [address], [place] [address] Result Comment: Terri mated Glomerular Filtration Rate [...] GFR. Performed By: #### C RET1 #### [facility] CLIA [id number] [address] [place] [address] CREATININE BLDOrdered By: David Chavis on 10-07-2022 Creatinine [Mass/Vol] 1.06 mg/dL High 0.58 - 0.96 mg/dL [facility] GFR/1.73 sq M.predicted among non-blacks MDRD (S/P/Bld) [Vol rate/Area] 62 mL/min/{1.73_m2} - PINF [facility] Comment on above: Estimated Glomerular Filtration [...] Interpretation and review of laboratory results Abnormal [facility] CT KIDNEY WO/W IVCONon 10-07 CT KIDNEY WO/W IVCON * * *Final Report* * * DATE OF EXAM: Oct 07 2022 11:27AM [facility] 0546 - CT KIDNEY WO/W IVCON [...] No pulmonary parenchymal nodule or pleural effusion. [employer] Systems Administrator (topogram) images: No additional findings. IMPRESSION: 3.3 [...] any questions regarding this interpretation, please call [phone]. If you are unable to reach us at the number above, please feel free to contact [facility] eRadiology at [phone]. [id number] Normal [facility] CT Kidney WO and W contrast [...] any questions regarding this interpretation, please call [phone]. If you are unable to reach us at the number above, please feel free to contact [facility]iology at [phone]. DIVISION OF RADIOLOGY * * *Final Report* * * DATE OF EXAM: Oct 07 2022 11:27AM [facility] 0546 - CT KIDNEY WO/W IVCON [...] No pulmonary parenchymal nodule or pleural effusion. [employer] Systems Administrator (topogram) images: No additional findings. DIVISION OF RADIOLOGY Provider, [facility] - 10/07/2022 * * *Final Report* * * DATE OF EXAM: Oct 07 2022 11:27AM [facility] 0546 - CT KIDNEY WO/W IVCON [...] No pulmonary parenchymal nodule or pleural effusion. [employer] Systems Administrator (topogram) images: No additional findings. IMPRESSION IMPRESSION: [...] any questions regarding this interpretation, please call [phone]. If you are unable to reach us at the number above, please feel free to contact [facility]iology at [phone]. [facility] Radiology Study observation (narrative) [facility] CT Kidney WO and W contrast IVOrdered By: [facility] Provider on 10-07-2022 [facility] C. DIFF PCRon 06-18-2022 C. DIFFICILE PCR Negative Normal NEGATIVE [facility] Comment on above: Performed By: #### C DIFPOC #### [facility] [address] [place] [address] Dr. Naz Crouch Albumin [Mass/volume] in Ser um or PlasmaOrdered By: Joanne Brown on 06-16-2022 Albumin [Mass/Vol] 3.3 g/dL 2.9-4.4 [facility] IgA [Mass/volume] in Serum o r PlasmaOrdered By: Joanne Brown on 06-16-2022 IgA [Mass/Vol] 224 mg/dL 87-352 [facility] IgG [Mass/volume] in Serum o r PlasmaOrdered By: Joanne Brown on 06-16-2022 IgG [Mass/Vol] 1023 mg/dL [phone] [facility] IgM [Mass/volume] in Serum o r PlasmaOrdered By: Joanne Brown on 06-16-2022 IgM [Mass/Vol] 50 mg/dL 26-217 [facility] Comment on above: Performed at: [address] [id number] Director: Hieu Willams PhD, Phone: [phone] Immunoglobulin light chains. kappa.free [Mass/volume] in SerumOrdered By: Joanne Brown on 06-16-2022 Immunoglobulin light chains.kappa.free (S) [Mass/Vol] 47.9 mg/L 3.3-19.4 [facility] Immunoglobulin light chains. kappa.free/Immunoglobulin light chains.lambda.free [MassOrdered By: Joanne Brown on 06-16-2022 Immunoglobulin light chains.kappa.free/Immu noglobulin light chains.lambda.free (S) [Mass ratio] 1.89 0.26-1.65 [facility] Immunoglobulin light chains. lambda.free [Mass/volume] in Serum or PlasmaOrdered By: Joanne Brown on 06-16-2022 Immunoglobulin light chains.lambda.free [Mass/Vol] 25.3 mg/L 5.7-26.3 [facility] No Panel InformationOrdered By: Joanne Brown on 06-16-2022 Protein Electrophoresis M-Anam Not observed g/dL Not Observed [facility] Protein Electrophoresis Note See comment . [facility] Comment on above: Protein electrophore sis scan will follow via computer,mail, or sales and marketing assistant delivery.Performed at: [facility] [id number] Director: Hieu Willams PhD, Phone: [phone] Serum Immunofixation See comment . [facility] Comment on above: No monoclonality det ected. Protein [Mass/volume] in Ser um or PlasmaOrdered By: Joanne Brown on 06-16-2022 Protein [Mass/Vol] 6.4 g/dL 6.0-8.5 [facility] Serum globulin measurement ( mass/volume)Ordered By: Joanne Brown on 06-16-2022 Globulin (S) [Mass/Vol] 3.1 g/dL 2.2-3.9 [facility] Serum or plasma albumin/glob ulin mass ratioOrdered By: Joanne Brown on 06-16-2022 Albumin/Globulin [Mass ratio] 1.1 {ratio} 0.7-1.7 [facility] Serum or plasma alpha 1 glob ulin measurement by electrophoresis (mass/volume)Ordered By: Joanne Brown on 06-16-2022 Alpha 1 globulin Elph [Mass/Vol] 0.3 g/dL 0.0-0.4 [facility] Serum or plasma alpha 2 glob ulin measurement by electrophoresis (mass/volume)Ordered By: Joanne Brown on 06-16-2022 Alpha 2 globulin Elph [Mass/Vol] 1.0 g/dL 0.4-1.0 [facility] Serum or plasma beta globuli n measurement by electrophoresis (mass/volume)Ordered By: Joanne Lopezindia on 06-16-2022 Beta globulin Elph [Mass/Vol] 1.0 g/dL 0.7-1.3 [facility] Serum or plasma gamma globul in measurement by electrophoresis (mass/volume)Ordered By: Joanne Lopezindia on 06-16-2022 Gamma globulin Elph [Mass/Vol] 0.9 g/dL 0.4-1.8 [facility] Glucose Glucometer (BldC) [M ass/Vol]Ordered By: Bebo Sims on 06-02-2022 Glucose [Mass/Vol] 118 mg/dL [facility] Comment on above: Random Glucose Refer ence Range is dependent on time and content of last meal. Glucose of more than 200 mg/dL in a nonstressed, ambulatory subject supports the diagnosis of Diabetes Mellitus. CBC AUTO DIFFon 04-22-2022 BASO # 0.1 103/ul Normal 0.0-0.1 [facility] Comment on above: Performed By: #### C BC #### [facility] [address] [address] [address] Naz Crouch Basophils/100 WBC (Bld) 0.8 % Normal 0.2-2.0 [facility] Comment on above: Performed By: #### C BC #### [facility] [address] [address] [address] Naz Crouch EO # 0.3 103/ul Normal 0.0-0.7 [facility] Comment on above: Performed By: #### C BC #### [facility] [address] [address] [address] Naz Crouch Eosinophils/100 WBC (Bld) 2.2 % Normal 0.9-7.0 [facility] Comment on above: Performed By: #### C BC #### [facility] [address] [address] [address] Naz Crouch Erythrocyte distribution width (RBC) [Ratio] 20.0 % Critically high 11.0-15.0 [facility] Comment on above: Performed By: #### C BC #### [facility] [address] [place] [address] Dr. Naz Crouch Hematocrit (Bld) [Volume fraction] 27.6 % Critically low 36.0-48.0 [facility] Comment on above: Performed By: #### C BC #### [facility] [address] [place] [address] Dr. Naz Crouch Hemoglobin (Bld) [Mass/Vol] 7.3 g/dL Critically low 12.0-16.0 [facility] Comment on above: Performed By: #### C BC #### [facility] [address] [place] [address] Dr. Naz Crouch IG # 0.09 10e3/ul Critically high 0.00-0.03 [facility] Comment on above: Performed By: #### C BC #### [facility] [address] [place] [address] Dr. Naz Crouch IG % 0.7 % Critically high 0.0-0.5 [facility] Comment on above: Performed By: #### C BC #### [facility] [address] [place] [address] Dr. Naz Crouch LYMPH # 2.3 103/ul Normal 1.2-3.8 [facility] Comment on above: Performed By: #### C BC #### [facility] [address] [place] [address] Dr. Naz Crouch Lymphocytes/100 WBC (Bld) 17.8 % Critically low 20.5-60.0 [facility] Comment on above: Performed By: #### C BC #### [facility] [address] [place] [address] Dr. Naz Crouch MANUAL DIFF REQ NO Normal [facility] Comment on above: Performed By: #### C BC #### [facility] [address] [place] [address] Dr. Naz Crouch MCH (RBC) [Entitic mass] 18.3 pg Critically low 26.7-34.0 [facility] Comment on above: Performed By: #### C BC #### [facility] [address] [place] [address] Dr. Naz Crouch MCHC (RBC) [Mass/Vol] 26.4 g/dL Critically low 29.9-35.2 [facility] Comment on above: Performed By: #### C BC #### [facility] [address] [address] [address] Naz Crouch MCV (RBC) [Entitic vol] 69.2 fL Critically low 81.0-99.0 [facility] Comment on above: Performed By: #### C BC #### [facility] [address] [place] [address] Dr. Naz Crouch MONO # 0.8 103/ul Normal 0.3-0.8 [facility] Comment on above: Performed By: #### C BC #### [facility] [address] [place] [address] Dr. Naz Crouch Monocytes/100 WBC (Bld) 6.5 % Normal 1.7-12.0 [facility] Comment on above: Performed By: #### C BC #### [facility] [address] [place] [address] Dr. Naz Crouch NEUT # 9.3 103/ul Critically high 1.4-6.5 [facility] Comment on above: Performed By: #### C BC #### [facility] [address] [place] [address] Dr. Naz Crouch Neutrophils/100 WBC (Bld) 72.0 % Normal 43.0-75.0 [facility] Comment on above: Performed By: #### C BC #### [facility] [address] [place] [address] Dr. Naz Crouch Platelet mean volume (Bld) [Entitic vol] 9.4 fL Critically low 9.5-13.5 [facility] Comment on above: Performed By: #### C BC #### [facility] [address] [place] [address] Dr. Naz Crouch PLT 318 103/ul Normal 150-450 [facility] Comment on above: Performed By: #### C BC #### [facility] [address] [place] [address] Dr. Naz Crouch RBC 3.99 106/ul Critically low 4.20-5.40 [facility] Comment on above: Performed By: #### C BC #### [facility] [address] [place] [address] Dr. Naz Crouch WBC 13.0 103/ul Critically high 4.0-11.0 [facility] Comment on above: Performed By: #### C BC #### [facility] [address] [place] [address] Dr. Naz Crouch GLYCOHEMOGLOBIN A1Con 2022 ADA RECOMMENDATION SEE BELOW Normal [facility] Comment on above: Result Comment: ADA RECOMMENDED LIMIT 4.0 - 6.0 ADA THERAPEUTIC TARGET < 7.0 ACTION SUGGESTED > 7.0 Performed By: #### A 1C #### [facility] [address] [place] [address] Dr. Naz Crouch Glucose [Mass/Vol] 192 mg/dL Normal [facility] Comment on above: Performed By: #### A 1C #### [facility] [address] [place] [address] Dr. Naz Crouch HbA1c (Bld) [Mass fraction] 8.3 % Critically high 4.5-6.2 [facility] Comment on above: Performed By: #### A 1C #### [facility] [address] [place] [address] Dr. Naz Crouch MICROALBUMIN, RAND URon - mALB 4.7 mg/L Normal <=30.0 [facility] Comment on above: Performed By: #### M ALBR #### [facility] [address] [place] [address] Dr. Naz Crouch PROF 14(COMP METB)on 023 Albumin [Mass/Vol] 3.1 g/dL Critically low 3.4-5.0 Th [facility] Comment on above: Performed By: #### C MP, T4, TSH #### [facility] [address] [place] [address] Dr. Naz Crouch Albumin/Globulin [Mass ratio] 0.8 {ratio} Normal [facility] Comment on above: Performed By: #### C MP, T4, TSH #### [facility] [address] [address] [address] Naz Crouch ALP [Catalytic activity/Vol] 176 U/L Critically high 46-116 [facility] Comment on above: Performed By: #### C MP, T4, TSH #### [facility] [address] [address] [address] Naz Crouch ALT [Catalytic activity/Vol] 18 U/L Normal 14-59 [facility] Comment on above: Performed By: #### C MP, T4, TSH #### [facility] [address] [address] [address] Naz Crouch Anion gap [Moles/Vol] 12.9 mmol/L Normal Th [facility] Comment on above: Performed By: #### C MP, T4, TSH #### [facility] [address] [address] [address] Naz Crouch AST [Catalytic activity/Vol] 12 U/L Critically low 15-37 [facility] Comment on above: Performed By: #### C MP, T4, TSH #### [facility] [address] [address] [address] Naz Crouch Bilirubin [Mass/Vol] 0.2 mg/dL Normal 0.2-1.0 [facility] Comment on above: Performed By: #### C MP, T4, TSH #### [facility] [address] [address] [address] Naz Crouch Calcium [Mass/Vol] 8.8 mg/dL Normal 8.5-10.1 [facility] Comment on above: Performed By: #### C MP, T4, TSH #### [facility] [address] [address] [address] Naz Crouch Chloride [Moles/Vol] 104 mmol/L Normal 98-107 [facility] Comment on above: Performed By: #### C MP, T4, TSH #### [facility] [address] [address] [address] Naz Crouch CO2 [Moles/Vol] 27.5 mmol/L Normal 21.0-32.0 [facility] Comment on above: Performed By: #### C MP, T4, TSH #### [facility] [address] [place] [address] Dr. Naz Crouch Creatinine [Mass/Vol] 0.89 mg/dL Normal 0.55-1.02 [facility] Comment on above: Performed By: #### C MP, T4, TSH #### [facility] [address] [address] [address] Naz Crouch EGFR-AF BHUTANESE >60 Normal >=60 [facility] Comment on above: Performed By: #### C MP, T4, TSH #### [facility] [address] [place] [address] Dr. Naz Crouch EGFR-NON AF BHUTANESE >60 Normal >=60 [facility] Comment on above: Performed By: #### C MP, T4, TSH #### [facility] [address] [place] [address] Dr. Naz Crouch Globulin (S) [Mass/Vol] 3.9 g/dL Normal [facility] Comment on above: Performed By: #### C MP, T4, TSH #### [facility] [address] [place] [address] Dr. Naz Crouch Glucose [Mass/Vol] 206 mg/dL Critically high 74-106 T [facility] Comment on above: Performed By: #### C MP, T4, TSH #### [facility] [address] [place] [address] Dr. Naz Crouch Potassium [Moles/Vol] 4.4 mmol/L Normal 3.5-5.1 [facility] Comment on above: Performed By: #### C MP, T4, TSH #### [facility] [address] [place] [address] Dr. Naz Crouch Protein [Mass/Vol] 7.0 g/dL Normal 6.4-8.2 [facility] Comment on above: Performed By: #### C MP, T4, TSH #### [facility] [address] [place] [address] Dr. Naz Crouch Sodium [Moles/Vol] 140 mmol/L Normal 136-145 [facility] Comment on above: Performed By: #### C MP, T4, TSH #### [facility] [address] [place] [address] Dr. Naz Crouch Urea nitrogen [Mass/Vol] 15.0 mg/dL Normal 7.0-18.0 [facility] Comment on above: Performed By: #### C MP, T4, TSH #### [facility] [address] [place] [address] Dr. Naz Crouch Urea nitrogen/Creatinine [Mass ratio] 16.9 mg/mg Normal [facility] Comment on above: Performed By: #### C MP, T4, TSH #### [facility] [address] [place] [address] Dr. Naz Crouch T4on 04-22-2022 T4 [Mass/Vol] 4.60 ug/dL Critically low 4.80-13.90 [facility] Comment on above: Performed By: #### C MP, T4, TSH #### [facility] [address] [place] [address] Dr. Naz Crouch TSHon 04-22-2022 TSH 2.208 uIU/mL Normal 0.358-3.74 0 [facility] Comment on above: Performed By: #### C MP, T4, TSH #### [facility] [address] [place] [address] Kidney WO and [...] any questions regarding this interpretation, please call [phone]. If you are unable to reach us at the number above, please feel free to contact [facility] at [phone]. DIVISION OF RADIOLOGY * * *Final Report* * * DATE OF EXAM: Apr 05 2022 2:16PM [facility] 0546 - CT KIDNEY WO/W IVCON [...] or blastic osseous abnormality. Lower thorax: Unremarkable. Unix Systems Administrator (topogram) images: No additional findings. DIVISION OF RADIOLOGY Provider, [facility] - 04/06/2022 * * *Final Report* * * DATE OF EXAM: Apr 05 2022 2:16PM [facility] 0546 - CT KIDNEY WO/W IVCON [...] or blastic osseous abnormality. Lower thorax: Unremarkable. Unix Systems Administrator (topogram) images: No additional findings. IMPRESSION IMPRESSION: [...] any questions regarding this interpretation, please call [phone]. If you are unable to reach us at the number above, please feel free to contact [facility] eRadiology at [phone]. [facility] CT Kidney WO and W contrast IVOrdered By: [facility] Provider on 04-06-2022 [facility] CREATININE BLDOrdered By: Delphine Baez on 04-05-2022 Creatinine [Mass/Vol] 0.91 mg/dL 0.58 - 0.96 mg/dL [facility] GFR/1.73 sq M.predicted among non-blacks MDRD (S/P/Bld) [Vol rate/Area] 74 mL/min/{1.73_m2} - PINF [facility] Comment on above: Estimated Glomerular Filtration [...] Interpretation and review of laboratory results Normal [facility] CT KIDNEY WO/W IVCONon 04-05 [facility] CT Kidney WO and W contrast Gabriela 04-05-2022 Radiology Study observation (narrative) [facility] XR CHEST 2V FRONTAL/LATon [facility] XR Chest PA and Lateralon IMPRESSION: [...] any questions regarding this interpretation, please call [phone]. If you are unable to reach us at the number above, please feel free to contact [facility] eRadiology at [phone]. DIVISION OF RADIOLOGY * * *Final Report* [...] quadrant are noted. DIVISION OF RADIOLOGY Provider, Roger Royal - 04/05/2022 * * *Final Report* * [...] any questions regarding this interpretation, please call [phone]. If you are unable to reach us at the number above, please feel free to contact [facility] eRadiology at [phone]. [facility] Radiology Study observation (narrative) [facility] XR Chest PA and LateralOrder ed By: [facility] Provider on 04-05-2022 [facility] Ambulatory Visit Summaryon 0 03-05-2022 Ambulatory Visit Summary ELMER ELLIS :1965 Visit Date:03/05/2022 Ambulatory Visit Instructions Your Diagnosis Right renal mass Incomplete bladder emptying Tests Performed Urnls Dip Stick Auto w/o Microscopy POC 27759 Your Care Team Attending Physician - Jluis [...] Follow Up with VENKAT SAWYER, Jluis Jacinto, RAPHAEL When: Where: [address] [place] [address]- Someone Will Contact You Regarding These Appointments [facility] External Ambulatory Referral, Urology, [facility]. Renal mass, [...] Urnls Dip Stick Auto w/o Microscopy POC 17683 (03/05/2022) Bilirubin Urine Dipstick - 1+ Small Blood Urine Dipstick - Negative Glucose Urine Dipstick - 2+ 500 mg/dl Ketones Urine Dipstick - Trace - 5 mg/dl Leukocytes Urine Dipstick - Negative Nitrite Urine Dipstick - Negative Protein Urine Dipstick - 2+ (100 mg/dl) Specific [place] Urine Dipstick - >=1.030 Urine Appearance Urine [...] on the (more content not included)... Normal [facility] Patient Educationon 03-05-19 23 Patient Education [...] gives to you. In general: ? Take cwtw-jhg-avmqfxp and prescription medicines only as told by [...] 09/04/2014 Document Revised: 03/16/2018 Document Reviewed: 03/16/2018 [employer] Patient Education ? 2019 [employer]. [facility] Urology Office/Clinic Noteon 03-05-2022 Urology Office/Clinic Note [...] R partial nephrectomy. External referral placed to [facility]. Pt. understands her use of tobacco [...] Contact Information VENKAT SAWYER, Jluis Jacinto, URL [address] [place] [phone]- Additional Instructions: Referral for renal mass Patient [...] 11/21/2020 Recorde (more content not included)... Normal [facility] Comment on above: Result Comment: Elec tronically Signed By: Jluis ROBLEDO MD\.br\Date and Time Signed: 03/05/22 11:17 EST\.br\Electronically Co-Signed By: Sophy Simmons\.br\Date and Time Co-Signed: 03/05/22 11:10 EST\.br\Electronically Co-Signed By: Sophy Simmons\.br\Date and Time Co-Signed: 03/05/22 11:11 EST Lab Reportson 02-05-2022 Lab Reports [id number]#[id number]:127 [facility] RAD - CT Reporton 02-05-2022 RAD - CT Report [id number]:127 Normal [facility] RAD - CT Report [id number]#1.00CD:127 [facility] CT ABD/PELV W CONon 02-03-20 CT ABD/PELV [...] by: MICHOACANO MARTIN Date: 2022-02-02 08:28 Normal [facility] Reminderson 02-02-2022 Reminders - From: aThmina Hanson To: GIOVANNI Robledo; Sent: 07/29/2021 07:40:04 EDT Show up: 12/22/2021 07:40:00 EDT Subject: Ct scan Reminder/Recall Pt needs Ct scan ABD/Pelvis with contrast prior to Dec appt will send order to [facility]. [facility] never received her order will re fax to [facility] nothing at [facility] yet and unable to get ahold of CS pt will call to schedule she doesnt have insurance. CT done 02/01/2022 at [facility] will drop results into pt's chart has f/u 03/01/2022 Normal [facility] CREATININEon 02-01-2022 Creatinine [Mass/Vol] 1.00 mg/dL Normal 0.55-1.02 [facility] Comment on above: Performed By: #### C SERGEY #### [facility] [address] [address] [address] Naz Crouch EGFR-AF BHUTANESE >60 Normal >=60 [facility] Comment on above: Performed By: #### C SERGEY #### [facility] [address] [address] [address] Naz Crouch EGFR-NON AF BHUTANESE 57 mL/min/1.73m2 Critically low >=60 [facility] Comment on above: Performed By: #### C SERGEY #### [facility] [address] [address] [address] Naz Crouch Physician Orderon 01-11-2022 Physician Order [id number]#[id number]:127 Normal [facility] CNOVon 11-09-2021 CNOV Office Visit (AGPOB1 ) ELMER ELLIS ([id number]) 1965 F Date Time Provider Department 11/09/21 [...] mg by mouth twice daily. MV with Bep-Wejvyeno-Ipchja (CENTRUM SILVER) 0.4 mg-300 mcg- 250 mcg tab Take by mouth. insulin 75/25 lispro protamine/lispro units/mL (HUMALOG MIX 75-25,U-100,INSULN) 100 units/mL susp as directed. HYDROcodone-acetaminophen (NORCO) 5-325 mg per tablet hydrocodone 5 mg-acetaminophen 325 mg tablet TAKE 1 TO 2 TABLETS BY MOUTH EVERY DAY AT BEDTIME NEEDED knciublp-qjg-cckk-FA-lutein (CENTRUM SILVER WOMEN) 8 mg iron-400 mcg-300 [...] (more content not included)... [facility] (AGPOB1) ELMER ELLIS ([id number]) 1965 F Date Time Provider Department 10/13/21 LILLY TONY JAZMÍN During your visit today, we recorded the [...] bear any weight. Patient has taken 1 Raymond about an hour ago and said it [...] by mouth twice daily. - MV with Man-Tmwpjyvf-Coszya (CENTRUM SILVER) 0.4 mg-300 mcg- 250 mcg tab Take by mouth. - insulin 75/25 lispro protamine/lispro units/mL (HUMALOG MIX 75-25,U-100,INSULN) 100 units/mL susp as directed. - HYDROcodone-acetaminophen (NORCO) 5-325 mg per tablet hydrocodone 5 mg-acetaminophen 325 mg tablet TAKE 1 TO 2 TABLETS BY MOUTH EVERY DAY AT BEDTIME NEEDED - stgzlrbp-rje-pxpw-FA-lutein (CENTRUM SILVER WOMEN) 8 mg iron-400 mcg-300 [...] Encounter Status:Closed by FILOMENA MADRIGAL on 10/13/21 [facility] CNOVon 10-12-2021 CNOV Office Visit (AGPOB1 ) RHONDAELMER Gold ([id number]) 1965 F Date Time Provider Department 10/12/21 1:15 PM LILLY TONYB1 During your visit today, we recorded the following information about you: Respiration Weight Height 20/minute 117.9 kg 1.626 m Lilly Tony MD 10/19/2021 12:03 AM Signed ORTHOPAEDIC OFFICE NOTE CHIEF COMPLAINT: Follow-up left ankle fracture HISTORY OF PRESENT ILLNESS: Elmer Gold Rheacaio is a 55 year old female [...] mg by mouth twice daily. MV with Vzy-Cgevjokx-Ratggd (CENTRUM SILVER) 0.4 mg-300 mcg- 250 mcg tab Take by mouth. insulin 75/25 lispro protamine/lispro units/mL (HUMALOG MIX 75-25,U-100,INSULN) 100 units/mL susp as directed. HYDROcodone-acetaminophen (NORCO) 5-325 mg per tablet hydrocodone 5 mg-acetaminophen 325 mg tablet TAKE 1 TO 2 TABLETS BY MOUTH EVERY DAY AT BEDTIME NEEDED cytsrupk-ryr-yybp-FA-lutein (CENTRUM SILVER WOMEN) 8 mg iron-400 mcg-300 [...] (more content not included)... Normal [facility] CNOVon 09-21-2021 CNOV Office Visit (AGPOB1 ) ELMER ELLIS ([id number]) 1965 F Date Time Provider Department 09/21/21 [...] with nonweightbearing status. She will occasionally take Raymond for pain relief which is effective. She is also supplemented with xumo-ahi-gumoyva pain medications. Her medical history significant for Beatties, coronary artery disease, diabetes and associated lower extremity neuropathy, DVT requiring Plavix and Xarelto for anticoagulation. 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 She also has kidney cancer that is [...] by mouth twice daily. - MV with Qjt-Bsrgbtti-Refpxo (CENTRUM SILVER) 0.4 mg-300 mcg- 250 mcg tab Take by mouth. - insulin 75/25 lispro protamine/lispro units/mL (HUMALOG MIX 75-25,U-100,INSULN) 100 units/mL susp as directed. - HYDROcodone-acetaminophen (NORCO) 5-325 mg per tablet hydrocodone 5 mg-acetaminophen 325 mg tablet TAKE 1 TO 2 TABLETS BY MOUTH EVERY DAY AT BEDTIME NEEDED - yjwgqdzv-nwz-zdya-FA-lutein (CENTRUM SILVER WOMEN) 8 mg iron-400 mcg-300 [...] (more content not included)... Normal [facility] CNP[facility] Telephone (AGPOB1) RHONDAELMER Gold ([id number]) 1965 F Date Time Provider Department 09/16/21 [address] [address] During your visit today, we recorded the following information about you: Jared Alcantar Tobacco Blender [facility] 09/16/2021 9:05 AM Signed ----- Message [...] which facility was the patient seen at: [facility] / 09.12.2021 Was an appointment scheduled (Y/N): n Person calling if other than patient: n Return call to if other than patient: n Best contact number: [phone] Thank you, Peggy Saxena September 15, 2021 4:27 PM Filomena Madrigal 09/16/2021 10:18 AM Signed Called and spoke to patient regarding L ankle fracture OS 09/12/21. Patient was seen at [facility] ED after falling she fell in [...] Date: 09/16/2021 (None) Encounter Status:Closed by ERIKA SALDIVARARY JARED GARCIA on 09/16/21 [facility] ALLIED HEALTHon 09-12-2021 ALLIED HEALTH HNO ID: [id number] Author: RT Herman([place]) Service: Radiology Author Type: [...] IV DATA: Not applicable SIGNED BY: RT Herman([place]) September 12, 2021 2:38 PM [facility] ALLIED HEALTH HNO ID: [id number] Author: RT Alexandra([place]) Service: Radiology Author Type: Technologist Type: Allied [...] 12, 2021 12:21 PM Normal [facility] CONSULTon 09-12-2021 CONSULT HNO ID: [id number] Author: Stoney Bauer MD Service: Orthopaedic Surgery Author Type: Resident Type: Consults Filed: 09/12/2021 11:43 PM Note Text: Attestation signed by Lilly Tony MD at 09/13/2021 6:54 PM Lilly Tony M.D. Attending Staff, Department of Orthopedic Surgery [facility] Orthopaedic Surgery Consultation Note Reason for [...] in the last 72 hours. Invalid input(s): [facility] Imaging XR of left tib/fib, ankle, [...] 12, 2021 11:43 PM Normal [facility] ED NOTEon 09-12-2021 ED NOTE HNO ID: [id number] Author: Joi Mariscal RN Service: Emergency Medicine Author Type: Registered Nurse Type: ED Notes Filed: 09/12/2021 11:13 AM Note Text: X-ray notified pt ready for imaging. Normal [facility] ED PROV NOTEon 09-12-2021 ED PROV NOTE HNO ID: [id number] Author: Alexander Velázquez APRN.CARLO Service: Emergency Medicine [...] pain medication and follow up with her energy specialist that she already has seen previous. Patient in no acute distress vitals are stable. RETURN PRECAUTIONS Patient discharged from the Emergency Department. I do not feel that the patient's evaluation reveals any acute reason for admission at this time. I instructed them to either follow up with their primary care physicia (more content not included)... Normal [facility] XR ANKLE 1V LTon 09-12-2021 XR [...] alignment is otherwise stable. IMPRESSION: See above. Systems Architect: LILLY Transcribe Date/Time: Sep 12 2021 2:45P Dictated by : KEN MCKEON MD This examination was interpreted and the report reviewed and electronically signed by: KEN MCKEON MD on Sep 12 2021 2:46PM EST [id number] Normal [facility] XR ANKLE 3V AP/LAT/OBL LTon 09-12-2021 [...] Left foot first proximal phalangeal head fracture. Systems Architect: LILLY Transcribe Date/Time: Sep 12 2021 12:54P Dictated by : MOE SINGH MD This examination was interpreted and the report reviewed and electronically signed by: MOE ISNGH MD on Sep 12 2021 1:00PM EST [id number] Normal [facility] XR FOOT 3V AP/LAT/OBL LTon 0 [...] Left foot first proximal phalangeal head fracture. Systems Architect: PSCB Transcribe Date/Time: Sep 12 2021 12:54P Dictated by : MOE SINGH MD This examination was interpreted and the report reviewed and electronically signed by: MOE SINGH MD on Sep 12 2021 1:00PM EST [id number] Normal [facility] XR KNEE 2V AP/LAT LTon 09-12 [...] Left foot first proximal phalangeal head fracture. Systems Architect: [facility] Transcribe Date/Time: Sep 12 2021 12:54P Dictated by : MOE SINGH MD This examination was interpreted and the report reviewed and electronically signed by: MOE SINGH MD on Sep 12 2021 1:00PM EST [id number] Normal [facility] XR TIBIA FIBULA 2V AP/LAT LT [...] change regarding proximal fibular fracture. No dislocation. Systems Architect: PSCB Transcribe Date/Time: Sep 12 2021 3:23P Dictated by : NIMCO GREEN MD This examination was interpreted and the report reviewed and electronically signed by: NIMCO GREEN MD on Sep 12 2021 3:27PM EST [id number] Normal [facility] Formson 07-29-2021 Forms [id number]:127 Normal [facility] Physician Referralon 022 Physician Referral [id number]:127 Normal [facility] RAD - CT Reporton 07-29-2021 RAD - CT Report [id number]#[id number]:127 Normal [facility] Ambulatory Visit Summaryon 0 07-27-2021 Ambulatory [...] [facility] [address] [place] [address]- [phone] Medications What How Much When Instructions Unchanged [...] about calorie (more content not included)... Normal [facility] Patient Educationon 07-28-19 Patient Education Nutrition [...] (more content not included)... Normal [facility] Urology Office/Clinic Noteon 07-27-2021 Urology Office/Clinic Note Chief Complaint new pt referred for renal mass HPI Staff Elmer is a 55yr old new pt referred for Renal mass. Pt had CT of ABD/pel done at [facility] on 06/15/21. pt says she feels [...] When Contact Information VENKAT SAWYER, Jluis Jacinto, URSisi In 6 months 01/26/2022 [facility] [address] [place] [address] [phone] Additional Instructions: [address] scan Patient Education Renal Mass Calorie Counting for Weight Loss Tahmina Grant, personally scribed for Dr. Robledo on 07/27/2021 10:20:46. . Documentation recorded by the scribsisi gallardo, accurately reflects the services(s) I performed [...] SubCutaneous, BIDAC (more content not included)... Normal [facility] Comment on above: Result Comment: Elec tronically Signed By: Jluis ROBLEDO MD\.br\Date and Time Signed: 07/27/21 10:26 EDT\.br\Electronically Co-Signed By: Tahmina Hanson.br\Date and Time Co-Signed: 07/27/21 10:21 EDT GLUCOSE METERon 12-16-2020 Glucose [Mass/Vol] 216 mg/dL High 70-99 [facility] Comment on above: Result Comment: Fast ing GLUCOSE reference range has been updated per (ADA) [place] [employer]'s recommendation. 05/16/2018 Physician notified Performed By: #### L 500.73562 #### Test performed at: [address] [address] Glucose [Mass/Vol] 273 mg/dL High 70-99 [facility] Comment on above: Result Comment: Fast ing GLUCOSE reference range has been updated per (ADA) [place] [employer]'s recommendation. 05/16/2018 Physician notified Performed By: #### L 500.22093 #### Test performed at: [address] [address] OPERATIVE REPORTon OPERATIVE REPORT NAME: BRIAN ELLIS MR#: [id number] SURGEON: Malik Encarnacion DO DATE OF SURGERY: [...] up in 2 weeks. MALIK ENCARNACION DO GF/MODL/[id number] E/S: Malik Encarnacion DO 12/24/20 1255 Electronically Signed [facility] PT NAME: ELMER ELLIS MR#: [id number] [address] [place] [address] ACCT: [id number] : 65 OPERATIVE REPORT Normal [facility] MRI LUMBAR SP W & WO CONTRAS Ton 11-12-2020 MRI LUMBAR SP W & WO CONTRAST STUDY: MRI LUMBAR SP W WO CONTRAST; 11/12/2020 11:18 am INDICATION: LUMBAR POST-LAMINECTOMY SYNDROME. COMPARISON: Lumbar radiographs dated 09/02/2020 and MRI lumbar spine dated 10/31/2019. ACCESSION NUMBER(S): [id number] ORDERING CLINICIAN: Farhan Celeste TECHNIQUE: Multiplanar multisequence [...] granulation tissue components is again evident. Normal [facility] MRI LOW EXT ANY JNT WO CON L Ton 10-29-2020 MRI LOW EXT ANY JNT WO CON LT STUDY: MRI LOW EXT ANY JNT WO CON LT; ; 10/29/2020 11:42 am INDICATION: LEFT HIP PAIN. COMPARISON: None. ACCESSION NUMBER(S): [id number] ORDERING CLINICIAN: Farhan Celeste TECHNIQUE: MR imaging [...] hamstring tendinosis. No acute abnormality seen Normal [facility] LUMB SP COMP W FLEX/EXT 6 VW Son 09-02-2020 LUMB SP COMP W FLEX/EXT 6 VWS STUDY: LUMB SP COMP W FLEX/EXT 6 VWS ; 09/02/2020 11:01 am INDICATION: PAIN. COMPARISON: 10/17/2019 ACCESSION NUMBER(S): [id number] ORDERING CLINICIAN: Farhan Celeste FINDINGS: No acute [...] of the lumbar spine without instability. Normal [facility] MRA HEAD WO CONTRASTon 07-26 MRA HEAD WO CONTRAST [facility] Department of Radiology [address] [place] [id number] Patient Name: ELMER ELLIS : 1965 Sex: F Age: Race: White Pt. Location: 30 Patient Status: D Ordered Date: 06/17/2020 10:35:00 AM Completed Date: 07/26/2020 10:58 AM Requesting Provider: MALIK BENAVIDES V Attending Provider: MALIK BENAVIDES V Report Copy To: Signs & Symptoms: H93.A3 Pulsatile tinnitus, bilateral I10 History: Chrissy X1 Stent, R Leg, [facility] April 2020 [facility] auth# [id number] 06/25/20-08/09/20 *ER Comments: evaluate Exam: MRA HEAD [...] canals given the limitations of a large kabss-ux-ecxs imaging. IMPRESSION: * No aneurysm, thrombus or hemodynamically significant stenosis in the cerebral arteries. Electronically signed: Sharona Carrillo M.D.. Transcribed by: [email or web address], User Resident: Electronically Signed by: SHARONA CARRILLO @ 07/29/2020 08:07 AM Normal [facility] Comment on above: Order Comment: evalu ate MRI BRAIN WO CONTRASTon MRI BRAIN WO CONTRAST [facility] Department of Radiology [address] [place] [id number] Patient Name: ELMER ELLIS : 1965 Sex: F Age: Race: White Pt. Location: 30 Patient Status: D Ordered Date: 06/17/2020 10:35:00 AM Completed Date: 07/26/2020 10:58 AM Requesting Provider: MALIK BENAVIDES V Attending Provider: MALIK BENAVIDES V Report Copy To: Signs & Symptoms: H93.A3 Pulsatile tinnitus, bilateral I10 History: Chrissy X1 Stent, R Leg, [facility] April 2020 [facility] AUTH # [id number] 06/24/2020-08/08/2020 [id number] / Comments: evaluate Exam: MRI BRAIN WO [...] well as the dural venous sinuses. Large zbxyh-qs-ebnc evaluation of the internal auditory canals is negative for mass. IMPRESSION: * No acute intracranial findings. * Scattered, mild burden of nonspecific T2 weighted/FLAIR hyperintensities. Differential diagnosis includes sequelae of chronic small vessel ischemic disease, Lyme disease, vasculitis, chronic migraines, among others. Electronically signed: Sharona Carrillo M.D.. Transcribed by: [email or web address], User Resident: Electronically Signed by: SHARONA CARRILLO @ 07/29/2020 07:57 AM Normal [facility] Comment on above: Order Comment: evalu ate Vital Signs Date Time Vital Sign Value Performing Clinician Facility 05-03-2024 11:54-0400 Body height 162.6 cm Pm 2 [facility] 05-03-2024 11:54-0400 Body mass index (BMI) [Ratio] 44.63 kg/m2 Pm 2 [facility] 05-03-2024 11:54-0400 Body weight 117.94 kg Pm 2 [facility] 04-30-2024 13:05-0400 Body height 162.6 cm Dori Wesley NP Work Phone: [facility] 04-30-2024 13:05-0400 Body mass index (BMI) [Ratio] 27.12 kg/m2 Dori Wesley NP Work Phone: [facility] 04-30-2024 13:05-0400 Body weight 71.67 kg Dori Wesley NP Work Phone: [facility] 04-17-2024 13:05-0500 Body mass index (BMI) [Ratio] 48.78 kg/m2 Jenny Aichholz APRON CLEANER Work Phone: [facility] 04-17-2024 13:05-0500 Body temperature 98.71 [degF] Jenny Jamilaholz APRON CLEANER Work Phone: [facility] 04-17-2024 13:05-0500 Body weight 128.91 kg Jenny Shamekahholz APRON CLEANER Work Phone: [facility] 04-17-2024 13:05-0500 Diastolic blood pressure 72 mm[Hg] Jenny Shamekahholz APRON CLEANER Work Phone: [facility] 04-17-2024 13:05-0500 Heart rate 76 /min Jenny Shamekahholz APRON CLEANER Work Phone: [facility] 04-17-2024 13:05-0500 Respiratory rate 20 /min Jenny Shamekahholz APRON CLEANER Work Phone: [facility] 04-17-2024 13:05-0500 SaO2% (BldA) [Mass fraction] 97 % Jenny Jamilaholz APRON CLEANER Work Phone: [facility] 04-17-2024 13:05-0500 Systolic blood pressure 120 mm[Hg] Jenny Aichholz APRON CLEANER Work Phone: [facility] 01-16-2024 13:50-0500 Body height 162.6 cm Jenny Shamekahholz APRON CLEANER Work Phone: [facility] 01-16-2024 13:50-0500 Body mass index (BMI) [Ratio] 47.82 kg/m2 Jenny Shamekahholz APRON CLEANER Work Phone: [facility] 01-16-2024 13:50-0500 Body temperature 98.1 [degF] Jenny Shamekahholz APRON CLEANER Work Phone: [facility] 01-16-2024 13:50-0500 Body weight 126.37 kg Jenny Shamekahholz APRON CLEANER Work Phone: [facility] Comment on above: with right boot 01-16-2024 13:50-0500 Diastolic blood pressure 76 mm[Hg] Jenny Borrego APRON CLEANER Work Phone: [facility] 01-16-2024 13:50-0500 Heart rate 69 /min Jenny Borrego APRON CLEANER Work Phone: [facility] 01-16-2024 13:50-0500 Respiratory rate 19 /min Jenny Borrego APRON CLEANER Work Phone: [facility] 01-16-2024 13:50-0500 SaO2% (BldA) [Mass fraction] 97 % Jenny Borrego APRON CLEANER Work Phone: [facility] 01-16-2024 13:50-0500 Systolic blood pressure 110 mm[Hg] Jenny Borrego APRON CLEANER Work Phone: [facility] 12-14-2023 14:50-0400 Body height 162.6 cm Kendell Mahogany DO Work Phone: [facility] 12-14-2023 14:50-0400 Body mass index (BMI) [Ratio] 46.86 kg/m2 Kendell Mahogany DO Work Phone: [facility] 12-14-2023 14:50-0400 Body weight 123.83 kg Kendell Mahogany DO Work Phone: [facility] 12-14-2023 14:50-0400 Diastolic blood pressure 78 mm[Hg] Kendell Mahogany DO Work Phone: [facility] 12-14-2023 14:50-0400 Heart rate 74 /min Kendell Mahogany DO Work Phone: [facility] 12-14-2023 14:50-0400 SaO2% (BldA) [Mass fraction] 94 % Kendell Mahogany DO Work Phone: [facility] 12-14-2023 14:50-0400 Systolic blood pressure 104 mm[Hg] Kendell Mahogany DO Work Phone: [facility] 10-20-2023 14:07-0400 Body height 162.6 cm Jenny Borrego APRON CLEANER Work Phone: [facility] 10-20-2023 14:07-0400 Body mass index (BMI) [Ratio] 47.68 kg/m2 Jenny Borrego APRON CLEANER Work Phone: [facility] 10-20-2023 14:07-0400 Body temperature 98.01 [degF] Jenny Borrego APRON CLEANER Work Phone: [facility] 10-20-2023 14:07-0400 Body weight 126.01 kg Jenny Borrego APRON CLEANER Work Phone: [facility] 10-20-2023 14:07-0400 Diastolic blood pressure 78 mm[Hg] Jenny Borrego APRON CLEANER Work Phone: [facility] 10-20-2023 14:07-0400 Heart rate 74 /min Jennymagalis Borrego APRON CLEANER Work Phone: [facility] 10-20-2023 14:07-0400 Respiratory rate 19 /min Jenny Borrego APRON CLEANER Work Phone: [facility] 10-20-2023 14:07-0400 SaO2% (BldA) [Mass fraction] 97 % Jenny Borreog APRON CLEANER Work Phone: [facility] 10-20-2023 14:07-0400 Systolic blood pressure 118 mm[Hg] Jenny Borrego APRON CLEANER Work Phone: [facility] 03-24-2023 16:45-0500 Body height 162.6 cm Jenny Borrego APRON CLEANER Work Phone: [facility] 03-24-2023 16:45-0500 Body mass index (BMI) [Ratio] 45.93 kg/m2 Jennymagalis Borrego APRON CLEANER Work Phone: [facility] 03-24-2023 16:45-0500 Body temperature 97.11 [degF] Jenny Borrego APRON CLEANER Work Phone: [facility] 03-24-2023 16:45-0500 Body weight 121.38 kg Jenny Borrego APRON CLEANER Work Phone: [facility] 03-24-2023 16:45-0500 Diastolic blood pressure 70 mm[Hg] Jenny Araujoz APRON CLEANER Work Phone: [facility] 03-24-2023 16:45-0500 Heart rate 76 /min Jennymagalis Araujoz APRON CLEANER Work Phone: [facility] 03-24-2023 16:45-0500 Respiratory rate 20 /min Jenny Gaylez APRON CLEANER Work Phone: [facility] 03-24-2023 16:45-0500 SaO2% (BldA) [Mass fraction] 97 % Jennymagalis Borrego APRON CLEANER Work Phone: [facility] 03-24-2023 16:45-0500 Systolic blood pressure 112 mm[Hg] Jennymagalis Borrego APRON CLEANER Work Phone: [facility] 10-15-2022 12:17-0400 Body weight 117.03 kg Lex Pickens MD Work Phone: [facility] 07-30-2022 09:06-0400 Body temperature 97.8 [degF] DO [facility] Work Phone: [facility] 07-30-2022 09:06-0400 Body weight 115.66 kg DO [facility] Work Phone: [facility] 07-30-2022 09:06-0400 Diastolic blood pressure 72 mm[Hg] DO [facility] Work Phone: [facility] 07-30-2022 09:06-0400 Heart rate 82 /min DO [facility] Work Phone: [facility] 07-30-2022 09:06-0400 Respiratory rate 16 /min DO [facility] Work Phone: [facility] 07-30-2022 09:06-0400 SaO2% (BldA) [Mass fraction] 97 % DO [facility] Work Phone: [facility] 07-30-2022 09:06-0400 Systolic blood pressure 128 mm[Hg] DO [facility] Work Phone: [facility] 06-16-2022 09:38-0400 Body height 162.56 cm DO [facility] Work Phone: [facility] 06-02-2022 15:31-0400 Diastolic blood pressure 66 mm[Hg] DO [facility] Work Phone: [facility] 06-02-2022 15:31-0400 Heart rate 81 /min DO [facility] Work Phone: [facility] 06-02-2022 15:31-0400 Respiratory rate 18 /min DO [facility] Work Phone: [facility] 06-02-2022 15:31-0400 SaO2% (BldA) [Mass fraction] 96 % DO [facility] Work Phone: [facility] 06-02-2022 15:31-0400 Systolic blood pressure 114 mm[Hg] DO [facility] Work Phone: [facility] 06-02-2022 15:01-0400 Inhaled oxygen flow rate 8 L/min DO [facility] Work Phone: [facility] 06-02-2022 12:09-0400 Body height 162.56 cm DO [facility] Work Phone: [facility] 06-02-2022 12:09-0400 Body temperature 98.7 [degF] DO [facility] Work Phone: [facility] 06-02-2022 12:09-0400 Body weight 117.93 kg DO [facility] Work Phone: [facility] 03-16-2022 13:36-0500 Body height 162.6 cm Lex Pickens MD Work Phone: [facility] 03-16-2022 13:36-0500 Body weight 120.2 kg Lex Pickens MD Work Phone: [facility] 03-16-2022 13:36-0500 Diastolic blood pressure 80 mm[Hg] Lex Pickens MD Work Phone: [facility] 03-16-2022 13:36-0500 Heart rate 87 /min Lex Pickens MD Work Phone: [facility] 03-16-2022 13:36-0500 Systolic blood pressure 128 mm[Hg] Lex Pickens MD Work Phone: [facility] 10-12-2021 12:53-0400 Body height 162.6 cm Lilly Tony MD Work Phone: [facility] 10-12-2021 12:53-0400 Body weight 117.94 kg Lilly Tony MD Work Phone: [facility] 10-12-2021 12:53-0400 Respiratory rate 20 /min Lilly Tony MD Work Phone: [facility] 07-27-2021 09:31-0400 Blood Pressure Location Jluis ROBLEDO [facility] 07-27-2021 09:31-0400 Diastolic blood pressure 73 mm[Hg] Jluis ROBLEDO [facility] 07-27-2021 09:31-0400 Heart rate 89 /min Jluis ROBLEDO [facility] 07-27-2021 09:31-0400 Systolic blood pressure 120 mm[Hg] Jluis ROBLEDO [facility] Encounters Encounter Date Encounter Type Care Provider Facility Start: 05-03-2024 End: 05-03-2024 Clinisync Result Encounter Jenny Borrego NP Work Phone: [facility] External Department Unsolicited Start: 05-03-2024 End: 05-03-2024 Clinisync Result Encounter Jenny Salima MASTERSON Work Phone: [facility] External Department Unsolicited Start: 05-03-2024 End: 05-03-2024 Preprocedural examination done [address] Start: 05-03-2024 End: 05-03-2024 Orders Only Jenny Salima MASTERSON Work Phone: [facility] Comment on above: Hyperkalemia (Primar y Dx); Bilateral lower extremity edema Preop examination (P rimary Dx); Hypertension, unspecified type; Factor 5 Leiden mutation, heterozygous ([facility]); Asthma, unspecified asthma severity, unspecified whether complicated, unspecified whether persistent; Coronary artery disease involving [place] coronary artery of [place] heart, unspecified whether angina present; Stage 3a chronic kidney disease ([facility]) Start: 04-30-2024 [facility] Start: 04-30-2024 End: 04-30-2024 External Result Encounter Dori Wesley NP Work Phone: [facility] External Department Unsolicited Start: 04-30-2024 End: 04-30-2024 External Result Encounter Dori Wesley NP Work Phone: [facility] External Department Unsolicited Start: 04-30-2024 End: 04-30-2024 Patient encounter procedure Dori Wesley NP Work Phone: [facility] Comment on above: Preop examination (P rimary Dx); Complex tear of medial meniscus of right knee, unspecified whether old or current tear, subsequent encounter Start: 04-30-2024 End: 04-30-2024 Preprocedural examination done Dori Wesley NP Work Phone: [facility] Healthcare Work Phone: Start: 04-30-2024 End: 04-30-2024 ambulatory DORI WESLEY Not Available Start: 04-27-2024 End: 04-27-2024 ambulatory [facility] Start: 04-27-2024 End: 04-27-2024 Encounter for other preprocedural examination [facility] Start: 04-25-2024 End: 04-25-2024 Orders Only Dori Wesley STEEL MANAGER-MEDICAL BILLING AND CODING SPECIALIST Work Phone: [facility] Comment on above: Encounter for other preprocedural examination Start: 04-25-2024 End: 04-25-2024 Patient encounter status Dori Wesley STEEL MANAGER-MEDICAL BILLING AND CODING SPECIALIST Work Phone: [facility] Start: 04-18-2024 Preoperative state Dori Wesley NP Work Phone: [facility] Start: 04-17-2024 End: 04-17-2024 ambulatory JENNY SHAMEKALdLIMA Not Available Start: 04-17-2024 End: 04-17-2024 Patient encounter procedure Jenny Borrego APRON CLEANER Work Phone: [facility] Comment on above: Encounter for annual wellness visit (AWV) in Medicare patient (Primary Dx); Malignant neoplasm of unspecified kidney, except renal pelvis ([facility]); Type 2 diabetes mellitus with diabetic chronic kidney disease ([facility]); Chronic kidney disease, stage 3a ([facility]) ([facility]); Morbid (severe) obesity due to excess calories ([facility]); Body mass index (BMI) 45.0-49.9, adult ([facility]); Type 2 diabetes mellitus with diabetic neuropathy, with long-term current use of insulin ([facility]); Unspecified chronic bronchitis ([facility]); CAD in [place] artery ([facility]); PAD (peripheral artery disease) ([facility]); Primary hypertension ([facility]); Bilateral lower extremity edema; Age-related osteoporosis without current pathological fracture ([facility]); Class 3 severe obesity due to excess calories with serious comorbidity and body mass index (BMI) of 45.0 to 49.9 in adult ([facility]); Type 2 diabetes mellitus with retinopathy of both eyes, with long-term current use of insulin, macular edema presence unspecified, unspecified retinopathy severity ([facility]); Type 2 diabetes mellitus with insulin therapy ([facility]); Anxiety and depression ([facility]); Encounter for screening mammogram for malignant neoplasm of breast; Tobacco user; Mixed hyperlipidemia ([facility]); Environmental and seasonal allergies; Gastroesophageal reflux disease without esophagitis; Factor V Leiden ([facility]) Start: 04-13-2024 End: 04-18-2024 Telephone encounter Jr. Malik Beal DO Work Phone: [facility] Start: 04-06-2024 End: 04-06-2024 Bamboo flowsheet Jr. Malik Beal DO Work Phone: [facility] Start: 04-06-2024 End: 04-06-2024 Bamboo flowsheet Jr. Malik Beal DO Work Phone: [facility] Start: 04-06-2024 End: 04-06-2024 Office outpatient visit 40 minutes Jr. Malik Dinhdeja DO Work Phone: [facility] Comment on above: Acute pain of right knee (Primary Dx); Complex tear of medial meniscus of right knee, unspecified whether old or current tear, initial encounter Start: 04-06-2024 End: 04-06-2024 ambulatory MALIK PEREZ Not Available Start: 03-24-2024 End: 03-24-2024 Refill Jenny Aicjennyz APRON CLEANER Work Phone: [facility] Comment on above: Type 2 diabetes netta itus with insulin therapy ([facility]) (Primary Dx) Start: 03-19-2024 End: 03-20-2024 Refill Jenny Aichholz APRON CLEANER Work Phone: [facility] Comment on above: Type 2 diabetes netta itus with diabetic neuropathy, with long- term current use of insulin ([facility]) Start: 03-15-2024 End: 03-15-2024 Refill Jenny Aichholz APRON CLEANER Work Phone: [facility] Comment on above: Atherosclerotic hear t disease of [place] coronary artery without angina pectoris ([facility]) Start: 03-11-2024 End: 03-11-2024 Refill Jenny Borrego APRON CLEANER Work Phone: [facility] Comment on above: Anemia, unspecified; Type 2 diabetes mellitus without complications ([facility]) Start: 03-09-2024 End: 03-09-2024 Bamboo flowsheet Jr. Malik Beal DO Work Phone: [facility] Start: 03-09-2024 End: 03-09-2024 Bamboo flowsheet Jr. Malik Beal DO Work Phone: [facility] Start: 03-09-2024 End: 03-09-2024 Office outpatient visit 25 minutes Jr. Malik Beal DO Work Phone: [facility] Comment on above: Acute pain of right knee (Primary Dx); Ruptured, tendon, Achilles, right, subsequent encounter; Primary osteoarthritis of right knee Start: 03-09-2024 End: 03-09-2024 ambulatory MALIK PEREZ Not Available Start: 02-28-2024 End: 03-05-2024 Telephone encounter Ben Raymond PT Work Phone: [facility] Comment on above: PT Initial Eval; fu (Tried patient, tried , and was only able to lm w/ daughter. 3rd attempt); No responce Start: 02-27-2024 End: 02-27-2024 Bamboo flowsheet Dori Wesley APRON CLEANER Work Phone: [facility] Start: 02-27-2024 End: 02-27-2024 Bamboo flowsheet Dori Wesley APRON CLEANER Work Phone: [facility] Start: 02-27-2024 End: 02-27-2024 Office outpatient visit 25 minutes Dori Wesley APRON CLEANER Work Phone: [facility] Comment on above: Primary osteoarthrit is [...] Start: 02-20-2024 End: 02-21-2024 Refill Jenny Borrego APRON CLEANER Work Phone: [facility] Comment on above: Factor V Leiden (CMS /HCC); Hypertriglyceridemia ([facility]) Start: 02-09-2024 End: 02-09-2024 ambulatory DEONNA Mccray APLING Not Available Start: 02-08-2024 End: 02-13-2024 Telephone encounter Deonna Mccray Aplyinka APRON CLEANER Work Phone: [facility] Start: 01-30-2024 End: 01-30-2024 Bamboo flowsheet Deonna Mccray Apling APRON CLEANER Work Phone: [facility] Start: 01-30-2024 End: 01-30-2024 Bamboo flowsheet Deonna Mccray Apling APRON CLEANER Work Phone: [facility] Start: 01-30-2024 End: 01-30-2024 Office outpatient visit 15 minutes Deonna Finn APRON CLEANER Work Phone: [facility] Comment on above: Ruptured, tendon, Ac hilles, right, subsequent encounter (Primary Dx) Start: 01-30-2024 End: 01-30-2024 ambulatory DEONNA Mccray APLING Not Available Start: 01-25-2024 End: 01-25-2024 ambulatory KENDELL JOHNSONNER Not Available Start: 01-16-2024 End: 01-16-2024 Bamboo flowsheet Jenny Salima APRON CLEANER Work Phone: [facility] Start: 01-16-2024 End: 01-16-2024 Bamboo flowsheet Jenny Salima APRON CLEANER Work Phone: [facility] Start: 01-16-2024 End: 01-16-2024 ambulatory JENNY AICHHOLZ Not Available Start: 01-16-2024 End: 01-16-2024 Office outpatient visit 25 minutes Jenny Borrego NP Work Phone: [facility] Comment on above: Type 2 diabetes netta itus with diabetic neuropathy, with long- term current use of insulin ([facility]) (Primary Dx); Type 2 diabetes mellitus with diabetic chronic kidney disease ([facility]); Chronic kidney disease, stage 3a (HCC) ([facility]); ELENA (obstructive sleep apnea); PAD (peripheral artery disease) ([facility]); CAD in [place] artery ([facility]); Gastroesophageal reflux disease without esophagitis; Primary hypertension ([facility]); Type 2 diabetes mellitus with insulin therapy ([facility]); Class 3 severe obesity with serious comorbidity and body mass index (BMI) of 45.0 to 49.9 in adult, unspecified obesity type ([facility]); Type 2 diabetes mellitus with retinopathy of both eyes, with long-term current use of insulin, macular edema presence unspecified, unspecified retinopathy severity ([facility]); Factor V Leiden ([facility]); Encounter for screening mammogram for malignant neoplasm of breast Start: 01-10-2024 End: 01-11-2024 Refill Jenny Borrego NP Work Phone: [facility] Comment on above: Chronic back pain, u nspecified back location, unspecified back pain laterality; Environmental and seasonal allergies; Type 2 diabetes mellitus with diabetic neuropathy, with long-term current use of insulin ([facility]) Start: 12-20-2023 End: 12-20-2023 Bamboo flowsheet Lisette Cummins DO Work Phone: [facility] Start: 12-20-2023 End: 12-20-2023 Bamboo flowsheet Lisette Cummins DO Work Phone: [facility] Start: 12-20-2023 End: 12-20-2023 ambulatory LISETTE CUMMINS Not Available Start: 12-20-2023 End: 12-20-2023 Office outpatient visit 15 minutes Lisette Cummins DO Work Phone: [facility] Comment on above: Rupture of right Ach illes tendon, subsequent encounter (Primary Dx); Right knee pain, unspecified chronicity; Arthritis of right knee Start: 12-14-2023 End: 12-14-2023 Office outpatient new 45 minutes Kendell Vides DO Work Phone: [facility] Comment on above: Benign paroxysmal po sitional vertigo, unspecified laterality (Primary Dx); ELENA (obstructive sleep apnea); Class 3 severe obesity with serious comorbidity and body mass index (BMI) of 45.0 to 49.9 in adult, unspecified obesity type (CMS/HCC); Diabetic peripheral neuropathy associated with type 2 diabetes mellitus (CMS/HCC); Hypersomnia; Dizziness and giddiness Start: 12-14-2023 End: 12-14-2023 ambulatory KENDELL VIDES Not Available Start: 12-14-2023 End: 12-14-2023 Bamboo flowsheet Kendell Vides DO Work Phone: [facility] Start: 12-14-2023 End: 12-14-2023 Bamboo flowsheet Kendell Vides DO Work Phone: [facility] Start: 12-11-2023 End: 12-11-2023 Refill Jenny Borrego APRON CLEANER Work Phone: [facility] Comment on above: Environmental and se asonal allergies Start: 11-24-2023 End: 11-24-2023 Refill Jenny Borrego APRON CLEANER Work Phone: [facility] Comment on above: Dizziness and giddin ess (Primary Dx) Start: 11-23-2023 End: 11-23-2023 Refill Jenny Borrego APRON CLEANER Work Phone: [facility] Comment on above: Type 2 diabetes netta itus with diabetic neuropathy, unspecified (CMS/HCC); Diabetic neuropathy, painful (CMS/HCC); Anxiety and depression (CMS/HCC) Start: 11-22-2023 End: 11-22-2023 Bamboo flowsheet Lisette Cummins DO Work Phone: [facility] Start: 11-22-2023 End: 11-22-2023 Bamboo flowsheet Lisette Cummins DO Work Phone: [facility] Start: 11-22-2023 End: 11-22-2023 ambulatory LISETTE CUMMINS Not Available Start: 11-22-2023 End: 11-22-2023 Office outpatient visit 25 minutes Lisette Cummins DO Work Phone: [facility] Comment on above: Acute right ankle pa in (Primary Dx); Achilles tendon rupture, right, initial encounter Start: 11-21-2023 End: 11-22-2023 Refill Jenny Aichholz APRON CLEANER Work Phone: [facility] Comment on above: Anemia, unspecified Start: 11-20-2023 End: 11-20-2023 Refill Jenny Aichholz APRON CLEANER Work Phone: [facility] Comment on above: Bilateral lower extr emity edema; Gastroesophageal reflux disease without esophagitis Start: 11-12-2023 End: 11-14-2023 Refill Jenny Aichholz APRON CLEANER Work Phone: [facility] Comment on above: Hypertriglyceridemia ([facility]) Start: 11-10-2023 End: 11-10-2023 Refill Jenny Aichholz APRON CLEANER Work Phone: [facility] Comment on above: Type 2 diabetes netta itus with diabetic neuropathy, with long- term current use of insulin ([facility]); Type 2 diabetes mellitus without complications ([facility]) Start: 10-20-2023 End: 10-20-2023 Bamboo flowsheet Jenny Aichholz APRON CLEANER Work Phone: [facility] Start: 10-20-2023 End: 10-20-2023 Bamboo flowsheet Jenny Aichholz APRON CLEANER Work Phone: [facility] Start: 10-20-2023 End: 10-20-2023 Office outpatient visit 25 minutes Jenny Aichholz APRON CLEANER Work Phone: [facility] Comment on above: Type 2 diabetes netta itus with insulin therapy (CMS/HCC) (Primary Dx); Peripheral vascular disease, unspecified (CMS/HCC); Atherosclerosis of aorta (CMS/HCC); Diabetic neuropathy, painful (CMS/HCC); Type 2 diabetes mellitus with diabetic neuropathy, with long-term current use of insulin (CMS/HCC); CAD in [place] artery (CMS/HCC); Bilateral lower extremity edema; Class 3 severe obesity with serious comorbidity and body mass index (BMI) of 45.0 to 49.9 in adult, unspecified obesity type (CMS/HCC) Start: 10-20-2023 End: 10-20-2023 ambulatory JENNY SALIMA Not Available Start: 10-19-2023 End: 10-19-2023 ambulatory [facility] Start: 09-21-2023 End: 09-21-2023 ambulatory [facility] Start: 08-18-2023 End: 08-18-2023 ambulatory [facility] Start: 08-08-2023 ambulatory Joanne Lopezericrubén Facility:[facility] Start: 07-12-2023 End: 07-12-2023 ambulatory LISETTE CUMMINS Not Available Start: 06-23-2023 End: 06-23-2023 ambulatory JENNY BORREGO Not Available Start: 06-15-2023 End: 06-15-2023 [facility] Lex Pickens MD Work Phone: Urology Comment on above: Other specified diso rders of kidney and ureter (Primary Dx); Renal mass; Morbid obesity (HCC); Type 2 diabetes mellitus with diabetic neuropathy, with long-term current use of insulin ([facility]) Start: 05-17-2023 End: 05-17-2023 ambulatory LEX PICKENS Facility:[facility] Start: 05-17-2023 End: 05-17-2023 Subsequent hospital visit by physician Arrival Time Radiology Work Phone: [facility] Comment on above: Renal mass, right [N 28.89] Start: 04-28-2023 Telephone encounter Angie marin APRN.MEDICAL BILLING AND CODING SPECIALIST Work Phone: Hematology/Oncology Comment on above: Orders Start: 04-13-2023 End: 04-13-2023 ambulatory DO Dawit Ba Work Phone: [facility] Work Phone: Start: 04-13-2023 End: 04-13-2023 Patient encounter procedure DO Dawit Ba Work Phone: [facility] [place] Work Phone: Start: 04-13-2023 Registered Recurring DO Maverick s Deondre Work Phone: [facility] Work Phone: Start: 04-05-2023 Refill Jenny Aicjennyz APRON CLEANER Work Phone: [facility] Comment on above: Acute non-recurrent sinusitis of other sinus (Primary Dx) Start: 03-24-2023 End: 03-24-2023 Assay of hemosiderin, quant Jenny Salima APRON CLEANER Work Phone: [facility] Start: 03-24-2023 End: 03-24-2023 Patient encounter procedure Jenny Aicdanilo APRON CLEANER Work Phone: [facility] Comment on above: Encounter for annual wellness visit (AWV) in Medicare patient (Primary Dx); Type 2 diabetes mellitus with diabetic neuropathy, with long-term current use of insulin (CMS/HCC); CAD in [place] artery (CMS/HCC); Tobacco user; Malignant neoplasm of kidney, unspecified laterality (CMS/HCC); Type 2 diabetes mellitus with insulin therapy (CMS/HCC); Routine general medical examination at health care facility Start: 03-24-2023 Refill Jenny Aichholz APRON CLEANER Work Phone: [facility] Comment on above: CAD in [place] artery (CMS/HCC) (Primary Dx) Start: 10-15-2022 End: 10-15-2022 [facility] Lex Pickens MD Work Phone: Urology Comment on above: Renal mass, right (P rimary Dx); Family history of renal cancer; Morbid obesity (HCC); Current every day smoker; Other specified disorders of kidney and ureter Start: 10-15-2022 End: 10-15-2022 ambulatory LEX PICKENS Facility:[facility] Start: 10-07-2022 End: 10-07-2022 ambulatory LEX PICKENS Facility:[facility] Start: 10-07-2022 End: 10-07-2022 Subsequent hospital visit by physician Arrival Time Radiology Work Phone: [facility] Comment on above: Other specified diso rders of kidney and ureter [N28.89] Start: 06-18-2022 End: 06-19-[address] DAWIT BA Facility: Start: 06-02-2022 End: 06-02-2022 Admission to same day surgery center DO Dawit Ba Work Phone: [facility] [place] Start: 06-02-2022 End: 06-02-2022 ambulatory DO Dawit Ba Work Phone: [facility] Work Phone: Start: 04-22-2022 End: 04-23-[address] DAWIT BA Facility: Start: 04-09-2022 End: 04-10-2022 [facility] Lex Picekns MD Work Phone: Urology Comment on above: [...] V Leiden (HCC); Coronary artery disease involving [place] heart without angina pectoris, unspecified vessel or lesion type; Smoker; Morbid obesity (HCC); Other specified disorders of kidney and ureter; Renal mass Start: 03-05-2022 End: 03-06-2022 ambulatory MD Jluis ROBLEDO Facility:[facility] Start: 03-05-2022 End: 03-05-2022 Patient encounter procedure Jluis ROBLEDO [facility] Start: 02-01-2022 End: 02-02-[address] DAWIT BA Facility: Start: 11-09-2021 End: 11-09-2021 ambulatory DAWIT BA SR Facility:[facility] Start: 10-13-2021 Telephone encounter Lilly pruitt MD Work Phone: [facility] Comment on above: Patient Update Start: 10-12-2021 End: 10-12-2021 ambulatory DAWIT BA Facility:[facility] Start: 10-12-2021 End: 10-12-2021 Patient encounter procedure Lilly Tony MD Work Phone: [facility] Comment on above: Closed fracture of l eft ankle, initial encounter (Primary Dx) Start: 09-21-2021 End: 09-21-2021 ambulatory LILLY TONY Facility:[facility] Start: 09-16-2021 Telephone encounter Ag Orth Work Phone: [facility] Comment on above: ER F/U Start: 09-12-2021 End: 09-12-2021 Emergency department patient visit DAWIT BA Facility:[facility] Start: 09-03-[address] DAWIT BA Facili ty:[facility] Start: 07-27-2021 End: 07-28-2021 ambulatory MD Jluis ROBLEDO Facility:[facility] Start: 07-27-2021 End: 07-27-2021 Patient encounter procedure Jluis ROBLEDO [facility] Start: 06-24-2021 ambulatory MD Jluis ROBLEDO Facil ity:[facility] [place] Procedures Date Procedure Procedure Detail Performing Clinician Start: 05-03-2024 MM TOMOSYNTHESIS SCREENING BI Jenny beckett APRON CLEANER Work Phone: Start: 05-03-2024 ALL BASIC METABOLIC PANEL Jenny Borrego APRON CLEANER Work Phone: Start: 05-03-2024 Mammography Jenny Borrego APRON CLEANER Work Phone: Start: 04-30-2024 Complete blood count with white cell differential, automated Dori Wesley APRON CLEANER Work Phone: Start: 04-17-2024 Hemoglobin glycosylated a1c Jenny harrington APRON CLEANER Work Phone: Start: 02-27-2024 Radiologic examination knee 1/2 views Dori Wesley APRON CLEANER Work Phone: Start: 01-16-2024 Hemoglobin glycosylated a1c Jenny harrington APRON CLEANER Work Phone: Start: 12-20-2023 Arthrocentesis aspir&/inj major jt/bursa w/o Lisette Cummins DO Work Phone: Start: 05-17-2023 Ct abdomen w/o & w/contrast material Lex Pickens MD Work Phone: Start: 05-17-2023 CREATININE BLD Angie Mcclellan APRN.MEDICAL BILLING AND CODING SPECIALIST Work Phone: Start: 11-19-2022 Mammography Jenny Borrego APRON CLEANER Work Phone: Start: 10-07-2022 Ct abdomen w/o & w/contrast material Lex Pickens MD Work Phone: Start: 10-07-2022 CREATININE BLD Christel Mendoza MD Work Phone: Start: 06-02-2022 Esophagogastroduodenoscopy DO Dawit Nugent use Work Phone: Start: 06-02-2022 Colonoscopy Jenny Borrego APRON CLEANER Work Phone: Start: 04-05-2022 Ct abdomen w/o & w/contrast material Judson uQiroga MD Work Phone: Start: 04-05-2022 Radiologic exam chest 2 views Judson russell MD Work Phone: Start: 04-05-2022 CREATININE BLD Judson Quiroga MD Work Phone: Abdominal hysterectomy Tatiana ROBLEDO Appendectomy Jluis ROBLEDO Bilateral tubal ligation Elayne ROBLEDO Cholecystectomy Jluis LAU Plan of Treatment Date Care Activity Detail Author Start: 12-19-2033 DTaP,Tdap and Td Vaccines (2 - Td or Tdap) DTaP,Tdap and Td Vaccines (2 - Td or Tdap) [facility] Start: 06-02-2032 Screening for malign ant neoplasm of colon [facility] Start: 07-28-2025 Diabetes Screening Diabetes Screenin [facility] Start: 05-03-2025 Adult BMI Screening Adult BMI Screen ing [facility] Start: 05-03-2025 Screening for malign ant neoplasm of breast Mammogram [facility] Start: 05-03-2025 Tobacco Screening Tobacco Screening [facility] Start: 04-18-2025 End: 04-18-2025 Patient encounter procedure 04/18/2025 11:00 AM EST Office Visit [facility] [address] [place] [address] Jenny Borrego, ZELALEM [address] [place] [address] [facility] Start: 04-17-2025 Medicare Annual Wellness (AWV) Medicare Annual Wellness (AWV) [facility] Start: 10-18-2024 Urine screening for protein Diabetes: Urine Protein Screening [facility] Start: 09-14-2024 Urine screening for protein Diabetes: Urine Protein Screening [facility] Start: 07-17-2024 End: 07-17-2024 Patient encounter procedure 07/17/2024 1:00 PM EDT Office Visit [facility] [address] [place] [address] Jenny Borrego, ZELALEM [address] [place] [address] [facility] Start: 07-15-2024 Hemoglobin A1c measurement Diabetes: Hemoglobin A1C [facility] Start: 05-30-2024 End: 05-30-2024 Patient encounter procedure 05/30/2024 9:30 AM EDT Office Visit [facility] [address] [place] [address] Nimco Varela, [place] [address] [facility] [address] [place] [address] [facility] Start: 05-22-2024 End: 05-22-2024 Patient encounter procedure 05/22/2024 10:00 AM EDT Office Visit [facility] [address] [place] [address] Nimco Varela PA [address] [facility] [address] [place] [address] [facility] Start: 05-08-2024 End: 05-08-2024 Admission to same day surgery center 05/08/2024 1:30 PM EDT - 05/08/2024 2:30 PM EDT Surgery [facility] [address] [place] [id number] Malik Beal Jr., DO [address] [facility] [address] [place] [address] ARTHROSCOPIC MENISCECTOMY KNEE [04581 (CPT )] [facility] Comment on above: ARTHROSCOPIC MENISCE CTOMY KNEE [05246 (CPT )] Start: 05-08-2024 End: 05-08-2024 Arthrs kne surg w/meniscectomy med/lat w/shvg ARTHROSCOPIC MENISCECTOMY KNEE right knee medial meniscal tear 05/08/2024 1:30 PM EDT [facility] Start: 05-08-2024 Subsequent hospital visit by physician 05/08/2024 1:30 PM EDT Hospital Encounter [facility] [address] [place] [id number] Malik Beal Jr., DO [address] [place] [address] [facility] Start: 05-03-2024 End: 05-03-2025 Potassium [Moles/volume] in Serum or Plasma Potassium Lab Routine Hyperkalemia Expected: 05/03/2024 (Approximate), Expires: 05/03/2025 [facility] Work Phone: Comment on above: Expected: 05/03/2024 (Approximate), Expires: 05/03/2025 Start: 04-30-2024 End: 04-30-2024 Patient encounter procedure 04/30/2024 1:00 PM EDT Office Visit [facility] [address] [facility] [place] [phone] Dori Wesley, APRON CLEANER [address] [place] [address] [facility] Start: 04-25-2024 End: 04-25-2025 Basic metabolic 1998 panel - Serum or Plasma Basic metabolic panel Lab Routine Preop examination Expected: 04/25/2024 (Approximate), Expires: 04/25/2025 [facility] Comment on above: Expected: 04/25/2024 (Approximate), Expires: 04/25/2025 Start: 04-25-2024 End: 04-25-2025 Basic metabolic 2000 panel - Serum or Plasma Basic Metabolic Panel Lab Routine Encounter for other preprocedural examination Expected: 04/25/2024, Expires: 04/25/2025 [facility] Work Phone: Comment on above: Expected: 04/25/2024 , Expires: 04/25/2025 Start: 04-25-2024 End: 04-25-2025 CBC W Auto Differential panel - Blood CBC and differential Lab Routine Preop examination Expected: 04/25/2024 (Approximate), Expires: 04/25/2025 [facility] [employer] Work Phone: Comment on above: Expected: 04/25/2024 (Approximate), Expires: 04/25/2025 Start: 04-25-2024 End: 04-25-2025 Comprehensive metabolic 2000 panel - Serum or Plasma [facility] Work Phone: Comment on above: Expected: 04/25/2024 , Expires: 04/25/2025 Expected: 04/25/2024 (Approximate), Expires: 04/25/2025 Start: 04-25-2024 End: 04-25-2025 ECG 12 lead ECG 12 lead ECG Routine Preop examination Expected: 04/25/2024 (Approximate), Expires: 04/25/2025 [facility] [employer] Comment on above: Expected: 04/25/2024 (Approximate), Expires: 04/25/2025 Start: 04-17-2024 End: 04-17-2025 Basic metabolic 1998 panel - Serum or Plasma Basic metabolic panel Lab Routine Primary hypertension ([facility]) Type 2 diabetes mellitus with insulin therapy ([facility]) Expected: 04/17/2024 (Approximate), Expires: 04/17/2025 [facility] [employer] Work Phone: Comment on above: Expected: 04/17/2024 (Approximate), Expires: 04/17/2025 Start: 04-17-2024 End: 04-17-2025 DXA Skeletal system Views for bone density DEXA bone density Imaging Routine Age-related osteoporosis without current pathological fracture ([facility]) Expected: 04/17/2024 (Approximate), Expires: 04/17/2025 [facility] [employer] Comment on above: Expected: 04/17/2024 (Approximate), Expires: 04/17/2025 Start: 04-17-2024 Hemoglobin A1c measurement Diabetes: Hemoglobin A1C [facility] Start: 04-17-2024 End: 04-17-2024 Patient encounter procedure 04/17/2024 1:00 PM EST Office Visit [facility] [address] [place] [address] Jenny Borrego, ZELALEM [address] [place] [address] [facility] Start: 04-06-2024 End: 04-06-2024 [...] Support 02/28/2024 8:15 AM EST Clinical Support [facility] [address] [place] [phone] [facility] Start: 02-27-2024 End: 02-27-2024 Clinical Support [facility] Comment on above: Arrived Start: 02-21-2024 End: 02-21-2024 Professional / ancillary services management 02/21/2024 10:45 AM EST Ancillary Procedure [facility] [address] [place] [id number] [facility] Start: 02-08-2024 End: 02-07-2025 MR Knee - right WO contrast MR knee right wo IV contrast Imaging Routine Internal derangement of right knee Expected: 02/08/2024 (Approximate), Expires: 02/07/2025 [facility] Work Phone: Comment on above: Expected: 02/08/2024 (Approximate), Expires: 02/07/2025 Start: 02-06-2024 End: 02-06-2024 Patient encounter procedure 02/06/2024 10:00 AM EST Office Visit [facility] [address] [place] [address] Kelley Luis NP [address] [place] [facility] Start: 02-01-2024 End: 02-01-2024 Patient encounter procedure 02/01/2024 8:45 AM EST Office Visit [facility] [address] [place] [address] Deonna Finn, APRON CLEANER [address] [place] [address] [facility] Start: 01-30-2024 End: 01-29-2025 [...] [address] [place] [phone] Deonna Finn, APRON CLEANER [address] [place] [address] Arrived [facility] Comment on above: Arrived Start: 01-16-2024 End: 03-17-2025 MG Breast - bilateral Screening Bilateral screening mammogram Imaging Routine Encounter for screening mammogram for malignant neoplasm of breast Expected: 01/16/2024 (Approximate), Expires: 03/17/2025 [facility] Work Phone: Comment on above: Expected: 01/16/2024 (Approximate), Expires: 03/17/2025 Start: 01-16-2024 End: 01-16-2024 Patient encounter procedure 01/16/2024 1:40 PM EST Office Visit [facility] [address] [place] [address] Jenny Borrego NP [address] [place] [address] [facility] Start: 01-09-2024 End: 01-09-2024 Professional / ancillary services management 01/09/2024 10:45 AM EST Ancillary Procedure [facility] [address] [place] [address] [facility] Start: 12-20-2023 End: 12-20-2023 Patient encounter procedure 12/20/2023 10:45 AM EDT Office Visit [facility] [address] [place] [address] Lisette Cummins DO [address] [place] [address] [facility] Start: 12-16-2023 Hemoglobin A1c measurement Diabetes: Hemoglobin A1C [facility] Start: 12-14-2023 End: 12-14-2023 Patient encounter procedure [facility] Comment on above: Dizziness and giddin ess Start: 12-14-2023 End: 12-13-2024 Home sleep test Home sleep test Sleep Center Routine ELENA (obstructive sleep apnea) Expected: 12/14/2023 (Approximate), Expires: 12/13/2024 [facility] Work Phone: Comment on above: Expected: 12/14/2023 (Approximate), Expires: 12/13/2024 Start: 12-14-2023 End: 12-13-2024 Vestibular test (VNG) Vestibular test (VNG) Neurology Routine Benign paroxysmal positional vertigo, unspecified laterality Expected: 12/14/2023 (Approximate), Expires: 12/13/2024 [facility] Comment on above: Expected: 12/14/2023 (Approximate), Expires: 12/13/2024 Start: 11-20-2023 Screening for malign ant neoplasm of breast Mammogram [facility] Start: 10-23-2023 COVID-19 Vaccine () COVID-19 Vaccine () [facility] Start: 10-23-2023 Covid-19 Vaccine () Covid-19 Vaccine () [facility] Start: 10-23-2023 Covid-19 Vaccine () Covid-19 Vaccine () [facility] Start: 10-23-2023 Influenza [facility] Start: 10-20-2023 Glaucoma screening Diabetes: R etinopathy Screening [facility] Start: 10-20-2023 End: 10-20-2023 Patient encounter procedure 10/20/2023 2:00 PM EDT Office Visit [facility] [address] [place] [phone] Jenny Borrego NP [address] [place] [phone] Peripheral vascular disease, unspecified (CMS/HCC); Atherosclerosis of aorta (CMS/HCC) [facility] Comment on above: Peripheral vascular disease, unspecified (CMS/HCC); Atherosclerosis of aorta (CMS/HCC) Start: 10-12-2023 Hemoglobin A1c measurement HbA1C [facility] Start: 09-28-2023 Urine screening for protein Diabetes: Urine Protein Screening [facility] Start: 06-23-2023 End: 06-23-2023 Patient encounter procedure 06/23/2023 10:30 AM EDT Office Visit [facility] [address] [place] [phone] Jenny Borrego NP [address] [place] [phone] [facility] Start: 05-17-2023 End: 08-16-2023 CREATININE BLD CREATININE BLD Lab Routine Renal mass Expected: 05/17/2023 (Approximate), Expires: 08/16/2023 [facility] Work Phone: Comment on above: Expected: 05/17/2023 (Approximate), Expires: 08/16/2023 Start: 04-22-2023 End: 03-24-2024 Hemoglobin A1c measurement Hemoglobin A1c Lab Routine Type 2 diabetes mellitus with diabetic neuropathy, with long-term current use of insulin ([facility]) Expected: 04/22/2023 (Approximate), Expires: 03/24/2024 [facility] Work Phone: Comment on above: Expected: 04/22/2023 (Approximate), Expires: 03/24/2024 Start: 04-13-2023 Erythropoietin (EPO) [Units/volume] in Serum or Plasma [facility] Start: 04-13-2023 End: 04-13-2023 [facility] Start: 04-12-2023 Hemoglobin A1c measurement Diabetes: Hemoglobin A1C [facility] Start: 03-16-2023 [facility] Start: 02-21-2023 Behavioral Health Screening Behavioral Health Screening [facility] Start: 02-21-2023 Depression Assessment Depression Ass essment [facility] Start: 02-11-2023 [facility] Start: 01-26-2023 Shingrix Vaccine (2 of 2) Shingrix Vaccine (2 of 2) [facility] Start: 12-20-2022 [facility] Start: 10-22-2022 Covid-19 Vaccine ( season) Covid-19 Vaccine ( season) [facility] [facility] Start: 10-22-2022 Influenza vaccination C [facility] Start: 10-07-2022 End: 05-09-2023 Ct abdomen w/o & w/contrast material CT KIDNEY WO/W IVCON Radiology Routine Other specified disorders of kidney and ureter Expected: 10/07/2022, Expires: 05/09/2023 [facility] Work Phone: Comment on above: Expected: 10/07/2022 , Expires: 05/09/2023 Start: 07-26-2022 [facility] Start: 07-06-2022 [facility] Start: 07-01-2022 [facility] Start: 06-23-2022 End: 06-23-2022 [facility] Start: 06-23-2022 End: 06-23-2022 [facility] Start: 06-23-2022 [facility] Start: 06-02-2022 [facility] Start: 06-02-2022 [facility] Start: 04-05-2022 End: 06-05-2022 CREATININE BLD CREATININE BLD Lab Routine Renal mass Expected: 04/05/2022, Expires: 06/05/2022 [facility] Work Phone: Comment on above: Expected: 04/05/2022 , Expires: 06/05/2022 Start: 02-21-2022 DEPRESSION ASSESSMENT DEPRESSION ASS ESSMENT [facility] Start: 10-22-2021 Influenza vaccination INFLUENZA (#1) [facility] Start: 06-25-2021 COVID-19 VACCINE (4 - Booster for Pfizer series) COVID-19 VACCINE (4 - Booster for Pfizer series) [facility] Start: 04-22-2021 COVID-19 VACCINE (4 - Booster for Pfizer series) COVID-19 VACCINE (4 - Booster for Pfizer series) [facility] Start: 04-22-2021 COVID-19 VACCINE (4 - Pfizer series) COVID-19 VACCINE (4 - Pfizer series) [facility] Start: 07-23-2017 Pneumococcal vaccination Pneumococcal Vaccine (2 of 2 - PCV) [facility] Start: 11-06-2015 Administration of varicella zoster vaccine Zoster (Shingles) Vaccine (1 of 2) [facility] Start: 11-06-2015 SHINGRIX VACCINE (1 of 2) SHINGRIX VACCINE (1 of 2) [facility] Start: 2010 COLOGUARD (FIT-DNA) COLOGUARD (FIT-D NA) [facility] Start: 2010 Colonoscopy COLONOSCOPY [facility] Start: 2010 COLORECTAL CANCER SCREENING COLORECTAL CANCER SCREENING [facility] Start: [address] COLONOGRAPHY [facility] Start: 2010 DIABETES SCREEN DIABETES SCREEN [facility] Start: 2010 FECAL OCCULT BLOOD FECAL OCCULT BLOO D [facility] Start: 2010 Lipid panel Lipid Screening [facility] Start: 2010 LIPID SCREEN LIPID SCREEN [facility] Start: 2010 Screening for malign ant neoplasm of colon [facility] Start: 2010 SIGMOIDOSCOPY SIGMOIDOSCOPY [facility] Start: 2005 Mammography MAMMOGRAM [facility] Start: 2005 Screening for malign ant neoplasm of breast Mammogram Screening [facility] Start: 11-06-1995 HPV TESTING HPV TESTING [facility] Start: 11-06-1995 Screening for malign ant neoplasm of cervix [facility] Start: 1986 PAP TESTING PAP TESTING [facility] Start: 1986 Screening for malign ant neoplasm of cervix [facility] Start: 1984 DTaP,Tdap and Td Vaccines (1 - Tdap) DTaP,Tdap and Td Vaccines (1 - Tdap) [facility] Start: 1984 Hepatitis B Vaccine (1 of 3 - 19+ 3-dose series) Hepatitis B Vaccine (1 of 3 - 19+ 3-dose series) [facility] Start: 1984 Urine microalbumin profile [facility] Start: 11-06-1983 Adult BMI Follow Up Plan Adult BMI Follow Up Plan [facility] Start: 11-06-1983 Adult BMI Screening Adult BMI Screen ing [facility] Start: 11-06-1983 ANNUAL PCP TEAM ADVERTISING ASSOCIATE ABIOLA DISEASE VISIT ANNUAL PCP TEAM CHRONIC DISEASE VISIT [facility] Start: 11-06-1983 Anxiety Screening Anxiety Screening [facility] Start: 11-06-1983 Depression Screening Depression Scre ening [facility] Start: 11-06-1983 Hepatitis B surface antibody level LDL CHOLESTEROL [facility] Start: 11-06-1983 HEPATITIS C SCREENING HEPATITIS C [facility] Start: 11-06-1983 Hepatitis C screening Hepatitis C [facility] Start: 11-06-1983 HIV SCREENING HIV SCREENING [facility] Start: 11-06-1983 HIV screening HIV Screening [facility] Start: 1977 Adult depression screening assessment DEPRESSION SCREENING [facility] Start: 1977 Tobacco Screening Tobacco Screening [facility] Start: 11-06-1975 Diabetic foot examination Diabetic Foot Exam [facility] Start: 11-06-1975 Glaucoma screening Dilated Retinal E xam [facility] Start: 11-06-1975 Hepatitis B screening Urine Al bumin:Creatinine Ratio [facility] Start: 11-06-1971 PNEUMOCOCCAL (1 - PCV) PNEUMOCOCCAL (1 - PCV) [facility] Start: 1965 HEPATITIS B (1 of 3 - 3-dose series) HEPATITIS B (1 of 3 - 3-dose series) [facility] Start: 1965 Hepatitis B Vaccine (1 of 3 - 3-dose series) Hepatitis B Vaccine (1 of 3 - 3-dose series) [facility] Start: 1965 Screening for malign ant neoplasm of colon [facility] Start: 1965 Tobacco Counseling Tobacco Counselin g [facility] Comprehensive metabo lic 2000 panel - Serum or Plasma [facility] End: 07-14-2024 CT Abdomen W contrast IV CT ABDOMEN W IVCON Radiology Routine Other specified disorders of kidney and ureter 1 Occurrences starting 06/15/2023 until 07/14/2024 [facility] Work Phone: Comment on above: 1 Occurrences starti ng 06/15/2023 until 07/14/2024 End: 11-15-2023 Ct abdomen w/o & w/contrast material CT KIDNEY WO/W IVCON Radiology Routine Renal mass, right Other specified disorders of kidney and ureter 1 Occurrences starting 10/16/2022 until 11/15/2023 [facility] Work Phone: Comment on above: 1 Occurrences starti ng 10/16/2022 until 11/15/2023 Erythropoietin (EPO) [Units/volume] in Serum or Plasma [facility] Glucose measurement estimated from glycated hemoglobin [facility] Methylmalonate [Moles/volume] in Serum or Plasma [facility] URINALYSIS, REFLEX MICROSCOPIC URINALYSIS, REFLEX MICROSCOPIC Lab Routine Screening for genitourinary condition Ordered: 10/15/2022 [facility] Work Phone: Comment on above: Ordered: 10/15/2022 XR ANKLE GENERAL 3V AP/LAT/OBL LEFT XR ANKLE GENERAL 3V AP/LAT/OBL LEFT Radiology Routine Closed fracture of left ankle, initial encounter Ordered: 10/12/2021 [facility] Work Phone: Comment on above: Ordered: 10/12/2021 [facility] Immunizations Immunization Date Immunization Notes Care Provider Suki green 12-20-2023 influenza, injectabl e, madin rafaela canine kidney, preservative free Jenny Aichholz APRON CLEANER Work Phone: [facility] 12-20-2023 tetanus toxoid, redu russell diphtheria toxoid, and acellular pertussis vaccine, adsorbed Jenny Aichholz APRON CLEANER Work Phone: [facility] 02-17-2023 zoster vaccine recombinant Lisette Sonam DO Work Phone: [facility] 12-01-2022 influenza, injectabl e, quadrivalent, preservative free Jenny Aichholz APRON CLEANER Work Phone: [facility] 12-01-2022 zoster vaccine recombinant Jenny Aichholz APRON CLEANER Work Phone: [facility] 12-01-2022 influenza virus vaccine, unspecified formulation Jenny Aichholz APRON CLEANER Work Phone: [facility] 12-18-2021 influenza virus vaccine, unspecified formulation Jluis ROBLEDO [facility] 12-18-2021 Influenza, injectabl e, Madin Rafaela Canine Kidney, preservative free, quadrivalent Jenny Aichholz APRON CLEANER Work Phone: [facility] 02-25-2021 influenza virus vaccine, unspecified formulation Jluis ROBLEDO [facility] 02-25-2021 influenza, injectabl e, quadrivalent, preservative free Jenny Aichholz APRON CLEANER Work Phone: [facility] 02-25-2021 SARS-CoV-2 (COVID-19 ) mRNA BNT-162b2 vax Jluis ROBLEDO [facility] 02-25-2021 SARS-CoV-2, Unspecified Alexi Cummins DO Work Phone: [facility] 11-21-2020 influenza virus vaccine, unspecified formulation Jluis ROBLEDO [facility] 11-21-2020 influenza, seasonal, injectable Lisette Cummins DO Work Phone: [facility] 11-12-2020 influenza virus vaccine, unspecified formulation Jluis ROBLEDO [facility] 06-19-2020 SARS-CoV-2 mRNA (tozinameran 5y-11y) vaccine Jluiskatarzyna ROBLEDO [facility] 05-29-2020 SARS-CoV-2 mRNA (tozinameran 5y-11y) vaccine Jluis ROBLEDO [facility] 10-17-2018 influenza virus vaccine, unspecified formulation Jluiskatarzyna ROBLEDO [facility] 10-17-2018 influenza, injectabl e, quadrivalent, preservative free Jenny Aichholz APRON CLEANER Work Phone: [facility] 11-23-2017 influenza virus vaccine, unspecified formulation Jluis ROBLEDO [facility] 11-23-2017 influenza, injectabl e, quadrivalent, preservative free Jenny Aichholz APRON CLEANER Work Phone: [facility] 10-20-2017 influenza virus vaccine, unspecified formulation Jluis ROBLEDO [facility] 10-20-2017 influenza, injectabl e, quadrivalent, preservative free Jenny Aichholz APRON CLEANER Work Phone: [facility] 11-22-2016 influenza virus vaccine, unspecified formulation Jluis ROBLEDO [facility] 11-22-2016 influenza, injectabl e, quadrivalent, preservative free Jenny Aichholz APRON CLEANER Work Phone: [facility] 11-06-2016 influenza virus vaccine, unspecified formulation Jluis ROBLEDO [facility] 11-06-2016 influenza, injectabl e, quadrivalent, preservative free Jenny Aichholz APRON CLEANER Work Phone: [facility] 07-23-2016 pneumococcal polysaccharide vaccine, 23 valent Jluis ROBLEDO [facility] Payers Date Payer Category Payer Medicare O [employer] MEDICARE [id number] 2022 Medicaid [id number] 2022 Medicare (Managed Care) [employer] EDICARE ADVANTAGE [id number] 2022 Private Health Insurance [id number] 2019 Medicare MEDICARE MEDICAR E A AND B [id number] 2019-Present [phone] [place] [address] Medicare [id number] 2019 Medicare [id number] 2019 Managed Care Other (unspecified) [facility] [id number] 2019 Private Health Insurance [facility] [id number] 2019-Present [phone] [address] [place] [address] O [id number] 2019 Private Health Insurance [facility] [id number] 2019-Present [phone] [address] [place] [address] HMO [id number] 2019 Unknown [id number] 1965 Unknown [id number] 2.16.840.1.548955.3.579.2. 727 1965 Unknown [id number] 2.16.840.1.605226.3.579.2. 727 1965 Unknown [id number] 2.16.840.1.376554.3.579.2. 727 1965 Unknown [id number] 2.16.840.1.325056.3.579.2. 593 1965 Unknown [id number] 2.16.840.1.435942.3.579.2. 593 1965 Unknown [id number] 2.16.840.1.620343.3.579.2. 593 1965 Unknown [id number] 2.16.840.1.463317.3.579.2. 593 1965 Unknown [id number] 2.16.840.1.637411.3.579.2. 1259 1965 Unknown [id number] 2.16.840.1.197712.3.579.2. 1259 1965 Unknown [id number] 2.16.840.1.931432.3.579.2. 1259 1965 Unknown [id number] 2.16.840.1.141893.3.579.2. 1259 1965 Unknown [id number] 2.16.840.1.949963.3.579.2. 1259 1965 Unknown [id number] 2.16.840.1.040815.3.579.2. 1259 1965 Unknown [id number] 2.16.840.1.542384.3.579.2. 1258 1965 Unknown [id number] 2.16.840.1.654266.3.579.2. 1258 1965 Unknown [id number] 2.16.840.1.949800.3.579.2. 1258 1965 Unknown [id number] 2.16.840.1.968423.3.579.2. 1258 1965 Unknown [id number] 2.16.840.1.122184.3.579.2. 1258 1965 Unknown [id number] 2.16.840.1.653775.3.579.2. 1258 1965 Unknown [id number] 2.16.840.1.996905.3.579.2. 1258 1965 Unknown [id number] 2.16.840.1.312490.3.579.2. 1258 1965 Unknown [id number] 2.16.840.1.758687.3.579.2. 1258 1965 Unknown [id number] 2.16.840.1.173357.3.579.2. 1258 1965 Unknown [id number] 2.16.840.1.862797.3.579.2. 1258 1965 Unknown [id number] 2.16.840.1.240336.3.579.2. 1285 1965 Unknown [id number] 2.16.840.1.917092.3.579.2. 1285 1965 Unknown [id number] 2.16.840.1.069528.3.579.2. 1285 1965 Unknown [id number] 2.16.840.1.243621.3.579.2. 1286 1959 Medicaid [id number] 1959 Medicare [id number] 1959 Private Health Insurance [id number] 1959 Self-pay [id number] Medicare [id number] Unknown Lj BC/BS [id number] Unknown [id number] 2.16.840.1.835634.3.579.2. 531 Social History Date Type Detail Facility Start: 07-27-2021 End: 03-05-2022 Tobacco smoking status Heavy tobacco smoker (finding) [facility] Start: 04-03-2020 End: 10-15-2022 Sex Assigned At Female [facility] Tobacco smoking stat NHIS Tobacco smoking consumption unknown [facility] Start: 1965 Sex Assigned At Not on file [facility] Start: 09-02-2021 End: 10-12-2021 Exposure to SARS-CoV-2 (event) Not sure [facility] Start: 10-12-2021 End: 05-03-2024 Tobacco smoking status DCIS Smokes tobacco daily [facility] History of tobacco use Cigarette Smoker [facility] Start: 10-12-2021 End: 05-03-2024 Tobacco use and exposure Smokeless tobacco non-user [facility] Start: 10-12-2021 End: 04-30-2024 Alcohol intake Ex-drinker (finding) [facility] Start: 06-02-2022 End: 07-30-2022 Tobacco smoking status NHIS Smoker (finding) [facility] Start: 1965 Sex Assigned At Female [facility] Start: 04-03-2020 End: 10-15-2022 History of Social function [facility] National Score (1-10 0), lower number is lower risk 63 [facility] Within the last year , have [...] true [facility] Start: 01-10-2023 Tobacco Comment 11- cigarettes/day [facility] Start: 02-02-2023 Alcohol Comment Caffeine: coffee,soda/pop: 10cups daily [facility] Start: 08-18-2017 End: 05-03-2024 Alcoholic beverage intake Current non-drinker of alcohol (finding) [facility] Start: 08-10-2017 Sex Female (finding) [facility] Medical Equipment Procedure Code Equipment Code Equipment Origin al Text Equipment Identifier Dates USE TWICE DAILY [id number] Start: 02-12-2023 End: 03-24-2024 Twice a day use [id number] Start: 03-24-2024 Goals Date Patient Goal Desired Activity /State Functional Status Date Assessment Result Facility 03-05-2022 Functional Status N/A [facility] Clinical Notes 07-27-2021 to 05-03-2024 Patient InstructionsDori Wesley NP - 04/30/2024 1:00 PM EDTTelephone Encounter - DARRICK Spence - 04/17/2024 4:08 PM ESTTelephone Encounter - DARRICK Spence - 04/17/2024 4:08 PM EST Note Date & Type Note Facility 05-03-2024 Note CHEST 2 VIEWS HISTORY: Smoker, preoperative evaluation COMPARISON: None FINDINGS: No focal airspace disease, pulmonary edema, pleural effusions, or pneumothorax. Normal cardiomediastinal silhouette. IMPRESSION: No acute cardiopulmonary disease. Finalized by Sekou Garcia MD on 05/03/2024 3:17 PM [facility] 05-03-2024 Note XR CHEST 2 VWS CHEST 2 VIEWS HISTORY: Smoker, preoperative evaluation COMPARISON: None FINDINGS: No focal airspace disease, pulmonary edema, pleural effusions, or pneumothorax. Normal cardiomediastinal silhouette. IMPRESSION: No acute cardiopulmonary disease. Finalized by Sekou Garcia MD on 05/03/2024 3:17 PM [facility] 05-03-2024 Instructions Maggie Monaco RN - 05/03/2024 12:45 PM EDT Preoperative Education Checklist- General Surgery date: 05/08/24 Surgery time: 130p Arrival time: 1130a 1. Bring a photo ID and your insurance card with you the day of surgery. You will check in at the main lobby of the [facility]- registration desk is straight ahead as soon as you walk in. Tell them you are here for surgery. 2. If you have a Living Will/Durable Power of [employer] [facility] Care that is not on file here, please bring a copy the day of surgery. 3. Please shower/bathe the night before surgery with the provided soap or wipes. Do not shower the morning of surgery- you will do use wipes when you arrive here at the hospital before getting into your surgical gown. Do not shave the area of your procedure for 2 days prior to your surgery. 4. NO powder, lotion, perfume/cologne, aftershave, make-up, deodorant, or hair products after you have bathed. 5. NO nail canadian/acrylic on at least one finger. If you are having a hand, wrist or foot surgery then all nail canadian and artificial/acrylic nails must be removed from that hand or foot. 6. Avoid ALL Aspirin and non-steroidal anti-inflammatory drugs and certain vitamins (Ibuprofen, Advil, Aleve, Excedrin, Meloxicam, Celebrex, fish/krill oil, etc.) for 7 days prior to surgery as instructed by your surgeon and/or your prescribing doctor. Tylenol IS ALLOWED. If you are on Ticlid, Xarelto, Eliquis, Pradaxa, Plavix or Coumadin, please check with your prescribing doctor for instructions for when to stop them. 7. If you use an inhaler, continue to use it routinely. 8. Nothing to eat or drink (not even water, gum, mints, or hard candy!) AFTER midnight prior to your surgery. 9. Take only medications that you are instructed to on the morning of surgery with a TINY SIP OF WATER. 10. Choose a responsible adult that will be able to drive you home when you are discharged from your hospital stay for your surgery and can stay with you in your home for 24 hours after your procedure. You must NOT drive any vehicle or operate any machinery for 24 hours after surgery. 11. When you dress for your appointment, please wear loose fitting clothing that is appropriate to accommodate your surgical area procedure. BRING WITH YOU ANY DEVICES YOU MAY NEED: NIKKI hose, ice machine, sling/swath, brace or special shoe, oversized zip-up or button up shirt, CPAP machine if staying overnight. 12. Do NOT wear jewelry, watches, or any piercings or metal for surgery- leave these valuables and money at home. 13. Do NOT wear contact lenses for surgery- glasses are okay if needed. 14. The anesthesiologist will talk with you the day of surgery and will ask you to sign a Consent Form. 15. Refrain from smoking or any type of tobacco use for at least 8 hours and marijuana for 24 hours prior to arrival for your surgery. 16. If a GREEN BLOOD band is given to you, please bring it with you for the day of surgery. 17. Notify your surgeon if you develop any illness before your surgery. 18. If you are staying overnight, please DO NOT BRING your home medications with you. 19. If you have any questions prior to surgery, please call the Preadmission Testing office at [phone], Mon.-Fri. 7 a.m.-3 p.m. Leave a voicemail if needed. Pre-Surgery Instructions: Medication Instructions apixaban (ELIQUIS) 2.5 mg tablet Check with prescribing doctor for instructions aspirin 81 mg chewable tablet Check with prescribing doctor for instructions dapagliflozin propanediol (FARXIGA) 10 mg tablet Stop taking 3 days prior to procedure ferrous sulfate 325 (65 FE) MG tablet Stop taking 0 days prior to procedure folic acid (FOLVITE) 1 mg tablet Stop taking 0 days prior to procedure metoprolol succinate XL (TOPROL XL) 50 mg 24 hr tablet Take morning of procedure NovoLOG Mix 70-30FlexPen U-100 100 unit/mL (70-30) insulin pen Stop taking 0 days prior to procedure pregabalin (LYRICA) 100 mg capsule Take morning of procedure atorvastatin (LIPITOR) 80 mg tablet Stop taking 0 days prior to procedure DULoxetine (CYMBALTA) 30 mg capsule Stop taking 0 days prior to procedure DULoxetine (CYMBALTA) 60 mg capsule Take morning of procedure fexofenadine (LUZ) 180 mg tablet Stop taking 0 days prior to procedure furosemide (LASIX) 40 mg tablet Stop taking 0 days prior to procedure pantoprazole (PROTONIX) 40 mg EC tablet Take morning of procedure How to Avoid an Infection after Your Surgery Your doctor will give you specific instructions, but remember: -ALWAYS wash hands before caring for your incision. -No picking, scratching, or rubbing your incision. -No creams, lotion, powder, rubbing alcohol or hydrogen peroxide on the incision (can harm the tissue and slow healing). -Your doctor will give you specific instructions for what type of dressing you will need and how often it will need changed for infection purposes. -No tight clothing on incision. -Do not allow anyone to touch your incision unless they are cleaning, checking, or redressing it (be sure they wash their hands first). -No contact of your incision with pets; avoid sleeping with pets. -Take full course of antibiotic if prescribed for you after surgery- do not stop unless directed to by your physician. You may also be given an antibiotic prior to your surgery to help prevent surgical site infections. -Eat a healthy and varied diet including proteins, fruits, and vegetables to help promote wound healing and keep blood sugars under control if you are diabetic. -Smoking slows the healing process by decreasing the amount of oxygen in your blood that is needed for tissue healing. Try to avoid or stop smoking if possible. LOOK at your incision each morning and each night to check the progress of healing. Some soreness, numbness, itching and/or mild bruising around the incision is normal. Call your doctor if you notice any of the following: -Increased redness or hardening around the incision area. -Increased pain at the incision site. -Incision feels hot to the touch. -Swelling or pulling apart of the incision edges. -Yellow or green drainage or foul odor coming from the incision. -Bleeding from the incision (apply pressure as needed). -Fever higher than 101 degrees Fahrenheit for more than 4 hours. SHOWERING: Your doctor will give you specific instructions, but remember: -Be careful getting into and out of the shower. -Showers should be quick (5 minutes or less). -Use a clean washcloth to gently wash your incision with soap and water and pat the area dry with a clean towel. -No re-using wash cloths or towels; get a fresh one to clean your incision. -Do not soak in the bathtub, go swimming or use a hot tub (Jacuzzi), or perform activities where your incision is submerged in water or exposed to any fluids or substances until instructed by your doctor. -If your have the sticky strips (steri-strips) over the incision, it is OK to shower with them. Do not remove them. Let them fall off on their own. If you have a question, call your doctor s office. Go to the follow-up appointment with your doctor. documented in this encounter [employer] 04-30-2024 History of Present illness Narrative Images [...] Anxiety and depression (CMS/HCC) Arthritis CAD in [place] artery (CMS/HCC) Cancer of kidney (CMS/HCC) Chronic [...] pneumonia History of varicose veins Intermittent claudication ([facility]/HCC) Kidney problem spot on kidney Mucopurulent chronic bronchitis ([facility]/HCC) Neuropathy ELENA (obstructive sleep apnea) Osteoporosis ([facility]) Pneumonia Sinusitis Tobacco user Type 2 diabetes mellitus with insulin therapy ([facility]) 03/24/2023 PAST SURGICAL HISTORY: Past Surgical History: [...] MINI PEN NEEDLES) 31G x 5 mm misc Twice a day use methocarbamol (ROBAXIN) 500 [...] whether old or current tear, subsequent encounter S83.231D PLAN: This patient presents for preadmission testing [...] PROTOCOL HAS WALKER FACTOR V ALPESH Wesley STEEL MANAGER-MEDICAL BILLING AND CODING SPECIALIST Follow up for [facility]30[facility]24 [facility] 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 ([facility]/HCC) Diabetic neuropathy, painful ([facility]) Encounter for annual wellness visit (AWV) in Medicare patient Environmental and seasonal allergies Family history of lung cancer Gallstone Gastroesophageal reflux disease without esophagitis History of varicose veins Incomplete bladder emptying Internal derangement of left knee Internal derangement of right knee Intestinal malabsorption, unspecified Iron deficiency anemia Lumbosacral plexus lesion Mucopurulent chronic bronchitis ([facility]/HCC) Neuropathy ELENA (obstructive sleep apnea) Osteoporosis Other acute sinusitis Yeast infection of the vagina Elevated alkaline phosphatase level PAD (peripheral artery disease) Claudication Chronic kidney disease, stage 3a ([facility]/HCC) Diabetes ([facility]) Type 2 diabetes mellitus with insulin therapy ([facility]) Dizziness and giddiness Pre-operative clearance Primary hypertension Type 2 diabetes mellitus with diabetic chronic kidney disease ([facility]) Family History Problem Relation Name Age of [...] to Eliquis. At her prior visit with APRON CLEANER Niyah Pop on 04/27/2019 she was complaining [...] exertion. No p (more content not included)... [facility] 04-17-2024 Telephone encounter Note Spoke to pt and explained that she was unfortunately not on the surgery schedule for April 23. I scheduled her for May 16 @ [facility]. I faxed over a clearance request/plavix/eliquis protocol to cardiology. She was grateful for call. [facility] 04-17-2024 Miscellaneous Notes Spoke to pt and [...] his job for the date. Please advise [phone] documented in this encounter [facility] 04-17-2024 History of Present illness Narrative April 23 surgery Maura called pt this morning- and wants her [...] being taken. She does not see a physical instructor.Eye exam is not current. Hypertension This is [...] exposure. Hypertensive end-organ damage includes kidney disease, CAD/PR, CVA and PVD. SUBJECTIVE: MEDICATIONS: Current Outpatient [...] MINI PEN NEEDLES) 31G x 5 mm [facility] [place] [place] Twice a day [...] stress test Allergies Anemia Anxiety and depression ([facility]) Arthritis CAD in [place] artery ([facility]) Cancer of kidney ([facility]) Chronic back pain Chronic bronchitis ([facility]) Chronic cough Cigarette nicotine dependence Cough Diabetes mellitus type 2 in obese ([facility]) 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 ([facility]) Diabetic neuropathy, painful ([facility]) Factor V Leiden ([facility]) Factor 5 Leiden deficiency Family history of cancer High cholesterol ([facility]) History of DVT (deep vein thrombosis) history of DVT no PE History of kidney cancer History of pancreatitis History of pneumonia History of varicose veins Intermittent claudication ([facility]) Kidney problem spot on kidney Mucopurulent chronic bronchitis ([facility]) Neuropathy ELENA (obstructive sleep apnea) Osteoporosis ([facility]) Pneumonia Sinusitis Tobacco user Type 2 diabetes mellitus with insulin therapy ([facility]) 03/24/2023 Past Surgical History: Procedure Laterality Date [...] (BMI) of 45.0 to 49.9 in adult ([facility]) Discussed with patient their BMI (actual, verses recommended). We have also discussed lifestyle modifications: attempts to perform physical activity as chronic conditions allow, also to monitor dietary intake: increasing protein/fruits/veggies and lowering carb intake (unless contraindicated). Limit sodas, juices, and sugary drinks. 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 Options for quitting smoking include: cold turkey, hypnosis, acupuncture, nicotine replacement meds (gum, lozenges, and patches), Buproprion, and Varenicline. At this time pt is encouraged to evaluate their goals for wanting to quit smoking, and reach out to provider when ready to start this process Malignant neoplasm of unspecified kidney, except renal pelvis ([facility]) - Primary Continue with specialty for monitoring Unspecified chronic bronchitis ([facility]) Recommend quitting smoking Osteoporosis ([facility]) DEXA scan will order Relevant Orders DEXA bone density Type 2 diabetes mellitus with diabetic neuropathy, with long-term current use of insulin ([facility]) Freq foot checks for wounds, callouses, or s/s infection Continue with pregabalin and adequate blood sugar control OARRS reviewed Relevant Medications dapagliflozin (Farxiga) 10 MG Type 2 diabetes mellitus with insulin therapy ([facility]) Discussion with pt about her current insulin [...] MCG/ACT nasal spray PAD (peripheral artery disease) ([facility]) Continue anti coagulation, statin therapy Type 2 diabetes mellitus with diabetic chronic kidney disease ([facility]/HCC) Lab monitoring and goal of adequate blood sugar and blood pressure control Chronic kidney disease, stage 3a (HCC) ([facility]) Risk factor modification Keep DM and HTN near goal Primary hypertension ([facility]) Please check blood pressure daily and record [...] Morbid (severe) obesity due to excess calories ([facility]) Body mass index (BMI) 45.0-49.9, adult ([facility]) Mixed hyperlipidemia ([facility]/HCC) On statin therapy Check labs yearly and prn dose changes Associated Problem(s): Mixed hyperlipidemia ([facility]/HCC) On statin therapy Check labs yearly and prn dose changes Associated Problem(s): Tobacco user The patient has been advised of the risks of continued smoking: stroke, PR, all forms of cancer, lung disease, and [...] meniscus repair Associated Problem(s): Factor V Leiden ([facility]) Is on xarelto normally, temporary change to eliqus until we can possibly get Xarelto through Pt Assistance Forms have been completed, received a denial they want her to apply for Part D medicare, she has been denied this We will try to see about eliquis then Associated Problem(s): Type 2 diabetes mellitus with insulin therapy ([facility]) Discussion with pt about her current insulin [...] diabetes mellitus with diabetic chronic kidney disease ([facility]) Lab monitoring and goal of adequate blood sugar and blood pressure control Associated Problem(s): 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 We have also discussed lifestyle modifications: attempts to perform physical activity as chronic conditions allow, also to monitor dietary intake: increasing protein/fruits/veggies and lowering carb intake (unless contraindicated). Limit sodas, juices, and sugary drinks. Chronic conditions and PMH limit many options for med treatment, and also physical activity Associated Problem(s): Osteoporosis ([facility]) DEXA scan will order Associated Problem(s): Bilateral lower extremity edema Limit sodium intake, elevate legs as much as possible Current meds: lasix Associated Problem(s): Malignant neoplasm of unspecified kidney, except renal pelvis ([facility]) Continue with specialty for monitoring Associated Problem(s): Chronic kidney disease, stage 3a (HCC) ([facility]) Risk factor modification Keep DM and HTN near goal Associated Problem(s): Primary hypertension ([facility]) Please check blood pressure daily and record DASH diet Limit caffeine Take medication as directed Contact office if chest pain, pressure, dizziness, shortness of breath, swelling legs Recommend slow position changes Current meds: b zhao, Associated Problem(s): PAD (peripheral artery disease) ([facility]) Continue anti coagulation, statin therapy Associated Problem(s): CAD in [place] artery ([facility]) Cont statin, b zhao, asa, cardiology Aggressive risk factor modification Associated Problem(s): Unspecified chronic bronchitis ([facility]) Recommend quitting smoking Associated Problem(s): Type 2 diabetes mellitus with diabetic neuropathy, with long-term current use of insulin ([facility]) Freq foot checks for wounds, callouses, or s/s infection Continue with pregabalin and adequate blood sugar control OARRS reviewed Associated Problem(s): ELENA (obstructive sleep apnea) .MONGOLIAN documented in this encounter [facility] 04-17-2024 Instructions Jenny Borrego NP - 04/17/2024 1:00 PM EST Mammogram and bone density: will fax to yun ext [phone] Get labs Change times on insulin to breakfast and supper documented in this encounter [facility] 04-16-2024 Telephone encounter Note Patient called stating 04/23/24 works for her surgery as discussed. Please call patient to confirm so her can request the day off. [facility] 04-13-2024 Telephone encounter Note Elmer called and was inquiring about her surgery date, she said that her needs to request off at his job for the date. Please advise [phone] [facility] 04-06-2024 History of Present illness Narrative Images [...] PAIN AND WEAKNESS IN ANKLE, WENT TO [facility] 11/19/23 AND HAD XRAY, TREATED W/ PERCOCET AND ORTHO REFERRAL. XRAY (R) ANKLE 07/10/23 @ [facility] VENOUS DOPPLER 07/10/23 @ [facility] XRAY (R) ANKLE 11/19/23 @ [facility] MDP 02/27/24 MRI (R) ANKLE 02/09/24 [...] XRAY (R) KNEE 02/27/24 IN [facility] MRI (R) KNEE 02/21/24 IN [facility] DEPO MEDROL INJ 02/07/18, 12/20/23 [facility]DP W/ SOME RELIEF NO P.T NO PAIN [...] MINI PEN NEEDLES) 31G x 5 mm misc Twice a day use methocarbamol (ROBAXIN) 500 [...] requiring urgent evaluation. documented in this encounter [facility] 03-09-2024 History of Present illness Narrative [...] PAIN AND WEAKNESS IN ANKLE, WENT TO [facility] 11/19/23 AND HAD XRAY, TREATED W/ PERCOCET AND ORTHO REFERRAL. XRAY (R) ANKLE 07/10/23 @ [facility] VENOUS DOPPLER 07/10/23 @ [facility] XRAY (R) ANKLE 11/19/23 @ [facility] MDP 02/27/24 MRI (R) ANKLE 02/09/24 IN [facility] P.T- ORDERED BY DORI WESLEY 02/27/24 ( [...] XRAY (R) KNEE 02/27/24 IN [facility] MRI (R) KNEE 02/21/24 IN [facility] DEPO MEDROL INJ 02/07/18, 12/20/23 [facility]DP W/ SOME RELIEF NO P.T NO PAIN [...] 5 MM mis USE TWICE DAILY cetirizine (ZYRTEC) 10 mg, [...] Referral Reason: Specialty Services Required Referral Location: [facility] Scheduling Requested Specialty: Physical Therapy Number of [...] we will gradually wean her from her [place] boot and physical therapy. To weight-bear as [...] requiring urgent evaluation. documented in this encounter [facility] 03-05-2024 Telephone encounter Note Noted. Thank you. [facility] 03-05-2024 Miscellaneous Notes Noted. Thank you. [...] back for auth documented in this encounter [facility] 03-05-2024 Telephone encounter Note Also tried to call and was unable to leave . If patient calls back let me know as we will need to re-send PT order if she is willing to go. [facility] 03-02-2024 Telephone encounter Note Received no attempt if being contacted following 4 trials. [facility] 03-01-2024 Telephone encounter Note LM w/ daughter asking her if she could relay message to mother to contact so we can schedule PT Eval for treatment of ruptured achillis tendon. [facility] 02-28-2024 Telephone encounter Note Tried to contact to offer scheduling for PT Eval; voicemail is full. Will try again. referral needs to be sent back for auth [facility] 02-27-2024 History of Present illness Narrative Images from the original note were not included. HISTORY OF PRESENT ILLNESS: EST PT Elmer Asif Ellis is an 58 y.o. @ female. RT ankle: here for MRI results [facility] 02/09/24 RT achilles injury x 14 weeks 3 days, (doi 11/18/23) Pt was stepping up a step and felt pop and pain/weakness in ankle. Went to [facility] 11/18 with XR, percocet RX and ortho referral. Presents in W/C today wearing CAM boot, only takes off to shower. Denies topicals. Admits constant swelling. Admits N/T in B/L feet due to neuropathy. Prior history of RT ankle pain (07/02/23) Went to [facility] ER 07/10/23, followed up with Dr Cummins 07/12/23, voltaren gel and heel lifts recommended. Prior treatment: [facility] ER with XR 07/10/23 and venous doppler, CAM boot, gummies, [facility] ER 11/19/23 with XR, MRI [facility] 02/09/24 RT knee: here for MRI results [facility] 02/21/24 Had a flare up 12/17/23 (10 weeks 2 days). Was tx by Dr Cummins 12/19 with injection with 0% improvement. Pain anterior-medial knee, can be sharp and stabbing. Worse with WB activities, avoids stairs. Pain 9/10 with WB. Taking marijuana gummies and taking [...] 5 MM mis USE TWICE DAILY cetirizine (ZYRTEC) 10 mg, [...] of the right ankle dated 02/09/2024 at [facility] imaging which demonstrated severe Achilles tendinosis with diffuse thickening and areas of increased interstitial signal/tearing, otherwise appears intact. Apparent split tearing involving peroneus brevis I reviewed MRI of the right knee dated at [facility] imaging which demonstrated suspected complex tearing of [...] develop for requiring urgent evaluation. Dori Wesley STEEL MANAGER-MEDICAL BILLING AND CODING SPECIALIST documented in this encounter [facility] 02-08-2024 Telephone encounter Note Attempted to call patient twice. Unable to leave , says it is full. She is having her MRI ankle done at [facility] so I put in the referral for her RT knee MRI to be done at [facility] also. Pending insurance. If approved, imaging will call patient to schedule. [facility] 02-08-2024 Miscellaneous Notes Attempted to call patient twice. Unable to leave , says it is full. She is having her MRI ankle done at [facility] so I put in the referral for her RT knee MRI to be done at [facility] also. Pending insurance. If approved, imaging will [...] something for her RT Knee. She uses [facility] in [place]. Please advise. documented in this encounter [facility] 02-08-2024 Telephone encounter Note Patient called [...] something for her RT Knee. She uses [facility] in [place]. Please advise. [facility] 01-30-2024 History of Present illness Narrative Images from the original note were not included. Subjective Patient ID: Elmer Ellis is a 58 y.o. female. RT ankle. RT achilles injury x 10 weeks 3 days, (doi 11/18/23) Pt was stepping up a step and felt pop and pain/weakness in ankle. Went to [facility] 11/18 with XR, percocet RX and [...] of RT ankle pain (07/02/23) Went to [facility] ER 07/10/23, followed up with Dr Cummins 07/12/23, voltaren gel and heel lifts recommended. Prior treatment: [facility] ER with XR 07/10/23 the XR and venous doppler, CAM boot, gummies, [facility] ER 11/19/23 with XR RT knee [...] f/u s/p MRI to be done at 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 Hypertensive end-organ damage includes CAD/PR and PVD. 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 ([facility]) Diabetic neuropathy, painful ([facility]) Factor V Leiden ([facility]) Factor 5 Leiden deficiency Family history of cancer High cholesterol ([facility]) History of DVT (deep vein thrombosis) history of DVT no PE History of kidney cancer History of pancreatitis History of pneumonia History of varicose veins Intermittent claudication ([facility]) Kidney problem spot on kidney Mucopurulent chronic bronchitis ([facility]) Neuropathy ELENA (obstructive sleep apnea) Osteoporosis ([facility]) Pneumonia Sinusitis Tobacco user Type 2 diabetes mellitus with insulin therapy ([facility]) 03/24/2023 Past Surgical History: Procedure Laterality Date [...] (BMI) of 45.0 to 49.9 in adult ([facility]) Discussed with patient their BMI (actual, verses recommended). We have also discussed lifestyle modifications: attempts to perform physical activity as chronic conditions allow, also to monitor dietary intake: increasing protein/fruits/veggies and lowering carb intake (unless contraindicated). Limit sodas, juices, and sugary drinks. 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 ([facility]) Recommend tight blood sugar control Needs eye exam Factor V Leiden ([facility]) Is on xarelto Relevant Medications clopidogrel (Plavix) 75 MG tablet ELENA (obstructive sleep apnea) Is working with dr vides for testing Type 2 diabetes mellitus with diabetic neuropathy, with long-term current use of insulin ([facility]) - Primary Continue with pregabalin OARRS reviewed Type 2 diabetes mellitus with insulin therapy ([facility]) Discussion with pt about her current insulin [...] Continue PPI therapy PAD (peripheral artery disease) ([facility]) Continue anti coagulation, statin therapy Type 2 diabetes mellitus with diabetic chronic kidney disease ([facility]) Chronic kidney disease, stage 3a (HCC) ([facility]) Risk factor modification Keep DM and HTN near goal Primary hypertension ([facility]) Please check blood pressure daily and record DASH diet Limit caffeine Take medication as directed Contact office if chest pain, pressure, dizziness, shortness of breath, swelling legs Recommend slow position changes Encounter for screening mammogram for malignant neoplasm of breast Relevant Orders Bilateral screening mammogram Associated Problem(s): Factor V Leiden ([facility]) Is on xarelto Associated Problem(s): Type 2 diabetes mellitus with insulin therapy ([facility]) Discussion with pt about her current insulin [...] Problem(s): Chronic kidney disease, stage 3a (HCC) ([facility]) Risk factor modification Keep DM and HTN near goal Associated Problem(s): Primary hypertension ([facility]) Please check blood pressure daily and record [...] Continue PPI therapy Associated Problem(s): CAD in [place] artery ([facility]) Cont statin, b zhao, asa, cardiology Aggressive risk factor modification Associated Problem(s): PAD (peripheral artery disease) ([facility] [facility]) Continue anti coagulation, statin therapy Associated Problem(s): ELENA (obstructive sleep apnea) Is working with dr vides for testing Associated Problem(s): Type 2 diabetes mellitus with diabetic neuropathy, with long-term current use of insulin ([facility]) Continue with pregabalin OARRS reviewed documented in this encounter [facility] 01-16-2024 Instructions Jenny Borrego NP - 01/16/2024 1:40 PM EST No dose changes in insulin doses, A1c was 8.3% Mammogram at [facility] will call mammogram Eye exam documented in this encounter [facility] 12-20-2023 History of Present illness Narrative [...] pop and pain/weakness in ankle. Went to [facility] 11/18 with XR, percocet RX and [...] of RT ankle pain (07/02/23) Went to [facility] ER 07/10/23, followed up with Dr Cummins 07/12/23, voltaren gel and heel lifts recommended. 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 ([facility]) Diabetic neuropathy, painful ([facility]) Factor V Leiden ([facility]) Factor 5 Leiden deficiency Family history of cancer High cholesterol ([facility]) History of DVT (deep vein thrombosis) history of DVT no PE History of kidney cancer History of pancreatitis History of pneumonia History of varicose veins Intermittent claudication ([facility]) Kidney problem spot on kidney Mucopurulent chronic bronchitis ([facility]/HCC) Neuropathy ELENA (obstructive sleep apnea) Osteoporosis ([facility]) Pneumonia Sinusitis Tobacco user Type 2 diabetes mellitus with insulin therapy ([facility]) 03/24/2023 ALLERGIES: No Known Allergies VITALS: Visit Vitals Smoking Status Every Day PHYSICAL EXAM: Ortho Exam RIGHT ANKLE Full WB, without boot due to knee pain Palpable defect Achilles Diffuse swelling Active DF and PF Decreased sensation anterior foot and leg RIGHT KNEE Tenderness Medial joint line tenderness Limited ROM IMAGING: x-rays of the right ankle dated November 11, 2023. From the [facility]. There are no fractures detected. There [...] Cummins/ez Cummins D.O. documented in this encounter [facility] 12-14-2023 History of Present illness Narrative Images from the original note were not included. Chief Complaint Patient presents with Dizziness Subjective Elmer Ellis, 58 y.o., female being seen in Neurology consultation at the request of Jenny Borrego. APRON CLEANER HPI Dizziness - labs, ECHO, [facility] ER note in EPIC; referral received from Jenny Borrego NP 58 year old who is being seen [...] Anxiety and depression (CMS/HCC) Arthritis CAD in [place] artery (CMS/HCC) Cancer of kidney (CMS/HCC) Chronic [...] (CMS/HCC) Neuropathy ELENA (obstructive sleep apnea) Osteoporosis ([facility]/HCC) Pneumonia Sinusitis Tobacco user Type 2 diabetes mellitus with insulin therapy ([facility]) 03/24/2023 Past Surgical History: Procedure Laterality Date [...] was counseled on the risks of stroke, PR, and sudden with ELENA, along with the [...] clinic: 2 months documented in this encounter [facility] 11-22-2023 History of Present illness Narrative [...] pop and pain/weakness in ankle. Went to [facility] 11/18 with XR, percocet RX and ortho referral. Pain over achilles, she admits to numbness in ankle that started after she felt the pop. She is FWB with boot. Admits throbbing at rest and with WB. Tried percocet without relief. Taking marijuana gummies and elevating. Wears the boot at all times. Admits swelling. Prior history of RT ankle pain (07/02/23) Went to [facility] ER 07/10/23, followed up with Dr Cummins 07/12/23, voltaren gel and heel lifts recommended Prior treatment: [facility] ER with XR 07/10/23 the XR and venous doppler, CAM boot, gummies, [facility] ER 11/19/23 with XR Admits N/T in B/L feet due to neuropathy I reviewed notes from the [facility] Emergency Department dated November 19, 2023. [...] Anxiety and depression (CMS/HCC) Arthritis CAD in [place] artery (CMS/HCC) Cancer of kidney (CMS/HCC) Chronic [...] Type 2 diabetes mellitus with insulin therapy ([facility]) 03/24/2023 ALLERGIES: No Known Allergies VITALS: Visit Vitals Smoking Status Every Day PHYSICAL EXAM: Ortho Exam RIGHT ANKLE Wearing CAM boot, full WB Palpable defect Achilles Diffuse swelling Active DF and PF Marked tenderness around Achilles proximal to insertion Decreased sensation anterior foot and leg IMAGING: I reviewed x-rays of the right ankle dated November 11, 2023. From the [facility]. There are no fractures detected. There [...] Cummins/ez Cummins D.O. documented in this encounter [facility] 10-20-2023 History of Present illness Narrative Associated Problem(s): Bilateral lower extremity edema stable Associated Problem(s): CAD in [place] artery ([facility]) Continue statin, anti coagulation Cont with cardiology Associated Problem(s): Type 2 diabetes mellitus with insulin therapy ([facility]) Discussion with pt about her current insulin [...] being taken. She does not see a physical instructor.Eye exam is current. 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 ([facility]) Diabetic neuropathy, painful ([facility]) Factor V Leiden ([facility]) Factor 5 Leiden deficiency Family history of cancer High cholesterol ([facility]) History of DVT (deep vein thrombosis) history of DVT no PE History of kidney cancer History of pancreatitis History of pneumonia History of varicose veins Intermittent claudication ([facility]) Kidney problem spot on kidney Mucopurulent chronic bronchitis ([facility]) Neuropathy ELENA (obstructive sleep apnea) Osteoporosis ([facility]) Pneumonia Sinusitis Tobacco user Type 2 diabetes mellitus with insulin therapy ([facility]) 03/24/2023 Past Surgical History: Procedure Laterality Date [...] of 45.0 to 49.9 in adult (CMS/HCC) CAD in [place] artery (CMS/HCC) Continue statin, anti coagulation Cont with cardiology Peripheral vascular disease, unspecified (CMS/HCC) Recent stent placement Diabetic neuropathy, painful ([facility]/HCC) - Primary Type 2 diabetes mellitus with diabetic neuropathy, with long-term current use of insulin ([facility]/HCC) Type 2 diabetes mellitus with insulin therapy ([facility]) Discussion with pt about her current insulin [...] risk factor mgmt documented in this encounter [facility] 10-19-2023 Note Patient: Elmer guy Procedure Information Date/Time: 10/19/23 1100 Procedure: Lower extremity angiogram - PC APPROVED Location: [facility] [address] / [facility] ([facility]) Providers: Malik Benavides [...] Plan discussed with attending. Additional Equipment Requests [facility] 09-21-2023 Note [place] [facility] Subjective Elmer Ellis is [...] V [place]. At her prior visit with APRON CLEANER Niyah Pop on 04/27/2019 she was complaining [...] Every Day BSA (more content not included)... [facility] 08-18-2023 Note [place] [facility] Subjective Elmer Ellis is [...] V [place]. At her prior visit with APRON CLEANER Niyah Pop on 04/27/2019 she was complaining [...] are equal, r (more content not included)... [facility] 06-15-2023 Note HNO ID: [id number] Author: LEX PICKENS MD Service: ? Author Type: Physician Type: Progress Notes Filed: 06/15/2023 12:22 Note Text: VIRTUAL VISIT PROGRESS NOTE This is a virtual visit using BookBubom Video Visit. It required patient-provider interaction for the medical decision making as documented below. I have communicated my name and active licensure. The patient's identity and physical location were verified at the time of this visit. Either the patient or their legal labor union business representative has been informed of the risks [...] mg by mouth twice daily. MV with Brt-Ydyiefvp-Dbswql (CENTRUM SILVER) 0.4 mg-300 mcg- 250 mcg tab Take by mouth. (Patient not taking: Reported on 03/16/2022) insulin 75/25 lispro protamine/lispro units/mL (HUMALOG MIX 75-25,U-100,INSULN) 100 units/mL susp as directed. HYDROcodone-acetaminophen (NORCO) 5-325 mg per tablet hydrocodone 5 mg-acetaminophen 325 mg tablet TAKE 1 TO 2 TABLETS BY MOUTH EVERY DAY AT BEDTIME NEEDED biqsjbjd-yby-ehgb-FA-lutein (CENTRUM SILVER WOMEN) 8 mg iron-400 mcg-300 [...] release 24 hr (more content not included)... [facility] 06-15-2023 History of Present illness Narrative VIRTUAL VISIT PROGRESS NOTE This is a virtual visit using [employer] Video Visit. It required patient-provider interaction for the medical decision making as documented below. I have communicated my name and active licensure. The patient's identity and physical location were verified at the time of this visit. Either the patient or their legal labor union business representative has been informed of the risks [...] mg by mouth twice daily. MV with Umh-Ahfngmdi-Kdodqj (CENTRUM SILVER) 0.4 mg-300 mcg- 250 mcg tab Take by mouth. (Patient not taking: Reported on 03/16/2022) insulin 75/25 lispro protamine/lispro units/mL (HUMALOG MIX 75-25,U-100,INSULN) 100 units/mL susp as directed. HYDROcodone-acetaminophen (NORCO) 5-325 mg per tablet hydrocodone 5 mg-acetaminophen 325 mg tablet TAKE 1 TO 2 TABLETS BY MOUTH EVERY DAY AT BEDTIME NEEDED zffnmlya-jyk-ebkr-FA-lutein (CENTRUM SILVER WOMEN) 8 mg iron-400 mcg-300 [...] which included preparing to see the patient, clgu-qr-yqkj patient care, and counseling and educating the patient/family/caregiver Lex Pickens MD documented in this encounter [facility] 05-17-2023 Note HNO ID: [id number] Author: BRIGETTE FORMAN RT(R) Service: Radiology Author [...] PATIENT PRESENTS WITH AN IMPLANTABLE OR ATTACHED WEBSITE DEVELOPER: No RADIOLOGY DEPARTMENT: CT; Exam(s) Completed: Kidney PERIPHERAL IV DATA: Site assessment: Clean,Dry and Intact, Site disposition Discontinued 20g right forearm SIGNED BY: RT José Miguel(R) May 17, 2023 2:00 PM [facility] 05-17-2023 Note HNO ID: [id number] Author: JOI GREENE RN Service: ? Author [...] DATE: May 17, 2023 TIME: 2:02 PM [facility] 05-17-2023 History of Present illness Narrative [...] PATIENT PRESENTS WITH AN IMPLANTABLE OR ATTACHED WEBSITE DEVELOPER: No RADIOLOGY DEPARTMENT: CT; Exam(s) Completed: [...] TIME: 2:02 PM documented in this encounter [facility] 04-28-2023 Miscellaneous Notes Please sign pended Cre for upcoming CT. Pt needs updated lab before CT can be done Thank You! Josie Leong RN documented in this encounter [facility] 03-24-2023 History of Present illness Narrative Associated Problem(s): Encounter for annual wellness visit (AWV) in Medicare patient Reviewed Ht/Wt/BMI Recommend eye exam yearly Recommend dental exams twice a year Balance work/leisure activities Exercises is recommended most days of the week (appropriate as chronic conditions allow) Follow up yearly and prn Associated Problem(s): Type 2 diabetes mellitus with insulin therapy ([facility]) Check blood sugars daily, notify if <70 [...] in March Associated Problem(s): Cancer of kidney ([facility]/HCC) Continue with specialty for monitoring Associated Problem(s): CAD in [place] artery ([facility]) No acute angina symptoms Cont current meds [...] being taken. She does not see a physical instructor.Eye exam is current. 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 ([facility]) Diabetic neuropathy, painful ([facility]) Factor V Leiden ([facility]) Factor 5 Leiden deficiency Family history of cancer High cholesterol ([facility]) History of DVT (deep vein thrombosis) history of DVT no PE History of kidney cancer History of pancreatitis History of pneumonia History of varicose veins Intermittent claudication ([facility]) Kidney problem spot on kidney Mucopurulent chronic bronchitis ([facility]) Neuropathy ELENA (obstructive sleep apnea) Osteoporosis ([facility]) Pneumonia Sinusitis Tobacco user Type 2 diabetes mellitus with insulin therapy ([facility]) 03/24/2023 Past Surgical History: Procedure Laterality Date [...] List Items Addressed This Visit CAD in [place] artery ([facility]) No acute angina symptoms Cont current meds Goal: control BP, diabetes, lipids, and QUIT smoking Tobacco user Recommend quitting, pt declines Cancer of kidney ([facility]) Continue with specialty for monitoring Type 2 diabetes mellitus with diabetic neuropathy, with long-term current use of insulin ([facility]) Relevant Orders Hemoglobin A1c Type 2 diabetes mellitus with insulin therapy ([facility]) Check blood sugars daily, notify if <70 [...] at all Patient Health Questionnaire-9 Score: 4 Scott Fall Risk History of Falling, Immediate or [...] Vision Screening: Yes, patient sees regular director of graduate medical education/supercalender 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 helper Hearing Screening: Not done Cognitive Screening Self Assessment: No overt cognitive deficiency is apparent by direct observation Three Word Registration: Banana, [place], Chair Clock Drawing: Normal Clock - 2 Three Word Recall: All 3 words correct - 3 Pain Assessment Pain Score: 0 - No pain Advance Care Planning Do you have a living will?: No Do you have a medical power of stripper and opaquer apprentice?: No Objective : BP 112/70 (BP Location: [...] March 24, 2023 documented in this encounter [facility] 10-15-2022 Note Patient Outreach (UR OLMN) ELMER ELLIS ([id number]) 1965 F Date Time Provider Department 10/15/22 LEX PICKENS During your visit today, we recorded the following information about you: Allergies As of Date: 10/15/2022 (No Known Allergies) Date Reviewed: 10/15/2022 Reviewed by: Angie Mcclellan APRN.MEDICAL BILLING AND CODING SPECIALIST - Fully Assessed Visit Diagnosis:Screening for genitourinary condition [Z13.89] Order(s):URINALYSIS, REFLEX MICROSCOPIC [LTF4094] Order #: [id number] Prescriptions as of 10/18/2022 - DULoxetine (CYMBALTA) [...] by mouth twice daily. - MV with Hyd-Wwlpiusi-Yqvilq (CENTRUM SILVER) 0.4 mg-300 mcg- 250 mcg tab Take by mouth. - insulin 75/25 lispro protamine/lispro units/mL (HUMALOG MIX 75-25,U-100,INSULN) 100 units/mL susp as directed. - HYDROcodone-acetaminophen (NORCO) 5-325 mg per tablet hydrocodone 5 mg-acetaminophen 325 mg tablet TAKE 1 TO 2 TABLETS BY MOUTH EVERY DAY AT BEDTIME NEEDED - xmrkyfkd-tgb-lcoy-FA-lutein (CENTRUM SILVER WOMEN) 8 mg iron-400 mcg-300 [...] (HCC) [D68.51] 04/19/2022 Coronary artery disease involving [place] heart *04/19/2022 Smoker [F17.200] 04/19/2022 Morbid obesity (HCC) [E66.01] 04/19/2022 Other specified disorders of kidney and ureter *04/19/2022 Encounter Status:Closed by [employer] on 10/18/22 [facility] 10-15-2022 Note HNO ID: [id number] Author: Angie Mcclellan APRN.MEDICAL BILLING AND CODING SPECIALIST Service: ? Author Type: Nurse Practitioner Type: Progress Notes Filed: 10/16/2022 9:14 AM Note Text: VIRTUAL VISIT PROGRESS NOTE This is a virtual visit using Docea Power video visit. It required patient-provider interaction for the medical decision making as documented below. I have communicated my name and active licensure. The patient's identity and physical location were verified at the time of this visit. Either the patient or their legal labor union business representative has been informed of the risks [...] mg by mouth twice daily. MV with Uxb-Xwjiucgq-Nirhsc (CENTRUM SILVER) 0.4 mg-300 mcg- 250 mcg tab Take by mouth. (Patient not taking: Reported on 03/16/2022) insulin 75/25 lispro protamine/lispro units/mL (HUMALOG MIX 75-25,U-100,INSULN) 100 units/mL susp as directed. HYDROcodone-acetaminophen (NORCO) 5-325 mg per tablet hydrocodone 5 mg-acetaminophen 325 mg tablet TAKE 1 TO 2 TABLETS BY MOUTH EVERY DAY AT BEDTIME NEEDED dywvuxkl-xhx-omgi-FA-lutein (CENTRUM SILVER WOMEN) 8 mg iron-400 mcg-300 mcg tab furosemide (LASIX) 40 mg tablet furosemide 40 mg tablet TAKE 1 AND 1/2 TABLETS BY MOUTH DAILY clopidogrel (PLAVIX) 75 mg tablet clopidogrel 75 mg tablet TAKE 1 TABLET BY MOUTH EVERY DAY metoprolol succinate ER (TOPROL XL) 25 mg 24 hr tablet met (more content not included)... [facility] 10-15-2022 History of Present illness Narrative VIRTUAL VISIT PROGRESS NOTE This is a virtual visit using Do[employer] video visit. It required patient-provider interaction for the medical decision making as documented below. I have communicated my name and active licensure. The patient's identity and physical location were verified at the time of this visit. Either the patient or their legal labor union business representative has been informed of the risks [...] mg by mouth twice daily. MV with Uqd-Ncbvqgag-Vjgpcw (CENTRUM SILVER) 0.4 mg-300 mcg- 250 mcg tab Take by mouth. (Patient not taking: Reported on 03/16/2022) insulin 75/25 lispro protamine/lispro units/mL (HUMALOG MIX 75-25,U-100,INSULN) 100 units/mL susp as directed. HYDROcodone-acetaminophen (NORCO) 5-325 mg per tablet hydrocodone 5 mg-acetaminophen 325 mg tablet TAKE 1 TO 2 TABLETS BY MOUTH EVERY DAY AT BEDTIME NEEDED vufjcvpu-xoe-lcls-FA-lutein (CENTRUM SILVER WOMEN) 8 mg iron-400 mcg-300 [...] which included preparing to see the patient, gkgu-xr-aqnq patient care, completing clinical documentation, counseling and educating the patient/family/caregiver, and ordering medications, tests, or procedures Angie Mcclellan APRN.MEDICAL BILLING AND CODING SPECIALIST documented in this encounter [facility] 10-07-2022 Note HNO ID: [id number] Author: Christel Hua RT(R) Service: ? Author [...] RT Luan(R) October 07, 2022 10:33 AM [facility] 10-07-2022 History of Present illness Narrative [...] RT Luan(R) October 07, 2022 10:33 AM documented in this encounter [facility] 04-09-2022 History of Present illness Narrative [...] mg by mouth twice daily. MV with Tmq-Ixiosxqo-Xxagas (CENTRUM SILVER) 0.4 mg-300 mcg- 250 mcg tab Take by mouth. (Patient not taking: Reported on 03/16/2022) insulin 75/25 lispro protamine/lispro units/mL (HUMALOG MIX 75-25,U-100,INSULN) 100 units/mL susp as directed. HYDROcodone-acetaminophen (NORCO) 5-325 mg per tablet hydrocodone 5 mg-acetaminophen 325 mg tablet TAKE 1 TO 2 TABLETS BY MOUTH EVERY DAY AT BEDTIME NEEDED puzxfwxg-cff-lnap-FA-lutein (CENTRUM SILVER WOMEN) 8 mg iron-400 mcg-300 [...] prescribing physician. I25.10 Coronary artery disease involving [place] heart without angina pectoris, unspecified vessel or [...] Lex Pickens MD documented in this encounter [facility] 04-05-2022 History of Present illness Narrative [...] 2022 2:35 PM documented in this encounter [facility] 04-05-2022 History of Present illness Narrative [...] 2022 2:32 PM documented in this encounter [facility] 03-19-2022 Miscellaneous Notes Please sign pending Cre order for upcoming CT with contrast on 04/05/22. Thank you. Joi Austin RN documented in this encounter [facility] 03-16-2022 History of Present illness Narrative [...] prescribing physician. I25.10 Coronary artery disease involving [place] heart without angina pectoris, unspecified vessel or [...] Lex Pickens MD documented in this encounter [facility] 03-05-2022 Hospital Discharge instructions Patient Education [...] provider gives to you. In general: Take chbm-duw-qtxxuri and prescription medicines only as told by [...] 09/04/2014 Document Revised: 03/16/2018 Document Reviewed: 03/16/2018 [employer] Patient Education 2020 [employer]. Follow Up Care 07/27/2021 10:19:10 With:VENKAT SAWYER, Jluis Jacinto, URL Address: [address] [place], [place] [id number]- When: Unknown [facility] 11-09-2021 Note HNO ID: [id number] Author: Lilly Tony MD Service: ? Author [...] mg by mouth twice daily. MV with Bce-Kmestzbe-Dgbgrr (CENTRUM SILVER) 0.4 mg-300 mcg- 250 mcg tab Take by mouth. insulin 75/25 lispro protamine/lispro units/mL (HUMALOG MIX 75-25,U-100,INSULN) 100 units/mL susp as directed. HYDROcodone-acetaminophen (NORCO) 5-325 mg per tablet hydrocodone 5 mg-acetaminophen 325 mg tablet TAKE 1 TO 2 TABLETS BY MOUTH EVERY DAY AT BEDTIME NEEDED ytdqhwyl-kvu-sevm-FA-lutein (CENTRUM SILVER WOMEN) 8 mg iron-400 mcg-300 [...] without re (more content not included)... [facility] 10-19-2021 Note HNO ID: [id number] Author: Lilly Tony MD Service: ? Author [...] mg by mouth twice daily. MV with Rwc-Fgsjchdj-Hnerai (CENTRUM SILVER) 0.4 mg-300 mcg- 250 mcg tab Take by mouth. insulin 75/25 lispro protamine/lispro units/mL (HUMALOG MIX 75-25,U-100,INSULN) 100 units/mL susp as directed. HYDROcodone-acetaminophen (NORCO) 5-325 mg per tablet hydrocodone 5 mg-acetaminophen 325 mg tablet TAKE 1 TO 2 TABLETS BY MOUTH EVERY DAY AT BEDTIME NEEDED uccyulms-fge-awqg-FA-lutein (CENTRUM SILVER WOMEN) 8 mg iron-400 mcg-300 [...] S (more content not included)... [facility] 10-18-2021 History of Present illness Narrative [...] mg by mouth twice daily. MV with Zxy-Sxvrqxau-Uxyclj (CENTRUM SILVER) 0.4 mg-300 mcg- 250 mcg tab Take by mouth. insulin 75/25 lispro protamine/lispro units/mL (HUMALOG MIX 75-25,U-100,INSULN) 100 units/mL susp as directed. HYDROcodone-acetaminophen (NORCO) 5-325 mg per tablet hydrocodone 5 mg-acetaminophen 325 mg tablet TAKE 1 TO 2 TABLETS BY MOUTH EVERY DAY AT BEDTIME NEEDED krbgpztb-tqb-qddp-FA-lutein (C[employer]UM SILVER WOMEN) 8 mg iron-400 mcg-300 [...] Lilly Tony MD documented in this encounter [facility] 10-13-2021 Miscellaneous Notes Received voicemail from [...] bear any weight. Patient has taken 1 Raymond about an hour ago and said it is not helping the pain at all. Advised I would send message to and call patient once direction is received. Patient understood and had no further questions. Filomena Madrigal October 13, 2021 11:23 AM documented in this encounter [facility] 09-22-2021 Note HNO ID: [id number] Author: Lilly Tony MD Service: ? Author [...] with nonweightbearing status. She will occasionally take Raymond for pain relief which is effective. She is also supplemented with ghzh-fjy-cgxucbr pain medications. Her medical history significant for Beatties, coronary artery disease, diabetes and associated lower extremity neuropathy, DVT requiring Plavix and Xarelto for anticoagulation. 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 She also has kidney cancer that is [...] by mouth twice daily. - MV with Bxu-Mipvpxsj-Bqigim (CENTRUM SILVER) 0.4 mg-300 mcg- 250 mcg tab Take by mouth. - insulin 75/25 lispro protamine/lispro units/mL (HUMALOG MIX 75-25,U-100,INSULN) 100 units/mL susp as directed. - HYDROcodone-acetaminophen (NORCO) 5-325 mg per tablet hydrocodone 5 mg-acetaminophen 325 mg tablet TAKE 1 TO 2 TABLETS BY MOUTH EVERY DAY AT BEDTIME NEEDED - qxooucbf-pta-ftgb-FA-lutein (C[employer]UM SILVER WOMEN) 8 mg iron-400 mcg-300 [...] Pulses (more content not included)... [facility] 09-16-2021 Miscellaneous Notes Called and spoke to patient regarding L ankle fracture OS 09/12/21. Patient was seen at [facility] ED after falling she fell in [...] which facility was the patient seen at: [facility] / 09.12.2021 Was an appointment scheduled (Y/N): n Person calling if other than patient: n Return call to if other than patient: n Best contact number: [phone] Thank you, Peggy Saxena September 15, 2021 4:27 PM documented in this encounter [facility] 07-27-2021 Hospital Discharge instructions Patient Education [...] provider gives to you. In general: Take qoll-nuf-ttxbkbf and prescription medicines only as told by [...] 09/04/2014 Document Revised: 03/16/2018 Document Reviewed: 03/16/2018 [employer] Patient Education 2020 [employer]. 07/27/2021 10:06:53 Calorie Counting for Weight Loss [...] 02/07/2006 Document Revised: 10/27/2018 Document Reviewed: 01/07/2017 [employer] Patient Education 2020 [employer]. Follow Up Care 06/24/2021 14:48:04 With:VENKAT SAWYER, Jluis Jacinto, URL Address: [facility] [address], [place] [address] [phone] When:01/26/2022 Comments:[address] scan [facility] Evaluation + Plan note Future Appointments Appointment Date:02/01/2022 11:15:00 AM Scheduled Provider:Jluis ROBLEDO MD Location:[facility] Appointment Type:URO Office Visit Diagnostic Tests PendingBUN 07/27/21Creatinine 07/27/21 [facility] Evaluation + Plan note [facility] Evaluation note Diagnosis Closed fracture of left ankle, initial encounter- Primary [facility] Diagnosis Renal mass- Primary Unspecified disorder of kidney and ureter [facility] Diagnosis Renal mass, right- Primary Unspecified disorder of kidney and ureter Factor V Leiden (HCC) Primary hypercoagulable state Coronary artery disease involving [place] heart without angina pectoris, unspecified vessel or lesion type Smoker Tobacco use disorder Morbid obesity (HCC) Morbid obesity 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 mass Unspecified disorder of kidney and ureter [facility] Diagnosis Other specified disorders of kidney and ureter- Primary [facility] Work Phone: Evaluation note* Diagnosis Renal mass, right- Primary Unspecified disorder of kidney and ureter Family history of renal cancer Family history of malignant neoplasm of kidney Morbid obesity (HCC) Morbid obesity Current every day smoker Tobacco use disorder Other specified disorders of kidney and ureter [facility] Diagnosis Screening for genitourinary condition Screening for other and unspecified genitourinary condition [facility] Diagnosis Encounter for annual wellness visit (AWV) in Medicare patient- Primary Type 2 diabetes mellitus with diabetic neuropathy, with long-term current use of insulin ([facility]/HCC) CAD in [place] artery (CMS/HCC) Tobacco user Tobacco use disorder Malignant neoplasm of kidney, unspecified laterality (CMS/HCC) Type 2 diabetes mellitus with insulin therapy ([facility]/HCC) Routine general medical examination at health care facility Routine general medical examination at a health care facility [facility] encounter [facility]* Diagnosis CAD in [place] artery (CMS/HCC)- Primary [facility] Diagnosis Acute non-recurrent sinusitis of other sinus- Primary documented in this encounter [facility]* Diagnosis Onset Date Resolution Status Iron deficiency anemia acute [facility] Work Phone: Evaluation note* Diagnosis Renal mass- Primary Unspecified disorder of kidney and ureter [facility] Diagnosis Other specified disorders of kidney and ureter- Primary Renal mass Unspecified disorder of kidney and ureter Morbid obesity ([facility]) Morbid obesity Type 2 diabetes mellitus with diabetic neuropathy, with long-term current use of insulin ([facility]) [facility] Diagnosis Renal mass, right Unspecified disorder [...] [facility] Diagnosis Renal mass, right Unspecified disorder of kidney and ureter [facility] Diagnosis Acute right ankle pain- Primary Achilles tendon rupture, right, initial encounter documented in this encounter [facility]* Diagnosis Anemia, unspecified documented in this encounter [facility]* Diagnosis Type 2 diabetes mellitus with diabetic neuropathy, unspecified ([facility]/HCC) Diabetic neuropathy, painful ([facility]) Type II or unspecified type diabetes mellitus with neurological manifestations, not stated as uncontrolled Anxiety and depression ([facility]) documented in this encounter [facility]* Diagnosis Dizziness and giddiness- Primary documented in [facility] encounter [facility]* Diagnosis Encounter for annual wellness visit (AWV) in Medicare patient- Primary Type 2 diabetes mellitus with diabetic neuropathy, with long-term current use of insulin ([facility]) CAD in [place] artery ([facility]) Tobacco user Tobacco use disorder Malignant neoplasm of kidney, unspecified laterality ([facility]) Type 2 diabetes mellitus with insulin therapy ([facility]) Routine general medical examination at [facility] facility Routine general medical examination at a [facility] care facility Type 2 diabetes mellitus with insulin therapy ([facility])- Primary CAD in [place] artery ([facility]) Type 2 diabetes mellitus with diabetic neuropathy, with long-term current use of insulin ([facility]) Type 2 diabetes mellitus with diabetic neuropathy, unspecified ([facility]) Diabetic neuropathy, painful ([facility]) Type II or unspecified type diabetes mellitus with neurological manifestations, not stated as uncontrolled Anxiety and depression ([facility]) Anemia, unspecified type Gastroesophageal reflux disease without esophagitis Esophageal reflux Hypertriglyceridemia ([facility]) Pure hyperglyceridemia Bilateral lower extremity edema Chronic bronchitis, unspecified chronic bronchitis type ([facility]) Class 3 severe obesity with serious comorbidity and body mass index (BMI) of 45.0 to 49.9 in adult, unspecified obesity type ([facility]) Factor V Leiden ([facility]) Primary hypercoagulable state Tobacco user Tobacco use disorder ELENA (obstructive sleep apnea) Obstructive sleep apnea (adult) (pediatric) Environmental and seasonal allergies Type 2 diabetes mellitus with insulin therapy ([facility])- Primary Peripheral vascular disease, unspecified ([facility]) Peripheral vascular disease, unspecified Atherosclerosis of aorta ([facility]) Atherosclerosis of aorta Diabetic neuropathy, painful ([facility]) Type II or unspecified type diabetes mellitus with neurological manifestations, not stated as uncontrolled Type 2 diabetes mellitus with diabetic neuropathy, with long-term current use of insulin ([facility]) CAD in [place] artery ([facility]) Bilateral lower extremity edema Class 3 severe obesity with serious comorbidity and body mass index (BMI) of 45.0 to 49.9 in adult, unspecified obesity type ([facility]) Environmental and seasonal allergies documented in this encounter [facility]* Diagnosis Encounter for annual wellness visit (AWV) in Medicare patient- Primary Type 2 diabetes mellitus with diabetic neuropathy, with long-term current use of insulin ([facility]) CAD in [place] artery ([facility]) Tobacco user Tobacco use disorder Malignant neoplasm of kidney, unspecified laterality ([facility]) Type 2 diabetes mellitus with insulin therapy ([facility]) Routine general medical examination at health care facility Routine general medical examination at a health care facility Type 2 diabetes mellitus with insulin therapy ([facility])- Primary CAD in [place] artery ([facility]) Type 2 diabetes mellitus with diabetic neuropathy, with long-term current use of insulin ([facility]) Type 2 diabetes mellitus with diabetic neuropathy, unspecified ([facility]) Diabetic neuropathy, painful ([facility]) Type II or unspecified type diabetes mellitus with neurological manifestations, not stated as uncontrolled Anxiety and depression ([facility]) Anemia, unspecified type Gastroesophageal reflux disease without esophagitis Esophageal reflux Hypertriglyceridemia ([facility]) Pure hyperglyceridemia Bilateral lower extremity edema Chronic bronchitis, unspecified chronic bronchitis type ([facility]) Class 3 severe obesity with serious comorbidity and body mass index (BMI) of 45.0 to 49.9 in adult, unspecified obesity type ([facility]) Factor V Leiden ([facility]) Primary hypercoagulable state Tobacco user Tobacco use disorder ELENA (obstructive sleep apnea) Obstructive sleep apnea (adult) (pediatric) Environmental and seasonal allergies Type 2 diabetes mellitus with insulin therapy ([facility])- Primary Peripheral vascular disease, unspecified ([facility]) Peripheral vascular disease, unspecified Atherosclerosis of aorta ([facility]) Atherosclerosis of aorta Diabetic neuropathy, painful ([facility]) Type II or unspecified type diabetes mellitus with neurological manifestations, not stated as uncontrolled Type 2 diabetes mellitus with diabetic neuropathy, with long-term current use of insulin ([facility]) CAD in [place] artery ([facility]) Bilateral lower extremity edema Class 3 severe obesity with serious comorbidity and body mass index (BMI) of 45.0 to 49.9 in adult, unspecified obesity type ([facility]/HCC) Benign paroxysmal positional vertigo, unspecified laterality- Primary ELENA (obstructive sleep apnea) Obstructive sleep apnea (adult) (pediatric) Class 3 severe obesity with serious comorbidity and body mass index (BMI) of 45.0 to 49.9 in adult, unspecified obesity type ([facility]/HCC) Diabetic peripheral neuropathy associated with type 2 diabetes mellitus ([facility]) Hypersomnia Hypersomnia, unspecified Dizziness and giddiness documented [facility] encounter [facility] Diagnosis Encounter for annual wellness visit (AWV) in Medicare patient- Primary Type 2 diabetes mellitus with diabetic neuropathy, with long-term current use of insulin ([facility]) CAD in [place] artery ([facility]) Tobacco user Tobacco use disorder Malignant neoplasm of kidney, unspecified laterality ([facility]) Type 2 diabetes mellitus with insulin therapy ([facility]) Routine general medical examination at health care facility Routine general medical examination at a health care facility Type 2 diabetes mellitus with insulin therapy ([facility])- Primary CAD in [place] artery ([facility]) Type 2 diabetes mellitus with diabetic neuropathy, with long-term current use of insulin ([facility]) Type 2 diabetes mellitus with diabetic neuropathy, unspecified ([facility]) Diabetic neuropathy, painful ([facility]) Type II or unspecified type diabetes mellitus with neurological manifestations, not stated as uncontrolled Anxiety and depression ([facility]) Anemia, unspecified type Gastroesophageal reflux disease without esophagitis Esophageal reflux Hypertriglyceridemia ([facility]) Pure hyperglyceridemia Bilateral lower extremity edema Chronic bronchitis, unspecified chronic bronchitis type ([facility]) Class 3 severe obesity with serious comorbidity and body mass index (BMI) of 45.0 to 49.9 in adult, unspecified obesity type ([facility]) Factor V Leiden ([facility]) Primary hypercoagulable state Tobacco user Tobacco use disorder ELENA (obstructive sleep apnea) Obstructive sleep apnea (adult) (pediatric) Environmental and seasonal allergies Type 2 diabetes mellitus with insulin therapy ([facility])- Primary Peripheral vascular disease, unspecified ([facility]) Peripheral vascular disease, unspecified Atherosclerosis of aorta ([facility]) Atherosclerosis of aorta Diabetic neuropathy, painful ([facility]) Type II or unspecified type diabetes mellitus with neurological manifestations, not stated as uncontrolled Type 2 diabetes mellitus with diabetic neuropathy, with long-term current use of insulin ([facility]) CAD in [place] artery ([facility]) Bilateral lower extremity edema Class 3 severe obesity with serious comorbidity and body mass index (BMI) of 45.0 to 49.9 in adult, unspecified obesity type ([facility]) Rupture of right Achilles tendon, subsequent encounter- Primary Right knee pain, unspecified chronicity Arthritis of right knee documented in this encounter [facility]* Diagnosis Encounter for annual wellness visit (AWV) in Medicare patient- Primary Type 2 diabetes mellitus with diabetic neuropathy, with long-term current use of insulin ([facility]) CAD in [place] artery ([facility]/HCC) Tobacco user Tobacco use disorder Malignant neoplasm of kidney, unspecified laterality ([facility]) Type 2 diabetes mellitus with insulin therapy ([facility]) Routine general medical examination at health care facility Routine general medical examination at a health care facility Type 2 diabetes mellitus with insulin therapy ([facility])- Primary CAD in [place] artery ([facility]) Type 2 diabetes mellitus with diabetic neuropathy, with long-term current use of insulin ([facility]) Type 2 diabetes mellitus with diabetic neuropathy, unspecified ([facility]) Diabetic neuropathy, painful ([facility]) Type II or unspecified type diabetes mellitus with neurological manifestations, not stated as uncontrolled Anxiety and depression ([facility]) Anemia, unspecified type Gastroesophageal reflux disease without esophagitis Esophageal reflux Hypertriglyceridemia ([facility]) Pure hyperglyceridemia Bilateral lower extremity edema Chronic bronchitis, unspecified chronic bronchitis type ([facility]) Class 3 severe obesity with serious comorbidity and body mass index (BMI) of 45.0 to 49.9 in adult, unspecified obesity type ([facility]) Factor V Leiden ([facility]) Primary hypercoagulable state Tobacco user Tobacco use disorder ELENA (obstructive sleep apnea) Obstructive sleep apnea (adult) (pediatric) Environmental and seasonal allergies Type 2 diabetes mellitus with insulin therapy ([facility])- Primary Peripheral vascular disease, unspecified ([facility]) Peripheral vascular disease, unspecified Atherosclerosis of aorta ([facility]) Atherosclerosis of aorta Diabetic neuropathy, painful ([facility]) Type II or unspecified type diabetes mellitus with neurological manifestations, not stated as uncontrolled Type 2 diabetes mellitus with diabetic neuropathy, with long-term current use of insulin ([facility]) CAD in [place] artery ([facility]) Bilateral lower extremity edema Class 3 severe obesity with serious comorbidity and body mass index (BMI) of 45.0 to 49.9 in adult, unspecified obesity type ([facility]) Chronic back pain, unspecified back location, unspecified back pain laterality Environmental and seasonal allergies Type 2 diabetes mellitus with diabetic neuropathy, with long-term current use of insulin ([facility]) documented [facility] encounter [facility] Diagnosis Encounter for annual wellness visit (AWV) in Medicare patient- Primary Type 2 diabetes mellitus with diabetic neuropathy, with long-term current use of insulin ([facility]) CAD in [place] artery ([facility]) Tobacco user Tobacco use disorder Malignant neoplasm of kidney, unspecified laterality ([facility]) Type 2 diabetes mellitus with insulin therapy ([facility]) Routine general medical examination at health care facility Routine general medical examination at a [facility] facility Type 2 diabetes mellitus with insulin therapy ([facility])- Primary CAD in [place] artery ([facility]) Type 2 diabetes mellitus with diabetic neuropathy, with long-term current use of insulin ([facility]) Type 2 diabetes mellitus with diabetic neuropathy, unspecified ([facility]) Diabetic neuropathy, painful ([facility]) Type II or unspecified type diabetes mellitus with neurological manifestations, not stated as uncontrolled Anxiety and depression ([facility]) Anemia, unspecified type Gastroesophageal reflux disease without esophagitis Esophageal reflux Hypertriglyceridemia ([facility]) Pure hyperglyceridemia Bilateral lower extremity edema Chronic bronchitis, unspecified chronic bronchitis type ([facility]) Class 3 severe obesity with serious comorbidity and body mass index (BMI) of 45.0 to 49.9 in adult, unspecified obesity type ([facility]) Factor V Leiden ([facility]) Primary hypercoagulable state Tobacco user Tobacco use disorder ELENA (obstructive sleep apnea) Obstructive sleep apnea (adult) (pediatric) Environmental and seasonal allergies Type 2 diabetes mellitus with insulin therapy ([facility])- Primary Peripheral vascular disease, unspecified ([facility]) Peripheral vascular disease, unspecified Atherosclerosis of aorta ([facility]) Atherosclerosis of aorta Diabetic neuropathy, painful ([facility]) Type II or unspecified type diabetes mellitus with neurological manifestations, not stated as uncontrolled Type 2 diabetes mellitus with diabetic neuropathy, with long-term current use of insulin ([facility]) CAD in [place] ([facility]) Bilateral lower extremity edema Class 3 severe obesity with serious comorbidity and body mass index (BMI) of 45.0 to 49.9 in adult, unspecified obesity type ([facility]) Type 2 diabetes mellitus with diabetic neuropathy, with long-term current use of insulin ([facility])- Primary Type 2 diabetes mellitus with diabetic chronic kidney disease ([facility]) Chronic kidney disease, stage 3a (HCC) ([facility]) ELENA (obstructive sleep apnea) Obstructive sleep apnea (adult) (pediatric) PAD (peripheral artery disease) ([facility]) Unspecified peripheral vascular disease CAD in [place] ([facility]) Gastroesophageal reflux disease without esophagitis Esophageal reflux Primary hypertension ([facility]) Unspecified essential hypertension Type 2 diabetes mellitus with insulin therapy ([facility]) Class 3 severe obesity with serious comorbidity and body mass index (BMI) of 45.0 to 49.9 in adult, unspecified obesity type ([facility]) Type 2 diabetes mellitus with retinopathy of both eyes, with long-term current use of insulin, macular edema presence unspecified, unspecified retinopathy severity ([facility]) Factor V Leiden ([facility]) Primary hypercoagulable state Encounter for screening mammogram for malignant neoplasm of breast documented in this encounter [facility] HealthcareEvaluation note* Diagnosis Encounter for annual wellness visit (AWV) in Medicare patient- Primary Type 2 diabetes mellitus with diabetic neuropathy, with long-term current use of insulin ([facility]) CAD in [place] ([facility]) Tobacco user Tobacco use disorder Malignant neoplasm of kidney, unspecified laterality ([facility]) Type 2 diabetes mellitus with insulin therapy ([facility]) Routine general medical examination at health care facility Routine general medical examination at a health care facility Type 2 diabetes mellitus with insulin therapy ([facility])- Primary CAD in [place] ([facility]) Type 2 diabetes mellitus with diabetic neuropathy, with long-term current use of insulin ([facility]) Type 2 diabetes mellitus with diabetic neuropathy, unspecified ([facility]) Diabetic neuropathy, painful ([facility]) Type II or unspecified type diabetes mellitus with neurological manifestations, not stated as uncontrolled Anxiety and depression ([facility]) Anemia, unspecified type Gastroesophageal reflux disease without esophagitis Esophageal reflux Hypertriglyceridemia ([facility]) Pure hyperglyceridemia Bilateral lower extremity edema Chronic bronchitis, unspecified chronic bronchitis type ([facility]) Class 3 severe obesity with serious comorbidity and body mass index (BMI) of 45.0 to 49.9 in adult, unspecified obesity type ([facility]) Factor V Leiden ([facility]) Primary hypercoagulable state Tobacco user Tobacco use disorder ELENA (obstructive sleep apnea) Obstructive sleep apnea (adult) (pediatric) Environmental and seasonal allergies Type 2 diabetes mellitus with insulin therapy ([facility])- Primary Peripheral vascular disease, unspecified ([facility]) Peripheral vascular disease, unspecified Atherosclerosis of aorta ([facility]) Atherosclerosis of aorta Diabetic neuropathy, painful ([facility]) Type II or unspecified type diabetes mellitus with neurological manifestations, not stated as uncontrolled Type 2 diabetes mellitus with diabetic neuropathy, with long-term current use of insulin ([facility]) CAD in [place] ([facility]) Bilateral lower extremity edema Class 3 severe obesity with serious comorbidity and body mass index (BMI) of 45.0 to 49.9 in adult, unspecified obesity type ([facility]) Type 2 diabetes mellitus with diabetic neuropathy, with long-term current use of insulin ([facility])- Primary Type 2 diabetes mellitus with diabetic chronic kidney disease ([facility]) Chronic kidney disease, stage 3a ([facility]) ([facility]) ELENA (obstructive sleep apnea) Obstructive sleep apnea (adult) (pediatric) PAD (peripheral artery disease) ([facility]) Unspecified peripheral vascular disease CAD in [place] ([facility] Gastroesophageal reflux disease without esophagitis Esophageal reflux Primary hypertension ([facility]) Unspecified essential hypertension Type 2 diabetes mellitus with insulin therapy ([facility]) Class 3 severe obesity with serious comorbidity and body mass index (BMI) of 45.0 to 49.9 in adult, unspecified obesity type ([facility]) Type 2 diabetes mellitus with retinopathy of both eyes, with long-term current use of insulin, macular edema presence unspecified, unspecified retinopathy severity ([facility]) Factor V Leiden ([facility]) Primary hypercoagulable state Encounter for screening mammogram for malignant neoplasm of breast Ruptured, tendon, Achilles, right, subsequent encounter- Primary documented in this encounter [facility] HealthcareEvaluation note* Diagnosis Type 2 diabetes mellitus with insulin therapy ([facility])- Primary Peripheral vascular disease, unspecified ([facility]) Peripheral vascular disease, unspecified Atherosclerosis of aorta ([facility]) Atherosclerosis of aorta Diabetic neuropathy, painful ([facility]) Type II or unspecified type diabetes mellitus with neurological manifestations, not stated as uncontrolled Type 2 diabetes mellitus with diabetic neuropathy, with long-term current use of insulin ([facility]) CAD in [place] ([facility]) Bilateral lower extremity edema Class 3 severe obesity with serious comorbidity and body mass index (BMI) of 45.0 to 49.9 in adult, unspecified obesity type ([facility]) documented in this encounter [facility] HealthcareEvaluation note* Diagnosis Type 2 diabetes mellitus with diabetic neuropathy, with long-term current use of insulin ([facility]) Type 2 diabetes mellitus without complications ([facility]) documented in this encounter [facility]Evaluation note* Diagnosis Bilateral lower extremity edema Gastroesophageal reflux disease without esophagitis Esophageal reflux documented in this encounter [facility] HealthcareEvaluation note* Diagnosis Hypertriglyceridemia ([facility]) Pure hyperglyceridemia documented in this encounter [facility] HealthcareEvaluation note* Diagnosis Encounter for annual wellness visit (AWV) in Medicare patient- Primary Type 2 diabetes mellitus with diabetic neuropathy, with long-term current use of insulin ([facility]) CAD in [place] ([facility]) Tobacco user Tobacco use disorder Malignant neoplasm of kidney, unspecified laterality ([facility]) Type 2 diabetes mellitus with insulin therapy ([facility]) Routine general medical examination at [facility] care facility Routine general medical examination at a [facility] care facility Type 2 diabetes mellitus with insulin therapy ([facility])- Primary CAD in [place] ([facility]) Type 2 diabetes mellitus with diabetic neuropathy, with long-term current use of insulin ([facility]) Type 2 diabetes mellitus with diabetic neuropathy, unspecified ([facility]) Diabetic neuropathy, painful ([facility]) Type II or unspecified type diabetes mellitus with neurological manifestations, not stated as uncontrolled Anxiety and depression ([facility]) Anemia, unspecified type Gastroesophageal reflux disease without esophagitis Esophageal reflux Hypertriglyceridemia ([facility]) Pure hyperglyceridemia Bilateral lower extremity edema Chronic bronchitis, unspecified chronic bronchitis type ([facility]) Class 3 severe obesity with serious comorbidity and body mass index (BMI) of 45.0 to 49.9 in adult, unspecified obesity type ([facility]) Factor V Leiden ([facility]) Primary hypercoagulable state Tobacco user Tobacco use disorder ELENA (obstructive sleep apnea) Obstructive sleep apnea (adult) (pediatric) Environmental and seasonal allergies Type 2 diabetes mellitus with insulin therapy ([facility])- Primary Peripheral vascular disease, unspecified ([facility]) Peripheral vascular disease, unspecified Atherosclerosis of aorta ([facility]) Atherosclerosis of aorta Diabetic neuropathy, painful ([facility]) Type II or unspecified type diabetes mellitus with neurological manifestations, not stated as uncontrolled Type 2 diabetes mellitus with diabetic neuropathy, with long-term current use of insulin ([facility]) CAD in [place] ([facility]) Bilateral lower extremity edema Class 3 severe obesity with serious comorbidity and body mass index (BMI) of 45.0 to 49.9 in adult, unspecified obesity type ([facility]) Type 2 diabetes mellitus with diabetic neuropathy, with long-term current use of insulin ([facility])- Primary Type 2 diabetes mellitus with diabetic chronic kidney disease ([facility]) Chronic kidney disease, stage 3a (HCC) ([facility]) ELENA (obstructive sleep apnea) Obstructive sleep apnea (adult) (pediatric) PAD (peripheral artery disease) ([facility]) Unspecified peripheral vascular disease CAD in [place] ([facility] Gastroesophageal reflux disease without esophagitis Esophageal reflux Primary hypertension ([facility]) Unspecified essential hypertension Type 2 diabetes mellitus with insulin therapy ([facility]) Class 3 severe obesity with serious comorbidity and body mass index (BMI) of 45.0 to 49.9 in adult, unspecified obesity type ([facility]) Type 2 diabetes mellitus with retinopathy of both eyes, with long-term current use of insulin, macular edema presence unspecified, unspecified retinopathy severity ([facility]) Factor V Leiden ([facility]) Primary hypercoagulable state Encounter for screening mammogram for malignant neoplasm of breast Internal derangement of right knee- Primary documented in this encounter [facility] HealthcareEvaluation note* Diagnosis Encounter for annual wellness visit (AWV) in Medicare patient- Primary Type 2 diabetes mellitus with diabetic neuropathy, with long-term current use of insulin ([facility]) CAD in [place] ([facility]) Tobacco user Tobacco use disorder Malignant neoplasm of kidney, unspecified laterality ([facility]) Type 2 diabetes mellitus with insulin therapy ([facility]) Routine general medical examination at health care facility Routine general medical examination at a health care facility Type 2 diabetes mellitus with insulin therapy ([facility])- Primary CAD in [place] ([facility]) Type 2 diabetes mellitus with diabetic neuropathy, with long-term current use of insulin ([facility]) Type 2 diabetes mellitus with diabetic neuropathy, unspecified ([facility]) Diabetic neuropathy, painful ([facility]) Type II or unspecified type diabetes mellitus with neurological manifestations, not stated as uncontrolled Anxiety and depression ([facility]) Anemia, unspecified type Gastroesophageal reflux disease without esophagitis Esophageal reflux Hypertriglyceridemia ([facility]) Pure hyperglyceridemia Bilateral lower extremity edema Chronic bronchitis, unspecified chronic bronchitis type ([facility]) Class 3 severe obesity with serious comorbidity and body mass index (BMI) of 45.0 to 49.9 in adult, unspecified obesity type ([facility]) Factor V Leiden ([facility]) Primary hypercoagulable state Tobacco user Tobacco use disorder ELENA (obstructive sleep apnea) Obstructive sleep apnea (adult) (pediatric) Environmental and seasonal allergies Type 2 diabetes mellitus with insulin therapy ([facility])- Primary Peripheral vascular disease, unspecified (CMS/HCC) Peripheral vascular disease, unspecified Atherosclerosis of aorta ([facility]) Atherosclerosis of aorta Diabetic neuropathy, painful ([facility]) Type II or unspecified type diabetes mellitus with neurological manifestations, not stated as uncontrolled Type 2 diabetes mellitus with diabetic neuropathy, with long-term current use of insulin ([facility]) CAD in [place] ([facility]) Bilateral lower extremity edema Class 3 severe obesity with serious comorbidity and body mass index (BMI) of 45.0 to 49.9 in adult, unspecified obesity type ([facility]) Type 2 diabetes mellitus with diabetic neuropathy, with long-term current use of insulin ([facility])- Primary Type 2 diabetes mellitus with diabetic chronic kidney disease ([facility]) Chronic kidney disease, stage 3a (HCC) ([facility]) ELENA (obstructive sleep apnea) Obstructive sleep apnea (adult) (pediatric) PAD (peripheral artery disease) ([facility]) Unspecified peripheral vascular disease CAD in [place] ([facility] Gastroesophageal reflux disease without esophagitis Esophageal reflux Primary hypertension ([facility]) Unspecified essential hypertension Type 2 diabetes mellitus with insulin therapy ([facility]) Class 3 severe obesity with serious comorbidity and body mass index (BMI) of 45.0 to 49.9 in adult, unspecified obesity type ([facility]) Type 2 diabetes mellitus with retinopathy of both eyes, with long-term current use of insulin, macular edema presence unspecified, unspecified retinopathy severity ([facility]) Factor V Leiden ([facility] Primary hypercoagulable state Encounter for screening mammogram for malignant neoplasm of breast Factor V Leiden ([facility]) Primary hypercoagulable state Hypertriglyceridemia ([facility]) Pure hyperglyceridemia documented in this encounter [facility] HealthcareEvaluation note* Diagnosis Encounter for annual wellness visit (AWV) in Medicare patient- Primary Type 2 diabetes mellitus with diabetic neuropathy, with long-term current use of insulin ([facility]) CAD in [place] ([facility]) Tobacco user Tobacco use disorder Malignant neoplasm of kidney, unspecified laterality ([facility]) Type 2 diabetes mellitus with insulin therapy ([facility]) Routine general medical examination at health care facility Routine general medical examination at a health care facility Type 2 diabetes mellitus with insulin therapy ([facility])- Primary CAD in [place] ([facility]) Type 2 diabetes mellitus with diabetic neuropathy, with long-term current use of insulin ([facility]) Type 2 diabetes mellitus with diabetic neuropathy, unspecified ([facility]) Diabetic neuropathy, painful ([facility]) Type II or unspecified type diabetes mellitus with neurological manifestations, not stated as uncontrolled Anxiety and depression ([facility]) Anemia, unspecified type Gastroesophageal reflux disease without esophagitis Esophageal reflux Hypertriglyceridemia ([facility]) Pure hyperglyceridemia Bilateral lower extremity edema Chronic bronchitis, unspecified chronic bronchitis type ([facility]) Class 3 severe obesity with serious comorbidity and body mass index (BMI) of 45.0 to 49.9 in adult, unspecified obesity type ([facility]) Factor V Leiden ([facility]) Primary hypercoagulable state Tobacco user Tobacco use disorder ELENA (obstructive sleep apnea) Obstructive sleep apnea (adult) (pediatric) Environmental and seasonal allergies Type 2 diabetes mellitus with insulin therapy ([facility])- Primary Peripheral vascular disease, unspecified ([facility]) Peripheral vascular disease, unspecified Atherosclerosis of aorta ([facility]) Atherosclerosis of aorta Diabetic neuropathy, painful ([facility]) Type II or unspecified type diabetes mellitus with neurological manifestations, not stated as uncontrolled Type 2 diabetes mellitus with diabetic neuropathy, with long-term current use of insulin ([facility]) CAD in [place] ([facility]) Bilateral lower extremity edema Class 3 severe obesity with serious comorbidity and body mass index (BMI) of 45.0 to 49.9 in adult, unspecified obesity type ([facility]) Type 2 diabetes mellitus with diabetic neuropathy, with long-term current use of insulin ([facility])- Primary Type 2 diabetes mellitus with diabetic chronic kidney disease ([facility]) Chronic kidney disease, stage 3a (HCC) ([facility]) ELENA (obstructive sleep apnea) Obstructive sleep apnea (adult) (pediatric) PAD (peripheral artery disease) ([facility]) Unspecified peripheral vascular disease CAD in [place] ([facility] Gastroesophageal reflux disease without esophagitis Esophageal reflux Primary hypertension ([facility]) Unspecified essential hypertension Type 2 diabetes mellitus with insulin therapy ([facility]) Class 3 severe obesity with serious comorbidity and body mass index (BMI) of 45.0 to 49.9 in adult, unspecified obesity type ([facility]) Type 2 diabetes mellitus with retinopathy of both eyes, with long-term current use of insulin, macular edema presence unspecified, unspecified retinopathy severity ([facility]) Factor V Leiden ([facility] Primary hypercoagulable state Encounter for screening mammogram [...] neuropathy, with long-term current use of insulin ([facility]) CAD in [place] artery ([facility]) Tobacco user Tobacco use disorder Malignant neoplasm of kidney, unspecified laterality ([facility]) Type 2 diabetes mellitus with insulin therapy ([facility]) Routine general medical examination at [facility] Routine general medical examination at a [facility] Type 2 diabetes mellitus with insulin therapy ([facility])- Primary CAD in [place] artery ([facility]) Type 2 diabetes mellitus with diabetic neuropathy, with long-term current use of insulin ([facility]) Type 2 diabetes mellitus with diabetic neuropathy, unspecified ([facility]) Diabetic neuropathy, painful ([facility]) Type II or unspecified type diabetes mellitus with neurological manifestations, not stated as uncontrolled Anxiety and depression ([facility]) Anemia, unspecified type Gastroesophageal reflux disease without esophagitis Esophageal reflux Hypertriglyceridemia ([facility]) Pure hyperglyceridemia Bilateral lower extremity edema Chronic bronchitis, unspecified chronic bronchitis type ([facility]) Class 3 severe obesity with serious comorbidity and body mass index (BMI) of 45.0 to 49.9 in adult, unspecified obesity type ([facility]) Factor V Leiden ([facility]) Primary hypercoagulable state Tobacco user Tobacco use disorder ELENA (obstructive sleep apnea) Obstructive sleep apnea (adult) (pediatric) Environmental and seasonal allergies Type 2 diabetes mellitus with insulin therapy ([facility])- Primary Peripheral vascular disease, unspecified ([facility]) Peripheral vascular disease, unspecified Atherosclerosis of aorta ([facility]) Atherosclerosis of aorta Diabetic neuropathy, painful ([facility]) Type II or unspecified type diabetes mellitus with neurological manifestations, not stated as uncontrolled Type 2 diabetes mellitus with diabetic neuropathy, with long-term current use of insulin ([facility]) CAD in [place] ([facility]) Bilateral lower extremity edema Class 3 severe obesity with serious comorbidity and body mass index (BMI) of 45.0 to 49.9 in adult, unspecified obesity type ([facility]) Type 2 diabetes mellitus with diabetic neuropathy, with long-term current use of insulin ([facility])- Primary Type 2 diabetes mellitus with diabetic chronic kidney disease ([facility]) Chronic kidney disease, stage 3a (HCC) ([facility]) ELENA (obstructive sleep apnea) Obstructive sleep apnea (adult) (pediatric) PAD (peripheral artery disease) ([facility]) Unspecified peripheral vascular disease CAD in [place] ([facility]) Gastroesophageal reflux disease without esophagitis Esophageal reflux Primary hypertension ([facility]) Unspecified essential hypertension Type 2 diabetes mellitus with insulin therapy ([facility]) Class 3 severe obesity with serious comorbidity and body mass index (BMI) of 45.0 to 49.9 in adult, unspecified obesity type ([facility]) Type 2 diabetes mellitus with retinopathy of both eyes, with long-term current use of insulin, macular edema presence unspecified, unspecified retinopathy severity ([facility]) Factor V Leiden ([facility]) Primary hypercoagulable state Encounter for screening mammogram for malignant neoplasm of breast Acute pain of right knee- Primary Ruptured, tendon, Achilles, right, subsequent encounter Primary osteoarthritis of right knee documented in this encounter [facility]* Diagnosis Encounter for annual wellness visit (AWV) in Medicare patient- Primary Type 2 diabetes mellitus with diabetic neuropathy, with long-term current use of insulin ([facility]) CAD in [place] artery ([facility]) Tobacco user Tobacco use disorder Malignant neoplasm of kidney, unspecified laterality ([facility]) Type 2 diabetes mellitus with insulin therapy ([facility]) Routine general medical examination at health care facility Routine general medical examination at a health care facility Type 2 diabetes mellitus with insulin therapy ([facility])- Primary CAD in [place] ([facility]) Type 2 diabetes mellitus with diabetic neuropathy, with long-term current use of insulin ([facility]) Type 2 diabetes mellitus with diabetic neuropathy, unspecified ([facility]) Diabetic neuropathy, painful ([facility]) Type II or unspecified type diabetes mellitus with neurological manifestations, not stated as uncontrolled Anxiety and depression ([facility]) Anemia, unspecified type Gastroesophageal reflux disease without esophagitis Esophageal reflux Hypertriglyceridemia ([facility]) Pure hyperglyceridemia Bilateral lower extremity edema Chronic bronchitis, unspecified chronic bronchitis type ([facility]) Class 3 severe obesity with serious comorbidity and body mass index (BMI) of 45.0 to 49.9 in adult, unspecified obesity type (CMS/HCC) Factor V Leiden ([facility]) Primary hypercoagulable state Tobacco user Tobacco use disorder ELENA (obstructive sleep apnea) Obstructive sleep apnea (adult) (pediatric) Environmental and seasonal allergies Type 2 diabetes mellitus with insulin therapy ([facility])- Primary Peripheral vascular disease, unspecified (CMS/HCC) Peripheral vascular disease, unspecified Atherosclerosis of aorta ([facility]) Atherosclerosis of aorta Diabetic neuropathy, painful ([facility]) Type II or unspecified type diabetes mellitus with neurological manifestations, not stated as uncontrolled Type 2 diabetes mellitus with diabetic neuropathy, with long-term current use of insulin ([facility]) CAD in [place] ([facility]) Bilateral lower extremity edema Class 3 severe obesity with serious comorbidity and body mass index (BMI) of 45.0 to 49.9 in adult, unspecified obesity type ([facility]) Type 2 diabetes mellitus with diabetic neuropathy, with long-term current use of insulin ([facility])- Primary Type 2 diabetes mellitus with diabetic chronic kidney disease ([facility]) Chronic kidney disease, stage 3a (HCC) ([facility]) ELENA (obstructive sleep apnea) Obstructive sleep apnea (adult) (pediatric) PAD (peripheral artery disease) ([facility]) Unspecified peripheral vascular disease CAD in [place] ([facility] Gastroesophageal reflux disease without esophagitis Esophageal reflux Primary hypertension ([facility]) Unspecified essential hypertension Type 2 diabetes mellitus with insulin therapy ([facility]) Class 3 severe obesity with serious comorbidity and body mass index (BMI) of 45.0 to 49.9 in adult, unspecified obesity type ([facility]) Type 2 diabetes mellitus with retinopathy of both eyes, with long-term current use of insulin, macular edema presence unspecified, unspecified retinopathy severity ([facility]) Factor V Leiden ([facility]) Primary hypercoagulable state Encounter for screening mammogram for malignant neoplasm of breast Anemia, unspecified Type 2 diabetes mellitus without complications ([facility]/HCC) documented in this encounter [facility]* Diagnosis Encounter for annual wellness visit (AWV) in Medicare patient- Primary Type 2 diabetes mellitus with diabetic neuropathy, with long-term current use of insulin ([facility]) CAD in [place] (CMS/[facility]) Tobacco user Tobacco use disorder Malignant neoplasm of kidney, unspecified laterality ([facility]) Type 2 diabetes mellitus with insulin therapy ([facility]) Routine general medical examination at health care facility Routine general medical examination at a [facility] Type 2 diabetes mellitus with insulin therapy ([facility])- Primary CAD in [place] ([facility]) Type 2 diabetes mellitus with diabetic neuropathy, with long-term current use of insulin ([facility]) Type 2 diabetes mellitus with diabetic neuropathy, unspecified ([facility]) Diabetic neuropathy, painful ([facility]) Type II or unspecified type diabetes mellitus with neurological manifestations, not stated as uncontrolled Anxiety and depression ([facility]) Anemia, unspecified type Gastroesophageal reflux disease without esophagitis Esophageal reflux Hypertriglyceridemia ([facility]) Pure hyperglyceridemia Bilateral lower extremity edema Chronic bronchitis, unspecified chronic bronchitis type ([facility]) Class 3 severe obesity with serious comorbidity and body mass index (BMI) of 45.0 to 49.9 in adult, unspecified obesity type ([facility]) Factor V Leiden ([facility]) Primary hypercoagulable state Tobacco user Tobacco use disorder ELENA (obstructive sleep apnea) Obstructive sleep apnea (adult) (pediatric) Environmental and seasonal allergies Type 2 diabetes mellitus with insulin therapy ([facility])- Primary Peripheral vascular disease, unspecified ([facility]) Peripheral vascular disease, unspecified Atherosclerosis of aorta ([facility]) Atherosclerosis of aorta Diabetic neuropathy, painful ([facility]) Type II or unspecified type diabetes mellitus with neurological manifestations, not stated as uncontrolled Type 2 diabetes mellitus with diabetic neuropathy, with long-term current use of insulin ([facility]) CAD in [place] ([facility]) Bilateral lower extremity edema Class 3 severe obesity with serious comorbidity and body mass index (BMI) of 45.0 to 49.9 in adult, unspecified obesity type ([facility]) Type 2 diabetes mellitus with diabetic neuropathy, with long-term current use of insulin ([facility])- Primary Type 2 diabetes mellitus with diabetic chronic kidney disease ([facility]) Chronic kidney disease, stage 3a (HCC) ([facility]) ELENA (obstructive sleep apnea) Obstructive sleep apnea (adult) (pediatric) PAD (peripheral artery disease) ([facility]) Unspecified peripheral vascular disease CAD in [place] artery ([facility]) Gastroesophageal reflux disease without esophagitis Esophageal reflux Primary hypertension ([facility]) Unspecified essential hypertension Type 2 diabetes mellitus with insulin therapy ([facility]) Class 3 severe obesity with serious comorbidity and body mass index (BMI) of 45.0 to 49.9 in adult, unspecified obesity type ([facility]/HCC) Type 2 diabetes mellitus with retinopathy of both eyes, with long-term current use of insulin, macular edema presence unspecified, unspecified retinopathy severity ([facility]) Factor V Leiden ([facility]) Primary hypercoagulable state Encounter for screening mammogram for malignant neoplasm of breast Atherosclerotic heart disease of [place] coronary artery without angina pectoris ([facility]) documented in this encounter [facility] HealthcareEvaluation [facility]* Diagnosis Encounter for annual wellness visit (AWV) in Medicare patient- Primary Type 2 diabetes mellitus with diabetic neuropathy, with long-term current use of insulin ([facility]) CAD in [place] ([facility]) Tobacco user Tobacco use disorder Malignant neoplasm of kidney, unspecified laterality ([facility]) Type 2 diabetes mellitus with insulin therapy ([facility]) Routine general medical examination at health care facility Routine general medical examination at a health care facility Type 2 diabetes mellitus with insulin therapy ([facility])- Primary CAD in [place] ([facility]) Type 2 diabetes mellitus with diabetic neuropathy, with long-term current use of insulin ([facility]) Type 2 diabetes mellitus with diabetic neuropathy, unspecified ([facility]) Diabetic neuropathy, painful ([facility]) Type II or unspecified type diabetes mellitus with neurological manifestations, not stated as uncontrolled Anxiety and depression ([facility]) Anemia, unspecified type Gastroesophageal reflux disease without esophagitis Esophageal reflux Hypertriglyceridemia ([facility]) Pure hyperglyceridemia Bilateral lower extremity edema Chronic bronchitis, unspecified chronic bronchitis type ([facility]) Class 3 severe obesity with serious comorbidity and body mass index (BMI) of 45.0 to 49.9 in adult, unspecified obesity type ([facility]/HCC) Factor V Leiden ([facility]) Primary hypercoagulable state Tobacco user Tobacco use disorder ELENA (obstructive sleep apnea) Obstructive sleep apnea (adult) (pediatric) Environmental and seasonal allergies Type 2 diabetes mellitus with insulin therapy ([facility])- Primary Peripheral vascular disease, unspecified (CMS/HCC) Peripheral vascular disease, unspecified Atherosclerosis of aorta ([facility]) Atherosclerosis of aorta Diabetic neuropathy, painful ([facility]) Type II or unspecified type diabetes mellitus with neurological manifestations, not stated as uncontrolled Type 2 diabetes mellitus with diabetic neuropathy, with long-term current use of insulin ([facility]) CAD in [place] ([facility]) Bilateral lower extremity edema Class 3 severe obesity with serious comorbidity and body mass index (BMI) of 45.0 to 49.9 in adult, unspecified obesity type ([facility]) Type 2 diabetes mellitus with diabetic neuropathy, with long-term current use of insulin ([facility])- Primary Type 2 diabetes mellitus with diabetic chronic kidney disease ([facility]) Chronic kidney disease, stage 3a (HCC) ([facility]) ELENA (obstructive sleep apnea) Obstructive sleep apnea (adult) (pediatric) PAD (peripheral artery disease) ([facility]) Unspecified peripheral vascular disease CAD in [place] ([facility]) Gastroesophageal reflux disease without esophagitis Esophageal reflux Primary hypertension ([facility]) Unspecified essential hypertension Type 2 diabetes mellitus with insulin therapy ([facility]) Class 3 severe obesity with serious comorbidity and body mass index (BMI) of 45.0 to 49.9 in adult, unspecified obesity type ([facility]) Type 2 diabetes mellitus with retinopathy of both eyes, with long-term current use of insulin, macular edema presence unspecified, unspecified retinopathy severity ([facility]) Factor V Leiden ([facility]) Primary hypercoagulable state Encounter for screening mammogram for malignant neoplasm of breast Type 2 diabetes mellitus with diabetic neuropathy, with long-term current use of insulin ([facility]) documented in this encounter [facility] HealthcareEvaluation note* Diagnosis Encounter for annual wellness visit (AWV) in Medicare patient- Primary Type 2 diabetes mellitus with diabetic neuropathy, with long-term current use of insulin ([facility]) CAD in [place] artery ([facility]) Tobacco user Tobacco use disorder Malignant neoplasm of kidney, unspecified laterality ([facility]) Type 2 diabetes mellitus with insulin therapy ([facility]) Routine general medical examination at health care facility Routine general medical examination at a health care facility Type 2 diabetes mellitus with insulin therapy ([facility])- Primary CAD in [place] artery ([facility]) Type 2 diabetes mellitus with diabetic neuropathy, with long-term current use of insulin ([facility]) Type 2 diabetes mellitus with diabetic neuropathy, unspecified ([facility]) Diabetic neuropathy, painful ([facility]) Type II or unspecified type diabetes mellitus with neurological manifestations, not stated as uncontrolled Anxiety and depression ([facility]) Anemia, unspecified type Gastroesophageal reflux disease without esophagitis Esophageal reflux Hypertriglyceridemia (CMS/HCC) Pure hyperglyceridemia Bilateral lower extremity edema Chronic bronchitis, unspecified chronic bronchitis type ([facility]/HCC) Class 3 severe obesity with serious comorbidity and body mass index (BMI) of 45.0 to 49.9 in adult, unspecified obesity type (CMS/HCC) Factor V Leiden ([facility]) Primary hypercoagulable state Tobacco user Tobacco use disorder ELENA (obstructive sleep apnea) Obstructive sleep apnea (adult) (pediatric) Environmental and seasonal allergies Type 2 diabetes mellitus with insulin therapy ([facility])- Primary Peripheral vascular disease, unspecified (CMS/HCC) Peripheral vascular disease, unspecified Atherosclerosis of aorta ([facility]) Atherosclerosis of aorta Diabetic neuropathy, painful ([facility]) Type II or unspecified type diabetes mellitus with neurological manifestations, not stated as uncontrolled Type 2 diabetes mellitus with diabetic neuropathy, with long-term current use of insulin ([facility]) CAD in [place] ([facility]) Bilateral lower extremity edema Class 3 severe obesity with serious comorbidity and body mass index (BMI) of 45.0 to 49.9 in adult, unspecified obesity type ([facility]) Type 2 diabetes mellitus with diabetic neuropathy, with long-term current use of insulin ([facility])- Primary Type 2 diabetes mellitus with diabetic chronic kidney disease ([facility]) Chronic kidney disease, stage 3a (HCC) ([facility]) ELENA (obstructive sleep apnea) Obstructive sleep apnea (adult) (pediatric) PAD (peripheral artery disease) ([facility]) Unspecified peripheral vascular disease CAD in [place] ([facility]) Gastroesophageal reflux disease without esophagitis Esophageal reflux Primary hypertension ([facility]) Unspecified essential hypertension Type 2 diabetes mellitus with insulin therapy ([facility]) Class 3 severe obesity with serious comorbidity and body mass index (BMI) of 45.0 to 49.9 in adult, unspecified obesity type ([facility]/HCC) Type 2 diabetes mellitus with retinopathy of both eyes, with long-term current use of insulin, macular edema presence unspecified, unspecified retinopathy severity ([facility]) Factor V Leiden ([facility]) Primary hypercoagulable state Encounter for screening mammogram for malignant neoplasm of breast Type 2 diabetes mellitus with insulin therapy ([facility] [facility] Primary documented in this encounter [facility]* Diagnosis Encounter for annual wellness visit (AWV) in Medicare patient- Primary Type 2 diabetes mellitus with diabetic neuropathy, with long-term current use of insulin ([facility]) CAD in [place] ([facility]) Tobacco user Tobacco use disorder Malignant neoplasm of kidney, unspecified laterality ([facility]) Type 2 diabetes mellitus with insulin therapy ([facility]) Routine general medical examination at health care facility Routine general medical examination at a [facility] care facility Type 2 diabetes mellitus with insulin therapy ([facility])- Primary CAD in [place] ([facility]) Type 2 diabetes mellitus with diabetic neuropathy, with long-term current use of insulin ([facility]) Type 2 diabetes mellitus with diabetic neuropathy, unspecified ([facility]) Diabetic neuropathy, painful ([facility]) Type II or unspecified type diabetes mellitus with neurological manifestations, not stated as uncontrolled Anxiety and depression ([facility]) Anemia, unspecified type Gastroesophageal reflux disease without esophagitis Esophageal reflux Hypertriglyceridemia ([facility]) Pure hyperglyceridemia Bilateral lower extremity edema Chronic bronchitis, unspecified chronic bronchitis type ([facility]) Class 3 severe obesity with serious comorbidity and body mass index (BMI) of 45.0 to 49.9 in adult, unspecified obesity type ([facility]) Factor V Leiden ([facility]) Primary hypercoagulable state Tobacco user Tobacco use disorder ELENA (obstructive sleep apnea) Obstructive sleep apnea (adult) (pediatric) Environmental and seasonal allergies Type 2 diabetes mellitus with insulin therapy ([facility])- Primary Peripheral vascular disease, unspecified ([facility]) Peripheral vascular disease, unspecified Atherosclerosis of aorta ([facility]) Atherosclerosis of aorta Diabetic neuropathy, painful ([facility]) Type II or unspecified type diabetes mellitus with neurological manifestations, not stated as uncontrolled Type 2 diabetes mellitus with diabetic neuropathy, with long-term current use of insulin ([facility]) CAD in [place] ([facility]) Bilateral lower extremity edema Class 3 severe obesity with serious comorbidity and body mass index (BMI) of 45.0 to 49.9 in adult, unspecified obesity type ([facility]) Type 2 diabetes mellitus with diabetic neuropathy, with long-term current use of insulin ([facility])- Primary Type 2 diabetes mellitus with diabetic chronic kidney disease ([facility]) Chronic kidney disease, stage 3a ([facility]) ([facility]) ELENA (obstructive sleep apnea) Obstructive sleep apnea (adult) (pediatric) PAD (peripheral artery disease) ([facility]) Unspecified peripheral vascular disease CAD in [place] ([facility]) Gastroesophageal reflux disease without esophagitis Esophageal reflux Primary hypertension ([facility]) Unspecified essential hypertension Type 2 diabetes mellitus with insulin therapy ([facility]) Class 3 severe obesity with serious comorbidity and body mass index (BMI) of 45.0 to 49.9 in adult, unspecified obesity type (CMS/HCC) Type 2 diabetes mellitus with retinopathy of both eyes, with long-term current use of insulin, macular edema presence unspecified, unspecified retinopathy severity ([facility]) Factor V Leiden ([facility]) Primary hypercoagulable state Encounter for screening mammogram for malignant neoplasm of breast Acute pain of right knee- Primary Complex tear of medial meniscus of right knee, unspecified whether old or current tear, initial encounter documented in this encounter [facility] HealthcareEvaluation [facility]* Diagnosis Encounter for annual wellness visit (AWV) in Medicare patient- Primary Type 2 diabetes mellitus with diabetic neuropathy, with long-term current use of insulin ([facility]) CAD in [place] ([facility]) Tobacco user Tobacco use disorder Malignant neoplasm of kidney, unspecified laterality ([facility]) Type 2 diabetes mellitus with insulin therapy ([facility]) Routine general medical examination at health care facility Routine general medical examination at a health care facility Type 2 diabetes mellitus with insulin therapy ([facility])- Primary CAD in [place] ([facility]) Type 2 diabetes mellitus with diabetic neuropathy, with long-term current use of insulin ([facility]) Type 2 diabetes mellitus with diabetic neuropathy, unspecified ([facility]) Diabetic neuropathy, painful ([facility]) Type II or unspecified type diabetes mellitus with neurological manifestations, not stated as uncontrolled Anxiety and depression ([facility]) Anemia, unspecified type Gastroesophageal reflux disease without esophagitis Esophageal reflux Hypertriglyceridemia ([facility]) Pure hyperglyceridemia Bilateral lower extremity edema Chronic bronchitis, unspecified chronic bronchitis type ([facility]) Class 3 severe obesity with serious comorbidity and body mass index (BMI) of 45.0 to 49.9 in adult, unspecified obesity type (CMS/HCC) Factor V Leiden ([facility]) Primary hypercoagulable state Tobacco user Tobacco use disorder ELENA (obstructive sleep apnea) Obstructive sleep apnea (adult) (pediatric) Environmental and seasonal allergies Type 2 diabetes mellitus with insulin therapy ([facility])- Primary Peripheral vascular disease, unspecified ([facility]) Peripheral vascular disease, unspecified Atherosclerosis of aorta ([facility]) Atherosclerosis of aorta Diabetic neuropathy, painful ([facility]) Type II or unspecified type diabetes mellitus with neurological manifestations, not stated as uncontrolled Type 2 diabetes mellitus with diabetic neuropathy, with long-term current use of insulin ([facility]) CAD in [place] ([facility]) Bilateral lower extremity edema Class 3 severe obesity with serious comorbidity and body mass index (BMI) of 45.0 to 49.9 in adult, unspecified obesity type ([facility]) Type 2 diabetes mellitus with diabetic neuropathy, with long-term current use of insulin ([facility])- Primary Type 2 diabetes mellitus with diabetic chronic kidney disease ([facility]) Chronic kidney disease, stage 3a (HCC) ([facility]) ELENA (obstructive sleep apnea) Obstructive sleep apnea (adult) (pediatric) PAD (peripheral artery disease) ([facility]) Unspecified peripheral vascular disease CAD in [place] ([facility] Gastroesophageal reflux disease without esophagitis Esophageal reflux Primary hypertension ([facility]) Unspecified essential hypertension Type 2 diabetes mellitus with insulin therapy ([facility]) Class 3 severe obesity with serious comorbidity and body mass index (BMI) of 45.0 to 49.9 in adult, unspecified obesity type ([facility]) Type 2 diabetes mellitus with retinopathy of both eyes, with long-term current use of insulin, macular edema presence unspecified, unspecified retinopathy severity ([facility]) Factor V Leiden ([facility]) Primary hypercoagulable state Encounter for screening mammogram for malignant neoplasm of breast Encounter for annual wellness visit (AWV) in Medicare patient- Primary Malignant neoplasm of unspecified kidney, except renal pelvis ([facility]) Type 2 diabetes mellitus with diabetic chronic kidney disease ([facility]) Chronic kidney disease, stage 3a (HCC) ([facility]) Morbid (severe) obesity due to excess calories ([facility]) Body mass index (BMI) 45.0-49.9, adult ([facility]) Type 2 diabetes mellitus with diabetic neuropathy, with long-term current use of insulin ([facility]) Unspecified chronic bronchitis ([facility]) Unspecified chronic bronchitis CAD in [place] ([facility]) PAD (peripheral artery disease) ([facility] Unspecified peripheral vascular disease Primary hypertension ([facility]) Unspecified essential hypertension Bilateral lower extremity edema Age-related osteoporosis without current pathological fracture ([facility]) Class 3 severe obesity due to excess calories with serious comorbidity and body mass index (BMI) of 45.0 to 49.9 in adult ([facility]) Type 2 diabetes mellitus with retinopathy of both eyes, with long-term current use of insulin, macular edema presence unspecified, unspecified retinopathy severity ([facility]) Type 2 diabetes mellitus with insulin therapy ([facility]) Anxiety and depression ([facility]) Encounter for screening mammogram for malignant neoplasm of breast Tobacco user Tobacco use disorder Mixed hyperlipidemia ([facility]) Mixed hyperlipidemia Environmental and seasonal allergies Gastroesophageal reflux disease without esophagitis Esophageal reflux Factor V Leiden ([facility]) Primary hypercoagulable state documented in this encounter [facility] HealthcareEvaluation note* Diagnosis Encounter for other preprocedural examination [facility] Diagnosis Encounter for annual wellness visit (AWV) in Medicare patient- Primary Type 2 diabetes mellitus with diabetic neuropathy, with long-term current use of insulin ([facility]) CAD in [place] ([facility]) Tobacco user Tobacco use disorder Malignant neoplasm of kidney, unspecified laterality ([facility]) Type 2 diabetes mellitus with insulin therapy ([facility]) Routine general medical examination at health care facility Routine general medical examination at a health care facility Type 2 diabetes mellitus with insulin therapy ([facility])- Primary CAD in [place] ([facility]) Type 2 diabetes mellitus with diabetic neuropathy, with long-term current use of insulin ([facility]) Type 2 diabetes mellitus with diabetic neuropathy, unspecified ([facility]) Diabetic neuropathy, painful ([facility]) Type II or unspecified type diabetes mellitus with neurological manifestations, not stated as uncontrolled Anxiety and depression ([facility]) Anemia, unspecified type Gastroesophageal reflux disease without esophagitis Esophageal reflux Hypertriglyceridemia ([facility]) Pure hyperglyceridemia Bilateral lower extremity edema Chronic bronchitis, unspecified chronic bronchitis type ([facility]) Class 3 severe obesity with serious comorbidity and body mass index (BMI) of 45.0 to 49.9 in adult, unspecified obesity type ([facility]) Factor V Leiden ([facility]) Primary hypercoagulable state Tobacco user Tobacco use disorder ELENA (obstructive sleep apnea) Obstructive sleep apnea (adult) (pediatric) Environmental and seasonal allergies Type 2 diabetes mellitus with insulin therapy ([facility])- Primary Peripheral vascular disease, unspecified ([facility]) Peripheral vascular disease, unspecified Atherosclerosis of aorta ([facility]) Atherosclerosis of aorta Diabetic neuropathy, painful ([facility]) Type II or unspecified type diabetes mellitus with neurological manifestations, not stated as uncontrolled Type 2 diabetes mellitus with diabetic neuropathy, with long-term current use of insulin ([facility]) CAD in [place] ([facility]) Bilateral lower extremity edema Class 3 severe obesity with serious comorbidity and body mass index (BMI) of 45.0 to 49.9 in adult, unspecified obesity type ([facility]) Type 2 diabetes mellitus with diabetic neuropathy, with long-term current use of insulin ([facility])- Primary Type 2 diabetes mellitus with diabetic chronic kidney disease ([facility]) Chronic kidney disease, stage 3a (HCC) ([facility]) ELENA (obstructive sleep apnea) Obstructive sleep apnea (adult) (pediatric) PAD (peripheral artery disease) ([facility]) Unspecified peripheral vascular disease CAD in [place] ([facility] Gastroesophageal reflux disease without esophagitis Esophageal reflux Primary hypertension ([facility]) Unspecified essential hypertension Type 2 diabetes mellitus with insulin therapy ([facility]) Class 3 severe obesity with serious comorbidity and body mass index (BMI) of 45.0 to 49.9 in adult, unspecified obesity type ([facility]) Type 2 diabetes mellitus with retinopathy of both eyes, with long-term current use of insulin, macular edema presence unspecified, unspecified retinopathy severity ([facility]) Factor V Leiden ([facility]) Primary hypercoagulable state Encounter for screening mammogram for malignant neoplasm of breast Encounter for annual wellness visit (AWV) in Medicare patient- Primary Malignant neoplasm of unspecified kidney, except renal pelvis ([facility]) Type 2 diabetes mellitus with diabetic chronic kidney disease ([facility]) Chronic kidney disease, stage 3a (HCC) ([facility]) Morbid (severe) obesity due to excess calories ([facility]) Body mass index (BMI) 45.0-49.9, adult ([facility]) Type 2 diabetes mellitus with diabetic neuropathy, with long-term current use of insulin ([facility]) Unspecified chronic bronchitis ([facility]) Unspecified chronic bronchitis CAD in [place] ([facility]) PAD (peripheral artery disease) ([facility]) Unspecified peripheral vascular disease Primary hypertension ([facility]) Unspecified essential hypertension Bilateral lower extremity edema Age-related osteoporosis without current pathological fracture ([facility]) Class 3 severe obesity due to excess calories with serious comorbidity and body mass index (BMI) of 45.0 to 49.9 in adult ([facility]) Type 2 diabetes mellitus with retinopathy of both eyes, with long-term current use of insulin, macular edema presence unspecified, unspecified retinopathy severity ([facility]) Type 2 diabetes mellitus with insulin therapy ([facility] Anxiety and depression ([facility]) Encounter for screening mammogram for malignant neoplasm of breast Tobacco user Tobacco use disorder Mixed hyperlipidemia ([facility]) Mixed hyperlipidemia Environmental and seasonal allergies Gastroesophageal reflux disease without esophagitis Esophageal reflux Factor V Leiden ([facility]) Primary hypercoagulable state Pre-operative clearance Unspecified pre-operative examination Preop examination- Primary Unspecified pre-operative examination Complex tear of medial meniscus of right knee, unspecified whether old or current tear, subsequent encounter documented in this encounter [facility]* Diagnosis Encounter for annual wellness visit (AWV) in Medicare patient- Primary Type 2 diabetes mellitus with diabetic neuropathy, with long-term current use of insulin ([facility]) CAD in [place] ([facility]) Tobacco user Tobacco use disorder Malignant neoplasm of kidney, unspecified laterality ([facility]) Type 2 diabetes mellitus with insulin therapy ([facility]) Routine general medical examination at health care facility Routine general medical examination at a health care facility Type 2 diabetes mellitus with insulin therapy ([facility])- Primary CAD in [place] ([facility]) Type 2 diabetes mellitus with diabetic neuropathy, with long-term current use of insulin ([facility]) Type 2 diabetes mellitus with diabetic neuropathy, unspecified ([facility]) Diabetic neuropathy, painful ([facility]) Type II or unspecified type diabetes mellitus with neurological manifestations, not stated as uncontrolled Anxiety and depression ([facility]) Anemia, unspecified type Gastroesophageal reflux disease without esophagitis Esophageal reflux Hypertriglyceridemia ([facility]) Pure hyperglyceridemia Bilateral lower extremity edema Chronic bronchitis, unspecified chronic bronchitis type ([facility]) Class 3 severe obesity with serious comorbidity and body mass index (BMI) of 45.0 to 49.9 in adult, unspecified obesity type ([facility]) Factor V Leiden ([facility]) Primary hypercoagulable state Tobacco user Tobacco use disorder ELENA (obstructive sleep apnea) Obstructive sleep apnea (adult) (pediatric) Environmental and seasonal allergies Type 2 diabetes mellitus with insulin therapy ([facility])- Primary Peripheral vascular disease, unspecified ([facility]) Peripheral vascular disease, unspecified Atherosclerosis of aorta ([facility]) Atherosclerosis of aorta Diabetic neuropathy, painful ([facility]) Type II or unspecified type diabetes mellitus with neurological manifestations, not stated as uncontrolled Type 2 diabetes mellitus with diabetic neuropathy, with long-term current use of insulin ([facility]) CAD in [place] ([facility]) Bilateral lower extremity edema Class 3 severe obesity with serious comorbidity and body mass index (BMI) of 45.0 to 49.9 in adult, unspecified obesity type ([facility]) Type 2 diabetes mellitus with diabetic neuropathy, with long-term current use of insulin ([facility])- Primary Type 2 diabetes mellitus with diabetic chronic kidney disease ([facility]) Chronic kidney disease, stage 3a (HCC) ([facility]) ELENA (obstructive sleep apnea) Obstructive sleep apnea (adult) (pediatric) PAD (peripheral artery disease) ([facility]) Unspecified peripheral vascular disease CAD in [place] ([facility] Gastroesophageal reflux disease without esophagitis Esophageal reflux Primary hypertension ([facility]) Unspecified essential hypertension Type 2 diabetes mellitus with insulin therapy ([facility]) Class 3 severe obesity with serious comorbidity and body mass index (BMI) of 45.0 to 49.9 in adult, unspecified obesity type ([facility]) Type 2 diabetes mellitus with retinopathy of both eyes, with long-term current use of insulin, macular edema presence unspecified, unspecified retinopathy severity ([facility]) Factor V Leiden ([facility] Primary hypercoagulable state Encounter for screening mammogram for malignant neoplasm of breast Encounter for annual wellness visit (AWV) in Medicare patient- Primary Malignant neoplasm of unspecified kidney, except renal pelvis ([facility]) Type 2 diabetes mellitus with diabetic chronic kidney disease ([facility]) Chronic kidney disease, stage 3a (HCC) ([facility]) Morbid (severe) obesity due to excess calories ([facility]) Body mass index (BMI) 45.0-49.9, adult ([facility]) Type 2 diabetes mellitus with diabetic neuropathy, with long-term current use of insulin ([facility]) Unspecified chronic bronchitis ([facility]) Unspecified chronic bronchitis CAD in [place] artery ([facility]) PAD (peripheral artery disease) ([facility]) Unspecified peripheral vascular disease Primary hypertension ([facility]) Unspecified essential hypertension Bilateral lower extremity edema Age-related osteoporosis without current pathological fracture ([facility]) Class 3 severe obesity due to excess calories with serious comorbidity and body mass index (BMI) of 45.0 to 49.9 in adult ([facility]) Type 2 diabetes mellitus with retinopathy of both eyes, with long-term current use of insulin, macular edema presence unspecified, unspecified retinopathy severity ([facility]) Type 2 diabetes mellitus with insulin therapy ([facility]) Anxiety and depression ([facility]) Encounter for screening mammogram for malignant neoplasm of breast Tobacco user Tobacco use disorder Mixed hyperlipidemia ([facility]) Mixed hyperlipidemia Environmental and seasonal allergies Gastroesophageal reflux disease without esophagitis Esophageal reflux Factor V Leiden ([facility]) Primary hypercoagulable state Pre-operative clearance Unspecified pre-operative examination Hyperkalemia- Primary Hyperpotassemia Bilateral lower extremity edema documented in this encounter [facility] HealthcareEvaluation note* Diagnosis Preop examination- Primary Unspecified pre-operative examination Hypertension, unspecified type Factor 5 Leiden mutation, heterozygous ([facility]) Asthma, unspecified asthma severity, unspecified whether complicated, unspecified whether persistent Coronary artery disease involving [place] coronary artery of [place] heart, unspecified whether angina present Stage 3a chronic kidney disease ([facility]) Preop examination Unspecified pre-operative examination Hypertension, unspecified type Factor 5 Leiden mutation, heterozygous ([facility]) Asthma, unspecified asthma severity, unspecified whether complicated, unspecified whether persistent Coronary artery disease involving [place] coronary artery of [place] heart, unspecified whether angina present Stage 3a chronic kidney disease ([facility]) [facility] N[facility] No data available for this section [facility] InstructionsNot on filedocumented in this encounter [facility] No data available for this section [facility] reason for referral (narrative)* Diagnostic Procedure Only (Routine) - Pending Review Specialty Diagnoses / Procedures Referred By April valdez Referred To Contact XR IMAGING Diagnoses Closed fracture of left ankle, initial encounter Procedures XR ANKLE GENERAL 3V AP/LAT/OBL LEFT RADEX ANKLE COMPLETE MINIMUM 3 VIEWS Lilly Tony MD [address] [address] Xr Imaging Referral ID Status Reason Start Date Expiration Date Visits Requested Visits Authorized [id number] Pending Review Auto-Generat ed Referral 10/12/2021 11/11/2022 1 1 [facility] for referral (narrative) Referred by: VENKAT SAWYER, Jluis Jacinto [facility] reason for referral (narrative)* Consultation (Routine) - Pending Review Specialty Diagnoses / Procedures Referred By April valdez Referred To Contact Neurology Diagnoses Dizziness and giddiness Procedures [place] OFFICE/OUTPATIENT NEW HIGH MDM 60 MINUTES Jenny Borrego NP [address] [place] [address] Yas Trujillo NP [address] [place] [address] Referral ID Status Reason Start Date Expiration Date Visits Requested Visits Authorized [id number] Pending Review Specialty Services Required 11/24/2023 05/22/2024 1 1 [facility] Healthcare Summary Purpose Family History No Family History Records Found Relationship Condition Age at Onset Recorded Date/T moi Not Specified Myocardial infarction Unknown Diabetes mellitus Unknown Hypertension Unknown sister Malignant neoplasm of lung Unknown father Diabetes mellitus Unknown Transient ischemic attack Unknown Advance Directives No Advanced Directives Records FoundDocuments on File Type Date 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 Advance Directive(s) 09/12/2021 2:13 [...] & W/O CONTRAST Lex Pickens MD [address] [place] [address] [place] [address] Referral ID Status Reason Start Date Expiration Date Visits Requested Visits Authorized [id number] Pending Review Auto-Generat ed Referral 10/16/2022 11/15/2023 1 1 Specialty Diagnoses / Procedures Referred By April valdez Referred To Contact CT IMAGING Diagnoses Other specified disorders of kidney and ureter Procedures CT KIDNEY WO/W IVCON CT ABDOMEN W & W/O CONTRAST Judson Quiroga MD [address] [place] [address] Ct Imaging Referral ID Status Reason Start Date Expiration Date V isits Requested Visits Authorized [id number] Closed Auto-Generate d Referral 03/16/2022 04/15/2023 1 1 Chief Complaint and Reason for Visit Chief Complaint Anemia, Lower Hemogl obin Chief Complaint Anemia E11.40 Z79.4 Reason for Visit Iron deficiency anem ia Additional Source Comments INFORMATION SOURCE (unrecogn ized section and content) DATE CREATED AUTHOR 12/25/2020 [facility] DATE CREATED AUTHOR AUTHOR'S ORGANIZ ATION 07/25/2021 [facility] DATE CREATED AUTHOR AUTHOR'S ORGANIZ ATION 11/22/2021 [facility] DATE CREATED AUTHOR AUTHOR'S ORGANIZ ATION 03/05/2022 [facility] DATE CREATED AUTHOR AUTHOR'S ORGANIZ ATION 06/25/2022 [facility] DATE CREATED AUTHOR AUTHOR'S ORGANIZ ATION 06/16/2023 [facility] DATE CREATED AUTHOR AUTHOR'S ORGANIZ ATION 08/08/2023 [facility] DATE CREATED AUTHOR AUTHOR'S ORGANIZ ATION 04/29/2024 [facility] DATE CREATED AUTHOR AUTHOR'S ORGANIZ ATION 05/02/2024 [facility] DATE CREATED AUTHOR AUTHOR'S ORGANIZ ATION 05/06/2024 [facility] Source Comments (unrecognize d section and content) In the event this informatio n is protected by the Federal Confidentiality of Alcohol and Drug Abuse Patient Records regulations: The Federal rules restrict any use of the information to criminally investigate or prosecute any alcohol or drug abuse patient.[facility] the event this information is protected by the Federal Confidentiality of Alcohol and Drug Abuse Patient Records regulations: The Federal rules restrict any use of the information to criminally investigate or prosecute any alcohol or drug abuse patient.[facility] the event this information is protected by the Federal Confidentiality of Alcohol and Drug Abuse Patient Records regulations: The Federal rules restrict any use of the information to criminally investigate or prosecute any alcohol or drug abuse patient.[facility] the event this information is protected by the Federal Confidentiality of Alcohol and Drug Abuse Patient Records regulations: The Federal rules restrict any use of the information to criminally investigate or prosecute any alcohol or drug abuse patient.[facility] the event this information is protected by the Federal Confidentiality of Alcohol and Drug Abuse Patient Records regulations: The Federal rules restrict any use of the information to criminally investigate or prosecute any alcohol or drug abuse patient.[facility] Hospital[facility] the event this information is protected by the Federal Confidentiality of Alcohol and Drug Abuse Patient Records regulations: The Federal rules restrict any use of the information to criminally investigate or prosecute any alcohol or drug abuse patient.[facility] Hospital[facility] the event this information is protected by the Federal Confidentiality of Alcohol and Drug Abuse Patient Records regulations: The Federal rules restrict any use of the information to criminally investigate or prosecute any alcohol or drug abuse patient.[facility] Hospital[facility] the event this information is protected by the Federal Confidentiality of Alcohol and Drug Abuse Patient Records regulations: The Federal rules restrict any use of the information to criminally investigate or prosecute any alcohol or drug abuse patient.[facility] Hospital[facility] the event this information is protected by the Federal Confidentiality of Alcohol and Drug Abuse Patient Records regulations: The Federal rules restrict any use of the information to criminally investigate or prosecute any alcohol or drug abuse patient.[facility] Hospital[facility] the event this information is protected by the Federal Confidentiality of Alcohol and Drug Abuse Patient Records regulations: The Federal rules restrict any use of the information to criminally investigate or prosecute any alcohol or drug abuse patient.[facility] Hospital[facility] the event this information is protected by the Federal Confidentiality of Alcohol and Drug Abuse Patient Records regulations: The Federal rules restrict any use of the information to criminally investigate or prosecute any alcohol or drug abuse patient.[facility] Hospital[facility] the event this information is protected by the Federal Confidentiality of Alcohol and Drug Abuse Patient Records regulations: The Federal rules restrict any use of the information to criminally investigate or prosecute any alcohol or drug abuse patient.[facility] Hospital[facility] the event this information is protected by the Federal Confidentiality of Alcohol and Drug Abuse Patient Records regulations: The Federal rules restrict any use of the information to criminally investigate or prosecute any alcohol or drug abuse patient.[facility] Hospital[facility] the event this information is protected by the Federal Confidentiality of Alcohol and Drug Abuse Patient Records regulations: The Federal rules restrict any use of the information to criminally investigate or prosecute any alcohol or drug abuse patient.[facility] Reason for Visit (unrecogniz ed section [...] W & W/O CONTRAST Lex Pickens MD [address] [place] [address] [facility] [place] [address] Referral ID Status Reason Start Date Expiration Date V isits Requested Visits Authorized [id number] Closed Auto-Generate d Referral 10/16/2022 11/15/2023 1 [address] Specialty Diagnoses / Procedures Referred By Contac t Referred To Contact CT IMAGING Diagnoses Other specified disorders of kidney and ureter Procedures CT KIDNEY WO/W IVCON CT ABDOMEN W & W/O CONTRAST Lex Pickens MD [address] [place] [address] [facility] [place] [address] Referral ID Status Reason Start Date Expiration Date V isits Requested Visits Authorized [id number] Closed Auto-Generate d Referral 10/07/2022 05/09/2023 1 1 Specialty Diagnoses / Procedures Referred By Contac t Referred To Contact CT IMAGING Diagnoses Other specified disorders of kidney and ureter Procedures CT KIDNEY WO/W IVCON CT ABDOMEN W & W/O CONTRAST Judson Quiroga MD [address] [place] [id number] [facility] [place] [address] Referral ID Status Reason Start Date Expiration Date V isits Requested Visits Authorized [id number] Closed Auto-Generate d Referral 03/16/2022 04/15/2023 1 1 Reason Comments Radio Gen RMP Reason Comments Pain Reason Comments Med Refill Reason Comments Dizziness Specialty Diagnoses / Procedures Referred By Contac t Referred To Contact Neurology Diagnoses Dizziness and giddiness Procedures [place] OFFICE/OUTPATIENT NEW HIGH MDM 60 MINUTES Jenny Borrego, ZELALEM [address] [place] [address] Phone: tel: fax: Michoacano Joseph MD [address] [place] [address] Phone: tel: fax: Referral ID Status Reason Start Date Expiration Date V isits Requested Visits Authorized [id number] Closed Consult and Treat 11/24/2023 05/22/2024 1 1 Reason Comments Follow-up Reason Comments Pain Reason Onset Date Comments PT Initial Eval 02/27/2024 fu 03/01/2024 Tried patient, t ried , and was only able to lm w/ daughter. 3rd attempt No responce 03/02/2024 Reason Comments Medicare Annual Wellness Visit Initial Reason Comments Pre-op Exam Care Teams (unrecognized sec tion and content) Director Of Food And Nutrition Relationship Specialty Start Date End Date Dawit Ba Sr. PCP - General Family Practice 10/24/14 Director Of Food And Nutrition Relationship Specialty Start Date End Date Dawit Ba Sr. PCP - General Family Practice 10/24/14 Director Of Food And Nutrition Relationship Specialty Start Date End Date Dawit Ba Sr. PCP - General Family Practice 10/24/14 Director Of Food And Nutrition Relationship Specialty Start Date End Date Dawit Ba Sr. PCP - General Family Medicine 10/24/14 Director Of Food And Nutrition Relationship Specialty Start Date End Date Dawit Ba Sr. PCP - General Family Medicine 10/24/14 Director Of Food And Nutrition Relationship Specialty Start Date End Date Dawit Ba Sr. PCP - General Family Medicine 10/24/14 Team Status: Active Member Role Status Dates Dawit Ba , DO Primary Care Provider Active Team Status: Inactive Member Role Status Dates Dawit Ba , DO Primary Care Provider Active Bebo Sims DO Attending Provider Active Director Of Food And Nutrition Relationship Specialty Start Date End Date Dawit Ba Sr. PCP - General Family Medicine 10/24/14 Director Of Food And Nutrition Relationship Specialty Start Date End Date Dawit Ba Sr. PCP - General Family Medicine 10/24/14 Director Of Food And Nutrition Relationship Specialty Start Date End Date Ludin Blanchard MD PCP - General Family Medicine 10/06/22 Jenny Borrego NP [facility] [place] [address] Nurse Practitioner Family Medicine 12/27/22 Director Of Food And Nutrition Relationship Specialty Start Date End Date Ludin Blanchard MD PCP - General Family Medicine 10/06/22 Jenny Borrego NP [address] [place] [address] Nurse Practitioner [facility] Medicine 12/27/22 Director Of Food And Nutrition Relationship Specialty Start Date End Date Ludin Blanchard MD PCP - General Family Medicine 10/06/22 Jenny Borrego NP [address] [place] [address] Nurse Practitioner [facility] 12/27/22 Team Status: Active Member Role Status [...] April 13, 2023 End: April 13, 2023 Director Of Food And Nutrition Relationship Specialty Start Date End Date Dawit Ba Sr., DO PCP - General Family Medicine 10/24/14 Director Of Food And Nutrition Relationship Specialty Start Date End Date Dawit Ba Sr., PCP - General Family Medicine 10/24/14 Director Of Food And Nutrition Relationship Specialty Start Date End Date Dawit Ba Sr., DO PCP - General Family Medicine 10/24/14 Director Of Food And Nutrition Relationship Specialty Start Date End Date HouseDawit Sr., DO PCP - General Family Medicine 10/24/14 Director Of Food And Nutrition Relationship Specialty Start Date End Date Deondre Dawit Hong Sr., DO PCP - General Family Medicine 10/24/14 Director Of Food And Nutrition Relationship Specialty Start Date End Date Dawit Ba Sr., DO PCP - General Family Medicine 10/24/14 Director Of Food And Nutrition Relationship Specialty Start Date End Date Ludin Blanchard MD [address] [place] [address] PCP - General Family Medicine 04/28/23 Jenny Borrego NP [address] [place] [address] Nurse Practitioner Family Medicine 12/27/22 Director Of Food And Nutrition Relationship Specialty Start Date End Date Ludin Blanchard MD [address] [place] [address] PCP - General Family Medicine 04/28/23 Jenny Borrego NP [address] [place] [address] Nurse Practitioner Family Medicine 12/27/22 Director Of Food And Nutrition Relationship Specialty Start Date End Date Ludin Blanchard MD [address] [place] [address] PCP - General Family Medicine 04/28/23 Jenny Borrego NP [address] [place] [address] Nurse Practitioner Family Medicine 12/27/22 Director Of Food And Nutrition Relationship Specialty Start Date End Date Ludin Blanchard MD [address] [place] [address] PCP - General Family Medicine 04/28/23 Jenny Borrego NP [address] [place] [address] Nurse Practitioner Family Medicine 12/27/22 Director Of Food And Nutrition Relationship Specialty Start Date End Date Ludin Blanchard MD [address] [place] [address] PCP - General Family Medicine 04/28/23 Jenny Borrego NP [address] [place] [address] Nurse Practitioner Family Medicine 12/27/22 Director Of Food And Nutrition Relationship Specialty Start Date End Date Ludin Blanchard MD [address] [place] [address] PCP - General Family Medicine 04/28/23 Jenny Borrego NP [address] [place] [address] Nurse Practitioner Family Medicine 12/27/22 Director Of Food And Nutrition Relationship Specialty Start Date End Date Ludin Blanchard MD [address] [place] [address] PCP - General Family Medicine 04/28/23 Jenny Borrego NP [address] [place] [address] Nurse Practitioner Family Medicine 12/27/22 Director Of Food And Nutrition Relationship Specialty Start Date End Date Ludin Blanchard MD [address] [place] [address] PCP - General Family Medicine 04/28/23 Jenny Borrego NP [address] [place] [address] Nurse Practitioner Family Medicine 12/27/22 Director Of Food And Nutrition Relationship Specialty Start Date End Date Ludin Blanchard MD [address] [place] [address] PCP - General Family Medicine 04/28/23 Jenny Borrego NP [address] [place] [address] Nurse Practitioner Family Medicine 12/27/22 Director Of Food And Nutrition Relationship Specialty Start Date End Date Ludin Blanchard MD [address] [place] [address] PCP - General Family Medicine 04/28/23 Jenny Borrego NP [address] [place] [address] Nurse Practitioner Family Medicine 12/27/22 Director Of Food And Nutrition Relationship Specialty Start Date End Date Ludin Blanchard MD [address] [place] [address] PCP - General Family Medicine 04/28/23 Jenny Borrego NP [address] [place] [address] Nurse Practitioner Family Medicine 12/27/22 Director Of Food And Nutrition Relationship Specialty Start Date End Date Ludin Blanchard MD [address] [place] [address] PCP - General Family Medicine 04/28/23 Jenny Borrego NP [address] [place] [address] Nurse Practitioner Family Medicine 12/27/22 Director Of Food And Nutrition Relationship Specialty Start Date End Date Ludin Blanchard MD [address] [place] [address] PCP - General Family Medicine 04/28/23 Jenny Borrego NP [address] [place] [address] Nurse Practitioner Family Medicine 12/27/22 Director Of Food And Nutrition Relationship Specialty Start Date End Date Ludin Blanchard MD [address] [place] [address] PCP - General Family Medicine 04/28/23 Jenny Borrego NP [address] [place] [address] Nurse Practitioner Family Medicine 12/27/22 Director Of Food And Nutrition Relationship Specialty Start Date End Date Ludin Blanchard MD [address] [place] [address] PCP - General Family Medicine 04/28/23 Jenny Borrego NP [address] [place] [address] Nurse Practitioner Family Medicine 12/27/22 Director Of Food And Nutrition Relationship Specialty Start Date End Date Ludin Blanchard MD [address] [place] [address] PCP - General Family Medicine 04/28/23 Jenny Borrego NP [address] [place] [address] Nurse Practitioner Family Medicine 12/27/22 Director Of Food And Nutrition Relationship Specialty Start Date End Date Ludin Blanchard MD [address] [place] [address] PCP - General Family Medicine 04/28/23 Jenny Borrego NP [address] [place] [address] Nurse Practitioner Family Medicine 12/27/22 Director Of Food And Nutrition Relationship Specialty Start Date End Date Ludin Blanchard MD [address] [place] [address] PCP - General Family Medicine 04/28/23 Jenny Borrego NP [address] [place] [address] Nurse Practitioner Family Medicine 12/27/22 Director Of Food And Nutrition Relationship Specialty Start Date End Date Ludin Blanchard MD [address] [place] [address] PCP - General Family Medicine 04/28/23 Jenny Borrego NP [address] [place] [address] Nurse Practitioner Family Medicine 12/27/22 Director Of Food And Nutrition Relationship Specialty Start Date End Date Ludin Blanchard MD [address] [place] [address] PCP - General Family Medicine 04/28/23 Jenny Borrego NP [address] [place] [address] Nurse Practitioner Family Medicine 12/27/22 Director Of Food And Nutrition Relationship Specialty Start Date End Date Ludin Blanchard MD [address] [place] [address] PCP - General Family Medicine 04/28/23 Jenny Borrego NP [address] [place] [address] Nurse Practitioner Family Medicine 12/27/22 Director Of Food And Nutrition Relationship Specialty Start Date End Date Ludin Blanchard MD [address] [place] [address] PCP - General Family Medicine 04/28/23 Jenny Borrego NP [address] [place] [address] Nurse Practitioner Family Medicine 12/27/22 Director Of Food And Nutrition Relationship Specialty Start Date End Date Ludin Blanchard MD [address] [place] [address] PCP - General Family Medicine 04/28/23 Jenny Borrego NP [address] [place] [address] Nurse Practitioner Family Medicine 12/27/22 Director Of Food And Nutrition Relationship Specialty Start Date End Date Ludin Blanchard MD [address] [place] [address] PCP - General Family Medicine 04/28/23 Jenny Borrego NP [address] [place] [address] Nurse Practitioner Family Medicine 12/27/22 Director Of Food And Nutrition Relationship Specialty Start Date End Date Ludin Blanchard MD [address] [place] [address] PCP - General Family Medicine 04/28/23 Jenny Borrego NP [address] [place] [address] Nurse Practitioner Family Medicine 12/27/22 Director Of Food And Nutrition Relationship Specialty Start Date End Date Ludin Blanchard MD [address] [place] [address] PCP - General Family Medicine 04/28/23 Jenny Borrego NP [address] [place] [address] Nurse Practitioner Family Medicine 12/27/22 Director Of Food And Nutrition Relationship Specialty Start Date End Date Ludin Blanchard MD [address] [place] [address] PCP - General Family Medicine 04/28/23 Jenny Borrego NP [address] [place] [address] Nurse Practitioner Family Medicine 12/27/22 Director Of Food And Nutrition Relationship Specialty Start Date End Date Ludin Blanchard MD [address] [place] [address] PCP - General Family Medicine 04/28/23 Jenny Borrego NP [address] [place] [address] Nurse Practitioner Family Medicine 12/27/22 Director Of Food And Nutrition Relationship Specialty Start Date End Date Ludin Blanchard MD [address] [place] [phone] PCP - General Family Medicine 04/28/23 Jenny Borrego NP [address] [place] [phone] Nurse Practitioner Family Medicine 12/27/22 Director Of Food And Nutrition Relationship Specialty Start Date End Date Ludin Blanchard MD [address] [place] [phone] PCP - General Family Medicine 04/28/23 Jenny Borrego NP [address] [place] [phone] Nurse Practitioner Family Medicine 12/27/22 Director Of Food And Nutrition Relationship Specialty Start Date End Date Ludin Blanchard MD [address] [place] [phone] PCP - General Family Medicine 04/28/23 Jenny Borrego NP [address] [place] [phone] Nurse Practitioner Family Medicine 12/27/22 Director Of Food And Nutrition Relationship Specialty Start Date End Date Dawit Ba DO PCP - General 08/11/17 Director Of Food And Nutrition Relationship Specialty Start Date End Date Ludin Blanchard MD [address] [place] [phone] PCP - General Family Medicine 04/28/23 Jenny Borrego NP [address] [place] [phone] Nurse Practitioner Family Medicine 12/27/22 Director Of Food And Nutrition Relationship Specialty Start Date End Date Ludin Blanchard MD [address] [place] [phone] PCP - General Family Medicine 04/28/23 Jenny Borrego NP [address] [place] [phone] Nurse Practitioner Family Medicine 12/27/22 Director Of Food And Nutrition Relationship Specialty Start Date End Date Ludin Blanchard MD [address] [place] [phone] PCP - General Family Medicine 04/28/23 Jenny Borrego NP [address] [place] [phone] Nurse Practitioner [facility] 12/27/22 Director Of Food And Nutrition Relationship Specialty Start Date End Date Jenny Borrego APRN-CARLO [address] [place] [phone] PCP - General Nurse Practitioner 04/30/24 FOR RECORDS PERTAINING TO PATIENTS WHO ARE [...] BE BASED ON THE PRIMARY CLINICAL RECORDS. [facility] [employer] [facility]. provides no warranty or guarantee of the accuracy or completeness of information in this document.
== END 2024-05-07 11:23 | disposition home or self-care (01) ==
LOC: LAB 11:24
PROVIDERS: PCP Nurse Practitioner; Visit Provider Nurse Practitioner
DX: E87.5 Hyperkalemia (principal)
CPT/HCPCS: 36415; 84132

== ENCOUNTER 2024-06-08 08:51 | Outpatient (RCR) | payer MEDICARE, SELFPAY | END 2024-08-07 09:42 | disposition home or self-care (01) | LOC: PT 08:51 | PROVIDERS: PCP Nurse Practitioner; Visit Provider Orthopaedic Surgery | DX: M25.561 Pain in right knee (principal) | CPT/HCPCS: 97110; 97112; 97113 ==

== ENCOUNTER 2024-08-27 12:50 | Outpatient (OUT) | payer MEDICARE, SELFPAY ==
--- OUTSIDE RECORDS SUMMARY | 2024-08-21 09:48 | XMS_ITS ---
Author Name Auto Generated Organization OHIP Support Name Relationship Address Phone DEBBIE MENESES Next of Kin Unknown [phone] EVERET[place] MENESES Next of Kin Unknown [phone] DEBBIE MENESES Next of Kin Unknown [phone] EVERET[place] MENESES Next of Kin Unknown [phone] DEBBIE MENESES Next of Kin Unknown [phone] EVER[place] MENESES Next of Kin Unknown [phone] DEBBIE MENESES Next of Kin Unknown [phone] EVERET[place] MENESES Next of Kin Unknown [phone] DEBBIE MENESES Next of Kin Unknown [phone] EVERET[place] MENESES Next of Kin Unknown [phone] DEBBIE MENESES Next of Kin [address] [place] [address] Unavailable DEBBIE MENESES Next of Kin [address] [place] [address] Unavailable DEBBIE MENESES Next of Kin [address] [place] [address] Unavailable DEBBIE MENESES Next of Kin [address] [place] [address] Unavailable DEBBIE MENESES Next of Kin [address] [place] [address] Unavailable DEBBIE MENESES Next of Kin [address] [place] [address] Unavailable DEBBIE MENESES Next of Kin [address] [place] [address] Unavailable DEBBIE MENESES Next of Kin Unknown [phone] [place]ER[place] MENESES Next of Kin Unknown [phone] YECKLEY, GILBERT Next of Kin Unknown +[phone] YECKLEY, GILBERT Next of Kin Unknown +[phone] YECKLEY, EVERETT Next of Kin Unknown [phone] YECKLEY, GILBERT Next of Kin Unknown +[phone] YECKLEY, EVERETT Next of Kin Unknown [phone] YECKLEY, GILBERT Next of Kin Unknown +[phone] YECKLEY, EVERETT Next of Kin Unknown [phone] YECKLEY, GILBERT Next of Kin Unknown +[phone] YECKLEY, EVERETT Next of Kin Unknown [phone] YECKLEY, GILBERT Next of Kin Unknown +[phone] YECKLEY, EVERETT Next of Kin Unknown [phone] YECKLEY, GILBERT Next of Kin Unknown +[phone] YECKLEY, EVERETT Next of Kin Unknown [phone] YECKLEY, GILBERT Next of Kin Unknown +[phone] YECKLEY, EVERETT Next of Kin Unknown [phone] YECLAULEY, GILBERT Next of Kin Unknown +[phone] YECKLEY, EVERETT Next of Kin Unknown [phone] YECKLEY, GILBERT Next of Kin Unknown +[phone] YECKLEY, EVERETT Next of Kin Unknown [phone] YECKLEY, GILBERT Next of Kin Unknown +[phone] YECKLEY, EVERETT Next of Kin Unknown [phone] YECKLEY, GILBERT Next of Kin Unknown +[phone] YECKLEY, EVERETT Next of Kin Unknown +[phone] YECKLEY, GILBERT Next of Kin Unknown +[phone] YECKLEY, EVERETT Next of Kin Unknown +[phone] YECKLEY, GILBERT Next of Kin Unknown +[phone] YECKLEY, EVERETT Next of Kin Unknown +[phone] YECKLEY, GILBERT Next of Kin Unknown +[phone] EVERETT MENESES Next of Kin Unknown [phone] DEBBIE MENESES Next of Kin Unknown [phone] DEBBIE MENESES Next of Kin Unknown [phone] Care Team Providers Care Mobile Service Rv Technician Name Role Phone JR. ISHAN, MALIK Schultz Attending Unavaila torrie MURILLO, BILLIE Attending Unavailable LISETTE DAUGHERTY Attending Unavailable KENDELL VIZCARRA Attending Unavailable AICHHOLZ, BILLIE Referring Unavailable DATLISETTE RESENDIZ Attending Unavailable BELLAHHOLJuany, BILLIE Attending Unavailable KENDELL VIZCARRA Referring Unavailable APLINGWALESKA Attending Unavailable APLINGWALESKA Referring Unavailable APLING, WALESKA Mccray Referring Unavailable AICHHOLJuany, BILLIE Attending Unavailable DORI WESLEY Attending Unavailable NIMCO FERRARO Attending Unavailable JR. ISHAN, MALIK Schultz Attending Unavaila BILLIE Sow Attending Unavailable JR. SIHAN, MALIK Schultz Attending Unavaila BILLIE oSw Attending Unavailable DORI WESLEY Attending Unavailable DORI WESLEY Referring Unavailable JR. ISHAN, MALIK Schultz Attending UnavailDORI Renee Referring Unavailable AICHHOLJuany, BILLIE Ortiz Primary Care Unavailable GIL RUSSO Referring Unavailable AICHHOLZ, BILLIE Ortiz Primary Care Unavailable GIL RUSSO Referring Unavailable AICHHOLZ, BILLIE J Primary Care Unavailable GIL RUSSO Attending Unavailable GIL RUSSO Referring Unavailable AICHHOLJuany, BILLIE Ortiz Primary Care Unavailable MALIK BEAL JR Admitting UnavailMALIK Oakley JR Attending Unavailabl e MALIK BEAL JR Referring Unavailabl e AICHHOLZ, BILLIE J Primary Care Unavailable GIL RUSSO Attending Unavailable AICHHOLZ, BILLIE Ortiz Primary Care Unavailable GIL RUSSO Attending Unavailable AICHHOLJuany, BILLIE Ortiz Primary Care Unavailable MEJIA WINSTON, YARLEY Hong Primary Care Unavailable LEX GALICIA Referring Unavailable MOMALIK HUANG Attending Unavailable MOUKARBEZEQUIEL, MALIK Attending Unavailable MOUKAMALIK COMER Admitting Unavailable MOUKAMALIK COMER Attending Unavailable PROBLEMS DATE TYPE CONDITION / CODE ATTENDING STATUS [facility] 04/19/2022 Active Other specified disorders of kidney and ureter / N28.89(ICD-10) NA Active [facility] 04/19/2022 Active Renal mass / N28.89(ICD-10) [facility] 05/08/2024 Unknown Pain in right kn ee / M25.561(ICD-10) MALIK BEAL JR [facility] 05/08/2024 Unknown right knee media l meniscal tear / UNK(Unknown) MALIK BEAL JR [facility] 05/03/2024 Unknown Essential (prima ry) hypertension / I10(ICD-10) [facility] 05/03/2024 Unknown Activated protei n C resistance / D68.51(ICD-10) [facility] 05/03/2024 Unknown Unspecified asth ma, uncomplicated / J45.909(ICD-10) [facility] 05/03/2024 Unknown Atherosclerotic heart disease of [place] coronary artery without angina pectoris / I25.10(ICD-10) [facility] 05/03/2024 Unknown Chronic kidney disease, stage 3a / N18.31(ICD-10) [facility] 04/30/2024 Unknown Encounter for ot her preprocedural examination / Z01.818(ICD-10) [facility] 09/21/2023 Admitting Diagnosis Peripheral vascular disease, unspecified / I73.9(ICD-10) [facility] 05/20/2022 Admitting Diagnosis Activated protein C resistance / D68.51(ICD-10) [facility] 04/27/2024 Admitting Diagnosis Encounter for other preprocedural examination / Z01.818(ICD-10) [facility] 05/20/2022 Admitting Diagnosis Personal history of other venous thrombosis and embolism / Z86.718(ICD-10) [facility] 05/20/2022 Admitting Diagnosis Morbid (severe) obesity due to excess calories / E66.01(ICD-10) [facility] Diagnosis Atherosclerotic heart disease of [place] coronary artery without angina pectoris / I25.10(ICD-10) MALIK NI [facility] 09/21/2023 Admitting Diagnosis Mixed hyperlipidemia / E78.2(ICD-10) [facility] 09/21/2023 Admitting Diagnosis Localized edema / R60.0(ICD-10) [facility] PROCEDURES No Procedure Records Found RESULTS CT ABDOMEN W IVCON Observed: 08/21/2024 11:14 AM Status: F Source: [facility] * * *Final Report* * * DATE OF EXAM: Aug 21 2024 11:14AM [facility] 0533 - CT ABDOMEN W IVCON / PROCEDURE REASON: multiple diagnoses * * * * Physician Interpretation * * * * RESULT: EXAMINATION: CT ABDOMEN WITH IV CONTRAST CLINICAL HISTORY: Renal mass. Examination for follow-up. TECHNIQUE: CT of the abdomen was performed using standard technique, scanning from just above the dome of the diaphragm to the iliac crest. MQ: CTAbdW_4 Contrast: IV: 100 ml of Omnipaque 350 Oral: 500 ml of Omni 240 10-25ml diluted with water CT Radiation dose: Integrated Dose-length product (DLP) for this visit = 1051 mGy*cm. CT Dose Reduction Employed: mAs-kVp adjusted based on patient size-age COMPARISON: CT abdomen 05/17/2023, 10/07/2022 and 04/05/2022 RESULT: Liver: Normal liver morphology. There is focal hepatic steatosis adjacent to the gallbladder. No suspicious hepatic mass. Biliary: No bile duct dilation. The gallbladder is absent. Spleen: No mass. No splenomegaly. Pancreas: No mass or duct dilation. Adrenals: Unchanged mild bilateral adrenal thickening. Kidneys: Right Kidney: A heterogeneously enhancing mass arising from the medial interpolar right kidney measures 3.3 x 3.8 cm on series 3, image 55 (previously 3 x 3.7 cm). No collecting system dilatation. No new renal mass. Patent right renal veins and inferior vena cava. Left Kidney: Normal enhancement of the renal parenchyma. No suspicious renal mass. No collecting system dilatation. GI tract: The imaged bowel is normal in caliber and without evidence of wall thickening or obstruction. Lymph nodes: No abdominal lymphadenopathy. Unchanged subcentimeter short axis gastrohepatic ligament and retroperitoneal lymph nodes. Mesentery/Peritoneum: No ascites or mass. Retroperitoneum: No mass. Vasculature: - Abdominal aorta: Atherosclerotic calcifications without aneurysm. - Celiac and SMA: Patent without stenosis. - Portal venous system (SMV, splenic vein, portal vein and branches): Patent. - Hepatic veins: Incompletely opacified, likely due to early phase of enhancement. Bones/Soft Tissues: No destructive lytic or blastic osseous abnormality. Degenerative change involves the lumbar spine. Lower thorax: Unremarkable. Localizer images: No additional findings. IMPRESSION: 1. Since 05/17/2023, mild increase in size of a now 3.8 cm right renal mass, compatible with a solid renal neoplasm. 2. Patent renal veins and inferior vena cava. No abdominal metastatic disease. Transcribe Date/Time: Aug 21 2024 11:39A Dictated by: TARSHA TURK MD This examination was interpreted and the report reviewed and electronically signed by: TARSHA TURK MD on Aug 21 2024 12:00PM EST Thank you for allowing us to participate in the care of your patient. Should there be any questions regarding this interpretation, please call [phone]. If you are unable to reach us at the number above, please feel free to contact [facility] eRadiology at [phone]. [id number] PROGRESS Observed: 08/21/2024 10:15 AM Status: COMPLETED Source: [facility] HNO ID: [id number] Author: HARRY BARROW RT(R) Service: ? Author Type: Technologist Type: Progress Notes Filed: 08/21/2024 10:36 Note Text: Radiology Service Progress Note PATIENT NAME: Elmer Meneses DATE OF SERVICE: August 21, 2024 TIME: 10:36 AM PATIENT IDENTITY VERIFICATION COMPLETED USING TWO (2) IDENTIFIERS: Name and Date of confirmed by patient verbally. FALL SCREENING: Has the patient had 2 falls in the last year or 1 fall with injury or currently using an Ambulatory Assistive Device (Walker, Cane, Wheelchair, Crutches, etc.)? No PATIENT GENDER DATA: Assigned female at . status: : No status: NO. PATIENT RELEVANT IMPLANT DATA REVIEWED: Not Applicable PATIENT PRESENTS WITH AN IMPLANTABLE OR ATTACHED CALF SKINNER: No RADIOLOGY DEPARTMENT: CT; Exam(s) Completed: Chest Abdomen Pelvis PERIPHERAL IV DATA: Site assessment: Clean,Dry and Intact, Site disposition Discontinued SIGNED BY: RT Luan(R) August 21, 2024 10:36 AM PROGRESS Observed: 08/21/2024 10:15 AM Status: COMPLETED Source: [facility] ID: [id number] Author: EMILIA GREENE RN Service: ? Author Type: Registered Nurse Type: Progress Notes Filed: 08/21/2024 12:00 Note Text: Radiology Service Progress Note DATE OF SERVICE: August 21, 2024 TIME: 11:58 AM PATIENT WEIGHT: 284LBS PATIENT IDENTITY VERIFICATION COMPLETED USING TWO (2) STANDARD IDENTIFIERS: Name and Date of confirmed by patient verbally. FALL SCREENING: Has the patient had 2 falls in the last year or 1 fall with injury or currently using an Ambulatory Assistive Device (Walker, Cane, Wheelchair, Crutches, etc.)? No PATIENT GENDER DATA: Assigned female at . status: : No status: NO. ALLERGIES: Reviewed and unchanged CONTRAST ALLERGY: No EXAM: CT -CONTRAST INDUCED NEPHROPATHY RISK FACTORS: History of Kidney surgery, Kidney neoplasm, Liver disease, and/or any recent Nephrotoxic Chemotherapy or other Nephrotoxic medications CREATININE: Creatinine Date Value Ref Range Status 08/21/2024 1.08 (H) 0.58 - 0.96 mg/dL Final 05/17/2023 1.19 (H) 0.58 - 0.96 mg/dL Final 10/07/2022 1.06 (H) 0.58 - 0.96 mg/dL Final Estimated Glomerular Filtration Rate Date Value Ref Range Status 08/21/2024 60 >=60 mL/min/1.73m? Final Comment: Estimated Glomerular Filtration [...] RESULTS: POC done: Yes, See Lab Tab August 21, 2024 TREATMENT: No Hydration needed. IV SITE: Ambulatory: A peripheral IV was started in the Right forearm with a Angio cath: 20 gauge. IV SITE APPEARANCE: Clean,Dry and Intact SIGNATURE: Emilia Greene RN PATIENT NAME: Elmer Meneses DATE: August 21, 2024 TIME: 11:58 AM CREATININE + EGFR PNL SERPLBLD Collecte d: 08/21/2024 9:49 AM Status: F Source: [facility] Order Comment: Specimen Type : BLOOD SPECIMEN Ordering Facility: [facility] Address: [address] [place] [address] TYPE CODE TESTS RESULT OUT OF RANGE REFERENCE UNITS LAB 2160-0(LOINC) Creat SerPl-mCnc 1.08 High 0.58-0.96 mg/dL LAB 43113-4(LOINC) Creatinine + eGFR Pnl SerPlBld 60 >=60 mL/min/1. 73m??? Result Comment: Estimated Gl omerular Filtration Rate (eGFR) is calculated using the 2020 CKD-EPI creatinine equation. This equation utilizes serum creatinine, sex, and age as parameters. The creatinine assay has traceable calibration to isotope dilution-mass spectrometry. Refer to KDIGO guidelines for clinical interpretation. In patients with unstable renal function, e.g. those with acute kidney injury, the eGFR may not accurately reflect actual GFR. Performed By: #### [id number] # ### [facility] CLIA [id number] [address] [place], [place] [id number] BEDSIDE GLUCOSE LAB Collected: 05/08/2024 12:17 PM Status: COMPLETED Source: [facility] TYPE CODE TESTS RESULT OUT OF RANGE REFERENCE UNITS LAB BEDG(LOINC) BEDSIDE GLUCOSE LAB 172 High 65-99 mg/dL XR CHEST 2 VWS Observed: 05/03/2024 12:25 PM Status: COMPLETED Source: [facility] XR CHEST 2 VWS CHEST 2 VIEWS HISTORY: Smoker, preoperative evaluation COMPARISON: None FINDINGS: No focal airspace disease, pulmonary edema, pleural effusions, or pneumothorax. Normal cardiomediastinal silhouette. IMPRESSION: No acute cardiopulmonary disease. Finalized by Sekou Garcia MD on 05/03/2024 3:17 PM APTT Collected: 05/03/2024 12:11 PM Status: COMPLETED Source: [facility] TYPE CODE TESTS RESULT OUT OF RANGE REFERENCE UNITS LAB PTT(LOINC) APTT 34 26-37 sec Result Comment: NEW REFERENC E RANGE Performed By: #### [id number] # ### [facility] ([id number]) [address] [place] [address] #### PINR #### [facility] ([id number]) [address] [place] [address], [address] [place] [address] PROTIME AND INR Collected: 05/03/2024 12:11 PM Status: COMPLETED Source: [facility] TYPE CODE TESTS RESULT OUT OF RANGE REFERENCE UNITS LAB PROX(LOINC) PROTIME 12.5 9.8-13.2 sec LAB INR(LOINC) INR 1.1 0.9-1.2 Performed By: #### 18028-4 # ### [facility] ([id number]) [address] [place] [address] #### PINR #### [facility] ([id number]) [address] [place] [address], [address] [address] CBC AND AUTO DIFF Collected: 04/30/2024 1:59 PM Status: COMPLETED Source: [facility] TYPE CODE TESTS RESULT OUT OF RANGE REFERENCE UNITS LAB WBC(LOINC) WBC COUNT 10.6 4.0-11.0 X10E9/L LAB RBC(LOINC) RBC COUNT 4.72 3.80-5.20 X10E12/L LAB HGB(LOINC) HEMOGLOBIN 14.2 11.7-15.5 g/dL LAB HCT(LOINC) HEMATOCRIT 42.6 35-47 % LAB MCV(LOINC) MCV 90 80-100 fL LAB MCH(LOINC) MCH 30.1 27-34 pg LAB MCHC(LOINC) MCHC 33.4 32-36 g/dL LAB RDW(LOINC) RDW 16.2 High 11.5-15.0 % LAB PLTC(LOINC) PLATELET COUNT 207 150-450 X10E9 /L LAB MPV(LOINC) MPV 9.7 7-12 fL LAB NEUT(LOINC) % NEUTROPHILS 68.2 % LAB LYMP(LOINC) % LYMPHOCYTES 22.1 % LAB MONO(LOINC) % MONOCYTES 7.2 % LAB EOS(LOINC) % EOSINOPHILS 1.6 % LAB BASO(LOINC) % BASOPHILS 0.9 % LAB ANEUT(LOINC) ABSOLUTE NEUTROPHIL 7.2 High 1.5-6.6 X10E9/L LAB ALYMP(LOINC) ABSOLUTE LYMPHOCYTE 2.3 1.0-3.5 X10E9/L LAB AMONO(LOINC) ABSOLUTE MONOCYTE 0.8 0-0.9 X10E9/L LAB AEOS(LOINC) ABSOLUTE EOSINOPHIL 0.2 0.0-0.4 X10E9/L LAB ABASO(LOINC) ABSOLUTE BASOPHIL 0.1 0.0-0.2 X10E9/L Performed By: #### CBCA #### [facility] ([id number]) [address] [place] [address], [address] [place] [address] COMPREHENSIVE METABOLIC PANEL Collected: 2024 1:59 PM Status: COMPLETED Source: [facility] TYPE CODE TESTS RESULT OUT OF RANGE REFERENCE UNITS LAB NA(LOINC) SODIUM 138 134-146 mmol/L LAB K(LOINC) POTASSIUM 4.7 3.5-5.0 mmol/L LAB CL(LOINC) CHLORIDE 103 98-109 mmol/L LAB CO2(LOINC) CARBON DIOXIDE 28 22-32 mmol/L LAB AGAP(LOINC) ANION GAP 7 5-15 mmol/L LAB BUN(LOINC) BLOOD UREA NITROGEN 18 5-23 mg/dL LAB CRET(LOINC) CREATININE 1.26 High 0.40-1.00 mg/dL Result Comment: METHOD TRACE ABLE TO IDMS STANDARD LAB GLU(LOINC) GLUCOSE 88 65-99 mg/dL LAB CA(LOINC) CALCIUM 9.0 8.5-10.5 mg/dL LAB TP(LOINC) TOTAL PROTEIN 6.9 6.0-8.0 g/dL LAB ALB(LOINC) ALBUMIN 3.8 3.2-5.3 g/dL LAB ALK(LOINC) ALKALINE PHOSPHATASE 137 High 39-130 U/L LAB AST(LOINC) AST 12 0-41 U/L LAB ALT1(LOINC) ALT 16 0-31 U/L LAB TBIL(LOINC) BILIRUBIN,TOTAL 0.3 0.3-1.2 mg/d L LAB EGFR(LOINC) eGFR (CKD-EPI) NON-RACE DEPENDENT 49 Low >59 ml/min/1 .73sq.m Result Comment: Reported eGFR is based on the CKD-EPI 2020 equation that does not use a race coefficient. Performed By: #### CMP #### [facility] ([id number]) [address], [address] [place] [address] PROGRESS Observed: 04/27/2024 1:00 PM Status: COMPLETED Source: [facility] Cardiology - [facility] Subjective Elmer Meneses is a 58 y.o. 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 She reports that Dr. Mendosa told her that she will need to be on lifelong anticoagulation due to Factor V Le[place]. Xarelto was recently switched to Eliquis. At her prior visit with ZELALEM Pop [...] No palpitations and no dizziness or lightheadedness. She reports that her leg claudication improved significantly after the intervention in September 2023. She continues to be on dual antiplatelet therapy with aspirin and Plavix. In addition she is on Eliquis 2.5 mg twice daily. She hurt her knee and her ankle and she is undergoing knee procedure. Review of Systems Cardiovascular: Positive for dyspnea on exertion (stable) and leg swelling (stable). Respiratory: Positive for cough. Musculoskeletal: Positive for muscle cramps. All other systems reviewed and are negative. Objective Visit Vitals BP 121/63 Pulse 73 Ht 1.626 m (5' 4 ) Wt 117 kg (258 lb) SpO2 95% BMI 44.29 kg/m??? OB Status Postmenopausal Smoking Status Every Day BSA 2.3 m??? Physical Exam Constitutional: Appearance: She is [...] No Known Allergies Medications Current Outpatient Medications: apixaban (Eliquis) 2.5 mg tablet, Take 2.5 mg by mouth twice a day., Disp: , Rfl: aspirin 81 mg chewable tablet, Chew 1 tablet (81 mg) in the morning., Disp: 90 tablet, Rfl: 3 atorvastatin (Lipitor) 80 mg tablet, TAKE 1 TABLET BY MOUTH EVERY DAY, Disp: 90 tablet, Rfl: 3 cetirizine (ZyrTEC) 10 mg tablet, Take 10 mg by mouth in the morning., Disp: , Rfl: cyanocobalamin (Vitamin B-12) 50 mcg tablet, Take 50 mcg by mouth in the morning., Disp: , Rfl: dapagliflozin propanediol (Farxiga) 10 mg, Take 10 mg by mouth., Disp: , Rfl: DULoxetine (Cymbalta) [address] capsule, Take by mouth in the morning., Disp: , Rfl: ferrous sulfate 325 (65 Fe) MG tablet, Take 1 tablet by mouth in the morning., Disp: , Rfl: folic acid (Folvite) 1 mg tablet, Take 1 mg by mouth in the morning., Disp: , Rfl: methocarbamol (Robaxin) 500 mg tablet, Take 500 mg by mouth in the morning and at bedtime., Disp: , Rfl: metoprolol succinate XL (Toprol-XL) 25 mg 24 hr tablet, TAKE 1 TABLET IN THE MORNING, IN ADDITION TO THE 50 MG TABLET TO EQUAL 75MG DAILY, Disp: 90 tablet, Rfl: 3 metoprolol succinate XL (Toprol-XL) 50 mg 24 hr tablet, TAKE 1 TABLET BY MOUTH EVERY DAY IN THE MORNING, Disp: 90 tablet, Rfl: 3 NovoLOG Mix 70-30FlexPen U-100 100 unit/mL (70-30) injection, INJECT 70 UNITS SUBCUTANEOUSLY TWICE A DAY, Disp: , Rfl: pregabalin (Lyrica) 100 mg capsule, Take 100 mg by mouth every 8 (eight) hours., Disp: , Rfl: fexofenadine (Luz) 180 mg tablet, fexofenadine 180 mg tablet TAKE 1 TABLET BY MOUTH EVERY DAY, Disp: , Rfl: furosemide (Lasix) 40 mg tablet, Take 1 tablet (40 mg) by mouth in the morning. (Patient not taking: Reported on 04/27/2024), Disp: 90 tablet, Rfl: 3 pantoprazole (ProtoNix) 40 mg EC tablet, Take 40 mg by mouth before breakfast. Do not crush, chew, or split., Disp: , Rfl: Recent Labs No visits with results within 6 Month(s) from this visit. Latest known visit with results is: Admission on 10/19/2023, Discharged on 10/19/2023 Component Date Value Sodium 10/19/2023 138 Potassium 10/19/2023 4.4 Chloride 10/19/2023 103 CO2 10/19/2023 28 BUN 10/19/2023 24 Creatinine 10/19/2023 1.17 Glucose 10/19/2023 169 (H) Calcium 10/19/2023 8.8 Anion Gap 10/19/2023 11 eGFR 10/19/2023 54.4 (L) BUN/Creatinine Ratio 10/19/2023 20.5 Auto WBC 10/19/2023 11.60 (H) RBC 10/19/2023 4.68 Hemoglobin 10/19/2023 14.2 Hematocrit 10/19/2023 44.2 MCV 10/19/2023 94.4 MCH 10/19/2023 30.3 MCHC 10/19/2023 32.1 RDW 10/19/2023 14.6 Neutrophils Relative 10/19/2023 66.1 Lymphocytes Relative 10/19/2023 22.8 Monocytes Relative 10/19/2023 6.8 Eosinophils Relative 10/19/2023 2.2 Basophils Relative 10/19/2023 0.8 Neutrophils Absolute 10/19/2023 7.67 (H) Lymphocytes Absolute 10/19/2023 2.65 Monocytes Absolute 10/19/2023 0.79 Eosinophils Absolute 10/19/2023 0.25 Basophils Absolute 10/19/2023 0.09 Platelets 10/19/2023 190 nRBC % 10/19/2023 0.0 Immature Granulocytes Re* 10/19/2023 1.3 (H) Immature Granulocytes Ab* 10/19/2023 0.15 POCT ACT 10/19/2023 327 (A) QC Pass/Fail 10/19/2023 Passed QC LOT # 10/19/2023 18 QC Expiration Date 10/19/2023 22,825 Blood testing 09/15/2023: Potassium 4.5, BUN 16, creatinine 1.29, EGFR 43, hemoglobin A1c 8, LFTs within normal limits, triglycerides 238, cholesterol 93, LDL 17, HDL 29. Blood testing 07/07/2023: Hemoglobin 14.4, platelets 169, BUN 21, creatinine 1.18, potassium 4.3, LFTs normal, creatinine clearance 66. Blood testing 10/06/2022: potassium 3.7, BUN 12, creatinine 1.07, EGFR 53, LFTs within normal limits except for mild elevation of alkaline phosphatase, triglycerides 194, LDL 21, cholesterol 89, HDL 30. Blood testing 04/22/2022: Hemoglobin 7.3, platelets 318, potassium 4.4, BUN 15, creatinine 0.89. BMP 2019: BUN 15, creatinine 0.86, potassium 5.1 CBC 2019: Within normal limits. Lipid profile 04/17/2019: Cholesterol 171, triglycerides 307, HDL 30, LDL 80. Imaging and other tests ECG 04/27/2024: Normal sinus rhythm, low voltage QRS. Lower extremity angiogram/intervention 10/19/2023: Impression/Findings: Patent aortoiliac arterial system bilaterally. High-grade in-stent restenoses in the mid right superficial femoral artery treated with balloon angioplasty and drug-coated balloon angioplasty. Occluded right posterior tibial artery with filling at the level of the foot by collateral from the peroneal artery. 40 to 50% mid left SFA stenosis and occluded left posterior tibial artery. Patent popliteal, anterior tibial and peroneal arteries bilaterally. Plan: Dual antiplatelet therapy with aspirin and clopidogrel for at least 3 to 6-month after drug-coated balloon treatment of the SFA. Resume Xarelto in 2 days. The patient will be followed up in clinic in about 1-2 months with a plan to obtain lower extremity non-invasive studies for follow-up. Stress test 09/19/2023: CONCLUSION: 1. No acute or reversible ischemia. 2. Small fixed perfusion defect versus attenuation artifact at the apex. 3. Normal left ventricle volume, wall motion, and ejection fraction. ECG does not show ischemic changes with Lexiscan. Echocardiogram 09/15/2023: CONCLUSION: 1. Global left ventricular systolic function is normal; visually estimated ejection fraction is 55 to 60% 2. Normal right ventricular size and systolic function 3. Normal diastolic function 4. The left atrium is normal in size 5. Valves are poorly seen; no significant valvular abnormalities 6. Anterior free space; trivial effusion versus fat pad [place] 09/12/2023: [place]A: 0.79, 1.06 TBI: 0.45, 1.14 The [place] demonstrates mild arterial disease on the right, normal on the left The TBI demonstrates moderate ischemia on the right, normal on the left Prior testing: Due to pulsatile tinnitus and I checked MRI and MRA of brain on 07/26/2020 and those were nonrevealing of any aneurysm. Arterial duplex ultrasound right leg 06/03/2020: Patent superficial femoral artery stent. Reversal of flow in the proximal to mid posterior tibial artery. Lower extremity angiography and intervention 04/22/2020: 1. Patent aortoiliac arterial system bilaterally. 2. A 40%-50% mid left SFA stenosis and occluded left posterior tibial artery. 3. Diffuse stenosis in the right mid superficial femoral artery reaching up to 95% stenosis, treated by balloon angioplasty, and a Zilver PTX drug-eluting stent, occluded right posterior tibial artery with filling at the level of the foot by collateral from the peroneal artery, occluded dorsalis pedis artery. EKG 01/15/2019: Normal. PFTs 12/01/2018: Moderate diffusion impairment. Echocardiogram 04/05/2019: Global left ventricular systolic function is normal. No regional wall motion abnormality. Normal diastolic function. Normal right ventricular systolic function. Unable to assess right sided pressures due to lack of measurable tricuspid regurgitation. No valvular stenosis or significant insuffiency. Rest/exercise ABIs 07/02/2019: Resting ABIs: Right 0.83 [femoral-popliteal disease]; left 0.96. Post 7.41 minutes exercise ABIs: Right 0.68; left 0.66. Assessment/Plan Diagnoses and all orders for this visit: Pre-op evaluation - ECG 12 lead unit performed Coronary artery disease involving nuiqsut coronary artery of nuiqsut heart without angina pectoris PAD (peripheral artery disease) - Vascular US ankle brachial index ([place]) without exercise; Future History of deep vein thrombosis Mixed hyperlipidemia Morbid obesity (CMS/HCC) Edema of lower extremity Factor V Leiden CAD: She has moderate coronary artery disease by cath 2019 that we are managing medically. Echocardiogram September 15, 2023 showed normal ventricular function and no significant valvular dysfunction. Continue aspirin, statin and beta-zhao therapy. PAD: She is s/p right SFA stenting with a drug-eluting stent. She is doing well after the most recent intervention September 2023 to in-stent restenosis of the right SFA with drug-coated balloon angioplasty. She has been on dual antiplatelet therapy. I will stop Plavix and continue aspirin. I will check ABIs to follow-up on the results of the intervention. History of DVT, factor V Leyden: Continue Eliquis 2.5 mg twice daily. preoperative evaluation for knee surgery: She can proceed at low to intermediate risk from a cardiac perspective. She can hold Eliquis 2 days prior to the procedure and resume it as soon as possible afterwards. One of the main issues is the higher risk for DVT development given her prior history and Eliquis should be resumed very early on after the knee surgery. I prefer that she continues aspirin in the perioperative period however if absolutely needed it can be held 3 to 5 days prior to the procedure and resumed afterwards. Her ECG today showed normal sinus rhythm. She will be getting blood testing with her PCP soon. I will see her in follow-up in 6 months. Follow up in about 6 months (around 10/28/2024). Malik Ni MD OFFICE VISIT Observed: 04/27/2024 1:00 PM Status: COMPLETED Source: [facility] [id number] Elmer Meneses F Date Provider Department Center 04/27/2024 367-MALIK NI CARD [facility] Family History Problem Relation Age of Onset Diabetes Mother Heart attack Mother Other Mother Coronary artery disease Mother Diabetes Father Coronary artery disease Father Heart attack Maternal Grandfather Family Status - Relation Status Age at Mother Father Maternal Grandfather Level of Service:57090 GA OFFICE/OUTPATIENT ESTABLISHED MOD MDM 30 MIN MR KNEE RIGHT WO IV CONTRAST Observed: 02/21/2024 10:28 AM Status: F Source: [facility] EPIC Exam: MR KNEE RIGHT WO IV CO NTRAST History: Knee pain Technique: Multiplanar multisequence MRI [...] sprain. ELECTRONICALLY SIGNED BY: Lex Feng DO MR ANKLE RIGHT WO IV CONTRAST Observed: 02/09/2024 11:50 AM Status: F Source: [facility] EPIC EXAM/TECHNIQUE: MR ANKLE RIG HT WO IV CONTRAST HISTORY: Posterior ankle pain [...] the knot of Eugenio. ELECTRONICALLY SIGNED BY: MD ALPESH Feliciano Observed: 10/19/2023 6:31 PM Status: COMPLETED Source: [facility] RN educated pt on d/c instru ctions. RN encouraged pt to voice any questions or concerns. Pt verbalizes no questions or concerns at this time. ANES Observed: 10/19/2023 11:15 AM Status: COMPLETED Source: [facility] Patient: Elmer Meneses Procedure Information Date/Time: 10/19/23 1100 Procedure: Lower extremity angiogram - PC APPROVED Location: [facility] 2 BIPLANE / [facility] (Cath) Providers: Malik Ni MD Clinical information reviewed: Allergies Meds OB [...] Plan discussed with attending. Additional Equipment Requests HP Observed: 10/19/2023 11:15 AM Status: COMPLETED Source: [facility] H&P reviewed. The patient wa s examined and there are no changes to the H&P. Discussed risks, benefits, and alternative therapies with the patient, she understands and willing to proceed with peripheral angiogram and possible intervention. Randy Lala MD PGY-7 Interventional Corporate Travel Coordinator BASIC METABOLIC PANEL Collected: 2023 11:13 AM Status: UNK Source: [facility] TYPE CODE TESTS RESULT OUT OF RANGE REFERENCE UNITS LAB [id number] SODIUM (MMOL/L) IN SER/PLAS 138 136-145 mmol/L LAB [id number] POTASSIUM (MMOL/L) IN SER/PLAS 4.4 3.5-5.1 mmol/L LAB [id number] CHLORIDE (MMOL/L) IN SER/PLAS 103 98-107 mmol/L LAB [id number] CARBON DIOXIDE, TOTAL (MMOL/L) IN SER/PLAS 28 21-31 mmol/L LAB [id number] UREA NITROGEN (MG/DL) IN SER/PLAS 24 7-25 mg/dL LAB [id number] CREATININE (MG/DL) IN [facility]/PLAS 1.17 0.60-1.20 mg/dL LAB [id number] GLUCOSE (MG/DL) IN [facility]/PLAS 169 High 70-100 mg/dL LAB [id number] CALCIUM (MG/DL) IN SER/PLAS 8.8 8.6-10.3 mg/dL LAB [id number] ANION GAP IN SER/PLAS 11 7-20 mmol/L LAB [id number] GLOMERULAR FILTRATION RATE ML/MIN/1.73 SQ M.PREDICTED 54.4 Low >60.0 mL/min/ 1.73m*2 Result Comment: [facility]???s estimated glomerular filtration rate (eGFR) will no [...] disproportionately affect any one group of individuals. LAB [id number] UREA NITROGEN/CREA TININE (MASS RATIO) IN SER/PLAS 20.5 NA Performed By: #### [id number] ### # [facility] (BEAKER) [address] [place] [address] CBC WITH AUTO DIFFERENTIAL Collected: 0 10/19/2023 11:13 AM Status: UNK Source: [facility] TYPE CODE TESTS RESULT OUT OF RANGE REFERENCE UNITS LAB [id number] LEUKOCYTES(10*3/ UL) IN BLOOD BY AUTOMATED COUNT 11.60 High 4.00-10.60 10*3/uL LAB [id number] ERYTHROCYTES (10*6/UL) IN BLOOD BY AUTOMATED COUNT 4.68 3.80-5.00 10*6/uL LAB [id number] HEMOGLOBIN (G/DL) IN BLOOD 14.2 12.0-15.0 g/dL LAB [id number] HEMATOCRIT (%) IN BLOOD BY AUTOMATED COUNT 44.2 36.0-48.0 % LAB [id number] ERYTHROCYTE MEAN CORPUSCULAR VOLUME (FL) BY AUTOMATED COUNT 94.4 82.0-98.0 fL LAB [id number] ERYTHROCYTE MEAN CORPUSCULAR HEMOGLOBIN (PG) BY AUTOMATED COUNT 30.3 27.0-33.0 pg LAB [id number] ERYTHROCYTE MEAN CORPUSCULAR HEMOGLOBIN CONCENTRATION (G/DL) BY AUTOMATED 32.1 32.0-35.0 g/dL LAB [id number] ERYTHROCYTE DISTRIBUTION WIDTH (RATIO) BY AUTOMATED COUNT 14.6 11.5-15.0 % LAB [id number] NEUTROPHILS/100 LEUKOCYTES IN BLOOD BY AUTOMATED COUNT 66.1 40.0-72.0 % LAB [id number] LYMPHOCYTES/100 LEUKOCYTES IN BLOOD BY AUTOMATED COUNT 22.8 20.0-45.0 % LAB [id number] MONOCYTES/100 LEUKOCYTES IN BLOOD BY AUTOMATED COUNT 6.8 5.0-12.0 % LAB [id number] EOSINOPHILS/100 LEUKOCYTES IN BLOOD BY AUTOMATED COUNT 2.2 0.0-6.0 % LAB [id number] BASOPHILS/100 LEUKOCYTES IN BLOOD BY AUTOMATED COUNT 0.8 0.0-1.0 % LAB [id number] NEUTROPHILS (10*3/UL) IN BLOOD BY AUTOMATED COUNT 7.67 High 1.60-7.60 10*3/uL LAB [id number] LYMPHOCYTES (10*3/UL) IN BLOOD BY AUTOMATED COUNT 2.65 1.20-4.00 10*3/uL LAB [id number] MONOCYTES (10*3/UL) IN BLOOD BY AUTOMATED COUNT 0.79 0.10-1.00 10*3/uL LAB [id number] EOSINOPHILS (10*3/UL) IN BLOOD BY AUTOMATED COUNT 0.25 0.00-0.50 10*3/uL LAB [id number] BASOPHILS (10*3/UL) IN BLOOD BY AUTOMATED COUNT 0.09 0.00-0.20 10*3/uL LAB [id number] PLATELETS (10*3/UL) IN BLOOD AUTOMATED COUNT 190 150-400 10*3/uL LAB 254 NRBC (PER 100 WBCS) BY AUTOMATED COUNT 0.0 0 % LAB 1767 IMMATURE GRANULOCYTES/100 LEUKOCYTES IN BLOOD BY AUTOMATED COUNT 1.3 High 0.0-1.0 % LAB 1768 IMMATURE GRANULOCYTES (10*3/UL) IN BLOOD BY AUTOMATED COUNT 0.15 0.00-0.20 10*3/uL Performed By: #### [id number] # ### [facility] ([facility]) [address] [place] [address] Observed: 09/21/2023 11:15 AM Status: COMPLETED Source: [facility] Cardiology - [facility] Subjective Elmer Meneses is a 57 y.o. year old female patient being seen for follow up stress test, echo, and [place]'s. Denies chest pain and SOB, but c/o a lot of lightheadedness/dizziness lately. Denies syncope. Continues to have claudication. Patient Active Problem List Diagnosis Coronary atherosclerosis Dyspnea on exertion Factor V Leiden ([facility]/HCC) Hypertriglyceridemia History of deep vein thrombosis Intermittent claudication ([facility]/HCC) Tobacco dependence syndrome Smoker Renal mass Other [...] of both eyes (CMS/HCC) Diabetic neuropathy, painful ([facility]/HCC) Encounter for annual wellness visit (AWV) in [...] Xarelto for that. She reports that Dr. Mendosa told her that she will need to be on lifelong anticoagulation due to Factor V Leyden. At her prior visit with [employer] ENRICHMENT DIRECTOR Niyah Pop on 04/27/2019 she was complaining [...] 47.55 kg/m??? Smoking Status Every Day BSA 2.39 m??? Physical Exam Constitutional: Appearance: She is [...] EVERY DAY, Disp: 90 tablet, Rfl: 3 cetirizine (ZyrTEC) 10 mg tablet, Take 10 mg by mouth in the morning., Disp: , Rfl: dapagliflozin propanediol (Farxiga) 10 mg, Take 10 mg by mouth., Disp: , Rfl: diclofenac (Cataflam) 50 mg tablet, Take 50 mg by mouth in the morning and 50 mg at noon and 50 mg in the evening., Disp: , Rfl: DULoxetine (Cymbalta) [address] capsule, Take by mouth in the morning., Disp: , Rfl: ferrous sulfate 325 (65 Fe) MG tablet, Take 1 tablet by mouth in the morning., Disp: , Rfl: fexofenadine (Luz) 180 mg tablet, fexofenadine 180 mg tablet TAKE 1 TABLET BY MOUTH EVERY DAY, Disp: , Rfl: furosemide (Lasix) 40 mg tablet, Take 1 tablet (40 mg) by mouth in the morning., Disp: 90 tablet, Rfl: 3 gabapentin (Neurontin) 300 mg capsule, Take 600 mg by mouth in the morning and at bedtime., Disp: , Rfl: metFORMIN (Glucophage) 1,000 mg tablet, Take 1,000 mg by mouth in the morning and at bedtime., Disp: , Rfl: methocarbamol (Robaxin) 500 mg tablet, Take 500 mg by mouth in the morning and at bedtime., Disp: , Rfl: metoprolol succinate XL (Toprol-XL) 25 mg 24 hr tablet, Take 1 tablet (25 mg) by mouth in the morning. In addition to 50mg tablets daily = 75mg daily, Disp: 90 tablet, Rfl: 3 metoprolol succinate XL (Toprol-XL) 50 mg 24 hr tablet, TAKE 1 TABLET BY MOUTH EVERY DAY IN THE MORNING, Disp: 90 tablet, Rfl: 3 NovoLOG Mix 70-30FlexPen U-100 100 unit/mL (70-30) injection, INJECT 70 UNITS SUBCUTANEOUSLY TWICE A DAY, Disp: , Rfl: pregabalin (Lyrica) 100 mg capsule, Take 100 mg by mouth every 8 (eight) hours., Disp: , Rfl: sucralfate (Carafate) 1 gram tablet, Take 1 g by mouth in the morning, noon, at afternoon, at bedtime,., Disp: , Rfl: Xarelto 10 mg tablet, Take 10 mg by mouth once daily as directed., Disp: , Rfl: aspirin 81 mg chewable tablet, Chew 1 tablet (81 mg) in the morning., Disp: 90 tablet, Rfl: 3 Recent Labs No visits with results within 6 Month(s) from this visit. Latest known visit with results is: Legacy Encounter on 04/22/2020 Component Date Value Ventricular Rate 04/22/2020 96 Atrial Rate 04/22/2020 96 GA Interval 04/22/2020 150 QRS DURATION 04/22/2020 80 QT Interval 04/22/2020 334 QTC CALCULATION(BAZETT) 04/22/2020 421 P [place] 04/22/2020 35 R-Pamplico 04/22/2020 15 T Wave [place] 04/22/2020 43 Diagnosis 04/22/2020 Value:Normal sinus rhythm Normal ECG When compared with ECG of 15-JAN-2019 11:48, No significant change was found Confirmed by Bebo Victoria ([id number]) on 04/22/2020 4:35:25 PM Blood testing 09/15/2023: Potassium 4.5, BUN 16, creatinine 1.29, EGFR 43, hemoglobin A1c 8, LFTs within normal limits, triglycerides 238, cholesterol 93, LDL 17, HDL 29. Blood testing 07/07/2023: Hemoglobin 14.4, platelets 169, BUN 21, creatinine 1.18, potassium 4.3, LFTs normal, creatinine clearance 66. Blood testing 10/06/2022: potassium 3.7, BUN 12, creatinine 1.07, EGFR 53, LFTs within normal limits except for mild elevation of alkaline phosphatase, triglycerides 194, LDL 21, cholesterol 89, HDL 30. Blood testing 04/22/2022: Hemoglobin 7.3, platelets 318, potassium 4.4, BUN 15, creatinine 0.89. BMP 2019: BUN 15, creatinine 0.86, potassium 5.1 CBC 2019: Within normal limits. Lipid profile 04/17/2019: Cholesterol 171, triglycerides 307, HDL 30, LDL 80. Imaging and other tests Stress test 09/19/2023: CONCLUSION: 1. No acute or reversible ischemia. 2. Small fixed perfusion defect versus attenuation artifact at the apex. 3. Normal left ventricle volume, wall motion, and ejection fraction. ECG does not show ischemic changes with Lexiscan. Echocardiogram 09/15/2023: CONCLUSION: 1. Global left ventricular systolic function is normal; visually estimated ejection fraction is 55 to 60% 2. Normal right ventricular size and systolic function 3. Normal diastolic function 4. The left atrium is normal in size 5. Valves are poorly seen; no significant valvular abnormalities 6. Anterior free space; trivial effusion versus fat pad [place] 09/12/2023: [place]: 0.79, 1.06 TBI: 0.45, 1.14 The [place] demonstrates mild arterial disease on the right, normal on the left The TBI demonstrates moderate ischemia on the right, normal on the left Prior testing: Due to pulsatile tinnitus and I checked MRI and MRA of brain on 07/26/2020 and those were nonrevealing of any aneurysm. Arterial duplex ultrasound right leg 06/03/2020: Patent superficial femoral artery stent. Reversal of flow in the proximal to mid posterior tibial artery. Lower extremity angiography and intervention 04/22/2020: 1. Patent aortoiliac arterial system bilaterally. 2. A 40%-50% mid left SFA stenosis and occluded left posterior tibial artery. 3. Diffuse stenosis in the right mid superficial femoral artery reaching up to 95% stenosis, treated by balloon angioplasty, and a Zilver PTX drug-eluting stent, occluded right posterior tibial artery with filling at the level of the foot by collateral from the peroneal artery, occluded dorsalis pedis artery. EKG 01/15/2019: Normal. PFTs 12/01/2018: Moderate diffusion impairment. Echocardiogram 04/05/2019: Global left ventricular systolic function is normal. No regional wall motion abnormality. Normal diastolic function. Normal right ventricular systolic function. Unable to assess right sided pressures due to lack of measurable tricuspid regurgitation. No valvular stenosis or significant insuffiency. Rest/exercise ABIs 07/02/2019: Resting ABIs: Right 0.83 [femoral-popliteal disease]; left 0.96. Post 7.41 minutes exercise ABIs: Right 0.68; left 0.66. Assessment/Plan Diagnoses and all orders for this visit: Coronary artery disease involving nuiqs[place] coronary artery of nuiqs[place] heart without angina pectoris - Basic metabolic panel; Future - CBC and differential; Future PAD (peripheral artery disease) ([facility]) - Case Request Field Research Assistant: Lower extremity angiogram - Basic metabolic panel; Future - CBC and differential; Future - aspirin 81 mg chewable tablet; Chew 1 tablet (81 mg) in the morning. History of deep vein thrombosis Mixed hyperlipidemia Morbid obesity ([facility]) Edema of lower extremity Claudication (CMS/HCC) - Case Request Field Research Assistant: Lower extremity angiogram CAD: She has moderate coronary artery disease by cath 2018 that we are managing medically. Her echocardiogram March 2019 was within normal limits with normal ventricular and valvular functions. It could not assess the right sided pressures. A stress test September 19, 2023 showed no ischemia. Echocardiogram September 15, 2023 showed normal ventricular function and no significant valvular dysfunction. PAD: She is s/p right SFA stenting with a drug-eluting stent. Her right lower extremity arterial duplex ultrasound 05/2020 showed patent stent. Given prior GI bleeding, I had stopped Plavix completely. She is on Xarelto 10 mg daily which she takes for her prior history of DVT and factor V Leyden. She has tolerated well. She has been having symptoms of claudication. Her ABIs showed reduced perfusion in the right leg. In the past she has failed Pletal. She might have restenosis of the SFA stent. I discussed options for management. I will proceed with lower extremity angiography with possible right lower extremity intervention. Access site will be left groin. I asked her to start aspirin 81 mg daily. I explained the procedure in detail along with risks and benefits including risk of limb loss and contrast nephropathy and potential need for surgical intervention. She understands and agrees to proceed. At this time I will continue current furosemide 40 mg daily. Follow-up after the procedure. No follow-ups on file. Malik Ni MD PROGRESS Observed: 09/21/2023 11:15 AM Status: COMPLETED Source: [facility] Cardiology - [facility] Subjective Elmer Meneses is a 57 y.o. year old female [...] Xarelto for that. She reports that Dr. Mendosa told her that she will need to [...] 47.55 kg/m??? Smoking Status Every Day BSA 2.39 m??? Physical Exam Constitutional: Appearance: She is [...] EVERY DAY, Disp: 90 tablet, Rfl: 3 cetirizine (ZyrTEC) 10 mg tablet, Take 10 mg by mouth in the morning., Disp: , Rfl: dapagliflozin propanediol (Farxiga) 10 mg, Take 10 mg by mouth., Disp: , Rfl: diclofenac (Cataflam) 50 mg tablet, Take 50 mg by mouth in the morning and 50 mg at noon and 50 mg in the evening., Disp: , Rfl: DULoxetine (Cymbalta) [address] capsule, Take by mouth in the morning., Disp: , Rfl: ferrous sulfate 325 (65 Fe) MG tablet, Take 1 tablet by mouth in the morning., Disp: , Rfl: fexofenadine (Luz) 180 mg tablet, fexofenadine 180 mg tablet TAKE 1 TABLET BY MOUTH EVERY DAY, Disp: , Rfl: furosemide (Lasix) 40 mg tablet, Take 1 tablet (40 mg) by mouth in the morning., Disp: 90 tablet, Rfl: 3 gabapentin (Neurontin) 300 mg capsule, Take 600 mg by mouth in the morning and at bedtime., Disp: , Rfl: metFORMIN (Glucophage) 1,000 mg tablet, Take 1,000 mg by mouth in the morning and at bedtime., Disp: , Rfl: methocarbamol (Robaxin) 500 mg tablet, Take 500 mg by mouth in the morning and at bedtime., Disp: , Rfl: metoprolol succinate XL (Toprol-XL) 25 mg 24 hr tablet, Take 1 tablet (25 mg) by mouth in the morning. In addition to 50mg tablets daily = 75mg daily, Disp: 90 tablet, Rfl: 3 metoprolol succinate XL (Toprol-XL) 50 mg 24 hr tablet, TAKE 1 TABLET BY MOUTH EVERY DAY IN THE MORNING, Disp: 90 tablet, Rfl: 3 NovoLOG Mix 70-30FlexPen U-100 100 unit/mL (70-30) injection, INJECT 70 UNITS SUBCUTANEOUSLY TWICE A DAY, Disp: , Rfl: pregabalin (Lyrica) 100 mg capsule, Take 100 mg by mouth every 8 (eight) hours., Disp: , Rfl: sucralfate (Carafate) 1 gram tablet, Take 1 g by mouth in the morning, noon, at afternoon, at bedtime,., Disp: , Rfl: Xarelto 10 mg tablet, Take 10 mg by mouth once daily as directed., Disp: , Rfl: aspirin 81 mg chewable tablet, Chew 1 tablet (81 mg) in the morning., Disp: 90 tablet, Rfl: 3 Recent Labs No visits with results within 6 Month(s) from this visit. Latest known visit with results is: Legacy Encounter on 04/22/2020 Component Date Value Ventricular Rate 04/22/2020 96 Atrial Rate 04/22/2020 96 GA Interval 04/22/2020 150 QRS DURATION 04/22/2020 80 QT Interval 04/22/2020 334 QTC CALCULATION(BAZETT) 04/22/2020 421 P [place] 04/22/2020 35 R-[place]o 04/22/2020 15 T Wave [place] 04/22/2020 43 Diagnosis 04/22/2020 Value:Normal sinus rhythm Normal ECG When compared with ECG of 15-JAN-2019 11:48, No significant change was found Confirmed by Bebo Victoria (80) on 04/22/2020 4:35:25 PM Blood testing 09/15/2023: Potassium 4.5, BUN 16, creatinine 1.29, EGFR 43, hemoglobin A1c 8, LFTs within normal limits, triglycerides 238, cholesterol 93, LDL 17, HDL 29. Blood testing 07/07/2023: Hemoglobin 14.4, platelets 169, BUN 21, creatinine 1.18, potassium 4.3, LFTs normal, creatinine clearance 66. Blood testing 10/06/2022: potassium 3.7, BUN 12, creatinine 1.07, EGFR 53, LFTs within normal limits except for mild elevation of alkaline phosphatase, triglycerides 194, LDL 21, cholesterol 89, HDL 30. Blood testing 04/22/2022: Hemoglobin 7.3, platelets 318, potassium 4.4, BUN 15, creatinine 0.89. BMP 2019: BUN 15, creatinine 0.86, potassium 5.1 CBC 2019: Within normal limits. Lipid profile 04/17/2019: Cholesterol 171, triglycerides 307, HDL 30, LDL 80. Imaging and other tests Stress test 09/19/2023: CONCLUSION: 1. No acute or reversible ischemia. 2. Small fixed perfusion defect versus attenuation artifact at the apex. 3. Normal left ventricle volume, wall motion, and ejection fraction. ECG does not show ischemic changes with Lexiscan. Echocardiogram 09/15/2023: CONCLUSION: 1. Global left ventricular systolic function is normal; visually estimated ejection fraction is 55 to 60% 2. Normal right ventricular size and systolic function 3. Normal diastolic function 4. The left atrium is normal in size 5. Valves are poorly seen; no significant valvular abnormalities 6. Anterior free space; trivial effusion versus fat pad [place] 09/12/2023: [place]: 0.79, 1.06 TBI: 0.45, 1.14 The [place] demonstrates mild arterial disease on the right, normal on the left The TBI demonstrates moderate ischemia on the right, normal on the left Prior testing: Due to pulsatile tinnitus and I checked MRI and MRA of brain on 07/26/2020 and those were nonrevealing of any aneurysm. Arterial duplex ultrasound right leg 06/03/2020: Patent superficial femoral artery stent. Reversal of flow in the proximal to mid posterior tibial artery. Lower extremity angiography and intervention 04/22/2020: 1. Patent aortoiliac arterial system bilaterally. 2. A 40%-50% mid left SFA stenosis and occluded left posterior tibial artery. 3. Diffuse stenosis in the right mid superficial femoral artery reaching up to 95% stenosis, treated by balloon angioplasty, and a Zilver PTX drug-eluting stent, occluded right posterior tibial artery with filling at the level of the foot by collateral from the peroneal artery, occluded dorsalis pedis artery. EKG 01/15/2019: Normal. PFTs 12/01/2018: Moderate diffusion impairment. Echocardiogram 04/05/2019: Global left ventricular systolic function is normal. No regional wall motion abnormality. Normal diastolic function. Normal right ventricular systolic function. Unable to assess right sided pressures due to lack of measurable tricuspid regurgitation. No valvular stenosis or significant insuffiency. Rest/exercise ABIs 07/02/2019: Resting ABIs: Right 0.83 [femoral-popliteal disease]; left 0.96. Post 7.41 minutes exercise ABIs: Right 0.68; left 0.66. Assessment/Plan Diagnoses and all orders for this visit: Coronary artery disease involving nuiqsut coronary artery of nuiqsut heart without angina pectoris - Basic metabolic panel; Future - CBC and differential; Future PAD (peripheral artery disease) ([facility]/HCC) - Case Request Field Research Assistant: Lower extremity angiogram - Basic metabolic panel; Future - CBC and differential; Future - aspirin 81 mg chewable tablet; Chew 1 tablet (81 mg) in the morning. History of deep vein thrombosis Mixed hyperlipidemia Morbid obesity ([facility]/HCC) Edema of lower extremity Claudication ([facility]) - Case Request Field Research Assistant: Lower extremity angiogram CAD: She has moderate coronary artery disease by cath 2018 that we are managing medically. Her echocardiogram March 2019 was within normal limits with normal ventricular and valvular functions. It could not assess the right sided pressures. A stress test September 19, 2023 showed no ischemia. Echocardiogram September 15, 2023 showed normal ventricular function and no significant valvular dysfunction. PAD: She is s/p right SFA stenting with a drug-eluting stent. Her right lower extremity arterial duplex ultrasound 05/2020 showed patent stent. Given prior GI bleeding, I had stopped Plavix completely. She is on Xarelto 10 mg daily which she takes for her prior history of DVT and factor V Leyden. She has tolerated well. She has been having symptoms of claudication. Her ABIs showed reduced perfusion in the right leg. In the past she has failed Pletal. She might have restenosis of the SFA stent. I discussed options for management. I will proceed with lower extremity angiography with possible right lower extremity intervention. Access site will be left groin. I asked her to start aspirin 81 mg daily. I explained the procedure in detail along with risks and benefits including risk of limb loss and contrast nephropathy and potential need for surgical intervention. She understands and agrees to proceed. At this time I will continue current furosemide 40 mg daily. Follow-up after the procedure. No follow-ups on file. Malik Ni MD OFFICE VISIT Observed: 09/21/2023 11:15 AM Status: COMPLETED Source: [facility] [id number] Elmer Meneses F Date Provider Department Center 09/21/2023MALIK VIEIRA [facility] Family History Problem Relation Age of Onset Diabetes Mother Heart attack Mother Other Mother Coronary artery disease Mother Diabetes Father Coronary artery disease Father Heart attack Maternal Grandfather Family Status - Relation Status Age at Mother Father Maternal Grandfather Level of Service:28634 [place] OFFICE/OUTPATIENT ESTABLISHED HIGH MDM 40 MIN ALLERGIES DATE TYPE / CODE NAME / CODE REACTION SEVERITY SOURCE Drug Class/083808439(SNO MED CT) NO KNOWN ALLERGIES [facility] Drug Class/524841081(SNO MED CT) NO KNOWN ALLERGIES [facility] SYSTEMIC/[id number]( SNOMED CT) NO KNOWN ALLERGIES [facility] ENCOUNTERS ADMIT/DISCHARGE ACCOUNT NUMBER ADMITTING ENCOUNTER CLASS LOCATION SOURCE 08/21/2024 [id number] [facility] 07/17/2024/07/18/19 [id number] Ambulatory Building:[facility] 07/03/2024/07/04/19 25 [id number] Ambulatory Building:[facility] 06/13/2024/06/14/19 25 [id number] Ambulatory Building:[facility] 06/05/2024/06/06/19 25 [id number] Ambulatory Building:[facility] 05/22/2024/05/23/19 25 [id number] Ambulatory Building:[facility] 05/08/2024/05/09/19 25 [id number] Inpatient Encounter Building:PFM _PERIOP [facility] 05/08/2024/05/09/19 25 [id number] Inpatient Encounter Building:PFM _PERIOP [facility] 05/08/2024/05/09/19 25 [id number] MALIK BEAL JR Inpatient Encounter Building:PFM _PERIOPRoom: POOLBed: POOL [facility] 05/03/2024/05/04/19 25 [id number] Ambulatory Building:PFM _XR [facility] 05/03/2024/05/04/19 25 [id number] Ambulatory Building:PFM _PAT [facility] 05/03/2024/05/04/19 [id number] Ambulatory Building:PF _LAB [facility] 04/30/2024/05/01/19 25 [id number] Ambulatory Building:PF _LAB [facility] 04/30/2024/05/01/19 [id number] Ambulatory Building:O [facility] 04/27/2024/04/28/19 25 [id number] Ambulatory Building:B [facility] 04/17/2024/04/17/19 [id number] Ambulatory Building:[facility] 04/06/2024/04/06/19 25 [id number] Ambulatory Building:NOM S ORTHO [facility] 03/09/2024/03/09/19 25 [id number] Ambulatory Building:NOM S [facility] 02/27/2024/02/26/19 25 [id number] Ambulatory Building:[facility] 02/27/2024/02/26/19 25 [id number] Ambulatory Building:[facility] 02/21/2024/02/21/20 24 [id number] Ambulatory Building:R [facility] 02/09/2024/02/09/20 24 [id number] Ambulatory Building:R [facility] 01/30/2024/01/30/20 24 [id number] Ambulatory Building:[facility] 01/25/2024/01/25/20 24 [id number] Ambulatory Building:BSR NEURO [facility] 01/16/2024/01/16/20 24 [id number] Ambulatory Building:[facility] 12/20/2023/12/20/19 24 [id number] Ambulatory Building:[facility] 12/14/2023/12/14/19 24 [id number] Ambulatory Building:BSR NEURO [facility] 11/22/2023/11/22/19 24 [id number] Ambulatory Building:[facility] 10/20/2023/10/20/19 24 [id number] Ambulatory Building:[facility] 10/19/2023/10/19/19 24 [id number] JAMAREZEQUIELMALIK Ambulatory Buildin 0Room: [facility] POOLBed: 2440 [facility] 09/21/2023/09/21/19 [id number] Ambulatory Building:B [facility] PAYERS ENCOUNTER GUARANTOR PAYER SUBSCRIBER SOURCE 08/21/2024 Primary Insurance:[employer] MEDICARE PPOPolicy Number: [id number] Date:[id number] Name:Radha SANCHEZ: [id number] [address] [address] [facility] 07/17/2024 ELMER POSTB: [address], [place] [address]Kcd: (HP) Primary Insurance:[employer] MEDICARE ADVANTAGEPolicy Number: [id number] Date:2022-02-21 ELMER POSTB: [id number] [address] [place] [address] [facility] 07/03/2024 ELMER POSTB: [address] [address]Gdh: (HP) Primary Insurance:[employer] MEDICARE ADVANTAGEPolicy Number: [id number] Date:2022-02-21 ELMER POSTB: [id number] [address] [address] [facility] 06/13/2024 ELMER POSTB: [address] [address]Gqm: (HP) Primary Insurance:[employer] MEDICARE ADVANTAGEPolicy Number: [id number] Date:2022-02-21 ELMER POSTB: [id number] [address] [address] [facility] 06/05/2024 ELMER Gold RHONDADOB: [address] [address]Xcj: (HP) Primary Insurance:[employer] MEDICARE ADVANTAGEPolicy Number: [id number] Date:2022-02-21 ELMER Gold RHONDADOB: [id number] [address] [address] [facility] 05/22/2024 ELMER M RHONDADOB: [address] [address]Azx: (HP) Primary Insurance:[employer] MEDICARE ADVANTAGEPolicy Number: [id number] Date:2022-02-21 ELMER Gold SINCEREB: [id number] [address], [facility] [facility] 05/08/2024 ELMER Gold SINCEREB: [address], [place] [address]Wyk: (HP) Primary Insurance:[employer] [place] - [place] RESIDENTPolicy Number: [id number] Date:2023-06-22 ELMER Gold SINCEREB: [id number], [place] [address] [facility] 05/08/2024 ELMER Gold RHONDADOB: [address], [place] [address]Xvg: (HP) Primary Insurance:[employer] [place] - [place] RES[place]Policy Number: [id number] Date:2023-06-22 ELMER Gold SINCEREB: [id number], [place] [address] [facility] 05/08/2024 ELMER M SINCEREB: [address], [place] [address]Thy: (HP) Primary Insurance:[employer] [place] - [place] RES[place]Policy Number: [id number] Date:2023-06-22 ELMER Gold YECLAULEYDOB: [id number], [place] [address] [facility] 05/03/2024 ELMER Gold YECLAULEYDOB: [address], [place] [address]Shj: (HP) Primary Insurance:[employer] [place] - [place] RES[place]Policy Number: [id number] Date:2023-06-22 ELMER Gold YEBOBODOB: [id number], [place] [address] [facility] 05/03/2024 ELMER Gold YECLAULEYDOB: [address], [place] [address]Yyw: (HP) Primary Insurance:[employer] [place] - [place] RES[place]Policy Number: [id number] Date:2023-06-22 ELMER Gold RHONDADOB: [id number], [place] [address] [facility] 05/03/2024 ELMER Gold YECLAULEYDOB: [address], [place] [address]Vgt: (HP) Primary Insurance:[employer] [place] - [place] RES[place]Policy Number: [id number] Date:2023-06-22 ELMER Gold YECLAULEYDOB: [id number], [place] [address] [facility] 04/30/2024 ELMER Gold YECLAULEYDOB: [address], [place] [address]Gmn: (HP) Primary Insurance:[employer] [place] - [place] RES[place]Policy Number: [id number] Date:2023-06-22 ELMER LEWISRAFB: [id number], [place] [address] [facility] 04/30/2024 ELMER MENESESB: [address], [place] [address]Emq: (HP) Primary Insurance:[employer] MEDICARE ADVANTAGEPolicy Number: [id number] Date:2022-02-21 ELMER MENESESB: [id number], [place] [address] [facility] 04/27/2024 Primary Insurance:HUMAN MEDICARE ADVANTAGEPolicy Number: [id number] Date:2022-02-21 ELMER MENESESB: [id number], [place] [address] [facility] 04/17/2024 ELMER Gold SINCEREB: [address], [place] [address]Xfn: (HP) Primary Insurance:HUMAN MEDICARE ADVANTAGEPolicy Number: [id number] Date:2022-02-21 ELMER MENESESB: [id number] [address], [place] [address] [facility] 04/06/2024 ELMER Gold SINCEREB: [address], [place] [address]Hhg: (HP) Primary Insurance:HUMAN MEDICARE ADVANTAGEPolicy Number: [id number] Date:2022-02-21 ELMER Gold SINCEREB: [id number] [address], [place] [address] [facility] 03/09/2024 ELMER Gold SINCEREB: [address], [place] [address]Yac: (HP) Primary Insurance:HUMAN MEDICARE ADVANTAGEPolicy Number: [id number] Date:2022-02-21 ELMER Gold SINCEREB: [id number] [address] [address] [facility] 02/27/2024 ELMER ELLIOTTYOAVB: [address] [address]Ypl: (HP) Primary Insurance:[facility] MEDICARE ADVANTAGEPolicy Number: [id number] Date:2022-02-21 ELMER Gold SINCEREB: [id number] [address] [address] [facility] 02/27/2024 ELMER M SINCEREB: [address] [address]Scu: (HP) Primary Insurance:[facility] MEDICARE ADVANTAGEPolicy Number: [id number] Date:2022-02-21 ELMER Gold SINCEREB: [id number] [address] [address] [facility] 02/21/2024 ELMER Gold SINCEREB: [address] [address]Seq: (HP) Primary Insurance:[facility] MEDICARE ADVANTAGEPolicy Number: [id number] Date:2022-02-21 ELMER Gold SINCEREB: [id number] [address] [address] [facility] 02/09/2024 ELMER POSTB: [address] [address]Znf: (HP) Primary Insurance:[facility] MEDICARE ADVANTAGEPolicy Number: [id number] Date:2022-02-21 ELMER M SINCEREB: [id number] [address] [address] [facility] 01/30/2024 ELMER M RHONDADOB: [address] [address]Vxe: (HP) Primary Insurance:HUMAN MEDICARE ADVANTAGEPolicy Number: [id number] Date:2022-02-21 ELMER Gold RHONDADOB: [id number] [address] [address] [facility] 01/25/2024 ELMER Asif RHONDADOB: [address] [address]Set: (HP) Primary Insurance:HUMAN MEDICARE ADVANTAGEPolicy Number: [id number] Date:2022-02-21 ELMER M SINCEREB: [id number] [address] [address] [facility] 01/16/2024 ELMER M RHONDADOB: [address] [address]Ohz: (HP) Primary Insurance:HUMAN MEDICARE ADVANTAGEPolicy Number: [id number] Date:2022-02-21 ELMER Gold SINCEREB: [id number] [address], [facility] [facility] 12/20/2023 ELMER Gold JOSHUALEYDOB: [address] [address]Opv: (HP) Primary Insurance:HUMAN MEDICARE ADVANTAGEPolicy Number: [id number] Date:2022-02-21 ELMER M RHONDADOB: [id number] [address] [address] [facility] 12/14/2023 ELMER POSTB: [address], [place] [address]Ipw: (HP) Primary Insurance:[employer] MEDICARE ADVANTAGEPolicy Number: [id number] Date:2022-02-21 ELMER POSTB: [id number] [address], [place] [address] [facility] 11/22/2023 ELMER POSTB: [address], [place] [address]Ngg: (HP) Primary Insurance:[employer] MEDICARE ADVANTAGEPolicy Number: [id number] Date:2022-02-21 ELMER POSTB: [id number] [address], [place] [address] [facility] 10/20/2023 ELMER POSTB: [address], [place] [address]Qjb: (HP) Primary Insurance:HU[employer]NA MEDICARE ADVANTAGEPolicy Number: [id number] Date:2022-02-21 ELMER POSTB: [id number] [address], [facility] [facility] 10/19/2023 Primary Insurance:HU[employer]NA MEDICARE ADVANTAGEPolicy Number: [id number] Date:2022-02-21 ELMER POSTB: [id number] [facility] [address], [place] [address] [facility] 09/21/2023 Primary Insurance:[employer] MEDICARE ADVANTAGEPolicy Number: [id number] Date:2022-02-21 ELMER POSTB: [id number] [facility] [address], [place] [address] [facility]
--- OUTSIDE RECORDS SUMMARY | 2024-08-21 09:48 | XMS_ITS | Encounter Summary ---
Author Organization [facility] Address [address] [place] [address] Care Team Providers Care Importer Exporter Name Role Phone Deondre Roth DO, Charles P Primary Care Provider + Source Comments In the event this information is protected by the Federal Confidentiality of Alcohol and Drug AbusePatient Records regulations: The Federal rules restrict any use of the information to criminally investigate or prosecute any alcohol or drug abuse patient.[facility] Reason for Referral * MRI/CT (Routine) - Closed Specialty Diagnoses / Procedures Referred By April valdez Referred To Contact CT IMAGING Diagnoses 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 mass Procedures CT ABDOMEN W IVCON CT ABDOMEN W/CONTRAST Uri Pickens MD [address] [place] [address] Phone: tel: fax: [place] [phone] Referral ID Status Reason Start Date Expiration Date V isits Requested Visits Authorized [id number] Closed Auto-Generate d Referral 08/21/2024 10/20/2024 1 1 Reason for Visit * Reason Comments Radiology CT * MRI/CT (Routine) - Closed Specialty Diagnoses / Procedures Referred By Contac t Referred To Contact CT IMAGING Diagnoses 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 mass Procedures CT ABDOMEN W IVCON CT ABDOMEN W/CONTRAST Uri Pickens MD [address] [place] [address] Phone: tel: fax: [place] [phone] Referral ID Status Reason Start Date Expiration Date V isits Requested Visits Authorized [id number] Closed Auto-Generate d Referral 08/21/2024 10/20/2024 1 1 Encounter Details Date Type Department Care Team (Latest Contact Info) Description 08/21/2024 9:48 AM EDT - 08/21/2024 11:59 PM EDT Hospital Encounter Radiology Pet CT [address] [address] Other specified disorders of kidney and ureter [N28.89] Discharge Disposition: Home Social History Tobacco Use Types Packs/Day Years Used Date Smoking Tobacco: Every Day Cigarettes Smokeless Tobacco: Never Alcohol Use Standard Drinks/Week Comments Not Currently 0 (1 standard drink = 0.6 oz pur e alcohol) Area Deprivation Index Answer Date [place] rded National Score (1-100), lower number is lower ri sk 63 10/15/2022 State Score (1-10), lower number is lower risk 4 10/15/2022 Data from: https://www.neighborhoodatlas.medicine.[facility].edu/. Last address used for calculation [address] [place] [address] 10/15/2022 Comments Unknown Sex and Gender Information Value Date Recorded Sex Assigned at Female 07/30/2024 2:43 PM EDT Legal Sex Female 1:44 PM EDT Gender Identity Female 07/30/2024 2:43 PM EDT Sexual Orientation Not on file documented as of this encounter Medications at Time of Discharge DULoxetine (CYMBALTA) 60 mg capsule duloxetine 60 mg capsule,delayed release TAKE 1 CAPSULE BY MOUTH EVERY DAY 07/27/2021 atorvastatin (LIPITOR) 80 mg tablet Take 80 mg by mouth once daily. 07/26/2021 fexofenadine (CARLOTTA) 180 mg tablet fexofenadine 180 mg tablet TAKE 1 TABLET BY MOUTH EVERY DAY gabapentin (NEURONTIN) 300 mg capsule Take 600 mg by mouth twice daily. 08/25/2021 MV with Qwu-Aqojkoji-Zpe ein (CENTRUM SILVER) 0.4 mg-300 mcg- 250 mcg tab Take by mouth. 07/27/2021 insulin 75/25 lispro protamine/lispro units/mL (HUMALOG MIX 75-25,U-100,INSU LN) 100 units/mL susp as directed. 07/27/2021 HYDROcodone-acet aminophen (NORCO) 5-325 mg per tablet hydrocodone 5 mg-acetaminophen 325 mg tablet TAKE 1 TO 2 TABLETS BY MOUTH EVERY DAY AT BEDTIME NEEDED fdyuprai-ldn-tav n-FA-lutein (CENTRUM SILVER WOMEN) 8 mg iron-400 mcg-300 mcg tab furosemide (LASIX) 40 mg tablet furosemide 40 mg tablet TAKE 1 AND 1/2 TABLETS BY MOUTH DAILY 07/27/2021 clopidogrel (PLAVIX) 75 mg tablet clopidogrel 75 mg tablet TAKE 1 TABLET BY MOUTH EVERY DAY 07/27/2021 metoprolol succinate ER (TOPROL XL) 25 mg 24 hr tablet metoprolol succinate ER 25 mg tablet,extended release 24 hr TAKE 1 TABLET BY MOUTH DAILY (ALONG WITH THE 50MG TABLET FOR 75 MG TOTAL DAILY) 07/27/2021 metoprolol succinate ER (TOPROL XL) 50 mg 24 hr tablet metoprolol succinate ER 50 mg tablet,extended release 24 hr TAKE 1 TABLET BY MOUTH EVERY DAY 07/27/2021 rivaroxaban (XARELTO) 10 mg tablet Xarelto 10 mg tablet 07/27/2021 metFORMIN (GLUCOPHAGE) 1,000 mg tablet Take 1,000 mg by mouth twice daily. 09/13/2021 cholecalciferol (VITAMIN D3) 5,000 unit tab Vitamin D3 Refills(s) 0 Start Date: 07/27/21 Status: Ordered 07/27/2021 HYDROcodone-Acet aminophen 5-300 mg tab Take 1 tablet by mouth every 8 hours as needed for pain. methocarbamol (ROBAXIN) 500 mg tablet Take 500 mg by mouth four times daily. esomeprazole mag/glycerin (ESOMEP-EZS ORAL) Take by mouth. documented as of this encounter Progress Notes * Christel Hua, RT(R) - 08/21/2024 10:15 AM EDT Radiology Service Progress Note PATIENT NAME: Melany Meneses DATE OF SERVICE: August 21, 2024 TIME: 10:36 AM PATIENT IDENTITY VERIFICATION COMPLETED USING TWO (2) IDENTIFIERS: Name and Date of confirmedby patient verbally. FALL SCREENING: Has the patient had 2 falls in the last year or 1 fall with injury or currently using an Ambulatory Assistive Device (Walker, Cane, Wheelchair, Crutches, etc.)? No PATIENT GENDER DATA: Assigned female at . status: : No status:NO. PATIENT RELEVANT IMPLANT DATA REVIEWED: Not Applicable PATIENT PRESENTS WITH AN IMPLANTABLE OR ATTACHED COAL DUMPING EQUIPMENT OPERATOR: No RADIOLOGY DEPARTMENT: CT; Exam(s) Completed: Chest Abdomen Pelvis PERIPHERAL IV DATA: Site assessment: Clean,Dry and Intact, Site disposition Discontinued SIGNED BY: RT Luan(R) August 21, 2024 10:36 AM * Joi Greene RN - 08/21/2024 10:15 AM EDT Radiology Service Progress Note DATE OF SERVICE: [...] Assigned female at . status: : No status:NO. ALLERGIES: Reviewed and unchanged CONTRAST ALLERGY: No [...] Value Ref Range Status 08/21/2024 60 >=60 mL/min/1.73m Final Comment: Estimated Glomerular Filtration Rate (eGFR) is calculated using the 2020 CKD-EPI creatinine equation. This equation utilizes serum creatinine, sex, and age as parameters. The creatinine assay has traceable calibration to isotope dilution- mass spectrometry. Refer to KDIGO guidelines for clinical interpretation. In patients with unstable renal function, e.g. those with acute kidney injury, the eGFRmay not accurately reflect actual GFR. P.O.C.T. RESULTS: POC done: Yes, See Lab Tab August 21, 2024 TREATMENT: No Hydration needed. IV SITE: Ambulatory: A peripheral IV was started in the Right forearm with a Angio cath: 20 gauge. IV SITE APPEARANCE: Clean,Dry and Intact SIGNATURE: Joi Greene RN PATIENT NAME: Melany Meneses DATE: August 21, 2024 TIME: 11:58 AM documented in this encounter Plan of Treatment Upcoming Encounters Date Type Department Care Team (Latest Contact Info) Description 08/28/2024 2:30 PM EDT [facility]rology [address] [address] Uri Pickens MD [address] [address] Virtual visit please tests results documented as of this encounter Procedures Procedure Name Priority Date/Time Associated Diagnosis Comments CT ABDOMEN W IVCON Routine 08/21/2024 11 :14 AM EDT 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 mass CREATININE BLD Routine 08/21/2024 9:49 AM EDT Renal mass documented in this encounter Results * CT ABDOMEN W IVCON (08/21/2024 11:14 AM EDT) Anatomical Region Laterality Modality Abdomen Nuclear Medicine , Nuclear Medicine 08/21/2024 11:1 4 AM EDT Impressions 08/21/2024 12:02 PM EDT IMPRESSION: 1. Since 05/17/2023, mild increase in [...] any questions regarding this interpretation, please call [phone]. If you are unable to reach us at the number above, please feel free [facility] at [phone]. Narrative 08/21/2024 12:02 PM EDT * * *Final Report* * * DATE OF EXAM: Aug 21 2024 11:14AM [facility] 0533 - CT ABDOMEN W IVCON [...] thorax: Unremarkable. Localizer images: No additional findings. Procedure Note Provider, [facility] [place] - 08/21/2024 * * *Final Report* * * DATE OF EXAM: Aug 21 2024 11:14AM [facility] 0533 - CT ABDOMEN W IVCON [...] thorax: Unremarkable. Localizer images: No additional findings. IMPRESSION IMPRESSION: 1. Since 05/17/2023, mild increase in [...] any questions regarding this interpretation, please call [phone]. If you are unable to reach us at the number above, please feel free to contact [facility] eRadiology at [phone]. us Uri Pickens MD CT-PAMA Final Result * (ABNORMAL) CREATININE BLD (08/21/2024 9:49 AM EDT) Creatinine 1.08(H) 0.58 - 0.96 mg/dL 08/21/2024 10:30 AM EDT [facility] Estimated Glomerular Filtration Rate 60 >=60 mL/min/1.7 3m 08/21/2024 10:30 AM EDT [facility] Comment:Estimated Glomerular Filtration Rate (eGFR) is calculated using the 2020 CKD-EPI creatinine equation. This equation utilizes serum creatinine, sex, and age as parameters. The creatinine assay has traceable calibration to isotope dilution- mass spectrometry. Refer to KDIGO guidelines for clinical interpretation. In patients with unstable renal function, e.g. those with acute kidney injury, the eGFR may not accurately reflect actual GFR. 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
--- OUTSIDE RECORDS SUMMARY | 2024-08-27 12:55 | XMS_ITS | Encounter Summary ---
Author Organization [facility] Address [address] [place] [address] Care Team Providers Care Tong Carrier Name Role Phone Ludin Blanchard MD Primary Care Provider [phone] Jenny Borrego TELEPRINTER INSTALLER Unavailable [phone] Ludin Blanchard MD Primary Care Provider [phone] Encounter Details Date Type Department Care Team (Late st Contact Info) Description 02/20/2023 Abstract [facility] [address] [place] [phone] Jenny Borrego, [place] [address] [place] [address] Social History Tobacco Use Types Packs/Day Years Used Date Smoking Tobacco: Every Day Cigarettes 1 30 Smokeless Tobacco: Never Tobacco Cessation:Ready to Q uit: No; Counseling Given: Not Answered Comments:11-20 cigarettes/day Alcohol Use Standard Drinks/Week Comments Not Currently 0 (1 standard drink = 0.6 oz pure alcohol) Caffeine: coffee,soda/pop: 10cups daily Comments Unknown Sex and Gender Information Value Date Recorded Sex Assigned at Not on file Legal Sex Female 7:05 PM EDT Gender Identity Not on file Sexual Orientation Not on file documented as of this encounter Plan of Treatment Upcoming Encounters Date Type Department Care Team (Late Contact Info) Description 08/28/2024 10:30 AM EDT Office Visit [facility] [address] [place] [address] Jr. Elvis Beal C, DO [address] [place] [address] 10/17/2024 1:00 PM EDT Office Visit [facility] [address] [place] [address] Jenny Borrego, ZELAL[place] [address] [place] [phone] 04/18/2025 11:00 AM EST Office Visit [facility] [address] [place] [phone] Jenny Borrego NP [address] [place] [address] documented as of this encounter Visit Diagnoses Not on filedocumented in this encounter Care Teams Tong Carrier Relationship Specialty Start Date End Date Ludin Blanchard MD PCP - General Family Medicine 10/06/22 04/27/23 Ludin Blanchard MD [address] [place] [address] PCP - General Family Medicine 04/28/23 Jenny Borrego NP [address] [place] [phone] Nurse Practitioner Family Medicine 12/27/22 documented as of this encounter
--- OUTSIDE RECORDS SUMMARY | 2024-08-27 12:55 | XMS_ITS | Encounter Summary ---
Author Organization [facility] Address [address] [place] [address] Care Team Providers Care Second Hand Paper Machine Name Role Phone Deondre Roth, Dawit [place] Primary Care Provider + Source Comments In the event this information is protected by the Federal Confidentiality of Alcohol and Drug AbusePatient Records regulations: The Federal rules restrict any use of the information to criminally investigate or prosecute any alcohol or drug abuse patient.[facility] Encounter Details Date Type Department Care Team (Latest Contact Info) Description 08/26/2024 Travel Social History Tobacco Use Types Packs/Day Years [...] is lower risk 4 10/15/2022 Data from: https://www.neighborhoodatlas.medicine.[facility].edu/. Last address used for calculation [address] [facility] 10/15/2022 Comments Unknown Sex and Gender Information Value Date Recorded Sex Assigned at Female 07/30/2024 2:43 PM EDT Legal Sex Female 1:44 PM EDT Gender Identity Female 07/30/2024 2:43 PM EDT Sexual Orientation Not on file documented as of this encounter Plan of Treatment Upcoming Encounters Date Type Department Care Team (Latest Contact Info) Description 08/28/2024 2:30 PM EDT [facility] Urology [address] [address] Uri Pickens MD [address] [address] Virtual visit please tests results documented as of this encounter Visit Diagnoses Not on filedocumented in this encounter Care Teams Second Hand Paper Machine Relationship Specialty Start Date End Date Dawit Mendosa Sr., DO PCP - General Family Medicine 10/24/14 documented as of this encounter
--- OUTSIDE RECORDS SUMMARY | 2024-08-27 12:55 | XMS_ITS | Encounter Summary ---
Author Organization [facility] Address [address] [place] [address] Care Team Providers Care Cell Builder Name Role Phone Jenny Borrego [employer] LAW CLERK Unavailable [phone] Ludin Blanchard MD Primary Care Provider [phone] Encounter Details Date Type Department Care Team (Late st Contact Info) Description 04/30/2024 Orders Only [facility] [address] [place] [address] Jenny Borrego, ZELALEM [address] [place] [phone] Social History Tobacco Use Types Packs/Day Years Used Date Smoking Tobacco: Every Day Cigarettes 1 30 Smokeless Tobacco: Never Comments:11-20 cigarettes/da y Alcohol Use Standard Drinks/Week Comments Not Currently 0 (1 standard drink = 0.6 oz pure alcohol) Caffeine: coffee,soda/pop: 10cups daily Humiliation, Afraid, Rape, and Kick questionnair e Answer Date Recorded Within the last year, have y ou been afraid of your partner or ex-partner? No 03/24/2023 Within the last year, have y ou been humiliated or emotionally abused in other ways by your partner or ex-partner? No Within the last year, have y ou been kicked, hit, slapped, or otherwise physically hurt by your partner or ex-partner? No 03/24/2023 Within the last year, have y ou been raped or forced to have any kind of sexual activity by your partner or ex-partner? No 03/24/2023 Social Connection and Isolat ion Panel [NHANES] Answer Date Recorded In a typical week, how many times do you talk on the phone with family, friends, or neighbors? More than three times a week 03/24/2023 How often do you get togethe r with friends or relatives? Three times a week 03/24/2023 How often do you attend chur or jewish services? Never 03/24/2023 Do you belong to any clubs o r organizations such as yarsanism groups, unions, fraternal or athletic groups, or school groups? No 03/24/2023 How often do you attend meet ings of the clubs or organizations you belong to? Never 03/24/2023 Are you , , di vorced, , never , or living with a partner? 03/24/2023 AUDIT-C Answer Date Recorded Q1: How often do you have a drink containing alcohol? Never 03/24/2023 Q2: How many drinks containi ng alcohol do you have on a typical day when you are drinking? Patient does not drink Q3: How often do you have si x or more drinks on one occasion? Never 03/24/2023 Overall Financial Resource Strain (CARDIA) Answe r Date Recorded How hard is it for you to pa y for the very basics like food, housing, medical care, and heating? Not very hard 03/24/2023 PHQ-2 Answer Date Recorded Patient Health Questionnaire-2 Score 1 04/17/2024 [facility] - Occupational Stress Questionnaire Answer Date Recorded Do you feel stress - tense, restless, nervous, or anxious, or unable to sleep at night because your mind is troubled all the time - these days? Very much 03/24/2023 Exercise Vital Sign Answer Date Recorde d On average, how many days pe r week do you engage in moderate to strenuous exercise (like a brisk walk)? 0 days 03/24/2023 On average, how many minutes do you engage in exercise at this level? 0 min 03/24/2023 Hunger Vital Sign Answer Date Recorded Within the past 12 months, y ou worried that your food would run out before you got the money to buy more. Never true 03/24/19 24 Within the past 12 months, t he food you bought just didn't last and you didn't have money to get more. Never true 03/24/2023 PRAPARE - Transportation Answer Date Re corded In the past 12 months, has l ack of transportation kept you from medical appointments or from getting medications? No 02/2023 In the past 12 months, has l ack of transportation kept you from meetings, work, or from getting things needed for daily living? No 03/24/2023 Housing Stability Vital Sign Answer Rj e Recorded In the last 12 months, was t here a time when you were not able to pay the mortgage or rent on time? No 03/24/2023 In the last 12 months, how many places have you lived? 1 03/24/2023 In the last 12 months, was t here a time when you did not have a steady place to sleep or slept in a halfway (including now)? No 03/24/2023 Comments Unknown Sex and Gender Information Value Date Recorded Sex Assigned at Not on file Legal Sex Female 7:05 PM EDT Gender Identity Not on file Sexual Orientation Not on file documented as of this encounter Plan of Treatment Upcoming Encounters Date Type Department Care Team (Late st Contact Info) Description 08/28/2024 10:30 AM EDT Office Visit [facility] [address] [place] [address] Jr. Elvis Beal, DO [address] [place] [address] 10/17/2024 1:00 PM EDT Office Visit [facility] [address] [place] [phone] Jenny Borrego NP [address] [place] [address] 04/18/2025 11:00 AM EST Office Visit [facility] [address] [place] [phone] Jenny Borrego NP [address] [place] [address] documented as of this encounter Procedures Procedure Name Priority Date/Time Associated Diagnosis Comments ECG 12-LEAD Routine 04/30/2024 11:07 AM EDT documented in this encounter Results * ECG 12 lead (04/30/2024 11:07 AM EDT) us Jenny Borrego NP ECG ORDERABLES Final Result documented in this encounter Visit Diagnoses Not on filedocumented in this encounter Additional Health Concerns Assessment Noted Time PHQ-9 Depression Total Score: 4 04/17/19 25 1:00 PM EST documented as of this encounter Care Teams Cell Builder Relationship Specialty Start Date End Date Ludin Blanchard MD [address] [place] [phone] PCP - General Family Medicine 04/28/23 Jenny Borrego NP [address] [place] [address] Nurse Practitioner Family Medicine 12/27/22 documented as of this encounter
--- OUTSIDE RECORDS SUMMARY | 2024-08-27 12:55 | XMS_ITS | Clinical Summary ---
Author Organization [facility] Address [address] [place] [address] Care Team Providers Care Grant Officer Name Role Phone Deondre Roth DO, Charles P Primary Care Provider + Allergies No known active allergies Medications DULoxetine (CYMBALTA) 60 mg capsule duloxetine 60 mg capsule,delayed release TAKE 1 CAPSULE BY MOUTH EVERY DAY 2 Active atorvastatin (LIPITOR) 80 mg tablet Take 80 mg by mouth once daily. 2 Active fexofenadine (CARLOTTA) 180 mg tablet fexofenadine 180 mg tablet TAKE 1 TABLET BY MOUTH EVERY DAY Active gabapentin (NEURONTIN) 300 mg capsule Take 600 mg by mouth twice daily. 2 Active MV with Vth-Bhyqidrm-Jn tein (CENTRUM SILVER) 0.4 mg-300 mcg- 250 mcg tab Take by mouth. 2 Active insulin 75/25 lispro protamine/lispr o units/mL (HUMALOG MIX 75-25,U-100,INS ULN) 100 units/mL susp as directed. 2 Active HYDROcodone-miguel taminophen (NORCO) 5-325 mg per tablet hydrocodone 5 mg-acetaminophen 325 mg tablet TAKE 1 TO 2 TABLETS BY MOUTH EVERY DAY AT BEDTIME NEEDED Active pptikejm-nmq-kf gz-DS-pxiiso (CENTRUM SILVER WOMEN) 8 mg iron-400 mcg-300 mcg tab Acti ve furosemide (LASIX) 40 mg tablet furosemide 40 mg tablet TAKE 1 AND 1/2 TABLETS BY MOUTH DAILY 2 Active clopidogrel (PLAVIX) 75 mg tablet clopidogrel 75 mg tablet TAKE 1 TABLET BY MOUTH EVERY DAY 2 Active metoprolol succinate ER (TOPROL XL) 25 mg 24 hr tablet metoprolol succinate ER 25 mg tablet,extended release 24 hr TAKE 1 TABLET BY MOUTH DAILY (ALONG WITH THE 50MG TABLET FOR 75 MG TOTAL DAILY) 2 Active metoprolol succinate ER (TOPROL XL) 50 mg 24 hr tablet metoprolol succinate ER 50 mg tablet,extended release 24 hr TAKE 1 TABLET BY MOUTH EVERY DAY 2 Active rivaroxaban (XARELTO) 10 mg tablet Xarelto 10 mg tablet 2 Active metFORMIN (GLUCOPHAGE) 1,000 mg tablet Take 1,000 mg by mouth twice daily. 2 Active cholecalciferol (VITAMIN D3) 5,000 unit tab Vitamin D3 Refills(s) 0 Start Date: 07/27/21 Status: Ordered 2 Active HYDROcodone-Miguel taminophen 5-300 mg tab Take 1 tablet by mouth every 8 hours as needed for pain. Active methocarbamol (ROBAXIN) 500 mg tablet Take 500 mg by mouth four times daily. Active esomeprazole mag/glycerin (ESOMEP-EZS ORAL) Take by mouth. Activ e Active Problems Problem Noted Date Diagnosed Date Type 2 diabetes mellitus wit h diabetic neuropathy, with long-term current use of insulin 06/15/2023 Renal mass 04/19/2022 Renal mass, right 04/19/2022 Factor V Leiden 04/19/2022 Coronary artery disease invo lving [place] heart without angina pectoris 04/19/2022 Smoker 04/19/2022 Morbid obesity 04/19/2022 Other specified disorders of kidney and ureter 0 04/19/2022 Encounters Date Type Department Care Team Description 08/26/2024 Travel 08/21/2024 9:48 AM EDT - 08/21/2024 11:59 PM EDT Hospital Encounter Radiology Pet CT [address] [place] [address] Other specified disorders of kidney and ureter [N28.89] Discharge Disposition: Home 08/21/2024 Results Follow-Up Urology [address] [address] Angie Mcclellan, TROMBONE SLIDE ASSEMBLER.RECREATION SPECIALIST 07/31/2024 Orders Only Urology [address] [address] Aj Cuellar PA Other specified disorders of kidney and ureter (Primary Dx); Renal mass from Last 3 Months Social History Tobacco Use Types Packs/Day Years Used Date Smoking Tobacco: Every Day Cigarettes Smokeless Tobacco: Never Tobacco Cessation:Ready to Q uit: Not Asked; Counseling Given: Not Answered Alcohol Use Standard Drinks/Week Comments Not Currently 0 (1 standard drink = 0.6 oz pur e alcohol) Area Deprivation Index Answer Date [place] rded National Score (1-100), lower number is lower ri sk 63 10/15/2022 State Score (1-10), lower number is lower risk 4 10/15/2022 Data from: https://www.neighborhoodatlas.medicine.[facility].edu/. Last address used for calculation [address] [place] [address] 10/15/2022 Comments Unknown Sex and Gender Information Value Date Recorded Sex Assigned at Female 07/30/2024 2:43 PM EDT Legal Sex Female 1:44 PM EDT Gender Identity Female 07/30/2024 2:43 PM EDT Sexual Orientation Not on file Last Filed Vital Signs Vital Sign Reading Time Taken Comments Blood Pressure 128/80 03/16/2022 1:36 PM EST Pulse 87 03/16/2022 1:36 PM EST Temperature 36.6 C (97.9 F) 09/12/2021 11:08 AM EDT Respiratory Rate 18 11/09/2021 1:45 PM EDT Oxygen Saturation 96% 09/12/2021 11:08 AM EDT Inhaled Oxygen Concentration - - Weight 117 kg (258 lb) 10/15/2022 12:17 PM EDT Height 162.6 cm (5' 4 ) 03/16/2022 1:36 PM EST p er pt Body Mass Index 44.29 03/16/2022 1:36 PM EST Plan of Treatment Upcoming Encounters Date Type Department Care Team (Latest Contact Info) Description 08/28/2024 2:30 PM EDT [facility] Urology [address] [address] Uri Pickens MD [address] [place] [address] Virtual visit please tests results Health Maintenance Due Date Last Done Comments Diabetic Foot Exam 11/06/1975 Dilated Retinal Exam 11/06/1975 Urine Albumin:Creatinine Ratio 11/06/1975 Annual PCP Team Chronic Dise ase Visit 11/06/1983 Anxiety Screening 11/06/1983 Depression Screening 11/06/1983 HIV Screening 11/06/1983 Hepatitis C Screening 11/06/1983 LDL Cholesterol 11/06/1983 Hepatitis B Vaccine (1 of 3 - 19+ 3-dose series) 1984 Cervical Cancer Screening [address] Colonography 2010 Cologuard (FIT-DNA) 2010 Colonoscopy 2010 Colorectal Cancer Screening 2010 Fecal Occult Blood 2010 Sigmoidoscopy 2010 Pneumococcal Vaccine: 50+ (2 of 2 - PCV) 07/23/2017 07/23/2016 Covid-19 Vaccine (4 - 2023-2 5 season) 2023 02/25/2021, 06/19/2020, 05/29/2020 Medicare Advantage Annual We llness Visit 02/22/2024 Influenza Vaccine (#1) 2024 , 12/01/2022, 12/18/2021, Additional history exists HbA1C 01/17/2025 07/17/2024, 03/25, 04/13/2023 DTaP,Tdap,Td Vaccine (2 - Td or Tdap) 12/19/2033 12/20/2023 Shingrix Vaccine Completed 02/17/2023, 12/01/2022 Procedures Procedure Name Priority Date/Time Associated Diagnosis Comments CT ABDOMEN W IVCON Routine 08/21/2024 11 :14 AM EDT 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 mass CREATININE BLD Routine 08/21/2024 9:49 AM EDT Renal mass from Last 3 Months Results * CT ABDOMEN W IVCON (08/21/2024 [...] report reviewed and electronically signed by: TARSHA UTRK MD on Aug 21 2024 12:00PM EST Thank you for allowing us to participate in the care of your patient. Should there be any questions regarding this interpretation, please call [phone]. If you are unable to reach us at the number above, please feel free to contact [facility] at [phone]. Narrative 08/21/2024 12:02 PM EDT * * *Final Report* * * DATE OF EXAM: Aug 21 2024 11:14AM [facility] 0533 - CT ABDOMEN W IVCON / [...] images: No additional findings. Procedure Note Provider, [facility] - 08/21/2024 * * *Final Report* * * DATE OF EXAM: Aug 21 2024 11:14AM [facility] 0533 - CT ABDOMEN W IVCON / [...] any questions regarding this interpretation, please call [phone]. If you are unable to reach us at the number above, please feel free to contact [facility]iology at [phone]. us Uri Pickens MD CT-PAMA Final Result * (ABNORMAL) CREATININE BLD (08/21/2024 9:49 AM EDT) Creatinine 1.08(H) 0.58 - 0.96 mg/dL 08/21/2024 10:30 AM EDT [facility] Estimated Glomerular Filtration Rate 60 >=60 mL/min/1.7 3m 08/21/2024 10:30 AM EDT [facility] Comment:Estimated Glomerular Filtration Rate (eGFR) is [...] us Uri Pickens MD LABORATORY Final Result [facility] [address] [place] [address] from Last 3 Months Insurance [facility] MEDICARE Care Teams Grant Officer Relationship Specialty Start Date End Date Dawit Mendosa Sr., PCP - General Family Medicine 10/24/14
--- OUTSIDE RECORDS SUMMARY | 2024-08-27 12:55 | XMS_ITS | Encounter Summary ---
Author Organization [facility] Address [address] [place] [address] Care Team Providers Care River Rafting Guide Name Role Phone Deondre Roth, Dawit US Primary Care Provider + Source Comments In the event this information is protected by the Federal Confidentiality of Alcohol and Drug AbusePatient Records regulations: The Federal rules restrict any use of the information to criminally investigate or prosecute any alcohol or drug abuse patient.[facility] Encounter Details Date Type Department Care Team (Late st Contact Info) Description 08/21/2024 Results Follow-Up Urology [address] [place] [address] Angie Mcclellan APRN.AIRCRAFT PART ASSEMBLER [address] [place] [address] Social History Tobacco Use Types Packs/Day Years [...] lower risk 4 10/15/2022 Data from: https://www.neighborhoodatlas.medicine.[facility].edu/. Last address used for calculation [address] 10/15/2022 Comments Unknown Sex and Gender Information Value Date Recorded Sex Assigned at Female 07/30/2024 2:43 PM EDT Legal Sex Female 1:44 PM EDT Gender Identity Female 07/30/2024 2:43 PM EDT Sexual Orientation Not on file documented as of this encounter Plan of Treatment Upcoming Encounters Date Type Department Care Team (Latest Contact Info) Description 08/28/2024 2:30 PM EDT [facility] Urology [address] [address] Uri Pickens MD [address] [address] Virtual visit please tests results documented as of this encounter Visit Diagnoses Not on filedocumented in this encounter Care Teams River Rafting Guide Relationship Specialty Start Date End Date Dawit Mendosa Sr., PCP - General Family Medicine 10/24/14 documented as of this encounter
--- OUTSIDE RECORDS SUMMARY | 2024-08-27 12:55 | XMS_ITS | Encounter Summary ---
Author Organization [facility] Address [address] [place] [address] Care Team Providers Care Staff Veterinarian Name Role Phone Ludin Blanchard MD Primary Care Provider [phone] Jenny Borrego PIPELINE ENGINEER Unavailable Ludin Blanchard MD Primary Care Provider [phone] Encounter Details Date Type Department Care Team (Late st Contact Info) Description 01/10/2023 Abstract [facility] [address] [place] [address] Deonna Finn PIPELINE ENGINEER Social History Tobacco Use Types Packs/Day Years Used Date Smoking Tobacco: Every Day Cigarettes 1 30 Smokeless Tobacco: Never Tobacco Cessation:Ready to Q uit: No; Counseling Given: Not Answered Comments:11-20 cigarettes/day Alcohol Use Standard Drinks/Week Comments Not Currently 0 (1 standard drink = 0.6 oz pur e alcohol) Caffeine: coffee,soda/pop Comments Unknown Sex and Gender Information Value Date Recorded Sex Assigned at Not on file Legal Sex Female 7:05 PM EDT Gender Identity Not on file Sexual Orientation Not on file documented as of this encounter Plan of Treatment Upcoming Encounters Date Type Department Care Team (Late st Contact Info) Description 08/28/2024 10:30 AM EDT Office Visit [facility] [address] [place] [id number] Jr. Elvis Beal DO [address] [place] [address] 10/17/2024 1:00 PM EDT Office Visit [facility] [address] [place] [address] Jenny Borrgeo, [place] [address] [place] [address] 04/18/2025 11:00 AM EST Office Visit [facility] [address] [place] [address] Jenny Borrego, [place] [address] [place] [address] documented as of this encounter Visit Diagnoses Not on filedocumented in this encounter Care Teams Staff Veterinarian Relationship Specialty Start Date End Date Ludin Blanchard MD PCP - General Family Medicine 10/06/22 04/27/23 Ludin Blanchard MD [address] [place] [address] PCP - General Family Medicine 04/28/23 Jenny Borrego NP [address] [place] [address] Nurse Practitioner Family Medicine 12/27/22 documented as of this encounter
--- OUTSIDE RECORDS SUMMARY | 2024-08-27 12:55 | XMS_ITS | Clinical Summary ---
Author Organization [facility] tem Address [id number] [address] [place] [address] Care Team Providers Care Perforator Loader Name Role Phone Jenny Borrego APRN-STRAP MAKER Primary Care Provider Allergies No known active allergies Medications No known medications Active Problems No known active problems Social History Tobacco Use Types Packs/Day Years Used Date Smoking Tobacco: Every Day Cigarettes Smokeless Tobacco: Never Tobacco Cessation:Ready to Q uit: Not Asked; Counseling Given: Not Answered Alcohol Use Standard Drinks/Week Comments No 0 (1 standard drink = 0.6 oz pur e alcohol) Childcare Answer Date Recorded Childcare Unknown 08/03/2018 Employment Answer Date Recorded Employment Unknown 08/03/2018 Purpose - Life Answer Date Recorded Purpose and direction in life Unknown Comments No Sex and Gender Information Value Date Recorded Sex Assigned at Not on file Legal Sex Female 9:10 AM EDT Gender Identity Not on file Sexual Orientation Not on file Last Filed Vital Signs Vital Sign Reading Time Taken Comments Blood Pressure 129/53 05/08/2024 3:36 PM EDT Pulse 77 05/08/2024 3:36 PM EDT Temperature 36.5 C (97.7 F) 05/08/2024 2:37 PM EDT Respiratory Rate 14 05/08/2024 3:36 PM EDT Oxygen Saturation 88% 05/08/2024 3:36 PM EDT Inhaled Oxygen Concentration - - Weight 117.9 kg (260 lb) 05/08/2024 12:12 PM EDT Height 162.6 cm (5' 4 ) 05/08/2024 12:12 PM EDT Body Mass Index 44.63 05/08/2024 12:12 PM EDT Plan of Treatment Health Maintenance Due Date Last Done Comments Tobacco Counseling 1965 Depression Screening 1977 Adult BMI Follow Up Plan 11/06/1983 COVID-19 Vaccine (2 - 2023-2 5 season) 2023 02/25/2021, 06/19/2020, 06/19/2020, Additional history exists Influenza Vaccine 10/22/2024 12/20/2023, , 12/18/2021, Additional history exists Adult BMI Screening 05/08/2025 05/08/2024 Tobacco Screening 05/08/2025 05/08/2024 DTaP,Tdap and Td Vaccines (2 - Td or Tdap) 12/19/2033 12/20/2023 Zoster (Shingles) Vaccine Completed 02/17/2023, 12/2022 Medical Devices Not on file Insurance [address] [place] [address] [facility] MEDIC[facility] Care Teams Perforator Loader Relationship Specialty Start Date End Date Jenny Borrego, STUDENT ACCOUNTS MANAGER-STRAP MAKER PCP - General Nurse Practitioner 04/30/24
--- OUTSIDE RECORDS SUMMARY | 2024-08-27 12:56 | XMS_ITS | Encounter Summary ---
Author Organization [facility] Address [address] [place] [address] Care Team Providers Care Naval Aircrewman Helicopter Name Role Phone Jenny Borrego FINANCIAL PROJECT MANAGER Unavailable [phone] Ludin Blanchard MD Primary Care Provider Encounter Details Date Type Department Care Team (Late st Contact Info) Description 07/11/2023 Orders Only [facility] [address] [place] [address] Jenny Borrego, ZELALEM [address] [place] [address] Social History Tobacco Use Types Packs/Day Years [...] How often do you attend chur or druze services? Never 03/24/2023 Do you belong to any clubs o r organizations such as druze groups, unions, fraternal or athletic groups, or [...] Answer Date Recorded Patient Health Questionnaire-2 Score 2 06/23/2023 [facility] - Occupational Stress [...] place to sleep or slept in a residential (including now)? No 03/24/2023 Comments Unknown Sex [...] Visit [facility] [address] [place] [address] Jr. Elvis Beal, DO [address] [place] [address] 10/17/2024 1:00 PM EDT Office Visit [facility] [address] [place] [address] Jenny Borrego NP [address] [place] [address] 04/18/2025 11:00 AM EST Office Visit [facility] [address] [place] [address] Jenny Borrego NP [address] [place] [address] documented as of this encounter Procedures Procedure Name Priority Date/Time Associated Diagnosis Comments MISCELLANEOUS LAB TEST Routine 07/11/2023 3:43 PM EDT SCANNED LABS Routine 07/11/2023 10:43 AM EDT documented in this encounter Results * - Miscellaneous Test (07/11/2023 3:43 PM EDT) Jenny Borrego FINANCIAL PROJECT MANAGER LAB BLOOD ORDERABLES Final Resu lt * SCANNED LABS (07/11/2023 10:43 AM EDT) us Jenny Borrego FINANCIAL PROJECT MANAGER LAB CHG PERFORMABLES Final Resu lt documented in this encounter Visit Diagnoses Not on filedocumented in this encounter Additional Health Concerns Assessment Noted Time PHQ-9 Depression Total Score: 4 03/24/19 24 5:00 PM EST documented as of this encounter Care Teams Naval Aircrewman Helicopter Relationship Specialty Start Date End Date Ludin Blanchard MD [address] [place] [address] PCP - General Family Medicine 04/28/23 Jenny Borrego NP [address] [place] [address] Nurse Practitioner Family Medicine 12/27/22 documented as of this encounter
--- OUTSIDE RECORDS SUMMARY | 2024-08-27 12:56 | XMS_ITS | Encounter Summary ---
Author Organization [facility] Address [address] [place] [address] Care Team Providers Care Leases And Land Supervisor Name Role Phone Jenny Borrego NP Unavailable [phone] Ludin Blanchard MD Primary Care Provider [phone] Encounter Details Date Type Department Care Team (Late st Contact Info) Description 09/19/2023 Clinisync Result Encounter [facility] External Department Unsolicited Provider, Generic External Data Social History Tobacco Use Types Packs/Day Years [...] 03/24/2023 How often do you attend chur ch or alevism services? Never 03/24/2023 Do you belong to any clubs o r organizations such as moravian groups, unions, fraternal or athletic groups, or [...] Recorded Patient Health Questionnaire-2 Score 2 06/23/2023 [facility] - Occupational [...] place to sleep or slept in a nursing home (including now)? No 03/24/2023 Comments Unknown Sex [...] Office Visit [facility] [address] [facility] [address] Jr. Malik Beal, [address] [facility] [address] [place] [address] 10/17/2024 1:00 PM EDT Office Visit [facility] [address] [place] [address] Jenny Borrego NP [address] [place] [address] 04/18/2025 11:00 AM EST Office Visit [facility] [address] [place] [address] Jenny Borrego NP [address] [place] [place] [address] documented as of this encounter Procedures Procedure Name Priority Date/Time Associated Diagnosis Comments NM LACHELLE PERF SPECT REST STR 09/19/2023 4:41 PM EDT documented in this encounter Results * NM LACHELLE PERF SPECT REST STR (09/19/2023 4:41 PM EDT) Anatomical Region Laterality Modality Other 09/19/2023 4:41 PM EDT Narrative 09/19/2023 4:42 [place] [address] Nuclear Medicine Report Signed Patient: ELMER ELLIS MR#: [id number] : 1965 Acct:[id number] Age/Sex: 57 / F ADM Date: 09/15/23 Loc: CARD Attending Dr: MALIK NI Ordering Physician: MALIK NI Date of Service: 09/15/23 Procedure(s): NM lachelle perf SPECT rest str Accession Number(s): [id number] cc: Jenny Borrego REHABILITATION NURSE; MALIK NI Patient Name: ELMER ELLIS MR#: [id number] : 1965 Exam Date: 09/15/2023 Ordering Doctor: DR MALIK NI M.D. RADIOLOGY REPORT PROCEDURE: NM LACHELLE PERF SPECT REST STR COMPARISON: None. INDICATIONS: CORONARY ARTERY DISEASE, DYSPNEA TECHNIQUE: Exam Description: Stress/Rest two day protocol gated SPECT Rest Imagin.9 mCi Tc-99m Cardiolite IV on 09/15/2023 Stress Imaging 25.8 mCi Tc-99m Cardiolite IV on 09/19/2023 Exercise Protocol: 0.4 mg Lexiscan given IV Heart Rate (bpm): Rest: 77 Max: 91 PMHR: 55 Blood Pressure: Rest: 110/62 Max: 114/60 Symptoms: Rest and peak stress ECG findings were pending and the exercise portion of the study was pending per attending physician Dr. CHAVIS . For more details please see separate cardiac stress test report. FINDINGS: QUALITY OF STUDY: Excellent. PERFUSION DEFECT: LOCATION: [place]. SIZE: Small (1-2 segments). SEVERITY: Mild. TYPE: Persistent. WALL MOTION: Normal. LV SIZE: Normal. 84 mL. TID / TCD: None; 1.0 LVEF: Normal. Calculated EF 68%. SUMMARY: Myocardial perfusion imaging study has ABNORMAL findings. CONCLUSION: 1. No acute or reversible ischemia. 2. Small fixed perfusion defect versus attenuation artifact at the apex. 3. Normal left ventricle volume, wall motion, and ejection fraction. Dictated by: Vishal Ashton M.D. on 09/19/2023 at 16:37 Approved by: Vishal Ashton M.D. on 09/19/2023 at 16:41 Dictated By: Vishal Ashton M.D. Signed By: 09/19/231641 DD/ 40 TD/TT: Outbound Telemarketer: Procedure Note Radiology, Radiologist, MD - 09/19/2023 [place] [address] Nuclear Medicine Report Signed Patient: ELMER ELLIS MMR#: [id number] : 1965Acct:[id number] Age/Sex: 57 / FADM Date: 09/15/23 Loc: CARD Attending Dr: MALIK NI Ordering Physician: MALIK NI Date of Service: 09/15/23 Procedure(s): NM lachelle perf SPECT rest str Accession Number(s): [id number] cc: Jenny Borrego REHABILITATION NURSE; MALIK NI Patient Name: ELMER ELLIS MR#: [id number] : 1965 Exam Date: 09/15/2023 Ordering Doctor: DR MALIK NI M.D. RADIOLOGY REPORT PROCEDURE: NM LACHELLE PERF SPECT REST STR COMPARISON: None. INDICATIONS: CORONARY ARTERY DISEASE, DYSPNEA TECHNIQUE: Exam Description: Stress/Rest two day protocol gated SPECT Rest Imagin.9 mCi Tc-99m Cardiolite IV on 09/15/2023 Stress Imaging 25.8 mCi Tc-99m Cardiolite IV on 09/19/2023 Exercise Protocol: 0.4 mg Lexiscan given IV Heart Rate (bpm): Rest: 77 Max: 91 PMHR: 55 Blood Pressure: Rest: 110/62 Max: 114/60 Symptoms: Rest and peak stress ECG findings were pending and the exercise portion ofthe study was pending per attending physician Dr. CHAVIS . For more detailsplease see separate cardiac stress test report. FINDINGS: QUALITY OF STUDY: Excellent. PERFUSION DEFECT: LOCATION: [place]. SIZE: Small (1-2 segments). SEVERITY: Mild. TYPE: Persistent. WALL MOTION: Normal. LV SIZE: Normal. 84 mL. TID / TCD: None; 1.0 LVEF: Normal. Calculated EF 68%. SUMMARY: Myocardial perfusion imaging study has ABNORMAL findings. CONCLUSION: 1. No acute or reversible ischemia. 2. Small fixed perfusion defect versus attenuation artifact at the apex. 3. Normal left ventricle volume, wall motion, and ejection fraction. Dictated by: Vishal Ashton M.D. on 09/19/2023 at 16:37 Approved by: Vishal Ashton M.D. on 09/19/2023 at 16:41 Dictated By: Vishal Ashton M.D. Signed By:09/19/232 DD/ 40 TD/TT: Outbound Telemarketer: Generic External Data Provider [facility] Final Result documented in this encounter Visit Diagnoses Not on filedocumented in this encounter Additional Health Concerns Assessment Noted Time PHQ-9 Depression Total Score: 4 03/24/19 24 5:00 PM EST documented as of this encounter Care Teams Leases And Land Supervisor Relationship Specialty Start Date End Date Ludin Blanchard MD [address] [place] [address] PCP - General Family Medicine 04/28/23 Jenny Borrego NP [address] [place] [address] Nurse Practitioner Family Medicine 12/27/22 documented as of this encounter
--- OUTSIDE RECORDS SUMMARY | 2024-08-27 12:56 | XMS_ITS | Encounter Summary ---
Author Organization [facility] Address [address] [place] [address] Care Team Providers Care Multiple Spindle Router Operator Name Role Phone Jenny Borrego [facility] Unavailable [phone] Ludin Blanchard MD Primary Care Provider Encounter Details Date Type Department Care Team (Late st Contact Info) Description 07/17/2024 Orders Only [facility] [address] [place] [address] Jenny Borrego, ZELALEM [address] [place] [address] Social History Tobacco Use Types [...] How often do you attend chur or faith services? Never 03/24/2023 Do you belong to any clubs o r organizations such as hindu groups, unions, fraternal or athletic groups, or [...] Recorded Patient Health Questionnaire-2 Score 1 04/17/2024 [facility] - Occupational [...] place to sleep or slept in a half-way (including now)? No 03/24/2023 Comments Unknown Sex [...] Visit [facility] [address] [place] [address] Jr. Elvis Beal, DO [address] [place] [address] 10/17/2024 1:00 PM EDT Office Visit [facility] [address] [place] [address] Jenny Borrego NP [address] [place] [address] 04/18/2025 11:00 AM EST Office Visit [facility] [address] [place] [address] Jenny Borrego NP [address] [place] [address] documented as of this encounter Procedures Procedure Name Priority Date/Time Associated Diagnosis Comments DEXA BONE DENSITY Routine 07/17/2024 2:07 PM EDT documented in this encounter Results * DEXA bone density (07/17/2024 2:07 PM EDT) Anatomical Region Laterality Modality Body Radiographic Cecile ging Jenny Borrego [facility] IMG DXA PROCEDURES Final Result documented in this encounter Visit Diagnoses Not on filedocumented in this encounter Additional Health Concerns Assessment Noted Time PHQ-9 Depression Total Score: 4 04/17/19 25 1:00 PM EST documented as of this encounter Care Teams Multiple Spindle Router Operator Relationship Specialty Start Date End Date Ludin Blanchard MD [address] [place] [address] PCP - General Family Medicine 04/28/23 Jenny Borrego NP [address] [place] [address] Nurse Practitioner Family Medicine 12/27/22 documented as of this encounter
--- OUTSIDE RECORDS SUMMARY | 2024-08-27 12:56 | XMS_ITS | Encounter Summary ---
Author Organization [facility] Address [address] [place] [address] Care Team Providers Care Unishear Operator Name Role Phone Jenny Borrego NP Unavailable [phone] Ludin Blanchard MD Primary Care Provider [phone] Encounter Details Date Type Department Care Team (Late st Contact Info) Description 09/12/2023 Clinisync Result Encounter [facility] External Department Unsolicited [...] often do you attend chur ch or mormon services? Never 03/24/2023 Do you belong to any clubs o r organizations such as anabaptism groups, unions, fraternal or athletic groups, or [...] Recorded Patient Health Questionnaire-2 Score 2 06/23/2023 [facility] - Occupational [...] place to sleep or slept in a alf (including now)? No 03/24/2023 Comments Unknown Sex [...] Office Visit [facility] [address] [place] [address] Jr. Malik Beal, [address] [facility] 150 [place] [address] 10/17/2024 1:00 PM EDT Office Visit [facility] [address] [address] Jenny Borrego NP [address] [place] [address] 04/18/2025 11:00 AM EST Office Visit [facility] [address] [place] [address] Jenny Borrego NP [address] [place] [place] [address] documented as of this encounter Procedures Procedure Name Priority Date/Time Associated Diagnosis Comments US ANKLE BRACHIAL INDEX ([place]) 09/12/2023 1:32 PM EDT documented in this encounter Results * US ANKLE BRACHIAL INDEX ([place]) (09/12/2023 1:32 PM EDT) Anatomical Region Laterality Modality Radiographic Cecile ging 09/12/2023 1:32 PM EDT Narrative 09/12/2023 1:35 [place] [address] Vein Report Signed Patient: ELMER ELLIS MR#: [id number] : 1965 Acct:[id number] Age/Sex: 57 / F ADM Date: 09/08/23 Loc: VC Attending Dr: MALIK NI Ordering Physician: MALIK NI Date of Service: 09/08/23 Procedure(s): VC Ankle Brachial Index Accession Number(s): [id number] cc: Jenny Borrego EVENT SALES ASSISTANT; MALIK NI [place] [address] Patient Name: ELMER ELLIS MRN: [id number] date: 1965 Sex: F Assigned Patient Location: Current Patient Location: Accession/Order Number: [id number] Exam Date: 09/08/2023 11:30 Report Date: 09/12/2023 13:32 At the request of: MALIK NI Procedure: VC Ankle Brachial Index EXAM: VC Ankle Brachial Index HISTORY: I73.9 COMPARISON: None. FINDINGS: Segmental pressures presented as follows (right, left) in mmHg. Brachial: 124, 126 DPA: 100, 134 PRODUCE TEAM LEAD: 85, 134 1st Toe: 57, 144 [place]: 0.79, 1.06 TBI: 0.45, 1.14 The [place] demonstrates mild arterial disease on the right, normal on the left The TBI demonstrates moderate ischemia on the right, normal on the left VEIN/VC Ankle Brachial Index IMPRESSION: [place] demonstrates mild right arterial disease, normal left Electronically authenticated by: GIL CHAN Date: 09/12/2023 13:32 Dictated By: Gil Chan M.D. Signed By: 09/12/231334 DD/ 31 TD/TT: Machinist Mechanic: Procedure Note Radiology, Radiologist, - 09/13/2023 [place] [address] Vein Report Signed Patient: ELMER ELLIS MMR#: [id number] : 1965Acct:[id number] Age/Sex: 57 / FADM Date: 09/08/23 Loc: VC Attending Dr: MALIK NI Ordering Physician: MALIK NI Date of Service: 09/08/23 Procedure(s): VC Ankle Brachial Index Accession Number(s): [id number] cc: Jenny Borrego EVENT SALES ASSISTANT; MALIK NI [place] [address] Patient Name: ELMER ELLIS MRN: [id number] date: 1965 Sex: F Assigned Patient Location: Current Patient Location: Accession/Order Number: [id number] Exam Date: 09/08/2023 11:30 Report Date: 09/12/2023 13:32 At the request of: MALIK NI Procedure: VC Ankle Brachial Index EXAM: VC Ankle Brachial Index HISTORY: I73.9 COMPARISON: None. FINDINGS: Segmental pressures presented as follows (right, left) in mmHg. Brachial: 124, 126 DPA: 100, 134 PRODUCE TEAM LEAD: 85, 134 1st Toe: 57, 144 [place]: 0.79, 1.06 TBI: 0.45, 1.14 The [place] demonstrates mild arterial disease on the right, normal on theleft The TBI demonstrates moderate ischemia on the right, normal on the left VEIN/VC Ankle Brachial Index IMPRESSION: [place] demonstrates mild right arterial disease, normal left Electronically authenticated by: GIL CHAN Date: 09/12/2023 13:32 Dictated By: Gil Chan M.D. Signed By:09/12/231334 DD/ 31 TD/TT: Machinist Mechanic: us Generic External Data Provider IMG XR PROCEDURES Final Result documented in this encounter Visit Diagnoses Not on filedocumented in this encounter Additional Health Concerns Assessment Noted Time PHQ-9 Depression Total Score: 4 03/24/19 24 5:00 PM EST documented as of this encounter Care Teams Unishear Operator Relationship Specialty Start Date End Date Ludin Blanchard MD [address] [place] [address] PCP - General Family Medicine 04/28/23 Jenny Borrego NP [address] [place] [address] Nurse Practitioner Family Medicine 12/27/22 documented as of this encounter
--- OUTSIDE RECORDS SUMMARY | 2024-08-27 12:56 | XMS_ITS | Encounter Summary ---
Author Organization [facility] Address [address] [place] [address] Care Team Providers Care Press Department Manager Name Role Phone Jenny Borrego [facility] Unavailable [phone] Ludin Blanchard MD Primary Care Provider Encounter Details Date Type Department Care Team (Late st Contact Info) Description 11/21/2023 Orders Only [facility] [address] [place] [address] Jenny Borrego, ZELALEM [address] [place] [address] Social History Tobacco Use Types Packs/Day Years [...] How often do you attend chur or spiritism services? Never 03/24/2023 Do you belong to any clubs o r organizations such as mormonism groups, unions, fraternal or athletic groups, or [...] Recorded Patient Health Questionnaire-2 Score 2 06/23/2023 [facility] - Occupational [...] Visit [facility] [address] [place] [address] Jr. Elvis Beal, DO [address] [place] [address] 10/17/2024 1:00 PM EDT Office Visit [facility] [address] [place] [address] Jenny Borrego NP [address] [place] [address] 04/18/2025 11:00 AM EST Office Visit [facility] [address] [place] [address] Jenny Borrego, ZELALEM [address] [place] [address] documented as of this encounter Procedures Procedure Name Priority Date/Time Associated Diagnosis Comments XR ANKLE 3+ VIEWS RIGHT Routine 11/21/2023 11:44 AM EDT documented in this encounter Results * XR ankle 3+ views right (11/21/2023 11:44 AM EDT) Anatomical Region Laterality Modality Lower Extremities, Ankle Right Radiogr aphic Imaging us Jenny Borrego NP IMG XR PROCEDURES Final Result documented in this encounter Visit Diagnoses Not on filedocumented in this encounter Additional Health Concerns Assessment Noted Time PHQ-9 Depression Total Score: 4 03/24/19 24 5:00 PM EST documented as of this encounter Care Teams Press Department Manager Relationship Specialty Start Date End Date Ludin Blanchard MD [address] [place] [address] PCP - General Family Medicine 04/28/23 Jenny Borrego NP [address] [place] [address] Nurse Practitioner Family Medicine 12/27/22 documented as of this encounter
--- OUTSIDE RECORDS SUMMARY | 2024-08-27 12:56 | XMS_ITS | Encounter Summary ---
Author Organization [facility] Address [address] [place] [address] Care Team Providers Care Tire Cord Weaver Name Role Phone Jenny Borrego STAMPING BENCH DIE MAKER Unavailable [phone] Ludin Blanchard MD Primary Care Provider [phone] Encounter Details Date Type Department Care Team (Late st Contact Info) Description 09/27/2023 Clinisync Result Encounter [facility] External Department Unsolicited Jenny Borrego, ZELALEM [address] [place] [address] Social History Tobacco Use Types Packs/Day Years [...] often do you attend chur ch or yazdanism services? Never 03/24/2023 Do you belong to [...] Recorded Patient Health Questionnaire-2 Score 2 06/23/2023 [facility] Questionnaire Answer Date [...] place to sleep or slept in a group home (including now)? No 03/24/2023 Comments Unknown Sex and Gender Information Value Date Recorded Sex Assigned at Not on file Legal Sex Female 7:05 PM EDT Gender Identity Not on file Sexual Orientation Not on file documented as of this encounter Plan of Treatment Upcoming Encounters Date Type Department Care Team (Late st Contact Info) Description 08/28/2024 10:30 AM EDT Office [facility] [address] [place] [address] Jr. Elvis Beal, DO [address] [place] [address] 10/17/2024 1:00 PM EDT Office Visit [facility] [address] [place] [address] Jenny Borrego NP [address] [place] [address] 04/18/2025 11:00 AM EST [facility] [address] [place] [address] Jenny Borrego NP [address] [facility] [place] [address] documented as of this encounter Procedures Procedure Name Priority Date/Time Associated Diagnosis Comments US RIGHT UPPER QUADRANT 09/27/2023 8:40 AM EDT documented in this encounter Results * US RIGHT UPPER QUADRANT (09/27/2023 8:40 AM EDT) Anatomical Region Laterality Modality Other 09/27/2023 8:40 AM EDT Narrative 09/27/2023 8:42 AM EDT [address] [address] Ultrasound Report Signed Patient: ELMER MENESES MR#: [id number] : 1965 Acct:[id number] Age/Sex: 57 / F ADM Date: 09/26/23 Loc: US Attending Dr: Jenny Borrego NP Ordering Physician: Jenny Borrego NP Date of Service: 09/26/23 Procedure(s): US right upper quadrant Accession Number(s): [id number] cc: Jenny Borrego NP [address] [address] Patient Name: ELMER MENESES MRN: [id number] date: 1965 Sex: F Assigned Patient Location: US Current Patient Location: Accession/Order Number: [id number] Exam Date: 09/26/2023 10:10 Report Date: 09/27/2023 08:40 At the request of: JENNY BORREGO Procedure: US right upper quadrant EXAM: US right upper quadrant HISTORY: . Elevated Alkaline Phosphatase Level R74.8 . COMPARISON: None. TECHNIQUE: Grayscale and color imaging was performed FINDINGS: The body of pancreas appears normal. The head and tail was obscured due to overlying bowel gas. Scanning of the liver demonstrates diffuse increased echogenicity of liver consistent with fatty infiltration of liver. Portions of the liver were obscured due to overlying bowel gas. Color-flow is noted in the portal and hepatic veins. Common bile duct measures 5 mm. Right kidney measures 10.2 x 5.7 x 5.1 cm. Color-flow is noted. No solid renal cortical masses or hydronephrosis was noted. The gallbladder is absent. No fluid is noted in the right upper quadrant US/US right upper quadrant IMPRESSION: 1. Limited exam due to patient's body habitus and overlying bowel gas. 2. The body of the pancreas appears normal. The head and tail was obscured due to overlying bowel gas. 3. Portions of the liver were obscured due to overlying bowel gas. Visualized portions of liver demonstrate increased echogenicity consistent with fatty infiltration of liver. 4. The gallbladder is absent. 5. The remainder the right upper quadrant was unremarkable. Electronically authenticated by: GIL KEN Date: 09/27/2023 08:40 Dictated By: Gil Ken M.D. Signed By: 09/27/2342 DD/ TD/TT: Instant Potato Processor: Procedure Note Radiology, Radiologist, MD - 09/27/2023 [place] [address] Ultrasound Report Signed Patient: ELMER MENESES MMR#: [id number] : 1965Acct:[id number] Age/Sex: 57 / FADM Date: 09/26/23 Loc: US Attending Dr: Jenny Borrego NP Ordering Physician: Jenny Borrego NP Date of Service: 09/26/23 Procedure(s): US right upper quadrant Accession Number(s): [id number] cc: Jenny Borrego NP [address] [place] [address] Patient Name: ELMER MENESES MRN: [id number] date: 1965 Sex: F Assigned Patient Location: US Current Patient Location: Accession/Order Number: [id number] Exam Date: 09/26/2023 10:10 Report Date: 09/27/2023 08:40 At the request of: JENNY BORREGO Procedure: US right upper quadrant EXAM: US right upper quadrant HISTORY: . Elevated Alkaline Phosphatase Level R74.8 . COMPARISON: None. TECHNIQUE: Grayscale and color imaging was performed FINDINGS: The body of pancreas appears normal. The head and tail wasobscured due to overlying bowel gas. Scanning of the liver demonstrates diffuse increased echogenicity of liver consistent with fatty infiltration of liver. Portions of the liver were obscured due to overlying bowel gas. Color-flow is noted in the portal and hepatic veins. Common bile duct measures 5 mm. Right kidney measures 10.2 x 5.7 x 5.1 cm. Color-flow is noted. No solidrenal cortical masses or hydronephrosis was noted. The gallbladder is absent. No fluid is noted in the right upper quadrant US/US right upper quadrant IMPRESSION: 1. Limited exam due to patient's body habitus and overlying bowel gas. 2. The body of the pancreas appears normal. The head and tail was obscureddue to overlying bowel gas. 3. Portions of the liver were obscured due to overlying bowel gas.Visualized portions of liver demonstrate increased echogenicity consistent with fatty infiltration of liver. 4. The gallbladder is absent. 5. The remainder the right upper quadrant was unremarkable. Electronically authenticated by: GIL KEN Date: 09/27/2023 08:40 Dictated By: Gil Ken M.D. Signed By:09/27/23 0842 DD/ TD/TT: Instant Potato Processor: Jenny Borrego NP [facility] Final Result documented in this encounter Visit Diagnoses Not on filedocumented in this encounter Additional Health Concerns Assessment Noted Time PHQ-9 Depression Total Score: 4 03/24/19 24 5:00 PM EST documented as of this encounter Care Teams Tire Cord Weaver Relationship Specialty Start Date End Date Ludin Blanchard MD [address] [place] [address] PCP - General Family Medicine 04/28/23 Jenny Borrego NP [address] [place] [address] [place] [address] Nurse Practitioner Family Medicine 12/27/22 documented as of this encounter
--- OUTSIDE RECORDS SUMMARY | 2024-08-27 12:56 | XMS_ITS | Encounter Summary ---
Author Organization [facility] Address [address] [place] [address] Care Team Providers Care Recreation Facility Manager Name Role Phone Deondre Roth, Dawit [place] Primary Care Provider + Source Comments In the event this information is protected by the Federal Confidentiality of Alcohol and Drug AbusePatient Records regulations: The Federal rules restrict any use of the information to criminally investigate or prosecute any alcohol or drug abuse patient.[facility] Encounter Details Date Type Department Care Team (Late st Contact Info) Description 04/21/2022 Get Medical Advice Urology [address] [place] [phone] Uri Pickens MD [address] [place] [address] Letter Social History Tobacco Use Types Packs/Day Years Used Date Smoking Tobacco: Every Day Cigarettes Smokeless Tobacco: Never Alcohol Use Standard Drinks/Week Comments Not Currently 0 (1 standard drink = 0.6 oz pur e alcohol) Area Deprivation Index Answer Date [place] rded National Score (1-100), lower number is lower ri sk 60 03/08/2022 State Score (1-10), lower number is lower risk N ot on file 03/08/2022 Data from: https://www.neighborhoodatlas.[facility]/. Last address used for calculation [address] [facility] [facility] 03/08/2022 Comments Unknown Sex and Gender Information Value Date Recorded Sex Assigned at Female 07/30/2024 2:43 PM EDT Legal Sex Female 1:44 PM EDT Gender Identity Female 07/30/2024 2:43 PM EDT Sexual Orientation Not on file documented as of this encounter Plan of Treatment Upcoming Encounters Date Type Department Care Team (Latest Contact Info) Description 08/28/2024 2:30 PM EDT [facility] Urology [address] [address] Uri Pickens MD [address] [address] Virtual visit please tests results documented as of this encounter Visit Diagnoses Not on filedocumented in this encounter Care Teams Recreation Facility Manager Relationship Specialty Start Date End Date Dawit Mendosa Sr., PCP - General Family Medicine 10/24/14 documented as of this encounter
--- OUTSIDE RECORDS SUMMARY | 2024-08-27 12:56 | XMS_ITS | Patient Health Record ---
Author Organization [facility] [place], [facility] Address [address] [place] [address] Care Team Providers Care Railroad Emergency Services Manager Name Role Phone Dr Shay Lugo Unavailable [phone] Farhan Celeste M.D. Unavailable Reason For Referral No Information Problems Problem Type SNOMED Code ICD Code Onset Dates Problem Status W/U Status Risk Notes Problem Lumbosacral plexus lesion (8572421) Lumbosacral plexus disorders (G54.1) 1 Active confirmed Plan Of Treatment No Information Insurance Providers Payer Name Payer Address Payer Phone Subscriber Number Group Number Insured Name Patient Relationship to Insured Coverage Start Date Coverage End Date [facility] [address] [place] [phone] [id number] Mayank Meneses Spouse - patient is the spouse of the insured [place] [address] [place] [address] [id number] Melany Meneses Self - patient is the insured
--- OUTSIDE RECORDS SUMMARY | 2024-08-27 12:56 | XMS_ITS | Clinical Summary ---
Author Organization [facility] Address [address] [place] [address] Phone Care Team Providers Care Machined Parts Quality Inspector Name Role Phone Unavailable Primary Care Provider Unavailabl e Social History Tobacco Use Types Packs/Day Years Used Date Smoking Tobacco: Never Assessed Comments Unknown Sex and Gender Information Value Date Recorded Sex Assigned at Not on file Legal Sex Female 7:35 PM EST Gender Identity Not on file Sexual Orientation Not on file Plan of Treatment Not on file
--- OUTSIDE RECORDS SUMMARY | 2024-08-27 12:56 | XMS_ITS | Encounter Summary ---
Author Organization [facility] Address [address] [place] [address] Care Team Providers Care Pci Security Consultant Name Role Phone Deondre Roth, Dawit [place] Primary Care Provider + Source Comments In the event this information is protected by the Federal Confidentiality of Alcohol and Drug AbusePatient Records regulations: The Federal rules restrict any use of the information to criminally investigate or prosecute any alcohol or drug abuse patient.[facility] Encounter Details Date Type Department Care Team (Late st Contact Info) Description 04/20/2022 Get Medical Advice Urology [address] [place] [phone] Uri Pickens MD [address] [place] [address] Letter Social History Tobacco Use Types Packs/Day [...] N ot on file 03/08/2022 Data from: https://www.neighborhoodatlas.[facility]/. Last address used for calculation [address] [facility] 03/08/2022 Comments Unknown Sex and Gender Information Value Date Recorded Sex Assigned at Female 07/30/2024 2:43 PM EDT Legal Sex Female 1:44 PM EDT Gender Identity Female 07/30/2024 2:43 PM EDT Sexual Orientation Not on file documented as of this encounter Plan of Treatment Upcoming Encounters Date Type Department Care Team (Latest Contact Info) Description 08/28/2024 2:30 PM EDT [facility] Urology [address] [address] Uri Pickens MD [address] [address] Virtual visit please tests results documented as of this encounter Visit Diagnoses Not on filedocumented in this encounter Care Teams Pci Security Consultant Relationship Specialty Start Date End Date Dawit Mendosa Sr., PCP - General Family Medicine 10/24/14 documented as of this encounter
--- OUTSIDE RECORDS SUMMARY | 2024-08-27 12:56 | XMS_ITS | Encounter Summary ---
Author Organization [facility] Address [address] [place] [address] Care Team Providers Care Ict Developer Name Role Phone Jenny Borrego ENTRY WRITER Unavailable [phone] Ludin Blanchard MD Primary Care Provider Encounter Details Date Type Department Care Team (Late st Contact Info) Description 09/27/2023 Orders Only [facility] [address] [place] [address] Jenny Borrego, ZELALEM [address] [place] [address] Social History Tobacco Use Types [...] How often do you attend chur or evangelical services? Never 03/24/2023 Do you belong to any clubs o r organizations such as buddhist groups, unions, fraternal or athletic groups, or [...] Recorded Patient Health Questionnaire-2 Score 2 06/23/2023 [facility] - Occupational [...] Visit [facility] [address] [place] [address] Jr. Elvis Beal, DO [address] [place] [address] 10/17/2024 1:00 PM EDT Office Visit [facility] [address] [place] [address] Jenny Borrego NP [address] [place] [address] 04/18/2025 11:00 AM EST Office Visit [facility] [address] [place] [address] Jenny Borrego NP [address] [place] [address] documented as of this encounter Procedures Procedure Name Priority Date/Time Associated Diagnosis Comments SCANNED LABS Routine 09/27/2023 12:00 PM EDT documented in this encounter Results * SCANNED LABS (09/27/2023 12:00 PM EDT) us Jenny Borrego NP LAB CHG PERFORMABLES Final Resu lt documented in this encounter Visit Diagnoses Not on filedocumented in this encounter Additional Health Concerns Assessment Noted Time PHQ-9 Depression Total Score: 4 03/24/19 24 5:00 PM EST documented as of this encounter Care Teams Ict Developer Relationship Specialty Start Date End Date Ludin Blanchard MD [address] [place] [address] PCP - General Family Medicine 04/28/23 Jenny Borrego NP [address] [place] [address] Nurse Practitioner Family Medicine 12/27/22 documented as of this encounter
--- OUTSIDE RECORDS SUMMARY | 2024-08-27 12:56 | XMS_ITS | Patient Health Record ---
Author Organization [facility] Address [address] [place] [address] Care Team Providers Care Release Of Information Clerk Name Role Phone Malia Soliz Unavailable Reason For Referral Reason APPROVED............ ....................NOT SCHEDULED...................................HUMANA MCR mri lumbar to be done at [place] Diagnosis 1 Degeneration of inte rvertebral disc of lumbar region with discogenic back pain and lower extremity pain (M51.362) Referral Organization [facility] Referring Provider First Name Kimberli Referring Provider Last Name [facility] Referring Provider Speciality Orthopedic Surgery Referred Organization [facility] Referred Address [place], [place], Procedure 1 MRI Lumbar Spine w/o Dye ([id number]) General Notes Kelin Figueroa 2024 12:12:05 PM >, Rocio Arreola 07/27/2024 12:18:47 PM > WAITING ON TODAY'S OFFICE NOTE.Maxwell Kayla 08/01/2024 08:09:58 AM > WAITING ON 07/27 OFFICE NOTE, Rocio Arreola 08/02/2024 09:30:09 AM > STILL WAITING ON 07/27 OFFICE NOTE, Rocio Arreola 08/06/2024 01:55:07 PM > AUTHORIZATION # [id number] APPROVED AND VALID 08/07/24-10/04/24 PER COHERNick. SCANNED INTO CHART AND FAXED TO [facility].Marla Sara 08/06/2024 04:29:59 PM > faxed Referral Priority Routine Problems Problem Type SNOMED Code ICD Code Onset Dates Problem Status W/U Status Risk Notes Problem [id number] Degeneration of intervertebral disc of lumbosacral region with discogenic back pain and lower extremity pain (M51.372) Active confirmed Encounters Encounter Location Date Provider Diagnosis [facility] Office [address] [place] [place] [address] [place] [address] 07/27/2024 Malia [facility] Degeneration of intervertebral disc of lumbosacral region with discogenic back pain and lower extremity pain M51.372 Assessments Encounter Date Diagnosis (ICD Code) Assessment Notes Treatment Notes Treatment Clinical Notes Section Notes 07/27/2024 Degeneration of intervertebral disc of lumbosacral region with discogenic back pain and lower extremity pain (ICD-10 - M51.372) 1. L1-S1 degenerative disc disease with radiculopathy 2. Prior L4-5 surgery x 3 07/27/2024 Other Today I reviewed patient's x-rays with her and given her previous lumbar surgery and radicular symptoms in her right lower extremity I have ordered an MRI of the lumbar spine to further evaluate for any neural impingement. We will see the patient back in the office after imaging is complete to review and offer further recommendatio ns. The patient is very much in agreement with the treatment and/or diagnostic plan set forth and all questions were answered to the patient's satisfaction. Thanks once again. If we can be of further service to your patients with disorders of the spine, cervical, thoracic, or lumbar, please do not hesitate to contact Dr. Jenkins. 1. L1-S1 degenerative disc disease with radiculopathy 2. Prior L4-5 surgery x 3 Plan Of Treatment Pending Test Test Name Order Date Lumbar spine, 4v flex ext - [id number] 2024 MRI : Lumbosacral Spine W/O Contrast - 7 2148 07/27/2024 Next Appt Details Provider Name:Kimberli Thayer, 08/31/2024 10:30:00 AM, [address] [place] [address], [phone], Insurance Providers Payer Name Payer Address Payer Phone Subscriber Number Group Number Insured Name Patient Relationship to Insured Coverage Start Date Coverage End Date Medicare [employer] [address] [address] [place] [address] [id number] ELMER ELLIS Self - patient is the insured 5
--- OUTSIDE RECORDS SUMMARY | 2024-08-27 12:56 | XMS_ITS | Encounter Summary ---
Author Organization [facility] Address [address] [place] [address] Care Team Providers Care Professor Of Rhetoric Name Role Phone Jenny Borrego NP Unavailable [phone] Ludin Blanchard MD Primary Care Provider [phone] Encounter Details Date Type Department Care Team (Late st Contact Info) Description 09/15/2023 Clinisync Result Encounter [facility] External Department Unsolicited [...] often do you attend chur ch or taoism services? Never 03/24/2023 Do you belong to any clubs o r organizations such as cheondoism groups, unions, fraternal or athletic groups, or [...] Recorded Patient Health Questionnaire-2 Score 2 06/23/2023 [facility] Occupat ional Health - Occupational Stress [...] place to sleep or slept in a custodial (including now)? No 03/24/2023 Comments Unknown Sex [...] Office Visit [facility] [address] [place] [address] Jr. Malik Beal, [address] [facility] [address] [place] [address] 10/17/2024 1:00 PM EDT Office Visit [facility] [address] [place] [address] Jenny Borrego NP [address] [place] [address] 04/18/2025 11:00 AM EST Office Visit [facility] [address] [place] [address] Jenny Borrego NP [address] [place] [address] documented as of this encounter Procedures Procedure Name Priority Date/Time Associated Diagnosis Comments CA ECHO DOPPLER COMPLETE 09/15/2023 1:26 PM EDT ALL GAMMA GLUTAMYL TRANSPEPTIDASE Routine 09/15/2023 7:40 AM EDT documented in this encounter Results * CA ECHO DOPPLER COMPLETE (09/15/2023 1:26 PM EDT) Anatomical Region Laterality Modality Other 09/15/2023 1:26 PM EDT Narrative 09/15/2023 1:27 [place] [address] Cardiology Report Signed Patient: ELMER ELLIS MR#: [id number] : 1965 Acct:[id number] Age/Sex: 57 / F ADM Date: 09/15/23 Loc: CARD Attending Dr: MALIK NI Ordering Physician: MALIK NI Date of Service: 09/15/23 Procedure(s): CA echo doppler complete Accession Number(s): [id number] cc: Jenny Borrego CREDIT REPORTER; MALIK NI Patient Name: ELMER ELLIS MR#: [id number] : 1965 Exam Date: 09/15/2023 Ordering Doctor: DR MALIK NI M.D. ECHOCARDIOGRAM REPORT PROCEDURE: CA ECHO DOPPLER COMPLETE INDICATIONS: Dyspnea, edema, diabetes, smoker COMPARISON: None. DESCRIPTION: COMPLETE ECHOCARDIOGRAM Real-time transthoracic echocardiography with 2D, M-mode, spectral and color flow Doppler performed. QUALITY: Technical quality was adequate. LEFT VENTRICLE: Normal chamber size. Normal left ventricular wall thickness. LV EF: Global left ventricular systolic function is normal; visually estimated ejection fraction is 55 to 60%. Unable to assess regional wall motion abnormalities. Consider contrast study for better delineation of endocardial borders. DIASTOLIC: Normal diastolic function. ATRIAL SEPTUM: Inadequately seen. LEFT ATRIUM: Normal chamber size. RIGHT ATRIUM: Normal chamber size. RIGHT VENTRICLE: Normal chamber size. Normal right ventricular systolic function. TRICUSPID VALVE: Normal mobility and thickness. No stenosis with no regurgitation. MITRAL VALVE: Normal mobility and thickness. No evidence of mitral valve stenosis. There is no mitral annular calcification. Trivial mitral regurgitation. AORTIC VALVE: Normal trileaflet appearance. No visible sclerosis. Normal leaflet mobility. No evidence of aortic valve stenosis. No aortic regurgitation. AORTIC ROOT: Normal diameter and appearance. Ascending aorta is normal in size. PULMONIC VALVE: Normal thickness and mobility. No stenosis. No regurgitation. PERICARDIUM: Anterior free space; trivial effusion versus fat pad IVC: Not well visualized. CONCLUSION: 1. Global left ventricular systolic function is normal; visually estimated ejection fraction is 55 to 60% 2. Normal right ventricular size and systolic function 3. Normal diastolic function 4. The left atrium is normal in size 5. Valves are poorly seen; no significant valvular abnormalities 6. Anterior free space; trivial effusion versus fat pad Adult Echocardiography Procedure Report Left Ventricle LVEDD (3.7 - 5.6 cm): 4.41 cm LVESD (2.2 - 4.0 cm): 3.02 cm LVIVS thickness (0.6 - 1.2 cm): 1.01 cm LVPW thickness (0.5 - 1.0 cm): 0.98 cm E - e': 8.31 LVOT Max Gradient: 1.63 mm[Hg] LVOT Area (cm2): 0.64 m/s Peak Velocity (LVOT): 0.64 m/s Mean Velocity (LVOT): 0.41 m/s LVOT Diameter 2.12 cm Left Atrium LA Volume Index (2D A2C): 24.48 ml/m2 Left Atrium Systolic Dimension: 3.90 cm Mitral Valve MV E to A Ratio: 1.08 Mitral Valve A-Wave Peak Velocity: 0.69 m/s Mitral Valve E-Wave Peak Velocity: 0.74 m/s Right Ventricle Aorta AO Root Diam: 3.01 cm Ascending Ao Diam: 2.71 cm Aortic Valve AoV Area (Peak Chris): 1.81 cm2, 1.81 cm2 AoV Area (VTI): 2.01 cm2, 2.01 cm2 Peak Velocity(Antegrade Flow): 1.24 m/s Peak Gradient(Antegrade Flow): 6.14 mm[Hg] Mean Velocity(Antegrade Flow): 0.84 m/s Mean Gradient(Antegrade Flow): 3.15 mm[Hg] Velocity Time Integral: 27.83 cm Tricuspid Valve Pulmonic Valve Mean Gradient: 1.79 mm[Hg] Mean Velocity: 0.63 m/s Peak Velocity: 0.87 m/s, 0.95 m/s Peak Gradient: 3.62 mm[Hg], 3.05 mm[Hg] Right Atrium Right Atrium Systolic Pressure: 42.53 ml, 42.53 ml Dictated by: Jose Alberto Hyde M.D. on 09/15/2023 at 13:20 Approved by: Jose Alberto Hyde M.D. on 09/15/2023 at 13:26 Dictated By: Jose Alberto Hyde M.D. Signed By: 09/15/23 1327 DD/ 1326 TD/TT: Ranch Hand Supervisor: Procedure Note Radiology, Radiologist, MD - 09/15/2023 [place] [address] Cardiology Report Signed Patient: ELMER ELLIS MMR#: [id number] : 1965Acct:[id number] Age/Sex: 57 / FADM Date: 09/15/23 Loc: CARD Attending Dr: MALIK NI Ordering Physician: MALIK NI Date of Service: 09/15/23 Procedure(s): CA echo doppler complete Accession Number(s): [id number] cc: Jenny Borrego NP; MALIK NI Patient Name: ELMER ELLIS MR#: [id number] : 1965 Exam Date: 09/15/2023 Ordering Doctor: DR MALIK NI M.D. ECHOCARDIOGRAM REPORT PROCEDURE: CA ECHO DOPPLER COMPLETE INDICATIONS: Dyspnea, edema, diabetes, smoker COMPARISON: None. DESCRIPTION: COMPLETE ECHOCARDIOGRAM Real-time transthoracic echocardiography with 2D, M-mode, spectral and color flow Dopplerperformed. QUALITY: Technical quality was adequate. LEFT VENTRICLE: Normal chamber size. Normal left ventricular wall thickness. LV EF: Global left ventricular systolic function is normal; visually estimated ejection fraction is 55 to 60%. Unable to assess regional wall motion abnormalities. Consider contrast study for better delineation of endocardial borders. DIASTOLIC: Normal diastolic function. ATRIAL SEPTUM: Inadequately seen. LEFT ATRIUM: Normal chamber size. RIGHT ATRIUM: Normal chamber size. RIGHT VENTRICLE: Normal chamber size. Normal right ventricularsystolic function. TRICUSPID VALVE: Normal mobility and thickness. No stenosis with no regurgitation. MITRAL VALVE: Normal mobility and thickness. No evidence of mitralvalve stenosis. There is no mitral annular calcification. Trivial mitral regurgitation. AORTIC VALVE: Normal trileaflet appearance. No visible sclerosis.Normal leaflet mobility. No evidence of aortic valve stenosis. No aortic regurgitation. AORTIC ROOT: Normal diameter and appearance. Ascending aorta is normalin size. PULMONIC VALVE: Normal thickness and mobility. No stenosis. No regurgitation. PERICARDIUM: Anterior free space; trivial effusion versus fat pad IVC: Not well visualized. CONCLUSION: 1. Global left ventricular systolic function is normal; visually estimated ejection fraction is 55 to 60% 2. Normal right ventricular size and systolic function 3. Normal diastolic function 4. The left atrium is normal in size 5. Valves are poorly seen; no significant valvular abnormalities 6. Anterior free space; trivial effusion versus fat pad Adult Echocardiography Procedure Report Left Ventricle LVEDD (3.7 - 5.6 cm): 4.41 cm LVESD (2.2 - 4.0 cm): 3.02 cm LVIVS thickness (0.6 - 1.2 cm): 1.01 cm LVPW thickness (0.5 - 1.0 cm): 0.98 cm E - e': 8.31 LVOT Max Gradient: 1.63 mm[Hg] LVOT Area (cm2): 0.64 m/s Peak Velocity (LVOT): 0.64 m/s Mean Velocity (LVOT): 0.41 m/s LVOT Diameter 2.12 cm Left Atrium LA Volume Index (2D A2C): 24.48 ml/m2 Left Atrium Systolic Dimension: 3.90 cm Mitral Valve MV E to A Ratio: 1.08 Mitral Valve A-Wave Peak Velocity: 0.69 m/s Mitral Valve E-Wave Peak Velocity: 0.74 m/s Right Ventricle Aorta AO Root Diam: 3.01 cm Ascending Ao Diam: 2.71 cm Aortic Valve AoV Area (Peak Chris): 1.81 cm2, 1.81 cm2 AoV Area (VTI): 2.01 cm2, 2.01 cm2 Peak Velocity(Antegrade Flow): 1.24 m/s Peak Gradient(Antegrade Flow): 6.14 mm[Hg] Mean Velocity(Antegrade Flow): 0.84 m/s Mean Gradient(Antegrade Flow): 3.15 mm[Hg] Velocity Time Integral: 27.83 cm Tricuspid Valve Pulmonic Valve Mean Gradient: 1.79 mm[Hg] Mean Velocity: 0.63 m/s Peak Velocity: 0.87 m/s, 0.95 m/s Peak Gradient: 3.62 mm[Hg], 3.05 mm[Hg] Right Atrium Right Atrium Systolic Pressure: 42.53 ml, 42.53 ml Dictated by: Jose Alberto Hyde M.D. on 09/15/2023 at 13:20 Approved by: Jose Alberto Hyde M.D. on 09/15/2023 at 13:26 Dictated By: Jose Alberto Hyde M.D. Signed By:09/15/23 1327 DD/ 25 TD/TT: Ranch Hand Supervisor: us Generic External Data Provider [facility] Final Result * (ABNORMAL) ALL GAMMA GLUTAMYL TRANSPEPTIDASE (09/15/2023 7:40 AM EDT) GAMMA GLUTAMYL TRANSPEPTIDASE 65(H) 8 - 55 U/L [facility] 09/15/2023 7:40 AM EDT 09/15/2023 6:29 PM EDT Narrative [facility] - 09/15/2023 6:45 PM EDT us Jenny Borrego NP [facility] Final [facility] documented in this encounter Visit Diagnoses Not on filedocumented in this encounter Additional Health Concerns Assessment Noted Time PHQ-9 Depression Total Score: 4 03/24/19 24 5:00 PM EST documented as of this encounter Care Teams Professor Of Rhetoric Relationship Specialty Start Date End Date Ludin Blanchard MD [address] [place] [address] PCP - General Family Medicine 04/28/23 Jenny Borrego NP [address] [place] [address] Nurse Practitioner Family Medicine 12/27/22 documented as of this encounter
--- OUTSIDE RECORDS SUMMARY | 2024-08-27 12:56 | XMS_ITS | Encounter Summary ---
Author Organization [facility] Address [address] [place] [address] Care Team Providers Care Managing Partner Digital Content Marketing [place] Name Role Phone Jenny Borrego LIFE SKILLS COORDINATOR VOLUNTEER Unavailable [phone] Ludin Blanchard MD Primary Care Provider Encounter Details Date Type Department Care Team (Late st Contact Info) Description 07/30/2024 Abstract [facility] [address] [place] [address] Jenny Borrego NP [address] [place] [address] Social History Tobacco Use Types Packs/Day Years [...] How often do you attend chur or caodaism services? Never 03/24/2023 Do you belong to any clubs o r organizations such as orthodoxy groups, unions, fraternal or athletic groups, or [...] Recorded Patient Health Questionnaire-2 Score 1 04/17/2024 [facility] of Occupat ional Health - [...] place to sleep or slept in a usp (including now)? No 03/24/2023 Comments Unknown Sex [...] Office Visit [facility] [address] [place] [address] Jr. Elvis Beal, DO [address] [place] [address] 10/17/2024 1:00 PM EDT Office Visit [facility] [address] [place] [address] Jenny Borrego NP [address] [place] [address] 04/18/2025 11:00 AM EST Office Visit [facility] [address] [place] [phone] Jenny Borrgeo, ZELALEM [address] [place] [address] documented as of this encounter Visit Diagnoses Not on filedocumented in this encounter Additional Health Concerns Assessment Noted Time PHQ-9 Depression Total Score: 4 04/17/19 25 1:00 PM EST documented as of this encounter Care Teams Managing Partner Digital Content [employer] [place] Relationship Specialty Start Date End Date Ludin Blanchard MD [address] [place] [address] PCP - General Family Medicine 04/28/23 Jenny Borrego NP [address] [place] [address] Nurse Practitioner Family Medicine 12/27/22 documented as of this encounter
--- OUTSIDE RECORDS SUMMARY | 2024-08-27 12:56 | XMS_ITS | Encounter Summary ---
Author Organization [facility] Address [address] [place] [address] Care Team Providers Care Corporate Buyer Name Role Phone Deondre Roth, Dawit [place] Primary Care Provider + Source Comments In the event this information is protected by the Federal Confidentiality of Alcohol and Drug AbusePatient Records regulations: The Federal rules restrict any use of the information to criminally investigate or prosecute any alcohol or drug abuse patient.[facility] Encounter Details Date Type Department Care Team (Late st Contact Info) Description 05/20/2022 Get Medical Advice Urology [address] [phone] Uri Pickens MD [address] [place] [address] Letter Social History Tobacco Use Types Packs/Day [...] N ot on file 03/08/2022 Data from: https://www.neighborhoodatlas.[facility]/. Last address used for calculation [address] [facility] 03/08/2022 Comments Unknown Sex and Gender Information Value Date Recorded Sex Assigned at Female 07/30/2024 2:43 PM EDT Legal Sex Female 1:44 PM EDT Gender Identity Female 07/30/2024 2:43 PM EDT Sexual Orientation Not on file documented as of this encounter Plan of Treatment Upcoming Encounters Date Type Department Care Team (Latest Contact Info) Description 08/28/2024 2:30 PM EDT [facility] Urology [address] [address] Uri Pickens MD [address] [address] Virtual visit please tests results documented as of this encounter Visit Diagnoses Not on filedocumented in this encounter Care Teams Corporate Buyer Relationship Specialty Start Date End Date Dawit Mendosa Sr., PCP - General Family Medicine 10/24/14 documented as of this encounter
--- OUTSIDE RECORDS SUMMARY | 2024-08-27 12:56 | XMS_ITS | Encounter Summary ---
Author Organization [facility] Address [address] [place] [address] Care Team Providers Care Health Technical Writer Name Role Phone Deondre Roth, Dawit [place] Primary Care Provider + Source Comments In the event this information is protected by the Federal Confidentiality of Alcohol and Drug AbusePatient Records regulations: The Federal rules restrict any use of the information to criminally investigate or prosecute any alcohol or drug abuse patient.[facility] Encounter Details Date Type Department Care Team (Late st Contact Info) Description 05/08/2022 Get Medical Advice Urology [address] [phone] Uri Pickens MD [address] [place] [address] Letter Social History Tobacco Use Types Packs/Day [...] N ot on file 03/08/2022 Data from: https://www.neighborhoodatlas.[facility]/. Last address used for calculation [address] [facility] 03/08/2022 Comments Unknown Sex and Gender Information Value Date Recorded Sex Assigned at Female 07/30/2024 2:43 PM EDT Legal Sex Female 1:44 PM EDT Gender Identity Female 07/30/2024 2:43 PM EDT Sexual Orientation Not on file documented as of this encounter Plan of Treatment Upcoming Encounters Date Type Department Care Team (Latest Contact Info) Description 08/28/2024 2:30 PM EDT [facility] Urology [address] [address] Uri Pickens MD [address] [address] Virtual visit please tests results documented as of this encounter Visit Diagnoses Not on filedocumented in this encounter Care Teams Health Technical Writer Relationship Specialty Start Date End Date Dawit Mendosa Sr., PCP - General Family Medicine 10/24/14 documented as of this encounter
--- OUTSIDE RECORDS SUMMARY | 2024-08-27 12:56 | XMS_ITS | Clinical Summary ---
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 Active Continuous Blood Gluc Sensor (FreeStyle Joelle 2 Sensor) [facility] USE TO TEST BLOOD SUGAR 4 TIMES DAILY 3 Active metoprolol succinate XL (Toprol-XL) 25 MG 24 hr tablet Take 25 mg by mouth in the morning. 3 Active folic acid (Folvite) 1 MG tablet Take 1,000 mcg by mouth Daily 4 Active cyanocobalamin (Vitamin B-12) 50 MCG tablet Take 50 mcg by mouth in the morning. Pt takes 1000 mg daily. Active insulin aspart protamine-insulin aspart (NovoLOG MIX 70/30 FLEXPEN) (70-30) 100 UNIT/ML injectionIndicati ons:Type 2 diabetes mellitus without complications (HCC) Inject 75 Units under the skin in the morning and 75 Units in the evening. Inject with meals. 135 mL 1 5 Active insulin pen needle (B-D UF III MINI PEN NEEDLES) 31G x 5 mm miscIndications:T ype 2 diabetes mellitus with insulin therapy (HCC) Twice a day use 200 each 4 5 Active dapagliflozin (Farxiga) 10 MGIndications:Typ e 2 diabetes mellitus with diabetic neuropathy, with long-term current use of insulin (HCC) Take 1 tablet (10 mg) by mouth in the morning. 90 tablet 1 5 Active fluticasone (Flonase) 50 MCG/ACT nasal sprayIndications: Environmental and seasonal allergies Administer 2 sprays into each nostril Daily Shake gently. Before first use, prime pump. After use, clean tip and replace cap. 48 g 1 5 Active furosemide (Lasix) 40 MG tabletIndications :Bilateral lower extremity edema Take 1 tablet (40 mg) by mouth Daily 90 tablet 1 5 Active methocarbamol (Robaxin) 500 MG tabletIndications :Chronic back pain, unspecified back location, unspecified back pain laterality Take 1 tablet (500 mg) by mouth every 12 (twelve) hours if needed for muscle spasms 60 tablet 3 5 Active DULoxetine (Cymbalta) [address] capsuleIndication s:Type 2 diabetes mellitus with diabetic neuropathy, unspecified (HCC),Anxiety and depression Take 1 capsule (60 mg) by mouth Daily Total daily dose is 90mg 90 capsule 1 5 08/31/19 25 Active DULoxetine (Cymbalta) [address] capsuleIndication s:Type 2 diabetes mellitus with diabetic neuropathy, unspecified (HCC),Anxiety and depression,Diabet ic neuropathy, painful (HCC) Take 1 capsule (30 mg) by mouth Daily Total dose is 90mg daily 90 capsule 1 5 09/10/19 25 Active pregabalin (Lyrica) 100 MG capsuleIndication s:Type 2 diabetes mellitus with diabetic neuropathy, with long-term current use of insulin (HCC) Take 1 capsule (100 mg) by mouth every 8 (eight) hours 90 capsule 2 5 Active rivaroxaban (Xarelto) 10 MG tablet Take 10 mg by mouth in the morning. 5 Active clopidogrel (Plavix) 75 MG tablet Take 75 mg by mouth Daily 5 Active ferrous sulfate 325 (65 Fe) MG tabletIndications :Anemia, unspecified TAKE 1 TABLET (325 MG) BY MOUTH IN THE MORNING. TAKE WITH MEALS. 90 tablet 1 5 09/27/19 25 Active albuterol HFA 90 mcg/act inhalerIndication s:Bronchitis Inhale 2 puffs every 6 (six) hours if needed for shortness of breath or wheezing 18 g 1 5 Active atorvastatin (Lipitor) 80 MG tabletIndications :Hypertriglycerid emia Take 1 tablet (80 mg) by mouth at bedtime 90 tablet 1 5 10/16/19 25 Active cetirizine (ZyrTEC) 10 MG tabletIndications :Environmental and seasonal allergies Take 1 tablet (10 mg) by mouth Daily 90 tablet 1 5 10/16/19 25 Active pantoprazole (ProtoNix) 40 MG EC tabletIndications :Gastroesophageal reflux disease without esophagitis Take 1 tablet (40 mg) by mouth in the morning. Take before meals. 90 tablet 1 5 10/16/19 25 Active Active Problems Problem Noted Date Diagnosed Date Atherosclerosis of [place] teries of extremities with rest pain, right leg 07/17/2024 Overview (07/17/2024): Noted by LAST Vargas MD last documented on [id number] Activated protein C resistance ([facility]) 025 Overview (07/17/2024): Noted by CHIDI Ortiz CNP last documented on [id number] Bronchitis 06/13/2024 Assessment & Plan (06/13/2024 5:29 PM EDT): Stop amox Start cefdinir, will hold on steroids d/t blood sugar Add albuterol and tessalon Fluids, rest if not better go to ER Is taking allergy pill, no nasal steroids, will restart this Pharyngitis 06/08/2024 Hyperkalemia 05/03/2024 Pre-operative clearance 04/18/2024 Assessment & Plan (04/18/2024 12:52 PM EST): Pt is scheduled for a meniscus repair next week with Dr Beal. His office contacted our office regarding needing a pre operative clearance statement: Pt has insulin dependant diabetic with recent A1c of 7.4% on 04/17/24 HTN: well controlled CAD /PAD: this is under the management of Cardiology and a statement regarding her pre operative clearance would need to come from them. As well as a statement regarding her anti coagulation Factor V Lieden and hx of DVT: would recommend coverage with possible lovenox unless cardiology states otherwise ELENA: has diagnosis , however does not wear mask Body mass index (BMI) 45.0-49.9, adult Mixed hyperlipidemia 04/17/2024 Assessment & Plan (07/17/2024 7:08 AM EDT): On statin therapy Check labs yearly and prn dose changes Assessment & Plan (04/17/2024 6:52 AM EST): On statin therapy Check labs yearly and prn dose changes Type 2 diabetes mellitus wit h diabetic chronic kidney disease 01/16/2024 Assessment & Plan (04/17/2024 6:47 AM EST): Lab monitoring and goal of adequate blood sugar and blood pressure control Chronic kidney disease, stage 3a 01/16/2024 Assessment & Plan (06/13/2024 7:35 AM EDT): Risk factor modification Keep DM and HTN near goal Assessment & Plan (04/17/2024 6:44 AM EST): Risk factor modification Keep DM and HTN near goal Assessment & Plan (01/16/2024 7:31 AM EST): Risk factor modification Keep DM and HTN near goal Primary hypertension 01/16/2024 Assessment & Plan (07/17/2024 7:04 AM EDT): Please check blood pressure daily and record DASH diet Limit caffeine Take medication as directed Contact office if chest pain, pressure, dizziness, shortness of breath, swelling legs Recommend slow position changes Current meds: b zhao, Assessment & Plan (06/13/2024 7:35 AM EDT): Please check blood pressure daily and record DASH diet Limit caffeine Take medication as directed Contact office if chest pain, pressure, dizziness, shortness of breath, swelling legs Recommend slow position changes Current meds: b zhao, Assessment & Plan (04/17/2024 6:43 AM EST): Please check blood pressure daily and record DASH diet Limit caffeine Take medication as directed Contact office if chest pain, pressure, dizziness, shortness of breath, swelling legs Recommend slow position changes Current meds: b zhao, Assessment & Plan (01/16/2024 7:31 AM EST): Please check blood pressure daily and record DASH diet Limit caffeine Take medication as directed Contact office if chest pain, pressure, dizziness, shortness of breath, swelling legs Recommend slow position changes Encounter for screening mamm ogram for malignant neoplasm of breast 01/16/2024 Assessment & Plan (04/17/2024 6:51 AM EST): Mammogram was ordered 01/14, still not completed Would recommend getting this done and will order DEXA too Dizziness and giddiness 11/24/2023 Atherosclerosis of aorta 10/20/2023 Assessment & Plan (10/20/2023 7:30 AM EDT): Continue aggressive CV risk factor mgmt PAD (peripheral artery disease) 09/21/2023 Assessment & Plan (07/17/2024 7:04 AM EDT): Continue anti coagulation, statin therapy Recommend adequate BP and DM control Assessment & Plan (04/17/2024 6:43 AM EST): Continue anti coagulation, statin therapy Assessment & Plan (01/16/2024 7:29 AM EST): Continue anti coagulation, statin therapy Elevated alkaline phosphatase level 09/15/2023 Bilateral lower extremity edema 06/23/2023 Assessment & Plan (04/17/2024 6:44 AM EST): Limit sodium intake, elevate legs as much as possible Current meds: lasix Assessment & Plan (10/20/2023 8:52 PM EDT): stable Environmental and seasonal allergies 06/23/2023 Assessment & Plan (06/23/2023 11:39 AM EDT): Add cetirzine and nasal spray Likely the cause of her ear pain, has fluid, not infectious looking Gastroesophageal reflux disease without esophagi tis 05/23/2023 Assessment & Plan (07/17/2024 7:04 AM EDT): Recommendations: freq small meals, nothing to eat or drink at least 2 hours prior to bed, limit caffeine, alcohol, as well as spicy foods Meds to limit or avoid if possible: NSAIDS Elevate HOB if possible Continue PPI therapy Assessment & Plan (01/16/2024 7:30 AM EST): Recommendations: freq small meals, nothing to eat or drink at least 2 hours prior to bed, limit caffeine, alcohol, as well as spicy foods Meds to limit or avoid if possible: NSAIDS Elevate HOB if possible Continue PPI therapy Assessment & Plan (06/23/2023 11:35 AM EDT): No changes in meds Other acute sinusitis 04/05/2023 Type 2 diabetes mellitus with insulin therapy Assessment & Plan (07/17/2024 1:42 PM EDT): Discussion with pt about her current insulin [...] pancreatitis Current med: insulin, statin, and asa A1c: 7.1% 07/17/24 ( 7.4 in 04/17/24, prior was 8.3%) Low blood sugars, related to insulin dose time, will have her changes and see if better Assessment & Plan (06/13/2024 7:35 AM EDT): Discussion with pt about her current insulin [...] asa A1c 7.4% 04/17/24 (prior was 8.3%) Assessment & Plan (04/17/2024 1:43 PM EST): Discussion with pt about her current insulin [...] change that to breakfast and supper time Assessment & Plan (01/16/2024 2:14 PM EST): Discussion with pt about her current insulin [...] GLP 1's d/t pancreatitis No dose changes Assessment & Plan (10/20/2023 8:51 PM EDT): Discussion with pt about her current insulin [...] diet low in carbohydrates, and simple sugars. Assessment & Plan (06/23/2023 11:35 AM EDT): Check blood sugars daily, notify if <70 [...] simple sugars. Check A1c test later in June Assessment & Plan (03/24/2023 7:07 PM EST): Check blood sugars daily, notify if <70 [...] test later in March Encounter for annual wellnes s visit (AWV) in Medicare patient 03/24/2023 Assessment & Plan (04/17/2024 6:23 PM EST): Reviewed Ht/Wt/BMI Recommend eye exam yearly Recommend dental exams twice a year Balance work/leisure activities Exercises is recommended most days of the week (appropriate as chronic conditions allow) Hand out on Living Will and HCPOA Follow up yearly and prn Assessment & Plan (03/24/2023 7:10 PM EST): Reviewed Ht/Wt/BMI Recommend eye exam yearly Recommend dental exams twice a year Balance work/leisure activities Exercises is recommended most days of the week (appropriate as chronic conditions allow) Follow up yearly and prn Type 2 diabetes mellitus wit h diabetic neuropathy, with long-term current use of insulin 02/25/2023 Assessment & Plan (07/17/2024 7:03 AM EDT): Freq foot checks for wounds, callouses, or s/s infection Recommend proper fitting shoes as well Continue with pregabalin and adequate blood sugar control OARRS reviewed Assessment & Plan (04/17/2024 6:41 AM EST): Freq foot checks for wounds, callouses, or s/s infection Continue with pregabalin and adequate blood sugar control OARRS reviewed Assessment & Plan (01/16/2024 7:28 AM EST): Continue with pregabalin OARRS reviewed Assessment & Plan (06/23/2023 11:33 AM EDT): OARRS reviewed We will stop ayan, and trial lyrica at 100mg TID, for 5 days take 1 pill twice a day, then increase to every 8 hours Fu in 6-8 weeks Anxiety and depression 02/02/2023 Assessment & Plan (07/17/2024 7:09 AM EDT): Current meds: duloxetine Assessment & Plan (04/17/2024 6:23 PM EST): Current meds: duloxetine PHQ 9=13 JUAN 7=11 Does not feel dose needs adjusted, her mood and anxiety are worsened as she has been having ongoing knee pain and following with Ortho, and is to have surgery next week for meniscus repair 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 02/02/2023 Assessment & Plan (04/17/2024 6:47 AM EST): Recommend yearly eye exam as well as adequate blood glucose control Assessment & Plan (01/16/2024 2:02 PM EST): Recommend tight blood sugar control Needs eye exam Gallstone 02/02/2023 Incomplete bladder emptying 02/02/2023 Abnormal stress test 02/02/2023 Malignant neoplasm of unspec ified kidney, except renal pelvis 02/02/2023 Assessment & Plan (04/17/2024 6:44 AM EST): Continue with specialty for monitoring Assessment & Plan (03/24/2023 7:07 PM EST): Continue with specialty for monitoring Chronic back pain 02/02/2023 Unspecified chronic bronchitis 02/02/2023 Assessment & Plan (04/17/2024 6:42 AM EST): Recommend quitting smoking Chronic cough 02/02/2023 Family history of lung cancer 02/02/2023 ELENA (obstructive sleep apnea) 02/02/2023 Assessment & Plan (07/17/2024 7:03 AM EDT): You have a diagnosis of obstructive sleep apnea. It is recommended that you wear your PAP device any time while in bed sleeping. Not using the PAP device can increase your risk of elevated/uncontrolled high blood pressure, atrial fibrillation, heart attack, stroke, or sudden . Compliance with PAP: How many hours of use per night: Do you feel more refreshed in the morning: Company that supplies your machine and tubing/filters etc: Doctor that manages your ELENA: Assessment & Plan (04/17/2024 6:40 AM EST): .PASHTO Assessment & Plan (01/16/2024 2:20 PM EST): Is working with dr rm for testing Assessment & Plan (06/23/2023 11:37 AM EDT): Has not been wearing a PAP machine for some time, would like to get sleep study re ordered and go from there Osteoporosis 02/02/2023 Overview (07/17/2024): DEXA: 05/03/24: -1.8 Assessment & Plan (04/17/2024 6:45 AM EST): DEXA scan will order History of varicose veins 02/02/2023 Anemia 10/05/2022 Chondromalacia of left patella 10/05/2022 Intestinal malabsorption, unspecified 10/05/2022 Class 3 severe obesity with serious comorbidity and body mass index (BMI) of 45.0 to 49.9 in adult 10/05/2022 Assessment & Plan (07/17/2024 1:43 PM EDT): Discussed with patient their BMI (actual, verses recommended). We have also discussed lifestyle modifications: attempts to perform physical activity as chronic conditions allow, also to monitor dietary intake: increasing protein/fruits/veggies and lowering carb intake (unless contraindicated). Limit sodas, juices, and sugary drinks. Chronic conditions and PMH limit many options for med treatment, and also physical activity Recommend WW Assessment & Plan (06/13/2024 7:35 AM EDT): Discussed with patient their BMI (actual, verses recommended). We have also discussed lifestyle modifications: attempts to perform physical activity as chronic conditions allow, also to monitor dietary intake: increasing protein/fruits/veggies and lowering carb intake (unless contraindicated). Limit sodas, juices, and sugary drinks. Chronic conditions and PMH limit many options for med treatment, and also physical activity Assessment & Plan (04/17/2024 6:46 AM EST): Discussed with patient their BMI (actual, verses recommended). We have also discussed lifestyle modifications: attempts to perform physical activity as chronic conditions allow, also to monitor dietary intake: increasing protein/fruits/veggies and lowering carb intake (unless contraindicated). Limit sodas, juices, and sugary drinks. Chronic conditions and PMH limit many options for med treatment, and also physical activity Assessment & Plan (01/16/2024 2:01 PM EST): Discussed with patient their BMI (actual, verses recommended). We have also discussed lifestyle modifications: attempts to perform physical activity as chronic conditions allow, also to monitor dietary intake: increasing protein/fruits/veggies and lowering carb intake (unless contraindicated). Limit sodas, juices, and sugary drinks. Internal derangement of left knee 10/05/2022 Internal derangement of right knee 10/05/2022 Primary osteoarthritis of right knee 10/05/2022 Osteoarthritis of knee 10/05/2022 Factor V Leiden ([facility]-HCC) 04/19/2022 Assessment & Plan (04/17/2024 6:24 PM EST): Is on xarelto normally, temporary change to eliqus until we can possibly get Xarelto through Pt Assistance Forms have been completed, received a denial they want her to apply for Part D medicare, she has been denied this We will try to see about eliquis then Assessment & Plan (01/16/2024 7:33 AM EST): Is on xarelto Kidney problem 04/19/2022 Renal mass 04/19/2022 Tobacco user 04/19/2022 Overview (02/02/2023): Added secondary to documentation in Social History. Assessment & Plan (07/17/2024 7:06 AM EDT): The patient has been advised of the risks of continued smoking: stroke, NH, all forms of cancer, lung disease, and . Options for quitting smoking include: cold turkey, hypnosis, acupuncture, nicotine replacement meds (gum, lozenges, and patches), Buproprion, and Varenicline. At this time pt is encouraged to evaluate their goals for wanting to quit smoking, and reach out to provider when ready to start this process Assessment & Plan (04/17/2024 6:51 AM EST): The patient has been advised of the risks of continued smoking: stroke, NH, all forms of cancer, lung disease, and . Options for quitting smoking include: cold turkey, hypnosis, acupuncture, nicotine replacement meds (gum, lozenges, and patches), Buproprion, and Varenicline. At this time pt is encouraged to evaluate their goals for wanting to quit smoking, and reach out to provider when ready to start this process Assessment & Plan (03/24/2023 7:06 PM EST): Recommend quitting, pt declines CAD in [place] artery 04/27/2019 Assessment & Plan (04/17/2024 6:42 AM EST): Cont statin, b zhao, asa, cardiology Aggressive risk factor modification Assessment & Plan (01/16/2024 7:30 AM EST): Cont statin, b zhao, asa, cardiology Aggressive risk factor modification Assessment & Plan (10/20/2023 8:52 PM EDT): Continue statin, anti coagulation Cont with cardiology Assessment & Plan (06/23/2023 11:35 AM EDT): Stable no med changes Assessment & Plan (03/24/2023 7:06 PM EST): No acute angina symptoms Cont current meds Goal: control BP, diabetes, lipids, and QUIT smoking Dyspnea on exertion 04/27/2019 History of DVT (deep vein thrombosis) 04/27/2019 Intermittent palpitations 04/27/2019 Resolved Problems Problem Noted Date Diagnosed Date Resolved Date Morbid (severe) obesity due to excess calories 04/17/2024 04/17/2024 Abscess 07/22/2023 10/20/2023 Arthritis 02/02/2023 10/20/2023 Abnormal PFT 02/02/2023 10/20/2023 Allergies 02/02/2023 06/23/2023 Tobacco dependence 02/02/2023 Diabetes mellitus type 2 in obese 02/02/2023 02/25/2023 Diabetic neuropathy, painful 02/02/2023 01/16/2024 Assessment & Plan (06/23/2023 11:35 AM EDT): OARRS reviewed Stop ayan, trial lyrica High cholesterol 02/02/2023 04/17/2024 History of kidney cancer 02/02/202302/2023 Mucopurulent chronic bronchitis 02/02/2023 04/17/2024 Neuropathy 02/02/2023 01/16/2024 Pneumonia 02/02/2023 03/24/2023 Sinusitis 02/02/2023 03/24/2023 Assessment & Plan (02/02/2023 3:06 PM EST): Will treat with atb Fluids, rest, fu if not better Yeast infection of the vagina 02/02/2023 10/20/2023 Arthritis of left acromioclavicular joint 10/05/2022 10/20/2023 Coronary atherosclerosis 04/27/2019 Hypertriglyceridemia 04/27/2019 025 Peripheral vascular disease, unspecified 04/27/2019 01/16/2024 Assessment & Plan (10/20/2023 7:30 AM EDT): Recent stent placement Encounters Date Type Department Care Team Description 07/30/2024 Telephone [facility] [address] [place] [address] Jr. Elvis Beal DO pain mgmt 07/30/2024 Abstract [facility] [address] [place] [address] Jenny Borrego NP 07/17/2024 1:00 PM EDT Office Visit [facility] [address] [place] [address] Jenny Borrego, ZELALEM Type 2 diabetes mellitus with diabetic neuropathy, with long-term current use of insulin (HCC) (Primary Dx); ELENA (obstructive sleep apnea); PAD (peripheral artery disease); Primary hypertension ; Gastroesophageal reflux disease without esophagitis; Class 3 severe obesity due to excess calories with serious comorbidity and body mass index (BMI) of 45.0 to 49.9 in adult ([facility]); Type 2 diabetes mellitus with insulin therapy (HCC); Tobacco user; Mixed hyperlipidemia ; Anxiety and depression ; Hypertriglyceridemia ; Environmental and seasonal allergies 07/17/[address] [facility] [address] [place] [address] Jenny Borrego, ZELALEM 07/17/[address] [facility] [address] [place] [address] Jenny Borrego, ZELALEM 07/05/[address] [facility] [address] [place] [address] Jenny Borrego, ZELALEM Bronchitis 07/03/2024 9:30 AM EDT Office Visit [facility] [address] [place] [id number] Jr. Elvis Beal, Acute pain of right knee (Primary Dx); History of arthroscopy of right knee 07/03/2024 Bamboo flowsheet [facility] [address] [place] [address] Jr. Elvis Beal, 07/03/2024 Travel 06/28/[address] [facility] [address] [place] [address] Jenny Borrego, BILINGUAL SPEECH THERAPIST Anemia, unspecified 06/13/2024 4:00 PM EDT Office [facility] [address] [place] [address] Jenny Borrego NP Bronchitis (Primary Dx); Primary hypertension ; Chronic kidney disease, stage 3a ([facility]); Class 3 severe obesity due to excess calories with serious comorbidity and body mass index (BMI) of 45.0 to 49.9 in adult ([facility]); Type 2 diabetes mellitus with insulin therapy (HCC) 06/13/[address] [facility] [address] [place] [address] Jenny Borrego NP 06/07/2024 [facility] [address] [place] [phone] Jenny Borrego NP Pharyngitis, unspecified etiology (Primary Dx); Type 2 diabetes mellitus with diabetic neuropathy, with long-term current use of insulin (HCC) 06/05/2024 9:30 AM EDT Office Visit [facility] [address] [facility] [phone] Jr. Elvis Beal, Acute pain of right knee (Primary Dx); History of arthroscopy of right knee 06/05/2024 [employer] flowsheet [facility] [place] [id number] Jr. Elvis Beal, 06/05/2024 Travel 05/31/2024 Refill [facility] [address] [place] [address] Jenny Borrego NP Type 2 diabetes mellitus with diabetic neuropathy, unspecified ([facility]); Anxiety and depression ; Diabetic neuropathy, painful (HCC) 05/28/2024 [facility] [address] [place] [phone] Jenny Borrego NP Chronic back pain, unspecified back location, unspecified back pain laterality from Last 3 Months Immunizations Immunization Administration Dates Next Due Influenza, Injectable, MDCK, preservative free 12/20/2023 Influenza, Unspecified 11/21/2020,11/12/2020 Influenza, injectable, MDCK, preservative free, quadrivalent 12/18/2021 Influenza, injectable, quadr ivalent, preservative free 12/01/2022,02/25/2021,10/17/2018,11/23,10/20/2017,11/22/2016,11/06/2016 Influenza, seasonal, injectable 11/21/2020 Pfizer Purple Cap SARS-CoV-2 Vaccination 02/25/2021 Pneumococcal Polysaccharide PPSV23 07/23/2016 SARS-CoV-2, Unspecified 02/25/2021 Tdap 12/20/2023 Zoster, Recombinant 02/17/2023,12/01/2022 Family History Medical History Relation Name Comments Diabetes Father Hypertension Father Stroke Father Stroke Maternal Grandfather Diabetes Maternal Grandmother Heart disease Maternal Grandmother Diabetes Mother Hypertension Mother Family HX of lung cancer Other Heart disease Paternal Grandfather Diabetes Paternal Grandmother Heart disease Paternal Grandmother Cancer Sibling Diabetes Sibling Relation Name Status Comments Brother 3 brothers Father (Age 87) Maternal Grandfather Maternal Grandmother Mother (Age 79) Other Paternal Grandfather Paternal Grandmother Sibling Sister 3 sisters Social History Tobacco Use Types Packs/Day Years Used Date Smoking Tobacco: Every Day Cigarettes 1 30 Smokeless Tobacco: Never Tobacco Cessation:Ready to Q uit: No; Counseling Given: Yes Comments:11-20 cigarettes/day Alcohol Use Standard Drinks/Week Comments [...] often do you attend chur ch or scientology services? Never 03/24/2023 Do you belong to [...] Recorded Patient Health Questionnaire-2 Score 1 04/17/2024 [facility] Answer Date Recorded [...] place to sleep or slept in a fci (including now)? No 03/24/2023 Comments Unknown Sex and Gender Information Value Date Recorded Sex Assigned at Not on file Legal Sex Female 7:05 PM EDT Gender Identity Not on file Sexual Orientation Not on file Last Filed Vital Signs Vital Sign Reading Time Taken Comments Blood Pressure 108/66 07/17/2024 1:01 PM EDT Pulse 83 07/17/2024 1:01 PM EDT Temperature 37 C (98.6 F) 07/17/2024 1:01 PM EDT Respiratory Rate 18 07/17/2024 1:01 PM EDT Oxygen Saturation 97% 07/17/2024 1:01 PM EDT Inhaled Oxygen Concentration - - Weight 128 kg (281 lb 11.2 oz) 07/17/2024 1:01 P M EDT Height 162.6 cm (5' 4 ) 07/17/2024 1:01 PM EDT Body Mass Index 48.35 07/17/2024 1:01 PM EDT Plan of Treatment Upcoming Encounters Date Type Department Care Team (Late st Contact Info) Description 08/28/2024 10:30 AM EDT Office Visit [facility] [address] [place] [phone] Jr. Elvis Beal, DO [address] [place] [address] 10/17/2024 1:00 PM EDT Office Visit [facility] [address] [place] [phone] Jenny Borrego, BILINGUAL SPEECH THERAPIST [address] [place] [phone] 04/18/2025 11:00 AM EST Office Visit [facility] [address] [place] [phone] Jenny Borrego, BILINGUAL SPEECH THERAPIST [address] [place] [phone] Health Maintenance Due Date Last Done Comments CT Colonography 1965 FIT-DNA 1965 FIT 1965 FOBT 1965 Lung Cancer Screening Shared Decision Making 1965 Sigmoidoscopy 1965 Pap Smear 1986 HPV/Cotest 11/06/1995 Diabetes: Retinopathy Screening 10/20/2023 Diabetes: Urine Protein Screening 09/14/2024 024, 09/27/2022 Diabetes: Hemoglobin A1C 10/17/2024 025, 04/17/2024, 01/16/2024, Additional history exists Influenza Vaccine (#1) 2024 4, 12/01/2022, 12/18/2021, Additional history exists Medicare Annual Wellness (AWV) 04/17/2025 0 04/17/2024, 04/17/2024, 03/24/2023, Additional history exists Mammogram 05/03/2025 05/03/2024, 11/19/2022 Colonoscopy 06/02/2032 06/02/2022 Colorectal Cancer Screening 06/02/2032 Cervical Cancer Screening Discontinued Procedures Procedure Name Priority Date/Time Associated Diagnosis Comments DEXA BONE DENSITY Routine 07/17/2024 2:0 7 PM EDT POCT GLYCOSYLATED HEMOGLOBIN (HGB A1C) Routine 07/17/2024 1:16 PM EDT Type 2 diabetes mellitus with insulin therapy (HCC) MM TOMOSYNTHESIS SCREENING BI 05/03/2024 12:32 PM EDT from Last 3 Months or Most Recently Relevant to Health Maintenance Results * DEXA bone density (07/17/2024 2:07 PM EDT) Anatomical Region Laterality Modality Body Radiographic Cecile ging Jenny Borrego BILINGUAL SPEECH THERAPIST IMG DXA PROCEDURES Final Result * (ABNORMAL) POCT glycosylated hemoglobin (Hb A1C) docked device (07/17/2024 1:16 PM EDT) Hemoglobin A1C 7.1 Blood Venous blood specimen / Unknown 07/17/2024 1:16 PM EDT Jenny Borrego NP POINT OF CARE TEST ENTER/EDIT O RDERABLES Final Result * MM TOMOSYNTHESIS SCREENING BI (05/03/2024 12:32 PM EDT) Anatomical Region Laterality Modality Other 05/03/2024 12:3 2 PM EDT Narrative 05/03/2024 12:33 [place] [address] Mammography Report Signed Patient: ELMER MENESES MR#: [id number] : 1965 Acct:[id number] Age/Sex: 58 / F ADM Date: 05/03/24 Loc: MAMMO Attending Dr: Jenny Borrego NP Ordering Physician: Jenny Borrego NP Results: Date of Service: 05/03/24 Follow Up: Procedure(s): MM tomosynthesis screening BI Accession Number(s): [id number] cc: Jenny Borrego NP Patient Name: ELMER MENESES MR#: [id number] : 1965 Exam Date: 05/03/2024 Ordering Doctor: [...] at age 48. LOCATION: [facility] BREAST COMPOSITION: There are scattered areas [...] Signed By: 05/03/24 1233 DD/ 1232 TD/TT: Model And Mold Maker: Procedure Note Radiology, Radiologist, MD - 05/03/2024 [place] [address] Mammography Report Signed Patient: ELMER MENESES MMR#: [id number] : 1965Acct:[id number] Age/Sex: 58 / FADM Date: 05/03/24 Loc: MAMMO Attending Dr: Jenny Borrego NP Ordering Physician: Jenny Borrego NPResults: Date of Service: 05/03/24Follow Up: Procedure(s): MM tomosynthesis screening BI Accession Number(s): [id number] cc: Jenny Borrego NP Patient Name: ELMER MENESES MR#: [id number] : 1965 Exam Date: 05/03/2024 Ordering Doctor: CARLO Borrego [facility] RADIOLOGY REPORT PROCEDURE: MM TOMOSYNTHESIS SCREENING BI COMPARISON: MM TOMOSYNTHESIS SCREENING BI, 11/19/2022. MG MAMM BILDIAG W CAD DIG, 04/13/2013. INDICATIONS: Screening Calculator Name NCI Breast Cancer Risk Assessment Tool 5 Year Breast Cancer Risk 1.10% Lifetime Breast Cancer Risk 6.30% Personal Breast Cancer No Personal Ovarian Cancer No Treatments None Family Cancers Sister with lung cancer at age 48. LOCATION: [facility] BREAST COMPOSITION: There are scattered areas of fibroglandulardensity. FINDINGS: DIAGNOSTIC CATEGORY 1--NEGATIVE. RIGHT BREAST: No significant suspicious finding. LEFT BREAST: No significant suspicious finding. RECOMMENDATIONS: ROUTINE MAMMOGRAM AND CLINICAL EVALUATION IN 12 MONTHS. PLEASE NOTE: A NORMAL MAMMOGRAM DOES NOT EXCLUDE THE POSSIBILITY OFBREAST CANCER. A CLINICALLY SUSPICIOUS PALPABLE LUMP SHOULD BE BIOPSIED. Dictated by: Vinnie Woody DO on 05/03/2024 at 12:30 Approved by: Vinnie Woody DO on 05/03/2024 at 12:32 Dictated By: Vinnie Woody M.D. Signed By:05/03/24 1233 DD/ 1232 TD/TT: Model And Mold Maker: Jenny Borrego BILINGUAL SPEECH THERAPIST [facility] Final Result from Last 3 Months or Most Recently Relevant to Health Maintenance Insurance [address] [place] [address] [facility] MEDICARE ADVANTAGE Care Teams Electric Meter Repairer Relationship Specialty Start Date End Date Ludin Blanchard MD [address] [place] [phone] PCP - General Family Medicine 04/28/23 Jenny Borrego NP [address] [place] [phone] Nurse Practitioner Family Medicine 12/27/22
--- NOTE | 2024-08-27 14:18 | PM.CN ---
Consult Note: HPI Data of Consult Patient: new to practice Consult date: 08/27/24 Requesting Physician: Faraz Carlson MD Primary Care Provider: Jenny Borrego NP Consult Narrative Reason for consult: low back, right knee pain Narrative: 58yof who presents for evaluation. longstanding history of low back pain, right knee pain. has had right knee scoped previously and has been told she needs to have right tka, but needs to lose weight first. has had right knee injections, without benefit. was seeing spine surgeon, who had ordered lumbar mri and was approved, but did not have completed yet because physician left practice. uses lyrica and robaxin. denies adverse med side effects. cc:: CC: Faraz Carlson MD Review of Systems ROS Status of ROS 10 or more systems reviewed and unremarkable except as noted in history and below PFSH PFSH Social History Little interest or pleasure in doing things: not at all Feeling down, depressed, or hopeless: not at all Meds Home Medications and Allergies Home Medications �Medication �Instructions �Recorded �Confirmed �Type atorvastatin 80 mg tablet 80 mg PO DAILY 07/10/23 07/10/23 History cetirizine 10 mg tablet (Allergy 10 mg PO DAILY 07/10/23 07/10/23 History Relief (cetirizine)) clopidogrel 75 mg tablet 75 mg PO DAILY 07/10/23 07/10/23 History dapagliflozin propanediol 10 mg 10 mg PO DAILY 07/10/23 07/10/23 History tablet (Farxiga) duloxetine 30 mg capsule,delayed 30 mg PO .hs 07/10/23 07/10/23 History release duloxetine 60 mg capsule,delayed 60 mg PO .am 07/10/23 07/10/23 History release ferrous sulfate 325 mg (65 mg 325 mg PO DAILY 07/10/23 07/10/23 History iron) tablet fluticasone propionate 50 1 spray intranasal Q12H 07/10/23 07/10/23 History mcg/actuation nasal spray,suspension folic acid 1 mg tablet 1 mg PO DAILY 07/10/23 07/10/23 History furosemide 40 mg tablet 40 mg PO .am 07/10/23 07/10/23 History insulin aspar prot-insulin aspart 1 unit subcut ACHS 07/10/23 07/10/23 History 100 unit/mL (70-30) subcutaneous pen (Novolog Mix 70-30FlexPen U-100) metformin 1,000 mg tablet mg 07/10/23 History methocarbamol 500 mg tablet 500 mg PO BID 07/10/23 07/10/23 History metoprolol succinate 50 mg 50 mg PO DAILY 07/10/23 07/10/23 History tablet,extended release 24 hr pantoprazole 40 mg tablet,delayed 40 mg PO DAILY 07/10/23 07/10/23 History release pregabalin 100 mg capsule 100 mg PO Q8H 07/10/23 07/10/23 History rivaroxaban 10 mg tablet (Xarelto) 10 mg PO Q24H 07/10/23 07/10/23 History oxycodone-acetaminophen 5 mg-325 1 tab PO Q6H PRN pain 3 days #12 11/19/23 Rx mg tablet (Percocet) tabs Allergies Allergy/AdvReac Type Severity Reaction Status Date / Time No Known Drug Allergies Allergy Verified 11/19/23 19:47 Exam Narrative Exam Narrative: Psych-alert and oriented x 3.� Attentive and appropriate, constitutionally normal, displays normal mood and affect per situation.� There are no obvious deficits in memory, reasoning, or intellect. Extremities-lower extremities are warm with minimal edema and palpable pulses. Knee-examination of the right knee reveals tenderness to palpation over the superior, inferior, lateral, and medial aspect of the knee.� Some swelling is noted without erythema. Pain is elicited with flexion and extension of the knee both actively and passively.� Some grinding is noted with these motions.� There is no notable ligamental laxity or instability.� Lumbar-no significant tenderness to palpation noted in the lumbar spine and paraspinal musculature.� Pain is elicited with extension, and lateral rotation of the lumbar spine. Range of motion is slightly diminished with these motions due to pain. Facet loading maneuvers are positive bilaterally and do appear to be concordant with the patient's normal complaints of pain. Coordination remains intact.� Gait remains antalgic. Assessment and Plan Assessment and Plan (1) Lumbar spondylosis: (2) Lumbar stenosis with neurogenic claudication: (3) Unilateral primary osteoarthritis, right knee: Plan 58yof who presents for evaluation. failed conservative measures, as noted. imaging was reviewed, as noted. given symptoms and imaging, prudent to attempt a right knee genicular nerve block for diagnostic and potentially therapeutic purposes under fluoroscopic guidance. she is in agreement. also discussed that she should proceed with previously ordered lumbar mri. meds reviewed, no changes. follow up after imaging and procedure.
== END 2024-08-27 12:51 | disposition home or self-care (01) ==
LOC: PM 12:51
PROVIDERS: PCP Nurse Practitioner; Visit Provider Anesthesiology
DX: M47.816 Spondylosis without myelopathy or radiculopathy, lumbar region (principal); M48.062 Spinal stenosis, lumbar region with neurogenic claudication; M17.11 Unilateral primary osteoarthritis, right knee
CPT/HCPCS: G0463

== ENCOUNTER 2024-09-28 07:39 | Outpatient (OUT) | payer MEDICARE, SELFPAY ==
--- OUTSIDE RECORDS SUMMARY | 2024-08-31 06:30 | XMS_ITS ---
Author Organization [facility] Address [address] [place] [address] Care Team Providers Care Hazardous Waste Management Specialist Name Role Phone Kimberli Saleh Unavailable [phone] REASON FOR VISIT LUMBAR MRI REVIEW Encounters Encounter Location Date Provider Diagnosis [facility] [address] [place] [phone] 08/31/2024 Kimberli Saleh Plan Of Treatment No Information Progress Notes * ELMER ELLIS MDOB: [birth year] (58 yo F)Acc No.[id number]:08/31/2024 Patient: Chase BELL ELMER Gold Provider: Yancy Jenkins MD, PhD :1965 A ge:58 Y S ex:Female Date:08/31/2024 Address:[address] [place] [address], [address], [id number] Subjective: * Chief Complaints: * 1 . LUMBAR MRI REVIEW. * Medical History: Objective: * Vitals: Assessment: Plan: * Treatment: Forms: * Images: * Electronic signature of Tevin Saleh MD, PHD on 09/28/2024 at 07:41 AM EDT Sign off status: Pending * Provider: Yancy Jenkins MD, PhD Date: 08/31/2024 Generated for Jackie ortiz/Bertrand/Vilmaitting on: 09/28/2024 07:41 AM EDT
--- OUTSIDE RECORDS SUMMARY | 2024-09-20 11:00 | XMS_ITS | Encounter Summary ---
Author Organization [facility] Address [address] [facility] [place] [address] Care Team Providers Care Data Center Project Manager Name Role Phone Jenny Borrego NP Unavailable [phone] Ludin Blanchard MD Primary Care Provider [phone] Reason for Referral * Clinic-Administered Medication (Routine) - Closed Specialty Diagnoses / Procedures Referred By April Referred To Contact Orthopaedic Surgery Diagnoses Internal derangement of left shoulder Procedures L Inj/Asp: L subacromial bursa Manuel Varela PA [address] [place] [address] Phone: tel: fax: [facility] [address] [facility] [address] [place] [address] Phone: tel: fax: Referral ID Status Reason Start Date Expiration Date Visits Re quested Visits Authorized [id number] Closed 09/20/2024 03/19/2025 1 1 * Imaging (Routine) - Authorized Specialty Diagnoses / Procedures Referred By April Referred To Contact Radiology Diagnoses Acute pain of left shoulder Internal derangement of left shoulder Procedures MR shoulder left wo IV contrast Manuel Varela PA [address] [place] [address] Phone: tel: fax: [facility] [address] [facility] [address] [place] [address] Phone: tel: fax: Referral ID Status Reason Start Date Expiration Date V isits Requested Visits Authorized [id number] Authorized 09/20/2024 03/19/2025 1 1 Reason for Visit * Reason Comments Pain Encounter Details Date Type Department Care Team (Late st Contact Info) Description 09/20/2024 11:00 AM EDT Office Visit [facility] [address] [place] [address] Manuel Varela PA [address] [place] [address] Acute pain of left shoulder [...] any clubs o r organizations such as jain groups, unions, fraternal or athletic groups, or [...] Recorded Patient Health Questionnaire-2 Score 1 04/17/2024 [facility] of Occupat ional Health - Occupational Stress [...] place to sleep or slept in a snf (including now)? No 03/24/2023 Comments Unknown Sex [...] Expiration Date: 09/20/2025 Scheduling Instructions: Please schedule @[facility] imaging location. Is the patient ?: [...] injection Left Shoulder SA space ( code 82724 LT) Procedure, treatment alternatives, risks and benefits [...] requiring urgent evaluation. Visit was preformed using [employer] pilot speech recognition. documented in this encounter Plan of Treatment Upcoming Encounters Date Type Department Care Team (Late st Contact Info) Description 10/01/2024 10:00 AM EDT Ancillary Procedure [facility] [address] [facility] [place] [address] 10/09/2024 10:15 AM EDT Office Visit [facility] [address] [place] [address] Jr. Elvis Beal, DO [address] [facility] [address] [place] [address] 10/16/2024 11:30 AM EDT Office Visit [facility] [address] [place] [address] Jr. Elvis Beal, DO [address] [facility] [address] [place] [address] 10/16/2024 1:40 PM EDT Office Visit [facility] [address] [place] [address] Jenny Borrego, OIL WELL SERVICES SUPERVISOR [address] [place] [address] 04/18/2025 11:00 AM EST Office Visit [facility] [address] [place] [address] Jenny Borrego, OIL WELL SERVICES SUPERVISOR [address] [place] [address] Scheduled Orders Name Type Priority Associated Diagnoses Orde r Schedule MR shoulder left wo IV contrast Imaging Routine Acute pain of left shoulder Internal derangement of left shoulder Expected: 09/20/2024 (Approximate), Expires: 09/20/2025 documented as of this encounter Procedures Procedure Name Priority Date/Time Associated Diagnosis Comments [place] ARTHROCENTESIS ASPIR&/INJ MAJOR JT/BURSA W/O US Routine 09/20/2024 11:23 AM EDT Internal derangement of left shoulder documented in this encounter Results * TN ARTHROCENTESIS ASPIR&/INJ MAJOR JT/BURSA W/O US (09/20/2024 [...] injection Left Shoulder SA space ( code 87673 LT) Procedure, treatment alternatives, risks and benefits explained, specific risks discussed. Consent was given by the patient. Patient was prepped and draped in the usual sterile fashion. Mnauel PRATT IN CLINIC/BEDSIDE ORDERABLES Final Result documented [...] documented as of this encounter Care Teams Data Center Project Manager Relationship Specialty Start Date End Date Ludin Blanchard MD [address] [place] [address] PCP - General Family Medicine 04/28/23 Jenny Borrego NP [address] [place] [address] Nurse Practitioner Family Medicine 12/27/22 documented as of this encounter
--- NOTE | 2024-09-28 07:41 | MR_ITS ---
The [address] [address] Patient Name: ELMER ELLIS MRN: [id number] date: 1965 Sex: F Assigned Patient Location: MRI Current Patient Location: LAB Accession/Order Number: [id number] Exam Date: 09/28/2024 09:23 Report Date: 09/28/2024 09:32 At the request of: DYLAN PRATT Procedure: MR lumbar spine wo con MR lumbar spine wo con 09/28/2024 7:42 AM SIGNS AND SYMPTOMS: Chronic low back pain with radiculopathy PROTOCOL: Multiplanar multisequence MR images of the lumbar spine without IV contrast COMPARISON: None. FINDINGS: The bones of the lumbar spine are in anatomic alignment. There is preservation of vertebral body heights. There is disc desiccation with moderate disc height loss at L2-L3. There is severe disc height loss at L5-S1 with mild disc height loss throughout otherwise. Mild Modic type I endplate edema is noted at L2-L3 with Modic type II fatty endplate degenerative change noted at L4-5 and L5-S1. The conus terminates at the inferior endplate of the L1 vertebral body level. No epidural or paraspinous fluid collection is appreciated. There is a 4.0 cm T2 hypointense mass along the right renal cortex medially which is slightly larger when compared to the prior exam. At T12-L1: There is a normal disc, central canal, and neural foramen. At L1-L2: There is a broad-based disc bulge. There is mild spinal canal narrowing without significant neural foraminal narrowing. At L2-L3: There is a circumferential disc bulge with facet hypertrophy and ligamentum flavum thickening. There is mild spinal canal stenosis with moderate right and mild left neural foraminal narrowing. At L3-L4: There is a circumferential disc bulge with facet hypertrophy and ligamentum flavum thickening. There is mild spinal canal narrowing with mild bilateral neural foraminal narrowing. At L4-L5: There is a circumferential disc bulge with a more prominent left foraminal and lateral zone component. There is endplate osteophyte formation. There is evidence of previous left hemilaminotomy. There is mild spinal canal narrowing with mild right and severe left neural foraminal stenosis. Is mass effect on the exiting left L4 nerve roots. At L5-S1: There is a broad-based disc bulge with endplate osteophyte formation. There is evidence of left hemilaminotomy. Facet hypertrophy is present left greater than right. There is no significant spinal canal narrowing. There is moderate to severe left and mild right neural foraminal narrowing with mass effect on the exiting left L5 nerve roots. MR/MR lumbar spine wo con IMPRESSION: There is a 4.0 cm T2 hypointense mass along the right renal cortex medially which is slightly larger when compared to the prior exam. This is presumed to be benign given its long-standing presence. At L4-L5: There is a circumferential disc bulge with a more prominent left foraminal and lateral zone component. There is endplate osteophyte formation. There is evidence of previous left hemilaminotomy. There is mild spinal canal narrowing with mild right and severe left neural foraminal stenosis. Is mass effect on the exiting left L4 nerve roots. At L5-S1: There is a broad-based disc bulge with endplate osteophyte formation. There is evidence of left hemilaminotomy. Facet hypertrophy is present left greater than right. There is no significant spinal canal narrowing. There is moderate to severe left and mild right neural foraminal narrowing with mass effect on the exiting left L5 nerve roots. Lesser degrees of degenerative changes are noted as above. Impression dictated by: Gary Landaverde M.D. 09/28/2024 9:32 AM Dictation Location: [place] [address] Electronically authenticated by: [id number] Y Date: 09/28/2024 09:32
--- OUTSIDE RECORDS SUMMARY | 2024-09-28 07:41 | XMS_ITS | Clinical Summary ---
Author Organization [facility] Address [address] [place] [address] Care Team Providers Care Cooler Room Worker Name Role Phone Deondre Roth DO, Charles P Primary Care Provider + Allergies No known active allergies Medications DULoxetine (CYMBALTA) 60 mg capsule duloxetine 60 mg capsule,delayed release TAKE 1 CAPSULE BY MOUTH EVERY DAY 2 Active atorvastatin (LIPITOR) 80 mg tablet Take 80 mg by mouth once daily. 2 Active fexofenadine (CRALOTTA) 180 mg tablet fexofenadine 180 mg tablet TAKE 1 TABLET BY MOUTH EVERY DAY Active gabapentin (NEURONTIN) 300 mg capsule Take 600 mg by mouth twice daily. 2 Active MV with Yrr-Vfxihobp-Lx tein (CENTRUM SILVER) 0.4 mg-300 mcg- 250 mcg tab Take by mouth. 2 Active insulin 75/25 lispro protamine/lispr o units/mL (HUMALOG MIX 75-25,U-100,INS ULN) 100 units/mL susp as directed. 2 Active HYDROcodone-miguel taminophen (NORCO) 5-325 mg per tablet hydrocodone 5 mg-acetaminophen 325 mg tablet TAKE 1 TO 2 TABLETS BY MOUTH EVERY DAY AT BEDTIME NEEDED Active dxiigsut-lzt-ww yq-GM-wrnlqu (CENTRUM SILVER WOMEN) 8 mg iron-400 mcg-300 [...] Leiden 04/19/2022 Coronary artery disease invo lving [place] heart without angina pectoris 04/19/2022 Smoker 04/19/2022 Morbid obesity 04/19/2022 Other specified disorders of kidney and ureter 0 04/19/2022 Encounters Date Type Department Care Team Description 08/28/2024 2:30 PM EDT [facility] [address] [address] Uri Pickens MD Other specified disorders of kidney and ureter (Primary Dx); Renal mass 08/26/2024 Travel 08/21/2024 9:48 AM EDT - 08/21/2024 11:59 PM EDT Hospital Encounter Radiology Pet CT [address] [place] [address] [place] [address] Other specified disorders of kidney and ureter [N28.89] Discharge Disposition: Home 08/21/2024 Results Follow-Up Urology [address] [address] Angie Mcclellan APRN.CNP 07/31/2024 Orders Only Urology [address] [address] Aj Cuellar PA Other specified disorders of [...] is lower risk 4 10/15/2022 Data from: https://www.neighborhoodatlas.medicine.[facility].edu/. Last address used for calculation [address] [place] [address] 10/15/2022 Comments Unknown Sex and Gender Information [...] 03/16/2022 1:36 PM EST Plan of Treatment Health Maintenance Due Date [...] (2 of 2 - PCV) 07/23/2017 07/23/2016 Medicare Advantage Annual We llness Visit 02/22/2024 Influenza Vaccine (#1) 2024 , 12/01/2022, 12/18/2021, Additional history exists HbA1C 01/17/2025 07/17/2024, /02/2023, 04/13/2023 DTaP,Tdap,Td Vaccine (2 - Td or [...] any questions regarding this interpretation, please call [phone]. If you are unable to reach us at the number above, please feel free to contact [facility] eRadiology at [phone]. Narrative 08/21/2024 12:02 PM EDT * * *Final Report* * * DATE OF EXAM: Aug 21 2024 11:14AM [facility] 0533 - CT ABDOMEN W IVCON [...] images: No additional findings. Procedure Note Provider, [facility] [place] - 08/21/2024 * * *Final Report* * * DATE OF EXAM: Aug 21 2024 11:14AM [facility] 0533 - CT ABDOMEN W IVCON [...] any questions regarding this interpretation, please call [phone]. If you are unable to reach us at the number above, please feel free to contact [facility] at [phone]. us Uri Pickens MD CT-[facility] Final Result * (ABNORMAL) CREATININE BLD (08/21/2024 9:49 AM EDT) Creatinine 1.08(H) 0.58 - 0.96 mg/dL 08/21/2024 10:30 AM EDT [facility] Estimated Glomerular Filtration Rate 60 >=60 mL/min/1.7 3m 08/21/2024 10:30 AM EDT [facility] Comment:Estimated Glomerular Filtration Rate (eGFR) [...] MD LABORATORY Final Result Performing Organization Address City/State/[facility] Co de Phone Number [facility] [address] [place] [address] from Last 3 Months Insurance [facility] MEDICARE Care Teams Cooler Room Worker Relationship Specialty Start Date End Date Dawit Mendosa Sr., PCP - General Family Medicine 10/24/14
--- OUTSIDE RECORDS SUMMARY | 2024-09-28 07:41 | XMS_ITS | Encounter Summary ---
Author Organization [facility] Address [address] [place] [address] Care Team Providers Care Stock Preparer Name Role Phone Jenny Borrego NP Unavailable [phone] Ludin Blanchard MD Primary Care Provider [phone] Encounter Details Date Type Department Care Team [...] often do you attend chur ch or confucianism services? Never 03/24/2023 Do you belong to any clubs o r organizations such as baptist groups, unions, fraternal or athletic groups, or [...] Recorded Patient Health Questionnaire-2 Score 2 06/23/2023 [facility] - Occupational [...] place to sleep or slept in a senior living (including now)? No 03/24/2023 Comments Unknown Sex [...] Procedure [facility] [address] [facility] [place] [address] 10/09/2024 10:15 AM EDT Office Visit [facility] [address] [place] [phone] Jr. Malik Beal, DO [address] [facility] [address] [place] [address] 10/16/2024 11:30 AM EDT Office Visit [facility] [address] [place] [address] Jr. Malik Beal, DO [address] [place] [address] 10/16/2024 1:40 PM EDT Office Visit [facility] [address] [place] [address] Jenny Borrego NP [address] [place] [address] 04/18/2025 11:00 AM EST Office Visit [facility] [address] [place] [address] Jenny Borrego NP [address] [place] [phone] documented as of this encounter Procedures Procedure Name Priority Date/Time Associated Diagnosis Comments NM LACHELLE PERF SPECT REST STR 09/19/2023 4:41 PM EDT documented in this encounter Results * NM LACHELLE PERF SPECT REST STR (09/19/2023 4:41 PM EDT) Anatomical Region Laterality Modality Other 09/19/2023 4:41 PM EDT Narrative 09/19/2023 4:42 PM EDT [place] [id number] Nuclear Medicine Report Signed Patient: ELMER MENESES MR#: [id number] : 1965 Acct:[id number] Age/Sex: 57 / F ADM Date: 09/15/23 Loc: CARD Attending Dr: MALIK NI Ordering Physician: MALIK NI Date of Service: 09/15/23 Procedure(s): NM lachelle perf SPECT rest str Accession Number(s): [id number] cc: Jenny Borrego CHIEF MARKETING OFFICER; MALIK NI Patient Name: ELMER MENESES MR#: [id number] : 1965 Exam Date: 09/15/2023 Ordering Doctor: [...] QUALITY OF STUDY: Excellent. PERFUSION DEFECT: LOCATION: [place]. SIZE: Small (1-2 segments). SEVERITY: Mild. TYPE: [...] Dictated By: Vishal Ashton M.D. Signed By: 09/19/23 164 DD/ 164 TD/TT: Options Trader: Procedure Note Radiology, Radiologist, MD - 09/19/2023 [place] [address] Nuclear Medicine Report Signed Patient: ELMER MENESES MMR#: [id number] : 1965Acct:[id number] Age/Sex: 57 / FADM Date: 09/15/23 Loc: CARD Attending Dr: MALIK NI Ordering Physician: MALIK NI Date of Service: 09/15/23 Procedure(s): NM lachelle perf SPECT rest str Accession Number(s): [id number] cc: Jenny Borrego NP; MALIK NI Patient Name: ELMER MENESES MR#: [id number] : 1965 Exam Date: 09/15/2023 Ordering Doctor: [...] QUALITY OF STUDY: Excellent. PERFUSION DEFECT: LOCATION: [place]. SIZE: Small (1-2 segments). SEVERITY: Mild. TYPE: [...] 16:41 Dictated By: Vishal Ashton M.D. Signed By:09/19/23 1642 DD/ 164 TD/TT: Options Trader: Generic External Data Provider [facility] Final Result documented in this encounter Visit Diagnoses Not on filedocumented in this encounter Additional Health Concerns Assessment Noted Time PHQ-9 Depression Total Score: 4 03/24/19 24 5:00 PM EST documented as of this encounter Care Teams Stock Preparer Relationship Specialty Start Date End Date Ludin Blanchard MD [address] [place] [address] PCP - General Family Medicine 04/28/23 Jenny Borrego NP [address] [place] [address] Nurse Practitioner Family Medicine 12/27/22 documented as of this encounter
--- OUTSIDE RECORDS SUMMARY | 2024-09-28 07:41 | XMS_ITS ---
Author Organization [facility] Address [address] [place] [address] Care Team Providers Care Pta Name Role Phone Jenny Borrego MD Primary Care Provider [phone] Active Problems Problem Noted Date Diagnosed Date Diabetes 04/27/2024 Pre-operative clearance 04/18/2024 Chronic kidney disease, stage 3a 01/16/2024 Primary hypertension 01/16/2024 Type 2 diabetes mellitus wit h diabetic chronic kidney disease 01/16/2024 Dizziness and giddiness 11/24/2023 PAD (peripheral artery disease) 09/21/2023 Claudication 09/21/2023 Elevated alkaline phosphatase level 09/15/2023 Iron deficiency anemia 08/18/2023 Bilateral lower extremity edema 06/23/2023 Environmental and seasonal allergies 06/23/2023 Overview (08/18/2023): Last Assessment & Plan: Add cetirzine and nasal spray Likely the cause of her ear pain, has fluid, not infectious looking Gastroesophageal reflux disease without esophagi tis 05/23/2023 Overview (08/18/2023): Last Assessment & Plan: No changes in meds Other acute sinusitis 04/05/2023 Encounter for annual wellnes s visit (AWV) in Medicare patient 03/24/2023 Overview (08/18/2023): Last Assessment & Plan: Reviewed Ht/Wt/BMI Recommend eye exam yearly Recommend dental exams twice a year Balance work/leisure activities Exercises is recommended most days of the week (appropriate as chronic conditions allow) Follow up yearly and prn Type 2 diabetes mellitus with insulin therapy Abnormal PFT 02/02/2023 Abnormal stress test 02/02/2023 Anxiety and depression 02/02/2023 Arthritis 02/02/2023 Cancer of kidney 02/02/2023 Overview (08/18/2023): Last Assessment & Plan: Continue with specialty for monitoring Chronic back pain 02/02/2023 Chronic bronchitis 02/02/2023 Chronic cough 02/02/2023 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 02/02/2023 Diabetic neuropathy, painful 02/02/2023 Overview (08/18/2023): Last Assessment & Plan: OARRS reviewed Stop ayan, trial lyrica Family history of lung cancer 02/02/2023 Gallstone 02/02/2023 History of varicose veins 02/02/2023 Incomplete bladder emptying 02/02/2023 Mucopurulent chronic bronchitis 02/02/2023 Neuropathy 02/02/2023 ELENA (obstructive sleep apnea) 02/02/2023 Overview (08/18/2023): Last Assessment & Plan: Has not been wearing a PAP machine for some time, would like to get sleep study re ordered and go from there Osteoporosis 02/02/2023 Yeast infection of the vagina 02/02/2023 Anemia 10/05/2022 Arthritis of left acromioclavicular joint 2022 Chondromalacia of left patella 10/05/2022 Internal derangement of left knee 10/05/2022 Internal derangement of right knee 10/05/2022 Intestinal malabsorption, unspecified 10/05/2022 Factor V Leiden 04/19/2022 Smoker 04/19/2022 Renal mass 04/19/2022 Other specified disorders of kidney and ureter 0 04/19/2022 Lumbosacral plexus lesion 06/21/2020 Coronary atherosclerosis 04/27/2019 Dyspnea on exertion 04/27/2019 Hypertriglyceridemia 04/27/2019 History of deep vein thrombosis 04/27/2019 Intermittent claudication 04/27/2019 Tobacco dependence syndrome 04/27/2019 Morbid obesity 04/27/2019 Intermittent palpitations 04/27/2019 Current Treatment and Therapy Plans No current plan information found. Past Treatment and Therapy Plans No past plan information found. Lifetime Dose Tracking * Chemical Lifetime Dose Automatic Entry Manual Entr y Fluoro Time 10 minutes 0 minutes 10 minutes Air Kerma 227 mGy 0 mGy 227 mGy
--- OUTSIDE RECORDS SUMMARY | 2024-09-28 07:41 | XMS_ITS | Encounter Summary ---
Author Organization [facility] Address [address] [place] [address] Care Team Providers Care Chief Creative Officer Name Role Phone Jenny Borrego STREET LIGHT SERVICER Unavailable [phone] Ludin Blanchard MD Primary Care Provider [phone] Encounter Details Date Type Department Care Team (Late st Contact Info) Description 09/27/2023 Orders Only [facility] [address] [place] [place] [address] Jenny Borrego, ZELALEM [address] [place] [address] Social History Tobacco Use Types [...] How often do you attend chur or sabianist services? Never 03/24/2023 Do you belong to any clubs o r organizations such as evangelical groups, unions, fraternal or athletic groups, or [...] Recorded Patient Health Questionnaire-2 Score 2 06/23/2023 [facility] - [...] Description 10/01/2024 10:00 AM EDT Ancillary Procedure [facility] [address] [facility] [place] [address] 10/09/2024 10:15 AM EDT Office Visit [facility] [address] [place] [address] Jr. Elvis Beal, DO [address] [facility] [address] [place] [address] 10/16/2024 11:30 AM EDT Office Visit [facility] [place] [address] Jr. Elvis Beal, DO [address] [place] [address] 10/16/2024 1:40 PM EDT Office Visit [facility] [address] [place] [address] Jenny Borrego NP [address] [place] [address] 04/18/2025 11:00 AM EST Office Visit [facility] [address] [place] [address] Jenny Borrego NP [address] [place] [address] documented as of this encounter Procedures Procedure Name Priority Date/Time Associated Diagnosis Comments SCANNED LABS Routine 09/27/2023 12:00 PM EDT documented in this encounter Results * SCANNED LABS (09/27/2023 12:00 PM EDT) us Jenny Borrego STREET LIGHT SERVICER LAB CHG PERFORMABLES Final Resu lt documented in this encounter Visit Diagnoses Not on filedocumented in this encounter Additional Health Concerns Assessment Noted Time PHQ-9 Depression Total Score: 4 03/24/19 24 5:00 PM EST documented as of this encounter Care Teams Chief Creative Officer Relationship Specialty Start Date End Date Ludin Blanchard MD [address] [place] [address] PCP - General Family Medicine 04/28/23 Jenny Borrego NP [address] [place] [address] Nurse Practitioner Family Medicine 12/27/22 documented as of this encounter
--- OUTSIDE RECORDS SUMMARY | 2024-09-28 07:41 | XMS_ITS | Encounter Summary ---
Author Organization [facility] Address [address] [place] [address] Care Team Providers Care Appeals Court Associate Justice Name Role Phone Deondre Roth, Dawit [place] Primary Care Provider + Source Comments In the event this information is protected by the Federal Confidentiality of Alcohol and Drug AbusePatient Records regulations: The Federal rules restrict any use of the information to criminally investigate or prosecute any alcohol or drug abuse patient.[facility] Encounter Details Date Type Department Care Team (Late st Contact Info) Description 08/21/2024 Results Follow-Up Urology [address] [place] [address] Angie Mcclellan APRN.RATCHET SETTER [address] [place] [address] Social History Tobacco Use Types [...] lower risk 4 10/15/2022 Data from: https://www.neighborhoodatlas.medicine.[facility].edu/. Last address used for calculation [address] 10/15/2022 Comments Unknown Sex and Gender Information Value Date Recorded Sex Assigned at Female 07/30/2024 2:43 PM EDT Legal Sex Female 1:44 PM EDT Gender Identity Female 07/30/2024 2:43 PM EDT Sexual Orientation Not on file documented as of this encounter Plan of Treatment Not on file documented as of this encounter Visit Diagnoses Not on filedocumented in this encounter Care Teams Appeals Court Associate Justice Relationship Specialty Start Date End Date Dawit Mendosa Sr., DO PCP - General Family Medicine 10/24/14 documented as of this encounter
--- OUTSIDE RECORDS SUMMARY | 2024-09-28 07:41 | XMS_ITS | Encounter Summary ---
Author Organization [facility] Address [address] [place] [address] Care Team Providers Care Gravel Weigher Name Role Phone Jenny Borrego HEAD OF VISUAL MERCHANDISING Unavailable [phone] Ludin Blanchard MD Primary Care Provider [phone] Encounter Details Date Type Department Care Team (Late st Contact Info) Description 09/24/2024 Abstract [facility] [address] [place] [address] Jenny Borrego NP [address] [place] [address] Social History Tobacco Use Types Packs/Day Years [...] How often do you attend chur or jew services? Never 03/24/2023 Do you belong to any clubs o r organizations such as episcopal groups, unions, fraternal or athletic groups, or [...] Recorded Patient Health Questionnaire-2 Score 1 04/17/2024 [facility] - Occupational [...] [address] [facility] [place] [address] 10/09/2024 10:15 AM EDT [facility] [address] [place] [address] Jr. Elvis Beal, DO [address] [facility] [address] [place] [address] 10/16/2024 11:30 AM EDT [facility] [place] [address] Jr. Elvis Beal, DO [address] [place] [address] 10/16/2024 1:40 PM EDT Office Visit [facility] [address] [place] [address] Jenny Borrego, ZELALEM [address] [place] [address] 04/18/2025 11:00 AM EST Office Visit [facility] [address] [place] [address] Jenny Borrego, ZELALEM [address] [place] [address] documented as of this encounter Visit Diagnoses Not on filedocumented in this encounter Additional Health Concerns Assessment Noted Time PHQ-9 Depression Total Score: 4 04/17/19 25 1:00 PM EST documented as of this encounter Care Teams Gravel Weigher Relationship Specialty Start Date End Date Ludin Blanchard MD [address] [place] [address] PCP - General Family Medicine 04/28/23 Jenny Borrego NP [address] [place] [address] Nurse Practitioner Family Medicine 12/27/22 documented as of this encounter
--- OUTSIDE RECORDS SUMMARY | 2024-09-28 07:41 | XMS_ITS | Encounter Summary ---
Author Organization [facility] Address [address] [place] [address] Care Team Providers Care Tube Molder Fiberglass Name Role Phone Dawit Mendosa MD Primary Care Provider [phone] Jenny Borrego MD Primary Care Provider [phone] Reason for Visit * Reason Comments Med Refill Encounter Details Date Type Department Care Team (Late st Contact Info) Description 02/16/2023 Refill [facility] [address] [place] [address] Elvis Benavides MD [address] [facility] [address] [facility] [place] [address] Disorder of arteries and arterioles, unspecified; Edema, unspecified type Social History Tobacco Use Types Packs/Day Years Used Date Smoking Tobacco: Every Day Cigarettes Smokeless Tobacco: Never Alcohol Use Standard Drinks/Week Comments Not Currently 0 (1 standard drink = 0.6 oz pur e alcohol) Comments Unknown Sex and Gender Information Value Date Recorded Sex Assigned at Not on file Legal Sex Female 11:00 PM EDT Gender Identity Not on file Sexual Orientation Not on file documented as of this encounter Plan of Treatment Not on file documented as of this encounter Visit Diagnoses Diagnosis Disorder of arteries and arterioles, unspecified Edema, unspecified type documented in this encounter Care Teams Tube Molder Fiberglass Relationship Specialty Start Date End Date Dawit Mendosa MD [address] [place] [address] PCP - General 05/31/22 08/17/23 Jenny Borrego MD [address] [place] [address] PCP - General Nurse Practitioner 08/18/23 documented as of this encounter
--- OUTSIDE RECORDS SUMMARY | 2024-09-28 07:41 | XMS_ITS | Encounter Summary ---
Author Organization [facility] Address [address] [place] [address] Care Team Providers Care Wind Energy Engineer Name Role Phone Jenny Borrego HIGHWAY LANDSCAPE ARCHITECT Unavailable [phone] Ludin Blanchard MD Primary Care Provider [phone] Encounter Details Date Type Department Care Team (Late st Contact Info) Description 07/30/2024 Abstract [facility] [address] [place] [address] Jenny Borrego NP [address] [place] [address] Social History Tobacco Use Types Packs/Day Years [...] How often do you attend chur or zoroastrian services? Never 03/24/2023 Do you belong to [...] Recorded Patient Health Questionnaire-2 Score 1 04/17/2024 [facility] - Occupational [...] Procedure [facility] [address] [facility] [place] [address] 10/09/2024 10:15 AM EDT [facility] [address] [place] [address] Jr. Elvis Beal, DO [address] [facility] [address] [place] [address] 10/16/2024 11:30 AM EDT [facility] [place] [address] Jr. Elvis Beal, DO [address] [place] [address] 10/16/2024 1:40 PM EDT Office Visit [facility] [address] [place] [address] Jenny Borrego, ZELALEM [address] [place] [address] 04/18/2025 11:00 AM EST Office Visit [facility] [address] [place] [address] Jenny Borrego, ZELALEM [address] [place] [address] documented as of this encounter Visit Diagnoses Not on filedocumented in this encounter Additional Health Concerns Assessment Noted Time PHQ-9 Depression Total Score: 4 04/17/19 25 1:00 PM EST documented as of this encounter Care Teams Wind Energy Engineer Relationship Specialty Start Date End Date Ludin Blanchard MD [address] [place] [address] PCP - General Family Medicine 04/28/23 Jenny Borrego NP [address] [place] [address] Nurse Practitioner Family Medicine 12/27/22 documented as of this encounter
--- OUTSIDE RECORDS SUMMARY | 2024-09-28 07:41 | XMS_ITS | Encounter Summary ---
Author Organization [facility] Address [address] [place] [address] Care Team Providers Care Industrial Recruiter Name Role Phone Dawit Mendosa MD Primary Care Provider [phone] Jenny Borrego MD Primary Care Provider [phone] Reason for Visit * Reason Comments Med Refill Encounter Details Date Type Department Care Team (Late st Contact Info) Description 02/21/2022 Refill [facility] [address] [place] [address] Elvis Benavides MD [address] [facility] [address] [facility] [place] [address] Atherosclerotic heart disease of [place] coronary artery without angina pectoris Social History Tobacco Use Types Packs/Day Years Used Date Smoking Tobacco: Never Assessed Comments Unknown Sex and Gender Information Value Date Recorded Sex Assigned at Not on file Legal Sex Female 11:00 PM EDT Gender Identity Not on file Sexual Orientation Not on file documented as of this encounter Plan of Treatment Not on file documented as of this encounter Visit Diagnoses Diagnosis Atherosclerotic heart disease of [place] coronary artery without angina pectoris documented in this encounter Care Teams Industrial Recruiter Relationship Specialty Start Date End Date Dawit Mendosa MD [address] [place] [address] PCP - General 05/31/22 08/17/23 Jenny Borrego MD [address] [place] [address] PCP - General Nurse Practitioner 08/18/23 documented as of this encounter
--- OUTSIDE RECORDS SUMMARY | 2024-09-28 07:41 | XMS_ITS | Encounter Summary ---
Author Organization [facility] Address [address] [place] [address] Care Team Providers Care Hospice Administrator Name Role Phone Dawit Mendosa MD Primary Care Provider [phone] Jenny Borrego MD Primary Care Provider [phone] Reason for Visit * Reason Comments Med Refill Encounter Details Date Type Department Care Team (Late st Contact Info) Description 11/30/2022 Refill [facility] [address] [place] [address] Elvis Benavides MD [address] [facility] [address] [facility] [place] [address] Edema, unspecified type Social History Tobacco Use [...] as of this encounter Visit Diagnoses Diagnosis Edema, unspecified type documented in this encounter Care Teams Hospice Administrator Relationship Specialty Start Date End Date Dawit Mendosa MD [address] [place] [address] PCP - General 05/31/22 08/17/23 Jenny Borrego MD [address] [place] [address] PCP - General Nurse Practitioner 08/18/23 documented as of this encounter
--- OUTSIDE RECORDS SUMMARY | 2024-09-28 07:41 | XMS_ITS | Encounter Summary ---
Author Organization [facility] Address [address] [place] [address] Care Team Providers Care Compressed Air Pile Driver Operator Name Role Phone Jenny Borrego LABORER LABORATORY Unavailable [phone] Ludin Blanchard MD Primary Care Provider Encounter Details Date Type Department Care Team (Late st Contact Info) Description 07/17/2024 Orders Only [facility] [address] [place] [address] Jenny Borrego, ZELALEM [address] [place] [address] Social History Tobacco Use Types [...] any clubs o r organizations such as jew groups, unions, fraternal or athletic groups, or [...] Recorded Patient Health Questionnaire-2 Score 1 04/17/2024 [facility] - Occupational [...] place to sleep or slept in a intermediate (including now)? No 03/24/2023 Comments Unknown Sex [...] Procedure [facility] [address] [facility] [place] [address] 10/09/2024 10:15 AM EDT [facility] Visit [facility] [address] [place] [address] Jr. Elvis Beal, DO [address] [facility] [address] [place] [address] 10/16/2024 11:30 AM EDT Office Visit [facility] [place] [address] Jr. Elvis Beal, DO [address] [place] [address] 10/16/2024 1:40 PM EDT Office Visit [facility] [address] [place] [address] Jenny Borrego NP [address] [place] [address] 04/18/2025 11:00 AM EST Office Visit [facility] [address] [place] [address] Jenny Borrego, ZELALEM [address] [place] [address] documented as of this encounter Procedures Procedure Name Priority Date/Time Associated Diagnosis Comments DEXA BONE DENSITY Routine 07/17/2024 2:07 PM EDT documented in this encounter Results * DEXA bone density (07/17/2024 2:07 PM EDT) Anatomical Region Laterality Modality Body Radiographic Cecile ging us Jenny Borrego LABORER LABORATORY IMG DXA PROCEDURES Final Result documented in this encounter Visit Diagnoses Not on filedocumented in this encounter Additional Health Concerns Assessment Noted Time PHQ-9 Depression Total Score: 4 04/17/19 25 1:00 PM EST documented as of this encounter Care Teams Compressed Air Pile Driver Operator Relationship Specialty Start Date End Date Ludin Blanchard MD [address] [place] [address] PCP - General Family Medicine 04/28/23 Jenny Borrego NP [address] [place] [address] Nurse Practitioner Family Medicine 12/27/22 documented as of this encounter
--- OUTSIDE RECORDS SUMMARY | 2024-09-28 07:41 | XMS_ITS | Encounter Summary ---
Author Organization [facility] Address [address] [place] [address] Care Team Providers Care Production Cloth Cutter Name Role Phone Jenny Borrego NP Unavailable [phone] Ludin Blanchard MD Primary Care Provider Reason for Visit * Reason Onset Date Comments About referred procedure 09/20/2024 Encounter Details Date Type Department Care Team (Late st Contact Info) Description 09/20/2024 Telephone [facility] [address] [place] [address] Jr. Elvis Beal, DO [address] [facility] [address] [place] [address] About referred procedure Social History Tobacco Use Types Packs/Day Years [...] How often do you attend chur or sikhism services? Never 03/24/2023 Do you belong to any clubs o r organizations such as caodaism groups, unions, fraternal or athletic groups, or [...] Recorded Patient Health Questionnaire-2 Score 1 04/17/2024 [facility] - Occupational Stress [...] place to sleep or slept in a penitentiary (including now)? No 03/24/2023 Comments Unknown Sex and Gender Information Value Date Recorded Sex Assigned at Not on file Legal Sex Female 7:05 PM EDT Gender Identity Not on file Sexual Orientation Not on file documented as of this encounter Miscellaneous Notes * Telephone Encounter - Ana Lugo - 09/20/2024 8:24 AM EDT Chitra from [facility] called and said that Dr. Beal referred Melany therefor an injection/ablation, she won't be able to have the procedure done because Melany's insurance won't pay for it, and they are unable to appeal it. documented in this encounter Plan of Treatment Upcoming Encounters Date Type Department Care Team (Late st Contact Info) Description 10/01/2024 10:00 AM EDT Ancillary Procedure [facility] [address] [place] [address] 10/09/2024 10:15 AM EDT Office Visit [facility] [address] [facility] [address] Jr. Elvis Beal, DO [address] [facility] [address] [place] [address] 10/16/2024 11:30 AM EDT Office Visit [facility] [address] [place] [address] Jr. Elvis Beal, DO [address] [facility] [address] [place] [address] 10/16/2024 1:40 PM EDT Office Visit [facility] [address] [place] [address] Jenny Borrego NP [address] [place] [address] 04/18/2025 11:00 AM EST Office Visit [facility] [address] [place] [address] Jenny Borrego NP [address] [place] [address] documented as of this encounter Visit Diagnoses Not on filedocumented in this encounter Additional Health Concerns Assessment Noted Time PHQ-9 Depression Total Score: 4 04/17/19 25 1:00 PM EST documented as of this encounter Care Teams Production Cloth Cutter Relationship Specialty Start Date End Date Ludin Blanchard MD [address] [place] [address] PCP - General Family Medicine 04/28/23 Jenny Borrego NP [address] [place] [address] Nurse Practitioner Family Medicine 12/27/22 documented as of this encounter
--- OUTSIDE RECORDS SUMMARY | 2024-09-28 07:41 | XMS_ITS | Encounter Summary ---
Author Organization [facility] Address [address] [place] [address] Care Team Providers Care Welt Pocket Machine Operator Name Role Phone Dawit Mendosa MD Primary Care Provider [phone] Jenny Borrego MD Primary Care Provider [phone] Reason for Visit * Reason Comments Med Refill Encounter Details Date Type Department Care Team (Late st Contact Info) Description 03/11/2022 Refill [facility] [address] [place] [address] Elvis Benavides MD [address] [facility] [address] [facility] [place] [phone] Essential (primary) hypertension Social History Tobacco Use Types Packs/Day Years Used Date Smoking Tobacco: Never Assessed Comments Unknown Sex and Gender Information Value Date Recorded Sex Assigned at Not on file Legal Sex Female 11:00 PM EDT Gender Identity Not on file Sexual Orientation Not on file documented as of this encounter Plan of Treatment Not on file documented as of this encounter Visit Diagnoses Diagnosis Essential (primary) hypertension Unspecified essential hypertension documented in this encounter Care Teams Welt Pocket Machine Operator Relationship Specialty Start Date End Date Dawit Mendosa MD [address] [place] [address] PCP - General 05/31/22 08/17/23 Jenny Borrego MD [address] [place], [place] [phone] PCP - General Nurse Practitioner 08/18/23 documented as of this encounter
--- OUTSIDE RECORDS SUMMARY | 2024-09-28 07:41 | XMS_ITS | Clinical Summary ---
Author Organization [facility] Address [address] [place] [address] Care Team Providers Care Clip On Sunglasses Inspector Name Role Phone Jenny Borrego NP Unavailable [phone] Ludin Blanchard MD Primary Care Provider Allergies No known active allergies Medications ASPIRIN 81 MG chewable tablet Aspir-81 Acti ve metoprolol succinate XL (Toprol-XL) 50 MG 24 hr tablet 1 (one) time each day at the same time. Active Continuous Blood Gluc Sensor (FreeStyle Joelle 2 Sensor) [facility] USE TO TEST BLOOD SUGAR 4 TIMES DAILY 09/24/19 23 Active metoprolol succinate XL (Toprol-XL) 25 MG 24 hr tablet Take 25 mg by mouth in the morning. 01/20/20 23 Active folic acid (Folvite) 1 MG tablet Take 1,000 mcg by mouth Daily 06/08/19 24 Active cyanocobalamin (Vitamin B-12) 50 MCG tablet Take 50 mcg by mouth in the morning. Pt takes 1000 mg daily. Active insulin pen needle (B-D UF III MINI PEN NEEDLES) 31G x 5 mm miscIndications: Type 2 diabetes mellitus with insulin therapy (HCC) Twice a day use 200 each 4 03/24/19 25 Active dapagliflozin (Farxiga) 10 MGIndications:Ty pe 2 diabetes mellitus with diabetic neuropathy, with long-term current use of insulin (HCC) Take 1 tablet (10 mg) by mouth in the morning. 90 tablet 1 04/17/19 25 Active fluticasone (Flonase) 50 MCG/ACT nasal sprayIndications :Environmental and seasonal allergies Administer 2 sprays into each nostril Daily Shake gently. Before first use, prime pump. After use, clean tip and replace cap. 48 g 1 04/17/19 25 Active DULoxetine (Cymbalta) [address] capsuleIndicatio ns:Type 2 diabetes mellitus with diabetic neuropathy, unspecified (HCC),Anxiety and depression Take 1 capsule (60 mg) by mouth Daily Total daily dose is 90mg 90 capsule 1 06/02/19 25 Active DULoxetine (Cymbalta) [address] capsuleIndicatio ns:Type 2 diabetes mellitus with diabetic neuropathy, unspecified (HCC),Anxiety and depression,Diabe tic neuropathy, painful (HCC) Take 1 capsule (30 mg) by mouth Daily Total dose is 90mg daily 90 capsule 1 06/02/19 25 Active pregabalin (Lyrica) 100 MG capsuleIndicatio ns:Type 2 diabetes mellitus with diabetic neuropathy, with long-term current use of insulin (HCC) Take 1 capsule (100 mg) by mouth every 8 (eight) hours 90 capsule 2 06/09/19 25 Active rivaroxaban (Xarelto) 10 MG tablet Take 10 mg by mouth in the morning. 05/05/19 25 Active albuterol HFA 90 mcg/act inhalerIndicatio ns:Bronchitis Inhale 2 puffs every 6 (six) hours if needed for shortness of breath or wheezing 18 g 1 07/06/19 25 Active atorvastatin (Lipitor) 80 MG tabletIndication s:Hypertriglycer idemia Take 1 tablet (80 mg) by mouth at bedtime 90 tablet 1 07/18/19 25 025 Active cetirizine (ZyrTEC) 10 MG tabletIndication s:Environmental and seasonal allergies Take 1 tablet (10 mg) by mouth Daily 90 tablet 1 07/18/19 25 025 Active pantoprazole (ProtoNix) 40 MG EC tabletIndication s:Gastroesophage al reflux disease without esophagitis Take 1 tablet (40 mg) by mouth in the morning. Take before meals. 90 tablet 1 07/18/19 25 025 Active furosemide (Lasix) 40 MG tabletIndication s:Bilateral lower extremity edema Take 1 tablet (40 mg) by mouth Daily 90 tablet 1 08/29/19 25 025 Active insulin aspart protamine-insuli n aspart (NovoLOG MIX 70/30 FLEXPEN) (70-30) 100 UNIT/ML injectionIndicat ions:Type 2 diabetes mellitus without complications (HCC) Inject 75 Units under the skin in the morning and 75 Units in the evening. Inject with meals. 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 Inject with meals. 135 mL 1 03/11/19 25 025 Discontinued methocarbamol (Robaxin) 500 MG tabletIndication s:Chronic back pain, unspecified back location, unspecified back pain laterality Take 1 tablet (500 mg) by mouth every 12 (twelve) hours if needed for muscle spasms 60 tablet 3 05/29/19 25 025 Discontinued clopidogrel (Plavix) 75 MG tablet Take 75 mg by mouth Daily 06/05/19 25 025 Discontinued ferrous sulfate 325 (65 Fe) MG tabletIndication s:Anemia, unspecified TAKE 1 TABLET (325 MG) BY MOUTH IN THE MORNING. TAKE WITH MEALS. 90 tablet 1 06/29/19 25 025 Hospital, Clinic, or Other Facility Administered Medication Ordered Dose Route Frequency Start Date End Date Status bupivacaine PF (Marcaine) 0.5 % injection 1 mLIndications:Roofing Supervisor al derangement of left shoulder 1 mL IJ Once PRN Procedure 09/20/2024 09/20/2024 Ended methylPREDNISolone acetate (DEPO-Medrol) injection 40 mgIndications:Roofing Supervisor al derangement of left shoulder 40 mg IX Once PRN Procedure 09/20/2024 09/20/2024 Ended Active Problems Problem Noted Date Diagnosed Date Atherosclerosis of solomon ar teries of extremities with rest pain, right leg 07/17/2024 Overview (07/17/2024): Noted by LAST Vargas MD last documented on [id number] Activated protein C resistance (HHS-HCC) 025 Overview (07/17/2024): Noted by CHIDI Ortiz [...] Assessment & Plan (04/17/2024 6:40 AM EST): .GEORGIAN Assessment & Plan (01/16/2024 2:20 PM EST): [...] of the risks of continued smoking: stroke, UT, all forms of cancer, lung disease, and [...] of the risks of continued smoking: stroke, UT, all forms of cancer, lung disease, and [...] EST): Recommend quitting, pt declines 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 (Primary Dx); Type 2 diabetes mellitus without complications (HCC); Chronic back pain, unspecified back location, unspecified back pain laterality 09/06/2024 10:00 AM EDT Office Visit [facility] [address] [place] [address] Manuel Varela PA Acute pain of left shoulder (Primary Dx); Biceps tendon rupture, left, initial encounter 09/06/2024 9:55 AM EDT Ancillary Procedure [facility] [address] [place] [address] 09/06/2024 Bamboo flowsheet [facility] [address] [place] [address] Manuel Varela PA 09/06/2024 Travel 08/28/2024 10:50 AM EDT Ancillary Procedure [facility] [place] [address] 08/28/2024 10:30 AM EDT Office Visit [facility] [address] [facility] [place] [address] Jr. Elvis Beal, DO Primary osteoarthritis of right knee (Primary Dx); Acute pain of right knee 08/28/2024 Refill [facility] [address] [place] [address] Jenny Borrego, ZELALEM Bilateral lower extremity edema 08/28/2024 Bamboo flowsheet [facility] [place] [address] Jr. Elvis Beal, DO 08/28/2024 Travel 08/27/2024 Abstract [facility] [address] [place] [address] Jenny Borrego NP 07/30/2024 Telephone [facility] [address] [place] [address] Jr. Elvis Beal, DO pain mgmt 07/30/2024 Abstract [facility] [address] [place] [address] Jenny Borrego, ZELALEM 07/17/2024 1:00 PM EDT [facility] [address] [place] [address] Jenny Borrego, ZELALEM Type 2 diabetes mellitus with diabetic neuropathy, with long-term current use of insulin (HCC) (Primary Dx); ELENA (obstructive sleep apnea); PAD (peripheral artery disease); Primary hypertension ; Gastroesophageal reflux disease without esophagitis; Class 3 severe obesity due to excess calories with serious comorbidity and body mass index (BMI) of 45.0 to 49.9 in adult ([facility]); Type 2 diabetes mellitus with insulin therapy ([facility]); Tobacco user; Mixed hyperlipidemia ; Anxiety and depression ; Hypertriglyceridemia ; Environmental and seasonal allergies 07/17/2024 Orders Only [facility] [address] [place] [address] Jenny Borrego, ZELALEM 07/17/2024 Bamboo flowsheet [facility] [address] [place] [address] Jenny Borrego, ZELALEM 07/05/2024 Refill [facility] [address] [place] [address] Jenny Borrego, ZELALEM Bronchitis 07/03/2024 9:30 AM EDT Office Visit [facility] [address] [place] [address] Jr. Elvis Beal DO Acute pain of right knee (Primary Dx); History of arthroscopy of right knee 07/03/2024 Bamboo flowsheet [facility] [address] [place] [address] Jr. Elvis Beal DO 07/03/2024 Travel 06/28/2024 Refill [facility] [address] [place] [address] Jenny Borrego, CHERRY PICKER OPERATOR Anemia, unspecified from Last 3 Months Immunizations Immunization Administration [...] often do you attend chur ch or latter-day services? Never 03/24/2023 Do you belong to any clubs o r organizations such as faith groups, unions, fraternal or athletic groups, or [...] Recorded Patient Health Questionnaire-2 Score 1 04/17/2024 [facility] Questionnaire Answer Date Recorded [...] the money to buy more. Never true 02/01/20 24 Within the past 12 months, t [...] place to sleep or slept in a long term (including now)? No 03/24/2023 Comments Unknown Sex [...] EDT Ancillary Procedure [facility] [address] [place] [address] 10/09/2024 10:15 AM EDT Office Visit [facility] [address] [facility] [place] [address] Jr. Elvis Beal, DO [address] [facility] [address] [place] [address] 10/16/2024 11:30 AM EDT Office Visit [facility] [address] [facility] [place] [address] Jr. Elvis Beal, DO [address] [facility] [address] [place] [address] 10/16/2024 1:40 PM EDT Office Visit [facility] [address] [place] [address] Jenny Borrego, ZELALEM [address] [place] [address] 04/18/2025 11:00 AM EST Office Visit [facility] [address] [place] [address] Jenny Borrego, ZELALEM [address] [place] [address] Health Maintenance Due Date Last Done Comments [...] Procedure Name Priority Date/Time Associated Diagnosis Comments VT ARTHROCENTESIS ASPIR&/INJ MAJOR JT/BURSA W/O US Routine 09/20/2024 11:23 AM EDT Internal derangement of left shoulder CBC (INCLUDES DIFF/PLT) Routine 09/10/2024 1:46 PM EDT ELENA (obstructive sleep apnea) Gastroesophageal reflux disease without esophagitis Tobacco user XR SHOULDER 2+ VIEWS LEFT Routine 09/06/2024 9:53 AM EDT Acute pain of left shoulder XR KNEE 1-2 VIEWS RIGHT Routine 08/28/2024 10:48 AM EDT Acute pain of right knee DEXA BONE DENSITY Routine 07/17/2024 2:0 7 PM EDT POCT GLYCOSYLATED HEMOGLOBIN (HGB A1C) Routine 07/17/2024 1:16 PM EDT Type 2 diabetes mellitus with insulin therapy (HCC) MM TOMOSYNTHESIS SCREENING BI 05/03/2024 12:32 PM EDT from Last 3 Months or Most Recently Relevant to Health Maintenance Results * VT ARTHROCENTESIS ASPIR&/INJ MAJOR JT/BURSA W/O US (09/20/2024 [...] injection Left Shoulder SA space ( code 20459 LT) Procedure, treatment alternatives, risks and benefits explained, specific risks discussed. Consent was given by the patient. Patient was prepped and draped in the usual sterile fashion. Manuel [facility]ATT IN CLINIC/BEDSIDE ORDERABLES Final Result * CBC and differential (09/10/2024 1:46 PM EDT) Blood Venous blood specimen / Unknown Jenny Borrego CHERRY PICKER OPERATOR LAB BLOOD ORDERABLES Final Resu lt [facility] * XR shoulder 2+ views left (09/06/2024 9:53 AM EDT) Anatomical Region Laterality Modality Upper Extremities, Shoulder Left Radi ographic Imaging Narrative 09/06/2024 10:03 AM EDT Imaging Result: Left Shoulder AP and Scap Y No acute fracture or dislocation, comparison to xray from 2021, grossly unchanged, Xray chest [facility] 05/15 Bone Structures clavicle and scapula and humeral head appear normal alignment Glenohumeral joint space maintained, osteopenia noted moderate degenerative changes to AC joint. Soft tissues and limited visualized lung ashley unremarkable Impression: Normal shoulder with no acute bony abnormalities with AC joint arthritis. Result [facility] Manuel PRATT IMG XR PROCEDURES Edited Resu lt - Final * XR knee 1 or 2 views right (08/28/2024 10:48 AM EDT) Anatomical Region Laterality Modality Lower Extremities, Knee Right Radiogra phic Imaging Narrative 08/28/2024 11:02 AM EDT Imaging Result: X-rays AP and lateral of right knee showed severe varus deformity with [id number] articulation to the medial joint line. There is flattening of the articular surfaces medially to the tibia plateau and femoral condyle. There is marginal osteophytic formation and subchondral sclerosis noted medially and the patellofemoral joint. There is no evidence of fracture or dislocation. Bony structures viewed showed appropriate ossification. us Jr. Elvis Beal DO IMG XR PROCEDURES Final Result * DEXA bone density (07/17/2024 2:07 PM EDT) Anatomical Region Laterality Modality Body Radiographic Cecile ging Jenny Borrego NP IMG DXA PROCEDURES Final Result * (ABNORMAL) [...] EDT Narrative 05/03/2024 12:33 [place] [address] Mammography Report Signed Patient: ELMER MENESES MR#: [id number] : 1965 Acct:[id number] Age/Sex: 58 / F ADM Date: 05/03/24 Loc: MAMMO Attending Dr: Jenny Borrego NP Ordering Physician: Jenny Borrego NP Results: Date of Service: 05/03/24 Follow Up: Procedure(s): MM tomosynthesis screening BI Accession Number(s): [id number] cc: Jenny Borrego NP Patient Name: ELMER MENESES MR#: [id number] : 1965 Exam Date: 05/03/2024 Ordering Doctor: [...] at age 48. LOCATION: [facility] BREAST COMPOSITION: There are scattered areas [...] Signed By: 05/03/24 1233 DD/ 1232 TD/TT: Grants And Contracts Assistant: Procedure Note Radiology, Radiologist, MD - 05/03/2024 [place] [address] Mammography Report Signed Patient: ELMER MENESES MMR#: [id number] : 1965Acct:[id number] Age/Sex: 58 / FADM Date: 05/03/24 Loc: MAMMO Attending Dr: Jenny Borrego NP Ordering Physician: Jenny Borrego NPResults: Date of Service: 05/03/24Follow Up: Procedure(s): MM tomosynthesis screening BI Accession Number(s): [id number] cc: Jenny Borrego NP Patient Name: ELMER MENESES MR#: [id number] : 1965 Exam Date: 05/03/2024 Ordering Doctor: [...] at age 48. LOCATION: [facility] BREAST COMPOSITION: There are scattered areas [...] M.D. Signed By:05/03/24 1233 DD/ 1232 TD/TT: Grants [employer]s Assistant: Jenny Borrego NP [facility] Final Result from Last 3 Months or Most Recently Relevant to Health Maintenance [facility] ADVANTAGE Care Teams Clip On Sunglasses Inspector Relationship Specialty Start Date End Date Ludin Blanchard MD [address] [place] [address] PCP - General Family Medicine 04/28/23 Jenny Borrego NP [address] [place] [address] Nurse Practitioner Family Medicine 12/27/22
--- OUTSIDE RECORDS SUMMARY | 2024-09-28 07:41 | XMS_ITS | Encounter Summary ---
Author Organization [facility] Address [address] [place] [address] Care Team Providers Care Senior Information Security Consultant Name Role Phone Jenny Borrego NP Unavailable [phone] Ludin Blanchard MD Primary Care Provider [phone] Encounter Details Date Type Department Care Team [...] often do you attend chur ch or faith services? Never 03/24/2023 Do you belong to any clubs o r organizations such as taoist groups, unions, fraternal or athletic groups, or [...] Recorded Patient Health Questionnaire-2 Score 2 06/23/2023 [facility] Occupat ional Health - Occupational [...] [facility] [address] [facility] [place] [address] 10/09/2024 10:15 AM EDT Office Visit [facility] [address] [place] [address] Jr. Malik Beal, DO [address] [facility] [address] [place] [address] 10/16/2024 11:30 AM EDT Office Visit [facility] [address] [place] [address] Jr. Malik Beal, DO [address] [place] [address] 10/16/2024 1:40 PM EDT Office Visit [facility] [address] [place] [address] Jenny Borrego NP [address] [place] [address] 04/18/2025 11:00 AM EST Office Visit [facility] [address] [place] [address] Jenny Borrego NP [address] [place] [address] documented as of this encounter Procedures Procedure Name Priority Date/Time Associated Diagnosis Comments US ANKLE BRACHIAL INDEX ([place]) 09/12/2023 1:32 PM EDT documented in this encounter Results * US ANKLE BRACHIAL INDEX ([place]) (09/12/2023 1:32 PM EDT) Anatomical Region Laterality Modality Radiographic Cecile ging 09/12/2023 1:32 PM EDT Narrative 09/12/2023 1:35 [place] [address] Vein Report Signed Patient: ELMER MENESES MR#: [id number] : 1965 Acct:[id number] Age/Sex: 57 / F ADM Date: 09/08/23 Loc: Attending Dr: MALIK NI Ordering Physician: MALIK NI Date of Service: 09/08/23 Procedure(s): VC Ankle Brachial Index Accession Number(s): [id number] cc: Jenny Borrego WATER POLLUTION CONTROL INSPECTOR; MALIK NI [address] [address] Patient Name: ELMER MENESES MRN: [id number] date: 1965 Sex: F Assigned Patient Location: Current Patient Location: Accession/Order Number: [id number] Exam Date: 09/08/2023 11:30 Report Date: 09/12/2023 13:32 At the request of: MALIK NI Procedure: VC Ankle Brachial Index EXAM: VC Ankle Brachial Index HISTORY: I73.9 COMPARISON: None. FINDINGS: Segmental pressures presented as follows (right, left) in mmHg. Brachial: 124, 126 DPA: 100, 134 VESSEL ENGINEER: 85, 134 1st Toe: 57, 144 [place]: [...] Dictated By: Gil Chan M.D. Signed By: 09/12/23 1335 DD/ 133 TD/TT: Press Breaker: Procedure Note Radiology, Radiologist, MD - 09/13/2023 [place] [address] Vein Report Signed Patient: ELMRE MENESES MMR#: [id number] : 1965Acct:[id number] Age/Sex: 57 / FADM Date: 09/08/23 Loc: Attending Dr: MALIK NI Ordering Physician: MALIK NI Date of Service: 09/08/23 Procedure(s): VC Ankle Brachial Index Accession Number(s): [id number] cc: Jenny Borrego WATER POLLUTION CONTROL INSPECTOR; MALIK NI [place] [id number] Patient Name: ELMER MENESES MRN: [id number] date: 1965 Sex: F Assigned Patient Location: Current Patient Location: Accession/Order Number: [id number] Exam Date: 09/08/2023 11:30 Report Date: 09/12/2023 13:32 At the request of: MALIK NI Procedure: VC Ankle Brachial Index EXAM: VC Ankle Brachial Index HISTORY: I73.9 COMPARISON: None. FINDINGS: Segmental pressures presented as follows (right, left) in mmHg. Brachial: 124, 126 DPA: 100, 134 VESSEL ENGINEER: 85, 134 1st Toe: 57, 144 [place]: 0.79, 1.06 TBI: 0.45, 1.14 The [place] demonstrates mild arterial disease on the right, normal on theleft The TBI demonstrates moderate ischemia on the right, normal on the left VEIN/VC Ankle Brachial Index IMPRESSION: [place] demonstrates mild right arterial disease, normal left Electronically authenticated by: GIL CHAN Date: 09/12/2023 13:32 Dictated By: Gil Chan M.D. Signed By:09/12/23 1335 DD/ 1332 TD/TT: Press Breaker: Generic External Data Provider IMG XR PROCEDURES Final Result documented in this encounter Visit Diagnoses Not on filedocumented in this encounter Additional Health Concerns Assessment Noted Time PHQ-9 Depression Total Score: 4 03/24/19 24 5:00 PM EST documented as of this encounter Care Teams Senior Information Security Consultant Relationship Specialty Start Date End Date Ludin Blanchard MD [address] [place] [address] [place] [address] PCP - General Family Medicine 04/28/23 Jenny Borrego NP [address] [place] [address] [place] [address] Nurse Practitioner Family Medicine 12/27/22 documented as of this encounter
--- OUTSIDE RECORDS SUMMARY | 2024-09-28 07:41 | XMS_ITS | Clinical Summary ---
Author Organization [facility] tem Address [id number] [address] [place] [address] Care Team Providers Care Bobbin Cleaner Hand Name Role Phone Jenny Borrego APRN-[facility] Primary Care Provider Allergies No known active [...] Devices Not on file Insurance [address] [place] [address] [facility] MED[facility] Care Teams Bobbin Cleaner Hand Relationship Specialty Start Date End Date Jenny Borrego, SUPERVISOR [employer]-[facility] PCP - General Nurse Practitioner 04/30/24
--- OUTSIDE RECORDS SUMMARY | 2024-09-28 07:41 | XMS_ITS | Patient Health Record ---
Author Organization [facility] Address [address] [place] [address] Care Team Providers Care Licensed Practical Nurse Clinic Nurse Name Role Phone Haider Salehaníbal Unavailable [phone] Malia Soliz Unavailable [phone] Reason For Referral Reason APPROVED............ 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 (M51.362) Referral Organization [facility] Referring Provider First Name Kimberli Referring Provider Last Name St Bullock Referring Provider Speciality Orthopedic Surgery Referred Organization [facility] Referred Address [place], [place], Procedure 1 MRI Lumbar Spine w/o Dye (08013) General Notes Kelin Figueroa 2024 12:12:05 PM >, Rocio Arreola 07/27/2024 12:18:47 PM > WAITING ON TODAY'S OFFICE NOTE.Maxwell Kayla 08/01/2024 08:09:58 AM > WAITING ON 07/27 OFFICE NOTE, Rocio Arreola 08/02/2024 09:30:09 AM > STILL WAITING ON 07/27 OFFICE NOTE, Rocio Arreola 08/06/2024 01:55:07 PM > AUTHORIZATION # [id number] APPROVED AND VALID 08/07/24-10/04/24 PER IGOR. SCANNED INTO CHART AND FAXED TO [facility]. Marilu Gutiérrez 08/06/2024 04:29:59 PM > faxed Referral Priority Routine Problems Problem Type SNOMED Code ICD Code Onset Dates Problem Status W/U Status Risk Notes Problem [id number] Degeneration of intervertebral disc of lumbosacral region with discogenic back pain and lower extremity pain (M51.372) Active confirmed Encounters Encounter Location Date Provider Diagnosis [facility] Office [address] [facility] [place] [address] [place] [address] 07/27/2024 Malia [facility] Degeneration of intervertebral disc of lumbosacral [...] Date Lumbar spine, 4v flex ext - 79503 2024 MRI : Lumbosacral Spine W/O Contrast - 7 8 07/27/2024 Insurance Providers Payer Name Payer Address Payer Phone Subscriber Number Group Number Insured Name Patient Relationship to Insured Coverage Start Date Coverage End Date Medicare [employer] [address] [address] [place] [address] [id number] ELMER ELLIS Self - patient is the insured 5
--- OUTSIDE RECORDS SUMMARY | 2024-09-28 07:41 | XMS_ITS | Encounter Summary ---
Author Organization [facility] Address [address] [facility] [place] [address] Care Team Providers Care Nurse Care Manager Name Role Phone Ludin Blanchard MD Primary Care Provider [phone] Jenny Borrego FORESTRY FOREMAN Unavailable [phone] Ludin Blanchard MD Primary Care Provider [phone] Encounter Details Date Type Department Care Team (Late st Contact Info) Description 02/20/[address] [facility] [address] [place] [address] Jenny Borrego, ZELALEM [address] [place] [address] Social History Tobacco Use Types Packs/Day Years [...] [facility] [address] [place] [place] [address] 10/09/2024 10:15 AM EDT Office Visit [facility] [address] [facility] [place] [address] Jr. Elvis Beal, DO [address] [place] [address] 10/16/2024 11:30 AM EDT Office Visit [facility] [address] [place] [address] Jr. Elvis Beal, DO [address] [facility] [address] [place] [address] 10/16/2024 1:40 PM EDT Office Visit [facility] [address] [place] [address] Jenny Borrego, FORESTRY FOREMAN [address] [place] [address] 04/18/2025 11:00 AM EST Office Visit [facility] [address] [place] [address] Jenny Borrego, FORESTRY FOREMAN [address] [place] [address] documented as of this encounter Visit Diagnoses Not on filedocumented in this encounter Care Teams Nurse Care Manager Relationship Specialty Start Date End Date Ludin Blanchard MD PCP - General Family Medicine 10/06/22 04/27/23 Ludin Blanchard MD [address] [place] [address] PCP - General Family Medicine 04/28/23 Jenny Borrego NP [address] [place] [address] Nurse Practitioner Family Medicine 12/27/22 documented as of this encounter
--- OUTSIDE RECORDS SUMMARY | 2024-09-28 07:41 | XMS_ITS | Encounter Summary ---
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 Never 03/24/2023 Do you belong to [...] Recorded Patient Health Questionnaire-2 Score 1 04/17/2024 [facility] of Occupat ionme Health - Occupational Stress Questionnaire Answer Date [...] place to sleep or slept in a jail (including now)? No 03/24/2023 Comments Unknown Sex and Gender Information Value Date Recorded Sex Assigned at Not on file Legal Sex Female 7:05 PM EDT Gender Identity Not on file Sexual Orientation Not on file documented as of this encounter Miscellaneous Notes * Telephone Encounter - Jenny Borrego NP - 09/14/2024 8:44 AM EDT Pt needs r/s a fu appt [place] documented in this encounter Plan of Treatment Upcoming Encounters Date Type Department Care Team (Late st Contact Info) Description 10/01/2024 10:00 AM EDT Ancillary Procedure [facility] [address] [place] [address] 10/09/2024 10:15 AM EDT Office Visit [facility] [address] [place] [address] Jr. Elvis Beal, DO [address] [facility] [address] [place] [address] 10/16/2024 11:30 AM EDT Office Visit [facility] [address] [place] [address] Jr. Elvis Beal, DO [address] [facility] [address] [place] [address] 10/16/2024 1:40 PM EDT Office Visit [facility] [address] [place] [address] Jenny Borrego NP [address] [place] [address] 04/18/2025 11:00 AM EST Office Visit [facility] [address] [place] [address] Jenny Borrego NP [address] [place] [address] documented as of this encounter Visit Diagnoses Diagnosis CAD in [place] artery- Primary Type 2 diabetes mellitus without complications (HCC) Chronic back pain, unspecified back location, unspecified back pain laterality documented in this encounter Additional Health Concerns Assessment Noted Time PHQ-9 Depression Total Score: 4 04/17/19 25 1:00 PM EST documented as of this encounter Care Teams Scorer Single Relationship Specialty Start Date End Date Ludin Blanchard MD [address] [place] [address] PCP - General Family Medicine 04/28/23 Jenny Borrego NP [address] [place] [address] Nurse Practitioner Family Medicine 12/27/22 documented as of this encounter
--- OUTSIDE RECORDS SUMMARY | 2024-09-28 07:41 | XMS_ITS | Encounter Summary ---
Author Organization [facility] Address [address] [place] [address] Care Team Providers Care Sprinkler Tender Name Role Phone Ludin Blanchard MD Primary Care Provider [phone] Jenny Borrego NP Unavailable [phone] Ludin Blanchard MD Primary Care Provider [phone] Encounter Details Date Type Department Care Team (Late st Contact Info) Description 01/10/2023 Abstract [facility] [address] [place] [address] Deonna Finn NP Social History Tobacco Use Types Packs/Day Years [...] AM EDT Ancillary Procedure [facility] [address] [place] [place] [address] 10/09/2024 10:15 AM EDT Office Visit [facility] [address] [place] [address] Jr. Elvis Beal, DO [address] [facility] [address] [place] [address] 10/16/2024 11:30 AM EDT Office Visit [facility] [address] [place] [address] Jr. Elvis Beal, DO [address] [facility] [address] [place] [address] 10/16/2024 1:40 PM EDT Office Visit [facility] [address] [place] [address] Jenny Borrego NP [address] [place] [address] 04/18/2025 11:00 AM EST Office Visit [facility] [address] [place] [address] Jenny Borrego NP [address] [place] [address] documented as of this encounter Visit Diagnoses Not on filedocumented in this encounter Care Teams Sprinkler Tender Relationship Specialty Start Date End Date Ludin Blanchard MD PCP - General Family Medicine 10/06/22 04/27/23 Ludin Blanchard MD [address] [place] [address] PCP - General Family Medicine 04/28/23 Jenny Borrego NP [address] [place] [address] Nurse Practitioner Family Medicine 12/27/22 documented as of this encounter
--- OUTSIDE RECORDS SUMMARY | 2024-09-28 07:41 | XMS_ITS | Encounter Summary ---
Author Organization [facility] Address [address] [place] [address] Care Team Providers Care Financial Developer Name Role Phone Jenny Borrego SALES OPERATIONS SPECIALIST Unavailable [phone] Ludin Blanchard MD Primary Care Provider [phone] Encounter Details Date Type Department Care Team (Late st Contact Info) Description 04/30/2024 Orders Only [facility] [address] [place] [address] Jenny Borrego, ZELALEM [address] [place] [address] Social History Tobacco Use Types Packs/Day Years [...] How often do you attend chur or anabaptist services? Never 03/24/2023 Do you belong to any clubs o r organizations such as episcopalian groups, unions, fraternal or athletic groups, or [...] Recorded Patient Health Questionnaire-2 Score 1 04/17/2024 [facility] of Occupat ional Health - [...] Procedure [facility] [address] [facility] [place] [address] 10/09/2024 10:15 AM EDT Office Visit [facility] [address] [address] Jr. Elvis Beal, DO [address] [facility] [address] [place] [address] 10/16/2024 11:30 AM EDT Office Visit [facility] [place] [address] [place] [address] Jr. Elvis Beal, DO [address] [place] [address] 10/16/2024 1:40 PM EDT Office Visit [facility] [address] [place] [address] Jenny Borrego NP [address] [place] [address] 04/18/2025 11:00 AM EST Office Visit [facility] [address] [place] [address] Jenny Borrego, ZELALEM [address] [place] [address] documented as of this encounter Procedures [...] documented as of this encounter Care Teams Financial Developer Relationship Specialty Start Date End Date Ludin Blanchard MD [address] [place] [address] PCP - General Family Medicine 04/28/23 Jenny Borrego NP [address] [place] [address] Nurse Practitioner Family Medicine 12/27/22 documented as of this encounter
--- OUTSIDE RECORDS SUMMARY | 2024-09-28 07:41 | XMS_ITS | Encounter Summary ---
Author Organization [facility] Address [address] [place] [address] Care Team Providers Care Diesel Technician Name Role Phone Jenny Borrego NP Unavailable [phone] Ludin Blanchard MD Primary Care Provider [phone] Encounter Details Date Type Department Care Team (Latest Contact Info) Description 09/20/2024 Travel Social History Tobacco Use Types Packs/Day [...] often do you attend chur ch or synagogue services? Never 03/24/2023 Do you belong to any clubs o r organizations such as amish groups, unions, fraternal or athletic groups, or [...] Recorded Patient Health Questionnaire-2 Score 1 04/17/2024 [facility] of Occupat ional Health - Occupational Stress [...] [facility] [address] [facility] [place] [address] 10/09/2024 10:15 AM EDT Office Visit [facility] [address] [place] [address] Jr. Elvis Beal, DO [address] [place] [address] 10/16/2024 11:30 AM EDT Office Visit [facility] [address] [place] [address] Jr. Elvis Beal, DO [address] [place] [address] 10/16/2024 1:40 PM EDT Office Visit [facility] [address] [place] [address] Jenny Borrego, ZELALEM [address] [place] [address] 04/18/2025 11:00 AM EST Office Visit [facility] [address] [place] [address] Jenny Borrego, ZELALEM [address] [place] [address] documented as of this encounter Visit Diagnoses Not on filedocumented in this encounter Additional Health Concerns Assessment Noted Time PHQ-9 Depression Total Score: 4 04/17/19 25 1:00 PM EST documented as of this encounter Care Teams Diesel Technician Relationship Specialty Start Date End Date Ludin Blanchard MD [address] [place] [address] PCP - General Family Medicine 04/28/23 Jenny Borrego NP [address] [place] [address] Nurse Practitioner Family Medicine 12/27/22 documented as of this encounter
--- OUTSIDE RECORDS SUMMARY | 2024-09-28 07:41 | XMS_ITS | Encounter Summary ---
Author Organization [facility] Address [address] [place] [address] Care Team Providers Care Mold Sheet Cleaner Name Role Phone Jenny Borrego NP Unavailable [phone] Ludin Blanchard MD Primary Care Provider [phone] Encounter Details Date Type Department Care Team [...] often do you attend chur ch or jainism services? Never 03/24/2023 Do you belong to [...] Recorded Patient Health Questionnaire-2 Score 2 06/23/2023 [facility] of Occupat [...] place to sleep or slept in a retirement (including now)? No 03/24/2023 Comments Unknown Sex [...] [facility] [address] [facility] [place] [address] 10/09/2024 10:15 AM EDT Office Visit [facility] [address] [place] [address] Jr. Malik Beal, DO [address] [facility] [address] [place] [address] 10/16/2024 11:30 AM EDT Office Visit [facility] [address] [address] Jr. Malik Beal, DO [address] [place] [address] 10/16/2024 1:40 PM EDT Office Visit [facility] [address] [place] [address] Jenny Borrego NP [address] [place] [address] 04/18/2025 11:00 AM EST Office Visit [facility] [address] [place] [address] Jenny Borrego NP [address] [place] [address] documented as of this encounter Procedures Procedure Name Priority Date/Time Associated Diagnosis Comments CA ECHO DOPPLER COMPLETE 09/15/2023 1:26 PM EDT ALL GAMMA GLUTAMYL TRANSPEPTIDASE Routine 09/15/2023 7:40 AM EDT documented in this encounter Results * CA ECHO DOPPLER COMPLETE (09/15/2023 1:26 PM EDT) Anatomical Region Laterality Modality Other 09/15/2023 1:26 PM EDT Narrative 09/15/2023 1:27 [place] [address] Cardiology Report Signed Patient: ELMER MENESES MR#: [id number] : 1965 Acct:[id number] Age/Sex: 57 / F ADM Date: 09/15/23 Loc: CARD Attending Dr: MALIK NI Ordering Physician: MALIK NI Date of Service: 09/15/23 Procedure(s): CA echo doppler complete Accession Number(s): [id number] cc: Jenny Borrego AUTO OVERHAULER; MALIK NI Patient Name: ELMER MENESES MR#: [id number] : 1965 Exam Date: 09/15/2023 Ordering Doctor: [...] Signed By: 09/15/23 1327 DD/ 1326 TD/TT: Siding Coreboard Inspector: Procedure Note Radiology, Radiologist, MD - 09/15/2023 [place] [address] Cardiology Report Signed Patient: ELMER MENESES MMR#: [id number] : 1965Acct:[id number] Age/Sex: 57 / FADM Date: 09/15/23 Loc: CARD Attending Dr: MALIK NI Ordering Physician: MALIK NI Date of Service: 09/15/23 Procedure(s): CA echo doppler complete Accession Number(s): [id number] cc: Jenny Borrego NP; MALIK NI Patient Name: ELMER MENESES MR#: [id number] : 1965 Exam Date: 09/15/2023 Ordering Doctor: [...] Alberto Hyde M.D. Signed By:09/15/23 1327 DD/ 1326 TD/TT: Siding Coreboard Inspector: us Generic External Data Provider [facility] Final Result * (ABNORMAL) ALL GAMMA GLUTAMYL TRANSPEPTIDASE (09/15/2023 7:40 AM EDT) GAMMA GLUTAMYL TRANSPEPTIDASE 65(H) 8 - 55 U/L [facility] 09/15/2023 7:40 AM EDT 09/15/2023 6:29 PM EDT Narrative [facility] - 09/15/2023 6:45 PM EDT us Jenny Borrego NP [facility] documented in this encounter Visit Diagnoses Not on filedocumented in this encounter Additional Health Concerns Assessment Noted Time PHQ-9 Depression Total Score: 4 03/24/19 24 5:00 PM EST documented as of this encounter Care Teams Mold Sheet Cleaner Relationship Specialty Start Date End Date Ludin Blanchard MD [address] [place] [address] PCP - General Family Medicine 04/28/23 Jenny Borrego NP [address] [place] [address] Nurse Practitioner Family Medicine 12/27/22 documented as of this encounter
--- OUTSIDE RECORDS SUMMARY | 2024-09-28 07:42 | XMS_ITS | Encounter Summary ---
Author Organization [facility] Address [address] [place] [address] Care Team Providers Care Florist'S Decorator Name Role Phone Deondre Roth, Dawit [place] Primary Care Provider + Source Comments In the event this information is protected by the Federal Confidentiality of Alcohol and Drug AbusePatient Records regulations: The Federal rules restrict any use of the information to criminally investigate or prosecute any alcohol or drug abuse patient.[facility] Encounter Details Date Type Department Care Team (Late st Contact Info) Description 04/20/2022 Get Medical Advice Urology [address] [phone] Uri Pickens MD [address] [place] [address] Letter Social History Tobacco Use Types Packs/Day [...] N ot on file 03/08/2022 Data from: https://www.neighborhoodatlas.medicine.[facility]/. Last address used for calculation [address] 03/08/2022 Comments Unknown Sex and Gender Information Value Date Recorded Sex Assigned at Female 07/30/2024 2:43 PM EDT Legal Sex Female 1:44 PM EDT Gender Identity Female 07/30/2024 2:43 PM EDT Sexual Orientation Not on file documented as of this encounter Plan of Treatment Not on file documented as of this encounter Visit Diagnoses Not on filedocumented in this encounter Care Teams Florist'S Decorator Relationship Specialty Start Date End Date Dawit Mendosa Sr., DO PCP - General Family Medicine 10/24/14 documented as of this encounter
--- OUTSIDE RECORDS SUMMARY | 2024-09-28 07:42 | XMS_ITS | Encounter Summary ---
Author Organization [facility] Address [address] [place] [address] Care Team Providers Care Morphologist Name Role Phone Jenny Borrego RETAIL STORE MANAGER Unavailable [phone] Ludin Blanchard MD Primary Care Provider [phone] Encounter Details Date Type Department Care Team (Late st Contact Info) Description 07/11/2023 Orders Only [facility] [address] [place] [place] [address] Jenny Borrego, ZELALEM [address] [place] [address] Social History Tobacco Use Types [...] How often do you attend chur or samaritan services? Never 03/24/2023 Do you belong to any clubs o r organizations such as muslim groups, unions, fraternal or athletic groups, or [...] to sleep or slept in a senior care (including now)? No 03/24/2023 Comments Unknown Sex [...] Procedure [facility] [address] [facility] [place] [address] 10/09/2024 10:15 AM EDT [facility] Visit [facility] [address] [place] [address] Jr. Elvis Beal, DO [address] [facility] [address] [place] [address] 10/16/2024 11:30 AM EDT Office Visit [facility] [place] [place] [address] Jr. Elvis Beal, DO [address] [place] [address] 10/16/2024 1:40 PM EDT Office Visit [facility] [address] [place] [address] Jenny Borrego NP [address] [place] [address] 04/18/2025 11:00 AM EST Office Visit [facility] [address] [place] [address] Jenny Borrego NP [address] [place] [address] documented as of this encounter Procedures Procedure Name Priority Date/Time Associated Diagnosis Comments MISCELLANEOUS LAB TEST Routine 07/11/2023 3:43 PM EDT SCANNED LABS Routine 07/11/2023 10:43 AM EDT documented in this encounter Results * - Miscellaneous Test (07/11/2023 3:43 PM EDT) Jenny Borrego NP LAB BLOOD ORDERABLES Final Resu lt * SCANNED LABS (07/11/2023 10:43 AM EDT) Jenny Borrego NP LAB CHG PERFORMABLES Final Resu lt documented in this encounter Visit Diagnoses Not on filedocumented in this encounter Additional Health Concerns Assessment Noted Time PHQ-9 Depression Total Score: 4 03/24/19 5:00 PM EST documented as of this encounter Care Teams Morphologist Relationship Specialty Start Date End Date Ludin Blanchard MD [address] [place] [address] PCP - General Family Medicine 04/28/23 Jenny Borrego NP [address] [place] [address] Nurse Practitioner Family Medicine 12/27/22 documented as of this encounter
--- OUTSIDE RECORDS SUMMARY | 2024-09-28 07:42 | XMS_ITS | Encounter Summary ---
Author Organization [facility] Address [address] [place] [address] Care Team Providers Care Vocal Artist Name Role Phone Deondre Roth, Dawit [place] Primary Care Provider + Source Comments In the event this information is protected by the Federal Confidentiality of Alcohol and Drug AbusePatient Records regulations: The Federal rules restrict any use of the information to criminally investigate or prosecute any alcohol or drug abuse patient.[facility] Encounter Details Date Type Department Care Team (Late st Contact Info) Description 05/20/2022 Get Medical Advice Urology [address] [phone] Uri Pickens MD [address] [place] [address] Letter Social History Tobacco Use Types Packs/Day [...] N ot on file 03/08/2022 Data from: https://www.neighborhoodatlas.medicine.[facility]/. Last address used for calculation [address] 03/08/2022 Comments Unknown Sex and Gender Information Value Date Recorded Sex Assigned at Female 07/30/2024 2:43 PM EDT Legal Sex Female 1:44 PM EDT Gender Identity Female 07/30/2024 2:43 PM EDT Sexual Orientation Not on file documented as of this encounter Plan of Treatment Not on file documented as of this encounter Visit Diagnoses Not on filedocumented in this encounter Care Teams Vocal Artist Relationship Specialty Start Date End Date Dawit Mendosa Sr., DO PCP - General Family Medicine 10/24/14 documented as of this encounter
--- OUTSIDE RECORDS SUMMARY | 2024-09-28 07:42 | XMS_ITS | Encounter Summary ---
Author Organization [facility] Address [address] [place] [address] Care Team Providers Care Clerical Car Checker Name Role Phone Jenny Borrego CROSS COUNTRY COACH Unavailable [phone] Ludin Blanchard MD Primary Care Provider [phone] Encounter Details Date Type Department Care Team (Late st Contact Info) Description 11/21/2023 Orders Only [facility] [address] [place] [address] Jenny Borrego, ZELALEM [address] [place] [address] Social History Tobacco Use Types Packs/Day Years [...] How often do you attend chur or judaism services? Never 03/24/2023 Do you belong to any clubs o r organizations such as adventism groups, unions, fraternal or athletic groups, or [...] Recorded Patient Health Questionnaire-2 Score 2 06/23/2023 [facility] of Occupat ional Health - Occupational [...] Procedure [facility] [address] [facility] [place] [address] 10/09/2024 10:15 AM EDT Office Visit [facility] [address] [place] [address] Jr. Elvis Beal, DO [address] [facility] [address] [place] [address] 10/16/2024 11:30 AM EDT Office Visit [facility] [address] [place] [address] Jr. Elvis Beal, DO [address] [place] [address] 10/16/2024 1:40 PM EDT Office Visit [facility] [address] [place] [address] Jenny Borrego NP [address] [place] [address] 04/18/2025 11:00 AM EST Office Visit [facility] [address] [place] [address] Jenny Borrego NP [address] [place] [address] documented as of this encounter Procedures Procedure Name Priority Date/Time Associated Diagnosis Comments XR ANKLE 3+ VIEWS RIGHT Routine 11/21/2023 11:44 AM EDT documented in this encounter Results * XR ankle 3+ views right (11/21/2023 11:44 AM EDT) Anatomical Region Laterality Modality Lower Extremities, Ankle Right Radiogr aphic Imaging Jenny Borrego NP IMG XR PROCEDURES Final Result documented in this encounter Visit Diagnoses Not on filedocumented in this encounter Additional Health Concerns Assessment Noted Time PHQ-9 Depression Total Score: 4 03/24/19 24 5:00 PM EST documented as of this encounter Care Teams Clerical Car Checker Relationship Specialty Start Date End Date Ludin Blanchard MD [address] [place] [address] PCP - General Family Medicine 04/28/23 Jenny Borrego NP [address] [place] [address] Nurse Practitioner Family Medicine 12/27/22 documented as of this encounter
--- OUTSIDE RECORDS SUMMARY | 2024-09-28 07:42 | XMS_ITS | Encounter Summary ---
Author Organization [facility] Address [address] [place] [address] Care Team Providers Care Television Newscast Director Name Role Phone Jenny Borrego STORE STANDARDS ASSOCIATE Unavailable [phone] Ludin Blanchard MD Primary Care Provider Encounter Details Date Type Department Care Team (Late st Contact Info) Description 09/27/2023 Clinis[facility] Result Encounter [facility] External Department Unsolicited Jenny Borrego, ZELALEM [address] [place] [address] Social History Tobacco Use Types Packs/Day Years [...] often do you attend chur ch or yarsani services? Never 03/24/2023 Do you belong to [...] Recorded Patient Health Questionnaire-2 Score 2 06/23/2023 [facility] Questionnaire Answer Date [...] place to sleep or slept in a longterm (including now)? No 03/24/2023 Comments Unknown Sex [...] Procedure [facility] [address] [place] [address] 10/09/2024 10:15 AM EDT Office Visit [facility] [place] [address] [place] [address] Jr. Elvis Beal, DO [address] [facility] 150 [place] [address] 10/16/2024 11:30 AM EDT Office Visit [facility] [address] [facility] [place] [address] Jr. Elvis Beal, DO [address] [place] [address] 10/16/2024 1:40 PM EDT Office Visit [facility] [address] [place] [address] Jenny Borrego NP [address] [place] [address] 04/18/2025 11:00 AM EST Office Visit [facility] [address] [place] [address] Jenny Borrego NP [address] [place] [address] documented as of this encounter Procedures Procedure Name Priority Date/Time Associated Diagnosis Comments US RIGHT UPPER QUADRANT 09/27/2023 8:40 AM EDT documented in this encounter Results * US RIGHT UPPER QUADRANT (09/27/2023 8:40 AM EDT) Anatomical Region Laterality Modality Other 09/27/2023 8:40 AM EDT Narrative 09/27/2023 8:42 AM EDT [address] [address] Ultrasound Report Signed Patient: ELMER MENESES MR#: [id number] : 1965 Acct:[id number] Age/Sex: 57 / F ADM Date: 09/26/23 Loc: US Attending Dr: Jenny Borrego STORE STANDARDS ASSOCIATE Ordering Physician: Jenny Borrego NP Date of Service: 09/26/23 Procedure(s): US right upper quadrant Accession Number(s): [id number] cc: Jenny Borrego NP [address] [address] Patient Name: ELMER MENESES MRN: [id number] date: 1965 Sex: F Assigned Patient Location: US Current Patient Location: Accession/Order Number: [id number] Exam Date: 09/26/2023 10:10 Report Date: 09/27/2023 [...] Ken M.D. Signed By: 09/27/2342 DD/ TD/TT: Technical Service Rep: Procedure Note Radiology, Radiologist, MD - 09/27/2023 [place] [address] Ultrasound Report Signed Patient: ELMER MENESES [facility]#: [id number] : 1965Acct:[id number] Age/Sex: 57 / FADM Date: 09/26/23 Loc: US Attending Dr: Jenny Borrego NP Ordering Physician: Jenny Borrego NP Date of Service: 09/26/23 Procedure(s): US right upper quadrant Accession Number(s): [id number] cc: Jenny Borrego NP [address] [address] Patient Name: ELMRE MENESES MRN: [id number] date: 1965 Sex: F Assigned Patient Location: Current Patient Location: Accession/Order Number: [id number] Exam Date: 09/26/2023 10:10 Report Date: 09/27/2023 [...] Ken M.D. Signed By:09/27/23 0842 DD/ TD/TT: Technical Service Rep: Jenny Borrego NP [facility] Final Result documented in this encounter Visit Diagnoses Not on filedocumented in this encounter Additional Health Concerns Assessment Noted Time PHQ-9 Depression Total Score: 4 03/24/19 24 5:00 PM EST documented as of this encounter Care Teams Television Newscast Director Relationship Specialty Start Date End Date Ludin Blanchard MD [address] [place] [address] PCP - General Family Medicine 04/28/23 Jenny Borrego NP [address] [place] [address] Nurse Practitioner Family Medicine 12/27/22 documented as of this encounter
--- OUTSIDE RECORDS SUMMARY | 2024-09-28 07:42 | XMS_ITS | Patient Health Record ---
Author Organization [facility] [place] Address [address] [place] [address] Care Team Providers Care Skid Wrapper Name Role Phone Dr Shay Lugo Unavailable [phone] Farhan Celeste M.D. Unavailable Reason For Referral No Information Problems Problem Type SNOMED Code ICD Code Onset Dates Problem Status W/U Status Risk Notes Problem Lumbosacral plexus lesion (4812948) Lumbosacral plexus disorders (G54.1) 1 Active confirmed Plan Of Treatment No Information Insurance Providers Payer Name Payer Address Payer Phone Subscriber Number Group Number Insured Name Patient Relationship to Insured Coverage Start Date Coverage End Date [facility] [address] [place] [id number] Mayank Meneses Spouse - patient is the spouse of the insured [place] [address] [address] [id number] Melany Meneses Self - patient is the insured
--- OUTSIDE RECORDS SUMMARY | 2024-09-28 07:42 | XMS_ITS | Clinical Summary ---
Author Organization [facility] Address [address] [place] [address] Phone Care Team Providers Care Head Porter Name Role Phone Unavailable Primary Care Provider [...]
--- OUTSIDE RECORDS SUMMARY | 2024-09-28 07:42 | XMS_ITS | Encounter Summary ---
Author Organization [facility] Address [address] [place] [address] Care Team Providers Care Tariff Publishing Agent Name Role Phone Deondre Roth, Dawit [place] Primary Care Provider + Source Comments In the event this information is protected by the Federal Confidentiality of Alcohol and Drug AbusePatient Records regulations: The Federal rules restrict any use of the information to criminally investigate or prosecute any alcohol or drug abuse patient.[facility] Encounter Details Date Type Department Care Team (Late st Contact Info) Description 04/21/2022 Get Medical Advice Urology [address] [phone] Uri Pickens MD [address] [place] [address] Letter Social History Tobacco Use Types Packs/Day [...] N ot on file 03/08/2022 Data from: https://www.neighborhoodatlas.medicine.[facility]/. Last address used for calculation [address] 03/08/2022 Comments Unknown Sex and Gender Information Value Date Recorded Sex Assigned at Female 07/30/2024 2:43 PM EDT Legal Sex Female 1:44 PM EDT Gender Identity Female 07/30/2024 2:43 PM EDT Sexual Orientation Not on file documented as of this encounter Plan of Treatment Not on file documented as of this encounter Visit Diagnoses Not on filedocumented in this encounter Care Teams Tariff Publishing Agent Relationship Specialty Start Date End Date Dawit Mendosa Sr., DO PCP - General Family Medicine 10/24/14 documented as of this encounter
--- OUTSIDE RECORDS SUMMARY | 2024-09-28 07:42 | XMS_ITS | Encounter Summary ---
Author Organization [facility] Address [address] [place] [address] Care Team Providers Care Director Government Name Role Phone Deondre Roth, Dawit [place] Primary Care Provider + Source Comments In the event this information is protected by the Federal Confidentiality of Alcohol and Drug AbusePatient Records regulations: The Federal rules restrict any use of the information to criminally investigate or prosecute any alcohol or drug abuse patient.[facility] Encounter Details Date Type Department Care Team (Late st Contact Info) Description 05/08/2022 Get Medical Advice Urology [address] [phone] Uri Pickens MD [address] [place] [address] Letter Social History Tobacco Use Types Packs/Day [...] N ot on file 03/08/2022 Data from: https://www.neighborhoodatlas.medicine.[facility]/. Last address used for calculation [address] 03/08/2022 Comments Unknown Sex and Gender Information Value Date Recorded Sex Assigned at Female 07/30/2024 2:43 PM EDT Legal Sex Female 1:44 PM EDT Gender Identity Female 07/30/2024 2:43 PM EDT Sexual Orientation Not on file documented as of this encounter Plan of Treatment Not on file documented as of this encounter Visit Diagnoses Not on filedocumented in this encounter Care Teams Director Government Relationship Specialty Start Date End Date Dawit Mendosa Sr., DO PCP - General Family Medicine 10/24/14 documented as of this encounter
--- OUTSIDE RECORDS SUMMARY | 2024-09-28 07:42 | XMS_ITS | Encounter Summary ---
Author Organization [facility] Address [address] [place] [address] Care Team Providers Care Spinner Open End Name Role Phone Jenny Borrego MECHANIC ASSISTANT Unavailable [phone] Ludin Blanchard MD Primary Care Provider Encounter Details Date Type Department Care Team (Late st Contact Info) Description 08/27/2024 Abstract [facility] [address] [place] [address] Jenny Borrego NP [address] [place] [address] Social History Tobacco Use Types Packs/Day Years [...] How often do you attend chur or bahai services? Never 03/24/2023 Do you belong to [...] Recorded Patient Health Questionnaire-2 Score 1 04/17/2024 [facility] of Occupat ional [...] Procedure [facility] [address] [facility] [place] [place] [address] 10/09/2024 10:15 AM EDT [facility] [address] [place] [address] Jr. Elvis Beal, DO [address] [facility] [address] [place] [address] 10/16/2024 11:30 AM EDT [facility] [place] [address] [place] [address] Jr. Elvis Beal, DO [address] [place] [address] 10/16/2024 1:40 PM EDT Office Visit [facility] [address] [place] [address] Jenny Borrego, ZELALEM [address] [place] [address] 04/18/2025 11:00 AM EST Office Visit [facility] [address] [place] [address] Jenny Borrego, ZELALEM [address] [place] [address] documented as of this encounter Visit Diagnoses Not on filedocumented in this encounter Additional Health Concerns Assessment Noted Time PHQ-9 Depression Total Score: 4 04/17/19 25 1:00 PM EST documented as of this encounter Care Teams Spinner Open End Relationship Specialty Start Date End Date Ludin Blanchard MD [address] [place] [address] PCP - General Family Medicine 04/28/23 Jenny Borrego NP [address] [place] [address] Nurse Practitioner Family Medicine 12/27/22 documented as of this encounter
== END 2024-09-28 07:40 | disposition home or self-care (01) ==
LOC: MRI 07:39
PROVIDERS: PCP Nurse Practitioner; Visit Provider Physician Assistant
DX: M51.372 Other intervertebral disc degeneration, lumbosacral region with discogenic back pain and lower extremity pain (principal)
CPT/HCPCS: 72148

== ENCOUNTER 2024-09-28 08:45 | Outpatient (OUT) | payer MEDICARE, SELFPAY ==
--- OUTSIDE RECORDS SUMMARY | 2024-09-20 11:00 | XMS_ITS | Encounter Summary ---
Author Organization [facility] Address [address] [facility] [place] [address] Care Team Providers Care Knitting Machine Fixer Head Name Role Phone Jneny Borrego NP Unavailable [phone] Ludin Blanchard MD Primary Care Provider [phone] Reason for Referral * Clinic-Administered Medication (Routine) - Closed Specialty Diagnoses / Procedures Referred By April Referred To Contact Orthopaedic Surgery Diagnoses Internal derangement of left shoulder Procedures L Inj/Asp: L subacromial bursa Manuel Varela PA [address] [place] [address] Phone: tel: fax: [facility] [address] [facility] [address] [place] [address] Phone: tel: fax: Referral ID Status Reason Start Date Expiration Date Visits Re quested Visits Authorized [id number] Closed 09/20/2024 03/19/2025 1 1 * Imaging (Routine) - Authorized Specialty Diagnoses / Procedures Referred By April Referred To Contact Radiology Diagnoses Acute pain of left shoulder Internal derangement of left shoulder Procedures MR shoulder left wo IV contrast Manuel Varela PA [address] [place] [address] Phone: tel: fax: [facility] [address] [facility] [address] [place] [address] Phone: tel: fax: Referral ID Status Reason Start Date Expiration Date V isits Requested Visits Authorized [id number] Authorized 09/20/2024 03/19/2025 1 1 Reason for Visit * Reason Comments Pain Encounter Details Date Type Department Care Team (Late st Contact Info) Description 09/20/2024 11:00 AM EDT Office Visit [facility] [address] [place] [address] Manuel Varela PA [address] [place] [address] Acute pain of left shoulder (Primary Dx); Biceps tendon rupture, left, initial encounter; Internal derangement of left shoulder Social History Tobacco Use Types Packs/Day Years [...] often do you attend chur ch or roman catholic services? Never 03/24/2023 Do you belong to any clubs o r organizations such as religion groups, unions, fraternal or athletic groups, or [...] Recorded Patient Health Questionnaire-2 Score 1 04/17/2024 [employer] of Occupat ional Health - Occupational Stress [...] place to sleep or slept in a correction (including now)? No 03/24/2023 Comments Unknown Sex and Gender Information Value Date Recorded Sex Assigned at Not on file Legal Sex Female 7:05 PM EDT Gender Identity Not on file Sexual Orientation Not on file documented as of this encounter Progress Notes * SANTA Olmos - 09/20/2024 11:00 AM EDTAssociated Order(s): L Inj/Asp: L subacromial bursa Post-Procedure Diagnose(s): Internal derangement of left shoulder Images from the original note were not included. Orthopedic Office note: NAME: Melany Meneses : 1965 (EST PT) - RECHECK (L) SHOULDER / ARM S/P INJURY 09/02/24 (2 WKS, 4 DAYS) XRAY (L) SHOULDER 09/06/24 IN EPIC CONTINUES ICING / RESTING ARM / RESTRICTIONS. ADMITS ANTERIOR SHOULDER. MEDIAL UPPER ARM DISCOMFORTHAS RESOLVED. RADIATION POSTERIORLY. ADMITS SOME SWELLING. DENIES BRUISING. DIFFICULTY GETTING COMFORTABLE / WAKING HS. DENIES N/T. ADMITS WEAKNESS. DENIES STIFFNESS. LIMITED ROM. NO PAIN MEDS. ADMITS ICING. DENIES HEATING. TRIED BIOFREEZE - NO RELIEF. HUAN: 09/02/24 - WENT TO GET OUT OF POOL ON LADDER - FELL, TRIED TO CATCH HERSELF - NOTED IMMEDIATE PAIN TO UPPER ARM Shoulder Musculoskeletal Exam Inspection Left Left shoulder inspection is normal. Ecchymosis: mild Ecchymosis comment: anterior proximal biceps Peripheral edema: none Atrophy: none Masses: none Palpation Left Crepitus: no crepitus Increased warmth: none Tenderness: present Anterior shoulder: mild Posterior shoulder: none Clavicle: none AC joint: mild Rotator cuff: moderate Greater tuberosity: mild Trapezius: none Medial scapula: mild Superior pole of scapula: none Inferior pole of scapula: none Bicipital groove: none Proximal biceps: none Lateral arm: mild Elbow: none Range of Motion Right Right shoulder active abduction: + pain passing 90 degrees. Left Left shoulder range of motion is normal. Active ROM: abnormal and pain. Passive ROM: normal and pain. Active forward elevation: 110. Passive forward elevation: 170. Shoulder active abduction: 90. Passive abduction: 160. Active external rotation at side: 70. Passive external rotation at side: 80. Internal rotation: L5. Strength Left External rotation: 4+/5. External rotation is affected by pain. Internal rotation: 5/5. Abduction: 4/5. Abduction is affected by pain. Biceps: 5/5. Triceps: 5/5. Neurovascular Left Radial pulse: normal and 2+ Capillary refill: <3 sec Axillary nerve sensory distribution: normal Scapula Left Left shoulder scapula is normal. Position: normal Winging: none Special Tests Left Rotator Cuff Signs Neer's test: positive Maldonado test: positive Painful arc test: positive Biceps/david Signs Clicking/popping: positive Matt deformity: positive Speed's test: negative Instability Signs Anterior apprehension test: positive General Constitutional: appears stated age Neurological: alert and oriented x3 Orders Placed This Encounter Procedures L Inj/Asp: L subacromial bursa This order was created via procedure documentation MR shoulder left wo IV contrast Standing Status: Future Expected Date: 09/20/2024 Expiration Date: 09/20/2025 Scheduling Instructions: Please schedule @[facility] imaging location. Is the patient ?: No Reason for exam:: Internal Derangement left shoulder L Inj/Asp: L subacromial bursa on 09/20/2024 11:23 AM Indications: pain Details: 21 G needle, posterior approach Medications: 40 mg methylPREDNISolone acetate 40 MG/ML; 1 mL bupivacaine PF 0.5 % Outcome: tolerated well, no immediate complications Utilizing aseptic technique with universal precautions . Pt given injection Left Shoulder SA space ( code 90220 LT) Procedure, treatment alternatives, risks and benefits explained, specific risks discussed. Consent was given by the patient. Patient was prepped and draped in the usual sterile fashion. Results ICD-10-CM 1. Acute pain of left shoulder M25.512 MR shoulder left wo IV contrast 2. Biceps tendon rupture, left, initial encounter S46.212A 3. Internal derangement of left shoulder M24.812 MR shoulder left wo IV contrast F/U Dr. Beal s/p MRI to discuss need for possible: Exam noting likely proximal bicpes tendon rupture- pain to biceps improving. Pain more prevalent in shoulder concerning for cuff tear/ labral tear. Surgical and non surgical tx options discussed with conservative measures reviewed. Recommend ICE/ ELEVATION, continued activity modification in interim. Pt would consider surgical intervention to possibly improve symptoms. Assessment & Plan Left shoulder pain The biceps pain has improved, but there is increased pain in the shoulder, especially with certain motions approaching 90 degrees of abduction. Weakness with rotator cuff stressing is noted. Given the pain, weakness, and injury, an MRI is recommended for further evaluation of the symptoms. The patient is agreeable to a subacromial injection today for palliative treatment pending MRI evaluation. Formal physical therapy is not recommended at this time due to the recent bicep tendon rupture. Diagnostic plan: An MRI will be ordered to further evaluate the shoulder pain and potential internal derangement of the rotator cuff. Treatment plan: A subacromial injection will be administered today to provide palliative relief. The patient was advised to avoid strenuous activities that may exacerbate the shoulder pain. No formalphysical therapy will be initiated at this time due to the recent bicep tendon rupture. Clinical decision making: Risks and benefits of the injection were discussed, including potential temporary pain relief and the possibility of infection or increased pain. Follow-up: Follow-up will be scheduled based on MRI results to determine further treatment options. PROCEDURE Procedure Performed Subacromial injection for palliative treatment. Questions answered in laymen terms at the bedside. The diagnosis, home exercise plan and any ongoing restrictions/ recommendations reviewed. If unable to be reached in office, I recommend evaluation at nearest Emergency Room if any symptoms worsened or new symptoms develop for requiring urgent evaluation. Visit was preformed using [employer]-pilot plant operator speech recognition. documented in this encounter Plan of Treatment Upcoming Encounters Date Type Department Care Team (Late st Contact Info) Description 10/01/2024 10:00 AM EDT Ancillary Procedure [facility] [address] [facility] [place] [address] 10/09/2024 10:15 AM EDT Office Visit [facility] [address] [place] [address] Jr. Elvis Beal, DO [address] [facility] [address] [place] [address] 10/16/2024 11:30 AM EDT Office Visit [facility] [address] [facility] [address] Jr. Elvis Beal, DO [address] [facility] [address] [place] [address] 10/16/2024 1:40 PM EDT Office Visit [facility] [address] [place] [address] Jenny Borrego, OUTSIDE PLANT ENGINEER [address] [place] [address] 04/18/2025 11:00 AM EST Office Visit [facility] [address] [place] [address] Jenny Borrego, OUTSIDE PLANT ENGINEER [address] [place] [address] Scheduled Orders Name Type Priority Associated Diagnoses Orde r Schedule MR shoulder left wo IV contrast Imaging Routine Acute pain of left shoulder Internal derangement of left shoulder Expected: 09/20/2024 (Approximate), Expires: 09/20/2025 documented as of this encounter Procedures Procedure Name Priority Date/Time Associated Diagnosis Comments SD ARTHROCENTESIS ASPIR&/INJ MAJOR JT/BURSA W/O US Routine 09/20/2024 11:23 AM EDT Internal derangement of left shoulder documented in this encounter Results * SD ARTHROCENTESIS ASPIR&/INJ MAJOR JT/BURSA W/O US (09/20/2024 11:23 AM EDT) Narrative Manuel Varela PA - 09/20/2024 11:23 AM EDT SANTA Olmos 09/20/2024 12:00 PM L Inj/Asp: L subacromial bursa on 09/20/2024 11:23 AM Indications: pain Details: 21 G needle, posterior approach Medications: 40 mg methylPREDNISolone acetate 40 MG/ML; 1 mL bupivacaine PF 0.5 % Outcome: tolerated well, no immediate complications Utilizing aseptic technique with universal precautions . Pt given injection Left Shoulder SA space ( code 79302 LT) Procedure, treatment alternatives, risks and benefits explained, specific risks discussed. Consent was given by the patient. Patient was prepped and draped in the usual sterile fashion. Manuel PRATT IN CLINIC/BEDSIDE ORDERABLES Final Result documented in this encounter Visit Diagnoses Diagnosis Acute pain of left shoulder- Primary Biceps tendon rupture, left, initial encounter Internal derangement of left shoulder documented in this encounter Administered Medications Inactive Administered Medications - up to 3 most recent administrations Medication Order MAR Action Action Date Dose Rate Site bupivacaine PF (Marcaine) 0.5 % injection 1 mL 1 mL, Injection, Once PRN Procedure, Starting on Salma 09/20/24 at 1123, For 1 doseIndications:Internal derangement of left shoulder Given 09/20/2024 11:23 AM EDT 1 mL methylPREDNISolone acetate (DEPO-Medrol) injection 40 mg 40 mg, Intra-articular, Once PRN Procedure, Starting on Salma 09/20/24 at 1123, For 1 doseIndications:Internal derangement of left shoulder Given 09/20/2024 11:23 AM EDT 40 mg documented in this encounter Additional Health Concerns Assessment Noted Time PHQ-9 Depression Total Score: 4 04/17/19 25 1:00 PM EST documented as of this encounter Care Teams Knitting Machine Fixer Head Relationship Specialty Start Date End Date Ludin Blanchard MD [address] [place] [address] PCP - General Family Medicine 04/28/23 Jenny Borrego NP [address] [place] [phone] Nurse Practitioner Family Medicine 12/27/22 documented as of this encounter
--- OUTSIDE RECORDS SUMMARY | 2024-09-28 08:51 | XMS_ITS | Encounter Summary ---
Author Organization [facility] Address [address] [place] [address] Care Team Providers Care Clinical Evaluator Name Role Phone Deondre Roth, Dawit US Primary Care Provider + Source Comments In the event this information is protected by the Federal Confidentiality of Alcohol and Drug AbusePatient Records regulations: The Federal rules restrict any use of the information to criminally investigate or prosecute any alcohol or drug abuse patient.[facility] Encounter Details Date Type Department Care Team (Late st Contact Info) Description 08/21/2024 Results Follow-Up Urology [address] [place] [address] Angie Mcclellan APRN.SH[employer] LEAD [address] [place] [address] Social History Tobacco Use Types [...] is lower risk 4 10/15/2022 Data from: https://www.neighborhoodatlas.medicine.[facility].edu/. Last address used for calculation [address] 10/15/2022 Comments Unknown Sex and Gender Information Value Date Recorded Sex Assigned at Female 07/30/2024 2:43 PM EDT Legal Sex Female 1:44 PM EDT Gender Identity Female 07/30/2024 2:43 PM EDT Sexual Orientation Not on file documented as of this encounter Plan of Treatment Not on file documented as of this encounter Visit Diagnoses Not on filedocumented in this encounter Care Teams Clinical Evaluator Relationship Specialty Start Date End Date Dawit Mendosa Sr., DO PCP - General Family Medicine 10/24/14 documented as of this encounter
--- OUTSIDE RECORDS SUMMARY | 2024-09-28 08:51 | XMS_ITS | Encounter Summary ---
Author Organization [facility] Address [address] [place] [address] Care Team Providers Care Application Project Leader Name Role Phone Jenny Borrego NP Unavailable [phone] Ludin Blanchard MD Primary Care Provider Reason for Visit * Reason Onset Date Comments About referred procedure 09/20/2024 Encounter Details Date Type Department Care Team (Late st Contact Info) Description 09/20/2024 Telephone [facility] [address] [place] [address] Jr. Elvis Beal, DO [address] [facility] [address] [place] [address] About referred procedure Social History [...] How often do you attend chur or yazdanism services? Never 03/24/2023 Do you belong to any clubs o r organizations such as adventist groups, unions, fraternal or athletic groups, or [...] 09/20/2024 8:24 AM EDT Chitra from [facility] called and said that [...] EDT Ancillary Procedure [facility] [address] [place] [address] 10/09/2024 10:15 AM EDT Office Visit [facility] [address] [facility] [place] [address] Jr. Elvis Beal, DO [address] [facility] [address] [place] [address] 10/16/2024 11:30 AM EDT Office Visit [facility] [address] [facility] [place] [address] Jr. Elvis Beal, DO [address] [facility] [address] [place] [address] 10/16/2024 1:40 PM EDT Office Visit [facility] [address] [place] [address] Jenny Borrego NP [address] [place] [address] 04/18/2025 11:00 AM EST Office Visit [facility] [address] [place] [address] Jenny Borrego NP [address] [place] [address] documented as of this encounter Visit Diagnoses Not on filedocumented in this encounter Additional Health Concerns Assessment Noted Time PHQ-9 Depression Total Score: 4 04/17/19 25 1:00 PM EST documented as of this encounter Care Teams Application Project Leader Relationship Specialty Start Date End Date Ludin Blanchard MD [address] [place] [address] PCP - General Family Medicine 04/28/23 Jenny Borrego NP [address] [place] [address] Nurse Practitioner Family Medicine 12/27/22 documented as of this encounter
--- OUTSIDE RECORDS SUMMARY | 2024-09-28 08:51 | XMS_ITS | Encounter Summary ---
Author Organization [facility] Address [address] [place] [address] Care Team Providers Care Brainer Name Role Phone Dawit Mendosa MD Primary Care Provider [phone] Jenny Borrego MD Primary Care Provider [phone] Reason for Visit * Reason Comments Med Refill Encounter Details Date Type Department Care Team (Late st Contact Info) Description 02/16/2023 Refill [facility] [address] [place] [address] Elvis Benavides MD [address] [facility] [address] [facility] [place] [address] Disorder of arteries and arterioles, unspecified; Edema, [...] type documented in this encounter Care Teams Brainer Relationship Specialty Start Date End Date Dawit Mendosa MD [address] [place] [address] PCP - General 05/31/22 08/17/23 Jenny Borrego MD [address] [place] [place] [address] PCP - General Nurse Practitioner 08/18/23 documented as of this encounter
--- OUTSIDE RECORDS SUMMARY | 2024-09-28 08:51 | XMS_ITS | Encounter Summary ---
Author Organization [facility] Address [address] [place] [address] Care Team Providers Care Adapted Physical Education Specialist Name Role Phone Jenny Borrego NP Unavailable [phone] Ludin Blanchard MD Primary Care Provider [phone] Encounter Details Date Type Department Care Team [...] often do you attend chur ch or episcopal services? Never 03/24/2023 Do you belong to [...] [facility] [address] [facility] [place] [address] 10/09/2024 10:15 AM EDT Office Visit [facility] [address] [place] [address] Jr. Malik Beal, DO [address] [facility] 150 [place] [address] 10/16/2024 11:30 AM EDT Office Visit [facility] [address] [place] [address] Jr. Malik Beal, DO [address] [facility] [address] [place] [address] 10/16/2024 1:40 PM EDT Office Visit [facility] [address] [place] [address] Jenny Borrego NP [address] [place] [address] 04/18/2025 11:00 AM EST Office Visit [facility] [address] [place] [address] Jenny Borrego NP [address] [place] [address] documented as of this encounter Procedures Procedure Name Priority Date/Time Associated Diagnosis Comments NM LACHELLE PERF SPECT REST STR 09/19/2023 4:41 PM EDT documented in this encounter Results * NM LACHELLE PERF SPECT REST STR (09/19/2023 4:41 PM EDT) Anatomical Region Laterality Modality Other 09/19/2023 4:41 PM EDT Narrative 09/19/2023 4:42 PM EDT [place] [id number] Nuclear Medicine Report Signed Patient: ELMER MENESES MR#: [id number] : 1965 Acct:[id number] Age/Sex: 57 / F ADM Date: 09/15/23 Loc: CARD Attending Dr: MALIK NI Ordering Physician: MALIK NI Date of Service: 09/15/23 Procedure(s): NM lachelle perf SPECT rest str Accession Number(s): [id number] cc: Jenny Borrego SHEATHER; MALIK NI Patient Name: ELMER MENESES MR#: [id number] : 1965 Exam Date: 09/15/2023 Ordering Doctor: [...] QUALITY OF STUDY: Excellent. PERFUSION DEFECT: LOCATION: [place]. SIZE: Small (1-2 segments). SEVERITY: Mild. TYPE: [...] Signed By: 09/19/23 164 DD/ 164 TD/TT: Assistant Professor Of Nursing: Procedure Note Radiology, Radiologist, MD - 09/19/2023 [place] [address] Nuclear Medicine Report Signed Patient: ELMER MENESES MMR#: [id number] : 1965Acct:[id number] Age/Sex: 57 / FADM Date: 09/15/23 Loc: CARD Attending Dr: MALIK NI Ordering Physician: MALIK NI Date of Service: 09/15/23 Procedure(s): NM lachelle perf SPECT rest str Accession Number(s): [id number] cc: Jenny Borrego NP; MALIK NI Patient Name: ELMER MENESES MR#: [id number] : 1965 Exam Date: 09/15/2023 Ordering Doctor: [...] QUALITY OF STUDY: Excellent. PERFUSION DEFECT: LOCATION: [place]. SIZE: Small (1-2 segments). SEVERITY: Mild. TYPE: [...] M.D. Signed By:09/19/23 1642 DD/ 164 TD/TT: Assistant Professor Of Nursing: Generic External Data Provider [facility] Final Result documented in this encounter Visit Diagnoses Not on filedocumented in this encounter Additional Health Concerns Assessment Noted Time PHQ-9 Depression Total Score: 4 03/24/19 24 5:00 PM EST documented as of this encounter Care Teams Adapted Physical Education Specialist Relationship Specialty Start Date End Date Ludin Blanchard MD [address] [place] [address] PCP - General Family Medicine 04/28/23 Jenny Borrego NP [address] [place] [address] Nurse Practitioner Family Medicine 12/27/22 documented as of this encounter
--- OUTSIDE RECORDS SUMMARY | 2024-09-28 08:51 | XMS_ITS | Encounter Summary ---
Author Organization [facility] Address [address] [place] [address] Care Team Providers Care Public Affairs Specialist Name Role Phone Jenny Borrego FLEXOGRAPHIC PRINTING MACHINIST Unavailable [phone] Ludin Blanchard MD Primary Care Provider Encounter Details Date Type Department Care Team (Late st Contact Info) Description 04/30/2024 Orders Only [facility] [address] [place] [address] Jenny Borrego, ZELALEM [address] [place] [address] Social History Tobacco Use Types Packs/Day Years [...] any clubs o r organizations such as rastafari groups, unions, fraternal or athletic groups, or [...] Recorded Patient Health Questionnaire-2 Score 1 04/17/2024 [facility] Occupat ional [facility] - Occupational [...] Procedure [facility] [address] [facility] [place] [address] 10/09/2024 10:15 AM EDT [facility] [address] [place] [address] Jr. Elvis Beal, DO [address] [facility] [address] [place] [address] 10/16/2024 11:30 AM EDT Office Visit [facility] [address] [place] [address] Jr. Elvis Beal, DO [address] [facility] [address] [place] [address] 10/16/2024 1:40 PM EDT Office Visit [facility] [address] [place] [address] Jenny Borrego NP [address] [place] [address] 04/18/2025 11:00 AM EST Office Visit [facility] [address] [place] [address] Jenny Borrego, ZELALEM [address] [place] [address] documented as of this encounter Procedures [...] documented as of this encounter Care Teams Public Affairs Specialist Relationship Specialty Start Date End Date Ludin Blanchard MD [address] [place] [address] PCP - General Family Medicine 04/28/23 Jenny Borrego NP [address] [place] [address] Nurse Practitioner Family Medicine 12/27/22 documented as of this encounter
--- OUTSIDE RECORDS SUMMARY | 2024-09-28 08:51 | XMS_ITS | Encounter Summary ---
Author Organization [facility] Address [address] [place] [address] Care Team Providers Care Resident Associate Name Role Phone Jenny Borrego NP Unavailable [phone] Ludin Blanchard MD Primary Care Provider [phone] Encounter Details Date Type Department Care Team [...] any clubs o r organizations such as worship groups, unions, fraternal or athletic groups, or [...] Recorded Patient Health Questionnaire-2 Score 2 06/23/2023 [facility] of Occupat ional Health - Occupational [...] place to sleep or slept in a assisted (including now)? No 03/24/2023 Comments Unknown Sex [...] [facility] [address] [facility] [place] [address] 10/09/2024 10:15 AM EDT Office Visit [facility] [address] [place] [address] Jr. Malik Beal, DO [address] [facility] 150 [place] [address] 10/16/2024 11:30 AM EDT Office Visit [facility] [address] [address] Jr. Malik Beal, DO [address] [facility] [address] [place] [address] 10/16/2024 1:40 PM EDT Office Visit [facility] [address] [place] [address] Jenny Borrego NP [address] [place] [address] 04/18/2025 11:00 AM EST Office Visit [facility] [address] [place] [address] Jenny Borrego NP [address] [place] [address] documented as of this encounter Procedures Procedure Name Priority Date/Time Associated Diagnosis Comments US ANKLE BRACHIAL INDEX ([place]) 09/12/2023 1:32 PM EDT documented in this encounter Results * US ANKLE BRACHIAL INDEX ([place]) (09/12/2023 1:32 PM EDT) Anatomical Region Laterality Modality Radiographic Cecile ging 09/12/2023 1:32 PM EDT Narrative 09/12/2023 1:35 [place] [address] Vein Report Signed Patient: ELMER MENESES MR#: [id number] : 1965 Acct:[id number] Age/Sex: 57 / F ADM Date: 09/08/23 Loc: Attending Dr: MALIK NI Ordering Physician: MALIK NI Date of Service: 09/08/23 Procedure(s): VC Ankle Brachial Index Accession Number(s): [id number] cc: Jenny Borrego KNITTING SUPERVISOR; MALIK NI [address] [address] Patient Name: ELMER MENESES MRN: [id number] date: 1965 Sex: F Assigned Patient Location: Current Patient Location: Accession/Order Number: [id number] Exam Date: 09/08/2023 11:30 Report Date: 09/12/2023 13:32 At the request of: MALIK NI Procedure: VC Ankle Brachial Index EXAM: VC Ankle Brachial Index HISTORY: I73.9 COMPARISON: None. FINDINGS: Segmental pressures presented as follows (right, left) in mmHg. Brachial: 124, 126 DPA: 100, 134 BARREL LEVELER: 85, 134 1st Toe: 57, 144 [place]: [...] Signed By: 09/12/23 1335 DD/ 133 TD/TT: Nurse Midwife/Clinical Instructor: Procedure Note Radiology, Radiologist, MD - 09/13/2023 [place] [address] Vein Report Signed Patient: ELMER MENESES MMR#: [id number] : 1965Acct:[id number] Age/Sex: 57 / FADM Date: 09/08/23 Loc: Attending Dr: MALIK NI Ordering Physician: MALIK NI Date of Service: 09/08/23 Procedure(s): VC Ankle Brachial Index Accession Number(s): [id number] cc: Jenny Borrego KNITTING SUPERVISOR; MALIK NI [place] [id number] Patient Name: ELMER MENESES MRN: [id number] date: 1965 Sex: F Assigned Patient Location: Current Patient Location: Accession/Order Number: [id number] Exam Date: 09/08/2023 11:30 Report Date: 09/12/2023 13:32 At the request of: MALIK NI Procedure: VC Ankle Brachial Index EXAM: VC Ankle Brachial Index HISTORY: I73.9 COMPARISON: None. FINDINGS: Segmental pressures presented as follows (right, left) in mmHg. Brachial: 124, 126 DPA: 100, 134 BARREL LEVELER: 85, 134 1st Toe: 57, 144 [place]: [...] M.D. Signed By:09/12/23 1335 DD/ 1332 TD/TT: Nurse Midwife/Clinical Instructor: Generic External Data Provider IMG XR PROCEDURES Final Result documented in this encounter Visit Diagnoses Not on filedocumented in this encounter Additional Health Concerns Assessment Noted Time PHQ-9 Depression Total Score: 4 03/24/19 24 5:00 PM EST documented as of this encounter Care Teams Resident Associate Relationship Specialty Start Date End Date Ludin Blanchard MD [address] [place] [address] PCP - General Family Medicine 04/28/23 Jenny Borrego NP [address] [place] [address] Nurse Practitioner Family Medicine 12/27/22 documented as of this encounter
--- OUTSIDE RECORDS SUMMARY | 2024-09-28 08:51 | XMS_ITS | Encounter Summary ---
Author Organization [facility] Address [address] [place] [address] Care Team Providers Care Felter Tennis Balls Name Role Phone Jenny Borrego MEDICAL DEVICE SALES REPRESENTATIVE Unavailable [phone] Ludin Blanchard MD Primary Care Provider [phone] Encounter Details Date Type Department Care Team (Late st Contact Info) Description 09/27/2023 Orders Only [facility] [address] [place] [address] Jenny Borrego, ZELALEM [address] [place] [address] [place] [address] Social History Tobacco Use Types [...] Health Questionnaire-2 Score 2 06/23/2023 [facility] of Occupat ional Health - Occupational Stress [...] [address] [facility] [place] [address] 10/09/2024 10:15 AM EDT Office Visit [facility] [address] [place] [address] Jr. Elvis Beal, DO [address] [facility] 150 [place] [address] 10/16/2024 11:30 AM EDT Office Visit [facility] [place] [address] Jr. Elvis Bela, DO [address] [facility] [address] [place] [address] 10/16/2024 1:40 PM EDT Office Visit [facility] [address] [place] [address] Jenny Borrego NP [address] [place] [address] 04/18/2025 11:00 AM EST Office Visit [facility] [address] [place] [address] Jenny Borrego NP [address] [place] [address] documented as of this encounter Procedures Procedure Name Priority Date/Time Associated Diagnosis Comments SCANNED LABS Routine 09/27/2023 12:00 PM EDT documented in this encounter Results * SCANNED LABS (09/27/2023 12:00 PM EDT) us Jenny Borrego MEDICAL DEVICE SALES REPRESENTATIVE LAB CHG PERFORMABLES Final Resu lt documented in this encounter Visit Diagnoses Not on filedocumented in this encounter Additional Health Concerns Assessment Noted Time PHQ-9 Depression Total Score: 4 03/24/19 24 5:00 PM EST documented as of this encounter Care Teams Felter Tennis Balls Relationship Specialty Start Date End Date Ludin Blanchard MD [address] [place] [address] PCP - General Family Medicine 04/28/23 Jenny Borrego NP [address] [place] [address] Nurse Practitioner Family Medicine 12/27/22 documented as of this encounter
--- OUTSIDE RECORDS SUMMARY | 2024-09-28 08:51 | XMS_ITS | Encounter Summary ---
Author Organization [facility] Address [address] [place] [address] Care Team Providers Care Cleaner And Presser Name Role Phone Dawit Mendosa MD Primary Care Provider [phone] Jenny Borrego MD Primary Care Provider [phone] Reason for Visit * Reason Comments Med Refill Encounter Details Date Type Department Care Team (Late st Contact Info) Description 02/21/2022 Refill [facility] [address] [place] [address] Elvis Benavides MD [address] [facility] [address] [facility] [place] [address] Atherosclerotic heart disease of [place] coronary artery without angina pectoris Social History [...] Visit Diagnoses Diagnosis Atherosclerotic heart disease of [facility] coronary artery without angina pectoris documented in this encounter Care Teams Cleaner And Presser Relationship Specialty Start Date End Date Dawit Mendosa MD [address] [place] [address] PCP - General 05/31/22 08/17/23 Jenny Borrego MD [address] [place] [address] PCP - General Nurse Practitioner 08/18/23 documented as of this encounter
--- OUTSIDE RECORDS SUMMARY | 2024-09-28 08:51 | XMS_ITS | Encounter Summary ---
Author Organization [facility] Address [address] [place] [address] Care Team Providers Care Fold Skiver Name Role Phone Dawit Mendosa MD Primary Care Provider [phone] Jenny Borrego MD Primary Care Provider [phone] Reason for Visit * Reason Comments Med Refill Encounter Details Date Type Department Care Team (Late st Contact Info) Description 03/11/[address] [facility] [address] [place] [address] Elvis Benavides MD [address] [facility] [address] [place] [address] Essential (primary) hypertension Social History Tobacco Use [...] hypertension documented in this encounter Care Teams Fold Skiver Relationship Specialty Start Date End Date Dawit Mendosa MD [address] [place] [address] PCP - General 05/31/22 08/17/23 Jenny Borrego MD [address] [place], [place] [address] PCP - General Nurse Practitioner 08/18/23 documented as of this encounter
--- OUTSIDE RECORDS SUMMARY | 2024-09-28 08:51 | XMS_ITS | Encounter Summary ---
Author Organization [facility] Address [address] [facility] [place] [address] Care Team Providers Care Life Insurance Actuary Name Role Phone Ludin Blanchard MD Primary Care Provider [phone] Jenny Borrego SITE WORKER Unavailable [phone] Ludin Blanchard MD Primary Care Provider [phone] Encounter Details Date Type Department Care Team (Late st Contact Info) Description 02/20/2023 Abstract [facility] [address] [place] [address] Jenny Borrego, ZELALEM [address] [place] [address] Social History Tobacco Use Types Packs/Day Years [...] [facility] [address] [place] [address] 10/09/2024 10:15 AM EDT Office Visit [facility] [address] [facility] [address] Jr. Elvis Beal, DO [address] [place] [address] 10/16/2024 11:30 AM EDT Office Visit [facility] [address] [place] [address] Jr. Elvis Beal, DO [address] [facility] [address] [place] [address] 10/16/2024 1:40 PM EDT Office Visit [facility] [address] [place] [address] Jenny Borrego, SITE WORKER [address] [place] [address] 04/18/2025 11:00 AM EST Office Visit [facility] [address] [place] [address] Jenny Borrego, SITE WORKER [address] [place] [address] documented as of this encounter Visit Diagnoses Not on filedocumented in this encounter Care Teams Life Insurance Actuary Relationship Specialty Start Date End Date Ludin Blanchard MD PCP - General Family Medicine 10/06/22 04/27/23 Ludin Blanchard MD [address] [place] [address] PCP - General Family Medicine 04/28/23 Jenny Borrego NP [address] [place] [address] Nurse Practitioner Family Medicine 12/27/22 documented as of this encounter
--- OUTSIDE RECORDS SUMMARY | 2024-09-28 08:51 | XMS_ITS | Encounter Summary ---
Author Organization [facility] Address [address] [place] [address] Care Team Providers Care Batt Packer Name Role Phone Jenny Borrego GIS PROGRAMMER Unavailable [phone] Ludin Blanchard MD Primary Care Provider Reason for Visit * Reason Comments Med Refill Encounter Details Date Type Department Care Team (Late st Contact Info) Description 09/13/2024 Refill [facility] [address] [place] [address] Jenny Borrego, GIS PROGRAMMER [address] [place] [address] CAD in [place]ampanoag artery (Primary Dx); Type 2 diabetes mellitus [...] How often do you attend chur or denominational services? Never 03/24/2023 Do you belong to any clubs o r organizations such as shinto groups, unions, fraternal or athletic groups, or [...] Recorded Patient Health Questionnaire-2 Score 1 04/17/2024 [facility] - Occupational Stress Questionnaire Answer Date [...] AM EDT Ancillary Procedure [facility] [address] [place] [address] 10/09/2024 10:15 AM EDT Office Visit [facility] [address] [place] [address] Jr. Elvis Beal, DO [address] [facility] [address] [place] [address] 10/16/2024 11:30 AM EDT Office Visit [facility] [address] [place] [address] Jr. Elvis Beal, DO [address] [facility] 150 [place] [address] 10/16/2024 1:40 PM EDT Office Visit [facility] [address] [place] [address] Jenny Borrego NP [address] [place] [address] 04/18/2025 11:00 AM EST Office Visit [facility] [address] [place] [address] Jenny Borrego NP [address] [place] [address] documented as of this encounter Visit Diagnoses Diagnosis CAD in wampanoag artery- Primary Type 2 diabetes mellitus without complications (HCC) Chronic back pain, unspecified back location, unspecified back pain laterality documented in this encounter Additional Health Concerns Assessment Noted Time PHQ-9 Depression Total Score: 4 04/17/19 25 1:00 PM EST documented as of this encounter Care Teams Batt Packer Relationship Specialty Start Date End Date Ludin Blanchard MD [address] [place] [address] PCP - General Family Medicine 04/28/23 Jenny Borrego NP [address] [place] [address] Nurse Practitioner Family Medicine 12/27/22 documented as of this encounter
--- OUTSIDE RECORDS SUMMARY | 2024-09-28 08:51 | XMS_ITS | Clinical Summary ---
Author Organization [facility] Address [address] [place] [address] Care Team Providers Care Yoke Setter Name Role Phone Jenny Borrego NP Unavailable [phone] Ludin Blanchard MD Primary Care Provider Allergies No known active allergies Medications ASPIRIN 81 MG chewable tablet Aspir-81 Acti ve metoprolol succinate XL (Toprol-XL) 50 MG 24 hr tablet 1 (one) time each day at the same time. Active Continuous Blood Gluc Sensor (FreeStyle Joelle 2 Sensor) [facility] USE TO TEST BLOOD SUGAR 4 TIMES [...] clopidogrel (Plavix) 75 MG tabletIndication s:CAD in [place]ag[place] artery Take 1 tablet (75 mg) by [...] bupivacaine PF (Marcaine) 0.5 % injection 1 mLIndications:Wage Analyst al derangement of left shoulder 1 mL IJ Once PRN Procedure 09/20/2024 09/20/2024 Ended methylPREDNISolone acetate (DEPO-Medrol) injection 40 mgIndications:Wage Analyst al derangement of left shoulder 40 mg IX Once PRN Procedure 09/20/2024 09/20/2024 Ended Active Problems Problem Noted Date Diagnosed Date Atherosclerosis of skagway ar teries of extremities with rest pain, [...] Assessment & Plan (04/17/2024 6:40 AM EST): .ARMENIAN Assessment & Plan (01/16/2024 2:20 PM EST): [...] of the risks of continued smoking: stroke, OK, all forms of cancer, lung disease, and [...] of the risks of continued smoking: stroke, OK, all forms of cancer, lung disease, and [...] EST): Recommend quitting, pt declines CAD in skagway artery 04/27/2019 Assessment & Plan (04/17/2024 6:42 [...] Department Care Team Description 09/24/2024 Abstract [facility] [address] [place] [address] Jenny Borrego NP 09/20/2024 11:00 AM EDT Office Visit [facility] [address] [address] [place] [address] Manuel Varela PA Acute pain of left shoulder (Primary Dx); Biceps tendon rupture, left, initial encounter; Internal derangement of left shoulder 09/20/2024 Travel 09/20/2024 Telephone [facility] [address] [place] [address] Jr. Elvis Beal DO About referred procedure 09/13/2024 Refill [facility] [address] [place] [address] Jenny Borrego NP CAD in skagway artery (Primary Dx); Type 2 diabetes mellitus without complications (HCC); Chronic back pain, unspecified back location, unspecified back pain laterality 09/06/2024 10:00 AM EDT Office Visit [facility] [address] [place] [address] Manuel Varela PA Acute pain of left shoulder (Primary Dx); Biceps tendon rupture, left, initial encounter 09/06/2024 9:55 AM EDT Ancillary Procedure [facility] [address] [place] [address] 09/06/[address] [facility] [address] [place] [address] Manuel Varela PA 09/06/2024 Travel 08/28/2024 10:50 AM EDT Ancillary Procedure [facility] [place] [address] 08/28/2024 10:30 AM EDT Office Visit [facility] [address] [facility] [place] [address] Jr. Elvis Beal, DO Primary osteoarthritis of right knee (Primary Dx); Acute pain of right knee 08/28/2024 Refill [facility] [address] [place] [address] Jenny Borrego, ZELALEM Bilateral lower extremity edema 08/28/2024 Bamboo flowsheet [facility] [place] [address] Jr. Elvis Beal, DO 08/28/2024 Travel 08/27/2024 Abstract [facility] [address] [place] [address] Jenny Borrego NP 07/30/2024 Telephone [facility] [address] [place] [address] Jr. Elvis Beal, DO pain mgmt 07/30/2024 Abstract [facility] [address] [place] [address] Jenny Borrego, ZELALEM 07/17/2024 1:00 PM EDT [facility] [address] [place] [address] Jenny Borrego, ZELALEM Type 2 diabetes mellitus with diabetic neuropathy, with long-term current use of insulin (HCC) (Primary Dx); ELENA (obstructive sleep apnea); PAD (peripheral artery disease); Primary hypertension ; Gastroesophageal reflux disease without esophagitis; Class 3 severe obesity due to excess calories with serious comorbidity and body mass index (BMI) of 45.0 to 49.9 in adult ([facility]); Type 2 diabetes mellitus with insulin therapy ([facility]); Tobacco user; Mixed hyperlipidemia ; Anxiety and depression ; Hypertriglyceridemia ; Environmental and seasonal allergies 07/17/2024 Orders Only [facility] [address] [place] [address] Jenny Borrego, ZELALEM 07/17/2024 Bamboo flowsheet [facility] [address] [place] [address] Jenny Borrego, ZELALEM 07/05/2024 Refill [facility] [address] [place] [address] Jenny Borrego, ZELALEM Bronchitis 07/03/2024 9:30 AM EDT Office Visit [facility] [address] [place] [address] Jr. Elvis Beal DO Acute pain of right knee (Primary Dx); History of arthroscopy of right knee 07/03/2024 Bamboo flowsheet [facility] [address] [place] [address] Jr. Elvis Beal DO 07/03/2024 Travel 06/28/2024 Refill [facility] [address] [place] [address] Jenny Borrego, PAYROLL BOOKKEEPER Anemia, unspecified from Last 3 Months Immunizations [...] often do you attend chur ch or christianity services? Never 03/24/2023 Do you belong to any clubs o r organizations such as lutheran groups, unions, fraternal or athletic groups, or [...] Recorded Patient Health Questionnaire-2 Score 1 04/17/2024 [facility] Questionnaire Answer Date Recorded [...] EDT Ancillary Procedure [facility] [address] [place] [address] 10/09/2024 10:15 AM EDT Office Visit [facility] [address] [place] [address] Jr. Elvis Beal, DO [address] [facility] [address] [place] [address] 10/16/2024 11:30 AM EDT Office Visit [facility] [address] [place] [address] Jr. Elvis Beal, DO [address] [facility] [address] [place] [address] 10/16/2024 1:40 PM EDT Office Visit [facility] [address] [place] [address] Jenny Borrego, ZELALEM [address] [place] [address] 04/18/2025 11:00 AM EST Office Visit [facility] [address] [place] [address] Jenny Borrego, ZELALEM [address] [place] [address] Health Maintenance Due Date Last Done Comments [...] Procedure Name Priority Date/Time Associated Diagnosis Comments IL ARTHROCENTESIS ASPIR&/INJ MAJOR JT/BURSA W/O US Routine [...] Recently Relevant to Health Maintenance Results * IL ARTHROCENTESIS ASPIR&/INJ MAJOR JT/BURSA W/O US (09/20/2024 [...] injection Left Shoulder SA space ( code 91818 LT) Procedure, treatment alternatives, risks and benefits explained, specific risks discussed. Consent was given by the patient. Patient was prepped and draped in the usual sterile fashion. Manuel [facility]ATT IN CLINIC/BEDSIDE ORDERABLES Final Result * CBC and differential (09/10/2024 1:46 PM EDT) Blood Venous blood specimen / Unknown Jenny Borrego PAYROLL BOOKKEEPER LAB BLOOD ORDERABLES Final Resu lt [facility] [...] bony abnormalities with AC joint arthritis. Result [facility] Manuel PRATT IMG XR PROCEDURES Edited Resu lt - Final * XR knee 1 or 2 views right (08/28/2024 10:48 AM EDT) Anatomical Region Laterality Modality Lower Extremities, Knee Right Radiogra phic Imaging Narrative 08/28/2024 11:02 AM EDT Imaging Result: X-rays AP and lateral of right knee showed severe varus deformity with [id number] articulation to the medial joint line. There [...] EDT Narrative 05/03/2024 12:33 [place] [address] Mammography Report Signed Patient: ELMER MENESES MR#: [id number] : 1965 Acct:[id number] Age/Sex: 58 / F ADM Date: 05/03/24 Loc: MAMMO Attending Dr: Jenny Borrego NP Ordering Physician: Jenny Borrego NP Results: Date of Service: 05/03/24 Follow Up: Procedure(s): MM tomosynthesis screening BI Accession Number(s): [id number] cc: Jenny Borrego NP Patient Name: ELMER MENESES MR#: [id number] : 1965 Exam Date: 05/03/2024 Ordering Doctor: [...] lung cancer at age 48. LOCATION: [facility] BREAST COMPOSITION: There are scattered areas [...] Signed By: 05/03/24 1233 DD/ 1232 TD/TT: Strategic Partnership Manager: Procedure Note Radiology, Radiologist, MD - 05/03/2024 [place] [address] Mammography Report Signed Patient: ELMER MENESES MMR#: [id number] : 1965Acct:[id number] Age/Sex: 58 / FADM Date: 05/03/24 Loc: MAMMO Attending Dr: Jenny Borrego NP Ordering Physician: Jenny Borrego NPResults: Date of Service: 05/03/24Follow Up: Procedure(s): MM tomosynthesis screening BI Accession Number(s): [id number] cc: Jenny Borrego NP Patient Name: ELMER MENESES MR#: [id number] : 1965 Exam Date: 05/03/2024 Ordering Doctor: [...] lung cancer at age 48. LOCATION: [facility] BREAST COMPOSITION: There are scattered areas [...] on 05/03/2024 at 12:32 Dictated By: Vinnie Wooyd M.D. Signed By:05/03/24 1233 DD/ 1232 TD/TT: Strategic Partnership Manager: Jenny Borrego NP [facility] Final Result from Last 3 Months or Most Recently Relevant to Health Maintenance [facility] Care Teams Yoke Setter Relationship Specialty Start Date End Date Ludin Blanchard MD [address] [place] [address] PCP - General Family Medicine 04/28/23 Jenny Borrego NP [address] [place] [address] Nurse Practitioner Family Medicine 12/27/22
--- OUTSIDE RECORDS SUMMARY | 2024-09-28 08:51 | XMS_ITS | Encounter Summary ---
Author Organization [facility] Address [address] [place] [address] Care Team Providers Care Daily Sales Audit Clerk Name Role Phone Jenny Borrego MANAGER RETIREMENT Unavailable [phone] Ludin Blanchard MD Primary Care Provider [phone] Encounter Details Date Type Department Care Team (Late st Contact Info) Description 07/17/2024 Orders Only [facility] [address] [place] [address] Jenny Borrego, ZELALEM [address] [place] [address] Social History Tobacco Use Types [...] How often do you attend chur or restorationist services? Never 03/24/2023 Do you belong to any clubs o r organizations such as anglican groups, unions, fraternal or athletic groups, or [...] Recorded Patient Health Questionnaire-2 Score 1 04/17/2024 [facility] ional Health - Occupational [...] [facility] [address] [facility] [place] [address] 10/09/2024 10:15 AM EDT Office Visit [facility] [address] [place] [address] Jr. Elvis Beal, DO [address] [facility] [address] [place] [address] 10/16/2024 11:30 AM EDT Office Visit [facility] [place] [address] Jr. Elvis Beal, DO [address] [place] [address] 10/16/2024 1:40 PM EDT Office Visit [facility] [address] [place] [address] Jenny Borrego NP [address] [place] [address] 04/18/2025 11:00 AM EST Office Visit [facility] [address] [place] [address] Jenny Borrego, ZELALEM [address] [place] [address] documented as of this encounter Procedures Procedure Name Priority Date/Time Associated Diagnosis Comments DEXA BONE DENSITY Routine 07/17/2024 2:07 PM EDT documented in this encounter Results * DEXA bone density (07/17/2024 2:07 PM EDT) Anatomical Region Laterality Modality Body Radiographic Cecile ging us Jenny Borrego MANAGER RETIREMENT IMG DXA PROCEDURES Final Result documented in this encounter Visit Diagnoses Not on filedocumented in this encounter Additional Health Concerns Assessment Noted Time PHQ-9 Depression Total Score: 4 04/17/19 25 1:00 PM EST documented as of this encounter Care Teams Daily Sales Audit Clerk Relationship Specialty Start Date End Date Ludin Blanchard MD [address] [place] [address] PCP - General Family Medicine 04/28/23 Jenny Borrego NP [address] [place] [address] Nurse Practitioner Family Medicine 12/27/22 documented as of this encounter
--- OUTSIDE RECORDS SUMMARY | 2024-09-28 08:51 | XMS_ITS ---
Author Organization [facility] Address [address] [place] [address] Care Team Providers Care Coating Mixer Name Role Phone Jenny Borrego MD Primary Care Provider [phone] Active Problems Problem Noted Date Diagnosed Date [...]
--- OUTSIDE RECORDS SUMMARY | 2024-09-28 08:51 | XMS_ITS | Clinical Summary ---
Author Organization [facility] tem Address [id number] [address] [place] [address] Care Team Providers Care Packing Supervisor Name Role Phone Jenny Borrego APRN-[employer] BPM ARCHITECT Primary Care Provider Allergies No known active [...] Devices Not on file Insurance [address] [place] [address] [facility] MEDICARE Care Teams Packing Supervisor Relationship Specialty Start Date End Date Jenny Borrego, WOODEN BOAT BUILDER-[employer] BPM ARCHITECT PCP - General Nurse Practitioner 04/30/24
--- OUTSIDE RECORDS SUMMARY | 2024-09-28 08:51 | XMS_ITS | Encounter Summary ---
Author Organization [facility] Address [address] [place] [address] Care Team Providers Care Technician Inventory Specialist Name Role Phone Jenny Borrego NP Unavailable [phone] Ludin Blanchard MD Primary Care Provider [phone] Encounter Details Date Type Department Care Team [...] often do you attend chur ch or gnosticism services? Never 03/24/2023 Do you belong to any clubs o r organizations such as protestant groups, unions, fraternal or athletic groups, or [...] Recorded Patient Health Questionnaire-2 Score 2 06/23/2023 [facility] Occupat ional Health - Occupational [...] [facility] [address] [facility] [place] [address] 10/09/2024 10:15 AM EDT Office Visit [facility] [address] [place] [address] Jr. Malik Beal, DO [address] [facility] [address] [place] [address] 10/16/2024 11:30 AM EDT Office Visit [facility] [address] [address] Jr. Malik Beal, DO [address] [place] [address] [place] [address] 10/16/2024 1:40 PM EDT Office Visit [facility] [address] [place] [address] Jenny Borrego NP [address] [place] [address] 04/18/2025 11:00 AM EST Office Visit [facility] [address] [place] [address] Jenny Borrego NP [address] [place] [address] documented as of this encounter Procedures Procedure Name Priority Date/Time Associated Diagnosis Comments CA ECHO DOPPLER COMPLETE 09/15/2023 1:26 PM EDT ALL GAMMA GLUTAMYL TRANSPEPTIDASE Routine 09/15/2023 7:40 AM EDT documented in this encounter Results * CA ECHO DOPPLER COMPLETE (09/15/2023 1:26 PM EDT) Anatomical Region Laterality Modality Other 09/15/2023 1:26 PM EDT Narrative 09/15/2023 1:27 [place] [address] Cardiology Report Signed Patient: ELMER MENESES MR#: [id number] : 1965 Acct:[id number] Age/Sex: 57 / F ADM Date: 09/15/23 Loc: CARD Attending Dr: MALIK NI Ordering Physician: MALIK NI Date of Service: 09/15/23 Procedure(s): CA echo doppler complete Accession Number(s): [id number] cc: Jenny Borrego SED HIGH SCHOOL TEACHER; MALIK NI Patient Name: ELMER MENESES MR#: [id number] : 1965 Exam Date: 09/15/2023 Ordering Doctor: [...] Signed By: 09/15/23 1327 DD/ 1326 TD/TT: Wet Pan Operator: Procedure Note Radiology, Radiologist, MD - 09/15/2023 [place] [address] Cardiology Report Signed Patient: ELMER MENESES MMR#: [id number] : 1965Acct:[id number] Age/Sex: 57 / FADM Date: 09/15/23 Loc: CARD Attending Dr: MALIK NI Ordering Physician: MALIK NI Date of Service: 09/15/23 Procedure(s): CA echo doppler complete Accession Number(s): [id number] cc: Jenny Borrego NP; MALIK NI Patient Name: ELMER MENESES MR#: [id number] : 1965 Exam Date: 09/15/2023 Ordering Doctor: [...] M.D. Signed By:09/15/23 1327 DD/ 1326 TD/TT: Wet Pan Operator: us Generic External Data Provider [facility] Final Result * (ABNORMAL) ALL GAMMA GLUTAMYL TRANSPEPTIDASE (09/15/2023 7:40 AM EDT) GAMMA GLUTAMYL TRANSPEPTIDASE 65(H) 8 - 55 U/L [facility] 09/15/2023 7:40 AM EDT 09/15/2023 6:29 PM EDT Narrative [facility] - 09/15/2023 6:45 PM EDT us Jenny Borrego NP [facility] Final Result [facility] documented in this encounter Visit Diagnoses Not on filedocumented in this encounter Additional Health Concerns Assessment Noted Time PHQ-9 Depression Total Score: 4 03/24/19 24 5:00 PM EST documented as of this encounter Care Teams Technician Inventory Specialist Relationship Specialty Start Date End Date Ludin Blanchard MD [address] [place] [address] PCP - General Family Medicine 04/28/23 Jenny Borrego NP [address] [place] [address] Nurse Practitioner Family Medicine 12/27/22 documented as of this encounter
--- OUTSIDE RECORDS SUMMARY | 2024-09-28 08:51 | XMS_ITS | Encounter Summary ---
Author Organization [facility] Address [address] [place] [address] Care Team Providers Care Regional Flatbed Truck Driver Name Role Phone Jenny Borrego ASSISTANT FILM EDITOR Unavailable [phone] Ludin Blanchard MD Primary Care Provider Encounter Details Date Type Department Care Team (Late st Contact Info) Description 09/24/2024 Abstract [facility] [address] [place] [address] Jenny Borrego NP [address] [place] [address] Social History Tobacco Use Types Packs/Day Years [...] How often do you attend chur or yazidism services? Never 03/24/2023 Do you belong to any clubs o r organizations such as anabaptist groups, unions, fraternal or athletic groups, or [...] Patient Health Questionnaire-2 Score 1 04/17/2024 [facility] of Occupat ional Health - Occupational [...] place to sleep or slept in a care home (including now)? No 03/24/2023 Comments Unknown [...] Procedure [facility] [address] [facility] [place] [address] 10/09/2024 10:15 AM EDT [facility] [address] [place] [address] Jr. Elvis Beal, DO [address] [facility] [address] [place] [address] 10/16/2024 11:30 AM EDT [facility] [place] [address] Jr. Elvis Beal, DO [address] [place] [address] 10/16/2024 1:40 PM EDT Office Visit [facility] [address] [place] [address] Jenny Borrego, ZELALEM [address] [place] [address] 04/18/2025 11:00 AM EST Office Visit [facility] [address] [place] [address] Jenny Borrego, ZELALEM [address] [place] [address] documented as of this encounter Visit Diagnoses Not on filedocumented in this encounter Additional Health Concerns Assessment Noted Time PHQ-9 Depression Total Score: 4 04/17/19 25 1:00 PM EST documented as of this encounter Care Teams Regional Flatbed Truck Driver Relationship Specialty Start Date End Date Ludin Blanchard MD [address] [place] [address] PCP - General Family Medicine 04/28/23 Jenny Borrego NP [address] [place] [address] Nurse Practitioner Family Medicine 12/27/22 documented as of this encounter
--- OUTSIDE RECORDS SUMMARY | 2024-09-28 08:51 | XMS_ITS | Encounter Summary ---
Author Organization [facility] Address [address] [place] [address] Care Team Providers Care Patient Service Associate Name Role Phone Ludin Blanchard MD Primary Care Provider [phone] Jenny Borrego NP Unavailable [phone] Ludin Blanchard MD Primary Care Provider [phone] Encounter Details Date Type Department Care Team (Late st Contact Info) Description 01/10/2023 Abstract [facility] [address] [place] [address] [place] [address] Deonna Finn NP Social History Tobacco Use [...] [facility] [address] [place] [address] 10/09/2024 10:15 AM EDT Office Visit [facility] [address] [place] [address] Jr. Elvis Beal, DO [address] [facility] [address] [place] [address] 10/16/2024 11:30 AM EDT Office Visit [facility] [address] [place] [address] Jr. Elvis Beal, DO [address] [place] [facility] [address] [place] [address] 10/16/2024 1:40 PM EDT Office Visit [facility] [address] [place] [address] Jenny Borrego NP [address] [place] [address] 04/18/2025 11:00 AM EST Office Visit [facility] [address] [place] [address] Jenny Borrego NP [address] [place] [address] documented as of this encounter Visit Diagnoses Not on filedocumented in this encounter Care Teams Patient Service Associate Relationship Specialty Start Date End Date Ludin Blanchard MD PCP - General Family Medicine 10/06/22 04/27/23 Ludin Blanchard MD [address] [place] [address] PCP - General Family Medicine 04/28/23 Jenny Borrego NP [address] [place] [address] Nurse Practitioner Family Medicine 12/27/22 documented as of this encounter
--- OUTSIDE RECORDS SUMMARY | 2024-09-28 08:51 | XMS_ITS | Clinical Summary ---
Author Organization [facility] Address [address] [place] [address] Care Team Providers Care Dye Weigher Name Role Phone Jenny Borrego MD Primary Care Provider [phone] Allergies No known active allergies Medications DULoxetine (Cymbalta) [address] capsule Take by mouth in the morning. 023 Active ferrous sulfate 325 (65 Fe) MG tablet Take 1 tablet by mouth in the morning. 023 Active NovoLOG Mix 70-30FlexPen U-100 100 unit/mL (70-30) injection INJECT 70 UNITS SUBCUTANEOUSLY TWICE A DAY 023 Active methocarbamol (Robaxin) 500 mg tablet Take 500 mg by mouth in the morning and at bedtime. 023 Active atorvastatin (Lipitor) 80 mg tabletIndicatio ns:Disorder of arteries and arterioles, unspecified TAKE 1 TABLET BY MOUTH EVERY DAY 90 tablet 3 023 Active furosemide (Lasix) 40 mg tabletIndicatio ns:Edema, unspecified type Take 1 tablet (40 mg) by mouth in the morning. 90 tablet 3 023 Active Additional Information Patient not taking.Reported on 04/27/2024 dapagliflozin propanediol (Farxiga) 10 mg Take 10 mg by mouth. Active cetirizine (ZyrTEC) 10 mg tablet Take 10 mg by mouth in the morning. Active fexofenadine (Luz) 180 mg tablet fexofenadine 180 mg tablet TAKE 1 TABLET BY MOUTH EVERY DAY Active pregabalin (Lyrica) 100 mg capsule Take 100 mg by mouth every 8 (eight) hours. Active pantoprazole (ProtoNix) 40 mg EC tablet Take 40 mg by mouth before breakfast. Do not crush, chew, or split. Active folic acid (Folvite) 1 mg tablet Take 1 mg by mouth in the morning. Active cyanocobalamin (Vitamin B-12) 50 mcg tablet Take 50 mcg by mouth in the morning. 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 Active rivaroxaban (Xarelto) 10 mg tabletIndicatio ns:History of deep vein thrombosis Take 1 tablet (10 mg) by mouth in the morning. 90 tablet 3 Active aspirin 81 mg chewable tabletIndicatio ns:PAD (peripheral artery disease) CHEW 1 TABLET (81 MG) IN THE MORNING 90 tablet 3 025 2025 Active aspirin 81 mg chewable tabletIndicatio ns:PAD (peripheral artery disease) Chew 1 tablet (81 mg) in the morning. 90 tablet 3 024 2024 Discontinued Active Problems Problem Noted Date Diagnosed Date [...] 04/27/2019 Morbid obesity 04/27/2019 Intermittent palpitations 04/27/2019 Encounters Date Type Department Care Team Description 09/07/2024 Refill [facility] at [place] [address] [place] [address] Elvis Benavides MD PAD (peripheral artery disease) (Primary Dx) from Last 3 Months Immunizations Immunization Administration Dates Next Due Influenza, injectable, MDCK, preservative free, quadrivalent 12/18/2021 Influenza, injectable, quadr ivalent, preservative free 02/25/2021,10/17/2018,11/23/2017,10/20,11/22/2016,11/06/2016 Influenza, seasonal, injectable 11/21/2020 Pneumococcal Polysaccharide PPV23 07/23/2016 Unspecified Sars-Cov-2 Vaccination 02/25/2021,,05/29/2020 Family History Medical History Relation Name Comments Coronary artery disease Father Diabetes Father Heart attack Maternal Grandfather Coronary artery disease Mother Diabetes Mother Heart attack Mother epilepsy Mother Relation Name Status Comments Father Maternal Grandfather Mother Social History Tobacco Use Types Packs/Day Years Used Date Smoking Tobacco: Every Day Cigarettes Smokeless Tobacco: Never Tobacco Cessation:Ready to Q uit: Not Asked; Counseling Given: Not Answered Alcohol Use Standard Drinks/Week Comments Not Currently 0 (1 standard drink = 0.6 oz pur e alcohol) [place] Safety & Environment Answer Date Rec orded Fear of Current or Ex-Partner Not on file Emotionally Abused Not on file 04/14/2023 Physically Abused Not on file 04/14/2023 Sexually Abused Not on file 04/14/2023 Physically or Sexually Abused Not on file Comments Unknown Sex and Gender Information Value Date Recorded Sex Assigned at Not on file Legal Sex Female 11:00 PM EDT Gender Identity Not on file Sexual Orientation Not on file Last Filed Vital Signs Vital Sign Reading Time Taken Comments Blood Pressure 121/63 04/27/2024 1:10 PM EST Pulse 73 04/27/2024 1:10 PM EST Temperature - - Respiratory Rate 21 10/19/2023 6:44 PM EDT Oxygen Saturation 95% 04/27/2024 1:10 PM EST Inhaled Oxygen Concentration - - Weight 117 kg (258 lb) 04/27/2024 1:10 PM EST Height 162.6 cm (5' 4 ) 04/27/2024 1:10 PM EST Body Mass Index 44.29 04/27/2024 1:10 PM EST Plan of Treatment Health Maintenance Due Date Last Done Comments CT Colonography 1965 Colonoscopy 1965 Colorectal Cancer Screening 1965 Diabetes: Hemoglobin A1C 1965 FIT-DNA 1965 FIT 1965 FOBT 1965 Medicare Annual Wellness (AWV) 1965 Sigmoidoscopy 1965 Diabetes: Retinopathy Screening 11/06/1975 Depression Screening 1977 Hepatitis B Vaccines (1 of 3 - 19+ 3-dose series) 1984 Pap Smear 1986 Cervical Cancer Screening 11/06/1995 HPV/Cotest 11/06/1995 Mammogram 2005 Pneumococcal Vaccine: Pediatrics (0 to 5 Years) and At-Risk Patients (6 to 64 Years) (2 of 2 - PCV) 07/23/2017 07/23/2016 COVID-19 Vaccine ( season) 2023 02/25/2021, 02/25/2021, 06/19/2020, Additional history exists Influenza Vaccine (#1) 2024 , 12/01/2022, 12/18/2021, Additional history exists Adult Tetanus 12/19/2033 12/20/2023 Zoster Vaccines Completed 02/17/2023, 12/01/2022 HIB Vaccines Aged Out No longer eligi ble based on patient's age to complete this topic HPV Vaccines Aged Out No longer eligi ble based on patient's age to complete this topic IPV Vaccines Aged Out No longer eligi ble based on patient's age to complete this topic Meningococcal B Vaccine Aged Out No l onger eligible based on patient's age to complete this topic Meningococcal Vaccine Aged Out No mikki neel eligible based on patient's age to complete this topic Rotavirus Vaccines Aged Out No longer eligible based on patient's age to complete this topic Insurance [address] [place] [address] [facility] Care Teams Dye Weigher Relationship Specialty Start Date End Date Jenny Borrego MD [facility] [place] [address] PCP - General Nurse Practitioner 08/18/23
--- OUTSIDE RECORDS SUMMARY | 2024-09-28 08:51 | XMS_ITS | Encounter Summary ---
Author Organization [facility] Address [address] [place] [address] Care Team Providers Care Behavior Management Specialist Name Role Phone Dawit Mendosa MD Primary Care Provider [phone] Jenny Borrego MD Primary Care Provider [phone] Reason for Visit * Reason Comments Med Refill Encounter Details Date Type Department Care Team (Late st Contact Info) Description 11/30/2022 Refill [facility] [address] [place] [address] Elvis Benavides MD [address] [facility] [address] [facility] [place] [address] Edema, unspecified type Social History Tobacco Use [...] type documented in this encounter Care Teams Behavior Management Specialist Relationship Specialty Start Date End Date Dawit Mendosa MD [address] [place] [address] PCP - General 05/31/22 08/17/23 Jenny Borrego MD [address] [place] [address] PCP - General Nurse Practitioner 08/18/23 documented as of this encounter
--- OUTSIDE RECORDS SUMMARY | 2024-09-28 08:51 | XMS_ITS | Encounter Summary ---
Author Organization [facility] Address [address] [place] [address] Care Team Providers Care Manager Servicing Name Role Phone Jenny Borrego PASSENGER REPRESENTATIVE Unavailable [phone] Ludin Blanchard MD Primary Care Provider [phone] Encounter Details Date Type Department Care Team (Late st Contact Info) Description 07/30/2024 Abstract [facility] [address] [place] [address] Jenny Borrego NP [address] [place] [address] Social History Tobacco Use Types Packs/Day Years [...] Recorded Patient Health Questionnaire-2 Score 1 04/17/2024 [facility] of Occupat ional Health - Occupational Stress [...] MICHAEL [facility] [address] [facility] [place] [address] 10/09/2024 10:15 AM EDT [facility] [address] [place] [address] Jr. Elvis Beal, DO [address] [facility] [address] [place] [address] 10/16/2024 11:30 AM EDT [facility] [place] [address] [place] [address] Jr. Elvis Beal, DO [address] [place] [address] 10/16/2024 1:40 PM EDT Office Visit [facility] [address] [place] [address] Jenny Borrego, [place] [address] [place] [address] 04/18/2025 11:00 AM EST Office Visit [facility] [address] [place] [address] Jenny Borrego, [place] [address] [place] [address] documented as of this encounter Visit Diagnoses Not on filedocumented in this encounter Additional Health Concerns Assessment Noted Time PHQ-9 Depression Total Score: 4 04/17/19 25 1:00 PM EST documented as of this encounter Care Teams Manager Servicing Relationship Specialty Start Date End Date Ludin Blanchard MD [address] [place] [address] PCP - General Family Medicine 04/28/23 Jenny Borrego NP [address] [place] [address] Nurse Practitioner Family Medicine 12/27/22 documented as of this encounter
--- OUTSIDE RECORDS SUMMARY | 2024-09-28 08:51 | XMS_ITS | Encounter Summary ---
Author Organization [facility] Address [address] [place] [address] Care Team Providers Care Director Of Respiratory Therapy Name Role Phone Jenny Borrego NP Unavailable [phone] Ludin Blanchard MD Primary Care Provider [phone] Encounter Details Date Type Department Care Team [...] often do you attend chur ch or taoist services? Never 03/24/2023 Do you belong to any clubs o r organizations such as holiness groups, unions, fraternal or athletic groups, or [...] [facility] [place] [facility] [address] [facility] [place] [address] 10/09/2024 10:15 AM EDT Office Visit [facility] [address] [place] [address] Jr. Elvis Beal, DO [address] [place] [address] [place] [address] 10/16/2024 11:30 AM EDT Office Visit [facility] [address] [place] [address] Jr. Elvis Beal, DO [address] [place] [address] [place] [address] 10/16/2024 1:40 PM EDT Office Visit [facility] [address] [place] [address] Jenny Borrego, [place]AL[place] [address] [place] [address] 04/18/2025 11:00 AM EST Office Visit [facility] [address] [place] [address] Jenny Borrego, [place] [address] [place] [address] documented as of this encounter Visit Diagnoses Not on filedocumented in this encounter Additional Health Concerns Assessment Noted Time PHQ-9 Depression Total Score: 4 04/17/19 25 1:00 PM EST documented as of this encounter Care Teams Director Of Respiratory Therapy Relationship Specialty Start Date End Date Ludin Blanchard MD [address] [place] [address] PCP - General Family Medicine 04/28/23 Jenny Borrego NP [address] [place] [address] Nurse Practitioner Family Medicine 12/27/22 documented as of this encounter
--- OUTSIDE RECORDS SUMMARY | 2024-09-28 08:51 | XMS_ITS | Clinical Summary ---
Author Organization [facility] Address [address] [place] [address] Care Team Providers Care Stockroom Worker Name Role Phone Deondre Roth DO, [...] mouth twice daily. 2 Active MV with Yzj-Hsvsusqp-Kp tein (CENTRUM SILVER) 0.4 mg-300 mcg- 250 mcg tab Take by mouth. 2 Active insulin 75/25 lispro protamine/lispr o units/mL (HUMALOG MIX 75-25,U-100,INS ULN) 100 units/mL susp as directed. 2 Active HYDROcodone-miguel taminophen (NORCO) 5-325 mg per tablet hydrocodone 5 mg-acetaminophen 325 mg tablet TAKE 1 TO 2 TABLETS BY MOUTH EVERY DAY AT BEDTIME NEEDED Active verofilx-hzo-lm tv-ZZ-azpgfm (CENTRUM SILVER WOMEN) 8 mg iron-400 mcg-300 [...] [place]iden 04/19/2022 Coronary artery disease invo lving algaaciq heart without angina pectoris 04/19/2022 Smoker 04/19/2022 Morbid obesity 04/19/2022 Other specified disorders of kidney and ureter 0 04/19/2022 Encounters Date Type Department Care Team Description 08/28/2024 2:30 PM EDT [facility] Urology [address] [address] Uri Pickens MD Other specified disorders of kidney and ureter (Primary Dx); Renal mass 08/26/2024 Travel 08/21/2024 9:48 AM EDT - 08/21/2024 11:59 PM EDT Hospital Encounter Radiology Pet CT [address] [place] [address] [place] [address] Other specified disorders of kidney and ureter [N28.89] Discharge Disposition: Home 08/21/2024 Results Follow-Up Urology [address] [address] Angie Mcclellan APRN.CNP 07/31/2024 Orders Only Urology [address] [address] Aj Cuellar PA Other specified disorders of [...] is lower risk 4 10/15/2022 Data from: https://www.neighborhoodatlas.medicine.[facility].edu/. Last address used for calculation [address] [place] [address] 10/15/2022 Comments Unknown Sex and Gender Information [...] any questions regarding this interpretation, please call [phone]. If you are unable to reach us at the number above, please feel free to contact [facility] eRadiology at [phone]. Narrative 08/21/2024 12:02 PM EDT * * *Final Report* * * DATE OF EXAM: Aug 21 2024 11:14AM [facility] 0533 - CT ABDOMEN W IVCON [...] images: No additional findings. Procedure Note Provider, [facility] [place] - 08/21/2024 * * *Final Report* * * DATE OF EXAM: Aug 21 2024 11:14AM [facility] 0533 - CT ABDOMEN W IVCON [...] any questions regarding this interpretation, please call [phone]. If you are unable to reach us at the number above, please feel free to contact [facility] at [phone]. us Uri Pickens MD CT-P[facility] Final Result * (ABNORMAL) CREATININE BLD (08/21/2024 9:49 AM EDT) Creatinine 1.08(H) 0.58 - 0.96 mg/dL 08/21/2024 10:30 AM EDT [facility] Estimated Glomerular Filtration Rate 60 >=60 mL/min/1.7 3m 08/21/2024 10:30 AM EDT [facility] Comment:Estimated Glomerular Filtration Rate (eGFR) [...] MD LABORATORY Final Result Performing Organization Address City/State/[facility] Co de Phone Number [facility] [address] [place] [address] from Last 3 Months Insurance [facility] MEDICARE Care Teams Stockroom Worker Relationship Specialty Start Date End Date Dawit Mendosa Sr., PCP - General Family Medicine 10/24/14
--- OUTSIDE RECORDS SUMMARY | 2024-09-28 08:52 | XMS_ITS | Encounter Summary ---
Author Organization [facility] Address [address] [place] [address] Care Team Providers Care Executive Asst Name Role Phone Deondre Roth, Dawit [place] Primary Care Provider + Source Comments In the event this information is protected by the Federal Confidentiality of Alcohol and Drug AbusePatient Records regulations: The Federal rules restrict any use of the information to criminally investigate or prosecute any alcohol or drug abuse patient.[facility] Encounter Details Date Type Department Care Team (Late st Contact Info) Description 04/20/2022 Get Medical Advice Urology [address] [place] [phone] Uri Pickens MD [address] [place] [address] Letter Social History Tobacco Use Types Packs/Day [...] ot on file 03/08/2022 Data from: https://www.neighborhoodatlas.medicine.[facility]/. Last address used for calculation [address] 03/08/2022 Comments Unknown Sex and Gender Information Value Date Recorded Sex Assigned at Female 07/30/2024 2:43 PM EDT Legal Sex Female 1:44 PM EDT Gender Identity Female 07/30/2024 2:43 PM EDT Sexual Orientation Not on file documented as of this encounter Plan of Treatment Not on file documented as of this encounter Visit Diagnoses Not on filedocumented in this encounter Care Teams Executive Asst Relationship Specialty Start Date End Date Dawit Mendosa Sr., DO PCP - General Family Medicine 10/24/14 documented as of this encounter
--- OUTSIDE RECORDS SUMMARY | 2024-09-28 08:52 | XMS_ITS | Encounter Summary ---
Author Organization [facility] Address [address] [place] [address] Care Team Providers Care Study Assistant Name Role Phone Deondre Roth, Dawit [place] Primary Care Provider + Source Comments In the event this information is protected by the Federal Confidentiality of Alcohol and Drug AbusePatient Records regulations: The Federal rules restrict any use of the information to criminally investigate or prosecute any alcohol or drug abuse patient.[facility] Encounter Details Date Type Department Care Team (Late st Contact Info) Description 05/08/2022 Get Medical Advice Urology [address] [place] [phone] Uri Pickens MD [address] [place] [address] Letter Social History Tobacco Use Types Packs/Day [...] N ot on file 03/08/2022 Data from: https://www.neighborhoodatlas.medicine.[facility]/. Last address used for calculation [address] 03/08/2022 Comments Unknown Sex and Gender Information Value Date Recorded Sex Assigned at Female 07/30/2024 2:43 PM EDT Legal Sex Female 1:44 PM EDT Gender Identity Female 07/30/2024 2:43 PM EDT Sexual Orientation Not on file documented as of this encounter Plan of Treatment Not on file documented as of this encounter Visit Diagnoses Not on filedocumented in this encounter Care Teams Study Assistant Relationship Specialty Start Date End Date Dawit Mendosa Sr., DO PCP - General Family Medicine 10/24/14 documented as of this encounter
--- OUTSIDE RECORDS SUMMARY | 2024-09-28 08:52 | XMS_ITS | Encounter Summary ---
Author Organization [facility] Address [address] [place] [address] Care Team Providers Care Silo Painter Name Role Phone Jenny Borrego PROFESSIONAL ORGANIZER Unavailable [phone] Ludin Blanchard MD Primary Care Provider Encounter Details Date Type Department Care Team (Late st Contact Info) Description 08/27/2024 Abstract [facility] [address] [place] [address] Jenny Borrego NP [address] [place] [address] Social History Tobacco Use Types Packs/Day Years [...] How often do you attend chur or mormonism services? Never 03/24/2023 Do you belong to [...] Recorded Patient Health Questionnaire-2 Score 1 04/17/2024 [facility] of Occupat ional Health - Occupational [...] place to sleep or slept in a fpc (including now)? No 03/24/2023 Comments Unknown Sex [...] MICHAEL [facility] [address] [facility] [place] [address] 10/09/2024 10:15 AM EDT [facility] [address] [place] [address] Jr. Elvis Beal, DO [address] [facility] [address] [place] [address] 10/16/2024 11:30 AM EDT [facility] [place] [address] Jr. Elvis Beal, DO [address] [place] [address] 10/16/2024 1:40 PM EDT Office Visit [facility] [address] [place] [address] Jenny Borrego, [place] [address] [place] [address] 04/18/2025 11:00 AM EST Office Visit [facility] [address] [place] [address] Jenny Borrego, [place]ELALEM [address] [place] [address] documented as of this encounter Visit Diagnoses Not on filedocumented in this encounter Additional Health Concerns Assessment Noted Time PHQ-9 Depression Total Score: 4 04/17/19 25 1:00 PM EST documented as of this encounter Care Teams Silo Painter Relationship Specialty Start Date End Date Ludin Blanchard MD [address] [place] [address] PCP - General Family Medicine 04/28/23 Jenny Borrego NP [address] [place] [address] Nurse Practitioner Family Medicine 12/27/22 documented as of this encounter
--- OUTSIDE RECORDS SUMMARY | 2024-09-28 08:52 | XMS_ITS | Encounter Summary ---
Author Organization [facility] Address [address] [place] [address] Care Team Providers Care Pathology Manager Name Role Phone Jenny Borrego OUTSIDE PHYSICAL DAMAGE APPRAISER Unavailable [phone] Ludin Blanchard MD Primary Care Provider Encounter Details Date Type Department Care Team (Late st Contact Info) Description 09/27/2023 Clinisync Result Encounter [facility] External Department Unsolicited Jenny Borrego, ZELALEM [address] [place] [address] Social History Tobacco Use Types Packs/Day Years [...] Score 2 06/23/2023 [facility] Answer Date [...] [facility] [address] [place] [address] 10/09/2024 10:15 AM EDT Office Visit [facility] [place] [address] [place] [phone] Jr. Elvis Beal, DO [address] [facility] [address] [place] [address] 10/16/2024 11:30 AM EDT Office Visit [facility] [address] [facility] [place] [address] Jr. Elvis Beal, DO [address] [place] [address] [place] [address] 10/16/2024 1:40 PM EDT Office Visit [facility] [address] [place] [address] Jenny Borrego NP [address] [place] [phone] 04/18/2025 11:00 AM EST Office Visit [facility] [address] [place] [address] Jenny Borrego NP [address] [place] [phone] documented as of this encounter Procedures Procedure Name Priority Date/Time Associated Diagnosis Comments US RIGHT UPPER QUADRANT 09/27/2023 8:40 AM EDT documented in this encounter Results * US RIGHT UPPER QUADRANT (09/27/2023 8:40 AM EDT) Anatomical Region Laterality Modality Other 09/27/2023 8:40 AM EDT Narrative 09/27/2023 8:42 AM EDT [address] [address] Ultrasound Report Signed Patient: ELMER MENESES MR#: [id number] : 1965 Acct:[id number] Age/Sex: 57 / F ADM Date: 09/26/23 Loc: US Attending Dr: Jenny Borrego OUTSIDE PHYSICAL DAMAGE APPRAISER Ordering Physician: Jenny Borrego NP Date of Service: 09/26/23 Procedure(s): US right upper quadrant Accession Number(s): [id number] cc: Jenny Borrego NP [address] [address] Patient Name: ELMER MENESES MRN: [id number] date: 1965 Sex: F Assigned Patient Location: US Current Patient Location: Accession/Order Number: [id number] Exam Date: 09/26/2023 10:10 Report Date: 09/27/2023 [...] Ken M.D. Signed By: 09/27/2342 DD/ TD/TT: Claim Inspector: Procedure Note Radiology, Radiologist, MD - 09/27/2023 [place] [address] Ultrasound Report Signed Patient: ELMER MENESES [facility]#: [id number] : 1965Acct:[id number] Age/Sex: 57 / FADM Date: 09/26/23 Loc: US Attending Dr: Jenny Borrego NP Ordering Physician: Jenny Borrego NP Date of Service: 09/26/23 Procedure(s): US right upper quadrant Accession Number(s): [id number] cc: Jenny Borrego NP [address] [address] Patient Name: ELMER MENESES MRN: [id number] date: 1965 Sex: F Assigned Patient Location: Current Patient Location: Accession/Order Number: [id number] Exam Date: 09/26/2023 10:10 Report Date: 09/27/2023 [...] Ken M.D. Signed By:09/27/23 0842 DD/ TD/TT: Claim Inspector: Jenny Borrego NP [facility] Final Result documented in this encounter Visit Diagnoses Not on filedocumented in this encounter Additional Health Concerns Assessment Noted Time PHQ-9 Depression Total Score: 4 03/24/19 24 5:00 PM EST documented as of this encounter Care Teams Pathology Manager Relationship Specialty Start Date End Date Ludin Blanchard MD [address] [place] [phone] PCP - General Family Medicine 04/28/23 Jenny Borrego NP [address] [place] [address] Nurse Practitioner Family Medicine 12/27/22 documented as of this encounter
--- OUTSIDE RECORDS SUMMARY | 2024-09-28 08:52 | XMS_ITS | Encounter Summary ---
Author Organization [facility] Address [address] [place] [address] Care Team Providers Care Java Front End Web Developer Name Role Phone Jenny Borrego HAULAGE ENGINE OPERATOR Unavailable [phone] Ludin Blanchard MD Primary Care Provider Encounter Details Date Type Department Care Team (Late st Contact Info) Description 07/11/2023 Orders Only [facility] [address] [place] [address] Jenny Borrego, ZELALEM [address] [place] [address] Social History Tobacco Use Types [...] How often do you attend chur or baptist services? Never 03/24/2023 Do you belong to any clubs o r organizations such as presybeterian groups, unions, fraternal or athletic groups, or [...] Recorded Patient Health Questionnaire-2 Score 2 06/23/2023 [facility] - [...] Procedure [facility] [address] [facility] [place] [address] 10/09/2024 10:15 AM EDT [facility] Visit [facility] [address] [place] [phone] Jr. Elvis Beal, DO [address] [facility] [address] [place] [address] 10/16/2024 11:30 AM EDT Office Visit [facility] [place] [address] [place] [phone] Jr. Elvis Beal, DO [address] [place] [address] 10/16/2024 1:40 PM EDT Office Visit [facility] [address] [place] [address] Jenny Borrego NP [address] [place] [address] 04/18/2025 11:00 AM EST Office Visit [facility] [address] [place] [address] Jenny Borrego NP [address] [place] [address] documented as of this encounter Procedures [...] documented as of this encounter Care Teams Java Front End Web Developer Relationship Specialty Start Date End Date Ludin Blanchard MD [address] [place] [address] PCP - General Family Medicine 04/28/23 Jenny Borrego NP [address] [place] [address] Nurse Practitioner Family Medicine 12/27/22 documented as of this encounter
--- OUTSIDE RECORDS SUMMARY | 2024-09-28 08:52 | XMS_ITS | Encounter Summary ---
Author Organization [facility] Address [address] [place] [address] Care Team Providers Care Technical Cable Jointer Name Role Phone Jenny Borrego RESAW TAILER Unavailable [phone] Ludin Blanchard MD Primary Care Provider Encounter Details Date Type Department Care Team (Late st Contact Info) Description 11/21/2023 Orders Only [facility] [address] [place] [address] Jenny Borrego, ZELALEM [address] [place] [address] Social History Tobacco Use Types Packs/Day Years [...] How often do you attend chur or mandaeism services? Never 03/24/2023 Do you belong to any clubs o r organizations such as religious groups, unions, fraternal or athletic groups, or [...] Recorded Patient Health Questionnaire-2 Score 2 06/23/2023 [facility] - Occupational [...] place to sleep or slept in a chcf (including now)? No 03/24/2023 Comments Unknown Sex [...] [address] [facility] [place] [address] 10/09/2024 10:15 AM EDT Office Visit [facility] [address] [place] [phone] Jr. Elvis Beal, DO [address] [facility] [address] [place] [address] 10/16/2024 11:30 AM EDT Office Visit [facility] [place] [address] [place] [phone] Jr. Elvis Beal, DO [address] [place] [address] [place] [address] 10/16/2024 1:40 PM EDT Office Visit [facility] [address] [place] [address] Jenny Borrego NP [address] [place] [address] 04/18/2025 11:00 AM EST Office Visit [facility] [address] [place] [address] Jenny Borrego NP [address] [place] [address] documented as of this encounter Procedures [...] documented as of this encounter Care Teams Technical Cable Jointer Relationship Specialty Start Date End Date Ludin Blanchard MD [address] [place] [address] PCP - General Family Medicine 04/28/23 Jenny Borrego NP [address] [place] [address] Nurse Practitioner Family Medicine 12/27/22 documented as of this encounter
--- OUTSIDE RECORDS SUMMARY | 2024-09-28 08:52 | XMS_ITS | Encounter Summary ---
Author Organization [facility] Address [address] [place] [address] Care Team Providers Care Financial Director Name Role Phone Deondre Roth, Dawit [place] Primary Care Provider + Source Comments In the event this information is protected by the Federal Confidentiality of Alcohol and Drug AbusePatient Records regulations: The Federal rules restrict any use of the information to criminally investigate or prosecute any alcohol or drug abuse patient.[facility] Encounter Details Date Type Department Care Team (Late st Contact Info) Description 05/20/2022 Get Medical Advice Urology [address] [phone] Uri Pickens MD [address] [place] [address] Letter Social History Tobacco Use Types Packs/Day [...] N ot on file 03/08/2022 Data from: https://www.neighborhoodatlas.medicine.[facility]/. Last address used for calculation [address] 03/08/2022 Comments Unknown Sex and Gender Information Value Date Recorded Sex Assigned at Female 07/30/2024 2:43 PM EDT Legal Sex Female 1:44 PM EDT Gender Identity Female 07/30/2024 2:43 PM EDT Sexual Orientation Not on file documented as of this encounter Plan of Treatment Not on file documented as of this encounter Visit Diagnoses Not on filedocumented in this encounter Care Teams Financial Director Relationship Specialty Start Date End Date Dawit Mendosa Sr., DO PCP - General Family Medicine 10/24/14 documented as of this encounter
--- OUTSIDE RECORDS SUMMARY | 2024-09-28 08:52 | XMS_ITS | Encounter Summary ---
Author Organization [facility] Address [address] [place] [address] Care Team Providers Care Solution Manager Name Role Phone Deondre Roth, Dawit [place] Primary Care Provider + Source Comments In the event this information is protected by the Federal Confidentiality of Alcohol and Drug AbusePatient Records regulations: The Federal rules restrict any use of the information to criminally investigate or prosecute any alcohol or drug abuse patient.[facility] Encounter Details Date Type Department Care Team (Late st Contact Info) Description 04/21/2022 Get Medical Advice Urology [address] [phone] Uri Pickens MD [address] [place] [address] Letter Social History Tobacco Use Types Packs/Day [...] N ot on file 03/08/2022 Data from: https://www.neighborhoodatlas.medicine.[facility]/. Last address used for calculation [address] 03/08/2022 Comments Unknown Sex and Gender Information Value Date Recorded Sex Assigned at Female 07/30/2024 2:43 PM EDT Legal Sex Female 1:44 PM EDT Gender Identity Female 07/30/2024 2:43 PM EDT Sexual Orientation Not on file documented as of this encounter Plan of Treatment Not on file documented as of this encounter Visit Diagnoses Not on filedocumented in this encounter Care Teams Solution Manager Relationship Specialty Start Date End Date Dawit Mendosa Sr., DO PCP - General Family Medicine 10/24/14 documented as of this encounter
--- OUTSIDE RECORDS SUMMARY | 2024-09-28 08:52 | XMS_ITS | Clinical Summary ---
Author Organization [facility] Address [address] [place] [phone] Phone Care Team Providers Care Video Arcade Manager Name Role Phone Unavailable Primary Care Provider [...]
[2024-09-28 09:09] LABS: Hematocrit 44.7 % (36.0-48.0); Hemoglobin 14.4 g/dL (12.0-16.0); Immature Granulocytes Abs Auto 0.14 10^3/uL (0.00-0.03); Immature Granulocytes Pct Auto 1.1 % (0.0-0.5); Lymphocytes Absolute Auto 2.4 10^3/uL (1.2-3.8); Mean Corpuscular HGB Conc 32.2 g/dL (29.9-35.2); Mean Corpuscular Hemoglobin 29.9 pg (26.7-34.0); Mean Corpuscular Volume 92.7 fL (81.0-99.0); Platelet Count 173 10^3/uL (150-450); Red Blood Count 4.82 10^6/uL (4.20-5.40); White Blood Count 12.3 10^3/uL (4.0-11.0)
[2024-09-28 09:19] LABS: Glucose Urine UA >=1000 mg/dL (NEGATIVE)
[2024-09-28 09:38] LABS: Alanine Aminotransferase 26 U/L (14-59); Albumin Globulin Ratio 0.8; Albumin Level 3.1 g/dL (3.4-5.0); Alkaline Phosphatase 183 U/L (46-116); Anion Gap 10.2; Aspartate Amino Transferase 14 U/L (15-37); Blood Urea Nitrogen 26.0 mg/dL (7.0-18.0); Calcium 8.6 mg/dL (8.5-10.1); Carbon Dioxide 30.7 mmol/L (21.0-32.0); Chloride 104 mmol/L (98-107); Cholesterol 84 mg/dL (<=200); Estimated GFR (African America 54 (>=60 mL/min/1.73m^2); Estimated GFR (Non-African Ame 44 (>=60 mL/min/1.73m^2); Globulin 4.1 g/dL; Glucose 178 mg/dL (74-106); HDL Cholesterol 35 mg/dL (40-60); Potassium 4.9 mmol/L (3.5-5.1); Sodium 140 mmol/L (136-145); Total Protein 7.2 g/dL (6.4-8.2); Triglycerides 93 mg/dL (<=150); VLDL CHOLESTEROL 18.6 mg/dL
== END 2024-09-28 08:46 | disposition home or self-care (01) ==
LOC: LAB 08:46
PROVIDERS: PCP Nurse Practitioner; Visit Provider Nurse Practitioner
DX: G47.33 Obstructive sleep apnea (adult) (pediatric) (principal); K21.9 Gastro-esophageal reflux disease without esophagitis; Z72.0 Tobacco use; E11.40 Type 2 diabetes mellitus with diabetic neuropathy, unspecified; Z79.4 Long term (current) use of insulin; I73.9 Peripheral vascular disease, unspecified; I10 Essential (primary) hypertension; E66.813 Obesity, class 3; Z68.42 Body mass index [BMI] 45.0-49.9, adult; E66.01 Morbid (severe) obesity due to excess calories; E11.9 Type 2 diabetes mellitus without complications
CPT/HCPCS: 36415; 80053; 80061; 81003; 82043; 82570; 85025

== ENCOUNTER 2024-11-06 13:58 | Outpatient (RCR) | payer MEDICARE, SELFPAY | END 2024-11-20 12:57 | disposition home or self-care (01) | LOC: PT 13:58 | PROVIDERS: PCP Nurse Practitioner; Visit Provider Orthopaedic Surgery | DX: M24.812 Other specific joint derangements of left shoulder, not elsewhere classified (principal) | CPT/HCPCS: 97010; 97035; 97140; 97162; G0283 ==